=== PATIENT | female | born 1965 | race Caucasian/White ===

== ENCOUNTER 2016-07-15 17:33 | Inpatient (IN) | payer MEDICAID ==
[~2016-07-15] VITALS: Ht 170.2 cm; Wt 141.5 kg
[~2016-07-15 17:33] MED LIST: ALPR.25 PO; AMIT50TA3 PO; AMLO10 PO; ASPI81TA11 PO; ATOR1TAB18 PO; BUME1TAB26 PO; CARV25TA PO; CEPH-460 PO; DRIS50002 PO; FAMO1TAB73 PO; FERR325T PO; GABA300C5 PO; GLIP-158 PO; HUMALOG SQ; HYDR50TA15 PO; LANTUS2P SQ; NITR1SUB3 SL; OXYGENTANK NAS.CANULA
[2016-07-15 17:36] VITALS: BP 181/93; PULSE 80; RESP 16; TEMP 98; O2SAT 95
[2016-07-15] MEDS ORDERED: SODIUM CHLORIDE 0.9% FLUSH 5 ML FLUSH IVF PRN (19:00)
--- NOTE | 2016-07-15 19:05 | PD ---
HPI Chief Complaint: Cardiac Complaint Time Seen by Provider: 19:01 Travel History International Travel<30 days: No Contact w/Intl Traveler<30days: No Traveled to known affect area: No History of Present Illness HPI Patient comes in for evaluation of increasing dyspnea on exertion and swelling in her lower extremities that she feels is going into her abdomen. Patient states she is taking medications as prescribed but is not making as much urine over the past several days and has run out of some of her meds. Patient states she does have intermittent chest pain with this. 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 Patient does not have a primary care doctor locally. Patient reports she has gained approximately 50 pounds since being discharged from the hospital month ago PFSH Past Medical History Hx Anticoagulant Therapy: Yes Cardiovascular Problems: Yes (chf) High Cholesterol: Yes Diabetes: Yes Hypertension: Yes Immunizations Current: No Renal Failure: Yes (d/t dye for cardiac stent insertions) Menopausal: Yes : 3 Para: 3 Miscarriage: 0 Past Surgical History Cardiac Surgery: Yes (STENTS ) Section: Yes Social History Alcohol Use: No Tobacco Use: No Substance Use: No Allergies-Medications (Allergen,Severity, Reaction): Coded Allergies: Lyrica (Verified Allergy, Severe, Anaphylaxis, 07/15/16) Reported Meds & Prescriptions Reported Meds & Active Scripts Active Keflex (Cephalexin) 500 Mg Cap 500 Mg PO Q8H Bumex (Bumetanide) 1 Mg Tab 1 Mg PO BID Ferrous Sulfate 325 Mg Tab 325 Mg PO BID Norvasc (Amlodipine Besylate) 10 Mg Tab 10 Mg PO DAILY Oxygen tank (Oxygen) 1 Ea Tank 2 Liter GERRY.CANULA CONTINUOUS Oxygen Concentrator Portable Gaseous 2 L/min via Nasal Cannula Continuous For 99 months Reported Humalog Inj (Insulin Human Lispro) 1,000 Unit/10 Ml Vial 12 Units SQ BID Lantus Inj (Insulin Glargine) 1,000 Unit/10 Ml Vial 40 Units SQ DAILYAC Pepcid (Famotidine) 40 Mg Tab 40 Mg PO DAILY Nitroglycerin SL (Nitroglycerin) 0.4 Mg Subl 0.4 Mg SL DIRECTED PRN ONE TABLET UNDER THE TONGUE NEEDED FOR CHEST PAIN, MAY REPEAT EVERY FIVE MINUTES FOR A TOTAL OF 3 DOSES OR CALL 911 IF NO RELIEF Hydralazine (Hydralazine HCl) 50 Mg Tab 50 Mg PO TID Take with a meal Gabapentin 300 Mg Cap 300 Mg PO TID Atorvastatin (Atorvastatin Calcium) 80 Mg Tab 80 Mg PO HS Glipizide XL (Glipizide) 2.5 Mg Paula 2.5 Mg PO DAILY Take with breakfast or first main meal of the day Amitriptyline (Amitriptyline HCl) 50 Mg Tab 50 Mg PO HS Carvedilol 25 Mg Tab 25 Mg PO BID Xanax (Alprazolam) 0.25 Mg Tab 0.25 Mg PO BID PRN Aspirin EC (Aspirin) 81 Mg Tabdr 81 Mg PO DAILY Drisdol (Ergocalciferol) 50,000 Unit Cap 50,000 Units PO Q7D ON TUESDAYS Review of Systems Except as stated in HPI: all other systems reviewed are Neg Physical Exam Narrative GENERAL: Well-developed, overly nourished, in no acute distress, and non-ill appearing. SKIN: Warm and dry. HEAD: Atraumatic. Normocephalic. EYES: Pupils equal and round. EOMI. No scleral icterus. No injection or drainage. ENT: No nasal bleeding or discharge. Mucous membranes pink and moist. NECK: Trachea midline. Supple. No nuclear rigidity. CARDIOVASCULAR: Regular rate and rhythm. No murmur appreciated. RESPIRATORY: No accessory muscle use. No respiratory distress. Clear to auscultation. Breath sounds equal bilaterally. GASTROINTESTINAL: Abdomen soft, non-tender, nondistended. Hepatic and splenic margins not palpable. Normal bowel sounds 4. No pulsatile mass. MUSCULOSKELETAL: No obvious deformities. No clubbing. No cyanosis. 3+ pitting edema bilateral lower. Full range of motion. NEUROLOGICAL: Awake and alert. No obvious cranial nerve deficits. Motor grossly within normal limits. Normal speech. PSYCHIATRIC: Appropriate mood and affect; insight and judgment normal. Data Data Last Documented VS Vital Signs Date Time Temp Pulse Resp B/P Pulse Ox O2 Delivery O2 Flow Rate FiO2 07/15/16 17:36 98.0 80 16 181/93 95 Orders Complete Blood Count With Diff (07/15/16 18:59) Comprehensive Metabolic Panel (07/15/16 18:59) B-Type Natriuretic Peptide (07/15/16 18:59) Act Partial Throm Time (Ptt) (07/15/16 18:59) Prothrombin Time / Inr (Pt) (07/15/16 18:59) Ckmb (Isoenzyme) Profile (07/15/16 18:59) Troponin I (07/15/16 18:59) Iv Access Insert/Monitor (07/15/16 18:59) Electrocardiogram (07/15/16 18:59) Ecg Monitoring (07/15/16 18:59) Oximetry (07/15/16 18:59) Oxygen Administration (07/15/16 18:59) Chest, Single Ap (07/15/16 18:59) Sodium Chloride 0.9% Flush (Ns Flush) (07/15/16 19:00) Magnesium (Mg) (07/15/16 19:02) CKMB (07/15/16 19:15) CKMB% (07/15/16 19:15) Bumetanide Inj (Bumex Inj) (07/15/16 20:30) Admit Order (Ed Use Only) (07/15/16 20:40) Labs Laboratory Tests Test 07/15/16 19:15 White Blood Count 5.1 TH/MM3 Red Blood Count 4.67 MIL/MM3 Hemoglobin 10.6 GM/DL Hematocrit 33.6 % Mean Corpuscular Volume 72.0 FL Mean Corpuscular Hemoglobin 22.7 PG Mean Corpuscular Hemoglobin 31.5 % Concent Red Cell Distribution Width 19.6 % Platelet Count 240 TH/MM3 Mean Platelet Volume 9.3 FL Neutrophils (%) (Auto) 59.9 % Lymphocytes (%) (Auto) 20.6 % Monocytes (%) (Auto) 10.4 % Eosinophils (%) (Auto) 7.8 % Basophils (%) (Auto) 1.3 % Neutrophils # (Auto) 3.1 TH/MM3 Lymphocytes # (Auto) 1.1 TH/MM3 Monocytes # (Auto) 0.5 TH/MM3 Eosinophils # (Auto) 0.4 TH/MM3 Basophils # (Auto) 0.1 TH/MM3 CBC Comment AUTO DIFF Differential Comment AUTO DIFF CONFIRMED Platelet Estimate NORMAL Platelet Morphology Comment NORMAL Ovalocytes 1+ Prothrombin Time 11.2 SEC Prothromb Time International 1.0 RATIO Ratio Activated Partial 25.9 SEC Thromboplast Time Sodium Level 141 MEQ/L Potassium Level 4.3 MEQ/L Chloride Level 107 MEQ/L Carbon Dioxide Level 25.2 MEQ/L Anion Gap 9 MEQ/L Blood Urea Nitrogen 27 MG/DL Creatinine 2.94 MG/DL Estimat Glomerular Filtration 17 ML/MIN Rate Random Glucose 136 MG/DL Calcium Level 7.8 MG/DL Magnesium Level 2.2 MG/DL Total Bilirubin 0.4 MG/DL Aspartate Amino Transf 16 U/L (AST/SGOT) Alanine Aminotransferase 16 U/L (ALT/SGPT) Alkaline Phosphatase 149 U/L Total Creatine Kinase 235 U/L Creatine Kinase MB 4.6 NG/ML Creatine Kinase MB % 2.0 % Troponin I 0.11 NG/ML B-Type Natriuretic Peptide 979 PG/ML Total Protein 7.3 GM/DL Albumin 2.6 GM/DL MDM Medical Decision Making Medical Screen Exam Complete: Yes Emergency Medical Condition: Yes Interpretation(s) EKG reviewed by Dr. Chan shows sinus rhythm with ventricular rate of 78. No STEMI. Differential Diagnosis Acute on Chronic CHF exacerbation, acute kidney injury, chronic kidney disease, other Narrative Course Patient was seen and examined. Labs were obtained and reviewed. Patient given a dose of Bumex. Discussed patient with Dr. Chan, who is in agreement with plan of care and disposition. Discussed all findings and plan of care with patient, who is agreeable for admission. Physician Communication Physician Communication [phone] Long, who is agreeable to admit the patient. Diagnosis Primary Impression: Acute exacerbation of CHF (congestive heart failure) Qualified Code: I50.9 - Acute on chronic congestive heart failure, unspecified congestive heart failure type Ezra Goddard Jul 15, 2016 19:05
[2016-07-15 19:37] LABS: AUTOMATED NEUTROPHIL # 3.1 TH/MM3 (1.8-7.7); BASOPHIL # 0.1 TH/MM3 (0-0.2); BASOPHIL % 1.3 % (0.0-2.0); EOSINOPHIL # 0.4 TH/MM3 (0-0.4); EOSINOPHIL % 7.8 % (0.0-4.0); HEMATOCRIT 33.6 % (35.0-46.0); LYMPH % 20.6 % (9.0-44.0); LYMPHOCYTE # 1.1 TH/MM3 (1.0-4.8); MEAN CORPUSCULAR HEMOGLOBIN 22.7 PG (27.0-34.0); MEAN CORPUSCULAR HGB CONC 31.5 % (32.0-36.0); MONO % 10.4 % (0.0-8.0); NEUT % 59.9 % (16.0-70.0); PLATELET COUNT 240 TH/MM3 (150-450); RED BLOOD COUNT 4.67 MIL/MM3 (4.00-5.30); RED CELL DISTRIBUTION WIDTH 19.6 % (11.6-17.2); WHITE BLOOD COUNT 5.1 TH/MM3 (4.0-11.0)
[2016-07-15 19:57] LABS: ALT (GPT) 16 U/L (10-53); ANION GAP 9 MEQ/L (5-15); AST (GOT) 16 U/L (15-37); BICARBONATE 25.2 MEQ/L (21.0-32.0); BLOOD UREA NITROGEN 27 MG/DL (7-18); CHLORIDE 107 MEQ/L (98-107); GLOMERULAR FILTRATION RATE 17 ML/MIN (>89); POTASSIUM 4.3 MEQ/L (3.5-5.1); SODIUM (NA) 141 MEQ/L (136-145)
[2016-07-15 19:59] LABS: ALKALINE PHOSPHATASE 149 U/L (45-117); CREATINE KINASE 235 U/L (26-192); TOTAL BILIRUBIN ADULT 0.4 MG/DL (0.2-1.0)
[2016-07-15 20:01] LABS: HEMO FLAGS AUTO DIFF
--- NOTE | 2016-07-15 20:01 | RADRPT ---
EXAM DATE/TIME: 07/15/2016 19:14 [facility] COMPARISON: No previous studies available for comparison. INDICATIONS : Short of breath. MEDICAL HISTORY : Hypercholesterolemia. Hypertension. Dyspnea. Renal failure. Diabetes. SURGICAL HISTORY : Coronary artery stent. ENCOUNTER: Initial ACUITY: 1 week PAIN SCORE: 0/10 LOCATION: Bilateral chest FINDINGS: A single view of the chest demonstrates minimal basilar density most characteristic of atelectasis. N o effusion. No pneumothorax. The heart size enlarged. CONCLUSION: 1. Basilar atelectasis. No significant effusion. No pneumothorax. George Choi MD on July 15, 2016 at 19:59 Board Certified Radiologist. This report was verified electronically.
[2016-07-15 20:02] LABS: OVALOCYTES 1+ (NORMAL); PLATELET ESTIMATE SMEAR NORMAL (NORMAL); PLATELET MORPHOLOGY NORMAL (NORMAL); SCAN/DIFF AUTO DIFF CONFIRMED
[2016-07-15 20:03] LABS: APTT (PATIENT) 25.9 SEC (24.3-30.1); PROTHROMBIN TIME - PATIENT 11.2 SEC (9.8-11.6)
[2016-07-15 20:15] LABS: CKMB 4.6 NG/ML (0.5-3.6)
[2016-07-15] MEDS ORDERED: BUMETANIDE INJ 1 MG/4 ML VIAL IV PUSH ONE (20:30)
[2016-07-15] MEDS ORDERED: SODIUM CHLORIDE 0.9% FLUSH 5 ML FLUSH FLUSH PRN (20:45)
[2016-07-15] MEDS ORDERED: NALOXONE HCL 0.4 MG/ML AMP IV PRN (20:45)
[2016-07-15] MEDS: SODIUM CHLORIDE 0.9% FLUSH 5 ML FLUSH FLUSH SCH (21:04)
[2016-07-15 21:33] VITALS: BP 160/78; PULSE 73; RESP 20; O2SAT 94
[2016-07-15 22:07] VITALS: BP 147/81; PULSE 70; RESP 20; O2SAT 95
[2016-07-15 22:48] VITALS: PULSE 77
[2016-07-16] VITALS (11 sets, daily range): BP systolic 138–180; BP diastolic 68–89; PULSE 68–88; RESP 18–20; TEMP 97.1–98.2; O2SAT 93–98
[2016-07-16] MEDS ORDERED: HEPARIN SODIUM - IV 10,000 UNITS/10 ML VIAL IV ONE (03:00)
[2016-07-16] MEDS ORDERED: BUMETANIDE INJ 1 MG/4 ML VIAL IV PUSH ONE (03:00)
[2016-07-16] MEDS: HEPARIN-D5W INJ 250 ML IV SCH (03:12)
--- NOTE | 2016-07-16 03:42 | HHI.HP ---
[facility] No Primary Care Physician Admission Diagnosis acute on chronic CHF exacerbation Diagnoses: Chief Complaint: dyspnea, lower extremity swelling Travel History International Travel<30 Days: No Contact w/Intl Traveler <30 Da: No Traveled to Known Affected Are: No History of Present Illness History taken from patient and ED physician. 50 y/o female with a history of chf, depression, htn, dm, and ckd presented to the ED with complaints of dyspnea, swelling in her lower extremities and a 50lb weight gain since last admission 06/03/16. Patient states she has gained 50 lbs in fluid from last admission. She is complaining of increased shortness of breath with intermittent chest pressure with no radiation or associated symptoms. She denies any nausea, vomiting or dizziness. She was admitted on 05/31/16 and diagnosed with CHF, discharged home on on Bumex. Patient states she recently ran out of meds and has not followed up with a doctor due to transportation issues. She does not know what medications she ran out of and does not remember the name of the medications she takes. She states she is not from here and her pcp is 2 hours away and she does not want her kids to take off work to take her to appointments. She is hoping to move back in 2 weeks or so. 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 Despite taking Bumex she states she has not had an increase in urination. Last admission 2d echo showed systolic dysfunction with EF 50%, she was seen by DR. Choudhury, and DR. Medley Review of Systems Constitutional: COMPLAINS OF: Weight gain Respiratory: COMPLAINS OF: Cough, Shortness of breath, DENIES: Sputum production Cardiovascular: COMPLAINS OF: Chest pain, Dyspnea on Exertion, Lower Extremity Edema Gastrointestinal: DENIES: Black stools, Bloody stools, Constipation, Diarrhea, Nausea, Vomiting Genitourinary: DENIES: Hematuria, Dysuria Musculoskeletal: DENIES: Back pain, Neck pain Integumentary: DENIES: Rash Hematologic/lymphatic: DENIES: Lymphadenopathy Immunologic/allergic: DENIES: Urticaria Neurologic: DENIES: Headache Past Family Social History Past Medical History CHF last echo 08/01/15 EF 50% Depression HTN DM Neuropathy Anemia CKD Past Surgical History Cardiac Cath 2015, was taken off Plavix at some point Reported Medications Reported Meds & Active Scripts Active Bumex (Bumetanide) 1 Mg Tab 1 Mg PO BID Ferrous Sulfate 325 Mg Tab 325 Mg PO BID Norvasc (Amlodipine Besylate) 10 Mg Tab 10 Mg PO DAILY Oxygen tank (Oxygen) 1 Ea Tank 2 Liter GERRY.CANULA CONTINUOUS Oxygen Concentrator Portable Gaseous 2 L/min via Nasal Cannula Continuous For 99 months Reported Humalog Inj (Insulin Human Lispro) 1,000 Unit/10 Ml Vial 12 Units SQ BID Lantus Inj (Insulin Glargine) 1,000 Unit/10 Ml Vial 40 Units SQ DAILYAC Pepcid (Famotidine) 40 Mg Tab 40 Mg PO DAILY Nitroglycerin SL (Nitroglycerin) 0.4 Mg Subl 0.4 Mg SL DIRECTED PRN ONE TABLET UNDER THE TONGUE NEEDED FOR CHEST PAIN, MAY REPEAT EVERY FIVE MINUTES FOR A TOTAL OF 3 DOSES OR CALL 911 IF NO RELIEF Hydralazine (Hydralazine HCl) 50 Mg Tab 50 Mg PO TID Take with a meal Gabapentin 300 Mg Cap 300 Mg PO TID Atorvastatin (Atorvastatin Calcium) 80 Mg Tab 80 Mg PO HS Glipizide XL (Glipizide) 2.5 Mg Paula 2.5 Mg PO DAILY Take with breakfast or first main meal of the day Amitriptyline (Amitriptyline HCl) 50 Mg Tab 50 Mg PO HS Carvedilol 25 Mg Tab 25 Mg PO BID Xanax (Alprazolam) 0.25 Mg Tab 0.25 Mg PO BID PRN Aspirin EC (Aspirin) 81 Mg Tabdr 81 Mg PO DAILY Drisdol (Ergocalciferol) 50,000 Unit Cap 50,000 Units PO Q7D ON TUESDAYS Allergies: Coded Allergies: Lyrica (Verified Allergy, Severe, Anaphylaxis, 07/15/16) Active Ordered Medications Current Medications Medications (Trade) Dose Ordered Sig/Christa Route Start Time Stop Time Status Last Admin (NS Flush) 2 ml UNSCH PRN FLUSH 07/15/16 20:45 (NS Flush) 2 ml BID FLUSH 07/15/16 21:00 07/15/16 21:04 (Narcan Inj) 0.4 mg UNSCH PRN IV 07/15/16 20:45 Bumetanide 1 mg 1 mg BID@09,18 IV PUSH 07/16/16 09:00 (Heparin-D5W Inj) 250 ml @ 0 mls/hr TITRATE IV 07/16/16 03:00 07/16/16 03:12 Family History Patient denies any family history Social History Tobacco use: denies Alcohol use: denies Illicit drug use: denies Physical Exam Vital Signs Vital Signs Date Time Temp Pulse Resp B/P Pulse Ox O2 Delivery O2 Flow Rate FiO2 07/16/16 01:53 77 07/16/16 00:00 98.1 88 18 138/77 98 07/15/16 22:48 77 07/15/16 22:07 70 20 147/81 95 Nasal Cannula 2 07/15/16 21:33 73 20 160/78 94 Nasal Cannula 2 07/15/16 21:33 94 Nasal Cannula 2 07/15/16 21:33 94 Nasal Cannula 2 07/15/16 17:36 98.0 80 16 181/93 95 Physical Exam GENERAL: This is a well-nourished, obese patient, with a poor memory. SKIN: Cool and dry. HEAD: Atraumatic. Normocephalic. EYES: Pupils equal round and reactive. ENT: Nose without bleeding, purulent drainage or septal hematoma.Airway patent. NECK: Trachea midline. No JVD CARDIOVASCULAR: Regular rate and rhythm without murmurs, gallops, or rubs. RESPIRATORY: Crackles bilateral bases. No wheezes, rales, or rhonchi. GASTROINTESTINAL: Abdomen soft, non-tender, distended. No guarding. MUSCULOSKELETAL: Extremities with bilateral +2 pitting edema noted. No calf tenderness. NEUROLOGICAL: Awake and alert. Motor and sensory grossly within normal limits. Normal speech. Laboratory Laboratory Tests Test 07/15/16 07/16/16 19:15 01:28 White Blood Count 5.1 Red Blood Count 4.67 Hemoglobin 10.6 Hematocrit 33.6 Mean Corpuscular Volume 72.0 Mean Corpuscular Hemoglobin 22.7 Mean Corpuscular Hemoglobin 31.5 Concent Red Cell Distribution Width 19.6 Platelet Count 240 Mean Platelet Volume 9.3 Neutrophils (%) (Auto) 59.9 Lymphocytes (%) (Auto) 20.6 Monocytes (%) (Auto) 10.4 Eosinophils (%) (Auto) 7.8 Basophils (%) (Auto) 1.3 Neutrophils # (Auto) 3.1 Lymphocytes # (Auto) 1.1 Monocytes # (Auto) 0.5 Eosinophils # (Auto) 0.4 Basophils # (Auto) 0.1 CBC Comment AUTO DIFF Differential Comment AUTO DIFF CONFIRMED Platelet Estimate NORMAL Platelet Morphology Comment NORMAL Ovalocytes 1+ Prothrombin Time 11.2 Prothromb Time International 1.0 Ratio Activated Partial 25.9 Thromboplast Time Sodium Level 141 Potassium Level 4.3 Chloride Level 107 Carbon Dioxide Level 25.2 Anion Gap 9 Blood Urea Nitrogen 27 Creatinine 2.94 Estimat Glomerular Filtration 17 Rate Random Glucose 136 Calcium Level 7.8 Magnesium Level 2.2 Total Bilirubin 0.4 Aspartate Amino Transf 16 (AST/SGOT) Alanine Aminotransferase 16 (ALT/SGPT) Alkaline Phosphatase 149 Total Creatine Kinase 235 166 Creatine Kinase MB 4.6 Creatine Kinase MB % 2.0 Troponin I 0.11 0.14 B-Type Natriuretic Peptide 979 Total Protein 7.3 Albumin 2.6 Result Diagram: 07/15/16191407/15/161914 Imaging Last Impressions Chest X-Ray 07/15/16 1859 Signed Impressions: Service Date/Time: Friday, July 15, 2016 19:14 - CONCLUSION: 1. Basilar atelectasis. No significant effusion. No pneumothorax. George Choi MD Assessment and Plan Problem List: (1) Acute exacerbation of CHF (congestive heart failure) ICD Code: I50.9 Status: Acute (2) Elevated troponin ICD Code: R79.89 Status: Acute (3) HTN (hypertension) ICD Code: I10 Status: Chronic (4) Diabetes ICD Code: E11.9 Status: Chronic Assessment and Plan 50 y/o female with a history of chf, depression, htn, dm, gerd and ckd presented with: Acute exacerbation of CHf Labs: BNP 979 Chest xray shows basilar atelectasis -Bumex IV BID -Consult nephrology -Restart home med coreg Elevated troponin, likely due to ckd Labs: troponin .11 and .14 -Consult Cardiology -Serial troponin -Heparin drip ordered HTN, chronic -monitor vitals/Tele -Restart home meds Norvasc and hydralazine DM, chronic -Accu checks AC/HS w/SSI -Diabetic/heart healthy diet DVT prophylaxis: Heparin Written by Bve SEGUNDO, acting as scribe for Dr. Long on 07/16/16 at 0350. The documentation accurately reflects the work performed [id number] and decisions made by me and the physician Dr Long on 07/16/16. The documentation accurately reflects the work performed [id number] by me on at 0350 Discussed Condition With Patient and ED physician Physician Certification 2 Midnight Certification Type: Admission for Inpatient Services Order for Inpatient Services The services are ordered in accordance with Medicare regulations or non- Medicare payer requirements, as applicable. In the case of services not specified as inpatient-only, they are appropriately provided as inpatient services in accordance with the 2-midnight benchmark. Estimated LOS (days): 3 days is the estimated time the patient will need to remain in the hospital, assuming treatment plan goals are met and no additional complications. Post-Hospital Plan: Home Problem Qualifiers (1) Acute exacerbation of CHF (congestive heart failure): Qualified Code: I50.9 - Acute on chronic congestive heart failure, unspecified congestive heart failure type (2) Diabetes: Bev Merritt Jul 16, 2016 03:42 Sebas Long MD Jul 16, 2016 08:02
[2016-07-16] MEDS: INSULIN ASPART SUPPLEMENTAL SCALE SQ SCH ×4 (06:24→20:47)
[2016-07-16] MEDS ORDERED: GLUCAGON 1 MG/ML VIAL OTHER PRN (06:30)
[2016-07-16] MEDS ORDERED: DEXTROSE 50% IN WATER 50 ML VIAL(D50) IV PUSH PRN (06:30)
[2016-07-16 07:16] LABS: AUTOMATED NEUTROPHIL # 2.1 TH/MM3 (1.8-7.7); EOSINOPHIL # 0.3 TH/MM3 (0-0.4); EOSINOPHIL % 8.3 % (0.0-4.0); HEMATOCRIT 30.5 % (35.0-46.0); LYMPH % 26.5 % (9.0-44.0); MEAN CELL VOLUME 71.7 FL (80.0-100.0); MEAN CORPUSCULAR HEMOGLOBIN 22.4 PG (27.0-34.0); MEAN CORPUSCULAR HGB CONC 31.2 % (32.0-36.0); MONO % 10.9 % (0.0-8.0); NEUT % 53.3 % (16.0-70.0); PLATELET COUNT 200 TH/MM3 (150-450); RED BLOOD COUNT 4.25 MIL/MM3 (4.00-5.30); RED CELL DISTRIBUTION WIDTH 19.1 % (11.6-17.2); WHITE BLOOD COUNT 3.9 TH/MM3 (4.0-11.0)
[2016-07-16 07:18] LABS: HEMO FLAGS AUTO DIFF
[2016-07-16 08:42] LABS: PLATELET ESTIMATE SMEAR NORMAL (NORMAL); PLATELET MORPHOLOGY NORMAL (NORMAL); SCAN/DIFF AUTO DIFF CONFIRMED
[2016-07-16] MEDS: SODIUM CHLORIDE 0.9% FLUSH 5 ML FLUSH FLUSH SCH ×2 (09:00→21:00)
[2016-07-16] MEDS: GABAPENTIN 300 MG CAP PO SCH ×3 (09:17→16:54)
[2016-07-16] MEDS: FERROUS SULFATE 325 MG (65 MG ELEMENTAL IRON) TAB PO SCH ×2 (09:17→20:47)
[2016-07-16] MEDS: BUMETANIDE INJ 1 MG/4 ML VIAL IV PUSH SCH ×2 (09:17→16:54)
[2016-07-16] MEDS: ASPIRIN EC 81 MG TABEC PO SCH (09:18)
[2016-07-16] MEDS: CARVEDILOL 12.5 MG TAB PO SCH ×2 (09:18→20:47)
[2016-07-16] MEDS: hydrALAZINE HCL 50 MG TAB PO SCH ×3 (09:18→16:54)
[2016-07-16 10:42] LABS: APTT (PATIENT) 26.9 SEC (24.3-30.1)
[2016-07-16] MEDS ORDERED: LISINOPRIL 20 MG TAB PO ONE (11:00)
--- NOTE | 2016-07-16 11:07 | PD.CONS ---
HPI Service Nephrology Consult Requested By Dr. Long Reason for Consult Nephrotic syndrome due to diabetes, CKD Primary Care Physician No Primary Care Physician History of Present Illness Patient is a 50-year-old female with a history of diabetes for about 15 years ago, diabetic retinopathy, chronic kidney disease with a creatinine of 2.9 in May who has gained the above 50 pounds in short period of time and complaining of abdominal distention bilateral leg edema, her creatinine remains at 2.9, she was evaluated by Dr. Medley back in May and the patient never followed up as she has to be referred to nephrology, she has not established with a primary care physician yet. Review of Systems Constitutional: COMPLAINS OF: Fatigue, Weight gain Respiratory: COMPLAINS OF: Shortness of breath Cardiovascular: COMPLAINS OF: Lower Extremity Edema Gastrointestinal: COMPLAINS OF: Abdominal pain, Constipation Musculoskeletal: COMPLAINS OF: Joint pain, Muscle aches, Stiffness Neurologic: COMPLAINS OF: Abnormal gait Psychiatric: COMPLAINS OF: Anxiety Past Family Social History Allergies: Coded Allergies: Lyrica (Verified Allergy, Severe, Anaphylaxis, 07/15/16) Past Medical History Diabetes for 15 years Chronic kidney disease Nephrotic range proteinuria Hypertension Anemia Coronary artery disease Hyperlipidemia Peripheral neuropathy Diabetic retinopathy Past Surgical History She has injection to the eyes Coronary artery stents Reported Medications Reported Meds & Active Scripts Active Bumex (Bumetanide) 1 Mg Tab 1 Mg PO BID Ferrous Sulfate 325 Mg Tab 325 Mg PO BID Norvasc (Amlodipine Besylate) 10 Mg Tab 10 Mg PO DAILY Oxygen tank (Oxygen) 1 Ea Tank 2 Liter GERRY.CANULA CONTINUOUS Oxygen Concentrator Portable Gaseous 2 L/min via Nasal Cannula Continuous For 99 months Reported Humalog Inj (Insulin Human Lispro) 1,000 Unit/10 Ml Vial 12 Units SQ BID Lantus Inj (Insulin Glargine) 1,000 Unit/10 Ml Vial 40 Units SQ DAILYAC Pepcid (Famotidine) 40 Mg Tab 40 Mg PO DAILY Nitroglycerin SL (Nitroglycerin) 0.4 Mg Subl 0.4 Mg SL DIRECTED PRN ONE TABLET UNDER THE TONGUE NEEDED FOR CHEST PAIN, MAY REPEAT EVERY FIVE MINUTES FOR A TOTAL OF 3 DOSES OR CALL 911 IF NO RELIEF Hydralazine (Hydralazine HCl) 50 Mg Tab 50 Mg PO TID Take with a meal Gabapentin 300 Mg Cap 300 Mg PO TID Atorvastatin (Atorvastatin Calcium) 80 Mg Tab 80 Mg PO HS Glipizide XL (Glipizide) 2.5 Mg Paula 2.5 Mg PO DAILY Take with breakfast or first main meal of the day Amitriptyline (Amitriptyline HCl) 50 Mg Tab 50 Mg PO HS Carvedilol 25 Mg Tab 25 Mg PO BID Xanax (Alprazolam) 0.25 Mg Tab 0.25 Mg PO BID PRN Aspirin EC (Aspirin) 81 Mg Tabdr 81 Mg PO DAILY Drisdol (Ergocalciferol) 50,000 Unit Cap 50,000 Units PO Q7D ON TUESDAYS Active Ordered Medications Current Medications Medications (Trade) Dose Ordered Sig/Christa Route Start Time Stop Time Status Last Admin (NS Flush) 2 ml UNSCH PRN FLUSH 07/15/16 20:45 (NS Flush) 2 ml BID FLUSH 07/15/16 21:00 07/15/16 21:04 (Narcan Inj) 0.4 mg UNSCH PRN IV 07/15/16 20:45 Bumetanide 1 mg 1 mg BID@09,18 IV PUSH 07/16/16 09:00 07/16/16 09:17 (Heparin-D5W Inj) 250 ml @ 0 mls/hr TITRATE IV 07/16/16 03:00 07/18/16 02:59 07/16/16 03:12 (Elavil) 50 mg HS PO 07/16/16 21:00 (Norvasc) 10 mg DAILY PO 07/16/16 09:00 07/16/16 09:18 (Ecotrin Ec) 81 mg DAILY PO 07/16/16 09:00 07/16/16 09:18 (Lipitor) 80 mg HS PO 07/16/16 21:00 (Coreg) 25 mg BID PO 07/16/16 09:00 07/16/16 09:18 (Ferrous Sulfate) 325 mg BID PO 07/16/16 09:00 07/16/16 09:17 (Neurontin) 300 mg TID PO 07/16/16 09:00 07/16/16 09:17 (Apresoline) 50 mg TID PO 07/16/16 09:00 07/16/16 09:18 (D50w (Vial) Inj) 25 ml UNSCH PRN IV PUSH 07/16/16 06:30 (Glucagon Inj) 1 mg UNSCH PRN OTHER 07/16/16 06:30 Family History Diabetes runs in the family signed the mother hasn't then she had kidney disease as well Heart disease runs from the father's side Social History She used to smoke about 10 years ago. Smoking denies any significant alcohol intake Physical Exam Vital Signs Vital Signs Date Time Temp Pulse Resp B/P Pulse Ox O2 Delivery O2 Flow Rate FiO2 07/16/16 08:17 72 07/16/16 07:41 97.9 71 20 180/76 93 07/16/16 04:00 98.0 87 18 140/69 97 07/16/16 01:53 77 07/16/16 00:00 98.1 88 18 138/77 98 07/15/16 22:48 77 07/15/16 22:07 70 20 147/81 95 Nasal Cannula 2 07/15/16 21:33 73 20 160/78 94 Nasal Cannula 2 07/15/16 21:33 94 Nasal Cannula 2 07/15/16 21:33 94 Nasal Cannula 2 07/15/16 17:36 98.0 80 16 181/93 95 Physical Exam GENERAL: Well-nourished, well-developed morbidly obese patient. SKIN: Warm and dry. HEAD: Normocephalic. EYES: No scleral icterus. No injection or drainage. NECK: Supple, trachea midline. No JVD or lymphadenopathy. CARDIOVASCULAR: Regular rate and rhythm without murmurs, gallops, or rubs. RESPIRATORY: Breath sounds equal bilaterally. No accessory muscle use. GASTROINTESTINAL: Abdomen soft, distended. EXTREMITIES: No cyanosis, 3+ edema. NEUROLOGICAL: Awake, alert, and oriented x 3. Non-focal. Laboratory Laboratory Tests Test 07/15/16 07/16/16 07/16/16 07/16/16 19:15 01:28 06:10 10:14 White Blood Count 5.1 3.9 Red Blood Count 4.67 4.25 Hemoglobin 10.6 9.5 Hematocrit 33.6 30.5 Mean Corpuscular Volume 72.0 71.7 Mean Corpuscular Hemoglobin 22.7 22.4 Mean Corpuscular Hemoglobin 31.5 31.2 Concent Red Cell Distribution Width 19.6 19.1 Platelet Count 240 200 Mean Platelet Volume 9.3 9.2 Neutrophils (%) (Auto) 59.9 53.3 Lymphocytes (%) (Auto) 20.6 26.5 Monocytes (%) (Auto) 10.4 10.9 Eosinophils (%) (Auto) 7.8 8.3 Basophils (%) (Auto) 1.3 1.0 Neutrophils # (Auto) 3.1 2.1 Lymphocytes # (Auto) 1.1 1.0 Monocytes # (Auto) 0.5 0.4 Eosinophils # (Auto) 0.4 0.3 Basophils # (Auto) 0.1 0.0 CBC Comment AUTO DIFF AUTO DIFF Differential Comment AUTO DIFF AUTO DIFF CONFIRMED CONFIRMED Platelet Estimate NORMAL NORMAL Platelet Morphology Comment NORMAL NORMAL Ovalocytes 1+ Prothrombin Time 11.2 Prothromb Time International 1.0 Ratio Activated Partial 25.9 26.9 Thromboplast Time Sodium Level 141 141 Potassium Level 4.3 4.0 Chloride Level 107 107 Carbon Dioxide Level 25.2 27.0 Anion Gap 9 7 Blood Urea Nitrogen 27 26 Creatinine 2.94 2.95 Estimat Glomerular Filtration 17 17 Rate Random Glucose 136 132 Calcium Level 7.8 7.7 Magnesium Level 2.2 Total Bilirubin 0.4 Aspartate Amino Transf 16 (AST/SGOT) Alanine Aminotransferase 16 (ALT/SGPT) Alkaline Phosphatase 149 Total Creatine Kinase 235 166 150 Creatine Kinase MB 4.6 Creatine Kinase MB % 2.0 Troponin I 0.11 0.14 0.17 B-Type Natriuretic Peptide 979 Total Protein 7.3 Albumin 2.6 Result Diagram: 07/16/16 0610 07/16/16 0610 Imaging Last Impressions Chest X-Ray 07/15/16 1859 Signed Impressions: Service Date/Time: Friday, July 15, 2016 19:14 - CONCLUSION: 1. Basilar atelectasis. No significant effusion. No pneumothorax. George Choi MD Assessment and Plan Problem List: (1) Stage 4 chronic kidney disease Plan: Patient with advanced kidney disease and the has been evaluated by Dr. Medley in May, I will order MATEUS, protein electrophoreses a urine protein to creatinine ratio she needs to be considered for a Alexis inhibition even in this advanced age and benefits are reduction of protein loss Patient is told that she is nearing end-stage renal disease and dialysis may be needed in the future but for now we will try diuretics I will add albumin prior to Bumex to see if we can diurese her effectively to get weight off. (2) Nephrotic syndrome Plan: Protein to creatinine ratio and addition of alexis inhibitor (3) Acute exacerbation of CHF (congestive heart failure) Plan: This is likely due to chronic kidney disease and diastolic dysfunction (4) Diabetes Plan: Advance manifestations diabetic nephropathy, retinopathy and neuropathy (5) HTN (hypertension) Plan: Continue to monitor Problem Qualifiers (1) Acute exacerbation of CHF (congestive heart failure): Qualified Code: I50.9 - Acute on chronic congestive heart failure, unspecified congestive heart failure type (2) Diabetes: (3) HTN (hypertension): Qualified Code: I10 - Essential hypertension Ebony Garcia MD Jul 16, 2016 11:07
--- NOTE | 2016-07-16 11:44 | MB ---
cc: MEME CHURCH DO DATE OF CONSULTATION July 16, 2016 REASON FOR CONSULTATION Edema. Mildly elevated troponin. HISTORY OF PRESENT ILLNESS Patricia Carnes is a pleasant 50-year-old female who presented to [facility] Emergency Room on July 15, 2016, due to edema. She was previously here in the middle part of May due to diaphoresis, left-sided chest pain and shortness of breath. She states that this episode is much different than the one in May and that she has just noticed swelling in her lower extremities. She denies any chest pain to me but has noticed a possible small increase in her shortness of breath. She denies any nausea, vomiting diaphoresis or dizziness. She previously was here and discharged on Bumex. She admits to a running out of her medications around two weeks ago and not following up with her doctor due to transportation issues. She has been trying to avoid salt, and states that she cooks while here and does not feel that she eats an excessive amount of salt. PAST MEDICAL HISTORY 1. Coronary artery disease. 2. Diabetes mellitus. 3. Hypertension. 4. Chronic kidney disease Stage IV. 5. Obesity. PAST SURGICAL HISTORY 1. Cardiac catheterization (November 20, 2015, at [place]) with placement of a Resolute drug-eluting stent to the RCA (2.5 x 30), placement of a Resolute drug-eluting stent to left circumflex (3.5 x 38). ALLERGIES LYRICA. MEDICATIONS (The patient was previously on multiple medications upon discharge which she has not had for the past two weeks due to inability to get to her doctor). 1. Gabapentin 300 mg t.i.d. 1. Amitriptyline 50 mg every night 2. Xanax 0.25 mg b.i.d. as needed for anxiety. 3. Coreg 25 mg b.i.d. 4. Norvasc 10 mg daily 5. Hydralazine 50 mg t.i.d. 6. Lipitor 80 mg every night 7. Pepcid 40 mg daily 8. Lantus 40 units daily 9. Lispro 12 units b.i.d. 10. Iron 325 mg b.i.d. 11. Bumex 1 mg b.i.d. 12. Nitro sublingual as needed. 13. Aspirin 81 mg daily. 14. Glipizide XL 2.5 mg daily. SOCIAL HISTORY Denies alcohol, tobacco abuse or substance abuse. FAMILY HISTORY Denies premature coronary artery disease or sudden cardiac within the family. REVIEW OF SYSTEMS 14 systems were reviewed including osteopathic pertinent positives and negatives above, otherwise negative. PHYSICAL EXAMINATION VITAL SIGNS: Temperature 97.9, heart rate 71, blood pressure 180/76, respirations 20, pulse ox 93%. IN GENERAL: The patient appears older than stated age. No acute distress. Alert, awake and oriented x 3. Extraocular muscles intact. Mucous membranes moist. NECK: Supple. No JVD at 45 degrees. No carotid bruits heard bilaterally. Carotid upstroke is brisk in nature. HEART: Regular rate and rhythm. Positive first and second heart sounds with a 1/6 holosystolic murmur noted at the apex. LUNGS: Decreased breath sounds bilaterally but no overt wheezes, rales or rhonchi. ABDOMEN: Soft, non-tender, non-distended. No organomegaly noted. EXTREMITIES: 2+ pitting edema bilaterally. No clubbing or cyanosis noted. SKIN: Warm, dry and intact. NEUROLOGIC: No focal deficits. OSTEOPATHIC EXAM: Mild lordosis. No kyphoscoliosis or paraspinal tender points. LABORATORY WORK Hemoglobin 9.5, hematocrit 30.5, platelets 200. Potassium 4.0, BUN 26, creatinine 2.95. Troponin 0.17. BNP 797. ELECTROCARDIOGRAM (July 16, 2016 at 0651) Normal sinus rhythm at 72 beats per minute, poor R-wave progression, cannot rule out septal and anterior NJ. Possible old inferior NJ. Nonspecific ST-T wave changes. IMPRESSION 1. Minimally elevated troponin due most likely to fluid overload state, hypertensive episode and acute heart failure. 2. Acute heart failure on chronic heart failure due to not taking diuretics over the past two weeks. 3. Chronic kidney disease Stage IV. 4. Accelerated hypertension due to not take her medications. 5. Coronary artery disease with recent coronary stenting (November 2015). 6. Diabetes mellitus. 7. Anemia probably due to chronic kidney disease. Morbid obesity with a BMI of 36.3. RECOMMENDATIONS 1. Patricia recently ran out of her medications and has not been taking her blood pressure medications or diuretics recently it appears, leading to a fluid overload state and elevated blood pressure. 2. Her fluid overload state/acute on chronic heart failure is most likely due to her chronic kidney disease and running out of her diuretics. 3. We will place her on IV diuretics. 4. She does have a minimally elevated troponin and this is most likely due to her chronic kidney disease, hypertensive episode and fluid overload state. I did offer once again for coronary visualization due to a previous stress test showing a small defect of the lateral wall as well as her acute heart failure state, but she would like to hold off as she has a concern that she would end up on dialysis and is not ready for that. 5. We will continue on medical management for her coronary artery disease. 6. I explained to her the necessity of following up with a primary care physician, area development consultant and turbine attendant, whether it be here or in the [facility]. I also explained the importance of continuing her medications. 7. She did have a minimally elevated troponin so we will keep her on heparin for 48 hours, this can be discontinued tomorrow. Thank you for allowing me to see Patricai Carnes. It there are any questions, please do not hesitate to call. Meme Church DO VGP/SSB /9:27 AM 11:23 AM RADHA
[2016-07-16 12:30] LABS: APTT (PATIENT) 26.6 SEC (24.3-30.1)
--- NOTE | 2016-07-16 12:33 | HHI.PR ---
Subjective Remarks Follow-up for volume overload. The patient reports that he is breathing better today than at admission. She has lower extremity swelling, possibly improved a little since admission. She reports good urine output. Wants to go home as soon as possible. Objective Vitals Vital Signs Date Time Temp Pulse Resp B/P Pulse Ox O2 Delivery O2 Flow Rate FiO2 07/16/16 11:37 98.1 72 20 173/81 93 07/16/16 08:17 72 07/16/16 07:41 97.9 71 20 180/76 93 07/16/16 04:00 98.0 87 18 140/69 97 07/16/16 01:53 77 07/16/16 00:00 98.1 88 18 138/77 98 07/15/16 22:48 77 07/15/16 22:07 70 20 147/81 95 Nasal Cannula 2 07/15/16 21:33 73 20 160/78 94 Nasal Cannula 2 07/15/16 21:33 94 Nasal Cannula 2 07/15/16 21:33 94 Nasal Cannula 2 07/15/16 17:36 98.0 80 16 181/93 95 I/O 07/15/16 07/15/16 07/15/16 07/16/16 07/16/16 07/16/16 07:00 15:00 23:00 07:00 15:00 23:00 Output Total 900 ml 900 ml Balance -900 ml -900 ml Output Urine Total 900 ml 900 ml Result Diagram: 07/16/16 0610 07/16/16 0610 Imaging Last Impressions Chest X-Ray 07/15/16 0049 Signed Impressions: Service Date/Time: Friday, July 15, 2016 19:14 - CONCLUSION: 1. Basilar atelectasis. No significant effusion. No pneumothorax. George Choi MD Objective Remarks GENERAL: Well-developed well-nourished. In no acute distress. SKIN: Warm and dry. No lesions noted. HEENT: Normocephalic. Pupils equal and round. Mucous membranes pink and moist. CARDIOVASCULAR: Regular rate and rhythm. No murmur appreciated. RESPIRATORY: No accessory muscle use. Clear to auscultation. Breath sounds equal bilaterally. Poor breath sounds in the bases. GASTROINTESTINAL: Abdomen soft, non-tender, nondistended. Bowel sounds x4. MUSCULOSKELETAL: No obvious deformities. No clubbing or cyanosis. 2+ pitting edema. NEUROLOGICAL: Awake and alert. No focal neurological deficits. Moves upper and lower extremities spontaneously. Normal speech. PSYCHIATRIC: Appropriate mood and affect; insight and judgment normal. A/P Problem List: (1) Acute exacerbation of CHF (congestive heart failure) ICD Code: I50.9 Status: Acute (2) Elevated troponin ICD Code: R79.89 Status: Acute (3) HTN (hypertension) ICD Code: I10 Status: Chronic (4) Diabetes ICD Code: E11.9 Status: Chronic Assessment and Plan 50 y/o female with a history of chf, depression, htn, dm, gerd and ckd presented with: Acute exacerbation of chronic diastolic CHF Labs: BNP 979 Chest xray shows basilar atelectasis. Echocardiogram 05/28/16 showed normal systolic function with EF 50% -IV diuresis -Consulted cardiology and nephrology -Continue home Coreg. Lisinopril added. -Fluid and sodium restrictions, patient educated Elevated troponin, likely due to ckd Labs: troponin 0.11, 0.14, 0.17 -Consulted Cardiology, discussed with Dr. Choudhury, recommends medical management at this time, no intervention -Heparin drip for now -Aspirin, Statin Chronic kidney disease stage IV: Labs: Creatinine 2.94, previously 2.95 on 06/03/16. -Nephrology consulted, appreciate input, workup in progress -Cautious diuresis, albumin added HTN, chronic -monitor vitals/Tele -continue Norvasc and hydralazine DM, chronic -Accu checks AC/HS w/SSI -Diabetic/heart healthy diet DVT prophylaxis: Heparin Discharge Planning Disposition pending continued clinical improvement. Problem Qualifiers (1) Acute exacerbation of CHF (congestive heart failure): Qualified Code: I50.9 - Acute on chronic congestive heart failure, unspecified congestive heart failure type (2) HTN (hypertension): Qualified Code: I10 - Essential hypertension (3) Diabetes: Mane Goodman Jul 16, 2016 12:32 Soo Bowens MD Jul 16, 2016 14:07
[2016-07-16 12:48] LABS: TOTAL PROTEIN SPE 5.9 GM/DL (6.0-7.6)
--- NOTE | 2016-07-16 13:50 | EKG ---
Date Performed: 07/16/2016 Time Performed: 01:34:17 PTAGE: 50 years EKG: Sinus rhythm POSSIBLE ANTERIOR MYOCARDIAL INFARCTION MODERATE T-WAVE ABNORMALITY, CONSIDER LATERAL ISCHEMIA ABNOR MAL ECG Compared to prior tracing no significant change PREVIOUS TRACING : 07/15/2016 19.23 DOCTOR: Michelle Kennedy Interpretating Date/Time 07/16/2016 13:48:13
--- NOTE | 2016-07-16 13:50 | EKG ---
Date Performed: 07/15/2016 Time Performed: 19:23:01 PTAGE: 50 years EKG: Sinus rhythm POSSIBLE ANTERIOR MYOCARDIAL INFARCTION INFERIOR MYOCARDIAL INFARCTION ABNORMAL ECG Compared to prio r tracing no significant change PREVIOUS TRACING : 05/27/2016 20.57.37 DOCTOR: Michelle Kennedy Interpretating Date/Time 07/16/2016 13:48:02
--- NOTE | 2016-07-16 14:13 | EKG ---
Date Performed: 07/16/2016 Time Performed: 06:51:50 PTAGE: 50 years EKG: Sinus rhythm POSSIBLE ANTERIOR MYOCARDIAL INFARCTION INFERIOR MYOCARDIAL INFARCTION MODERATE T-WAVE ABNORMALITY, CONSIDER LATERAL ISCHEMIA ABNORMAL ECG Compared to the PREVIOUS TRACING , the patient has developed abnormal R wave transition. EKG is otherwis e without significant serial change. Early R wave transition in V2 is new and may be a function of le ad placement but clinical correlation would be advised PREVIOUS TRACIN07/16/2016 01.34 DOCTOR: Michelle Kennedy Interpretating Date/Time 07/16/2016 14:13:03
[2016-07-16] MEDS: ALBUMIN HUMAN 25% 25 GM/100 ML BAGP IV SCH (16:54)
[2016-07-16 18:58] LABS: APTT (PATIENT) 26.6 SEC (24.3-30.1)
[2016-07-16] MEDS: AMITRIPTYLINE HCL 50 MG TAB PO SCH (20:47)
[2016-07-16] MEDS: ATORVASTATIN 80 MG TAB PO SCH (20:47)
[2016-07-16 21:45] LABS: ALBUMIN SPE 2.65 GM/DL (3.50-5.00); ALPHA 1 GLOBULIN 0.29 GM/DL (0.11-0.29)
[2016-07-16 21:46] LABS: ALPHA 2 GLOBULIN 0.87 GM/DL (0.22-1.00); BETA GLOBULINS (SPE) 0.73 GM/DL (0.53-1.03)
[2016-07-16] MEDS: ACETAMINOPHEN/HYDROcodone 325 MG/5 MG TAB PO PRN (23:56)
[2016-07-17] VITALS (9 sets, daily range): BP systolic 135–159; BP diastolic 71–95; PULSE 54–74; RESP 16–21; TEMP 97.6–98.7; O2SAT 3–99
[2016-07-17 00:45] LABS: APTT (PATIENT) 28.1 SEC (24.3-30.1)
[2016-07-17] MEDS: HEPARIN-D5W INJ 250 ML IV SCH (04:17)
[2016-07-17] MEDS: INSULIN ASPART SUPPLEMENTAL SCALE SQ SCH ×4 (06:00→20:39)
[2016-07-17 08:36] LABS: AUTOMATED NEUTROPHIL # 1.9 TH/MM3 (1.8-7.7); BASOPHIL % 1.3 % (0.0-2.0); EOSINOPHIL # 0.2 TH/MM3 (0-0.4); EOSINOPHIL % 6.1 % (0.0-4.0); LYMPH % 25.6 % (9.0-44.0); LYMPHOCYTE # 0.9 TH/MM3 (1.0-4.8); MEAN CELL VOLUME 72.3 FL (80.0-100.0); MEAN CORPUSCULAR HEMOGLOBIN 22.5 PG (27.0-34.0); MEAN CORPUSCULAR HGB CONC 31.2 % (32.0-36.0); MONO % 13.3 % (0.0-8.0); NEUT % 53.7 % (16.0-70.0); PLATELET COUNT 178 TH/MM3 (150-450); RED CELL DISTRIBUTION WIDTH 19.3 % (11.6-17.2); WHITE BLOOD COUNT 3.6 TH/MM3 (4.0-11.0)
[2016-07-17 08:45] LABS: HEMO FLAGS AUTO DIFF
[2016-07-17 08:46] LABS: APTT (PATIENT) 29.4 SEC (24.3-30.1)
[2016-07-17 08:56] LABS: BICARBONATE 24.6 MEQ/L (21.0-32.0); POTASSIUM 4.3 MEQ/L (3.5-5.1)
[2016-07-17] MEDS: ALBUMIN HUMAN 25% 25 GM/100 ML BAGP IV SCH ×2 (08:57→19:04)
[2016-07-17] MEDS: CARVEDILOL 12.5 MG TAB PO SCH ×2 (09:00→20:38)
[2016-07-17] MEDS: SODIUM CHLORIDE 0.9% FLUSH 5 ML FLUSH FLUSH SCH ×2 (09:00→20:38)
[2016-07-17] MEDS: BUMETANIDE INJ 1 MG/4 ML VIAL IV PUSH SCH ×2 (09:00→19:03)
[2016-07-17] MEDS: FERROUS SULFATE 325 MG (65 MG ELEMENTAL IRON) TAB PO SCH ×2 (09:00→20:38)
[2016-07-17] MEDS: GABAPENTIN 300 MG CAP PO SCH ×3 (09:00→19:03)
[2016-07-17] MEDS: ASPIRIN EC 81 MG TABEC PO SCH (09:00)
[2016-07-17] MEDS: LISINOPRIL 20 MG TAB PO SCH (09:00)
[2016-07-17] MEDS: hydrALAZINE HCL 50 MG TAB PO SCH ×3 (09:00→19:03)
[2016-07-17 09:28] LABS: KERATOCYTES OCC (NORMAL); OVALOCYTES 1+ (NORMAL); PLATELET ESTIMATE SMEAR NORMAL (NORMAL); PLATELET MORPHOLOGY CLUMPED (NORMAL); SCAN/DIFF AUTO DIFF CONFIRMED
--- NOTE | 2016-07-17 09:30 | HHI.PR ---
Subjective Remarks Follow-up for volume overload/CHF exacerbation. The patient reports she continues to feel better today. Shortness of breath is improving. Lower extremity swelling is improving. She is on oxygen at home. She has a cough at night. She denies any fever, chills, nausea, vomiting, chest pain. She recently relocated to this area and plans to be here for the next 2 years, would like referrals to cardiology and nephrology as outpatient. Objective Vitals Vital Signs Date Time Temp Pulse Resp B/P Pulse Ox O2 Delivery O2 Flow Rate FiO2 07/17/16 09:22 95 Nasal Cannula 2.00 07/17/16 08:12 62 18 135/71 95 07/17/16 03:05 98.0 60 18 159/76 96 07/17/16 01:19 16 07/16/16 23:17 97.1 68 20 162/79 93 07/16/16 20:38 74 07/16/16 19:35 93 Nasal Cannula 2.00 07/16/16 17:14 71 18 160/89 95 07/16/16 14:39 98.2 68 20 148/68 93 07/16/16 11:37 98.1 72 20 173/81 93 I/O 07/16/16 07/16/16 07/16/16 07/17/16 07/17/16 07/17/16 07:00 15:00 23:00 07:00 15:00 23:00 Intake Total 720 ml Output Total 900 ml 200 ml 500 ml Balance -900 ml 520 ml -500 ml Intake Oral 720 ml Output Urine Total 900 ml 200 ml 500 ml # Voids 3 Result Diagram: 07/17/16 0802 07/17/16 0802 Imaging Last Impressions Chest X-Ray 07/15/16 4655 Signed Impressions: Service Date/Time: Friday, July 15, 2016 19:14 - CONCLUSION: 1. Basilar atelectasis. No significant effusion. No pneumothorax. George Choi MD Objective Remarks GENERAL: Well-developed well-nourished. Morbidly obese. In no acute distress. SKIN: Warm and dry. No lesions noted. HEENT: Normocephalic. Pupils equal and round. Mucous membranes pink and moist. CARDIOVASCULAR: Regular rate and rhythm. No murmur appreciated. RESPIRATORY: No accessory muscle use. Clear to auscultation. Breath sounds equal bilaterally. Decreased breath sounds in the lung bases. GASTROINTESTINAL: Abdomen soft, non-tender, nondistended. Bowel sounds x4. MUSCULOSKELETAL: No obvious deformities. No clubbing or cyanosis. 2+ pitting edema bilaterally up to the knees. NEUROLOGICAL: Awake and alert. No focal neurological deficits. Moves upper and lower extremities spontaneously. Normal speech. PSYCHIATRIC: Appropriate mood and affect; insight and judgment normal. A/P Problem List: (1) Acute exacerbation of CHF (congestive heart failure) ICD Code: I50.9 Status: Acute (2) Elevated troponin ICD Code: R79.89 Status: Acute (3) HTN (hypertension) ICD Code: I10 Status: Chronic (4) Diabetes ICD Code: E11.9 Status: Chronic Assessment and Plan 50 y/o female with a history of chf, depression, htn, dm, gerd and ckd presented with: Acute exacerbation of chronic diastolic CHF Labs: BNP 979 Chest xray shows basilar atelectasis. Echocardiogram 05/28/16 showed normal systolic function with EF 50% -IV diuresis -Consulted cardiology and nephrology -Continue home Coreg. Lisinopril added. -Fluid and sodium restrictions, patient educated Elevated troponin, likely due to ckd Labs: troponin 0.11, 0.14, 0.17 -Consulted Cardiology, discussed with Dr. Choudhury, recommends medical management at this time, no intervention -Heparin drip for today -Aspirin, Statin Chronic kidney disease stage IV: Labs: Creatinine 2.94, previously 2.95 on 06/03/16. -Nephrology consulted, appreciate input, workup in progress -Cautious diuresis, albumin added HTN, chronic -monitor vitals/Tele -continue Norvasc and hydralazine DM, chronic -Accu checks AC/HS w/SSI -Diabetic/heart healthy diet COPD Chronic respiratory failure on home O2. Stable at this time, does not appear to be in acute exacerbation. -O2 and nebs as needed. DVT prophylaxis: Heparin Written by Mane Goodman, acting as scribe for Dr. Bowens on 07/17/16 at 09:30. The documentation accurately reflects the work performed [id number] by me Dr. Bowens on 07/17/16 at 09:30. Discharge Planning Disposition pending continued clinical improvement. Possible discharge 1-2 days. Problem Qualifiers (1) Acute exacerbation of CHF (congestive heart failure): Qualified Code: I50.9 - Acute on chronic congestive heart failure, unspecified congestive heart failure type (2) HTN (hypertension): Qualified Code: I10 - Essential hypertension (3) Diabetes: Mane Goodman Jul 17, 2016 09:30 Soo Bowens MD Jul 17, 2016 13:26
[2016-07-17] MEDS ORDERED: RESP: ALBUTEROL 2.5 MG/IPRATROPIUM 0.5 MG NEB (PRN) NEB (09:45)
--- NOTE | 2016-07-17 11:45 | PD.CARD.PN ---
Subjective Subjective Remarks No chest pain, decreased shortness of breath, decreased edema Objective Medications Current Medications Medications (Trade) Dose Ordered Sig/Christa Route Start Time Stop Time Status Last Admin (NS Flush) 2 ml UNSCH PRN FLUSH 07/15/16 20:45 (NS Flush) 2 ml BID FLUSH 07/15/16 21:00 07/15/16 21:04 (Narcan Inj) 0.4 mg UNSCH PRN IV 07/15/16 20:45 Bumetanide 1 mg 1 mg BID@09,18 IV PUSH 07/16/16 09:00 07/16/16 16:54 (Heparin-D5W Inj) 250 ml @ 0 mls/hr TITRATE IV 07/16/16 03:00 07/18/16 02:59 07/17/16 04:17 (Elavil) 50 mg HS PO 07/16/16 21:00 07/16/16 20:47 (Norvasc) 10 mg DAILY PO 07/16/16 09:00 07/16/16 09:18 (Ecotrin Ec) 81 mg DAILY PO 07/16/16 09:00 07/16/16 09:18 (Lipitor) 80 mg HS PO 07/16/16 21:00 07/16/16 20:47 (Coreg) 25 mg BID PO 07/16/16 09:00 07/16/16 20:47 (Ferrous Sulfate) 325 mg BID PO 07/16/16 09:00 07/16/16 20:47 (Neurontin) 300 mg TID PO 07/16/16 09:00 07/16/16 16:54 (Apresoline) 50 mg TID PO 07/16/16 09:00 07/16/16 16:54 (D50w (Vial) Inj) 25 ml UNSCH PRN IV PUSH 07/16/16 06:30 (Glucagon Inj) 1 mg UNSCH PRN OTHER 07/16/16 06:30 (Albumin 25% Inj) 25 gm BID@ IV 07/16/16 17:00 07/17/16 08:57 (Prinivil) 20 mg DAILY PO 07/17/16 09:00 ([place] 5-325 Mg) 1 tab Q6H PRN PO 07/16/16 23:30 07/16/16 23:56 Vital Signs / I&O Vital Signs Date Time Temp Pulse Resp B/P Pulse Ox O2 Delivery O2 Flow Rate FiO2 07/17/16 09:22 95 Nasal Cannula 2.00 07/17/16 08:12 62 18 135/71 95 07/17/16 03:05 98.0 60 18 159/76 96 07/17/16 01:19 16 07/16/16 23:17 97.1 68 20 162/79 93 07/16/16 20:38 74 07/16/16 19:35 93 Nasal Cannula 2.00 07/16/16 17:14 71 18 160/89 95 07/16/16 14:39 98.2 68 20 148/68 93 07/16/16 11:37 98.1 72 20 173/81 93 I/O 07/16/16 07/16/16 07/16/16 07/17/16 07/17/16 07/17/16 07:00 15:00 23:00 07:00 15:00 23:00 Intake Total 720 ml Output Total 900 ml 200 ml 500 ml Balance -900 ml 520 ml -500 ml Intake Oral 720 ml Output Urine Total 900 ml 200 ml 500 ml # Voids 3 Physical Exam GENERAL: NAD, AAOx3 SKIN: Warm and dry. HEAD: Atraumatic. Normocephalic. EYES: Pupils equal and round. No scleral icterus. No injection or drainage. ENT: No nasal bleeding or discharge. Mucous membranes pink and moist. NECK: Trachea midline. No JVD. CARDIOVASCULAR: Regular rate and rhythm. RESPIRATORY: No accessory muscle use. Decreased breath sounds bilaterally, no rales noted GASTROINTESTINAL: Abdomen soft, non-tender, nondistended. Hepatic and splenic margins not palpable. MUSCULOSKELETAL: 2+ pitting edema bilaterally NEUROLOGICAL: Awake and alert. No obvious cranial nerve deficits. Motor grossly within normal limits. Five out of 5 muscle strength in the arms and legs. Normal speech. PSYCHIATRIC: Appropriate mood and affect; insight and judgment normal. Laboratory Laboratory Tests Test 07/16/16 07/16/16 07/16/16 07/17/16 11:45 12:02 18:30 00:01 Urine Random Creatinine 50 MG/DL Urine Random Total Protein 526 MG/DL Urine Protein/Creatinine Ratio 10.52 Activated Partial 26.6 SEC 26.6 SEC 28.1 SEC Thromboplast Time Total Protein 5.9 GM/DL Albumin 2.65 GM/DL Albumin/Globulin Ratio 0.81 Qbspd-9-Uuhxgsstd 0.29 GM/DL Etwir-6-Lyvqzegrk 0.87 GM/DL Beta Globulins 0.73 GM/DL Gamma Globulins 1.36 GM/DL Complement C3 115 MG/DL Complement C4 26 MG/DL Anti-Nuclear Antibody Screen NEG Test 07/17/16 08:02 White Blood Count 3.6 TH/MM3 Red Blood Count 4.00 MIL/MM3 Hemoglobin 9.0 GM/DL Hematocrit 29.0 % Mean Corpuscular Volume 72.3 FL Mean Corpuscular Hemoglobin 22.5 PG Mean Corpuscular Hemoglobin 31.2 % Concent Red Cell Distribution Width 19.3 % Platelet Count 178 TH/MM3 Mean Platelet Volume 9.3 FL Neutrophils (%) (Auto) 53.7 % Lymphocytes (%) (Auto) 25.6 % Monocytes (%) (Auto) 13.3 % Eosinophils (%) (Auto) 6.1 % Basophils (%) (Auto) 1.3 % Neutrophils # (Auto) 1.9 TH/MM3 Lymphocytes # (Auto) 0.9 TH/MM3 Monocytes # (Auto) 0.5 TH/MM3 Eosinophils # (Auto) 0.2 TH/MM3 Basophils # (Auto) 0.0 TH/MM3 CBC Comment AUTO DIFF Differential Comment AUTO DIFF CONFIRMED Platelet Estimate NORMAL Platelet Morphology Comment CLUMPED Basophilic Stippling MOD Ovalocytes 1+ Keratocytes OCC Activated Partial 29.4 SEC Thromboplast Time Sodium Level 138 MEQ/L Potassium Level 4.3 MEQ/L Chloride Level 104 MEQ/L Carbon Dioxide Level 24.6 MEQ/L Anion Gap 9 MEQ/L Blood Urea Nitrogen 30 MG/DL Creatinine 3.18 MG/DL Estimat Glomerular Filtration 16 ML/MIN Rate Random Glucose 144 MG/DL Calcium Level 7.7 MG/DL Assessment and Plan Problem List: (1) Acute exacerbation of CHF (congestive heart failure) (2) Stage 4 chronic kidney disease (3) HTN (hypertension) (4) Diabetes (5) Elevated troponin (6) Stented coronary artery Assessment and Plan 1) Admitted with increased edema and SOB, denies CP... ran out of diuretic at home for 2 weeks, unable to get in to see primary doctor (needs a new one) 2) Continue gentle diuresis as possible 3) Minimally elevated troponin, most likely due to fluid overloaded state, HTN episode, CKD... previous stress test showing mild small lateral wall defect, offered diagnostic cath with a plan for staged intervention if needed, wants to continue medical management, does not want to take the chance of going on HD, but explained my concern that she will eventually be there 4) Can DC heparin tomorrow 5) Needs follow up with a PCP, Nephrology, and Cardiology on discharge Problem Qualifiers (1) Acute exacerbation of CHF (congestive heart failure): Qualified Code: I50.9 - Acute on chronic congestive heart failure, unspecified congestive heart failure type (2) HTN (hypertension): Qualified Code: I10 - Essential hypertension (3) Diabetes: Juancho Choudhury DO Jul 17, 2016 11:45
[2016-07-17] MEDS: AMITRIPTYLINE HCL 50 MG TAB PO SCH (20:38)
[2016-07-17] MEDS: ATORVASTATIN 80 MG TAB PO SCH (20:39)
[2016-07-17] MEDS: ACETAMINOPHEN/HYDROcodone 325 MG/5 MG TAB PO PRN (20:39)
[2016-07-17 21:28] LABS: APTT (PATIENT) 28.2 SEC (24.3-30.1)
[2016-07-18] VITALS (13 sets, daily range): BP systolic 101–169; BP diastolic 66–90; PULSE 67–76; RESP 16–20; TEMP 96.9–98.3; O2SAT 93–100
[2016-07-18] MEDS: HEPARIN-D5W INJ 250 ML IV SCH (01:42)
[2016-07-18 05:02] LABS: APTT (PATIENT) 27.3 SEC (24.3-30.1)
[2016-07-18] MEDS: ONDANSETRON HCL 4 MG/2 ML VIAL IV PUSH PRN (05:57)
[2016-07-18] MEDS: INSULIN ASPART SUPPLEMENTAL SCALE SQ SCH ×4 (06:20→20:41)
[2016-07-18] MEDS: SODIUM CHLORIDE 0.9% FLUSH 5 ML FLUSH FLUSH SCH (08:03)
[2016-07-18] MEDS: ALBUMIN HUMAN 25% 25 GM/100 ML BAGP IV SCH ×2 (08:03→18:01)
[2016-07-18] MEDS: BUMETANIDE INJ 1 MG/4 ML VIAL IV PUSH SCH ×2 (11:03→18:01)
[2016-07-18] MEDS: CARVEDILOL 12.5 MG TAB PO SCH ×2 (11:03→22:24)
[2016-07-18] MEDS: GABAPENTIN 300 MG CAP PO SCH ×3 (11:03→18:01)
[2016-07-18] MEDS: hydrALAZINE HCL 50 MG TAB PO SCH ×3 (11:05→18:01)
[2016-07-18] MEDS: LISINOPRIL 20 MG TAB PO SCH (11:05)
[2016-07-18] MEDS: FERROUS SULFATE 325 MG (65 MG ELEMENTAL IRON) TAB PO SCH ×2 (11:05→20:39)
--- NOTE | 2016-07-18 11:08 | PD.CARD.PN ---
Subjective Subjective Remarks No chest pain, no shortness of breath, decreased edema Objective Medications Current Medications Medications (Trade) Dose Ordered Sig/Christa Route Start Time Stop Time Status Last Admin (Narcan Inj) 0.4 mg UNSCH PRN IV 07/15/16 20:45 (Bumex Inj) 1 mg BID@09,18 IV PUSH 07/16/16 09:00 07/17/16 19:03 (Elavil) 50 mg HS PO 07/16/16 21:00 07/17/16 20:38 (Norvasc) 10 mg DAILY PO 07/16/16 09:00 07/17/16 09:00 (Ecotrin Ec) 81 mg DAILY PO 07/16/16 09:00 07/17/16 09:00 (Lipitor) 80 mg HS PO 07/16/16 21:00 07/17/16 20:39 (Coreg) 25 mg BID PO 07/16/16 09:00 07/17/16 20:38 (Ferrous Sulfate) 325 mg BID PO 07/16/16 09:00 07/17/16 20:38 (Neurontin) 300 mg TID PO 07/16/16 09:00 07/17/16 19:03 (Apresoline) 50 mg TID PO 07/16/16 09:00 07/17/16 19:03 (D50w (Vial) Inj) 25 ml UNSCH PRN IV PUSH 07/16/16 06:30 (Glucagon Inj) 1 mg UNSCH PRN OTHER 07/16/16 06:30 (Albumin 25% Inj) 25 gm BID@ IV 07/16/16 17:00 07/18/16 08:03 (Prinivil) 20 mg DAILY PO 07/17/16 09:00 07/17/16 09:00 ([place] 5-325 Mg) 1 tab Q6H PRN PO 07/16/16 23:30 07/17/16 20:39 (Zofran Inj) 4 mg Q6HR PRN IV PUSH 07/18/16 06:00 07/18/16 05:57 Vital Signs / I&O Vital Signs Date Time Temp Pulse Resp B/P Pulse Ox O2 Delivery O2 Flow Rate FiO2 07/18/16 08:00 97.6 70 16 142/81 93 07/18/16 06:08 97.5 70 20 127/70 94 07/17/16 23:49 97.6 70 20 136/75 95 07/17/16 23:33 3 Nasal Cannula 3.00 07/17/16 22:22 16 07/17/16 20:16 97.6 74 20 147/77 94 07/17/16 16:00 97.6 63 16 159/80 95 07/17/16 12:32 98.7 68 21 135/95 97 I/O 07/17/16 07/17/16 07/17/16 07/18/16 07/18/16 07/18/16 07:00 15:00 23:00 07:00 15:00 23:00 Intake Total 1100 ml Output Total 500 ml 2700 ml Balance -500 ml -1600 ml Intake Oral 800 ml IV Total 300 ml Output Urine Total 500 ml 2700 ml # Voids 0 # Bowel Movements 0 Physical Exam GENERAL: NAD, AAOx3 SKIN: Warm and dry. HEAD: Atraumatic. Normocephalic. EYES: Pupils equal and round. No scleral icterus. No injection or drainage. ENT: No nasal bleeding or discharge. Mucous membranes pink and moist. NECK: Trachea midline. No JVD. CARDIOVASCULAR: Regular rate and rhythm. RESPIRATORY: No accessory muscle use. Decreased breath sounds bilaterally, no rales noted GASTROINTESTINAL: Abdomen soft, non-tender, nondistended. Hepatic and splenic margins not palpable. MUSCULOSKELETAL: 2+ pitting edema bilaterally NEUROLOGICAL: Awake and alert. No obvious cranial nerve deficits. Motor grossly within normal limits. Five out of 5 muscle strength in the arms and legs. Normal speech. PSYCHIATRIC: Appropriate mood and affect; insight and judgment normal. Laboratory Laboratory Tests Test 07/17/16 07/18/16 20:15 03:45 Activated Partial 28.2 SEC 27.3 SEC Thromboplast Time Assessment and Plan Problem List: (1) Acute exacerbation of CHF (congestive heart failure) (2) Stage 4 chronic kidney disease (3) HTN (hypertension) (4) Diabetes (5) Elevated troponin (6) Stented coronary artery Assessment and Plan 1) Admitted with increased edema and SOB, denies CP... ran out of diuretic at home for 2 weeks, unable to get in to see primary doctor (needs a new one) 2) Continue gentle diuresis as possible, should recheck BMP to make sure Creatinine not too elevated 3) Minimally elevated troponin, most likely due to fluid overloaded state, HTN episode, CKD... previous stress test showing mild small lateral wall defect, offered diagnostic cath with a plan for staged intervention if needed, wants to continue medical management, does not want to take the chance of going on HD, but explained my concern that she will eventually be there 4) Heparin drip stopped 5) Needs follow up with a PCP, Nephrology, and Cardiology on discharge Problem Qualifiers (1) Acute exacerbation of CHF (congestive heart failure): Qualified Code: I50.9 - Acute on chronic congestive heart failure, unspecified congestive heart failure type (2) HTN (hypertension): Qualified Code: I10 - Essential hypertension (3) Diabetes: Juancho Choudhury DO Jul 18, 2016 11:08
[2016-07-18] MEDS: ASPIRIN EC 81 MG TABEC PO SCH (11:15)
--- NOTE | 2016-07-18 12:28 | HHI.PR ---
Subjective Remarks Follow up for CHF exacerbation, CKD. The patient is very drowsy today. Lying on her left side in bed, opens eyes only for few seconds then falls back asleep. RN at bedside states 30minutes ago she was drowsy but they were able to wake her up, sit her on the side of the bed, and she was oriented x4. Now the patient is only responding/moaning to pain, not following commands. Spontaneous movement of RUE/LUE but not lower extremities. Stroke alert called. Objective Vitals Vital Signs Date Time Temp Pulse Resp B/P Pulse Ox O2 Delivery O2 Flow Rate FiO2 07/18/16 08:00 97.6 70 16 142/81 93 07/18/16 06:08 97.5 70 20 127/70 94 07/17/16 23:49 97.6 70 20 136/75 95 07/17/16 23:33 3 Nasal Cannula 3.00 07/17/16 22:22 16 07/17/16 20:16 97.6 74 20 147/77 94 07/17/16 16:00 97.6 63 16 159/80 95 07/17/16 12:32 98.7 68 21 135/95 97 I/O 07/17/16 07/17/16 07/17/16 07/18/16 07/18/16 07/18/16 07:00 15:00 23:00 07:00 15:00 23:00 Intake Total 1100 ml Output Total 500 ml 2700 ml Balance -500 ml -1600 ml Intake Oral 800 ml IV Total 300 ml Output Urine Total 500 ml 2700 ml # Voids 0 # Bowel Movements 0 Result Diagram: 07/17/16 0802 07/17/16 0802 Imaging Last Impressions Head CT 07/18/16 1237 Signed Impressions: Service Date/Time: July 12:43 - CONCLUSION: 1. No evidence of acute intracranial pathology. No masses are identified. Emre Daniel MD Chest X-Ray 07/15/16 1619 Signed Impressions: Service Date/Time: Friday, July 15, 2016 19:14 - CONCLUSION: 1. Basilar atelectasis. No significant effusion. No pneumothorax. George Choi MD Objective Remarks GENERAL: Well-nourished, well-developed obese middle aged female patient, lethargic. SKIN: Warm and dry. No rash. HEAD: Normocephalic. Atraumatic. EYES: Pupils equal and round. No scleral icterus. No injection or drainage. ENT: No nasal bleeding or discharge. Mucous membranes pink and moist. NECK: Supple. Trachea midline. CARDIOVASCULAR: Regular rate and rhythm. S1, S2 noted. No murmur appreciated. RESPIRATORY: No accessory muscle use. Clear to auscultation. Breath sounds equal bilaterally. GASTROINTESTINAL: Abdomen soft, non-tender, nondistended. Normoactive bowel sounds x4. MUSCULOSKELETAL: No obvious deformities. Extremities without clubbing, cyanosis , or edema. NEUROLOGICAL: Drowsy, not following commands, spontaneous movement of bilateral upper extremities however very lethargic and flaccid at times. Medications and IVs Current Medications Medications (Trade) Dose Ordered Sig/Christa Route Start Time Stop Time Status Last Admin (NS Flush) 2 ml UNSCH PRN FLUSH 07/15/16 20:45 (NS Flush) 2 ml BID FLUSH 07/15/16 21:00 07/18/16 08:03 (Narcan Inj) 0.4 mg UNSCH PRN IV 07/15/16 20:45 (Bumex Inj) 1 mg BID@09,18 IV PUSH 07/16/16 09:00 07/18/16 11:03 (Elavil) 50 mg HS PO 07/16/16 21:00 07/17/16 20:38 (Norvasc) 10 mg DAILY PO 07/16/16 09:00 07/18/16 11:04 (Ecotrin Ec) 81 mg DAILY PO 07/16/16 09:00 07/18/16 11:15 (Lipitor) 80 mg HS PO 07/16/16 21:00 07/17/16 20:39 (Coreg) 25 mg BID PO 07/16/16 09:00 07/18/16 11:03 (Ferrous Sulfate) 325 mg BID PO 07/16/16 09:00 07/18/16 11:05 (Neurontin) 300 mg TID PO 07/16/16 09:00 07/18/16 11:03 (Apresoline) 50 mg TID PO 07/16/16 09:00 07/18/16 11:05 (D50w (Vial) Inj) 25 ml UNSCH PRN IV PUSH 07/16/16 06:30 (Glucagon Inj) 1 mg UNSCH PRN OTHER 07/16/16 06:30 (Albumin 25% Inj) 25 gm BID@08,17 IV 07/16/16 17:00 07/18/16 08:03 (Prinivil) 20 mg DAILY PO 07/17/16 09:00 07/18/16 11:05 ([place] 5-325 Mg) 1 tab Q6H PRN PO 07/16/16 23:30 07/17/16 20:39 Ondansetron HCl 4 mg 4 mg Q6HR PRN IV PUSH 07/18/16 06:00 07/18/16 05:57 (Diprivan 1000 Mg/100ml Inj) 100 ml @ 0 mls/hr TITRATE IV 07/18/16 13:30 Urinary Catheter: No Vascular Central Line Catheter: No A/P Problem List: (1) Acute exacerbation of CHF (congestive heart failure) ICD Code: I50.9 Status: Acute (2) Elevated troponin ICD Code: R79.89 Status: Acute (3) HTN (hypertension) ICD Code: I10 Status: Chronic (4) Diabetes ICD Code: E11.9 Status: Chronic Assessment and Plan 50 y/o female with a history of chf, depression, htn, dm, gerd and ckd presented with: Halicat/Stroke Alert/Acute Encephalopathy: secondary to CO2 retention however r/ out other etiologies including CVA. Patient found lethargic, not following commands around 12:30pm today, RN reported last seen drowsy but AAOx4 at 12pm. Initially stroke alert was called, concern for CVA/hemorrhage as patient recently on IV Heparin drip for elevated troponins, heparin drip was d/darryl last night 07/17. Stat head CT, ABG, CBC, CMP, Ammonia and blood glucose done. Head CT was negative however ABG revealed pCO2 of 87, pO2 49. Initially vital signs were stable, BG 155, however while in radiology, patient's O2 sats dropped to 60 %, she was placed on BVM and Halicat was called. Intensivists called for intubation. Discussed with neurologist Dr. Estes and intensivists Dr. Reynaga and Dr. Goff. Transfer to [facility]. Brain MRI ordered. Acute Respiratory Failure: with O2 sat in the 60s during Halicat, ABG with pH of 7.0, pCO2 87, pO2 49. Not formally diagnosed with COPD per EMR. Possible component of obesity hypoventilation syndrome. Also ruling out CVA as above. Continue with intubation. Transferred to intensivists. Acute exacerbation of chronic diastolic CHF: Labs: BNP 979. CXR shows basilar atelectasis. Echocardiogram 05/28/16 showed normal systolic function with EF 50 % -IV diuresis with IV Bumex 1mg bid and nephrology added IV albumin -Consulted cardiology and nephrology, appreciate recommendations -Continue home Coreg. Lisinopril added. -Fluid and sodium restrictions, patient educated -patient diuresing well Elevated troponin, likely due to ckd: troponin 0.11, 0.14, 0.17 -Consulted Cardiology, seen by Dr. Choudhury, offered cardiac cath however patient declined due to CKD, therefore recommended medical management at this time, no intervention -Heparin drip discontinued -Continue Aspirin, Statin Chronic kidney disease stage IV: Labs: Creatinine 2.94, previously 2.95 on 06/03/16. -Nephrology consulted, appreciate input, workup in progress -Cautious diuresis, albumin added by nephrology HTN, chronic -monitor vitals/Tele -continue Norvasc and hydralazine DM, chronic -Accu checks AC/HS w/SSI -Diabetic/heart healthy diet DVT prophylaxis: Heparin discontinued. hold chemical prophylaxis until CVA ruled out. Written by Katelynn Schulte, acting as scribe for Dr. Mckeon on 07/18/16 at 12: 28. The documentation accurately reflects the work performed [id number] by me on 07/18/16 at 12:28. Attending Statement The documentation accurately reflects the work performed [id number] by me on at 13:09. 40 minutes of critical care time spent on patient care Problem Qualifiers (1) Acute exacerbation of CHF (congestive heart failure): Qualified Code: I50.9 - Acute on chronic congestive heart failure, unspecified congestive heart failure type (2) HTN (hypertension): Qualified Code: I10 - Essential hypertension (3) Diabetes: Katelynn Schulte PA-C Jul 18, 2016 12:28 Rojelio Davidson MD Jul 23, 2016 13:09
[2016-07-18 12:38] LABS: BLOOD GAS BASE EXCESS -4.1 mmol/L (-2-2); BLOOD GAS CARBOXYHEMOGLOBIN 1.9 % (0-4); BLOOD GAS HCO3 25 mmol/L (22-26); BLOOD GAS METHEMOGLOBIN 2.2 % (0-2); BLOOD GAS O2 HGB SATURATION 74 % (90-100); BLOOD GAS OXYGEN CONTENT 10.1 Vol % (12.0-20.0); BLOOD GAS PCO2 87 mmHg (38-42); BLOOD GAS PO2 49 mmHG (61-120); BLOOD GAS TOTAL HGB 9.7 G/DL (12.0-16.0); TEMP CORR TO 98.6
[2016-07-18 12:39] LABS: CRITICAL VALUE YES; DRAW SITE RT RADIAL; LITER FLOW 2 L/M; NUMBER OF ARTERIAL PUNCTURES 1; OXYGEN DEVICE NASAL CANNULA; STAT YES; ULNAR PULSE PRESENT
--- NOTE | 2016-07-18 13:01 | RADRPT ---
EXAM DATE/TIME: 07/18/2016 12:43 [facility] COMPARISON: No previous studies available for comparison. INDICATIONS : Stroke alert, became unreponsive. RADIATION DOSE: 56.75 CTDIvol (mGy) This report was called by Examination of the knee demonstrates no evidence of fracture or dislocation . Bony mineralization is normal. There is no evidence of joint effusion. No foreign body is identifie d. to Dr. Estes at 1300 MEDICAL HISTORY : Cardiovascular disease. Hypertension. Renal failure, chronic.Diabetes SURGICAL HISTORY : None. ENCOUNTER: Initial ACUITY: 1 day PAIN SCALE: Non-responsive LOCATION: cranial TECHNIQUE: Multiple contiguous axial images were obtained of the head. Using automated exposure control and adj ustment of the mA and/or kV according to patient size, radiation dose was kept as low as reasonably a chievable to obtain optimal diagnostic quality images. FINDINGS: CEREBRUM: The ventricles are normal for age. No evidence of midline shift, mass lesion, hemorrhage or acute in farction. No extra-axial fluid collections are seen. POSTERIOR FOSSA: The cerebellum and brainstem are intact. The 4th ventricle is midline. The cerebellopontine angle i s unremarkable. EXTRACRANIAL: The visualized portion of the orbits is intact. SKULL: The calvaria is intact. No evidence of skull fracture. CONCLUSION: 1. No evidence of acute intracranial pathology. No masses are identified. Emre Daniel MD on July 18, 2016 at 12:57 Board Certified Radiologist. This report was verified electronically.
[2016-07-18] MEDS ORDERED: ETOMIDATE 20 MG/10 ML VIAL ONE (13:07)
[2016-07-18] MEDS ORDERED: PROPOFOL 1000 MG/100 ML INJ 100 ML ONE (13:24)
[2016-07-18 13:40] LABS: AUTOMATED NEUTROPHIL # 4.1 TH/MM3 (1.8-7.7); BASOPHIL % 0.5 % (0.0-2.0); EOSINOPHIL # 0.1 TH/MM3 (0-0.4); EOSINOPHIL % 1.5 % (0.0-4.0); HEMATOCRIT 31.2 % (35.0-46.0); HEMO FLAGS AUTO DIFF; LYMPH % 13.7 % (9.0-44.0); LYMPHOCYTE # 0.7 TH/MM3 (1.0-4.8); MEAN CELL VOLUME 73.6 FL (80.0-100.0); MEAN CORPUSCULAR HEMOGLOBIN 22.7 PG (27.0-34.0); MEAN CORPUSCULAR HGB CONC 30.8 % (32.0-36.0); MONO % 8.8 % (0.0-8.0); NEUT % 75.5 % (16.0-70.0); PLATELET COUNT 184 TH/MM3 (150-450); RED BLOOD COUNT 4.25 MIL/MM3 (4.00-5.30); RED CELL DISTRIBUTION WIDTH 19.3 % (11.6-17.2); WHITE BLOOD COUNT 5.4 TH/MM3 (4.0-11.0)
[2016-07-18] MEDS ORDERED: MISCELLANEOUS NURSING INFORMATION XX SCH (13:45)
[2016-07-18] MEDS ORDERED: SODIUM CHLORIDE 0.9% FLUSH 5 ML FLUSH IVF PRN (13:45)
[2016-07-18] MEDS ORDERED: RESP: ALBUTEROL 2.5 MG/3 ML NEB (PRN) INH (13:45)
[2016-07-18] MEDS ORDERED: CHLORHEXIDINE GLUCONATE 2 % 1 PACK (2 CLOTHS) TOP PRN (13:45)
--- NOTE | 2016-07-18 13:57 | RADRPT ---
EXAM DATE/TIME: 07/18/2016 13:33 [facility] COMPARISON: CHEST SINGLE AP, July 15, 2016, 19:14. INDICATIONS : Post intubation. MEDICAL HISTORY : None. SURGICAL HISTORY : None. ENCOUNTER: Initial ACUITY: 1 day PAIN SCORE: Non-responsive. LOCATION: Bilateral chest FINDINGS: Single AP view of the chest. Endotracheal tube is in place with the tip 3 cm above the aryan. Lung v olumes are low. No evidence of pleural effusion or pneumothorax. Patchy perihilar and lower lung zone opacity bilaterally. CONCLUSION: 1. Endotracheal tube in place. 2. Low lung volumes with new bilateral pulmonary opacities suggesting atelectasis versus mild pulmona ry edema. Eliezer Shay MD on July 18, 2016 at 13:54 Board Certified Radiologist. This report was verified electronically.
[2016-07-18 13:58] LABS: ALKALINE PHOSPHATASE 122 U/L (45-117); ALT (GPT) 14 U/L (10-53); ANION GAP 2 MEQ/L (5-15); AST (GOT) 7 U/L (15-37); BICARBONATE 28.3 MEQ/L (21.0-32.0); BLOOD UREA NITROGEN 39 MG/DL (7-18); CHLORIDE 105 MEQ/L (98-107); GLOMERULAR FILTRATION RATE 12 ML/MIN (>89); POTASSIUM 5.3 MEQ/L (3.5-5.1); SODIUM (NA) 135 MEQ/L (136-145); TOTAL BILIRUBIN ADULT 0.3 MG/DL (0.2-1.0)
[2016-07-18 14:18] LABS: SCAN/DIFF AUTO DIFF CONFIRMED
[2016-07-18 14:20] LABS: KERATOCYTES OCC (NORMAL); OVALOCYTES 1+ (NORMAL)
[2016-07-18 14:25] LABS: BLOOD GAS BASE EXCESS -3.1 mmol/L (-2-2); BLOOD GAS CARBOXYHEMOGLOBIN 2.5 % (0-4); BLOOD GAS HCO3 22 mmol/L (22-26); BLOOD GAS METHEMOGLOBIN 2.1 % (0-2); BLOOD GAS O2 HGB SATURATION 94 % (90-100); BLOOD GAS OXYGEN CONTENT 12.6 Vol % (12.0-20.0); BLOOD GAS PCO2 48 mmHg (38-42); BLOOD GAS PO2 122 mmHG (61-120); BLOOD GAS TOTAL HGB 9.4 G/DL (12.0-16.0); TEMP CORR TO 98.6
[2016-07-18 14:28] LABS: CRITICAL VALUE YES
[2016-07-18 14:29] LABS: OXYGEN DEVICE VENTILATOR
[2016-07-18 14:30] LABS: DRAW SITE LT RADIAL; FIO2 70 %; VENT SETTINGS AC/ 20/550/PEEP 5
[2016-07-18 14:31] LABS: NUMBER OF ARTERIAL PUNCTURES 1; STAT NO; ULNAR PULSE PRESENT
--- NOTE | 2016-07-18 14:37 | PD.CONS ---
[facility] Service Critical Care Medicine Consult Requested By Dr. Mckeon Reason for Consult encephalopathy, resp failure Primary Care Physician No Primary Care Physician History of Present Illness 50 y/o female with a history of chf, depression, htn, dm, and ckd presented to the ED on 07/15 with complaints of dyspnea, swelling in her lower extremities and a 50lb weight gain since last admission 06/03/16. Patient had gained 50 lbs in fluid from last admission. She presented with increased shortness of breath with intermittent chest pressure with no radiation or associated symptoms. She was admitted on 05/31/16 and diagnosed with CHF, discharged home on on Bumex. Patient states she recently ran out of meds and has not followed up with a doctor due to transportation issues. She is not from here and her pcp is 2 hours away and she does not want her kids to take off work to take her to appointments. She is hoping to move back in 2 weeks or so. She states she tried to call a wool presser to follow up but they required her records and she did not get them. Despite taking Bumex she states she has not had an increase in urination. Last admission 2d echo showed systolic dysfunction with EF 50%, she was seen by DR. Choudhury, and DR. Medley. Patient was admitted by hospitalist service. She was evaluated by Dr. Choudhury from cardiology who offered cardiac catheterization as patient did have an elevated troponin and previous abnormal stress test however she was concerned regarding ending up on hemodialysis so she refused. Patient was reportedly on nasal cannula earlier today however around 1:30 PM was noted to be lethargic and minimally responsive. Stroke alert was called. Head CT was negative for bleed. Recent had an ABG done which revealed pH of 7.0/PCO2 87/PO2 49. Critical care service was contacted by Dr. Mckeon. Both myself and Dr. Ott arrived at bedside. Patient was encephalopathic though arousable with painful stimuli occasional morning however not following commands. Her fingerstick glucose was in the 140s earlier. Decision was made to proceed with endotracheal intubation which was performed by Dr. Goff. A stat MRI brain was ordered to evaluate for CVA after discussion with Dr. Estes. ROS - General Review of Systems Unobtainable as patient is encephalopathic, orally intubated on mechanical ventilation PFSH Past Family Social History Past Medical History CHF last echo 08/01/15 EF 50% Depression HTN DM Neuropathy Anemia CKD Past Surgical History Cardiac Cath 2015, was taken off Plavix at some point Reported Medications Reported Meds & Active Scripts Active Bumex (Bumetanide) 1 Mg Tab 1 Mg PO BID Ferrous Sulfate 325 Mg Tab 325 Mg PO BID Norvasc (Amlodipine Besylate) 10 Mg Tab 10 Mg PO DAILY Oxygen tank (Oxygen) 1 Ea Tank 2 Liter GERRY.CANULA CONTINUOUS Oxygen Concentrator Portable Gaseous 2 L/min via Nasal Cannula Continuous For 99 months Reported Humalog Inj (Insulin Human Lispro) 1,000 Unit/10 Ml Vial 12 Units SQ BID Lantus Inj (Insulin Glargine) 1,000 Unit/10 Ml Vial 40 Units SQ DAILYAC Pepcid (Famotidine) 40 Mg Tab 40 Mg PO DAILY Nitroglycerin SL (Nitroglycerin) 0.4 Mg Subl 0.4 Mg SL DIRECTED PRN ONE TABLET UNDER THE TONGUE NEEDED FOR CHEST PAIN, MAY REPEAT EVERY FIVE MINUTES FOR A TOTAL OF 3 DOSES OR CALL 911 IF NO RELIEF Hydralazine (Hydralazine HCl) 50 Mg Tab 50 Mg PO TID Take with a meal Gabapentin 300 Mg Cap 300 Mg PO TID Atorvastatin (Atorvastatin Calcium) 80 Mg Tab 80 Mg PO HS Glipizide XL (Glipizide) 2.5 Mg Paula 2.5 Mg PO DAILY Take with breakfast or first main meal of the day Amitriptyline (Amitriptyline HCl) 50 Mg Tab 50 Mg PO HS Carvedilol 25 Mg Tab 25 Mg PO BID Xanax (Alprazolam) 0.25 Mg Tab 0.25 Mg PO BID PRN Aspirin EC (Aspirin) 81 Mg Tabdr 81 Mg PO DAILY Drisdol (Ergocalciferol) 50,000 Unit Cap 50,000 Units PO Q7D ON TUESDAYS Allergies: Coded Allergies: Lyrica (Verified Allergy, Severe, Anaphylaxis, 07/15/16) Current Medications IV Flush (NS Flush) 2 ml UNSCH PRN IVF FLUSH AFTER USING IV ACCESS; Start 07/15 at 19:00; Stop 07/15/16 at 20:43; Status DC Bumetanide (Bumex Inj) 1 mg ONCE ONCE IV PUSH Last administered on 07/15/16t 20:35; Start 07/15/16 at 20:30; Stop 07/15/16 at 20:31; Status DC IV Flush (NS Flush) 2 ml UNSCH PRN FLUSH FLUSH AFTER USING IV ACCESS; Start at 20:45; Stop 07/18/16 at 13:51; Status DC IV Flush (NS Flush) 2 ml BID FLUSH Last administered on 07/18/16 08:03; Start 07/15/16 at 21:00; Stop 07/18/16 at 13:51; Status DC Naloxone HCl (Narcan Inj) 0.4 mg UNSCH PRN IV SEE LABEL COMMENTS; Start at 20:45 Bumetanide (Bumex Inj) 1 mg BID@09,18 IV PUSH Last administered on 07/18/16 11: 03; Start 07/16/16 at 09:00 Bumetanide 1 mg 1 mg ONCE ONCE IV PUSH Last administered on 07/16/16 03:11; Start 07/16/16 at 03:00; Stop 07/16/16 at 03:01; Status DC Heparin Sodium/ Dextrose (Heparin-D5W Inj) 250 ml @ 0 mls/hr TITRATE IV Last administered on 07/18/16 01:42; Start 07/16/16 at 03:00; Stop 07/18/16 at 02:59; Status DC Heparin Sodium (Porcine) (Heparin Inj) 5,000 units ONCE ONCE IV Last administered on 07/16/16 03:11; Start 07/16/16 at 03:00; Stop 07/16/16 at 03:01 ; Status DC Amitriptyline HCl (Elavil) 50 mg HS PO Last administered on 07/17/16 20:38; Start 07/16/16 at 21:00 Amlodipine Besylate (Norvasc) 10 mg DAILY PO Last administered on 07/18/16 11: 04; Start 07/16/16 at 09:00 Aspirin (Ecotrin Ec) 81 mg DAILY PO Last administered on 07/18/16 11:15; Start 07/16/16 at 09:00 Atorvastatin Calcium (Lipitor) 80 mg HS PO Last administered on 07/17/16 20:39 ; Start 07/16/16 at 21:00 Carvedilol (Coreg) 25 mg BID PO Last administered on 07/18/16 11:03; Start at 09:00 Ferrous Sulfate (Ferrous Sulfate) 325 mg BID PO Last administered on 07/18/16 11:05; Start 07/16/16 at 09:00 Gabapentin (Neurontin) 300 mg TID PO Last administered on 07/18/16 11:03; Start 07/16/16 at 09:00 Hydralazine HCl (Apresoline) 50 mg TID PO Last administered on 07/18/16 11:05; Start 07/16/16 at 09:00 Insulin Aspart (NovoLOG SUPPLEMENTAL SCALE) 1 ACHS SLIDING SCALE SQ Last administered on 07/18/16 06:20; Start 07/16/16 at 07:00 Dextrose (D50w (Vial) Inj) 25 ml UNSCH PRN IV PUSH HYPOGLYCEMIA - SEE COMMENTS ; Start 07/16/16 at 06:30 Glucagon (Glucagon Inj) 1 mg UNSCH PRN OTHER HYPOGLYCEMIA-SEE COMMENTS; Start 07/16/16 at 06:30 Albumin Human (Albumin 25% Inj) 25 gm BID@ IV Last administered on 08:03; Start 07/16/16 at 17:00 Lisinopril (Prinivil) 20 mg ONCE ONCE PO Last administered on 07/16/16 12:32 ; Start 07/16/16 at 11:00; Stop 07/16/16 at 11:11; Status DC Lisinopril (Prinivil) 20 mg DAILY PO Last administered on 07/18/16 11:05; Start 07/17/16 at 09:00 Acetaminophen/ Hydrocodone Bitart ([place] 5-325 Mg) 1 tab Q6H PRN PO PAIN >5 Last administered on 07/17/16 20:39; Start 07/16/16 at 23:30 Albuterol/ Ipratropium (Duoneb Neb) 1 ampule Q4HR NEB PRN NEB SOB/WHEEZING Last administered on 07/17/16 23:29; Start 07/17/16 at 09:45; Stop 07/18/16 at 13: 52; Status DC Ondansetron HCl (Zofran Inj) 4 mg Q6HR PRN IV PUSH nausea Last administered on 07/18/16 05:57; Start 07/18/16 at 06:00 Etomidate 20 mg 20 mg STK-MED ONCE .ROUTE ; Start 07/18/16 at 13:07; Stop at 13:08; Status DC Propofol 100 ml @ 0 mls/hr TITRATE IV ; Start 07/18/16 at 13:30 Propofol (Diprivan 1000 Mg/100ml Inj) 100 ml @ As Directed STK-MED ONCE .ROUTE ; Start 07/18/16 at 13:24; Stop 07/18/16 at 13:25; Status DC IV Flush (NS Flush) 2 ml UNSCH PRN IVF FLUSH AFTER USING IV ACCESS; Start at 13:45 IV Flush (NS Flush) 2 ml BID IVF ; Start 07/18/16 at 21:00 Albuterol/ Ipratropium (Duoneb Neb) 1 ampule Q6HR NEB NEB ; Start 07/18/16 at 16 :00 Albuterol Sulfate (Albuterol Neb) 2.5 mg Q4HR NEB PRN INH SHORTNESS OF BREATH; Start 07/18/16 at 13:45 Chlorhexidine Gluconate (Peridex 0.12% Liq) 15 ml BID@08,20 MT ; Start 07/18/16 at 20:00 Pantoprazole Sodium (Protonix Inj) 40 mg DAILY IV ; Start 07/19/16 at 09:00 Miscellaneous Information 1 Q361D XX ; Start 07/18/16 at 13:45 Chlorhexidine Gluconate (Chlorhexidine 2% Cloth) 3 pack Taper DAILY@04 TOP ; Start 07/19/16 at 04:00; Stop 07/15/17 at 03:59 Chlorhexidine Gluconate (Chlorhexidine 2% Cloth) 3 pack UNSCH PRN TOP HYGIENIC CARE; Start 07/18/16 at 13:45 Family History Patient denies any family history Social History No h/o ETOH abuse/ tobacco abuse/ substance abuse Physical Exam Vital Signs Vital Signs Date Time Temp Pulse Resp B/P Pulse Ox O2 Delivery O2 Flow Rate FiO2 07/18/16 13:18 95 70 07/18/16 12:00 96.9 76 18 144/85 93 07/18/16 08:00 97.6 70 16 142/81 93 07/18/16 06:08 97.5 70 20 127/70 94 07/17/16 23:49 97.6 70 20 136/75 95 07/17/16 23:33 3 Nasal Cannula 3.00 07/17/16 22:22 16 07/17/16 20:16 97.6 74 20 147/77 94 07/17/16 16:00 97.6 63 16 159/80 95 Physical Exam HEENT/ Neuro: Encephalopathic, arousable with painful stimuli/Sedated, orally intubated, Pallor present, no icterus, tongue/ mucosa moist. Moves both upper extremities and withdraws lower extremities with pain. Neck: No JVD Chest/Pulm: on mech vent, good air entry bilaterally, no wheezing or crackles CVS: S1-S2 regular, no murmur GI/abdomen: soft, nontender, bowel sounds sluggish Extremities: warm bilaterally, bilateral edema Laboratory Laboratory Tests Test 07/17/16 07/18/16 07/18/16 07/18/16 20:15 03:45 12:33 13:09 Activated Partial 28.2 27.3 Thromboplast Time Blood Gas Puncture Site RT RADIAL Blood Gas Patient Temperature 98.6 Blood Gas HCO3 25 Blood Gas Base Excess -4.1 Blood Gas Oxygen Saturation 74 Arterial Blood pH 7.08 Arterial Blood Partial 87 Pressure CO2 Arterial Blood Partial 49 Pressure O2 Arterial Blood Oxygen Content 10.1 Arterial Blood 1.9 Carboxyhemoglobin Arterial Blood Methemoglobin 2.2 Blood Gas Hemoglobin 9.7 Oxygen Delivery Device NASAL CANNULA Blood Gas Liter Flow 2 White Blood Count 5.4 Red Blood Count 4.25 Hemoglobin 9.6 Hematocrit 31.2 Mean Corpuscular Volume 73.6 Mean Corpuscular Hemoglobin 22.7 Mean Corpuscular Hemoglobin 30.8 Concent Red Cell Distribution Width 19.3 Platelet Count 184 Mean Platelet Volume 9.6 Neutrophils (%) (Auto) 75.5 Lymphocytes (%) (Auto) 13.7 Monocytes (%) (Auto) 8.8 Eosinophils (%) (Auto) 1.5 Basophils (%) (Auto) 0.5 Neutrophils # (Auto) 4.1 Lymphocytes # (Auto) 0.7 Monocytes # (Auto) 0.5 Eosinophils # (Auto) 0.1 Basophils # (Auto) 0.0 CBC Comment AUTO DIFF Sodium Level 135 Potassium Level 5.3 Chloride Level 105 Carbon Dioxide Level 28.3 Anion Gap 2 Blood Urea Nitrogen 39 Creatinine 3.89 Estimat Glomerular Filtration 12 Rate Random Glucose 164 Calcium Level 8.0 Total Bilirubin 0.3 Aspartate Amino Transf 7 (AST/SGOT) Alanine Aminotransferase 14 (ALT/SGPT) Alkaline Phosphatase 122 Total Protein 7.2 Albumin 3.1 Result Diagram: 07/18/16 1309 07/18/16 1309 Imaging 07/18: Chest x-ray portable which was personally reviewed: ET tube above aryan, interstitial infiltrates more on the right consistent with pulmonary edema Last Impressions Head CT 07/18/16 1237 Signed Impressions: Service Date/Time: July 12:43 - CONCLUSION: 1. No evidence of acute intracranial pathology. No masses are identified. Emre Daniel MD Chest X-Ray 07/15/16 1859 Signed Impressions: Service Date/Time: Friday, July 15, 2016 19:14 - CONCLUSION: 1. Basilar atelectasis. No significant effusion. No pneumothorax. George Choi MD Assessment and Plan Assessment and Plan 50-year-old female with: Encephalopathy : Secondary to CO2 retention, possible brainstem CVA Acute respiratory failure on mechanical ventilation CHF non-ST elevation NV CKD Diabetes mellitus morbid obesity History of depression History of hypertension Plan: Neuro: Patient intubated for airway protection and placed on propofol for sedation. Awaiting MRI brain to evaluate for ischemic CVA. Head CT negative for bleed. Discussed with Dr. Estes from neurology who has been consulted. Continue aspirin. Cardiovascular: Cyclic cardiac enzymes. Discussed with Dr. Juancho Choudhury who was following her. Patient declined cardiac catheterization at discussion this morning due to concern that she may not on hemodialysis. Pulmonary: Continue mechanical ventilation, vent bundle, bronchodilators. Follow up ABG. Start daily C Pap trials in a.m.. GI/liver: Nothing by mouth for now. We'll start tube feeds in a.m. Renal/: Strict intake output, monitor and replete electro lites, follow BUN/ creatinine. Being diuresed. Nephrology follow-up. ID: Send sputum cultures. Hold off on antibiotics at this time. Endocrine: SSI for glycemic control as needed Heme: Follow CBC. Prophylaxis: PPI/SCDs/Lovenox Discussed with Dr. Juancho Choudhury from cardiology, discussed with Dr. Estes from neurology. Condition critical. Transferred on critical care excluding procedures 70 minutes Lopez Reynaga MD Jul 18, 2016 14:37
--- NOTE | 2016-07-18 15:36 | HHI.NPPN ---
Subjective History of Present Illness 50 year old with CKD 4/5 Diabetes Nephrotic range proteinuria Interval History became lethargic and unresponsive intubated Additional Remarks PCO2 87 prior to intubation Objective Data Data 07/17/16 07/18/16 19:00 07:00 Intake Total 1100 ml Output Total 2700 ml Balance -1600 ml Intake Oral 800 ml IV Total 300 ml Output Urine Total 2700 ml # Voids 0 # Bowel Movements 0 Vital Signs Date Time Temp Pulse Resp B/P Pulse Ox O2 Delivery O2 Flow Rate FiO2 07/18/16 15:28 95 100 07/18/16 15:25 96 100 07/18/16 13:20 146/82 98 07/18/16 13:18 95 70 07/18/16 13:00 101/66 93 07/18/16 12:30 97.0 67 20 101/66 94 07/18/16 12:00 96.9 76 18 144/85 93 07/18/16 08:00 67 07/18/16 08:00 97.6 70 16 142/81 93 07/18/16 06:08 97.5 70 20 127/70 94 07/17/16 23:49 97.6 70 20 136/75 95 07/17/16 23:33 3 Nasal Cannula 3.00 07/17/16 22:22 16 07/17/16 20:16 97.6 74 20 147/77 94 07/17/16 16:00 97.6 63 16 159/80 95 -: 07/18/16 1309 07/18/16 1309 Physical Exam General Appearance: Well Developed, Obese Neck Neck Exam: Neck Supple Pulmonary Resp Exam: Decreased Bases Cardiology CV Exam: Regular, Normal Sinus Rhythm Gastrointestinal/Abdomen GI Exam: Soft, Distended Extremeties Extremities Exam: Moderate Edema Assessment/Plan Problem List: (1) Stage 4 chronic kidney disease Plan: Patient with advanced kidney disease and the has been evaluated by Dr. Medley in May, on Bumex 1 mg q 12 MATEUS/SPEP Neg now intubated Nephrotic proteinuria 10 grams possibly will need dialysis soon (2) Nephrotic syndrome Plan: Protein to creatinine ratio above 10 10.52 (3) Acute exacerbation of CHF (congestive heart failure) Plan: This is likely due to chronic kidney disease and diastolic dysfunction (4) Diabetes Plan: Advance manifestations diabetic nephropathy, retinopathy and neuropathy (5) HTN (hypertension) Plan: Continue to monitor (6) Respiratory failure Plan: intubated Problem Qualifiers (1) Acute exacerbation of CHF (congestive heart failure): Qualified Code: I50.9 - Acute on chronic congestive heart failure, unspecified congestive heart failure type (2) Diabetes: (3) HTN (hypertension): Qualified Code: I10 - Essential hypertension Ebony Garcia MD Jul 18, 2016 15:36
--- NOTE | 2016-07-18 15:49 | MB ---
cc: FARZANEH PONCE M.D. DATE OF CONSULTATION: 07/18/2016. HISTORY OF PRESENT ILLNESS: She is a 50-year-old seen as a stroke alert. The stroke alert was called some twenty to thirty minutes ago. She was in the emergency room floor for cardiac reasons and at about twelve o'clock seemed to be acting fine from a neurological standpoint. The nursing staff observed that she seemed to be groggy earlier today. Last night she was on heparin drip for increased troponin. She had an ABG that showed significant hypoxemia after this unresponsiveness that evolved around 12:30. She was briefly seen as an emergency evaluation was undertaken. A CT brain was negative. She has been intubated because of her respiratory failure and she is going to have an MRI brain. I looked at the laboratory data. Her APTT was in normal range. Her platelet count is normal and her serum glucose was mildly elevated earlier today. I was able to pull her heart monitor strips with the RN that was taking care of the patient and it is noted that the patient was in ventricular tachycardia, unclear if this was prolonged but it may have lasted almost a minute according to the additional strip that showed the patient back in sinus rhythm. She did not have oxygen saturation monitor as far as I can gather. ASSESSMENT: Sudden unresponsiveness with hypoxemia and cardiac arrhythmia. At this point, this is likely more like cardiac event rather than a brain attack / acute ischemic stroke. The MRI should be very helpful in looking for the possibility of brain stem ischemia. We will gather the results of these before making additional decisions. I will follow the neurological care. The last MRI is pointing towards a brain stem ischemic event or other hemisphere major ischemic event; tPA will not be given from a neurological standpoint. MD SCOTTIE Loera/COOPER /1:21 PM /3:43 PM
[2016-07-18] MEDS: RESP: ALBUTEROL 2.5 MG/IPRATROPIUM 0.5 MG NEB (SCH) NEB ×2 (16:03→21:11)
[2016-07-18 16:09] LABS: ALT (GPT) 14 U/L (10-53); ANION GAP 8 MEQ/L (5-15); AST (GOT) 10 U/L (15-37); BICARBONATE 24.1 MEQ/L (21.0-32.0); BLOOD UREA NITROGEN 36 MG/DL (7-18); CHLORIDE 105 MEQ/L (98-107); GLOMERULAR FILTRATION RATE 13 ML/MIN (>89); MAGNESIUM 2.2 MG/DL (1.5-2.5); POTASSIUM 5.2 MEQ/L (3.5-5.1); SODIUM (NA) 137 MEQ/L (136-145)
[2016-07-18 16:12] LABS: ALKALINE PHOSPHATASE 119 U/L (45-117); TOTAL BILIRUBIN ADULT 0.6 MG/DL (0.2-1.0)
--- NOTE | 2016-07-18 16:21 | RADRPT ---
EXAM DATE/TIME: 07/18/2016 15:39 [facility] COMPARISON: No previous studies available for comparison. INDICATIONS : Evaluate abodomen for MRI clearance. MEDICAL HISTORY : None. SURGICAL HISTORY : None. ENCOUNTER: Initial ACUITY: 1 day PAIN SCORE: Non-responsive. LOCATION: Abdomen. FINDINGS: Scattered gas in nondilated all bowel. No foreign bodies identified. Degenerative findings a lumbar s pine. CONCLUSION: No evidence of obstruction. No MRI incompatible foreign body is identified. Eliezer Shay MD on July 18, 2016 at 16:16 Board Certified Radiologist. This report was verified electronically.
--- NOTE | 2016-07-18 18:04 | RADRPT ---
EXAM DATE/TIME: 07/18/2016 17:15 [facility] COMPARISON: No previous studies available for comparison. INDICATIONS : CVA. MEDICAL HISTORY : Unknown. SURGICAL HISTORY : Unknown. ENCOUNTER: Initial ACUITY: 1 day PAIN SCORE: Nonresponsive. LOCATION: Head. TECHNIQUE: Multiplanar, multisequence MRI of the brain was performed without contrast. FINDINGS: CEREBRUM: The ventricles are normal for age. No evidence of midline shift, mass lesion, hemorrhage or acute in farction. No extraaxial fluid collections are seen. The pituitary gland and suprasellar cistern are normal in configuration. WHITE MATTER: Multiple foci of periventricular white matter hyperintensity are identified in the frontal regions bi laterally. Small white matter hyperintensity focus in the left cerebellar hemisphere. POSTERIOR FOSSA: The cerebellum and brainstem are intact. The 4th ventricle is midline. The cerebellopontine angle is unremarkable. The cerebellar tonsils are normal in position. DIFFUSION IMAGING: No focal areas of restricted diffusion are seen. No evidence of acute infarction. EXTRACRANIAL: The visualized portions of the orbits and paranasal sinuses are unremarkable. CONCLUSION: White matter hyperintensities prominent for age indicating possible demyelinating dis order. No evidence of acute infarct. Eliezer Shay MD on July 18, 2016 at 17:59 Board Certified Radiologist. This report was verified electronically.
--- NOTE | 2016-07-18 19:21 | PD.PROCEDR ---
Procedure Note Procedure Endotracheal Intubation Diagnosis: Acute hypoxic and hypercarbic respiratory failure Indications: Acute hypoxic hypercarbic respiratory failure Consent: Consent is deemed emergent or medically necessary Anesthesia: And etomidate 20 mg IV, succinylcholine 140 mg IV Description of the Procedure: The patient was positioned in the sniffing position. Pre-oxygenation was performed using a nonrebreather mask. Anesthesia was induced via rapid sequence. A Silva #2 was used for laryngoscopy and a Grade 2 view was obtained. A 7.5 cuffed endotracheal tube was inserted atraumatically through the vocal cords. Confirmation of correct endotracheal tube placement was made by equal and bilateral breath sounds and colorimetric CO2 detection. The endotracheal tube was secured at 23 cm at the teeth. There were no immediate complications noted. The patient remained hemodynamically stable throughout the procedure. A chest x-ray has been ordered. I personally performed the procedure. Jose Francisco Goff MD Jul 18, 2016 19:21
[2016-07-18] MEDS: PROPOFOL 1000 MG/100 ML INJ 100 ML IV SCH (19:56)
[2016-07-18] MEDS: CHLORHEXIDINE 0.12% (ORAL KIT) 15 ML CUP MT SCH (19:57)
[2016-07-18] MEDS: ATORVASTATIN 80 MG TAB PO SCH (22:24)
[2016-07-18] MEDS: AMITRIPTYLINE HCL 50 MG TAB PO SCH (22:24)
[2016-07-18] MEDS: SODIUM CHLORIDE 0.9% FLUSH 5 ML FLUSH IVF SCH (22:25)
[2016-07-18] MEDS: CHLORHEXIDINE GLUCONATE 2 % 1 PACK (2 CLOTHS) TOP SCH (22:25)
[2016-07-19] VITALS (18 sets, daily range): BP systolic 140–171; BP diastolic 72–87; PULSE 56–73; RESP 20–28; TEMP 98.4–99; O2SAT 93–100
[2016-07-19] MEDS: PROPOFOL 1000 MG/100 ML INJ 100 ML IV SCH ×3 (00:13→22:02)
[2016-07-19] MEDS: ACETAMINOPHEN/HYDROcodone 325 MG/5 MG TAB PO PRN (00:30)
[2016-07-19] MEDS: RESP: ALBUTEROL 2.5 MG/IPRATROPIUM 0.5 MG NEB (SCH) NEB ×4 (03:27→19:51)
[2016-07-19] MEDS ORDERED: SODIUM BICARBONATE 8.4% INJ 50 MEQ/50 ML SYR IV ONE (05:00)
[2016-07-19] MEDS ORDERED: EPINEPHrine HCL (1:10,000) 1 MG/10 ML SYRINGE IV ONE (05:00)
[2016-07-19 05:30] LABS: AUTOMATED NEUTROPHIL # 2.8 TH/MM3 (1.8-7.7); BASOPHIL % 0.9 % (0.0-2.0); EOSINOPHIL # 0.2 TH/MM3 (0-0.4); EOSINOPHIL % 4.6 % (0.0-4.0); LYMPH % 20.8 % (9.0-44.0); MEAN CELL VOLUME 71.5 FL (80.0-100.0); MEAN CORPUSCULAR HEMOGLOBIN 22.5 PG (27.0-34.0); MEAN CORPUSCULAR HGB CONC 31.4 % (32.0-36.0); MONO % 12.9 % (0.0-8.0); NEUT % 60.8 % (16.0-70.0); PLATELET COUNT 178 TH/MM3 (150-450); RED BLOOD COUNT 3.92 MIL/MM3 (4.00-5.30); RED CELL DISTRIBUTION WIDTH 19.1 % (11.6-17.2); WHITE BLOOD COUNT 4.6 TH/MM3 (4.0-11.0)
[2016-07-19 05:33] LABS: HEMO FLAGS AUTO DIFF
[2016-07-19 05:37] LABS: ALKALINE PHOSPHATASE 103 U/L (45-117); ALT (GPT) 11 U/L (10-53); ANION GAP 9 MEQ/L (5-15); AST (GOT) 8 U/L (15-37); BICARBONATE 24.1 MEQ/L (21.0-32.0); BLOOD UREA NITROGEN 37 MG/DL (7-18); CHLORIDE 106 MEQ/L (98-107); GLOMERULAR FILTRATION RATE 13 ML/MIN (>89); POTASSIUM 4.4 MEQ/L (3.5-5.1); SODIUM (NA) 139 MEQ/L (136-145); TOTAL BILIRUBIN ADULT 0.4 MG/DL (0.2-1.0)
[2016-07-19 06:58] LABS: PLATELET ESTIMATE SMEAR NORMAL (NORMAL); PLATELET MORPHOLOGY NORMAL (NORMAL); SCAN/DIFF AUTO DIFF CONFIRMED
[2016-07-19] MEDS: INSULIN ASPART SUPPLEMENTAL SCALE SQ SCH ×4 (07:00→21:00)
[2016-07-19] MEDS: ALBUMIN HUMAN 25% 25 GM/100 ML BAGP IV SCH ×2 (08:21→18:06)
[2016-07-19] MEDS: CHLORHEXIDINE 0.12% (ORAL KIT) 15 ML CUP MT SCH ×2 (08:21→22:02)
[2016-07-19] MEDS: ASPIRIN EC 81 MG TABEC PO SCH (08:22)
[2016-07-19] MEDS: PANTOPRAZOLE SODIUM 40 MG VIAL IV SCH (08:22)
[2016-07-19] MEDS: LISINOPRIL 20 MG TAB PO SCH (08:22)
[2016-07-19] MEDS: hydrALAZINE HCL 50 MG TAB PO SCH ×3 (08:22→18:07)
[2016-07-19] MEDS: BUMETANIDE INJ 1 MG/4 ML VIAL IV PUSH SCH ×2 (08:22→18:07)
[2016-07-19] MEDS: FERROUS SULFATE 325 MG (65 MG ELEMENTAL IRON) TAB PO SCH ×2 (08:22→21:00)
[2016-07-19] MEDS: GABAPENTIN 300 MG CAP PO SCH ×3 (08:22→18:07)
[2016-07-19] MEDS: CARVEDILOL 12.5 MG TAB PO SCH ×2 (08:22→22:03)
[2016-07-19] MEDS: SODIUM CHLORIDE 0.9% FLUSH 5 ML FLUSH IVF SCH ×2 (08:23→22:03)
--- NOTE | 2016-07-19 09:08 | HHI.PR ---
Review/Management Daily Summary doing better, intubated diprivan held this am and pt started following commands, moves all 4 limbs very mildly on request she gazes to right and left I don't think she had a neurologic event, will fiollow with an EEG as well otherwise prn neuro Subjective Subjective Comments No acute neuro events reported Active Medications Current Medications Medications (Trade) Dose Ordered Sig/Christa Route Start Time Stop Time Status Last Admin (Narcan Inj) 0.4 mg UNSCH PRN IV 07/15/16 20:45 (Bumex Inj) 1 mg BID@09,18 IV PUSH 07/16/16 09:00 07/19/16 08:22 (Elavil) 50 mg HS PO 07/16/16 21:00 07/18/16 22:24 (Norvasc) 10 mg DAILY PO 07/16/16 09:00 Hold 07/18/16 11:04 (Ecotrin Ec) 81 mg DAILY PO 07/16/16 09:00 07/19/16 08:22 (Lipitor) 80 mg HS PO 07/16/16 21:00 07/18/16 22:24 (Coreg) 25 mg BID PO 07/16/16 09:00 07/19/16 08:22 (Ferrous Sulfate) 325 mg BID PO 07/16/16 09:00 07/19/16 08:22 (Neurontin) 300 mg TID PO 07/16/16 09:00 07/19/16 08:22 (Apresoline) 50 mg TID PO 07/16/16 09:00 07/19/16 08:22 (D50w (Vial) Inj) 25 ml UNSCH PRN IV PUSH 07/16/16 06:30 (Glucagon Inj) 1 mg UNSCH PRN OTHER 07/16/16 06:30 (Albumin 25% Inj) 25 gm BID@ IV 07/16/16 17:00 07/19/16 08:21 (Prinivil) 20 mg DAILY PO 07/17/16 09:00 07/19/16 08:22 ([place] 5-325 Mg) 1 tab Q6H PRN PO 07/16/16 23:30 07/19/16 00:30 Ondansetron HCl 4 mg 4 mg Q6HR PRN IV PUSH 07/18/16 06:00 07/18/16 05:57 (Diprivan 1000 Mg/100ml Inj) 100 ml @ 0 mls/hr TITRATE IV 07/18/16 13:30 07/19/16 08:22 (NS Flush) 2 ml UNSCH PRN IVF 07/18/16 13:45 (NS Flush) 2 ml BID IVF 07/18/16 21:00 07/19/16 08:23 (Peridex 0.12% Liq) 15 ml BID@08,20 MT 07/18/16 20:00 07/19/16 08:21 (Protonix Inj) 40 mg DAILY IV 07/19/16 09:00 07/19/16 08:22 Miscellaneous Information 1 Q361D XX 07/18/16 13:45 07/18/16 13:45 (Chlorhexidine 2% Cloth) 3 pack Taper DAILY@04 TOP 07/19/16 04:00 07/15/17 03:59 07/18/16 22:25 (Chlorhexidine 2% Cloth) 3 pack UNSCH PRN TOP 07/18/16 13:45 Allergies Allergies Coded Allergies Lyrica (Verified Allergy, Severe, Anaphylaxis, 07/15/16) *MDRO Multi-Drug Resistant Organism (Verified Adverse Reaction, Unknown, ) Exam I&O / VS 07/18/16 07/18/16 07/19/16 15:00 23:00 07:00 Intake Total 337 ml 181 ml Output Total 1250 ml 950 ml Balance -913 ml -769 ml IV Total 157 ml 181 ml Other 180 ml Output Urine Total 1250 ml 950 ml # Bowel Movements 1 Vital Signs Date Time Temp Pulse Resp B/P Pulse Ox O2 Delivery O2 Flow Rate FiO2 07/19/16 08:34 40 07/19/16 08:00 40 07/19/16 08:00 57 07/19/16 08:00 98.5 57 22 154/72 95 07/19/16 07:27 97 Mechanical Ventilator 40 07/19/16 07:22 97 40 07/19/16 06:00 57 07/19/16 04:00 98.4 56 20 164/81 98 07/19/16 04:00 40 07/19/16 04:00 56 07/19/16 03:27 100 40 07/19/16 02:00 61 07/19/16 01:30 20 07/19/16 00:47 98 40 07/19/16 00:00 98.4 61 20 171/87 97 07/19/16 00:00 61 07/19/16 00:00 40 07/18/16 21:11 100 50 07/18/16 20:00 98 Mechanical Ventilator 60 07/18/16 20:00 68 07/18/16 20:00 98.3 68 20 169/90 98 07/18/16 19:41 99 60 07/18/16 17:15 96 100 07/18/16 15:28 95 100 07/18/16 15:25 96 100 07/18/16 13:20 146/82 98 07/18/16 13:18 95 70 07/18/16 13:00 101/66 93 07/18/16 12:30 97.0 67 20 101/66 94 07/18/16 12:00 96.9 76 18 144/85 93 Objective Radiology Results Last [address] 07/18/16 1237 Signed Impressions: Service Date/Time: July 12:43 - CONCLUSION: 1. No evidence of acute intracranial pathology. No masses are identified. Emre Daniel MD Chest X-Ray 07/18/16 0000 Signed Impressions: Service Date/Time: July 13:33 - CONCLUSION: 1. Endotracheal tube in place. 2. Low lung volumes with new bilateral pulmonary opacities suggesting atelectasis versus mild pulmonary edema. Eliezer Shay MD Brain MRI 07/18/16 0000 Signed Impressions: Service Date/Time: July 17:15 - CONCLUSION: White matter hyperintensities prominent for age indicating possible demyelinating disorder. No evidence of acute infarct. Eliezer Shay MD Abdomen X-Ray 07/18/16 0000 Signed Impressions: Service Date/Time: July 15:39 - CONCLUSION: No evidence of obstruction. No MRI incompatible foreign body is identified. Eliezer Shay MD Micro and Labs Laboratory Tests Test 07/18/16 07/18/16 07/18/16 07/18/16 12:33 13:09 14:13 15:01 Blood Gas Puncture Site RT RADIAL LT RADIAL Blood Gas Patient Temperature 98.6 98.6 Blood Gas HCO3 25 22 Blood Gas Base Excess -4.1 -3.1 Blood Gas Oxygen Saturation 74 94 Arterial Blood pH 7.08 7.29 Arterial Blood Partial 87 48 Pressure CO2 Arterial Blood Partial 49 122 Pressure O2 Arterial Blood Oxygen Content 10.1 12.6 Arterial Blood 1.9 2.5 Carboxyhemoglobin Arterial Blood Methemoglobin 2.2 2.1 Blood Gas Hemoglobin 9.7 9.4 Oxygen Delivery Device NASAL CANNULA VENTILATOR Blood Gas Liter Flow 2 White Blood Count 5.4 Red Blood Count 4.25 Hemoglobin 9.6 Hematocrit 31.2 Mean Corpuscular Volume 73.6 Mean Corpuscular Hemoglobin 22.7 Mean Corpuscular Hemoglobin 30.8 Concent Red Cell Distribution Width 19.3 Platelet Count 184 Mean Platelet Volume 9.6 Neutrophils (%) (Auto) 75.5 Lymphocytes (%) (Auto) 13.7 Monocytes (%) (Auto) 8.8 Eosinophils (%) (Auto) 1.5 Basophils (%) (Auto) 0.5 Neutrophils # (Auto) 4.1 Lymphocytes # (Auto) 0.7 Monocytes # (Auto) 0.5 Eosinophils # (Auto) 0.1 Basophils # (Auto) 0.0 CBC Comment AUTO DIFF Differential Comment AUTO DIFF CONFIRMED Ovalocytes 1+ Keratocytes OCC Sodium Level 135 137 Potassium Level 5.3 5.2 Chloride Level 105 105 Carbon Dioxide Level 28.3 24.1 Anion Gap 2 8 Blood Urea Nitrogen 39 36 Creatinine 3.89 3.78 Estimat Glomerular Filtration 12 13 Rate Random Glucose 164 154 Calcium Level 8.0 8.3 Total Bilirubin 0.3 0.6 Aspartate Amino Transf 7 10 (AST/SGOT) Alanine Aminotransferase 14 14 (ALT/SGPT) Alkaline Phosphatase 122 119 Total Protein 7.2 7.0 Albumin 3.1 3.1 Blood Gas Ventilator Setting AC/ 20/550/PEEP 5 Blood Gas Inspired Oxygen 70 Phosphorus Level 5.1 Magnesium Level 2.2 Total Creatine Kinase 137 Troponin I 0.09 Test 07/18/16 07/18/16 07/18/16 07/19/16 15:27 15:30 20:46 03:57 Ammonia 62 Nasal Screen MRSA (PCR) POSITIVE Total Creatine Kinase 158 Troponin I 0.13 White Blood Count 4.6 Red Blood Count 3.92 Hemoglobin 8.8 Hematocrit 28.0 Mean Corpuscular Volume 71.5 Mean Corpuscular Hemoglobin 22.5 Mean Corpuscular Hemoglobin 31.4 Concent Red Cell Distribution Width 19.1 Platelet Count 178 Mean Platelet Volume 9.9 Neutrophils (%) (Auto) 60.8 Lymphocytes (%) (Auto) 20.8 Monocytes (%) (Auto) 12.9 Eosinophils (%) (Auto) 4.6 Basophils (%) (Auto) 0.9 Neutrophils # (Auto) 2.8 Lymphocytes # (Auto) 1.0 Monocytes # (Auto) 0.6 Eosinophils # (Auto) 0.2 Basophils # (Auto) 0.0 CBC Comment AUTO DIFF Differential Comment AUTO DIFF CONFIRMED Platelet Estimate NORMAL Platelet Morphology Comment NORMAL Sodium Level 139 Potassium Level 4.4 Chloride Level 106 Carbon Dioxide Level 24.1 Anion Gap 9 Blood Urea Nitrogen 37 Creatinine 3.79 Estimat Glomerular Filtration 13 Rate Random Glucose 97 Calcium Level 8.0 Total Bilirubin 0.4 Aspartate Amino Transf 8 (AST/SGOT) Alanine Aminotransferase 11 (ALT/SGPT) Alkaline Phosphatase 103 Total Protein 6.2 Albumin 2.8 Chip Estes MD Jul 19, 2016 09:08
--- NOTE | 2016-07-19 09:27 | PD.CARD.PN ---
Subjective Subjective Remarks Events yesterday reviewed with Dr. Reynaga Currently awake on the vent, denies chest pain Objective Medications Current Medications Medications (Trade) Dose Ordered Sig/Christa Route Start Time Stop Time Status Last Admin (Narcan Inj) 0.4 mg UNSCH PRN IV 07/15/16 20:45 (Bumex Inj) 1 mg BID@09,18 IV PUSH 07/16/16 09:00 07/19/16 08:22 (Elavil) 50 mg HS PO 07/16/16 21:00 07/18/16 22:24 (Norvasc) 10 mg DAILY PO 07/16/16 09:00 Hold 07/18/16 11:04 (Ecotrin Ec) 81 mg DAILY PO 07/16/16 09:00 07/19/16 08:22 (Lipitor) 80 mg HS PO 07/16/16 21:00 07/18/16 22:24 (Coreg) 25 mg BID PO 07/16/16 09:00 07/19/16 08:22 (Ferrous Sulfate) 325 mg BID PO 07/16/16 09:00 07/19/16 08:22 (Neurontin) 300 mg TID PO 07/16/16 09:00 07/19/16 08:22 (Apresoline) 50 mg TID PO 07/16/16 09:00 07/19/16 08:22 (D50w (Vial) Inj) 25 ml UNSCH PRN IV PUSH 07/16/16 06:30 (Glucagon Inj) 1 mg UNSCH PRN OTHER 07/16/16 06:30 (Albumin 25% Inj) 25 gm BID@, IV 07/16/16 17:00 07/19/16 08:21 (Prinivil) 20 mg DAILY PO 07/17/16 09:00 07/19/16 08:22 ([place] 5-325 Mg) 1 tab Q6H PRN PO 07/16/16 23:30 07/19/16 00:30 Ondansetron HCl 4 mg 4 mg Q6HR PRN IV PUSH 07/18/16 06:00 07/18/16 05:57 (Diprivan 1000 Mg/100ml Inj) 100 ml @ 0 mls/hr TITRATE IV 07/18/16 13:30 07/19/16 08:22 (NS Flush) 2 ml UNSCH PRN IVF 07/18/16 13:45 (NS Flush) 2 ml BID IVF 07/18/16 21:00 07/19/16 08:23 (Peridex 0.12% Liq) 15 ml BID@08,20 MT 07/18/16 20:00 07/19/16 08:21 (Protonix Inj) 40 mg DAILY IV 07/19/16 09:00 07/19/16 08:22 Miscellaneous Information 1 Q361D XX 07/18/16 13:45 07/18/16 13:45 (Chlorhexidine 2% Cloth) 3 pack Taper DAILY@04 TOP 07/19/16 04:00 07/15/17 03:59 07/18/16 22:25 (Chlorhexidine 2% Cloth) 3 pack UNSCH PRN [facility] 07/18/16 13:45 Vital Signs / I&O Vital Signs Date Time Temp Pulse Resp B/P Pulse Ox O2 Delivery O2 Flow Rate FiO2 07/19/16 08:34 40 07/19/16 08:00 40 07/19/16 08:00 57 07/19/16 08:00 98.5 57 22 154/72 95 07/19/16 07:27 97 Mechanical Ventilator 40 07/19/16 07:22 97 40 07/19/16 06:00 57 07/19/16 04:00 98.4 56 20 164/81 98 07/19/16 04:00 40 07/19/16 04:00 56 07/19/16 03:27 100 40 07/19/16 02:00 61 07/19/16 01:30 20 07/19/16 00:47 98 40 07/19/16 00:00 98.4 61 20 171/87 97 07/19/16 00:00 61 07/19/16 00:00 40 07/18/16 21:11 100 50 07/18/16 20:00 98 Mechanical Ventilator 60 07/18/16 20:00 68 07/18/16 20:00 98.3 68 20 169/90 98 07/18/16 19:41 99 60 07/18/16 17:15 96 100 07/18/16 15:28 95 100 07/18/16 15:25 96 100 07/18/16 13:20 146/82 98 07/18/16 13:18 95 70 07/18/16 13:00 101/66 93 07/18/16 12:30 97.0 67 20 101/66 94 07/18/16 12:00 96.9 76 18 144/85 93 I/O 07/18/16 07/18/16 07/18/16 07/19/16 07/19/16 07/19/16 07:00 15:00 23:00 07:00 15:00 23:00 Intake Total 337 ml 181 ml Output Total 1250 ml 950 ml Balance -913 ml -769 ml IV Total 157 ml 181 ml Other 180 ml Output Urine Total 1250 ml 950 ml # Bowel Movements 1 Physical Exam GENERAL: NAD, awake on the vent SKIN: Warm and dry. HEAD: Atraumatic. Normocephalic. EYES: Pupils equal and round. No scleral icterus. No injection or drainage. ENT: No nasal bleeding or discharge. Mucous membranes pink and moist. NECK: Trachea midline. No JVD. CARDIOVASCULAR: Regular rate and rhythm. RESPIRATORY: No accessory muscle use. Decreased breath sounds bilaterally GASTROINTESTINAL: Abdomen soft, non-tender, nondistended. Hepatic and splenic margins not palpable. MUSCULOSKELETAL: 2+ pitting edema bilaterally NEUROLOGICAL: Awake and alert. No obvious cranial nerve deficits. Moving all extremities PSYCHIATRIC: Appropriate mood and affect; insight and judgment normal. Laboratory Laboratory Tests Test 07/18/16 07/18/16 07/18/16 07/18/16 12:33 13:09 14:13 15:01 Blood Gas Puncture Site RT RADIAL LT RADIAL Blood Gas Patient Temperature 98.6 98.6 Blood Gas HCO3 25 mmol/L 22 mmol/L Blood Gas Base Excess -4.1 mmol/L -3.1 mmol/L Blood Gas Oxygen Saturation 74 % 94 % Arterial Blood pH 7.08 7.29 Arterial Blood Partial 87 mmHg 48 mmHg Pressure CO2 Arterial Blood Partial 49 mmHG 122 mmHG Pressure O2 Arterial Blood Oxygen Content 10.1 Vol % 12.6 Vol % Arterial Blood 1.9 % 2.5 % Carboxyhemoglobin Arterial Blood Methemoglobin 2.2 % 2.1 % Blood Gas Hemoglobin 9.7 G/DL 9.4 G/DL Oxygen Delivery Device NASAL CANNULA VENTILATOR Blood Gas Liter Flow 2 L/M White Blood Count 5.4 TH/MM3 Red Blood Count 4.25 MIL/MM3 Hemoglobin 9.6 GM/DL Hematocrit 31.2 % Mean Corpuscular Volume 73.6 FL Mean Corpuscular Hemoglobin 22.7 PG Mean Corpuscular Hemoglobin 30.8 % Concent Red Cell Distribution Width 19.3 % Platelet Count 184 TH/MM3 Mean Platelet Volume 9.6 FL Neutrophils (%) (Auto) 75.5 % Lymphocytes (%) (Auto) 13.7 % Monocytes (%) (Auto) 8.8 % Eosinophils (%) (Auto) 1.5 % Basophils (%) (Auto) 0.5 % Neutrophils # (Auto) 4.1 TH/MM3 Lymphocytes # (Auto) 0.7 TH/MM3 Monocytes # (Auto) 0.5 TH/MM3 Eosinophils # (Auto) 0.1 TH/MM3 Basophils # (Auto) 0.0 TH/MM3 CBC Comment AUTO DIFF Differential Comment AUTO DIFF CONFIRMED Ovalocytes 1+ Keratocytes OCC Sodium Level 135 MEQ/L 137 MEQ/L Potassium Level 5.3 MEQ/L 5.2 MEQ/L Chloride Level 105 MEQ/L 105 MEQ/L Carbon Dioxide Level 28.3 MEQ/L 24.1 MEQ/L Anion Gap 2 MEQ/L 8 MEQ/L Blood Urea Nitrogen 39 MG/DL 36 MG/DL Creatinine 3.89 MG/DL 3.78 MG/DL Estimat Glomerular Filtration 12 ML/MIN 13 ML/MIN Rate Random Glucose 164 MG/DL 154 MG/DL Calcium Level 8.0 MG/DL 8.3 MG/DL Total Bilirubin 0.3 MG/DL 0.6 MG/DL Aspartate Amino Transf 7 U/L 10 U/L (AST/SGOT) Alanine Aminotransferase 14 U/L 14 U/L (ALT/SGPT) Alkaline Phosphatase 122 U/L 119 U/L Total Protein 7.2 GM/DL 7.0 GM/DL Albumin 3.1 GM/DL 3.1 GM/DL Blood Gas Ventilator Setting AC/ 20/550/PEEP 5 Blood Gas Inspired Oxygen 70 % Phosphorus Level 5.1 MG/DL Magnesium Level 2.2 MG/DL Total Creatine Kinase 137 U/L Troponin I 0.09 NG/ML Test 07/18/16 07/18/16 07/18/16 07/19/16 15:27 15:30 20:46 03:57 Ammonia 62 MCMOL/L Nasal Screen MRSA (PCR) POSITIVE Total Creatine Kinase 158 U/L Troponin I 0.13 NG/ML White Blood Count 4.6 TH/MM3 Red Blood Count 3.92 MIL/MM3 Hemoglobin 8.8 GM/DL Hematocrit 28.0 % Mean Corpuscular Volume 71.5 FL Mean Corpuscular Hemoglobin 22.5 PG Mean Corpuscular Hemoglobin 31.4 % Concent Red Cell Distribution Width 19.1 % Platelet Count 178 TH/MM3 Mean Platelet Volume 9.9 FL Neutrophils (%) (Auto) 60.8 % Lymphocytes (%) (Auto) 20.8 % Monocytes (%) (Auto) 12.9 % Eosinophils (%) (Auto) 4.6 % Basophils (%) (Auto) 0.9 % Neutrophils # (Auto) 2.8 TH/MM3 Lymphocytes # (Auto) 1.0 TH/MM3 Monocytes # (Auto) 0.6 TH/MM3 Eosinophils # (Auto) 0.2 TH/MM3 Basophils # (Auto) 0.0 TH/MM3 CBC Comment AUTO DIFF Differential Comment AUTO DIFF CONFIRMED Platelet Estimate NORMAL Platelet Morphology Comment NORMAL Sodium Level 139 MEQ/L Potassium Level 4.4 MEQ/L Chloride Level 106 MEQ/L Carbon Dioxide Level 24.1 MEQ/L Anion Gap 9 MEQ/L Blood Urea Nitrogen 37 MG/DL Creatinine 3.79 MG/DL Estimat Glomerular Filtration 13 ML/MIN Rate Random Glucose 97 MG/DL Calcium Level 8.0 MG/DL Total Bilirubin 0.4 MG/DL Aspartate Amino Transf 8 U/L (AST/SGOT) Alanine Aminotransferase 11 U/L (ALT/SGPT) Alkaline Phosphatase 103 U/L Total Protein 6.2 GM/DL Albumin 2.8 GM/DL Assessment and Plan Problem List: (1) Acute exacerbation of CHF (congestive heart failure) (2) Stage 4 chronic kidney disease (3) HTN (hypertension) (4) Diabetes (5) Elevated troponin (6) Stented coronary artery (7) Respiratory failure Assessment and Plan 1) Admitted with increased edema and SOB, denies CP... ran out of diuretic at home for 2 weeks, unable to get in to see primary doctor (needs a new one) 2) Continue gentle diuresis as possible 3) Minimally elevated troponin, most likely due to fluid overloaded state, HTN episode, CKD... previous stress test showing mild small lateral wall defect, offered diagnostic cath with a plan for staged intervention if needed, wants to continue medical management, does not want to take the chance of going on HD, but explained my concern that she will eventually be there 4) Acute event yesterday appears more CO2 retaining, most likely obesity hypoventilation type picture... troponin minimally elevated with event most likely due to hypoxemia 5) Vent per critical care Problem Qualifiers (1) Acute exacerbation of CHF (congestive heart failure): Qualified Code: I50.9 - Acute on chronic congestive heart failure, unspecified congestive heart failure type (2) HTN (hypertension): Qualified Code: I10 - Essential hypertension (3) Diabetes: Juancho Choudhury DO Jul 19, 2016 09:27
[2016-07-19 11:46] LABS: BLOOD GAS BASE EXCESS -3.1 mmol/L (-2-2); BLOOD GAS CARBOXYHEMOGLOBIN 1.4 % (0-4); BLOOD GAS HCO3 23 mmol/L (22-26); BLOOD GAS METHEMOGLOBIN 1.2 % (0-2); BLOOD GAS O2 HGB SATURATION 94 % (90-100); BLOOD GAS OXYGEN CONTENT 12.8 Vol % (12.0-20.0); BLOOD GAS PCO2 50 mmHg (38-42); BLOOD GAS PO2 90 mmHg (61-120); BLOOD GAS TOTAL HGB 9.6 G/DL (12.0-16.0); TEMP CORR TO 98.6
[2016-07-19 11:47] LABS: CRITICAL VALUE YES; DRAW SITE LT RADIAL; FIO2 40 %; NUMBER OF ARTERIAL PUNCTURES 1; OXYGEN DEVICE VENTILATOR; STAT NO; ULNAR PULSE PRESENT
[2016-07-19] MEDS ORDERED: HEPARIN SODIUM - IV 10,000 UNITS/10 ML VIAL IVF PRN (12:15)
[2016-07-19] MEDS ORDERED: ONDANSETRON HCL 4 MG/2 ML VIAL IV PRN (12:15)
[2016-07-19] MEDS ORDERED: SODIUM CHLORIDE 0.9% FLUSH 5 ML FLUSH IVF PRN (12:15)
[2016-07-19] MEDS ORDERED: GELATIN 12 MM/7 MM FOAM TOP PRN (12:15)
[2016-07-19] MEDS ORDERED: NITROGLYCERIN 0.4 MG SL 25 TABS/BTL SL PRN (12:15)
[2016-07-19] MEDS ORDERED: HEPARIN SODIUM - IV 10,000 UNITS/10 ML VIAL PRN (12:15)
[2016-07-19] MEDS ORDERED: diphenhydrAMINE HCL 25 MG CAP PO PRN (12:15)
[2016-07-19] MEDS ORDERED: EPOETIN ALFA 10,000 UNITS/ML VIAL IV PRN (12:15)
[2016-07-19] MEDS ORDERED: GENTAMICIN SULFATE (DIALYSIS USE ONLY) 20 MG/2 ML VIAL IV PRN (12:15)
[2016-07-19] MEDS ORDERED: MANNITOL 12.5 GM/50 ML VIAL IV PRN (12:15)
[2016-07-19] MEDS ORDERED: SODIUM CHLOR 0.9% 1000 ML INJ 1,000 ML IV PRN ×3 (12:15)
[2016-07-19] MEDS ORDERED: ALBUMIN HUMAN 25% 25 GM/100 ML BAGP IV PRN (12:15)
--- NOTE | 2016-07-19 12:20 | HHI.CCPN ---
Subjective Remarks/Hospital Course 07/18: 50 y/o female with a history of chf, depression, htn, dm, and ckd presented to the ED on 07/15 with complaints of dyspnea, swelling in her lower extremities and a 50lb weight gain since last admission 06/03/16. Patient had gained 50 lbs in fluid from last admission. She presented with increased shortness of breath with intermittent chest pressure with no radiation or associated symptoms. She was admitted on 05/31/16 and diagnosed with CHF, discharged home on on Bumex. Patient states she recently ran out of meds and has not followed up with a doctor due to transportation issues. She is not from here and her pcp is 2 hours away and she does not want her kids to take off work to take her to appointments. She is hoping to move back in 2 weeks or so. She states she tried to call a [employer] consultant to follow up but they required her records and she did not get them. Despite taking Bumex she states she has not had an increase in urination. Last admission 2d echo showed systolic dysfunction with EF 50%, she was seen by DR. Choudhury, and DR. Medley. Patient was admitted by hospitalist service. She was evaluated by Dr. Choudhury from cardiology who offered cardiac catheterization as patient did have an elevated troponin and previous abnormal stress test however she was concerned regarding ending up on hemodialysis so she refused. Patient was reportedly on nasal cannula earlier today however around 1:30 PM was noted to be lethargic and minimally responsive. Stroke alert was called. Head CT was negative for bleed. Recent had an ABG done which revealed pH of 7.0/PCO2 87/PO2 49. Critical care service was contacted by Dr. Mckeon. Both myself and Dr. Ott arrived at bedside. Patient was encephalopathic though arousable with painful stimuli occasional morning however not following commands. Her fingerstick glucose was in the 140s earlier. Decision was made to proceed with endotracheal intubation which was performed by Dr. Goff. A stat MRI brain was ordered to evaluate for CVA after discussion with Dr. Estes. 07/19: Awakens easily off sedation following commands this morning. On mechanical ventilation. MRI brain done yesterday did not show any acute event. Objective Vital Signs Date Time Temp Pulse Resp B/P Pulse Ox O2 Delivery O2 Flow Rate FiO2 07/19/16 10:00 62 07/19/16 08:34 40 07/19/16 08:00 98.5 22 154/72 95 07/19/16 07:27 Mechanical Ventilator 07/17/16 23:33 3.00 Intake and Output 07/18/16 07/18/16 07/19/16 08:00 16:00 00:00 Intake Total 337 ml Output Total 1250 ml Balance -913 ml Result Diagram: 07/19/16 0357 07/19/16 0357 Other Results Laboratory Tests Test 07/18/16 07/18/16 07/18/16 07/18/16 12:33 13:09 14:13 15:01 Blood Gas Puncture Site RT RADIAL LT RADIAL Blood Gas Patient Temperature 98.6 98.6 Blood Gas HCO3 25 mmol/L 22 mmol/L Blood Gas Base Excess -4.1 mmol/L -3.1 mmol/L Blood Gas Oxygen Saturation 74 % 94 % Arterial Blood pH 7.08 7.29 Arterial Blood Partial 87 mmHg 48 mmHg Pressure CO2 Arterial Blood Partial 49 mmHG 122 mmHG Pressure O2 Arterial Blood Oxygen Content 10.1 Vol % 12.6 Vol % Arterial Blood 1.9 % 2.5 % Carboxyhemoglobin Arterial Blood Methemoglobin 2.2 % 2.1 % Blood Gas Hemoglobin 9.7 G/DL 9.4 G/DL Oxygen Delivery Device NASAL CANNULA VENTILATOR Blood Gas Liter Flow 2 L/M White Blood Count 5.4 TH/MM3 Red Blood Count 4.25 MIL/MM3 Hemoglobin 9.6 GM/DL Hematocrit 31.2 % Mean Corpuscular Volume 73.6 FL Mean Corpuscular Hemoglobin 22.7 PG Mean Corpuscular Hemoglobin 30.8 % Concent Red Cell Distribution Width 19.3 % Platelet Count 184 TH/MM3 Mean Platelet Volume 9.6 FL Neutrophils (%) (Auto) 75.5 % Lymphocytes (%) (Auto) 13.7 % Monocytes (%) (Auto) 8.8 % Eosinophils (%) (Auto) 1.5 % Basophils (%) (Auto) 0.5 % Neutrophils # (Auto) 4.1 TH/MM3 Lymphocytes # (Auto) 0.7 TH/MM3 Monocytes # (Auto) 0.5 TH/MM3 Eosinophils # (Auto) 0.1 TH/MM3 Basophils # (Auto) 0.0 TH/MM3 CBC Comment AUTO DIFF Differential Comment AUTO DIFF CONFIRMED Ovalocytes 1+ Keratocytes OCC Sodium Level 135 MEQ/L 137 MEQ/L Potassium Level 5.3 MEQ/L 5.2 MEQ/L Chloride Level 105 MEQ/L 105 MEQ/L Carbon Dioxide Level 28.3 MEQ/L 24.1 MEQ/L Anion Gap 2 MEQ/L 8 MEQ/L Blood Urea Nitrogen 39 MG/DL 36 MG/DL Creatinine 3.89 MG/DL 3.78 MG/DL Estimat Glomerular Filtration 12 ML/MIN 13 ML/MIN Rate Random Glucose 164 MG/DL 154 MG/DL Calcium Level 8.0 MG/DL 8.3 MG/DL Total Bilirubin 0.3 MG/DL 0.6 MG/DL Aspartate Amino Transf 7 U/L 10 U/L (AST/SGOT) Alanine Aminotransferase 14 U/L 14 U/L (ALT/SGPT) Alkaline Phosphatase 122 U/L 119 U/L Total Protein 7.2 GM/DL 7.0 GM/DL Albumin 3.1 GM/DL 3.1 GM/DL Blood Gas Ventilator Setting AC/ 20/550/PEEP 5 Blood Gas Inspired Oxygen 70 % Phosphorus Level 5.1 MG/DL Magnesium Level 2.2 MG/DL Total Creatine Kinase 137 U/L Troponin I 0.09 NG/ML Test 07/18/16 07/18/16 07/18/16 07/19/16 15:27 15:30 20:46 03:57 Ammonia 62 MCMOL/L Nasal Screen MRSA (PCR) POSITIVE Total Creatine Kinase 158 U/L Troponin I 0.13 NG/ML White Blood Count 4.6 TH/MM3 Red Blood Count 3.92 MIL/MM3 Hemoglobin 8.8 GM/DL Hematocrit 28.0 % Mean Corpuscular Volume 71.5 FL Mean Corpuscular Hemoglobin 22.5 PG Mean Corpuscular Hemoglobin 31.4 % Concent Red Cell Distribution Width 19.1 % Platelet Count 178 TH/MM3 Mean Platelet Volume 9.9 FL Neutrophils (%) (Auto) 60.8 % Lymphocytes (%) (Auto) 20.8 % Monocytes (%) (Auto) 12.9 % Eosinophils (%) (Auto) 4.6 % Basophils (%) (Auto) 0.9 % Neutrophils # (Auto) 2.8 TH/MM3 Lymphocytes # (Auto) 1.0 TH/MM3 Monocytes # (Auto) 0.6 TH/MM3 Eosinophils # (Auto) 0.2 TH/MM3 Basophils # (Auto) 0.0 TH/MM3 CBC Comment AUTO DIFF Differential Comment AUTO DIFF CONFIRMED Platelet Estimate NORMAL Platelet Morphology Comment NORMAL Sodium Level 139 MEQ/L Potassium Level 4.4 MEQ/L Chloride Level 106 MEQ/L Carbon Dioxide Level 24.1 MEQ/L Anion Gap 9 MEQ/L Blood Urea Nitrogen 37 MG/DL Creatinine 3.79 MG/DL Estimat Glomerular Filtration 13 ML/MIN Rate Random Glucose 97 MG/DL Calcium Level 8.0 MG/DL Total Bilirubin 0.4 MG/DL Aspartate Amino Transf 8 U/L (AST/SGOT) Alanine Aminotransferase 11 U/L (ALT/SGPT) Alkaline Phosphatase 103 U/L Total Protein 6.2 GM/DL Albumin 2.8 GM/DL Test 07/19/16 11:34 Blood Gas Puncture Site LT RADIAL Blood Gas Patient Temperature 98.6 Blood Gas HCO3 23 mmol/L Blood Gas Base Excess -3.1 mmol/L Blood Gas Oxygen Saturation 94 % Arterial Blood pH 7.28 Arterial Blood Partial 50 mmHg Pressure CO2 Arterial Blood Partial 90 mmHg Pressure O2 Arterial Blood Oxygen Content 12.8 Vol % Arterial Blood 1.4 % Carboxyhemoglobin Arterial Blood Methemoglobin 1.2 % Blood Gas Hemoglobin 9.6 G/DL Oxygen Delivery Device VENTILATOR Blood Gas Ventilator Setting CPAP,PS5,PEEP5 Blood Gas Inspired Oxygen 40 % Imaging 07/18: Chest x-ray portable which was personally reviewed: ET tube above aryan, interstitial infiltrates more on the right consistent with pulmonary edema Last Impressions Head CT 07/18/16 1237 Signed Impressions: Service Date/Time: July 12:43 - CONCLUSION: 1. No evidence of acute intracranial pathology. No masses are identified. Emre Daniel MD Chest X-Ray 07/15/16 [id number] Signed Impressions: Service Date/Time: Friday, July 15, 2016 19:14 - CONCLUSION: 1. Basilar atelectasis. No significant effusion. No pneumothorax. George Choi MD Objective Remarks HEENT/ Neuro: Awake and alert off sedation, orally intubated, Pallor present, no icterus, tongue/ mucosa moist. Moves both upper extremities and withdraws lower extremities with pain. Neck: No JVD Chest/Pulm: on mech vent, good air entry bilaterally, no wheezing or crackles CVS: S1-S2 regular, no murmur GI/abdomen: soft, nontender, bowel sounds sluggish Extremities: warm bilaterally, bilateral edema A/P Assessment and Plan 50-year-old female with: Encephalopathy : Secondary to CO2 retention Acute respiratory failure on mechanical ventilation CHF non-ST elevation CT CKD Diabetes mellitus morbid obesity History of depression History of hypertension Plan: Neuro: Patient intubated for airway protection and placed on propofol for sedation. MRI brain did not reveal any acute ischemic changes. Head CT negative for bleed. Discussed with Dr. Estes from neurology on 07/18 who has been consulted. Continue aspirin. Cardiovascular: Cyclic cardiac enzymes. Discussed with Dr. Juancho Choudhury who was following her. Patient declined cardiac catheterization on 07/18 due to concern that she may end up on hemodialysis however Dr Garcia is planning on starting hemodialysis per my discussion with him today. Pulmonary: On mechanical ventilation this morning. Tolerating C Pap trials, ordered extubation, bronchodilators. Will use BiPAP when necessary GI/liver: We will advance by mouth diet if respiratory status permits Renal/: Strict intake output, monitor and replete electro lites, follow BUN/ creatinine. Being diuresed. Nephrology follow-up. Dr. Garcia planning to start hemodialysis. He will be scheduling PermCath placement by interventional radiology. ID: Send sputum cultures. Hold off on antibiotics at this time. Endocrine: SSI for glycemic control as needed Heme: Follow CBC. Prophylaxis: PPI/SCDs/Lovenox Discussed with Dr. Juancho Choudhury from cardiology, discussed with Dr. Garcia from neurology. Lopez Reynaga MD Jul 19, 2016 12:19
--- NOTE | 2016-07-19 12:21 | HHI.NPPN ---
Subjective History of Present Illness 50 year old with CKD 4/5 Diabetes Nephrotic range proteinuria Additional Remarks EXTUBATED Review of Systems General Constitutional: Fatigue Cardiovascular Cardiac: Edema Objective Data Data 07/18/16 07/19/16 19:00 07:00 Intake Total 518 ml Output Total 2200 ml Balance -1682 ml IV Total 338 ml Other 180 ml Output Urine Total 2200 ml # Bowel Movements 1 Vital Signs Date Time Temp Pulse Resp B/P Pulse Ox O2 Delivery O2 Flow Rate FiO2 07/19/16 12:07 93 Nasal Cannula 4 07/19/16 12:07 93 Nasal Cannula 4.00 07/19/16 12:00 98.5 68 28 163/84 97 07/19/16 12:00 40 07/19/16 10:00 62 07/19/16 08:34 40 07/19/16 08:00 40 07/19/16 08:00 57 07/19/16 08:00 98.5 57 22 154/72 95 07/19/16 07:27 97 Mechanical Ventilator 40 07/19/16 07:22 97 40 07/19/16 06:00 57 07/19/16 04:00 98.4 56 20 164/81 98 07/19/16 04:00 40 07/19/16 04:00 56 07/19/16 03:27 100 40 07/19/16 02:00 61 07/19/16 01:30 20 07/19/16 00:47 98 40 07/19/16 00:00 98.4 61 20 171/87 97 07/19/16 00:00 61 07/19/16 00:00 40 07/18/16 21:11 100 50 07/18/16 20:00 98 Mechanical Ventilator 60 07/18/16 20:00 68 07/18/16 20:00 98.3 68 20 169/90 98 07/18/16 19:41 99 60 07/18/16 17:15 96 100 07/18/16 15:28 95 100 07/18/16 15:25 96 100 07/18/16 13:20 146/82 98 07/18/16 13:18 95 70 07/18/16 13:00 101/66 93 07/18/16 12:30 97.0 67 20 101/66 94 -: 07/19/16 0357 07/19/16 0357 Physical Exam General Appearance: Well Developed, Obese Neck Neck Exam: Neck Supple Pulmonary Resp Exam: Decreased Bases Cardiology CV Exam: Regular, Normal Sinus Rhythm Gastrointestinal/Abdomen GI Exam: Soft, Distended Extremeties Extremities Exam: Pitting Edema, Dependent Edema Neurologic Neuro Exam: Alert, Awake Assessment/Plan Problem List: (1) Stage 4 chronic kidney disease Plan: Patient with advanced kidney disease and the has been evaluated by Dr. Medley in May, on Bumex 1 mg q 12 MATEUS/SPEP Neg now extubated Nephrotic proteinuria [address] Reynaga and patient dialysis will be done to get the fluids off as massive edema and chance of respiratory failure is high explained procedure to patient and she is agreeable 1800 events noted PermCath cancelled due to re intubation, brief code, may follow renal functions and if UOP drops may need a Vascath (2) Nephrotic syndrome Plan: Protein to creatinine ratio above 10 10.52 (3) Acute exacerbation of CHF (congestive heart failure) Plan: This is likely due to chronic kidney disease and diastolic dysfunction (4) Diabetes Plan: Advance manifestations diabetic nephropathy, retinopathy and neuropathy (5) HTN (hypertension) Plan: Continue to monitor (6) Respiratory failure Plan: intubated Problem Qualifiers (1) Acute exacerbation of CHF (congestive heart failure): Qualified Code: I50.9 - Acute on chronic congestive heart failure, unspecified congestive heart failure type (2) Diabetes: (3) HTN (hypertension): Qualified Code: I10 - Essential hypertension Ebony Garcia MD Jul 19, 2016 12:21
[2016-07-19] MEDS ORDERED: VANCOMYCIN INJ 1,000 MG in SODIUM CHLOR 0.9% 250 ML INJ 250 ML IV ONE (13:00)
[2016-07-19] MEDS ORDERED: ceFAZolin 2 GM PREMIX 50 ML IV ONE (13:00)
[2016-07-19] MEDS: cloNIDine HCL 0.1 MG TAB PO PRN (13:11)
[2016-07-19] MEDS ORDERED: MIDAZOLAM HCL 2 MG/2 ML VIAL ONE (16:53)
[2016-07-19] MEDS ORDERED: fentaNYL CITRATE 250 MCG/5 ML AMP ONE (16:53)
[2016-07-19] MEDS ORDERED: LIDOCAINE 1%/EPINEPHrine 1:100,000 SOLN 20 ML VIAL ONE (17:06)
[2016-07-19] MEDS ORDERED: FLUMAZENIL 0.5 MG/5 ML VIAL ONE (17:51)
--- NOTE | 2016-07-19 18:23 | RADRPT ---
EXAM DATE/TIME: 07/19/2016 00:00 [facility] COMPARISON : No previous studies available for comparison. INDICATIONS : Patient in need of permacath due to acute on chronic renal failure. HISTORY OF PRESENT ILLNESS: The patient brought to the angiography suite and placed on the angiography table and prepped for cath eter placement. The patient was administered 0.5 mg of Versed and 25 of fentanyl and subsequently d esaturated and went into cardiopulmonary arrest. Reversal agent were given The patient did not respon d. Code was called, oral airway was placed and chest compressions were begun. One ampule of epinephri ne was administered and the code team arrived to successfully resuscitate the patient and intubate. CONCLUSION: Procedure not performed secondary to cardiopulmonary arrest. Emre Daniel MD on July 19, 2016 at 18:16 Board Certified Radiologist. This report was verified electronically.
[2016-07-19 19:28] LABS: BLOOD GAS BASE EXCESS -3.3 mmol/L (-2-2); BLOOD GAS CARBOXYHEMOGLOBIN 1.6 % (0-4); BLOOD GAS HCO3 21 mmol/L (22-26); BLOOD GAS METHEMOGLOBIN 1.4 % (0-2); BLOOD GAS O2 HGB SATURATION 95 % (90-100); BLOOD GAS OXYGEN CONTENT 12.9 Vol % (12.0-20.0); BLOOD GAS PCO2 34 mmHg (38-42); BLOOD GAS PO2 103 mmHg (61-120); BLOOD GAS TOTAL HGB 9.6 G/DL (12.0-16.0); CRITICAL VALUE NO; OXYGEN DEVICE VENTILATOR; TEMP CORR TO 98.6
[2016-07-19 19:29] LABS: DRAW SITE RT RADIAL; FIO2 60 %; NUMBER OF ARTERIAL PUNCTURES 1; STAT YES; ULNAR PULSE PRESENT; VENT SETTINGS AC20/550/PEEP8
--- NOTE | 2016-07-19 19:29 | MG ---
cc: EDWINA SAMPSON MD Lab No: [id number] Date: 07/19/16 Age: Sex: F Race: DATE OF : 1965 HISTORY A 50-year-old. Intubated on propofol. History of CHF, mental status changes. Propofol apparently turned off prior to EEG recording. DESCRIPTION OF RECORD A combination of theta and delta frequencies occurring 20-50 microvolts, 4-5 Hz. Theta with admixed bursts of 2-3 Hz delta activity. Reasonable EEG variability reactivity. Limited driving with photic stimulation. Progressive slowing towards the end of the recording. Single-lead EKG showing sinus rhythm. INTERPRETATION Mild to moderate encephalopathy. No epileptic activity. Good EEG variability and reactivity. Clinical correlation. MD LESLIE Pichardo/BJF /7:18 PM /:25 PM
--- NOTE | 2016-07-19 19:57 | RADRPT ---
EXAM DATE/TIME: 07/19/2016 18:38 [facility] COMPARISON: CHEST SINGLE AP, July 18, 2016, 13:33. INDICATIONS : Post intubation MEDICAL HISTORY : None. SURGICAL HISTORY : None. ENCOUNTER: Initial ACUITY: 1 day PAIN SCORE: Non-responsive. LOCATION: Bilateral chest FINDINGS: NG tube is present with tip in the stomach. ET tube is present with tip overlapping approximately 2 c m above the aryan. Left basilar opacity is present may be due to a combination of consolidation and or pleural effusion. There is diffuse pulmonary edema not significantly changed. CONCLUSION: Left basilar opacity is present may be due to a combination of consolidation and or pleural effusion and diffuse pulmonary edema. Amita Lindsey MD on July 19, 2016 at 19:53 Board Certified Radiologist. This report was verified electronically.
--- NOTE | 2016-07-19 20:18 | PD.PROCEDR ---
Procedure Note Procedure Procedure: Endotracheal intubation Preop diagnosis: Respiratory arrest/cardiac arrest Postop diagnosis: Respiratory arrest Sedation used: None as patient was unresponsive undergoing CPR Procedure: Responded to CODE BLUE cardiac arrest code activation. Patient was in interventional radiology for permacath placement. She had just received Versed and fentanyl prior to the procedure when she became unresponsive and stopped breathing. She also developed bradycardia to the 40s. CPR/ACLS protocol initiated by IR staff and Dr. Daniel. When I arrived patient was being ventilated with bag mask ventilation during ACLS protocol. She was in sinus rhythm and had received 2 doses of epinephrine. Patient was preoxygenated with 100% oxygen via Ambu bag with bag mask ventilation, direct laryngoscopy was performed using a Mac 4 blade with good visualization of vocal cords. A 7.5 Micronesian ET tube was passed through the vocal cords under direct visualization up to the 24 centimeter justus and after inflating cuff of ET tube, correct placement was confirmed using bagging with good color change on CO2 detector, 5 point auscultation and chest rise with ventilation. Patient was connected to mechanical ventilation. Patient tolerated the procedure well with no immediate complications noted. Postprocedure chest x-ray was ordered. Lopez Reynaga MD Jul 19, 2016 20:18
[2016-07-19] MEDS: AMITRIPTYLINE HCL 50 MG TAB PO SCH (22:03)
[2016-07-19] MEDS: ATORVASTATIN 80 MG TAB PO SCH (22:03)
[2016-07-20] VITALS (19 sets, daily range): BP systolic 142–177; BP diastolic 62–93; PULSE 59–80; RESP 12–20; TEMP 98.2–100.2; O2SAT 93–99
[2016-07-20] MEDS: PROPOFOL 1000 MG/100 ML INJ 100 ML IV SCH ×3 (02:44→12:40)
[2016-07-20] MEDS: RESP: ALBUTEROL 2.5 MG/IPRATROPIUM 0.5 MG NEB (SCH) NEB ×4 (04:22→20:54)
[2016-07-20] MEDS: CHLORHEXIDINE GLUCONATE 2 % 1 PACK (2 CLOTHS) TOP SCH (05:57)
[2016-07-20] MEDS: INSULIN ASPART SUPPLEMENTAL SCALE SQ SCH (07:00)
[2016-07-20] MEDS: hydrALAZINE HCL 50 MG TAB PO SCH ×3 (08:35→16:04)
[2016-07-20] MEDS: ALBUMIN HUMAN 25% 25 GM/100 ML BAGP IV SCH ×2 (08:35→16:05)
[2016-07-20] MEDS: LISINOPRIL 20 MG TAB PO SCH (08:35)
[2016-07-20] MEDS: PANTOPRAZOLE SODIUM 40 MG VIAL IV SCH (08:35)
[2016-07-20] MEDS: BUMETANIDE INJ 1 MG/4 ML VIAL IV PUSH SCH ×2 (08:35→16:29)
[2016-07-20] MEDS: FERROUS SULFATE 325 MG (65 MG ELEMENTAL IRON) TAB PO SCH ×2 (08:36→20:41)
[2016-07-20] MEDS: ASPIRIN EC 81 MG TABEC PO SCH (08:36)
[2016-07-20] MEDS: GABAPENTIN 300 MG CAP PO SCH ×3 (08:36→16:04)
[2016-07-20] MEDS: CHLORHEXIDINE 0.12% (ORAL KIT) 15 ML CUP MT SCH ×2 (08:36→20:42)
[2016-07-20] MEDS: CARVEDILOL 12.5 MG TAB PO SCH ×2 (08:36→20:41)
[2016-07-20] MEDS: SODIUM CHLORIDE 0.9% FLUSH 5 ML FLUSH IVF SCH ×2 (08:36→20:42)
--- NOTE | 2016-07-20 08:52 | PD.CARD.PN ---
Subjective Subjective Remarks Events noted. The patient was in interventional radiology, had received sedation and had a respiratory arrest. She is in sinus rhythm, hemodynamically stable and intubated. Objective Medications Reviewed Vital Signs / I&O Vital Signs Date Time Temp Pulse Resp B/P Pulse Ox O2 Delivery O2 Flow Rate FiO2 07/20/16 07:48 96 40 07/20/16 06:00 63 07/20/16 04:12 99 60 07/20/16 04:11 60 07/20/16 04:11 98.6 59 20 176/84 99 07/20/16 04:00 59 07/20/16 02:00 59 07/20/16 01:04 98 60 07/20/16 00:00 60 07/20/16 00:00 66 07/20/16 00:00 99.2 66 20 170/84 98 07/19/16 22:05 98 60 07/19/16 22:00 65 07/19/16 20:00 99.0 73 20 158/84 100 07/19/16 20:00 73 07/19/16 20:00 60 07/19/16 19:12 98 60 07/19/16 19:00 99 Mechanical Ventilator 60 07/19/16 18:17 60 07/19/16 18:14 68 20 140/73 98 07/19/16 18:14 68 07/19/16 18:10 98 60 07/19/16 14:00 70 07/19/16 12:07 93 Nasal Cannula 4 07/19/16 12:07 93 Nasal Cannula 4.00 07/19/16 12:00 98.5 68 28 163/84 97 07/19/16 12:00 68 07/19/16 12:00 40 07/19/16 10:00 62 I/O 07/19/16 07/19/16 07/19/16 07/20/16 07/20/16 07/20/16 07:00 15:00 23:00 07:00 15:00 23:00 Intake Total 181 ml 336 ml 206 ml 139 ml Output Total 950 ml 800 ml 1850 ml 2000 ml Balance -769 ml -464 ml -1644 ml -1861 ml IV Total 181 ml 276 ml 86 ml 139 ml Tube Irrigant 60 ml Other 120 ml Output Urine Total 950 ml 800 ml 1850 ml 2000 ml # Bowel Movements 1 1 Physical Exam GENERAL: Intubated/sedated and morbidly obese. SKIN: Warm and dry. NECK: JVD normal - less than or equal to 5 cm H20. CARDIOVASCULAR: Regular rate and rhythm without murmurs, gallops, or rubs. RESPIRATORY: Normal breath sounds - equal bilaterally. No accessory muscle use. No wheezes, rales or rubs. PERIPHERY: No cyanosis. 1+ edema. Laboratory Laboratory Tests Test 07/19/16 07/19/16 11:34 19:16 Blood Gas Puncture Site LT RADIAL RT RADIAL Blood Gas Patient Temperature 98.6 98.6 Blood Gas HCO3 23 mmol/L 21 mmol/L Blood Gas Base Excess -3.1 mmol/L -3.3 mmol/L Blood Gas Oxygen Saturation 94 % 95 % Arterial Blood pH 7.28 7.40 Arterial Blood Partial 50 mmHg 34 mmHg Pressure CO2 Arterial Blood Partial 90 mmHg 103 mmHg Pressure O2 Arterial Blood Oxygen Content 12.8 Vol % 12.9 Vol % Arterial Blood 1.4 % 1.6 % Carboxyhemoglobin Arterial Blood Methemoglobin 1.2 % 1.4 % Blood Gas Hemoglobin 9.6 G/DL 9.6 G/DL Oxygen Delivery Device VENTILATOR VENTILATOR Blood Gas Ventilator Setting CPAP,PS5,PEEP5 AC20/550/PEEP8 Blood Gas Inspired Oxygen 40 % 60 % Imaging Last 48 hours Impressions Consultation 07/19/16 0000 Signed Impressions: Service Date/Time: Tuesday, July 19, 2016 00:00 - CONCLUSION: Procedure not performed secondary to cardiopulmonary arrest. Emre Daniel MD Chest X-Ray 07/19/16 0000 Signed Impressions: Service Date/Time: Tuesday, July 19, 2016 18:38 - CONCLUSION: Left basilar opacity is present may be due to a combination of consolidation and or pleural effusion and diffuse pulmonary edema. Amita Lindsey MD Head CT 07/18/16 1237 Signed Impressions: Service Date/Time: July 12:43 - CONCLUSION: 1. No evidence of acute intracranial pathology. No masses are identified. Emre Daniel MD Assessment and Plan Assessment and Plan Problems: Fluid overload most likely secondary to venous insufficiency/chronic kidney disease and noncompliance Mildly elevated troponinnonspecific History of coronary disease with coronary stenting 2016 Hypertension/diabetes/hyperlipidemia Noncompliance Recommendations: At this point in time I'll leave further management to the critical care service and nephrology. The patient will need to stay on aspirin and statins. DVT prophylaxis is recommended. Please contact Dr. Choudhury if the patient stabilizes. We will be available if needed. Naill Jung MD Jul 20, 2016 08:52
--- NOTE | 2016-07-20 09:35 | HHI.CCPN ---
Subjective Remarks/Hospital Course 07/18: 50 y/o female with a history of chf, depression, htn, dm, and ckd presented to the ED on 07/15 with complaints of dyspnea, swelling in her lower extremities and a 50lb weight gain since last admission 06/03/16. Patient had gained 50 lbs in fluid from last admission. She presented with increased shortness of breath with intermittent chest pressure with no radiation or associated symptoms. She was admitted on 05/31/16 and diagnosed with CHF, discharged home on on Bumex. Patient states she recently ran out of meds and has not followed up with a doctor due to transportation issues. She is not from here and her pcp is 2 hours away and she does not want her kids to take off work to take her to appointments. She is hoping to move back in 2 weeks or so. She states she tried to call a spinning machine operator to follow up but they required her records and she did not get them. Despite taking Bumex she states she has not had an increase in urination. Last admission 2d echo showed systolic dysfunction with EF 50%, she was seen by DR. Choudhury, and DR. Medley. Patient was admitted by hospitalist service. She was evaluated by Dr. Choudhury from cardiology who offered cardiac catheterization as patient did have an elevated troponin and previous abnormal stress test however she was concerned regarding ending up on hemodialysis so she refused. Patient was reportedly on nasal cannula earlier today however around 1:30 PM was noted to be lethargic and minimally responsive. Stroke alert was called. Head CT was negative for bleed. Recent had an ABG done which revealed pH of 7.0/PCO2 87/PO2 49. Critical care service was contacted by Dr. Mckeon. Both myself and Dr. Ott arrived at bedside. Patient was encephalopathic though arousable with painful stimuli occasional morning however not following commands. Her fingerstick glucose was in the 140s earlier. Decision was made to proceed with endotracheal intubation which was performed by Dr. Goff. A stat MRI brain was ordered to evaluate for CVA after discussion with Dr. Estes. 07/19: Awakens easily off sedation following commands this morning. On mechanical ventilation. MRI brain done yesterday did not show any acute event. 07/20 Patient was extubated yesterday went to IR for vascath placement and had resp arrest she was subsequently reintubated. Now sedated with Diprivan. Afebrile. MRI brain showed no evidence of acute infract. Objective Vital Signs Date Time Temp Pulse Resp B/P Pulse Ox O2 Delivery O2 Flow Rate FiO2 07/20/16 07:48 96 40 07/20/16 06:00 63 07/20/16 04:11 98.6 20 176/84 07/19/16 19:00 Mechanical Ventilator 07/19/16 12:07 4 Intake and Output 07/19/16 07/19/16 07/20/16 08:00 16:00 00:00 Intake Total 181 ml 336 ml 206 ml Output Total 950 ml 800 ml 1850 ml Balance -769 ml -464 ml -1644 ml Result Diagram: 07/19/16 0357 07/19/16 0357 Other Results Laboratory Tests Test 07/19/16 07/19/16 11:34 19:16 Blood Gas Puncture Site LT RADIAL RT RADIAL Blood Gas Patient Temperature 98.6 98.6 Blood Gas HCO3 23 mmol/L 21 mmol/L Blood Gas Base Excess -3.1 mmol/L -3.3 mmol/L Blood Gas Oxygen Saturation 94 % 95 % Arterial Blood pH 7.28 7.40 Arterial Blood Partial 50 mmHg 34 mmHg Pressure CO2 Arterial Blood Partial 90 mmHg 103 mmHg Pressure O2 Arterial Blood Oxygen Content 12.8 Vol % 12.9 Vol % Arterial Blood 1.4 % 1.6 % Carboxyhemoglobin Arterial Blood Methemoglobin 1.2 % 1.4 % Blood Gas Hemoglobin 9.6 G/DL 9.6 G/DL Oxygen Delivery Device VENTILATOR VENTILATOR Blood Gas Ventilator Setting CPAP,PS5,PEEP5 AC20/550/PEEP8 Blood Gas Inspired Oxygen 40 % 60 % Imaging Last Impressions Consultation 07/19/16 0000 Signed Impressions: Service Date/Time: Tuesday, July 19, 2016 00:00 - CONCLUSION: Procedure not performed secondary to cardiopulmonary arrest. Emre Daniel MD Chest X-Ray 07/19/16 0000 Signed Impressions: Service Date/Time: Tuesday, July 19, 2016 18:38 - CONCLUSION: Left basilar opacity is present may be due to a combination of consolidation and or pleural effusion and diffuse pulmonary edema. Amita Lindsey MD Head CT 07/18/16 1237 Signed Impressions: Service Date/Time: July 12:43 - CONCLUSION: 1. No evidence of acute intracranial pathology. No masses are identified. Emre Daniel MD Brain MRI 07/18/16 0000 Signed Impressions: Service Date/Time: July 17:15 - CONCLUSION: White matter hyperintensities prominent for age indicating possible demyelinating disorder. No evidence of acute infarct. Eliezer Shay MD Abdomen X-Ray 07/18/16 0000 Signed Impressions: Service Date/Time: July 15:39 - CONCLUSION: No evidence of obstruction. No MRI incompatible foreign body is identified. Eliezer Shay MD Objective Remarks GENERAL: Patient is 50 yo critically ill intubated and sedated. SKIN: Warm and dry. HEAD: Normocephalic. EYES: No scleral icterus. No injection or drainage. NECK: Supple, trachea midline. No JVD or lymphadenopathy. CARDIOVASCULAR: Regular rate and rhythm without murmurs, gallops, or rubs. RESPIRATORY: Breath sounds equal bilaterally. No accessory muscle use. GASTROINTESTINAL: Abdomen soft, non-tender, nondistended. MUSCULOSKELETAL: No cyanosis,+3 edema. Neuro: Sedated, intubated. A/P Assessment and Plan 50-year-old female with: Encephalopathy : Secondary to CO2 retention VDRF CHF non-ST elevation VT Acute on CKD Diabetes mellitus Anemia morbid obesity History of depression History of hypertension Plan: Neuro: On Diprivan infusion for sedation. Daily sedation vacation. Monitor neuro status and avoid sedatives, Continue aspirin. 07/18 MRI brain: White matter hyperintensities prominent for age indicating possible demyelinating disorder. No evidence of acute infarct. 07/18 CT brain: No acute infarct /3 EEG: Mild- mod encephalopathy Neuro is following CV: Monitor HR and BP keep MAP>65mmHg. Patient declined cardiac catheterization on 07/18 due to concern that she may end up on hemodialysis Cards- Dr. Choudhury. Continue with ASA, Lipitor daily. On Coreg 25mg BID, Lisinopril 20mg daily, Hydralazine 50mg TID Pulmo: Continue with vent support keep sat >92% Bronchodilators, ICU vent bundle. GI/liver: Start TF-Nepro with goal rate 40ml/hr Renal/: Monitor renal function, I/O's, avoid nephrotoxins UO: 4650 ml in 24 hrs, follow up BMP today. Renal- Dr. Garcia On Bumex 1mg BID ID: Monitor for signs of infections ( Fever, WBC) Endocrine: SSI for glycemic control as needed Heme:Monitor CBC. On FeSO4 325mg BID Prophylaxis: PPI/SCDs/Heparin SQ Check labs today CCT 30 mins Peter Donnelly MD Jul 20, 2016 09:35
[2016-07-20] MEDS ORDERED: DEXTROSE 50% IN WATER 50 ML VIAL(D50) IV PUSH PRN (09:45)
[2016-07-20] MEDS ORDERED: GLUCAGON 1 MG/ML VIAL OTHER PRN (09:45)
[2016-07-20 09:54] LABS: AUTOMATED NEUTROPHIL # 4.5 TH/MM3 (1.8-7.7); BASOPHIL # 0.1 TH/MM3 (0-0.2); BASOPHIL % 0.8 % (0.0-2.0); EOSINOPHIL # 0.3 TH/MM3 (0-0.4); EOSINOPHIL % 4.3 % (0.0-4.0); HEMATOCRIT 29.3 % (35.0-46.0); LYMPH % 13.3 % (9.0-44.0); LYMPHOCYTE # 0.9 TH/MM3 (1.0-4.8); MEAN CELL VOLUME 70.5 FL (80.0-100.0); MEAN CORPUSCULAR HEMOGLOBIN 22.8 PG (27.0-34.0); MEAN CORPUSCULAR HGB CONC 32.3 % (32.0-36.0); MONO % 12.1 % (0.0-8.0); NEUT % 69.5 % (16.0-70.0); PLATELET COUNT 193 TH/MM3 (150-450); RED BLOOD COUNT 4.15 MIL/MM3 (4.00-5.30); RED CELL DISTRIBUTION WIDTH 19.5 % (11.6-17.2); WHITE BLOOD COUNT 6.4 TH/MM3 (4.0-11.0)
[2016-07-20 09:59] LABS: HEMO FLAGS AUTO DIFF
[2016-07-20 10:01] LABS: INTERNATIONAL NORMALIZED RATIO 1.1 RATIO; PROTHROMBIN TIME - PATIENT 12.1 SEC (9.8-11.6)
[2016-07-20 10:22] LABS: ALKALINE PHOSPHATASE 97 U/L (45-117); ALT (GPT) 11 U/L (10-53); ANION GAP 12 MEQ/L (5-15); AST (GOT) 8 U/L (15-37); BICARBONATE 23.1 MEQ/L (21.0-32.0); BLOOD UREA NITROGEN 39 MG/DL (7-18); CHLORIDE 107 MEQ/L (98-107); GLOMERULAR FILTRATION RATE 13 ML/MIN (>89); SODIUM (NA) 142 MEQ/L (136-145); TOTAL BILIRUBIN ADULT 0.6 MG/DL (0.2-1.0)
[2016-07-20 10:43] LABS: OVALOCYTES 1+ (NORMAL); SCAN/DIFF AUTO DIFF CONFIRMED
[2016-07-20] MEDS: INSULIN NovoLIN REGULAR SUPPLEMENTAL SCALE SQ SCH ×3 (11:00→23:00)
--- NOTE | 2016-07-20 11:17 | HHI.NPPN ---
Subjective History of Present Illness 50 year old with CKD 4/5 Diabetes Nephrotic range proteinuria Additional Remarks Patient coded yesterday and was re-intubated. Intubated and sedated at this time. Review of Systems General Constitutional: Fatigue Cardiovascular Cardiac: Edema Objective Data Data 07/19/16 07/20/16 19:00 07:00 Intake Total 336 ml 345 ml Output Total 1650 ml 3000 ml Balance -1314 ml -2655 ml IV Total 276 ml 225 ml Tube Irrigant 60 ml Other 120 ml Output Urine Total 1650 ml 3000 ml # Bowel Movements 1 Vital Signs Date Time Temp Pulse Resp B/P Pulse Ox O2 Delivery O2 Flow Rate FiO2 07/20/16 10:54 96 40 07/20/16 10:00 63 07/20/16 10:00 98.2 65 20 175/83 97 07/20/16 10:00 40 07/20/16 08:00 65 07/20/16 07:48 96 40 07/20/16 07:00 94 Mechanical Ventilator 60 07/20/16 06:00 63 07/20/16 04:12 99 60 07/20/16 04:11 60 07/20/16 04:11 98.6 59 20 176/84 99 07/20/16 04:00 59 07/20/16 02:00 59 07/20/16 01:04 98 60 07/20/16 00:00 60 07/20/16 00:00 66 07/20/16 00:00 99.2 66 20 170/84 98 07/19/16 22:05 98 60 07/19/16 22:00 65 07/19/16 20:00 99.0 73 20 158/84 100 07/19/16 20:00 73 07/19/16 20:00 60 07/19/16 19:12 98 60 07/19/16 19:00 99 Mechanical Ventilator 60 07/19/16 18:17 60 07/19/16 18:14 68 20 140/73 98 07/19/16 18:14 68 07/19/16 18:10 98 60 07/19/16 14:00 70 07/19/16 12:07 93 Nasal Cannula 4 07/19/16 12:07 93 Nasal Cannula 4.00 07/19/16 12:00 98.5 68 28 163/84 97 07/19/16 12:00 68 07/19/16 12:00 40 -: 07/20/16 0800 07/20/16 0800 Physical Exam General Appearance: Well Developed, Obese Neck Neck Exam: Neck Supple Pulmonary Resp Exam: Decreased Bases Cardiology CV Exam: Regular, Normal Sinus Rhythm Gastrointestinal/Abdomen GI Exam: Soft, Distended Extremeties Extremities Exam: Pitting Edema, Dependent Edema Neurologic Neuro Exam: Alert, Awake, Sedated Assessment/Plan Problem List: (1) Stage 4 chronic kidney disease Plan: Patient with advanced kidney disease and the has been evaluated by Dr. Medley in May, on Bumex 1 mg q 12 MATEUS/SPEP Neg Nephrotic proteinuria 10 grams Had planned for vascath and dialysis yesterday for fluid removal - however patient coded and was re-intubated, no dialysis access. At this point UOP has improved to 4L/24 hours. Creatinine 3.79-> 3.6 Continue bumex for now at 1mg BID. If creatinine stable, may consider to increase bumex dosing tomorrow. No urgent need for dialysis at this time, continue diuresis as tolerated. (2) Nephrotic syndrome Plan: Protein to creatinine ratio above 10 10.52 (3) Acute exacerbation of CHF (congestive heart failure) Plan: This is likely due to chronic kidney disease and diastolic dysfunction (4) Diabetes Plan: Advance manifestations diabetic nephropathy, retinopathy and neuropathy (5) HTN (hypertension) Plan: Continue to monitor (6) Respiratory failure Plan: intubated Problem Qualifiers (1) Acute exacerbation of CHF (congestive heart failure): Qualified Code: I50.9 - Acute on chronic congestive heart failure, unspecified congestive heart failure type (2) Diabetes: (3) HTN (hypertension): Qualified Code: I10 - Essential hypertension Tex Whiting MD Jul 20, 2016 11:17
[2016-07-20] MEDS: ACETAMINOPHEN 325 MG TAB PO PRN ×2 (16:04→20:41)
[2016-07-20 16:32] LABS: BLOOD GAS BASE EXCESS -1.7 mmol/L (-2-2); BLOOD GAS CARBOXYHEMOGLOBIN 1.4 % (0-4); BLOOD GAS HCO3 23 mmol/L (22-26); BLOOD GAS METHEMOGLOBIN 1.2 % (0-2); BLOOD GAS O2 HGB SATURATION 96 % (90-100); BLOOD GAS OXYGEN CONTENT 12.9 Vol % (12.0-20.0); BLOOD GAS PCO2 41 mmHg (38-42); BLOOD GAS PO2 114 mmHg (61-120); BLOOD GAS TOTAL HGB 9.5 G/DL (12.0-16.0); CRITICAL VALUE NO; TEMP CORR TO 98.6
[2016-07-20 16:33] LABS: DRAW SITE RT RADIAL; FIO2 40 %; NUMBER OF ARTERIAL PUNCTURES 1; OXYGEN DEVICE VENTILATOR; STAT NO; ULNAR PULSE PRESENT; VENT SETTINGS CPAP+5/PS+10
[2016-07-20 16:59] LABS: BACTERIA, URINE RARE /hpf; BLOOD, URINE SMALL (NEG); COMMENT (UR) CULTURE INDICATED; CULTURE IF INDICATED CULTURE INDICATED; GLUCOSE,URINE TRACE mg/dL (NEG); HYALINE CAST, URINE 1 /lpf (RARE); KETONE, URINE NEG (NEG); MUCUS URINE FEW /lpf (OCC); NITRITE,URINE NEG (NEG); PH, URINE 6.5 (5.0-8.5); SQUAMOUS EPITHELIAL CELL URINE 1 /hpf (0-5); URINE COLOR YELLOW (YELLW/STRAW)
[2016-07-20] MEDS: ATORVASTATIN 80 MG TAB PO SCH (20:40)
[2016-07-20] MEDS: AMITRIPTYLINE HCL 50 MG TAB PO SCH (20:41)
[2016-07-20] MEDS: HEPARIN SODIUM - SQ 10,000 UNITS/ML VIAL SQ SCH (20:42)
[2016-07-21] VITALS (17 sets, daily range): BP systolic 136–186; BP diastolic 65–98; PULSE 70–89; RESP 11–19; TEMP 97.9–98.9; O2SAT 89–99
[2016-07-21] MEDS: RESP: ALBUTEROL 2.5 MG/IPRATROPIUM 0.5 MG NEB (SCH) NEB ×4 (02:02→22:14)
[2016-07-21] MEDS ORDERED: RESP: RACEPINEPHRINE 2.25% 0.5 ML NEB ONE (02:10)
[2016-07-21 02:54] LABS: BLOOD GAS BASE EXCESS -2.1 mmol/L (-2-2); BLOOD GAS CARBOXYHEMOGLOBIN 1.3 % (0-4); BLOOD GAS HCO3 24 mmol/L (22-26); BLOOD GAS METHEMOGLOBIN 1.3 % (0-2); BLOOD GAS O2 HGB SATURATION 95 % (90-100); BLOOD GAS OXYGEN CONTENT 12.2 Vol % (12.0-20.0); BLOOD GAS PCO2 57 mmHg (38-42); BLOOD GAS PO2 118 mmHg (61-120); CRITICAL VALUE YES; DRAW SITE RT RADIAL; LITER FLOW 15 L/M; NUMBER OF ARTERIAL PUNCTURES 1; STAT YES; TEMP CORR TO 98.6; ULNAR PULSE PRESENT
[2016-07-21] MEDS ORDERED: DEXAMETHASONE SOD PHOS 4 MG/ML VIAL IV PUSH ONE (03:45)
[2016-07-21] MEDS: CHLORHEXIDINE GLUCONATE 2 % 1 PACK (2 CLOTHS) TOP SCH (04:05)
[2016-07-21] MEDS: INSULIN NovoLIN REGULAR SUPPLEMENTAL SCALE SQ SCH ×4 (05:00→23:00)
[2016-07-21 05:43] LABS: AUTOMATED NEUTROPHIL # 3.5 TH/MM3 (1.8-7.7); BASOPHIL % 0.7 % (0.0-2.0); EOSINOPHIL # 0.3 TH/MM3 (0-0.4); EOSINOPHIL % 6.1 % (0.0-4.0); HEMATOCRIT 28.4 % (35.0-46.0); LYMPH % 14.4 % (9.0-44.0); LYMPHOCYTE # 0.8 TH/MM3 (1.0-4.8); MEAN CELL VOLUME 71.5 FL (80.0-100.0); MEAN CORPUSCULAR HEMOGLOBIN 22.7 PG (27.0-34.0); MEAN CORPUSCULAR HGB CONC 31.8 % (32.0-36.0); MONO % 12.7 % (0.0-8.0); NEUT % 66.1 % (16.0-70.0); PLATELET COUNT 173 TH/MM3 (150-450); RED BLOOD COUNT 3.97 MIL/MM3 (4.00-5.30); WHITE BLOOD COUNT 5.4 TH/MM3 (4.0-11.0)
[2016-07-21 05:44] LABS: BICARBONATE 23.3 MEQ/L (21.0-32.0); POTASSIUM 4.1 MEQ/L (3.5-5.1)
[2016-07-21 05:50] LABS: BLOOD GAS BASE EXCESS -2.3 mmol/L (-2-2); BLOOD GAS CARBOXYHEMOGLOBIN 1.6 % (0-4); BLOOD GAS HCO3 23 mmol/L (22-26); BLOOD GAS METHEMOGLOBIN 1.1 % (0-2); BLOOD GAS O2 HGB SATURATION 93 % (90-100); BLOOD GAS PCO2 48 mmHg (38-42); BLOOD GAS PO2 85 mmHg (61-120); CRITICAL VALUE NO; DRAW SITE RT RADIAL; FIO2 40 %; NUMBER OF ARTERIAL PUNCTURES 1; OXYGEN DEVICE BiPAP; STAT NO; TEMP CORR TO 98.6; ULNAR PULSE PRESENT; VENT SETTINGS 10IPAP/5EPAP
[2016-07-21 05:53] LABS: HEMO FLAGS AUTO DIFF
--- NOTE | 2016-07-21 07:59 | HHI.CCPN ---
Subjective Remarks/Hospital Course 07/18: 50 y/o female with a history of chf, depression, htn, dm, and ckd presented to the ED on 07/15 with complaints of dyspnea, swelling in her lower extremities and a 50lb weight gain since last admission 06/03/16. Patient had gained 50 lbs in fluid from last admission. She presented with increased shortness of breath with intermittent chest pressure with no radiation or associated symptoms. She was admitted on 05/31/16 and diagnosed with CHF, discharged home on on Bumex. Patient states she recently ran out of meds and has not followed up with a doctor due to transportation issues. She is not from here and her pcp is 2 hours away and she does not want her kids to take off work to take her to appointments. She is hoping to move back in 2 weeks or so. She states she tried to call a batch operator to follow up but they required her records and she did not get them. Despite taking Bumex she states she has not had an increase in urination. Last admission 2d echo showed systolic dysfunction with EF 50%, she was seen by DR. Choudhury, and DR. Medley. Patient was admitted by hospitalist service. She was evaluated by Dr. Choudhury from cardiology who offered cardiac catheterization as patient did have an elevated troponin and previous abnormal stress test however she was concerned regarding ending up on hemodialysis so she refused. Patient was reportedly on nasal cannula earlier today however around 1:30 PM was noted to be lethargic and minimally responsive. Stroke alert was called. Head CT was negative for bleed. Recent had an ABG done which revealed pH of 7.0/PCO2 87/PO2 49. Critical care service was contacted by Dr. Mckeon. Both myself and Dr. Ott arrived at bedside. Patient was encephalopathic though arousable with painful stimuli occasional morning however not following commands. Her fingerstick glucose was in the 140s earlier. Decision was made to proceed with endotracheal intubation which was performed by Dr. Goff. A stat MRI brain was ordered to evaluate for CVA after discussion with Dr. Estes. 07/19: Awakens easily off sedation following commands this morning. On mechanical ventilation. MRI brain done yesterday did not show any acute event. 07/20 Patient was extubated yesterday went to IR for vascath placement and had resp arrest she was subsequently reintubated. Now sedated with Diprivan. Afebrile. MRI brain showed no evidence of acute infract. 07/21 Patient s/p extubation yesterday was given racemic Decadron 4mg IV x1 and racemic epi for ? stridor overnight placed on BIPAP 03/20 with 40% FIO2. ABG on BIPAP shows improvements in her resp acidosis with PH 7.30 and CO2: 48 from 57. Now of BIPAP and is on 6L oxygen. Objective Vital Signs Date Time Temp Pulse Resp B/P Pulse Ox O2 Delivery O2 Flow Rate FiO2 07/21/16 07:40 93 Nasal Cannula 6.00 07/21/16 06:00 73 07/21/16 04:25 40 07/21/16 04:00 98.6 18 152/75 Intake and Output 07/20/16 07/20/16 07/21/16 08:00 16:00 00:00 Intake Total 139 ml 503 ml 210 ml Output Total 2000 ml 2525 ml 1350 ml Balance -1861 ml -2022 ml -1140 ml Result Diagram: 07/21/16 0430 07/21/16 0430 Other Results Laboratory Tests Test 07/20/16 07/20/16 07/20/16 07/21/16 08:00 16:11 16:20 02:32 White Blood Count 6.4 TH/MM3 Red Blood Count 4.15 MIL/MM3 Hemoglobin 9.4 GM/DL Hematocrit 29.3 % Mean Corpuscular Volume 70.5 FL Mean Corpuscular Hemoglobin 22.8 PG Mean Corpuscular Hemoglobin 32.3 % Concent Red Cell Distribution Width 19.5 % Platelet Count 193 TH/MM3 Mean Platelet Volume 10.0 FL Neutrophils (%) (Auto) 69.5 % Lymphocytes (%) (Auto) 13.3 % Monocytes (%) (Auto) 12.1 % Eosinophils (%) (Auto) 4.3 % Basophils (%) (Auto) 0.8 % Neutrophils # (Auto) 4.5 TH/MM3 Lymphocytes # (Auto) 0.9 TH/MM3 Monocytes # (Auto) 0.8 TH/MM3 Eosinophils # (Auto) 0.3 TH/MM3 Basophils # (Auto) 0.1 TH/MM3 CBC Comment AUTO DIFF Differential Comment AUTO DIFF CONFIRMED Ovalocytes 1+ Prothrombin Time 12.1 SEC Prothromb Time International 1.1 RATIO Ratio Activated Partial 26.0 SEC Thromboplast Time Sodium Level 142 MEQ/L Potassium Level 4.0 MEQ/L Chloride Level 107 MEQ/L Carbon Dioxide Level 23.1 MEQ/L Anion Gap 12 MEQ/L Blood Urea Nitrogen 39 MG/DL Creatinine 3.60 MG/DL Estimat Glomerular Filtration 13 ML/MIN Rate Random Glucose 103 MG/DL Calcium Level 8.5 MG/DL Total Bilirubin 0.6 MG/DL Aspartate Amino Transf 8 U/L (AST/SGOT) Alanine Aminotransferase 11 U/L (ALT/SGPT) Alkaline Phosphatase 97 U/L Total Protein 6.5 GM/DL Albumin 3.0 GM/DL Urine Color YELLOW Urine Turbidity HAZY Urine pH 6.5 Urine Specific [place] 1.011 Urine Protein 300 mg/dL Urine Glucose (UA) TRACE mg/dL Urine Ketones NEG mg/dL Urine Occult Blood SMALL Urine Nitrite NEG Urine Bilirubin NEG Urine Urobilinogen LESS THAN 2.0 MG/DL Urine Leukocyte Esterase MOD Urine RBC 26 /hpf Urine WBC 53 /hpf Urine WBC Clumps FEW Urine Squamous Epithelial 1 /hpf Cells Urine Bacteria RARE /hpf Urine Hyaline Casts 1 /lpf Urine Mucus FEW /lpf Urine Yeast (Budding) Microscopic Urinalysis Comment CULTURE INDICATED Blood Gas Puncture Site RT RADIAL RT RADIAL Blood Gas Patient Temperature 98.6 98.6 Blood Gas HCO3 23 mmol/L 24 mmol/L Blood Gas Base Excess -1.7 mmol/L -2.1 mmol/L Blood Gas Oxygen Saturation 96 % 95 % Arterial Blood pH 7.37 7.25 Arterial Blood Partial 41 mmHg 57 mmHg Pressure CO2 Arterial Blood Partial 114 mmHg 118 mmHg Pressure O2 Arterial Blood Oxygen Content 12.9 Vol % 12.2 Vol % Arterial Blood 1.4 % 1.3 % Carboxyhemoglobin Arterial Blood Methemoglobin 1.2 % 1.3 % Blood Gas Hemoglobin 9.5 G/DL 9.0 G/DL Oxygen Delivery Device VENTILATOR Partial Rebreather Blood Gas Ventilator Setting CPAP+5/PS+10 Blood Gas Inspired Oxygen 40 % % Blood Gas Liter Flow 15 L/M Test 07/21/16 07/21/16 04:30 05:30 White Blood Count 5.4 TH/MM3 Red Blood Count 3.97 MIL/MM3 Hemoglobin 9.0 GM/DL Hematocrit 28.4 % Mean Corpuscular Volume 71.5 FL Mean Corpuscular Hemoglobin 22.7 PG Mean Corpuscular Hemoglobin 31.8 % Concent Red Cell Distribution Width 19.0 % Platelet Count 173 TH/MM3 Mean Platelet Volume 10.3 FL Neutrophils (%) (Auto) 66.1 % Lymphocytes (%) (Auto) 14.4 % Monocytes (%) (Auto) 12.7 % Eosinophils (%) (Auto) 6.1 % Basophils (%) (Auto) 0.7 % Neutrophils # (Auto) 3.5 TH/MM3 Lymphocytes # (Auto) 0.8 TH/MM3 Monocytes # (Auto) 0.7 TH/MM3 Eosinophils # (Auto) 0.3 TH/MM3 Basophils # (Auto) 0.0 TH/MM3 CBC Comment AUTO DIFF Sodium Level 142 MEQ/L Potassium Level 4.1 MEQ/L Chloride Level 108 MEQ/L Carbon Dioxide Level 23.3 MEQ/L Anion Gap 11 MEQ/L Blood Urea Nitrogen 40 MG/DL Creatinine 3.55 MG/DL Estimat Glomerular Filtration 14 ML/MIN Rate Random Glucose 123 MG/DL Calcium Level 8.0 MG/DL Blood Gas Puncture Site RT RADIAL Blood Gas Patient Temperature 98.6 Blood Gas HCO3 23 mmol/L Blood Gas Base Excess -2.3 mmol/L Blood Gas Oxygen Saturation 93 % Arterial Blood pH 7.30 Arterial Blood Partial 48 mmHg Pressure CO2 Arterial Blood Partial 85 mmHg Pressure O2 Arterial Blood Oxygen Content 12.0 Vol % Arterial Blood 1.6 % Carboxyhemoglobin Arterial Blood Methemoglobin 1.1 % Blood Gas Hemoglobin 9.0 G/DL Oxygen Delivery Device BiPAP Blood Gas Ventilator Setting 10IPAP/5EPAP Blood Gas Inspired Oxygen 40 % Imaging Last Impressions Consultation 07/19/16 0000 Signed Impressions: Service Date/Time: Tuesday, July 19, 2016 00:00 - CONCLUSION: Procedure not performed secondary to cardiopulmonary arrest. Emre Daniel MD Chest X-Ray 07/19/16 0000 Signed Impressions: Service Date/Time: Tuesday, July 19, 2016 18:38 - CONCLUSION: Left basilar opacity is present may be due to a combination of consolidation and or pleural effusion and diffuse pulmonary edema. Amita Lindsey MD Head CT 07/18/16 1237 Signed Impressions: Service Date/Time: July 12:43 - CONCLUSION: 1. No evidence of acute intracranial pathology. No masses are identified. Emre Daniel MD Brain MRI 07/18/16 0000 Signed Impressions: Service Date/Time: July 17:15 - CONCLUSION: White matter hyperintensities prominent for age indicating possible demyelinating disorder. No evidence of acute infarct. Eliezer Shay MD Abdomen X-Ray 07/18/16 0000 Signed Impressions: Service Date/Time: July 15:39 - CONCLUSION: No evidence of obstruction. No MRI incompatible foreign body is identified. Eliezer Shay MD Objective Remarks GENERAL: Patient is 50 F awake and alert extubated. SKIN: Warm and dry. HEAD: Normocephalic. EYES: No scleral icterus. No injection or drainage. NECK: Supple, trachea midline. No JVD or lymphadenopathy. CARDIOVASCULAR: Regular rate and rhythm without murmurs, gallops, or rubs. RESPIRATORY: Breath sounds equal bilaterally. No accessory muscle use. GASTROINTESTINAL: Abdomen soft, non-tender, nondistended. MUSCULOSKELETAL: No cyanosis, or edema. Neuro: Awake and laert A/P Assessment and Plan 50-year-old female with: Encephalopathy : Secondary to CO2 retention- improved VDRF- extubated / CHF non-ST elevation MS Acute on CKD Diabetes mellitus Anemia morbid obesity History of depression History of hypertension UTI Plan: Neuro: Awake and alert. Monitor neuro status and avoid sedatives, Continue aspirin. 07/18 MRI brain: White matter hyperintensities prominent for age indicating possible demyelinating disorder. No evidence of acute infarct. 07/18 CT brain: No acute infarct 07/19 EEG: Mild- mod encephalopathy Neuro is following CV: Monitor HR and BP keep MAP>65mmHg. Patient declined cardiac catheterization on 07/18 due to concern that she may end up on hemodialysis Cards- Dr. Choudhury. Continue with ASA, Lipitor daily. On Coreg 25mg BID, Lisinopril 20mg daily, Hydralazine 50mg TID Pulmo: Continue with vent support keep sat >92% Bronchodilators, ICU vent bundle. GI/liver: Speech eval, diet per speech Renal/: Monitor renal function, I/O's, avoid nephrotoxins Renal- Dr. Garcia, On Bumex 1mg BID Renal function slowly improving with Cr: 3.55 today from 3.6 and UO: 4175ml in 24 hrs ID: Place on Rocephin ir UTI, monitor for signs of infections ( Fever, WBC) follow up on urine and sputum cxs. Endocrine: SSI for glycemic control as needed Heme:Monitor CBC. On FeSO4 325mg BID Prophylaxis: PPI/SCDs/Heparin SQ Level 3 Peter Donnelly MD Jul 21, 2016 07:59
[2016-07-21] MEDS: GABAPENTIN 300 MG CAP PO SCH (08:25)
[2016-07-21] MEDS: ALBUMIN HUMAN 25% 25 GM/100 ML BAGP IV SCH ×2 (08:25→16:28)
[2016-07-21] MEDS: BUMETANIDE INJ 1 MG/4 ML VIAL IV PUSH SCH ×2 (08:25→16:28)
[2016-07-21] MEDS: PANTOPRAZOLE SODIUM 40 MG VIAL IV SCH (08:25)
[2016-07-21] MEDS: HEPARIN SODIUM - SQ 10,000 UNITS/ML VIAL SQ SCH ×2 (08:25→19:32)
[2016-07-21] MEDS: FERROUS SULFATE 325 MG (65 MG ELEMENTAL IRON) TAB PO SCH ×2 (08:26→19:32)
[2016-07-21] MEDS: CHLORHEXIDINE 0.12% (ORAL KIT) 15 ML CUP MT SCH ×2 (08:26→19:33)
[2016-07-21] MEDS: CARVEDILOL 12.5 MG TAB PO SCH ×2 (08:26→19:33)
[2016-07-21] MEDS: ASPIRIN EC 81 MG TABEC PO SCH (08:26)
[2016-07-21] MEDS: hydrALAZINE HCL 50 MG TAB PO SCH ×3 (08:26→16:28)
[2016-07-21] MEDS: SODIUM CHLORIDE 0.9% FLUSH 5 ML FLUSH IVF SCH ×2 (08:26→19:33)
[2016-07-21] MEDS: LISINOPRIL 20 MG TAB PO SCH (08:26)
[2016-07-21] MEDS: cefTRIAXone INJ 1,000 MG in SODIUM CHLORIDE 0.9% INJ 100 ML IV SCH (08:57)
[2016-07-21] MEDS ORDERED: MORPHINE SULFATE 4 MG/ML INJ IV PUSH ONE (09:15)
[2016-07-21 09:21] LABS: ACANTHOCYTES OCC (NORMAL); OVALOCYTES 1+ (NORMAL); SCAN/DIFF AUTO DIFF CONFIRMED
--- NOTE | 2016-07-21 12:03 | HHI.NPPN ---
Subjective History of Present Illness 50 year old with CKD 4/5 Diabetes Nephrotic range proteinuria Additional Remarks Patient coded Friday and was re-intubated. Extubated yesterday, feeling better today. Good UOP. Review of Systems General Constitutional: Fatigue Cardiovascular Cardiac: Edema Objective Data Data 07/20/16 07/21/16 19:00 07:00 Intake Total 503 ml 220 ml Output Total 2525 ml 1650 ml Balance -2022 ml -1430 ml Intake Oral 200 ml IV Total 183 ml 20 ml Albumin 200 ml Tube Irrigant 120 ml Output Urine Total 2525 ml 1650 ml # Bowel Movements 0 0 Vital Signs Date Time Temp Pulse Resp B/P Pulse Ox O2 Delivery O2 Flow Rate FiO2 07/21/16 10:00 80 07/21/16 09:38 17 07/21/16 08:00 98.8 80 17 155/72 96 07/21/16 08:00 80 07/21/16 07:40 93 Nasal Cannula 6.00 07/21/16 07:00 96 Nasal Cannula 6.00 07/21/16 06:00 73 07/21/16 04:25 91 40 07/21/16 04:00 70 07/21/16 04:00 98.6 70 18 152/75 93 07/21/16 03:09 92 40 07/21/16 02:50 99 Partial Rebreather 15.00 07/21/16 02:00 71 07/21/16 00:00 73 07/21/16 00:00 98.9 73 12 136/65 90 07/20/16 22:00 80 07/20/16 20:53 93 Nasal Cannula 4.00 07/20/16 20:00 100.2 80 12 142/62 95 07/20/16 20:00 80 07/20/16 19:00 95 Nasal Cannula 4.00 07/20/16 18:00 80 07/20/16 17:04 21 07/20/16 16:46 98 Nasal Cannula 4 36 07/20/16 16:00 35 07/20/16 16:00 72 07/20/16 16:00 100.1 80 20 158/78 95 07/20/16 14:00 66 07/20/16 12:00 66 07/20/16 12:00 40 07/20/16 12:00 98.3 66 20 177/93 95 -: 07/21/16 0430 07/21/16 0430 Microbiology 07/20/16 Urine Culture, Received Pending 07/20/16 Gram Stain - Final, Resulted 07/20/16 Sputum Culture, Resulted Pending Physical Exam General Appearance: Well Developed, Obese Neck Neck Exam: Neck Supple Pulmonary Resp Exam: Decreased Bases Cardiology CV Exam: Regular, Normal Sinus Rhythm Gastrointestinal/Abdomen GI Exam: Soft, Distended Extremeties Extremities Exam: Pitting Edema, Dependent Edema Neurologic Neuro Exam: Alert, Awake, Sedated Assessment/Plan Problem List: (1) Stage 4 chronic kidney disease Plan: Patient with advanced kidney disease and the has been evaluated by Dr. Medley in May, MATEUS/SPEP Neg Nephrotic proteinuria 10 grams - likely DM nephropathy Had planned for vascath and dialysis Friday for fluid removal - however patient coded and was re-intubated, no dialysis access. Patient had significant improvement in UOP over the last 48 hours on Bumex 1 mg q 12 Extubated now, with 4.1 L UOP/ 24 hours Creatinine 3.6 -> 3.55 No need for HD at this time, continue diuresis. Continue bumex for now at 1mg IV BID. As patient stabilizes, may consider for AV access. (2) Nephrotic syndrome Plan: Protein to creatinine ratio above 10 10.52 (3) Acute exacerbation of CHF (congestive heart failure) Plan: This is likely due to chronic kidney disease and diastolic dysfunction (4) Diabetes Plan: Advance manifestations diabetic nephropathy, retinopathy and neuropathy (5) HTN (hypertension) Plan: Continue to monitor (6) Respiratory failure Plan: extubated now, continue diuresis Problem Qualifiers (1) Acute exacerbation of CHF (congestive heart failure): Qualified Code: I50.9 - Acute on chronic congestive heart failure, unspecified congestive heart failure type (2) Diabetes: (3) HTN (hypertension): Qualified Code: I10 - Essential hypertension Tex Whiting MD Jul 21, 2016 12:03
[2016-07-21] MEDS: ATORVASTATIN 80 MG TAB PO SCH (19:32)
[2016-07-21] MEDS: AMITRIPTYLINE HCL 50 MG TAB PO SCH (19:33)
[2016-07-22] VITALS (16 sets, daily range): BP systolic 149–183; BP diastolic 61–96; PULSE 66–78; RESP 16–22; TEMP 97.5–98.7; O2SAT 79–98
[2016-07-22] MEDS: cloNIDine HCL 0.1 MG TAB PO PRN (03:11)
[2016-07-22] MEDS: INSULIN NovoLIN REGULAR SUPPLEMENTAL SCALE SQ SCH ×4 (04:31→22:37)
[2016-07-22] MEDS: CHLORHEXIDINE GLUCONATE 2 % 1 PACK (2 CLOTHS) TOP SCH (04:32)
[2016-07-22] MEDS: LABETALOL HCL 100 MG/20 ML VIAL IV PUSH PRN (05:04)
[2016-07-22] MEDS: hydrALAZINE HCL 20 MG/ML VIAL IV PUSH PRN ×3 (05:31→19:50)
[2016-07-22] MEDS ORDERED: hydrALAZINE HCL 20 MG/ML VIAL IV SCH (06:45)
[2016-07-22 07:58] LABS: AUTOMATED NEUTROPHIL # 3.2 TH/MM3 (1.8-7.7); BASOPHIL % 0.7 % (0.0-2.0); EOSINOPHIL # 0.1 TH/MM3 (0-0.4); EOSINOPHIL % 2.6 % (0.0-4.0); HEMATOCRIT 28.5 % (35.0-46.0); LYMPH % 17.2 % (9.0-44.0); LYMPHOCYTE # 0.8 TH/MM3 (1.0-4.8); MEAN CELL VOLUME 71.7 FL (80.0-100.0); MEAN CORPUSCULAR HEMOGLOBIN 22.4 PG (27.0-34.0); MEAN CORPUSCULAR HGB CONC 31.2 % (32.0-36.0); NEUT % 66.5 % (16.0-70.0); PLATELET COUNT 167 TH/MM3 (150-450); RED BLOOD COUNT 3.98 MIL/MM3 (4.00-5.30); RED CELL DISTRIBUTION WIDTH 18.7 % (11.6-17.2); WHITE BLOOD COUNT 4.8 TH/MM3 (4.0-11.0)
[2016-07-22] MEDS: CHLORHEXIDINE 0.12% (ORAL KIT) 15 ML CUP MT SCH ×2 (08:00→19:50)
[2016-07-22 08:05] LABS: HEMO FLAGS AUTO DIFF
[2016-07-22] MEDS: ALBUMIN HUMAN 25% 25 GM/100 ML BAGP IV SCH ×2 (08:23→17:14)
[2016-07-22] MEDS: ASPIRIN EC 81 MG TABEC PO SCH (08:28)
[2016-07-22] MEDS: FERROUS SULFATE 325 MG (65 MG ELEMENTAL IRON) TAB PO SCH ×2 (08:28→19:50)
[2016-07-22] MEDS: PANTOPRAZOLE SODIUM 40 MG VIAL IV SCH (08:28)
[2016-07-22] MEDS: hydrALAZINE HCL 50 MG TAB PO SCH ×3 (08:28→18:15)
[2016-07-22] MEDS: cefTRIAXone INJ 1,000 MG in SODIUM CHLORIDE 0.9% INJ 100 ML IV SCH (08:28)
[2016-07-22] MEDS: HEPARIN SODIUM - SQ 10,000 UNITS/ML VIAL SQ SCH ×2 (08:28→19:49)
[2016-07-22] MEDS: CARVEDILOL 12.5 MG TAB PO SCH ×2 (08:29→19:50)
[2016-07-22] MEDS: SODIUM CHLORIDE 0.9% FLUSH 5 ML FLUSH IVF SCH ×2 (08:29→19:50)
[2016-07-22] MEDS: LISINOPRIL 20 MG TAB PO SCH (08:29)
[2016-07-22] MEDS: GABAPENTIN 300 MG CAP PO SCH (08:29)
[2016-07-22 08:30] LABS: BICARBONATE 26.4 MEQ/L (21.0-32.0)
[2016-07-22] MEDS: RESP: ALBUTEROL 2.5 MG/IPRATROPIUM 0.5 MG NEB (SCH) NEB ×3 (08:40→20:30)
--- NOTE | 2016-07-22 08:46 | PD.CARD.PN ---
Subjective Subjective Remarks No chest pain, no shortness of breath Objective Medications Current Medications Medications (Trade) Dose Ordered Sig/Christa Route Start Time Stop Time Status Last Admin (Narcan Inj) 0.4 mg UNSCH PRN IV 07/15/16 20:45 (Bumex Inj) 1 mg BID@09,18 IV PUSH 07/16/16 09:00 07/21/16 16:28 (Elavil) 50 mg HS PO 07/16/16 21:00 07/21/16 19:33 (Norvasc) 10 mg DAILY PO 07/16/16 09:00 Hold 07/18/16 11:04 (Ecotrin Ec) 81 mg DAILY PO 07/16/16 09:00 07/22/16 08:28 (Lipitor) 80 mg HS PO 07/16/16 21:00 07/21/16 19:32 (Coreg) 25 mg BID PO 07/16/16 09:00 07/22/16 08:29 (Ferrous Sulfate) 325 mg BID PO 07/16/16 09:00 07/22/16 08:28 (Apresoline) 50 mg TID PO 07/16/16 09:00 07/22/16 08:28 (Albumin 25% Inj) 25 gm BID@ IV 07/16/16 17:00 07/22/16 08:23 (Prinivil) 20 mg DAILY PO 07/17/16 09:00 07/22/16 08:29 ([place] 5-325 Mg) 1 tab Q6H PRN PO 07/16/16 23:30 07/19/16 00:30 (Zofran Inj) 4 mg Q6HR PRN IV PUSH 07/18/16 06:00 07/18/16 05:57 (NS Flush) 2 ml UNSCH PRN IVF 07/18/16 13:45 (NS Flush) 2 ml BID IVF 07/18/16 21:00 07/22/16 08:29 (Peridex 0.12% Liq) 15 ml BID@08,20 MT 07/18/16 20:00 07/21/16 19:33 (Protonix Inj) 40 mg DAILY IV 07/19/16 09:00 07/22/16 08:28 Miscellaneous Information 1 Q361D XX 07/18/16 13:45 07/18/16 13:45 (Chlorhexidine 2% Cloth) 3 pack Taper DAILY@04 TOP 07/19/16 04:00 07/15/17 03:59 07/22/16 04:32 Chlorhexidine Gluconate 3 pack 3 pack UNSCH PRN TOP 07/18/16 13:45 (NS 1000 ml Inj) 1,000 ml @ 0 mls/hr Q0M PRN IV 07/19/16 12:15 Heparin Sodium (Porcine) 8000 units 8,000 units UNSCH PRN IVF 07/19/16 12:15 (NS 1000 ml Inj) 1,000 ml @ 0 mls/hr Q0M PRN IV 07/19/16 12:15 (Mannitol Inj) 12.5 gm UNSCH PRN IV 07/19/16 12:15 (Albumin 25% Inj) 25 gm UNSCH PRN IV 07/19/16 12:15 (NS Flush) 5 ml UNSCH PRN IVF 07/19/16 12:15 (Heparin Inj) UNSCH PRN .XX 07/19/16 12:15 (Gentamicin (Dialysis) Inj) 20 mg UNSCH PRN IV 07/19/16 12:15 (Zofran Inj) 4 mg UNSCH PRN IV 07/19/16 12:15 (Tylenol) 650 mg UNSCH PRN PO 07/19/16 12:15 07/20/16 20:41 (Benadryl) 25 mg UNSCH PRN PO 07/19/16 12:15 (Nitrostat Sl) 0.4 mg UNSCH PRN SL 07/19/16 12:15 (Catapres) 0.1 mg UNSCH PRN PO 07/19/16 12:15 07/22/16 03:11 (Epogen Inj) 4,000 units UNSCH PRN IV 07/19/16 12:15 (Gelfoam 12 Mm/7 Mm Top) 1 foam UNSCH PRN TOP 07/19/16 12:15 (Heparin Inj) 5,000 units Q12HR SQ 07/20/16 21:00 07/22/16 08:28 (D50w (Vial) Inj) 25 ml UNSCH PRN IV PUSH 07/20/16 09:45 (Glucagon Inj) 1 mg UNSCH PRN OTHER 07/20/16 09:45 Insulin Human Regular 1 1 Q6H SQ 07/20/16 11:00 (Rocephin Inj/NS Inj) 100 ml @ 200 mls/hr Q24H IV 07/21/16 09:00 07/22/16 08:28 (Neurontin) 300 mg DAILY PO 07/22/16 09:00 07/22/16 08:29 (Trandate Inj) 10 mg Q4H PRN IV PUSH 07/22/16 04:45 07/22/16 05:04 (Apresoline Inj) 10 mg Q4H PRN IV PUSH 07/22/16 05:30 07/22/16 05:31 Vital Signs / I&O Vital Signs Date Time Temp Pulse Resp B/P Pulse Ox O2 Delivery O2 Flow Rate FiO2 07/22/16 08:05 98 Nasal Cannula 4.00 07/22/16 06:00 71 07/22/16 04:00 71 07/22/16 04:00 98.5 71 20 183/85 94 07/22/16 03:55 93 Nasal Cannula 3.00 07/22/16 02:00 74 07/22/16 00:17 95 40 07/22/16 00:00 78 07/22/16 00:00 97.8 78 18 170/96 79 07/21/16 22:16 94 Nasal Cannula 4.00 07/21/16 22:00 80 07/21/16 20:00 98.7 86 19 186/97 93 07/21/16 20:00 86 07/21/16 19:00 91 Nasal Cannula 4.00 07/21/16 18:00 89 07/21/16 16:00 89 07/21/16 16:00 97.9 89 11 156/98 89 07/21/16 14:00 86 07/21/16 12:00 84 07/21/16 12:00 98.6 84 13 160/71 91 07/21/16 10:00 80 07/21/16 09:38 17 I/O 07/21/16 07/21/16 07/21/16 07/22/16 07/22/16 07/22/16 07:00 15:00 23:00 07:00 15:00 23:00 Intake Total 10 ml 690 ml 913 ml 495 ml Output Total 300 ml 1000 ml 1400 ml 450 ml Balance -290 ml -310 ml -487 ml 45 ml Intake Oral 0 ml 480 ml 903 ml 480 ml IV Total 10 ml 110 ml 10 ml 15 ml Albumin 100 ml Tube Irrigant 0 ml Output Urine Total 300 ml 1000 ml 1400 ml 450 ml # Bowel Movements 0 0 0 0 Physical Exam GENERAL: NAD, sleeping comfortably SKIN: Warm and dry. HEAD: Atraumatic. Normocephalic. EYES: Pupils equal and round. No scleral icterus. No injection or drainage. ENT: No nasal bleeding or discharge. Mucous membranes pink and moist. NECK: Trachea midline. No JVD. CARDIOVASCULAR: Regular rate and rhythm. RESPIRATORY: No accessory muscle use. Decreased breath sounds bilaterally GASTROINTESTINAL: Abdomen soft, non-tender, nondistended. Hepatic and splenic margins not palpable. MUSCULOSKELETAL: 2+ pitting edema bilaterally NEUROLOGICAL: Awake and alert. No obvious cranial nerve deficits. Moving all extremities PSYCHIATRIC: Appropriate mood and affect; insight and judgment normal. Laboratory Laboratory Tests Test 07/22/16 07:03 White Blood Count 4.8 TH/MM3 Red Blood Count 3.98 MIL/MM3 Hemoglobin 8.9 GM/DL Hematocrit 28.5 % Mean Corpuscular Volume 71.7 FL Mean Corpuscular Hemoglobin 22.4 PG Mean Corpuscular Hemoglobin 31.2 % Concent Red Cell Distribution Width 18.7 % Platelet Count 167 TH/MM3 Mean Platelet Volume 9.3 FL Neutrophils (%) (Auto) 66.5 % Lymphocytes (%) (Auto) 17.2 % Monocytes (%) (Auto) 13.0 % Eosinophils (%) (Auto) 2.6 % Basophils (%) (Auto) 0.7 % Neutrophils # (Auto) 3.2 TH/MM3 Lymphocytes # (Auto) 0.8 TH/MM3 Monocytes # (Auto) 0.6 TH/MM3 Eosinophils # (Auto) 0.1 TH/MM3 Basophils # (Auto) 0.0 TH/MM3 CBC Comment AUTO DIFF Sodium Level 143 MEQ/L Potassium Level 4.0 MEQ/L Chloride Level 106 MEQ/L Carbon Dioxide Level 26.4 MEQ/L Anion Gap 11 MEQ/L Blood Urea Nitrogen 42 MG/DL Creatinine 3.28 MG/DL Estimat Glomerular Filtration 15 ML/MIN Rate Random Glucose 129 MG/DL Calcium Level 7.9 MG/DL Assessment and Plan Problem List: (1) Acute exacerbation of CHF (congestive heart failure) (2) Stage 4 chronic kidney disease (3) HTN (hypertension) (4) Diabetes (5) Elevated troponin (6) Stented coronary artery (7) Respiratory failure Assessment and Plan 1) Admitted with increased edema and SOB, denies CP... ran out of diuretic at home for 2 weeks, unable to get in to see primary doctor (needs a new one) 2) Continue gentle diuresis as possible 3) Minimally elevated troponin, most likely due to fluid overloaded state, HTN episode, CKD... previous stress test showing mild small lateral wall defect, offered diagnostic cath with a plan for staged intervention if needed, wants to continue medical management 4) Not started on dialysis due to resp distress/arrest requiring intubation, creatinine getting better 5) Still quite hypertensive on multiple medications, snoring every time I enter the room, should be worked up for PALMER 6) Will change Norvasc to Procardia for HTN Problem Qualifiers (1) Acute exacerbation of CHF (congestive heart failure): Qualified Code: I50.9 - Acute on chronic congestive heart failure, unspecified congestive heart failure type (2) HTN (hypertension): Qualified Code: I10 - Essential hypertension (3) Diabetes: Juancho Choudhury DO Jul 22, 2016 08:46
[2016-07-22 08:51] LABS: OVALOCYTES 1+ (NORMAL); PLATELET ESTIMATE SMEAR NORMAL (NORMAL); PLATELET MORPHOLOGY NORMAL (NORMAL); SCAN/DIFF AUTO DIFF CONFIRMED
[2016-07-22] MEDS: BUMETANIDE INJ 1 MG/4 ML VIAL IV PUSH SCH ×2 (09:19→18:15)
[2016-07-22] MEDS: NIFEdipine 10 MG CAP PO SCH ×3 (10:25→22:37)
--- NOTE | 2016-07-22 10:31 | HHI.CCPN ---
Subjective Remarks/Hospital Course 07/18: 50 y/o female with a history of chf, depression, htn, dm, and ckd presented to the ED on 07/15 with complaints of dyspnea, swelling in her lower extremities and a 50lb weight gain since last admission 06/03/16. Patient had gained 50 lbs in fluid from last admission. She presented with increased shortness of breath with intermittent chest pressure with no radiation or associated symptoms. She was admitted on 05/31/16 and diagnosed with CHF, discharged home on on Bumex. Patient states she recently ran out of meds and has not followed up with a doctor due to transportation issues. She is not from here and her pcp is 2 hours away and she does not want her kids to take off work to take her to appointments. She is hoping to move back in 2 weeks or so. She states she tried to call a instrumentation engineer to follow up but they required her records and she did not get them. Despite taking Bumex she states she has not had an increase in urination. Last admission 2d echo showed systolic dysfunction with EF 50%, she was seen by DR. Choudhury, and DR. Medley. Patient was admitted by hospitalist service. She was evaluated by Dr. Choudhury from cardiology who offered cardiac catheterization as patient did have an elevated troponin and previous abnormal stress test however she was concerned regarding ending up on hemodialysis so she refused. Patient was reportedly on nasal cannula earlier today however around 1:30 PM was noted to be lethargic and minimally responsive. Stroke alert was called. Head CT was negative for bleed. Recent had an ABG done which revealed pH of 7.0/PCO2 87/PO2 49. Critical care service was contacted by Dr. Mckeon. Both myself and Dr. Ott arrived at bedside. Patient was encephalopathic though arousable with painful stimuli occasional morning however not following commands. Her fingerstick glucose was in the 140s earlier. Decision was made to proceed with endotracheal intubation which was performed by Dr. Goff. A stat MRI brain was ordered to evaluate for CVA after discussion with Dr. Estes. 07/19: Awakens easily off sedation following commands this morning. On mechanical ventilation. MRI brain done yesterday did not show any acute event. 07/20 Patient was extubated yesterday went to IR for vascath placement and had resp arrest she was subsequently reintubated. Now sedated with Diprivan. Afebrile. MRI brain showed no evidence of acute infract. 07/21 Patient s/p extubation yesterday was given racemic Decadron 4mg IV x1 and racemic epi for ? stridor overnight placed on BIPAP 03/20 with 40% FIO2. ABG on BIPAP shows improvements in her resp acidosis with PH 7.30 and CO2: 48 from 57. Now of BIPAP and is on 6L oxygen. 07/22 No acute events overnight. Patient is on 4L oxygen with good sats. Afebrile. renal function improving with Cr: 3.22 and UO: 2850ml in 24 hrs Objective Vital Signs Date Time Temp Pulse Resp B/P Pulse Ox O2 Delivery O2 Flow Rate FiO2 07/22/16 08:05 98 Nasal Cannula 4.00 07/22/16 06:00 71 07/22/16 04:00 98.5 20 183/85 07/22/16 00:17 40 Intake and Output 07/21/16 07/21/16 07/22/16 08:00 16:00 00:00 Intake Total 10 ml 690 ml 913 ml Output Total 300 ml 1000 ml 1400 ml Balance -290 ml -310 ml -487 ml Result Diagram: 07/22/16 0703 07/22/16 0703 Other Results Laboratory Tests Test 07/22/16 07:03 White Blood Count 4.8 TH/MM3 Red Blood Count 3.98 MIL/MM3 Hemoglobin 8.9 GM/DL Hematocrit 28.5 % Mean Corpuscular Volume 71.7 FL Mean Corpuscular Hemoglobin 22.4 PG Mean Corpuscular Hemoglobin 31.2 % Concent Red Cell Distribution Width 18.7 % Platelet Count 167 TH/MM3 Mean Platelet Volume 9.3 FL Neutrophils (%) (Auto) 66.5 % Lymphocytes (%) (Auto) 17.2 % Monocytes (%) (Auto) 13.0 % Eosinophils (%) (Auto) 2.6 % Basophils (%) (Auto) 0.7 % Neutrophils # (Auto) 3.2 TH/MM3 Lymphocytes # (Auto) 0.8 TH/MM3 Monocytes # (Auto) 0.6 TH/MM3 Eosinophils # (Auto) 0.1 TH/MM3 Basophils # (Auto) 0.0 TH/MM3 CBC Comment AUTO DIFF Differential Comment AUTO DIFF CONFIRMED Platelet Estimate NORMAL Platelet Morphology Comment NORMAL Ovalocytes 1+ Sodium Level 143 MEQ/L Potassium Level 4.0 MEQ/L Chloride Level 106 MEQ/L Carbon Dioxide Level 26.4 MEQ/L Anion Gap 11 MEQ/L Blood Urea Nitrogen 42 MG/DL Creatinine 3.28 MG/DL Estimat Glomerular Filtration 15 ML/MIN Rate Random Glucose 129 MG/DL Calcium Level 7.9 MG/DL Imaging Last Impressions Consultation 07/19/16 0000 Signed Impressions: Service Date/Time: Tuesday, July 19, 2016 00:00 - CONCLUSION: Procedure not performed secondary to cardiopulmonary arrest. Emre Daniel MD Chest X-Ray 07/19/16 0000 Signed Impressions: Service Date/Time: Tuesday, July 19, 2016 18:38 - CONCLUSION: Left basilar opacity is present may be due to a combination of consolidation and or pleural effusion and diffuse pulmonary edema. Amita Lindsey MD Head CT 07/18/16 1237 Signed Impressions: Service Date/Time: July 12:43 - CONCLUSION: 1. No evidence of acute intracranial pathology. No masses are identified. Emre Daniel MD Brain MRI 07/18/16 0000 Signed Impressions: Service Date/Time: July 17:15 - CONCLUSION: White matter hyperintensities prominent for age indicating possible demyelinating disorder. No evidence of acute infarct. Eliezer Shay MD Abdomen X-Ray 07/18/16 0000 Signed Impressions: Service Date/Time: July 15:39 - CONCLUSION: No evidence of obstruction. No MRI incompatible foreign body is identified. Eliezer Shay MD Objective Remarks GENERAL: Patient is 50 F awake and alert SKIN: Warm and dry. HEAD: Normocephalic. EYES: No scleral icterus. No injection or drainage. NECK: Supple, trachea midline. No JVD or lymphadenopathy. CARDIOVASCULAR: Regular rate and rhythm without murmurs, gallops, or rubs. RESPIRATORY: Breath sounds equal bilaterally. No accessory muscle use. GASTROINTESTINAL: Abdomen soft, non-tender, nondistended. MUSCULOSKELETAL: No cyanosis, or edema. Neuro: Awake and alert A/P Assessment and Plan 50-year-old female with: Encephalopathy : Secondary to CO2 retention- improved VDRF- extubated CHF non-ST elevation NE Acute on CKD Diabetes mellitus Anemia morbid obesity History of depression History of hypertension UTI Plan: Neuro: Awake and alert. Monitor neuro status and avoid sedatives, Continue aspirin. 07/18 MRI brain: White matter hyperintensities prominent for age indicating possible demyelinating disorder. No evidence of acute infarct. 07/18 CT brain: No acute infarct 07/19 EEG: Mild- mod encephalopathy Neuro is following CV: Monitor HR and BP keep MAP>65mmHg. Patient declined cardiac catheterization on 07/18 due to concern that she may end up on hemodialysis Cards- Dr. Choudhury. Continue with ASA, Lipitor daily. On Coreg 25mg BID, Lisinopril 20mg daily, Hydralazine 50mg TID, Procardia 10mg Q8 Pulmo: Continue with vent support keep sat >92% Bronchodilators, ICU vent bundle. GI/liver: Speech eval, diet per speech Renal/: Monitor renal function, I/O's, avoid nephrotoxins Renal- Dr. Garcia, On Bumex 1mg BID Renal function slowly improving with Cr: 3.22 today and UO 2850ml in 24 hrs ID: Continue Rocephin,add Zyvox 600mg Q12, monitor for signs of infections ( Fever, WBC) follow up on urine cx 07/20 sputum cx: MRSA Endocrine: SSI for glycemic control as needed Heme:Monitor CBC. On FeSO4 325mg BID Prophylaxis: PPI/SCDs/Heparin SQ Will sign off and transfer care to [facility] Level 3 Peter Donnelly MD Jul 22, 2016 09:51
[2016-07-22] MEDS ORDERED: NYSTATIN 100,000 U/GM PWD 15 GM BTL TOPICAL PRN (16:00)
[2016-07-22] MEDS: LINEZOLID 600 MG TAB PO SCH (16:10)
--- NOTE | 2016-07-22 16:59 | HHI.NPPN ---
Subjective History of Present Illness 50 year old with CKD 4/5 Diabetes Nephrotic range proteinuria Additional Remarks Patient is alert, and extubated, now with nasal cannula, not in distress. Review of Systems General Constitutional: Fatigue Cardiovascular Cardiac: Edema Objective Data Data 07/21/16 07/22/16 19:00 07:00 Intake Total 690 ml 1408 ml Output Total 1000 ml 1850 ml Balance -310 ml -442 ml Intake Oral 480 ml 1383 ml IV Total 110 ml 25 ml Albumin 100 ml Tube Irrigant 0 ml Output Urine Total 1000 ml 1850 ml # Bowel Movements 0 0 Vital Signs Date Time Temp Pulse Resp B/P Pulse Ox O2 Delivery O2 Flow Rate FiO2 07/22/16 11:00 89 Nasal Cannula 5.00 07/22/16 08:05 98 Nasal Cannula 4.00 07/22/16 07:00 92 Nasal Cannula 4.00 07/22/16 06:00 71 07/22/16 04:00 71 07/22/16 04:00 98.5 71 20 183/85 94 07/22/16 03:55 93 Nasal Cannula 3.00 07/22/16 02:00 74 07/22/16 00:17 95 40 07/22/16 00:00 78 07/22/16 00:00 97.8 78 18 170/96 79 07/21/16 22:16 94 Nasal Cannula 4.00 07/21/16 22:00 80 07/21/16 20:00 98.7 86 19 186/97 93 07/21/16 20:00 86 07/21/16 19:00 91 Nasal Cannula 4.00 07/21/16 18:00 89 -: 07/22/16 0703 07/22/16 0703 Physical Exam General Appearance: No Acute Distress, Comfortable, Obese Throat Throat Exam: Oral Mucosa [place] & Moist Neck Neck Exam: Neck Supple Pulmonary Resp Exam: Crackles, Rhonchi, Decreased Bases, Diminished Breath Sounds Cardiology CV Exam: Regular, Normal Sinus Rhythm Gastrointestinal/Abdomen GI Exam: Soft, Distended Extremeties Extremities Exam: Pitting Edema, Dependent Edema Neurologic Neuro Exam: Alert, Awake, Sedated Psychiatric Psych Exam: Appropriate Responses Assessment/Plan Problem List: (1) Stage 4 chronic kidney disease Plan: Patient with advanced kidney disease and had the workup in May. including MATEUS/SPEP Neg Nephrotic proteinuria 10 grams - likely DM nephropathy HD was not started. She is now extubated. Urine out put increased, Creatinine is slightly better. Most likely has advance Diabetic Nephropathy. No urgent need for HD at present. Continue Bumex and follow urine out put and BMP. (2) Nephrotic syndrome Plan: Protein to creatinine ratio above 10 10.52 (3) Acute exacerbation of CHF (congestive heart failure) Plan: This is likely due to chronic kidney disease and diastolic dysfunction (4) Diabetes Plan: Advance manifestations diabetic nephropathy, retinopathy and neuropathy (5) HTN (hypertension) Plan: Continue to monitor (6) Respiratory failure Problem Qualifiers (1) Acute exacerbation of CHF (congestive heart failure): Qualified Code: I50.9 - Acute on chronic congestive heart failure, unspecified congestive heart failure type (2) Diabetes: (3) HTN (hypertension): Qualified Code: I10 - Essential hypertension (4) Respiratory failure: Mia Medley MD Jul 22, 2016 16:59
[2016-07-22] MEDS: ATORVASTATIN 80 MG TAB PO SCH (19:50)
[2016-07-22] MEDS: ACETAMINOPHEN/HYDROcodone 325 MG/5 MG TAB PO PRN (22:36)
[2016-07-23] VITALS (16 sets, daily range): BP systolic 107–172; BP diastolic 59–86; PULSE 65–77; RESP 16–24; TEMP 97.4–99.3; O2SAT 88–100
[2016-07-23] MEDS: RESP: ALBUTEROL 2.5 MG/IPRATROPIUM 0.5 MG NEB (SCH) NEB ×5 (03:37→23:00)
[2016-07-23] MEDS: LINEZOLID 600 MG TAB PO SCH ×2 (03:52→13:50)
[2016-07-23] MEDS: CHLORHEXIDINE GLUCONATE 2 % 1 PACK (2 CLOTHS) TOP SCH (04:00)
[2016-07-23] MEDS: INSULIN NovoLIN REGULAR SUPPLEMENTAL SCALE SQ SCH ×4 (04:37→23:00)
[2016-07-23] MEDS: ACETAMINOPHEN/HYDROcodone 325 MG/5 MG TAB PO PRN ×3 (04:39→16:58)
[2016-07-23] MEDS: NIFEdipine 10 MG CAP PO SCH (04:40)
[2016-07-23 06:28] LABS: AUTOMATED NEUTROPHIL # 3.1 TH/MM3 (1.8-7.7); EOSINOPHIL # 0.3 TH/MM3 (0-0.4); EOSINOPHIL % 6.5 % (0.0-4.0); HEMATOCRIT 28.2 % (35.0-46.0); LYMPH % 18.2 % (9.0-44.0); LYMPHOCYTE # 0.9 TH/MM3 (1.0-4.8); MEAN CELL VOLUME 71.5 FL (80.0-100.0); MEAN CORPUSCULAR HEMOGLOBIN 22.3 PG (27.0-34.0); MEAN CORPUSCULAR HGB CONC 31.2 % (32.0-36.0); MONO % 12.8 % (0.0-8.0); NEUT % 61.5 % (16.0-70.0); PLATELET COUNT 172 TH/MM3 (150-450); RED BLOOD COUNT 3.95 MIL/MM3 (4.00-5.30); RED CELL DISTRIBUTION WIDTH 18.6 % (11.6-17.2); WHITE BLOOD COUNT 5.1 TH/MM3 (4.0-11.0)
[2016-07-23 06:30] LABS: HEMO FLAGS AUTO DIFF
[2016-07-23 07:02] LABS: BICARBONATE 25.1 MEQ/L (21.0-32.0)
[2016-07-23 07:38] LABS: OVALOCYTES 1+ (NORMAL)
[2016-07-23 07:39] LABS: SCAN/DIFF AUTO DIFF CONFIRMED
[2016-07-23] MEDS: CHLORHEXIDINE 0.12% (ORAL KIT) 15 ML CUP MT SCH ×3 (08:00→20:00)
[2016-07-23] MEDS: cefTRIAXone INJ 1,000 MG in SODIUM CHLORIDE 0.9% INJ 100 ML IV SCH (09:00)
[2016-07-23] MEDS: SODIUM CHLORIDE 0.9% FLUSH 5 ML FLUSH IVF SCH ×3 (09:00→21:00)
[2016-07-23] MEDS: ALBUMIN HUMAN 25% 25 GM/100 ML BAGP IV SCH ×2 (09:27→16:51)
[2016-07-23] MEDS: PANTOPRAZOLE SODIUM 40 MG VIAL IV SCH (09:28)
--- NOTE | 2016-07-23 09:54 | PD.CARD.PN ---
Subjective Subjective Remarks Patient noted to having difficulty breathing, knocked the tube for bipap off, replaced and currently breathing better Objective Medications Current Medications Medications (Trade) Dose Ordered Sig/Christa Route Start Time Stop Time Status Last Admin (Narcan Inj) 0.4 mg UNSCH PRN IV 07/15/16 20:45 (Bumex Inj) 1 mg BID@09,18 IV PUSH 07/16/16 09:00 07/22/16 18:15 (Elavil) 50 mg HS PO 07/16/16 21:00 Hold 07/21/16 19:33 (Ecotrin Ec) 81 mg DAILY PO 07/16/16 09:00 07/22/16 08:28 (Lipitor) 80 mg HS PO 07/16/16 21:00 07/22/16 19:50 (Coreg) 25 mg BID PO 07/16/16 09:00 07/22/16 19:50 (Ferrous Sulfate) 325 mg BID PO 07/16/16 09:00 07/22/16 19:50 (Apresoline) 50 mg TID PO 07/16/16 09:00 07/22/16 18:15 (Albumin 25% Inj) 25 gm BID@ IV 07/16/16 17:00 07/23/16 09:27 (Prinivil) 20 mg DAILY PO 07/17/16 09:00 07/22/16 08:29 ([place] 5-325 Mg) 1 tab Q6H PRN PO 07/16/16 23:30 07/23/16 04:39 (Zofran Inj) 4 mg Q6HR PRN IV PUSH 07/18/16 06:00 07/18/16 05:57 (NS Flush) 2 ml UNSCH PRN IVF 07/18/16 13:45 (NS Flush) 2 ml BID IVF 07/18/16 21:00 07/22/16 19:50 (Peridex 0.12% Liq) 15 ml BID@08,20 MT 07/18/16 20:00 07/21/16 19:33 (Protonix Inj) 40 mg DAILY IV 07/19/16 09:00 07/23/16 09:28 Miscellaneous Information 1 Q361D XX 07/18/16 13:45 07/18/16 13:45 (Chlorhexidine 2% Cloth) 3 pack Taper DAILY@04 TOP 07/19/16 04:00 07/15/17 03:59 07/22/16 04:32 Chlorhexidine Gluconate 3 pack 3 pack UNSCH PRN TOP 07/18/16 13:45 (NS 1000 ml Inj) 1,000 ml @ 0 mls/hr Q0M PRN IV 07/19/16 12:15 Heparin Sodium (Porcine) 8000 units 8,000 units UNSCH PRN IVF 07/19/16 12:15 (NS 1000 ml Inj) 1,000 ml @ 0 mls/hr Q0M PRN IV 07/19/16 12:15 (Mannitol Inj) 12.5 gm UNSCH PRN IV 07/19/16 12:15 (Albumin 25% Inj) 25 gm UNSCH PRN IV 07/19/16 12:15 (NS Flush) 5 ml UNSCH PRN IVF 07/19/16 12:15 (Heparin Inj) UNSCH PRN .XX 07/19/16 12:15 (Gentamicin (Dialysis) Inj) 20 mg UNSCH PRN IV 07/19/16 12:15 (Zofran Inj) 4 mg UNSCH PRN IV 07/19/16 12:15 (Tylenol) 650 mg UNSCH PRN PO 07/19/16 12:15 07/20/16 20:41 (Benadryl) 25 mg UNSCH PRN PO 07/19/16 12:15 (Nitrostat Sl) 0.4 mg UNSCH PRN SL 07/19/16 12:15 (Catapres) 0.1 mg UNSCH PRN PO 07/19/16 12:15 07/22/16 03:11 (Epogen Inj) 4,000 units UNSCH PRN IV 07/19/16 12:15 (Gelfoam 12 Mm/7 Mm Top) 1 foam UNSCH PRN TOP 07/19/16 12:15 (Heparin Inj) 5,000 units Q12HR SQ 07/20/16 21:00 07/22/16 19:49 (D50w (Vial) Inj) 25 ml UNSCH PRN IV PUSH 07/20/16 09:45 (Glucagon Inj) 1 mg UNSCH PRN OTHER 07/20/16 09:45 Insulin Human Regular 1 1 Q6H SQ 07/20/16 11:00 (Rocephin Inj/NS Inj) 100 ml @ 200 mls/hr Q24H IV 07/21/16 09:00 07/22/16 08:28 (Neurontin) 300 mg DAILY PO 07/22/16 09:00 07/22/16 08:29 (Trandate Inj) 10 mg Q4H PRN IV PUSH 07/22/16 04:45 07/22/16 05:04 (Apresoline Inj) 10 mg Q4H PRN IV PUSH 07/22/16 05:30 07/22/16 19:50 (Procardia) 10 mg Q8HR PO 07/22/16 09:00 07/23/16 04:40 (Mycostatin Powder) 1 applic Q12HR PRN TOPICAL 07/22/16 16:00 (Zyvox) 600 mg Q12H PO 07/22/16 15:00 07/23/16 03:52 Vital Signs / I&O Vital Signs Date Time Temp Pulse Resp B/P Pulse Ox O2 Delivery O2 Flow Rate FiO2 07/23/16 09:22 97 40 07/23/16 08:19 93 Nasal Cannula 5.00 07/23/16 08:00 97.9 74 20 164/86 93 07/23/16 04:00 99.3 73 24 172/81 91 07/23/16 03:41 94 40 07/23/16 03:39 94 BiPAP 40 07/23/16 00:29 94 40 07/23/16 00:00 98.5 76 20 132/68 88 07/22/16 22:00 Nasal Cannula 4.00 07/22/16 21:13 76 07/22/16 20:32 92 Nasal Cannula 4.00 07/22/16 20:22 98.7 76 22 149/79 90 07/22/16 18:00 72 07/22/16 16:00 69 07/22/16 16:00 97.5 69 17 165/70 96 07/22/16 14:00 67 07/22/16 12:00 66 07/22/16 12:00 98.1 66 16 150/61 90 07/22/16 11:00 89 Nasal Cannula 5.00 07/22/16 10:00 70 I/O 07/22/16 07/22/16 07/22/16 07/23/16 07/23/16 07/23/16 07:00 15:00 23:00 07:00 15:00 23:00 Intake Total 495 ml 340 ml 720 ml Output Total 450 ml 375 ml 400 ml Balance 45 ml -35 ml 320 ml Intake Oral 480 ml 240 ml 720 ml IV Total 15 ml Albumin 100 ml Output Urine Total 450 ml 375 ml 400 ml # Bowel Movements 0 0 0 Physical Exam GENERAL: NAD, on bipap SKIN: Warm and dry. HEAD: Atraumatic. Normocephalic. EYES: Pupils equal and round. No scleral icterus. No injection or drainage. ENT: No nasal bleeding or discharge. Mucous membranes pink and moist. NECK: Trachea midline. No JVD. CARDIOVASCULAR: Regular rate and rhythm. RESPIRATORY: No accessory muscle use. Decreased breath sounds bilaterally GASTROINTESTINAL: Abdomen soft, non-tender, nondistended. Hepatic and splenic margins not palpable. MUSCULOSKELETAL: 2+ pitting edema bilaterally NEUROLOGICAL: Awake and alert. No obvious cranial nerve deficits. Moving all extremities PSYCHIATRIC: Appropriate mood and affect; insight and judgment normal. Laboratory Laboratory Tests Test 07/23/16 05:51 White Blood Count 5.1 TH/MM3 Red Blood Count 3.95 MIL/MM3 Hemoglobin 8.8 GM/DL Hematocrit 28.2 % Mean Corpuscular Volume 71.5 FL Mean Corpuscular Hemoglobin 22.3 PG Mean Corpuscular Hemoglobin 31.2 % Concent Red Cell Distribution Width 18.6 % Platelet Count 172 TH/MM3 Mean Platelet Volume 9.7 FL Neutrophils (%) (Auto) 61.5 % Lymphocytes (%) (Auto) 18.2 % Monocytes (%) (Auto) 12.8 % Eosinophils (%) (Auto) 6.5 % Basophils (%) (Auto) 1.0 % Neutrophils # (Auto) 3.1 TH/MM3 Lymphocytes # (Auto) 0.9 TH/MM3 Monocytes # (Auto) 0.7 TH/MM3 Eosinophils # (Auto) 0.3 TH/MM3 Basophils # (Auto) 0.0 TH/MM3 CBC Comment AUTO DIFF Differential Comment AUTO DIFF CONFIRMED Ovalocytes 1+ Sodium Level 140 MEQ/L Potassium Level 4.0 MEQ/L Chloride Level 106 MEQ/L Carbon Dioxide Level 25.1 MEQ/L Anion Gap 9 MEQ/L Blood Urea Nitrogen 45 MG/DL Creatinine 3.40 MG/DL Estimat Glomerular Filtration 14 ML/MIN Rate Random Glucose 131 MG/DL Calcium Level 7.8 MG/DL Assessment and Plan Problem List: (1) Acute exacerbation of CHF (congestive heart failure) (2) Stage 4 chronic kidney disease (3) HTN (hypertension) (4) Diabetes (5) Elevated troponin (6) Stented coronary artery (7) Respiratory failure Assessment and Plan 1) Admitted with increased edema and SOB, denies CP... ran out of diuretic at home for 2 weeks, unable to get in to see primary doctor (needs a new one) 2) Continue gentle diuresis as possible 3) Minimally elevated troponin, most likely due to fluid overloaded state, HTN episode, CKD... previous stress test showing mild small lateral wall defect, offered diagnostic cath with a plan for staged intervention if needed, wants to continue medical management 4) Not started on dialysis due to resp distress/arrest requiring intubation during Vascath placement, creatinine stabilizing 5) Still quite hypertensive on multiple medications, snoring every time I enter the room, should be worked up for PALMER 6) Norvasc changed to Procardia for HTN Problem Qualifiers (1) Acute exacerbation of CHF (congestive heart failure): Qualified Code: I50.9 - Acute on chronic congestive heart failure, unspecified congestive heart failure type (2) HTN (hypertension): Qualified Code: I10 - Essential hypertension (3) Diabetes: (4) Respiratory failure: Juancho Choudhury DO Jul 23, 2016 09:54
[2016-07-23] MEDS: ASPIRIN EC 81 MG TABEC PO SCH (10:27)
[2016-07-23] MEDS: CARVEDILOL 12.5 MG TAB PO SCH ×2 (10:27→21:00)
[2016-07-23] MEDS: LISINOPRIL 20 MG TAB PO SCH (10:27)
[2016-07-23] MEDS: GABAPENTIN 300 MG CAP PO SCH (10:27)
[2016-07-23] MEDS: FERROUS SULFATE 325 MG (65 MG ELEMENTAL IRON) TAB PO SCH ×2 (10:27→21:00)
[2016-07-23] MEDS: BUMETANIDE INJ 1 MG/4 ML VIAL IV PUSH SCH ×2 (10:28→18:00)
[2016-07-23] MEDS: hydrALAZINE HCL 50 MG TAB PO SCH ×3 (10:28→18:00)
[2016-07-23] MEDS: HEPARIN SODIUM - SQ 10,000 UNITS/ML VIAL SQ SCH ×2 (10:32→21:00)
[2016-07-23] MEDS ORDERED: ATROPINE SULFATE 1 MG/10 ML SYRINGE IV ONE (12:07)
[2016-07-23] MEDS ORDERED: SODIUM BICARBONATE 8.4% INJ 50 MEQ/50 ML SYR IV ONE (12:08)
[2016-07-23] MEDS ORDERED: EPINEPHrine HCL (1:10,000) 1 MG/10 ML SYRINGE IV ONE (12:09)
[2016-07-23] MEDS ORDERED: SODIUM CHLORIDE 0.9% 20 ML VIAL IV ONE (12:10)
--- NOTE | 2016-07-23 13:08 | RADRPT ---
EXAM DATE/TIME: 07/23/2016 12:26 [facility] COMPARISON: CHEST SINGLE AP, July 19, 2016, 18:38. INDICATIONS : Shortness of breath. MEDICAL HISTORY : Hypertension. SURGICAL HISTORY : Coronary artery stent. ENCOUNTER: Subsequent ACUITY: 1 week PAIN SCORE: 0/10 LOCATION: Bilateral chest FINDINGS: A single AP semierect view of the chest was obtained and demonstrates interval removal of the endotra cheal tube and nasogastric tube. Hazy alveolar opacities remain in both lungs greatest in the perihil ar regions and both lung bases. The right costophrenic angle appears blunted. The heart size remains prominent. The studies Midinspiratory with overlying electrocardiogram leads. CONCLUSION: 1. No extubation and removal of nasogastric tube. 2. Alveolar opacities remain in both lungs. 3. Right costophrenic angle appears blunted. Grady Hale MD on July 23, 2016 at 13:05 Board Certified Radiologist. This report was verified electronically.
[2016-07-23] MEDS: NIFEdipine 20 MG CAP PO SCH ×2 (13:50→22:00)
--- NOTE | 2016-07-23 15:56 | HHI.PR ---
Subjective Remarks I was notified by the nurse this morning the patient fell. No injuries reported. 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 She denies any injuries. She became short of breath after the fall. She was on BiPAP and the tubing came off. Currently she reports that her breathing is okay. She reports feeling tired. No chest pain. Urine output is less today. Renal function slightly worse. Objective Vitals Vital Signs Date Time Temp Pulse Resp B/P Pulse Ox O2 Delivery O2 Flow Rate FiO2 07/23/16 12:00 97.8 73 20 165/84 96 07/23/16 11:00 93 40 07/23/16 09:22 97 40 07/23/16 08:19 93 Nasal Cannula 5.00 07/23/16 08:02 73 07/23/16 08:00 97.9 74 20 164/86 93 07/23/16 07:15 Nasal Cannula 4.00 40 07/23/16 04:00 99.3 73 24 172/81 91 07/23/16 03:41 94 40 07/23/16 03:39 94 BiPAP 40 07/23/16 00:29 94 40 07/23/16 00:00 98.5 76 20 132/68 88 07/22/16 22:00 Nasal Cannula 4.00 07/22/16 21:13 76 07/22/16 20:32 92 Nasal Cannula 4.00 07/22/16 20:22 98.7 76 22 149/79 90 07/22/16 18:00 72 07/22/16 16:00 69 07/22/16 16:00 97.5 69 17 165/70 96 I/O 07/22/16 07/22/16 07/22/16 07/23/16 07/23/16 07/23/16 07:00 15:00 23:00 07:00 15:00 23:00 Intake Total 495 ml 340 ml 720 ml Output Total 450 ml 375 ml 400 ml Balance 45 ml -35 ml 320 ml Intake Oral 480 ml 240 ml 720 ml IV Total 15 ml Albumin 100 ml Output Urine Total 450 ml 375 ml 400 ml # Bowel Movements 0 0 0 Result Diagram: 07/23/16 0551 07/23/16 0551 Imaging Last Impressions Chest X-Ray 07/23/16 0000 Signed Impressions: Service Date/Time: Saturday, July 23, 2016 12:26 - CONCLUSION: 1. No extubation and removal of nasogastric tube. 2. Alveolar opacities remain in both lungs. 3. Right costophrenic angle appears blunted. Grady Hale MD Consultation 07/19/16 0000 Signed Impressions: Service Date/Time: Tuesday, July 19, 2016 00:00 - CONCLUSION: Procedure not performed secondary to cardiopulmonary arrest. Emre Daniel MD Head CT 07/18/16 1237 Signed Impressions: Service Date/Time: July 12:43 - CONCLUSION: 1. No evidence of acute intracranial pathology. No masses are identified. Emre Daniel MD Brain MRI 07/18/16 0000 Signed Impressions: Service Date/Time: July 17:15 - CONCLUSION: White matter hyperintensities prominent for age indicating possible demyelinating disorder. No evidence of acute infarct. Eliezer Shay MD Abdomen X-Ray 07/18/16 0000 Signed Impressions: Service Date/Time: July 15:39 - CONCLUSION: No evidence of obstruction. No MRI incompatible foreign body is identified. Eliezer Shay MD Objective Remarks GENERAL: Morbidly obese female, on BiPAP. Able to talk. CARDIOVASCULAR: Normal rate and regular rhythm without murmurs, gallops, or rubs. RESPIRATORY: Some diffuse rhonchi. Otherwise diminished breath sounds bilaterally at the bases. No wheezing. GASTROINTESTINAL: Abdomen soft, non-tender, non-distended. Normal active bowel sounds MUSCULOSKELETAL: Extremities without cyanosis, or edema. NEURO: Alert & Oriented. Moves all ext x4. Normal speech PSYCH: Appropriate mood and affect. A/P Problem List: (1) Acute exacerbation of CHF (congestive heart failure) ICD Code: I50.9 Status: Acute (2) Elevated troponin ICD Code: R79.89 Status: Acute (3) HTN (hypertension) ICD Code: I10 Status: Chronic (4) Diabetes ICD Code: E11.9 Status: Chronic Assessment and Plan 50 y/o female with a medical history significant for history of CHF, depression , HTN, dm, and ckd presented to the ED on 07/15 with complaints of dyspnea, swelling in her lower extremities and a 50lb weight gain since last admission . Acute respiratory failure: Likely a combination of kidney disease, diastolic heart failure, possible COPD, MRSA in the sputum with probable pneumonia. Patient has been intubated twice so far during this hospitalization. Currently on BiPAP. - Continue BiPAP and breathing treatments. Patient is at risk for further respiratory decompensation. - Consult pulmonology for assistance. Repeat chest x-ray today. - Continue Zyvox. DC Rocephin. Acute on chronic kidney disease: - Appreciate nephrology following. Appear to be worsening diabetic nephropathy. Currently not on dialysis yet. - Continue to monitor renal function and urine output. Worse today. Continue Bumex - Further plan per nephrology. Elevated troponins: - Patient previously offered heart catheterization but she refused. Continue current medical management. Appreciate cardiology following. Antihypertensives being titrated. Norvasc changed to nifedipine. Continue with ASA, Lipitor daily. On Coreg 25mg BID, Lisinopril 20mg daily, Hydralazine 50mg TID. Diabetes mellitus: - Continue sliding scale insulin with Accu-Chek GI prophylaxis: Stool softener PRN constipation. DVT PPx: SCDs Problem Qualifiers (1) Acute exacerbation of CHF (congestive heart failure): Qualified Code: I50.9 - Acute on chronic congestive heart failure, unspecified congestive heart failure type (2) HTN (hypertension): Qualified Code: I10 - Essential hypertension (3) Diabetes: Carey Coombs MD Jul 23, 2016 15:56 Endocrine: SSI for glycemic control as needed Heme:Monitor CBC. On FeSO4 325mg BID Problem Qualifiers (1) Acute exacerbation of CHF (congestive heart failure): Qualified Code: I50.9 - Acute on chronic congestive heart failure, unspecified congestive heart failure type (2) HTN (hypertension): Qualified Code: I10 - Essential hypertension (3) Diabetes: Carey Coombs MD Jul 23, 2016 15:56
--- NOTE | 2016-07-23 16:39 | HHI.NPPN ---
Subjective History of Present Illness 50 year old with CKD 4/5 Diabetes Nephrotic range proteinuria Additional Remarks Patient is alert, feeling weak and tired, not eating well, has nausea. Review of Systems General Constitutional: Fatigue Cardiovascular Cardiac: Edema Objective Data Data 07/22/16 07/23/16 19:00 07:00 Intake Total 340 ml 720 ml Output Total 375 ml 400 ml Balance -35 ml 320 ml Intake Oral 240 ml 720 ml Albumin 100 ml Output Urine Total 375 ml 400 ml # Bowel Movements 0 0 Vital Signs Date Time Temp Pulse Resp B/P Pulse Ox O2 Delivery O2 Flow Rate FiO2 07/23/16 12:00 97.8 73 20 165/84 96 07/23/16 11:00 93 40 07/23/16 09:22 97 40 07/23/16 08:19 93 Nasal Cannula 5.00 07/23/16 08:02 73 07/23/16 08:00 97.9 74 20 164/86 93 07/23/16 07:15 Nasal Cannula 4.00 40 07/23/16 04:00 99.3 73 24 172/81 91 07/23/16 03:41 94 40 07/23/16 03:39 94 BiPAP 40 07/23/16 00:29 94 40 07/23/16 00:00 98.5 76 20 132/68 88 07/22/16 22:00 Nasal Cannula 4.00 07/22/16 21:13 76 07/22/16 20:32 92 Nasal Cannula 4.00 07/22/16 20:22 98.7 76 22 149/79 90 07/22/16 18:00 72 -: 07/23/16 0551 07/23/16 0551 Physical Exam General Appearance: No Acute Distress, Comfortable, Obese Throat Throat Exam: Oral Mucosa Ganister & Moist Neck Neck Exam: Neck Supple Pulmonary Resp Exam: Crackles, Rhonchi, Decreased Bases, Diminished Breath Sounds Cardiology CV Exam: Regular, Normal Sinus Rhythm Gastrointestinal/Abdomen GI Exam: Soft, Distended Extremeties Extremities Exam: Pitting Edema, Dependent Edema Neurologic Neuro Exam: Alert, Awake, Sedated Psychiatric Psych Exam: Appropriate Responses Assessment/Plan Problem List: (1) Stage 4 chronic kidney disease Plan: Patient with advanced kidney disease and had the workup in May. including MATEUS/SPEP Neg Nephrotic proteinuria 10 grams - likely DM nephropathy Urine out put increased, Creatinine increased slightly. Most likely has advance Diabetic Nephropathy. If no improvement in renal function, will consider starting HD. D/W the patient in detail. (2) Nephrotic syndrome Plan: Protein to creatinine ratio above 10 10.52 (3) Acute exacerbation of CHF (congestive heart failure) Plan: This is likely due to chronic kidney disease and diastolic dysfunction (4) Diabetes Plan: Advance manifestations diabetic nephropathy, retinopathy and neuropathy (5) HTN (hypertension) Plan: Continue to monitor (6) Respiratory failure Problem Qualifiers (1) Acute exacerbation of CHF (congestive heart failure): Qualified Code: I50.9 - Acute on chronic congestive heart failure, unspecified congestive heart failure type (2) Diabetes: (3) HTN (hypertension): Qualified Code: I10 - Essential hypertension (4) Respiratory failure: Mia Medley MD Jul 23, 2016 16:39
--- NOTE | 2016-07-23 19:17 | HHI.PR ---
Addendum to Inpatient Note Addendum Reason: Additional Documentation Additional Information CODE BLUE: Residents responded to code blue page. Upon arrival, patient was receiving ACLS being ran by adult daycare coordinator, Dr Vaz. dw MD Bigg Lund Jonathan MD R3 Jul 23, 2016 19:17
--- NOTE | 2016-07-23 19:23 | PD.PROCEDR ---
Procedure Note Procedure DATE: 07/23/16 PROCEDURE: Orotracheal intubation INDICATION: And respiratory failure/CODE BLUE DETAILS OF PROCEDURE The patient was placed in optimal position and preoxygenated with 100% FiO2 via bag valve mask. At the start oxygen saturation was unknown and code. The patient was not administered education. I entered the oropharynx with a size 4 Radah laryngoscope blade and obtained a grade 3 view of the airway. On single attempt a size 8.0 cuffed endotracheal tube was passed through the vocal cords. Correct tube location was confirmed with end tidal CO2 detector and by auscultating over bilateral lung reynoso. The endotracheal tube was secured with adhesive tape at a depth of 23 cm at the lips. The patient was connected to the ventilator. The patient tolerated the procedure well without any apparent complications. Oxygen saturations are currently 90%. STAT chest x-ray pending at time of dictation. Natanael Mckeon MD Jul 23, 2016 19:23
[2016-07-23] MEDS ORDERED: fentaNYL DRIP 250 ML IV SCH (19:30)
[2016-07-23] MEDS ORDERED: SODIUM CHLORIDE 0.9% FLUSH 5 ML FLUSH IVF PRN (20:00)
--- NOTE | 2016-07-23 20:05 | PD.PROCEDR ---
Central Line Procedure REASON FOR PROCEDURE Central venous access PROCEDURE PERFORMED Central line placement: Left internal jugular vein CONSENT Informed consent for procedure not obtain an extended emergent due to no IV access. The risks and benefits of the procedure were discussed to include but limited to bleeding, clot formation, infection, and even . ANESTHESIA Local injection of 1% Lidocaine DESCRIPTION OF THE PROCEDURE The patient was placed in supine, mild Trendelenburg position. The area was exposed and cleansed with ChloraPrep, times two. Large sterile drape was used to cover the patient, with the site exposed, under sterile conditions including cap, face mask, sterile gown, and sterile gloves. On single attempt, the introducer needle was inserted with negative pressure in syringe and venous flash was obtained. The guide wire was then advanced without any restriction and the needle was removed. The dilator was used without any complications. Using Seldinger technique the triple-lumen catheter was advanced over the guide wire to a depth of 20 centimeters. The guide wire was removed. All ports were aspirated with dark venous blood return and flushed easily with sterile saline. All ports were capped. Antibiotic disc was placed around central line at puncture site. The central line was secured to the skin with two interrupted 2.0 silk sutures. The area was bandaged with sterile see-through central line bandage. RADIOLOGICAL DATA Ultrasound guidance was used to locate left internal jugular vein. Doppler/ color flow was used to confirm venous flow. COMPLICATIONS: No apparent complications ESTIMATED BLOOD LOSS: Less than 1 cc. Natanael Mckeon MD Jul 23, 2016 20:04
--- NOTE | 2016-07-23 20:15 | PD.PROCEDR ---
Procedure Note Procedure CODE BLUE note Noted transportation technician initiation code at 1909 hrs. Patient was bagged with Ambu bag and chest compressions were initiated. IV Fluids were wide open. Receive 1 mg epinephrine 1 ampule of sodium bicarbonate. Chest pressure performed. Patient was intubated with an 8.0. ET tube at 1914. ROSC at that time. Natanael Mckeon MD Jul 23, 2016 20:14
--- NOTE | 2016-07-23 20:21 | HHI.CCPN ---
Subjective Remarks/Hospital Course 07/18: 50 y/o female with a history of chf, depression, htn, dm, and ckd presented to the ED on 07/15 with complaints of dyspnea, swelling in her lower extremities and a 50lb weight gain since last admission 06/03/16. Patient had gained 50 lbs in fluid from last admission. She presented with increased shortness of breath with intermittent chest pressure with no radiation or associated symptoms. She was admitted on 05/31/16 and diagnosed with CHF, discharged home on on Bumex. Patient states she recently ran out of meds and has not followed up with a doctor due to transportation issues. She is not from here and her pcp is 2 hours away and she does not want her kids to take off work to take her to appointments. She is hoping to move back in 2 weeks or so. She states she tried to call a rv servicer to follow up but they required her records and she did not get them. Despite taking Bumex she states she has not had an increase in urination. Last admission 2d echo showed systolic dysfunction with EF 50%, she was seen by DR. Choudhury, and DR. Medley. Patient was admitted by hospitalist service. She was evaluated by Dr. Choudhury from cardiology who offered cardiac catheterization as patient did have an elevated troponin and previous abnormal stress test however she was concerned regarding ending up on hemodialysis so she refused. Patient was reportedly on nasal cannula earlier today however around 1:30 PM was noted to be lethargic and minimally responsive. Stroke alert was called. Head CT was negative for bleed. Recent had an ABG done which revealed pH of 7.0/PCO2 87/PO2 49. Critical care service was contacted by Dr. Mckeon. Both myself and Dr. Ott arrived at bedside. Patient was encephalopathic though arousable with painful stimuli occasional morning however not following commands. Her fingerstick glucose was in the 140s earlier. Decision was made to proceed with endotracheal intubation which was performed by Dr. Goff. A stat MRI brain was ordered to evaluate for CVA after discussion with Dr. Estes. 07/19: Awakens easily off sedation following commands this morning. On mechanical ventilation. MRI brain done yesterday did not show any acute event. 07/20 Patient was extubated yesterday went to IR for vascath placement and had resp arrest she was subsequently reintubated. Now sedated with Diprivan. Afebrile. MRI brain showed no evidence of acute infract. 07/21 Patient s/p extubation yesterday was given racemic Decadron 4mg IV x1 and racemic epi for ? stridor overnight placed on BIPAP 03/20 with 40% FIO2. ABG on BIPAP shows improvements in her resp acidosis with PH 7.30 and CO2: 48 from 57. Now of BIPAP and is on 6L oxygen. 07/22 No acute events overnight. Patient is on 4L oxygen with good sats. Afebrile. renal function improving with Cr: 3.22 and UO: 2850ml in 24 hrs Subjective 07/23 - CODE BLUE call today secondary to unresponsiveness. According to RN, patient received [place] at 5 PM. Not seen. Upon evaluation by RN patient was not breathing on nasal cannula. Received 1 mg of epinephrine and one ampule sodium bicarbonate. Intubated with 8.0 ET tube. ROSC after around 10 minutes. Transferred ISC. Occasionally taking large breaths otherwise unresponsive on the ventilator Objective Vital Signs Date Time Temp Pulse Resp B/P Pulse Ox O2 Delivery O2 Flow Rate FiO2 07/23/16 19:20 94 100 07/23/16 19:10 15.00 07/23/16 16:00 97.4 65 18 107/59 07/23/16 08:19 Nasal Cannula Intake and Output 07/22/16 07/22/16 07/23/16 08:00 16:00 00:00 Intake Total 495 ml 340 ml Output Total 450 ml 375 ml Balance 45 ml -35 ml Result Diagram: 07/23/16 0551 07/23/16 0551 Other Results Microbiology Date/Time Procedure Status Source Growth 07/20/16 16:15 Gram Stain - Final Complete Sputum Endotracheal 07/20/16 16:15 Sputum Culture - Final Complete S. Aureus Mrsa 07/20/16 16:11 Urine Culture - Final Complete Urine Catheterized Urine NO GROWTH IN 48 HOURS. Imaging Last Impressions Chest X-Ray 07/23/16 0000 Signed Impressions: Service Date/Time: Saturday, July 23, 2016 12:26 - CONCLUSION: 1. No extubation and removal of nasogastric tube. 2. Alveolar opacities remain in both lungs. 3. Right costophrenic angle appears blunted. Grady Hale MD Consultation 07/19/16 0000 Signed Impressions: Service Date/Time: Tuesday, July 19, 2016 00:00 - CONCLUSION: Procedure not performed secondary to cardiopulmonary arrest. Emre Daniel MD Head CT 07/18/16 1237 Signed Impressions: Service Date/Time: July 12:43 - CONCLUSION: 1. No evidence of acute intracranial pathology. No masses are identified. Emre Daniel MD Brain MRI 07/18/16 0000 Signed Impressions: Service Date/Time: July 17:15 - CONCLUSION: White matter hyperintensities prominent for age indicating possible demyelinating disorder. No evidence of acute infarct. Eliezer Shay MD Abdomen X-Ray 07/18/16 0000 Signed Impressions: Service Date/Time: July 15:39 - CONCLUSION: No evidence of obstruction. No MRI incompatible foreign body is identified. Eliezer Shay MD Objective Remarks GENERAL: 50-year-old female, critically ill currently orotracheally intubated SKIN: Warm and dry. No rash HEAD: Normocephalic. EYES: No scleral icterus. No injection or drainage. NECK: Supple, trachea midline. No JVD or lymphadenopathy. CARDIOVASCULAR: RRR. S1, S2. No S4. Without murmur RESPIRATORY: Diminished due to body habitus. Breath sounds equal bilaterally. No accessory muscle use. GASTROINTESTINAL: Abdomen soft, obese. Hypoactive bowel sounds MUSCULOSKELETAL: With nonpitting peripheral edema. Neuro: Positive gag. Positive corneal reflex. Currently not withdrawing to noxious stimuli pain. Upgoing toes. Urinary Catheter: Yes Assessment to: Continue Calderon insert reason: Prolonged Immobilization Vascular Central Line Catheter: Yes Assessment to: Continue Date of Insertion: Jul 23, 2016 Line: Central Venous Catheter Side: Left Location: Internal, Jugular A/P Assessment and Plan Neuro/Psych: Toxic metabolic encephalopathy/history CO2 retention History of depression Peripheral neuropathy Plan CT head tonight rule out CVA Propofol/fentanyl for sedation/analgesia while intubated Goal of RASS -2 Daily sedation vacation Acetaminophen for fever Follow-up ABG Baby aspirin 81 mg for now Holding Neurontin 300 mg 3 times a day/neuropathy medication Holding Elavil 50 mg at night for depression. CV: Hypertension CHF - diastolic Non-STEMI Continue on normal saline at 84 cc an hour. Echocardiogram 05/21 revealed EF 50%. Mildly dilated ventricle. Diffuse hypokinesis. Follow-up limited echocardiogram ordered Currently on Coreg 25 twice a day, hydralazine 50 3 times a day a day, lisinopril 20 daily nifedipine 20 every 8 hours hypertension. At home on Norvasc 10 mg daily. This is been on hold while on nifedipine Continue atorvastatin 80 mg daily's for dyslipidemia. Followed by cardiology. They believe troponin likely due to fluid overloaded state, HTN episode, CKD... previous stress test showing mild small lateral wall defect, offered diagnostic cath with a plan for staged intervention if needed Resp: Acute hypoxemic respiratory failure [facility] 16/550/5/40 Ventilator bundle Bronchodilator therapy every 4 hours and as needed Follow chest x-ray/ABG post intubation Clinically pickwickian/[facility] On intermittent home oxygen at home GI: Patient is currently nothing by mouth Protonix for GI prophylaxis Colace/as needed Senokot for bowel regimen : Calderon will be placed for accurate I's and output in critically ill patient Endo: Diabetes mellitus At home, patient is on Lantus 40 units daily and lispro 12 units twice a day. This is been held. Hold glipizide 2.5 mill grams daily. Sliding-scale insulin with Accu checks every 6 hours to maintain euglycemia. Last blood sugar 178 Renal: Acute on chronic kidney injury Nephrotic syndrome Followed by nephrology. No indication for current hemodialysis Tenuous Bumex to 1 mg IV twice a day. Gentle diuresis Greater than 10 g protein on urine studies. Likely accommodation of hypertension/diabetes. Heme: Anemia Currently on iron sulfate 325 by mouth twice a day/home medication. Follow-up post code CBC/coags ID: MRSA pneumonia Pertinent cultures 2/ - sputum - MRSA Previously and Rocephin. Switch to Zyvox today. We'll hold with tricyclic use. Switch to cefepime/clindamycin day #1. Infectious disease consult for antibiotic management. Repeat blood cultures 2, sputum and urine now MSK: Morbid obesity Osteoporosis Holding Drisdol 50,000 units every Friday. Weight loss encouraged FEN: Replace electrolyte as clinically indicated Access - Left IJ CVL day 1 Prophylaxis - GI - Protonix - DVT - SCD/heparin Critical Care: The total critical care time was 55 minutes. Time to perform other separately billable procedures was not included in the critical care time. Plan: Neuro: Awake and alert. Monitor neuro status and avoid sedatives, Continue aspirin. 07/18 MRI brain: White matter hyperintensities prominent for age indicating possible demyelinating disorder. No evidence of acute infarct. 07/18 CT brain: No acute infarct 07/19 EEG: Mild- mod encephalopathy Neuro is following CV: Monitor HR and BP keep MAP>65mmHg. Patient declined cardiac catheterization on 07/18 due to concern that she may end up on hemodialysis Cards- Dr. Choudhury. Continue with ASA, Lipitor daily. On Coreg 25mg BID, Lisinopril 20mg daily, Hydralazine 50mg TID, Procardia 10mg Q8 Pulmo: Continue with vent support keep sat >92% Bronchodilators, ICU vent bundle. GI/liver: Speech eval, diet per speech Renal/: Monitor renal function, I/O's, avoid nephrotoxins Renal- Dr. Garcia, On Bumex 1mg BID Renal function slowly improving with Cr: 3.22 today and UO 2850ml in 24 hrs ID: Continue Rocephin,add Zyvox 600mg Q12, monitor for signs of infections ( Fever, WBC) follow up on urine cx 07/20 sputum cx: MRSA Endocrine: SSI for glycemic control as needed Heme:Monitor CBC. On FeSO4 325mg BID Prophylaxis: PPI/SCDs/Heparin SQ Natanael Mckeon MD Jul 23, 2016 20:21
--- NOTE | 2016-07-23 20:38 | RADRPT ---
EXAM DATE/TIME: 07/23/2016 19:32 [facility] COMPARISON: CHEST SINGLE AP, July 23, 2016, 12:26. INDICATIONS : Post intubation. MEDICAL HISTORY : Hypertension. SURGICAL HISTORY : Coronary artery stent. ENCOUNTER: Subsequent ACUITY: 1 week PAIN SCORE: Non-responsive. LOCATION: Bilateral chest FINDINGS: A single view of the chest demonstrates endotracheal tube in satisfactory position. Bilateral mostly basilar airspace disease stable to slightly improved from July 23. No pneumothorax. CONCLUSION: 1. Bilateral mostly basilar airspace consolidation. Endotracheal tube in satisfactory position. No pn eumothorax. George Choi MD on July 23, 2016 at 20:35 Board Certified Radiologist. This report was verified electronically.
[2016-07-23] MEDS: SODIUM CHLOR 0.9% 1000 ML INJ 1,000 ML IV SCH (20:45)
[2016-07-23] MEDS: MUPIROCIN 2% OINT 1 APPLIC/GM SYR EACH NARE SCH (21:00)
[2016-07-23] MEDS: ATORVASTATIN 80 MG TAB PO SCH (21:00)
--- NOTE | 2016-07-23 21:13 | RADRPT ---
EXAM DATE/TIME: 07/23/2016 20:11 [facility] COMPARISON: CHEST SINGLE AP, July 23, 2016, 19:32. INDICATIONS : Post central line placement. MEDICAL HISTORY : Hypertension. SURGICAL HISTORY : Coronary artery stent. ENCOUNTER: Subsequent ACUITY: 1 week PAIN SCORE: Non-responsive. LOCATION: Bilateral chest FINDINGS: A single view of the chest demonstrates endotracheal tube in satisfactory position. Left central line in superior vena cava. Bilateral airspace disease especially perihilar and basilar. Probable small e ffusions. CONCLUSION: 1. Left IJ line tip in superior vena cava without pneumothorax. George Choi MD on July 23, 2016 at 21:10 Board Certified Radiologist. This report was verified electronically.
--- NOTE | 2016-07-23 21:27 | RADRPT ---
EXAM DATE/TIME: 07/23/2016 20:54 [facility] COMPARISON: CT BRAIN W/O CONTRAST, July 18, 2016, 12:43. INDICATIONS : Altered mental status. RADIATION DOSE: 56.35 CTDIvol (mGy) MEDICAL HISTORY : Congestive hearrt failure. Hypertension. Renal failure, chronic. SURGICAL HISTORY : None. ENCOUNTER: Initial ACUITY: 1 day PAIN SCALE: Non-responsive LOCATION: cranial TECHNIQUE: Multiple contiguous axial images were obtained of the head. Using automated exposure control and adj ustment of the mA and/or kV according to patient size, radiation dose was kept as low as reasonably a chievable to obtain optimal diagnostic quality images. FINDINGS: CEREBRUM: The ventricles are normal for age. No evidence of midline shift, mass lesion, hemorrhage or acute in farction. No extra-axial fluid collections are seen. POSTERIOR FOSSA: The cerebellum and brainstem are intact. The 4th ventricle is midline. The cerebellopontine angle i s unremarkable. EXTRACRANIAL: The visualized portion of the orbits is intact. SKULL: The calvaria is intact. No evidence of skull fracture. CONCLUSION: Normal examination for a patient of this age. No significant change has occurred. George Choi MD on July 23, 2016 at 21:24 Board Certified Radiologist. This report was verified electronically.
[2016-07-23] MEDS: CEFEPIME INJ 2,000 MG in SODIUM CHLORIDE 0.9% INJ 100 ML IV SCH (22:00)
[2016-07-23 22:18] LABS: AUTOMATED NEUTROPHIL # 6.8 TH/MM3 (1.8-7.7); BASOPHIL % 0.4 % (0.0-2.0); EOSINOPHIL # 0.1 TH/MM3 (0-0.4); EOSINOPHIL % 1.3 % (0.0-4.0); HEMATOCRIT 26.9 % (35.0-46.0); LYMPH % 1.1 % (9.0-44.0); LYMPHOCYTE # 0.1 TH/MM3 (1.0-4.8); MEAN CELL VOLUME 72.4 FL (80.0-100.0); MEAN CORPUSCULAR HEMOGLOBIN 22.9 PG (27.0-34.0); MEAN CORPUSCULAR HGB CONC 31.6 % (32.0-36.0); MONO % 3.4 % (0.0-8.0); NEUT % 93.8 % (16.0-70.0); PLATELET COUNT 161 TH/MM3 (150-450); RED BLOOD COUNT 3.72 MIL/MM3 (4.00-5.30); RED CELL DISTRIBUTION WIDTH 18.6 % (11.6-17.2); WHITE BLOOD COUNT 7.2 TH/MM3 (4.0-11.0)
[2016-07-23 22:21] LABS: HEMO FLAGS AUTO DIFF
[2016-07-23 22:37] LABS: BLOOD GAS BASE EXCESS -3.5 mmol/L (-2-2); BLOOD GAS CARBOXYHEMOGLOBIN 1.1 % (0-4); BLOOD GAS HCO3 23 mmol/L (22-26); BLOOD GAS METHEMOGLOBIN 0.7 % (0-2); BLOOD GAS O2 HGB SATURATION 97 % (90-100); BLOOD GAS OXYGEN CONTENT 12.8 Vol % (12.0-20.0); BLOOD GAS PCO2 54 mmHg (38-42); BLOOD GAS PO2 140 mmHg (61-120); BLOOD GAS TOTAL HGB 9.2 G/DL (12.0-16.0); TEMP CORR TO 98.6
[2016-07-23 22:39] LABS: CRITICAL VALUE YES; OXYGEN DEVICE VENTILATOR
[2016-07-23 22:40] LABS: DRAW SITE RT RADIAL; FIO2 100 %; NUMBER OF ARTERIAL PUNCTURES 1; STAT YES; ULNAR PULSE PRESENT; VENT SETTINGS PRVC/AC
[2016-07-23 22:45] LABS: APTT (PATIENT) 25.5 SEC (24.3-30.1); INTERNATIONAL NORMALIZED RATIO 1.2 RATIO; PROTHROMBIN TIME - PATIENT 13.3 SEC (9.8-11.6)
[2016-07-23 22:49] LABS: PLATELET ESTIMATE SMEAR NORMAL (NORMAL); PLATELET MORPHOLOGY NORMAL (NORMAL)
[2016-07-23 22:50] LABS: SCAN/DIFF AUTO DIFF CONFIRMED
[2016-07-23] MEDS: CLINDAMYCIN INJ 600 MG in SODIUM CHLORIDE 0.9% INJ 100 ML IV SCH (23:00)
[2016-07-23 23:14] LABS: ALKALINE PHOSPHATASE 113 U/L (45-117); ALT (GPT) 14 U/L (10-53); ANION GAP 7 MEQ/L (5-15); AST (GOT) 19 U/L (15-37); BICARBONATE 26.6 MEQ/L (21.0-32.0); BLOOD UREA NITROGEN 46 MG/DL (7-18); CHLORIDE 105 MEQ/L (98-107); CREATINE KINASE 120 U/L (26-192); GLOMERULAR FILTRATION RATE 13 ML/MIN (>89); POTASSIUM 3.7 MEQ/L (3.5-5.1); SODIUM (NA) 139 MEQ/L (136-145); TOTAL BILIRUBIN ADULT 0.5 MG/DL (0.2-1.0)
[2016-07-24] VITALS (12 sets, daily range): BP systolic 166–184; BP diastolic 83–92; PULSE 80–87; RESP 18–28; TEMP 98.8–100.7; O2SAT 97–100
[2016-07-24 00:25] LABS: BACTERIA, URINE OCC /hpf; BLOOD, URINE MOD (NEG); GLUCOSE,URINE 150 mg/dL (NEG); KETONE, URINE NEG (NEG); MUCUS URINE FEW /lpf (OCC); NITRITE,URINE NEG (NEG); RENAL EPITHELIAL CELLS 1 /hpf; SQUAMOUS EPITHELIAL CELL URINE 5 /hpf (0-5); TRANSITIONAL EPI CELLS, URINE <1 /hpf; URINE COLOR YELLOW (YELLW/STRAW)
[2016-07-24 00:27] LABS: COMMENT (UR) CATH-CULTURE IND; CULTURE IF INDICATED CATH CULTURE IND
[2016-07-24] MEDS: PROPOFOL 1000 MG/100 ML INJ 100 ML IV SCH (00:59)
[2016-07-24] MEDS: hydrALAZINE HCL 20 MG/ML VIAL IV PUSH PRN ×4 (01:05→19:40)
[2016-07-24] MEDS: CHLORHEXIDINE GLUCONATE 2 % 1 PACK (2 CLOTHS) TOP SCH (03:30)
[2016-07-24] MEDS: INSULIN NovoLIN REGULAR SUPPLEMENTAL SCALE SQ SCH ×4 (04:08→22:43)
[2016-07-24] MEDS: RESP: ALBUTEROL 2.5 MG/IPRATROPIUM 0.5 MG NEB (SCH) NEB ×5 (04:11→19:36)
[2016-07-24 05:03] LABS: AUTOMATED NEUTROPHIL # 6.5 TH/MM3 (1.8-7.7); BASOPHIL % 0.3 % (0.0-2.0); EOSINOPHIL # 0.1 TH/MM3 (0-0.4); EOSINOPHIL % 0.8 % (0.0-4.0); HEMATOCRIT 29.4 % (35.0-46.0); LYMPH % 2.9 % (9.0-44.0); LYMPHOCYTE # 0.2 TH/MM3 (1.0-4.8); MEAN CELL VOLUME 71.8 FL (80.0-100.0); MEAN CORPUSCULAR HEMOGLOBIN 22.4 PG (27.0-34.0); MEAN CORPUSCULAR HGB CONC 31.2 % (32.0-36.0); MONO % 7.7 % (0.0-8.0); NEUT % 88.3 % (16.0-70.0); PLATELET COUNT 175 TH/MM3 (150-450); RED CELL DISTRIBUTION WIDTH 18.6 % (11.6-17.2); WHITE BLOOD COUNT 7.3 TH/MM3 (4.0-11.0)
[2016-07-24] MEDS: LABETALOL HCL 100 MG/20 ML VIAL IV PUSH PRN ×2 (05:07→10:08)
[2016-07-24 05:18] LABS: HEMO FLAGS AUTO DIFF
[2016-07-24] MEDS: NIFEdipine 20 MG CAP PO SCH ×3 (05:19→21:07)
[2016-07-24] MEDS: CLINDAMYCIN INJ 600 MG in SODIUM CHLORIDE 0.9% INJ 100 ML IV SCH (06:08)
--- NOTE | 2016-07-24 06:40 | MB ---
cc: ANGELES MENESES DATE OF CONSULTATION 07/23/2016 REASON FOR CONSULTATION Respiratory failure and CHF. HISTORY OF PRESENT ILLNESS This is a 50-year-old overweight female with a history of hypertension, diabetes, depression and CHF, was admitted with progressive dyspnea and massive weight gain and leg swelling. The patient was last admitted a month ago. She has gained weight since then and over 50 pounds was added and she has had significant leg swelling as well. She has been short of breath. She has had chest pressure and wheezing. No fevers or chills. No nausea, vomiting or aspiration. PAST HISTORY 1. History of hypertension. 2. History of obesity and possible sleep apnea. 3. She has had prior history of diabetes and peripheral neuropathy. 4. Anemia of chronic disease. 5. Chronic kidney disease. 6. She has had a cardiac cath done in the past and treated for CHF as well. MED LIST 1. Bumex 1 mg b.i.d. 2. Norvasc 10 mg daily. 3. Oxygen 2 liters by nasal cannula at night. 4. Humalog injections 12 units subcu b.i.d. 5. Pepcid 40 mg a day. 6. Nitroglycerin p.r.n. 7. Gabapentin 300 mg t.i.d. 8. Atorvastatin 80 mg at bedtime. 9. Glipizide XL 2.5 mg daily. 10. Amitriptyline 50 mg at bedtime. 11. Coreg 25 mg b.i.d. 12. Xanax 0.25 b.i.d. ALLERGIES LYRICA. HABITS The patient does not smoke. No history of alcohol usage. FAMILY HISTORY Noncontributory. Apparently there is a history of diabetes. SYSTEMS REVIEW The patient is unable to respond to questions appropriately. She has leg swelling, she has joint pains. No headaches or blackouts and she does have some apnea and leg swelling and joint pains of her extremities and trouble ambulating. PHYSICAL EXAMINATION General: This is a very obese middle-aged lady who is alert and pale and dyspneic at rest. Vital Signs: Blood pressure 145/80, pulse is 82, respirations 22, temperature 98.1. HEENT: Head normocephalic. Pupils are reactive and equal. Tongue is moist. Throat is mildly injected. Nasal mucosa edematous. Neck: Supple. No lymphadenopathy. Mild venous distension at 45 degrees. Trachea midline. Chest: Distant breath sounds with wheezes bilaterally, prolonged expirations, crackles heard at the lung bases. Heart: The heart sounds are irregular. S1 and S2. No definite murmur. No S3. Abdomen: Soft, protuberant. No mass, no organomegaly or tenderness. Bowel sounds are active. Extremities: Mild varicosities. Decreased peripheral pulses. 2+ leg edema. Neurologic: Reflexes are 1+ with no gross deficit. Cranial nerves not tested. Rectal: Exam deferred. Skin: Scaly, dry and warm. IMPRESSION 1. CHF with acute exacerbation. 2. Possible obstructive sleep apnea syndrome. 3. Hypertension. 4. Elevated troponin. 5. Diabetes mellitus type 2. 6. Obesity. PLAN 1. The patient will be maintained on O2 at 4 liters nasal cannula. We will place her on BiPap at night 12/5 and FIO2 of 30%. Nebulized DuoNeb solution added EzPAP. 2. Pulmonary function study will be done at the bedside. 3. Sleep study to be done as an outpatient. 4. Follow-up chest x-ray to be done. I will follow the case with you Dr. Bowens. Thank you this consultation. MD SCAR Espinosa/[place] /11:42 PM /6:28 AM
[2016-07-24] MEDS: CHLORHEXIDINE 0.12% (ORAL KIT) 15 ML CUP MT SCH ×4 (08:00→19:36)
[2016-07-24] MEDS: BUMETANIDE INJ 1 MG/4 ML VIAL IV PUSH SCH ×2 (08:14→17:45)
[2016-07-24] MEDS: CEFEPIME INJ 2,000 MG in SODIUM CHLORIDE 0.9% INJ 100 ML IV SCH (08:14)
[2016-07-24] MEDS: CARVEDILOL 12.5 MG TAB PO SCH ×2 (08:15→19:39)
[2016-07-24] MEDS: FERROUS SULFATE 325 MG (65 MG ELEMENTAL IRON) TAB PO SCH ×2 (08:15→19:39)
[2016-07-24] MEDS: ASPIRIN EC 81 MG TABEC PO SCH (08:15)
[2016-07-24] MEDS: GABAPENTIN 300 MG CAP PO SCH (08:15)
[2016-07-24] MEDS: HEPARIN SODIUM - SQ 10,000 UNITS/ML VIAL SQ SCH ×2 (08:15→19:39)
[2016-07-24] MEDS: ALBUMIN HUMAN 25% 25 GM/100 ML BAGP IV SCH ×2 (08:15→16:15)
[2016-07-24] MEDS: SODIUM CHLORIDE 0.9% FLUSH 5 ML FLUSH IVF SCH ×3 (08:16→19:39)
[2016-07-24] MEDS: SODIUM CHLOR 0.9% 1000 ML INJ 1,000 ML IV SCH ×2 (08:16→19:36)
[2016-07-24] MEDS: MUPIROCIN 2% OINT 1 APPLIC/GM SYR EACH NARE SCH ×2 (08:20→19:37)
[2016-07-24] MEDS: LISINOPRIL 20 MG TAB PO SCH (08:20)
[2016-07-24] MEDS: hydrALAZINE HCL 50 MG TAB PO SCH ×3 (08:20→17:45)
[2016-07-24] MEDS: PANTOPRAZOLE SODIUM 40 MG VIAL IV SCH (08:20)
[2016-07-24 08:49] LABS: BANDS 10 % (0-6); EOSINOPHILS 1 % (0-4); NEUTROPHIL # MANUAL DIFF 6.8 TH/MM3 (1.8-7.7); POLYS (SEG NEUTROPHILS) 83 % (16-70); WBC DIFF SAMPLE 100
[2016-07-24 08:50] LABS: PLATELET ESTIMATE SMEAR NORMAL (NORMAL); PLATELET MORPHOLOGY NORMAL (NORMAL); SCAN/DIFF FINAL DIFF MANUAL
--- NOTE | 2016-07-24 08:58 | PD.CARD.PN ---
Subjective Subjective Remarks Events over night noted Objective Medications Current Medications Medications (Trade) Dose Ordered Sig/Christa Route Start Time Stop Time Status Last Admin (Narcan Inj) 0.4 mg UNSCH PRN IV 07/15/16 20:45 (Bumex Inj) 1 mg BID@18 IV PUSH 07/16/16 09:00 07/24/16 08:14 (Elavil) 50 mg HS PO 07/16/16 21:00 Hold 07/21/16 19:33 (Ecotrin Ec) 81 mg DAILY PO 07/16/16 09:00 07/24/16 08:15 (Lipitor) 80 mg HS PO 07/16/16 21:00 07/22/16 19:50 (Coreg) 25 mg BID PO 07/16/16 09:00 07/24/16 08:15 (Ferrous Sulfate) 325 mg BID PO 07/16/16 09:00 07/24/16 08:15 (Apresoline) 50 mg TID PO 07/16/16 09:00 07/24/16 08:20 (Albumin 25% Inj) 25 gm BID@ IV 07/16/16 17:00 07/24/16 08:15 (Prinivil) 20 mg DAILY PO 07/17/16 09:00 07/24/16 08:20 (Cerritos 5-325 Mg) 1 tab Q6H PRN PO 07/16/16 23:30 07/23/16 16:58 (Zofran Inj) 4 mg Q6HR PRN IV PUSH 07/18/16 06:00 07/18/16 05:57 (NS Flush) 2 ml UNSCH PRN IVF 07/18/16 13:45 (NS Flush) 2 ml BID IVF 07/18/16 21:00 07/24/16 08:16 (Peridex 0.12% Liq) 15 ml BID@08,20 MT 07/18/16 20:00 07/24/16 08:14 (Protonix Inj) 40 mg DAILY IV 07/19/16 09:00 07/24/16 08:20 Miscellaneous Information 1 Q361D XX 07/18/16 13:45 07/18/16 13:45 (Chlorhexidine 2% Cloth) Taper DAILY@04 TOP 07/19/16 04:00 07/15/17 03:59 07/24/16 03:30 Chlorhexidine Gluconate 3 pack 3 pack UNSCH PRN TOP 07/18/16 13:45 (NS 1000 ml Inj) 1,000 ml @ 0 mls/hr Q0M PRN IV 07/19/16 12:15 Heparin Sodium (Porcine) 8000 units 8,000 units UNSCH PRN IVF 07/19/16 12:15 (NS 1000 ml Inj) 1,000 ml @ 0 mls/hr Q0M PRN IV 07/19/16 12:15 (Mannitol Inj) 12.5 gm UNSCH PRN IV 07/19/16 12:15 (Albumin 25% Inj) 25 gm UNSCH PRN IV 07/19/16 12:15 (NS Flush) 5 ml UNSCH PRN IVF 07/19/16 12:15 (Heparin Inj) UNSCH PRN .XX 07/19/16 12:15 (Gentamicin (Dialysis) Inj) 20 mg UNSCH PRN IV 07/19/16 12:15 (Zofran Inj) 4 mg UNSCH PRN IV 07/19/16 12:15 (Tylenol) 650 mg UNSCH PRN PO 07/19/16 12:15 07/20/16 20:41 (Benadryl) 25 mg UNSCH PRN PO 07/19/16 12:15 (Nitrostat Sl) 0.4 mg UNSCH PRN SL 07/19/16 12:15 (Catapres) 0.1 mg UNSCH PRN PO 07/19/16 12:15 07/22/16 03:11 (Epogen Inj) 4,000 units UNSCH PRN IV 07/19/16 12:15 (Gelfoam 12 Mm/7 Mm Top) 1 foam UNSCH PRN TOP 07/19/16 12:15 (Heparin Inj) 5,000 units Q12HR SQ 07/20/16 21:00 07/24/16 08:15 (D50w (Vial) Inj) 25 ml UNSCH PRN IV PUSH 07/20/16 09:45 (Glucagon Inj) 1 mg UNSCH PRN OTHER 07/20/16 09:45 (NovoLIN R SUPPLEMENTAL SCALE) 1 Q6H SQ 07/20/16 11:00 07/23/16 17:00 (Neurontin) 300 mg DAILY PO 07/22/16 09:00 07/24/16 08:15 (Trandate Inj) 10 mg Q4H PRN IV PUSH 07/22/16 04:45 07/24/16 05:07 (Apresoline Inj) 10 mg Q4H PRN IV PUSH 07/22/16 05:30 07/24/16 06:24 (Mycostatin Powder) 1 applic Q12HR PRN TOPICAL 07/22/16 16:00 (Procardia) 20 mg Q8HR PO 07/23/16 14:00 07/23/16 13:50 Chlorhexidine Gluconate 15 ml 15 ml BID@08,20 MT 07/23/16 20:00 07/23/16 20:00 Propofol 100 ml @ 0 mls/hr TITRATE IV 07/23/16 19:30 07/24/16 00:59 (fentaNYL DRIP) 250 ml @ 0 mls/hr TITRATE IV 07/23/16 19:30 07/24/16 00:59 (Bactroban Nasal 2% Oint) 1 applic Taper BID EACH NARE 07/23/16 21:00 07/19/17 20:59 07/24/16 08:20 (NS Flush) DAILY IVF 07/23/16 20:00 07/24/16 08:16 IV Flush UNSCH PRN IVF 07/23/16 20:00 Sodium Chloride 1,000 ml @ 84 mls/hr [id number] IV 07/23/16 20:45 07/24/16 08:16 Cefepime HCl 2000 mg/Sodium Chloride 100 ml @ 200 mls/hr DAILY IV 07/23/16 22:00 07/24/16 08:14 (Cleocin Inj/NS Inj) 104 ml @ 208 mls/hr Q8H IV 07/23/16 23:00 07/24/16 06:08 Vital Signs / I&O Vital Signs Date Time Temp Pulse Resp B/P Pulse Ox O2 Delivery O2 Flow Rate FiO2 07/24/16 07:34 99 50 07/24/16 04:11 100 70 07/24/16 04:00 98.8 80 28 177/83 100 07/24/16 04:00 70 07/24/16 00:49 99 80 07/24/16 00:00 98.8 80 18 166/83 99 07/24/16 00:00 80 07/23/16 22:48 100 90 07/23/16 20:47 96 07/23/16 20:00 77 07/23/16 20:00 98.8 72 16 129/72 98 07/23/16 19:20 94 100 07/23/16 19:10 15.00 100 07/23/16 19:00 100 Mechanical Ventilator 100 07/23/16 16:00 97.4 65 18 107/59 92 07/23/16 12:00 97.8 73 20 165/84 96 07/23/16 11:00 93 40 07/23/16 09:22 97 40 I/O 07/23/16 07/23/16 07/23/16 07/24/16 07/24/16 07/24/16 07:00 15:00 23:00 07:00 15:00 23:00 Intake Total 720 ml 720 ml 300 ml 730 ml Output Total 400 ml 725 ml 725 ml Balance 320 ml -5 ml 300 ml 5 ml Intake Oral 720 ml 720 ml IV Total 300 ml 730 ml Output Urine Total 400 ml 725 ml 625 ml Gastric Drainage Total 100 ml # Bowel Movements 0 2 1 Physical Exam GENERAL: Awake on the vent, no tracking noted, not following commands SKIN: Warm and dry. HEAD: Atraumatic. Normocephalic. EYES: Pupils equal and round. No scleral icterus. No injection or drainage. ENT: No nasal bleeding or discharge. Mucous membranes pink and moist. NECK: Trachea midline. No JVD. CARDIOVASCULAR: Regular rate and rhythm. RESPIRATORY: No accessory muscle use. Decreased breath sounds bilaterally GASTROINTESTINAL: Abdomen soft, non-tender, nondistended. Hepatic and splenic margins not palpable. MUSCULOSKELETAL: 2+ pitting edema bilaterally NEUROLOGICAL: Awake on the vent. Not following commands Laboratory Laboratory Tests Test 07/23/16 07/23/16 07/23/16 07/23/16 21:30 22:23 23:45 23:55 White Blood Count 7.2 TH/MM3 Red Blood Count 3.72 MIL/MM3 Hemoglobin 8.5 GM/DL Hematocrit 26.9 % Mean Corpuscular Volume 72.4 FL Mean Corpuscular Hemoglobin 22.9 PG Mean Corpuscular Hemoglobin 31.6 % Concent Red Cell Distribution Width 18.6 % Platelet Count 161 TH/MM3 Mean Platelet Volume 9.7 FL Neutrophils (%) (Auto) 93.8 % Lymphocytes (%) (Auto) 1.1 % Monocytes (%) (Auto) 3.4 % Eosinophils (%) (Auto) 1.3 % Basophils (%) (Auto) 0.4 % Neutrophils # (Auto) 6.8 TH/MM3 Lymphocytes # (Auto) 0.1 TH/MM3 Monocytes # (Auto) 0.2 TH/MM3 Eosinophils # (Auto) 0.1 TH/MM3 Basophils # (Auto) 0.0 TH/MM3 CBC Comment AUTO DIFF Differential Comment AUTO DIFF CONFIRMED Platelet Estimate NORMAL Platelet Morphology Comment NORMAL Prothrombin Time 13.3 SEC Prothromb Time International 1.2 RATIO Ratio Activated Partial 25.5 SEC Thromboplast Time Fibrinogen 257 mg/dL Sodium Level 139 MEQ/L Potassium Level 3.7 MEQ/L Chloride Level 105 MEQ/L Carbon Dioxide Level 26.6 MEQ/L Anion Gap 7 MEQ/L Blood Urea Nitrogen 46 MG/DL Creatinine 3.77 MG/DL Estimat Glomerular Filtration 13 ML/MIN Rate Random Glucose 141 MG/DL Lactic Acid Level 1.1 mmol/L Calcium Level 7.6 MG/DL Phosphorus Level 5.1 MG/DL Total Bilirubin 0.5 MG/DL Aspartate Amino Transf 19 U/L (AST/SGOT) Alanine Aminotransferase 14 U/L (ALT/SGPT) Alkaline Phosphatase 113 U/L Total Creatine Kinase 120 U/L Troponin I 0.08 NG/ML Total Protein 6.2 GM/DL Albumin 3.3 GM/DL Blood Gas Puncture Site RT RADIAL Blood Gas Patient Temperature 98.6 Blood Gas HCO3 23 mmol/L Blood Gas Base Excess -3.5 mmol/L Blood Gas Oxygen Saturation 97 % Arterial Blood pH 7.25 Arterial Blood Partial 54 mmHg Pressure CO2 Arterial Blood Partial 140 mmHg Pressure O2 Arterial Blood Oxygen Content 12.8 Vol % Arterial Blood 1.1 % Carboxyhemoglobin Arterial Blood Methemoglobin 0.7 % Blood Gas Hemoglobin 9.2 G/DL Oxygen Delivery Device VENTILATOR Blood Gas Ventilator Setting PRVC/AC Blood Gas Inspired Oxygen 100 % Urine Color YELLOW Urine Turbidity CLOUDY Urine pH 6.0 Urine Specific [place] 1.024 Urine Protein GREATER THAN 600 mg/dL Urine Glucose (UA) 150 mg/dL Urine Ketones NEG mg/dL Urine Occult Blood MOD Urine Nitrite NEG Urine Bilirubin NEG Urine Urobilinogen LESS THAN 2.0 MG/DL Urine Leukocyte Esterase TRACE Urine RBC 95 /hpf Urine WBC 52 /hpf Urine WBC Clumps FEW Urine Squamous Epithelial 5 /hpf Cells Urine Transitional Epithelial <1 /hpf Cells Urine Renal Epithelial Cells 1 /hpf Urine Bacteria OCC /hpf Urine Mucus FEW /lpf Urine Yeast (Budding) FEW Microscopic Urinalysis Comment CATH-CULTURE IND Urine Random Sodium 23 MEQ/L Test 07/24/16 04:45 White Blood Count 7.3 TH/MM3 Red Blood Count 4.10 MIL/MM3 Hemoglobin 9.2 GM/DL Hematocrit 29.4 % Mean Corpuscular Volume 71.8 FL Mean Corpuscular Hemoglobin 22.4 PG Mean Corpuscular Hemoglobin 31.2 % Concent Red Cell Distribution Width 18.6 % Platelet Count 175 TH/MM3 Mean Platelet Volume 9.7 FL Neutrophils (%) (Auto) 88.3 % Lymphocytes (%) (Auto) 2.9 % Monocytes (%) (Auto) 7.7 % Eosinophils (%) (Auto) 0.8 % Basophils (%) (Auto) 0.3 % Neutrophils # (Auto) 6.5 TH/MM3 Lymphocytes # (Auto) 0.2 TH/MM3 Monocytes # (Auto) 0.6 TH/MM3 Eosinophils # (Auto) 0.1 TH/MM3 Basophils # (Auto) 0.0 TH/MM3 CBC Comment AUTO DIFF Lactic Acid Level 0.8 mmol/L Phosphorus Level 4.2 MG/DL Magnesium Level 2.0 MG/DL Assessment and Plan Problem List: (1) Acute exacerbation of CHF (congestive heart failure) (2) Stage 4 chronic kidney disease (3) HTN (hypertension) (4) Diabetes (5) Elevated troponin (6) Stented coronary artery (7) Respiratory failure Assessment and Plan 1) Admitted with increased edema and SOB, denies CP... ran out of diuretic at home for 2 weeks, unable to get in to see primary doctor (needs a new one) 2) Continue gentle diuresis as possible 3) Minimally elevated troponin, most likely due to fluid overloaded state, HTN episode, CKD... previous stress test showing mild small lateral wall defect, offered diagnostic cath with a plan for staged intervention if needed, wants to continue medical management 4) Not started on dialysis due to resp distress/arrest requiring intubation during Vascath placement, creatinine stabilizing 5) Still quite hypertensive on multiple medications, snoring every time I enter the room, should be worked up for PALMER 6) [facility]) Intubated again over night, appears to retaining CO2 Problem Qualifiers (1) Acute exacerbation of CHF (congestive heart failure): Qualified Code: I50.9 - Acute on chronic congestive heart failure, unspecified congestive heart failure type (2) HTN (hypertension): Qualified Code: I10 - Essential hypertension (3) Diabetes: (4) Respiratory failure: Juancho Choudhury DO Jul 24, 2016 08:58
--- NOTE | 2016-07-24 10:14 | PD.CONS ---
History of Present Illness Service Infectious Disease Consult Requested By Dr Marianna Mckeon Reason for Consult Eval patient with MRSA pneumonia Primary Care Physician No Primary Care Physician Diagnoses: History of Present Illness Patient seen and examined. Records reviewed. Patient is a 50-year-old female, with history of CHF, presented to the hospital planing all shortness of breath and swelling in her lower extremities. She also mentioned a 50 pound weight gain in the last month. She apparently ran out of medications and stopped taking most of her meds. There was no mention of any cough or congestion, nausea vomiting, or dizziness. She has not had any regular follow-up with any of her physicians. She was admitted for CHF with exacerbation. Her chest x-ray showed basilar atelectasis. In by traffic safety administrator. On July 18 she developed acute onset of unresponsiveness, and stroke alert was called. CT of the head was unremarkable. She ended up getting intubated. He was extubated on July 19, and she was having a procedure in the radiology department when she coded again and ended up getting intubated. She was extubated on July 20, but developed stridor, which improved after steroids. She was placed on BiPAP intermittently at that time. Last night ZAHO ALEJO was again called, she was resuscitated for about 10 minutes, and is now intubated. She is currently not on pressors. She is afebrile. WBC is normal. She had a sputum culture from July 20 which is now reported as growing MRSA. Patient was on Rocephin since July 21, and last night her antibiotic was changed to cefepime and clindamycin. Her creatinine remains elevated, and nephrology has been following the patient. She has good urine output however. Infectious disease consultation has been requested to evaluate the patient. Review of Systems ROS Limitations: Clinical Condition, Intubated Past Family Social History Allergies: Coded Allergies: Lyrica (Verified Allergy, Severe, Anaphylaxis, 07/15/16) *MDRO Multi-Drug Resistant Organism (Verified Adverse Reaction, Unknown, ) MRSA (sputum)-07/20/16 MRSA PCR Screen POSITIVE - 07/18/2016 Past Medical History CHF last echo 08/01/15 EF 50% Depression HTN DM Neuropathy Anemia CKD Past Surgical History Cardiac Cath 2015 Active Ordered Medications Tylenol Costilla Albumin Albuterol Aspirin Lipitor Bumex Coreg Cefepime Clindamycin Clonidine Benadryl Epogen Fentanyl Ferrous sulfate Neurontin Heparin Hydralazine Insulin Labetalol Lisinopril Mannitol Procardia SL NTG Zofran Protonix Diprivan Social History No smoking No ETOH abuse No illicit drug use Physical Exam Vital Signs Vital Signs Date Time Temp Pulse Resp B/P Pulse Ox O2 Delivery O2 Flow Rate FiO2 07/24/16 07:34 99 50 07/24/16 04:11 100 70 07/24/16 04:00 98.8 80 28 177/83 100 07/24/16 04:00 70 07/24/16 00:49 99 80 07/24/16 00:00 98.8 80 18 166/83 99 07/24/16 00:00 80 07/23/16 22:48 100 90 07/23/16 20:47 96 07/23/16 20:00 77 07/23/16 20:00 98.8 72 16 129/72 98 07/23/16 19:20 94 100 07/23/16 19:10 15.00 100 07/23/16 19:00 100 Mechanical Ventilator 100 07/23/16 16:00 97.4 65 18 107/59 92 07/23/16 12:00 97.8 73 20 165/84 96 07/23/16 11:00 93 40 Physical Exam GENERAL: Patient is an obese female, she is intubated, she opens her eyes, she is not focusing or tracking, and not following commands. She is not in any respiratory distress. SKIN: Cool skin, dry, no generalized rash or ecchymosis. No embolic lesions noted. HEAD: Atraumatic. Normocephalic. No temporal or scalp tenderness. EYES: [place] conjunctivae, no petechia or hemorrhage. Pupils equal round and reactive. No scleral icterus. No injection or drainage. ENT: Nose without bleeding, or purulent drainage. NG tube in place, and it has light green drainage. Endotracheal tube is in the mouth. Has moist oral mucosa. NECK: Trachea midline. No JVD or lymphadenopathy. Supple, no nuchal rigidity. Left IJ central line in place with no evidence of infection. CARDIOVASCULAR: Regular rate and rhythm without murmurs, gallops, or rubs. RESPIRATORY: Coarse breath sounds bilaterally, and equal. Decreased breath sounds at the bases. GASTROINTESTINAL: Abdomen soft, obese, nondistended, no reaction to deep palpation. Bowel sounds are present and normoactive. No hepato-splenomegaly, or palpable masses. No guarding. MUSCULOSKELETAL: Extremities without clubbing, cyanosis, or edema. NEUROLOGICAL: Opens eyes, not focusing or tracking, not following commands. NO Babinski or ankle clonus : Calderon catheter in place, looks clear LINE: Left IJ central line with no evidence of infection. PIV with no evidence of infection Laboratory Laboratory Tests Test 07/23/16 07/23/16 07/23/16 07/23/16 21:30 22:23 23:45 23:55 White Blood Count 7.2 Red Blood Count 3.72 Hemoglobin 8.5 Hematocrit 26.9 Mean Corpuscular Volume 72.4 Mean Corpuscular Hemoglobin 22.9 Mean Corpuscular Hemoglobin 31.6 Concent Red Cell Distribution Width 18.6 Platelet Count 161 Mean Platelet Volume 9.7 Neutrophils (%) (Auto) 93.8 Lymphocytes (%) (Auto) 1.1 Monocytes (%) (Auto) 3.4 Eosinophils (%) (Auto) 1.3 Basophils (%) (Auto) 0.4 Neutrophils # (Auto) 6.8 Lymphocytes # (Auto) 0.1 Monocytes # (Auto) 0.2 Eosinophils # (Auto) 0.1 Basophils # (Auto) 0.0 CBC Comment AUTO DIFF Differential Comment AUTO DIFF CONFIRMED Platelet Estimate NORMAL Platelet Morphology Comment NORMAL Prothrombin Time 13.3 Prothromb Time International 1.2 Ratio Activated Partial 25.5 Thromboplast Time Fibrinogen 257 Sodium Level 139 Potassium Level 3.7 Chloride Level 105 Carbon Dioxide Level 26.6 Anion Gap 7 Blood Urea Nitrogen 46 Creatinine 3.77 Estimat Glomerular Filtration 13 Rate Random Glucose 141 Lactic Acid Level 1.1 Calcium Level 7.6 Phosphorus Level 5.1 Total Bilirubin 0.5 Aspartate Amino Transf 19 (AST/SGOT) Alanine Aminotransferase 14 (ALT/SGPT) Alkaline Phosphatase 113 Total Creatine Kinase 120 Troponin I 0.08 Total Protein 6.2 Albumin 3.3 Blood Gas Puncture Site RT RADIAL Blood Gas Patient Temperature 98.6 Blood Gas HCO3 23 Blood Gas Base Excess -3.5 Blood Gas Oxygen Saturation 97 Arterial Blood pH 7.25 Arterial Blood Partial 54 Pressure CO2 Arterial Blood Partial 140 Pressure O2 Arterial Blood Oxygen Content 12.8 Arterial Blood 1.1 Carboxyhemoglobin Arterial Blood Methemoglobin 0.7 Blood Gas Hemoglobin 9.2 Oxygen Delivery Device VENTILATOR Blood Gas Ventilator Setting PRVC/AC Blood Gas Inspired Oxygen 100 Urine Color YELLOW Urine Turbidity CLOUDY Urine pH 6.0 Urine Specific [place] 1.024 Urine Protein GREATER THAN 600 Urine Glucose (UA) 150 Urine Ketones NEG Urine Occult Blood MOD Urine Nitrite NEG Urine Bilirubin NEG Urine Urobilinogen LESS THAN 2.0 Urine Leukocyte Esterase TRACE Urine RBC 95 Urine WBC 52 Urine WBC Clumps FEW Urine Squamous Epithelial 5 Cells Urine Transitional Epithelial <1 Cells Urine Renal Epithelial Cells 1 Urine Bacteria OCC Urine Mucus FEW Urine Yeast (Budding) FEW Microscopic Urinalysis Comment CATH-CULTURE IND Urine Random Sodium 23 Test 07/24/16 04:45 White Blood Count 7.3 Red Blood Count 4.10 Hemoglobin 9.2 Hematocrit 29.4 Mean Corpuscular Volume 71.8 Mean Corpuscular Hemoglobin 22.4 Mean Corpuscular Hemoglobin 31.2 Concent Red Cell Distribution Width 18.6 Platelet Count 175 Mean Platelet Volume 9.7 Neutrophils (%) (Auto) 88.3 Lymphocytes (%) (Auto) 2.9 Monocytes (%) (Auto) 7.7 Eosinophils (%) (Auto) 0.8 Basophils (%) (Auto) 0.3 Neutrophils # (Auto) 6.5 Lymphocytes # (Auto) 0.2 Monocytes # (Auto) 0.6 Eosinophils # (Auto) 0.1 Basophils # (Auto) 0.0 CBC Comment AUTO DIFF Differential Total Cells 100 Counted Neutrophils % (Manual) 83 Band Neutrophils % 10 Lymphocytes % 1 Monocytes % 5 Eosinophils % 1 Neutrophils # (Manual) 6.8 Differential Comment FINAL DIFF MANUAL Platelet Estimate NORMAL Platelet Morphology Comment NORMAL Lactic Acid Level 0.8 Phosphorus Level 4.2 Magnesium Level 2.0 Date/Time Procedure Status Source Growth 07/24/16 04:07 Aerobic Blood Culture Received Blood Peripheral Pending 07/24/16 04:07 Anaerobic Blood Culture Received Blood Peripheral Pending 07/23/16 23:45 Urine Culture Received Urine Catheterized Urine Pending 07/23/16 23:45 Gram Stain - Final Resulted Sputum Endotracheal 07/23/16 23:45 Sputum Culture Resulted Sputum Endotracheal Pending 07/20/16 16:11 Urine Culture - Final Complete Urine Catheterized Urine NO GROWTH IN 48 HOURS. Result Diagram: 07/24/16 0445 07/23/16 2130 Imaging RADIOLOGY STUDIES/FILMS REVIEWED Chest X-Ray 07/23/161999 Signed Impressions: Service Date/Time: Saturday, July 23, 2016 20:11 - CONCLUSION: 1. Left IJ line tip in superior vena cava without pneumothorax. George Choi MD Head CT 07/23/16 Signed Impressions: Service Date/Time: Saturday, July 23, 2016 20:54 - CONCLUSION: Normal examination for a patient of this age. No significant change has occurred. George Choi MD Consultation 07/19/16 Signed Impressions: Service Date/Time: Tuesday, July 19, 2016 00:00 - CONCLUSION: Procedure not performed secondary to cardiopulmonary arrest. Emre Daniel MD Brain MRI 07/18/16 Signed Impressions: Service Date/Time: July 17:15 - CONCLUSION: White matter hyperintensities prominent for age indicating possible demyelinating disorder. No evidence of acute infarct. Eliezer Shay MD Abdomen X-Ray 07/18/16 Signed Impressions: Service Date/Time: July 15:39 - CONCLUSION: No evidence of obstruction. No MRI incompatible foreign body is identified. Eliezer Shay MD Assessment and Plan Assessment and Plan IMPRESSION Bilateral infiltrates, due to pulmonary edema, now with HCAP - C/S with MRSA Recurrent arrest felt to be due to primary respiratory event Respiratory failure , recurrent post arrest Possibly has PALMER CHF Obesity CKD (+) UA RECOMMENDATION Continue Cefepime Change Clinda to Zyvox - follow CBC Follow new C/S Monitor progress I will determine course of Rx depending on her clinical progress I will follow along with you Thank you for this consultation Discussed Condition With D/W Polina Arrington MD Jul 24, 2016 10:14
[2016-07-24] MEDS: LINEZOLID 600 MG PREMIX 300 ML IV SCH ×2 (11:00→19:38)
--- NOTE | 2016-07-24 13:05 | HHI.CCPN ---
Subjective Remarks/Hospital Course 07/18: 50 y/o female with a history of chf, depression, htn, dm, and ckd presented to the ED on 07/15 with complaints of dyspnea, swelling in her lower extremities and a 50lb weight gain since last admission 06/03/16. Patient had gained 50 lbs in fluid from last admission. She presented with increased shortness of breath with intermittent chest pressure with no radiation or associated symptoms. She was admitted on 05/31/16 and diagnosed with CHF, discharged home on on Bumex. Patient states she recently ran out of meds and has not followed up with a doctor due to transportation issues. She is not from here and her pcp is 2 hours away and she does not want her kids to take off work to take her to appointments. She is hoping to move back in 2 weeks or so. She states she tried to call a radiologic technology program director to follow up but they required her records and she did not get them. Despite taking Bumex she states she has not had an increase in urination. Last admission 2d echo showed systolic dysfunction with EF 50%, she was seen by DR. Choudhury, and DR. Medley. Patient was admitted by hospitalist service. She was evaluated by Dr. Choudhury from cardiology who offered cardiac catheterization as patient did have an elevated troponin and previous abnormal stress test however she was concerned regarding ending up on hemodialysis so she refused. Patient was reportedly on nasal cannula earlier today however around 1:30 PM was noted to be lethargic and minimally responsive. Stroke alert was called. Head CT was negative for bleed. Recent had an ABG done which revealed pH of 7.0/PCO2 87/PO2 49. Critical care service was contacted by Dr. Mckeon. Both myself and Dr. Ott arrived at bedside. Patient was encephalopathic though arousable with painful stimuli occasional morning however not following commands. Her fingerstick glucose was in the 140s earlier. Decision was made to proceed with endotracheal intubation which was performed by Dr. Goff. A stat MRI brain was ordered to evaluate for CVA after discussion with Dr. Estes. 07/19: Awakens easily off sedation following commands this morning. On mechanical ventilation. MRI brain done yesterday did not show any acute event. 07/20 Patient was extubated yesterday went to IR for vascath placement and had resp arrest she was subsequently reintubated. Now sedated with Diprivan. Afebrile. MRI brain showed no evidence of acute infract. 07/21 Patient s/p extubation yesterday was given racemic Decadron 4mg IV x1 and racemic epi for ? stridor overnight placed on BIPAP 03/20 with 40% FIO2. ABG on BIPAP shows improvements in her resp acidosis with PH 7.30 and CO2: 48 from 57. Now of BIPAP and is on 6L oxygen. 07/22 No acute events overnight. Patient is on 4L oxygen with good sats. Afebrile. renal function improving with Cr: 3.22 and UO: 2850ml in 24 hrs Subjective 07/23 - CODE BLUE call today secondary to unresponsiveness. According to RN, patient received Barnard at 5 PM. Not seen. Upon evaluation by RN patient was not breathing on nasal cannula. Received 1 mg of epinephrine and one ampule sodium bicarbonate. Intubated with 8.0 ET tube. ROSC after around 10 minutes. Transferred ISC. Occasionally taking large breaths otherwise unresponsive on the ventilator 07/24: Remains orally intubated on mechanical ventilation. Has not required any sedation since arrival to the ICU, remains encephalopathic/comatose. Objective Vital Signs Date Time Temp Pulse Resp B/P Pulse Ox O2 Delivery O2 Flow Rate FiO2 07/24/16 12:00 70 07/24/16 12:00 99.9 87 18 176/85 100 07/24/16 08:00 Mechanical Ventilator 07/23/16 19:10 15.00 Intake and Output 07/23/16 07/23/16 07/24/16 08:00 16:00 00:00 Intake Total 720 ml 720 ml 300 ml Output Total 400 ml 725 ml Balance 320 ml -5 ml 300 ml Result Diagram: 07/24/16 0445 07/23/16 2130 Other Results Laboratory Tests Test 07/23/16 07/23/16 07/23/16 07/23/16 21:30 22:23 23:45 23:55 White Blood Count 7.2 TH/MM3 Red Blood Count 3.72 MIL/MM3 Hemoglobin 8.5 GM/DL Hematocrit 26.9 % Mean Corpuscular Volume 72.4 FL Mean Corpuscular Hemoglobin 22.9 PG Mean Corpuscular Hemoglobin 31.6 % Concent Red Cell Distribution Width 18.6 % Platelet Count 161 TH/MM3 Mean Platelet Volume 9.7 FL Neutrophils (%) (Auto) 93.8 % Lymphocytes (%) (Auto) 1.1 % Monocytes (%) (Auto) 3.4 % Eosinophils (%) (Auto) 1.3 % Basophils (%) (Auto) 0.4 % Neutrophils # (Auto) 6.8 TH/MM3 Lymphocytes # (Auto) 0.1 TH/MM3 Monocytes # (Auto) 0.2 TH/MM3 Eosinophils # (Auto) 0.1 TH/MM3 Basophils # (Auto) 0.0 TH/MM3 CBC Comment AUTO DIFF Differential Comment AUTO DIFF CONFIRMED Platelet Estimate NORMAL Platelet Morphology Comment NORMAL Prothrombin Time 13.3 SEC Prothromb Time International 1.2 RATIO Ratio Activated Partial 25.5 SEC Thromboplast Time Fibrinogen 257 mg/dL Sodium Level 139 MEQ/L Potassium Level 3.7 MEQ/L Chloride Level 105 MEQ/L Carbon Dioxide Level 26.6 MEQ/L Anion Gap 7 MEQ/L Blood Urea Nitrogen 46 MG/DL Creatinine 3.77 MG/DL Estimat Glomerular Filtration 13 ML/MIN Rate Random Glucose 141 MG/DL Lactic Acid Level 1.1 mmol/L Calcium Level 7.6 MG/DL Phosphorus Level 5.1 MG/DL Total Bilirubin 0.5 MG/DL Aspartate Amino Transf 19 U/L (AST/SGOT) Alanine Aminotransferase 14 U/L (ALT/SGPT) Alkaline Phosphatase 113 U/L Total Creatine Kinase 120 U/L Troponin I 0.08 NG/ML Total Protein 6.2 GM/DL Albumin 3.3 GM/DL Blood Gas Puncture Site RT RADIAL Blood Gas Patient Temperature 98.6 Blood Gas HCO3 23 mmol/L Blood Gas Base Excess -3.5 mmol/L Blood Gas Oxygen Saturation 97 % Arterial Blood pH 7.25 Arterial Blood Partial 54 mmHg Pressure CO2 Arterial Blood Partial 140 mmHg Pressure O2 Arterial Blood Oxygen Content 12.8 Vol % Arterial Blood 1.1 % Carboxyhemoglobin Arterial Blood Methemoglobin 0.7 % Blood Gas Hemoglobin 9.2 G/DL Oxygen Delivery Device VENTILATOR Blood Gas Ventilator Setting PRVC/AC Blood Gas Inspired Oxygen 100 % Urine Color YELLOW Urine Turbidity CLOUDY Urine pH 6.0 Urine Specific [place] 1.024 Urine Protein GREATER THAN 600 mg/dL Urine Glucose (UA) 150 mg/dL Urine Ketones NEG mg/dL Urine Occult Blood MOD Urine Nitrite NEG Urine Bilirubin NEG Urine Urobilinogen LESS THAN 2.0 MG/DL Urine Leukocyte Esterase TRACE Urine RBC 95 /hpf Urine WBC 52 /hpf Urine WBC Clumps FEW Urine Squamous Epithelial 5 /hpf Cells Urine Transitional Epithelial <1 /hpf Cells Urine Renal Epithelial Cells 1 /hpf Urine Bacteria OCC /hpf Urine Mucus FEW /lpf Urine Yeast (Budding) FEW Microscopic Urinalysis Comment CATH-CULTURE IND Urine Random Sodium 23 MEQ/L Test 07/24/16 04:45 White Blood Count 7.3 TH/MM3 Red Blood Count 4.10 MIL/MM3 Hemoglobin 9.2 GM/DL Hematocrit 29.4 % Mean Corpuscular Volume 71.8 FL Mean Corpuscular Hemoglobin 22.4 PG Mean Corpuscular Hemoglobin 31.2 % Concent Red Cell Distribution Width 18.6 % Platelet Count 175 TH/MM3 Mean Platelet Volume 9.7 FL Neutrophils (%) (Auto) 88.3 % Lymphocytes (%) (Auto) 2.9 % Monocytes (%) (Auto) 7.7 % Eosinophils (%) (Auto) 0.8 % Basophils (%) (Auto) 0.3 % Neutrophils # (Auto) 6.5 TH/MM3 Lymphocytes # (Auto) 0.2 TH/MM3 Monocytes # (Auto) 0.6 TH/MM3 Eosinophils # (Auto) 0.1 TH/MM3 Basophils # (Auto) 0.0 TH/MM3 CBC Comment AUTO DIFF Differential Total Cells 100 Counted Neutrophils % (Manual) 83 % Band Neutrophils % 10 % Lymphocytes % 1 % Monocytes % 5 % Eosinophils % 1 % Neutrophils # (Manual) 6.8 TH/MM3 Differential Comment FINAL DIFF MANUAL Platelet Estimate NORMAL Platelet Morphology Comment NORMAL Lactic Acid Level 0.8 mmol/L Phosphorus Level 4.2 MG/DL Magnesium Level 2.0 MG/DL Imaging Last Impressions Chest X-Ray 07/23/16 0000 Signed Impressions: Service Date/Time: Saturday, July 23, 2016 12:26 - CONCLUSION: 1. No extubation and removal of nasogastric tube. 2. Alveolar opacities remain in both lungs. 3. Right costophrenic angle appears blunted. Grady Hale MD Consultation 07/19/16 0000 Signed Impressions: Service Date/Time: Tuesday, July 19, 2016 00:00 - CONCLUSION: Procedure not performed secondary to cardiopulmonary arrest. Emre Daniel MD Head CT 07/18/16 1237 Signed Impressions: Service Date/Time: July 12:43 - CONCLUSION: 1. No evidence of acute intracranial pathology. No masses are identified. Emre Daniel MD Brain MRI 07/18/16 0000 Signed Impressions: Service Date/Time: July 17:15 - CONCLUSION: White matter hyperintensities prominent for age indicating possible demyelinating disorder. No evidence of acute infarct. Eliezer Shay MD Abdomen X-Ray 07/18/16 0000 Signed Impressions: Service Date/Time: July 15:39 - CONCLUSION: No evidence of obstruction. No MRI incompatible foreign body is identified. Eliezer Shay MD Objective Remarks GENERAL: 50-year-old female, critically ill currently orotracheally intubated SKIN: Warm and dry. No rash HEAD: Normocephalic. EYES: No scleral icterus. No injection or drainage. NECK: Supple, trachea midline. No JVD or lymphadenopathy. CARDIOVASCULAR: RRR. S1, S2. No S4. Without murmur RESPIRATORY: On mechanical ventilation, Diminished due to body habitus. Breath sounds equal bilaterally. Scattered rhonchi. GASTROINTESTINAL: Abdomen soft, obese. Hypoactive bowel sounds MUSCULOSKELETAL: With nonpitting peripheral edema. Neuro: Comatose, orally intubated on mechanical ventilation Positive gag. Positive corneal reflex. Currently not withdrawing to noxious stimuli pain. Upgoing toes. Date of Insertion: Jul 23, 2016 Line: Central Venous Catheter Side: Left Location: Internal, Jugular A/P Assessment and Plan Neuro/Psych: Toxic metabolic encephalopathy/history CO2 retention History of depression Peripheral neuropathy Head CT negative for bleed Not requiring any sedation. Will obtain EEG. Will inform Dr. Estes regarding encephalopathy following cardiac arrest for neurology follow-up Acetaminophen for fever Baby aspirin 81 mg for now Holding Neurontin 300 mg 3 times a day/neuropathy medication Holding Elavil 50 mg at night for depression. 2/ MRI brain: White matter hyperintensities prominent for age indicating possible demyelinating disorder. No evidence of acute infarct. 2/2 CT brain: No acute infarct 07/19 EEG: Mild- mod encephalopathy CV: Hypertension CHF - diastolic Non-STEMI KVO IV fluids Echocardiogram 05/21 revealed EF 50%. Mildly dilated ventricle. Diffuse hypokinesis. Follow-up limited echocardiogram ordered Currently on Coreg 25 twice a day, hydralazine 50 3 times a day a day, lisinopril 20 daily nifedipine 20 every 8 hours hypertension. At home on Norvasc 10 mg daily. This is been on hold while on nifedipine Continue atorvastatin 80 mg daily's for dyslipidemia. Continue diuresis Followed by cardiology. They believe troponin likely due to fluid overloaded state, HTN episode, CKD... previous stress test showing mild small lateral wall defect, offered diagnostic cath with a plan for staged intervention if needed Resp: Acute hypoxemic respiratory failure [facility] 16/550/40 Ventilator bundle Bronchodilator therapy every 4 hours and as needed Follow chest x-ray/ABG post intubation Clinically pickwickian/PALMER On intermittent home oxygen at home GI: Patient is currently nothing by mouth Protonix for GI prophylaxis Colace/as needed Senokot for bowel regimen : Calderon will be placed for accurate I's and output in critically ill patient Endo: Diabetes mellitus At home, patient is on Lantus 40 units daily and lispro 12 units twice a day. This is been held. Hold glipizide 2.5 mill grams daily. Sliding-scale insulin with Accu checks every 6 hours to maintain euglycemia. Last blood sugar 178 Renal: Acute on chronic kidney injury Nephrotic syndrome Followed by nephrology. No indication for current hemodialysis Tenuous Bumex to 1 mg IV twice a day. Gentle diuresis Greater than 10 g protein on urine studies. Likely accommodation of hypertension/diabetes. Heme: Anemia Currently on iron sulfate 325 by mouth twice a day/home medication. Follow-up post code CBC/coags ID: MRSA pneumonia Pertinent cultures / - sputum - MRSA Infectious disease consult for antibiotic management. On cefepime/Zyvox per ID Repeat blood cultures 2, sputum and urine now MSK: Morbid obesity Osteoporosis Holding Drisdol 50,000 units every Friday. Weight loss encouraged FEN: Replace electrolyte as clinically indicated Access - Left IJ CVL day 1 Prophylaxis - GI - Protonix - DVT - SCD/heparin Critical Care: The total critical care time was 40 minutes. Time to perform other separately billable procedures was not included in the critical care time. Lopez Reynaga MD Jul 24, 2016 13:05
--- NOTE | 2016-07-24 17:06 | HHI.NPPN ---
Subjective History of Present Illness 50 year old with CKD 4/5 Diabetes Nephrotic range proteinuria Additional Remarks Patient is now intubated and transferred to [facility]. Review of Systems General Constitutional: Fatigue Cardiovascular Cardiac: Edema Objective Data Data 07/23/16 07/24/16 19:00 07:00 Intake Total 1020 ml 730 ml Output Total 725 ml 725 ml Balance 295 ml 5 ml Intake Oral 720 ml IV Total 300 ml 730 ml Output Urine Total 725 ml 625 ml Gastric Drainage Total 100 ml # Bowel Movements 2 1 Vital Signs Date Time Temp Pulse Resp B/P Pulse Ox O2 Delivery O2 Flow Rate FiO2 07/24/16 16:19 97 40 07/24/16 16:00 70 07/24/16 16:00 98.9 86 18 184/92 99 07/24/16 12:00 70 07/24/16 12:00 99.9 87 18 176/85 100 07/24/16 11:12 97 40 07/24/16 08:00 100 Mechanical Ventilator 50 07/24/16 08:00 98.9 86 18 180/85 100 07/24/16 08:00 86 07/24/16 08:00 70 07/24/16 07:34 99 50 07/24/16 04:11 100 70 07/24/16 04:00 98.8 80 28 177/83 100 07/24/16 04:00 70 07/24/16 00:49 99 80 07/24/16 00:00 98.8 80 18 166/83 99 07/24/16 00:00 80 07/23/16 22:48 100 90 07/23/16 20:47 96 07/23/16 20:00 77 07/23/16 20:00 98.8 72 16 129/72 98 07/23/16 19:20 94 100 07/23/16 19:10 15.00 100 07/23/16 19:00 100 Mechanical Ventilator 100 -: 07/24/16 0445 07/23/16 2130 Microbiology 07/23/16 Gram Stain - Final, Resulted 07/23/16 Sputum Culture, Resulted Pending 07/23/16 Urine Culture, Received Pending 07/24/16 Aerobic Blood Culture, Received Pending 07/24/16 Anaerobic Blood Culture, Received Pending Physical Exam General Appearance: Obese Appearance Remarks Intubated and sedated. Throat Throat Exam: Oral Mucosa [place] & Moist Neck Neck Exam: Neck Supple Pulmonary Resp Exam: Crackles, Rhonchi, Decreased Bases, Diminished Breath Sounds Cardiology CV Exam: Regular, Normal Sinus Rhythm Gastrointestinal/Abdomen GI Exam: Soft, Non-Tender, Distended Extremeties Extremities Exam: Pitting Edema, Dependent Edema Neurologic Neuro Exam: Sedated Assessment/Plan Problem List: (1) Stage 4 chronic kidney disease Plan: Patient with advanced kidney disease and had the workup in May. including MATEUS/SPEP Neg Nephrotic proteinuria 10 grams - likely DM nephropathy Urine out put increased, Creatinine increased slightly. Most likely has advance Diabetic Nephropathy. Urine out put is good, on Bumex. (2) Nephrotic syndrome Plan: Protein to creatinine ratio above 10 10.52 (3) Acute exacerbation of CHF (congestive heart failure) Plan: This is likely due to chronic kidney disease and diastolic dysfunction (4) Diabetes Plan: Advance manifestations diabetic nephropathy, retinopathy and neuropathy (5) HTN (hypertension) Plan: Continue to monitor (6) Respiratory failure Plan Continue antibiotics. Problem Qualifiers (1) Acute exacerbation of CHF (congestive heart failure): Qualified Code: I50.9 - Acute on chronic congestive heart failure, unspecified congestive heart failure type (2) Diabetes: (3) HTN (hypertension): Qualified Code: I10 - Essential hypertension (4) Respiratory failure: Qualified Code: J96.01 - Acute respiratory failure with hypoxia Mia Medley MD Jul 24, 2016 17:06
--- NOTE | 2016-07-24 17:46 | ECHLIM ---
Study Study Date:07/24/2016 STUDY CONCLUSIONS SUMMARY - Left ventricle: The cavity size was normal. Wall thickness was normal. Systolic function was mildly reduced. The estimated ejection fraction was in the range of 45% to 50%. Wall motion was normal; there were no regional wall motion abnormalities. - Tricuspid valve: Mild-moderate regurgitation. - Pulmonary arteries: PA peak pressure: 59mm Hg (S). If LV function is below 40, please consider prescribing an ACEI or ARB or document rationale for non-use. PROCEDURE DATA STUDY STATUS: Elective. Procedure: Transthoracic echocardiography. Image quality was good. Scanning was performed from the parasternal, apical, and subcostal acoustic windows. Study completion: The patient tolerated the procedure well. Transthoracic echocardiography. M-mode, complete 2D, complete spectral Doppler, and color Doppler. Height: Height: 68in. Weight: Weight: 311.4lb. Body mass index: BMI: 47.4kg/m^2. Body surface area: BSA: 2.47m^2. Patient status: Inpatient. CARDIAC ANATOMY LEFT VENTRICLE: The cavity size was normal. Wall thickness was normal. Systolic function was mildly reduced. The estimated ejection fraction was in the range of 45% to 50%. Wall motion was normal; there were no regional wall motion abnormalities. AORTIC VALVE: Trileaflet; normal thickness leaflets. Doppler: Transvalvular velocity was within the normal range. There was no stenosis. No regurgitation. AORTA: Aortic root: The aortic root was normal in size. MITRAL VALVE: Structurally normal valve. Doppler: Transvalvular velocity was within the normal range. There was no evidence for stenosis. No regurgitation. Peak gradient: 6mm Hg (D). LEFT ATRIUM: The atrium was normal in size. RIGHT VENTRICLE: The cavity size was normal. Wall thickness was normal. PULMONIC VALVE: Doppler: Transvalvular velocity was within the normal range. There was no evidence for stenosis. No regurgitation. TRICUSPID VALVE: Structurally normal valve. Doppler: Transvalvular velocity was within the normal range. Mild-moderate regurgitation. PULMONARY ARTERY: The main pulmonary artery was normal-sized. Systolic pressure was within the normal range. RIGHT ATRIUM: The atrium was normal in size. PERICARDIUM: There was no pericardial effusion. SYSTEMIC VEINS: Inferior vena cava: The vessel was dilated; the respirophasic diameter changes were blunted (< 50%); findings are consistent with elevated central venous pressure. Patient weight: 311.4lb _Ejection fraction:_ 65-75% _Fractional shortening:_ 32% up to 5Kg 5-11.5Kg 11.6-22.9Kg 23-45Kg 45-57Kg Aortic Root 7-13 <17 13-22 17-27 17-27 LA diam 6-13 <23 24-38 33-47 37-40 RVID 10-17 7-15 7-15 7-18 8-17 LVIDd 12-22 <32 24-38 33-47 37-40 LVPW 2-4 3-6 5-7 6-8 7-8 IVS 2-4 3-6 5-7 6-8 7-8 BASIC MEASUREMENTS ADULT Normal Left ventricle LV internal dimension, ED, chordal level, *65.2 mm 43-52 PLAX LV internal dimension, ES, chordal level, *53.3 mm 23-38 PLAX Fractional shortening, chordal level, PLAX *18 % >29 LV posterior wall thickness, ED 11.2 mm IVS/LVPW ratio, ED 1 <1.3 Volume, ED, MOD, 1-plane 171 ml Volume, ES, MOD, 1-plane 89 ml Ejection fraction, MOD, 1-plane 48 % Stroke volume, MOD, 1-plane 82 ml Volume index, ED, MOD, 1-plane 69 ml/m^2 Volume index, ES, MOD, 1-plane 36 ml/m^2 Stroke index, MOD, 1-plane 33.2 ml/m^2 Volume, ED, MOD, 2-plane 167 ml Volume, ES, MOD, 2-plane 97 ml Ejection fraction, MOD, 2-plane 42 % Stroke volume, MOD, 2-plane 70 ml Volume index, ED, MOD, 2-plane 68 ml/m^2 Volume index, ES, MOD, 2-plane 39 ml/m^2 Stroke index, MOD, 2-plane 28.3 ml/m^2 Ventricular septum Septal thickness, ED 11.2 mm Aortic valve Leaflet separation 18 mm 15-26 Aorta Root diameter, ED 33 mm Left atrium Anterior-posterior dimension 47 mm Anterior-posterior dimension index 1.9 cm/m^2 <2.2 BASIC MEASUREMENTS ADULT Normal Aortic valve Leaflet separation 18 mm 15-26 DOPPLER MEASUREMENTS ADULT Normal Main pulmonary artery Pressure, S *59 mm Hg =30 Mitral valve Peak E-wave velocity 119 cm/s Peak A-wave velocity 106 cm/s Peak gradient, D 6 mm Hg Peak E/A ratio 1.1 Tricuspid valve Regurgitant peak velocity 312 cm/s Peak RV-RA gradient, S 39 mm Hg Maximal regurgitant velocity 312 cm/s Right ventricle RV pressure, S *59 mm Hg <30 LEGEND: Mean values are shown as u=mean value. Asterisk (*) saldaña values outside specified normal range. Prepared and signed by Issac Olivares [id number]
--- NOTE | 2016-07-24 17:52 | MG ---
cc: EMRE BROWN Lab No: Date: 07/24/2016 Age: Sex: F Race: EEG NUMBER [id number] The patient does not follow commands, unresponsive. Cardiac stents. Transfusion. MEDICATIONS Neurontin. Aspirin. DESCRIPTION Diffuse 4 Hz slowing is seen with what are likely some triphasic variants bilaterally, symmetrically. Delta slowing is noted not infrequently throughout the recording. Some muscle artifact is seen. Photic stimulation is performed without significant posterior driving. Overall recording is synchronous and symmetric. Some chewing is noted but no epileptiform or seizure activity is noted. IMPRESSION This is consistent with a severe diffuse encephalopathy. May be due to metabolic etiology. No seizure activity is noted. Clinical correlation is needed. Emre Brown MD DJM/KK /5:30 PM /5:41 PM
[2016-07-24] MEDS: cloNIDine HCL 0.1 MG TAB PO PRN (18:07)
--- NOTE | 2016-07-24 18:13 | HHI.PR ---
Review/Management Daily Summary doing better, intubated diprivan held this am and pt started following commands, moves all 4 limbs very mildly on request she gazes to right and left I don't think she had a neurologic event, will fiollow with an EEG as well otherwise prn neuro 07/24 10 minute code last evening after norco remains poorly responsive, some gaze preference to right ??right hemiparesis, ct negative eeg looks metabolic diffuse per dr Vazquez will monitor and plan on doing mri barin in am Subjective Subjective Comments No seizures, intubated last evening Active Medications Current Medications Medications (Trade) Dose Ordered Sig/Christa Route Start Time Stop Time Status Last Admin (Narcan Inj) 0.4 mg UNSCH PRN IV 07/15/16 20:45 (Bumex Inj) 1 mg BID@ IV PUSH 07/16/16 09:00 07/24/16 17:45 (Elavil) 50 mg HS PO 07/16/16 21:00 Hold 07/21/16 19:33 (Ecotrin Ec) 81 mg DAILY PO 07/16/16 09:00 07/24/16 08:15 (Lipitor) 80 mg HS PO 07/16/16 21:00 07/22/16 19:50 (Coreg) 25 mg BID PO 07/16/16 09:00 07/24/16 08:15 (Ferrous Sulfate) 325 mg BID PO 07/16/16 09:00 07/24/16 08:15 (Apresoline) 50 mg TID PO 07/16/16 09:00 07/24/16 17:45 (Albumin 25% Inj) 25 gm BID@ IV 07/16/16 17:00 07/24/16 16:15 (Prinivil) 20 mg DAILY PO 07/17/16 09:00 07/24/16 08:20 ([place] 5-325 Mg) 1 tab Q6H PRN PO 07/16/16 23:30 07/23/16 16:58 (Zofran Inj) 4 mg Q6HR PRN IV PUSH 07/18/16 06:00 07/18/16 05:57 (NS Flush) 2 ml UNSCH PRN IVF 07/18/16 13:45 (NS Flush) 2 ml BID IVF 07/18/16 21:00 07/24/16 08:16 (Peridex 0.12% Liq) 15 ml BID@08,20 MT 07/18/16 20:00 07/24/16 08:14 (Protonix Inj) 40 mg DAILY IV 07/19/16 09:00 07/24/16 08:20 Miscellaneous Information 1 Q361D XX 07/18/16 13:45 07/18/16 13:45 (Chlorhexidine 2% Cloth) Taper DAILY@04 TOP 07/19/16 04:00 07/15/17 03:59 07/24/16 03:30 Chlorhexidine Gluconate 3 pack 3 pack UNSCH PRN TOP 07/18/16 13:45 (NS 1000 ml Inj) 1,000 ml @ 0 mls/hr Q0M PRN IV 07/19/16 12:15 Heparin Sodium (Porcine) 8000 units 8,000 units UNSCH PRN IVF 07/19/16 12:15 (NS 1000 ml Inj) 1,000 ml @ 0 mls/hr Q0M PRN IV 07/19/16 12:15 (Mannitol Inj) 12.5 gm UNSCH PRN IV 07/19/16 12:15 (Albumin 25% Inj) 25 gm UNSCH PRN IV 07/19/16 12:15 (NS Flush) 5 ml UNSCH PRN IVF 07/19/16 12:15 (Heparin Inj) UNSCH PRN .XX 07/19/16 12:15 (Gentamicin (Dialysis) Inj) 20 mg UNSCH PRN IV 07/19/16 12:15 (Zofran Inj) 4 mg UNSCH PRN IV 07/19/16 12:15 (Tylenol) 650 mg UNSCH PRN PO 07/19/16 12:15 07/20/16 20:41 (Benadryl) 25 mg UNSCH PRN PO 07/19/16 12:15 (Nitrostat Sl) 0.4 mg UNSCH PRN SL 07/19/16 12:15 (Catapres) 0.1 mg UNSCH PRN PO 07/19/16 12:15 07/24/16 18:07 (Epogen Inj) 4,000 units UNSCH PRN IV 07/19/16 12:15 (Gelfoam 12 Mm/7 Mm Top) 1 foam UNSCH PRN TOP 07/19/16 12:15 (Heparin Inj) 5,000 units Q12HR SQ 07/20/16 21:00 07/24/16 08:15 (D50w (Vial) Inj) 25 ml UNSCH PRN IV PUSH 07/20/16 09:45 (Glucagon Inj) 1 mg UNSCH PRN OTHER 07/20/16 09:45 (NovoLIN R SUPPLEMENTAL SCALE) 1 Q6H SQ 07/20/16 11:00 07/23/16 17:00 (Neurontin) 300 mg DAILY PO 07/22/16 09:00 07/24/16 08:15 (Trandate Inj) 10 mg Q4H PRN IV PUSH 07/22/16 04:45 07/24/16 10:08 (Apresoline Inj) 10 mg Q4H PRN IV PUSH 07/22/16 05:30 07/24/16 11:09 (Mycostatin Powder) 1 applic Q12HR PRN TOPICAL 07/22/16 16:00 (Procardia) 20 mg Q8HR PO 07/23/16 14:00 07/24/16 13:10 Chlorhexidine Gluconate 15 ml 15 ml BID@08,20 MT 07/23/16 20:00 07/23/16 20:00 Propofol 100 ml @ 0 mls/hr TITRATE IV 07/23/16 19:30 07/24/16 00:59 (fentaNYL DRIP) 250 ml @ 0 mls/hr TITRATE IV 07/23/16 19:30 07/24/16 00:59 (Bactroban Nasal 2% Oint) 1 applic Taper BID EACH NARE 07/23/16 21:00 07/19/17 20:59 07/24/16 08:20 (NS Flush) DAILY IVF 07/23/16 20:00 07/24/16 08:16 IV Flush UNSCH PRN IVF 07/23/16 20:00 Sodium Chloride 1,000 ml @ 84 mls/hr [id number] IV 07/23/16 20:45 07/24/16 08:16 Cefepime HCl 2000 mg/Sodium Chloride 100 ml @ 200 mls/hr DAILY IV 07/23/16 22:00 07/24/16 08:14 (Zyvox 600 Mg Premix) 300 ml @ 300 mls/hr Q12HR IV 07/24/16 11:00 07/24/16 11:00 Allergies Allergies Coded Allergies Lyrica (Verified Allergy, Severe, Anaphylaxis, 07/15/16) *MDRO Multi-Drug Resistant Organism (Verified Adverse Reaction, Unknown, ) Exam I&O / VS 07/23/16 07/23/16 07/24/16 15:00 23:00 07:00 Intake Total 720 ml 300 ml 730 ml Output Total 725 ml 725 ml Balance -5 ml 300 ml 5 ml Intake Oral 720 ml IV Total 300 ml 730 ml Output Urine Total 725 ml 625 ml Gastric Drainage Total 100 ml # Bowel Movements 2 1 Vital Signs Date Time Temp Pulse Resp B/P Pulse Ox O2 Delivery O2 Flow Rate FiO2 07/24/16 16:19 97 40 07/24/16 16:00 70 07/24/16 16:00 98.9 86 18 184/92 99 07/24/16 12:00 70 07/24/16 12:00 99.9 87 18 176/85 100 07/24/16 11:12 97 40 07/24/16 08:00 100 Mechanical Ventilator 50 07/24/16 08:00 98.9 86 18 180/85 100 07/24/16 08:00 86 07/24/16 08:00 70 07/24/16 07:34 99 50 07/24/16 04:11 100 70 07/24/16 04:00 98.8 80 28 177/83 100 07/24/16 04:00 70 07/24/16 00:49 99 80 07/24/16 00:00 98.8 80 18 166/83 99 07/24/16 00:00 80 07/23/16 22:48 100 90 07/23/16 20:47 96 07/23/16 20:00 77 07/23/16 20:00 98.8 72 16 129/72 98 07/23/16 19:20 94 100 07/23/16 19:10 15.00 100 07/23/16 19:00 100 Mechanical Ventilator 100 Objective Radiology Results Last 48 hours Impressions Chest X-Ray 07/23/161999 Signed Impressions: Service Date/Time: Saturday, July 23, 2016 20:11 - CONCLUSION: 1. Left IJ line tip in superior vena cava without pneumothorax. George Choi MD Head CT 07/23/16 0000 Signed Impressions: Service Date/Time: Saturday, July 23, 2016 20:54 - CONCLUSION: Normal examination for a patient of this age. No significant change has occurred. George Choi MD Chest X-Ray 07/23/16 0000 Signed Impressions: Service Date/Time: Saturday, July 23, 2016 19:32 - CONCLUSION: 1. Bilateral mostly basilar airspace consolidation. Endotracheal tube in satisfactory position. No pneumothorax. George Choi MD Chest X-Ray 07/23/16 0000 Signed Impressions: Service Date/Time: Saturday, July 23, 2016 12:26 - CONCLUSION: 1. No extubation and removal of nasogastric tube. 2. Alveolar opacities remain in both lungs. 3. Right costophrenic angle appears blunted. Grady Hale MD Micro and Labs Laboratory Tests Test 07/23/16 07/23/16 07/23/16 07/23/16 21:30 22:23 23:45 23:55 White Blood Count 7.2 Red Blood Count 3.72 Hemoglobin 8.5 Hematocrit 26.9 Mean Corpuscular Volume 72.4 Mean Corpuscular Hemoglobin 22.9 Mean Corpuscular Hemoglobin 31.6 Concent Red Cell Distribution Width 18.6 Platelet Count 161 Mean Platelet Volume 9.7 Neutrophils (%) (Auto) 93.8 Lymphocytes (%) (Auto) 1.1 Monocytes (%) (Auto) 3.4 Eosinophils (%) (Auto) 1.3 Basophils (%) (Auto) 0.4 Neutrophils # (Auto) 6.8 Lymphocytes # (Auto) 0.1 Monocytes # (Auto) 0.2 Eosinophils # (Auto) 0.1 Basophils # (Auto) 0.0 CBC Comment AUTO DIFF Differential Comment AUTO DIFF CONFIRMED Platelet Estimate NORMAL Platelet Morphology Comment NORMAL Prothrombin Time 13.3 Prothromb Time International 1.2 Ratio Activated Partial 25.5 Thromboplast Time Fibrinogen 257 Sodium Level 139 Potassium Level 3.7 Chloride Level 105 Carbon Dioxide Level 26.6 Anion Gap 7 Blood Urea Nitrogen 46 Creatinine 3.77 Estimat Glomerular Filtration 13 Rate Random Glucose 141 Lactic Acid Level 1.1 Calcium Level 7.6 Phosphorus Level 5.1 Total Bilirubin 0.5 Aspartate Amino Transf 19 (AST/SGOT) Alanine Aminotransferase 14 (ALT/SGPT) Alkaline Phosphatase 113 Total Creatine Kinase 120 Troponin I 0.08 Total Protein 6.2 Albumin 3.3 Blood Gas Puncture Site RT RADIAL Blood Gas Patient Temperature 98.6 Blood Gas HCO3 23 Blood Gas Base Excess -3.5 Blood Gas Oxygen Saturation 97 Arterial Blood pH 7.25 Arterial Blood Partial 54 Pressure CO2 Arterial Blood Partial 140 Pressure O2 Arterial Blood Oxygen Content 12.8 Arterial Blood 1.1 Carboxyhemoglobin Arterial Blood Methemoglobin 0.7 Blood Gas Hemoglobin 9.2 Oxygen Delivery Device VENTILATOR Blood Gas Ventilator Setting PRVC/AC Blood Gas Inspired Oxygen 100 Urine Color YELLOW Urine Turbidity CLOUDY Urine pH 6.0 Urine Specific [place] 1.024 Urine Protein GREATER THAN 600 Urine Glucose (UA) 150 Urine Ketones NEG Urine Occult Blood MOD Urine Nitrite NEG Urine Bilirubin NEG Urine Urobilinogen LESS THAN 2.0 Urine Leukocyte Esterase TRACE Urine RBC 95 Urine WBC 52 Urine WBC Clumps FEW Urine Squamous Epithelial 5 Cells Urine Transitional Epithelial <1 Cells Urine Renal Epithelial Cells 1 Urine Bacteria OCC Urine Mucus FEW Urine Yeast (Budding) FEW Microscopic Urinalysis Comment CATH-CULTURE IND Urine Random Sodium 23 Test 07/24/16 04:45 White Blood Count 7.3 Red Blood Count 4.10 Hemoglobin 9.2 Hematocrit 29.4 Mean Corpuscular Volume 71.8 Mean Corpuscular Hemoglobin 22.4 Mean Corpuscular Hemoglobin 31.2 Concent Red Cell Distribution Width 18.6 Platelet Count 175 Mean Platelet Volume 9.7 Neutrophils (%) (Auto) 88.3 Lymphocytes (%) (Auto) 2.9 Monocytes (%) (Auto) 7.7 Eosinophils (%) (Auto) 0.8 Basophils (%) (Auto) 0.3 Neutrophils # (Auto) 6.5 Lymphocytes # (Auto) 0.2 Monocytes # (Auto) 0.6 Eosinophils # (Auto) 0.1 Basophils # (Auto) 0.0 CBC Comment AUTO DIFF Differential Total Cells 100 Counted Neutrophils % (Manual) 83 Band Neutrophils % 10 Lymphocytes % 1 Monocytes % 5 Eosinophils % 1 Neutrophils # (Manual) 6.8 Differential Comment FINAL DIFF MANUAL Platelet Estimate NORMAL Platelet Morphology Comment NORMAL Lactic Acid Level 0.8 Phosphorus Level 4.2 Magnesium Level 2.0 Date/Time Procedure Status Source Growth 07/24/16 04:07 Aerobic Blood Culture Received Blood Peripheral Pending 07/24/16 04:07 Anaerobic Blood Culture Received Blood Peripheral Pending 07/23/16 23:45 Urine Culture Received Urine Catheterized Urine Pending 07/23/16 23:45 Gram Stain - Final Resulted Sputum Endotracheal 07/23/16 23:45 Sputum Culture Resulted Sputum Endotracheal Pending 07/20/16 16:11 Urine Culture - Final Complete Urine Catheterized Urine NO GROWTH IN 48 HOURS. Chip Estes MD Jul 24, 2016 18:13
--- NOTE | 2016-07-24 19:13 | HHI.PR ---
Subjective Remarks Was Coded last night . Possible Resp arrest and was resuscitated. Now on the vent , FIO2 40 %. No response to commands. Objective Vital Signs Date Time Temp Pulse Resp B/P Pulse Ox O2 Delivery O2 Flow Rate FiO2 07/24/16 16:19 97 40 07/24/16 16:00 70 07/24/16 16:00 98.9 86 18 184/92 99 07/24/16 12:00 70 07/24/16 12:00 99.9 87 18 176/85 100 07/24/16 11:12 97 40 07/24/16 08:00 100 Mechanical Ventilator 50 07/24/16 08:00 98.9 86 18 180/85 100 07/24/16 08:00 86 07/24/16 08:00 70 07/24/16 07:34 99 50 07/24/16 04:11 100 70 07/24/16 04:00 98.8 80 28 177/83 100 07/24/16 04:00 70 07/24/16 00:49 99 80 07/24/16 00:00 98.8 80 18 166/83 99 07/24/16 00:00 80 07/23/16 22:48 100 90 07/23/16 20:47 96 07/23/16 20:00 77 07/23/16 20:00 98.8 72 16 129/72 98 07/23/16 19:20 94 100 07/23/16 19:10 15.00 100 I/O 07/23/16 07/23/16 07/23/16 07/24/16 07/24/16 07/24/16 07:00 15:00 23:00 07:00 15:00 23:00 Intake Total 720 ml 720 ml 300 ml 730 ml 1116 ml Output Total 400 ml 725 ml 725 ml 1600 ml Balance 320 ml -5 ml 300 ml 5 ml -484 ml Intake Oral 720 ml 720 ml IV Total 300 ml 730 ml 896 ml Albumin 100 ml Tube Irrigant 120 ml Output Urine Total 400 ml 725 ml 625 ml 1600 ml Gastric Drainage Total 100 ml # Bowel Movements 0 2 1 1 Result Diagram: 07/24/16 0445 07/23/162129 Objective Remarks General: This is a very obese middle-aged lady who is intubated. HEENT: Head normocephalic. Pupils are reactive and equal. Tongue is moist. Throat is mildly clear. Nasal mucosa edematous. Neck: Supple. No lymphadenopathy. Mild venous distension at 45 degrees. Trachea midline. Chest: Distant breath sounds with wheezes bilaterally, prolonged expirations, crackles heard at the lung bases. Heart: The heart sounds are irregular. S1 and S2. No definite murmur. No S3. Abdomen: Soft, protuberant. No mass, no organomegaly or tenderness. Bowel sounds are active. Extremities: Decreased peripheral pulses. 2+ leg edema. Neurologic: Not responsive. Cranial nerves not tested. Rectal: Exam deferred. Skin: Scaly, dry and warm. Assessment and Plan Assessment and Plan . IMPRESSION 1. CHF with acute exacerbation. 2. Possible obstructive sleep apnea syndrome. 3. Hypertension. 4. Elevated troponin. 5. Diabetes mellitus type 2. 6. S/P respiratory Arrest. Plan : 1. Vent support and Wean to CPAP as tolerated. 2. EEG ,CT brain in am. 3. Nebs qid , duoneb. 4. Tube feeds at 40 Cc Glucerna. 5. CXR , CBC,BMP in am. 6. Hold sedation. 7. Cont Antibiotics. Sheela Lau MD Jul 24, 2016 19:13
[2016-07-24] MEDS: ATORVASTATIN 80 MG TAB PO SCH (19:39)
--- NOTE | 2016-07-24 22:12 | EKG ---
Date Performed: 07/23/2016 Time Performed: 21:24:51 PTAGE: 50 years EKG: Sinus rhythm POOR R WAVE PROGRESSION POSSIBLE INFERIOR MYOCARDIAL INFARCTION , PROBABLY OLD BORDERLINE ECG PREVIOUS TRACING : 07/16/2016 06.51 Compared to the previous tracing, previously no R wave prog ression, now late transition DOCTOR: Juancho Choudhury Interpretating Date/Time 07/24/2016 22:10:31
[2016-07-25] VITALS (12 sets, daily range): BP systolic 164–183; BP diastolic 83–105; PULSE 60–83; RESP 18–23; TEMP 97.7–99.3; O2SAT 96–99
[2016-07-25] MEDS: RESP: ALBUTEROL 2.5 MG/IPRATROPIUM 0.5 MG NEB (SCH) NEB ×7 (00:03→23:42)
[2016-07-25] MEDS: PROPOFOL 1000 MG/100 ML INJ 100 ML IV SCH ×5 (03:11→16:00)
[2016-07-25] MEDS: CHLORHEXIDINE GLUCONATE 2 % 1 PACK (2 CLOTHS) TOP SCH (03:11)
[2016-07-25] MEDS: NITROGLYCERIN 2% OINT 1 GM PACKET TOPICAL PRN ×2 (04:48→20:24)
[2016-07-25] MEDS: INSULIN NovoLIN REGULAR SUPPLEMENTAL SCALE SQ SCH ×4 (04:49→23:00)
[2016-07-25] MEDS: NIFEdipine 20 MG CAP PO SCH ×3 (04:49→20:50)
[2016-07-25 05:06] LABS: AUTOMATED NEUTROPHIL # 4.9 TH/MM3 (1.8-7.7); BASOPHIL % 0.6 % (0.0-2.0); EOSINOPHIL # 0.1 TH/MM3 (0-0.4); EOSINOPHIL % 2.3 % (0.0-4.0); HEMATOCRIT 27.7 % (35.0-46.0); LYMPH % 12.6 % (9.0-44.0); LYMPHOCYTE # 0.8 TH/MM3 (1.0-4.8); MEAN CELL VOLUME 70.4 FL (80.0-100.0); MEAN CORPUSCULAR HEMOGLOBIN 22.4 PG (27.0-34.0); MEAN CORPUSCULAR HGB CONC 31.9 % (32.0-36.0); MONO % 10.7 % (0.0-8.0); NEUT % 73.8 % (16.0-70.0); PLATELET COUNT 181 TH/MM3 (150-450); RED BLOOD COUNT 3.93 MIL/MM3 (4.00-5.30); WHITE BLOOD COUNT 6.6 TH/MM3 (4.0-11.0)
[2016-07-25 05:08] LABS: HEMO FLAGS AUTO DIFF
[2016-07-25 07:12] LABS: PLATELET ESTIMATE SMEAR NORMAL (NORMAL); PLATELET MORPHOLOGY NORMAL (NORMAL); SCAN/DIFF AUTO DIFF CONFIRMED
[2016-07-25] MEDS: CHLORHEXIDINE 0.12% (ORAL KIT) 15 ML CUP MT SCH ×4 (07:55→20:26)
[2016-07-25] MEDS: ALBUMIN HUMAN 25% 25 GM/100 ML BAGP IV SCH ×2 (07:58→16:00)
[2016-07-25] MEDS: FERROUS SULFATE 325 MG (65 MG ELEMENTAL IRON) TAB PO SCH ×2 (09:00→20:10)
[2016-07-25] MEDS: SODIUM CHLOR 0.9% 1000 ML INJ 1,000 ML IV SCH ×2 (09:00→20:28)
[2016-07-25] MEDS: ASPIRIN EC 81 MG TABEC PO SCH (09:00)
[2016-07-25] MEDS: HEPARIN SODIUM - SQ 10,000 UNITS/ML VIAL SQ SCH ×2 (09:07→20:25)
[2016-07-25] MEDS: LINEZOLID 600 MG PREMIX 300 ML IV SCH ×2 (09:07→20:28)
[2016-07-25] MEDS: CEFEPIME INJ 2,000 MG in SODIUM CHLORIDE 0.9% INJ 100 ML IV SCH (09:07)
[2016-07-25] MEDS: MUPIROCIN 2% OINT 1 APPLIC/GM SYR EACH NARE SCH ×2 (09:08→20:24)
[2016-07-25] MEDS: CARVEDILOL 12.5 MG TAB PO SCH ×2 (09:08→20:25)
[2016-07-25] MEDS: hydrALAZINE HCL 50 MG TAB PO SCH ×3 (09:08→18:00)
[2016-07-25] MEDS: LISINOPRIL 20 MG TAB PO SCH (09:08)
[2016-07-25] MEDS: PANTOPRAZOLE SODIUM 40 MG VIAL IV SCH (09:08)
[2016-07-25] MEDS: BUMETANIDE INJ 1 MG/4 ML VIAL IV PUSH SCH ×2 (09:08→18:00)
[2016-07-25] MEDS: GABAPENTIN 300 MG CAP PO SCH (09:09)
[2016-07-25] MEDS: SODIUM CHLORIDE 0.9% FLUSH 5 ML FLUSH IVF SCH ×3 (11:34→20:28)
--- NOTE | 2016-07-25 12:07 | PD.CARD.PN ---
Subjective Subjective Remarks Sedated on the vent, per the nurse was following commands last night Objective Medications Current Medications Medications (Trade) Dose Ordered Sig/Christa Route Start Time Stop Time Status Last Admin (Narcan Inj) 0.4 mg UNSCH PRN IV 07/15/16 20:45 (Bumex Inj) 1 mg BID@09,18 IV PUSH 07/16/16 09:00 07/25/16 09:08 (Elavil) 50 mg HS PO 07/16/16 21:00 Hold 07/21/16 19:33 (Ecotrin Ec) 81 mg DAILY PO 07/16/16 09:00 07/25/16 09:00 (Lipitor) 80 mg HS PO 07/16/16 21:00 07/24/16 19:39 (Coreg) 25 mg BID PO 07/16/16 09:00 07/25/16 09:08 (Ferrous Sulfate) 325 mg BID PO 07/16/16 09:00 07/24/16 19:39 (Apresoline) 50 mg TID PO 07/16/16 09:00 07/25/16 09:08 (Albumin 25% Inj) 25 gm BID@ IV 07/16/16 17:00 07/25/16 07:58 (Prinivil) 20 mg DAILY PO 07/17/16 09:00 07/25/16 09:08 (Grant 5-325 Mg) 1 tab Q6H PRN PO 07/16/16 23:30 07/23/16 16:58 (Zofran Inj) 4 mg Q6HR PRN IV PUSH 07/18/16 06:00 07/18/16 05:57 (NS Flush) 2 ml UNSCH PRN IVF 07/18/16 13:45 (NS Flush) 2 ml BID IVF 07/18/16 21:00 07/25/16 11:34 (Peridex 0.12% Liq) 15 ml BID@08,20 MT 07/18/16 20:00 07/25/16 07:55 (Protonix Inj) 40 mg DAILY IV 07/19/16 09:00 07/25/16 09:08 Miscellaneous Information 1 Q361D XX 07/18/16 13:45 07/18/16 13:45 (Chlorhexidine 2% Cloth) Taper DAILY@04 TOP 07/19/16 04:00 07/15/17 03:59 07/25/16 03:11 Chlorhexidine Gluconate 3 pack 3 pack UNSCH PRN TOP 07/18/16 13:45 (NS 1000 ml Inj) 1,000 ml @ 0 mls/hr Q0M PRN IV 07/19/16 12:15 Heparin Sodium (Porcine) 8000 units 8,000 units UNSCH PRN IVF 07/19/16 12:15 (NS 1000 ml Inj) 1,000 ml @ 0 mls/hr Q0M PRN IV 07/19/16 12:15 (Mannitol Inj) 12.5 gm UNSCH PRN IV 07/19/16 12:15 (Albumin 25% Inj) 25 gm UNSCH PRN IV 07/19/16 12:15 (NS Flush) 5 ml UNSCH PRN IVF 07/19/16 12:15 (Heparin Inj) UNSCH PRN .XX 07/19/16 12:15 (Gentamicin (Dialysis) Inj) 20 mg UNSCH PRN IV 07/19/16 12:15 (Zofran Inj) 4 mg UNSCH PRN IV 07/19/16 12:15 (Tylenol) 650 mg UNSCH PRN PO 07/19/16 12:15 07/20/16 20:41 (Benadryl) 25 mg UNSCH PRN PO 07/19/16 12:15 (Nitrostat Sl) 0.4 mg UNSCH PRN SL 07/19/16 12:15 (Catapres) 0.1 mg UNSCH PRN PO 07/19/16 12:15 07/24/16 18:07 (Epogen Inj) 4,000 units UNSCH PRN IV 07/19/16 12:15 (Gelfoam 12 Mm/7 Mm Top) 1 foam UNSCH PRN TOP 07/19/16 12:15 (Heparin Inj) 5,000 units Q12HR SQ 07/20/16 21:00 07/25/16 09:07 (D50w (Vial) Inj) 25 ml UNSCH PRN IV PUSH 07/20/16 09:45 (Glucagon Inj) 1 mg UNSCH PRN OTHER 07/20/16 09:45 (NovoLIN R SUPPLEMENTAL SCALE) 1 Q6H SQ 07/20/16 11:00 07/23/16 17:00 (Neurontin) 300 mg DAILY PO 07/22/16 09:00 07/25/16 09:09 (Trandate Inj) 10 mg Q4H PRN IV PUSH 07/22/16 04:45 07/24/16 10:08 (Apresoline Inj) 10 mg Q4H PRN IV PUSH 07/22/16 05:30 07/25/16 00:00 (Mycostatin Powder) 1 applic Q12HR PRN TOPICAL 07/22/16 16:00 (Procardia) 20 mg Q8HR PO 07/23/16 14:00 07/25/16 04:49 Chlorhexidine Gluconate 15 ml 15 ml BID@08,20 MT 07/23/16 20:00 07/25/16 08:28 Propofol 100 ml @ 0 mls/hr TITRATE IV 07/23/16 19:30 07/25/16 11:33 (fentaNYL DRIP) 250 ml @ 0 mls/hr TITRATE IV 07/23/16 19:30 07/24/16 00:59 (Bactroban Nasal 2% Oint) 1 applic Taper BID EACH NARE 07/23/16 21:00 07/19/17 20:59 07/25/16 09:08 (NS Flush) DAILY IVF 07/23/16 20:00 07/25/16 11:34 IV Flush UNSCH PRN IVF 07/23/16 20:00 Sodium Chloride 1,000 ml @ 84 mls/hr [id number] IV 07/23/16 20:45 07/25/16 09:00 Cefepime HCl 2000 mg/Sodium Chloride 100 ml @ 200 mls/hr DAILY IV 07/23/16 22:00 07/25/16 09:07 (Zyvox 600 Mg Premix) 300 ml @ 300 mls/hr Q12HR IV 07/24/16 11:00 07/25/16 09:07 (Nitroglycerin 2% Oint) 2 inch Q6H PRN TOPICAL 07/25/16 04:15 07/25/16 04:48 Vital Signs / I&O Vital Signs Date Time Temp Pulse Resp B/P Pulse Ox O2 Delivery O2 Flow Rate FiO2 07/25/16 09:54 97 40 07/25/16 09:54 97 Ventilator 40 07/25/16 08:00 97.7 83 20 164/83 99 07/25/16 08:00 83 07/25/16 08:00 40 07/25/16 08:00 100 Mechanical Ventilator 40 07/25/16 04:00 98.1 69 23 175/83 98 07/25/16 04:00 98 40 07/25/16 04:00 40 07/25/16 00:03 98 40 07/25/16 00:00 99.1 81 18 182/88 98 07/25/16 00:00 40 07/24/16 20:00 40 07/24/16 20:00 100.7 85 18 182/88 97 07/24/16 20:00 85 07/24/16 19:36 98 40 07/24/16 19:00 98 Mechanical Ventilator 40 07/24/16 16:19 97 40 07/24/16 16:00 70 07/24/16 16:00 98.9 86 18 184/92 99 I/O 07/24/16 07/24/16 07/24/16 07/25/16 07/25/16 07/25/16 07:00 15:00 23:00 07:00 15:00 23:00 Intake Total 730 ml 1116 ml 598 ml 279 ml Output Total 725 ml 1600 ml 975 ml 750 ml Balance 5 ml -484 ml -377 ml -471 ml IV Total 730 ml 896 ml 448 ml 229 ml Albumin 100 ml 100 ml Tube Irrigant 120 ml 50 ml 50 ml Output Urine Total 625 ml 1600 ml 900 ml 750 ml Gastric Drainage Total 100 ml 75 ml 0 ml # Bowel Movements 1 1 Physical Exam GENERAL: Sedated on the vent SKIN: Warm and dry. HEAD: Atraumatic. Normocephalic. EYES: Pupils equal and round. No scleral icterus. No injection or drainage. ENT: No nasal bleeding or discharge. Mucous membranes pink and moist. NECK: Trachea midline. No JVD. CARDIOVASCULAR: Regular rate and rhythm. RESPIRATORY: No accessory muscle use. Decreased breath sounds bilaterally GASTROINTESTINAL: Abdomen soft, non-tender, nondistended. Hepatic and splenic margins not palpable. MUSCULOSKELETAL: 2+ pitting edema bilaterally NEUROLOGICAL: Sedated on the vent Laboratory Laboratory Tests Test 07/25/16 04:30 White Blood Count 6.6 TH/MM3 Red Blood Count 3.93 MIL/MM3 Hemoglobin 8.8 GM/DL Hematocrit 27.7 % Mean Corpuscular Volume 70.4 FL Mean Corpuscular Hemoglobin 22.4 PG Mean Corpuscular Hemoglobin 31.9 % Concent Red Cell Distribution Width 19.0 % Platelet Count 181 TH/MM3 Mean Platelet Volume 10.0 FL Neutrophils (%) (Auto) 73.8 % Lymphocytes (%) (Auto) 12.6 % Monocytes (%) (Auto) 10.7 % Eosinophils (%) (Auto) 2.3 % Basophils (%) (Auto) 0.6 % Neutrophils # (Auto) 4.9 TH/MM3 Lymphocytes # (Auto) 0.8 TH/MM3 Monocytes # (Auto) 0.7 TH/MM3 Eosinophils # (Auto) 0.1 TH/MM3 Basophils # (Auto) 0.0 TH/MM3 CBC Comment AUTO DIFF Differential Comment AUTO DIFF CONFIRMED Platelet Estimate NORMAL Platelet Morphology Comment NORMAL Assessment and Plan Problem List: (1) Acute exacerbation of CHF (congestive heart failure) (2) Stage 4 chronic kidney disease (3) HTN (hypertension) (4) Diabetes (5) Elevated troponin (6) Stented coronary artery (7) Respiratory failure Assessment and Plan 1) Admitted with increased edema and SOB, denies CP... ran out of diuretic at home for 2 weeks, unable to get in to see primary doctor (needs a new one) 2) Continue gentle diuresis as possible 3) Minimally elevated troponin, most likely due to fluid overloaded state, HTN episode, CKD... previous stress test showing mild small lateral wall defect, offered diagnostic cath with a plan for staged intervention if needed, wants to continue medical management 4) Not started on dialysis due to resp distress/arrest requiring intubation during Vascath placement, creatinine stabilizing 5) Still quite hypertensive on multiple medications, snoring every time I enter the room, should be worked up for PALMER 6) Norvasc changed to Procardia for HTN 7) Vent per critical care, but concern for chronic CO2 retaining once off the vent, would avoid pain/anxiety meds Problem Qualifiers (1) Acute exacerbation of CHF (congestive heart failure): Qualified Code: I50.9 - Acute on chronic congestive heart failure, unspecified congestive heart failure type (2) HTN (hypertension): Qualified Code: I10 - Essential hypertension (3) Diabetes: (4) Respiratory failure: Qualified Code: J96.01 - Acute respiratory failure with hypoxia Juancho Choudhury DO Jul 25, 2016 12:07
[2016-07-25] MEDS: cloNIDine HCL 0.1 MG TAB PO PRN (12:13)
--- NOTE | 2016-07-25 13:21 | HHI.IDPN ---
Subjective Subjective Remarks Notes reviewed Temps ok Sedated on the vent Antibiotics Cefepime Zyvox Lines LIJ TLC Past Medical History CHF last echo 08/01/15 EF 50% Depression HTN DM Neuropathy Anemia CKD Past Surgical History Cardiac Cath 2015 Allergies: Coded Allergies: Lyrica (Verified Allergy, Severe, Anaphylaxis, 07/15/16) *MDRO Multi-Drug Resistant Organism (Verified Adverse Reaction, Unknown, ) MRSA (sputum)-07/20/16 MRSA PCR Screen POSITIVE - 07/18/2016 Objective . Vital Signs Date Time Temp Pulse Resp B/P Pulse Ox O2 Delivery O2 Flow Rate FiO2 07/25/16 12:20 98 40 07/25/16 09:54 97 40 07/25/16 09:54 97 Ventilator 40 07/25/16 08:00 97.7 83 20 164/83 99 07/25/16 08:00 83 07/25/16 08:00 40 07/25/16 08:00 100 Mechanical Ventilator 40 07/25/16 04:00 98.1 69 23 175/83 98 07/25/16 04:00 98 40 07/25/16 04:00 40 07/25/16 00:03 98 40 07/25/16 00:00 99.1 81 18 182/88 98 07/25/16 00:00 40 07/24/16 20:00 40 07/24/16 20:00 100.7 85 18 182/88 97 07/24/16 20:00 85 07/24/16 19:36 98 40 07/24/16 19:00 98 Mechanical Ventilator 40 07/24/16 16:19 97 40 07/24/16 16:00 70 07/24/16 16:00 98.9 86 18 184/92 99 07/24/16 07/24/16 07/25/16 15:00 23:00 07:00 Intake Total 1116 ml 598 ml 279 ml Output Total 1600 ml 975 ml 750 ml Balance -484 ml -377 ml -471 ml IV Total 896 ml 448 ml 229 ml Albumin 100 ml 100 ml Tube Irrigant 120 ml 50 ml 50 ml Output Urine Total 1600 ml 900 ml 750 ml Gastric Drainage Total 75 ml 0 ml # Bowel Movements 1 . Laboratory Tests Test 07/23/16 07/24/16 07/25/16 21:30 04:45 04:30 White Blood Count 7.2 TH/MM3 7.3 TH/MM3 6.6 TH/MM3 Red Blood Count 3.72 MIL/MM3 4.10 MIL/MM3 3.93 MIL/MM3 Hemoglobin 8.5 GM/DL 9.2 GM/DL 8.8 GM/DL Hematocrit 26.9 % 29.4 % 27.7 % Mean Corpuscular Volume 72.4 FL 71.8 FL 70.4 FL Mean Corpuscular Hemoglobin 22.9 PG 22.4 PG 22.4 PG Mean Corpuscular Hemoglobin 31.6 % 31.2 % 31.9 % Concent Red Cell Distribution Width 18.6 % 18.6 % 19.0 % Platelet Count 161 TH/MM3 175 TH/MM3 181 TH/MM3 Mean Platelet Volume 9.7 FL 9.7 FL 10.0 FL Neutrophils (%) (Auto) 93.8 % 88.3 % 73.8 % Lymphocytes (%) (Auto) 1.1 % 2.9 % 12.6 % Monocytes (%) (Auto) 3.4 % 7.7 % 10.7 % Eosinophils (%) (Auto) 1.3 % 0.8 % 2.3 % Basophils (%) (Auto) 0.4 % 0.3 % 0.6 % Neutrophils # (Auto) 6.8 TH/MM3 6.5 TH/MM3 4.9 TH/MM3 Lymphocytes # (Auto) 0.1 TH/MM3 0.2 TH/MM3 0.8 TH/MM3 Monocytes # (Auto) 0.2 TH/MM3 0.6 TH/MM3 0.7 TH/MM3 Eosinophils # (Auto) 0.1 TH/MM3 0.1 TH/MM3 0.1 TH/MM3 Basophils # (Auto) 0.0 TH/MM3 0.0 TH/MM3 0.0 TH/MM3 CBC Comment AUTO DIFF AUTO DIFF AUTO DIFF Differential Comment AUTO DIFF FINAL DIFF AUTO DIFF CONFIRMED MANUAL CONFIRMED Platelet Estimate NORMAL NORMAL NORMAL Platelet Morphology Comment NORMAL NORMAL NORMAL Differential Total Cells 100 Counted Neutrophils % (Manual) 83 % Band Neutrophils % 10 % Lymphocytes % 1 % Monocytes % 5 % Eosinophils % 1 % Neutrophils # (Manual) 6.8 TH/MM3 Laboratory Tests Test 07/23/16 07/24/16 21:30 04:45 Sodium Level 139 MEQ/L Potassium Level 3.7 MEQ/L Chloride Level 105 MEQ/L Carbon Dioxide Level 26.6 MEQ/L Anion Gap 7 MEQ/L Blood Urea Nitrogen 46 MG/DL Creatinine 3.77 MG/DL Estimat Glomerular Filtration 13 ML/MIN Rate Random Glucose 141 MG/DL Lactic Acid Level 1.1 mmol/L 0.8 mmol/L Calcium Level 7.6 MG/DL Phosphorus Level 5.1 MG/DL 4.2 MG/DL Total Bilirubin 0.5 MG/DL Aspartate Amino Transf 19 U/L (AST/SGOT) Alanine Aminotransferase 14 U/L (ALT/SGPT) Alkaline Phosphatase 113 U/L Total Creatine Kinase 120 U/L Troponin I 0.08 NG/ML Total Protein 6.2 GM/DL Albumin 3.3 GM/DL Magnesium Level 2.0 MG/DL Microbiology Date/Time Procedure Status Source Growth 07/23/16 23:45 Gram Stain - Final Resulted Sputum Endotracheal 07/23/16 23:45 Sputum Culture - Preliminary Resulted Sputum Endotracheal RARE GROWTH NORMAL RESPIRATORY CARINA ... 07/23/16 23:45 Urine Culture - Preliminary Resulted Urine Catheterized Urine NO GROWTH IN 24 HOURS. 07/24/16 04:07 Aerobic Blood Culture - Preliminary Resulted Blood Peripheral NO GROWTH IN 1 DAY 07/24/16 04:07 Anaerobic Blood Culture - Preliminary Resulted Blood Peripheral NO GROWTH IN 1 DAY 07/25/16 04:05 Aerobic Blood Culture Received Blood Peripheral Pending 07/25/16 04:05 Anaerobic Blood Culture Received Blood Peripheral Pending Imaging Chest X-Ray 07/23/161999 Signed Impressions: Service Date/Time: Saturday, July 23, 2016 20:11 - CONCLUSION: 1. Left IJ line tip in superior vena cava without pneumothorax. George Choi MD Head CT 07/23/16 Signed Impressions: Service Date/Time: Saturday, July 23, 2016 20:54 - CONCLUSION: Normal examination for a patient of this age. No significant change has occurred. George Choi MD Consultation 07/19/16 Signed Impressions: Service Date/Time: Tuesday, July 19, 2016 00:00 - CONCLUSION: Procedure not performed secondary to cardiopulmonary arrest. Emre Daniel MD Brain MRI 07/18/16 Signed Impressions: Service Date/Time: July 17:15 - CONCLUSION: White matter hyperintensities prominent for age indicating possible demyelinating disorder. No evidence of acute infarct. Eliezer Shay MD Abdomen X-Ray 07/18/16 0000 Signed Impressions: Service Date/Time: July 15:39 - CONCLUSION: No evidence of obstruction. No MRI incompatible foreign body is identified. Eliezer Shay MD Physical Exam GENERAL: Intubated, sedated, not in any respiratory distress. SKIN: Cool skin, dry, no generalized rash or ecchymosis. No embolic lesions noted. HEENT: [place] conjunctivae. No scleral icterus. NG tube in place, and it has light green drainage. Endotracheal tube is in the mouth. Has moist oral mucosa. NECK: Trachea midline. No JVD or lymphadenopathy. Supple, no nuchal rigidity. Left IJ central line in place with no evidence of infection. CARDIOVASCULAR: Regular rate and rhythm without murmurs, gallops, or rubs. RESPIRATORY: Coarse breath sounds bilaterally, and equal. Decreased breath sounds at the bases. GASTROINTESTINAL: Abdomen soft, obese, nondistended, no reaction to deep palpation. Bowel sounds are present and normoactive. No hepato-splenomegaly, or palpable masses. No guarding. MUSCULOSKELETAL: Extremities without clubbing, cyanosis, or edema. NEUROLOGICAL: Sedated. No Babinski or ankle clonus : Calderon catheter in place, looks clear LINE: Left IJ central line with no evidence of infection. PIV with no evidence of infection Assessment & Plan Remarks IMPRESSION Bilateral infiltrates, due to pulmonary edema, now with HCAP - C/S with MRSA Recurrent arrest felt to be due to primary respiratory event Respiratory failure , recurrent post arrest Possibly has PALMER CHF Obesity CKD (+) UA RECOMMENDATION Continue Cefepime Change Clinda to Zyvox - follow CBC Follow new C/S Monitor progress Polina Flores MD Jul 25, 2016 13:21
[2016-07-25] MEDS ORDERED: ATROPINE SULFATE 1 MG/10 ML SYRINGE ONE (16:22)
[2016-07-25] MEDS ORDERED: EPINEPHrine HCL (1:10,000) 1 MG/10 ML SYRINGE ONE (16:22)
[2016-07-25] MEDS ORDERED: LIDOCAINE HCL 2% 100 MG/5 ML SYRINGE ONE (16:23)
--- NOTE | 2016-07-25 17:51 | RADRPT ---
EXAM DATE/TIME: 07/25/2016 17:05 [facility] COMPARISON: MRI BRAIN W/O CONTRAST, July 18, 2016, 17:15. INDICATIONS : CVA. Follow up stroke. Altered mental status. MEDICAL HISTORY : Congestive heart failure. Coronary artery disease. SURGICAL HISTORY : Unknown. ENCOUNTER: Initial ACUITY: 4-6 days PAIN SCORE: Nonresponsive. LOCATION: Head. TECHNIQUE: Multiplanar, multisequence MRI of the brain was performed without contrast. FINDINGS: CEREBRUM: The ventricles are normal for age. No evidence of midline shift, mass lesion, hemorrhage or acute in farction. No extraaxial fluid collections are seen. The pituitary gland and suprasellar cistern are normal in configuration. WHITE MATTER: On the flair weighted images there are punctate areas of increased signal noted in the centrum semiov mariana and periventricular white matter. These are not significantly changed. POSTERIOR FOSSA: The cerebellum and brainstem are intact. The 4th ventricle is midline. The cerebellopontine angle is unremarkable. The cerebellar tonsils are normal in position. DIFFUSION IMAGING: No focal areas of restricted diffusion are seen. No evidence of acute infarction. EXTRACRANIAL: The visualized portions of the orbits and paranasal sinuses are unremarkable. Fluid and high signal i s now noted in the mastoid air cells bilaterally on the flair and T2-weighted sequences. CONCLUSION: 1. No acute hemorrhage, mass or infarction. 2. Scattered foci of increased signal noted most consistent with chronic small vessel ischemic change . This is not significantly changed. 3. Fluid and high signal is now noted in the mastoid air cells bilaterally consistent with mastoiditi s. Grady Hale MD on July 25, 2016 at 17:46 Board Certified Radiologist. This report was verified electronically.
--- NOTE | 2016-07-25 17:52 | HHI.CCPN ---
Subjective Remarks/Hospital Course 07/18: 50 y/o female with a history of chf, depression, htn, dm, and ckd presented to the ED on 07/15 with complaints of dyspnea, swelling in her lower extremities and a 50lb weight gain since last admission 06/03/16. Patient had gained 50 lbs in fluid from last admission. She presented with increased shortness of breath with intermittent chest pressure with no radiation or associated symptoms. She was admitted on 05/31/16 and diagnosed with CHF, discharged home on on Bumex. Patient states she recently ran out of meds and has not followed up with a doctor due to transportation issues. She is not from here and her pcp is 2 hours away and she does not want her kids to take off work to take her to appointments. She is hoping to move back in 2 weeks or so. She states she tried to call a jewellery designer to follow up but they required her records and she did not get them. Despite taking Bumex she states she has not had an increase in urination. Last admission 2d echo showed systolic dysfunction with EF 50%, she was seen by DR. Choudhury, and DR. Medley. Patient was admitted by hospitalist service. She was evaluated by Dr. Choudhury from cardiology who offered cardiac catheterization as patient did have an elevated troponin and previous abnormal stress test however she was concerned regarding ending up on hemodialysis so she refused. Patient was reportedly on nasal cannula earlier today however around 1:30 PM was noted to be lethargic and minimally responsive. Stroke alert was called. Head CT was negative for bleed. Recent had an ABG done which revealed pH of 7.0/PCO2 87/PO2 49. Critical care service was contacted by Dr. Mckeon. Both myself and Dr. Ott arrived at bedside. Patient was encephalopathic though arousable with painful stimuli occasional morning however not following commands. Her fingerstick glucose was in the 140s earlier. Decision was made to proceed with endotracheal intubation which was performed by Dr. Goff. A stat MRI brain was ordered to evaluate for CVA after discussion with Dr. Estes. 07/19: Awakens easily off sedation following commands this morning. On mechanical ventilation. MRI brain done yesterday did not show any acute event. 07/20 Patient was extubated yesterday went to IR for vascath placement and had resp arrest she was subsequently reintubated. Now sedated with Diprivan. Afebrile. MRI brain showed no evidence of acute infract. 07/21 Patient s/p extubation yesterday was given racemic Decadron 4mg IV x1 and racemic epi for ? stridor overnight placed on BIPAP 03/20 with 40% FIO2. ABG on BIPAP shows improvements in her resp acidosis with PH 7.30 and CO2: 48 from 57. Now of BIPAP and is on 6L oxygen. 07/22 No acute events overnight. Patient is on 4L oxygen with good sats. Afebrile. renal function improving with Cr: 3.22 and UO: 2850ml in 24 hrs Subjective 07/23 - CODE BLUE call today secondary to unresponsiveness. According to RN, patient received [place] at 5 PM. Not seen. Upon evaluation by RN patient was not breathing on nasal cannula. Received 1 mg of epinephrine and one ampule sodium bicarbonate. Intubated with 8.0 ET tube. ROSC after around 10 minutes. Transferred ISC. Occasionally taking large breaths otherwise unresponsive on the ventilator 07/24: Remains orally intubated on mechanical ventilation. Has not required any sedation since arrival to the ICU, remains encephalopathic/comatose. 07/25: Remains orally intubated on mechanical ventilation. Remains encephalopathic. Started on propofol for vent synchrony last night. Neurology following Objective Vital Signs Date Time Temp Pulse Resp B/P Pulse Ox O2 Delivery O2 Flow Rate FiO2 07/25/16 12:20 98 40 07/25/16 09:54 Ventilator 07/25/16 08:00 97.7 83 20 164/83 07/23/16 19:10 15.00 Intake and Output 07/24/16 07/24/16 07/25/16 08:00 16:00 00:00 Intake Total 730 ml 1116 ml 598 ml Output Total 725 ml 1600 ml 975 ml Balance 5 ml -484 ml -377 ml Result Diagram: 07/25/16 0430 07/23/16 2130 Imaging Last Impressions Chest X-Ray 07/23/16 0000 Signed Impressions: Service Date/Time: Saturday, July 23, 2016 12:26 - CONCLUSION: 1. No extubation and removal of nasogastric tube. 2. Alveolar opacities remain in both lungs. 3. Right costophrenic angle appears blunted. Grady Hale MD Consultation 07/19/16 0000 Signed Impressions: Service Date/Time: Tuesday, July 19, 2016 00:00 - CONCLUSION: Procedure not performed secondary to cardiopulmonary arrest. Emre Daniel MD Head CT 07/18/16 1237 Signed Impressions: Service Date/Time: July 12:43 - CONCLUSION: 1. No evidence of acute intracranial pathology. No masses are identified. Emre Daniel MD Brain MRI 07/18/16 0000 Signed Impressions: Service Date/Time: July 17:15 - CONCLUSION: White matter hyperintensities prominent for age indicating possible demyelinating disorder. No evidence of acute infarct. Eliezer Shay MD Abdomen X-Ray 07/18/16 0000 Signed Impressions: Service Date/Time: July 15:39 - CONCLUSION: No evidence of obstruction. No MRI incompatible foreign body is identified. Eliezer Shay MD Objective Remarks GENERAL: 50-year-old female, critically ill currently orotracheally intubated SKIN: Warm and dry. No rash HEAD: Normocephalic. EYES: No scleral icterus. No injection or drainage. NECK: Supple, trachea midline. No JVD or lymphadenopathy. CARDIOVASCULAR: RRR. S1, S2. No S4. Without murmur RESPIRATORY: On mechanical ventilation, Diminished due to body habitus. Breath sounds equal bilaterally. Scattered rhonchi. GASTROINTESTINAL: Abdomen soft, obese. Hypoactive bowel sounds MUSCULOSKELETAL: With nonpitting peripheral edema. Neuro: Comatose, orally intubated on mechanical ventilation Positive gag. Positive corneal reflex. Currently not withdrawing to noxious stimuli pain. Upgoing toes. Date of Insertion: Jul 23, 2016 Line: Central Venous Catheter Side: Left Location: Internal, Jugular A/P Assessment and Plan Neuro/Psych: Toxic metabolic encephalopathy/history CO2 retention History of depression Peripheral neuropathy Head CT negative for bleed Propofol for vent synchrony as needed. F/u EEG. Informed Dr. Estes regarding encephalopathy following cardiac arrest for neurology follow-up Acetaminophen for fever Baby aspirin 81 mg for now Holding Neurontin 300 mg 3 times a day/neuropathy medication Holding Elavil 50 mg at night for depression. 07/18 MRI brain: White matter hyperintensities prominent for age indicating possible demyelinating disorder. No evidence of acute infarct. 07/18 CT brain: No acute infarct 07/19 EEG: Mild- mod encephalopathy CV: Hypertension CHF - diastolic Non-STEMI KVO IV fluids Echocardiogram 05/21 revealed EF 50%. Mildly dilated ventricle. Diffuse hypokinesis. Follow-up limited echocardiogram ordered Currently on Coreg 25 twice a day, hydralazine 50 3 times a day a day, lisinopril 20 daily nifedipine 20 every 8 hours hypertension. At home on Norvasc 10 mg daily. This is been on hold while on nifedipine Continue atorvastatin 80 mg daily's for dyslipidemia. Continue diuresis Followed by cardiology. They believe troponin likely due to fluid overloaded state, HTN episode, CKD... previous stress test showing mild small lateral wall defect, offered diagnostic cath with a plan for staged intervention if needed Resp: Acute hypoxemic respiratory failure [facility] 16// Ventilator bundle Bronchodilator therapy every 4 hours and as needed Follow chest x-ray/ABG post intubation Clinically pickwickian/PALMER On intermittent home oxygen at home GI: Patient is currently nothing by mouth Protonix for GI prophylaxis Colace/as needed Senokot for bowel regimen : Calderon will be placed for accurate I's and output in critically ill patient Endo: Diabetes mellitus At home, patient is on Lantus 40 units daily and lispro 12 units twice a day. This is been held. Hold glipizide 2.5 mill grams daily. Sliding-scale insulin with Accu checks every 6 hours to maintain euglycemia. Renal: Acute on chronic kidney injury Nephrotic syndrome Followed by nephrology. No indication for current hemodialysis Tenuous Bumex to 1 mg IV twice a day. Gentle diuresis Greater than 10 g protein on urine studies. Likely accommodation of hypertension/diabetes. Heme: Anemia Currently on iron sulfate 325 by mouth twice a day/home medication. Follow-up post code CBC/coags ID: MRSA pneumonia Pertinent cultures / - sputum - MRSA Infectious disease consult for antibiotic management. On cefepime/Zyvox per ID Repeat blood cultures 2, sputum and urine now MSK: Morbid obesity Osteoporosis Holding Drisdol 50,000 units every Friday. Weight loss encouraged FEN: Replace electrolyte as clinically indicated Access - Left IJ CVL day 3 Prophylaxis - GI - Protonix - DVT - SCD/heparin Critical Care: The total critical care time was 40 minutes. Time to perform other separately billable procedures was not included in the critical care time. Lopez Reynaga MD Jul 25, 2016 17:52
--- NOTE | 2016-07-25 18:45 | HHI.PR ---
Review/Management Daily Summary doing better, intubated diprivan held this am and pt started following commands, moves all 4 limbs very mildly on request she gazes to right and left I don't think she had a neurologic event, will fiollow with an EEG as well otherwise prn neuro 07/24 10 minute code last evening after norco remains poorly responsive, some gaze preference to right ??right hemiparesis, ct negative eeg looks metabolic diffuse per dr Vazquez will monitor and plan on doing mri barin in am 07/25 seen shortly after mri brain which is negative for acute dx agitated when sedation held pupils equals and reactive eeg encephalopatic yesterday, tracing seen continue supportive medical care Subjective Subjective Comments intubated, on diprivan for vent management Active Medications Current Medications Medications (Trade) Dose Ordered Sig/Christa Route Start Time Stop Time Status Last Admin (Narcan Inj) 0.4 mg UNSCH PRN IV 07/15/16 20:45 (Bumex Inj) 1 mg BID@,18 IV PUSH 07/16/16 09:00 07/25/16 18:00 (Elavil) 50 mg HS PO 07/16/16 21:00 Hold 07/21/16 19:33 (Ecotrin Ec) 81 mg DAILY PO 07/16/16 09:00 07/25/16 09:00 (Lipitor) 80 mg HS PO 07/16/16 21:00 07/24/16 19:39 (Coreg) 25 mg BID PO 07/16/16 09:00 07/25/16 09:08 (Ferrous Sulfate) 325 mg BID PO 07/16/16 09:00 07/24/16 19:39 (Apresoline) 50 mg TID PO 07/16/16 09:00 07/25/16 18:00 (Albumin 25% Inj) 25 gm BID@, IV 07/16/16 17:00 07/25/16 16:00 (Prinivil) 20 mg DAILY PO 07/17/16 09:00 07/25/16 09:08 ([place] 5-325 Mg) 1 tab Q6H PRN PO 07/16/16 23:30 07/23/16 16:58 (Zofran Inj) 4 mg Q6HR PRN IV PUSH 07/18/16 06:00 07/18/16 05:57 (NS Flush) 2 ml UNSCH PRN IVF 07/18/16 13:45 (NS Flush) 2 ml BID IVF 07/18/16 21:00 07/25/16 11:34 (Peridex 0.12% Liq) 15 ml BID@08,20 MT 07/18/16 20:00 07/25/16 07:55 (Protonix Inj) 40 mg DAILY IV 07/19/16 09:00 07/25/16 09:08 Miscellaneous Information 1 Q361D XX 07/18/16 13:45 07/18/16 13:45 (Chlorhexidine 2% Cloth) Taper DAILY@04 TOP 07/19/16 04:00 07/15/17 03:59 07/25/16 03:11 Chlorhexidine Gluconate 3 pack 3 pack UNSCH PRN TOP 07/18/16 13:45 (NS 1000 ml Inj) 1,000 ml @ 0 mls/hr Q0M PRN IV 07/19/16 12:15 Heparin Sodium (Porcine) 8000 units 8,000 units UNSCH PRN IVF 07/19/16 12:15 (NS 1000 ml Inj) 1,000 ml @ 0 mls/hr Q0M PRN IV 07/19/16 12:15 (Mannitol Inj) 12.5 gm UNSCH PRN IV 07/19/16 12:15 (Albumin 25% Inj) 25 gm UNSCH PRN IV 07/19/16 12:15 (NS Flush) 5 ml UNSCH PRN IVF 07/19/16 12:15 (Heparin Inj) UNSCH PRN .XX 07/19/16 12:15 (Gentamicin (Dialysis) Inj) 20 mg UNSCH PRN IV 07/19/16 12:15 (Zofran Inj) 4 mg UNSCH PRN IV 07/19/16 12:15 (Tylenol) 650 mg UNSCH PRN PO 07/19/16 12:15 07/20/16 20:41 (Benadryl) 25 mg UNSCH PRN PO 07/19/16 12:15 (Nitrostat Sl) 0.4 mg UNSCH PRN SL 07/19/16 12:15 (Catapres) 0.1 mg UNSCH PRN PO 07/19/16 12:15 07/25/16 12:13 (Epogen Inj) 4,000 units UNSCH PRN IV 07/19/16 12:15 (Gelfoam 12 Mm/7 Mm Top) 1 foam UNSCH PRN TOP 07/19/16 12:15 (Heparin Inj) 5,000 units Q12HR SQ 07/20/16 21:00 07/25/16 09:07 (D50w (Vial) Inj) 25 ml UNSCH PRN IV PUSH 07/20/16 09:45 (Glucagon Inj) 1 mg UNSCH PRN OTHER 07/20/16 09:45 (NovoLIN R SUPPLEMENTAL SCALE) 1 Q6H SQ 07/20/16 11:00 07/23/16 17:00 (Neurontin) 300 mg DAILY PO 07/22/16 09:00 07/25/16 09:09 (Trandate Inj) 10 mg Q4H PRN IV PUSH 07/22/16 04:45 07/24/16 10:08 (Apresoline Inj) 10 mg Q4H PRN IV PUSH 07/22/16 05:30 07/25/16 00:00 (Mycostatin Powder) 1 applic Q12HR PRN TOPICAL 07/22/16 16:00 (Procardia) 20 mg Q8HR PO 07/23/16 14:00 07/25/16 13:24 Chlorhexidine Gluconate 15 ml 15 ml BID@08,20 MT 07/23/16 20:00 07/25/16 08:28 Propofol 100 ml @ 0 mls/hr TITRATE IV 07/23/16 19:30 07/25/16 16:00 (fentaNYL DRIP) 250 ml @ 0 mls/hr TITRATE IV 07/23/16 19:30 07/24/16 00:59 (Bactroban Nasal 2% Oint) 1 applic Taper BID EACH NARE 07/23/16 21:00 07/19/17 20:59 07/25/16 09:08 (NS Flush) DAILY IVF 07/23/16 20:00 07/25/16 11:34 IV Flush UNSCH PRN IVF 07/23/16 20:00 Sodium Chloride 1,000 ml @ 84 mls/hr [id number] IV 07/23/16 20:45 07/25/16 09:00 Cefepime HCl 2000 mg/Sodium Chloride 100 ml @ 200 mls/hr DAILY IV 07/23/16 22:00 07/25/16 09:07 (Zyvox 600 Mg Premix) 300 ml @ 300 mls/hr Q12HR IV 07/24/16 11:00 07/25/16 09:07 (Nitroglycerin 2% Oint) 2 inch Q6H PRN TOPICAL 07/25/16 04:15 07/25/16 04:48 Allergies Allergies Coded Allergies Lyrica (Verified Allergy, Severe, Anaphylaxis, 07/15/16) *MDRO Multi-Drug Resistant Organism (Verified Adverse Reaction, Unknown, ) Exam I&O / VS 07/24/16 07/24/16 07/25/16 15:00 23:00 07:00 Intake Total 1116 ml 598 ml 279 ml Output Total 1600 ml 975 ml 750 ml Balance -484 ml -377 ml -471 ml IV Total 896 ml 448 ml 229 ml Albumin 100 ml 100 ml Tube Irrigant 120 ml 50 ml 50 ml Output Urine Total 1600 ml 900 ml 750 ml Gastric Drainage Total 75 ml 0 ml # Bowel Movements 1 Vital Signs Date Time Temp Pulse Resp B/P Pulse Ox O2 Delivery O2 Flow Rate FiO2 07/25/16 16:40 98 100 07/25/16 12:20 98 40 07/25/16 12:00 40 07/25/16 09:54 97 40 07/25/16 09:54 97 Ventilator 40 07/25/16 08:00 97.7 83 20 164/83 99 07/25/16 08:00 83 07/25/16 08:00 40 07/25/16 08:00 100 Mechanical Ventilator 40 07/25/16 04:00 98.1 69 23 175/83 98 07/25/16 04:00 98 40 07/25/16 04:00 40 07/25/16 00:03 98 40 07/25/16 00:00 99.1 81 18 182/88 98 07/25/16 00:00 40 07/24/16 20:00 40 07/24/16 20:00 100.7 85 18 182/88 97 07/24/16 20:00 85 07/24/16 19:36 98 40 07/24/16 19:00 98 Mechanical Ventilator 40 Objective Radiology Results Last 48 hours Impressions Brain MRI 07/25/16 0000 Signed Impressions: Service Date/Time: July 17:05 - CONCLUSION: 1. No acute hemorrhage, mass or infarction. 2. Scattered foci of increased signal noted most consistent with chronic small vessel ischemic change. This is not significantly changed. 3. Fluid and high signal is now noted in the mastoid air cells bilaterally consistent with mastoiditis. Grady Hale MD Chest X-Ray 07/23/161999 Signed Impressions: Service Date/Time: Saturday, July 23, 2016 20:11 - CONCLUSION: 1. Left IJ line tip in superior vena cava without pneumothorax. George Choi MD Micro and Labs Laboratory Tests Test 07/25/16 04:30 White Blood Count 6.6 Red Blood Count 3.93 Hemoglobin 8.8 Hematocrit 27.7 Mean Corpuscular Volume 70.4 Mean Corpuscular Hemoglobin 22.4 Mean Corpuscular Hemoglobin 31.9 Concent Red Cell Distribution Width 19.0 Platelet Count 181 Mean Platelet Volume 10.0 Neutrophils (%) (Auto) 73.8 Lymphocytes (%) (Auto) 12.6 Monocytes (%) (Auto) 10.7 Eosinophils (%) (Auto) 2.3 Basophils (%) (Auto) 0.6 Neutrophils # (Auto) 4.9 Lymphocytes # (Auto) 0.8 Monocytes # (Auto) 0.7 Eosinophils # (Auto) 0.1 Basophils # (Auto) 0.0 CBC Comment AUTO DIFF Differential Comment AUTO DIFF CONFIRMED Platelet Estimate NORMAL Platelet Morphology Comment NORMAL Date/Time Procedure Status Source Growth 07/25/16 04:05 Aerobic Blood Culture Received Blood Peripheral Pending 07/25/16 04:05 Anaerobic Blood Culture Received Blood Peripheral Pending 07/24/16 04:07 Aerobic Blood Culture - Preliminary Resulted Blood Peripheral NO GROWTH IN 1 DAY 07/24/16 04:07 Anaerobic Blood Culture - Preliminary Resulted Blood Peripheral NO GROWTH IN 1 DAY 07/23/16 23:45 Urine Culture - Preliminary Resulted Urine Catheterized Urine NO GROWTH IN 24 HOURS. 07/23/16 23:45 Gram Stain - Final Resulted Sputum Endotracheal 07/23/16 23:45 Sputum Culture - Preliminary Resulted Sputum Endotracheal RARE GROWTH NORMAL RESPIRATORY CARINA ... Chip Estes MD Jul 25, 2016 18:45
[2016-07-25] MEDS: LABETALOL HCL 100 MG/20 ML VIAL IV PUSH PRN (18:59)
--- NOTE | 2016-07-25 19:31 | HHI.PR ---
Subjective Remarks Remains vented . No response . MRI done. FIO2 40 %.On sedation with propofol. Objective Vital Signs Date Time Temp Pulse Resp B/P Pulse Ox O2 Delivery O2 Flow Rate FiO2 07/25/16 16:40 98 100 07/25/16 12:20 98 40 07/25/16 12:00 40 07/25/16 09:54 97 40 07/25/16 09:54 97 Ventilator 40 07/25/16 08:00 97.7 83 20 164/83 99 07/25/16 08:00 83 07/25/16 08:00 40 07/25/16 08:00 100 Mechanical Ventilator 40 07/25/16 04:00 98.1 69 23 175/83 98 07/25/16 04:00 98 40 07/25/16 04:00 40 07/25/16 00:03 98 40 07/25/16 00:00 99.1 81 18 182/88 98 07/25/16 00:00 40 07/24/16 20:00 40 07/24/16 20:00 100.7 85 18 182/88 97 07/24/16 20:00 85 07/24/16 19:36 98 40 I/O 07/24/16 07/24/16 07/24/16 07/25/16 07/25/16 07/25/16 07:00 15:00 23:00 07:00 15:00 23:00 Intake Total 730 ml 1116 ml 598 ml 279 ml Output Total 725 ml 1600 ml 975 ml 750 ml Balance 5 ml -484 ml -377 ml -471 ml IV Total 730 ml 896 ml 448 ml 229 ml Albumin 100 ml 100 ml Tube Irrigant 120 ml 50 ml 50 ml Output Urine Total 625 ml 1600 ml 900 ml 750 ml Gastric Drainage Total 100 ml 75 ml 0 ml # Bowel Movements 1 1 Result Diagram: 07/25/16 0430 07/23/160 Objective Remarks General: This is a very obese middle-aged lady who is intubated. HEENT: Head normocephalic. Pupils are reactive and equal. Tongue is moist. Throat is mildly clear. Nasal mucosa edematous. Neck: Supple. No lymphadenopathy. Mild venous distension . Trachea midline. Chest: Distant breath sounds with wheezes bilaterally, prolonged expirations, crackles at the lung bases. Heart: The heart sounds are irregular. S1 and S2. No definite murmur. No S3. Abdomen: Soft, protuberant. No mass, no organomegaly or tenderness. Bowel sounds are active. Extremities: Decreased peripheral pulses. 2+ leg edema. Neurologic: Not responsive. Cranial nerves not tested. Rectal: Exam deferred. Skin: Scaly, dry and warm. Assessment and Plan Assessment and Plan . IMPRESSION 1. CHF with acute exacerbation. 2. Possible obstructive sleep apnea syndrome. 3. Hypertension. 4. Elevated troponin. 5. Diabetes mellitus type 2. 6. S/P respiratory Arrest. Plan : 1. Vent support and Wean to CPAP as tolerated. 2. ABG today. 3. Nebs qid , duoneb. 4. Tube feeds at 40 CC 5. CXR , CBC,BMP in am. 6. D/W family here. 7. Cont Antibiotics. Sheela Lau MD Jul 25, 2016 19:31
[2016-07-25] MEDS: ATORVASTATIN 80 MG TAB PO SCH (20:24)
[2016-07-25] MEDS: hydrALAZINE HCL 20 MG/ML VIAL IV PUSH PRN ×2 (20:25)
[2016-07-25 20:41] LABS: BLOOD GAS BASE EXCESS -1.8 mmol/L (-2-2); BLOOD GAS CARBOXYHEMOGLOBIN 1.3 % (0-4); BLOOD GAS HCO3 22 mmol/L (22-26); BLOOD GAS METHEMOGLOBIN 1.1 % (0-2); BLOOD GAS O2 HGB SATURATION 95 % (90-100); BLOOD GAS OXYGEN CONTENT 12.3 Vol % (12.0-20.0); BLOOD GAS PCO2 38 mmHg (38-42); BLOOD GAS PO2 105 mmHg (61-120); CRITICAL VALUE NO; FIO2 40 %; OXYGEN DEVICE VENTILATOR; TEMP CORR TO 98.6; VENT SETTINGS AC 18/550/+6
[2016-07-25 20:42] LABS: DRAW SITE RT RADIAL; NUMBER OF ARTERIAL PUNCTURES 1; STAT NO; ULNAR PULSE PRESENT
--- NOTE | 2016-07-25 20:49 | HHI.NPPN ---
Subjective History of Present Illness 50 year old with CKD 4/5 Diabetes Nephrotic range proteinuria Additional Remarks Patient remain intubated , has eyes open. Review of Systems General Constitutional: Fatigue Cardiovascular Cardiac: Edema Objective Data Data 07/24/16 07/25/16 19:00 07:00 Intake Total 1116 ml 877 ml Output Total 1600 ml 1725 ml Balance -484 ml -848 ml IV Total 896 ml 677 ml Albumin 100 ml 100 ml Tube Irrigant 120 ml 100 ml Output Urine Total 1600 ml 1650 ml Gastric Drainage Total 75 ml # Bowel Movements 1 Vital Signs Date Time Temp Pulse Resp B/P Pulse Ox O2 Delivery O2 Flow Rate FiO2 07/25/16 20:21 98 40 07/25/16 16:40 98 100 07/25/16 16:00 99.3 60 18 181/105 97 07/25/16 16:00 40 07/25/16 12:20 98 40 07/25/16 12:00 40 07/25/16 12:00 99.3 68 18 179/101 99 07/25/16 09:54 97 40 07/25/16 09:54 97 Ventilator 40 07/25/16 08:00 97.7 83 20 164/83 99 07/25/16 08:00 83 07/25/16 08:00 40 07/25/16 08:00 100 Mechanical Ventilator 40 07/25/16 04:00 98.1 69 23 175/83 98 07/25/16 04:00 98 40 07/25/16 04:00 40 07/25/16 00:03 98 40 07/25/16 00:00 99.1 81 18 182/88 98 07/25/16 00:00 40 -: 07/25/16 0430 07/23/16 2130 Microbiology 07/25/16 Aerobic Blood Culture, Received Pending 07/25/16 Anaerobic Blood Culture, Received Pending Physical Exam General Appearance: Obese Appearance Remarks Intubated and sedated. Throat Throat Exam: Oral Mucosa [place] & Moist Neck Neck Exam: Neck Supple Pulmonary Resp Exam: Crackles, Rhonchi, Decreased Bases, Diminished Breath Sounds Cardiology CV Exam: Regular, Normal Sinus Rhythm Gastrointestinal/Abdomen GI Exam: Soft, Non-Tender, Distended Extremeties Extremities Exam: Pitting Edema, Dependent Edema Neurologic Neuro Exam: Sedated Assessment/Plan Problem List: (1) Stage 4 chronic kidney disease Plan: Patient with advanced kidney disease and had the workup in May. including MATEUS/SPEP Neg Nephrotic proteinuria 10 grams. Urine out put increased, Most likely has advance Diabetic Nephropathy. Urine out put is good, on Bumex. No new BMP, if not better, will consider starting HD. MRI results noted, neurology following. (2) Nephrotic syndrome Plan: Protein to creatinine ratio above 10 10.52 (3) Acute exacerbation of CHF (congestive heart failure) Plan: This is likely due to chronic kidney disease and diastolic dysfunction (4) Diabetes Plan: Advance manifestations diabetic nephropathy, retinopathy and neuropathy (5) HTN (hypertension) Plan: Continue to monitor (6) Respiratory failure Plan Continue antibiotics. Problem Qualifiers (1) Acute exacerbation of CHF (congestive heart failure): Qualified Code: I50.9 - Acute on chronic congestive heart failure, unspecified congestive heart failure type (2) Diabetes: (3) HTN (hypertension): Qualified Code: I10 - Essential hypertension (4) Respiratory failure: Qualified Code: J96.01 - Acute respiratory failure with hypoxia Mia Medley MD Jul 25, 2016 20:49
[2016-07-26] VITALS (11 sets, daily range): BP systolic 155–172; BP diastolic 73–87; PULSE 66–89; RESP 18–27; TEMP 97.7–99.1; O2SAT 96–100
[2016-07-26] MEDS: PROPOFOL 1000 MG/100 ML INJ 100 ML IV SCH ×3 (00:50→08:29)
[2016-07-26] MEDS: hydrALAZINE HCL 20 MG/ML VIAL IV PUSH PRN ×3 (00:50→19:30)
[2016-07-26] MEDS: CHLORHEXIDINE GLUCONATE 2 % 1 PACK (2 CLOTHS) TOP SCH (02:41)
[2016-07-26] MEDS: NITROGLYCERIN 2% OINT 1 GM PACKET TOPICAL PRN (02:57)
[2016-07-26 03:51] LABS: AUTOMATED NEUTROPHIL # 3.8 TH/MM3 (1.8-7.7); BASOPHIL # 0.1 TH/MM3 (0-0.2); BASOPHIL % 1.3 % (0.0-2.0); EOSINOPHIL # 0.5 TH/MM3 (0-0.4); EOSINOPHIL % 8.1 % (0.0-4.0); HEMATOCRIT 29.8 % (35.0-46.0); LYMPH % 14.3 % (9.0-44.0); LYMPHOCYTE # 0.8 TH/MM3 (1.0-4.8); MEAN CELL VOLUME 71.1 FL (80.0-100.0); MEAN CORPUSCULAR HEMOGLOBIN 22.4 PG (27.0-34.0); MEAN CORPUSCULAR HGB CONC 31.6 % (32.0-36.0); MONO % 11.3 % (0.0-8.0); PLATELET COUNT 187 TH/MM3 (150-450); RED CELL DISTRIBUTION WIDTH 18.5 % (11.6-17.2); WHITE BLOOD COUNT 5.8 TH/MM3 (4.0-11.0)
[2016-07-26] MEDS: RESP: ALBUTEROL 2.5 MG/IPRATROPIUM 0.5 MG NEB (SCH) NEB ×5 (03:52→20:07)
[2016-07-26 03:53] LABS: HEMO FLAGS AUTO DIFF
[2016-07-26 04:09] LABS: BICARBONATE 24.9 MEQ/L (21.0-32.0); POTASSIUM 3.7 MEQ/L (3.5-5.1)
[2016-07-26] MEDS: INSULIN NovoLIN REGULAR SUPPLEMENTAL SCALE SQ SCH ×4 (04:32→22:45)
[2016-07-26] MEDS: NIFEdipine 20 MG CAP PO SCH ×3 (04:56→20:49)
[2016-07-26 05:53] LABS: ACANTHOCYTES OCC (NORMAL); KERATOCYTES OCC (NORMAL); OVALOCYTES 1+ (NORMAL)
[2016-07-26 05:54] LABS: PLATELET ESTIMATE SMEAR NORMAL (NORMAL); PLATELET MORPHOLOGY NORMAL (NORMAL); SCAN/DIFF AUTO DIFF CONFIRMED
--- NOTE | 2016-07-26 06:06 | RADRPT ---
EXAM DATE/TIME: 07/26/2016 04:54 [facility] COMPARISON: CHEST SINGLE AP, July 23, 2016, 20:11. INDICATIONS : Evaluate after respiratory failure. MEDICAL HISTORY : Congestive heart failure. Hypertension. Renal failure, chronic. SURGICAL HISTORY : None. ENCOUNTER: Subsequent ACUITY: 4 - 6 days PAIN SCORE: Non-responsive. LOCATION: Bilateral chest FINDINGS: Mid to lower lung consolidation and small bilateral pleural effusions are slightly improved in the in terim. No pneumothorax seen. Mild cardiomegaly is stable. Endotracheal tube tip is about 2.5 cm above the aryan. Nasogastric tube courses into the stomach. Th ere is a left internal jugular central venous catheter with tip in the superior vena cava. CONCLUSION: Slightly improved bibasilar consolidation and small effusions. Adolfo Roman MD on July 26, 2016 at 6:04 Board Certified Radiologist. This report was verified electronically.
[2016-07-26] MEDS: CHLORHEXIDINE 0.12% (ORAL KIT) 15 ML CUP MT SCH ×4 (07:38→22:45)
[2016-07-26] MEDS: SODIUM CHLORIDE 0.9% FLUSH 5 ML FLUSH IVF SCH ×3 (07:39→20:48)
[2016-07-26] MEDS: SODIUM CHLOR 0.9% 1000 ML INJ 1,000 ML IV SCH (08:20)
[2016-07-26] MEDS: LINEZOLID 600 MG PREMIX 300 ML IV SCH ×2 (08:28→20:47)
[2016-07-26] MEDS: ALBUMIN HUMAN 25% 25 GM/100 ML BAGP IV SCH ×2 (08:28→16:53)
[2016-07-26] MEDS: GABAPENTIN 300 MG CAP PO SCH (08:29)
[2016-07-26] MEDS: ASPIRIN EC 81 MG TABEC PO SCH (08:29)
[2016-07-26] MEDS: CARVEDILOL 12.5 MG TAB PO SCH ×2 (08:29→20:48)
[2016-07-26] MEDS: LISINOPRIL 20 MG TAB PO SCH (08:29)
[2016-07-26] MEDS: MUPIROCIN 2% OINT 1 APPLIC/GM SYR EACH NARE SCH ×2 (08:29→20:47)
[2016-07-26] MEDS: CEFEPIME INJ 2,000 MG in SODIUM CHLORIDE 0.9% INJ 100 ML IV SCH (08:29)
[2016-07-26] MEDS: FERROUS SULFATE 325 MG (65 MG ELEMENTAL IRON) TAB PO SCH ×2 (08:29→20:48)
[2016-07-26] MEDS: hydrALAZINE HCL 50 MG TAB PO SCH ×3 (08:29→16:53)
[2016-07-26] MEDS: PANTOPRAZOLE SODIUM 40 MG VIAL IV SCH (08:30)
[2016-07-26] MEDS: HEPARIN SODIUM - SQ 10,000 UNITS/ML VIAL SQ SCH ×2 (08:30→20:47)
[2016-07-26] MEDS: BUMETANIDE INJ 1 MG/4 ML VIAL IV PUSH SCH ×2 (08:30→16:53)
--- NOTE | 2016-07-26 11:23 | HHI.CCPN ---
Subjective Remarks/Hospital Course 07/18: 50 y/o female with a history of chf, depression, htn, dm, and ckd presented to the ED on 07/15 with complaints of dyspnea, swelling in her lower extremities and a 50lb weight gain since last admission 06/03/16. Patient had gained 50 lbs in fluid from last admission. She presented with increased shortness of breath with intermittent chest pressure with no radiation or associated symptoms. She was admitted on 05/31/16 and diagnosed with CHF, discharged home on on Bumex. Patient states she recently ran out of meds and has not followed up with a doctor due to transportation issues. She is not from here and her pcp is 2 hours away and she does not want her kids to take off work to take her to appointments. She is hoping to move back in 2 weeks or so. She states she tried to call a environmental research project manager to follow up but they required her records and she did not get them. Despite taking Bumex she states she has not had an increase in urination. Last admission 2d echo showed systolic dysfunction with EF 50%, she was seen by DR. Choudhury, and DR. Medley. Patient was admitted by hospitalist service. She was evaluated by Dr. Choudhury from cardiology who offered cardiac catheterization as patient did have an elevated troponin and previous abnormal stress test however she was concerned regarding ending up on hemodialysis so she refused. Patient was reportedly on nasal cannula earlier today however around 1:30 PM was noted to be lethargic and minimally responsive. Stroke alert was called. Head CT was negative for bleed. Recent had an ABG done which revealed pH of 7.0/PCO2 87/PO2 49. Critical care service was contacted by Dr. Mckoen. Both myself and Dr. Ott arrived at bedside. Patient was encephalopathic though arousable with painful stimuli occasional morning however not following commands. Her fingerstick glucose was in the 140s earlier. Decision was made to proceed with endotracheal intubation which was performed by Dr. Goff. A stat MRI brain was ordered to evaluate for CVA after discussion with Dr. Estes. 07/19: Awakens easily off sedation following commands this morning. On mechanical ventilation. MRI brain done yesterday did not show any acute event. 07/20 Patient was extubated yesterday went to IR for vascath placement and had resp arrest she was subsequently reintubated. Now sedated with Diprivan. Afebrile. MRI brain showed no evidence of acute infract. 07/21 Patient s/p extubation yesterday was given racemic Decadron 4mg IV x1 and racemic epi for ? stridor overnight placed on BIPAP 03/20 with 40% FIO2. ABG on BIPAP shows improvements in her resp acidosis with PH 7.30 and CO2: 48 from 57. Now of BIPAP and is on 6L oxygen. 07/22 No acute events overnight. Patient is on 4L oxygen with good sats. Afebrile. renal function improving with Cr: 3.22 and UO: 2850ml in 24 hrs Subjective 07/23 - CODE BLUE call today secondary to unresponsiveness. According to RN, patient received Mathias at 5 PM. Not seen. Upon evaluation by RN patient was not breathing on nasal cannula. Received 1 mg of epinephrine and one ampule sodium bicarbonate. Intubated with 8.0 ET tube. ROSC after around 10 minutes. Transferred ISC. Occasionally taking large breaths otherwise unresponsive on the ventilator 07/24: Remains orally intubated on mechanical ventilation. Has not required any sedation since arrival to the ICU, remains encephalopathic/comatose. 07/25: Remains orally intubated on mechanical ventilation. Remains encephalopathic. Started on propofol for vent synchrony last night. Neurology following 07/26 Patient remains intubated, off Diprivan this morning placed on CPAP with PS 10, PEEP:5 and FIO2 40%. Afebrile. Objective Vital Signs Date Time Temp Pulse Resp B/P Pulse Ox O2 Delivery O2 Flow Rate FiO2 07/26/16 09:03 96 Ventilator 40 07/26/16 08:00 98.3 66 18 155/73 07/23/16 19:10 15.00 Intake and Output 07/25/16 07/25/16 07/26/16 08:00 16:00 00:00 Intake Total 279 ml 955 ml 3242 ml Output Total 750 ml 1600 ml 1450 ml Balance -471 ml -645 ml 1792 ml Result Diagram: 07/26/16 0330 07/26/16 033 Other Results Laboratory Tests Test 07/25/16 07/26/16 20:28 03:30 Blood Gas Puncture Site RT RADIAL Blood Gas Patient Temperature 98.6 Blood Gas HCO3 22 mmol/L Blood Gas Base Excess -1.8 mmol/L Blood Gas Oxygen Saturation 95 % Arterial Blood pH 7.39 Arterial Blood Partial 38 mmHg Pressure CO2 Arterial Blood Partial 105 mmHg Pressure O2 Arterial Blood Oxygen Content 12.3 Vol % Arterial Blood 1.3 % Carboxyhemoglobin Arterial Blood Methemoglobin 1.1 % Blood Gas Hemoglobin 9.0 G/DL Oxygen Delivery Device VENTILATOR Blood Gas Ventilator Setting AC 18/550/+6 Blood Gas Inspired Oxygen 40 % White Blood Count 5.8 TH/MM3 Red Blood Count 4.20 MIL/MM3 Hemoglobin 9.4 GM/DL Hematocrit 29.8 % Mean Corpuscular Volume 71.1 FL Mean Corpuscular Hemoglobin 22.4 PG Mean Corpuscular Hemoglobin 31.6 % Concent Red Cell Distribution Width 18.5 % Platelet Count 187 TH/MM3 Mean Platelet Volume 9.8 FL Neutrophils (%) (Auto) 65.0 % Lymphocytes (%) (Auto) 14.3 % Monocytes (%) (Auto) 11.3 % Eosinophils (%) (Auto) 8.1 % Basophils (%) (Auto) 1.3 % Neutrophils # (Auto) 3.8 TH/MM3 Lymphocytes # (Auto) 0.8 TH/MM3 Monocytes # (Auto) 0.7 TH/MM3 Eosinophils # (Auto) 0.5 TH/MM3 Basophils # (Auto) 0.1 TH/MM3 CBC Comment AUTO DIFF Differential Comment AUTO DIFF CONFIRMED Platelet Estimate NORMAL Platelet Morphology Comment NORMAL Ovalocytes 1+ Acanthocytes OCC Keratocytes OCC Sodium Level 143 MEQ/L Potassium Level 3.7 MEQ/L Chloride Level 108 MEQ/L Carbon Dioxide Level 24.9 MEQ/L Anion Gap 10 MEQ/L Blood Urea Nitrogen 40 MG/DL Creatinine 2.81 MG/DL Estimat Glomerular Filtration 18 ML/MIN Rate Random Glucose 119 MG/DL Calcium Level 8.7 MG/DL Imaging Last Impressions Chest X-Ray 07/26/16 0600 Signed Impressions: Service Date/Time: Tuesday, July 26, 2016 04:54 - CONCLUSION: Slightly improved bibasilar consolidation and small effusions. Adolfo Roman MD Brain MRI 07/25/16 0000 Signed Impressions: Service Date/Time: July 17:05 - CONCLUSION: 1. No acute hemorrhage, mass or infarction. 2. Scattered foci of increased signal noted most consistent with chronic small vessel ischemic change. This is not significantly changed. 3. Fluid and high signal is now noted in the mastoid air cells bilaterally consistent with mastoiditis. Grady Hale MD Head CT 07/23/16 Signed Impressions: Service Date/Time: Saturday, July 23, 2016 20:54 - CONCLUSION: Normal examination for a patient of this age. No significant change has occurred. George Choi MD Consultation 07/19/16 Signed Impressions: Service Date/Time: Tuesday, July 19, 2016 00:00 - CONCLUSION: Procedure not performed secondary to cardiopulmonary arrest. Emre Daniel MD Abdomen X-Ray 07/18/16 Signed Impressions: Service Date/Time: July 15:39 - CONCLUSION: No evidence of obstruction. No MRI incompatible foreign body is identified. Eliezer Shay MD Objective Remarks GENERAL: 50-year-old female, critically ill currently orotracheally intubated SKIN: Warm and dry. No rash HEAD: Normocephalic. EYES: No scleral icterus. No injection or drainage. NECK: Supple, trachea midline. No JVD or lymphadenopathy. CARDIOVASCULAR: RRR. S1, S2. No S4. Without murmur RESPIRATORY: On mechanical ventilation, Diminished due to body habitus. Breath sounds equal bilaterally. Scattered rhonchi. GASTROINTESTINAL: Abdomen soft, obese. Hypoactive bowel sounds MUSCULOSKELETAL: With nonpitting peripheral edema. Neuro: Comatose, orally intubated on mechanical ventilation Positive gag. Positive corneal reflex. Currently not withdrawing to noxious stimuli pain. Upgoing toes. Date of Insertion: Jul 23, 2016 Line: Central Venous Catheter Side: Left Location: Internal, Jugular A/P Assessment and Plan Neuro/Psych: Toxic metabolic encephalopathy/history CO2 retention History of depression Peripheral neuropathy Propofol for vent synchrony as needed. Daily sedation vacation. Neuro is following- Dr. Estes Acetaminophen for fever Baby aspirin 81 mg for now 07/25 MRI brain: No acute hemorrhage, mass or infarction. Scattered foci of increased signal noted most consistent with chronic small vessel ischemic change. Mastoiditis. 07/18 MRI brain: White matter hyperintensities prominent for age indicating possible demyelinating disorder. No evidence of acute infarct. 07/18 CT brain: No acute infarct 07/19 EEG: Mild- mod encephalopathy CV: Hypertension CHF - diastolic Non-STEMI Echocardiogram 05/21 revealed EF 50%. Mildly dilated ventricle. Diffuse hypokinesis. On Coreg 25mg BID, hydralazine 50mg TID,, lisinopril 20 daily, nifedipine 20 mg Q8 Continue atorvastatin 80 mg daily's for dyslipidemia. Continue diuresis Followed by cardiology. They believe troponin likely due to fluid overloaded state, HTN episode, CKD... previous stress test showing mild small lateral wall defect, offered diagnostic cath with a plan for staged intervention if needed Resp: Acute hypoxemic respiratory failure PRVC 16/550/ Continue with vent support keep sat >92% Ventilator bundle Bronchodilator therapy every 4 hours and as needed SBT daily as jose luis GI: Continue tube feeds- On Nepro@20ml/hr advance to goal rate Protonix for GI prophylaxis Colace/as needed Senokot for bowel regimen Endo: Diabetes mellitus Sliding-scale insulin with Accu checks every 6 hours to maintain euglycemia. Renal: Acute on chronic kidney injury Nephrotic syndrome Followed by nephrology. No indication for current hemodialysis On Bumex to 1 mg IV BID Monitor renal function, I/O's, avoid nephrotoxins. Cr: 2.81 from 3.77 with UO: 3810ml in 24 hrs Heme: Anemia Currently on iron sulfate 325 by mouth twice a day/home medication. Monitor CBC ID: MRSA pneumonia Pertinent cultures 07/20 - sputum - MRSA Continue abx per ID ( cefepime/Zyvox)monitor for sigsn of infections ( Fever, WBC) Recent cxs NGTD MSK: Morbid obesity Osteoporosis Holding Drisdol 50,000 units every Friday. Weight loss encouraged Access - Left IJ CVL day 3 Prophylaxis - GI - Protonix - DVT - SCD/heparin Critical Care: The total critical care time was 30 minutes. Time to perform other separately billable procedures was not included in the critical care time. Peter Donnelly MD Jul 26, 2016 11:23
--- NOTE | 2016-07-26 12:48 | HHI.NPPN ---
Subjective History of Present Illness 50 year old with CKD 4/5 Diabetes Nephrotic range proteinuria Additional Remarks Patient remain intubated , has eyes open, some improvement in the response. Review of Systems General Constitutional: Fatigue Cardiovascular Cardiac: Edema Objective Data Data 07/25/16 07/26/16 19:00 07:00 Intake Total 955 ml 4062 ml Output Total 1600 ml 2310 ml Balance -645 ml 1752 ml IV Total 805 ml 4062 ml Albumin 100 ml 0 ml Tube Irrigant 50 ml Output Urine Total 1600 ml 2210 ml Gastric Drainage Total 0 ml 100 ml # Bowel Movements 0 Vital Signs Date Time Temp Pulse Resp B/P Pulse Ox O2 Delivery O2 Flow Rate FiO2 07/26/16 12:00 98.8 81 24 162/77 97 07/26/16 12:00 40 07/26/16 09:03 96 Ventilator 40 07/26/16 09:03 96 40 07/26/16 09:03 40 07/26/16 09:00 40 07/26/16 08:00 98.3 66 18 155/73 97 07/26/16 08:00 66 07/26/16 08:00 40 07/26/16 07:00 100 Mechanical Ventilator 07/26/16 04:00 97.7 68 18 158/77 98 07/26/16 04:00 40 07/26/16 03:52 97 40 07/26/16 00:00 97.8 70 20 172/83 98 07/26/16 00:00 40 07/25/16 23:42 96 40 07/25/16 20:21 98 40 07/25/16 20:00 40 07/25/16 20:00 60 07/25/16 20:00 97.7 60 18 183/103 98 07/25/16 19:00 100 Mechanical Ventilator 07/25/16 16:40 98 100 07/25/16 16:00 99.3 60 18 181/105 97 07/25/16 16:00 40 -: 07/26/16 0330 07/26/16 0330 Physical Exam General Appearance: Obese Appearance Remarks Intubated and sedated. Throat Throat Exam: Oral Mucosa [place] & Moist Neck Neck Exam: Neck Supple Pulmonary Resp Exam: Crackles, Rhonchi, Decreased Bases, Diminished Breath Sounds Cardiology CV Exam: Regular, Normal Sinus Rhythm Gastrointestinal/Abdomen GI Exam: Soft, Non-Tender, Distended Extremeties Extremities Exam: Pitting Edema, Dependent Edema Neurologic Neuro Exam: Sedated Assessment/Plan Problem List: (1) Stage 4 chronic kidney disease Plan: Patient with advanced kidney disease and had the workup in May. including MATEUS/SPEP Neg Nephrotic proteinuria 10 grams. Urine out put increased, Most likely has advance Diabetic Nephropathy. Urine out put is good, on Bumex. Creatinine is slightly better. MRI results noted. Weaning as tolerated. (2) Nephrotic syndrome Plan: Protein to creatinine ratio above 10 10.52 (3) Acute exacerbation of CHF (congestive heart failure) Plan: This is likely due to chronic kidney disease and diastolic dysfunction (4) Diabetes Plan: Advance manifestations diabetic nephropathy, retinopathy and neuropathy (5) HTN (hypertension) Plan: Continue to monitor (6) Respiratory failure Plan Continue antibiotics. Problem Qualifiers (1) Acute exacerbation of CHF (congestive heart failure): Qualified Code: I50.9 - Acute on chronic congestive heart failure, unspecified congestive heart failure type (2) Diabetes: (3) HTN (hypertension): Qualified Code: I10 - Essential hypertension (4) Respiratory failure: Qualified Code: J96.01 - Acute respiratory failure with hypoxia Mia Medley MD Jul 26, 2016 12:48
[2016-07-26] MEDS: LABETALOL HCL 100 MG/20 ML VIAL IV PUSH PRN (14:03)
--- NOTE | 2016-07-26 14:08 | PD.CARD.PN ---
Subjective Subjective Remarks No events over night, opens eyes to noise, not really following commands today Objective Medications Current Medications Medications (Trade) Dose Ordered Sig/Christa Route Start Time Stop Time Status Last Admin (Narcan Inj) 0.4 mg UNSCH PRN IV 07/15/16 20:45 (Bumex Inj) 1 mg BID@09,18 IV PUSH 07/16/16 09:00 07/26/16 08:30 (Elavil) 50 mg HS PO 07/16/16 21:00 Hold 07/21/16 19:33 (Ecotrin Ec) 81 mg DAILY PO 07/16/16 09:00 07/26/16 08:29 (Lipitor) 80 mg HS PO 07/16/16 21:00 07/25/16 20:24 (Coreg) 25 mg BID PO 07/16/16 09:00 07/26/16 08:29 (Ferrous Sulfate) 325 mg BID PO 07/16/16 09:00 07/26/16 08:29 (Apresoline) 50 mg TID PO 07/16/16 09:00 07/26/16 11:39 (Albumin 25% Inj) 25 gm BID@ IV 07/16/16 17:00 07/26/16 08:28 (Prinivil) 20 mg DAILY PO 07/17/16 09:00 07/26/16 08:29 ([place] 5-325 Mg) 1 tab Q6H PRN PO 07/16/16 23:30 07/23/16 16:58 (Zofran Inj) 4 mg Q6HR PRN IV PUSH 07/18/16 06:00 07/18/16 05:57 (NS Flush) 2 ml UNSCH PRN IVF 07/18/16 13:45 (NS Flush) 2 ml BID IVF 07/18/16 21:00 07/26/16 07:39 (Peridex 0.12% Liq) 15 ml BID@08,20 MT 07/18/16 20:00 07/26/16 08:30 (Protonix Inj) 40 mg DAILY IV 07/19/16 09:00 07/26/16 08:30 Miscellaneous Information 1 Q361D XX 07/18/16 13:45 07/18/16 13:45 (Chlorhexidine 2% Cloth) Taper DAILY@04 TOP 07/19/16 04:00 07/15/17 03:59 07/25/16 03:11 Chlorhexidine Gluconate 3 pack 3 pack UNSCH PRN TOP 07/18/16 13:45 (NS 1000 ml Inj) 1,000 ml @ 0 mls/hr Q0M PRN IV 07/19/16 12:15 Heparin Sodium (Porcine) 8000 units 8,000 units UNSCH PRN IVF 07/19/16 12:15 (NS 1000 ml Inj) 1,000 ml @ 0 mls/hr Q0M PRN IV 07/19/16 12:15 (Mannitol Inj) 12.5 gm UNSCH PRN IV 07/19/16 12:15 (Albumin 25% Inj) 25 gm UNSCH PRN IV 07/19/16 12:15 (NS Flush) 5 ml UNSCH PRN IVF 07/19/16 12:15 (Heparin Inj) UNSCH PRN .XX 07/19/16 12:15 (Gentamicin (Dialysis) Inj) 20 mg UNSCH PRN IV 07/19/16 12:15 (Zofran Inj) 4 mg UNSCH PRN IV 07/19/16 12:15 (Tylenol) 650 mg UNSCH PRN PO 07/19/16 12:15 07/20/16 20:41 (Benadryl) 25 mg UNSCH PRN PO 07/19/16 12:15 (Nitrostat Sl) 0.4 mg UNSCH PRN SL 07/19/16 12:15 (Catapres) 0.1 mg UNSCH PRN PO 07/19/16 12:15 07/25/16 12:13 (Epogen Inj) 4,000 units UNSCH PRN IV 07/19/16 12:15 (Gelfoam 12 Mm/7 Mm Top) 1 foam UNSCH PRN TOP 07/19/16 12:15 (Heparin Inj) 5,000 units Q12HR SQ 07/20/16 21:00 07/26/16 08:30 (D50w (Vial) Inj) 25 ml UNSCH PRN IV PUSH 07/20/16 09:45 (Glucagon Inj) 1 mg UNSCH PRN OTHER 07/20/16 09:45 (NovoLIN R SUPPLEMENTAL SCALE) 1 Q6H SQ 07/20/16 11:00 07/26/16 11:39 (Neurontin) 300 mg DAILY PO 07/22/16 09:00 07/26/16 08:29 (Trandate Inj) 10 mg Q4H PRN IV PUSH 07/22/16 04:45 07/26/16 14:03 (Apresoline Inj) 10 mg Q4H PRN IV PUSH 07/22/16 05:30 07/26/16 11:39 (Mycostatin Powder) 1 applic Q12HR PRN TOPICAL 07/22/16 16:00 (Procardia) 20 mg Q8HR PO 07/23/16 14:00 07/26/16 14:03 Chlorhexidine Gluconate 15 ml 15 ml BID@08,20 MT 07/23/16 20:00 07/25/16 20:26 Propofol 100 ml @ 0 mls/hr TITRATE IV 07/23/16 19:30 07/26/16 08:29 (fentaNYL DRIP) 250 ml @ 0 mls/hr TITRATE IV 07/23/16 19:30 07/24/16 00:59 (Bactroban Nasal 2% Oint) 1 applic Taper BID EACH NARE 07/23/16 21:00 07/19/17 20:59 07/26/16 08:29 (NS Flush) DAILY IVF 07/23/16 20:00 07/26/16 07:39 IV Flush UNSCH PRN IVF 07/23/16 20:00 Cefepime HCl 2000 mg/Sodium Chloride 100 ml @ 200 mls/hr DAILY IV 07/23/16 22:00 07/26/16 08:29 (Zyvox 600 Mg Premix) 300 ml @ 300 mls/hr Q12HR IV 07/24/16 11:00 07/26/16 08:28 (Nitroglycerin 2% Oint) 2 inch Q6H PRN TOPICAL 07/25/16 04:15 07/26/16 02:57 Vital Signs / I&O Vital Signs Date Time Temp Pulse Resp B/P Pulse Ox O2 Delivery O2 Flow Rate FiO2 07/26/16 13:01 100 40 07/26/16 12:00 98.8 81 24 162/77 97 07/26/16 12:00 40 07/26/16 09:03 96 Ventilator 40 07/26/16 09:03 96 40 07/26/16 09:03 40 07/26/16 09:00 40 07/26/16 08:00 98.3 66 18 155/73 97 07/26/16 08:00 66 07/26/16 08:00 40 07/26/16 07:00 100 Mechanical Ventilator 07/26/16 04:00 97.7 68 18 158/77 98 07/26/16 04:00 40 07/26/16 03:52 97 40 07/26/16 00:00 97.8 70 20 172/83 98 07/26/16 00:00 40 07/25/16 23:42 96 40 07/25/16 20:21 98 40 07/25/16 20:00 40 07/25/16 20:00 60 07/25/16 20:00 97.7 60 18 183/103 98 07/25/16 19:00 100 Mechanical Ventilator 07/25/16 16:40 98 100 07/25/16 16:00 99.3 60 18 181/105 97 07/25/16 16:00 40 I/O 07/25/16 07/25/16 07/25/16 07/26/16 07/26/16 07/26/16 07:00 15:00 23:00 07:00 15:00 23:00 Intake Total 279 ml 955 ml 3242 ml 820 ml Output Total 750 ml 1600 ml 1450 ml 860 ml 0 ml Balance -471 ml -645 ml 1792 ml -40 ml 0 ml IV Total 229 ml 805 ml 3242 ml 820 ml Albumin 100 ml 0 ml 0 ml Tube Irrigant 50 ml 50 ml Output Urine Total 750 ml 1600 ml 1350 ml 860 ml Gastric Drainage Total 0 ml 0 ml 100 ml 0 ml Tube Feeding Residual Discard 0 ml # Bowel Movements 0 0 Physical Exam GENERAL: Off sedation SKIN: Warm and dry. HEAD: Atraumatic. Normocephalic. EYES: Pupils equal and round. No scleral icterus. No injection or drainage. ENT: No nasal bleeding or discharge. Mucous membranes pink and moist. NECK: Trachea midline. No JVD. CARDIOVASCULAR: Regular rate and rhythm. RESPIRATORY: No accessory muscle use. Decreased breath sounds bilaterally GASTROINTESTINAL: Abdomen soft, non-tender, nondistended. Hepatic and splenic margins not palpable. MUSCULOSKELETAL: 2+ pitting edema bilaterally NEUROLOGICAL: Off sedation, opens eyes to noise but does not follow commands Laboratory Laboratory Tests Test 07/25/16 07/26/16 20:28 03:30 Blood Gas Puncture Site RT RADIAL Blood Gas Patient Temperature 98.6 Blood Gas HCO3 22 mmol/L Blood Gas Base Excess -1.8 mmol/L Blood Gas Oxygen Saturation 95 % Arterial Blood pH 7.39 Arterial Blood Partial 38 mmHg Pressure CO2 Arterial Blood Partial 105 mmHg Pressure O2 Arterial Blood Oxygen Content 12.3 Vol % Arterial Blood 1.3 % Carboxyhemoglobin Arterial Blood Methemoglobin 1.1 % Blood Gas Hemoglobin 9.0 G/DL Oxygen Delivery Device VENTILATOR Blood Gas Ventilator Setting AC 18/550/+6 Blood Gas Inspired Oxygen 40 % White Blood Count 5.8 TH/MM3 Red Blood Count 4.20 MIL/MM3 Hemoglobin 9.4 GM/DL Hematocrit 29.8 % Mean Corpuscular Volume 71.1 FL Mean Corpuscular Hemoglobin 22.4 PG Mean Corpuscular Hemoglobin 31.6 % Concent Red Cell Distribution Width 18.5 % Platelet Count 187 TH/MM3 Mean Platelet Volume 9.8 FL Neutrophils (%) (Auto) 65.0 % Lymphocytes (%) (Auto) 14.3 % Monocytes (%) (Auto) 11.3 % Eosinophils (%) (Auto) 8.1 % Basophils (%) (Auto) 1.3 % Neutrophils # (Auto) 3.8 TH/MM3 Lymphocytes # (Auto) 0.8 TH/MM3 Monocytes # (Auto) 0.7 TH/MM3 Eosinophils # (Auto) 0.5 TH/MM3 Basophils # (Auto) 0.1 TH/MM3 CBC Comment AUTO DIFF Differential Comment AUTO DIFF CONFIRMED Platelet Estimate NORMAL Platelet Morphology Comment NORMAL Ovalocytes 1+ Acanthocytes OCC Keratocytes OCC Sodium Level 143 MEQ/L Potassium Level 3.7 MEQ/L Chloride Level 108 MEQ/L Carbon Dioxide Level 24.9 MEQ/L Anion Gap 10 MEQ/L Blood Urea Nitrogen 40 MG/DL Creatinine 2.81 MG/DL Estimat Glomerular Filtration 18 ML/MIN Rate Random Glucose 119 MG/DL Calcium Level 8.7 MG/DL Assessment and Plan Problem List: (1) Acute exacerbation of CHF (congestive heart failure) (2) Stage 4 chronic kidney disease (3) HTN (hypertension) (4) Diabetes (5) Elevated troponin (6) Stented coronary artery (7) Respiratory failure Assessment and Plan 1) Admitted with increased edema and SOB, denies CP... ran out of diuretic at home for 2 weeks, unable to get in to see primary doctor (needs a new one) 2) Continue gentle diuresis as possible 3) Minimally elevated troponin, most likely due to fluid overloaded state, HTN episode, CKD... previous stress test showing mild small lateral wall defect, offered diagnostic cath with a plan for staged intervention if needed, wants to continue medical management 4) Not started on dialysis due to resp distress/arrest requiring intubation during Vascath placement, creatinine stabilizing 5) Still quite hypertensive on multiple medications, snoring every time I enter the room, should be worked up for PALMER 6) Norvasc changed to Procardia for HTN 7) Vent per critical care, but concern for chronic CO2 retaining once off the vent, would avoid pain/anxiety meds 8) Will see PRN, call with questions Problem Qualifiers (1) Acute exacerbation of CHF (congestive heart failure): Qualified Code: I50.9 - Acute on chronic congestive heart failure, unspecified congestive heart failure type (2) HTN (hypertension): Qualified Code: I10 - Essential hypertension (3) Diabetes: (4) Respiratory failure: Qualified Code: J96.01 - Acute respiratory failure with hypoxia Juancho Choudhury DO Jul 26, 2016 14:08
--- NOTE | 2016-07-26 14:28 | HHI.IDPN ---
Subjective Subjective Remarks Notes reviewed Temps ok On the vent Doing CPAP BP ok Started on TF C/S reviewed BC negative UC negative WBC normal Creatinine improving Good UO CXR improving infiltrates Antibiotics Cefepime Zyvox Lines LIJ TLC Past Medical History CHF last echo 08/01/15 EF 50% Depression HTN DM Neuropathy Anemia CKD Past Surgical History Cardiac Cath 2015 Allergies: Coded Allergies: Lyrica (Verified Allergy, Severe, Anaphylaxis, 07/15/16) *MDRO Multi-Drug Resistant Organism (Verified Adverse Reaction, Unknown, ) MRSA (sputum)-07/20/16 MRSA PCR Screen POSITIVE - 07/18/2016 Objective . Vital Signs Date Time Temp Pulse Resp B/P Pulse Ox O2 Delivery O2 Flow Rate FiO2 07/26/16 13:01 100 40 07/26/16 12:00 98.8 81 24 162/77 97 07/26/16 12:00 40 07/26/16 09:03 96 Ventilator 40 07/26/16 09:03 96 40 07/26/16 09:03 40 07/26/16 09:00 40 07/26/16 08:00 98.3 66 18 155/73 97 07/26/16 08:00 66 07/26/16 08:00 40 07/26/16 07:00 100 Mechanical Ventilator 07/26/16 04:00 97.7 68 18 158/77 98 07/26/16 04:00 40 07/26/16 03:52 97 40 07/26/16 00:00 97.8 70 20 172/83 98 07/26/16 00:00 40 07/25/16 23:42 96 40 07/25/16 20:21 98 40 07/25/16 20:00 40 07/25/16 20:00 60 07/25/16 20:00 97.7 60 18 183/103 98 07/25/16 19:00 100 Mechanical Ventilator 07/25/16 16:40 98 100 07/25/16 16:00 99.3 60 18 181/105 97 07/25/16 16:00 40 07/25/16 07/25/16 07/26/16 15:00 23:00 07:00 Intake Total 955 ml 3242 ml 820 ml Output Total 1600 ml 1450 ml 860 ml Balance -645 ml 1792 ml -40 ml IV Total 805 ml 3242 ml 820 ml Albumin 100 ml 0 ml 0 ml Tube Irrigant 50 ml Output Urine Total 1600 ml 1350 ml 860 ml Gastric Drainage Total 0 ml 100 ml 0 ml # Bowel Movements 0 0 . Laboratory Tests Test 07/25/16 07/26/16 04:30 03:30 White Blood Count 6.6 TH/MM3 5.8 TH/MM3 Red Blood Count 3.93 MIL/MM3 4.20 MIL/MM3 Hemoglobin 8.8 GM/DL 9.4 GM/DL Hematocrit 27.7 % 29.8 % Mean Corpuscular Volume 70.4 FL 71.1 FL Mean Corpuscular Hemoglobin 22.4 PG 22.4 PG Mean Corpuscular Hemoglobin 31.9 % 31.6 % Concent Red Cell Distribution Width 19.0 % 18.5 % Platelet Count 181 TH/MM3 187 TH/MM3 Mean Platelet Volume 10.0 FL 9.8 FL Neutrophils (%) (Auto) 73.8 % 65.0 % Lymphocytes (%) (Auto) 12.6 % 14.3 % Monocytes (%) (Auto) 10.7 % 11.3 % Eosinophils (%) (Auto) 2.3 % 8.1 % Basophils (%) (Auto) 0.6 % 1.3 % Neutrophils # (Auto) 4.9 TH/MM3 3.8 TH/MM3 Lymphocytes # (Auto) 0.8 TH/MM3 0.8 TH/MM3 Monocytes # (Auto) 0.7 TH/MM3 0.7 TH/MM3 Eosinophils # (Auto) 0.1 TH/MM3 0.5 TH/MM3 Basophils # (Auto) 0.0 TH/MM3 0.1 TH/MM3 CBC Comment AUTO DIFF AUTO DIFF Differential Comment AUTO DIFF AUTO DIFF CONFIRMED CONFIRMED Platelet Estimate NORMAL NORMAL Platelet Morphology Comment NORMAL NORMAL Ovalocytes 1+ Acanthocytes OCC Keratocytes OCC Laboratory Tests Test 07/26/16 03:30 Sodium Level 143 MEQ/L Potassium Level 3.7 MEQ/L Chloride Level 108 MEQ/L Carbon Dioxide Level 24.9 MEQ/L Anion Gap 10 MEQ/L Blood Urea Nitrogen 40 MG/DL Creatinine 2.81 MG/DL Estimat Glomerular Filtration 18 ML/MIN Rate Random Glucose 119 MG/DL Calcium Level 8.7 MG/DL Microbiology Date/Time Procedure Status Source Growth 07/23/16 23:45 Gram Stain - Final Complete Sputum Endotracheal 07/23/16 23:45 Sputum Culture - Final Complete Sputum Endotracheal RARE GROWTH NORMAL RESPIRATORY [place] 07/23/16 23:45 Urine Culture - Final Complete Urine Catheterized Urine NO GROWTH IN 48 HOURS. 07/24/16 04:07 Aerobic Blood Culture - Preliminary Resulted Blood Peripheral NO GROWTH IN 2 DAYS 07/24/16 04:07 Anaerobic Blood Culture - Preliminary Resulted Blood Peripheral NO GROWTH IN 2 DAYS 07/25/16 04:05 Aerobic Blood Culture - Preliminary Resulted Blood Peripheral NO GROWTH IN 1 DAY 07/25/16 04:05 Anaerobic Blood Culture - Preliminary Resulted Blood Peripheral NO GROWTH IN 1 DAY Imaging Chest X-Ray 07/26/16 0600 Signed Impressions: Service Date/Time: Tuesday, July 26, 2016 04:54 - CONCLUSION: Slightly improved bibasilar consolidation and small effusions. Adolfo Roman MD Brain MRI 07/25/16 Signed Impressions: Service Date/Time: July 17:05 - CONCLUSION: 1. No acute hemorrhage, mass or infarction. 2. Scattered foci of increased signal noted most consistent with chronic small vessel ischemic change. This is not significantly changed. 3. Fluid and high signal is now noted in the mastoid air cells bilaterally consistent with mastoiditis. Grady Hale MD Chest X-Ray 07/23/161999 Signed Impressions: Service Date/Time: Saturday, July 23, 2016 20:11 - CONCLUSION: 1. Left IJ line tip in superior vena cava without pneumothorax. George Choi MD Head CT 07/23/16 Signed Impressions: Service Date/Time: Saturday, July 23, 2016 20:54 - CONCLUSION: Normal examination for a patient of this age. No significant change has occurred. George Choi MD Consultation 07/19/16 Signed Impressions: Service Date/Time: Tuesday, July 19, 2016 00:00 - CONCLUSION: Procedure not performed secondary to cardiopulmonary arrest. Emre Daniel MD Brain MRI 07/18/16 Signed Impressions: Service Date/Time: July 17:15 - CONCLUSION: White matter hyperintensities prominent for age indicating possible demyelinating disorder. No evidence of acute infarct. Eliezer Shay MD Abdomen X-Ray 07/18/16 Signed Impressions: Service Date/Time: July 15:39 - CONCLUSION: No evidence of obstruction. No MRI incompatible foreign body is identified. Eliezer Shay MD Physical Exam GENERAL: On the vent, NAD SKIN: Cool skin, dry, no generalized rash. HEENT: [place] conjunctivae. No scleral icterus. NG tube in place. Endotracheal tube is in the mouth. Has moist oral mucosa. NECK: Supple, no nuchal rigidity. Left IJ central line in place with no evidence of infection. CARDIOVASCULAR: Regular rate and rhythm without murmurs, gallops, or rubs. RESPIRATORY: Coarse breath sounds bilaterally, and equal. Decreased breath sounds at the bases. GASTROINTESTINAL: Abdomen soft, obese, nondistended, no reaction to deep palpation. Bowel sounds are present and normoactive. No hepato-splenomegaly, or palpable masses. No guarding. MUSCULOSKELETAL: Extremities without clubbing, cyanosis, or edema. NEUROLOGICAL: Sedated. No Babinski or ankle clonus : Calderon catheter in place, looks clear LINE: Left IJ central line with no evidence of infection. PIV with no evidence of infection Assessment & Plan Remarks IMPRESSION Bilateral infiltrates, due to pulmonary edema, now with HCAP - C/S with MRSA Recurrent arrest felt to be due to primary respiratory event Respiratory failure , recurrent post arrest Possibly has PALMER CHF Obesity CKD (+) UA RECOMMENDATION Stop Cefepime Continue Zyvox - follow CBC Follow new C/S Weaning per CCM Monitor progress Dr Petra Ham covering this weekend if needed D/W Polina Arrington MD Jul 26, 2016 14:28
--- NOTE | 2016-07-26 18:23 | HHI.PR ---
Subjective Remarks Remains vented . More responsive today . MRI is OK.. FIO2 40 %.On sedation with propofol. Hemodynamics are stable. Objective Vital Signs Date Time Temp Pulse Resp B/P Pulse Ox O2 Delivery O2 Flow Rate FiO2 07/26/16 17:23 99 40 07/26/16 16:00 99.1 81 27 162/77 97 07/26/16 16:00 40 07/26/16 13:01 100 40 07/26/16 12:00 98.8 81 24 162/77 97 07/26/16 12:00 40 07/26/16 09:03 96 Ventilator 40 07/26/16 09:03 96 40 07/26/16 09:03 40 07/26/16 09:00 40 07/26/16 08:00 98.3 66 18 155/73 97 07/26/16 08:00 66 07/26/16 08:00 40 07/26/16 07:00 100 Mechanical Ventilator 07/26/16 04:00 97.7 68 18 158/77 98 07/26/16 04:00 40 07/26/16 03:52 97 40 07/26/16 00:00 97.8 70 20 172/83 98 07/26/16 00:00 40 07/25/16 23:42 96 40 07/25/16 20:21 98 40 07/25/16 20:00 40 07/25/16 20:00 60 07/25/16 20:00 97.7 60 18 183/103 98 07/25/16 19:00 100 Mechanical Ventilator I/O 07/25/16 07/25/16 07/25/16 07/26/16 07/26/16 07/26/16 07:00 15:00 23:00 07:00 15:00 23:00 Intake Total 279 ml 955 ml 3242 ml 820 ml 1093 ml Output Total 750 ml 1600 ml 1450 ml 860 ml 800 ml Balance -471 ml -645 ml 1792 ml -40 ml 293 ml IV Total 229 ml 805 ml 3242 ml 820 ml 798 ml Tube Feeding 135 ml Albumin 100 ml 0 ml 0 ml 100 ml Tube Irrigant 50 ml 50 ml 60 ml Output Urine Total 750 ml 1600 ml 1350 ml 860 ml 800 ml Gastric Drainage Total 0 ml 0 ml 100 ml 0 ml Tube Feeding Residual Discard 0 ml # Bowel Movements 0 0 Result Diagram: 07/26/1632907/26/16329 Objective Remarks General: This is a very obese middle-aged lady who is intubated. HEENT: Head normocephalic. Pupils are reactive and equal. Tongue is moist. Throat is clear. Nasal mucosa clear Neck: Supple. No lymphadenopathy. Mild venous distension . Trachea midline. Chest: Distant breath sounds with wheezes bilaterally, prolonged expirations, crackles at the lung bases. Heart: The heart sounds are irregular. S1 and S2. No definite murmur. No S3. Abdomen: Soft, protuberant. No mass, no organomegaly or tenderness. Bowel sounds are active. Extremities: Decreased peripheral pulses. 2+ leg edema. Neurologic: Not responsive. Cranial nerves not tested. Rectal: Exam deferred. Skin: Scaly, dry and warm. Assessment and Plan Assessment and Plan . IMPRESSION 1. CHF with acute exacerbation. 2. Possible obstructive sleep apnea syndrome. 3. Hypertension. 4. Elevated troponin. 5. Diabetes mellitus type 2. 6. S/P respiratory Arrest. Plan : 1. Vent support and Wean to CPAP as tolerated. 2. SBT trials daily. 3. Nebs qid , duoneb. 4. Tube feeds at 40 CC 5. Hold sedation. 6. BMP,CBC in am 7. Cont Antibiotics. Sheela Lau MD Jul 26, 2016 18:23
[2016-07-26] MEDS: ATORVASTATIN 80 MG TAB PO SCH (20:49)
[2016-07-26] MEDS: cloNIDine HCL 0.1 MG TAB PO PRN (23:56)
[2016-07-27] VITALS (13 sets, daily range): BP systolic 153–183; BP diastolic 77–87; PULSE 72–83; RESP 12–27; TEMP 97.8–98.8; O2SAT 94–99
[2016-07-27] MEDS: RESP: ALBUTEROL 2.5 MG/IPRATROPIUM 0.5 MG NEB (SCH) NEB ×7 (00:34→23:24)
[2016-07-27] MEDS: PROPOFOL 1000 MG/100 ML INJ 100 ML IV SCH ×3 (00:43→19:13)
[2016-07-27] MEDS: hydrALAZINE HCL 20 MG/ML VIAL IV PUSH PRN ×3 (01:44→09:39)
[2016-07-27] MEDS: CHLORHEXIDINE GLUCONATE 2 % 1 PACK (2 CLOTHS) TOP SCH (04:00)
[2016-07-27] MEDS: INSULIN NovoLIN REGULAR SUPPLEMENTAL SCALE SQ SCH ×3 (05:00→17:57)
--- NOTE | 2016-07-27 05:12 | RADRPT ---
EXAM DATE/TIME: 07/27/2016 04:08 [facility] COMPARISON: No previous studies available for comparison. INDICATIONS : Evaluate after respiratory failure. MEDICAL HISTORY : Hypertension. Congestive heart failure. Renal failure, chronic. SURGICAL HISTORY : None. ENCOUNTER: Subsequent ACUITY: 4 - 6 days PAIN SCORE: Non-responsive. LOCATION: Bilateral chest FINDINGS: Bibasilar consolidation and small effusions again noted, both side slightly worse in the interim. No pneumothorax seen. Mild cardiomegaly similar to before. Endotracheal tube tip is about 4 cm above the aryan. There is a nasogastric tube coursing into the s tomach. CONCLUSION: Worsening bibasilar consolidation and effusions. Adolfo Roman MD on July 27, 2016 at 5:09 Board Certified Radiologist. This report was verified electronically.
[2016-07-27] MEDS: NIFEdipine 20 MG CAP PO SCH ×3 (05:44→20:19)
[2016-07-27 06:26] LABS: AUTOMATED NEUTROPHIL # 3.5 TH/MM3 (1.8-7.7); BASOPHIL # 0.1 TH/MM3 (0-0.2); BASOPHIL % 0.9 % (0.0-2.0); EOSINOPHIL # 0.4 TH/MM3 (0-0.4); EOSINOPHIL % 6.7 % (0.0-4.0); HEMATOCRIT 28.6 % (35.0-46.0); LYMPH % 16.1 % (9.0-44.0); LYMPHOCYTE # 0.9 TH/MM3 (1.0-4.8); MEAN CELL VOLUME 70.2 FL (80.0-100.0); MEAN CORPUSCULAR HEMOGLOBIN 22.4 PG (27.0-34.0); MEAN CORPUSCULAR HGB CONC 31.9 % (32.0-36.0); NEUT % 64.3 % (16.0-70.0); PLATELET COUNT 196 TH/MM3 (150-450); RED BLOOD COUNT 4.08 MIL/MM3 (4.00-5.30); RED CELL DISTRIBUTION WIDTH 18.7 % (11.6-17.2); WHITE BLOOD COUNT 5.4 TH/MM3 (4.0-11.0)
[2016-07-27 06:30] LABS: BICARBONATE 23.9 MEQ/L (21.0-32.0); POTASSIUM 3.2 MEQ/L (3.5-5.1)
[2016-07-27 06:36] LABS: HEMO FLAGS AUTO DIFF
[2016-07-27] MEDS ORDERED: POLYETHYLENE GLYCOL 17 GM PKG PO ONE (07:15)
[2016-07-27] MEDS ORDERED: MINERAL OIL LIQUID 30 ML CUP PO ONE (07:15)
[2016-07-27] MEDS ORDERED: POTASSIUM CL 40 MEQ/30 ML LIQ UDC PO ONE (07:15)
[2016-07-27] MEDS ORDERED: PILL SPLITTER OTHER PRN (07:15)
--- NOTE | 2016-07-27 07:21 | HHI.CCPN ---
Subjective Remarks/Hospital Course 07/18: 50 y/o female with a history of chf, depression, htn, dm, and ckd presented to the ED on 07/15 with complaints of dyspnea, swelling in her lower extremities and a 50lb weight gain since last admission 06/03/16. Patient had gained 50 lbs in fluid from last admission. She presented with increased shortness of breath with intermittent chest pressure with no radiation or associated symptoms. She was admitted on 05/31/16 and diagnosed with CHF, discharged home on on Bumex. Patient states she recently ran out of meds and has not followed up with a doctor due to transportation issues. She is not from here and her pcp is 2 hours away and she does not want her kids to take off work to take her to appointments. She is hoping to move back in 2 weeks or so. She states she tried to call a special events driver to follow up but they required her records and she did not get them. Despite taking Bumex she states she has not had an increase in urination. Last admission 2d echo showed systolic dysfunction with EF 50%, she was seen by DR. Choudhury, and DR. Medley. Patient was admitted by hospitalist service. She was evaluated by Dr. Choudhury from cardiology who offered cardiac catheterization as patient did have an elevated troponin and previous abnormal stress test however she was concerned regarding ending up on hemodialysis so she refused. Patient was reportedly on nasal cannula earlier today however around 1:30 PM was noted to be lethargic and minimally responsive. Stroke alert was called. Head CT was negative for bleed. Recent had an ABG done which revealed pH of 7.0/PCO2 87/PO2 49. Critical care service was contacted by Dr. Mckeon. Both myself and Dr. Ott arrived at bedside. Patient was encephalopathic though arousable with painful stimuli occasional morning however not following commands. Her fingerstick glucose was in the 140s earlier. Decision was made to proceed with endotracheal intubation which was performed by Dr. Goff. A stat MRI brain was ordered to evaluate for CVA after discussion with Dr. Estes. 07/19: Awakens easily off sedation following commands this morning. On mechanical ventilation. MRI brain done yesterday did not show any acute event. 07/20 Patient was extubated yesterday went to IR for vascath placement and had resp arrest she was subsequently reintubated. Now sedated with Diprivan. Afebrile. MRI brain showed no evidence of acute infract. 07/21 Patient s/p extubation yesterday was given racemic Decadron 4mg IV x1 and racemic epi for ? stridor overnight placed on BIPAP 03/20 with 40% FIO2. ABG on BIPAP shows improvements in her resp acidosis with PH 7.30 and CO2: 48 from 57. Now of BIPAP and is on 6L oxygen. 07/22 No acute events overnight. Patient is on 4L oxygen with good sats. Afebrile. renal function improving with Cr: 3.22 and UO: 2850ml in 24 hrs 07/23 - CODE BLUE call today secondary to unresponsiveness. According to RN, patient received [place] at 5 PM. Not seen. Upon evaluation by RN patient was not breathing on nasal cannula. Received 1 mg of epinephrine and one ampule sodium bicarbonate. Intubated with 8.0 ET tube. ROSC after around 10 minutes. Transferred ISC. Occasionally taking large breaths otherwise unresponsive on the ventilator 07/24: Remains orally intubated on mechanical ventilation. Has not required any sedation since arrival to the ICU, remains encephalopathic/comatose. 07/25: Remains orally intubated on mechanical ventilation. Remains encephalopathic. Started on propofol for vent synchrony last night. Neurology following 07/26 Patient remains intubated, off Diprivan this morning placed on CPAP with PS 10, PEEP:5 and FIO2 40%. Afebrile. Subjective 07/27: Afebrile. Following commands with upper extremity according to overnight RN. Currently opens eyes and withdrawals to pain in bilateral upper extremities. Upper toes bilateral lower extremities. No bowel movement 24 hours. Tolerating tube feeds with Nepro at 40 cc an hour. Attempted to self extubated yesterday. Objective Vital Signs Date Time Temp Pulse Resp B/P Pulse Ox O2 Delivery O2 Flow Rate FiO2 07/27/16 04:00 98.7 72 18 166/77 98 07/27/16 04:00 40 07/26/16 19:00 Mechanical Ventilator 07/23/16 19:10 15.00 Intake and Output 07/26/16 07/26/16 07/27/16 08:00 16:00 00:00 Intake Total 820 ml 1093 ml 675 ml Output Total 860.0 ml 800 ml 1050 ml Balance -40.0 ml 293 ml -375 ml Result Diagram: 07/27/1652907/27/16529 Other Results Microbiology Date/Time Procedure Status Source Growth 07/25/16 04:05 Aerobic Blood Culture - Preliminary Resulted Blood Peripheral NO GROWTH IN 1 DAY 07/25/16 04:05 Anaerobic Blood Culture - Preliminary Resulted Blood Peripheral NO GROWTH IN 1 DAY 07/23/16 23:45 Urine Culture - Final Complete Urine Catheterized Urine NO GROWTH IN 48 HOURS. 07/23/16 23:45 Gram Stain - Final Complete Sputum Endotracheal 07/23/16 23:45 Sputum Culture - Final Complete Sputum Endotracheal RARE GROWTH NORMAL RESPIRATORY [facility] Imaging Last Impressions Chest X-Ray 07/27/16 0000 Signed Impressions: Service Date/Time: Wednesday, July 27, 2016 04:08 - CONCLUSION: Worsening bibasilar consolidation and effusions. Adolfo Roman MD Brain MRI 07/25/16 0000 Signed Impressions: Service Date/Time: July 17:05 - CONCLUSION: 1. No acute hemorrhage, mass or infarction. 2. Scattered foci of increased signal noted most consistent with chronic small vessel ischemic change. This is not significantly changed. 3. Fluid and high signal is now noted in the mastoid air cells bilaterally consistent with mastoiditis. Grady Hale MD Head CT 07/23/16 0000 Signed Impressions: Service Date/Time: Saturday, July 23, 2016 20:54 - CONCLUSION: Normal examination for a patient of this age. No significant change has occurred. George Choi MD Consultation 07/19/16 0000 Signed Impressions: Service Date/Time: Tuesday, July 19, 2016 00:00 - CONCLUSION: Procedure not performed secondary to cardiopulmonary arrest. Emre Daniel MD Abdomen X-Ray 07/18/16 0000 Signed Impressions: Service Date/Time: July 15:39 - CONCLUSION: No evidence of obstruction. No MRI incompatible foreign body is identified. Eliezer Shay MD Objective Remarks GENERAL: 50-year-old female, critically ill currently orotracheally intubated SKIN: Warm and dry. Right thigh with open vesicle lesion draining/covered with Mepilex HEAD: Normocephalic. EYES: PERRL 4 mm bilaterally and reactive NECK: Supple, trachea midline. No JVD or lymphadenopathy. Left IJ clean dry and intact with chlorhexidine covering CARDIOVASCULAR: RRR. S1, S2. No S4. Without murmur RESPIRATORY: On mechanical ventilation, Diminished due to body habitus. Breath sounds equal bilaterally. Scattered rhonchi appreciated lower lobes. GASTROINTESTINAL: Abdomen soft, obese. Hypoactive bowel sounds MUSCULOSKELETAL: With peripheral upper and lower extremity nonpitting peripheral edema. Neuro: Comatose, orally intubated on mechanical ventilation. Positive gag. Positive corneal reflex. Withdraws to pain in bilateral upper and lower extremities. Urinary Catheter: Yes Assessment to: Continue Calderon insert reason: Prolonged Immobilization Vascular Central Line Catheter: Yes Assessment to: Continue Date of Insertion: Jul 23, 2016 Line: Central Venous Catheter Side: Left Location: Internal, Jugular A/P Assessment and Plan Neuro/Psych: Toxic metabolic encephalopathy/history CO2 retention History of depression Peripheral neuropathy Propofol for vent synchrony as needed. Daily sedation vacation. Neuro is following peripherally- Dr. Estes Acetaminophen for fever Baby aspirin 81 mg for now will be continued Holding Elavil 50 mill grams by mouth daily at bedtime in light of altered mental status. Continue gabapentin 300 mg daily for neuropathy. On 3 times a day at home. Holding Xanax 0.25 mill grams by mouth twice a day for anxiety. 07/25 MRI brain: No acute hemorrhage, mass or infarction. Scattered foci of increased signal noted most consistent with chronic small vessel ischemic change. Mastoiditis. 07/18 MRI brain: White matter hyperintensities prominent for age indicating possible demyelinating disorder. No evidence of acute infarct. 07/18 CT brain: No acute infarct 07/19 EEG: Mild- mod encephalopathy CV: Hypertension CHF - diastolic Non-STEMI Echocardiogram 05/21 revealed EF 50%. Mildly dilated ventricle. Diffuse hypokinesis. Echocardiogram 07/23 reveals EF 45-50%. No regional motion abnormality. POOL 59 mmHg. Mild TR. On Coreg 25mg BID, hydralazine 50mg TID,, lisinopril 20 daily, nifedipine 20 mg Q8 Increase hydralazine to 100 mg 3 times a day. Received when necessary overnight including IV hydralazine and clonidine Home medications Norvasc 10 mg daily, hydralazine 50 3 times a day, Coreg 25 twice a day Continue atorvastatin 80 mg daily's for dyslipidemia. Continued Bumex increased to 2 mg IV twice a day for diuresis Followed by cardiology. They believe troponin likely due to fluid overloaded state, HTN episode, CKD... previous stress test showing mild small lateral wall defect, offered diagnostic cath with a plan for staged intervention if needed Resp: Acute hypoxemic respiratory failure ACV 18/550/5/40 Continue with vent support keep sat >92% Ventilator bundle Bronchodilator therapy every 4 hours and as needed SBT daily as jose luis Chest x-ray 07/27 revealed increasing bilateral lower lobe pulmonary edema/ effusion. Crease diuresis see above Follow-up chest x-ray in a.m. GI: Continue tube feeds- On Nepro@40ml/hr advance to goal rate Protonix for GI prophylaxis. Pepcid 40 mg daily at home Colace/ Senokot twice daily for bowel regimen 1 dose of MiraLAX and mineral oil today. Endo: Diabetes mellitus Sliding-scale insulin with Accu checks every 6 hours to maintain euglycemia.. 0 units sliding-scale insulin past 24 hours On Lantus 40 units at night at home. Along with lispro 12 units twice a day and glipizide 2.5 mg daily. Renal: Acute on chronic kidney injury Nephrotic syndrome Followed by nephrology. No indication for current hemodialysis On Bumex to 1 mg IV BID -> increased to 2 mg twice a day Monitor renal function, I/O's, avoid nephrotoxins. Creatinine trending down currently 2.6 Heme: Anemia/microcytic Currently on iron sulfate 325 by mouth twice a day/home medication. Monitor CBC. No indication for transfusion of blood proximal at this time ID: MRSA pneumonia Pertinent cultures 07/20 - sputum - MRSA Blood culture 07/24 and 07/25 no growth Continue abx per ID (zyvox)monitor for sigsn of infections ( Fever, WBC) Cefepime discontinued yesterday FEN: Hypokalemia 40 mEq by mouth 1. Recheck in at 1500 hrs. MSK: Morbid obesity Osteoporosis Holding Drisdol 50,000 units every Friday. Weight loss encouraged Access - Left IJ CVL day 4 Prophylaxis - GI - Protonix - DVT - SCD/heparin Critical Care: The total critical care time was 35 minutes. Time to perform other separately billable procedures was not included in the critical care time. Natanael Mckeon MD Jul 27, 2016 07:21
[2016-07-27] MEDS: CHLORHEXIDINE 0.12% (ORAL KIT) 15 ML CUP MT SCH ×4 (07:31→20:20)
[2016-07-27] MEDS: SODIUM CHLORIDE 0.9% FLUSH 5 ML FLUSH IVF SCH ×3 (07:32→20:19)
[2016-07-27] MEDS: BUMETANIDE INJ 1 MG/4 ML VIAL IV PUSH SCH ×2 (07:58→17:58)
[2016-07-27] MEDS: CARVEDILOL 12.5 MG TAB PO SCH ×2 (07:58→20:19)
[2016-07-27] MEDS: DOCUSATE SODIUM 100 MG CAP PO SCH ×2 (07:58→20:19)
[2016-07-27] MEDS: SENNOSIDES 8.6 MG TAB PO SCH ×2 (07:59→20:19)
[2016-07-27] MEDS: LISINOPRIL 20 MG TAB PO SCH (07:59)
[2016-07-27] MEDS: hydrALAZINE HCL 50 MG TAB PO SCH ×3 (07:59→18:01)
[2016-07-27] MEDS: GABAPENTIN 300 MG CAP PO SCH (07:59)
[2016-07-27] MEDS: ASPIRIN EC 81 MG TABEC PO SCH (07:59)
[2016-07-27] MEDS: MUPIROCIN 2% OINT 1 APPLIC/GM SYR EACH NARE SCH ×2 (08:00→20:18)
[2016-07-27] MEDS: ALBUMIN HUMAN 25% 25 GM/100 ML BAGP IV SCH ×2 (08:00→17:56)
[2016-07-27] MEDS: LINEZOLID 600 MG PREMIX 300 ML IV SCH ×2 (08:00→20:18)
[2016-07-27] MEDS: PANTOPRAZOLE SODIUM 40 MG VIAL IV SCH (08:00)
[2016-07-27] MEDS: FERROUS SULFATE 325 MG (65 MG ELEMENTAL IRON) TAB PO SCH ×2 (08:00→20:18)
[2016-07-27] MEDS: HEPARIN SODIUM - SQ 10,000 UNITS/ML VIAL SQ SCH ×2 (08:01→20:18)
[2016-07-27 08:37] LABS: SCAN/DIFF AUTO DIFF CONFIRMED
[2016-07-27] MEDS ORDERED: hydrALAZINE HCL 50 MG TAB PO SCH (09:00)
[2016-07-27] MEDS: cloNIDine HCL 0.1 MG TAB PO PRN (09:05)
[2016-07-27] MEDS: NITROGLYCERIN 2% OINT 1 GM PACKET TOPICAL PRN (09:05)
[2016-07-27] MEDS: CLEVIDIPINE INJ 50 ML IV SCH ×4 (11:29→20:18)
--- NOTE | 2016-07-27 13:26 | HHI.NPPN ---
Subjective History of Present Illness 50 year old with CKD 4/5 Diabetes Nephrotic range proteinuria Additional Remarks Patient remain intubated , has some improvement in the response, following some verbal commands. Review of Systems General Constitutional: Fatigue Cardiovascular Cardiac: Edema Objective Data Data 07/26/16 07/27/16 19:00 07:00 Intake Total 1093 ml 1158 ml Output Total 800 ml 1650 ml Balance 293 ml -492 ml IV Total 798 ml 585 ml Tube Feeding 135 ml 573 ml Albumin 100 ml Tube Irrigant 60 ml Output Urine Total 800 ml 1650 ml Tube Feeding Residual Discard 0 ml 0 ml Vital Signs Date Time Temp Pulse Resp B/P Pulse Ox O2 Delivery O2 Flow Rate FiO2 07/27/16 12:00 98.3 82 20 183/87 95 07/27/16 12:00 40 07/27/16 11:45 99 40 07/27/16 08:00 83 07/27/16 08:00 40 07/27/16 08:00 98.8 83 27 171/81 96 07/27/16 07:47 40 07/27/16 07:47 94 40 07/27/16 07:00 96 Mechanical Ventilator 07/27/16 04:00 98.7 72 18 166/77 98 07/27/16 04:00 40 07/27/16 03:23 98 40 07/27/16 00:34 98 40 07/27/16 00:00 40 07/27/16 00:00 98.6 76 18 169/81 97 07/26/16 20:10 97 40 07/26/16 20:00 40 07/26/16 20:00 89 07/26/16 20:00 98.7 88 18 171/87 97 07/26/16 19:00 98 Mechanical Ventilator 07/26/16 17:23 99 40 07/26/16 16:00 99.1 81 27 162/77 97 07/26/16 16:00 40 -: 07/27/16 0530 07/27/16 0530 Physical Exam General Appearance: Obese Appearance Remarks Intubated and sedated. Throat Throat Exam: Oral Mucosa [place] & Moist Neck Neck Exam: Neck Supple Pulmonary Resp Exam: Crackles, Rhonchi, Decreased Bases, Diminished Breath Sounds Cardiology CV Exam: Regular, Normal Sinus Rhythm Gastrointestinal/Abdomen GI Exam: Soft, Non-Tender, Distended Extremeties Extremities Exam: Pitting Edema, Dependent Edema Neurologic Neuro Exam: Sedated Assessment/Plan Problem List: (1) Stage 4 chronic kidney disease Plan: Patient with advanced kidney disease and had the workup in May. including MATEUS/SPEP Neg Nephrotic proteinuria 10 grams. Urine out put increased, Most likely has advance Diabetic Nephropathy. Urine out put is good, on Bumex. Creatinine continue to improve. Was on CPAP and now Bumex increased. BP was elevated, started on clonidine. (2) Nephrotic syndrome Plan: Protein to creatinine ratio above 10 10.52 (3) Acute exacerbation of CHF (congestive heart failure) Plan: This is likely due to chronic kidney disease and diastolic dysfunction (4) Diabetes Plan: Advance manifestations diabetic nephropathy, retinopathy and neuropathy (5) HTN (hypertension) Plan: Continue to monitor (6) Respiratory failure Plan Continue antibiotics. Problem Qualifiers (1) Acute exacerbation of CHF (congestive heart failure): Qualified Code: I50.9 - Acute on chronic congestive heart failure, unspecified congestive heart failure type (2) Diabetes: (3) HTN (hypertension): Qualified Code: I10 - Essential hypertension (4) Respiratory failure: Qualified Code: J96.01 - Acute respiratory failure with hypoxia Mia Medley MD Jul 27, 2016 13:26
[2016-07-27] MEDS ORDERED: cloNIDine HCL 0.1 MG TAB PO SCH (14:00)
[2016-07-27] MEDS: cloNIDine HCL 0.1 MG TAB PO SCH (20:19)
[2016-07-27] MEDS: ATORVASTATIN 80 MG TAB PO SCH (20:19)
[2016-07-28] VITALS (14 sets, daily range): BP systolic 139–162; BP diastolic 70–88; PULSE 62–75; RESP 14–29; TEMP 97.9–99.1; O2SAT 93–98
[2016-07-28] MEDS: INSULIN NovoLIN REGULAR SUPPLEMENTAL SCALE SQ SCH ×5 (00:32→22:51)
[2016-07-28] MEDS: CLEVIDIPINE INJ 50 ML IV SCH ×7 (01:34→22:38)
[2016-07-28] MEDS: PROPOFOL 1000 MG/100 ML INJ 100 ML IV SCH ×3 (01:34→22:36)
[2016-07-28] MEDS: RESP: ALBUTEROL 2.5 MG/IPRATROPIUM 0.5 MG NEB (SCH) NEB ×5 (03:52→23:22)
[2016-07-28] MEDS: CHLORHEXIDINE GLUCONATE 2 % 1 PACK (2 CLOTHS) TOP SCH (04:00)
[2016-07-28] MEDS: NIFEdipine 20 MG CAP PO SCH ×3 (05:38→22:35)
[2016-07-28] MEDS: cloNIDine HCL 0.1 MG TAB PO SCH ×3 (05:39→22:35)
--- NOTE | 2016-07-28 06:03 | RADRPT ---
EXAM DATE/TIME: 07/28/2016 04:44 [facility] COMPARISON: CHEST SINGLE AP, July 27, 2016, 4:08. INDICATIONS : Shortness of breath. MEDICAL HISTORY : Hypertension. SURGICAL HISTORY : Coronary artery stent. ENCOUNTER: Subsequent ACUITY: 1 week PAIN SCORE: Non-responsive. LOCATION: Bilateral chest FINDINGS: Basilar consolidation and small effusions persist, not significantly changed. No pneumothorax seen. M ild cardiomegaly is stable. Endotracheal tube tip is approximately 3 cm above the aryan. Nasogastric tube courses into the stoma ch. CONCLUSION: No significant change. Adolfo Roman MD on July 28, 2016 at 6:01 Board Certified Radiologist. This report was verified electronically.
[2016-07-28 06:19] LABS: ALKALINE PHOSPHATASE 96 U/L (45-117); ALT (GPT) 19 U/L (10-53); ANION GAP 10 MEQ/L (5-15); AST (GOT) 37 U/L (15-37); BICARBONATE 23.4 MEQ/L (21.0-32.0); BLOOD UREA NITROGEN 37 MG/DL (7-18); CHLORIDE 107 MEQ/L (98-107); CREATINE KINASE 363 U/L (26-192); GLOMERULAR FILTRATION RATE 18 ML/MIN (>89); SODIUM (NA) 140 MEQ/L (136-145); TOTAL BILIRUBIN ADULT 0.4 MG/DL (0.2-1.0)
[2016-07-28 06:30] LABS: POTASSIUM 3.9 MEQ/L (3.5-5.1)
[2016-07-28 06:55] LABS: CKMB 2.5 NG/ML (0.5-3.6)
[2016-07-28] MEDS: SODIUM CHLORIDE 0.9% FLUSH 5 ML FLUSH IVF SCH ×3 (07:20→19:57)
[2016-07-28] MEDS: CHLORHEXIDINE 0.12% (ORAL KIT) 15 ML CUP MT SCH ×4 (08:00→19:58)
[2016-07-28] MEDS: PANTOPRAZOLE SODIUM 40 MG VIAL IV SCH (08:10)
[2016-07-28] MEDS: GABAPENTIN 300 MG CAP PO SCH (08:10)
[2016-07-28] MEDS: ALBUMIN HUMAN 25% 25 GM/100 ML BAGP IV SCH ×2 (08:10→17:00)
[2016-07-28] MEDS: LINEZOLID 600 MG PREMIX 300 ML IV SCH ×2 (08:10→19:57)
[2016-07-28] MEDS: MUPIROCIN 2% OINT 1 APPLIC/GM SYR EACH NARE SCH ×2 (08:11→19:59)
[2016-07-28] MEDS: SENNOSIDES 8.6 MG TAB PO SCH ×2 (08:11→20:00)
[2016-07-28] MEDS: FERROUS SULFATE 325 MG (65 MG ELEMENTAL IRON) TAB PO SCH ×2 (08:11→20:00)
[2016-07-28] MEDS: DOCUSATE SODIUM 100 MG CAP PO SCH ×2 (08:11→19:57)
[2016-07-28] MEDS: hydrALAZINE HCL 50 MG TAB PO SCH ×3 (08:11→17:58)
[2016-07-28] MEDS: HEPARIN SODIUM - SQ 10,000 UNITS/ML VIAL SQ SCH ×2 (08:11→19:57)
[2016-07-28] MEDS: ASPIRIN EC 81 MG TABEC PO SCH (08:11)
[2016-07-28] MEDS: BUMETANIDE INJ 1 MG/4 ML VIAL IV PUSH SCH ×2 (08:11→17:58)
[2016-07-28] MEDS: CARVEDILOL 12.5 MG TAB PO SCH ×2 (08:11→19:59)
[2016-07-28] MEDS: LISINOPRIL 20 MG TAB PO SCH (08:11)
--- NOTE | 2016-07-28 11:38 | HHI.CCPN ---
Subjective Remarks/Hospital Course 07/18: 50 y/o female with a history of chf, depression, htn, dm, and ckd presented to the ED on 07/15 with complaints of dyspnea, swelling in her lower extremities and a 50lb weight gain since last admission 06/03/16. Patient had gained 50 lbs in fluid from last admission. She presented with increased shortness of breath with intermittent chest pressure with no radiation or associated symptoms. She was admitted on 05/31/16 and diagnosed with CHF, discharged home on on Bumex. Patient states she recently ran out of meds and has not followed up with a doctor due to transportation issues. She is not from here and her pcp is 2 hours away and she does not want her kids to take off work to take her to appointments. She is hoping to move back in 2 weeks or so. She states she tried to call a flotation tender helper to follow up but they required her records and she did not get them. Despite taking Bumex she states she has not had an increase in urination. Last admission 2d echo showed systolic dysfunction with EF 50%, she was seen by DR. Choudhury, and DR. Medley. Patient was admitted by hospitalist service. She was evaluated by Dr. Choudhruy from cardiology who offered cardiac catheterization as patient did have an elevated troponin and previous abnormal stress test however she was concerned regarding ending up on hemodialysis so she refused. Patient was reportedly on nasal cannula earlier today however around 1:30 PM was noted to be lethargic and minimally responsive. Stroke alert was called. Head CT was negative for bleed. Recent had an ABG done which revealed pH of 7.0/PCO2 87/PO2 49. Critical care service was contacted by Dr. Mckeon. Both myself and Dr. Ott arrived at bedside. Patient was encephalopathic though arousable with painful stimuli occasional morning however not following commands. Her fingerstick glucose was in the 140s earlier. Decision was made to proceed with endotracheal intubation which was performed by Dr. Goff. A stat MRI brain was ordered to evaluate for CVA after discussion with Dr. Estes. 07/19: Awakens easily off sedation following commands this morning. On mechanical ventilation. MRI brain done yesterday did not show any acute event. 07/20 Patient was extubated yesterday went to IR for vascath placement and had resp arrest she was subsequently reintubated. Now sedated with Diprivan. Afebrile. MRI brain showed no evidence of acute infract. 07/21 Patient s/p extubation yesterday was given racemic Decadron 4mg IV x1 and racemic epi for ? stridor overnight placed on BIPAP 03/20 with 40% FIO2. ABG on BIPAP shows improvements in her resp acidosis with PH 7.30 and CO2: 48 from 57. Now of BIPAP and is on 6L oxygen. 07/22 No acute events overnight. Patient is on 4L oxygen with good sats. Afebrile. renal function improving with Cr: 3.22 and UO: 2850ml in 24 hrs 07/23 - CODE BLUE call today secondary to unresponsiveness. According to RN, patient received [place] at 5 PM. Not seen. Upon evaluation by RN patient was not breathing on nasal cannula. Received 1 mg of epinephrine and one ampule sodium bicarbonate. Intubated with 8.0 ET tube. ROSC after around 10 minutes. Transferred ISC. Occasionally taking large breaths otherwise unresponsive on the ventilator 07/24: Remains orally intubated on mechanical ventilation. Has not required any sedation since arrival to the ICU, remains encephalopathic/comatose. 07/25: Remains orally intubated on mechanical ventilation. Remains encephalopathic. Started on propofol for vent synchrony last night. Neurology following 07/26 Patient remains intubated, off Diprivan this morning placed on CPAP with PS 10, PEEP:5 and FIO2 40%. Afebrile. Subjective 07/27: Afebrile. Following commands with upper extremity according to overnight RN. Currently opens eyes and withdrawals to pain in bilateral upper extremities. Upper toes bilateral lower extremities. No bowel movement 24 hours. Tolerating tube feeds with Nepro at 40 cc an hour. Attempted to self extubated yesterday. 07/28: The patient is responsive and following commands, tolerated CPAP trials for 16 hours yesterday. Increasing amounts of antihypertensive medication the patient continues on Cleviprex 6 mg/hour, Clonidine dosage increased 0.2 q 8hr. will continue on CPAP trials today. Objective Vital Signs Date Time Temp Pulse Resp B/P Pulse Ox O2 Delivery O2 Flow Rate FiO2 07/28/16 08:20 40 07/28/16 08:00 65 07/28/16 08:00 98.8 23 146/74 97 07/28/16 07:00 Mechanical Ventilator Intake and Output 07/27/16 07/27/16 07/28/16 08:00 16:00 00:00 Intake Total 483 ml 1446 ml 978 ml Output Total 600.0 ml 700 ml 250 ml Balance -117.0 ml 746 ml 728 ml Result Diagram: 07/27/16 0530 07/28/16 0457 Imaging Last Impressions Chest X-Ray 07/27/16 0000 Signed Impressions: Service Date/Time: Wednesday, July 27, 2016 04:08 - CONCLUSION: Worsening bibasilar consolidation and effusions. Adolfo Roman MD Brain MRI 07/25/16 0000 Signed Impressions: Service Date/Time: July 17:05 - CONCLUSION: 1. No acute hemorrhage, mass or infarction. 2. Scattered foci of increased signal noted most consistent with chronic small vessel ischemic change. This is not significantly changed. 3. Fluid and high signal is now noted in the mastoid air cells bilaterally consistent with mastoiditis. Grady Hale MD Head CT 07/23/16 0000 Signed Impressions: Service Date/Time: Saturday, July 23, 2016 20:54 - CONCLUSION: Normal examination for a patient of this age. No significant change has occurred. George Choi MD Consultation 07/19/16 0000 Signed Impressions: Service Date/Time: Tuesday, July 19, 2016 00:00 - CONCLUSION: Procedure not performed secondary to cardiopulmonary arrest. Emre Daniel MD Abdomen X-Ray 07/18/16 0000 Signed Impressions: Service Date/Time: July 15:39 - CONCLUSION: No evidence of obstruction. No MRI incompatible foreign body is identified. Eliezer Shay MD Objective Remarks GENERAL: 50-year-old female, critically ill currently orotracheally intubated SKIN: Warm and dry. Right thigh with open vesicle lesion draining/covered with Mepilex HEAD: Normocephalic. EYES: PERRL 4 mm bilaterally and reactive NECK: Supple, trachea midline. Unable to assess JVD . Left IJ clean dry and intact with chlorhexidine covering CARDIOVASCULAR: RRR. S1, S2. No S4. Without murmur RESPIRATORY: On mechanical ventilation, Diminished due to body habitus. Breath sounds equal bilaterally. GASTROINTESTINAL: Abdomen soft, obese. Hypoactive bowel sounds MUSCULOSKELETAL: B/L edema, upper and lower extremities. Neuro: RASS -2, on propofol at 15mcgs/kg/min, orally intubated on mechanical ventilation. Following commands. Urinary Catheter: Yes Calderon insert reason: ICU Pt Getting Diuretics Vascular Central Line Catheter: Yes Date of Insertion: Jul 23, 2016 Line: Central Venous Catheter Side: Left Location: Internal, Jugular A/P Assessment and Plan Neuro/Psych: Toxic metabolic encephalopathy/history CO2 retention History of depression Peripheral neuropathy Propofol for vent synchrony as needed. Daily sedation vacation. Neuro is following peripherally- Dr. Estes Acetaminophen for temp >101.0 Baby aspirin 81 mg for now will be continued Holding Elavil 50 mill grams by mouth daily at bedtime in light of altered mental status. Continue gabapentin 300 mg daily for neuropathy (home med). Holding Xanax 0.25 mill grams by mouth twice a day for anxiety. 07/25 MRI brain: No acute hemorrhage, mass or infarction. Scattered foci of increased signal noted most consistent with chronic small vessel ischemic change. Mastoiditis. 07/18 MRI brain: White matter hyperintensities prominent for age indicating possible demyelinating disorder. No evidence of acute infarct. 07/18 CT brain: No acute infarct 07/19 EEG: Mild- mod encephalopathy CV: Hypertension CHF - diastolic Non-STEMI Echocardiogram 05/21 revealed EF 50%. Mildly dilated ventricle. Diffuse hypokinesis. Echocardiogram 07/23 reveals EF 45-50%. No regional motion abnormality. POOL 59 mmHg. Mild TR. On Coreg 25mg BID, hydralazine 50mg TID, lisinopril 20 daily, nifedipine 20 mg Q8 Increase hydralazine to 100 mg 3 times a day(07/27). Received when necessary overnight including IV hydralazine and clonidine Home medications Norvasc 10 mg daily, hydralazine 50 3 times a day, Coreg 25 twice a day Continue atorvastatin 80 mg daily's for dyslipidemia. Continued Bumex increased to 2 mg IV twice a day for diuresis , only 500 cc UOP over the last 12 hours Followed by cardiology. They believe troponin likely due to fluid overloaded state, HTN episode, CKD... previous stress test showing mild small lateral wall defect, offered diagnostic cath with a plan for staged intervention if needed Resp: Acute hypoxemic respiratory failure ACV 18/550/5/40 Continue with vent support keep sat >92% Ventilator bundle Bronchodilator therapy every 4 hours and as needed CPAP trials today Chest x-ray 07/27 revealed increasing bilateral lower lobe pulmonary edema/ effusion. Follow-up chest x-ray . GI: Continue tube feeds- On Nepro@40ml/hr advance to goal rate Protonix for GI prophylaxis. Pepcid 40 mg daily at home Colace/ Senokot twice daily for bowel regimen 1 dose of MiraLAX and mineral oil, still no BM will add PRN suppository, and continue Miralax Endo: Diabetes mellitus Sliding-scale insulin with Accu checks every 6 hours to maintain euglycemia.. 0 units sliding-scale insulin past 24 hours On Lantus 40 units at night at home. Along with lispro 12 units twice a day and glipizide 2.5 mg daily. Renal: Acute on chronic kidney injury Nephrotic syndrome Followed by nephrology. No indication for current hemodialysis On Bumex to 1 mg IV BID -> increased to 2 mg twice a day Monitor renal function, I/O's, avoid nephrotoxins. Creatinine 2.7 Heme: Anemia/microcytic Currently on iron sulfate 325mg PO twice a day/home medication. Monitor CBC. No indication for transfusion of blood proximal at this time ID: MRSA pneumonia Pertinent cultures 07/20 - sputum - MRSA Blood culture 07/24 and 07/25 no growth Continue abx per ID (zyvox)monitor for sigsn of infections ( Fever, WBC) Cefepime discontinued yesterday FEN: Hypokalemia-resolved Electrolyte replacement per ICU protocol MSK: Morbid obesity Osteoporosis Holding Drisdol 50,000 units every Friday. Weight loss encouraged Access - Left IJ CVL day 5 Prophylaxis - GI - Protonix - DVT - SCD/heparin Critical Care: The total critical care time was 31 minutes. Time to perform other separately billable procedures was not included in the critical care time. Physician Susan Farrar MD Jul 28, 2016 11:38
[2016-07-28 12:02] LABS: AUTOMATED NEUTROPHIL # 3.9 TH/MM3 (1.8-7.7); BASOPHIL # 0.1 TH/MM3 (0-0.2); EOSINOPHIL # 0.3 TH/MM3 (0-0.4); EOSINOPHIL % 5.8 % (0.0-4.0); HEMATOCRIT 27.9 % (35.0-46.0); LYMPH % 12.1 % (9.0-44.0); LYMPHOCYTE # 0.7 TH/MM3 (1.0-4.8); MEAN CORPUSCULAR HEMOGLOBIN 22.5 PG (27.0-34.0); MEAN CORPUSCULAR HGB CONC 32.1 % (32.0-36.0); NEUT % 70.1 % (16.0-70.0); PLATELET COUNT 182 TH/MM3 (150-450); RED BLOOD COUNT 3.98 MIL/MM3 (4.00-5.30); RED CELL DISTRIBUTION WIDTH 18.5 % (11.6-17.2); WHITE BLOOD COUNT 5.6 TH/MM3 (4.0-11.0)
[2016-07-28 12:05] LABS: HEMO FLAGS AUTO DIFF
--- NOTE | 2016-07-28 12:26 | HHI.NPPN ---
Subjective History of Present Illness 50 year old with CKD 4/5 Diabetes Nephrotic range proteinuria Additional Remarks Patient remain intubated , more alert, following verbal commands. Review of Systems General Constitutional: Fatigue Cardiovascular Cardiac: Edema Objective Data Data 07/27/16 07/28/16 19:00 07:00 Intake Total 1446 ml 1632 ml Output Total 700 ml 480 ml Balance 746 ml 1152 ml IV Total 939 ml 1007 ml Tube Feeding 307 ml 625 ml Albumin 100 ml Tube Irrigant 100 ml Output Urine Total 700 ml 480 ml Tube Feeding Residual Discard 0 ml 0 ml Vital Signs Date Time Temp Pulse Resp B/P Pulse Ox O2 Delivery O2 Flow Rate FiO2 07/28/16 08:20 40 07/28/16 08:00 65 07/28/16 08:00 98.8 65 23 146/74 97 07/28/16 08:00 40 07/28/16 07:51 94 40 07/28/16 07:00 95 Mechanical Ventilator 07/28/16 04:00 98.0 64 18 144/74 93 07/28/16 04:00 40 07/28/16 03:52 95 40 07/28/16 00:00 40 07/28/16 00:00 97.9 62 18 139/70 94 07/27/16 23:25 95 40 07/27/16 20:00 97.8 74 18 153/78 96 07/27/16 20:00 40 07/27/16 20:00 75 07/27/16 19:58 99 40 07/27/16 19:00 94 Mechanical Ventilator 07/27/16 16:00 97.9 80 12 156/81 95 07/27/16 16:00 40 07/27/16 15:46 96 40 -: 07/28/16 1112 07/28/16 0457 Physical Exam General Appearance: Obese Appearance Remarks Intubated and sedated. Throat Throat Exam: Oral Mucosa [place] & Moist Neck Neck Exam: Neck Supple Pulmonary Resp Exam: Crackles, Rhonchi, Decreased Bases, Diminished Breath Sounds Cardiology CV Exam: Regular, Normal Sinus Rhythm Gastrointestinal/Abdomen GI Exam: Soft, Non-Tender, Distended Extremeties Extremities Exam: Pitting Edema, Dependent Edema Neurologic Neuro Exam: Sedated Assessment/Plan Problem List: (1) Stage 4 chronic kidney disease Plan: Patient with advanced kidney disease and had the workup in Dec. including MATEUS/SPEP Neg Nephrotic proteinuria 10 grams. Urine out put increased, Most likely has advance Diabetic Nephropathy. Urine out put is good, on Bumex. Creatinine continue to improve. On Bumex, try to keep in negative fluid balance. Follow the urine out put and BMP. Weaning as tolerated. (2) Nephrotic syndrome Plan: Protein to creatinine ratio above 10 10.52 (3) Acute exacerbation of CHF (congestive heart failure) Plan: This is likely due to chronic kidney disease and diastolic dysfunction (4) Diabetes Plan: Advance manifestations diabetic nephropathy, retinopathy and neuropathy (5) HTN (hypertension) Plan: Continue to monitor (6) Respiratory failure Plan Continue antibiotics. Problem Qualifiers (1) Acute exacerbation of CHF (congestive heart failure): Qualified Code: I50.9 - Acute on chronic congestive heart failure, unspecified congestive heart failure type (2) Diabetes: (3) HTN (hypertension): Qualified Code: I10 - Essential hypertension (4) Respiratory failure: Qualified Code: J96.01 - Acute respiratory failure with hypoxia Mia Medley MD Jul 28, 2016 12:26
[2016-07-28 12:58] LABS: SCAN/DIFF AUTO DIFF CONFIRMED
[2016-07-28] MEDS: ATORVASTATIN 80 MG TAB PO SCH (20:00)
[2016-07-29] VITALS (13 sets, daily range): BP systolic 133–166; BP diastolic 64–79; PULSE 58–68; RESP 18–19; TEMP 96.9–99.3; O2SAT 93–99
[2016-07-29] MEDS: PROPOFOL 1000 MG/100 ML INJ 100 ML IV SCH ×7 (01:42→22:08)
[2016-07-29] MEDS: RESP: ALBUTEROL 2.5 MG/IPRATROPIUM 0.5 MG NEB (SCH) NEB ×6 (03:39→23:33)
[2016-07-29] MEDS: CHLORHEXIDINE GLUCONATE 2 % 1 PACK (2 CLOTHS) TOP SCH (04:00)
[2016-07-29] MEDS: CLEVIDIPINE INJ 50 ML IV SCH ×3 (04:48→12:23)
[2016-07-29] MEDS: NIFEdipine 20 MG CAP PO SCH ×3 (05:06→21:07)
[2016-07-29] MEDS: INSULIN NovoLIN REGULAR SUPPLEMENTAL SCALE SQ SCH ×4 (05:06→22:38)
[2016-07-29] MEDS: cloNIDine HCL 0.1 MG TAB PO SCH ×3 (05:07→21:05)
[2016-07-29 06:32] LABS: BLOOD GAS BASE EXCESS -0.6 mmol/L (-2-2); BLOOD GAS CARBOXYHEMOGLOBIN 1.4 % (0-4); BLOOD GAS HCO3 23 mmol/L (22-26); BLOOD GAS O2 HGB SATURATION 90 % (90-100); BLOOD GAS OXYGEN CONTENT 11.5 Vol % (12.0-20.0); BLOOD GAS PCO2 38 mmHg (38-42); BLOOD GAS PO2 67 mmHg (61-120); CRITICAL VALUE NO; DRAW SITE RT RADIAL; FIO2 40 %; NUMBER OF ARTERIAL PUNCTURES 1; OXYGEN DEVICE VENTILATOR; STAT YES; TEMP CORR TO 98.6; ULNAR PULSE PRESENT; VENT SETTINGS AC/18/550/+5
[2016-07-29] MEDS ORDERED: ALTEPLASE RECOMBINANT 2 MG VIAL IV ONE ×3 (06:45)
--- NOTE | 2016-07-29 07:03 | RADRPT ---
EXAM DATE/TIME: 07/29/2016 06:31 [facility] COMPARISON: CHEST SINGLE AP, July 28, 2016, 4:44. INDICATIONS : Evaluate after respiratory failure. MEDICAL HISTORY : Hypertension. SURGICAL HISTORY : ENCOUNTER: Subsequent ACUITY: 1 week PAIN SCORE: Non-responsive. LOCATION: Bilateral chest FINDINGS: The cardiac silhouette is enlarged in transverse diameter. There are findings of congestive heart camila [place] with interstitial and alveolar opacity bilaterally. There has been no significant change when co mpared to the prior exam. A moderate size right sided effusion is present. CONCLUSION: 1. Cardiomegaly and findings of congestive heart failure. There has been no significant change when c ompared to the prior exam. Emre Daniel MD on July 29, 2016 at 7:01 Board Certified Radiologist. This report was verified electronically.
[2016-07-29 07:56] LABS: HEMATOCRIT 28.5 % (35.0-46.0); MEAN CELL VOLUME 70.2 FL (80.0-100.0); MEAN CORPUSCULAR HEMOGLOBIN 22.4 PG (27.0-34.0); MEAN CORPUSCULAR HGB CONC 31.9 % (32.0-36.0); PLATELET COUNT 184 TH/MM3 (150-450); RED BLOOD COUNT 4.06 MIL/MM3 (4.00-5.30); RED CELL DISTRIBUTION WIDTH 18.7 % (11.6-17.2); WHITE BLOOD COUNT 5.1 TH/MM3 (4.0-11.0)
[2016-07-29 07:59] LABS: REVIEW FLAG FINAL
[2016-07-29] MEDS: LINEZOLID 600 MG PREMIX 300 ML IV SCH ×2 (08:00→21:05)
[2016-07-29] MEDS: CHLORHEXIDINE 0.12% (ORAL KIT) 15 ML CUP MT SCH ×4 (08:00→20:00)
[2016-07-29] MEDS: ALBUMIN HUMAN 25% 25 GM/100 ML BAGP IV SCH ×2 (08:00→16:48)
[2016-07-29] MEDS: MUPIROCIN 2% OINT 1 APPLIC/GM SYR EACH NARE SCH ×2 (08:01→20:43)
[2016-07-29] MEDS: hydrALAZINE HCL 50 MG TAB PO SCH ×3 (08:01→21:06)
[2016-07-29] MEDS: GABAPENTIN 300 MG CAP PO SCH (08:02)
[2016-07-29] MEDS: HEPARIN SODIUM - SQ 10,000 UNITS/ML VIAL SQ SCH ×2 (08:02→21:06)
[2016-07-29] MEDS: CARVEDILOL 12.5 MG TAB PO SCH ×2 (08:02→21:05)
[2016-07-29] MEDS: LISINOPRIL 20 MG TAB PO SCH (08:02)
[2016-07-29] MEDS: SENNOSIDES 8.6 MG TAB PO SCH ×2 (08:02→21:06)
[2016-07-29] MEDS: DOCUSATE SODIUM 100 MG CAP PO SCH ×2 (08:02→21:05)
[2016-07-29] MEDS: SODIUM CHLORIDE 0.9% FLUSH 5 ML FLUSH IVF SCH ×3 (08:03→21:00)
[2016-07-29] MEDS: PANTOPRAZOLE SODIUM 40 MG VIAL IV SCH (08:03)
[2016-07-29] MEDS: BUMETANIDE INJ 1 MG/4 ML VIAL IV PUSH SCH ×2 (08:03→16:49)
[2016-07-29 08:30] LABS: MAGNESIUM 1.9 MG/DL (1.5-2.5)
[2016-07-29] MEDS: FERROUS SULFATE 325 MG (65 MG ELEMENTAL IRON) TAB PO SCH ×2 (09:00→20:43)
--- NOTE | 2016-07-29 10:32 | HHI.IDPN ---
Subjective Subjective Remarks Notes reviewed Temps ok Tolerating CPAP trials BP ok Problem with high BP, on IV Cleviprex C/S reviewed BC negative UC negative WBC normal Good UO CXR improving infiltrates Antibiotics Zyvox Lines LIJ TLC Past Medical History CHF last echo 08/01/15 EF 50% Depression HTN DM Neuropathy Anemia CKD Past Surgical History Cardiac Cath 2015 Allergies: Coded Allergies: Lyrica (Verified Allergy, Severe, Anaphylaxis, 07/15/16) *MDRO Multi-Drug Resistant Organism (Verified Adverse Reaction, Unknown, ) MRSA (sputum)-07/20/16 MRSA PCR Screen POSITIVE - 07/18/2016 Objective . Vital Signs Date Time Temp Pulse Resp B/P Pulse Ox O2 Delivery O2 Flow Rate FiO2 07/29/16 08:32 93 40 07/29/16 04:00 99.3 60 18 148/77 94 07/29/16 04:00 40 07/29/16 03:39 96 40 07/29/16 00:00 99.2 60 19 133/64 95 07/29/16 00:00 40 07/28/16 23:22 95 40 07/28/16 20:05 95 40 07/28/16 20:00 71 07/28/16 20:00 99.1 70 18 162/83 95 07/28/16 20:00 40 07/28/16 19:00 93 Mechanical Ventilator 07/28/16 16:00 40 07/28/16 16:00 98.3 75 14 160/88 97 07/28/16 15:25 40 07/28/16 15:18 94 40 07/28/16 15:00 94 40 07/28/16 12:36 98 40 07/28/16 12:00 40 07/28/16 12:00 98.3 72 29 156/84 94 07/28/16 07/28/16 07/29/16 15:00 23:00 07:00 Intake Total 945 ml 918 ml 680 ml Output Total 300 ml 450 ml 350 ml Balance 645 ml 468 ml 330 ml IV Total 530 ml 596 ml 384 ml Tube Feeding 355 ml 322 ml 296 ml Tube Irrigant 60 ml Output Urine Total 300 ml 450 ml 350 ml Tube Feeding Residual Discard 0 ml 0 ml # Bowel Movements 1 . Laboratory Tests Test 07/28/16 07/29/16 11:22 07:45 White Blood Count 5.6 TH/MM3 5.1 TH/MM3 Red Blood Count 3.98 MIL/MM3 4.06 MIL/MM3 Hemoglobin 8.9 GM/DL 9.1 GM/DL Hematocrit 27.9 % 28.5 % Mean Corpuscular Volume 70.0 FL 70.2 FL Mean Corpuscular Hemoglobin 22.5 PG 22.4 PG Mean Corpuscular Hemoglobin 32.1 % 31.9 % Concent Red Cell Distribution Width 18.5 % 18.7 % Platelet Count 182 TH/MM3 184 TH/MM3 Mean Platelet Volume 9.6 FL 10.0 FL Neutrophils (%) (Auto) 70.1 % Lymphocytes (%) (Auto) 12.1 % Monocytes (%) (Auto) 11.0 % Eosinophils (%) (Auto) 5.8 % Basophils (%) (Auto) 1.0 % Neutrophils # (Auto) 3.9 TH/MM3 Lymphocytes # (Auto) 0.7 TH/MM3 Monocytes # (Auto) 0.6 TH/MM3 Eosinophils # (Auto) 0.3 TH/MM3 Basophils # (Auto) 0.1 TH/MM3 CBC Comment AUTO DIFF Differential Comment AUTO DIFF CONFIRMED Laboratory Tests Test 07/27/16 07/28/16 07/29/16 18:20 04:57 07:45 Potassium Level 3.5 MEQ/L 3.9 MEQ/L 3.0 MEQ/L Sodium Level 140 MEQ/L 142 MEQ/L Chloride Level 107 MEQ/L 107 MEQ/L Carbon Dioxide Level 23.4 MEQ/L 24.0 MEQ/L Anion Gap 10 MEQ/L 11 MEQ/L Blood Urea Nitrogen 37 MG/DL 39 MG/DL Creatinine 2.78 MG/DL 2.85 MG/DL Estimat Glomerular Filtration 18 ML/MIN 18 ML/MIN Rate Random Glucose 175 MG/DL 182 MG/DL Calcium Level 8.4 MG/DL 8.4 MG/DL Phosphorus Level 3.5 MG/DL 3.5 MG/DL Magnesium Level 2.0 MG/DL 1.9 MG/DL Total Bilirubin 0.4 MG/DL Aspartate Amino Transf 37 U/L (AST/SGOT) Alanine Aminotransferase 19 U/L (ALT/SGPT) Alkaline Phosphatase 96 U/L Total Creatine Kinase 363 U/L Creatine Kinase MB 2.5 NG/ML Creatine Kinase MB % 0.7 % Total Protein 6.4 GM/DL Albumin 3.2 GM/DL Imaging Chest X-Ray 07/29/16 Signed Impressions: Service Date/Time: Friday, July 29, 2016 06:31 - CONCLUSION: 1. Cardiomegaly and findings of congestive heart failure. There has been no significant change when compared to the prior exam. Emre Daniel MD Chest X-Ray 07/28/16599 Signed Impressions: Service Date/Time: Thursday, July 28, 2016 04:44 - CONCLUSION: No significant change. Adolfo Roman MD Chest X-Ray 07/27/16 Signed Impressions: Service Date/Time: Wednesday, July 27, 2016 04:08 - CONCLUSION: Worsening bibasilar consolidation and effusions. Adolfo Roman MD Chest X-Ray 07/26/16599 Signed Impressions: Service Date/Time: Tuesday, July 26, 2016 04:54 - CONCLUSION: Slightly improved bibasilar consolidation and small effusions. Adolfo Roman MD Brain MRI 07/25/16 Signed Impressions: Service Date/Time: July 17:05 - CONCLUSION: 1. No acute hemorrhage, mass or infarction. 2. Scattered foci of increased signal noted most consistent with chronic small vessel ischemic change. This is not significantly changed. 3. Fluid and high signal is now noted in the mastoid air cells bilaterally consistent with mastoiditis. Grady Hale MD Chest X-Ray 07/23/161999 Signed Impressions: Service Date/Time: Saturday, July 23, 2016 20:11 - CONCLUSION: 1. Left IJ line tip in superior vena cava without pneumothorax. George Choi MD Head CT 07/23/16 Signed Impressions: Service Date/Time: Saturday, July 23, 2016 20:54 - CONCLUSION: Normal examination for a patient of this age. No significant change has occurred. George Choi MD Consultation 07/19/16 Signed Impressions: Service Date/Time: Tuesday, July 19, 2016 00:00 - CONCLUSION: Procedure not performed secondary to cardiopulmonary arrest. Emre Daniel MD Brain MRI 07/18/16 Signed Impressions: Service Date/Time: July 17:15 - CONCLUSION: White matter hyperintensities prominent for age indicating possible demyelinating disorder. No evidence of acute infarct. Eleizer Shay MD Abdomen X-Ray 07/18/16 0000 Signed Impressions: Service Date/Time: July 15:39 - CONCLUSION: No evidence of obstruction. No MRI incompatible foreign body is identified. Eliezer Shay MD Physical Exam GENERAL: On the vent, NAD SKIN: Cool skin, dry, no generalized rash. HEENT: [place] conjunctivae. No scleral icterus. NG tube in place. Endotracheal tube is in the mouth. Has moist oral mucosa. NECK: Supple, no nuchal rigidity. Left IJ central line in place with no evidence of infection. CARDIOVASCULAR: Regular rate and rhythm without murmurs, gallops, or rubs. RESPIRATORY: Coarse breath sounds bilaterally, and equal. Decreased breath sounds at the bases. GASTROINTESTINAL: Abdomen soft, obese, nondistended, not tender. Bowel sounds are present and normoactive. No guarding. MUSCULOSKELETAL: Extremities without clubbing, cyanosis. Has edema both hands. NEUROLOGICAL: Sedated. No Babinski or ankle clonus : Calderon catheter in place, looks clear LINE: Left IJ central line with no evidence of infection. PIV with no evidence of infection Assessment & Plan Remarks IMPRESSION Bilateral infiltrates, due to pulmonary edema, now with HCAP - C/S with MRSA Recurrent arrest felt to be due to primary respiratory event Respiratory failure , recurrent post arrest Possibly has PALMER CHF Obesity CKD (+) UA RECOMMENDATION Continue Zyvox - follow CBC - at least 7 days Abx if stable Weaning per CCM Monitor progress Polina Flores MD Jul 29, 2016 10:32
--- NOTE | 2016-07-29 10:52 | HHI.CCPN ---
Subjective Remarks/Hospital Course 07/18: 50 y/o female with a history of chf, depression, htn, dm, and ckd presented to the ED on 07/15 with complaints of dyspnea, swelling in her lower extremities and a 50lb weight gain since last admission 06/03/16. Patient had gained 50 lbs in fluid from last admission. She presented with increased shortness of breath with intermittent chest pressure with no radiation or associated symptoms. She was admitted on 05/31/16 and diagnosed with CHF, discharged home on on Bumex. Patient states she recently ran out of meds and has not followed up with a doctor due to transportation issues. She is not from here and her pcp is 2 hours away and she does not want her kids to take off work to take her to appointments. She is hoping to move back in 2 weeks or so. She states she tried to call a records and information manager to follow up but they required her records and she did not get them. Despite taking Bumex she states she has not had an increase in urination. Last admission 2d echo showed systolic dysfunction with EF 50%, she was seen by DR. Choudhury, and DR. Medley. Patient was admitted by hospitalist service. She was evaluated by Dr. Choudhury from cardiology who offered cardiac catheterization as patient did have an elevated troponin and previous abnormal stress test however she was concerned regarding ending up on hemodialysis so she refused. Patient was reportedly on nasal cannula earlier today however around 1:30 PM was noted to be lethargic and minimally responsive. Stroke alert was called. Head CT was negative for bleed. Recent had an ABG done which revealed pH of 7.0/PCO2 87/PO2 49. Critical care service was contacted by Dr. Mckeon. Both myself and Dr. Ott arrived at bedside. Patient was encephalopathic though arousable with painful stimuli occasional morning however not following commands. Her fingerstick glucose was in the 140s earlier. Decision was made to proceed with endotracheal intubation which was performed by Dr. Goff. A stat MRI brain was ordered to evaluate for CVA after discussion with Dr. Estes. 07/19: Awakens easily off sedation following commands this morning. On mechanical ventilation. MRI brain done yesterday did not show any acute event. 07/20 Patient was extubated yesterday went to IR for vascath placement and had resp arrest she was subsequently reintubated. Now sedated with Diprivan. Afebrile. MRI brain showed no evidence of acute infract. 07/21 Patient s/p extubation yesterday was given racemic Decadron 4mg IV x1 and racemic epi for ? stridor overnight placed on BIPAP 03/20 with 40% FIO2. ABG on BIPAP shows improvements in her resp acidosis with PH 7.30 and CO2: 48 from 57. Now of BIPAP and is on 6L oxygen. 07/22 No acute events overnight. Patient is on 4L oxygen with good sats. Afebrile. renal function improving with Cr: 3.22 and UO: 2850ml in 24 hrs 07/23 - CODE BLUE call today secondary to unresponsiveness. According to RN, patient received [place] at 5 PM. Not seen. Upon evaluation by RN patient was not breathing on nasal cannula. Received 1 mg of epinephrine and one ampule sodium bicarbonate. Intubated with 8.0 ET tube. ROSC after around 10 minutes. Transferred ISC. Occasionally taking large breaths otherwise unresponsive on the ventilator 07/24: Remains orally intubated on mechanical ventilation. Has not required any sedation since arrival to the ICU, remains encephalopathic/comatose. 07/25: Remains orally intubated on mechanical ventilation. Remains encephalopathic. Started on propofol for vent synchrony last night. Neurology following 07/26 Patient remains intubated, off Diprivan this morning placed on CPAP with PS 10, PEEP:5 and FIO2 40%. Afebrile. Subjective 07/27: Afebrile. Following commands with upper extremity according to overnight RN. Currently opens eyes and withdrawals to pain in bilateral upper extremities. Upper toes bilateral lower extremities. No bowel movement 24 hours. Tolerating tube feeds with Nepro at 40 cc an hour. Attempted to self extubated yesterday. 07/28: The patient is responsive and following commands, tolerated CPAP trials for 16 hours yesterday. Increasing amounts of antihypertensive medication the patient continues on Cleviprex 6 mg/hour, Clonidine dosage increased 0.2 q 8hr. will continue on CPAP trials today. 07/29: Tmax 99.3. The patient tolerated CPAP trials for approximately 8 hours yesterday. Less dosage of PRN antihypertensive medications noted will begin to wean Cleviprex. Objective Vital Signs Date Time Temp Pulse Resp B/P Pulse Ox O2 Delivery O2 Flow Rate FiO2 07/29/16 08:32 93 40 07/29/16 04:00 99.3 60 18 148/77 07/28/16 19:00 Mechanical Ventilator Intake and Output 07/28/16 07/28/16 07/29/16 08:00 16:00 00:00 Intake Total 654 ml 945 ml 918 ml Output Total 230.0 ml 300 ml 450 ml Balance 424.0 ml 645 ml 468 ml Result Diagram: 07/29/16 0745 07/29/16 0745 Other Results Laboratory Tests Test 07/29/16 06:22 Blood Gas Puncture Site RT RADIAL Blood Gas Patient Temperature 98.6 Blood Gas HCO3 23 mmol/L (22-26) Blood Gas Base Excess -0.6 mmol/L (-2-2) Blood Gas Oxygen Saturation 90 % (90-100) Arterial Blood pH 7.41 (7.380-7.420) Arterial Blood Partial 38 mmHg (38-42) Pressure CO2 Arterial Blood Partial 67 mmHg Pressure O2 (61-120) Arterial Blood Oxygen Content 11.5 Vol % (12.0-20.0) Arterial Blood 1.4 % (0-4) Carboxyhemoglobin Arterial Blood Methemoglobin 1.0 % (0-2) Blood Gas Hemoglobin 9.0 G/DL (12.0-16.0) Oxygen Delivery Device VENTILATOR Blood Gas Ventilator Setting AC/18/550/+5 Blood Gas Inspired Oxygen 40 % Imaging Last Impressions Chest X-Ray 07/27/16 0000 Signed Impressions: Service Date/Time: Wednesday, July 27, 2016 04:08 - CONCLUSION: Worsening bibasilar consolidation and effusions. Adolfo Roman MD Brain MRI 07/25/16 0000 Signed Impressions: Service Date/Time: July 17:05 - CONCLUSION: 1. No acute hemorrhage, mass or infarction. 2. Scattered foci of increased signal noted most consistent with chronic small vessel ischemic change. This is not significantly changed. 3. Fluid and high signal is now noted in the mastoid air cells bilaterally consistent with mastoiditis. Grady Hale MD Head CT 07/23/16 0000 Signed Impressions: Service Date/Time: Saturday, July 23, 2016 20:54 - CONCLUSION: Normal examination for a patient of this age. No significant change has occurred. George Choi MD Consultation 07/19/16 0000 Signed Impressions: Service Date/Time: Tuesday, July 19, 2016 00:00 - CONCLUSION: Procedure not performed secondary to cardiopulmonary arrest. Emre Daniel MD Abdomen X-Ray 07/18/16 0000 Signed Impressions: Service Date/Time: July 15:39 - CONCLUSION: No evidence of obstruction. No MRI incompatible foreign body is identified. Eliezer Shay MD Objective Remarks GENERAL: 50-year-old female, critically ill currently orotracheally intubated SKIN: Warm and dry. Right thigh with open vesicle lesion draining/covered with Mepilex HEAD: Normocephalic. EYES: PERRL 4 mm bilaterally and reactive NECK: Supple, trachea midline. Unable to assess JVD . Left IJ clean dry and intact with chlorhexidine covering CARDIOVASCULAR: RRR. S1, S2. No S4. Without murmur RESPIRATORY: On mechanical ventilation, Diminished due to body habitus. Breath sounds equal bilaterally. GASTROINTESTINAL: Abdomen soft, obese. Hypoactive bowel sounds MUSCULOSKELETAL: B/L edema, upper and lower extremities. Neuro: RASS -2, on propofol at 15mcgs/kg/min, orally intubated on mechanical ventilation. Following commands. Date of Insertion: Jul 23, 2016 Line: Central Venous Catheter Side: Left Location: Internal, Jugular A/P Assessment and Plan Neuro/Psych: Toxic metabolic encephalopathy/history CO2 retention History of depression Peripheral neuropathy Propofol for vent synchrony as needed. Daily sedation vacation. Neuro is following peripherally- Dr. Estes Acetaminophen for temp >101.0 Baby aspirin 81 mg for now will be continued Holding Elavil 50 mill grams by mouth daily at bedtime in light of altered mental status. Continue gabapentin 300 mg daily for neuropathy (home med). Holding Xanax 0.25 mill grams by mouth twice a day for anxiety. 07/25 MRI brain: No acute hemorrhage, mass or infarction. Scattered foci of increased signal noted most consistent with chronic small vessel ischemic change. Mastoiditis. 07/18 MRI brain: White matter hyperintensities prominent for age indicating possible demyelinating disorder. No evidence of acute infarct. 07/18 CT brain: No acute infarct 07/19 EEG: Mild- mod encephalopathy CV: Hypertension CHF - diastolic Non-STEMI Echocardiogram 05/21 revealed EF 50%. Mildly dilated ventricle. Diffuse hypokinesis. Echocardiogram 07/23 reveals EF 45-50%. No regional motion abnormality. POOL 59 mmHg. Mild TR. On Coreg 25mg BID, hydralazine 50mg TID, lisinopril 20 daily, nifedipine 20 mg Q8 Increase hydralazine to 100 mg 3 times a day(07/27). Received when necessary overnight including IV hydralazine and clonidine Home medications Norvasc 10 mg daily, hydralazine 50 3 times a day, Coreg 25 twice a day Continue atorvastatin 80 mg daily's for dyslipidemia. Continued Bumex increased to 2 mg IV twice a day for diuresis , only 500 cc UOP over the last 12 hours Followed by cardiology. They believe troponin likely due to fluid overloaded state, HTN episode, CKD... previous stress test showing mild small lateral wall defect, offered diagnostic cath with a plan for staged intervention if needed Resp: Acute hypoxemic respiratory failure ACV 18/550/5/40 Continue with vent support keep sat >92% Ventilator bundle Bronchodilator therapy every 4 hours and as needed CPAP trials today Chest x-ray 07/27 revealed increasing bilateral lower lobe pulmonary edema/ effusion. Follow-up chest x-ray . GI: Continue tube feeds- On Nepro@40ml/hr advance to goal rate Protonix for GI prophylaxis. Pepcid 40 mg daily at home Colace/ Senokot twice daily for bowel regimen 1 dose of MiraLAX and mineral oil, still no BM will add PRN suppository, and continue Miralax Endo: Diabetes mellitus Sliding-scale insulin with Accu checks every 6 hours to maintain euglycemia.. 0 units sliding-scale insulin past 24 hours On Lantus 40 units at night at home. Along with lispro 12 units twice a day and glipizide 2.5 mg daily. Renal: Acute on chronic kidney injury Nephrotic syndrome Followed by nephrology. No indication for current hemodialysis On Bumex to 1 mg IV BID -> increased to 2 mg twice a day Monitor renal function, I/O's, avoid nephrotoxins. Creatinine 2.7 Heme: Anemia/microcytic Currently on iron sulfate 325mg PO twice a day/home medication. Monitor CBC. No indication for transfusion of blood proximal at this time ID: MRSA pneumonia Pertinent cultures 07/20 - sputum - MRSA Blood culture 07/24 and 07/25 no growth Continue abx per ID (zyvox)monitor for sigsn of infections ( Fever, WBC) Cefepime discontinued yesterday FEN: Hypokalemia-resolved Electrolyte replacement per ICU protocol MSK: Morbid obesity Osteoporosis Holding Drisdol 50,000 units every Friday. Weight loss encouraged Access - Left IJ CVL day 5 Prophylaxis - GI - Protonix - DVT - SCD/heparin Critical Care: The total critical care time was 31 minutes. Time to perform other separately billable procedures was not included in the critical care time. Susan Mckeon MD Jul 29, 2016 10:52
--- NOTE | 2016-07-29 11:31 | HHI.PR ---
Review/Management Daily Summary doing better, intubated diprivan held this am and pt started following commands, moves all 4 limbs very mildly on request she gazes to right and left I don't think she had a neurologic event, will fiollow with an EEG as well otherwise prn neuro 07/24 10 minute code last evening after norco remains poorly responsive, some gaze preference to right ??right hemiparesis, ct negative eeg looks metabolic diffuse per dr Vazquez will monitor and plan on doing mri barin in am 07/25 seen shortly after mri brain which is negative for acute dx agitated when sedation held pupils equals and reactive eeg encephalopatic yesterday, tracing seen continue supportive medical care 07/29 when off sedation she follows commands per rn she withdrew to somatosensory stim now but sedated will monitor neuro Subjective Subjective Comments no seizure following commands per rn Active Medications Current Medications Medications (Trade) Dose Ordered Sig/Christa Route Start Time Stop Time Status Last Admin (Narcan Inj) 0.4 mg UNSCH PRN IV 07/15/16 20:45 (Elavil) 50 mg HS PO 07/16/16 21:00 Hold 07/21/16 19:33 (Lipitor) 80 mg HS PO 07/16/16 21:00 07/28/16 20:00 (Coreg) 25 mg BID PO 07/16/16 09:00 07/29/16 08:02 (Ferrous Sulfate) 325 mg BID PO 07/16/16 09:00 07/28/16 20:00 (Albumin 25% Inj) 25 gm BID@08,17 IV 07/16/16 17:00 07/29/16 08:00 (Prinivil) 20 mg DAILY PO 07/17/16 09:00 07/29/16 08:02 (Verdi 5-325 Mg) 1 tab Q6H PRN PO 07/16/16 23:30 07/23/16 16:58 (Zofran Inj) 4 mg Q6HR PRN IV PUSH 07/18/16 06:00 07/18/16 05:57 (NS Flush) 2 ml UNSCH PRN IVF 07/18/16 13:45 (NS Flush) 2 ml BID IVF 07/18/16 21:00 07/28/16 19:57 (Peridex 0.12% Liq) 15 ml BID@08,20 MT 07/18/16 20:00 07/29/16 08:00 (Protonix Inj) 40 mg DAILY IV 07/19/16 09:00 07/29/16 08:03 Miscellaneous Information 1 Q361D XX 07/18/16 13:45 07/18/16 13:45 (Chlorhexidine 2% Cloth) Taper DAILY@04 TOP 07/19/16 04:00 07/15/17 03:59 07/25/16 03:11 Chlorhexidine Gluconate 3 pack 3 pack UNSCH PRN TOP 07/18/16 13:45 (NS 1000 ml Inj) 1,000 ml @ 0 mls/hr Q0M PRN IV 07/19/16 12:15 Heparin Sodium (Porcine) 8000 units 8,000 units UNSCH PRN IVF 07/19/16 12:15 (NS 1000 ml Inj) 1,000 ml @ 0 mls/hr Q0M PRN IV 07/19/16 12:15 (Mannitol Inj) 12.5 gm UNSCH PRN IV 07/19/16 12:15 (Albumin 25% Inj) 25 gm UNSCH PRN IV 07/19/16 12:15 (NS Flush) 5 ml UNSCH PRN IVF 07/19/16 12:15 (Heparin Inj) UNSCH PRN .XX 07/19/16 12:15 (Gentamicin (Dialysis) Inj) 20 mg UNSCH PRN IV 07/19/16 12:15 (Zofran Inj) 4 mg UNSCH PRN IV 07/19/16 12:15 (Tylenol) 650 mg UNSCH PRN PO 07/19/16 12:15 07/20/16 20:41 (Benadryl) 25 mg UNSCH PRN PO 07/19/16 12:15 (Nitrostat Sl) 0.4 mg UNSCH PRN SL 07/19/16 12:15 (Catapres) 0.1 mg UNSCH PRN PO 07/19/16 12:15 07/27/16 09:05 (Epogen Inj) 4,000 units UNSCH PRN IV 07/19/16 12:15 (Gelfoam 12 Mm/7 Mm Top) 1 foam UNSCH PRN TOP 07/19/16 12:15 (Heparin Inj) 5,000 units Q12HR SQ 07/20/16 21:00 07/29/16 08:02 (D50w (Vial) Inj) 25 ml UNSCH PRN IV PUSH 07/20/16 09:45 (Glucagon Inj) 1 mg UNSCH PRN OTHER 07/20/16 09:45 (NovoLIN R SUPPLEMENTAL SCALE) 1 Q6H SQ 07/20/16 11:00 07/29/16 05:06 (Neurontin) 300 mg DAILY PO 07/22/16 09:00 07/29/16 08:02 (Trandate Inj) 10 mg Q4H PRN IV PUSH 07/22/16 04:45 07/26/16 14:03 (Apresoline Inj) 10 mg Q4H PRN IV PUSH 07/22/16 05:30 07/27/16 09:39 (Mycostatin Powder) 1 applic Q12HR PRN TOPICAL 07/22/16 16:00 (Procardia) 20 mg Q8HR PO 07/23/16 14:00 07/29/16 05:06 Chlorhexidine Gluconate 15 ml 15 ml BID@08,20 MT 07/23/16 20:00 07/27/16 20:20 Propofol 100 ml @ 0 mls/hr TITRATE IV 07/23/16 19:30 07/29/16 08:03 (fentaNYL DRIP) 250 ml @ 0 mls/hr TITRATE IV 07/23/16 19:30 07/24/16 00:59 (Bactroban Nasal 2% Oint) Taper BID EACH NARE 07/23/16 21:00 07/19/17 20:59 07/29/16 08:01 (NS Flush) DAILY IVF 07/23/16 20:00 07/28/16 07:21 IV Flush UNSCH PRN IVF 07/23/16 20:00 (Zyvox 600 Mg Premix) 300 ml @ 300 mls/hr Q12HR IV 07/24/16 11:00 07/29/16 08:00 (Nitroglycerin 2% Oint) 2 inch Q6H PRN TOPICAL 07/25/16 04:15 07/27/16 09:05 (Bumex Inj) 2 mg BID@09,18 IV PUSH 07/27/16 09:00 07/29/16 08:03 (Colace) 100 mg BID PO 07/27/16 09:00 07/29/16 08:02 Sennosides 8.6 mg 8.6 mg Q12HR PO 07/27/16 09:00 07/29/16 08:02 (Cleviprex Inj) 50 ml @ 0 mls/hr TITRATE IV 07/27/16 11:00 07/29/16 07:53 (Catapres) 0.2 mg Q8HR PO 07/27/16 22:00 07/29/16 05:07 (Apresoline) 100 mg Q8HR PO 07/29/16 14:00 (Ferrous Sulfate Liq) 300 mg BID PO 07/29/16 12:00 (Aspirin Chew) 81 mg DAILY PO 07/29/16 12:00 Allergies Allergies Coded Allergies Lyrica (Verified Allergy, Severe, Anaphylaxis, 07/15/16) *MDRO Multi-Drug Resistant Organism (Verified Adverse Reaction, Unknown, ) Exam I&O / VS 07/28/16 07/28/16 07/29/16 15:00 23:00 07:00 Intake Total 945 ml 918 ml 680 ml Output Total 300 ml 450 ml 350 ml Balance 645 ml 468 ml 330 ml IV Total 530 ml 596 ml 384 ml Tube Feeding 355 ml 322 ml 296 ml Tube Irrigant 60 ml Output Urine Total 300 ml 450 ml 350 ml Tube Feeding Residual Discard 0 ml 0 ml # Bowel Movements 1 Vital Signs Date Time Temp Pulse Resp B/P Pulse Ox O2 Delivery O2 Flow Rate FiO2 07/29/16 08:32 93 40 07/29/16 08:00 98.7 58 18 135/72 94 07/29/16 08:00 40 07/29/16 08:00 58 07/29/16 07:00 94 Mechanical Ventilator 07/29/16 04:00 99.3 60 18 148/77 94 07/29/16 04:00 40 07/29/16 03:39 96 40 07/29/16 00:00 99.2 60 19 133/64 95 07/29/16 00:00 40 07/28/16 23:22 95 40 07/28/16 20:05 95 40 07/28/16 20:00 71 07/28/16 20:00 99.1 70 18 162/83 95 07/28/16 20:00 40 07/28/16 19:00 93 Mechanical Ventilator 07/28/16 16:00 40 07/28/16 16:00 98.3 75 14 160/88 97 07/28/16 15:25 40 07/28/16 15:18 94 40 07/28/16 15:00 94 40 07/28/16 12:36 98 40 07/28/16 12:00 40 07/28/16 12:00 98.3 72 29 156/84 94 Objective Micro and Labs Laboratory Tests Test 07/29/16 07/29/16 06:22 07:45 Blood Gas Puncture Site RT RADIAL Blood Gas Patient Temperature 98.6 Blood Gas HCO3 23 Blood Gas Base Excess -0.6 Blood Gas Oxygen Saturation 90 Arterial Blood pH 7.41 Arterial Blood Partial 38 Pressure CO2 Arterial Blood Partial 67 Pressure O2 Arterial Blood Oxygen Content 11.5 Arterial Blood 1.4 Carboxyhemoglobin Arterial Blood Methemoglobin 1.0 Blood Gas Hemoglobin 9.0 Oxygen Delivery Device VENTILATOR Blood Gas Ventilator Setting AC/18/550/+5 Blood Gas Inspired Oxygen 40 White Blood Count 5.1 Red Blood Count 4.06 Hemoglobin 9.1 Hematocrit 28.5 Mean Corpuscular Volume 70.2 Mean Corpuscular Hemoglobin 22.4 Mean Corpuscular Hemoglobin 31.9 Concent Red Cell Distribution Width 18.7 Platelet Count 184 Mean Platelet Volume 10.0 Sodium Level 142 Potassium Level 3.0 Chloride Level 107 Carbon Dioxide Level 24.0 Anion Gap 11 Blood Urea Nitrogen 39 Creatinine 2.85 Estimat Glomerular Filtration 18 Rate Random Glucose 182 Calcium Level 8.4 Phosphorus Level 3.5 Magnesium Level 1.9 Date/Time Procedure Status Source Growth 07/25/16 04:05 Aerobic Blood Culture - Preliminary Resulted Blood Peripheral NO GROWTH IN 4 DAYS 07/25/16 04:05 Anaerobic Blood Culture - Preliminary Resulted Blood Peripheral NO GROWTH IN 4 DAYS Chip Estes MD Jul 29, 2016 11:31
[2016-07-29] MEDS: ASPIRIN 81 MG CHEW TAB PO SCH (12:22)
[2016-07-29] MEDS: NITROGLYCERIN 2% OINT 1 GM PACKET TOPICAL PRN (12:23)
[2016-07-29] MEDS: FERROUS SULFATE 300 MG /5ML UDC PO SCH ×2 (12:23→21:04)
[2016-07-29 15:56] LABS: BICARBONATE 24.8 MEQ/L (21.0-32.0); POTASSIUM 3.1 MEQ/L (3.5-5.1)
--- NOTE | 2016-07-29 18:59 | HHI.NPPN ---
Subjective History of Present Illness 50 year old with CKD 4/5 Diabetes Nephrotic range proteinuria Additional Remarks Patient remain intubated , more alert, following verbal commands. Review of Systems General Constitutional: Fatigue Cardiovascular Cardiac: Edema Objective Data Data 07/28/16 07/29/16 19:00 07:00 Intake Total 945 ml 1598 ml Output Total 300 ml 800 ml Balance 645 ml 798 ml IV Total 530 ml 980 ml Tube Feeding 355 ml 618 ml Tube Irrigant 60 ml Output Urine Total 300 ml 800 ml Tube Feeding Residual Discard 0 ml 0 ml # Bowel Movements 1 Vital Signs Date Time Temp Pulse Resp B/P Pulse Ox O2 Delivery O2 Flow Rate FiO2 07/29/16 16:00 40 07/29/16 16:00 98.2 62 18 148/73 96 07/29/16 15:04 96 50 07/29/16 12:00 97.9 62 19 159/79 96 07/29/16 12:00 40 07/29/16 11:29 96 50 07/29/16 08:32 93 40 07/29/16 08:00 98.7 58 18 135/72 94 07/29/16 08:00 40 07/29/16 08:00 58 07/29/16 07:00 94 Mechanical Ventilator 07/29/16 04:00 99.3 60 18 148/77 94 07/29/16 04:00 40 07/29/16 03:39 96 40 07/29/16 00:00 99.2 60 19 133/64 95 07/29/16 00:00 40 07/28/16 23:22 95 40 07/28/16 20:05 95 40 07/28/16 20:00 71 07/28/16 20:00 99.1 70 18 162/83 95 07/28/16 20:00 40 07/28/16 19:00 93 Mechanical Ventilator -: 07/29/16 0745 07/29/16 1512 Physical Exam General Appearance: Obese Throat Throat Exam: Oral Mucosa [place] & Moist Neck Neck Exam: Neck Supple Pulmonary Resp Exam: Crackles, Rhonchi, Decreased Bases, Diminished Breath Sounds Cardiology CV Exam: Regular, Normal Sinus Rhythm Gastrointestinal/Abdomen GI Exam: Soft, Non-Tender, Distended Extremeties Extremities Exam: Pitting Edema, Dependent Edema Neurologic Neuro Exam: Sedated Assessment/Plan Problem List: (1) Stage 4 chronic kidney disease Plan: Patient with advanced kidney disease and had the workup in May. including MATEUS/SPEP Neg Nephrotic proteinuria 10 grams. Urine out put increased, Most likely has advance Diabetic Nephropathy. Urine out put is good, on Bumex. she has UOP and dialysis plans were dc as GFR 18 continue with Bumex for now may need Trach (2) Nephrotic syndrome Plan: Protein to creatinine ratio above 10 10.52 (3) Acute exacerbation of CHF (congestive heart failure) Plan: This is likely due to chronic kidney disease and diastolic dysfunction (4) Diabetes Plan: Advance manifestations diabetic nephropathy, retinopathy and neuropathy (5) HTN (hypertension) Plan: Continue to monitor (6) Respiratory failure Plan Continue antibiotics. Problem Qualifiers (1) Acute exacerbation of CHF (congestive heart failure): Qualified Code: I50.9 - Acute on chronic congestive heart failure, unspecified congestive heart failure type (2) Diabetes: (3) HTN (hypertension): Qualified Code: I10 - Essential hypertension (4) Respiratory failure: Qualified Code: J96.01 - Acute respiratory failure with hypoxia Ebony Garcia MD Jul 29, 2016 18:59
--- NOTE | 2016-07-29 19:05 | HHI.NPPN ---
Subjective History of Present Illness 50 year old with CKD 4/5 Diabetes Nephrotic range proteinuria Additional Remarks Patient remain intubated , more alert, following verbal commands. Review of Systems General Constitutional: Fatigue Cardiovascular Cardiac: Edema Objective Data Data 07/28/16 07/29/16 19:00 07:00 Intake Total 945 ml 1598 ml Output Total 300 ml 800 ml Balance 645 ml 798 ml IV Total 530 ml 980 ml Tube Feeding 355 ml 618 ml Tube Irrigant 60 ml Output Urine Total 300 ml 800 ml Tube Feeding Residual Discard 0 ml 0 ml # Bowel Movements 1 Vital Signs Date Time Temp Pulse Resp B/P Pulse Ox O2 Delivery O2 Flow Rate FiO2 07/29/16 16:00 40 07/29/16 16:00 98.2 62 18 148/73 96 07/29/16 15:04 96 50 07/29/16 12:00 97.9 62 19 159/79 96 07/29/16 12:00 40 07/29/16 11:29 96 50 07/29/16 08:32 93 40 07/29/16 08:00 98.7 58 18 135/72 94 07/29/16 08:00 40 07/29/16 08:00 58 07/29/16 07:00 94 Mechanical Ventilator 07/29/16 04:00 99.3 60 18 148/77 94 07/29/16 04:00 40 07/29/16 03:39 96 40 07/29/16 00:00 99.2 60 19 133/64 95 07/29/16 00:00 40 07/28/16 23:22 95 40 07/28/16 20:05 95 40 07/28/16 20:00 71 07/28/16 20:00 99.1 70 18 162/83 95 07/28/16 20:00 40 -: 07/29/16 0745 07/29/16 1512 Physical Exam General Appearance: Obese Throat Throat Exam: Oral Mucosa [place] & Moist Neck Neck Exam: Neck Supple Pulmonary Resp Exam: Crackles, Rhonchi, Decreased Bases, Diminished Breath Sounds Cardiology CV Exam: Regular, Normal Sinus Rhythm Gastrointestinal/Abdomen GI Exam: Soft, Non-Tender, Distended Extremeties Extremities Exam: Pitting Edema, Dependent Edema Neurologic Neuro Exam: Sedated Assessment/Plan Problem List: (1) Stage 4 chronic kidney disease Plan: Patient with advanced kidney disease and had the workup in Dec. including MATEUS/SPEP Neg Nephrotic proteinuria 10 grams. Urine out put increased, Most likely has advance Diabetic Nephropathy. Urine out put is good, on Bumex. she has UOP and dialysis plans were dc as GFR 18 continue with Bumex for now increase to 2 mg q 6 hrs for more diuresis K low replace may need Trach (2) Nephrotic syndrome Plan: Protein to creatinine ratio above 10 10.52 (3) Acute exacerbation of CHF (congestive heart failure) Plan: This is likely due to chronic kidney disease and diastolic dysfunction (4) Diabetes Plan: Advance manifestations diabetic nephropathy, retinopathy and neuropathy (5) HTN (hypertension) Plan: Continue to monitor (6) Respiratory failure Problem Qualifiers (1) Acute exacerbation of CHF (congestive heart failure): Qualified Code: I50.9 - Acute on chronic congestive heart failure, unspecified congestive heart failure type (2) Diabetes: (3) HTN (hypertension): Qualified Code: I10 - Essential hypertension (4) Respiratory failure: Qualified Code: J96.01 - Acute respiratory failure with hypoxia Ebony Garcia MD Jul 29, 2016 19:05
[2016-07-29] MEDS ORDERED: POTASSIUM CHLOR 40 MEQ PREMIX 100 ML IV ONE (19:15)
[2016-07-29] MEDS: ATORVASTATIN 80 MG TAB PO SCH (21:00)
[2016-07-29] MEDS: POTASSIUM CHLORIDE 20 MEQ PWD PACKET TUBE SCH (22:08)
[2016-07-29] MEDS: hydrALAZINE HCL 20 MG/ML VIAL IV PUSH PRN (22:38)
[2016-07-30] VITALS (18 sets, daily range): BP systolic 142–182; BP diastolic 77–91; PULSE 50–63; RESP 16–18; TEMP 97.7–98.5; O2SAT 93–98
[2016-07-30] MEDS: BUMETANIDE INJ 1 MG/4 ML VIAL IV PUSH SCH ×5 (01:14→23:27)
[2016-07-30] MEDS: CLEVIDIPINE INJ 50 ML IV SCH (01:43)
[2016-07-30] MEDS: RESP: ALBUTEROL 2.5 MG/IPRATROPIUM 0.5 MG NEB (SCH) NEB ×6 (03:11→23:44)
[2016-07-30] MEDS: CHLORHEXIDINE GLUCONATE 2 % 1 PACK (2 CLOTHS) TOP SCH (03:58)
[2016-07-30] MEDS: NIFEdipine 20 MG CAP PO SCH ×2 (05:31→13:40)
[2016-07-30] MEDS: cloNIDine HCL 0.1 MG TAB PO SCH ×3 (05:31→21:30)
[2016-07-30] MEDS: hydrALAZINE HCL 50 MG TAB PO SCH ×3 (05:31→20:58)
--- NOTE | 2016-07-30 05:48 | RADRPT ---
EXAM DATE/TIME: 07/30/2016 04:21 [facility] COMPARISON: CHEST SINGLE AP, July 29, 2016, 6:31. INDICATIONS : Respiratory failure. MEDICAL HISTORY : Hypertension. Congestive heart failure. Renal failure, chronic. SURGICAL HISTORY : None. ENCOUNTER: Subsequent ACUITY: 2 weeks PAIN SCORE: Non-responsive. LOCATION: Bilateral chest FINDINGS: The cardiac silhouette is enlarged in transverse diameter. Support lines and tubes are in satisfactor y position. There are findings of congestive heart failure with interstitial and alveolar opacity kassidy aterally. The findings have improved when compared with the prior exam. A moderate size right sided e ffusion is present. CONCLUSION: 1. Cardiomegaly and findings of congestive heart failure. The findings are improved when compared wit h the prior exam. Emre Daniel MD on July 30, 2016 at 5:46 Board Certified Radiologist. This report was verified electronically.
[2016-07-30 06:09] LABS: HEMATOCRIT 29.3 % (35.0-46.0); MEAN CELL VOLUME 69.7 FL (80.0-100.0); MEAN CORPUSCULAR HEMOGLOBIN 22.5 PG (27.0-34.0); MEAN CORPUSCULAR HGB CONC 32.2 % (32.0-36.0); PLATELET COUNT 191 TH/MM3 (150-450); RED BLOOD COUNT 4.21 MIL/MM3 (4.00-5.30); RED CELL DISTRIBUTION WIDTH 18.6 % (11.6-17.2); WHITE BLOOD COUNT 4.9 TH/MM3 (4.0-11.0)
[2016-07-30 06:28] LABS: BICARBONATE 24.8 MEQ/L (21.0-32.0); MAGNESIUM 1.9 MG/DL (1.5-2.5); POTASSIUM 3.4 MEQ/L (3.5-5.1)
[2016-07-30 06:31] LABS: REVIEW FLAG FINAL
[2016-07-30] MEDS: INSULIN NovoLIN REGULAR SUPPLEMENTAL SCALE SQ SCH ×4 (06:46→22:58)
[2016-07-30] MEDS: PROPOFOL 1000 MG/100 ML INJ 100 ML IV SCH (06:54)
--- NOTE | 2016-07-30 07:53 | HHI.CCPN ---
Subjective Remarks/Hospital Course 07/18: 50 y/o female with a history of chf, depression, htn, dm, and ckd presented to the ED on 07/15 with complaints of dyspnea, swelling in her lower extremities and a 50lb weight gain since last admission 06/03/16. Patient had gained 50 lbs in fluid from last admission. She presented with increased shortness of breath with intermittent chest pressure with no radiation or associated symptoms. She was admitted on 05/31/16 and diagnosed with CHF, discharged home on on Bumex. Patient states she recently ran out of meds and has not followed up with a doctor due to transportation issues. She is not from here and her pcp is 2 hours away and she does not want her kids to take off work to take her to appointments. She is hoping to move back in 2 weeks or so. She states she tried to call a motorcycle builder to follow up but they required her records and she did not get them. Despite taking Bumex she states she has not had an increase in urination. Last admission 2d echo showed systolic dysfunction with EF 50%, she was seen by DR. Choudhury, and DR. Medley. Patient was admitted by hospitalist service. She was evaluated by Dr. Choudhury from cardiology who offered cardiac catheterization as patient did have an elevated troponin and previous abnormal stress test however she was concerned regarding ending up on hemodialysis so she refused. Patient was reportedly on nasal cannula earlier today however around 1:30 PM was noted to be lethargic and minimally responsive. Stroke alert was called. Head CT was negative for bleed. Recent had an ABG done which revealed pH of 7.0/PCO2 87/PO2 49. Critical care service was contacted by Dr. Mckeon. Both myself and Dr. Ott arrived at bedside. Patient was encephalopathic though arousable with painful stimuli occasional morning however not following commands. Her fingerstick glucose was in the 140s earlier. Decision was made to proceed with endotracheal intubation which was performed by Dr. Goff. A stat MRI brain was ordered to evaluate for CVA after discussion with Dr. Estes. 07/19: Awakens easily off sedation following commands this morning. On mechanical ventilation. MRI brain done yesterday did not show any acute event. 07/20 Patient was extubated yesterday went to IR for vascath placement and had resp arrest she was subsequently reintubated. Now sedated with Diprivan. Afebrile. MRI brain showed no evidence of acute infract. 07/21 Patient s/p extubation yesterday was given racemic Decadron 4mg IV x1 and racemic epi for ? stridor overnight placed on BIPAP 03/20 with 40% FIO2. ABG on BIPAP shows improvements in her resp acidosis with PH 7.30 and CO2: 48 from 57. Now of BIPAP and is on 6L oxygen. 07/22 No acute events overnight. Patient is on 4L oxygen with good sats. Afebrile. renal function improving with Cr: 3.22 and UO: 2850ml in 24 hrs 07/23 - CODE BLUE call today secondary to unresponsiveness. According to RN, patient received [place] at 5 PM. Not seen. Upon evaluation by RN patient was not breathing on nasal cannula. Received 1 mg of epinephrine and one ampule sodium bicarbonate. Intubated with 8.0 ET tube. ROSC after around 10 minutes. Transferred ISC. Occasionally taking large breaths otherwise unresponsive on the ventilator 07/24: Remains orally intubated on mechanical ventilation. Has not required any sedation since arrival to the ICU, remains encephalopathic/comatose. 07/25: Remains orally intubated on mechanical ventilation. Remains encephalopathic. Started on propofol for vent synchrony last night. Neurology following 07/26 Patient remains intubated, off Diprivan this morning placed on CPAP with PS 10, PEEP:5 and FIO2 40%. Afebrile. Subjective 07/27: Afebrile. Following commands with upper extremity according to overnight RN. Currently opens eyes and withdrawals to pain in bilateral upper extremities. Upper toes bilateral lower extremities. No bowel movement 24 hours. Tolerating tube feeds with Nepro at 40 cc an hour. Attempted to self extubated yesterday. 07/28: The patient is responsive and following commands, tolerated CPAP trials for 16 hours yesterday. Increasing amounts of antihypertensive medication the patient continues on Cleviprex 6 mg/hour, Clonidine dosage increased 0.2 q 8hr. will continue on CPAP trials today. 07/29: Tmax 99.3. The patient tolerated CPAP trials for approximately 8 hours yesterday. Less dosage of PRN antihypertensive medications noted will begin to wean Cleviprex. 07/30: The patient continues to fail CPAP trials secondary to agitation. Infusion change to Precedex. Overnight the patient urine output increased significantly to 100 cc/hr. Objective Vital Signs Date Time Temp Pulse Resp B/P Pulse Ox O2 Delivery O2 Flow Rate FiO2 07/30/16 06:00 63 07/30/16 04:07 96 40 07/30/16 04:00 97.7 18 151/81 07/29/16 07:00 Mechanical Ventilator Intake and Output 07/29/16 07/29/16 07/30/16 08:00 16:00 00:00 Intake Total 680 ml 1070 ml 1266 ml Output Total 350.0 ml 575 ml 1500 ml Balance 330.0 ml 495 ml -234 ml Result Diagram: 07/30/1652607/30/16526 Imaging Last Impressions Chest X-Ray 07/30/16 0600 Signed Impressions: Service Date/Time: Saturday, July 30, 2016 04:21 - CONCLUSION: 1. Cardiomegaly and findings of congestive heart failure. The findings are improved when compared with the prior exam. Emre Daniel MD Brain MRI 07/25/16 0000 Signed Impressions: Service Date/Time: July 17:05 - CONCLUSION: 1. No acute hemorrhage, mass or infarction. 2. Scattered foci of increased signal noted most consistent with chronic small vessel ischemic change. This is not significantly changed. 3. Fluid and high signal is now noted in the mastoid air cells bilaterally consistent with mastoiditis. Grady Hale MD Head CT 07/23/16 0000 Signed Impressions: Service Date/Time: Saturday, July 23, 2016 20:54 - CONCLUSION: Normal examination for a patient of this age. No significant change has occurred. George Choi MD Consultation 07/19/16 0000 Signed Impressions: Service Date/Time: Tuesday, July 19, 2016 00:00 - CONCLUSION: Procedure not performed secondary to cardiopulmonary arrest. Emre Daniel MD Abdomen X-Ray 07/18/16 0000 Signed Impressions: Service Date/Time: July 15:39 - CONCLUSION: No evidence of obstruction. No MRI incompatible foreign body is identified. Eliezer Shay MD Last Impressions Chest X-Ray 07/27/16 0000 Signed Impressions: Service Date/Time: Wednesday, July 27, 2016 04:08 - CONCLUSION: Worsening bibasilar consolidation and effusions. Adolfo Roman MD Brain MRI 07/25/16 0000 Signed Impressions: Service Date/Time: July 17:05 - CONCLUSION: 1. No acute hemorrhage, mass or infarction. 2. Scattered foci of increased signal noted most consistent with chronic small vessel ischemic change. This is not significantly changed. 3. Fluid and high signal is now noted in the mastoid air cells bilaterally consistent with mastoiditis. Grady Hale MD Head CT 07/23/16 Signed Impressions: Service Date/Time: Saturday, July 23, 2016 20:54 - CONCLUSION: Normal examination for a patient of this age. No significant change has occurred. George Choi MD Consultation 07/19/16 Signed Impressions: Service Date/Time: Tuesday, July 19, 2016 00:00 - CONCLUSION: Procedure not performed secondary to cardiopulmonary arrest. Emre Daniel MD Abdomen X-Ray 07/18/16 Signed Impressions: Service Date/Time: July 15:39 - CONCLUSION: No evidence of obstruction. No MRI incompatible foreign body is identified. Eliezer Shay MD Objective Remarks GENERAL: 50-year-old female, critically ill currently orotracheally intubated SKIN: Warm and dry. Right thigh with open vesicle lesion draining/covered with Mepilex HEAD: Normocephalic. EYES: PERRL 4 mm bilaterally and reactive NECK: Supple, trachea midline. Unable to assess JVD . Left IJ clean dry and intact with chlorhexidine covering CARDIOVASCULAR: RRR. S1, S2. No S4. Without murmur RESPIRATORY: On mechanical ventilation, Diminished due to body habitus. Breath sounds equal bilaterally. GASTROINTESTINAL: Abdomen soft, obese. Hypoactive bowel sounds MUSCULOSKELETAL: B/L edema, upper and lower extremities. Neuro: RASS -2, on propofol at 15mcgs/kg/min, orally intubated on mechanical ventilation. When off sedation, anxious but following commands. Date of Insertion: Jul 23, 2016 Line: Central Venous Catheter Side: Left Location: Internal, Jugular A/P Assessment and Plan Neuro/Psych: Toxic metabolic encephalopathy/history CO2 retention History of depression Peripheral neuropathy Anxiety Change to Precedex for vent synchrony as needed. Daily sedation vacation. Neuro is following peripherally- Dr. Estes Acetaminophen for temp >101.0 Baby aspirin 81 mg for now will be continued Holding Elavil 50 mill grams by mouth daily at bedtime in light of altered mental status. Continue gabapentin 300 mg daily for neuropathy (home med). Holding Xanax 0.25 mill grams by mouth twice a day for anxiety. 07/25 MRI brain: No acute hemorrhage, mass or infarction. Scattered foci of increased signal noted most consistent with chronic small vessel ischemic change. Mastoiditis. 07/18 MRI brain: White matter hyperintensities prominent for age indicating possible demyelinating disorder. No evidence of acute infarct. 07/18 CT brain: No acute infarct 07/19 EEG: Mild- mod encephalopathy CV: Hypertension CHF - diastolic Non-STEMI Echocardiogram 05/21 revealed EF 50%. Mildly dilated ventricle. Diffuse hypokinesis. Echocardiogram 07/23 reveals EF 45-50%. No regional motion abnormality. POOL 59 mmHg. Mild TR. On Coreg 25mg BID, hydralazine 50mg TID, lisinopril 20 daily, nifedipine 20 mg Q8 Increase hydralazine to 100 mg 3 times a day(07/27). Received when necessary overnight including IV hydralazine and clonidine Home medications Norvasc 10 mg daily, hydralazine 50 3 times a day, Coreg 25 twice a day Continue atorvastatin 80 mg daily's for dyslipidemia. Continued Bumex increased to 2 mg IV twice a day for diuresis , only 500 cc UOP over the last 12 hours Followed by cardiology. They believe troponin likely due to fluid overloaded state, HTN episode, CKD... previous stress test showing mild small lateral wall defect, offered diagnostic cath with a plan for staged intervention if needed Will discontinue Cleviprex infusion currently at 2mg, attempts to wean off have been unsuccessful, will change to nicardipine Resp: Acute hypoxemic respiratory failure ACV 18///40 Continue with vent support keep sat >92% Ventilator bundle Bronchodilator therapy every 4 hours and as needed Continue CPAP trials today Chest x-ray 07/27 revealed increasing bilateral lower lobe pulmonary edema/ effusion. Follow-up chest x-ray Multiple intubations, multiple attempts at weaning will discuss with possible tracheostomy GI: Continue tube feeds- On Nepro@40ml/hr advance to goal rate, minimal residual Protonix for GI prophylaxis. Pepcid 40 mg daily at home Colace/ Senokot twice daily for bowel regimen 1 dose of MiraLAX and mineral oil, large BM today will add PRN suppository, and continue Miralax Endo: Diabetes mellitus Sliding-scale insulin with Accu checks every 6 hours to maintain euglycemia.. 0 units sliding-scale insulin past 24 hours On Lantus 40 units at night at home. Along with lispro 12 units twice a day and glipizide 2.5 mg daily. Blood glucose levels still elevated, will increase sliding scale regimen Renal: Acute on chronic kidney injury Nephrotic syndrome Followed by nephrology. No indication for current hemodialysis On Bumex to 1 mg IV BID -> increased to 2 mg twice a day Monitor renal function, I/O's, avoid nephrotoxins. Creatinine 2.8-> 2.59 improving Increased urine output 3225cc/24hours Heme: Anemia/microcytic Currently on iron sulfate 325mg PO twice a day/home medication. Monitor CBC. Transfuse for hemoglobin less than 7 ID: MRSA pneumonia Pertinent cultures 07/20 - sputum - MRSA Blood culture 07/24 and 07/25-NGTD Continue abx per ID (zyvox) monitor for sigsn of infections ( Fever, WBC) FEN: Hypokalemia-resolved Electrolyte replacement per ICU protocol MSK: Morbid obesity Osteoporosis Holding Drisdol 50,000 units every Friday. Weight loss encouraged Access - Left IJ CVL day 6 Prophylaxis - GI - Protonix - DVT - SCD/heparin Critical Care: The total critical care time was 33 minutes. Time to perform other separately billable procedures was not included in the critical care time. Due to multiple intubations, multiple attempts at CPAP trials, has a high probability of tracheostomy. Will discuss with family today. D[employer]W [employer] TE[employer] at bedside Physician Susan Farrar MD Jul 30, 2016 07:53
[2016-07-30] MEDS: CHLORHEXIDINE 0.12% (ORAL KIT) 15 ML CUP MT SCH ×4 (08:00→20:00)
[2016-07-30] MEDS ORDERED: DEXMEDETOMIDINE INJ 50 ML IV SCH (08:00)
[2016-07-30] MEDS: SODIUM CHLORIDE 0.9% FLUSH 5 ML FLUSH IVF SCH ×3 (09:00→20:53)
[2016-07-30] MEDS: FERROUS SULFATE 300 MG /5ML UDC PO SCH ×2 (09:00→20:56)
[2016-07-30] MEDS: CARVEDILOL 12.5 MG TAB PO SCH ×2 (09:00→20:54)
[2016-07-30] MEDS: PANTOPRAZOLE SODIUM 40 MG VIAL IV SCH (09:43)
[2016-07-30] MEDS: MUPIROCIN 2% OINT 1 APPLIC/GM SYR EACH NARE SCH ×2 (09:43→20:26)
[2016-07-30] MEDS: HEPARIN SODIUM - SQ 10,000 UNITS/ML VIAL SQ SCH ×2 (09:44→20:54)
[2016-07-30] MEDS: GABAPENTIN 300 MG CAP PO SCH ×2 (09:44→20:56)
[2016-07-30] MEDS: DOCUSATE SODIUM 100 MG CAP PO SCH ×2 (09:44→20:53)
[2016-07-30] MEDS: FERROUS SULFATE 325 MG (65 MG ELEMENTAL IRON) TAB PO SCH (09:44)
[2016-07-30] MEDS: ASPIRIN 81 MG CHEW TAB PO SCH (09:45)
[2016-07-30] MEDS: POTASSIUM CHLORIDE 20 MEQ PWD PACKET TUBE SCH ×2 (09:45→20:55)
[2016-07-30] MEDS: LISINOPRIL 20 MG TAB PO SCH (09:45)
[2016-07-30] MEDS: SENNOSIDES 8.6 MG TAB PO SCH ×2 (09:45→20:54)
[2016-07-30] MEDS: ALBUMIN HUMAN 25% 25 GM/100 ML BAGP IV SCH ×2 (09:46→16:58)
[2016-07-30] MEDS: LINEZOLID 600 MG PREMIX 300 ML IV SCH ×2 (09:46→20:53)
--- NOTE | 2016-07-30 11:47 | HHI.NPPN ---
Subjective History of Present Illness 50 year old with CKD 4/5 Diabetes Nephrotic range proteinuria Additional Remarks Patient remain intubated , more alert, following verbal commands. Review of Systems General Constitutional: Fatigue Cardiovascular Cardiac: Edema Objective Data Data 07/29/16 07/30/16 19:00 07:00 Intake Total 1070 ml 2026 ml Output Total 575 ml 2650 ml Balance 495 ml -624 ml IV Total 647 ml 715 ml Tube Feeding 323 ml 909 ml Lipid 282 ml Albumin 100 ml Tube Irrigant 120 ml Output Urine Total 575 ml 2650 ml Tube Feeding Residual Discard 0 ml # Bowel Movements 0 1 Vital Signs Date Time Temp Pulse Resp B/P Pulse Ox O2 Delivery O2 Flow Rate FiO2 07/30/16 08:17 97 40 07/30/16 06:00 63 07/30/16 04:07 96 40 07/30/16 04:00 40 07/30/16 04:00 54 07/30/16 04:00 97.7 54 18 151/81 96 07/30/16 02:00 59 07/30/16 00:00 97.7 55 18 177/85 97 07/30/16 00:00 45 07/30/16 00:00 55 07/29/16 23:33 99 45 07/29/16 22:00 58 07/29/16 20:37 97 50 07/29/16 20:00 96.9 68 18 166/79 98 07/29/16 20:00 50 07/29/16 20:00 68 07/29/16 16:00 40 07/29/16 16:00 98.2 62 18 148/73 96 07/29/16 15:04 96 50 07/29/16 12:00 97.9 62 19 159/79 96 07/29/16 12:00 40 -: 07/30/16 0527 07/30/16 0527 Physical Exam General Appearance: Obese Throat Throat Exam: Oral Mucosa [place] & Moist Neck Neck Exam: Neck Supple Pulmonary Resp Exam: Crackles, Rhonchi, Decreased Bases, Diminished Breath Sounds Cardiology CV Exam: Regular, Normal Sinus Rhythm Gastrointestinal/Abdomen GI Exam: Soft, Non-Tender, Distended Extremeties Extremities Exam: Pitting Edema, Dependent Edema Neurologic Neuro Exam: Sedated Assessment/Plan Problem List: (1) Stage 4 chronic kidney disease Plan: Patient with advanced kidney disease and had the workup in Dec. including MATEUS/SPEP Neg Nephrotic proteinuria 10 grams. Urine out put increased, Most likely has advance Diabetic Nephropathy. Urine out put is good, on Bumex. UOP 3.2 L as GFR 20 improved Cr declined continue with Bumex 2 mg q 6 hrs for more diuresis K low replace may need Trach (2) Nephrotic syndrome Plan: Protein to creatinine ratio above 10 10.52 (3) Acute exacerbation of CHF (congestive heart failure) Plan: This is likely due to chronic kidney disease and diastolic dysfunction (4) Diabetes Plan: Advance manifestations diabetic nephropathy, retinopathy and neuropathy (5) HTN (hypertension) Plan: Continue to monitor (6) Respiratory failure Problem Qualifiers (1) Acute exacerbation of CHF (congestive heart failure): Qualified Code: I50.9 - Acute on chronic congestive heart failure, unspecified congestive heart failure type (2) Diabetes: (3) HTN (hypertension): Qualified Code: I10 - Essential hypertension (4) Respiratory failure: Qualified Code: J96.01 - Acute respiratory failure with hypoxia Ebony Garcia MD Jul 30, 2016 11:47
[2016-07-30] MEDS: hydrALAZINE HCL 20 MG/ML VIAL IV PUSH PRN (11:58)
[2016-07-30] MEDS ORDERED: POTASSIUM CHLORIDE INJ 30 MEQ in SODIUM CHLORIDE 0.9% INJ 100 ML IV-CENTRAL ONE (12:00)
[2016-07-30] MEDS: ACETAMINOPHEN/HYDROcodone 325 MG/5 MG TAB PO PRN (15:41)
[2016-07-30] MEDS: NITROGLYCERIN 2% OINT 1 GM PACKET TOPICAL PRN (15:55)
[2016-07-30] MEDS ORDERED: METOPROLOL TARTRATE 5 MG/5 ML VIAL ONE (17:10)
[2016-07-30] MEDS ORDERED: METOPROLOL TARTRATE 5 MG/5 ML VIAL IV PUSH ONE (17:15)
[2016-07-30] MEDS: niCARdipine INJ 25 MG in SODIUM CHLOR 0.9% 250 ML INJ 250 ML IV SCH ×2 (17:55→22:22)
[2016-07-30] MEDS: ATORVASTATIN 80 MG TAB PO SCH (20:56)
[2016-07-30] MEDS ORDERED: DEXMEDETOMIDINE INJ 1,000 MCG in SODIUM CHLOR 0.9% 250 ML INJ 240 ML IV SCH (22:25)
[2016-07-31] VITALS (17 sets, daily range): BP systolic 142–174; BP diastolic 36–88; PULSE 49–84; RESP 16–27; TEMP 97.4–99.6; O2SAT 91–98
[2016-07-31] MEDS: RESP: ALBUTEROL 2.5 MG/IPRATROPIUM 0.5 MG NEB (SCH) NEB (03:40)
[2016-07-31] MEDS: CHLORHEXIDINE GLUCONATE 2 % 1 PACK (2 CLOTHS) TOP SCH (04:00)
[2016-07-31] MEDS: BUMETANIDE INJ 1 MG/4 ML VIAL IV PUSH SCH ×4 (05:13→23:54)
[2016-07-31] MEDS: cloNIDine HCL 0.1 MG TAB PO SCH ×3 (05:13→22:00)
[2016-07-31] MEDS: hydrALAZINE HCL 50 MG TAB PO SCH ×3 (05:13→22:00)
[2016-07-31 06:11] LABS: HEMATOCRIT 30.5 % (35.0-46.0); MEAN CELL VOLUME 70.3 FL (80.0-100.0); MEAN CORPUSCULAR HGB CONC 31.4 % (32.0-36.0); PLATELET COUNT 165 TH/MM3 (150-450); RED BLOOD COUNT 4.34 MIL/MM3 (4.00-5.30); RED CELL DISTRIBUTION WIDTH 18.6 % (11.6-17.2); WHITE BLOOD COUNT 6.5 TH/MM3 (4.0-11.0)
[2016-07-31 06:18] LABS: REVIEW FLAG FINAL
[2016-07-31 06:33] LABS: BICARBONATE 25.1 MEQ/L (21.0-32.0); MAGNESIUM 1.9 MG/DL (1.5-2.5); POTASSIUM 3.3 MEQ/L (3.5-5.1)
[2016-07-31] MEDS: INSULIN NovoLIN REGULAR SUPPLEMENTAL SCALE SQ SCH ×4 (06:43→23:00)
--- NOTE | 2016-07-31 07:11 | HHI.CCPN ---
Subjective Remarks/Hospital Course 07/18: 50 y/o female with a history of chf, depression, htn, dm, and ckd presented to the ED on 07/15 with complaints of dyspnea, swelling in her lower extremities and a 50lb weight gain since last admission 06/03/16. Patient had gained 50 lbs in fluid from last admission. She presented with increased shortness of breath with intermittent chest pressure with no radiation or associated symptoms. She was admitted on 05/31/16 and diagnosed with CHF, discharged home on on Bumex. Patient states she recently ran out of meds and has not followed up with a doctor due to transportation issues. She is not from here and her pcp is 2 hours away and she does not want her kids to take off work to take her to appointments. She is hoping to move back in 2 weeks or so. She states she tried to call a otr owner operator to follow up but they required her records and she did not get them. Despite taking Bumex she states she has not had an increase in urination. Last admission 2d echo showed systolic dysfunction with EF 50%, she was seen by DR. Choudhury, and DR. Medley. Patient was admitted by hospitalist service. She was evaluated by Dr. Choudhury from cardiology who offered cardiac catheterization as patient did have an elevated troponin and previous abnormal stress test however she was concerned regarding ending up on hemodialysis so she refused. Patient was reportedly on nasal cannula earlier today however around 1:30 PM was noted to be lethargic and minimally responsive. Stroke alert was called. Head CT was negative for bleed. Recent had an ABG done which revealed pH of 7.0/PCO2 87/PO2 49. Critical care service was contacted by Dr. Mckeon. Both myself and Dr. Ott arrived at bedside. Patient was encephalopathic though arousable with painful stimuli occasional morning however not following commands. Her fingerstick glucose was in the 140s earlier. Decision was made to proceed with endotracheal intubation which was performed by Dr. Goff. A stat MRI brain was ordered to evaluate for CVA after discussion with Dr. Estes. 07/19: Awakens easily off sedation following commands this morning. On mechanical ventilation. MRI brain done yesterday did not show any acute event. 07/20 Patient was extubated yesterday went to IR for vascath placement and had resp arrest she was subsequently reintubated. Now sedated with Diprivan. Afebrile. MRI brain showed no evidence of acute infract. 07/21 Patient s/p extubation yesterday was given racemic Decadron 4mg IV x1 and racemic epi for ? stridor overnight placed on BIPAP 03/20 with 40% FIO2. ABG on BIPAP shows improvements in her resp acidosis with PH 7.30 and CO2: 48 from 57. Now of BIPAP and is on 6L oxygen. 07/22 No acute events overnight. Patient is on 4L oxygen with good sats. Afebrile. renal function improving with Cr: 3.22 and UO: 2850ml in 24 hrs 07/23 - CODE BLUE call today secondary to unresponsiveness. According to RN, patient received [place] at 5 PM. Not seen. Upon evaluation by RN patient was not breathing on nasal cannula. Received 1 mg of epinephrine and one ampule sodium bicarbonate. Intubated with 8.0 ET tube. ROSC after around 10 minutes. Transferred ISC. Occasionally taking large breaths otherwise unresponsive on the ventilator 07/24: Remains orally intubated on mechanical ventilation. Has not required any sedation since arrival to the ICU, remains encephalopathic/comatose. 07/25: Remains orally intubated on mechanical ventilation. Remains encephalopathic. Started on propofol for vent synchrony last night. Neurology following 07/26 Patient remains intubated, off Diprivan this morning placed on CPAP with PS 10, PEEP:5 and FIO2 40%. Afebrile. Subjective 07/27: Afebrile. Following commands with upper extremity according to overnight RN. Currently opens eyes and withdrawals to pain in bilateral upper extremities. Upper toes bilateral lower extremities. No bowel movement 24 hours. Tolerating tube feeds with Nepro at 40 cc an hour. Attempted to self extubated yesterday. 07/28: The patient is responsive and following commands, tolerated CPAP trials for 16 hours yesterday. Increasing amounts of antihypertensive medication the patient continues on Cleviprex 6 mg/hour, Clonidine dosage increased 0.2 q 8hr. will continue on CPAP trials today. 07/29: Tmax 99.3. The patient tolerated CPAP trials for approximately 8 hours yesterday. Less dosage of PRN antihypertensive medications noted will begin to wean Cleviprex. 07/30: The patient continues to fail CPAP trials secondary to agitation. Infusion change to Precedex. Overnight the patient urine output increased significantly to 100 cc/hr. 07/31: Tolerating PSV trials. Will extubate and hope we can keep her in the bed or chair. Objective Vital Signs Date Time Temp Pulse Resp B/P Pulse Ox O2 Delivery O2 Flow Rate FiO2 07/31/16 06:00 58 07/31/16 04:19 96 40 07/31/16 04:00 98.2 20 160/88 07/29/16 07:00 Mechanical Ventilator Intake and Output 07/30/16 07/30/16 07/31/16 08:00 16:00 00:00 Intake Total 760 ml 966 ml 1068 ml Output Total 1150 ml 1150 ml 1100 ml Balance -390 ml -184 ml -32 ml Result Diagram: 07/31/16 0530 07/31/16 0530 Imaging Last Impressions Chest X-Ray 07/30/16 0600 Signed Impressions: Service Date/Time: Saturday, July 30, 2016 04:21 - CONCLUSION: 1. Cardiomegaly and findings of congestive heart failure. The findings are improved when compared with the prior exam. Emre Daniel MD Brain MRI 07/25/16 0000 Signed Impressions: Service Date/Time: July 17:05 - CONCLUSION: 1. No acute hemorrhage, mass or infarction. 2. Scattered foci of increased signal noted most consistent with chronic small vessel ischemic change. This is not significantly changed. 3. Fluid and high signal is now noted in the mastoid air cells bilaterally consistent with mastoiditis. Grady Hale MD Head CT 07/23/16 0000 Signed Impressions: Service Date/Time: Saturday, July 23, 2016 20:54 - CONCLUSION: Normal examination for a patient of this age. No significant change has occurred. George Choi MD Consultation 07/19/16 0000 Signed Impressions: Service Date/Time: Tuesday, July 19, 2016 00:00 - CONCLUSION: Procedure not performed secondary to cardiopulmonary arrest. Emre Daniel MD Abdomen X-Ray 07/18/16 0000 Signed Impressions: Service Date/Time: July 15:39 - CONCLUSION: No evidence of obstruction. No MRI incompatible foreign body is identified. Eliezer Shay MD Last Impressions Chest X-Ray 07/27/16 Signed Impressions: Service Date/Time: Wednesday, July 27, 2016 04:08 - CONCLUSION: Worsening bibasilar consolidation and effusions. Adolfo Roman MD Brain MRI 07/25/16 Signed Impressions: Service Date/Time: July 17:05 - CONCLUSION: 1. No acute hemorrhage, mass or infarction. 2. Scattered foci of increased signal noted most consistent with chronic small vessel ischemic change. This is not significantly changed. 3. Fluid and high signal is now noted in the mastoid air cells bilaterally consistent with mastoiditis. Grady Hale MD Head CT 07/23/16 Signed Impressions: Service Date/Time: Saturday, July 23, 2016 20:54 - CONCLUSION: Normal examination for a patient of this age. No significant change has occurred. George Choi MD Consultation 07/19/16 Signed Impressions: Service Date/Time: Tuesday, July 19, 2016 00:00 - CONCLUSION: Procedure not performed secondary to cardiopulmonary arrest. Emre Daniel MD Abdomen X-Ray 07/18/16 Signed Impressions: Service Date/Time: July 15:39 - CONCLUSION: No evidence of obstruction. No MRI incompatible foreign body is identified. Eliezer Shay MD Objective Remarks GENERAL: 50-year-old female, orotracheally intubated SKIN: Warm and dry. Right thigh with open vesicle lesion draining/covered with Mepilex HEAD: Normocephalic. EYES: PERRL 3 mm bilaterally and reactive NECK: Supple, trachea midline. Unable to assess JVD. Left IJ clean dry and intact with chlorhexidine covering CARDIOVASCULAR: RRR. S1, S2. Without murmur RESPIRATORY: On mechanical ventilation, decreased bases. Breath sounds equal bilaterally. Few mobile secretions. GASTROINTESTINAL: Abdomen soft, obese. Active bowel sounds MUSCULOSKELETAL: B/L edema, upper and lower extremities. Neuro: RASS -2, When off sedation, anxious but following commands. Date of Insertion: Jul 23, 2016 Line: Central Venous Catheter Side: Left Location: Internal, Jugular A/P Assessment and Plan Neuro/Psych: Toxic metabolic encephalopathy/history CO2 retention History of depression Peripheral neuropathy Anxiety Change to Precedex for vent synchrony as needed. Daily sedation vacation. Neuro is following peripherally- Dr. Estes Acetaminophen for temp >101.0 Baby aspirin 81 mg for now will be continued Holding Elavil 50 mill grams by mouth daily at bedtime in light of altered mental status. Continue gabapentin 300 mg daily for neuropathy (home med). Holding Xanax 0.25 mill grams by mouth twice a day for anxiety. 07/25 MRI brain: No acute hemorrhage, mass or infarction. Scattered foci of increased signal noted most consistent with chronic small vessel ischemic change. Mastoiditis. 07/18 MRI brain: White matter hyperintensities prominent for age indicating possible demyelinating disorder. No evidence of acute infarct. 07/18 CT brain: No acute infarct 07/19 EEG: Mild- mod encephalopathy CV: Hypertension CHF - diastolic Non-STEMI Echocardiogram 05/21 revealed EF 50%. Mildly dilated ventricle. Diffuse hypokinesis. Echocardiogram 07/23 reveals EF 45-50%. No regional motion abnormality. POOL 59 mmHg. Mild TR. On Coreg 25mg BID, hydralazine 50mg TID, lisinopril 20 daily, nifedipine 20 mg Q8 Increase hydralazine to 100 mg 3 times a day(07/27). Received when necessary overnight including IV hydralazine and clonidine Home medications Norvasc 10 mg daily, hydralazine 50 3 times a day, Coreg 25 twice a day Continue atorvastatin 80 mg daily's for dyslipidemia. Continued Bumex increased to 2 mg IV twice a day for diuresis , only 500 cc UOP over the last 12 hours Followed by cardiology. They believe troponin likely due to fluid overloaded state, HTN episode, CKD... previous stress test showing mild small lateral wall defect, offered diagnostic cath with a plan for staged intervention if needed Will discontinue Cleviprex infusion currently at 2mg, attempts to wean off have been unsuccessful, will change to nicardipine Extubate and maybe BP control will be easier. Resp: Acute hypoxemic respiratory failure ACV 18/550/5/40 Continue with vent support keep sat >92% Ventilator bundle Bronchodilator therapy every 4 hours and as needed Continue CPAP trials today Chest x-ray 07/27 revealed increasing bilateral lower lobe pulmonary edema/ effusion. Follow-up chest x-ray Multiple intubations, multiple attempts at weaning will discuss with possible tracheostomy GI: Continue tube feeds- On Nepro@40ml/hr advance to goal rate, minimal residual Protonix for GI prophylaxis. Pepcid 40 mg daily at home Colace/ Senokot twice daily for bowel regimen 1 dose of MiraLAX and mineral oil, large BM today will add PRN suppository, and continue Miralax Hold TFs, NG to suction. Endo: Diabetes mellitus Sliding-scale insulin with Accu checks every 6 hours to maintain euglycemia.. 0 units sliding-scale insulin past 24 hours On Lantus 40 units at night at home. Along with lispro 12 units twice a day and glipizide 2.5 mg daily. Blood glucose levels still elevated, will increase sliding scale regimen Renal: Acute on chronic kidney injury Nephrotic syndrome Followed by nephrology. No indication for current hemodialysis On Bumex to 1 mg IV BID -> increased to 2 mg twice a day Monitor renal function, I/O's, avoid nephrotoxins. Creatinine 2.8-> 2.59 improving Lasix X 1. Heme: Anemia/microcytic Currently on iron sulfate 325mg PO twice a day/home medication. Monitor CBC. Transfuse for hemoglobin less than 7 ID: MRSA pneumonia Pertinent cultures 07/20 - sputum - MRSA Blood culture 07/24 and 07/25-NGTD Continue abx per ID (zyvox) monitor for signs of infections ( Fever, WBC) FEN: Hypokalemia-resolved Electrolyte replacement per ICU protocol Replace today 07/31 MSK: Morbid obesity Osteoporosis Holding Drisdol 50,000 units every Friday. Weight loss encouraged Access - Left IJ CVL day 7 Prophylaxis - GI - Protonix - DVT - SCD/heparin Overall impression: Numerous chronic cardiopulmonary problems requiring frequent admissions and intubations. It may com,e to trach yet. Trial extubation today. Carlos Narayanan MD Jul 31, 2016 07:11
[2016-07-31] MEDS ORDERED: FUROSEMIDE 40 MG/4 ML VIAL IV PUSH ONE (07:15)
[2016-07-31] MEDS: SODIUM CHLORIDE 0.9% FLUSH 5 ML FLUSH IVF SCH ×3 (07:30→22:43)
[2016-07-31] MEDS: CHLORHEXIDINE 0.12% (ORAL KIT) 15 ML CUP MT SCH ×4 (08:00→19:36)
[2016-07-31] MEDS: LISINOPRIL 20 MG TAB PO SCH (08:13)
[2016-07-31] MEDS: CARVEDILOL 12.5 MG TAB PO SCH ×2 (08:13→21:00)
[2016-07-31] MEDS: HEPARIN SODIUM - SQ 10,000 UNITS/ML VIAL SQ SCH ×2 (08:13→22:43)
[2016-07-31] MEDS: MUPIROCIN 2% OINT 1 APPLIC/GM SYR EACH NARE SCH ×2 (08:13→21:00)
[2016-07-31] MEDS: POTASSIUM CHLORIDE 20 MEQ PWD PACKET TUBE SCH ×2 (08:13→21:00)
[2016-07-31] MEDS: PANTOPRAZOLE SODIUM 40 MG VIAL IV SCH (08:13)
[2016-07-31] MEDS: GABAPENTIN 300 MG CAP PO SCH ×2 (08:13→21:00)
[2016-07-31] MEDS: SENNOSIDES 8.6 MG TAB PO SCH ×2 (08:13→21:00)
[2016-07-31] MEDS: FERROUS SULFATE 300 MG /5ML UDC PO SCH ×2 (08:13→21:00)
[2016-07-31] MEDS: DOCUSATE SODIUM 100 MG CAP PO SCH ×2 (08:13→21:00)
[2016-07-31] MEDS: ALBUMIN HUMAN 25% 25 GM/100 ML BAGP IV SCH ×2 (08:14→17:00)
[2016-07-31] MEDS: LINEZOLID 600 MG PREMIX 300 ML IV SCH ×2 (08:14→22:43)
[2016-07-31] MEDS: POTASSIUM CHLOR 20 MEQ PREMIX 100 ML IV SCH ×2 (08:14→08:15)
[2016-07-31] MEDS: ASPIRIN 81 MG CHEW TAB PO SCH (08:15)
[2016-07-31] MEDS: niCARdipine INJ 25 MG in SODIUM CHLOR 0.9% 250 ML INJ 250 ML IV SCH ×4 (09:11→17:01)
--- NOTE | 2016-07-31 10:27 | HHI.IDPN ---
Subjective Subjective Remarks Notes reviewed D/W RN Temps ok Got extubated this morning On 4L NC, sats 94% Denies SOB BP ok Antibiotics Zyvox Lines [facility] TLC Past Medical History CHF last echo 08/01/15 EF 50% Depression HTN DM Neuropathy Anemia CKD Past Surgical History Cardiac Cath 2016 Allergies: Coded Allergies: Lyrica (Verified Allergy, Severe, Anaphylaxis, 07/15/16) *MDRO Multi-Drug Resistant Organism (Verified Adverse Reaction, Unknown, ) MRSA (sputum)-07/20/16 MRSA PCR Screen POSITIVE - 07/18/2016 Objective . Vital Signs Date Time Temp Pulse Resp B/P Pulse Ox O2 Delivery O2 Flow Rate FiO2 07/31/16 10:00 67 07/31/16 08:33 94 Nasal Cannula 4 07/31/16 08:33 98 Nasal Cannula 4.00 07/31/16 08:33 94 Nasal Cannula 4.00 07/31/16 08:00 40 07/31/16 08:00 97.4 56 16 154/36 98 07/31/16 08:00 56 07/31/16 06:00 58 07/31/16 04:19 96 40 07/31/16 04:00 98.2 52 20 160/88 94 07/31/16 04:00 53 07/31/16 04:00 40 07/31/16 02:00 50 07/31/16 01:10 98 40 07/31/16 00:00 40 07/31/16 00:00 49 07/31/16 00:00 98.4 49 17 156/79 94 07/30/16 22:26 98 40 07/30/16 22:00 52 07/30/16 20:11 96 40 07/30/16 20:00 98.0 50 17 166/82 94 07/30/16 20:00 50 07/30/16 20:00 40 07/30/16 18:00 55 07/30/16 16:06 93 40 07/30/16 16:05 40 07/30/16 16:00 98.5 55 182/91 07/30/16 16:00 55 07/30/16 16:00 40 07/30/16 14:00 51 07/30/16 12:00 98.2 52 16 177/77 07/30/16 12:00 40 07/30/16 12:00 54 07/30/16 07/30/16 07/31/16 15:00 23:00 07:00 Intake Total 966 ml 1068 ml 866 ml Output Total 1150 ml 1100 ml 800 ml Balance -184 ml -32 ml 66 ml IV Total 557 ml 762 ml 604 ml Tube Feeding 309 ml 306 ml 262 ml Albumin 100 ml Output Urine Total 1150 ml 1100 ml 800 ml # Bowel Movements 0 0 0 . Laboratory Tests Test 07/30/16 07/31/16 05:27 05:30 White Blood Count 4.9 TH/MM3 6.5 TH/MM3 Red Blood Count 4.21 MIL/MM3 4.34 MIL/MM3 Hemoglobin 9.5 GM/DL 9.6 GM/DL Hematocrit 29.3 % 30.5 % Mean Corpuscular Volume 69.7 FL 70.3 FL Mean Corpuscular Hemoglobin 22.5 PG 22.0 PG Mean Corpuscular Hemoglobin 32.2 % 31.4 % Concent Red Cell Distribution Width 18.6 % 18.6 % Platelet Count 191 TH/MM3 165 TH/MM3 Mean Platelet Volume 9.7 FL 9.2 FL Laboratory Tests Test 07/29/16 07/30/16 07/31/16 15:12 05:27 05:30 Sodium Level 141 MEQ/L 142 MEQ/L 144 MEQ/L Potassium Level 3.1 MEQ/L 3.4 MEQ/L 3.3 MEQ/L Chloride Level 107 MEQ/L 107 MEQ/L 109 MEQ/L Carbon Dioxide Level 24.8 MEQ/L 24.8 MEQ/L 25.1 MEQ/L Anion Gap 9 MEQ/L 10 MEQ/L 10 MEQ/L Blood Urea Nitrogen 39 MG/DL 36 MG/DL 40 MG/DL Creatinine 2.84 MG/DL 2.59 MG/DL 2.44 MG/DL Estimat Glomerular Filtration 18 ML/MIN 20 ML/MIN 21 ML/MIN Rate Random Glucose 210 MG/DL 173 MG/DL 161 MG/DL Calcium Level 8.5 MG/DL 8.7 MG/DL 9.0 MG/DL Phosphorus Level 3.9 MG/DL 3.9 MG/DL Magnesium Level 1.9 MG/DL 1.9 MG/DL Imaging Chest X-Ray 07/29/16 0000 Signed Impressions: Service Date/Time: Friday, July 29, 2016 06:31 - CONCLUSION: 1. Cardiomegaly and findings of congestive heart failure. There has been no significant change when compared to the prior exam. Emre Daniel MD Chest X-Ray 07/28/16 06 Signed Impressions: Service Date/Time: Thursday, July 28, 2016 04:44 - CONCLUSION: No significant change. Adolfo Roman MD Chest X-Ray 07/27/16 Signed Impressions: Service Date/Time: Wednesday, July 27, 2016 04:08 - CONCLUSION: Worsening bibasilar consolidation and effusions. Adolfo Roman MD Chest X-Ray 07/26/16599 Signed Impressions: Service Date/Time: Tuesday, July 26, 2016 04:54 - CONCLUSION: Slightly improved bibasilar consolidation and small effusions. Adolfo Roman MD Brain MRI 07/25/16 Signed Impressions: Service Date/Time: July 17:05 - CONCLUSION: 1. No acute hemorrhage, mass or infarction. 2. Scattered foci of increased signal noted most consistent with chronic small vessel ischemic change. This is not significantly changed. 3. Fluid and high signal is now noted in the mastoid air cells bilaterally consistent with mastoiditis. Grady Hale MD Chest X-Ray 07/23/161999 Signed Impressions: Service Date/Time: Saturday, July 23, 2016 20:11 - CONCLUSION: 1. Left IJ line tip in superior vena cava without pneumothorax. George Choi MD Head CT 07/23/16 Signed Impressions: Service Date/Time: Saturday, July 23, 2016 20:54 - CONCLUSION: Normal examination for a patient of this age. No significant change has occurred. George Choi MD Consultation 07/19/16 Signed Impressions: Service Date/Time: Tuesday, July 19, 2016 00:00 - CONCLUSION: Procedure not performed secondary to cardiopulmonary arrest. Emre Daniel MD Brain MRI 07/18/16 Signed Impressions: Service Date/Time: July 17:15 - CONCLUSION: White matter hyperintensities prominent for age indicating possible demyelinating disorder. No evidence of acute infarct. Eliezer Shay MD Abdomen X-Ray 07/18/16 Signed Impressions: Service Date/Time: July 15:39 - CONCLUSION: No evidence of obstruction. No MRI incompatible foreign body is identified. Eliezer Shay MD Physical Exam GENERAL: Awake and responding, NAD SKIN: Cool skin, dry, no generalized rash. HEENT: [place] conjunctivae. No scleral icterus. NG tube in place. Endotracheal tube is in the mouth. Has moist oral mucosa. NECK: Supple, not tender. Left IJ central line in place with no evidence of infection. CARDIOVASCULAR: Regular rate and rhythm without murmurs, gallops, or rubs. RESPIRATORY: Coarse breath sounds bilaterally, and equal. Decreased breath sounds at the bases. GASTROINTESTINAL: Abdomen soft, obese, nondistended, not tender. Bowel sounds are present and normoactive. No guarding. MUSCULOSKELETAL: Extremities without clubbing, cyanosis. Has improving edema both hands. NEUROLOGICAL: Awake and alert, grossly non-focal : Calderon catheter in place, looks clear LINE: Left IJ central line with no evidence of infection. PIV with no evidence of infection Assessment & Plan Remarks IMPRESSION Bilateral infiltrates, due to pulmonary edema, now with HCAP - C/S with MRSA Recurrent arrest felt to be due to primary respiratory event Respiratory failure , recurrent post arrest - just extubated this morning Possibly has PALMER CHF Obesity CKD (+) UA RECOMMENDATION Complete 7 days Zyvox - stop after today's dose Monitor progress Monitor once off Abx Monitor respiratory status D/W Polina Arrington MD Jul 31, 2016 10:26
--- NOTE | 2016-07-31 13:18 | HHI.NPPN ---
Subjective History of Present Illness 50 year old with CKD 4/5 Diabetes Nephrotic range proteinuria Additional Remarks Patient extubated , alert, following verbal commands. Review of Systems General Constitutional: Fatigue Cardiovascular Cardiac: Edema Objective Data Data 07/30/16 07/31/16 19:00 07:00 Intake Total 966 ml 1934 ml Output Total 1150 ml 1900 ml Balance -184 ml 34 ml IV Total 557 ml 1366 ml Tube Feeding 309 ml 568 ml Albumin 100 ml Output Urine Total 1150 ml 1900 ml # Bowel Movements 0 0 Vital Signs Date Time Temp Pulse Resp B/P Pulse Ox O2 Delivery O2 Flow Rate FiO2 07/31/16 10:00 67 07/31/16 08:33 94 Nasal Cannula 4 07/31/16 08:33 98 Nasal Cannula 4.00 07/31/16 08:33 94 Nasal Cannula 4.00 07/31/16 08:00 40 07/31/16 08:00 97.4 56 16 154/36 98 07/31/16 08:00 56 07/31/16 06:00 58 07/31/16 04:19 96 40 07/31/16 04:00 98.2 52 20 160/88 94 07/31/16 04:00 53 07/31/16 04:00 40 07/31/16 02:00 50 07/31/16 01:10 98 40 07/31/16 00:00 40 07/31/16 00:00 49 07/31/16 00:00 98.4 49 17 156/79 94 07/30/16 22:26 98 40 07/30/16 22:00 52 07/30/16 20:11 96 40 07/30/16 20:00 98.0 50 17 166/82 94 07/30/16 20:00 50 07/30/16 20:00 40 07/30/16 18:00 55 07/30/16 16:06 93 40 07/30/16 16:05 40 07/30/16 16:00 98.5 55 182/91 07/30/16 16:00 55 07/30/16 16:00 40 07/30/16 14:00 51 -: 07/31/16 0530 07/31/16 0530 Physical Exam General Appearance: Obese Throat Throat Exam: Oral Mucosa [place] & Moist Neck Neck Exam: Neck Supple Pulmonary Resp Exam: Rhonchi, Decreased Bases, Diminished Breath Sounds Cardiology CV Exam: Regular, Normal Sinus Rhythm Gastrointestinal/Abdomen GI Exam: Soft, Non-Tender, Distended Extremeties Extremities Exam: Pitting Edema, Dependent Edema Neurologic Neuro Exam: Sedated Assessment/Plan Problem List: (1) Stage 4 chronic kidney disease Plan: Patient with advanced kidney disease and had the workup in May. including MATEUS/SPEP Neg Nephrotic proteinuria 10 grams. Urine out put increased, Most likely has advance Diabetic Nephropathy. Urine out put is good, on Bumex. UOP 3 L as GFR 20 improved Cr declined continue with Bumex 2 mg q 6 hrs for more diuresis K low replace extubated (2) Nephrotic syndrome Plan: Protein to creatinine ratio above 10 10.52 (3) Acute exacerbation of CHF (congestive heart failure) Plan: This is likely due to chronic kidney disease and diastolic dysfunction (4) Diabetes Plan: Advance manifestations diabetic nephropathy, retinopathy and neuropathy (5) HTN (hypertension) Plan: Continue to monitor Problem Qualifiers (1) Acute exacerbation of CHF (congestive heart failure): Qualified Code: I50.9 - Acute on chronic congestive heart failure, unspecified congestive heart failure type (2) Diabetes: (3) HTN (hypertension): Qualified Code: I10 - Essential hypertension Ebony Garcia MD Jul 31, 2016 13:18
[2016-07-31] MEDS: ONDANSETRON HCL 4 MG/2 ML VIAL IV PUSH PRN (14:17)
[2016-07-31 15:55] LABS: BLOOD GAS BASE EXCESS -2.4 mmol/L (-2-2); BLOOD GAS CARBOXYHEMOGLOBIN 1.3 % (0-4); BLOOD GAS HCO3 23 mmol/L (22-26); BLOOD GAS METHEMOGLOBIN 1.3 % (0-2); BLOOD GAS O2 HGB SATURATION 79 % (90-100); BLOOD GAS OXYGEN CONTENT 11.8 Vol % (12.0-20.0); BLOOD GAS PCO2 45 mmHg (38-42); BLOOD GAS PO2 52 mmHg (61-120); BLOOD GAS TOTAL HGB 10.6 G/DL (12.0-16.0); TEMP CORR TO 98.6
[2016-07-31 15:56] LABS: CRITICAL VALUE YES; DRAW SITE RT RADIAL; LITER FLOW 4 L/M; NUMBER OF ARTERIAL PUNCTURES 1; OXYGEN DEVICE NASAL CANNULA; STAT YES; ULNAR PULSE PRESENT
--- NOTE | 2016-07-31 19:18 | HHI.PR ---
Subjective Remarks Extubated . More responsive today . Vomited twice. On O2 N/C 4l. Good output. Objective Vital Signs Date Time Temp Pulse Resp B/P Pulse Ox O2 Delivery O2 Flow Rate FiO2 07/31/16 18:00 79 07/31/16 16:00 98.5 81 26 142/78 92 07/31/16 16:00 81 07/31/16 14:00 84 07/31/16 12:00 97.8 80 23 174/88 94 07/31/16 12:00 80 07/31/16 10:00 67 07/31/16 08:33 94 Nasal Cannula 4 07/31/16 08:33 98 Nasal Cannula 4.00 07/31/16 08:33 94 Nasal Cannula 4.00 07/31/16 08:00 40 07/31/16 08:00 97.4 56 16 154/36 98 07/31/16 08:00 56 07/31/16 06:00 58 07/31/16 04:19 96 40 07/31/16 04:00 98.2 52 20 160/88 94 07/31/16 04:00 53 07/31/16 04:00 40 07/31/16 02:00 50 07/31/16 01:10 98 40 07/31/16 00:00 40 07/31/16 00:00 49 07/31/16 00:00 98.4 49 17 156/79 94 07/30/16 22:26 98 40 07/30/16 22:00 52 07/30/16 20:11 96 40 07/30/16 20:00 98.0 50 17 166/82 94 07/30/16 20:00 50 07/30/16 20:00 40 I/O 07/30/16 07/30/16 07/30/16 07/31/16 07/31/16 07/31/16 07:00 15:00 23:00 07:00 15:00 23:00 Intake Total 760 ml 966 ml 1068 ml 866 ml 1069 ml Output Total 1150 ml 1150 ml 1100 ml 800 ml 775 ml Balance -390 ml -184 ml -32 ml 66 ml 294 ml IV Total 340 ml 557 ml 762 ml 604 ml 1069 ml Tube Feeding 300 ml 309 ml 306 ml 262 ml Albumin 100 ml Tube Irrigant 120 ml Output Urine Total 1150 ml 1150 ml 1100 ml 800 ml 775 ml # Bowel Movements 1 0 0 0 Result Diagram: 07/31/16 0530 07/31/16 1628 Objective Remarks General: This is a very obese middle-aged lady who is alert. HEENT: Head normocephalic. Pupils are reactive and equal. Tongue is moist. Throat is clear. Nasal mucosa clear Neck: Supple. No lymphadenopathy. No venous distension . Trachea midline. Chest: Distant breath sounds with wheezes bilaterally, prolonged expirations, crackles at the lung bases. Heart: The heart sounds are irregular. S1 and S2. No definite murmur. No S3. Abdomen: Soft, protuberant. No mass, no organomegaly or tenderness. Bowel sounds are active. Extremities: Decreased peripheral pulses. 2+ leg edema. Neurologic: responsive. Cranial nerves not tested. Rectal: Exam deferred. Skin: Scaly, dry and warm. Assessment and Plan Assessment and Plan . IMPRESSION 1. CHF with acute exacerbation. 2. Possible obstructive sleep apnea syndrome. 3. Hypertension. 4. Elevated troponin. 5. Diabetes mellitus type 2. 6. S/P respiratory Arrest. Plan : 1. Wean O2 to 3 L. 2. Bipap at HS 12/5 , FIo2 30 % 3. Nebs qid , duoneb. 4. Zofran 4 mg q6h prn 5. No sedation. 6. BMP,CBC in am 7. Cont Antibiotics. Sheela Lau MD Jul 31, 2016 19:18
[2016-07-31] MEDS: ATORVASTATIN 80 MG TAB PO SCH (21:00)
[2016-08-01] VITALS (19 sets, daily range): BP systolic 132–166; BP diastolic 61–90; PULSE 74–86; RESP 14–24; TEMP 97.9–100.3; O2SAT 92–100
[2016-08-01] MEDS: niCARdipine INJ 25 MG in SODIUM CHLOR 0.9% 250 ML INJ 250 ML IV SCH ×5 (01:24→20:54)
[2016-08-01] MEDS: CHLORHEXIDINE GLUCONATE 2 % 1 PACK (2 CLOTHS) TOP SCH (04:00)
[2016-08-01] MEDS: INSULIN NovoLIN REGULAR SUPPLEMENTAL SCALE SQ SCH ×4 (05:00→23:00)
[2016-08-01 05:23] LABS: BICARBONATE 23.9 MEQ/L (21.0-32.0); POTASSIUM 3.4 MEQ/L (3.5-5.1)
[2016-08-01 05:40] LABS: BLOOD GAS BASE EXCESS -3.2 mmol/L (-2-2); BLOOD GAS CARBOXYHEMOGLOBIN 1.5 % (0-4); BLOOD GAS HCO3 22 mmol/L (22-26); BLOOD GAS METHEMOGLOBIN 1.1 % (0-2); BLOOD GAS O2 HGB SATURATION 91 % (90-100); BLOOD GAS OXYGEN CONTENT 11.8 Vol % (12.0-20.0); BLOOD GAS PCO2 42 mmHg (38-42); BLOOD GAS PO2 70 mmHg (61-120); BLOOD GAS TOTAL HGB 9.2 G/DL (12.0-16.0); CRITICAL VALUE NO; OXYGEN DEVICE BiPAP; TEMP CORR TO 98.6
[2016-08-01 05:41] LABS: DRAW SITE RT RADIAL; FIO2 40 %; NUMBER OF ARTERIAL PUNCTURES 1; STAT NO; ULNAR PULSE PRESENT; VENT SETTINGS IPAP12/EPAP5
[2016-08-01] MEDS: hydrALAZINE HCL 50 MG TAB PO SCH ×3 (06:00→20:55)
[2016-08-01] MEDS: cloNIDine HCL 0.1 MG TAB PO SCH ×3 (06:00→20:55)
[2016-08-01] MEDS: BUMETANIDE INJ 1 MG/4 ML VIAL IV PUSH SCH ×3 (06:00→17:21)
[2016-08-01] MEDS: CHLORHEXIDINE 0.12% (ORAL KIT) 15 ML CUP MT SCH ×3 (07:34→20:00)
[2016-08-01] MEDS: SENNOSIDES 8.6 MG TAB PO SCH ×2 (07:35→20:56)
[2016-08-01] MEDS: CARVEDILOL 12.5 MG TAB PO SCH ×2 (07:35→20:56)
[2016-08-01] MEDS: LISINOPRIL 20 MG TAB PO SCH (07:35)
[2016-08-01] MEDS: ASPIRIN 81 MG CHEW TAB PO SCH (07:35)
[2016-08-01] MEDS: FERROUS SULFATE 300 MG /5ML UDC PO SCH ×2 (07:35→20:56)
[2016-08-01] MEDS: SODIUM CHLORIDE 0.9% FLUSH 5 ML FLUSH IVF SCH ×3 (07:35→20:56)
[2016-08-01] MEDS: GABAPENTIN 300 MG CAP PO SCH ×2 (07:35→20:56)
[2016-08-01] MEDS: DOCUSATE SODIUM 100 MG CAP PO SCH ×2 (07:35→20:56)
[2016-08-01] MEDS: POTASSIUM CHLORIDE 20 MEQ PWD PACKET TUBE SCH ×2 (07:36→20:55)
--- NOTE | 2016-08-01 07:48 | HHI.CCPN ---
Subjective Remarks/Hospital Course 07/18: 50 y/o female with a history of chf, depression, htn, dm, and ckd presented to the ED on 07/15 with complaints of dyspnea, swelling in her lower extremities and a 50lb weight gain since last admission 06/03/16. Patient had gained 50 lbs in fluid from last admission. She presented with increased shortness of breath with intermittent chest pressure with no radiation or associated symptoms. She was admitted on 05/31/16 and diagnosed with CHF, discharged home on on Bumex. Patient states she recently ran out of meds and has not followed up with a doctor due to transportation issues. She is not from here and her pcp is 2 hours away and she does not want her kids to take off work to take her to appointments. She is hoping to move back in 2 weeks or so. She states she tried to call a acrobatic rigger to follow up but they required her records and she did not get them. Despite taking Bumex she states she has not had an increase in urination. Last admission 2d echo showed systolic dysfunction with EF 50%, she was seen by DR. Choudhury, and DR. Medley. Patient was admitted by hospitalist service. She was evaluated by Dr. Choudhury from cardiology who offered cardiac catheterization as patient did have an elevated troponin and previous abnormal stress test however she was concerned regarding ending up on hemodialysis so she refused. Patient was reportedly on nasal cannula earlier today however around 1:30 PM was noted to be lethargic and minimally responsive. Stroke alert was called. Head CT was negative for bleed. Recent had an ABG done which revealed pH of 7.0/PCO2 87/PO2 49. Critical care service was contacted by Dr. Mckeon. Both myself and Dr. Ott arrived at bedside. Patient was encephalopathic though arousable with painful stimuli occasional morning however not following commands. Her fingerstick glucose was in the 140s earlier. Decision was made to proceed with endotracheal intubation which was performed by Dr. Goff. A stat MRI brain was ordered to evaluate for CVA after discussion with Dr. Estes. 07/19: Awakens easily off sedation following commands this morning. On mechanical ventilation. MRI brain done yesterday did not show any acute event. 07/20 Patient was extubated yesterday went to IR for vascath placement and had resp arrest she was subsequently reintubated. Now sedated with Diprivan. Afebrile. MRI brain showed no evidence of acute infract. 07/21 Patient s/p extubation yesterday was given racemic Decadron 4mg IV x1 and racemic epi for ? stridor overnight placed on BIPAP 03/20 with 40% FIO2. ABG on BIPAP shows improvements in her resp acidosis with PH 7.30 and CO2: 48 from 57. Now of BIPAP and is on 6L oxygen. 07/22 No acute events overnight. Patient is on 4L oxygen with good sats. Afebrile. renal function improving with Cr: 3.22 and UO: 2850ml in 24 hrs 07/23 - CODE BLUE call today secondary to unresponsiveness. According to RN, patient received [place] at 5 PM. Not seen. Upon evaluation by RN patient was not breathing on nasal cannula. Received 1 mg of epinephrine and one ampule sodium bicarbonate. Intubated with 8.0 ET tube. ROSC after around 10 minutes. Transferred ISC. Occasionally taking large breaths otherwise unresponsive on the ventilator 07/24: Remains orally intubated on mechanical ventilation. Has not required any sedation since arrival to the ICU, remains encephalopathic/comatose. 07/25: Remains orally intubated on mechanical ventilation. Remains encephalopathic. Started on propofol for vent synchrony last night. Neurology following 07/26 Patient remains intubated, off Diprivan this morning placed on CPAP with PS 10, PEEP:5 and FIO2 40%. Afebrile. 07/27: Afebrile. Following commands with upper extremity according to overnight RN. Currently opens eyes and withdrawals to pain in bilateral upper extremities. Upper toes bilateral lower extremities. No bowel movement 24 hours. Tolerating tube feeds with Nepro at 40 cc an hour. Attempted to self extubated yesterday. 07/28: The patient is responsive and following commands, tolerated CPAP trials for 16 hours yesterday. Increasing amounts of antihypertensive medication the patient continues on Cleviprex 6 mg/hour, Clonidine dosage increased 0.2 q 8hr. will continue on CPAP trials today. 07/29: Tmax 99.3. The patient tolerated CPAP trials for approximately 8 hours yesterday. Less dosage of PRN antihypertensive medications noted will begin to wean Cleviprex. 07/30: The patient continues to fail CPAP trials secondary to agitation. Infusion change to Precedex. Overnight the patient urine output increased significantly to 100 cc/hr. 07/31: Tolerating PSV trials. Will extubate and hope we can keep her in the bed or chair. 08/01: Extubated 24 hours ago, requiring BiPAP. Intermittently vomiting. Hold oral meds, control BP with cardene. May need to place NG tube. Objective Vital Signs Date Time Temp Pulse Resp B/P Pulse Ox O2 Delivery O2 Flow Rate FiO2 08/01/16 07:00 95 Bi-Pap 08/01/16 06:00 75 08/01/16 04:31 40 08/01/16 04:00 100.3 22 139/65 07/31/16 19:33 4.00 Intake and Output 07/31/16 07/31/16 08/01/16 08:00 16:00 00:00 Intake Total 866 ml 1069 ml 445 ml Output Total 800 ml 775 ml 250 ml Balance 66 ml 294 ml 195 ml Result Diagram: 07/31/16 0530 08/01/16 0450 Other Results Laboratory Tests Test 07/31/16 08/01/16 15:40 05:28 Blood Gas Puncture Site RT RADIAL RT RADIAL Blood Gas Patient Temperature 98.6 98.6 Blood Gas HCO3 23 mmol/L 22 mmol/L (22-26) (22-26) Blood Gas Base Excess -2.4 mmol/L -3.2 mmol/L (-2-2) (-2-2) Blood Gas Oxygen Saturation 79 % (90-100) 91 % (90-100) Arterial Blood pH 7.32 7.33 (7.380-7.420) (7.380-7.420) Arterial Blood Partial 45 mmHg (38-42) 42 mmHg (38-42) Pressure CO2 Arterial Blood Partial 52 mmHg 70 mmHg Pressure O2 (61-120) (61-120) Arterial Blood Oxygen Content 11.8 Vol % 11.8 Vol % (12.0-20.0) (12.0-20.0) Arterial Blood 1.3 % (0-4) 1.5 % (0-4) Carboxyhemoglobin Arterial Blood Methemoglobin 1.3 % (0-2) 1.1 % (0-2) Blood Gas Hemoglobin 10.6 G/DL 9.2 G/DL (12.0-16.0) (12.0-16.0) Oxygen Delivery Device NASAL CANNULA BiPAP Blood Gas Liter Flow 4 L/M Blood Gas Ventilator Setting IPAP12/EPAP5 Blood Gas Inspired Oxygen 40 % Imaging Last Impressions Chest X-Ray 07/30/16 0600 Signed Impressions: Service Date/Time: Saturday, July 30, 2016 04:21 - CONCLUSION: 1. Cardiomegaly and findings of congestive heart failure. The findings are improved when compared with the prior exam. Emre Daniel MD Brain MRI 07/25/16 0000 Signed Impressions: Service Date/Time: July 17:05 - CONCLUSION: 1. No acute hemorrhage, mass or infarction. 2. Scattered foci of increased signal noted most consistent with chronic small vessel ischemic change. This is not significantly changed. 3. Fluid and high signal is now noted in the mastoid air cells bilaterally consistent with mastoiditis. Grady Hale MD Head CT 07/23/16 0000 Signed Impressions: Service Date/Time: Saturday, July 23, 2016 20:54 - CONCLUSION: Normal examination for a patient of this age. No significant change has occurred. George Choi MD Consultation 07/19/16 0000 Signed Impressions: Service Date/Time: Tuesday, July 19, 2016 00:00 - CONCLUSION: Procedure not performed secondary to cardiopulmonary arrest. Emre Daniel MD Abdomen X-Ray 07/18/16 0000 Signed Impressions: Service Date/Time: July 15:39 - CONCLUSION: No evidence of obstruction. No MRI incompatible foreign body is identified. Eliezer Shay MD Last Impressions Chest X-Ray 07/27/16 0000 Signed Impressions: Service Date/Time: Wednesday, July 27, 2016 04:08 - CONCLUSION: Worsening bibasilar consolidation and effusions. Adolfo Roman MD Brain MRI 07/25/16 0000 Signed Impressions: Service Date/Time: July 17:05 - CONCLUSION: 1. No acute hemorrhage, mass or infarction. 2. Scattered foci of increased signal noted most consistent with chronic small vessel ischemic change. This is not significantly changed. 3. Fluid and high signal is now noted in the mastoid air cells bilaterally consistent with mastoiditis. Grady Hale MD Head CT 07/23/16 Signed Impressions: Service Date/Time: Saturday, July 23, 2016 20:54 - CONCLUSION: Normal examination for a patient of this age. No significant change has occurred. George Choi MD Consultation 07/19/16 Signed Impressions: Service Date/Time: Tuesday, July 19, 2016 00:00 - CONCLUSION: Procedure not performed secondary to cardiopulmonary arrest. Emre Daniel MD Abdomen X-Ray 07/18/16 Signed Impressions: Service Date/Time: July 15:39 - CONCLUSION: No evidence of obstruction. No MRI incompatible foreign body is identified. Eliezer Shay MD Objective Remarks GENERAL: 50-year-old female, lethargic. SKIN: Warm and dry. Right thigh with open vesicle lesion draining/covered with Mepilex HEAD: Normocephalic. EYES: PERRL 2 mm bilaterally, reactive NECK: Supple, trachea midline. Unable to assess JVD. Left IJ clean dry and intact with chlorhexidine covering CARDIOVASCULAR: RRR. S1, S2. Without murmur RESPIRATORY: Decreased BS bases. Breath sounds equal bilaterally. Few mobile secretions. GASTROINTESTINAL: Abdomen soft, obese. Active bowel sounds, large but not distended MUSCULOSKELETAL: B/L edema, upper and lower extremities. Neuro: Conversant, follows commands, Oriented to place, people. Date of Insertion: Jul 23, 2016 Line: Central Venous Catheter Side: Left Location: Internal, Jugular A/P Assessment and Plan Neuro/Psych: Toxic metabolic encephalopathy/history CO2 retention History of depression Peripheral neuropathy Anxiety Change to Precedex for vent synchrony as needed. Daily sedation vacation. Neuro is following peripherally- Dr. Estes Acetaminophen for temp >101.0 Baby aspirin 81 mg for now will be continued Holding Elavil 50 mill grams by mouth daily at bedtime in light of altered mental status. Continue gabapentin 300 mg daily for neuropathy (home med). Holding Xanax 0.25 mill grams by mouth twice a day for anxiety. 07/25 MRI brain: No acute hemorrhage, mass or infarction. Scattered foci of increased signal noted most consistent with chronic small vessel ischemic change. Mastoiditis. 07/18 MRI brain: White matter hyperintensities prominent for age indicating possible demyelinating disorder. No evidence of acute infarct. 07/18 CT brain: No acute infarct 07/19 EEG: Mild- mod encephalopathy CV: Hypertension CHF - diastolic Non-STEMI Echocardiogram 05/21 revealed EF 50%. Mildly dilated ventricle. Diffuse hypokinesis. Echocardiogram 07/23 reveals EF 45-50%. No regional motion abnormality. POOL 59 mmHg. Mild TR. On Coreg 25mg BID, hydralazine 50mg TID, lisinopril 20 daily, nifedipine 20 mg Q8 Increase hydralazine to 100 mg 3 times a day(07/27). Received when necessary overnight including IV hydralazine and clonidine Home medications Norvasc 10 mg daily, hydralazine 50 3 times a day, Coreg 25 twice a day Continue atorvastatin 80 mg daily's for dyslipidemia. Continued Bumex increased to 2 mg IV twice a day for diuresis , only 500 cc UOP over the last 12 hours Followed by cardiology. They believe troponin likely due to fluid overloaded state, HTN episode, CKD... previous stress test showing mild small lateral wall defect, offered diagnostic cath with a plan for staged intervention if needed Will discontinue Cleviprex infusion currently at 2mg, attempts to wean off have been unsuccessful, will change to nicardipine Place NG tube for oral meds. Resp: Acute hypoxemic respiratory failure ACV 18/550//40 Continue with vent support keep sat >92% Ventilator bundle Bronchodilator therapy every 4 hours and as needed Continue CPAP trials today Chest x-ray 07/27 revealed increasing bilateral lower lobe pulmonary edema/ effusion. Follow-up chest x-ray Multiple intubations, multiple attempts at weaning will discuss with possible tracheostomy -Extubated 07/31. GI: Continue tube feeds- On Nepro@40ml/hr advance to goal rate, minimal residual Protonix for GI prophylaxis. Pepcid 40 mg daily at home Colace/ Senokot twice daily for bowel regimen 1 dose of MiraLAX and mineral oil, large BM today will add PRN suppository, and continue Miralax Endo: Diabetes mellitus Sliding-scale insulin with Accu checks every 6 hours to maintain euglycemia. 0 units sliding-scale insulin past 24 hours On Lantus 40 units at night at home. Along with lispro 12 units twice a day and glipizide 2.5 mg daily. Blood glucose levels still elevated, will increase sliding scale regimen Renal: Acute on chronic kidney injury Nephrotic syndrome Followed by nephrology. No indication for current hemodialysis On Bumex to 1 mg IV BID -> increased to 2 mg twice a day Monitor renal function, I/O's, avoid nephrotoxins. Heme: Anemia/microcytic Currently on iron sulfate 325mg PO twice a day/home medication. Monitor CBC. Transfuse for hemoglobin less than 7 ID: MRSA pneumonia Pertinent cultures 07/20 - sputum - MRSA Blood culture 07/24 and 07/25-NGTD Continue abx per ID (zyvox) monitor for signs of infections ( Fever, WBC) FEN: Hypokalemia-resolved Electrolyte replacement per ICU protocol Replace today 07/31 MSK: Morbid obesity Osteoporosis Holding Drisdol 50,000 units every Friday. Weight loss encouraged Access - Left IJ CVL day 7, change. Prophylaxis - GI - Protonix - DVT - SCD/heparin Overall impression: Numerous chronic cardiopulmonary problems requiring frequent admissions and intubations. It may come to trach yet. Trial extubation 07/31 - stable on BiPAP.. Carlos Narayanan MD Aug 01, 2016 07:48
[2016-08-01] MEDS: PANTOPRAZOLE SODIUM 40 MG VIAL IV SCH (08:36)
[2016-08-01] MEDS: ALBUMIN HUMAN 25% 25 GM/100 ML BAGP IV SCH ×2 (08:36→17:21)
[2016-08-01] MEDS: HEPARIN SODIUM - SQ 10,000 UNITS/ML VIAL SQ SCH ×2 (08:37→21:03)
[2016-08-01] MEDS: LINEZOLID 600 MG PREMIX 300 ML IV SCH ×2 (08:37→21:04)
[2016-08-01] MEDS: MUPIROCIN 2% OINT 1 APPLIC/GM SYR EACH NARE SCH ×2 (08:38→20:53)
[2016-08-01 09:50] LABS: BLOOD GAS BASE EXCESS -3.7 mmol/L (-2-2); BLOOD GAS CARBOXYHEMOGLOBIN 1.4 % (0-4); BLOOD GAS HCO3 22 mmol/L (22-26); BLOOD GAS METHEMOGLOBIN 1.1 % (0-2); BLOOD GAS O2 HGB SATURATION 92 % (90-100); BLOOD GAS OXYGEN CONTENT 11.5 Vol % (12.0-20.0); BLOOD GAS PCO2 44 mmHg (38-42); BLOOD GAS PO2 79 mmHg (61-120); BLOOD GAS TOTAL HGB 8.8 G/DL (12.0-16.0); CRITICAL VALUE NO; OXYGEN DEVICE BIPAP; TEMP CORR TO 98.6
[2016-08-01 09:51] LABS: DRAW SITE RT RADIAL; FIO2 40 %; NUMBER OF ARTERIAL PUNCTURES 1; STAT NO; ULNAR PULSE PRESENT; VENT SETTINGS IPAP12/EPAP5
--- NOTE | 2016-08-01 13:04 | HHI.NPPN ---
Subjective History of Present Illness 50 year old with CKD 4/5 Diabetes Nephrotic range proteinuria Additional Remarks Patient had to use BiPAP, N/V on Cardene , alert, following verbal commands. Review of Systems General Constitutional: Fatigue Cardiovascular Cardiac: Edema Objective Data Data 07/31/16 08/01/16 19:00 07:00 Intake Total 1069 ml 1043 ml Output Total 775 ml 400 ml Balance 294 ml 643 ml IV Total 1069 ml 1043 ml Output Urine Total 775 ml 400 ml # Bowel Movements 0 Vital Signs Date Time Temp Pulse Resp B/P Pulse Ox O2 Delivery O2 Flow Rate FiO2 08/01/16 10:00 76 08/01/16 09:15 95 Bi-Pap 08/01/16 08:59 100 40 08/01/16 08:58 99 BiPAP 40 08/01/16 08:45 91 Nasal Cannula 5.00 08/01/16 08:00 76 08/01/16 08:00 99.2 77 24 145/69 97 08/01/16 07:00 95 Bi-Pap 08/01/16 06:00 75 08/01/16 04:31 96 40 08/01/16 04:00 74 08/01/16 04:00 100.3 74 22 139/65 96 08/01/16 02:00 76 08/01/16 01:11 95 40 08/01/16 00:00 99.7 78 14 132/61 95 08/01/16 00:00 78 07/31/16 22:55 94 40 07/31/16 22:00 82 07/31/16 20:00 80 07/31/16 20:00 99.6 80 27 152/72 91 07/31/16 19:33 94 Nasal Cannula 4.00 07/31/16 19:00 91 Nasal Cannula 5.00 07/31/16 18:00 79 07/31/16 16:00 98.5 81 26 142/78 92 07/31/16 16:00 81 07/31/16 14:00 84 -: 07/31/16 0530 08/01/16 0450 Physical Exam General Appearance: Obese Throat Throat Exam: Oral Mucosa [place] & Moist Neck Neck Exam: Neck Supple Pulmonary Resp Exam: Rhonchi, Decreased Bases, Diminished Breath Sounds Cardiology CV Exam: Regular, Normal Sinus Rhythm Gastrointestinal/Abdomen GI Exam: Soft, Non-Tender, Distended Extremeties Extremities Exam: Pitting Edema, Dependent Edema Neurologic Neuro Exam: Sedated Assessment/Plan Problem List: (1) Stage 4 chronic kidney disease Plan: Patient with advanced kidney disease and had the workup in May. including MATEUS/SPEP Neg Nephrotic proteinuria 10 grams. Urine out put increased, Most likely has advance Diabetic Nephropathy. Urine out put is good, on Bumex. UOP 1.9 L she has Hypoventilation syndrome/Pickwickian syndrome continue with Bumex 2 mg q 6 hrs for more diuresis K low replace (2) Hypoventilation associated with obesity syndrome Plan: critical care following (3) Nephrotic syndrome Plan: Protein to creatinine ratio above 10 10.52 (4) Acute exacerbation of CHF (congestive heart failure) Plan: This is likely due to chronic kidney disease and diastolic dysfunction (5) Diabetes Plan: Advance manifestations diabetic nephropathy, retinopathy and neuropathy (6) HTN (hypertension) Plan: Continue to monitor on Cardene Problem Qualifiers (1) Acute exacerbation of CHF (congestive heart failure): Qualified Code: I50.9 - Acute on chronic congestive heart failure, unspecified congestive heart failure type (2) Diabetes: (3) HTN (hypertension): Qualified Code: I10 - Essential hypertension Ebony Garcia MD Aug 01, 2016 13:04
[2016-08-01] MEDS ORDERED: POTASSIUM CHLORIDE INJ 30 MEQ in SODIUM CHLORIDE 0.9% INJ 100 ML IV-CENTRAL ONE (15:00)
[2016-08-01] MEDS: POTASSIUM CHLOR 10 MEQ PREMIX 100 ML IV SCH ×2 (15:07→15:08)
--- NOTE | 2016-08-01 17:55 | HHI.PR ---
Review/Management Daily Summary doing better, intubated diprivan held this am and pt started following commands, moves all 4 limbs very mildly on request she gazes to right and left I don't think she had a neurologic event, will fiollow with an EEG as well otherwise prn neuro 07/24 10 minute code last evening after norco remains poorly responsive, some gaze preference to right ??right hemiparesis, ct negative eeg looks metabolic diffuse per dr Vazquez will monitor and plan on doing mri barin in am 07/25 seen shortly after mri brain which is negative for acute dx agitated when sedation held pupils equals and reactive eeg encephalopatic yesterday, tracing seen continue supportive medical care 07/29 when off sedation she follows commands per rn she withdrew to somatosensory stim now but sedated will monitor neuro 08/01 awake and conversant, hoarseness, family at bedside visual reynoso full gen weakness but starts raising legs, able to fully raise arms doing well neuro matute, aggressive medical care in course mobility is a major issue due to her size and weakness will follow prn Subjective Subjective Comments No acute events reported No headache No seizure Active Medications Current Medications Medications (Trade) Dose Ordered Sig/Christa Route Start Time Stop Time Status Last Admin (Narcan Inj) 0.4 mg UNSCH PRN IV 07/15/16 20:45 (Elavil) 50 mg HS PO 07/16/16 21:00 Hold 07/21/16 19:33 (Lipitor) 80 mg HS PO 07/16/16 21:00 07/30/16 20:56 (Coreg) 25 mg BID PO 07/16/16 09:00 07/31/16 08:13 (Albumin 25% Inj) 25 gm BID@, IV 07/16/16 17:00 08/01/16 17:21 (Prinivil) 20 mg DAILY PO 07/17/16 09:00 07/31/16 08:13 ([place] 5-325 Mg) 1 tab Q6H PRN PO 07/16/16 23:30 07/30/16 15:41 (Zofran Inj) 4 mg Q6HR PRN IV PUSH 07/18/16 06:00 07/31/16 14:17 (NS Flush) 2 ml UNSCH PRN IVF 07/18/16 13:45 (NS Flush) 2 ml BID IVF 07/18/16 21:00 08/01/16 07:35 (Protonix Inj) 40 mg DAILY IV 07/19/16 09:00 08/01/16 08:36 Miscellaneous Information 1 Q361D XX 07/18/16 13:45 07/18/16 13:45 (Chlorhexidine 2% Cloth) Taper DAILY@04 TOP 07/19/16 04:00 07/15/17 03:59 07/31/16 04:00 (Chlorhexidine 2% Cloth) 3 pack UNSCH PRN TOP 07/18/16 13:45 (Heparin Inj) 5,000 units Q12HR SQ 07/20/16 21:00 08/01/16 08:37 (D50w (Vial) Inj) 25 ml UNSCH PRN IV PUSH 07/20/16 09:45 (Glucagon Inj) 1 mg UNSCH PRN OTHER 07/20/16 09:45 (NovoLIN R SUPPLEMENTAL SCALE) 1 Q6H SQ 07/20/16 11:00 07/31/16 06:43 (Trandate Inj) 10 mg Q4H PRN IV PUSH 07/22/16 04:45 07/26/16 14:03 (Apresoline Inj) 10 mg Q4H PRN IV PUSH 07/22/16 05:30 07/30/16 11:58 (Mycostatin Powder) 1 applic Q12HR PRN TOPICAL 07/22/16 16:00 (Procardia) 20 mg Q8HR PO 07/23/16 14:00 Hold 07/30/16 13:40 Chlorhexidine Gluconate 15 ml 15 ml BID@08,20 MT 07/23/16 20:00 07/30/16 20:00 (Diprivan 1000 Mg/100ml Inj) 100 ml @ 0 mls/hr TITRATE IV 07/23/16 19:30 Hold 07/30/16 06:54 (Bactroban Nasal 2% Oint) Taper BID EACH NARE 07/23/16 21:00 07/19/17 20:59 08/01/16 08:38 (NS Flush) DAILY IVF 07/23/16 20:00 08/01/16 07:35 IV Flush UNSCH PRN IVF 07/23/16 20:00 (Zyvox 600 Mg Premix) 300 ml @ 300 mls/hr Q12HR IV 07/24/16 11:00 08/01/16 08:37 (Nitroglycerin 2% Oint) 2 inch Q6H PRN TOPICAL 07/25/16 04:15 07/30/16 15:55 (Colace) 100 mg BID PO 07/27/16 09:00 07/31/16 08:13 (Senokot) 8.6 mg Q12HR PO 07/27/16 09:00 07/31/16 08:13 (Catapres) 0.2 mg Q8HR PO 07/27/16 22:00 07/31/16 13:09 (Apresoline) 100 mg Q8HR PO 07/29/16 14:00 07/31/16 13:09 (Ferrous Sulfate Liq) 300 mg BID PO 07/29/16 12:00 07/31/16 08:13 (Aspirin Chew) 81 mg DAILY PO 07/29/16 12:00 07/31/16 08:15 (Bumex Inj) 2 mg Q6HR IV PUSH 07/30/16 00:00 08/01/16 17:21 (KCl Powder) 40 meq Q12HR TUBE 07/30/16 21:00 07/31/16 08:13 Gabapentin 300 mg 300 mg BID PO 07/30/16 21:00 07/31/16 08:13 Nicardipine HCl 25 mg/Sodium Chloride 260 ml @ 0 mls/hr TITRATE IV 07/30/16 17:30 08/01/16 17:21 (Precedex Inj/NS 250 ml Inj) 250 ml @ 0 mls/hr TITRATE IV 07/30/16 22:25 07/31/16 09:12 (Phenergan Inj) 25 mg Q6H PRN IM 07/31/16 17:45 Allergies Allergies Coded Allergies Lyrica (Verified Allergy, Severe, Anaphylaxis, 07/15/16) *MDRO Multi-Drug Resistant Organism (Verified Adverse Reaction, Unknown, ) Exam I&O / VS 07/31/16 07/31/16 08/01/16 15:00 23:00 07:00 Intake Total 1069 ml 445 ml 598 ml Output Total 775 ml 250 ml 150 ml Balance 294 ml 195 ml 448 ml IV Total 1069 ml 445 ml 598 ml Output Urine Total 775 ml 250 ml 150 ml # Bowel Movements 0 0 Vital Signs Date Time Temp Pulse Resp B/P Pulse Ox O2 Delivery O2 Flow Rate FiO2 08/01/16 16:13 92 Nasal Cannula 4.00 08/01/16 16:00 98.0 82 19 166/82 94 08/01/16 16:00 82 08/01/16 14:00 84 08/01/16 12:00 76 08/01/16 12:00 98.9 76 17 154/74 95 08/01/16 10:00 76 08/01/16 09:15 95 Bi-Pap 08/01/16 08:59 100 40 08/01/16 08:58 99 BiPAP 40 08/01/16 08:45 91 Nasal Cannula 5.00 08/01/16 08:00 76 08/01/16 08:00 99.2 77 24 145/69 97 08/01/16 07:00 95 Bi-Pap 08/01/16 06:00 75 08/01/16 04:31 96 40 08/01/16 04:00 74 08/01/16 04:00 100.3 74 22 139/65 96 08/01/16 02:00 76 08/01/16 01:11 95 40 08/01/16 00:00 99.7 78 14 132/61 95 08/01/16 00:00 78 07/31/16 22:55 94 40 07/31/16 22:00 82 07/31/16 20:00 80 07/31/16 20:00 99.6 80 27 152/72 91 07/31/16 19:33 94 Nasal Cannula 4.00 07/31/16 19:00 91 Nasal Cannula 5.00 07/31/16 18:00 79 Objective Micro and Labs Laboratory Tests Test 08/01/16 08/01/16 08/01/16 04:50 05:28 09:42 Sodium Level 143 Potassium Level 3.4 Chloride Level 108 Carbon Dioxide Level 23.9 Anion Gap 11 Blood Urea Nitrogen 39 Creatinine 2.83 Estimat Glomerular Filtration 18 Rate Random Glucose 134 Calcium Level 8.4 Blood Gas Puncture Site RT RADIAL RT RADIAL Blood Gas Patient Temperature 98.6 98.6 Blood Gas HCO3 22 22 Blood Gas Base Excess -3.2 -3.7 Blood Gas Oxygen Saturation 91 92 Arterial Blood pH 7.33 7.31 Arterial Blood Partial 42 44 Pressure CO2 Arterial Blood Partial 70 79 Pressure O2 Arterial Blood Oxygen Content 11.8 11.5 Arterial Blood 1.5 1.4 Carboxyhemoglobin Arterial Blood Methemoglobin 1.1 1.1 Blood Gas Hemoglobin 9.2 8.8 Oxygen Delivery Device BiPAP BIPAP Blood Gas Ventilator Setting IPAP12/EPAP5 IPAP12/EPAP5 Blood Gas Inspired Oxygen 40 40 Chip Estes MD Aug 01, 2016 17:55
--- NOTE | 2016-08-01 19:58 | HHI.PR ---
Subjective Remarks Extubated . On O2 4 L.Talking well. Used Bipap last nite. Good output. Objective Vital Signs Date Time Temp Pulse Resp B/P Pulse Ox O2 Delivery O2 Flow Rate FiO2 08/01/16 18:00 85 08/01/16 16:13 92 Nasal Cannula 4.00 08/01/16 16:00 98.0 82 19 166/82 94 08/01/16 16:00 82 08/01/16 14:00 84 08/01/16 12:00 76 08/01/16 12:00 98.9 76 17 154/74 95 08/01/16 10:00 76 08/01/16 09:15 95 Bi-Pap 08/01/16 08:59 100 40 08/01/16 08:58 99 BiPAP 40 08/01/16 08:45 91 Nasal Cannula 5.00 08/01/16 08:00 76 08/01/16 08:00 99.2 77 24 145/69 97 08/01/16 07:00 95 Bi-Pap 08/01/16 06:00 75 08/01/16 04:31 96 40 08/01/16 04:00 74 08/01/16 04:00 100.3 74 22 139/65 96 08/01/16 02:00 76 08/01/16 01:11 95 40 08/01/16 00:00 99.7 78 14 132/61 95 08/01/16 00:00 78 07/31/16 22:55 94 40 07/31/16 22:00 82 07/31/16 20:00 80 07/31/16 20:00 99.6 80 27 152/72 91 I/O 07/31/16 07/31/16 07/31/16 08/01/16 08/01/16 08/01/16 07:00 15:00 23:00 07:00 15:00 23:00 Intake Total 866 ml 1069 ml 445 ml 598 ml 700 ml Output Total 800 ml 775 ml 250 ml 150 ml 325 ml Balance 66 ml 294 ml 195 ml 448 ml 375 ml IV Total 604 ml 1069 ml 445 ml 598 ml 600 ml Tube Feeding 262 ml Albumin 100 ml Output Urine Total 800 ml 775 ml 250 ml 150 ml 325 ml # Bowel Movements 0 0 0 1 Result Diagram: 07/31/16 0530 08/01/16 0450 Objective Remarks General: This is a very obese middle-aged lady alert HEENT: Head normocephalic. Pupils are reactive and equal. Tongue is moist. Throat is clear. Nasal mucosa clear Neck: Supple. No lymphadenopathy. No venous distension . Trachea midline. Chest: Distant breath sounds with occ wheezes bilaterally, prolonged expirations, Heart: The heart sounds are irregular. S1 and S2. No definite murmur. No S3. Abdomen: Soft, protuberant. No mass, no organomegaly or tenderness. Bowel sounds are active. Extremities: Decreased peripheral pulses. 2+ leg edema. Neurologic: responsive. Cranial nerves not tested. Rectal: Exam deferred. Skin: Scaly, dry and warm. Assessment and Plan Assessment and Plan . IMPRESSION 1. CHF with acute exacerbation. 2. Possible obstructive sleep apnea syndrome. 3. Hypertension. 4. Elevated troponin. 5. Diabetes mellitus type 2. 6. S/P respiratory Arrest. Plan : 1. Wean O2 to 3 L. 2. Cont Bipap at HS 12/5 , FIo2 30 % 3. Nebs qid , duoneb. 4. Labs in am. 5. No sedation. 6. IS at bedside qid. 7. Cont Antibiotics. 8. PT evaluation Sheela Lau MD Aug 01, 2016 19:58
[2016-08-01] MEDS: ATORVASTATIN 80 MG TAB PO SCH (20:56)
[2016-08-02] VITALS (13 sets, daily range): BP systolic 137–165; BP diastolic 65–99; PULSE 67–82; RESP 10–25; TEMP 97.7–98.8; O2SAT 92–97
[2016-08-02] MEDS: BUMETANIDE INJ 1 MG/4 ML VIAL IV PUSH SCH ×4 (01:00→21:56)
[2016-08-02] MEDS: PROMETHAZINE INJ 25 MG/ML VIAL IM PRN ×2 (01:00→13:17)
[2016-08-02] MEDS: niCARdipine INJ 25 MG in SODIUM CHLOR 0.9% 250 ML INJ 250 ML IV SCH ×5 (01:00→14:52)
[2016-08-02] MEDS: CHLORHEXIDINE GLUCONATE 2 % 1 PACK (2 CLOTHS) TOP SCH ×2 (04:00→19:51)
[2016-08-02 04:53] LABS: AUTOMATED NEUTROPHIL # 6.1 TH/MM3 (1.8-7.7); BASOPHIL # 0.1 TH/MM3 (0-0.2); BASOPHIL % 0.7 % (0.0-2.0); EOSINOPHIL # 0.2 TH/MM3 (0-0.4); EOSINOPHIL % 2.8 % (0.0-4.0); HEMATOCRIT 30.5 % (35.0-46.0); LYMPH % 9.8 % (9.0-44.0); LYMPHOCYTE # 0.8 TH/MM3 (1.0-4.8); MEAN CELL VOLUME 72.3 FL (80.0-100.0); MEAN CORPUSCULAR HEMOGLOBIN 22.1 PG (27.0-34.0); MEAN CORPUSCULAR HGB CONC 30.6 % (32.0-36.0); MONO % 10.4 % (0.0-8.0); NEUT % 76.3 % (16.0-70.0); PLATELET COUNT 144 TH/MM3 (150-450); RED BLOOD COUNT 4.22 MIL/MM3 (4.00-5.30)
[2016-08-02 04:55] LABS: HEMO FLAGS AUTO DIFF
[2016-08-02] MEDS: INSULIN NovoLIN REGULAR SUPPLEMENTAL SCALE SQ SCH ×4 (05:00→23:00)
[2016-08-02 05:04] LABS: BICARBONATE 20.8 MEQ/L (21.0-32.0); MAGNESIUM 1.7 MG/DL (1.5-2.5); POTASSIUM 3.8 MEQ/L (3.5-5.1)
[2016-08-02 05:29] LABS: OVALOCYTES 1+ (NORMAL); SCAN/DIFF AUTO DIFF CONFIRMED
[2016-08-02] MEDS: cloNIDine HCL 0.1 MG TAB PO SCH ×3 (06:00→21:59)
[2016-08-02] MEDS: hydrALAZINE HCL 50 MG TAB PO SCH ×3 (06:00→21:59)
[2016-08-02] MEDS: CHLORHEXIDINE 0.12% (ORAL KIT) 15 ML CUP MT SCH ×2 (07:46→19:50)
[2016-08-02] MEDS: ALBUMIN HUMAN 25% 25 GM/100 ML BAGP IV SCH ×2 (07:46→17:24)
[2016-08-02] MEDS: hydrALAZINE HCL 20 MG/ML VIAL IV PUSH PRN ×2 (07:50→14:51)
[2016-08-02] MEDS: MUPIROCIN 2% OINT 1 APPLIC/GM SYR EACH NARE SCH ×2 (08:12→19:50)
[2016-08-02] MEDS: SODIUM CHLORIDE 0.9% FLUSH 5 ML FLUSH IVF SCH ×3 (08:12→19:52)
[2016-08-02] MEDS: PANTOPRAZOLE SODIUM 40 MG VIAL IV SCH (08:12)
[2016-08-02] MEDS: LINEZOLID 600 MG PREMIX 300 ML IV SCH (08:12)
[2016-08-02] MEDS: HEPARIN SODIUM - SQ 10,000 UNITS/ML VIAL SQ SCH ×2 (08:13→21:58)
[2016-08-02] MEDS: SENNOSIDES 8.6 MG TAB PO SCH ×2 (09:00→21:58)
[2016-08-02] MEDS: FERROUS SULFATE 300 MG /5ML UDC PO SCH ×2 (09:00→21:57)
[2016-08-02] MEDS: DOCUSATE SODIUM 100 MG CAP PO SCH ×2 (09:00→21:56)
[2016-08-02] MEDS: GABAPENTIN 300 MG CAP PO SCH ×2 (09:08→21:57)
[2016-08-02] MEDS: LISINOPRIL 20 MG TAB PO SCH (09:08)
[2016-08-02] MEDS: CARVEDILOL 12.5 MG TAB PO SCH ×2 (09:08→21:56)
[2016-08-02] MEDS: ASPIRIN 81 MG CHEW TAB PO SCH (09:08)
[2016-08-02] MEDS: POTASSIUM CHLORIDE 20 MEQ PWD PACKET TUBE SCH ×2 (09:09→21:58)
--- NOTE | 2016-08-02 13:03 | HHI.NPPN ---
Subjective History of Present Illness 50 year old with CKD 4/5 Diabetes Nephrotic range proteinuria Additional Remarks Patient had to use BiPAP, N/V on Cardene , alert, following verbal commands. Review of Systems General Constitutional: Fatigue Cardiovascular Cardiac: Edema Objective Data Data 08/01/16 08/02/16 19:00 07:00 Intake Total 700 ml 1526 ml Output Total 325 ml 800 ml Balance 375 ml 726 ml IV Total 600 ml 1526 ml Albumin 100 ml Output Urine Total 325 ml 800 ml # Bowel Movements 1 0 Vital Signs Date Time Temp Pulse Resp B/P Pulse Ox O2 Delivery O2 Flow Rate FiO2 08/02/16 10:00 67 08/02/16 08:00 98.7 82 25 152/99 93 08/02/16 08:00 80 08/02/16 07:00 94 Venturi Mask 6.00 50 08/02/16 04:00 98.2 82 16 165/82 94 08/02/16 00:04 92 Venturi Mask 6.00 50 08/02/16 00:00 97.8 80 10 148/68 92 08/01/16 22:00 82 08/01/16 21:36 94 40 08/01/16 20:16 92 4.00 08/01/16 20:00 97.9 86 19 164/90 93 08/01/16 20:00 93 Nasal Cannula 5.00 08/01/16 20:00 86 08/01/16 18:00 85 08/01/16 16:13 92 Nasal Cannula 4.00 08/01/16 16:00 98.0 82 19 166/82 94 08/01/16 16:00 82 08/01/16 14:00 84 -: 08/02/16 0310 08/02/16 0310 Physical Exam General Appearance: Obese Throat Throat Exam: Oral Mucosa [place] & Moist Neck Neck Exam: Neck Supple Pulmonary Resp Exam: Rhonchi, Decreased Bases, Diminished Breath Sounds Cardiology CV Exam: Regular, Normal Sinus Rhythm Gastrointestinal/Abdomen GI Exam: Soft, Non-Tender, Distended Extremeties Extremities Exam: Pitting Edema, Dependent Edema Neurologic Neuro Exam: Sedated Assessment/Plan Problem List: (1) Stage 4 chronic kidney disease Plan: Patient with advanced kidney disease and had the workup in May. including MATEUS/SPEP Neg Nephrotic proteinuria 10 grams. Urine out put increased, Most likely has advance Diabetic Nephropathy. Urine out put is good, on Bumex. UOP 1.1 L currently + she has Hypoventilation syndrome/Pickwickian syndrome continue with Bumex 2 mg change to q 8 hrs as cr higher K replaced (2) Hypoventilation associated with obesity syndrome Plan: critical care following (3) Nephrotic syndrome Plan: Protein to creatinine ratio above 10 10.52 (4) Acute exacerbation of CHF (congestive heart failure) Plan: This is likely due to chronic kidney disease and diastolic dysfunction (5) Diabetes Plan: Advance manifestations diabetic nephropathy, retinopathy and neuropathy (6) HTN (hypertension) Plan: Continue to monitor on Cardene Problem Qualifiers (1) Acute exacerbation of CHF (congestive heart failure): Qualified Code: I50.9 - Acute on chronic congestive heart failure, unspecified congestive heart failure type (2) Diabetes: (3) HTN (hypertension): Qualified Code: I10 - Essential hypertension Ebony Garcia MD Aug 02, 2016 13:03
[2016-08-02] MEDS: ACETAMINOPHEN/HYDROcodone 325 MG/5 MG TAB PO PRN (13:17)
--- NOTE | 2016-08-02 13:49 | PD.TRANSFR ---
Transfer Summary Admission Date Jul 15, 2016 at 20:42 Transfer Date: Aug 03, 2016 Admitting Diagnosis acute on chronic CHF exacerbation Diagnoses: (1) Acute exacerbation of CHF (congestive heart failure) Diagnosis: Principal (2) Stage 4 chronic kidney disease Diagnosis: Principal (3) Elevated troponin Diagnosis: Secondary (4) HTN (hypertension) Diagnosis: Secondary (5) Diabetes Diagnosis: Secondary Transfer Summary/Subjective Obese woman with chronic heart failure and CKD required intubation for combined respiratory failure. Extubated 2 days ago and tolerating FM ventilation and prn BiPAP hs. Renal service following. Objective Vital Signs Date Time Temp Pulse Resp B/P Pulse Ox O2 Delivery O2 Flow Rate FiO2 08/02/16 12:00 77 08/02/16 08:00 98.7 25 152/99 93 08/02/16 07:00 Venturi Mask 6.00 50 Intake and Output 08/01/16 08/01/16 08/02/16 08:00 16:00 00:00 Intake Total 598 ml 700 ml 417 ml Output Total 150 ml 325 ml 500 ml Balance 448 ml 375 ml -83 ml Result Diagram: 08/02/16 0310 08/02/16 0310 Imaging Last Impressions Chest X-Ray 07/30/16 0600 Signed Impressions: Service Date/Time: Saturday, July 30, 2016 04:21 - CONCLUSION: 1. Cardiomegaly and findings of congestive heart failure. The findings are improved when compared with the prior exam. Emre Dnaiel MD Brain MRI 07/25/16 0000 Signed Impressions: Service Date/Time: July 17:05 - CONCLUSION: 1. No acute hemorrhage, mass or infarction. 2. Scattered foci of increased signal noted most consistent with chronic small vessel ischemic change. This is not significantly changed. 3. Fluid and high signal is now noted in the mastoid air cells bilaterally consistent with mastoiditis. Grady Hale MD Head CT 07/23/16 0000 Signed Impressions: Service Date/Time: Saturday, July 23, 2016 20:54 - CONCLUSION: Normal examination for a patient of this age. No significant change has occurred. George Choi MD Consultation 07/19/16 0000 Signed Impressions: Service Date/Time: Tuesday, July 19, 2016 00:00 - CONCLUSION: Procedure not performed secondary to cardiopulmonary arrest. Emre Daniel MD Abdomen X-Ray 07/18/16 Signed Impressions: Service Date/Time: July 15:39 - CONCLUSION: No evidence of obstruction. No MRI incompatible foreign body is identified. Eliezer Shay MD Last Impressions Chest X-Ray 07/27/16 Signed Impressions: Service Date/Time: Wednesday, July 27, 2016 04:08 - CONCLUSION: Worsening bibasilar consolidation and effusions. Adolof Roman MD Brain MRI 07/25/16 0000 Signed Impressions: Service Date/Time: July 17:05 - CONCLUSION: 1. No acute hemorrhage, mass or infarction. 2. Scattered foci of increased signal noted most consistent with chronic small vessel ischemic change. This is not significantly changed. 3. Fluid and high signal is now noted in the mastoid air cells bilaterally consistent with mastoiditis. Grady Hale MD Head CT 07/23/16 Signed Impressions: Service Date/Time: Saturday, July 23, 2016 20:54 - CONCLUSION: Normal examination for a patient of this age. No significant change has occurred. George Choi MD Consultation 07/19/16 Signed Impressions: Service Date/Time: Tuesday, July 19, 2016 00:00 - CONCLUSION: Procedure not performed secondary to cardiopulmonary arrest. Emre Daniel MD Abdomen X-Ray 07/18/16 Signed Impressions: Service Date/Time: July 15:39 - CONCLUSION: No evidence of obstruction. No MRI incompatible foreign body is identified. Eliezer Shay MD Objective Remarks GENERAL: 50-year-old female, lethargic. SKIN: Warm and dry. Right thigh with open vesicle lesion draining/covered with Mepilex HEAD: Normocephalic. EYES: PERRL 2 mm bilaterally, reactive NECK: Supple, trachea midline. Unable to assess JVD. Left IJ clean dry and intact with chlorhexidine covering CARDIOVASCULAR: RRR. S1, S2. Without murmur RESPIRATORY: Decreased BS bases. Breath sounds equal bilaterally. Few mobile secretions. GASTROINTESTINAL: Abdomen soft, obese. Active bowel sounds, large but not distended MUSCULOSKELETAL: B/L edema, upper and lower extremities. Neuro: Conversant, follows commands, Oriented to place, people. Date of Insertion: Jul 23, 2016 Line: Central Venous Catheter Side: Left Location: Internal, Jugular A/P Assessment and Plan Neuro/Psych: Toxic metabolic encephalopathy/history CO2 retention History of depression Peripheral neuropathy Anxiety Change to Precedex for vent synchrony as needed. Daily sedation vacation. Neuro is following peripherally- Dr. Estes Acetaminophen for temp >101.0 Baby aspirin 81 mg for now will be continued Holding Elavil 50 mill grams by mouth daily at bedtime in light of altered mental status. Continue gabapentin 300 mg daily for neuropathy (home med). Holding Xanax 0.25 mill grams by mouth twice a day for anxiety. 07/25 MRI brain: No acute hemorrhage, mass or infarction. Scattered foci of increased signal noted most consistent with chronic small vessel ischemic change. Mastoiditis. 07/18 MRI brain: White matter hyperintensities prominent for age indicating possible demyelinating disorder. No evidence of acute infarct. 07/18 CT brain: No acute infarct 07/19 EEG: Mild- mod encephalopathy CV: Hypertension CHF - diastolic Non-STEMI Echocardiogram 05/21 revealed EF 50%. Mildly dilated ventricle. Diffuse hypokinesis. Echocardiogram 07/23 reveals EF 45-50%. No regional motion abnormality. POOL 59 mmHg. Mild TR. On Coreg 25mg BID, hydralazine 50mg TID, lisinopril 20 daily, nifedipine 20 mg Q8 Increase hydralazine to 100 mg 3 times a day(07/27). Received when necessary overnight including IV hydralazine and clonidine Home medications Norvasc 10 mg daily, hydralazine 50 3 times a day, Coreg 25 twice a day Continue atorvastatin 80 mg daily's for dyslipidemia. Continued Bumex increased to 2 mg IV twice a day for diuresis , only 500 cc UOP over the last 12 hours Followed by cardiology. They believe troponin likely due to fluid overloaded state, HTN episode, CKD... previous stress test showing mild small lateral wall defect, offered diagnostic cath with a plan for staged intervention if needed Will discontinue Cleviprex infusion currently at 2mg, attempts to wean off have been unsuccessful, will change to nicardipine Place NG tube for oral meds. Resp: Acute hypoxemic respiratory failure ACV 18/550/5/40 Continue with vent support keep sat >92% Ventilator bundle Bronchodilator therapy every 4 hours and as needed Continue CPAP trials today Chest x-ray 07/27 revealed increasing bilateral lower lobe pulmonary edema/ effusion. Follow-up chest x-ray Multiple intubations, multiple attempts at weaning will discuss with possible tracheostomy -Extubated 07/31. GI: Continue tube feeds- On Nepro@40ml/hr advance to goal rate, minimal residual Protonix for GI prophylaxis. Pepcid 40 mg daily at home Colace/ Senokot twice daily for bowel regimen 1 dose of MiraLAX and mineral oil, large BM today will add PRN suppository, and continue Miralax Endo: Diabetes mellitus Sliding-scale insulin with Accu checks every 6 hours to maintain euglycemia. 0 units sliding-scale insulin past 24 hours On Lantus 40 units at night at home. Along with lispro 12 units twice a day and glipizide 2.5 mg daily. Blood glucose levels still elevated, will increase sliding scale regimen Renal: Acute on chronic kidney injury Nephrotic syndrome Followed by nephrology. No indication for current hemodialysis On Bumex to 1 mg IV BID -> increased to 2 mg twice a day Monitor renal function, I/O's, avoid nephrotoxins. Heme: Anemia/microcytic Currently on iron sulfate 325mg PO twice a day/home medication. Monitor CBC. Transfuse for hemoglobin less than 7 ID: MRSA pneumonia Pertinent cultures 07/20 - sputum - MRSA Blood culture 07/24 and 07/25-NGTD Continue abx per ID (zyvox) monitor for signs of infections ( Fever, WBC) FEN: Hypokalemia-resolved Electrolyte replacement per ICU protocol Replace today 07/31 MSK: Morbid obesity Osteoporosis Holding Drisdol 50,000 units every Friday. Weight loss encouraged Access - Left IJ CVL day 7, change. Prophylaxis - GI - Protonix - DVT - SCD/heparin Overall impression: Numerous chronic cardiopulmonary problems requiring frequent admissions and intubations. It may come to trach yet. Trial extubation 07/31 - stable on BiPAP.. Carlos Narayanan MD Aug 02, 2016 13:49
--- NOTE | 2016-08-02 16:54 | HHI.IDPN ---
Subjective Subjective Remarks Notes reviewed Temps ok On Fm and at times NC Has used BIPAP Denies SOB BP ok Antibiotics Zyvox Lines LIJ TLC Past Medical History CHF last echo 08/01/15 EF 50% Depression HTN DM Neuropathy Anemia CKD Past Surgical History Cardiac Cath 2015 Allergies: Coded Allergies: Lyrica (Verified Allergy, Severe, Anaphylaxis, 07/15/16) *MDRO Multi-Drug Resistant Organism (Verified Adverse Reaction, Unknown, ) MRSA (sputum)-07/20/16 MRSA PCR Screen POSITIVE - 07/18/2016 Objective . Vital Signs Date Time Temp Pulse Resp B/P Pulse Ox O2 Delivery O2 Flow Rate FiO2 08/02/16 16:05 94 Venturi Mask 6.00 50 08/02/16 16:00 98.7 74 14 142/67 97 08/02/16 16:00 74 08/02/16 14:17 15 08/02/16 14:00 78 08/02/16 12:00 98.8 72 16 137/65 93 08/02/16 12:00 77 08/02/16 10:00 67 08/02/16 08:00 98.7 82 25 152/99 93 08/02/16 08:00 80 08/02/16 07:00 94 Venturi Mask 6.00 50 08/02/16 04:00 98.2 82 16 165/82 94 08/02/16 00:04 92 Venturi Mask 6.00 50 08/02/16 00:00 97.8 80 10 148/68 92 08/01/16 22:00 82 08/01/16 21:36 94 40 08/01/16 20:16 92 4.00 08/01/16 20:00 97.9 86 19 164/90 93 08/01/16 20:00 93 Nasal Cannula 5.00 08/01/16 20:00 86 08/01/16 18:00 85 08/01/16 08/01/16 08/02/16 15:00 23:00 07:00 Intake Total 700 ml 417 ml 1109 ml Output Total 325 ml 500 ml 300 ml Balance 375 ml -83 ml 809 ml IV Total 600 ml 417 ml 1109 ml Albumin 100 ml Output Urine Total 325 ml 500 ml 300 ml # Bowel Movements 1 0 0 . Laboratory Tests Test 08/02/16 03:10 White Blood Count 8.0 TH/MM3 Red Blood Count 4.22 MIL/MM3 Hemoglobin 9.3 GM/DL Hematocrit 30.5 % Mean Corpuscular Volume 72.3 FL Mean Corpuscular Hemoglobin 22.1 PG Mean Corpuscular Hemoglobin 30.6 % Concent Red Cell Distribution Width 19.0 % Platelet Count 144 TH/MM3 Mean Platelet Volume 10.0 FL Neutrophils (%) (Auto) 76.3 % Lymphocytes (%) (Auto) 9.8 % Monocytes (%) (Auto) 10.4 % Eosinophils (%) (Auto) 2.8 % Basophils (%) (Auto) 0.7 % Neutrophils # (Auto) 6.1 TH/MM3 Lymphocytes # (Auto) 0.8 TH/MM3 Monocytes # (Auto) 0.8 TH/MM3 Eosinophils # (Auto) 0.2 TH/MM3 Basophils # (Auto) 0.1 TH/MM3 CBC Comment AUTO DIFF Differential Comment AUTO DIFF CONFIRMED Ovalocytes 1+ Laboratory Tests Test 08/01/16 08/02/16 04:50 03:10 Sodium Level 143 MEQ/L 142 MEQ/L Potassium Level 3.4 MEQ/L 3.8 MEQ/L Chloride Level 108 MEQ/L 110 MEQ/L Carbon Dioxide Level 23.9 MEQ/L 20.8 MEQ/L Anion Gap 11 MEQ/L 11 MEQ/L Blood Urea Nitrogen 39 MG/DL 42 MG/DL Creatinine 2.83 MG/DL 3.04 MG/DL Estimat Glomerular Filtration 18 ML/MIN 16 ML/MIN Rate Random Glucose 134 MG/DL 101 MG/DL Calcium Level 8.4 MG/DL 8.6 MG/DL Phosphorus Level 4.4 MG/DL Magnesium Level 1.7 MG/DL Imaging Chest X-Ray 07/29/16 0000 Signed Impressions: Service Date/Time: Friday, July 29, 2016 06:31 - CONCLUSION: 1. Cardiomegaly and findings of congestive heart failure. There has been no significant change when compared to the prior exam. Emre Daniel MD Chest X-Ray 07/28/16 0600 Signed Impressions: Service Date/Time: Thursday, July 28, 2016 04:44 - CONCLUSION: No significant change. Adolfo Roman MD Chest X-Ray 07/27/16 0000 Signed Impressions: Service Date/Time: Wednesday, July 27, 2016 04:08 - CONCLUSION: Worsening bibasilar consolidation and effusions. Adolfo Roman MD Chest X-Ray 07/26/16 0600 Signed Impressions: Service Date/Time: Tuesday, July 26, 2016 04:54 - CONCLUSION: Slightly improved bibasilar consolidation and small effusions. Adolfo Roman MD Brain MRI 07/25/16 0000 Signed Impressions: Service Date/Time: July 17:05 - CONCLUSION: 1. No acute hemorrhage, mass or infarction. 2. Scattered foci of increased signal noted most consistent with chronic small vessel ischemic change. This is not significantly changed. 3. Fluid and high signal is now noted in the mastoid air cells bilaterally consistent with mastoiditis. Grady Hale MD Chest X-Ray 07/23/161999 Signed Impressions: Service Date/Time: Saturday, July 23, 2016 20:11 - CONCLUSION: 1. Left IJ line tip in superior vena cava without pneumothorax. George Choi MD Head CT 07/23/16 Signed Impressions: Service Date/Time: Saturday, July 23, 2016 20:54 - CONCLUSION: Normal examination for a patient of this age. No significant change has occurred. George Choi MD Consultation 07/19/16 Signed Impressions: Service Date/Time: Tuesday, July 19, 2016 00:00 - CONCLUSION: Procedure not performed secondary to cardiopulmonary arrest. Emre Daniel MD Brain MRI 07/18/16 Signed Impressions: Service Date/Time: July 17:15 - CONCLUSION: White matter hyperintensities prominent for age indicating possible demyelinating disorder. No evidence of acute infarct. Eliezer Shay MD Abdomen X-Ray 07/18/16 Signed Impressions: Service Date/Time: July 15:39 - CONCLUSION: No evidence of obstruction. No MRI incompatible foreign body is identified. Eliezer Shay MD Physical Exam GENERAL: Awake and responding, NAD SKIN: Cool skin, dry, no generalized rash. HEENT: [place] conjunctivae. No scleral icterus. Has moist oral mucosa. NECK: Supple, not tender. Left IJ central line in place with no evidence of infection. CARDIOVASCULAR: Regular rate and rhythm without murmurs, gallops, or rubs. RESPIRATORY: Coarse breath sounds bilaterally, and equal. Decreased breath sounds at the bases. GASTROINTESTINAL: Abdomen soft, obese, nondistended, not tender. Bowel sounds are present and normoactive. No guarding. MUSCULOSKELETAL: Extremities without clubbing, cyanosis. Has improving edema both hands. NEUROLOGICAL: Awake and alert, grossly non-focal : Calderon catheter in place, looks clear LINE: Left IJ central line with no evidence of infection. PIV with no evidence of infection Assessment & Plan Remarks IMPRESSION Bilateral infiltrates, due to pulmonary edema, now with HCAP - C/S with MRSA Recurrent arrest felt to be due to primary respiratory event Respiratory failure , recurrent post arrest - extubated / Possibly has PALMER CHF Obesity CKD (+) UA RECOMMENDATION Stop Zyvox Monitor progress Monitor once off Abx Monitor respiratory status Polina Flores MD Aug 02, 2016 16:54
--- NOTE | 2016-08-02 20:29 | HHI.PR ---
Subjective Remarks Better today. On O2 4 L.Talking well. Used Bipap last nite. able to Cough up secretions Objective Vital Signs Date Time Temp Pulse Resp B/P Pulse Ox O2 Delivery O2 Flow Rate FiO2 08/02/16 18:00 74 08/02/16 16:05 94 Venturi Mask 6.00 50 08/02/16 16:00 98.7 74 14 142/67 97 08/02/16 16:00 74 08/02/16 14:17 15 08/02/16 14:00 78 08/02/16 12:00 98.8 72 16 137/65 93 08/02/16 12:00 77 08/02/16 10:00 67 08/02/16 08:00 98.7 82 25 152/99 93 08/02/16 08:00 80 08/02/16 07:00 94 Venturi Mask 6.00 50 08/02/16 04:00 98.2 82 16 165/82 94 08/02/16 00:04 92 Venturi Mask 6.00 50 08/02/16 00:00 97.8 80 10 148/68 92 08/01/16 22:00 82 08/01/16 21:36 94 40 I/O 08/01/16 08/01/16 08/01/16 08/02/16 08/02/16 08/02/16 07:00 15:00 23:00 07:00 15:00 23:00 Intake Total 598 ml 700 ml 417 ml 1109 ml 1555 ml Output Total 150 ml 325 ml 500 ml 300 ml 100 ml Balance 448 ml 375 ml -83 ml 809 ml 1455 ml Intake Oral 420 ml IV Total 598 ml 600 ml 417 ml 1109 ml 323 ml Albumin 100 ml Other 812 ml Output Urine Total 150 ml 325 ml 500 ml 300 ml 100 ml # Bowel Movements 0 1 0 0 0 Result Diagram: 08/02/1630908/02/16309 Objective Remarks General: This is a very obese middle-aged lady who is alert. HEENT: Head normocephalic. Pupils are reactive. Tongue is moist. Throat is clear. Nasal mucosa clear Neck: Supple. No lymphadenopathy. No venous distension . Trachea midline. Chest: Distant breath sounds with wheezes bilaterally, prolonged expirations, occ crackles at the lung bases. Heart: The heart sounds are irregular. S1 and S2. No definite murmur. No S3. Abdomen: Soft, protuberant. No mass, no organomegaly or tenderness. Bowel sounds are active. Extremities: Decreased peripheral pulses. 1+ leg edema. Neurologic: responsive. Cranial nerves not tested. Rectal: Exam deferred. Skin: Scaly, dry and warm. Assessment and Plan Assessment and Plan . IMPRESSION 1. CHF with acute exacerbation. 2. Possible obstructive sleep apnea syndrome. 3. Hypertension. 4. Elevated troponin. 5. Diabetes mellitus type 2. 6. S/P respiratory Arrest. Plan : 1. Wean O2 to 4 L. 2. Cont Bipap at HS 12/5 , FIo2 30 % 3. Nebs qid , duoneb. 4. CXR in am. 5. Add prednisone 10 mg bid 6. IS at bedside qid. 7. Cont Antibiotics. 8. PT evaluation Sheela Lau MD Aug 02, 2016 20:29
[2016-08-02] MEDS: ATORVASTATIN 80 MG TAB PO SCH (21:57)
[2016-08-03] VITALS (16 sets, daily range): BP systolic 111–175; BP diastolic 63–78; PULSE 74–88; RESP 12–22; TEMP 97.6–98.7; O2SAT 94–98
[2016-08-03] MEDS: predniSONE 10 MG TAB PO SCH ×3 (00:31→23:44)
[2016-08-03] MEDS: hydrALAZINE HCL 20 MG/ML VIAL IV PUSH PRN ×2 (03:45→10:46)
[2016-08-03 04:00] LABS: AUTOMATED NEUTROPHIL # 5.8 TH/MM3 (1.8-7.7); BASOPHIL % 0.6 % (0.0-2.0); EOSINOPHIL # 0.2 TH/MM3 (0-0.4); EOSINOPHIL % 2.8 % (0.0-4.0); HEMATOCRIT 29.4 % (35.0-46.0); LYMPH % 9.2 % (9.0-44.0); LYMPHOCYTE # 0.7 TH/MM3 (1.0-4.8); MEAN CELL VOLUME 72.7 FL (80.0-100.0); MEAN CORPUSCULAR HEMOGLOBIN 22.3 PG (27.0-34.0); MEAN CORPUSCULAR HGB CONC 30.7 % (32.0-36.0); MONO % 9.9 % (0.0-8.0); NEUT % 77.5 % (16.0-70.0); PLATELET COUNT 128 TH/MM3 (150-450); RED BLOOD COUNT 4.05 MIL/MM3 (4.00-5.30); RED CELL DISTRIBUTION WIDTH 19.2 % (11.6-17.2); WHITE BLOOD COUNT 7.5 TH/MM3 (4.0-11.0)
[2016-08-03 04:19] LABS: HEMO FLAGS AUTO DIFF
[2016-08-03 04:28] LABS: BICARBONATE 20.3 MEQ/L (21.0-32.0); POTASSIUM 4.1 MEQ/L (3.5-5.1)
[2016-08-03] MEDS: BUMETANIDE INJ 1 MG/4 ML VIAL IV PUSH SCH ×2 (04:51→11:49)
[2016-08-03] MEDS: INSULIN NovoLIN REGULAR SUPPLEMENTAL SCALE SQ SCH ×4 (05:00→23:00)
[2016-08-03] MEDS: hydrALAZINE HCL 50 MG TAB PO SCH ×3 (05:48→23:47)
[2016-08-03] MEDS: cloNIDine HCL 0.1 MG TAB PO SCH ×3 (05:49→23:47)
[2016-08-03 06:00] LABS: OVALOCYTES 1+ (NORMAL); PLATELET ESTIMATE SMEAR LOW (NORMAL); PLATELET MORPHOLOGY NORMAL (NORMAL); SCAN/DIFF AUTO DIFF CONFIRMED
[2016-08-03] MEDS: ALBUMIN HUMAN 25% 25 GM/100 ML BAGP IV SCH ×2 (07:30→16:56)
[2016-08-03] MEDS: CHLORHEXIDINE 0.12% (ORAL KIT) 15 ML CUP MT SCH ×2 (07:30→20:00)
[2016-08-03] MEDS: LABETALOL HCL 100 MG/20 ML VIAL IV PUSH PRN ×2 (07:46→13:12)
[2016-08-03] MEDS: FERROUS SULFATE 300 MG /5ML UDC PO SCH ×2 (08:12→23:44)
[2016-08-03] MEDS: ASPIRIN 81 MG CHEW TAB PO SCH (08:12)
[2016-08-03] MEDS: PANTOPRAZOLE SODIUM 40 MG VIAL IV SCH (08:12)
[2016-08-03] MEDS: MUPIROCIN 2% OINT 1 APPLIC/GM SYR EACH NARE SCH ×2 (08:13→21:00)
[2016-08-03] MEDS: DOCUSATE SODIUM 100 MG CAP PO SCH ×2 (08:13→23:43)
[2016-08-03] MEDS: LISINOPRIL 20 MG TAB PO SCH (08:13)
[2016-08-03] MEDS: SENNOSIDES 8.6 MG TAB PO SCH ×2 (08:13→21:00)
[2016-08-03] MEDS: GABAPENTIN 300 MG CAP PO SCH ×2 (08:13→23:45)
[2016-08-03] MEDS: SODIUM CHLORIDE 0.9% FLUSH 5 ML FLUSH IVF SCH ×3 (08:13→21:00)
[2016-08-03] MEDS: CARVEDILOL 12.5 MG TAB PO SCH ×2 (08:13→23:43)
[2016-08-03] MEDS: HEPARIN SODIUM - SQ 10,000 UNITS/ML VIAL SQ SCH ×2 (08:14→23:46)
[2016-08-03] MEDS: POTASSIUM CHLORIDE 20 MEQ PWD PACKET TUBE SCH ×2 (08:14→23:47)
[2016-08-03] MEDS: ACETAMINOPHEN/HYDROcodone 325 MG/5 MG TAB PO PRN ×2 (13:11→17:33)
--- NOTE | 2016-08-03 13:30 | HHI.NPPN ---
Subjective History of Present Illness 50 year old with CKD 4/5 Diabetes Nephrotic range proteinuria Additional Remarks Patient had to use BiPAP, on Cardene , alert, following verbal commands. Review of Systems General Constitutional: Fatigue Cardiovascular Cardiac: Edema Objective Data Data 08/02/16 08/03/16 19:00 07:00 Intake Total 1555 ml 780 ml Output Total 100 ml 200 ml Balance 1455 ml 580 ml Intake Oral 420 ml 580 ml IV Total 323 ml 200 ml Other 812 ml Output Urine Total 100 ml 200 ml Stool Total 0 ml # Bowel Movements 0 Vital Signs Date Time Temp Pulse Resp B/P Pulse Ox O2 Delivery O2 Flow Rate FiO2 08/03/16 10:11 95 Nasal Cannula 6.00 08/03/16 07:00 98 Nasal Cannula 6.00 50 08/03/16 06:00 79 08/03/16 04:00 98.7 88 22 175/76 94 08/03/16 04:00 84 08/03/16 02:00 77 08/03/16 00:00 75 08/03/16 00:00 97.6 75 15 154/71 98 08/02/16 22:00 78 08/02/16 20:42 94 Nasal Cannula 6.00 08/02/16 20:00 97.7 77 16 151/78 95 08/02/16 20:00 77 08/02/16 19:00 97 Nasal Cannula 6.00 08/02/16 18:00 74 08/02/16 16:05 94 Venturi Mask 6.00 50 08/02/16 16:00 98.7 74 14 142/67 97 08/02/16 16:00 74 08/02/16 14:17 15 08/02/16 14:00 78 -: 08/03/16 0329 08/03/16 0329 Physical Exam General Appearance: Obese Throat Throat Exam: Oral Mucosa [place] & Moist Neck Neck Exam: Neck Supple Pulmonary Resp Exam: Rhonchi, Decreased Bases, Diminished Breath Sounds Cardiology CV Exam: Regular, Normal Sinus Rhythm Gastrointestinal/Abdomen GI Exam: Soft, Non-Tender, Distended Extremeties Extremities Exam: Pitting Edema, Dependent Edema Neurologic Neuro Exam: Sedated Assessment/Plan Problem List: (1) Stage 4 chronic kidney disease Plan: Patient with advanced kidney disease and had the workup in May. 10 g of proteinuria Most likely has advance Diabetic Nephropathy. Urine output dropped overnight and that she is not passing too much urine and renal function are getting worse again She is on albumin every 12 hourly and Bumex every 8 I will change it to Bumex drip at 2 mg per hour to diurese her She has poor urine output and worsening renal functions continued to monitor renal panel (2) Hypoventilation associated with obesity syndrome Plan: critical care following (3) Nephrotic syndrome Plan: Protein to creatinine ratio above 10 10.52 (4) Acute exacerbation of CHF (congestive heart failure) Plan: This is likely due to chronic kidney disease and diastolic dysfunction (5) Diabetes Plan: Advance manifestations diabetic nephropathy, retinopathy and neuropathy (6) HTN (hypertension) Plan: Continue to monitor on Cardene Problem Qualifiers (1) Acute exacerbation of CHF (congestive heart failure): Qualified Code: I50.9 - Acute on chronic congestive heart failure, unspecified congestive heart failure type (2) Diabetes: (3) HTN (hypertension): Qualified Code: I10 - Essential hypertension Ebony Garcia MD Aug 03, 2016 13:30
--- NOTE | 2016-08-03 14:42 | HHI.PR ---
Subjective Remarks Patient is awake. Follows some commands. She has no new complaints. On 5 L nasal cannula. Objective Vitals Vital Signs Date Time Temp Pulse Resp B/P Pulse Ox O2 Delivery O2 Flow Rate FiO2 08/03/16 12:00 74 08/03/16 12:00 98.3 79 22 140/63 97 08/03/16 10:11 95 Nasal Cannula 6.00 08/03/16 10:00 74 08/03/16 08:00 98.2 78 15 145/67 97 08/03/16 08:00 78 08/03/16 07:00 98 Nasal Cannula 6.00 50 08/03/16 06:00 79 08/03/16 04:00 98.7 88 22 175/76 94 08/03/16 04:00 84 08/03/16 02:00 77 08/03/16 00:00 75 08/03/16 00:00 97.6 75 15 154/71 98 08/02/16 22:00 78 08/02/16 20:42 94 Nasal Cannula 6.00 08/02/16 20:00 97.7 77 16 151/78 95 08/02/16 20:00 77 08/02/16 19:00 97 Nasal Cannula 6.00 08/02/16 18:00 74 08/02/16 16:05 94 Venturi Mask 6.00 50 08/02/16 16:00 98.7 74 14 142/67 97 08/02/16 16:00 74 I/O 08/02/16 08/02/16 08/02/16 08/03/16 08/03/16 08/03/16 07:00 15:00 23:00 07:00 15:00 23:00 Intake Total 1109 ml 1555 ml 580 ml 200 ml Output Total 300 ml 100 ml 100 ml 100 ml Balance 809 ml 1455 ml 480 ml 100 ml Intake Oral 420 ml 460 ml 120 ml IV Total 1109 ml 323 ml 120 ml 80 ml Other 812 ml Output Urine Total 300 ml 100 ml 100 ml 100 ml Stool Total 0 ml 0 ml # Bowel Movements 0 0 Result Diagram: 08/03/1632808/03/16328 Objective Remarks GENERAL: Morbidly obese female, on 5 L NC. CARDIOVASCULAR: Normal rate and regular rhythm without murmurs, gallops, or rubs. RESPIRATORY: Some diffuse rhonchi. Otherwise diminished breath sounds bilaterally at the bases. No wheezing. GASTROINTESTINAL: Abdomen soft, non-tender, non-distended. Normal active bowel sounds MUSCULOSKELETAL: Extremities without cyanosis, or edema. NEURO: Alert & Oriented. Moves all ext x4. Normal speech. Follow commands. PSYCH: Appropriate mood and affect. Date of Insertion: Jul 23, 2016 Line: Central Venous Catheter Side: Left Location: Internal, Jugular A/P Problem List: (1) Acute exacerbation of CHF (congestive heart failure) ICD Code: I50.9 Status: Acute (2) Stage 4 chronic kidney disease ICD Code: N18.4 Status: Acute (3) Elevated troponin ICD Code: R79.89 Status: Acute (4) HTN (hypertension) ICD Code: I10 Status: Chronic (5) Diabetes ICD Code: E11.9 Status: Chronic Assessment and Plan 50 y/o female with a medical history significant for history of CHF, depression , HTN, dm, and ckd with prolonged hospital stay secondary to recurrent intubation, status post cardiac arrest. Patient currently still in the ICU. Acute respiratory failure: Likely a combination of kidney disease, diastolic heart failure, possible COPD, HCAP with MRSA in the sputum. Patient has been intubated about 3 times during this hospitalization. Currently on BiPAP as needed. Nasal cannula 5 L/min - Appreciate pulmonology following. On prednisone 10 mg 3 times a day. bipap per Pulmonology - Infectious disease following. Status post Rocephin and Zyvox. Antibiotics discontinued. Monitor patient off antibiotic. - Currently on 5 L nasal cannula. Patient is still at risk for further respiratory decompensation. Patient is at risk for further respiratory decompensation. Acute on chronic kidney disease: -Appreciate nephrology following. Most likely advanced diabetic nephropathy. Urine output marginal. Patient started on a Bumex drip today per nephrology. Encephalopathy: Secondary to multiple comorbid conditions above. Anoxic injury also possibility. Improving. Following commands. CHF: Echocardiogram 05/21 revealed EF 50%. Mildly dilated ventricle. Diffuse hypokinesis. Echocardiogram 07/23 reveals EF 45-50%. No regional motion abnormality. POOL 59 mmHg. Mild TR. - Continue Coreg, lisinopril. Followed by cardiology. Troponin likely due to fluid overloaded state per Cards. previous stress test showing mild small lateral wall defect, offered diagnostic cath with a plan for staged intervention if needed Hypertension: Resistant, difficult to control. On Coreg 25mg BID, hydralazine 50mg TID, lisinopril 20 daily, nifedipine 20 mg Q8 Continue atorvastatin 80 mg daily's for dyslipidemia. Diabetes mellitus: - Continue sliding scale insulin with Accu-Chek Anemia: Currently on iron sulfate 325mg PO twice a day/home medication. Monitor CBC. Transfuse for hemoglobin less than 7 GI prophylaxis: Stool softener PRN constipation. DVT PPx: SCDs/Heparin Problem Qualifiers (1) Acute exacerbation of CHF (congestive heart failure): Qualified Code: I50.9 - Acute on chronic congestive heart failure, unspecified congestive heart failure type (2) HTN (hypertension): Qualified Code: I10 - Essential hypertension (3) Diabetes: Carey Coombs MD Aug 03, 2016 14:42
[2016-08-03] MEDS: BUMETANIDE INJ 100 ML IV SCH (16:57)
--- NOTE | 2016-08-03 18:27 | HHI.PR ---
Subjective Remarks Better today. On O2 4 L.. Used Bipap at HS On Bumex IV. Good output. Objective Vital Signs Date Time Temp Pulse Resp B/P Pulse Ox O2 Delivery O2 Flow Rate FiO2 08/03/16 16:05 94 Venturi Mask 6.00 50 08/03/16 16:00 98.4 76 17 111/64 94 08/03/16 16:00 76 08/03/16 14:11 20 08/03/16 14:00 79 08/03/16 12:00 74 08/03/16 12:00 98.3 79 22 140/63 97 08/03/16 10:11 95 Nasal Cannula 6.00 08/03/16 10:00 74 08/03/16 08:00 98.2 78 15 145/67 97 08/03/16 08:00 78 08/03/16 07:00 98 Nasal Cannula 6.00 50 08/03/16 06:00 79 08/03/16 04:00 98.7 88 22 175/76 94 08/03/16 04:00 84 08/03/16 02:00 77 08/03/16 00:00 75 08/03/16 00:00 97.6 75 15 154/71 98 08/02/16 22:00 78 08/02/16 20:42 94 Nasal Cannula 6.00 08/02/16 20:00 97.7 77 16 151/78 95 08/02/16 20:00 77 08/02/16 19:00 97 Nasal Cannula 6.00 I/O 08/02/16 08/02/16 08/02/16 08/03/16 08/03/16 08/03/16 07:00 15:00 23:00 07:00 15:00 23:00 Intake Total 1109 ml 1555 ml 580 ml 200 ml 492 ml Output Total 300 ml 100 ml 100 ml 100 ml 50 ml Balance 809 ml 1455 ml 480 ml 100 ml 442 ml Intake Oral 420 ml 460 ml 120 ml 400 ml IV Total 1109 ml 323 ml 120 ml 80 ml 92 ml Other 812 ml Output Urine Total 300 ml 100 ml 100 ml 100 ml 50 ml Stool Total 0 ml 0 ml # Bowel Movements 0 0 0 Result Diagram: 08/03/1632808/03/16328 Objective Remarks General: This is a very obese middle-aged lady who is alert. HEENT: Head normocephalic. Pupils are reactive. Tongue is moist. Throat is clear. Nasal mucosa clear Neck: Supple. Mild JVD. No lymphadenopathy. No venous distension . Trachea midline. Chest: Distant breath sounds with wheezes bilaterally, prolonged expirations, occ crackles at the lung bases. Heart: The heart sounds are irregular. S1 and S2. No definite murmur. No S3. Abdomen: Soft, protuberant. No mass, no organomegaly or tenderness. Bowel sounds are active. Extremities: Decreased peripheral pulses. 1+ leg edema. Neurologic: responsive. Cranial nerves not tested. Rectal: Exam deferred. Skin: Scaly, dry and warm. Assessment and Plan Assessment and Plan . IMPRESSION 1. CHF with acute exacerbation. 2. Possible obstructive sleep apnea syndrome. 3. Hypertension. 4. Elevated troponin. 5. Diabetes mellitus type 2. 6. S/P respiratory Arrest. Plan : 1. Wean O2 to 4 L. 2. Cont Bipap at HS 12/5 , FIo2 30 % 3. Nebs qid , duoneb. 4. CXR in am. 5. Add prednisone 10 mg bid 6. IS at bedside qid. 7. Cont diuretics . 8. PT evaluation Sheela Lau MD Aug 03, 2016 18:27
[2016-08-03] MEDS: ATORVASTATIN 80 MG TAB PO SCH (23:44)
[2016-08-03] MEDS: CHLORHEXIDINE GLUCONATE 2 % 1 PACK (2 CLOTHS) TOP SCH (23:48)
[2016-08-04] VITALS (17 sets, daily range): BP systolic 136–175; BP diastolic 69–81; PULSE 73–86; RESP 12–27; TEMP 97.8–98.7; O2SAT 93–97
[2016-08-04 04:49] LABS: HEMATOCRIT 29.3 % (35.0-46.0); MEAN CELL VOLUME 71.4 FL (80.0-100.0); MEAN CORPUSCULAR HEMOGLOBIN 22.1 PG (27.0-34.0); PLATELET COUNT 138 TH/MM3 (150-450); RED CELL DISTRIBUTION WIDTH 19.1 % (11.6-17.2); WHITE BLOOD COUNT 8.5 TH/MM3 (4.0-11.0)
[2016-08-04 04:50] LABS: REVIEW FLAG FINAL
[2016-08-04] MEDS: LABETALOL HCL 100 MG/20 ML VIAL IV PUSH PRN (05:00)
[2016-08-04] MEDS: INSULIN NovoLIN REGULAR SUPPLEMENTAL SCALE SQ SCH ×3 (05:00→18:49)
[2016-08-04 05:16] LABS: BICARBONATE 19.9 MEQ/L (21.0-32.0); POTASSIUM 4.4 MEQ/L (3.5-5.1)
[2016-08-04] MEDS: hydrALAZINE HCL 50 MG TAB PO SCH ×2 (05:46→16:13)
[2016-08-04] MEDS: cloNIDine HCL 0.1 MG TAB PO SCH ×2 (05:46→16:13)
--- NOTE | 2016-08-04 06:00 | RADRPT ---
EXAM DATE/TIME: 08/04/2016 04:20 [facility] COMPARISON: CHEST SINGLE AP, July 30, 2016, 4:21. INDICATIONS : Shortness of breath. MEDICAL HISTORY : Hypertension. Congestive heart failure. Renal failure, chronic. SURGICAL HISTORY : None. ENCOUNTER: Subsequent ACUITY: 3 weeks PAIN SCORE: Non-responsive. LOCATION: Bilateral chest FINDINGS: The cardiac silhouette is enlarged in transverse diameter. There are findings of congestive heart camila lure with interstitial and alveolar opacity bilaterally. There has been no significant change when co mpared to the prior exam. Support lines and tubes have been removed CONCLUSION: 1. Cardiomegaly and findings of congestive heart failure. There has been no significant change when c ompared to the prior exam. Emre Daniel MD on August 04, 2016 at 5:58 Board Certified Radiologist. This report was verified electronically.
[2016-08-04] MEDS: CHLORHEXIDINE 0.12% (ORAL KIT) 15 ML CUP MT SCH ×2 (08:00→20:00)
[2016-08-04] MEDS: POTASSIUM CHLORIDE 20 MEQ PWD PACKET TUBE SCH ×2 (09:00→21:00)
[2016-08-04] MEDS: SODIUM CHLORIDE 0.9% FLUSH 5 ML FLUSH IVF SCH ×3 (09:00→21:00)
[2016-08-04] MEDS: predniSONE 10 MG TAB PO SCH (09:40)
[2016-08-04] MEDS: MUPIROCIN 2% OINT 1 APPLIC/GM SYR EACH NARE SCH ×2 (09:40→21:00)
[2016-08-04] MEDS: ALBUMIN HUMAN 25% 25 GM/100 ML BAGP IV SCH ×2 (09:40→16:14)
[2016-08-04] MEDS: DOCUSATE SODIUM 100 MG CAP PO SCH ×2 (09:40→21:00)
[2016-08-04] MEDS: FERROUS SULFATE 300 MG /5ML UDC PO SCH (09:40)
[2016-08-04] MEDS: CARVEDILOL 12.5 MG TAB PO SCH (09:41)
[2016-08-04] MEDS: SENNOSIDES 8.6 MG TAB PO SCH ×2 (09:41→21:00)
[2016-08-04] MEDS: LISINOPRIL 20 MG TAB PO SCH (09:41)
[2016-08-04] MEDS: GABAPENTIN 300 MG CAP PO SCH (09:41)
[2016-08-04] MEDS: HEPARIN SODIUM - SQ 10,000 UNITS/ML VIAL SQ SCH (09:42)
[2016-08-04] MEDS: ACETAMINOPHEN/HYDROcodone 325 MG/5 MG TAB PO PRN (09:42)
[2016-08-04] MEDS: PANTOPRAZOLE SODIUM 40 MG VIAL IV SCH (09:42)
[2016-08-04] MEDS: ASPIRIN 81 MG CHEW TAB PO SCH (09:44)
[2016-08-04] MEDS: hydrALAZINE HCL 20 MG/ML VIAL IV PUSH PRN (11:04)
--- NOTE | 2016-08-04 14:33 | HHI.PR ---
Subjective Remarks Patient is stable on a nasal canula. Renal functions worse. Chest xray with persistent pulmonary edema. Unchanged. Discussed with RN. Still intermittently confused. Objective Vitals Vital Signs Date Time Temp Pulse Resp B/P Pulse Ox O2 Delivery O2 Flow Rate FiO2 08/04/16 10:00 75 08/04/16 08:00 97.8 81 27 175/81 95 08/04/16 08:00 86 08/04/16 07:00 98 Nasal Cannula 6.00 08/04/16 06:00 82 08/04/16 04:15 168/79 08/04/16 04:00 81 08/04/16 04:00 98.7 81 27 175/81 95 08/04/16 03:50 95 Nasal Cannula 4.00 08/04/16 03:50 95 08/04/16 03:50 95 Nasal Cannula 4.00 08/04/16 02:10 97 35 08/04/16 02:00 76 08/04/16 00:00 98.4 78 12 158/71 97 08/04/16 00:00 78 08/03/16 23:15 97 35 08/03/16 22:59 94 Nasal Cannula 6.00 08/03/16 22:00 76 08/03/16 20:00 77 08/03/16 20:00 98.7 76 12 156/78 96 08/03/16 19:00 98 Nasal Cannula 6.00 50 08/03/16 18:33 14 08/03/16 18:00 83 08/03/16 16:05 94 Venturi Mask 6.00 50 08/03/16 16:00 98.4 76 17 111/64 94 08/03/16 16:00 76 I/O 08/03/16 08/03/16 08/03/16 08/04/16 08/04/16 08/04/16 07:00 15:00 23:00 07:00 15:00 23:00 Intake Total 200 ml 492 ml 150 ml 240 ml Output Total 100 ml 50 ml 26 ml 200 ml Balance 100 ml 442 ml 124 ml 40 ml Intake Oral 120 ml 400 ml 120 ml 120 ml IV Total 80 ml 92 ml 30 ml 120 ml Output Urine Total 100 ml 50 ml 25 ml 200 ml Stool Total 0 ml 1 ml 0 ml # Bowel Movements 0 Result Diagram: 08/04/16 04208/04/16 042 Objective Remarks GENERAL: Morbidly obese female, on 5 L NC. CARDIOVASCULAR: Normal rate and regular rhythm without murmurs, gallops, or rubs. RESPIRATORY: Some diffuse rhonchi. Otherwise diminished breath sounds bilaterally at the bases. No wheezing. GASTROINTESTINAL: Abdomen soft, non-tender, non-distended. Normal active bowel sounds MUSCULOSKELETAL: Extremities without cyanosis, or edema. NEURO: Alert & Oriented. Normal speech. Follow commands. PSYCH: Appropriate mood and affect. Date of Insertion: Jul 23, 2016 Line: Central Venous Catheter Side: Left Location: Internal, Jugular A/P Problem List: (1) Acute exacerbation of CHF (congestive heart failure) ICD Code: I50.9 Status: Acute (2) Stage 4 chronic kidney disease ICD Code: N18.4 Status: Acute (3) Elevated troponin ICD Code: R79.89 Status: Acute (4) HTN (hypertension) ICD Code: I10 Status: Chronic (5) Diabetes ICD Code: E11.9 Status: Chronic Assessment and Plan 50 y/o female with a medical history significant for CHF, depression, HTN, dm, and ckd with prolonged hospital stay secondary to recurrent intubation, status post cardiac arrest. Patient currently still in the ICU. Acute respiratory failure: Likely a combination of kidney disease, diastolic heart failure, pulmonary edema, possible COPD, HCAP with MRSA in the sputum. Patient has been intubated about 3 times during this hospitalization. Currently on BiPAP at night and as needed. Nasal cannula 5 L/min - Appreciate pulmonology following. On prednisone 10 mg 3 times a day. bipap per Pulmonology - Infectious disease following. Status post Rocephin and Zyvox. Antibiotics discontinued. Monitor patient off antibiotic. - Currently on 5 L nasal cannula. Patient is still at risk for further respiratory decompensation. Acute on chronic kidney disease: Worse today. -Appreciate nephrology following. Most likely advanced diabetic nephropathy. Urine output marginal. Patient started on a Bumex drip yesterday. Further plans per nephrology. Encephalopathy: Secondary to multiple comorbid conditions above. Anoxic injury also possibility. Improving. Following commands. CHF: Echocardiogram 05/21 revealed EF 50%. Mildly dilated ventricle. Diffuse hypokinesis. Echocardiogram 07/23 reveals EF 45-50%. No regional motion abnormality. POOL 59 mmHg. Mild TR. - Continue Coreg, lisinopril. Followed by cardiology. Troponin likely due to fluid overloaded state per Cards. previous stress test showing mild small lateral wall defect. Hypertension: Resistant, difficult to control. On Coreg 25mg BID, hydralazine 100mg TID, lisinopril 20 daily, nifedipine 20 mg Q8 Continue atorvastatin 80 mg daily's for dyslipidemia. Diabetes mellitus: - Continue sliding scale insulin with Accu-Chek Anemia: Currently on iron sulfate 325mg PO twice a day/home medication. Monitor CBC. Transfuse for hemoglobin less than 7 GI prophylaxis: Stool softener PRN constipation. DVT PPx: SCDs/Heparin Problem Qualifiers (1) Acute exacerbation of CHF (congestive heart failure): Qualified Code: I50.9 - Acute on chronic congestive heart failure, unspecified congestive heart failure type (2) HTN (hypertension): Qualified Code: I10 - Essential hypertension (3) Diabetes: Carey Coombs MD Aug 04, 2016 14:33
[2016-08-04] MEDS ORDERED: SODIUM CHLOR 0.9% 1000 ML INJ 1,000 ML IV PRN ×2 (15:14)
[2016-08-04] MEDS ORDERED: MANNITOL 12.5 GM/50 ML VIAL IV PRN (15:15)
[2016-08-04] MEDS ORDERED: ACETAMINOPHEN 325 MG TAB PO PRN (15:15)
[2016-08-04] MEDS ORDERED: SODIUM CHLORIDE 0.9% FLUSH 5 ML FLUSH IVF PRN (15:15)
[2016-08-04] MEDS ORDERED: NITROGLYCERIN 0.4 MG SL 25 TABS/BTL SL PRN (15:15)
[2016-08-04] MEDS ORDERED: HEPARIN SODIUM - IV 10,000 UNITS/10 ML VIAL IVF PRN (15:15)
[2016-08-04] MEDS ORDERED: GELATIN 12 MM/7 MM FOAM TOP PRN (15:15)
[2016-08-04] MEDS ORDERED: ONDANSETRON HCL 4 MG/2 ML VIAL IV PRN (15:15)
[2016-08-04] MEDS ORDERED: diphenhydrAMINE HCL 25 MG CAP PO PRN (15:15)
[2016-08-04] MEDS ORDERED: ALBUMIN HUMAN 25% 25 GM/100 ML BAGP IV PRN (15:15)
--- NOTE | 2016-08-04 15:20 | HHI.NPPN ---
Subjective History of Present Illness 50 year old with CKD 4/5 Diabetes Nephrotic range proteinuria Additional Remarks Patient had to use BiPAP, alert, slow to follow verbal commands lethargic Review of Systems General Constitutional: Fatigue Cardiovascular Cardiac: Edema Objective Data Data 08/03/16 08/04/16 19:00 07:00 Intake Total 492 ml 390 ml Output Total 50 ml 226 ml Balance 442 ml 164 ml Intake Oral 400 ml 240 ml IV Total 92 ml 150 ml Output Urine Total 50 ml 225 ml Stool Total 1 ml # Bowel Movements 0 Vital Signs Date Time Temp Pulse Resp B/P Pulse Ox O2 Delivery O2 Flow Rate FiO2 08/04/16 10:00 75 08/04/16 08:00 97.8 81 27 175/81 95 08/04/16 08:00 86 08/04/16 07:00 98 Nasal Cannula 6.00 08/04/16 06:00 82 08/04/16 04:15 168/79 08/04/16 04:00 81 08/04/16 04:00 98.7 81 27 175/81 95 08/04/16 03:50 95 Nasal Cannula 4.00 08/04/16 03:50 95 08/04/16 03:50 95 Nasal Cannula 4.00 08/04/16 02:10 97 35 08/04/16 02:00 76 08/04/16 00:00 98.4 78 12 158/71 97 08/04/16 00:00 78 08/03/16 23:15 97 35 08/03/16 22:59 94 Nasal Cannula 6.00 08/03/16 22:00 76 08/03/16 20:00 77 08/03/16 20:00 98.7 76 12 156/78 96 08/03/16 19:00 98 Nasal Cannula 6.00 50 08/03/16 18:33 14 08/03/16 18:00 83 08/03/16 16:05 94 Venturi Mask 6.00 50 08/03/16 16:00 98.4 76 17 111/64 94 08/03/16 16:00 76 -: 08/04/16 0422 08/04/16 0427 Physical Exam General Appearance: Obese Throat Throat Exam: Oral Mucosa [place] & Moist Neck Neck Exam: Neck Supple Pulmonary Resp Exam: Rhonchi, Decreased Bases, Diminished Breath Sounds Cardiology CV Exam: Regular, Normal Sinus Rhythm Gastrointestinal/Abdomen GI Exam: Soft, Non-Tender, Distended Extremeties Extremities Exam: Pitting Edema, Dependent Edema Neurologic Neuro Exam: Sedated Assessment/Plan Problem List: (1) Stage 4 chronic kidney disease Plan: Patient with advanced kidney disease and had the workup in May. 10 g of proteinuria Most likely has advance Diabetic Nephropathy. Urine output dropped overnight and that she is not passing too much urine and renal function are getting worse again need hemodialysis will attempt to get Vascath in am BP high inc. Hydralazine 20 mg IV PRN (2) Hypoventilation associated with obesity syndrome Plan: critical care following (3) Nephrotic syndrome Plan: Protein to creatinine ratio above 10 10.52 (4) Acute exacerbation of CHF (congestive heart failure) Plan: This is likely due to chronic kidney disease and diastolic dysfunction (5) Diabetes Plan: Advance manifestations diabetic nephropathy, retinopathy and neuropathy (6) HTN (hypertension) Plan: Continue to monitor on PRN hydralazine Problem Qualifiers (1) Acute exacerbation of CHF (congestive heart failure): Qualified Code: I50.9 - Acute on chronic congestive heart failure, unspecified congestive heart failure type (2) Diabetes: (3) HTN (hypertension): Qualified Code: I10 - Essential hypertension Ebony Garcia MD Aug 04, 2016 15:20
--- NOTE | 2016-08-04 15:57 | HHI.PR ---
Subjective Remarks Resting in bed. On O2 3 L.. Used Bipap at HS On Bumex IV. Seems stable . Objective Vital Signs Date Time Temp Pulse Resp B/P Pulse Ox O2 Delivery O2 Flow Rate FiO2 08/04/16 15:17 94 Nasal Cannula 2.00 08/04/16 10:00 75 08/04/16 08:00 97.8 81 27 175/81 95 08/04/16 08:00 86 08/04/16 07:00 98 Nasal Cannula 6.00 08/04/16 06:00 82 08/04/16 04:15 168/79 08/04/16 04:00 81 08/04/16 04:00 98.7 81 27 175/81 95 08/04/16 03:50 95 Nasal Cannula 4.00 08/04/16 03:50 95 08/04/16 03:50 95 Nasal Cannula 4.00 08/04/16 02:10 97 35 08/04/16 02:00 76 08/04/16 00:00 98.4 78 12 158/71 97 08/04/16 00:00 78 08/03/16 23:15 97 35 08/03/16 22:59 94 Nasal Cannula 6.00 08/03/16 22:00 76 08/03/16 20:00 77 08/03/16 20:00 98.7 76 12 156/78 96 08/03/16 19:00 98 Nasal Cannula 6.00 50 08/03/16 18:33 14 08/03/16 18:00 83 08/03/16 16:05 94 Venturi Mask 6.00 50 08/03/16 16:00 98.4 76 17 111/64 94 08/03/16 16:00 76 I/O 08/03/16 08/03/16 08/03/16 08/04/16 08/04/16 08/04/16 07:00 15:00 23:00 07:00 15:00 23:00 Intake Total 200 ml 492 ml 150 ml 240 ml Output Total 100 ml 50 ml 26 ml 200 ml Balance 100 ml 442 ml 124 ml 40 ml Intake Oral 120 ml 400 ml 120 ml 120 ml IV Total 80 ml 92 ml 30 ml 120 ml Output Urine Total 100 ml 50 ml 25 ml 200 ml Stool Total 0 ml 1 ml 0 ml # Bowel Movements 0 Result Diagram: 08/04/16 0422 08/04/16 0427 Objective Remarks General: This is a very obese middle-aged lady who is alert. HEENT: Head normocephalic. Pupils are reactive. Tongue is moist. Throat is clear. Nasal mucosa clear Neck: Supple. Mild JVD. No lymphadenopathy. No venous distension . Trachea midline. Chest: Distant breath sounds with wheezes bilaterally, prolonged expirations, occ crackles at the lung bases. Heart: The heart sounds are irregular. S1 and S2. No definite murmur. No S3. Abdomen: Soft, protuberant. No mass, no organomegaly or tenderness. Bowel sounds are active. Extremities: Decreased peripheral pulses. 1+ leg edema. Neurologic: responsive. Reflexes 1 + Rectal: Exam deferred. Skin: Scaly, dry and warm. Assessment and Plan Assessment and Plan . IMPRESSION 1. CHF with acute exacerbation. 2. Possible obstructive sleep apnea syndrome. 3. Hypertension. 4. Elevated troponin. 5. Diabetes mellitus type 2. 6. S/P respiratory Arrest. Plan : 1. Wean O2 to 2 L. 2. Cont Bipap at HS 12/5 , FIo2 28 % 3. Nebs qid , duoneb. 4. CBC,BMP in am. 5. prednisone 10 mg bid 6. IS at bedside qid. 7. Cont diuretics . 8. PT evaluation Sheela Lau MD Aug 04, 2016 15:57
[2016-08-05] VITALS (12 sets, daily range): BP systolic 152–178; BP diastolic 73–95; PULSE 70–75; RESP 15–27; TEMP 98–98.8; O2SAT 92–100
[2016-08-05] MEDS: ATORVASTATIN 80 MG TAB PO SCH ×2 (00:48→23:26)
[2016-08-05] MEDS: cloNIDine HCL 0.1 MG TAB PO SCH ×4 (00:48→23:26)
[2016-08-05] MEDS: hydrALAZINE HCL 50 MG TAB PO SCH ×4 (00:48→23:27)
[2016-08-05] MEDS: CARVEDILOL 12.5 MG TAB PO SCH ×3 (00:48→23:26)
[2016-08-05] MEDS: FERROUS SULFATE 300 MG /5ML UDC PO SCH ×3 (00:48→23:26)
[2016-08-05] MEDS: GABAPENTIN 300 MG CAP PO SCH ×3 (00:49→23:27)
[2016-08-05] MEDS: predniSONE 10 MG TAB PO SCH ×3 (00:49→23:26)
[2016-08-05] MEDS: INSULIN NovoLIN REGULAR SUPPLEMENTAL SCALE SQ SCH ×4 (00:50→17:00)
[2016-08-05] MEDS: HEPARIN SODIUM - SQ 10,000 UNITS/ML VIAL SQ SCH ×3 (00:50→23:27)
[2016-08-05] MEDS: ACETAMINOPHEN/HYDROcodone 325 MG/5 MG TAB PO PRN (01:51)
[2016-08-05] MEDS: hydrALAZINE HCL 20 MG/ML VIAL IV PUSH PRN ×2 (02:27→08:32)
[2016-08-05] MEDS: BUMETANIDE INJ 100 ML IV SCH (03:23)
[2016-08-05] MEDS: CHLORHEXIDINE GLUCONATE 2 % 1 PACK (2 CLOTHS) TOP SCH (04:00)
[2016-08-05 04:43] LABS: HEMATOCRIT 30.2 % (35.0-46.0); MEAN CELL VOLUME 71.3 FL (80.0-100.0); MEAN CORPUSCULAR HEMOGLOBIN 22.4 PG (27.0-34.0); MEAN CORPUSCULAR HGB CONC 31.4 % (32.0-36.0); PLATELET COUNT 124 TH/MM3 (150-450); RED BLOOD COUNT 4.24 MIL/MM3 (4.00-5.30); RED CELL DISTRIBUTION WIDTH 18.9 % (11.6-17.2); WHITE BLOOD COUNT 9.2 TH/MM3 (4.0-11.0)
[2016-08-05 04:56] LABS: REVIEW FLAG FINAL
[2016-08-05 05:16] LABS: BICARBONATE 21.1 MEQ/L (21.0-32.0); POTASSIUM 4.5 MEQ/L (3.5-5.1)
[2016-08-05] MEDS: CHLORHEXIDINE 0.12% (ORAL KIT) 15 ML CUP MT SCH ×2 (08:00→20:00)
[2016-08-05] MEDS: POTASSIUM CHLORIDE 20 MEQ PWD PACKET TUBE SCH (08:22)
[2016-08-05] MEDS: DOCUSATE SODIUM 100 MG CAP PO SCH ×2 (08:30→23:26)
[2016-08-05] MEDS: MUPIROCIN 2% OINT 1 APPLIC/GM SYR EACH NARE SCH ×2 (08:30→23:28)
[2016-08-05] MEDS: SENNOSIDES 8.6 MG TAB PO SCH (08:30)
[2016-08-05] MEDS: LISINOPRIL 20 MG TAB PO SCH (08:30)
[2016-08-05] MEDS: PANTOPRAZOLE SODIUM 40 MG VIAL IV SCH (08:30)
[2016-08-05] MEDS: ASPIRIN 81 MG CHEW TAB PO SCH (08:30)
[2016-08-05] MEDS: ALBUMIN HUMAN 25% 25 GM/100 ML BAGP IV SCH ×2 (08:31→16:33)
[2016-08-05] MEDS: SODIUM CHLORIDE 0.9% FLUSH 5 ML FLUSH IVF SCH ×3 (08:31→23:27)
[2016-08-05] MEDS ORDERED: LIDOCAINE HCL 2% 100 MG/5 ML SYRINGE ONE (11:12)
[2016-08-05] MEDS ORDERED: EPINEPHrine HCL (1:10,000) 1 MG/10 ML SYRINGE ONE (11:12)
[2016-08-05] MEDS ORDERED: ATROPINE SULFATE 1 MG/10 ML SYRINGE ONE (11:12)
[2016-08-05] MEDS: LABETALOL HCL 100 MG/20 ML VIAL IV PUSH PRN (11:15)
--- NOTE | 2016-08-05 12:10 | PD.RAD ---
Post Procedure Progress Note Pre Procedure Diagnosis: (1) Stage 4 chronic kidney disease Post Procedure Diagnosis: (1) Stage 4 chronic kidney disease Procedure Date: Aug 05, 2016 Supervising Radiologist: Jorge Ott JR Proceduralist/Assist: Akil Greenfield RT(R), RT Molly(R)() Anesthesia: Local Plan of Activity Patient to Unit: Nursing Unit Patient Condition: Good See PACS Report for procedural detail/treatment Central Venous Access Device Procedure 1 Right Internal Jugular Hemodialysis Catheter Non-Tunneled Placement dual lumen [place]: 14 Findings: RIJ vascath placed. Functions well. OK to use. Jr. Tru,Jorge Valencia MD Aug 05, 2016 12:10
[2016-08-05] MEDS ORDERED: HEPARIN SODIUM - IV 10,000 UNITS/10 ML VIAL IVF PRN (12:15)
[2016-08-05] MEDS ORDERED: SODIUM CHLORIDE 0.9% FLUSH 5 ML FLUSH IVF PRN (12:15)
--- NOTE | 2016-08-05 12:57 | HHI.NPPN ---
Subjective History of Present Illness 50 year old with CKD 4/5 Diabetes Nephrotic range proteinuria Additional Remarks Patient had to use BiPAP, alert, slow to follow verbal commands lethargic Review of Systems General Constitutional: Fatigue Cardiovascular Cardiac: Edema Objective Data Data 08/04/16 08/05/16 19:00 07:00 Intake Total 383 ml 345 ml Output Total 275 ml 500 ml Balance 108 ml -155 ml Intake Oral 300 ml 240 ml IV Total 83 ml 105 ml Output Urine Total 275 ml 500 ml Stool Total 0 ml 0 ml # Bowel Movements 0 Vital Signs Date Time Temp Pulse Resp B/P Pulse Ox O2 Delivery O2 Flow Rate FiO2 08/05/16 10:00 73 08/05/16 08:00 100 Nasal Cannula 3.00 08/05/16 08:00 98.0 75 26 178/86 100 08/05/16 08:00 96 Nasal Cannula 2.00 08/05/16 08:00 75 08/05/16 06:00 75 08/05/16 04:00 74 08/05/16 04:00 98.0 74 15 164/75 96 08/05/16 02:00 72 08/05/16 00:00 98.0 72 18 163/95 94 08/05/16 00:00 72 08/04/16 22:00 74 08/04/16 20:24 94 Nasal Cannula 2.00 08/04/16 20:00 74 08/04/16 20:00 98.3 74 15 146/71 93 08/04/16 19:00 93 Nasal Cannula 3.00 08/04/16 18:00 75 08/04/16 16:00 75 08/04/16 16:00 98.6 73 14 158/75 96 08/04/16 15:17 94 Nasal Cannula 2.00 08/04/16 14:00 75 -: 08/05/16 0359 08/05/16 0359 Physical Exam General Appearance: Obese Throat Throat Exam: Oral Mucosa [place] & Moist Neck Neck Exam: Neck Supple Pulmonary Resp Exam: Rhonchi, Decreased Bases, Diminished Breath Sounds Cardiology CV Exam: Regular, Normal Sinus Rhythm Gastrointestinal/Abdomen GI Exam: Soft, Non-Tender, Distended Extremeties Extremities Exam: Pitting Edema, Dependent Edema Neurologic Neuro Exam: Sedated Assessment/Plan Problem List: (1) Stage 4 chronic kidney disease Plan: Patient with advanced kidney disease and had the workup in Dec. 10 g of proteinuria Most likely has advance Diabetic Nephropathy. Vascath in need HD today continue with fluid removal 3-4 L stop Bumex drip (2) Hypoventilation associated with obesity syndrome Plan: critical care following (3) Nephrotic syndrome Plan: Protein to creatinine ratio above 10 10.52 (4) Acute exacerbation of CHF (congestive heart failure) Plan: This is likely due to chronic kidney disease and diastolic dysfunction (5) Diabetes Plan: Advance manifestations diabetic nephropathy, retinopathy and neuropathy (6) HTN (hypertension) Plan: Continue to monitor on PRN hydralazine Problem Qualifiers (1) Acute exacerbation of CHF (congestive heart failure): Qualified Code: I50.9 - Acute on chronic congestive heart failure, unspecified congestive heart failure type (2) Diabetes: (3) HTN (hypertension): Qualified Code: I10 - Essential hypertension Ebony Garcia MD Aug 05, 2016 12:57
[2016-08-05] MEDS: niCARdipine INJ 25 MG in SODIUM CHLOR 0.9% 250 ML INJ 250 ML IV SCH (15:25)
--- NOTE | 2016-08-05 16:52 | HHI.PR ---
Subjective Remarks Patient BP is uncontrolled. Had to be restarted on Cardene drip. Renal function is worse. She is awake and alert but still have issues with periodic confusions. Objective Vitals Vital Signs Date Time Temp Pulse Resp B/P Pulse Ox O2 Delivery O2 Flow Rate FiO2 08/05/16 16:00 98.0 70 26 160/73 95 08/05/16 16:00 70 08/05/16 14:00 74 08/05/16 10:00 73 08/05/16 08:00 100 Nasal Cannula 3.00 08/05/16 08:00 98.0 75 26 178/86 100 08/05/16 08:00 96 Nasal Cannula 2.00 08/05/16 08:00 75 08/05/16 06:00 75 08/05/16 04:00 74 08/05/16 04:00 98.0 74 15 164/75 96 08/05/16 02:00 72 08/05/16 00:00 98.0 72 18 163/95 94 08/05/16 00:00 72 08/04/16 22:00 74 08/04/16 20:24 94 Nasal Cannula 2.00 08/04/16 20:00 74 08/04/16 20:00 98.3 74 15 146/71 93 08/04/16 19:00 93 Nasal Cannula 3.00 08/04/16 18:00 75 I/O 08/04/16 08/04/16 08/04/16 08/05/16 08/05/16 08/05/16 07:00 15:00 23:00 07:00 15:00 23:00 Intake Total 240 ml 383 ml 192 ml 153 ml 182 ml Output Total 200 ml 275 ml 250 ml 250 ml 350 ml Balance 40 ml 108 ml -58 ml -97 ml -168 ml Intake Oral 120 ml 300 ml 120 ml 120 ml 120 ml IV Total 120 ml 83 ml 72 ml 33 ml 62 ml Output Urine Total 200 ml 275 ml 250 ml 250 ml 350 ml Stool Total 0 ml 0 ml 0 ml # Bowel Movements 0 0 Result Diagram: 08/05/16 0359 08/05/16 0359 Objective Remarks GENERAL: Morbidly obese female, on 5 L NC. CARDIOVASCULAR: Normal rate and regular rhythm without murmurs, gallops, or rubs. RESPIRATORY: Some diffuse rhonchi. Otherwise diminished breath sounds bilaterally at the bases. No wheezing. GASTROINTESTINAL: Abdomen soft, non-tender, non-distended. Normal active bowel sounds MUSCULOSKELETAL: Extremities without cyanosis, or edema. NEURO: Alert & Oriented to self. Follow commands. Intermittent confusions. PSYCH: Appropriate mood and affect. Date of Insertion: Jul 23, 2016 Line: Central Venous Catheter Side: Left Location: Internal, Jugular A/P Problem List: (1) Acute exacerbation of CHF (congestive heart failure) ICD Code: I50.9 Status: Acute (2) Stage 4 chronic kidney disease ICD Code: N18.4 Status: Acute (3) Elevated troponin ICD Code: R79.89 Status: Acute (4) HTN (hypertension) ICD Code: I10 Status: Chronic (5) Diabetes ICD Code: E11.9 Status: Chronic Assessment and Plan 50 y/o female with a medical history significant for CHF, depression, HTN, dm, and ckd with prolonged hospital stay secondary to recurrent intubation, status post cardiac arrest. Patient currently still in the ICU. Acute respiratory failure: Likely a combination of renal failure, diastolic heart failure, pulmonary edema, possible COPD, HCAP with MRSA in the sputum. Patient has been intubated about 3 times during this hospitalization. Currently on BiPAP at night and as needed. Nasal cannula 5 L/min - Appreciate pulmonology following. On prednisone. bipap per Pulmonology - Infectious disease following. Status post Rocephin and Zyvox. Antibiotics discontinued. Monitor patient off antibiotic. - Currently on 5 L nasal cannula. Patient is still at risk for further respiratory decompensation. Acute on chronic kidney disease: Worse today. -Appreciate nephrology following. Most likely advanced diabetic nephropathy. Renal function and urine output worse. In need of dialysis. Status post Vas- Cath placement. Patient to have dialysis today. Encephalopathy: Secondary to multiple comorbid conditions above. Anoxic injury also possibility. Continue to follow. CHF: Echocardiogram 05/21 revealed EF 50%. Mildly dilated ventricle. Diffuse hypokinesis. Echocardiogram 07/23 reveals EF 45-50%. No regional motion abnormality. POOL 59 mmHg. Mild TR. - Continue Coreg, lisinopril. Followed by cardiology. Troponin likely due to fluid overloaded state per Cards. previous stress test showing mild small lateral wall defect. Hypertension: Resistant, difficult to control. On Coreg 25mg BID, hydralazine 100mg TID, lisinopril 20 daily, nifedipine Continue atorvastatin 80 mg daily's for dyslipidemia. - Patient restarted on Cardene drip. Hopefully will improve with dialysis. Diabetes mellitus: - Continue sliding scale insulin with Accu-Chek Anemia: Currently on iron sulfate 325mg PO twice a day/home medication. Monitor CBC. Transfuse for hemoglobin less than 7 GI prophylaxis: Stool softener PRN constipation. DVT PPx: SCDs/Heparin Discharge Planning Patient is still acutely ill and at risk for decompensation. Keep in ICU. Problem Qualifiers (1) Acute exacerbation of CHF (congestive heart failure): Qualified Code: I50.9 - Acute on chronic congestive heart failure, unspecified congestive heart failure type (2) HTN (hypertension): Qualified Code: I10 - Essential hypertension (3) Diabetes: Carey Coombs MD Aug 05, 2016 16:52
[2016-08-05] MEDS: GENTAMICIN SULFATE (DIALYSIS USE ONLY) 20 MG/2 ML VIAL IV PRN (18:48)
--- NOTE | 2016-08-05 18:55 | HHI.PR ---
Subjective Remarks Being dialyzed. On O2 3 L.. Used Bipap at HS No chest pain. BP is better. Objective Vital Signs Date Time Temp Pulse Resp B/P Pulse Ox O2 Delivery O2 Flow Rate FiO2 08/05/16 18:00 70 08/05/16 16:00 98.0 70 26 160/73 95 08/05/16 16:00 70 08/05/16 14:00 74 08/05/16 10:00 73 08/05/16 08:00 100 Nasal Cannula 3.00 08/05/16 08:00 98.0 75 26 178/86 100 08/05/16 08:00 96 Nasal Cannula 2.00 08/05/16 08:00 75 08/05/16 06:00 75 08/05/16 04:00 74 08/05/16 04:00 98.0 74 15 164/75 96 08/05/16 02:00 72 08/05/16 00:00 98.0 72 18 163/95 94 08/05/16 00:00 72 08/04/16 22:00 74 08/04/16 20:24 94 Nasal Cannula 2.00 08/04/16 20:00 74 08/04/16 20:00 98.3 74 15 146/71 93 08/04/16 19:00 93 Nasal Cannula 3.00 I/O 08/04/16 08/04/16 08/04/16 08/05/16 08/05/16 08/05/16 07:00 15:00 23:00 07:00 15:00 23:00 Intake Total 240 ml 383 ml 192 ml 153 ml 182 ml Output Total 200 ml 275 ml 250 ml 250 ml 350 ml 4000 ml Balance 40 ml 108 ml -58 ml -97 ml -168 ml -4000 ml Intake Oral 120 ml 300 ml 120 ml 120 ml 120 ml IV Total 120 ml 83 ml 72 ml 33 ml 62 ml Output Urine Total 200 ml 275 ml 250 ml 250 ml 350 ml Stool Total 0 ml 0 ml 0 ml Hemodialysis 4000 ml # Bowel Movements 0 0 Result Diagram: 08/05/169 08/05/16 0359 Objective Remarks General: This is a very obese middle-aged lady who is alert. HEENT: Head normocephalic. Pupils are reactive. Tongue is moist. Throat is clear. Nasal mucosa clear Neck: Supple. Mild JVD. No lymphadenopathy. No venous distension . Trachea midline. Chest: Distant breath sounds with wheezes bilaterally, prolonged expirations, occ crackles at the lung bases. Heart: The heart sounds are irregular. S1 and S2. No definite murmur. No S3. Abdomen: Soft, protuberant. No mass, no organomegaly or tenderness. Bowel sounds are active. Extremities: Decreased peripheral pulses. 1+ leg edema. Neurologic: responsive. Reflexes 1 + Rectal: Exam deferred. Skin: Scaly, dry and warm. Assessment and Plan Assessment and Plan . IMPRESSION 1. CHF with acute exacerbation. 2. Possible obstructive sleep apnea syndrome. 3. Hypertension. 4. Elevated troponin. 5. Diabetes mellitus type 2. 6. S/P respiratory Arrest. Plan : 1. Wean O2 to 2 L. 2. Cont Bipap at HS 12/5 , FIo2 28 % 3. Nebs qid , duoneb. 4. Dialysis today. 5. prednisone 10 mg bid 6. IS at bedside qid. 7. Cont diuretics . 8. PT evaluation for activity. 9. Wean Cardene. Sheela Lau MD Aug 05, 2016 18:55
[2016-08-06] VITALS (14 sets, daily range): BP systolic 132–171; BP diastolic 60–89; PULSE 58–76; RESP 13–24; TEMP 98–98.7; O2SAT 91–100
[2016-08-06] MEDS: SENNOSIDES 8.6 MG TAB PO SCH ×3 (00:44→20:12)
[2016-08-06] MEDS: INSULIN NovoLIN REGULAR SUPPLEMENTAL SCALE SQ SCH ×4 (00:45→18:41)
[2016-08-06] MEDS: ACETAMINOPHEN/HYDROcodone 325 MG/5 MG TAB PO PRN (01:15)
[2016-08-06] MEDS: CHLORHEXIDINE GLUCONATE 2 % 1 PACK (2 CLOTHS) TOP SCH (02:11)
[2016-08-06] MEDS: niCARdipine INJ 25 MG in SODIUM CHLOR 0.9% 250 ML INJ 250 ML IV SCH ×5 (02:14→20:16)
[2016-08-06] MEDS: hydrALAZINE HCL 20 MG/ML VIAL IV PUSH PRN ×2 (02:39→14:58)
[2016-08-06 04:08] LABS: MEAN CELL VOLUME 70.5 FL (80.0-100.0); MEAN CORPUSCULAR HEMOGLOBIN 22.5 PG (27.0-34.0); MEAN CORPUSCULAR HGB CONC 31.9 % (32.0-36.0); PLATELET COUNT 123 TH/MM3 (150-450); RED BLOOD COUNT 3.97 MIL/MM3 (4.00-5.30); RED CELL DISTRIBUTION WIDTH 19.3 % (11.6-17.2); WHITE BLOOD COUNT 7.7 TH/MM3 (4.0-11.0)
[2016-08-06 04:12] LABS: REVIEW FLAG FINAL
[2016-08-06] MEDS: cloNIDine HCL 0.1 MG TAB PO SCH ×3 (05:46→20:12)
[2016-08-06] MEDS: hydrALAZINE HCL 50 MG TAB PO SCH ×3 (05:46→20:16)
[2016-08-06] MEDS: CHLORHEXIDINE 0.12% (ORAL KIT) 15 ML CUP MT SCH ×2 (08:00→20:00)
[2016-08-06] MEDS: ALBUMIN HUMAN 25% 25 GM/100 ML BAGP IV SCH ×2 (08:00→18:41)
[2016-08-06] MEDS: MUPIROCIN 2% OINT 1 APPLIC/GM SYR EACH NARE SCH ×2 (09:00→20:13)
[2016-08-06] MEDS: HEPARIN SODIUM - SQ 10,000 UNITS/ML VIAL SQ SCH ×2 (09:00→20:14)
[2016-08-06] MEDS: FERROUS SULFATE 300 MG /5ML UDC PO SCH ×2 (09:00→20:12)
[2016-08-06] MEDS: DOCUSATE SODIUM 100 MG CAP PO SCH ×2 (09:00→20:13)
[2016-08-06] MEDS: predniSONE 10 MG TAB PO SCH ×2 (09:00→20:13)
[2016-08-06] MEDS: SODIUM CHLORIDE 0.9% FLUSH 5 ML FLUSH IVF SCH ×3 (09:00→20:13)
[2016-08-06] MEDS: HEPARIN SODIUM - IV 10,000 UNITS/10 ML VIAL PRN (09:02)
[2016-08-06] MEDS: SODIUM CHLOR 0.9% 1000 ML INJ 1,000 ML IV PRN (09:02)
[2016-08-06] MEDS: GENTAMICIN SULFATE (DIALYSIS USE ONLY) 20 MG/2 ML VIAL IV PRN (09:02)
[2016-08-06] MEDS: EPOETIN ALFA 10,000 UNITS/ML VIAL IV PRN (09:02)
--- NOTE | 2016-08-06 09:14 | RADRPT ---
EXAM DATE/TIME: 08/06/2016 07:58 [facility] COMPARISON: No previous studies available for comparison. INDICATIONS : Left arm swelling. MEDICAL HISTORY : Hypercholesterolemia. Hypertension. Dyspnea. Renal failure. Diabetes SURGICAL HISTORY : Coronary stent. Cesearean section. ENCOUNTER: Subsequent ACUITY: 1 day PAIN SCORE: 5/10 LOCATION: Left arm. FINDINGS: Echogenic noncompressible material is seen involving the cephalic vein within the forearm. The more p roximal cephalic vein is patent. There is spontaneous flow documented in the brachial, basilic, axill jerri, and subclavian veins. The vessels are compressible and augmentation response is documented. No filling defects are seen. The flow is phasic with respiration. Direction of flow in the jugular ve in is caudal. CONCLUSION: Occlusive thrombus involving the cephalic vein within the forearm. This is a superficial venous struc ture. No deep venous thrombosis. Jorge Ott Jr., MD on August 06, 2016 at 9:00 Board Certified Radiologist. This report was verified electronically.
--- NOTE | 2016-08-06 09:44 | HHI.NPPN ---
Subjective History of Present Illness 50 year old with CKD 4/5 Diabetes Nephrotic range proteinuria Additional Remarks Patient on FM O2 alert, slow to follow verbal commands lethargic Review of Systems General Constitutional: Fatigue Cardiovascular Cardiac: Edema Objective Data Data 08/05/16 08/06/16 18:59 06:59 Intake Total 182 ml 836 ml Output Total 4350 ml 700 ml Balance -4168 ml 136 ml Intake Oral 120 ml 180 ml IV Total 62 ml 656 ml Output Urine Total 350 ml 700 ml Hemodialysis 4000 ml # Bowel Movements 0 0 Vital Signs Date Time Temp Pulse Resp B/P Pulse Ox O2 Delivery O2 Flow Rate FiO2 08/06/16 06:00 72 08/06/16 04:00 98.7 70 24 133/60 95 08/06/16 04:00 70 08/06/16 02:00 70 08/06/16 00:00 97 Non-Rebreather 15.00 100 08/06/16 00:00 74 22 167/89 100 08/06/16 00:00 74 08/05/16 22:00 72 08/05/16 21:10 98 35 08/05/16 20:00 75 08/05/16 20:00 100 Nasal Cannula 3.00 08/05/16 20:00 98.8 74 27 152/83 92 08/05/16 18:00 70 08/05/16 16:00 98.0 70 26 160/73 95 08/05/16 16:00 70 08/05/16 14:00 74 08/05/16 10:00 73 -: 08/06/16 0327 08/05/16 0359 Physical Exam General Appearance: Obese Throat Throat Exam: Oral Mucosa [place] & Moist Neck Neck Exam: Neck Supple Pulmonary Resp Exam: Rhonchi, Decreased Bases, Diminished Breath Sounds Cardiology CV Exam: Regular, Normal Sinus Rhythm Gastrointestinal/Abdomen GI Exam: Soft, Non-Tender, Distended Extremeties Extremities Exam: Pitting Edema, Dependent Edema Neurologic Neuro Exam: Sedated Assessment/Plan Problem List: (1) Stage 4 chronic kidney disease Plan: Patient with advanced kidney disease and had the workup in May. 10 g of proteinuria Most likely has advance Diabetic Nephropathy. Seen during hemodialysis continue with fluid removal 5 L doing poorly on FM O2 (2) Hypoventilation associated with obesity syndrome Plan: critical care following (3) Nephrotic syndrome Plan: Protein to creatinine ratio above 10 10.52 (4) Acute exacerbation of CHF (congestive heart failure) Plan: This is likely due to chronic kidney disease and diastolic dysfunction (5) Diabetes Plan: Advance manifestations diabetic nephropathy, retinopathy and neuropathy (6) HTN (hypertension) Plan: Continue to monitor on PRN hydralazine Problem Qualifiers (1) Acute exacerbation of CHF (congestive heart failure): Qualified Code: I50.9 - Acute on chronic congestive heart failure, unspecified congestive heart failure type (2) Diabetes: (3) HTN (hypertension): Qualified Code: I10 - Essential hypertension Ebony Garcia MD Aug 06, 2016 09:44
[2016-08-06] MEDS: PANTOPRAZOLE SODIUM 40 MG VIAL IV SCH (09:50)
[2016-08-06] MEDS: LISINOPRIL 20 MG TAB PO SCH (11:30)
[2016-08-06] MEDS: CARVEDILOL 12.5 MG TAB PO SCH ×2 (11:31→20:12)
[2016-08-06] MEDS: ASPIRIN 81 MG CHEW TAB PO SCH (11:31)
[2016-08-06] MEDS: GABAPENTIN 300 MG CAP PO SCH ×2 (11:31→20:12)
--- NOTE | 2016-08-06 15:43 | HHI.PR ---
Subjective Remarks Patient had dialysis today. Discussed with RN. Intermittent episodes of confusion and at times requiring restraints. Patient states that she is feeling okay. No appetite and she is not eating much. Still requiring a nonrebreather. Objective Vitals Vital Signs Date Time Temp Pulse Resp B/P Pulse Ox O2 Delivery O2 Flow Rate FiO2 08/06/16 11:11 94 Non-Rebreather 15.00 08/06/16 07:00 95 Non-Rebreather 15.00 08/06/16 06:00 72 08/06/16 04:00 98.7 70 24 133/60 95 08/06/16 04:00 70 08/06/16 02:00 70 08/06/16 00:00 97 Non-Rebreather 15.00 100 08/06/16 00:00 74 22 167/89 100 08/06/16 00:00 74 08/05/16 22:00 72 08/05/16 21:10 98 35 08/05/16 20:00 75 08/05/16 20:00 100 Nasal Cannula 3.00 08/05/16 20:00 100 Nasal Cannula 3.00 08/05/16 20:00 98.8 74 27 152/83 92 08/05/16 18:00 70 08/05/16 16:00 98.0 70 26 160/73 95 08/05/16 16:00 70 I/O 08/05/16 08/05/16 08/05/16 08/06/16 08/06/16 08/06/16 07:00 15:00 23:00 07:00 15:00 23:00 Intake Total 153 ml 182 ml 335 ml 501 ml Output Total 250 ml 350 ml 4400 ml 300 ml 4500 ml Balance -97 ml -168 ml -4065 ml 201 ml -4500 ml Intake Oral 120 ml 120 ml 60 ml 120 ml IV Total 33 ml 62 ml 275 ml 381 ml Output Urine Total 250 ml 350 ml 400 ml 300 ml Hemodialysis 4000 ml 4500 ml # Bowel Movements 0 0 0 0 Result Diagram: 08/06/16 0327 08/05/16 0359 Objective Remarks GENERAL: Morbidly obese female, on facemask. CARDIOVASCULAR: Normal rate and regular rhythm without murmurs, gallops, or rubs. RESPIRATORY: Some diffuse rhonchi. Otherwise diminished breath sounds bilaterally at the bases. No wheezing. GASTROINTESTINAL: Abdomen soft, non-tender, non-distended. Normal active bowel sounds MUSCULOSKELETAL: Extremities without cyanosis, or edema. NEURO: Alert & Oriented to self. Follow commands. Intermittent confusions. PSYCH: Appropriate mood and affect. Date of Insertion: Jul 23, 2016 Line: Central Venous Catheter Side: Left Location: Internal, Jugular A/P Problem List: (1) Acute exacerbation of CHF (congestive heart failure) ICD Code: I50.9 Status: Acute (2) Stage 4 chronic kidney disease ICD Code: N18.4 Status: Acute (3) Elevated troponin ICD Code: R79.89 Status: Acute (4) HTN (hypertension) ICD Code: I10 Status: Chronic (5) Diabetes ICD Code: E11.9 Status: Chronic Assessment and Plan 50 y/o female with a medical history significant for CHF, depression, HTN, dm, and ckd with prolonged hospital stay secondary to recurrent intubation, status post cardiac arrest. Patient currently still in the ICU. Acute respiratory failure: Likely a combination of renal failure, diastolic heart failure, pulmonary edema, possible COPD, HCAP with MRSA in the sputum. Patient has been intubated about 3 times during this hospitalization. Currently on BiPAP at night and as needed. Still requiring nonrebreather. - Appreciate pulmonology following. On prednisone. bipap per Pulmonology - Infectious disease following. Status post Rocephin and Zyvox. Antibiotics discontinued. Monitor patient off antibiotic. - Patient is still at risk for further respiratory decompensation. Acute on chronic kidney disease: Now on dialysis.. -Appreciate nephrology following. Most likely advanced diabetic nephropathy. Status post Vas-Cath placement. Patient had dialysis today. Follow-up [facility] in a.m. Encephalopathy: Secondary to multiple comorbid conditions above. Anoxic injury also possibility. Continue to follow. CHF: Echocardiogram 05/21 revealed EF 50%. Mildly dilated ventricle. Diffuse hypokinesis. Echocardiogram 07/23 reveals EF 45-50%. No regional motion abnormality. POOL 59 mmHg. Mild TR. - Continue Coreg, lisinopril. Followed by cardiology. Troponin likely due to fluid overloaded state per Cards. previous stress test showing mild small lateral wall defect. Hypertension: Resistant, difficult to control. On Coreg 25mg BID, hydralazine 100mg TID, lisinopril 20 daily Continue atorvastatin 80 mg daily's for dyslipidemia. - Patient restarted on Cardene drip. Resume nifedipine and hopefully weaned off the Cardene drip. Diabetes mellitus: - Continue sliding scale insulin with Accu-Chek Anemia: Currently on iron sulfate 325mg PO twice a day/home medication. Monitor CBC. Transfuse for hemoglobin less than 7 GI prophylaxis: Stool softener PRN constipation. DVT PPx: SCDs/Heparin Discharge Planning Patient is still acutely ill and at risk for decompensation. Keep in ICU. Problem Qualifiers (1) Acute exacerbation of CHF (congestive heart failure): Qualified Code: I50.9 - Acute on chronic congestive heart failure, unspecified congestive heart failure type (2) HTN (hypertension): Qualified Code: I10 - Essential hypertension (3) Diabetes: Carey Coombs MD Aug 06, 2016 15:43
--- NOTE | 2016-08-06 17:35 | RADRPT ---
EXAM DATE/TIME: 08/05/2016 11:21 [facility] COMPARISON: No previous studies available for comparison. INDICATIONS : Patient presents with renal failure in need of dialysis catheter placement. MEDICAL HISTORY : CHF last echo 08/01/15 EF 50% Depression HTN DM Neuropathy Anemia CKD SURGICAL HISTORY : Cardiac Cath 2015, was taken off Plavix at some point ENCOUNTER: Subsequent ACUITY: 4-6 months PAIN SCORE: 0/10 LOCATION: N/A FLUORO TIME: 0.183 minutes ACCESS: Right internal jugular vein MEDICATION(S): 1.) 2,200 units Heparin IV DEVICE(S): 1.) 14 [place] dual lumen 15 cm Schon catheter PROCEDURE : 1. Ultrasound guided venipuncture. 2. Fluoroscopic guidance. 3. Central line placement. The risks, benefits and alternatives to the procedure were explained and verbal and written consent w as obtained. The site was prepped in sterile fashion. Full sterile technique was used, including ca p, mask, sterile gloves and gown and a large sterile sheet. Hand hygiene and 2% chlorhexidine prep w as utilized per protocol for cutaneous antisepsis with appropriate dry time for site. The skin and subcutaneous tissues were infiltrated with local anesthetic solution. A suitable site a li the vein was selected with ultrasound and fluoroscopic guidance. A small incision was made. Th e vein was accessed under direct ultrasound visualization using the micropuncture technique. The josee ropuncture set was exchanged for a 0.035 wire. The tract was dilated. The catheter was advanced int o position under direct fluoroscopic visualization. The catheter was fixed in place with suture and a sterile dressing was applied. The patient tolerated the procedure well and there were no complications. CONCLUSION: Uncomplicated line placement as above. Jorge Ott Jr., MD on August 06, 2016 at 17:24 Board Certified Radiologist. This report was verified electronically.
--- NOTE | 2016-08-06 19:35 | HHI.PR ---
Subjective Remarks Was dialyzed. On O2 NRB mask today. refused Bipap at HS No chest pain. Sleepy. Objective Vital Signs Date Time Temp Pulse Resp B/P Pulse Ox O2 Delivery O2 Flow Rate FiO2 08/06/16 14:00 72 08/06/16 12:00 76 08/06/16 12:00 98.5 76 16 171/77 91 08/06/16 11:11 94 Non-Rebreather 15.00 08/06/16 10:00 70 08/06/16 08:00 72 08/06/16 08:00 98.1 72 19 132/62 98 08/06/16 07:00 95 Non-Rebreather 15.00 08/06/16 06:00 72 08/06/16 04:00 98.7 70 24 133/60 95 08/06/16 04:00 70 08/06/16 02:00 70 08/06/16 00:00 97 Non-Rebreather 15.00 100 08/06/16 00:00 74 22 167/89 100 08/06/16 00:00 74 08/05/16 22:00 72 08/05/16 21:10 98 35 08/05/16 20:00 75 08/05/16 20:00 100 Nasal Cannula 3.00 08/05/16 20:00 100 Nasal Cannula 3.00 08/05/16 20:00 98.8 74 27 152/83 92 I/O 08/05/16 08/05/16 08/05/16 08/06/16 08/06/16 08/06/16 07:00 15:00 23:00 07:00 15:00 23:00 Intake Total 153 ml 182 ml 335 ml 501 ml 535 ml Output Total 250 ml 350 ml 4400 ml 300 ml 4665 ml Balance -97 ml -168 ml -4065 ml 201 ml -4130 ml Intake Oral 120 ml 120 ml 60 ml 120 ml 250 ml IV Total 33 ml 62 ml 275 ml 381 ml 285 ml Output Urine Total 250 ml 350 ml 400 ml 300 ml 165 ml Hemodialysis 4000 ml 4500 ml # Bowel Movements 0 0 0 0 Result Diagram: 08/06/16 0327 08/05/16 0359 Objective Remarks General: This is a very obese middle-aged lady who is lethargic. HEENT: Head normocephalic. Pupils are reactive. Tongue is moist. Throat is clear. Nasal mucosa clear Neck: Supple. Mild JVD. No lymphadenopathy. No venous distension . Trachea midline. Chest: Distant breath sounds with wheezes bilaterally, prolonged expirations, occ crackles at the lung bases. Heart: The heart sounds are irregular. S1 and S2. No definite murmur. No S3. Abdomen: Soft, protuberant. No mass, no organomegaly or tenderness. Bowel sounds are active. Extremities: Decreased peripheral pulses. 1+ leg edema. Neurologic: responsive. Reflexes 1 + Rectal: Exam deferred. Skin: Scaly, dry and warm. Assessment and Plan Assessment and Plan . IMPRESSION 1. CHF with acute exacerbation. 2. Possible obstructive sleep apnea syndrome. 3. Hypertension. 4. Elevated troponin. 5. Diabetes mellitus type 2. 6. S/P respiratory Arrest. Plan : 1. Wean O2 to 4 L. 2. Cont Bipap at HS 12/5 , FIo2 30 % 3. Nebs qid , duoneb. 4. Dialysis in am. 5. Cont prednisone 10 mg bid 6. IS at bedside qid. 7. Cont diuretics . 8. PT evaluation for activity. 9. BMP in am. Sheela Lau MD Aug 06, 2016 19:35
[2016-08-06] MEDS: ATORVASTATIN 80 MG TAB PO SCH (20:12)
[2016-08-06] MEDS: NIFEdipine 20 MG CAP PO SCH (20:14)
[2016-08-07] VITALS (16 sets, daily range): BP systolic 127–160; BP diastolic 59–72; PULSE 52–66; RESP 15–26; TEMP 97.6–98.4; O2SAT 90–99
[2016-08-07] MEDS: INSULIN NovoLIN REGULAR SUPPLEMENTAL SCALE SQ SCH ×5 (01:34→23:06)
[2016-08-07] MEDS: niCARdipine INJ 25 MG in SODIUM CHLOR 0.9% 250 ML INJ 250 ML IV SCH ×4 (01:35→13:00)
[2016-08-07] MEDS: CHLORHEXIDINE GLUCONATE 2 % 1 PACK (2 CLOTHS) TOP SCH (04:00)
[2016-08-07 04:50] LABS: HEMATOCRIT 27.2 % (35.0-46.0); MEAN CELL VOLUME 71.2 FL (80.0-100.0); MEAN CORPUSCULAR HEMOGLOBIN 22.5 PG (27.0-34.0); MEAN CORPUSCULAR HGB CONC 31.6 % (32.0-36.0); PLATELET COUNT 125 TH/MM3 (150-450); RED BLOOD COUNT 3.82 MIL/MM3 (4.00-5.30); RED CELL DISTRIBUTION WIDTH 19.1 % (11.6-17.2); WHITE BLOOD COUNT 5.8 TH/MM3 (4.0-11.0)
[2016-08-07 04:52] LABS: REVIEW FLAG FINAL
[2016-08-07 05:23] LABS: BICARBONATE 26.2 MEQ/L (21.0-32.0); POTASSIUM 4.1 MEQ/L (3.5-5.1)
[2016-08-07] MEDS: hydrALAZINE HCL 50 MG TAB PO SCH ×3 (05:30→22:42)
[2016-08-07] MEDS: cloNIDine HCL 0.1 MG TAB PO SCH ×3 (05:31→22:42)
[2016-08-07] MEDS: NIFEdipine 20 MG CAP PO SCH ×3 (05:31→22:42)
[2016-08-07] MEDS: SODIUM CHLORIDE 0.9% FLUSH 5 ML FLUSH IVF SCH ×3 (08:08→22:28)
[2016-08-07] MEDS: GABAPENTIN 300 MG CAP PO SCH ×2 (08:58→22:27)
[2016-08-07] MEDS: predniSONE 10 MG TAB PO SCH ×2 (08:58→22:26)
[2016-08-07] MEDS: CARVEDILOL 12.5 MG TAB PO SCH ×2 (08:58→22:26)
[2016-08-07] MEDS: SENNOSIDES 8.6 MG TAB PO SCH ×2 (08:58→22:27)
[2016-08-07] MEDS: PANTOPRAZOLE SODIUM 40 MG VIAL IV SCH (08:58)
[2016-08-07] MEDS: LISINOPRIL 20 MG TAB PO SCH (08:58)
[2016-08-07] MEDS: DOCUSATE SODIUM 100 MG CAP PO SCH ×2 (08:58→22:27)
[2016-08-07] MEDS: ASPIRIN 81 MG CHEW TAB PO SCH (08:58)
[2016-08-07] MEDS: FERROUS SULFATE 300 MG /5ML UDC PO SCH ×2 (08:59→22:26)
[2016-08-07] MEDS: HEPARIN SODIUM - SQ 10,000 UNITS/ML VIAL SQ SCH ×2 (08:59→22:28)
[2016-08-07] MEDS: ALBUMIN HUMAN 25% 25 GM/100 ML BAGP IV SCH ×2 (08:59→16:42)
[2016-08-07] MEDS: CHLORHEXIDINE 0.12% (ORAL KIT) 15 ML CUP MT SCH ×2 (08:59→20:00)
[2016-08-07] MEDS: MUPIROCIN 2% OINT 1 APPLIC/GM SYR EACH NARE SCH ×2 (08:59→22:28)
--- NOTE | 2016-08-07 10:10 | HHI.IDPN ---
Subjective Subjective Remarks Notes reviewed Started on HD 08/05 Had HD again yesterday On Denies SOB, not coughing Temps ok BP ok S/P Rx MRSA PNA Antibiotics None Lines RSC vascath - 08/05 Past Medical History CHF last echo 08/01/15 EF 50% Depression HTN DM Neuropathy Anemia CKD Past Surgical History Cardiac Cath 2015 Allergies: Coded Allergies: Lyrica (Verified Allergy, Severe, Anaphylaxis, 07/15/16) *MDRO Multi-Drug Resistant Organism (Verified Adverse Reaction, Unknown, ) MRSA (sputum)-07/20/16 MRSA PCR Screen POSITIVE - 07/18/2016 Objective . Vital Signs Date Time Temp Pulse Resp B/P Pulse Ox O2 Delivery O2 Flow Rate FiO2 08/07/16 07:00 98 Partial Non-Rebreather 15.00 08/07/16 06:00 56 08/07/16 04:00 64 08/07/16 04:00 64 26 144/69 97 08/07/16 03:51 98 50 08/07/16 02:00 66 08/07/16 01:04 98 50 08/07/16 00:00 64 08/07/16 00:00 98.4 64 21 153/71 97 08/06/16 22:00 58 08/06/16 20:00 64 08/06/16 20:00 98.0 62 13 148/67 97 08/06/16 20:00 97 Bi-Pap 08/06/16 19:35 95 50 08/06/16 18:00 64 08/06/16 16:00 98.0 64 22 150/65 100 08/06/16 16:00 64 08/06/16 14:00 72 08/06/16 12:00 76 08/06/16 12:00 98.5 76 16 171/77 91 08/06/16 11:11 94 Non-Rebreather 15.00 08/06/16 08/06/16 08/07/16 15:00 23:00 07:00 Intake Total 535 ml 1286 ml 860 ml Output Total 4665 ml 100 ml 50 ml Balance -4130 ml 1186 ml 810 ml Intake Oral 250 ml 370 ml 220 ml IV Total 285 ml 816 ml 640 ml Albumin 100 ml Output Urine Total 165 ml 100 ml 50 ml Hemodialysis 4500 ml # Bowel Movements 0 0 . Laboratory Tests Test 08/06/16 08/07/16 03:27 04:20 White Blood Count 7.7 TH/MM3 5.8 TH/MM3 Red Blood Count 3.97 MIL/MM3 3.82 MIL/MM3 Hemoglobin 8.9 GM/DL 8.6 GM/DL Hematocrit 28.0 % 27.2 % Mean Corpuscular Volume 70.5 FL 71.2 FL Mean Corpuscular Hemoglobin 22.5 PG 22.5 PG Mean Corpuscular Hemoglobin 31.9 % 31.6 % Concent Red Cell Distribution Width 19.3 % 19.1 % Platelet Count 123 TH/MM3 125 TH/MM3 Mean Platelet Volume 9.3 FL 9.4 FL Laboratory Tests Test 08/07/16 04:20 Sodium Level 138 MEQ/L Potassium Level 4.1 MEQ/L Chloride Level 103 MEQ/L Carbon Dioxide Level 26.2 MEQ/L Anion Gap 9 MEQ/L Blood Urea Nitrogen 49 MG/DL Creatinine 4.73 MG/DL Estimat Glomerular Filtration 10 ML/MIN Rate Random Glucose 172 MG/DL Calcium Level 8.3 MG/DL Imaging Upper Extremity Ultrasound 08/06/16 0000 Signed Impressions: Service Date/Time: Saturday, August 06, 2016 07:58 - CONCLUSION: Occlusive thrombus involving the cephalic vein within the forearm. This is a superficial venous structure. No deep venous thrombosis. Jorge Ott Jr., MD Catheter Placement X-Ray 08/05/16 0000 Signed Impressions: Service Date/Time: Friday, August 05, 2016 11:21 - CONCLUSION: Uncomplicated line placement as above. Jorge Ott Jr., MD Chest X-Ray 07/29/16 0000 Signed Impressions: Service Date/Time: Friday, July 29, 2016 06:31 - CONCLUSION: 1. Cardiomegaly and findings of congestive heart failure. There has been no significant change when compared to the prior exam. Emre Daniel MD Chest X-Ray 07/28/16 0600 Signed Impressions: Service Date/Time: Thursday, July 28, 2016 04:44 - CONCLUSION: No significant change. Adolfo Roman MD Chest X-Ray 07/27/16 0000 Signed Impressions: Service Date/Time: Wednesday, July 27, 2016 04:08 - CONCLUSION: Worsening bibasilar consolidation and effusions. Adolfo Roman MD Chest X-Ray 07/26/16 0600 Signed Impressions: Service Date/Time: Tuesday, July 26, 2016 04:54 - CONCLUSION: Slightly improved bibasilar consolidation and small effusions. Adolfo Roman MD Brain MRI 07/25/16 0000 Signed Impressions: Service Date/Time: July 17:05 - CONCLUSION: 1. No acute hemorrhage, mass or infarction. 2. Scattered foci of increased signal noted most consistent with chronic small vessel ischemic change. This is not significantly changed. 3. Fluid and high signal is now noted in the mastoid air cells bilaterally consistent with mastoiditis. Grady Hale MD Chest X-Ray 07/23/161999 Signed Impressions: Service Date/Time: Saturday, July 23, 2016 20:11 - CONCLUSION: 1. Left IJ line tip in superior vena cava without pneumothorax. George Choi MD Head CT 07/23/16 Signed Impressions: Service Date/Time: Saturday, July 23, 2016 20:54 - CONCLUSION: Normal examination for a patient of this age. No significant change has occurred. George Choi MD Consultation 07/19/16 Signed Impressions: Service Date/Time: Tuesday, July 19, 2016 00:00 - CONCLUSION: Procedure not performed secondary to cardiopulmonary arrest. Emre Daniel MD Brain MRI 07/18/16 0000 Signed Impressions: Service Date/Time: July 17:15 - CONCLUSION: White matter hyperintensities prominent for age indicating possible demyelinating disorder. No evidence of acute infarct. Eliezer Shay MD Abdomen X-Ray 07/18/16 Signed Impressions: Service Date/Time: July 15:39 - CONCLUSION: No evidence of obstruction. No MRI incompatible foreign body is identified. Eliezer Shay MD Physical Exam GENERAL: Awake and responding, NAD SKIN: Cool skin, dry, no generalized rash. HEENT: [place] conjunctivae. No scleral icterus. Has moist oral mucosa. NECK: Supple, not tender. Left IJ central line in place with no evidence of infection. CARDIOVASCULAR: Regular rate and rhythm without murmurs, gallops, or rubs. RESPIRATORY: Coarse breath sounds bilaterally, and equal. Decreased breath sounds at the bases. GASTROINTESTINAL: Abdomen soft, obese, nondistended, not tender. Bowel sounds are present and normoactive. No guarding. MUSCULOSKELETAL: Extremities without clubbing, cyanosis. Has improving edema both hands. NEUROLOGICAL: Awake and alert, grossly non-focal : Calderon catheter in place, looks clear LINE: [facility] [place] Assessment & Plan Remarks IMPRESSION Bilateral infiltrates, due to pulmonary edema HCAP MRSA, S/P Rx Recurrent arrest felt to be due to primary respiratory event Respiratory failure , recurrent post arrest - extubated 07/31 Possibly has PALMER CHF Obesity CKD, started on HD 08/05 RECOMMENDATION Clinically doing well from ID standpoint Has been off Abx Monitor for S/Sxs of new infection I will be available prn. Please reconsult if with any new ID issue or question Polina Flores MD Aug 07, 2016 10:10
--- NOTE | 2016-08-07 10:11 | HHI.NPPN ---
Subjective History of Present Illness 50 year old with CKD 4/5 Diabetes Nephrotic range proteinuria Additional Remarks Patient on O2 alert, Review of Systems General Constitutional: Fatigue Cardiovascular Cardiac: Edema Objective Data Data 08/06/16 08/07/16 19:00 07:00 Intake Total 535 ml 2146 ml Output Total 4665 ml 150 ml Balance -4130 ml 1996 ml Intake Oral 250 ml 590 ml IV Total 285 ml 1456 ml Albumin 100 ml Output Urine Total 165 ml 150 ml Hemodialysis 4500 ml # Bowel Movements 0 Vital Signs Date Time Temp Pulse Resp B/P Pulse Ox O2 Delivery O2 Flow Rate FiO2 08/07/16 07:00 98 Partial Non-Rebreather 15.00 08/07/16 06:00 56 08/07/16 04:00 64 08/07/16 04:00 64 26 144/69 97 08/07/16 03:51 98 50 08/07/16 02:00 66 08/07/16 01:04 98 50 08/07/16 00:00 64 08/07/16 00:00 98.4 64 21 153/71 97 08/06/16 22:00 58 08/06/16 20:00 64 08/06/16 20:00 98.0 62 13 148/67 97 08/06/16 20:00 97 Bi-Pap 08/06/16 19:35 95 50 08/06/16 18:00 64 08/06/16 16:00 98.0 64 22 150/65 100 08/06/16 16:00 64 08/06/16 14:00 72 08/06/16 12:00 76 08/06/16 12:00 98.5 76 16 171/77 91 08/06/16 11:11 94 Non-Rebreather 15.00 -: 08/07/16 0420 08/07/16 0420 Physical Exam General Appearance: Obese Throat Throat Exam: Oral Mucosa Welsh & Moist Neck Neck Exam: Neck Supple Pulmonary Resp Exam: Rhonchi, Decreased Bases, Diminished Breath Sounds Cardiology CV Exam: Regular, Normal Sinus Rhythm Gastrointestinal/Abdomen GI Exam: Soft, Non-Tender, Distended Extremeties Extremities Exam: Pitting Edema, Dependent Edema Neurologic Neuro Exam: Sedated Assessment/Plan Problem List: (1) ESRD (end stage renal disease) on dialysis Plan: kidney failure due to advance diabetic nephropathy need senior care plans HD (2) Stage 4 chronic kidney disease Plan: Patient with advanced kidney disease and had the workup in May. 10 g of proteinuria Most likely has advance Diabetic Nephropathy. continue HD tomorrow (3) Hypoventilation associated with obesity syndrome Plan: critical care following (4) Nephrotic syndrome Plan: Protein to creatinine ratio above 10 10.52 (5) Acute exacerbation of CHF (congestive heart failure) Plan: This is likely due to chronic kidney disease and diastolic dysfunction (6) Diabetes Plan: Advance manifestations diabetic nephropathy, retinopathy and neuropathy (7) HTN (hypertension) Plan: Continue to monitor on PRN hydralazine Problem Qualifiers (1) Acute exacerbation of CHF (congestive heart failure): Qualified Code: I50.9 - Acute on chronic congestive heart failure, unspecified congestive heart failure type (2) Diabetes: (3) HTN (hypertension): Qualified Code: I10 - Essential hypertension Ebony Garcia MD Aug 07, 2016 10:11
--- NOTE | 2016-08-07 12:18 | HHI.PR ---
Subjective Remarks On O2 Venti mask today. Used Bipap at HS No chest pain. More alert . Has some cough. Objective Vital Signs Date Time Temp Pulse Resp B/P Pulse Ox O2 Delivery O2 Flow Rate FiO2 08/07/16 11:57 94 Venturi Mask 6.00 50 08/07/16 10:00 57 08/07/16 08:00 59 08/07/16 08:00 98.4 59 26 160/72 99 08/07/16 07:00 98 Partial Non-Rebreather 15.00 08/07/16 06:00 56 08/07/16 04:00 64 08/07/16 04:00 64 26 144/69 97 08/07/16 03:51 98 50 08/07/16 02:00 66 08/07/16 01:04 98 50 08/07/16 00:00 64 08/07/16 00:00 98.4 64 21 153/71 97 08/06/16 22:00 58 08/06/16 20:00 64 08/06/16 20:00 98.0 62 13 148/67 97 08/06/16 20:00 97 Bi-Pap 08/06/16 19:35 95 50 08/06/16 18:00 64 08/06/16 16:00 98.0 64 22 150/65 100 08/06/16 16:00 64 08/06/16 14:00 72 I/O 08/06/16 08/06/16 08/06/16 08/07/16 08/07/16 08/07/16 07:00 15:00 23:00 07:00 15:00 23:00 Intake Total 501 ml 535 ml 1286 ml 860 ml Output Total 300 ml 4665 ml 100 ml 50 ml Balance 201 ml -4130 ml 1186 ml 810 ml Intake Oral 120 ml 250 ml 370 ml 220 ml IV Total 381 ml 285 ml 816 ml 640 ml Albumin 100 ml Output Urine Total 300 ml 165 ml 100 ml 50 ml Hemodialysis 4500 ml # Bowel Movements 0 0 0 Result Diagram: 08/07/1641908/07/16419 Objective Remarks General: This is a very obese middle-aged lady who is lethargic. HEENT: Head normocephalic. Pupils are reactive. Tongue is moist. Throat is clear. Nasal mucosa clear Neck: Supple. Mild JVD. No lymphadenopathy. Trachea midline. Chest: Distant breath sounds with wheezes bilaterally, prolonged expirations, occ crackles at the lung bases. Heart: The heart sounds are regular. S1 and S2. No definite murmur. No S3. Abdomen: Soft, protuberant. No mass, no organomegaly or tenderness. Bowel sounds are active. Extremities: Decreased peripheral pulses. 1+ leg edema. Neurologic: responsive. Reflexes 1 + Rectal: Exam deferred. Skin: Scaly, dry and warm. Assessment and Plan Assessment and Plan . IMPRESSION 1. CHF with acute exacerbation. 2. Possible obstructive sleep apnea syndrome. 3. Hypertension. 4. Elevated troponin. 5. Diabetes mellitus type 2. 6. S/P respiratory Arrest. Plan : 1. Wean O2 to ventimask 40 % 2. Cont Bipap at HS from 7 PM to 7 AM 12/5 , FIo2 35 % 3. Nebs qid , duoneb. 4. BMP ,CBC 5. Cont prednisone 10 mg bid 6. IS at bedside qid. 7. PFT at bedside. 8. PT evaluation for activity. Sheela Lau MD Aug 07, 2016 12:18
--- NOTE | 2016-08-07 14:40 | HHI.PR ---
Subjective Remarks Patient is on Ventimask. She has no complaints. She is awake and alert. Objective Vitals Vital Signs Date Time Temp Pulse Resp B/P Pulse Ox O2 Delivery O2 Flow Rate FiO2 08/07/16 14:00 59 08/07/16 13:00 91 Partial Non-Rebreather 5.00 Nasal Cannula 08/07/16 12:00 98.0 55 16 136/65 97 08/07/16 12:00 55 08/07/16 11:57 94 Venturi Mask 6.00 50 08/07/16 10:00 57 08/07/16 09:00 92 Venturi Mask 10.00 50 08/07/16 08:00 59 08/07/16 08:00 98.4 59 26 160/72 99 08/07/16 07:00 98 Partial Non-Rebreather 15.00 08/07/16 06:00 56 08/07/16 04:00 64 08/07/16 04:00 64 26 144/69 97 08/07/16 03:51 98 50 08/07/16 02:00 66 08/07/16 01:04 98 50 08/07/16 00:00 64 08/07/16 00:00 98.4 64 21 153/71 97 08/06/16 22:00 58 08/06/16 20:00 64 08/06/16 20:00 98.0 62 13 148/67 97 08/06/16 20:00 97 Bi-Pap 08/06/16 19:35 95 50 08/06/16 18:00 64 08/06/16 16:00 98.0 64 22 150/65 100 08/06/16 16:00 64 I/O 08/06/16 08/06/16 08/06/16 08/07/16 08/07/16 08/07/16 07:00 15:00 23:00 07:00 15:00 23:00 Intake Total 501 ml 535 ml 1286 ml 860 ml 1061 ml Output Total 300 ml 4665 ml 100 ml 50 ml 0 ml Balance 201 ml -4130 ml 1186 ml 810 ml 1061 ml Intake Oral 120 ml 250 ml 370 ml 220 ml 480 ml IV Total 381 ml 285 ml 816 ml 640 ml 481 ml Albumin 100 ml 100 ml Output Urine Total 300 ml 165 ml 100 ml 50 ml 0 ml Hemodialysis 4500 ml # Bowel Movements 0 0 0 Result Diagram: 08/07/1641908/07/16419 Objective Remarks GENERAL: Morbidly obese female, on ventimask. CARDIOVASCULAR: Normal rate and regular rhythm without murmurs, gallops, or rubs. RESPIRATORY: Some diffuse rhonchi. Otherwise diminished breath sounds bilaterally at the bases. No wheezing. GASTROINTESTINAL: Abdomen soft, non-tender, non-distended. Normal active bowel sounds MUSCULOSKELETAL: Extremities without cyanosis, or edema. NEURO: Alert & Oriented to self. Follow commands. Normal speech PSYCH: Appropriate mood and affect. Date of Insertion: Jul 23, 2016 Line: Central Venous Catheter Side: Left Location: Internal, Jugular A/P Problem List: (1) Acute exacerbation of CHF (congestive heart failure) ICD Code: I50.9 Status: Acute (2) Stage 4 chronic kidney disease ICD Code: N18.4 Status: Acute (3) Elevated troponin ICD Code: R79.89 Status: Acute (4) HTN (hypertension) ICD Code: I10 Status: Chronic (5) Diabetes ICD Code: E11.9 Status: Chronic Assessment and Plan 50 y/o female with a medical history significant for CHF, depression, HTN, dm, and ckd with prolonged hospital stay secondary to recurrent intubation, status post cardiac arrest. Patient currently still in the ICU. Acute respiratory failure: Likely a combination of renal failure, diastolic heart failure, pulmonary edema, possible COPD, HCAP with MRSA in the sputum. Patient has been intubated about 3 times during this hospitalization. Currently on BiPAP at night and as needed. - Appreciate pulmonology following. On prednisone. bipap per Pulmonology - Infectious disease following. Status post Rocephin and Zyvox. Antibiotics discontinued. Monitor patient off antibiotic. - Patient currently on Ventimask with bipap at night. DW Pulmonology Dr. Jorje Garcia. Acute on chronic kidney disease: Now on dialysis.. -Appreciate nephrology following. Most likely advanced diabetic nephropathy. Status post Vas-Cath placement. Patient had dialysis yesterday. Follow-up BMP in a.m. Encephalopathy: Secondary to multiple comorbid conditions above. Anoxic injury also possibility. Continue to follow. CHF: Echocardiogram 05/21 revealed EF 50%. Mildly dilated ventricle. Diffuse hypokinesis. Echocardiogram 07/23 reveals EF 45-50%. No regional motion abnormality. POOL 59 mmHg. Mild TR. - Continue Coreg, lisinopril. Followed by cardiology. Troponin likely due to fluid overloaded state per Cards. previous stress test showing mild small lateral wall defect. Hypertension: Resistant, difficult to control. On Coreg 25mg BID, hydralazine 100mg TID, lisinopril 20 daily Continue atorvastatin 80 mg daily's for dyslipidemia. - Attempt to wean off Cardene drip. Cont Nifedipine. Diabetes mellitus: - Continue sliding scale insulin with Accu-Chek Anemia: Currently on iron sulfate 325mg PO twice a day/home medication. Monitor CBC. Transfuse for hemoglobin less than 7 GI prophylaxis: Stool softener PRN constipation. DVT PPx: SCDs/Heparin Problem Qualifiers (1) Acute exacerbation of CHF (congestive heart failure): Qualified Code: I50.9 - Acute on chronic congestive heart failure, unspecified congestive heart failure type (2) HTN (hypertension): Qualified Code: I10 - Essential hypertension (3) Diabetes: Carey Coombs MD Aug 07, 2016 14:40
[2016-08-07] MEDS: ATORVASTATIN 80 MG TAB PO SCH (22:26)
[2016-08-08] VITALS (16 sets, daily range): BP systolic 119–160; BP diastolic 65–79; PULSE 51–87; RESP 15–30; TEMP 97.8–98.8; O2SAT 89–100
[2016-08-08] MEDS: CHLORHEXIDINE GLUCONATE 2 % 1 PACK (2 CLOTHS) TOP SCH (04:00)
[2016-08-08] MEDS: NIFEdipine 20 MG CAP PO SCH ×3 (06:08→21:10)
[2016-08-08] MEDS: hydrALAZINE HCL 50 MG TAB PO SCH ×3 (06:08→21:10)
[2016-08-08] MEDS: cloNIDine HCL 0.1 MG TAB PO SCH ×3 (06:09→21:11)
[2016-08-08] MEDS: INSULIN NovoLIN REGULAR SUPPLEMENTAL SCALE SQ SCH ×4 (06:31→22:51)
[2016-08-08] MEDS: SODIUM CHLORIDE 0.9% FLUSH 5 ML FLUSH IVF SCH ×3 (07:08→21:10)
[2016-08-08] MEDS: ACETAMINOPHEN/HYDROcodone 325 MG/5 MG TAB PO PRN (07:29)
[2016-08-08] MEDS: CHLORHEXIDINE 0.12% (ORAL KIT) 15 ML CUP MT SCH ×2 (08:00→21:10)
[2016-08-08] MEDS: HEPARIN SODIUM - IV 10,000 UNITS/10 ML VIAL PRN (08:07)
[2016-08-08] MEDS: EPOETIN ALFA 10,000 UNITS/ML VIAL IV PRN (08:07)
[2016-08-08] MEDS: SODIUM CHLOR 0.9% 1000 ML INJ 1,000 ML IV PRN (08:07)
[2016-08-08] MEDS: ALBUMIN HUMAN 25% 25 GM/100 ML BAGP IV SCH (09:42)
[2016-08-08] MEDS: SENNOSIDES 8.6 MG TAB PO SCH ×2 (09:43→21:11)
[2016-08-08] MEDS: FERROUS SULFATE 300 MG /5ML UDC PO SCH ×2 (09:43→21:11)
[2016-08-08] MEDS: CARVEDILOL 12.5 MG TAB PO SCH ×2 (09:43→21:11)
[2016-08-08] MEDS: GABAPENTIN 300 MG CAP PO SCH ×2 (09:43→21:11)
[2016-08-08] MEDS: MUPIROCIN 2% OINT 1 APPLIC/GM SYR EACH NARE SCH ×2 (09:43→21:10)
[2016-08-08] MEDS: DOCUSATE SODIUM 100 MG CAP PO SCH ×2 (09:43→21:11)
[2016-08-08] MEDS: PANTOPRAZOLE SODIUM 40 MG VIAL IV SCH (09:43)
[2016-08-08] MEDS: predniSONE 10 MG TAB PO SCH ×2 (09:43→21:11)
[2016-08-08] MEDS: ASPIRIN 81 MG CHEW TAB PO SCH (09:43)
[2016-08-08] MEDS: LISINOPRIL 20 MG TAB PO SCH (09:43)
[2016-08-08] MEDS: HEPARIN SODIUM - SQ 10,000 UNITS/ML VIAL SQ SCH ×2 (09:43→21:11)
--- NOTE | 2016-08-08 10:37 | HHI.NPPN ---
Subjective History of Present Illness 50 year old with CKD 4/5 Diabetes Nephrotic range proteinuria Additional Remarks Patient on O2 alert, Review of Systems General Constitutional: Fatigue Cardiovascular Cardiac: Edema Objective Data Data 08/07/16 08/08/16 19:00 07:00 Intake Total 1061 ml 740 ml Output Total 0 ml 0 ml Balance 1061 ml 740 ml Intake Oral 480 ml 640 ml IV Total 481 ml Albumin 100 ml 100 ml Output Urine Total 0 ml 0 ml Stool Total 0 ml Vital Signs Date Time Temp Pulse Resp B/P Pulse Ox O2 Delivery O2 Flow Rate FiO2 08/08/16 10:04 92 Nasal Cannula 6.00 08/08/16 07:00 90 Venturi Mask 10.00 50 08/08/16 06:00 55 08/08/16 04:00 55 08/08/16 04:00 98.0 55 16 149/66 100 08/08/16 03:40 100 50 08/08/16 02:00 55 08/08/16 00:46 100 50 08/08/16 00:00 55 08/08/16 00:00 97.8 55 20 138/65 100 08/07/16 22:00 54 08/07/16 20:52 94 50 08/07/16 20:50 Venturi Mask 6.00 50 08/07/16 20:00 52 08/07/16 20:00 97.6 52 15 131/62 90 08/07/16 19:00 90 Venturi Mask 10.00 50 08/07/16 18:00 52 08/07/16 16:00 55 08/07/16 16:00 98.3 52 18 127/59 91 08/07/16 14:00 59 08/07/16 13:00 91 Partial Non-Rebreather 5.00 Nasal Cannula 08/07/16 12:00 98.0 55 16 136/65 97 08/07/16 12:00 55 08/07/16 11:57 94 Venturi Mask 6.00 50 -: 08/07/16 0420 08/07/16 0420 Physical Exam General Appearance: Obese Throat Throat Exam: Oral Mucosa Castor & Moist Neck Neck Exam: Neck Supple Pulmonary Resp Exam: Rhonchi, Decreased Bases, Diminished Breath Sounds Cardiology CV Exam: Regular, Normal Sinus Rhythm Gastrointestinal/Abdomen GI Exam: Soft, Non-Tender, Distended Extremeties Extremities Exam: Pitting Edema, Dependent Edema Neurologic Neuro Exam: Sedated Assessment/Plan Problem List: (1) ESRD (end stage renal disease) on dialysis Plan: kidney failure due to advance diabetic nephropathy need alf plans HD seen during dialysis UF 3 L today d/w and pt needs a AVF Placement PermCath (2) Stage 4 chronic kidney disease Plan: Patient with advanced kidney disease and had the workup in May. 10 g of proteinuria Most likely has advance Diabetic Nephropathy. continue HD tomorrow (3) Hypoventilation associated with obesity syndrome Plan: critical care following (4) Nephrotic syndrome Plan: Protein to creatinine ratio above 10 10.52 (5) Acute exacerbation of CHF (congestive heart failure) Plan: This is likely due to chronic kidney disease and diastolic dysfunction (6) Diabetes Plan: Advance manifestations diabetic nephropathy, retinopathy and neuropathy (7) HTN (hypertension) Plan: Continue to monitor on PRN hydralazine Problem Qualifiers (1) Acute exacerbation of CHF (congestive heart failure): Qualified Code: I50.9 - Acute on chronic congestive heart failure, unspecified congestive heart failure type (2) Diabetes: (3) HTN (hypertension): Qualified Code: I10 - Essential hypertension Ebony Garcia MD Aug 08, 2016 10:37
--- NOTE | 2016-08-08 12:37 | HHI.PR ---
Subjective Remarks On O2 50 % Venti mask today. Used Bipap at HS No chest pain. More alert . Had dialysis Objective Vital Signs Date Time Temp Pulse Resp B/P Pulse Ox O2 Delivery O2 Flow Rate FiO2 08/08/16 12:00 98.5 62 15 143/79 89 08/08/16 12:00 62 08/08/16 10:04 92 Nasal Cannula 6.00 08/08/16 10:00 64 08/08/16 08:00 51 08/08/16 08:00 98.8 51 16 119/66 89 08/08/16 07:00 90 Venturi Mask 10.00 50 08/08/16 06:00 55 08/08/16 04:00 55 08/08/16 04:00 98.0 55 16 149/66 100 08/08/16 03:40 100 50 08/08/16 02:00 55 08/08/16 00:46 100 50 08/08/16 00:00 55 08/08/16 00:00 97.8 55 20 138/65 100 08/07/16 22:00 54 08/07/16 20:52 94 50 08/07/16 20:50 Venturi Mask 6.00 50 08/07/16 20:00 52 08/07/16 20:00 97.6 52 15 131/62 90 08/07/16 19:00 90 Venturi Mask 10.00 50 08/07/16 18:00 52 08/07/16 16:00 55 08/07/16 16:00 98.3 52 18 127/59 91 08/07/16 14:00 59 08/07/16 13:00 91 Partial Non-Rebreather 5.00 Nasal Cannula I/O 08/07/16 08/07/16 08/07/16 08/08/16 08/08/16 08/08/16 07:00 15:00 23:00 07:00 15:00 23:00 Intake Total 860 ml 1061 ml 500 ml 240 ml Output Total 50 ml 0 ml 0 ml 0 ml 3000 ml Balance 810 ml 1061 ml 500 ml 240 ml -3000 ml Intake Oral 220 ml 480 ml 400 ml 240 ml IV Total 640 ml 481 ml Albumin 100 ml 100 ml Output Urine Total 50 ml 0 ml 0 ml 0 ml Stool Total 0 ml 0 ml Hemodialysis 3000 ml # Bowel Movements 0 Result Diagram: 08/07/1641908/07/16419 Objective Remarks General: This is a very obese middle-aged lady who is lethargic. HEENT: Head normocephalic. Pupils are reactive. Tongue is moist. Throat is clear. Nasal mucosa clear Neck: Supple. Mild JVD. No lymphadenopathy. Trachea midline. Chest: Distant breath sounds with , prolonged expirations, and occ crackles at the lung bases. Heart: The heart sounds are regular. S1 and S2. No definite murmur. No S3. Abdomen: Soft, protuberant. No mass, no organomegaly or tenderness. Bowel sounds are active. Extremities: Decreased peripheral pulses. 1+ leg edema. Neurologic: responsive. Reflexes 1 + Rectal: Exam deferred. Skin: Scaly, dry and warm. Assessment and Plan Assessment and Plan . IMPRESSION 1. CHF with acute exacerbation. 2. Possible obstructive sleep apnea syndrome. 3. Hypertension. 4. Elevated troponin. 5. Diabetes mellitus type 2. 6. S/P respiratory Arrest. Plan : 1. Wean O2 to N/C 5L. 2. Cont Bipap at HS from 7 PM to 7 AM 12/ , FIo2 35 % 3. Nebs qid , duoneb. 4. BMP ,CBC in am 5. Cont prednisone 10 mg bid 6. IS at bedside qid. 7. Dialysis every other day. 8. PT evaluation for activity. Sheela Lau MD Aug 08, 2016 12:36
[2016-08-08 16:10] LABS: BICARBONATE 18.9 MEQ/L (21.0-32.0); POTASSIUM 4.7 MEQ/L (3.5-5.1)
--- NOTE | 2016-08-08 16:32 | HHI.PR ---
Subjective Remarks Patient had dialysis today. She reports feeling overly tired. Currently stable on nasal cannula. Objective Vitals Vital Signs Date Time Temp Pulse Resp B/P Pulse Ox O2 Delivery O2 Flow Rate FiO2 08/08/16 16:00 98.4 64 30 156/75 94 08/08/16 16:00 64 08/08/16 14:00 66 08/08/16 12:00 98.5 62 15 143/79 89 08/08/16 12:00 62 08/08/16 10:04 92 Nasal Cannula 6.00 08/08/16 10:00 64 08/08/16 08:00 51 08/08/16 08:00 98.8 51 16 119/66 89 08/08/16 07:00 90 Venturi Mask 10.00 50 08/08/16 06:00 55 08/08/16 04:00 55 08/08/16 04:00 98.0 55 16 149/66 100 08/08/16 03:40 100 50 08/08/16 02:00 55 08/08/16 00:46 100 50 08/08/16 00:00 55 08/08/16 00:00 97.8 55 20 138/65 100 08/07/16 22:00 54 08/07/16 20:52 94 50 08/07/16 20:50 Venturi Mask 6.00 50 08/07/16 20:00 52 08/07/16 20:00 97.6 52 15 131/62 90 08/07/16 19:00 90 Venturi Mask 10.00 50 08/07/16 18:00 52 I/O 08/07/16 08/07/16 08/07/16 08/08/16 08/08/16 08/08/16 07:00 15:00 23:00 07:00 15:00 23:00 Intake Total 860 ml 1061 ml 500 ml 240 ml 340 ml Output Total 50 ml 0 ml 0 ml 0 ml 3000 ml Balance 810 ml 1061 ml 500 ml 240 ml -2660 ml Intake Oral 220 ml 480 ml 400 ml 240 ml 240 ml IV Total 640 ml 481 ml Albumin 100 ml 100 ml 100 ml Output Urine Total 50 ml 0 ml 0 ml 0 ml Stool Total 0 ml 0 ml Hemodialysis 3000 ml # Bowel Movements 0 Result Diagram: 08/07/16 0420 08/08/16 1737 Objective Remarks GENERAL: Morbidly obese female, on ventimask. CARDIOVASCULAR: Normal rate and regular rhythm without murmurs, gallops, or rubs. RESPIRATORY: Some diffuse rhonchi. Otherwise diminished breath sounds bilaterally at the bases. No wheezing. GASTROINTESTINAL: Abdomen soft, non-tender, non-distended. Normal active bowel sounds MUSCULOSKELETAL: Extremities without cyanosis, or edema. NEURO: Alert & Oriented to self. Follow commands. Normal speech PSYCH: Appropriate mood and affect. Date of Insertion: Jul 23, 2016 Line: Central Venous Catheter Side: Left Location: Internal, Jugular A/P Problem List: (1) Acute exacerbation of CHF (congestive heart failure) ICD Code: I50.9 Status: Acute (2) Stage 4 chronic kidney disease ICD Code: N18.4 Status: Acute (3) Elevated troponin ICD Code: R79.89 Status: Acute (4) HTN (hypertension) ICD Code: I10 Status: Chronic (5) Diabetes ICD Code: E11.9 Status: Chronic Assessment and Plan 50 y/o female with a medical history significant for CHF, depression, HTN, dm, and ckd with prolonged hospital stay secondary to recurrent intubation, status post cardiac arrest. Patient currently still in the ICU. Acute respiratory failure: Likely a combination of renal failure, diastolic heart failure, pulmonary edema, possible COPD, HCAP with MRSA in the sputum. Patient has been intubated about 3 times during this hospitalization. Currently on BiPAP at night and as needed. - Appreciate pulmonology following. On prednisone. bipap per Pulmonology - Infectious disease following. Status post Rocephin and Zyvox. Antibiotics discontinued. Monitor patient off antibiotic. - Patient currently on nasal cannula with bipap at night. She can be transferred to the floor once stable on Nasal canula. BRENDA RN. Acute on chronic kidney disease: Now on dialysis.. -Appreciate nephrology following. Most likely advanced diabetic nephropathy. Status post Vas-Cath placement. Dialysis per nephrology. Follow-up BMP in a.m. Encephalopathy: Secondary to multiple comorbid conditions above. Anoxic injury also possibility. Continue to follow. CHF: Echocardiogram 05/21 revealed EF 50%. Mildly dilated ventricle. Diffuse hypokinesis. Echocardiogram 07/23 reveals EF 45-50%. No regional motion abnormality. POOL 59 mmHg. Mild TR. - Continue Coreg, lisinopril. Followed by cardiology. Troponin likely due to fluid overloaded state per Cards. previous stress test showing mild small lateral wall defect. Severe deconditioning: Secondary to above comorbidities. Need to mobilize patient. Consult PT. Hypertension: Resistant, difficult to control. On Coreg 25mg BID, hydralazine 100mg TID, lisinopril 20 daily Continue atorvastatin 80 mg daily's for dyslipidemia. - Attempt to wean off Cardene drip. Cont Nifedipine. Diabetes mellitus: - Continue sliding scale insulin with Accu-Chek Anemia: Currently on iron sulfate 325mg PO twice a day/home medication. Monitor CBC. Transfuse for hemoglobin less than 7 GI prophylaxis: Stool softener PRN constipation. DVT PPx: SCDs/Heparin Problem Qualifiers (1) Acute exacerbation of CHF (congestive heart failure): Qualified Code: I50.9 - Acute on chronic congestive heart failure, unspecified congestive heart failure type (2) HTN (hypertension): Qualified Code: I10 - Essential hypertension (3) Diabetes: Carey Coombs MD Aug 08, 2016 16:32
[2016-08-08] MEDS: hydrALAZINE HCL 20 MG/ML VIAL IV PUSH PRN ×2 (17:33→23:01)
[2016-08-08 19:22] LABS: AUTOMATED NEUTROPHIL # 6.2 TH/MM3 (1.8-7.7); BASOPHIL % 0.4 % (0.0-2.0); EOSINOPHIL % 0.3 % (0.0-4.0); HEMATOCRIT 28.3 % (35.0-46.0); LYMPH % 6.4 % (9.0-44.0); LYMPHOCYTE # 0.5 TH/MM3 (1.0-4.8); MEAN CELL VOLUME 71.5 FL (80.0-100.0); MEAN CORPUSCULAR HEMOGLOBIN 22.7 PG (27.0-34.0); MEAN CORPUSCULAR HGB CONC 31.7 % (32.0-36.0); MONO % 5.8 % (0.0-8.0); NEUT % 87.1 % (16.0-70.0); PLATELET COUNT 129 TH/MM3 (150-450); RED BLOOD COUNT 3.95 MIL/MM3 (4.00-5.30); RED CELL DISTRIBUTION WIDTH 19.1 % (11.6-17.2); WHITE BLOOD COUNT 7.1 TH/MM3 (4.0-11.0)
[2016-08-08 19:29] LABS: HEMO FLAGS AUTO DIFF
[2016-08-08 20:04] LABS: OVALOCYTES 1+ (NORMAL); SCAN/DIFF AUTO DIFF CONFIRMED
[2016-08-08] MEDS: ATORVASTATIN 80 MG TAB PO SCH (21:11)
[2016-08-09] VITALS (18 sets, daily range): BP systolic 156–172; BP diastolic 67–80; PULSE 60–67; RESP 19–28; TEMP 97.9–98.4; O2SAT 93–97
[2016-08-09] MEDS: cloNIDine HCL 0.1 MG TAB PO PRN (02:51)
[2016-08-09] MEDS: CHLORHEXIDINE GLUCONATE 2 % 1 PACK (2 CLOTHS) TOP SCH (04:05)
[2016-08-09 04:31] LABS: MEAN CELL VOLUME 71.4 FL (80.0-100.0); MEAN CORPUSCULAR HEMOGLOBIN 22.2 PG (27.0-34.0); MEAN CORPUSCULAR HGB CONC 31.1 % (32.0-36.0); PLATELET COUNT 129 TH/MM3 (150-450); RED BLOOD COUNT 4.06 MIL/MM3 (4.00-5.30); RED CELL DISTRIBUTION WIDTH 19.1 % (11.6-17.2); WHITE BLOOD COUNT 6.3 TH/MM3 (4.0-11.0)
[2016-08-09 04:40] LABS: REVIEW FLAG FINAL
[2016-08-09 04:55] LABS: POTASSIUM 4.2 MEQ/L (3.5-5.1)
[2016-08-09] MEDS: cloNIDine HCL 0.1 MG TAB PO SCH ×3 (05:14→21:09)
[2016-08-09] MEDS: hydrALAZINE HCL 50 MG TAB PO SCH ×3 (05:14→21:09)
[2016-08-09] MEDS: NIFEdipine 20 MG CAP PO SCH ×3 (05:14→21:09)
[2016-08-09] MEDS: INSULIN NovoLIN REGULAR SUPPLEMENTAL SCALE SQ SCH ×4 (05:49→23:53)
[2016-08-09] MEDS: CHLORHEXIDINE 0.12% (ORAL KIT) 15 ML CUP MT SCH ×2 (08:00→20:00)
[2016-08-09] MEDS: MUPIROCIN 2% OINT 1 APPLIC/GM SYR EACH NARE SCH ×2 (09:00→21:08)
[2016-08-09] MEDS: FERROUS SULFATE 300 MG /5ML UDC PO SCH ×2 (09:07→21:08)
[2016-08-09] MEDS: PANTOPRAZOLE SODIUM 40 MG VIAL IV SCH (09:07)
[2016-08-09] MEDS: SODIUM CHLORIDE 0.9% FLUSH 5 ML FLUSH IVF SCH ×3 (09:07→21:10)
[2016-08-09] MEDS: predniSONE 10 MG TAB PO SCH (09:08)
[2016-08-09] MEDS: LISINOPRIL 20 MG TAB PO SCH (09:08)
[2016-08-09] MEDS: SENNOSIDES 8.6 MG TAB PO SCH ×2 (09:08→21:09)
[2016-08-09] MEDS: HEPARIN SODIUM - SQ 10,000 UNITS/ML VIAL SQ SCH ×2 (09:08→21:09)
[2016-08-09] MEDS: DOCUSATE SODIUM 100 MG CAP PO SCH ×2 (09:08→21:09)
[2016-08-09] MEDS: ASPIRIN 81 MG CHEW TAB PO SCH (09:09)
[2016-08-09] MEDS: CARVEDILOL 12.5 MG TAB PO SCH ×2 (09:09→21:09)
[2016-08-09] MEDS: GABAPENTIN 300 MG CAP PO SCH ×2 (09:13→21:09)
[2016-08-09] MEDS: hydrALAZINE HCL 20 MG/ML VIAL IV PUSH PRN ×2 (12:13→14:42)
--- NOTE | 2016-08-09 12:43 | HHI.NPPN ---
Subjective History of Present Illness 50 year old with CKD 4/5 Diabetes Nephrotic range proteinuria Additional Remarks Patient on O2 alert, Review of Systems General Constitutional: Fatigue Cardiovascular Cardiac: Edema Objective Data Data 08/08/16 08/09/16 19:00 07:00 Intake Total 340 ml 480 ml Output Total 3000 ml 85 ml Balance -2660 ml 395 ml Intake Oral 240 ml 480 ml Albumin 100 ml Output Urine Total 85 ml Stool Total 0 ml Hemodialysis 3000 ml Vital Signs Date Time Temp Pulse Resp B/P Pulse Ox O2 Delivery O2 Flow Rate FiO2 08/09/16 12:00 98.1 60 19 172/77 94 08/09/16 12:00 60 08/09/16 10:45 96 Nasal Cannula 4.00 08/09/16 10:00 60 08/09/16 09:05 96 Venturi Mask 50 08/09/16 08:00 64 08/09/16 08:00 97.9 64 28 162/67 94 08/09/16 07:00 93 Venturi Mask 50 08/09/16 06:00 63 08/09/16 04:00 98.4 61 20 163/75 95 08/09/16 04:00 61 08/09/16 03:28 96 40 08/09/16 02:00 61 08/09/16 00:42 95 40 08/09/16 00:01 97 40 08/09/16 00:00 64 08/09/16 00:00 98.3 64 25 172/80 93 08/08/16 22:00 64 08/08/16 21:15 95 Venturi Mask 6.00 50 08/08/16 20:00 98.4 65 29 160/74 93 08/08/16 20:00 65 08/08/16 19:00 96 Venturi Mask 10.00 50 08/08/16 18:00 87 08/08/16 16:00 98.4 64 30 156/75 94 08/08/16 16:00 64 08/08/16 14:00 66 -: 08/09/16 0335 08/09/16 0335 Physical Exam General Appearance: Obese Throat Throat Exam: Oral Mucosa [place] & Moist Neck Neck Exam: Neck Supple Pulmonary Resp Exam: Rhonchi, Decreased Bases, Diminished Breath Sounds Cardiology CV Exam: Regular, Normal Sinus Rhythm Gastrointestinal/Abdomen GI Exam: Soft, Non-Tender, Distended Extremeties Extremities Exam: Pitting Edema, Dependent Edema Neurologic Neuro Exam: Sedated Assessment/Plan Problem List: (1) ESRD (end stage renal disease) on dialysis Plan: kidney failure due to advance diabetic nephropathy need continuous churn buttermaker plans AVF Placement discussed need Merged with [facility] Dr. Medley stated he will follow the patient from weekend I will transfer her care I will sign out to him to follow from Sat onwards. (2) Stage 4 chronic kidney disease Plan: Patient with advanced kidney disease and had the workup in May. 10 g of proteinuria Most likely has advance Diabetic Nephropathy. continue HD tomorrow (3) Hypoventilation associated with obesity syndrome Plan: critical care following (4) Nephrotic syndrome Plan: Protein to creatinine ratio above 10 10.52 (5) Acute exacerbation of CHF (congestive heart failure) Plan: This is likely due to chronic kidney disease and diastolic dysfunction (6) Diabetes Plan: Advance manifestations diabetic nephropathy, retinopathy and neuropathy (7) HTN (hypertension) Plan: Continue to monitor on PRN hydralazine Problem Qualifiers (1) Acute exacerbation of CHF (congestive heart failure): Qualified Code: I50.9 - Acute on chronic congestive heart failure, unspecified congestive heart failure type (2) Diabetes: (3) HTN (hypertension): Qualified Code: I10 - Essential hypertension Ebony Garcia MD Aug 09, 2016 12:43
--- NOTE | 2016-08-09 12:51 | HHI.PR ---
Subjective Remarks On O2 4 L N/C today. Used Bipap at HS No chest pain. More alert . still in bed. Had dialysis Objective Vital Signs Date Time Temp Pulse Resp B/P Pulse Ox O2 Delivery O2 Flow Rate FiO2 08/09/16 12:00 98.1 60 19 172/77 94 08/09/16 12:00 60 08/09/16 10:45 96 Nasal Cannula 4.00 08/09/16 10:00 60 08/09/16 09:05 96 Venturi Mask 50 08/09/16 08:00 64 08/09/16 08:00 97.9 64 28 162/67 94 08/09/16 07:00 93 Venturi Mask 50 08/09/16 06:00 63 08/09/16 04:00 98.4 61 20 163/75 95 08/09/16 04:00 61 08/09/16 03:28 96 40 08/09/16 02:00 61 08/09/16 00:42 95 40 08/09/16 00:01 97 40 08/09/16 00:00 64 08/09/16 00:00 98.3 64 25 172/80 93 08/08/16 22:00 64 08/08/16 21:15 95 Venturi Mask 6.00 50 08/08/16 20:00 98.4 65 29 160/74 93 08/08/16 20:00 65 08/08/16 19:00 96 Venturi Mask 10.00 50 08/08/16 18:00 87 08/08/16 16:00 98.4 64 30 156/75 94 08/08/16 16:00 64 08/08/16 14:00 66 I/O 08/08/16 08/08/16 08/08/16 08/09/16 08/09/16 08/09/16 07:00 15:00 23:00 07:00 15:00 23:00 Intake Total 240 ml 340 ml 480 ml Output Total 0 ml 3000 ml 60 ml 25 ml Balance 240 ml -2660 ml 420 ml -25 ml Intake Oral 240 ml 240 ml 480 ml Albumin 100 ml Output Urine Total 0 ml 60 ml 25 ml Stool Total 0 ml 0 ml 0 ml Hemodialysis 3000 ml Result Diagram: 08/09/16 0335 08/09/16 0335 Objective Remarks General: This is a very obese middle-aged lady who is alert . HEENT: Head normocephalic. Pupils are reactive. Tongue is moist. Throat is clear. Nasal mucosa clear Neck: Supple. Mild JVD. No lymphadenopathy. Trachea midline. Chest: Distant breath sounds with , prolonged expirations, and occ crackles at the lung bases. Heart: The heart sounds are regular. S1 and S2. No definite murmur. No S3. Abdomen: Soft, protuberant. No mass, no organomegaly or tenderness. Bowel sounds are active. Extremities: Decreased peripheral pulses. 1+ leg edema. Neurologic: responsive. Reflexes 1 +. No deficits Rectal: Exam deferred. Skin: Scaly, dry and warm. Assessment and Plan Assessment and Plan . IMPRESSION 1. CHF with acute exacerbation. 2. Possible obstructive sleep apnea syndrome. 3. Hypertension. 4. Elevated troponin. 5. Diabetes mellitus type 2. 6. S/P respiratory Arrest. Plan : 1. Wean O2 to N/C 3L. 2. Cont Bipap at HS from 9 PM to 6 AM 12/5 , FIo2 30 % 3. Nebs qid , duoneb. 4. BMP ,CBC in am 5. Reduce prednisone 10 mg daily. 6. IS at bedside qid. 7. Dialysis every other day. 8. PT evaluation for activity. Sheela Lau MD Aug 09, 2016 12:51
--- NOTE | 2016-08-09 13:58 | HHI.PR ---
Subjective Remarks Patient reports that she is feeling okay. She wished she could just get out of bed. On 4 L nasal cannula. Objective Vitals Vital Signs Date Time Temp Pulse Resp B/P Pulse Ox O2 Delivery O2 Flow Rate FiO2 08/09/16 12:00 98.1 60 19 172/77 94 08/09/16 12:00 60 08/09/16 10:45 96 Nasal Cannula 4.00 08/09/16 10:00 60 08/09/16 09:05 96 Venturi Mask 50 08/09/16 08:00 64 08/09/16 08:00 97.9 64 28 162/67 94 08/09/16 07:00 93 Venturi Mask 50 08/09/16 06:00 63 08/09/16 04:00 98.4 61 20 163/75 95 08/09/16 04:00 61 08/09/16 03:28 96 40 08/09/16 02:00 61 08/09/16 00:42 95 40 08/09/16 00:01 97 40 08/09/16 00:00 64 08/09/16 00:00 98.3 64 25 172/80 93 08/08/16 22:00 64 08/08/16 21:15 95 Venturi Mask 6.00 50 08/08/16 20:00 98.4 65 29 160/74 93 08/08/16 20:00 65 08/08/16 19:00 96 Venturi Mask 10.00 50 08/08/16 18:00 87 08/08/16 16:00 98.4 64 30 156/75 94 08/08/16 16:00 64 08/08/16 14:00 66 I/O 08/08/16 08/08/16 08/08/16 08/09/16 08/09/16 08/09/16 07:00 15:00 23:00 07:00 15:00 23:00 Intake Total 240 ml 340 ml 480 ml Output Total 0 ml 3000 ml 60 ml 25 ml Balance 240 ml -2660 ml 420 ml -25 ml Intake Oral 240 ml 240 ml 480 ml Albumin 100 ml Output Urine Total 0 ml 60 ml 25 ml Stool Total 0 ml 0 ml 0 ml Hemodialysis 3000 ml Result Diagram: 08/09/16 0335 08/09/16 0335 Objective Remarks GENERAL: Morbidly obese female, no acute distress. CARDIOVASCULAR: Normal rate and regular rhythm without murmurs, gallops, or rubs. RESPIRATORY: Some diffuse rhonchi. Otherwise diminished breath sounds bilaterally at the bases. No wheezing. GASTROINTESTINAL: Abdomen soft, non-tender, non-distended. Normal active bowel sounds MUSCULOSKELETAL: Extremities without cyanosis, or edema. NEURO: Alert & Oriented to self. Follow commands. Normal speech PSYCH: Appropriate mood and affect. Date of Insertion: Jul 23, 2016 Line: Central Venous Catheter Side: Left Location: Internal, Jugular A/P Problem List: (1) Acute exacerbation of CHF (congestive heart failure) ICD Code: I50.9 Status: Acute (2) Stage 4 chronic kidney disease ICD Code: N18.4 Status: Acute (3) Elevated troponin ICD Code: R79.89 Status: Acute (4) HTN (hypertension) ICD Code: I10 Status: Chronic (5) Diabetes ICD Code: E11.9 Status: Chronic Assessment and Plan 50 y/o female with a medical history significant for CHF, depression, HTN, dm, and ckd with prolonged hospital stay secondary to recurrent intubation, status post cardiac arrest. Patient currently still in the ICU and slowly improving. Acute respiratory failure: Likely a combination of renal failure, diastolic heart failure, pulmonary edema, possible COPD, HCAP with MRSA in the sputum. Patient has been intubated about 3 times during this hospitalization. Currently on BiPAP at night and as needed. - Appreciate pulmonology following. On prednisone. bipap per Pulmonology - Infectious disease following. Status post Rocephin and Zyvox. Antibiotics discontinued. Monitor patient off antibiotic. - Patient currently on nasal cannula with bipap as needed. She can be transferred to the floor once stable on Nasal canula. BRENDA RN. Acute on chronic kidney disease: Now on dialysis.. -Appreciate nephrology following. Most likely advanced diabetic nephropathy. Status post Vas-Cath placement. Dialysis per nephrology. Follow-up BMP in a.m. Encephalopathy: Secondary to multiple comorbid conditions above. Anoxic injury also possibility. Continue to follow. CHF: Echocardiogram 05/21 revealed EF 50%. Mildly dilated ventricle. Diffuse hypokinesis. Echocardiogram 07/23 reveals EF 45-50%. No regional motion abnormality. POOL 59 mmHg. Mild TR. - Continue Coreg, lisinopril. Previously followed by cardiology. Troponin likely due to fluid overloaded state per Cards. previous stress test showing mild small lateral wall defect. Severe deconditioning: Secondary to above comorbidities. Need to mobilize patient. PT following blood respiratory status limit therapy. Hypertension: Resistant, difficult to control. On Coreg 25mg BID, hydralazine 100mg TID, lisinopril 20 daily Continue atorvastatin 80 mg daily's for dyslipidemia. Cont Nifedipine. Diabetes mellitus: - Continue sliding scale insulin with Accu-Chek Anemia: Currently on iron sulfate 325mg PO twice a day/home medication. Monitor CBC. Transfuse for hemoglobin less than 7 GI prophylaxis: Stool softener PRN constipation. DVT PPx: SCDs/Heparin Problem Qualifiers (1) Acute exacerbation of CHF (congestive heart failure): Qualified Code: I50.9 - Acute on chronic congestive heart failure, unspecified congestive heart failure type (2) HTN (hypertension): Qualified Code: I10 - Essential hypertension (3) Diabetes: Carey Coombs MD Aug 09, 2016 13:58
--- NOTE | 2016-08-09 17:46 | PD.VS.CON ---
History of Present Illness Chief Complaint: need for HD Consult Requested by: Nephrology History of Present Illness Worsening renal insufficiency requiring hemodialysis. Past/Family/Social History Past Medical History diabetes Hypertension COPD CHF Past Surgical History Social History Does not smoke. Home Medications Active Scripts Bumetanide (Bumex)1 Mg Tab1 Mg PO BID #60 TAB Ref 0 Prov:Ninoska Boone MD 06/03/16 Ferrous Sulfate 325 Mg [id number] Mg PO BID #60 TAB Ref 0 Prov:Ninoska Boone MD 06/03/16 Amlodipine (Norvasc)10 Mg Tab10 Mg PO DAILY #30 TAB Prov:Ninoska Boone MD 06/03/16 Oxygen tank 1 Ea Tank #1 Liter [email or web address] Continuous Oxygen Concentrator Portable Gaseous 2 L/min via Nasal Cannula Continuous For 99 months Prov:Ninoska Boone MD 06/02/16 Reported Medications Insulin Lispro (Human) Inj (Humalog Inj)1,000 Unit/10 Ml Vial12 Units SQ BID # 1 VIAL Ref 0 05/27/16 Insulin Glargine Inj (Lantus Inj)1,000 Unit/10 Ml Vial40 Units SQ DAILYAC Ref 0 05/27/16 Famotidine (Pepcid)40 Mg Tab40 Mg PO DAILY #60 TAB Ref 0 05/27/16 Nitroglycerin SL 0.4 Mg Subl0.4 Mg SL DIRECTED PRN (CHEST PAIN) #100 TAB.SL Ref 0 ONE TABLET UNDER THE TONGUE NEEDED FOR CHEST PAIN, MAY REPEAT EVERY FIVE MINUTES FOR A TOTAL OF 3 DOSES OR CALL 911 IF NO RELIEF 05/27/16 Hydralazine 50 Mg Tab50 Mg PO TID Ref 0 Take with a meal 05/27/16 Gabapentin 300 Mg [id number] Mg PO TID #90 CAP Ref 0 05/27/16 Atorvastatin 80 Mg Tab80 Mg PO HS #30 TAB Ref 0 05/27/16 Glipizide ER (Glipizide XL)2.5 Mg Taber2.5 Mg PO DAILY #30 TAB Ref 0 Take with breakfast or first main meal of the day 05/27/16 Amitriptyline 50 Mg Tab50 Mg PO HS 05/27/16 Carvedilol 25 Mg Tab25 Mg PO BID #60 TAB Ref 0 05/27/16 Alprazolam (Xanax)0.25 Mg Tab0.25 Mg PO BID PRN (ANXIETY) Ref 0 05/27/[address] (Aspirin EC)81 Mg Tabdr81 Mg PO DAILY Ref 0 05/27/16 Ergocalciferol (Drisdol)50,000 Unit Cap50,000 Units PO Q7D ON TUESDAYS #30 CAP Ref 0 05/27/16 Coded Allergies: Lyrica (Verified Allergy, Severe, Anaphylaxis, 07/15/16) *MDRO Multi-Drug Resistant Organism (Verified Adverse Reaction, Unknown, ) MRSA (sputum)-07/20/16 MRSA PCR Screen POSITIVE - 07/18/2016 Physical Exam Vitals/I&O Date Time Temp Pulse Resp B/P Pulse Ox O2 Delivery O2 Flow Rate FiO2 08/09/16 16:00 98.2 62 20 156/76 97 08/09/16 16:00 62 08/09/16 14:00 62 08/09/16 12:00 98.1 60 19 172/77 94 08/09/16 12:00 60 08/09/16 10:45 96 Nasal Cannula 4.00 08/09/16 10:00 60 08/09/16 09:05 96 Venturi Mask 50 08/09/16 08:00 64 08/09/16 08:00 97.9 64 28 162/67 94 08/09/16 07:00 93 Venturi Mask 50 08/09/16 06:00 63 08/09/16 04:00 98.4 61 20 163/75 95 08/09/16 04:00 61 08/09/16 03:28 96 40 08/09/16 02:00 61 08/09/16 00:42 95 40 08/09/16 00:01 97 40 08/09/16 00:00 64 08/09/16 00:00 98.3 64 25 172/80 93 08/08/16 22:00 64 08/08/16 21:15 95 Venturi Mask 6.00 50 08/08/16 20:00 98.4 65 29 160/74 93 08/08/16 20:00 65 08/08/16 19:00 96 Venturi Mask 10.00 50 08/08/16 18:00 87 08/09/16 08/09/16 08/09/16 07:00 15:00 23:00 Intake Total 750 ml Output Total 25 ml 50 ml Balance -25 ml 700 ml Neuro: CN2-12 intact. Lungs: decreased at base Abdomen: protuberant but soft. Vascular: palpable radial pulses bilaterally. Extremities: warm. Laboratory Tests Test 08/08/16 08/09/16 18:45 03:35 White Blood Count 7.1 6.3 Red Blood Count 3.95 4.06 Hemoglobin 9.0 9.0 Hematocrit 28.3 29.0 Mean Corpuscular Volume 71.5 71.4 Mean Corpuscular Hemoglobin 22.7 22.2 Mean Corpuscular Hemoglobin 31.7 31.1 Concent Red Cell Distribution Width 19.1 19.1 Platelet Count 129 129 Mean Platelet Volume 9.5 9.5 Neutrophils (%) (Auto) 87.1 Lymphocytes (%) (Auto) 6.4 Monocytes (%) (Auto) 5.8 Eosinophils (%) (Auto) 0.3 Basophils (%) (Auto) 0.4 Neutrophils # (Auto) 6.2 Lymphocytes # (Auto) 0.5 Monocytes # (Auto) 0.4 Eosinophils # (Auto) 0.0 Basophils # (Auto) 0.0 CBC Comment AUTO DIFF Differential Comment AUTO DIFF CONFIRMED Ovalocytes 1+ Sodium Level 136 Potassium Level 4.2 Chloride Level 100 Carbon Dioxide Level 25.0 Anion Gap 11 Blood Urea Nitrogen 54 Creatinine 5.18 Estimat Glomerular Filtration 9 Rate Random Glucose 252 Calcium Level 8.4 Assessment and Plan Assessment: (1) Stage 4 chronic kidney disease Status: Acute Plan 50 year old female with renal insufficiency. Need for HD. Patient is right hand dominant with IV and bruising in right arm. Will get vein mapping for future possible avf before discharge but awaiting transfer out of ICU. Adam Zamorano DO,FACS Labor Relations Analyst of Vascular Surgery ALEX/Adam Fuentes DO Aug 09, 2016 17:46
[2016-08-09] MEDS: RESP: ALBUTEROL 2.5 MG/IPRATROPIUM 0.5 MG NEB (SCH) NEB ×2 (17:52→21:14)
[2016-08-09] MEDS: ATORVASTATIN 80 MG TAB PO SCH (21:09)
--- NOTE | 2016-08-09 21:33 | RADRPT ---
EXAM DATE/TIME: 08/09/2016 19:54 [facility] COMPARISON: US ARM BILATERAL VENOUS DOPPLER, June 02, 2016, 15:15. INDICATIONS : Arteriovenous fistula access placement. MEDICAL HISTORY : Congestive heart failure. Hypercholesterolemia. Hypertension. Abdominal pain. Renal failure. Diabetes . Gait problems. Anxiety. MRSA. SURGICAL HISTORY : Coronary artery stent. section. Blood transfusions. ENCOUNTER: Initial ACUITY: 1 day PAIN SCORE: 0/10 LOCATION: Bilateral arm. FINDINGS: RIGHT UPPER EXTREMITY: There is spontaneous flow documented in the brachial, basilic, cephalic, axillary, and subclavian vei ns. The vessels are compressible and augmentation response is documented. No filling defects are se en. The flow is phasic with respiration. Direction of flow in the jugular vein is caudal. LEFT UPPER EXTREMITY: Short segment thrombus seen in the cephalic vein at the level of the mid forearm. CONCLUSION: Focally thrombosed cephalic vein on the left. No upper extremity thrombus on the right. Adolfo Roman MD on August 09, 2016 at 21:30 Board Certified Radiologist. This report was verified electronically.
--- NOTE | 2016-08-09 21:35 | RADRPT ---
EXAM DATE/TIME: 08/09/2016 20:06 [facility] COMPARISON: US ARM BILATERAL VENOUS DOPPLER, August 09, 2016, 19:54. INDICATIONS : Arteriovenous fistula access placement. MEDICAL HISTORY : Congestive heart failure. Hypercholesterolemia. Hypertension. Abdominal pain. Renal failure. Diabetes . Gait problems. Anxiety. MRSA. SURGICAL HISTORY : Coronary artery stent. section. Blood transfusions. ENCOUNTER: Initial ACUITY: 1 day PAIN SCORE: 0/10 LOCATION: Bilateral arm. CEPHALIC: ORIGIN: Right 4 mm Left 6 mm MID-ARM: Right 4 mm Left 5 mm ELBOW: Right 4 mm Left 5 mm FOREARM: Right 4 mm Left 4 mm WRIST: Right 2 mm Left 1 mm BASILIC: ORIGIN: Right 6 mm Left 4 mm MID-ARM: Right 6 mm Left 4 mm ELBOW: Right 5 mm Left 5 mm ARTERIES: BRACHIAL: Right 5 mm Left 4 mm ULNAR: Right 2 mm Left 2 mm RADIAL: Right 2 mm Left 2 mm VEINS: RADIAL: Right 1 mm Left 1 mm ULNAR: Right 1 mm Left 1 mm FINDINGS: Short segment thrombus in the left cephalic vein. The venous system of the upper extremities are othe rwise patent by color Doppler imaging. Measurements of the arm veins (in mm) are listed above. CONCLUSION: Bilateral upper extremity venous mapping as above. Of note, upper extremity Doppler study done at the same time shows short segment thrombus of the left cephalic vein and please refer to the Doppler ult rasound report. Adolfo Roman MD on August 09, 2016 at 21:32 Board Certified Radiologist. This report was verified electronically.
[2016-08-10] VITALS (13 sets, daily range): BP systolic 138–175; BP diastolic 64–97; PULSE 54–62; RESP 15–20; TEMP 96–98.2; O2SAT 96–100
[2016-08-10] MEDS: INSULIN NovoLIN REGULAR SUPPLEMENTAL SCALE SQ SCH ×4 (04:54→22:07)
[2016-08-10] MEDS: CHLORHEXIDINE GLUCONATE 2 % 1 PACK (2 CLOTHS) TOP SCH (05:43)
[2016-08-10] MEDS: hydrALAZINE HCL 50 MG TAB PO SCH ×3 (05:47→21:11)
[2016-08-10] MEDS: NIFEdipine 20 MG CAP PO SCH ×3 (05:47→21:11)
[2016-08-10] MEDS: cloNIDine HCL 0.1 MG TAB PO SCH ×3 (05:47→21:11)
[2016-08-10] MEDS: CHLORHEXIDINE 0.12% (ORAL KIT) 15 ML CUP MT SCH ×2 (08:00→20:00)
[2016-08-10] MEDS: HEPARIN SODIUM - IV 10,000 UNITS/10 ML VIAL PRN (08:20)
[2016-08-10] MEDS: EPOETIN ALFA 10,000 UNITS/ML VIAL IV PRN (08:20)
[2016-08-10] MEDS: GENTAMICIN SULFATE (DIALYSIS USE ONLY) 20 MG/2 ML VIAL IV PRN (08:20)
[2016-08-10] MEDS: SODIUM CHLOR 0.9% 1000 ML INJ 1,000 ML IV PRN (08:21)
[2016-08-10] MEDS: RESP: ALBUTEROL 2.5 MG/IPRATROPIUM 0.5 MG NEB (SCH) NEB ×4 (08:49→20:21)
[2016-08-10] MEDS: SODIUM CHLORIDE 0.9% FLUSH 5 ML FLUSH IVF SCH ×3 (09:00→22:07)
[2016-08-10] MEDS: SENNOSIDES 8.6 MG TAB PO SCH ×2 (10:37→21:11)
[2016-08-10] MEDS: GABAPENTIN 300 MG CAP PO SCH ×2 (10:37→21:11)
[2016-08-10] MEDS: MUPIROCIN 2% OINT 1 APPLIC/GM SYR EACH NARE SCH ×2 (10:37→21:11)
[2016-08-10] MEDS: predniSONE 10 MG TAB PO SCH (10:37)
[2016-08-10] MEDS: ASPIRIN 81 MG CHEW TAB PO SCH (10:37)
[2016-08-10] MEDS: CARVEDILOL 12.5 MG TAB PO SCH ×2 (10:37→21:11)
[2016-08-10] MEDS: FERROUS SULFATE 300 MG /5ML UDC PO SCH ×2 (10:38→21:11)
[2016-08-10] MEDS: PANTOPRAZOLE SODIUM 40 MG VIAL IV SCH (10:38)
[2016-08-10] MEDS: DOCUSATE SODIUM 100 MG CAP PO SCH ×2 (10:38→21:11)
[2016-08-10] MEDS: LISINOPRIL 20 MG TAB PO SCH (10:39)
[2016-08-10] MEDS: HEPARIN SODIUM - SQ 10,000 UNITS/ML VIAL SQ SCH ×2 (10:39→21:12)
[2016-08-10] MEDS: hydrALAZINE HCL 20 MG/ML VIAL IV PUSH PRN (12:22)
[2016-08-10] MEDS: cloNIDine HCL 0.1 MG TAB PO PRN (12:34)
--- NOTE | 2016-08-10 15:11 | HHI.PR ---
Subjective Remarks Patient reports that she is doing okay. Still somewhat confused. Blood pressure still uncontrolled requiring IV hydralazine. No increased shortness of breath. No chest pain. Objective Vitals Vital Signs Date Time Temp Pulse Resp B/P Pulse Ox O2 Delivery O2 Flow Rate FiO2 08/10/16 12:00 96.6 59 18 175/93 99 08/10/16 12:00 59 08/10/16 08:49 99 Nasal Cannula 3.00 08/10/16 08:00 57 08/10/16 08:00 100 Nasal Cannula 3.00 08/10/16 08:00 96.0 57 15 138/64 100 08/10/16 06:00 58 08/10/16 04:00 60 08/10/16 04:00 98.2 60 18 170/89 97 08/10/16 02:00 58 08/10/16 00:13 99 40 08/10/16 00:00 98.2 58 17 168/83 97 08/10/16 00:00 60 08/09/16 22:00 60 08/09/16 21:15 93 Nasal Cannula 3.00 08/09/16 20:00 98.2 66 20 160/69 96 08/09/16 20:00 67 08/09/16 19:00 96 Nasal Cannula 4.00 08/09/16 18:00 62 08/09/16 16:00 98.2 62 20 156/76 97 08/09/16 16:00 62 I/O 08/09/16 08/09/16 08/09/16 08/10/16 08/10/16 08/10/16 07:00 15:00 23:00 07:00 15:00 23:00 Intake Total 750 ml 240 ml 240 ml 240 ml Output Total 25 ml 50 ml 50 ml 100 ml 75 ml Balance -25 ml 700 ml 190 ml 140 ml 165 ml Intake Oral 750 ml 240 ml 240 ml 240 ml Output Urine Total 25 ml 50 ml 50 ml 100 ml 75 ml Stool Total 0 ml 0 ml 0 ml # Bowel Movements 0 Result Diagram: 08/09/16 0335 08/09/16 0335 Objective Remarks GENERAL: Morbidly obese female, no acute distress. CARDIOVASCULAR: Normal rate and regular rhythm without murmurs, gallops, or rubs. RESPIRATORY: Diminished breath sounds bilaterally at the bases. No wheezing. GASTROINTESTINAL: Abdomen soft, non-tender, non-distended. Normal active bowel sounds MUSCULOSKELETAL: Extremities without cyanosis, or edema. NEURO: Alert & Oriented to self. Follow commands. Normal speech PSYCH: Appropriate mood and affect. Date of Insertion: Jul 23, 2016 Line: Central Venous Catheter Side: Left Location: Internal, Jugular A/P Problem List: (1) Acute exacerbation of CHF (congestive heart failure) ICD Code: I50.9 Status: Acute (2) Stage 4 chronic kidney disease ICD Code: N18.4 Status: Acute (3) Elevated troponin ICD Code: R79.89 Status: Acute (4) HTN (hypertension) ICD Code: I10 Status: Chronic (5) Diabetes ICD Code: E11.9 Status: Chronic Assessment and Plan 50 Y/O female with a medical history significant for CHF, depression, HTN, dm, and ckd with prolonged hospital stay secondary to recurrent intubation, status post cardiac arrest. Patient currently still in the ICU and slowly improving. Acute respiratory failure: Likely a combination of renal failure, diastolic heart failure, pulmonary edema, possible COPD, HCAP with MRSA in the sputum. Patient has been intubated about 3 times during this hospitalization. Currently on BiPAP at night and as needed. - Appreciate pulmonology following. On prednisone. bipap per Pulmonology - Infectious disease following. Status post Rocephin and Zyvox. Antibiotics discontinued. Monitor patient off antibiotic. - Patient currently on nasal cannula with bipap as needed. BRENDA RN. Acute on chronic kidney disease: Now on dialysis.. -Appreciate nephrology following. Most likely advanced diabetic nephropathy. Status post Vas-Cath placement. Dialysis per nephrology. Follow-up BMP in a.m. - Vascular surgery planning for aVF Encephalopathy: Secondary to multiple comorbid conditions above. Anoxic injury also possibility. Continue to follow. CHF: Echocardiogram 05/21 revealed EF 50%. Mildly dilated ventricle. Diffuse hypokinesis. Echocardiogram 07/23 reveals EF 45-50%. No regional motion abnormality. POOL 59 mmHg. Mild TR. - Continue Coreg, lisinopril. Previously followed by cardiology. Troponin likely due to fluid overloaded state per Cards. previous stress test showing mild small lateral wall defect. Severe deconditioning: Secondary to above comorbidities. Need to mobilize patient. PT following blood respiratory status limit therapy. Hypertension: Resistant, difficult to control. On Coreg 25mg BID, hydralazine 100mg TID, lisinopril 20 daily, clonidine 0.2 mg every 8 hours Continue atorvastatin 80 mg daily's for dyslipidemia. Cont Nifedipine. Continue hydralazine IV as needed. Diabetes mellitus: - Continue sliding scale insulin with Accu-Chek Anemia: Currently on iron sulfate 325mg PO twice a day/home medication. Monitor CBC. Transfuse for hemoglobin less than 7 GI prophylaxis: Stool softener PRN constipation. DVT PPx: SCDs/Heparin Problem Qualifiers (1) Acute exacerbation of CHF (congestive heart failure): Qualified Code: I50.9 - Acute on chronic congestive heart failure, unspecified congestive heart failure type (2) HTN (hypertension): Qualified Code: I10 - Essential hypertension (3) Diabetes: Carey Coombs MD Aug 10, 2016 15:11
--- NOTE | 2016-08-10 18:34 | HHI.PR ---
Subjective Remarks On O2 3 L N/C today. Did not use Bipap at HS More alert . Fell out of bed .Had dialysis Objective Vital Signs Date Time Temp Pulse Resp B/P Pulse Ox O2 Delivery O2 Flow Rate FiO2 08/10/16 16:00 96.0 54 20 156/77 96 08/10/16 16:00 54 08/10/16 12:00 96.6 59 18 175/93 99 08/10/16 12:00 59 08/10/16 08:49 99 Nasal Cannula 3.00 08/10/16 08:00 57 08/10/16 08:00 100 Nasal Cannula 3.00 08/10/16 08:00 96.0 57 15 138/64 100 08/10/16 06:00 58 08/10/16 04:00 60 08/10/16 04:00 98.2 60 18 170/89 97 08/10/16 02:00 58 08/10/16 00:13 99 40 08/10/16 00:00 98.2 58 17 168/83 97 08/10/16 00:00 60 08/09/16 22:00 60 08/09/16 21:15 93 Nasal Cannula 3.00 08/09/16 20:00 98.2 66 20 160/69 96 08/09/16 20:00 67 08/09/16 19:00 96 Nasal Cannula 4.00 I/O 08/09/16 08/09/16 08/09/16 08/10/16 08/10/16 08/10/16 07:00 15:00 23:00 07:00 15:00 23:00 Intake Total 750 ml 240 ml 240 ml 240 ml Output Total 25 ml 50 ml 50 ml 100 ml 75 ml Balance -25 ml 700 ml 190 ml 140 ml 165 ml Intake Oral 750 ml 240 ml 240 ml 240 ml Output Urine Total 25 ml 50 ml 50 ml 100 ml 75 ml Stool Total 0 ml 0 ml 0 ml # Bowel Movements 0 Result Diagram: 08/09/1633408/09/16334 Objective Remarks General: This is a very obese middle-aged lady who is alert . HEENT: Head normocephalic. Pupils are reactive. Tongue is moist. Throat is clear. Nasal mucosa clear Neck: Supple. Mild JVD. No lymphadenopathy. Trachea midline. Chest: Distant breath sounds and occ crackles at the lung bases. Heart: The heart sounds are regular. S1 and S2. No definite murmur. No S3. Abdomen: Soft, protuberant. No mass, no organomegaly or tenderness. Bowel sounds are active. Extremities: Decreased peripheral pulses. 1+ leg edema. Neurologic: responsive. Reflexes 1 +. No deficits Rectal: Exam deferred. Skin: Scaly, dry and warm. Assessment and Plan Assessment and Plan . IMPRESSION 1. CHF with acute exacerbation. 2. Possible obstructive sleep apnea syndrome. 3. Hypertension. 4. Elevated troponin. 5. Diabetes mellitus type 2. 6. S/P respiratory Arrest. Plan : 1. Wean O2 to N/C 2 L. 2. Cont Bipap at HS from 10 PM to 6 AM 12/5 , FIo2 28 % 3. Nebs qid , duoneb. 4. BMP ,CBC in am 5. Cont prednisone 10 mg daily. 6. IS at bedside qid. 7. Dialysis every other day. 8. PT evaluation for activity. Sheela Lau MD Aug 10, 2016 18:34
--- NOTE | 2016-08-10 19:26 | HHI.NPPN ---
Subjective History of Present Illness 50 year old with CKD 4/5 Diabetes Nephrotic range proteinuria Additional Remarks Patient on alert, no SOB, not in distress. Review of Systems General Constitutional: Fatigue Cardiovascular Cardiac: Edema Objective Data Data 08/09/16 08/10/16 19:00 07:00 Intake Total 750 ml 480 ml Output Total 50 ml 150 ml Balance 700 ml 330 ml Intake Oral 750 ml 480 ml Output Urine Total 50 ml 150 ml Stool Total 0 ml Vital Signs Date Time Temp Pulse Resp B/P Pulse Ox O2 Delivery O2 Flow Rate FiO2 08/10/16 16:00 96.0 54 20 156/77 96 08/10/16 16:00 54 08/10/16 12:00 96.6 59 18 175/93 99 08/10/16 12:00 59 08/10/16 08:49 99 Nasal Cannula 3.00 08/10/16 08:00 57 08/10/16 08:00 100 Nasal Cannula 3.00 08/10/16 08:00 96.0 57 15 138/64 100 08/10/16 06:00 58 08/10/16 04:00 60 08/10/16 04:00 98.2 60 18 170/89 97 08/10/16 02:00 58 08/10/16 00:13 99 40 08/10/16 00:00 98.2 58 17 168/83 97 08/10/16 00:00 60 08/09/16 22:00 60 08/09/16 21:15 93 Nasal Cannula 3.00 08/09/16 20:00 98.2 66 20 160/69 96 08/09/16 20:00 67 -: 08/09/16 0335 08/09/16 0335 Physical Exam General Appearance: No Acute Distress, Comfortable, Anxious, Obese Throat Throat Exam: Oral Mucosa [place] & Moist Neck Neck Exam: Neck Supple Pulmonary Resp Exam: Rhonchi, Decreased Bases, Diminished Breath Sounds Cardiology CV Exam: Regular, Normal Sinus Rhythm Gastrointestinal/Abdomen GI Exam: Soft, Non-Tender, Distended Extremeties Extremities Exam: Pitting Edema, Dependent Edema Neurologic Neuro Exam: Alert, Awake, Oriented Assessment/Plan Problem List: (1) ESRD (end stage renal disease) on dialysis Plan: kidney failure due to advance diabetic nephropathy need shelter plans AVF Placement discussed need Now has PermCath HD will be on Friday. (2) Stage 4 chronic kidney disease Plan: Patient with advanced kidney disease and had the workup in May. 10 g of proteinuria Most likely has advance Diabetic Nephropathy. continue HD tomorrow (3) Hypoventilation associated with obesity syndrome Plan: critical care following (4) Nephrotic syndrome Plan: Protein to creatinine ratio above 10 10.52 (5) Acute exacerbation of CHF (congestive heart failure) Plan: This is likely due to chronic kidney disease and diastolic dysfunction (6) Diabetes Plan: Advance manifestations diabetic nephropathy, retinopathy and neuropathy (7) HTN (hypertension) Plan: Continue to monitor on PRN hydralazine Problem Qualifiers (1) Acute exacerbation of CHF (congestive heart failure): Qualified Code: I50.9 - Acute on chronic congestive heart failure, unspecified congestive heart failure type (2) Diabetes: (3) HTN (hypertension): Qualified Code: I10 - Essential hypertension Mia Medley MD Aug 10, 2016 19:26 (3) HTN (hypertension): Qualified Code: I10 - Essential hypertension Mia Medley MD Aug 10, 2016 19:26
[2016-08-10] MEDS: ATORVASTATIN 80 MG TAB PO SCH (21:11)
[2016-08-11] VITALS (13 sets, daily range): BP systolic 145–194; BP diastolic 70–89; PULSE 59–65; RESP 12–30; TEMP 97.3–98.4; O2SAT 95–100
[2016-08-11] MEDS: hydrALAZINE HCL 20 MG/ML VIAL IV PUSH PRN ×4 (00:05→15:00)
[2016-08-11] MEDS: cloNIDine HCL 0.1 MG TAB PO PRN ×2 (03:07→18:01)
[2016-08-11] MEDS: CHLORHEXIDINE GLUCONATE 2 % 1 PACK (2 CLOTHS) TOP SCH (04:50)
[2016-08-11 05:35] LABS: HEMATOCRIT 28.2 % (35.0-46.0); MEAN CELL VOLUME 70.2 FL (80.0-100.0); MEAN CORPUSCULAR HEMOGLOBIN 22.6 PG (27.0-34.0); MEAN CORPUSCULAR HGB CONC 32.2 % (32.0-36.0); PLATELET COUNT 129 TH/MM3 (150-450); RED BLOOD COUNT 4.01 MIL/MM3 (4.00-5.30); RED CELL DISTRIBUTION WIDTH 18.8 % (11.6-17.2); WHITE BLOOD COUNT 6.2 TH/MM3 (4.0-11.0)
[2016-08-11 05:39] LABS: REVIEW FLAG FINAL
[2016-08-11] MEDS: cloNIDine HCL 0.1 MG TAB PO SCH ×3 (05:44→22:16)
[2016-08-11] MEDS: NIFEdipine 20 MG CAP PO SCH ×3 (05:44→22:16)
[2016-08-11] MEDS: hydrALAZINE HCL 50 MG TAB PO SCH ×3 (05:44→22:16)
[2016-08-11] MEDS: INSULIN NovoLIN REGULAR SUPPLEMENTAL SCALE SQ SCH ×4 (05:44→22:38)
[2016-08-11 05:55] LABS: BICARBONATE 24.1 MEQ/L (21.0-32.0); POTASSIUM 4.5 MEQ/L (3.5-5.1)
[2016-08-11] MEDS: RESP: ALBUTEROL 2.5 MG/IPRATROPIUM 0.5 MG NEB (SCH) NEB ×4 (07:33→20:25)
[2016-08-11] MEDS: CHLORHEXIDINE 0.12% (ORAL KIT) 15 ML CUP MT SCH ×2 (08:00→20:00)
[2016-08-11] MEDS: MUPIROCIN 2% OINT 1 APPLIC/GM SYR EACH NARE SCH ×2 (08:24→20:40)
[2016-08-11] MEDS: FERROUS SULFATE 300 MG /5ML UDC PO SCH ×2 (08:25→20:41)
[2016-08-11] MEDS: predniSONE 10 MG TAB PO SCH (08:25)
[2016-08-11] MEDS: GABAPENTIN 300 MG CAP PO SCH ×2 (08:25→20:42)
[2016-08-11] MEDS: SENNOSIDES 8.6 MG TAB PO SCH ×2 (08:25→20:42)
[2016-08-11] MEDS: HEPARIN SODIUM - SQ 10,000 UNITS/ML VIAL SQ SCH ×2 (08:25→20:42)
[2016-08-11] MEDS: PANTOPRAZOLE SODIUM 40 MG VIAL IV SCH (08:25)
[2016-08-11] MEDS: DOCUSATE SODIUM 100 MG CAP PO SCH ×2 (08:25→20:41)
[2016-08-11] MEDS: SODIUM CHLORIDE 0.9% FLUSH 5 ML FLUSH IVF SCH ×3 (08:25→20:40)
[2016-08-11] MEDS: CARVEDILOL 12.5 MG TAB PO SCH ×2 (08:25→20:41)
[2016-08-11] MEDS: LISINOPRIL 20 MG TAB PO SCH (08:25)
[2016-08-11] MEDS: ASPIRIN 81 MG CHEW TAB PO SCH (08:25)
--- NOTE | 2016-08-11 12:29 | HHI.NPPN ---
Subjective History of Present Illness 50 year old with CKD 4/5 Diabetes Nephrotic range proteinuria Additional Remarks Patient on alert, has mild SOB, eating better. Review of Systems General Constitutional: Fatigue Cardiovascular Cardiac: Edema Objective Data Data 08/10/16 08/11/16 19:00 07:00 Intake Total 240 ml 480 ml Output Total 75 ml 68 ml Balance 165 ml 412 ml Intake Oral 240 ml 480 ml Output Urine Total 75 ml 68 ml # Bowel Movements 0 Vital Signs Date Time Temp Pulse Resp B/P Pulse Ox O2 Delivery O2 Flow Rate FiO2 08/11/16 08:00 98.3 62 12 171/89 95 08/11/16 08:00 95 Nasal Cannula 2.00 08/11/16 08:00 62 08/11/16 06:00 60 08/11/16 04:00 59 08/11/16 04:00 97.5 59 19 178/84 100 08/11/16 03:29 100 40 08/11/16 02:00 60 08/11/16 00:22 98 40 08/11/16 00:00 60 08/11/16 00:00 97.7 60 18 194/86 99 08/10/16 22:34 100 40 08/10/16 22:00 62 08/10/16 20:23 100 Nasal Cannula 2.00 08/10/16 20:00 61 08/10/16 20:00 97.5 60 18 167/97 98 08/10/16 19:00 98 Nasal Cannula 3.00 08/10/16 16:00 96.0 54 20 156/77 96 08/10/16 16:00 54 -: 08/11/16 0514 08/11/16 0514 Physical Exam General Appearance: No Acute Distress, Comfortable, Anxious, Obese Throat Throat Exam: Oral Mucosa [place] & Moist Neck Neck Exam: Neck Supple Pulmonary Resp Exam: Rhonchi, Decreased Bases, Diminished Breath Sounds Cardiology CV Exam: Regular, Normal Sinus Rhythm Gastrointestinal/Abdomen GI Exam: Soft, Non-Tender, Distended Extremeties Extremities Exam: Pitting Edema, Dependent Edema Neurologic Neuro Exam: Alert, Awake, Oriented Assessment/Plan Problem List: (1) ESRD (end stage renal disease) on dialysis Plan: kidney failure due to advance diabetic nephropathy need operations processor plans Has PermCath and will need AVF once stable. HD will be in AM. (2) Stage 4 chronic kidney disease Plan: Patient with advanced kidney disease and had the workup in May. 10 g of proteinuria Most likely has advance Diabetic Nephropathy. continue HD tomorrow (3) Hypoventilation associated with obesity syndrome Plan: critical care following (4) Nephrotic syndrome Plan: Protein to creatinine ratio above 10 10.52 (5) Acute exacerbation of CHF (congestive heart failure) Plan: This is likely due to chronic kidney disease and diastolic dysfunction (6) Diabetes Plan: Advance manifestations diabetic nephropathy, retinopathy and neuropathy (7) HTN (hypertension) Plan: Continue to monitor on PRN hydralazine Problem Qualifiers (1) Acute exacerbation of CHF (congestive heart failure): Qualified Code: I50.9 - Acute on chronic congestive heart failure, unspecified congestive heart failure type (2) Diabetes: (3) HTN (hypertension): Qualified Code: I10 - Essential hypertension Mia Medley MD Aug 11, 2016 12:29
--- NOTE | 2016-08-11 14:51 | HHI.PR ---
Subjective Remarks f/u for multiple issues. patient has no complaints. she denied any pain. denied any N/V. Objective Vitals Vital Signs Date Time Temp Pulse Resp B/P Pulse Ox O2 Delivery O2 Flow Rate FiO2 08/11/16 08:00 98.3 62 12 171/89 95 08/11/16 08:00 95 Nasal Cannula 2.00 08/11/16 08:00 62 08/11/16 06:00 60 08/11/16 04:00 59 08/11/16 04:00 97.5 59 19 178/84 100 08/11/16 03:29 100 40 08/11/16 02:00 60 08/11/16 00:22 98 40 08/11/16 00:00 60 08/11/16 00:00 97.7 60 18 194/86 99 08/10/16 22:34 100 40 08/10/16 22:00 62 08/10/16 20:23 100 Nasal Cannula 2.00 08/10/16 20:00 61 08/10/16 20:00 97.5 60 18 167/97 98 08/10/16 19:00 98 Nasal Cannula 3.00 08/10/16 16:00 96.0 54 20 156/77 96 08/10/16 16:00 54 I/O 08/10/16 08/10/16 08/10/16 08/11/16 08/11/16 08/11/16 07:00 15:00 23:00 07:00 15:00 23:00 Intake Total 240 ml 240 ml 240 ml 240 ml Output Total 100 ml 75 ml 18 ml 50 ml Balance 140 ml 165 ml 222 ml 190 ml Intake Oral 240 ml 240 ml 240 ml 240 ml Output Urine Total 100 ml 75 ml 18 ml 50 ml Stool Total 0 ml # Bowel Movements 0 Result Diagram: 08/11/1614 08/11/1614 Objective Remarks Gen NAD resp: cta b/l abd soft NDNT CV RRR. no r/m/g Medications and IVs Current Medications IV Flush (NS Flush) 2 ml UNSCH PRN IVF FLUSH AFTER USING IV ACCESS; Start 07/15 at 19:00; Stop 07/15/16 at 20:43; Status DC Bumetanide (Bumex Inj) 1 mg ONCE ONCE IV PUSH Last administered on 07/15/16t 20:35; Start 07/15/16 at 20:30; Stop 07/15/16 at 20:31; Status DC IV Flush (NS Flush) 2 ml UNSCH PRN FLUSH FLUSH AFTER USING IV ACCESS; Start at 20:45; Stop 07/18/16 at 13:51; Status DC IV Flush (NS Flush) 2 ml BID FLUSH Last administered on 07/18/16 08:03; Start 07/15/16 at 21:00; Stop 07/18/16 at 13:51; Status DC Naloxone HCl (Narcan Inj) 0.4 mg UNSCH PRN IV SEE LABEL COMMENTS; Start at 20:45 Bumetanide (Bumex Inj) 1 mg BID@09,18 IV PUSH Last administered on 07/26/16 16 :53; Start 07/16/16 at 09:00; Stop 07/27/16 at 07:09; Status DC Bumetanide 1 mg 1 mg ONCE ONCE IV PUSH Last administered on 07/16/16 03:11; Start 07/16/16 at 03:00; Stop 07/16/16 at 03:01; Status DC Heparin Sodium/ Dextrose (Heparin-D5W Inj) 250 ml @ 0 mls/hr TITRATE IV Last administered on 07/18/16 01:42; Start 07/16/16 at 03:00; Stop 07/18/16 at 02:59; Status DC Heparin Sodium (Porcine) (Heparin Inj) 5,000 units ONCE ONCE IV Last administered on 07/16/16 03:11; Start 07/16/16 at 03:00; Stop 07/16/16 at 03:01 ; Status DC Amitriptyline HCl (Elavil) 50 mg HS PO Last administered on 07/21/16 19:33; Start 07/16/16 at 21:00; Status Hold Amlodipine Besylate (Norvasc) 10 mg DAILY PO Last administered on 07/18/16 11: 04; Start 07/16/16 at 09:00; Stop 07/22/16 at 08:48; Status DC Aspirin (Ecotrin Ec) 81 mg DAILY PO Last administered on 07/28/16 08:11; Start 07/16/16 at 09:00; Stop 07/29/16 at 11:06; Status DC Atorvastatin Calcium (Lipitor) 80 mg HS PO Last administered on 08/10/16 21:11 ; Start 07/16/16 at 21:00 Carvedilol (Coreg) 25 mg BID PO Last administered on 08/11/16 08:25; Start at 09:00 Ferrous Sulfate (Ferrous Sulfate) 325 mg BID PO Last administered on 07/30/16 09:44; Start 07/16/16 at 09:00; Stop 07/30/16 at 17:11; Status DC Gabapentin (Neurontin) 300 mg TID PO Last administered on 07/21/16 08:25; Start 07/16/16 at 09:00; Stop 07/21/16 at 10:49; Status DC Hydralazine HCl (Apresoline) 50 mg TID PO Last administered on 07/26/16 16:53 ; Start 07/16/16 at 09:00; Stop 07/27/16 at 07:09; Status DC Insulin Aspart (NovoLOG SUPPLEMENTAL SCALE) 1 ACHS SLIDING SCALE SQ Last administered on 07/18/16 11:00; Start 07/16/16 at 07:00; Stop 07/20/16 at 09:34; Status DC Dextrose (D50w (Vial) Inj) 25 ml UNSCH PRN IV PUSH HYPOGLYCEMIA - SEE COMMENTS ; Start 07/16/16 at 06:30; Stop 07/20/16 at 10:00; Status DC Glucagon (Glucagon Inj) 1 mg UNSCH PRN OTHER HYPOGLYCEMIA-SEE COMMENTS; Start 07/16/16 at 06:30; Stop 07/20/16 at 10:00; Status DC Albumin Human (Albumin 25% Inj) 25 gm BID@ IV Last administered on 09:42; Start 07/16/16 at 17:00; Stop 08/08/16 at 10:28; Status DC Lisinopril (Prinivil) 20 mg ONCE ONCE PO Last administered on 07/16/16 12:32 ; Start 07/16/16 at 11:00; Stop 07/16/16 at 11:11; Status DC Lisinopril (Prinivil) 20 mg DAILY PO Last administered on 08/11/16 08:25; Start 07/17/16 at 09:00 Acetaminophen/ Hydrocodone Bitart ([place] 5-325 Mg) 1 tab Q6H PRN PO PAIN >5 Last administered on 08/08/16 07:29; Start 07/16/16 at 23:30 Albuterol/ Ipratropium (Duoneb Neb) 1 ampule Q4HR NEB PRN NEB SOB/WHEEZING Last administered on 07/17/16 23:29; Start 07/17/16 at 09:45; Stop 07/18/16 at 13: 52; Status DC Ondansetron HCl (Zofran Inj) 4 mg Q6HR PRN IV PUSH nausea Last administered on 07/31/16 14:17; Start 07/18/16 at 06:00 Etomidate 20 mg 20 mg STK-MED ONCE .ROUTE ; Start 07/18/16 at 13:07; Stop at 13:08; Status DC Propofol 100 ml @ 0 mls/hr TITRATE IV Last administered on 07/20/16 12:40; Start 07/18/16 at 13:30; Stop 07/20/16 at 16:43; Status DC Propofol (Diprivan 1000 Mg/100ml Inj) 100 ml @ As Directed STK-MED ONCE .ROUTE ; Start 07/18/16 at 13:24; Stop 07/18/16 at 13:25; Status DC IV Flush (NS Flush) 2 ml UNSCH PRN IVF FLUSH AFTER USING IV ACCESS; Start at 13:45 IV Flush (NS Flush) 2 ml BID IVF Last administered on 08/11/16 08:25; Start at 21:00 Albuterol/ Ipratropium (Duoneb Neb) 1 ampule Q6HR NEB NEB Last administered on 07/23/16 15:55; Start 07/18/16 at 16:00; Stop 07/23/16 at 16:06; Status DC Albuterol Sulfate (Albuterol Neb) 2.5 mg Q4HR NEB PRN INH SHORTNESS OF BREATH Last administered on 08/09/16 10:41; Start 07/18/16 at 13:45 Chlorhexidine Gluconate (Peridex 0.12% Liq) 15 ml BID@08,20 MT Last administered on 08/01/16 08:38; Start 07/18/16 at 20:00; Stop 08/01/16 at 13:08 ; Status DC Pantoprazole Sodium (Protonix Inj) 40 mg DAILY IV Last administered on 08:25; Start 07/19/16 at 09:00 Miscellaneous Information 1 [id number] Last administered on 07/18/16 13:45; Start 07/18/16 at 13:45 Chlorhexidine Gluconate (Chlorhexidine 2% Cloth) 3 pack Taper DAILY@04 TOP Last administered on 08/11/16 04:50; Start 07/19/16 at 04:00; Stop 07/15/17 at 03:59 Chlorhexidine Gluconate 3 pack 3 pack UNSCH PRN TOP HYGIENIC CARE; Start at 13:45 Sodium Chloride (NS 1000 ml Inj) 1,000 ml @ 0 mls/hr Q0M PRN IV For Prime & Rinse Back; Start 07/19/16 at 12:15; Stop 07/29/16 at 19:00; Status DC Heparin Sodium (Porcine) 8000 units 8,000 units UNSCH PRN IVF WITH DIALYSIS; Start 07/19/16 at 12:15; Stop 07/29/16 at 19:01; Status DC Sodium Chloride 1,000 ml @ 200 mls/hr Q5H PRN IV WITH DIALYSIS; Start 07/19/16 at 12:15; Stop 07/20/16 at 16:43; Status DC Sodium Chloride (NS 1000 ml Inj) 1,000 ml @ 0 mls/hr Q0M PRN IV WITH DIALYSIS; Start 07/19/16 at 12:15; Stop 07/29/16 at 19:01; Status DC Mannitol (Mannitol Inj) 12.5 gm UNSCH PRN IV WITH DIALYSIS; Start 07/19/16 at 12 :15; Stop 07/29/16 at 19:01; Status DC Albumin Human (Albumin 25% Inj) 25 gm UNSCH PRN IV WITH DIALYSIS; Start at 12:15; Stop 07/29/16 at 19:01; Status DC IV Flush (NS Flush) 5 ml UNSCH PRN IVF WITH DIALYSIS; Start 07/19/16 at 12:15; Stop 07/29/16 at 19:00; Status DC Heparin Sodium (Porcine) (Heparin Inj) UNSCH PRN .XX WITH DIALYSIS; Start 07/19 at 12:15; Stop 07/29/16 at 19:01; Status DC Gentamicin Sulfate (Gentamicin (Dialysis) Inj) 20 mg UNSCH PRN IV WITH DIALYSIS ; Start 07/19/16 at 12:15; Stop 07/29/16 at 19:00; Status DC Ondansetron HCl (Zofran Inj) 4 mg UNSCH PRN IV WITH DIALYSIS; Start 07/19/16 at 12:15; Stop 07/29/16 at 19:01; Status DC Acetaminophen (Tylenol) 650 mg UNSCH PRN PO for headach, pain, temp > 101F Last administered on 07/20/16 20:41; Start 07/19/16 at 12:15; Stop 07/29/16 at 19 :01; Status DC Diphenhydramine HCl (Benadryl) 25 mg UNSCH PRN PO for hives/itching/anaphylaxis ; Start 07/19/16 at 12:15; Stop 07/29/16 at 19:01; Status DC Nitroglycerin (Nitrostat Sl) 0.4 mg UNSCH PRN SL CHEST PAIN; Start 07/19/16 at 12:15; Stop 07/29/16 at 19:01; Status DC Clonidine (Catapres) 0.1 mg UNSCH PRN PO for BP > 180/100 X 2 readings Last administered on 07/27/16 09:05; Start 07/19/16 at 12:15; Stop 07/29/16 at 19:01 ; Status DC Epoetin Joseph (Epogen Inj) 4,000 units UNSCH PRN IV WITH DIALYSIS; Start at 12:15; Stop 07/29/16 at 19:01; Status DC Gelatin 1 foam 1 foam UNSCH PRN TOP SEE LABEL COMMENTS; Start 07/19/16 at 12:15 ; Stop 07/29/16 at 19:01; Status DC Cefazolin Sodium/ Dextrose 50 ml @ 100 mls/hr ONCE ONCE IV Last administered on 07/19/16 14:02; Start 07/19/16 at 13:00; Stop 07/19/16 at 13:29; Status DC Vancomycin HCl/ Sodium Chloride (Vancomycin Inj/ NS 250 ml Inj) 250 ml @ 250 mls/hr ONCE ONCE IV Last administered on 07/19/16 13:01; Start 07/19/16 at 13: 00; Stop 07/19/16 at 13:59; Status DC Midazolam HCl (Versed Inj) 2 mg STK-MED ONCE .ROUTE ; Start 07/19/16 at 16:53; Stop 07/19/16 at 16:54; Status DC Fentanyl Citrate (fentaNYL INJ) 250 mcg STK-MED ONCE .ROUTE ; Start 07/19/16 at 16:53; Stop 07/19/16 at 16:54; Status DC Heparin Sodium (Porcine) (*HEPARIN INJ Periprocedural ONLY) 10,000 units STK- MED ONCE .ROUTE ; Start 07/19/16 at 17:06; Stop 07/19/16 at 17:07; Status DC Lidocaine/ Epinephrine (Xylocaine-Epi 1%-1:100,000 Inj) 20 ml STK-MED ONCE .ROUTE ; Start 07/19/16 at 17:06; Stop 07/19/16 at 17:07; Status DC Flumazenil (Romazicon Inj) 0.5 mg STK-MED ONCE .ROUTE ; Start 07/19/16 at 17:51; Stop 07/19/16 at 17:52; Status DC Heparin Sodium (Porcine) (Heparin Inj) 5,000 units Q12HR SQ Last administered on 08/11/16 08:25; Start 07/20/16 at 21:00 Dextrose (D50w (Vial) Inj) 25 ml UNSCH PRN IV PUSH HYPOGLYCEMIA-SEE COMMENTS; Start 07/20/16 at 09:45 Glucagon (Glucagon Inj) 1 mg UNSCH PRN OTHER HYPOGLYCEMIA-SEE COMMENTS; Start 07/20/16 at 09:45 Insulin Human Regular (NovoLIN R SUPPLEMENTAL SCALE) 1 Q6H SQ Last administered on 08/11/16 11:16; Start 07/20/16 at 11:00 Epinephrine HCl (EPINEPHrine (1:10,000) INJ) 1 mg STK-MED ONCE IV ; Start at 05:00; Stop 07/20/16 at 16:33; Status DC Sodium Bicarbonate (Sodium Bicarbonate 8.4% Inj) 50 meq STK-MED ONCE IV ; Start 07/19/16 at 05:00; Stop 07/20/16 at 16:33; Status DC Racepinephrine (Racepinephrine 2.25% Neb) 0.5 ml STK-MED ONCE .ROUTE ; Start 07/21/16 at 02:10; Stop 07/21/16 at 02:11; Status DC Dexamethasone Sodium Phosphate 4 mg 4 mg ONCE ONCE IV PUSH Last administered on 07/21/16 04:04; Start 07/21/16 at 03:45; Stop 07/21/16 at 03:46; Status DC Ceftriaxone Sodium/Sodium Chloride (Rocephin Inj/NS Inj) 100 ml @ 200 mls/hr Q24H IV Last administered on 07/23/16 09:00; Start 07/21/16 at 09:00; Stop at 16:16; Status DC Morphine Sulfate (Morphine Inj) 1 mg ONCE ONCE IV PUSH Last administered on 09:33; Start 07/21/16 at 09:15; Stop 07/21/16 at 09:16; Status DC Gabapentin (Neurontin) 300 mg DAILY PO Last administered on 07/30/16 09:44; Start 07/22/16 at 09:00; Stop 07/30/16 at 12:40; Status DC Labetalol HCl (Trandate Inj) 10 mg Q4H PRN IV PUSH SBP >165 Last administered on 08/05/16 11:15; Start 07/22/16 at 04:45 Hydralazine HCl (Apresoline Inj) 10 mg Q4H PRN IV PUSH SBP >165 Last administered on 08/04/16 11:04; Start 07/22/16 at 05:30; Stop 08/04/16 at 15:14 ; Status DC Hydralazine HCl (Apresoline Inj) 10 mg NOW IV Last administered on 07/22/16 06: 47; Start 07/22/16 at 06:45; Stop 07/22/16 at 08:30; Status DC Nifedipine (Procardia) 10 mg Q8HR PO Last administered on 07/23/16 04:40; Start 07/22/16 at 09:00; Stop 07/23/16 at 09:57; Status DC Nystatin (Mycostatin Powder) 1 applic Q12HR PRN TOPICAL rash; Start 07/22/16 at 16:00 Linezolid (Zyvox) 600 mg Q12H PO Last administered on 07/23/16 13:50; Start 07/22/16 at 15:00; Stop 07/23/16 at 20:46; Status DC Nifedipine (Procardia) 20 mg Q8HR PO Last administered on 08/11/16 05:44; Start 07/23/16 at 14:00 Albuterol/ Ipratropium (Duoneb Neb) 1 ampule Q4HR NEB NEB Last administered on 07/31/16 03:40; Start 07/23/16 at 18:00; Stop 07/31/16 at 07:05; Status DC Chlorhexidine Gluconate 15 ml 15 ml BID@08,20 MT Last administered on 21:10; Start 07/23/16 at 20:00 Propofol 100 ml @ 0 mls/hr TITRATE IV Last administered on 07/30/16 06:54; Start 07/23/16 at 19:30; Status Hold Fentanyl Citrate (fentaNYL DRIP) 250 ml @ 0 mls/hr TITRATE IV Last administered on 07/24/16 00:59; Start 07/23/16 at 19:30; Stop 07/30/16 at 08:11; Status DC Mupirocin (Bactroban Nasal 2% Oint) Taper BID EACH NARE Last administered on 08:24; Start 07/23/16 at 21:00; Stop 07/19/17 at 20:59 IV Flush (NS Flush) DAILY IVF Last administered on 08/11/16 08:25; Start 07/23 at 20:00 IV Flush UNSCH PRN IVF SEE PROTOCOL; Start 07/23/16 at 20:00 Sodium Chloride 1,000 ml @ 84 mls/hr [id number] IV Last administered on 08:20; Start 07/23/16 at 20:45; Stop 07/26/16 at 11:24; Status DC Cefepime HCl 2000 mg/Sodium Chloride 100 ml @ 200 mls/hr DAILY IV Last administered on 07/26/16 08:29; Start 07/23/16 at 22:00; Stop 07/26/16 at 14:28 ; Status DC Clindamycin Phosphate 600 mg/ Sodium Chloride 104 ml @ 208 mls/hr Q8H IV Last administered on 07/24/16 06:08; Start 07/23/16 at 23:00; Stop 07/24/16 at 10:54; Status DC Linezolid (Zyvox 600 Mg Premix) 300 ml @ 300 mls/hr Q12HR IV Last administered on 08/02/16 08:12; Start 07/24/16 at 11:00; Stop 08/02/16 at 15:34 ; Status DC Nitroglycerin (Nitroglycerin 2% Oint) 2 inch Q6H PRN TOPICAL SBP> 160 Last administered on 07/30/16 15:55; Start 07/25/16 at 04:15 Epinephrine HCl (EPINEPHrine (1:10,000) INJ) 1 mg STK-MED ONCE .ROUTE ; Start at 16:22; Stop 07/25/16 at 16:23; Status DC Atropine Sulfate (Atropine Inj) 1 mg STK-MED ONCE .ROUTE ; Start 07/25/16 at 16: 22; Stop 07/25/16 at 16:23; Status DC Lidocaine HCl (Xylocaine 2% Inj) 100 mg STK-MED ONCE .ROUTE ; Start 07/25/16 at 16:23; Stop 07/25/16 at 16:24; Status DC Atropine Sulfate (Atropine Inj) 1 mg STK-MED ONCE IV ; Start 07/23/16 at 12:07; Stop 07/26/16 at 12:10; Status DC Sodium Bicarbonate (Sodium Bicarbonate 8.4% Inj) 50 meq STK-MED ONCE IV ; Start 07/23/16 at 12:08; Stop 07/26/16 at 12:10; Status DC Epinephrine HCl (EPINEPHrine (1:10,000) INJ) 1 mg STK-MED ONCE IV ; Start at 12:09; Stop 07/26/16 at 12:10; Status DC Sodium Chloride (Sodium Chloride 0.9% Inj) 20 ml STK-MED ONCE IV ; Start at 12:10; Stop 07/26/16 at 12:10; Status DC Bumetanide (Bumex Inj) 2 mg BID@09,18 IV PUSH Last administered on 07/29/16 16 :49; Start 07/27/16 at 09:00; Stop 07/29/16 at 19:02; Status DC Hydralazine HCl (Apresoline) 75 mg TID PO ; Start 07/27/16 at 09:00; Stop at 09:00; Status DC Docusate Sodium (Colace) 100 mg BID PO Last administered on 08/11/16 08:25; Start 07/27/16 at 09:00 Sennosides (Senokot) 8.6 mg Q12HR PO Last administered on 08/11/16 08:25; Start 07/27/16 at 09:00 Polyethylene Glycol (Miralax) 17 gm ONCE ONCE PO Last administered on 07:59; Start 07/27/16 at 07:15; Stop 07/27/16 at 07:17; Status DC Mineral Oil (Mineral Oil Liq) 15 ml ONCE ONCE PO Last administered on 07:58; Start 07/27/16 at 07:15; Stop 07/27/16 at 07:17; Status DC Potassium Chloride (KCl 40 Meq/30 ml Liq) 40 meq ONCE ONCE PO Last administered on 07/27/16 07:58; Start 07/27/16 at 07:15; Stop 07/27/16 at 07:16 ; Status DC Hydralazine HCl (Apresoline) 100 mg TID PO Last administered on 07/29/16 08:01 ; Start 07/27/16 at 09:00; Stop 07/29/16 at 11:02; Status DC Miscellaneous (Pill Splitter) 1 ea UNSCH PRN OTHER SEE LABEL COMMENTS; Start at 07:15; Status Cancel Clonidine 0.1 mg 0.1 mg Q8HR PO Last administered on 07/27/16 13:58; Start 05/02 at 14:00; Stop 07/27/16 at 18:12; Status DC Clevidipine (Cleviprex Inj) 50 ml @ 0 mls/hr TITRATE IV Last administered on 01:43; Start 07/27/16 at 11:00; Stop 07/30/16 at 17:22; Status DC Clonidine (Catapres) 0.2 mg Q8HR PO Last administered on 08/11/16 05:44; Start 07/27/16 at 22:00 Alteplase, Recombinant (Cathflo Activase Inj) 2 mg ONCE ONCE IV Last administered on 07/29/16 07:03; Start 07/29/16 at 06:45; Stop 07/29/16 at 06:46 ; Status DC Alteplase, Recombinant (Cathflo Activase Inj) 2 mg ONCE ONCE IV Last administered on 07/29/16 08:05; Start 07/29/16 at 06:45; Stop 07/29/16 at 06:46 ; Status DC Alteplase, Recombinant (Cathflo Activase Inj) 2 mg ONCE ONCE IV Last administered on 07/29/16 08:05; Start 07/29/16 at 06:45; Stop 07/29/16 at 06:46 ; Status DC Hydralazine HCl (Apresoline) 100 mg Q8HR PO Last administered on 08/11/16 05: 44; Start 07/29/16 at 14:00 Ferrous Sulfate (Ferrous Sulfate Liq) 300 mg BID PO Last administered on 08:25; Start 07/29/16 at 12:00 Aspirin (Aspirin Chew) 81 mg DAILY PO Last administered on 08/11/16 08:25; Start 07/29/16 at 12:00 Bumetanide 2 mg 2 mg Q6HR IV PUSH Last administered on 08/02/16 11:17; Start 07/30/16 at 00:00; Stop 08/02/16 at 13:03; Status DC Potassium Chloride (KCl 40 Meq Premix Inj) 100 ml @ 25 mls/hr BOLUS ONCE IV Last administered on 07/29/16 21:05; Start 07/29/16 at 19:15; Stop 07/29/16 at 23:14; Status DC Potassium Chloride 20 meq 20 meq Q12HR TUBE Last administered on 07/30/16 09: 45; Start 07/29/16 at 21:00; Stop 07/30/16 at 11:46; Status DC Dexmedetomidine HCl (Precedex Inj) 50 ml @ 0 mls/hr TITRATE IV Last administered on 07/30/16 15:35; Start 07/30/16 at 08:00; Stop 07/30/16 at 22:25 ; Status DC Potassium Chloride 40 meq 40 meq Q12HR TUBE Last administered on 08/03/16 23: 47; Start 07/30/16 at 21:00; Stop 08/05/16 at 16:51; Status DC Potassium Chloride/Sodium Chloride (KCl Inj/NS Inj) 115 ml @ 38.333 mls/ hr ONCE ONCE IV-CENTRAL Last administered on 07/30/16 14:09; Start 07/30/16 at 12:00; Stop 07/30/16 at 14:59; Status DC Gabapentin (Neurontin) 300 mg BID PO Last administered on 08/11/16 08:25; Start 07/30/16 at 21:00 Metoprolol Tartrate (Lopressor Inj) 2.5 mg NOW ONCE IV PUSH Last administered on 07/30/16 18:00; Start 07/30/16 at 17:15; Stop 07/30/16 at 17:16; Status DC Metoprolol Tartrate 5 mg 5 mg STK-MED ONCE .ROUTE Last administered on 17:11; Start 07/30/16 at 17:10; Stop 07/30/16 at 17:11; Status DC Nicardipine HCl 25 mg/Sodium Chloride 260 ml @ 0 mls/hr TITRATE IV Last administered on 08/07/16 13:00; Start 07/30/16 at 17:30 Dexmedetomidine HCl 1000 mcg/ Sodium Chloride 250 ml @ 0 mls/hr TITRATE IV Last administered on 07/31/16 09:12; Start 07/30/16 at 22:25; Stop 08/08/16 at 12:35; Status DC Potassium Chloride (KCl 20 Meq Premix Inj) 100 ml @ 50 mls/hr Q2H IV Last administered on 07/31/16 08:15; Start 07/31/16 at 07:00; Stop 07/31/16 at 10:59 ; Status DC Furosemide (Lasix Inj) 40 mg ONCE ONCE IV PUSH Last administered on 07/31/16 08:12; Start 07/31/16 at 07:15; Stop 07/31/16 at 07:16; Status DC Nicardipine HCl (Cardene Inj) 25 mg STK-MED ONCE .ROUTE ; Start 07/31/16 at 09: 06; Stop 07/31/16 at 09:07; Status DC Promethazine HCl 25 mg 25 mg Q6H PRN IM NAUSEA Last administered on 08/02/16 13:17; Start 07/31/16 at 17:45 Potassium Chloride 30 meq/ Sodium Chloride 115 ml @ 38.333 mls/ hr ONCE ONCE IV-CENTRAL ; Start 08/01/16 at 15:00; Stop 08/01/16 at 17:59; Status Cancel Potassium Chloride (KCl 10 Meq Premix Inj) 100 ml @ 100 mls/hr Q1H IV Last administered on 08/01/16 15:08; Start 08/01/16 at 14:00; Stop 08/01/16 at 16:59 ; Status DC Bumetanide (Bumex Inj) 2 mg Q8HR ALT NEB IV PUSH Last administered on 11:49; Start 08/02/16 at 20:00; Stop 08/03/16 at 13:29; Status DC Prednisone 10 mg 10 mg BID PO Last administered on 08/09/16 09:08; Start 08/02 at 21:00; Stop 08/09/16 at 12:49; Status DC Bumetanide (Bumex Inj) 100 ml @ 8 mls/hr CONTINUOUS IV Last administered on 03:23; Start 08/03/16 at 15:30; Stop 08/05/16 at 12:56; Status DC Hydralazine HCl 20 mg 20 mg Q4H PRN IV PUSH SBP >165 Last administered on 08:24; Start 08/04/16 at 18:00 Sodium Chloride (NS 1000 ml Inj) 1,000 ml @ 0 mls/hr Q0M PRN IV For Prime & Rinse Back Last administered on 08/10/16 08:21; Start 08/04/16 at 15:14 Heparin Sodium (Porcine) 8000 units 8,000 units UNSCH PRN IVF WITH DIALYSIS; Start 08/04/16 at 15:15 Sodium Chloride 1,000 ml @ 200 mls/hr Q5H PRN IV WITH DIALYSIS; Start 08/04/16 at 15:14 Sodium Chloride (NS 1000 ml Inj) 1,000 ml @ 0 mls/hr Q0M PRN IV WITH DIALYSIS; Start 08/04/16 at 15:14 Mannitol (Mannitol Inj) 12.5 gm UNSCH PRN IV WITH DIALYSIS Last administered on 08/08/16 08:07; Start 08/04/16 at 15:15 Albumin Human (Albumin 25% Inj) 25 gm UNSCH PRN IV WITH DIALYSIS; Start at 15:15 IV Flush (NS Flush) 5 ml UNSCH PRN IVF WITH DIALYSIS; Start 08/04/16 at 15:15 Heparin Sodium (Porcine) (Heparin Inj) UNSCH PRN .XX WITH DIALYSIS Last administered on 08/10/16 08:20; Start 08/04/16 at 15:15 Gentamicin Sulfate (Gentamicin (Dialysis) Inj) 20 mg UNSCH PRN IV WITH DIALYSIS Last administered on 08/10/16 08:20; Start 08/04/16 at 15:15 Ondansetron HCl (Zofran Inj) 4 mg UNSCH PRN IV WITH DIALYSIS Last administered on 08/06/16 18:47; Start 08/04/16 at 15:15 Acetaminophen (Tylenol) 650 mg UNSCH PRN PO for headach, pain, temp > 101F; Start 08/04/16 at 15:15 Diphenhydramine HCl (Benadryl) 25 mg UNSCH PRN PO for hives/itching/anaphylaxis ; Start 08/04/16 at 15:15 Nitroglycerin (Nitrostat Sl) 0.4 mg UNSCH PRN SL CHEST PAIN; Start 08/04/16 at 15:15 Clonidine (Catapres) 0.1 mg UNSCH PRN PO for BP > 180/100 X 2 readings Last administered on 08/11/16 03:07; Start 08/04/16 at 15:15 Epoetin Joseph (Epogen Inj) 10,000 units UNSCH PRN IV WITH DIALYSIS Last administered on 08/10/16 08:20; Start 08/04/16 at 15:15 Gelatin (Gelfoam 12 Mm/7 Mm Top) 1 foam UNSCH PRN TOP SEE LABEL COMMENTS; Start 08/04/16 at 15:15 Epinephrine HCl (EPINEPHrine (1:10,000) INJ) 1 mg STK-MED ONCE .ROUTE ; Start at 11:12; Stop 08/05/16 at 11:13; Status DC Atropine Sulfate (Atropine Inj) 1 mg STK-MED ONCE .ROUTE ; Start 08/05/16 at 11: 12; Stop 08/05/16 at 11:13; Status DC Lidocaine HCl (Xylocaine 2% Inj) 100 mg STK-MED ONCE .ROUTE ; Start 08/05/16 at 11:12; Stop 08/05/16 at 11:13; Status DC Heparin Sodium (Porcine) (*HEPARIN INJ Periprocedural ONLY) 10,000 units STK- MED ONCE .ROUTE Last administered on 08/05/16 12:05; Start 08/05/16 at 12:03; Stop 08/05/16 at 12:04; Status DC IV Flush (NS Flush) UNSCH PRN IVF SEE PROTOCOL; Start 08/05/16 at 12:15 Heparin Sodium (Porcine) (Heparin Inj) UNSCH PRN IVF SEE PROTOCOL; Start 08/05 at 12:15 Prednisone (Deltasone) 10 mg DAILY PO Last administered on 08/11/16 08:25; Start 08/10/16 at 09:00 Albuterol/ Ipratropium (Duoneb Neb) 1 ampule QID NEB NEB Last administered on 08/11/16 11:22; Start 08/09/16 at 16:00 Date of Insertion: Jul 23, 2016 Line: Central Venous Catheter Side: Left Location: Internal, Jugular A/P Problem List: (1) Acute exacerbation of CHF (congestive heart failure) ICD Code: I50.9 Status: Acute (2) Stage 4 chronic kidney disease ICD Code: N18.4 Status: Acute (3) Elevated troponin ICD Code: R79.89 Status: Acute (4) HTN (hypertension) ICD Code: I10 Status: Chronic (5) Diabetes ICD Code: E11.9 Status: Chronic Assessment and Plan 50 Y/O female with a medical history significant for CHF, depression, HTN, dm, and ckd with prolonged hospital stay secondary to recurrent intubation, status post cardiac arrest. Patient currently still in the ICU and slowly improving. Acute respiratory failure: Likely a combination of renal failure, diastolic heart failure, pulmonary edema, possible COPD, HCAP with MRSA in the sputum. Patient has been intubated about 3 times during this hospitalization. Currently on BiPAP at night and as needed. - Appreciate pulmonology following. On prednisone. bipap per Pulmonology - Infectious disease following. s/p Rocephin and Zyvox. Antibiotics discontinued. Monitor patient off antibiotic. - Patient currently on nasal cannula with bipap as needed. BRENDA RN. Acute on chronic kidney disease: Now on dialysis.. -Appreciate nephrology following. Most likely advanced diabetic nephropathy. Status post Vas-Cath placement. Dialysis per nephrology. continue to f/u with BMP. - Vascular surgery planning for aVF Encephalopathy: -RESOLVED. Secondary to multiple comorbid conditions above. Anoxic injury also possibility. Continue to follow. CHF: Echocardiogram 05/21 revealed EF 50%. Mildly dilated ventricle. Diffuse hypokinesis. Echocardiogram 07/23 reveals EF 45-50%. No regional motion abnormality. POOL 59 mmHg. Mild TR. - Continue Coreg, lisinopril. Previously followed by cardiology. Troponin likely due to fluid overloaded state per Cards. previous stress test showing mild small lateral wall defect. Severe deconditioning: Secondary to above comorbidities. Need to mobilize patient. PT following blood respiratory status limit therapy. Hypertension: Resistant, difficult to control. On Coreg 25mg BID, hydralazine 100mg TID, lisinopril 20 daily, clonidine 0.2 mg every 8 hours Continue atorvastatin 80 mg daily's for dyslipidemia. Cont Nifedipine. Continue hydralazine IV as needed. Diabetes mellitus: - Continue sliding scale insulin with Accu-Chek Anemia: Currently on iron sulfate 325mg PO twice a day/home medication. Monitor CBC. Transfuse for hemoglobin less than 7 GI prophylaxis: Stool softener PRN constipation. DVT PPx: SCDs/Heparin Problem Qualifiers (1) Acute exacerbation of CHF (congestive heart failure): Qualified Code: I50.9 - Acute on chronic congestive heart failure, unspecified congestive heart failure type (2) HTN (hypertension): Qualified Code: I10 - Essential hypertension (3) Diabetes: Valorie Parekh MD Aug 11, 2016 14:51
--- NOTE | 2016-08-11 17:03 | HHI.PR ---
Subjective Remarks On O2 2 L N/C today. Seems better today. No cough or fever. Objective Vital Signs Date Time Temp Pulse Resp B/P Pulse Ox O2 Delivery O2 Flow Rate FiO2 08/11/16 16:00 65 08/11/16 16:00 97.3 65 15 162/84 100 08/11/16 12:00 98.2 59 16 145/70 96 08/11/16 12:00 59 08/11/16 08:00 98.3 62 12 171/89 95 08/11/16 08:00 95 Nasal Cannula 2.00 08/11/16 08:00 62 08/11/16 06:00 60 08/11/16 04:00 59 08/11/16 04:00 97.5 59 19 178/84 100 08/11/16 03:29 100 40 08/11/16 02:00 60 08/11/16 00:22 98 40 08/11/16 00:00 60 08/11/16 00:00 97.7 60 18 194/86 99 08/10/16 22:34 100 40 08/10/16 22:00 62 08/10/16 20:23 100 Nasal Cannula 2.00 08/10/16 20:00 61 08/10/16 20:00 97.5 60 18 167/97 98 08/10/16 19:00 98 Nasal Cannula 3.00 I/O 08/10/16 08/10/16 08/10/16 08/11/16 08/11/16 08/11/16 07:00 15:00 23:00 07:00 15:00 23:00 Intake Total 240 ml 240 ml 240 ml 240 ml 300 ml Output Total 100 ml 75 ml 18 ml 50 ml 150 ml Balance 140 ml 165 ml 222 ml 190 ml 150 ml Intake Oral 240 ml 240 ml 240 ml 240 ml 300 ml Output Urine Total 100 ml 75 ml 18 ml 50 ml 150 ml Stool Total 0 ml # Bowel Movements 0 0 Result Diagram: 08/11/1651308/11/16513 Objective Remarks General: This is a very obese middle-aged lady who is alert . HEENT: Head normocephalic. Pupils are reactive. Tongue is moist. Throat is clear. Nasal mucosa clear Neck: Supple.No JVD. No lymphadenopathy. Trachea midline. Chest: Distant breath sounds and few crackles at the lung bases. Heart: The heart sounds are regular. S1 and S2. No definite murmur. No S3. Abdomen: Soft, protuberant. No mass, no organomegaly or tenderness. Bowel sounds are active. Extremities: Decreased peripheral pulses. 1+ leg edema. Neurologic: responsive. Reflexes 1 +. No deficits Rectal: Exam deferred. Skin: Scaly, dry and warm. Assessment and Plan Assessment and Plan . IMPRESSION 1. CHF with acute exacerbation. 2. Possible obstructive sleep apnea syndrome. 3. Hypertension. 4. Elevated troponin. 5. Diabetes mellitus type 2. 6. S/P respiratory Arrest. Plan : 1. Cont O2 N/C 2 L. 2. Cont Bipap at HS from 10 PM to 6 AM 12/5 , FIo2 28 % 3. Nebs qid , duoneb. 4. BMP in am 5. Cont prednisone 10 mg daily. 6. IS at bedside qid. 7. Dialysis every other day. 8. PT evaluation for activity. Sheela Lau MD Aug 11, 2016 17:03
[2016-08-11] MEDS: NITROGLYCERIN 2% OINT 1 GM PACKET TOPICAL PRN (17:09)
[2016-08-11 17:43] LABS: BICARBONATE 27.3 MEQ/L (21.0-32.0); POTASSIUM 4.6 MEQ/L (3.5-5.1)
[2016-08-11] MEDS: ATORVASTATIN 80 MG TAB PO SCH (20:41)
[2016-08-12] VITALS (15 sets, daily range): BP systolic 143–178; BP diastolic 58–88; PULSE 58–72; RESP 12–21; TEMP 97.6–98.6; O2SAT 91–99
[2016-08-12] MEDS: hydrALAZINE HCL 20 MG/ML VIAL IV PUSH PRN (03:26)
[2016-08-12 04:35] LABS: HEMATOCRIT 27.5 % (35.0-46.0); MEAN CELL VOLUME 70.9 FL (80.0-100.0); MEAN CORPUSCULAR HEMOGLOBIN 22.3 PG (27.0-34.0); MEAN CORPUSCULAR HGB CONC 31.5 % (32.0-36.0); PLATELET COUNT 165 TH/MM3 (150-450); RED BLOOD COUNT 3.88 MIL/MM3 (4.00-5.30); RED CELL DISTRIBUTION WIDTH 19.1 % (11.6-17.2); WHITE BLOOD COUNT 5.7 TH/MM3 (4.0-11.0)
[2016-08-12 04:37] LABS: REVIEW FLAG FINAL
[2016-08-12] MEDS: NIFEdipine 20 MG CAP PO SCH ×3 (05:49→22:12)
[2016-08-12] MEDS: INSULIN NovoLIN REGULAR SUPPLEMENTAL SCALE SQ SCH ×4 (05:50→17:00)
[2016-08-12] MEDS: hydrALAZINE HCL 50 MG TAB PO SCH ×3 (05:50→22:12)
[2016-08-12] MEDS: cloNIDine HCL 0.1 MG TAB PO SCH ×3 (05:50→22:12)
[2016-08-12] MEDS: CHLORHEXIDINE GLUCONATE 2 % 1 PACK (2 CLOTHS) TOP SCH (05:51)
[2016-08-12] MEDS: CHLORHEXIDINE 0.12% (ORAL KIT) 15 ML CUP MT SCH ×2 (08:00→20:00)
[2016-08-12] MEDS: RESP: ALBUTEROL 2.5 MG/IPRATROPIUM 0.5 MG NEB (SCH) NEB ×4 (08:33→19:50)
[2016-08-12] MEDS: GENTAMICIN SULFATE (DIALYSIS USE ONLY) 20 MG/2 ML VIAL IV PRN (08:41)
[2016-08-12] MEDS: EPOETIN ALFA 10,000 UNITS/ML VIAL IV PRN (08:41)
[2016-08-12] MEDS: HEPARIN SODIUM - IV 10,000 UNITS/10 ML VIAL PRN (08:41)
[2016-08-12] MEDS: SODIUM CHLOR 0.9% 1000 ML INJ 1,000 ML IV PRN (08:41)
[2016-08-12] MEDS: PANTOPRAZOLE SODIUM 40 MG VIAL IV SCH (08:49)
[2016-08-12] MEDS: MUPIROCIN 2% OINT 1 APPLIC/GM SYR EACH NARE SCH ×2 (08:49→22:13)
[2016-08-12] MEDS: ASPIRIN 81 MG CHEW TAB PO SCH (08:49)
[2016-08-12] MEDS: SODIUM CHLORIDE 0.9% FLUSH 5 ML FLUSH IVF SCH ×3 (08:49→21:28)
[2016-08-12] MEDS: DOCUSATE SODIUM 100 MG CAP PO SCH ×2 (08:50→22:13)
[2016-08-12] MEDS: SENNOSIDES 8.6 MG TAB PO SCH ×2 (08:50→22:12)
[2016-08-12] MEDS: FERROUS SULFATE 300 MG /5ML UDC PO SCH ×2 (08:50→22:13)
[2016-08-12] MEDS: predniSONE 10 MG TAB PO SCH (08:50)
[2016-08-12] MEDS: HEPARIN SODIUM - SQ 10,000 UNITS/ML VIAL SQ SCH ×2 (08:50→22:12)
[2016-08-12] MEDS: CARVEDILOL 12.5 MG TAB PO SCH ×2 (08:50→22:12)
[2016-08-12] MEDS: GABAPENTIN 300 MG CAP PO SCH ×2 (08:50→22:13)
[2016-08-12] MEDS: LISINOPRIL 20 MG TAB PO SCH (08:50)
--- NOTE | 2016-08-12 11:13 | HHI.NPPN ---
Subjective History of Present Illness 50 year old with CKD 4/5 Diabetes Nephrotic range proteinuria Additional Remarks Patient on alert, with nasal cannula and now on HD. Review of Systems General Constitutional: Fatigue Cardiovascular Cardiac: Edema Objective Data Data 08/11/16 08/12/16 19:00 07:00 Intake Total 300 ml 720 ml Output Total 150 ml 525 ml Balance 150 ml 195 ml Intake Oral 300 ml 720 ml Output Urine Total 150 ml 525 ml # Bowel Movements 0 Vital Signs Date Time Temp Pulse Resp B/P Pulse Ox O2 Delivery O2 Flow Rate FiO2 08/12/16 08:35 98 Nasal Cannula 2.00 08/12/16 06:00 58 08/12/16 04:00 58 08/12/16 04:00 98.6 58 15 162/58 98 08/12/16 02:00 58 08/12/16 01:10 99 40 08/12/16 00:00 98.5 60 19 169/84 98 08/12/16 00:00 60 08/11/16 22:40 97 40 08/11/16 22:00 62 08/11/16 20:28 99 Nasal Cannula 2.00 08/11/16 20:00 65 08/11/16 20:00 98.4 62 30 167/80 96 08/11/16 19:00 95 Nasal Cannula 2.00 08/11/16 16:00 65 08/11/16 16:00 97.3 65 15 162/84 100 08/11/16 12:00 98.2 59 16 145/70 96 08/11/16 12:00 59 -: 08/12/16 0342 08/11/16 1658 Physical Exam General Appearance: No Acute Distress, Comfortable, Anxious, Obese Throat Throat Exam: Oral Mucosa [place] & Moist Neck Neck Exam: Neck Supple Pulmonary Resp Exam: Rhonchi, Decreased Bases, Diminished Breath Sounds Cardiology CV Exam: Regular, Normal Sinus Rhythm Gastrointestinal/Abdomen GI Exam: Soft, Non-Tender, Distended Extremeties Extremities Exam: Pitting Edema, Dependent Edema Neurologic Neuro Exam: Alert, Awake, Oriented Assessment/Plan Problem List: (1) ESRD (end stage renal disease) on dialysis Plan: kidney failure due to advance diabetic nephropathy need longterm plans Has PermCath and will need AVF once stable. HD now, removing 3 liters. BP is stable. Get left arm venous mapping. (2) Stage 4 chronic kidney disease Plan: Patient with advanced kidney disease and had the workup in May. 10 g of proteinuria Most likely has advance Diabetic Nephropathy. continue HD tomorrow (3) Hypoventilation associated with obesity syndrome Plan: critical care following (4) Nephrotic syndrome Plan: Protein to creatinine ratio above 10 10.52 (5) Acute exacerbation of CHF (congestive heart failure) Plan: This is likely due to chronic kidney disease and diastolic dysfunction (6) Diabetes Plan: Advance manifestations diabetic nephropathy, retinopathy and neuropathy (7) HTN (hypertension) Plan: Continue to monitor on PRN hydralazine Problem Qualifiers (1) Acute exacerbation of CHF (congestive heart failure): Qualified Code: I50.9 - Acute on chronic congestive heart failure, unspecified congestive heart failure type (2) Diabetes: (3) HTN (hypertension): Qualified Code: I10 - Essential hypertension Mia Medley MD Aug 12, 2016 11:13
--- NOTE | 2016-08-12 13:00 | HHI.PR ---
Subjective Remarks Stable alert and talking. On O2 2 L N/C. Seems better today. No fever. Objective Vital Signs Date Time Temp Pulse Resp B/P Pulse Ox O2 Delivery O2 Flow Rate FiO2 08/12/16 08:35 98 Nasal Cannula 2.00 08/12/16 06:00 58 08/12/16 04:00 58 08/12/16 04:00 98.6 58 15 162/58 98 08/12/16 02:00 58 08/12/16 01:10 99 40 08/12/16 00:00 98.5 60 19 169/84 98 08/12/16 00:00 60 08/11/16 22:40 97 40 08/11/16 22:00 62 08/11/16 20:28 99 Nasal Cannula 2.00 08/11/16 20:00 65 08/11/16 20:00 98.4 62 30 167/80 96 08/11/16 19:00 95 Nasal Cannula 2.00 08/11/16 16:00 65 08/11/16 16:00 97.3 65 15 162/84 100 I/O 08/11/16 08/11/16 08/11/16 08/12/16 08/12/16 08/12/16 07:00 15:00 23:00 07:00 15:00 23:00 Intake Total 240 ml 300 ml 480 ml 240 ml Output Total 50 ml 150 ml 325 ml 200 ml 3500 ml Balance 190 ml 150 ml 155 ml 40 ml -3500 ml Intake Oral 240 ml 300 ml 480 ml 240 ml Output Urine Total 50 ml 150 ml 325 ml 200 ml Hemodialysis 3500 ml # Bowel Movements 0 Result Diagram: 08/12/16 0342 08/11/16 1658 Objective Remarks General: This is a very obese middle-aged lady who is alert . HEENT: Head normocephalic. Pupils are reactive. Tongue is moist. Throat is clear. Nasal mucosa clear Neck: Supple.No JVD. No lymphadenopathy. Trachea midline. Chest: Distant breath sounds and few crackles at the lung bases. Heart: The heart sounds are regular. S1 and S2. No definite murmur. No S3. Abdomen: Soft, protuberant. No mass, no organomegaly or tenderness. Bowel sounds are active. Extremities: Decreased peripheral pulses. 1+ leg edema. Neurologic: responsive. Reflexes 1 +. No deficits Rectal: Exam deferred. Skin: dry and warm. Assessment and Plan Assessment and Plan . IMPRESSION 1. CHF with acute exacerbation. 2. Possible obstructive sleep apnea syndrome. 3. Hypertension. 4. Elevated troponin. 5. Diabetes mellitus type 2. 6. S/P respiratory Arrest. Plan : 1. Cont O2 N/C 2 L. 2. Cont Bipap at HS from 10 PM to 6 AM 12/5 , FIo2 28 % 3. Nebs qid , duoneb. 4. Transfer to tele. 5. Cont prednisone 10 mg daily. 6. IS at bedside qid. 7. Dialysis every other day. 8. PT evaluation for activity. Sheela Lau MD Aug 12, 2016 13:00
--- NOTE | 2016-08-12 16:22 | HHI.PR ---
Subjective Remarks Patient has no complaints. Denied any pain, N/V, or SOB. Objective Vitals Vital Signs Date Time Temp Pulse Resp B/P Pulse Ox O2 Delivery O2 Flow Rate FiO2 08/12/16 14:00 62 08/12/16 12:00 97.6 65 16 143/70 93 08/12/16 12:00 65 08/12/16 10:00 65 08/12/16 08:35 98 Nasal Cannula 2.00 08/12/16 08:00 59 08/12/16 08:00 97.7 58 21 172/82 99 08/12/16 07:00 Nasal Cannula 2.00 08/12/16 06:00 58 08/12/16 04:00 58 08/12/16 04:00 98.6 58 15 162/58 98 08/12/16 02:00 58 08/12/16 01:10 99 40 08/12/16 00:00 98.5 60 19 169/84 98 08/12/16 00:00 60 08/11/16 22:40 97 40 08/11/16 22:00 62 08/11/16 20:28 99 Nasal Cannula 2.00 08/11/16 20:00 65 08/11/16 20:00 98.4 62 30 167/80 96 08/11/16 19:00 95 Nasal Cannula 2.00 I/O 08/11/16 08/11/16 08/11/16 08/12/16 08/12/16 08/12/16 07:00 15:00 23:00 07:00 15:00 23:00 Intake Total 240 ml 300 ml 480 ml 240 ml 525 ml Output Total 50 ml 150 ml 325 ml 200 ml 3750 ml Balance 190 ml 150 ml 155 ml 40 ml -3225 ml Intake Oral 240 ml 300 ml 480 ml 240 ml 525 ml Output Urine Total 50 ml 150 ml 325 ml 200 ml 250 ml Hemodialysis 3500 ml # Bowel Movements 0 0 Result Diagram: 08/12/16 0342 08/11/16 1658 Objective Remarks Gen NAD resp: cta b/l abd soft NDNT CV RRR. no r/m/g Medications and IVs Current Medications IV Flush (NS Flush) 2 ml UNSCH PRN IVF FLUSH AFTER USING IV ACCESS; Start 07/15 at 19:00; Stop 07/15/16 at 20:43; Status DC Bumetanide (Bumex Inj) 1 mg ONCE ONCE IV PUSH Last administered on 07/15/16 20:35; Start 07/15/16 at 20:30; Stop 07/15/16 at 20:31; Status DC IV Flush (NS Flush) 2 ml UNSCH PRN FLUSH FLUSH AFTER USING IV ACCESS; Start at 20:45; Stop 07/18/16 at 13:51; Status DC IV Flush (NS Flush) 2 ml BID FLUSH Last administered on 07/18/16 08:03; Start 07/15/16 at 21:00; Stop 07/18/16 at 13:51; Status DC Naloxone HCl (Narcan Inj) 0.4 mg UNSCH PRN IV SEE LABEL COMMENTS; Start at 20:45 Bumetanide (Bumex Inj) 1 mg BID@09,18 IV PUSH Last administered on 07/26/16 16 :53; Start 07/16/16 at 09:00; Stop 07/27/16 at 07:09; Status DC Bumetanide 1 mg 1 mg ONCE ONCE IV PUSH Last administered on 07/16/16 03:11; Start 07/16/16 at 03:00; Stop 07/16/16 at 03:01; Status DC Heparin Sodium/ Dextrose (Heparin-D5W Inj) 250 ml @ 0 mls/hr TITRATE IV Last administered on 07/18/16 01:42; Start 07/16/16 at 03:00; Stop 07/18/16 at 02:59; Status DC Heparin Sodium (Porcine) (Heparin Inj) 5,000 units ONCE ONCE IV Last administered on 07/16/16 03:11; Start 07/16/16 at 03:00; Stop 07/16/16 at 03:01 ; Status DC Amitriptyline HCl (Elavil) 50 mg HS PO Last administered on 07/21/16 19:33; Start 07/16/16 at 21:00; Status Hold Amlodipine Besylate (Norvasc) 10 mg DAILY PO Last administered on 07/18/16 11: 04; Start 07/16/16 at 09:00; Stop 07/22/16 at 08:48; Status DC Aspirin (Ecotrin Ec) 81 mg DAILY PO Last administered on 07/28/16 08:11; Start 07/16/16 at 09:00; Stop 07/29/16 at 11:06; Status DC Atorvastatin Calcium (Lipitor) 80 mg HS PO Last administered on 08/11/16 20:41 ; Start 07/16/16 at 21:00 Carvedilol (Coreg) 25 mg BID PO Last administered on 08/12/16 08:50; Start at 09:00 Ferrous Sulfate (Ferrous Sulfate) 325 mg BID PO Last administered on 07/30/16 09:44; Start 07/16/16 at 09:00; Stop 07/30/16 at 17:11; Status DC Gabapentin (Neurontin) 300 mg TID PO Last administered on 07/21/16 08:25; Start 07/16/16 at 09:00; Stop 07/21/16 at 10:49; Status DC Hydralazine HCl (Apresoline) 50 mg TID PO Last administered on 07/26/16 16:53 ; Start 07/16/16 at 09:00; Stop 07/27/16 at 07:09; Status DC Insulin Aspart (NovoLOG SUPPLEMENTAL SCALE) 1 ACHS SLIDING SCALE SQ Last administered on 07/18/16 11:00; Start 07/16/16 at 07:00; Stop 07/20/16 at 09:34; Status DC Dextrose (D50w (Vial) Inj) 25 ml UNSCH PRN IV PUSH HYPOGLYCEMIA - SEE COMMENTS ; Start 07/16/16 at 06:30; Stop 07/20/16 at 10:00; Status DC Glucagon (Glucagon Inj) 1 mg UNSCH PRN OTHER HYPOGLYCEMIA-SEE COMMENTS; Start 07/16/16 at 06:30; Stop 07/20/16 at 10:00; Status DC Albumin Human (Albumin 25% Inj) 25 gm BID@ IV Last administered on 09:42; Start 07/16/16 at 17:00; Stop 08/08/16 at 10:28; Status DC Lisinopril (Prinivil) 20 mg ONCE ONCE PO Last administered on 07/16/16 12:32 ; Start 07/16/16 at 11:00; Stop 07/16/16 at 11:11; Status DC Lisinopril (Prinivil) 20 mg DAILY PO Last administered on 08/12/16 08:50; Start 07/17/16 at 09:00 Acetaminophen/ Hydrocodone Bitart (Lucile 5-325 Mg) 1 tab Q6H PRN PO PAIN >5 Last administered on 08/08/16 07:29; Start 07/16/16 at 23:30 Albuterol/ Ipratropium (Duoneb Neb) 1 ampule Q4HR NEB PRN NEB SOB/WHEEZING Last administered on 07/17/16 23:29; Start 07/17/16 at 09:45; Stop 07/18/16 at 13: 52; Status DC Ondansetron HCl (Zofran Inj) 4 mg Q6HR PRN IV PUSH nausea Last administered on 07/31/16 14:17; Start 07/18/16 at 06:00 Etomidate 20 mg 20 mg STK-MED ONCE .ROUTE ; Start 07/18/16 at 13:07; Stop at 13:08; Status DC Propofol 100 ml @ 0 mls/hr TITRATE IV Last administered on 07/20/16 12:40; Start 07/18/16 at 13:30; Stop 07/20/16 at 16:43; Status DC Propofol (Diprivan 1000 Mg/100ml Inj) 100 ml @ As Directed STK-MED ONCE .ROUTE ; Start 07/18/16 at 13:24; Stop 07/18/16 at 13:25; Status DC IV Flush (NS Flush) 2 ml UNSCH PRN IVF FLUSH AFTER USING IV ACCESS; Start at 13:45 IV Flush (NS Flush) 2 ml BID IVF Last administered on 08/12/16 08:49; Start at 21:00 Albuterol/ Ipratropium (Duoneb Neb) 1 ampule Q6HR NEB NEB Last administered on 07/23/16 15:55; Start 07/18/16 at 16:00; Stop 07/23/16 at 16:06; Status DC Albuterol Sulfate (Albuterol Neb) 2.5 mg Q4HR NEB PRN INH SHORTNESS OF BREATH Last administered on 08/09/16 10:41; Start 07/18/16 at 13:45 Chlorhexidine Gluconate (Peridex 0.12% Liq) 15 ml BID@08,20 MT Last administered on 08/01/16 08:38; Start 07/18/16 at 20:00; Stop 08/01/16 at 13:08 ; Status DC Pantoprazole Sodium (Protonix Inj) 40 mg DAILY IV Last administered on 08:49; Start 07/19/16 at 09:00 Miscellaneous Information 1 [id number] Last administered on 07/18/16 13:45; Start 07/18/16 at 13:45 Chlorhexidine Gluconate (Chlorhexidine 2% Cloth) Taper DAILY@04 TOP Last administered on 08/12/16 05:51; Start 07/19/16 at 04:00; Stop 07/15/17 at 03:59 Chlorhexidine Gluconate 3 pack 3 pack UNSCH PRN TOP HYGIENIC CARE; Start at 13:45 Sodium Chloride (NS 1000 ml Inj) 1,000 ml @ 0 mls/hr Q0M PRN IV For Prime & Rinse Back; Start 07/19/16 at 12:15; Stop 07/29/16 at 19:00; Status DC Heparin Sodium (Porcine) 8000 units 8,000 units UNSCH PRN IVF WITH DIALYSIS; Start 07/19/16 at 12:15; Stop 07/29/16 at 19:01; Status DC Sodium Chloride 1,000 ml @ 200 mls/hr Q5H PRN IV WITH DIALYSIS; Start 07/19/16 at 12:15; Stop 07/20/16 at 16:43; Status DC Sodium Chloride (NS 1000 ml Inj) 1,000 ml @ 0 mls/hr Q0M PRN IV WITH DIALYSIS; Start 07/19/16 at 12:15; Stop 07/29/16 at 19:01; Status DC Mannitol (Mannitol Inj) 12.5 gm UNSCH PRN IV WITH DIALYSIS; Start 07/19/16 at 12 :15; Stop 07/29/16 at 19:01; Status DC Albumin Human (Albumin 25% Inj) 25 gm UNSCH PRN IV WITH DIALYSIS; Start at 12:15; Stop 07/29/16 at 19:01; Status DC IV Flush (NS Flush) 5 ml UNSCH PRN IVF WITH DIALYSIS; Start 07/19/16 at 12:15; Stop 07/29/16 at 19:00; Status DC Heparin Sodium (Porcine) (Heparin Inj) UNSCH PRN .XX WITH DIALYSIS; Start 07/19 at 12:15; Stop 07/29/16 at 19:01; Status DC Gentamicin Sulfate (Gentamicin (Dialysis) Inj) 20 mg UNSCH PRN IV WITH DIALYSIS ; Start 07/19/16 at 12:15; Stop 07/29/16 at 19:00; Status DC Ondansetron HCl (Zofran Inj) 4 mg UNSCH PRN IV WITH DIALYSIS; Start 07/19/16 at 12:15; Stop 07/29/16 at 19:01; Status DC Acetaminophen (Tylenol) 650 mg UNSCH PRN PO for headach, pain, temp > 101F Last administered on 07/20/16 20:41; Start 07/19/16 at 12:15; Stop 07/29/16 at 19 :01; Status DC Diphenhydramine HCl (Benadryl) 25 mg UNSCH PRN PO for hives/itching/anaphylaxis ; Start 07/19/16 at 12:15; Stop 07/29/16 at 19:01; Status DC Nitroglycerin (Nitrostat Sl) 0.4 mg UNSCH PRN SL CHEST PAIN; Start 07/19/16 at 12:15; Stop 07/29/16 at 19:01; Status DC Clonidine (Catapres) 0.1 mg UNSCH PRN PO for BP > 180/100 X 2 readings Last administered on 07/27/16 09:05; Start 07/19/16 at 12:15; Stop 07/29/16 at 19:01 ; Status DC Epoetin Joseph (Epogen Inj) 4,000 units UNSCH PRN IV WITH DIALYSIS; Start at 12:15; Stop 07/29/16 at 19:01; Status DC Gelatin 1 foam 1 foam UNSCH PRN TOP SEE LABEL COMMENTS; Start 07/19/16 at 12:15 ; Stop 07/29/16 at 19:01; Status DC Cefazolin Sodium/ Dextrose 50 ml @ 100 mls/hr ONCE ONCE IV Last administered on 07/19/16 14:02; Start 07/19/16 at 13:00; Stop 07/19/16 at 13:29; Status DC Vancomycin HCl/ Sodium Chloride (Vancomycin Inj/ NS 250 ml Inj) 250 ml @ 250 mls/hr ONCE ONCE IV Last administered on 07/19/16 13:01; Start 07/19/16 at 13: 00; Stop 07/19/16 at 13:59; Status DC Midazolam HCl (Versed Inj) 2 mg STK-MED ONCE .ROUTE ; Start 07/19/16 at 16:53; Stop 07/19/16 at 16:54; Status DC Fentanyl Citrate (fentaNYL INJ) 250 mcg STK-MED ONCE .ROUTE ; Start 07/19/16 at 16:53; Stop 07/19/16 at 16:54; Status DC Heparin Sodium (Porcine) (*HEPARIN INJ Periprocedural ONLY) 10,000 units STK- MED ONCE .ROUTE ; Start 07/19/16 at 17:06; Stop 07/19/16 at 17:07; Status DC Lidocaine/ Epinephrine (Xylocaine-Epi 1%-1:100,000 Inj) 20 ml STK-MED ONCE .ROUTE ; Start 07/19/16 at 17:06; Stop 07/19/16 at 17:07; Status DC Flumazenil (Romazicon Inj) 0.5 mg STK-MED ONCE .ROUTE ; Start 07/19/16 at 17:51; Stop 07/19/16 at 17:52; Status DC Heparin Sodium (Porcine) (Heparin Inj) 5,000 units Q12HR SQ Last administered on 08/12/16 08:50; Start 07/20/16 at 21:00 Dextrose (D50w (Vial) Inj) 25 ml UNSCH PRN IV PUSH HYPOGLYCEMIA-SEE COMMENTS; Start 07/20/16 at 09:45 Glucagon (Glucagon Inj) 1 mg UNSCH PRN OTHER HYPOGLYCEMIA-SEE COMMENTS; Start 07/20/16 at 09:45 Insulin Human Regular (NovoLIN R SUPPLEMENTAL SCALE) 1 Q6H SQ Last administered on 08/12/16 11:00; Start 07/20/16 at 11:00 Epinephrine HCl (EPINEPHrine (1:10,000) INJ) 1 mg STK-MED ONCE IV ; Start at 05:00; Stop 07/20/16 at 16:33; Status DC Sodium Bicarbonate (Sodium Bicarbonate 8.4% Inj) 50 meq STK-MED ONCE IV ; Start 07/19/16 at 05:00; Stop 07/20/16 at 16:33; Status DC Racepinephrine (Racepinephrine 2.25% Neb) 0.5 ml STK-MED ONCE .ROUTE ; Start 07/21/16 at 02:10; Stop 07/21/16 at 02:11; Status DC Dexamethasone Sodium Phosphate 4 mg 4 mg ONCE ONCE IV PUSH Last administered on 07/21/16 04:04; Start 07/21/16 at 03:45; Stop 07/21/16 at 03:46; Status DC Ceftriaxone Sodium/Sodium Chloride (Rocephin Inj/NS Inj) 100 ml @ 200 mls/hr Q24H IV Last administered on 07/23/16 09:00; Start 07/21/16 at 09:00; Stop at 16:16; Status DC Morphine Sulfate (Morphine Inj) 1 mg ONCE ONCE IV PUSH Last administered on 09:33; Start 07/21/16 at 09:15; Stop 07/21/16 at 09:16; Status DC Gabapentin (Neurontin) 300 mg DAILY PO Last administered on 07/30/16 09:44; Start 07/22/16 at 09:00; Stop 07/30/16 at 12:40; Status DC Labetalol HCl (Trandate Inj) 10 mg Q4H PRN IV PUSH SBP >165 Last administered on 08/05/16 11:15; Start 07/22/16 at 04:45 Hydralazine HCl (Apresoline Inj) 10 mg Q4H PRN IV PUSH SBP >165 Last administered on 08/04/16 11:04; Start 07/22/16 at 05:30; Stop 08/04/16 at 15:14 ; Status DC Hydralazine HCl (Apresoline Inj) 10 mg NOW IV Last administered on 07/22/16 06: 47; Start 07/22/16 at 06:45; Stop 07/22/16 at 08:30; Status DC Nifedipine (Procardia) 10 mg Q8HR PO Last administered on 07/23/16 04:40; Start 07/22/16 at 09:00; Stop 07/23/16 at 09:57; Status DC Nystatin (Mycostatin Powder) 1 applic Q12HR PRN TOPICAL rash; Start 07/22/16 at 16:00 Linezolid (Zyvox) 600 mg Q12H PO Last administered on 07/23/16 13:50; Start 07/22/16 at 15:00; Stop 07/23/16 at 20:46; Status DC Nifedipine (Procardia) 20 mg Q8HR PO Last administered on 08/12/16 14:07; Start 07/23/16 at 14:00 Albuterol/ Ipratropium (Duoneb Neb) 1 ampule Q4HR NEB NEB Last administered on 07/31/16 03:40; Start 07/23/16 at 18:00; Stop 07/31/16 at 07:05; Status DC Chlorhexidine Gluconate 15 ml 15 ml BID@08,20 MT Last administered on 08:00; Start 07/23/16 at 20:00 Propofol 100 ml @ 0 mls/hr TITRATE IV Last administered on 07/30/16 06:54; Start 07/23/16 at 19:30; Status Hold Fentanyl Citrate (fentaNYL DRIP) 250 ml @ 0 mls/hr TITRATE IV Last administered on 07/24/16 00:59; Start 07/23/16 at 19:30; Stop 07/30/16 at 08:11; Status DC Mupirocin (Bactroban Nasal 2% Oint) 1 applic Taper BID EACH NARE Last administered on 08/12/16 08:49; Start 07/23/16 at 21:00; Stop 07/19/17 at 20:59 IV Flush (NS Flush) DAILY IVF Last administered on 08/12/16 08:49; Start 07/23 at 20:00 IV Flush UNSCH PRN IVF SEE PROTOCOL; Start 07/23/16 at 20:00 Sodium Chloride 1,000 ml @ 84 mls/hr [id number] IV Last administered on 08:20; Start 07/23/16 at 20:45; Stop 07/26/16 at 11:24; Status DC Cefepime HCl 2000 mg/Sodium Chloride 100 ml @ 200 mls/hr DAILY IV Last administered on 07/26/16 08:29; Start 07/23/16 at 22:00; Stop 07/26/16 at 14:28 ; Status DC Clindamycin Phosphate 600 mg/ Sodium Chloride 104 ml @ 208 mls/hr Q8H IV Last administered on 07/24/16 06:08; Start 07/23/16 at 23:00; Stop 07/24/16 at 10:54; Status DC Linezolid (Zyvox 600 Mg Premix) 300 ml @ 300 mls/hr Q12HR IV Last administered on 08/02/16 08:12; Start 07/24/16 at 11:00; Stop 08/02/16 at 15:34 ; Status DC Nitroglycerin (Nitroglycerin 2% Oint) 2 inch Q6H PRN TOPICAL SBP> 160 Last administered on 08/11/16 17:09; Start 07/25/16 at 04:15 Epinephrine HCl (EPINEPHrine (1:10,000) INJ) 1 mg STK-MED ONCE .ROUTE ; Start at 16:22; Stop 07/25/16 at 16:23; Status DC Atropine Sulfate (Atropine Inj) 1 mg STK-MED ONCE .ROUTE ; Start 07/25/16 at 16: 22; Stop 07/25/16 at 16:23; Status DC Lidocaine HCl (Xylocaine 2% Inj) 100 mg STK-MED ONCE .ROUTE ; Start 07/25/16 at 16:23; Stop 07/25/16 at 16:24; Status DC Atropine Sulfate (Atropine Inj) 1 mg STK-MED ONCE IV ; Start 07/23/16 at 12:07; Stop 07/26/16 at 12:10; Status DC Sodium Bicarbonate (Sodium Bicarbonate 8.4% Inj) 50 meq STK-MED ONCE IV ; Start 07/23/16 at 12:08; Stop 07/26/16 at 12:10; Status DC Epinephrine HCl (EPINEPHrine (1:10,000) INJ) 1 mg STK-MED ONCE IV ; Start at 12:09; Stop 07/26/16 at 12:10; Status DC Sodium Chloride (Sodium Chloride 0.9% Inj) 20 ml STK-MED ONCE IV ; Start at 12:10; Stop 07/26/16 at 12:10; Status DC Bumetanide (Bumex Inj) 2 mg BID@09,18 IV PUSH Last administered on 07/29/16 16 :49; Start 07/27/16 at 09:00; Stop 07/29/16 at 19:02; Status DC Hydralazine HCl (Apresoline) 75 mg TID PO ; Start 07/27/16 at 09:00; Stop at 09:00; Status DC Docusate Sodium (Colace) 100 mg BID PO Last administered on 08/12/16 08:50; Start 07/27/16 at 09:00 Sennosides (Senokot) 8.6 mg Q12HR PO Last administered on 08/12/16 08:50; Start 07/27/16 at 09:00 Polyethylene Glycol (Miralax) 17 gm ONCE ONCE PO Last administered on 07:59; Start 07/27/16 at 07:15; Stop 07/27/16 at 07:17; Status DC Mineral Oil (Mineral Oil Liq) 15 ml ONCE ONCE PO Last administered on 07:58; Start 07/27/16 at 07:15; Stop 07/27/16 at 07:17; Status DC Potassium Chloride (KCl 40 Meq/30 ml Liq) 40 meq ONCE ONCE PO Last administered on 07/27/16 07:58; Start 07/27/16 at 07:15; Stop 07/27/16 at 07:16 ; Status DC Hydralazine HCl (Apresoline) 100 mg TID PO Last administered on 07/29/16 08:01 ; Start 07/27/16 at 09:00; Stop 07/29/16 at 11:02; Status DC Miscellaneous (Pill Splitter) 1 ea UNSCH PRN OTHER SEE LABEL COMMENTS; Start at 07:15; Status Cancel Clonidine 0.1 mg 0.1 mg Q8HR PO Last administered on 07/27/16 13:58; Start 05/02 at 14:00; Stop 07/27/16 at 18:12; Status DC Clevidipine (Cleviprex Inj) 50 ml @ 0 mls/hr TITRATE IV Last administered on 01:43; Start 07/27/16 at 11:00; Stop 07/30/16 at 17:22; Status DC Clonidine (Catapres) 0.2 mg Q8HR PO Last administered on 08/12/16 14:07; Start 07/27/16 at 22:00 Alteplase, Recombinant (Cathflo Activase Inj) 2 mg ONCE ONCE IV Last administered on 07/29/16 07:03; Start 07/29/16 at 06:45; Stop 07/29/16 at 06:46 ; Status DC Alteplase, Recombinant (Cathflo Activase Inj) 2 mg ONCE ONCE IV Last administered on 07/29/16 08:05; Start 07/29/16 at 06:45; Stop 07/29/16 at 06:46 ; Status DC Alteplase, Recombinant (Cathflo Activase Inj) 2 mg ONCE ONCE IV Last administered on 07/29/16 08:05; Start 07/29/16 at 06:45; Stop 07/29/16 at 06:46 ; Status DC Hydralazine HCl (Apresoline) 100 mg Q8HR PO Last administered on 08/12/16 14: 07; Start 07/29/16 at 14:00 Ferrous Sulfate (Ferrous Sulfate Liq) 300 mg BID PO Last administered on 08:50; Start 07/29/16 at 12:00 Aspirin (Aspirin Chew) 81 mg DAILY PO Last administered on 08/12/16 08:49; Start 07/29/16 at 12:00 Bumetanide 2 mg 2 mg Q6HR IV PUSH Last administered on 08/02/16 11:17; Start 07/30/16 at 00:00; Stop 08/02/16 at 13:03; Status DC Potassium Chloride (KCl 40 Meq Premix Inj) 100 ml @ 25 mls/hr BOLUS ONCE IV Last administered on 07/29/16 21:05; Start 07/29/16 at 19:15; Stop 07/29/16 at 23:14; Status DC Potassium Chloride 20 meq 20 meq Q12HR TUBE Last administered on 07/30/16 09: 45; Start 07/29/16 at 21:00; Stop 07/30/16 at 11:46; Status DC Dexmedetomidine HCl (Precedex Inj) 50 ml @ 0 mls/hr TITRATE IV Last administered on 07/30/16 15:35; Start 07/30/16 at 08:00; Stop 07/30/16 at 22:25 ; Status DC Potassium Chloride 40 meq 40 meq Q12HR TUBE Last administered on 08/03/16 23: 47; Start 07/30/16 at 21:00; Stop 08/05/16 at 16:51; Status DC Potassium Chloride/Sodium Chloride (KCl Inj/NS Inj) 115 ml @ 38.333 mls/ hr ONCE ONCE IV-CENTRAL Last administered on 07/30/16 14:09; Start 07/30/16 at 12:00; Stop 07/30/16 at 14:59; Status DC Gabapentin (Neurontin) 300 mg BID PO Last administered on 08/12/16 08:50; Start 07/30/16 at 21:00 Metoprolol Tartrate (Lopressor Inj) 2.5 mg NOW ONCE IV PUSH Last administered on 07/30/16 18:00; Start 07/30/16 at 17:15; Stop 07/30/16 at 17:16; Status DC Metoprolol Tartrate 5 mg 5 mg STK-MED ONCE .ROUTE Last administered on 17:11; Start 07/30/16 at 17:10; Stop 07/30/16 at 17:11; Status DC Nicardipine HCl 25 mg/Sodium Chloride 260 ml @ 0 mls/hr TITRATE IV Last administered on 08/07/16 13:00; Start 07/30/16 at 17:30 Dexmedetomidine HCl 1000 mcg/ Sodium Chloride 250 ml @ 0 mls/hr TITRATE IV Last administered on 07/31/16 09:12; Start 07/30/16 at 22:25; Stop 08/08/16 at 12:35; Status DC Potassium Chloride (KCl 20 Meq Premix Inj) 100 ml @ 50 mls/hr Q2H IV Last administered on 07/31/16 08:15; Start 07/31/16 at 07:00; Stop 07/31/16 at 10:59 ; Status DC Furosemide (Lasix Inj) 40 mg ONCE ONCE IV PUSH Last administered on 07/31/16 08:12; Start 07/31/16 at 07:15; Stop 07/31/16 at 07:16; Status DC Nicardipine HCl (Cardene Inj) 25 mg STK-MED ONCE .ROUTE ; Start 07/31/16 at 09: 06; Stop 07/31/16 at 09:07; Status DC Promethazine HCl 25 mg 25 mg Q6H PRN IM NAUSEA Last administered on 08/02/16 13:17; Start 07/31/16 at 17:45 Potassium Chloride 30 meq/ Sodium Chloride 115 ml @ 38.333 mls/ hr ONCE ONCE IV-CENTRAL ; Start 08/01/16 at 15:00; Stop 08/01/16 at 17:59; Status Cancel Potassium Chloride (KCl 10 Meq Premix Inj) 100 ml @ 100 mls/hr Q1H IV Last administered on 08/01/16 15:08; Start 08/01/16 at 14:00; Stop 08/01/16 at 16:59 ; Status DC Bumetanide (Bumex Inj) 2 mg Q8HR ALT NEB IV PUSH Last administered on 11:49; Start 08/02/16 at 20:00; Stop 08/03/16 at 13:29; Status DC Prednisone 10 mg 10 mg BID PO Last administered on 08/09/16 09:08; Start 08/02 at 21:00; Stop 08/09/16 at 12:49; Status DC Bumetanide (Bumex Inj) 100 ml @ 8 mls/hr CONTINUOUS IV Last administered on 03:23; Start 08/03/16 at 15:30; Stop 08/05/16 at 12:56; Status DC Hydralazine HCl 20 mg 20 mg Q4H PRN IV PUSH SBP >165 Last administered on 03:26; Start 08/04/16 at 18:00 Sodium Chloride (NS 1000 ml Inj) 1,000 ml @ 0 mls/hr Q0M PRN IV For Prime & Rinse Back Last administered on 08/12/16 08:41; Start 08/04/16 at 15:14 Heparin Sodium (Porcine) 8000 units 8,000 units UNSCH PRN IVF WITH DIALYSIS; Start 08/04/16 at 15:15 Sodium Chloride 1,000 ml @ 200 mls/hr Q5H PRN IV WITH DIALYSIS; Start 08/04/16 at 15:14 Sodium Chloride (NS 1000 ml Inj) 1,000 ml @ 0 mls/hr Q0M PRN IV WITH DIALYSIS; Start 08/04/16 at 15:14 Mannitol (Mannitol Inj) 12.5 gm UNSCH PRN IV WITH DIALYSIS Last administered on 08/08/16 08:07; Start 08/04/16 at 15:15 Albumin Human (Albumin 25% Inj) 25 gm UNSCH PRN IV WITH DIALYSIS; Start at 15:15 IV Flush (NS Flush) 5 ml UNSCH PRN IVF WITH DIALYSIS; Start 08/04/16 at 15:15 Heparin Sodium (Porcine) (Heparin Inj) UNSCH PRN .XX WITH DIALYSIS Last administered on 08/12/16 08:41; Start 08/04/16 at 15:15 Gentamicin Sulfate (Gentamicin (Dialysis) Inj) 20 mg UNSCH PRN IV WITH DIALYSIS Last administered on 08/12/16 08:41; Start 08/04/16 at 15:15 Ondansetron HCl (Zofran Inj) 4 mg UNSCH PRN IV WITH DIALYSIS Last administered on 08/06/16 18:47; Start 08/04/16 at 15:15 Acetaminophen (Tylenol) 650 mg UNSCH PRN PO for headach, pain, temp > 101F; Start 08/04/16 at 15:15 Diphenhydramine HCl (Benadryl) 25 mg UNSCH PRN PO for hives/itching/anaphylaxis ; Start 08/04/16 at 15:15 Nitroglycerin (Nitrostat Sl) 0.4 mg UNSCH PRN SL CHEST PAIN; Start 08/04/16 at 15:15 Clonidine (Catapres) 0.1 mg UNSCH PRN PO for BP > 180/100 X 2 readings Last administered on 08/11/16 18:01; Start 08/04/16 at 15:15 Epoetin Joseph (Epogen Inj) 10,000 units UNSCH PRN IV WITH DIALYSIS Last administered on 08/12/16 08:41; Start 08/04/16 at 15:15 Gelatin (Gelfoam 12 Mm/7 Mm Top) 1 foam UNSCH PRN TOP SEE LABEL COMMENTS; Start 08/04/16 at 15:15 Epinephrine HCl (EPINEPHrine (1:10,000) INJ) 1 mg STK-MED ONCE .ROUTE ; Start at 11:12; Stop 08/05/16 at 11:13; Status DC Atropine Sulfate (Atropine Inj) 1 mg STK-MED ONCE .ROUTE ; Start 08/05/16 at 11: 12; Stop 08/05/16 at 11:13; Status DC Lidocaine HCl (Xylocaine 2% Inj) 100 mg STK-MED ONCE .ROUTE ; Start 08/05/16 at 11:12; Stop 08/05/16 at 11:13; Status DC Heparin Sodium (Porcine) (*HEPARIN INJ Periprocedural ONLY) 10,000 units STK- MED ONCE .ROUTE Last administered on 08/05/16 12:05; Start 08/05/16 at 12:03; Stop 08/05/16 at 12:04; Status DC IV Flush (NS Flush) UNSCH PRN IVF SEE PROTOCOL; Start 08/05/16 at 12:15 Heparin Sodium (Porcine) (Heparin Inj) UNSCH PRN IVF SEE PROTOCOL; Start 08/05 at 12:15 Prednisone (Deltasone) 10 mg DAILY PO Last administered on 08/12/16 08:50; Start 08/10/16 at 09:00 Albuterol/ Ipratropium (Duoneb Neb) 1 ampule QID NEB NEB Last administered on 08/12/16 16:12; Start 08/09/16 at 16:00 Date of Insertion: Jul 23, 2016 Line: Central Venous Catheter Side: Left Location: Internal, Jugular A/P Problem List: (1) Acute exacerbation of CHF (congestive heart failure) ICD Code: I50.9 Status: Acute (2) Stage 4 chronic kidney disease ICD Code: N18.4 Status: Acute (3) Elevated troponin ICD Code: R79.89 Status: Acute (4) HTN (hypertension) ICD Code: I10 Status: Chronic (5) Diabetes ICD Code: E11.9 Status: Chronic Assessment and Plan 50 Y/O female with a medical history significant for CHF, depression, HTN, dm, and ckd with prolonged hospital stay secondary to recurrent intubation, status post cardiac arrest. Patient currently still in the ICU and slowly improving. Acute respiratory failure: Likely a combination of renal failure, diastolic heart failure, pulmonary edema, possible COPD, HCAP with MRSA in the sputum. Patient has been intubated about 3 times during this hospitalization. Currently on BiPAP at night and as needed. - Appreciate pulmonology following. On prednisone. bipap per Pulmonology - Infectious disease following. s/p Rocephin and Zyvox. Antibiotics discontinued. Monitor patient off antibiotic. - Patient currently on nasal cannula with bipap as needed. BRENDA RN. Acute on chronic kidney disease: Now on dialysis.. -Appreciate nephrology following. Most likely advanced diabetic nephropathy. Status post Vas-Cath placement. Dialysis per nephrology. continue to f/u with BMP. - Vascular surgery planning for aVF Encephalopathy: -RESOLVED. Secondary to multiple comorbid conditions above. Anoxic injury also possibility. Continue to follow. CHF: Echocardiogram 05/21 revealed EF 50%. Mildly dilated ventricle. Diffuse hypokinesis. Echocardiogram 07/23 reveals EF 45-50%. No regional motion abnormality. POOL 59 mmHg. Mild TR. - Continue Coreg, lisinopril. Previously followed by cardiology. Troponin likely due to fluid overloaded state per Cards. previous stress test showing mild small lateral wall defect. Severe deconditioning: Secondary to above comorbidities. Need to mobilize patient. PT following blood respiratory status limit therapy. Hypertension: Resistant, difficult to control. On Coreg 25mg BID, hydralazine 100mg TID, lisinopril 20 daily, clonidine 0.2 mg every 8 hours Continue atorvastatin 80 mg daily's for dyslipidemia. Cont Nifedipine. Continue hydralazine IV as needed. Diabetes mellitus: - Continue sliding scale insulin with Accu-Chek Anemia: Currently on iron sulfate 325mg PO twice a day/home medication. Monitor CBC. Transfuse for hemoglobin less than 7 GI prophylaxis: Stool softener PRN constipation. DVT PPx: SCDs/Heparin Dispo: once stable cleared by stereoptician can be d/c to SNF. Problem Qualifiers (1) Acute exacerbation of CHF (congestive heart failure): Qualified Code: I50.9 - Acute on chronic congestive heart failure, unspecified congestive heart failure type (2) HTN (hypertension): Qualified Code: I10 - Essential hypertension (3) Diabetes: Valorie Parekh MD Aug 12, 2016 16:22
[2016-08-12] MEDS: ATORVASTATIN 80 MG TAB PO SCH (22:12)
[2016-08-13] VITALS (14 sets, daily range): BP systolic 122–177; BP diastolic 76–87; PULSE 58–67; RESP 9–20; TEMP 97.3–98.6; O2SAT 92–97
[2016-08-13] MEDS: CHLORHEXIDINE GLUCONATE 2 % 1 PACK (2 CLOTHS) TOP SCH (04:00)
[2016-08-13 04:50] LABS: HEMATOCRIT 28.6 % (35.0-46.0); MEAN CELL VOLUME 71.4 FL (80.0-100.0); MEAN CORPUSCULAR HEMOGLOBIN 22.4 PG (27.0-34.0); MEAN CORPUSCULAR HGB CONC 31.3 % (32.0-36.0); PLATELET COUNT 156 TH/MM3 (150-450); RED CELL DISTRIBUTION WIDTH 18.4 % (11.6-17.2); WHITE BLOOD COUNT 5.8 TH/MM3 (4.0-11.0)
[2016-08-13 04:59] LABS: BICARBONATE 28.4 MEQ/L (21.0-32.0); POTASSIUM 4.2 MEQ/L (3.5-5.1)
[2016-08-13 05:02] LABS: REVIEW FLAG FINAL
[2016-08-13] MEDS: INSULIN NovoLIN REGULAR SUPPLEMENTAL SCALE SQ SCH ×4 (05:35→23:21)
[2016-08-13] MEDS: NIFEdipine 20 MG CAP PO SCH ×3 (05:36→21:09)
[2016-08-13] MEDS: cloNIDine HCL 0.1 MG TAB PO SCH ×3 (05:36→21:09)
[2016-08-13] MEDS: hydrALAZINE HCL 50 MG TAB PO SCH ×3 (05:36→21:09)
[2016-08-13] MEDS: CHLORHEXIDINE 0.12% (ORAL KIT) 15 ML CUP MT SCH ×2 (08:00→20:00)
[2016-08-13] MEDS: HEPARIN SODIUM - SQ 10,000 UNITS/ML VIAL SQ SCH ×2 (08:41→20:41)
[2016-08-13] MEDS: CARVEDILOL 12.5 MG TAB PO SCH ×2 (08:41→20:42)
[2016-08-13] MEDS: FERROUS SULFATE 300 MG /5ML UDC PO SCH ×2 (08:41→20:41)
[2016-08-13] MEDS: DOCUSATE SODIUM 100 MG CAP PO SCH ×2 (08:42→20:41)
[2016-08-13] MEDS: ASPIRIN 81 MG CHEW TAB PO SCH (08:42)
[2016-08-13] MEDS: GABAPENTIN 300 MG CAP PO SCH ×2 (08:42→20:41)
[2016-08-13] MEDS: LISINOPRIL 20 MG TAB PO SCH (08:42)
[2016-08-13] MEDS: RESP: ALBUTEROL 2.5 MG/IPRATROPIUM 0.5 MG NEB (SCH) NEB ×2 (08:43→12:46)
[2016-08-13] MEDS: SENNOSIDES 8.6 MG TAB PO SCH ×2 (08:45→20:41)
[2016-08-13] MEDS: predniSONE 10 MG TAB PO SCH (08:46)
[2016-08-13] MEDS: SODIUM CHLORIDE 0.9% FLUSH 5 ML FLUSH IVF SCH ×3 (08:46→20:42)
[2016-08-13] MEDS: PANTOPRAZOLE SODIUM 40 MG VIAL IV SCH (08:46)
[2016-08-13] MEDS: MUPIROCIN 2% OINT 1 APPLIC/GM SYR EACH NARE SCH ×2 (08:46→20:42)
--- NOTE | 2016-08-13 10:57 | HHI.NPPN ---
Subjective History of Present Illness 50 year old with CKD 4/5 Diabetes Nephrotic range proteinuria Additional Remarks Patient is sleepy but arousable, not in distress. Review of Systems General Constitutional: Fatigue Cardiovascular Cardiac: Edema Objective Data Data 08/12/16 08/13/16 19:00 07:00 Intake Total 525 ml 480 ml Output Total 3750 ml 875 ml Balance -3225 ml -395 ml Intake Oral 525 ml 480 ml Output Urine Total 250 ml 875 ml Hemodialysis 3500 ml # Bowel Movements 0 0 Vital Signs Date Time Temp Pulse Resp B/P Pulse Ox O2 Delivery O2 Flow Rate FiO2 08/13/16 10:00 66 08/13/16 08:43 93 Nasal Cannula 2.00 08/13/16 08:00 98.0 60 9 166/81 94 08/13/16 08:00 62 08/13/16 07:00 95 Nasal Cannula 2.00 08/13/16 06:00 61 08/13/16 04:00 97.9 62 17 177/87 97 08/13/16 04:00 62 08/13/16 02:00 65 08/13/16 00:00 98.1 67 20 175/87 96 08/13/16 00:00 67 08/12/16 22:00 71 08/12/16 20:00 98.1 72 12 178/88 91 08/12/16 20:00 72 08/12/16 19:51 95 Nasal Cannula 2.00 08/12/16 19:00 Nasal Cannula 2.00 08/12/16 18:00 72 08/12/16 16:00 97.8 64 18 161/81 96 08/12/16 16:00 64 08/12/16 14:00 62 08/12/16 12:00 97.6 65 16 143/70 93 08/12/16 12:00 65 -: 08/13/16 0330 08/13/16 0330 Physical Exam General Appearance: No Acute Distress, Comfortable, Anxious, Obese Throat Throat Exam: Oral Mucosa [place] & Moist Neck Neck Exam: Neck Supple Pulmonary Resp Exam: Rhonchi, Decreased Bases, Diminished Breath Sounds Cardiology CV Exam: Regular, Normal Sinus Rhythm Gastrointestinal/Abdomen GI Exam: Soft, Non-Tender, Distended Extremeties Extremities Exam: Pitting Edema, Dependent Edema Neurologic Neuro Exam: Alert, Awake, Oriented Assessment/Plan Problem List: (1) ESRD (end stage renal disease) on dialysis Plan: kidney failure due to advance diabetic nephropathy need watermaster plans Has PermCath and will need AVF once stable. HD to be done in AM. Continue to remove fluid as tolerated. On Epogen for anemia. (2) Stage 4 chronic kidney disease Plan: Patient with advanced kidney disease and had the workup in May. 10 g of proteinuria Most likely has advance Diabetic Nephropathy. continue HD tomorrow (3) Hypoventilation associated with obesity syndrome Plan: critical care following (4) Nephrotic syndrome Plan: Protein to creatinine ratio above 10 10.52 (5) Acute exacerbation of CHF (congestive heart failure) Plan: This is likely due to chronic kidney disease and diastolic dysfunction (6) Diabetes Plan: Advance manifestations diabetic nephropathy, retinopathy and neuropathy (7) HTN (hypertension) Plan: Continue to monitor on PRN hydralazine Problem Qualifiers (1) Acute exacerbation of CHF (congestive heart failure): Qualified Code: I50.9 - Acute on chronic congestive heart failure, unspecified congestive heart failure type (2) Diabetes: (3) HTN (hypertension): Qualified Code: I10 - Essential hypertension Mia Medley MD Aug 13, 2016 10:57
--- NOTE | 2016-08-13 13:01 | HHI.PR ---
Subjective Remarks doing well. On O2 2 L N/C. Sitting up. No fever. Used Bipap at HS Objective Vital Signs Date Time Temp Pulse Resp B/P Pulse Ox O2 Delivery O2 Flow Rate FiO2 08/13/16 12:00 97.3 58 18 122/80 92 08/13/16 12:00 59 08/13/16 10:00 66 08/13/16 08:43 93 Nasal Cannula 2.00 08/13/16 08:00 98.0 60 9 166/81 94 08/13/16 08:00 62 08/13/16 07:00 95 Nasal Cannula 2.00 08/13/16 06:00 61 08/13/16 04:00 97.9 62 17 177/87 97 08/13/16 04:00 62 08/13/16 02:00 65 08/13/16 00:00 98.1 67 20 175/87 96 08/13/16 00:00 67 08/12/16 22:00 71 08/12/16 20:00 98.1 72 12 178/88 91 08/12/16 20:00 72 08/12/16 19:51 95 Nasal Cannula 2.00 08/12/16 19:00 Nasal Cannula 2.00 08/12/16 18:00 72 08/12/16 16:00 97.8 64 18 161/81 96 08/12/16 16:00 64 08/12/16 14:00 62 I/O 08/12/16 08/12/16 08/12/16 08/13/16 08/13/16 08/13/16 07:00 15:00 23:00 07:00 15:00 23:00 Intake Total 240 ml 525 ml 240 ml 240 ml Output Total 200 ml 3750 ml 425 ml 450 ml Balance 40 ml -3225 ml -185 ml -210 ml Intake Oral 240 ml 525 ml 240 ml 240 ml Output Urine Total 200 ml 250 ml 425 ml 450 ml Hemodialysis 3500 ml # Bowel Movements 0 0 0 Result Diagram: 08/13/16 03308/13/16 0330 Objective Remarks General: This is a very obese middle-aged lady who is alert . HEENT: Head normocephalic. Pupils are reactive. Tongue is moist. Throat is clear. Nasal mucosa clear Neck: Supple.No JVD. No lymphadenopathy. Trachea midline. Chest: Distant breath sounds and few crackles at the lung bases.Occ wheeze. Heart: The heart sounds are regular. S1 and S2. No definite murmur. No S3. Abdomen: Soft, protuberant. No mass, no organomegaly or tenderness. Bowel sounds are active. Extremities: Decreased peripheral pulses. No leg edema. Neurologic: responsive. Reflexes 1 +. No deficits Rectal: Exam deferred. Skin: dry and warm. Assessment and Plan Assessment and Plan . IMPRESSION 1. CHF with acute exacerbation. 2. Possible obstructive sleep apnea syndrome. 3. Hypertension. 4. Elevated troponin. 5. Diabetes mellitus type 2. 6. S/P respiratory Arrest. Plan : 1. Cont O2 N/C 2 L. 2. Cont Bipap at HS from 10 PM to 6 AM 12/5 , FIo2 28 % 3. Nebs qid , duoneb. 4. Transfer to tele. 5. Cont prednisone 10 mg daily. 6. IS at bedside qid. 7. Dialysis every other day. 8. PT evaluation for activity. 9. Chest X ray in am. Sheela Lau MD Aug 13, 2016 13:01
--- NOTE | 2016-08-13 13:57 | HHI.PR ---
Subjective Remarks f/u with renal failure patient has no complaints. She denied any pain or SOB. d/w patient's nurse and stated no issues. Objective Vitals Vital Signs Date Time Temp Pulse Resp B/P Pulse Ox O2 Delivery O2 Flow Rate FiO2 08/13/16 12:00 97.3 58 18 122/80 92 08/13/16 12:00 59 08/13/16 10:00 66 08/13/16 08:43 93 Nasal Cannula 2.00 08/13/16 08:00 98.0 60 9 166/81 94 08/13/16 08:00 62 08/13/16 07:00 95 Nasal Cannula 2.00 08/13/16 06:00 61 08/13/16 04:00 97.9 62 17 177/87 97 08/13/16 04:00 62 08/13/16 02:00 65 08/13/16 00:00 98.1 67 20 175/87 96 08/13/16 00:00 67 08/12/16 22:00 71 08/12/16 20:00 98.1 72 12 178/88 91 08/12/16 20:00 72 08/12/16 19:51 95 Nasal Cannula 2.00 08/12/16 19:00 Nasal Cannula 2.00 08/12/16 18:00 72 08/12/16 16:00 97.8 64 18 161/81 96 08/12/16 16:00 64 08/12/16 14:00 62 I/O 08/12/16 08/12/16 08/12/16 08/13/16 08/13/16 08/13/16 07:00 15:00 23:00 07:00 15:00 23:00 Intake Total 240 ml 525 ml 240 ml 240 ml Output Total 200 ml 3750 ml 425 ml 450 ml Balance 40 ml -3225 ml -185 ml -210 ml Intake Oral 240 ml 525 ml 240 ml 240 ml Output Urine Total 200 ml 250 ml 425 ml 450 ml Hemodialysis 3500 ml # Bowel Movements 0 0 0 Result Diagram: 08/13/1632908/13/16 033 Objective Remarks Gen NAD resp: cta b/l abd soft NDNT CV RRR. no r/m/g Medications and IVs Current Medications IV Flush (NS Flush) 2 ml UNSCH PRN IVF FLUSH AFTER USING IV ACCESS; Start 07/15 at 19:00; Stop 07/15/16 at 20:43; Status DC Bumetanide (Bumex Inj) 1 mg ONCE ONCE IV PUSH Last administered on 07/15/16 20:35; Start 07/15/16 at 20:30; Stop 07/15/16 at 20:31; Status DC IV Flush (NS Flush) 2 ml UNSCH PRN FLUSH FLUSH AFTER USING IV ACCESS; Start at 20:45; Stop 07/18/16 at 13:51; Status DC IV Flush (NS Flush) 2 ml BID FLUSH Last administered on 07/18/16 08:03; Start 07/15/16 at 21:00; Stop 07/18/16 at 13:51; Status DC Naloxone HCl (Narcan Inj) 0.4 mg UNSCH PRN IV SEE LABEL COMMENTS; Start at 20:45 Bumetanide (Bumex Inj) 1 mg BID@09,18 IV PUSH Last administered on 07/26/16 16 :53; Start 07/16/16 at 09:00; Stop 07/27/16 at 07:09; Status DC Bumetanide 1 mg 1 mg ONCE ONCE IV PUSH Last administered on 07/16/16 03:11; Start 07/16/16 at 03:00; Stop 07/16/16 at 03:01; Status DC Heparin Sodium/ Dextrose (Heparin-D5W Inj) 250 ml @ 0 mls/hr TITRATE IV Last administered on 07/18/16 01:42; Start 07/16/16 at 03:00; Stop 07/18/16 at 02:59; Status DC Heparin Sodium (Porcine) (Heparin Inj) 5,000 units ONCE ONCE IV Last administered on 07/16/16 03:11; Start 07/16/16 at 03:00; Stop 07/16/16 at 03:01 ; Status DC Amitriptyline HCl (Elavil) 50 mg HS PO Last administered on 07/21/16 19:33; Start 07/16/16 at 21:00; Status Hold Amlodipine Besylate (Norvasc) 10 mg DAILY PO Last administered on 07/18/16 11: 04; Start 07/16/16 at 09:00; Stop 07/22/16 at 08:48; Status DC Aspirin (Ecotrin Ec) 81 mg DAILY PO Last administered on 07/28/16 08:11; Start 07/16/16 at 09:00; Stop 07/29/16 at 11:06; Status DC Atorvastatin Calcium (Lipitor) 80 mg HS PO Last administered on 08/12/16 22:12 ; Start 07/16/16 at 21:00 Carvedilol (Coreg) 25 mg BID PO Last administered on 08/13/16 08:41; Start at 09:00 Ferrous Sulfate (Ferrous Sulfate) 325 mg BID PO Last administered on 07/30/16 09:44; Start 07/16/16 at 09:00; Stop 07/30/16 at 17:11; Status DC Gabapentin (Neurontin) 300 mg TID PO Last administered on 07/21/16 08:25; Start 07/16/16 at 09:00; Stop 07/21/16 at 10:49; Status DC Hydralazine HCl (Apresoline) 50 mg TID PO Last administered on 07/26/16 16:53 ; Start 07/16/16 at 09:00; Stop 07/27/16 at 07:09; Status DC Insulin Aspart (NovoLOG SUPPLEMENTAL SCALE) 1 ACHS SLIDING SCALE SQ Last administered on 07/18/16 11:00; Start 07/16/16 at 07:00; Stop 07/20/16 at 09:34; Status DC Dextrose (D50w (Vial) Inj) 25 ml UNSCH PRN IV PUSH HYPOGLYCEMIA - SEE COMMENTS ; Start 07/16/16 at 06:30; Stop 07/20/16 at 10:00; Status DC Glucagon (Glucagon Inj) 1 mg UNSCH PRN OTHER HYPOGLYCEMIA-SEE COMMENTS; Start 07/16/16 at 06:30; Stop 07/20/16 at 10:00; Status DC Albumin Human (Albumin 25% Inj) 25 gm BID@ IV Last administered on 09:42; Start 07/16/16 at 17:00; Stop 08/08/16 at 10:28; Status DC Lisinopril (Prinivil) 20 mg ONCE ONCE PO Last administered on 07/16/16 12:32 ; Start 07/16/16 at 11:00; Stop 07/16/16 at 11:11; Status DC Lisinopril (Prinivil) 20 mg DAILY PO Last administered on 08/13/16 08:42; Start 07/17/16 at 09:00 Acetaminophen/ Hydrocodone Bitart ([place] 5-325 Mg) 1 tab Q6H PRN PO PAIN >5 Last administered on 08/08/16 07:29; Start 07/16/16 at 23:30 Albuterol/ Ipratropium (Duoneb Neb) 1 ampule Q4HR NEB PRN NEB SOB/WHEEZING Last administered on 07/17/16 23:29; Start 07/17/16 at 09:45; Stop 07/18/16 at 13: 52; Status DC Ondansetron HCl (Zofran Inj) 4 mg Q6HR PRN IV PUSH nausea Last administered on 07/31/16 14:17; Start 07/18/16 at 06:00 Etomidate 20 mg 20 mg STK-MED ONCE .ROUTE ; Start 07/18/16 at 13:07; Stop at 13:08; Status DC Propofol 100 ml @ 0 mls/hr TITRATE IV Last administered on 07/20/16 12:40; Start 07/18/16 at 13:30; Stop 07/20/16 at 16:43; Status DC Propofol (Diprivan 1000 Mg/100ml Inj) 100 ml @ As Directed STK-MED ONCE .ROUTE ; Start 07/18/16 at 13:24; Stop 07/18/16 at 13:25; Status DC IV Flush (NS Flush) 2 ml UNSCH PRN IVF FLUSH AFTER USING IV ACCESS; Start at 13:45 IV Flush (NS Flush) 2 ml BID IVF Last administered on 08/13/16 08:46; Start at 21:00 Albuterol/ Ipratropium (Duoneb Neb) 1 ampule Q6HR NEB NEB Last administered on 07/23/16 15:55; Start 07/18/16 at 16:00; Stop 07/23/16 at 16:06; Status DC Albuterol Sulfate (Albuterol Neb) 2.5 mg Q4HR NEB PRN INH SHORTNESS OF BREATH Last administered on 08/09/16 10:41; Start 07/18/16 at 13:45 Chlorhexidine Gluconate (Peridex 0.12% Liq) 15 ml BID@08,20 MT Last administered on 08/01/16 08:38; Start 07/18/16 at 20:00; Stop 08/01/16 at 13:08 ; Status DC Pantoprazole Sodium (Protonix Inj) 40 mg DAILY IV Last administered on 08:46; Start 07/19/16 at 09:00 Miscellaneous Information 1 [id number] Last administered on 07/18/16 13:45; Start 07/18/16 at 13:45 Chlorhexidine Gluconate (Chlorhexidine 2% Cloth) Taper DAILY@04 TOP Last administered on 08/13/16 04:00; Start 07/19/16 at 04:00; Stop 07/15/17 at 03:59 Chlorhexidine Gluconate 3 pack 3 pack UNSCH PRN TOP HYGIENIC CARE; Start at 13:45 Sodium Chloride (NS 1000 ml Inj) 1,000 ml @ 0 mls/hr Q0M PRN IV For Prime & Rinse Back; Start 07/19/16 at 12:15; Stop 07/29/16 at 19:00; Status DC Heparin Sodium (Porcine) 8000 units 8,000 units UNSCH PRN IVF WITH DIALYSIS; Start 07/19/16 at 12:15; Stop 07/29/16 at 19:01; Status DC Sodium Chloride 1,000 ml @ 200 mls/hr Q5H PRN IV WITH DIALYSIS; Start 07/19/16 at 12:15; Stop 07/20/16 at 16:43; Status DC Sodium Chloride (NS 1000 ml Inj) 1,000 ml @ 0 mls/hr Q0M PRN IV WITH DIALYSIS; Start 07/19/16 at 12:15; Stop 07/29/16 at 19:01; Status DC Mannitol (Mannitol Inj) 12.5 gm UNSCH PRN IV WITH DIALYSIS; Start 07/19/16 at 12 :15; Stop 07/29/16 at 19:01; Status DC Albumin Human (Albumin 25% Inj) 25 gm UNSCH PRN IV WITH DIALYSIS; Start at 12:15; Stop 07/29/16 at 19:01; Status DC IV Flush (NS Flush) 5 ml UNSCH PRN IVF WITH DIALYSIS; Start 07/19/16 at 12:15; Stop 07/29/16 at 19:00; Status DC Heparin Sodium (Porcine) (Heparin Inj) UNSCH PRN .XX WITH DIALYSIS; Start 07/19 at 12:15; Stop 07/29/16 at 19:01; Status DC Gentamicin Sulfate (Gentamicin (Dialysis) Inj) 20 mg UNSCH PRN IV WITH DIALYSIS ; Start 07/19/16 at 12:15; Stop 07/29/16 at 19:00; Status DC Ondansetron HCl (Zofran Inj) 4 mg UNSCH PRN IV WITH DIALYSIS; Start 07/19/16 at 12:15; Stop 07/29/16 at 19:01; Status DC Acetaminophen (Tylenol) 650 mg UNSCH PRN PO for headach, pain, temp > 101F Last administered on 07/20/16 20:41; Start 07/19/16 at 12:15; Stop 07/29/16 at 19 :01; Status DC Diphenhydramine HCl (Benadryl) 25 mg UNSCH PRN PO for hives/itching/anaphylaxis ; Start 07/19/16 at 12:15; Stop 07/29/16 at 19:01; Status DC Nitroglycerin (Nitrostat Sl) 0.4 mg UNSCH PRN SL CHEST PAIN; Start 07/19/16 at 12:15; Stop 07/29/16 at 19:01; Status DC Clonidine (Catapres) 0.1 mg UNSCH PRN PO for BP > 180/100 X 2 readings Last administered on 07/27/16 09:05; Start 07/19/16 at 12:15; Stop 07/29/16 at 19:01 ; Status DC Epoetin Joseph (Epogen Inj) 4,000 units UNSCH PRN IV WITH DIALYSIS; Start at 12:15; Stop 07/29/16 at 19:01; Status DC Gelatin 1 foam 1 foam UNSCH PRN TOP SEE LABEL COMMENTS; Start 07/19/16 at 12:15 ; Stop 07/29/16 at 19:01; Status DC Cefazolin Sodium/ Dextrose 50 ml @ 100 mls/hr ONCE ONCE IV Last administered on 07/19/16 14:02; Start 07/19/16 at 13:00; Stop 07/19/16 at 13:29; Status DC Vancomycin HCl/ Sodium Chloride (Vancomycin Inj/ NS 250 ml Inj) 250 ml @ 250 mls/hr ONCE ONCE IV Last administered on 07/19/16 13:01; Start 07/19/16 at 13: 00; Stop 07/19/16 at 13:59; Status DC Midazolam HCl (Versed Inj) 2 mg STK-MED ONCE .ROUTE ; Start 07/19/16 at 16:53; Stop 07/19/16 at 16:54; Status DC Fentanyl Citrate (fentaNYL INJ) 250 mcg STK-MED ONCE .ROUTE ; Start 07/19/16 at 16:53; Stop 07/19/16 at 16:54; Status DC Heparin Sodium (Porcine) (*HEPARIN INJ Periprocedural ONLY) 10,000 units STK- MED ONCE .ROUTE ; Start 07/19/16 at 17:06; Stop 07/19/16 at 17:07; Status DC Lidocaine/ Epinephrine (Xylocaine-Epi 1%-1:100,000 Inj) 20 ml STK-MED ONCE .ROUTE ; Start 07/19/16 at 17:06; Stop 07/19/16 at 17:07; Status DC Flumazenil (Romazicon Inj) 0.5 mg STK-MED ONCE .ROUTE ; Start 07/19/16 at 17:51; Stop 07/19/16 at 17:52; Status DC Heparin Sodium (Porcine) (Heparin Inj) 5,000 units Q12HR SQ Last administered on 08/13/16 08:41; Start 07/20/16 at 21:00 Dextrose (D50w (Vial) Inj) 25 ml UNSCH PRN IV PUSH HYPOGLYCEMIA-SEE COMMENTS; Start 07/20/16 at 09:45 Glucagon (Glucagon Inj) 1 mg UNSCH PRN OTHER HYPOGLYCEMIA-SEE COMMENTS; Start 07/20/16 at 09:45 Insulin Human Regular (NovoLIN R SUPPLEMENTAL SCALE) 1 Q6H SQ Last administered on 08/13/16 12:33; Start 07/20/16 at 11:00 Epinephrine HCl (EPINEPHrine (1:10,000) INJ) 1 mg STK-MED ONCE IV ; Start at 05:00; Stop 07/20/16 at 16:33; Status DC Sodium Bicarbonate (Sodium Bicarbonate 8.4% Inj) 50 meq STK-MED ONCE IV ; Start 07/19/16 at 05:00; Stop 07/20/16 at 16:33; Status DC Racepinephrine (Racepinephrine 2.25% Neb) 0.5 ml STK-MED ONCE .ROUTE ; Start 07/21/16 at 02:10; Stop 07/21/16 at 02:11; Status DC Dexamethasone Sodium Phosphate 4 mg 4 mg ONCE ONCE IV PUSH Last administered on 07/21/16 04:04; Start 07/21/16 at 03:45; Stop 07/21/16 at 03:46; Status DC Ceftriaxone Sodium/Sodium Chloride (Rocephin Inj/NS Inj) 100 ml @ 200 mls/hr Q24H IV Last administered on 07/23/16 09:00; Start 07/21/16 at 09:00; Stop at 16:16; Status DC Morphine Sulfate (Morphine Inj) 1 mg ONCE ONCE IV PUSH Last administered on 09:33; Start 07/21/16 at 09:15; Stop 07/21/16 at 09:16; Status DC Gabapentin (Neurontin) 300 mg DAILY PO Last administered on 07/30/16 09:44; Start 07/22/16 at 09:00; Stop 07/30/16 at 12:40; Status DC Labetalol HCl (Trandate Inj) 10 mg Q4H PRN IV PUSH SBP >165 Last administered on 08/05/16 11:15; Start 07/22/16 at 04:45 Hydralazine HCl (Apresoline Inj) 10 mg Q4H PRN IV PUSH SBP >165 Last administered on 08/04/16 11:04; Start 07/22/16 at 05:30; Stop 08/04/16 at 15:14 ; Status DC Hydralazine HCl (Apresoline Inj) 10 mg NOW IV Last administered on 07/22/16 06: 47; Start 07/22/16 at 06:45; Stop 07/22/16 at 08:30; Status DC Nifedipine (Procardia) 10 mg Q8HR PO Last administered on 07/23/16 04:40; Start 07/22/16 at 09:00; Stop 07/23/16 at 09:57; Status DC Nystatin (Mycostatin Powder) 1 applic Q12HR PRN TOPICAL rash; Start 07/22/16 at 16:00 Linezolid (Zyvox) 600 mg Q12H PO Last administered on 07/23/16 13:50; Start 07/22/16 at 15:00; Stop 07/23/16 at 20:46; Status DC Nifedipine (Procardia) 20 mg Q8HR PO Last administered on 08/13/16 05:36; Start 07/23/16 at 14:00 Albuterol/ Ipratropium (Duoneb Neb) 1 ampule Q4HR NEB NEB Last administered on 07/31/16 03:40; Start 07/23/16 at 18:00; Stop 07/31/16 at 07:05; Status DC Chlorhexidine Gluconate 15 ml 15 ml BID@08,20 MT Last administered on 08:00; Start 07/23/16 at 20:00 Propofol 100 ml @ 0 mls/hr TITRATE IV Last administered on 07/30/16 06:54; Start 07/23/16 at 19:30; Status Hold Fentanyl Citrate (fentaNYL DRIP) 250 ml @ 0 mls/hr TITRATE IV Last administered on 07/24/16 00:59; Start 07/23/16 at 19:30; Stop 07/30/16 at 08:11; Status DC Mupirocin (Bactroban Nasal 2% Oint) 1 applic Taper BID EACH NARE Last administered on 08/13/16 08:46; Start 07/23/16 at 21:00; Stop 07/19/17 at 20:59 IV Flush (NS Flush) DAILY IVF Last administered on 08/12/16 08:49; Start 07/23 at 20:00 IV Flush UNSCH PRN IVF SEE PROTOCOL; Start 07/23/16 at 20:00 Sodium Chloride 1,000 ml @ 84 mls/hr [id number] IV Last administered on 08:20; Start 07/23/16 at 20:45; Stop 07/26/16 at 11:24; Status DC Cefepime HCl 2000 mg/Sodium Chloride 100 ml @ 200 mls/hr DAILY IV Last administered on 07/26/16 08:29; Start 07/23/16 at 22:00; Stop 07/26/16 at 14:28 ; Status DC Clindamycin Phosphate 600 mg/ Sodium Chloride 104 ml @ 208 mls/hr Q8H IV Last administered on 07/24/16 06:08; Start 07/23/16 at 23:00; Stop 07/24/16 at 10:54; Status DC Linezolid (Zyvox 600 Mg Premix) 300 ml @ 300 mls/hr Q12HR IV Last administered on 08/02/16 08:12; Start 07/24/16 at 11:00; Stop 08/02/16 at 15:34 ; Status DC Nitroglycerin (Nitroglycerin 2% Oint) 2 inch Q6H PRN TOPICAL SBP> 160 Last administered on 08/11/16 17:09; Start 07/25/16 at 04:15 Epinephrine HCl (EPINEPHrine (1:10,000) INJ) 1 mg STK-MED ONCE .ROUTE ; Start at 16:22; Stop 07/25/16 at 16:23; Status DC Atropine Sulfate (Atropine Inj) 1 mg STK-MED ONCE .ROUTE ; Start 07/25/16 at 16: 22; Stop 07/25/16 at 16:23; Status DC Lidocaine HCl (Xylocaine 2% Inj) 100 mg STK-MED ONCE .ROUTE ; Start 07/25/16 at 16:23; Stop 07/25/16 at 16:24; Status DC Atropine Sulfate (Atropine Inj) 1 mg STK-MED ONCE IV ; Start 07/23/16 at 12:07; Stop 07/26/16 at 12:10; Status DC Sodium Bicarbonate (Sodium Bicarbonate 8.4% Inj) 50 meq STK-MED ONCE IV ; Start 07/23/16 at 12:08; Stop 07/26/16 at 12:10; Status DC Epinephrine HCl (EPINEPHrine (1:10,000) INJ) 1 mg STK-MED ONCE IV ; Start at 12:09; Stop 07/26/16 at 12:10; Status DC Sodium Chloride (Sodium Chloride 0.9% Inj) 20 ml STK-MED ONCE IV ; Start at 12:10; Stop 07/26/16 at 12:10; Status DC Bumetanide (Bumex Inj) 2 mg BID@09,18 IV PUSH Last administered on 07/29/16 16 :49; Start 07/27/16 at 09:00; Stop 07/29/16 at 19:02; Status DC Hydralazine HCl (Apresoline) 75 mg TID PO ; Start 07/27/16 at 09:00; Stop at 09:00; Status DC Docusate Sodium (Colace) 100 mg BID PO Last administered on 08/13/16 08:42; Start 07/27/16 at 09:00 Sennosides (Senokot) 8.6 mg Q12HR PO Last administered on 08/13/16 08:45; Start 07/27/16 at 09:00 Polyethylene Glycol (Miralax) 17 gm ONCE ONCE PO Last administered on 07:59; Start 07/27/16 at 07:15; Stop 07/27/16 at 07:17; Status DC Mineral Oil (Mineral Oil Liq) 15 ml ONCE ONCE PO Last administered on 07:58; Start 07/27/16 at 07:15; Stop 07/27/16 at 07:17; Status DC Potassium Chloride (KCl 40 Meq/30 ml Liq) 40 meq ONCE ONCE PO Last administered on 07/27/16 07:58; Start 07/27/16 at 07:15; Stop 07/27/16 at 07:16 ; Status DC Hydralazine HCl (Apresoline) 100 mg TID PO Last administered on 07/29/16 08:01 ; Start 07/27/16 at 09:00; Stop 07/29/16 at 11:02; Status DC Miscellaneous (Pill Splitter) 1 ea UNSCH PRN OTHER SEE LABEL COMMENTS; Start at 07:15; Status Cancel Clonidine 0.1 mg 0.1 mg Q8HR PO Last administered on 07/27/16 13:58; Start 05/02 at 14:00; Stop 07/27/16 at 18:12; Status DC Clevidipine (Cleviprex Inj) 50 ml @ 0 mls/hr TITRATE IV Last administered on 01:43; Start 07/27/16 at 11:00; Stop 07/30/16 at 17:22; Status DC Clonidine (Catapres) 0.2 mg Q8HR PO Last administered on 08/13/16 13:46; Start 07/27/16 at 22:00 Alteplase, Recombinant (Cathflo Activase Inj) 2 mg ONCE ONCE IV Last administered on 07/29/16 07:03; Start 07/29/16 at 06:45; Stop 07/29/16 at 06:46 ; Status DC Alteplase, Recombinant (Cathflo Activase Inj) 2 mg ONCE ONCE IV Last administered on 07/29/16 08:05; Start 07/29/16 at 06:45; Stop 07/29/16 at 06:46 ; Status DC Alteplase, Recombinant (Cathflo Activase Inj) 2 mg ONCE ONCE IV Last administered on 07/29/16 08:05; Start 07/29/16 at 06:45; Stop 07/29/16 at 06:46 ; Status DC Hydralazine HCl (Apresoline) 100 mg Q8HR PO Last administered on 08/13/16 13: 46; Start 07/29/16 at 14:00 Ferrous Sulfate (Ferrous Sulfate Liq) 300 mg BID PO Last administered on 08:41; Start 07/29/16 at 12:00 Aspirin (Aspirin Chew) 81 mg DAILY PO Last administered on 08/13/16 08:42; Start 07/29/16 at 12:00 Bumetanide 2 mg 2 mg Q6HR IV PUSH Last administered on 08/02/16 11:17; Start 07/30/16 at 00:00; Stop 08/02/16 at 13:03; Status DC Potassium Chloride (KCl 40 Meq Premix Inj) 100 ml @ 25 mls/hr BOLUS ONCE IV Last administered on 07/29/16 21:05; Start 07/29/16 at 19:15; Stop 07/29/16 at 23:14; Status DC Potassium Chloride 20 meq 20 meq Q12HR TUBE Last administered on 07/30/16 09: 45; Start 07/29/16 at 21:00; Stop 07/30/16 at 11:46; Status DC Dexmedetomidine HCl (Precedex Inj) 50 ml @ 0 mls/hr TITRATE IV Last administered on 07/30/16 15:35; Start 07/30/16 at 08:00; Stop 07/30/16 at 22:25 ; Status DC Potassium Chloride 40 meq 40 meq Q12HR TUBE Last administered on 08/03/16 23: 47; Start 07/30/16 at 21:00; Stop 08/05/16 at 16:51; Status DC Potassium Chloride/Sodium Chloride (KCl Inj/NS Inj) 115 ml @ 38.333 mls/ hr ONCE ONCE IV-CENTRAL Last administered on 07/30/16 14:09; Start 07/30/16 at 12:00; Stop 07/30/16 at 14:59; Status DC Gabapentin (Neurontin) 300 mg BID PO Last administered on 08/13/16 08:42; Start 07/30/16 at 21:00 Metoprolol Tartrate (Lopressor Inj) 2.5 mg NOW ONCE IV PUSH Last administered on 07/30/16 18:00; Start 07/30/16 at 17:15; Stop 07/30/16 at 17:16; Status DC Metoprolol Tartrate 5 mg 5 mg STK-MED ONCE .ROUTE Last administered on 17:11; Start 07/30/16 at 17:10; Stop 07/30/16 at 17:11; Status DC Nicardipine HCl 25 mg/Sodium Chloride 260 ml @ 0 mls/hr TITRATE IV Last administered on 08/07/16 13:00; Start 07/30/16 at 17:30 Dexmedetomidine HCl 1000 mcg/ Sodium Chloride 250 ml @ 0 mls/hr TITRATE IV Last administered on 07/31/16 09:12; Start 07/30/16 at 22:25; Stop 08/08/16 at 12:35; Status DC Potassium Chloride (KCl 20 Meq Premix Inj) 100 ml @ 50 mls/hr Q2H IV Last administered on 07/31/16 08:15; Start 07/31/16 at 07:00; Stop 07/31/16 at 10:59 ; Status DC Furosemide (Lasix Inj) 40 mg ONCE ONCE IV PUSH Last administered on 07/31/16 08:12; Start 07/31/16 at 07:15; Stop 07/31/16 at 07:16; Status DC Nicardipine HCl (Cardene Inj) 25 mg STK-MED ONCE .ROUTE ; Start 07/31/16 at 09: 06; Stop 07/31/16 at 09:07; Status DC Promethazine HCl 25 mg 25 mg Q6H PRN IM NAUSEA Last administered on 08/02/16 13:17; Start 07/31/16 at 17:45 Potassium Chloride 30 meq/ Sodium Chloride 115 ml @ 38.333 mls/ hr ONCE ONCE IV-CENTRAL ; Start 08/01/16 at 15:00; Stop 08/01/16 at 17:59; Status Cancel Potassium Chloride (KCl 10 Meq Premix Inj) 100 ml @ 100 mls/hr Q1H IV Last administered on 08/01/16 15:08; Start 08/01/16 at 14:00; Stop 08/01/16 at 16:59 ; Status DC Bumetanide (Bumex Inj) 2 mg Q8HR ALT NEB IV PUSH Last administered on 11:49; Start 08/02/16 at 20:00; Stop 08/03/16 at 13:29; Status DC Prednisone 10 mg 10 mg BID PO Last administered on 08/09/16 09:08; Start 08/02 at 21:00; Stop 08/09/16 at 12:49; Status DC Bumetanide (Bumex Inj) 100 ml @ 8 mls/hr CONTINUOUS IV Last administered on 03:23; Start 08/03/16 at 15:30; Stop 08/05/16 at 12:56; Status DC Hydralazine HCl 20 mg 20 mg Q4H PRN IV PUSH SBP >165 Last administered on 03:26; Start 08/04/16 at 18:00 Sodium Chloride (NS 1000 ml Inj) 1,000 ml @ 0 mls/hr Q0M PRN IV For Prime & Rinse Back Last administered on 08/12/16 08:41; Start 08/04/16 at 15:14 Heparin Sodium (Porcine) 8000 units 8,000 units UNSCH PRN IVF WITH DIALYSIS; Start 08/04/16 at 15:15 Sodium Chloride 1,000 ml @ 200 mls/hr Q5H PRN IV WITH DIALYSIS; Start 08/04/16 at 15:14 Sodium Chloride (NS 1000 ml Inj) 1,000 ml @ 0 mls/hr Q0M PRN IV WITH DIALYSIS; Start 08/04/16 at 15:14 Mannitol (Mannitol Inj) 12.5 gm UNSCH PRN IV WITH DIALYSIS Last administered on 08/08/16 08:07; Start 08/04/16 at 15:15 Albumin Human (Albumin 25% Inj) 25 gm UNSCH PRN IV WITH DIALYSIS; Start at 15:15 IV Flush (NS Flush) 5 ml UNSCH PRN IVF WITH DIALYSIS; Start 08/04/16 at 15:15 Heparin Sodium (Porcine) (Heparin Inj) UNSCH PRN .XX WITH DIALYSIS Last administered on 08/12/16 08:41; Start 08/04/16 at 15:15 Gentamicin Sulfate (Gentamicin (Dialysis) Inj) 20 mg UNSCH PRN IV WITH DIALYSIS Last administered on 08/12/16 08:41; Start 08/04/16 at 15:15 Ondansetron HCl (Zofran Inj) 4 mg UNSCH PRN IV WITH DIALYSIS Last administered on 08/06/16 18:47; Start 08/04/16 at 15:15 Acetaminophen (Tylenol) 650 mg UNSCH PRN PO for headach, pain, temp > 101F; Start 08/04/16 at 15:15 Diphenhydramine HCl (Benadryl) 25 mg UNSCH PRN PO for hives/itching/anaphylaxis ; Start 08/04/16 at 15:15 Nitroglycerin (Nitrostat Sl) 0.4 mg UNSCH PRN SL CHEST PAIN; Start 08/04/16 at 15:15 Clonidine (Catapres) 0.1 mg UNSCH PRN PO for BP > 180/100 X 2 readings Last administered on 08/11/16 18:01; Start 08/04/16 at 15:15 Epoetin Joseph (Epogen Inj) 10,000 units UNSCH PRN IV WITH DIALYSIS Last administered on 08/12/16 08:41; Start 08/04/16 at 15:15 Gelatin (Gelfoam 12 Mm/7 Mm Top) 1 foam UNSCH PRN TOP SEE LABEL COMMENTS; Start 08/04/16 at 15:15 Epinephrine HCl (EPINEPHrine (1:10,000) INJ) 1 mg STK-MED ONCE .ROUTE ; Start at 11:12; Stop 08/05/16 at 11:13; Status DC Atropine Sulfate (Atropine Inj) 1 mg STK-MED ONCE .ROUTE ; Start 08/05/16 at 11: 12; Stop 08/05/16 at 11:13; Status DC Lidocaine HCl (Xylocaine 2% Inj) 100 mg STK-MED ONCE .ROUTE ; Start 08/05/16 at 11:12; Stop 08/05/16 at 11:13; Status DC Heparin Sodium (Porcine) (*HEPARIN INJ Periprocedural ONLY) 10,000 units STK- MED ONCE .ROUTE Last administered on 08/05/16 12:05; Start 08/05/16 at 12:03; Stop 08/05/16 at 12:04; Status DC IV Flush (NS Flush) UNSCH PRN IVF SEE PROTOCOL; Start 08/05/16 at 12:15 Heparin Sodium (Porcine) (Heparin Inj) UNSCH PRN IVF SEE PROTOCOL; Start 08/05 at 12:15 Prednisone (Deltasone) 10 mg DAILY PO Last administered on 08/13/16 08:46; Start 08/10/16 at 09:00 Albuterol/ Ipratropium (Duoneb Neb) 1 ampule QID NEB NEB Last administered on 08/13/16 12:46; Start 08/09/16 at 16:00 Date of Insertion: Jul 23, 2016 Line: Central Venous Catheter Side: Left Location: Internal, Jugular A/P Problem List: (1) Acute exacerbation of CHF (congestive heart failure) ICD Code: I50.9 Status: Acute (2) Stage 4 chronic kidney disease ICD Code: N18.4 Status: Acute (3) Elevated troponin ICD Code: R79.89 Status: Acute (4) HTN (hypertension) ICD Code: I10 Status: Chronic (5) Diabetes ICD Code: E11.9 Status: Chronic Assessment and Plan 50 Y/O female with a medical history significant for CHF, depression, HTN, dm, and ckd with prolonged hospital stay secondary to recurrent intubation, status post cardiac arrest. Patient currently still in the ICU and slowly improving. Acute respiratory failure: Likely a combination of renal failure, diastolic heart failure, pulmonary edema, possible COPD, HCAP with MRSA in the sputum. Patient has been intubated about 3 times during this hospitalization. Currently on BiPAP at night and as needed. - Appreciate pulmonology following. On prednisone. bipap per Pulmonology - Infectious disease following. s/p Rocephin and Zyvox. Antibiotics discontinued. Monitor patient off antibiotic. - Patient currently on nasal cannula with bipap as needed. BRENDA RN. Acute on chronic kidney disease: Now on dialysis.. -Appreciate nephrology following. Most likely advanced diabetic nephropathy. Status post Vas-Cath placement. Dialysis per nephrology. continue to f/u with BMP. - Vascular surgery planning for aVF Encephalopathy: -RESOLVED. Secondary to multiple comorbid conditions above. Anoxic injury also possibility. Continue to follow. CHF: Echocardiogram 05/21 revealed EF 50%. Mildly dilated ventricle. Diffuse hypokinesis. Echocardiogram 07/23 reveals EF 45-50%. No regional motion abnormality. POOL 59 mmHg. Mild TR. - Continue Coreg, lisinopril. Previously followed by cardiology. Troponin likely due to fluid overloaded state per Cards. previous stress test showing mild small lateral wall defect. Severe deconditioning: Secondary to above comorbidities. Need to mobilize patient. PT following blood respiratory status limit therapy. Hypertension: Resistant, difficult to control. On Coreg 25mg BID, hydralazine 100mg TID, lisinopril 20 daily, clonidine 0.2 mg every 8 hours Continue atorvastatin 80 mg daily's for dyslipidemia. Cont Nifedipine. Continue hydralazine IV as needed. Diabetes mellitus: - Continue sliding scale insulin with Accu-Chek Anemia: Currently on iron sulfate 325mg PO twice a day/home medication. Monitor CBC. Transfuse for hemoglobin less than 7 GI prophylaxis: Stool softener PRN constipation. DVT PPx: SCDs/Heparin Dispo: once stable cleared by admissions manager can be d/c to SNF. d/w nurse and can downgrade patient. Problem Qualifiers (1) Acute exacerbation of CHF (congestive heart failure): Qualified Code: I50.9 - Acute on chronic congestive heart failure, unspecified congestive heart failure type (2) HTN (hypertension): Qualified Code: I10 - Essential hypertension (3) Diabetes: Valorie Parekh MD Aug 13, 2016 13:57
[2016-08-13] MEDS: ATORVASTATIN 80 MG TAB PO SCH (20:41)
[2016-08-14] VITALS (7 sets, daily range): BP systolic 164–192; BP diastolic 77–94; PULSE 64–68; RESP 18–20; TEMP 98–99.4; O2SAT 92–93
[2016-08-14] MEDS: CHLORHEXIDINE GLUCONATE 2 % 1 PACK (2 CLOTHS) TOP SCH (03:37)
[2016-08-14] MEDS: NIFEdipine 20 MG CAP PO SCH ×3 (05:54→22:50)
[2016-08-14] MEDS: hydrALAZINE HCL 50 MG TAB PO SCH ×3 (05:55→22:51)
[2016-08-14] MEDS: INSULIN NovoLIN REGULAR SUPPLEMENTAL SCALE SQ SCH ×4 (05:55→22:50)
[2016-08-14] MEDS: cloNIDine HCL 0.1 MG TAB PO SCH ×3 (05:56→22:49)
--- NOTE | 2016-08-14 07:39 | RADRPT ---
EXAM DATE/TIME: 08/14/2016 06:41 [facility] COMPARISON: CHEST SINGLE AP, August 04, 2016, 4:20. INDICATIONS : Infiltrate. MEDICAL HISTORY : Congestive heart failure. Hypercholesterolemia. Hypertension. Abdominal pain. Renal failure. Diabetes . Gait problems. Anxiety. MRSA. SURGICAL HISTORY : Coronary artery stent. section. Blood transfusions. ENCOUNTER: Subsequent ACUITY: 1 month PAIN SCORE: 0/10 LOCATION: Bilateral chest FINDINGS: A single view of the chest demonstrates cardiomegaly with right basilar density. Right jugular centra l line with tip in the SVC. No pneumothorax.. Osseous structures are intact. CONCLUSION: 1. Right basilar density with probable small pleural effusion. 2. Cardiomegaly and right sided jugular line. Dylon Haley MD on August 14, 2016 at 7:36 Board Certified Radiologist. This report was verified electronically.
[2016-08-14] MEDS: CHLORHEXIDINE 0.12% (ORAL KIT) 15 ML CUP MT SCH ×2 (08:00→20:00)
[2016-08-14] MEDS: SODIUM CHLORIDE 0.9% FLUSH 5 ML FLUSH IVF SCH ×3 (09:00→22:51)
[2016-08-14] MEDS: EPOETIN ALFA 10,000 UNITS/ML VIAL IV PRN (09:36)
[2016-08-14] MEDS: HEPARIN SODIUM - IV 10,000 UNITS/10 ML VIAL PRN (09:36)
[2016-08-14] MEDS: SODIUM CHLOR 0.9% 1000 ML INJ 1,000 ML IV PRN (09:37)
[2016-08-14] MEDS: GENTAMICIN SULFATE (DIALYSIS USE ONLY) 20 MG/2 ML VIAL IV PRN (09:37)
[2016-08-14] MEDS: DOCUSATE SODIUM 100 MG CAP PO SCH ×2 (12:43→22:51)
[2016-08-14] MEDS: MUPIROCIN 2% OINT 1 APPLIC/GM SYR EACH NARE SCH ×2 (12:45→21:00)
[2016-08-14] MEDS: HEPARIN SODIUM - SQ 10,000 UNITS/ML VIAL SQ SCH ×2 (12:45→22:51)
[2016-08-14] MEDS: PANTOPRAZOLE SODIUM 40 MG VIAL IV SCH (12:45)
[2016-08-14] MEDS: ASPIRIN 81 MG CHEW TAB PO SCH (12:46)
[2016-08-14] MEDS: SENNOSIDES 8.6 MG TAB PO SCH ×2 (12:46→22:51)
[2016-08-14] MEDS: LISINOPRIL 20 MG TAB PO SCH (12:46)
[2016-08-14] MEDS: CARVEDILOL 12.5 MG TAB PO SCH ×2 (12:46→22:50)
[2016-08-14] MEDS: GABAPENTIN 300 MG CAP PO SCH ×2 (12:46→22:49)
[2016-08-14] MEDS: predniSONE 10 MG TAB PO SCH (12:47)
[2016-08-14] MEDS: FERROUS SULFATE 300 MG /5ML UDC PO SCH ×2 (13:35→22:49)
--- NOTE | 2016-08-14 15:46 | HHI.NPPN ---
Subjective History of Present Illness 50 year old with CKD 4/5 Diabetes Nephrotic range proteinuria Additional Remarks Patient seen in AM during HD, alert, feeling better. Review of Systems General Constitutional: Fatigue Cardiovascular Cardiac: Edema Objective Data Data 08/13/16 08/14/16 19:00 07:00 Intake Total 600 ml 360 ml Output Total 225 ml 500 ml Balance 375 ml -140 ml Intake Oral 600 ml 360 ml Output Urine Total 225 ml 500 ml # Bowel Movements 0 0 Vital Signs Date Time Temp Pulse Resp B/P Pulse Ox O2 Delivery O2 Flow Rate FiO2 08/14/16 08:12 92 Nasal Cannula 2.00 08/14/16 08:00 98.4 64 20 171/82 92 08/14/16 04:22 98.0 64 18 165/81 92 08/13/16 23:00 Nasal Cannula 2.00 08/13/16 22:00 60 08/13/16 21:57 98.6 59 18 153/76 93 08/13/16 20:00 98.1 62 17 135/80 95 08/13/16 20:00 62 08/13/16 19:00 Nasal Cannula 2.00 08/13/16 18:00 62 08/13/16 16:00 97.9 58 17 142/83 94 08/13/16 16:00 58 -: 08/13/16 0330 08/13/16 0330 Physical Exam General Appearance: No Acute Distress, Comfortable, Anxious, Obese Throat Throat Exam: Oral Mucosa [place] & Moist Neck Neck Exam: Neck Supple Pulmonary Resp Exam: Rhonchi, Decreased Bases, Diminished Breath Sounds Cardiology CV Exam: Regular, Normal Sinus Rhythm Gastrointestinal/Abdomen GI Exam: Soft, Non-Tender, Distended Extremeties Extremities Exam: Pitting Edema, Dependent Edema Neurologic Neuro Exam: Alert, Awake, Oriented Assessment/Plan Problem List: (1) ESRD (end stage renal disease) on dialysis Plan: kidney failure due to advance diabetic nephropathy 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 BP is stable, HD and remove fluid. On Epogen. (2) Stage 4 chronic kidney disease Plan: Patient with advanced kidney disease and had the workup in May. 10 g of proteinuria Most likely has advance Diabetic Nephropathy. continue HD tomorrow (3) Hypoventilation associated with obesity syndrome Plan: critical care following (4) Nephrotic syndrome Plan: Protein to creatinine ratio above 10 10.52 (5) Acute exacerbation of CHF (congestive heart failure) Plan: This is likely due to chronic kidney disease and diastolic dysfunction (6) Diabetes Plan: Advance manifestations diabetic nephropathy, retinopathy and neuropathy (7) HTN (hypertension) Plan: Continue to monitor on PRN hydralazine Problem Qualifiers (1) Acute exacerbation of CHF (congestive heart failure): Qualified Code: I50.9 - Acute on chronic congestive heart failure, unspecified congestive heart failure type (2) Diabetes: (3) HTN (hypertension): Qualified Code: I10 - Essential hypertension Mia Medley MD Aug 14, 2016 15:45
--- NOTE | 2016-08-14 16:21 | HHI.PR ---
Subjective Remarks f/u for renal failure patient has no complaints. She stated she is doing well. Tolerating PO intake. Objective Vitals Vital Signs Date Time Temp Pulse Resp B/P Pulse Ox O2 Delivery O2 Flow Rate FiO2 08/14/16 15:57 99.4 65 20 164/77 93 08/14/16 08:12 92 Nasal Cannula 2.00 08/14/16 08:00 98.4 64 20 171/82 92 08/14/16 04:22 98.0 64 18 165/81 92 08/13/16 23:00 Nasal Cannula 2.00 08/13/16 22:00 60 08/13/16 21:57 98.6 59 18 153/76 93 08/13/16 20:00 98.1 62 17 135/80 95 08/13/16 20:00 62 08/13/16 19:00 Nasal Cannula 2.00 08/13/16 18:00 62 I/O 08/13/16 08/13/16 08/13/16 08/14/16 08/14/16 08/14/16 07:00 15:00 23:00 07:00 15:00 23:00 Intake Total 240 ml 600 ml 240 ml 120 ml 0 ml Output Total 450 ml 225 ml 250 ml 250 ml 4000 ml 400 ml Balance -210 ml 375 ml -10 ml -130 ml -4000 ml -400 ml Intake Oral 240 ml 600 ml 240 ml 120 ml 0 ml Output Urine Total 450 ml 225 ml 250 ml 250 ml 400 ml Hemodialysis 4000 ml # Bowel Movements 0 0 0 0 0 Result Diagram: 08/13/1632908/13/16 033 Objective Remarks Gen NAD resp: cta b/l abd soft NDNT CV RRR. no r/m/g Medications and IVs Current Medications IV Flush (NS Flush) 2 ml UNSCH PRN IVF FLUSH AFTER USING IV ACCESS; Start 07/15 at 19:00; Stop 07/15/16 at 20:43; Status DC Bumetanide (Bumex Inj) 1 mg ONCE ONCE IV PUSH Last administered on 07/15/16t 20:35; Start 07/15/16 at 20:30; Stop 07/15/16 at 20:31; Status DC IV Flush (NS Flush) 2 ml UNSCH PRN FLUSH FLUSH AFTER USING IV ACCESS; Start at 20:45; Stop 07/18/16 at 13:51; Status DC IV Flush (NS Flush) 2 ml BID FLUSH Last administered on 07/18/16 08:03; Start 07/15/16 at 21:00; Stop 07/18/16 at 13:51; Status DC Naloxone HCl (Narcan Inj) 0.4 mg UNSCH PRN IV SEE LABEL COMMENTS; Start at 20:45 Bumetanide (Bumex Inj) 1 mg BID@09,18 IV PUSH Last administered on 07/26/16 16 :53; Start 07/16/16 at 09:00; Stop 07/27/16 at 07:09; Status DC Bumetanide 1 mg 1 mg ONCE ONCE IV PUSH Last administered on 07/16/16 03:11; Start 07/16/16 at 03:00; Stop 07/16/16 at 03:01; Status DC Heparin Sodium/ Dextrose (Heparin-D5W Inj) 250 ml @ 0 mls/hr TITRATE IV Last administered on 07/18/16 01:42; Start 07/16/16 at 03:00; Stop 07/18/16 at 02:59; Status DC Heparin Sodium (Porcine) (Heparin Inj) 5,000 units ONCE ONCE IV Last administered on 07/16/16 03:11; Start 07/16/16 at 03:00; Stop 07/16/16 at 03:01 ; Status DC Amitriptyline HCl (Elavil) 50 mg HS PO Last administered on 07/21/16 19:33; Start 07/16/16 at 21:00; Status Hold Amlodipine Besylate (Norvasc) 10 mg DAILY PO Last administered on 07/18/16 11: 04; Start 07/16/16 at 09:00; Stop 07/22/16 at 08:48; Status DC Aspirin (Ecotrin Ec) 81 mg DAILY PO Last administered on 07/28/16 08:11; Start 07/16/16 at 09:00; Stop 07/29/16 at 11:06; Status DC Atorvastatin Calcium (Lipitor) 80 mg HS PO Last administered on 08/13/16 20:41 ; Start 07/16/16 at 21:00 Carvedilol (Coreg) 25 mg BID PO Last administered on 08/14/16 12:46; Start at 09:00 Ferrous Sulfate (Ferrous Sulfate) 325 mg BID PO Last administered on 07/30/16 09:44; Start 07/16/16 at 09:00; Stop 07/30/16 at 17:11; Status DC Gabapentin (Neurontin) 300 mg TID PO Last administered on 07/21/16 08:25; Start 07/16/16 at 09:00; Stop 07/21/16 at 10:49; Status DC Hydralazine HCl (Apresoline) 50 mg TID PO Last administered on 07/26/16 16:53 ; Start 07/16/16 at 09:00; Stop 07/27/16 at 07:09; Status DC Insulin Aspart (NovoLOG SUPPLEMENTAL SCALE) 1 ACHS SLIDING SCALE SQ Last administered on 07/18/16 11:00; Start 07/16/16 at 07:00; Stop 07/20/16 at 09:34; Status DC Dextrose (D50w (Vial) Inj) 25 ml UNSCH PRN IV PUSH HYPOGLYCEMIA - SEE COMMENTS ; Start 07/16/16 at 06:30; Stop 07/20/16 at 10:00; Status DC Glucagon (Glucagon Inj) 1 mg UNSCH PRN OTHER HYPOGLYCEMIA-SEE COMMENTS; Start 07/16/16 at 06:30; Stop 07/20/16 at 10:00; Status DC Albumin Human (Albumin 25% Inj) 25 gm BID@ IV Last administered on 09:42; Start 07/16/16 at 17:00; Stop 08/08/16 at 10:28; Status DC Lisinopril (Prinivil) 20 mg ONCE ONCE PO Last administered on 07/16/16 12:32 ; Start 07/16/16 at 11:00; Stop 07/16/16 at 11:11; Status DC Lisinopril (Prinivil) 20 mg DAILY PO Last administered on 08/14/16 12:46; Start 07/17/16 at 09:00 Acetaminophen/ Hydrocodone Bitart ([place] 5-325 Mg) 1 tab Q6H PRN PO PAIN >5 Last administered on 08/08/16 07:29; Start 07/16/16 at 23:30 Albuterol/ Ipratropium (Duoneb Neb) 1 ampule Q4HR NEB PRN NEB SOB/WHEEZING Last administered on 07/17/16 23:29; Start 07/17/16 at 09:45; Stop 07/18/16 at 13: 52; Status DC Ondansetron HCl (Zofran Inj) 4 mg Q6HR PRN IV PUSH nausea Last administered on 07/31/16 14:17; Start 07/18/16 at 06:00 Etomidate 20 mg 20 mg STK-MED ONCE .ROUTE ; Start 07/18/16 at 13:07; Stop at 13:08; Status DC Propofol 100 ml @ 0 mls/hr TITRATE IV Last administered on 07/20/16 12:40; Start 07/18/16 at 13:30; Stop 07/20/16 at 16:43; Status DC Propofol (Diprivan 1000 Mg/100ml Inj) 100 ml @ As Directed STK-MED ONCE .ROUTE ; Start 07/18/16 at 13:24; Stop 07/18/16 at 13:25; Status DC IV Flush (NS Flush) 2 ml UNSCH PRN IVF FLUSH AFTER USING IV ACCESS; Start at 13:45 IV Flush (NS Flush) 2 ml BID IVF Last administered on 08/14/16 12:47; Start 07/18/16 at 21:00 Albuterol/ Ipratropium (Duoneb Neb) 1 ampule Q6HR NEB NEB Last administered on 07/23/16 15:55; Start 07/18/16 at 16:00; Stop 07/23/16 at 16:06; Status DC Albuterol Sulfate (Albuterol Neb) 2.5 mg Q4HR NEB PRN INH SHORTNESS OF BREATH Last administered on 08/09/16 10:41; Start 07/18/16 at 13:45 Chlorhexidine Gluconate (Peridex 0.12% Liq) 15 ml BID@08,20 MT Last administered on 08/01/16 08:38; Start 07/18/16 at 20:00; Stop 08/01/16 at 13:08 ; Status DC Pantoprazole Sodium (Protonix Inj) 40 mg DAILY IV Last administered on 12:45; Start 07/19/16 at 09:00 Miscellaneous Information 1 [id number] Last administered on 07/18/16t 13:45; Start 07/18/16 at 13:45 Chlorhexidine Gluconate (Chlorhexidine 2% Cloth) Taper DAILY@04 TOP Last administered on 08/13/16t 04:00; Start 07/19/16 at 04:00; Stop 07/15/17 at 03:59 Chlorhexidine Gluconate 3 pack 3 pack UNSCH PRN TOP HYGIENIC CARE; Start at 13:45 Sodium Chloride (NS 1000 ml Inj) 1,000 ml @ 0 mls/hr Q0M PRN IV For Prime & Rinse Back; Start 07/19/16 at 12:15; Stop 07/29/16 at 19:00; Status DC Heparin Sodium (Porcine) 8000 units 8,000 units UNSCH PRN IVF WITH DIALYSIS; Start 07/19/16 at 12:15; Stop 07/29/16 at 19:01; Status DC Sodium Chloride 1,000 ml @ 200 mls/hr Q5H PRN IV WITH DIALYSIS; Start 07/19/16 at 12:15; Stop 07/20/16 at 16:43; Status DC Sodium Chloride (NS 1000 ml Inj) 1,000 ml @ 0 mls/hr Q0M PRN IV WITH DIALYSIS; Start 07/19/16 at 12:15; Stop 07/29/16 at 19:01; Status DC Mannitol (Mannitol Inj) 12.5 gm UNSCH PRN IV WITH DIALYSIS; Start 07/19/16 at 12 :15; Stop 07/29/16 at 19:01; Status DC Albumin Human (Albumin 25% Inj) 25 gm UNSCH PRN IV WITH DIALYSIS; Start at 12:15; Stop 07/29/16 at 19:01; Status DC IV Flush (NS Flush) 5 ml UNSCH PRN IVF WITH DIALYSIS; Start 07/19/16 at 12:15; Stop 07/29/16 at 19:00; Status DC Heparin Sodium (Porcine) (Heparin Inj) UNSCH PRN .XX WITH DIALYSIS; Start 07/19 at 12:15; Stop 07/29/16 at 19:01; Status DC Gentamicin Sulfate (Gentamicin (Dialysis) Inj) 20 mg UNSCH PRN IV WITH DIALYSIS ; Start 07/19/16 at 12:15; Stop 07/29/16 at 19:00; Status DC Ondansetron HCl (Zofran Inj) 4 mg UNSCH PRN IV WITH DIALYSIS; Start 07/19/16 at 12:15; Stop 07/29/16 at 19:01; Status DC Acetaminophen (Tylenol) 650 mg UNSCH PRN PO for headach, pain, temp > 101F Last administered on 07/20/16 20:41; Start 07/19/16 at 12:15; Stop 07/29/16 at 19 :01; Status DC Diphenhydramine HCl (Benadryl) 25 mg UNSCH PRN PO for hives/itching/anaphylaxis ; Start 07/19/16 at 12:15; Stop 07/29/16 at 19:01; Status DC Nitroglycerin (Nitrostat Sl) 0.4 mg UNSCH PRN SL CHEST PAIN; Start 07/19/16 at 12:15; Stop 07/29/16 at 19:01; Status DC Clonidine (Catapres) 0.1 mg UNSCH PRN PO for BP > 180/100 X 2 readings Last administered on 07/27/16 09:05; Start 07/19/16 at 12:15; Stop 07/29/16 at 19:01 ; Status DC Epoetin Joseph (Epogen Inj) 4,000 units UNSCH PRN IV WITH DIALYSIS; Start at 12:15; Stop 07/29/16 at 19:01; Status DC Gelatin 1 foam 1 foam UNSCH PRN TOP SEE LABEL COMMENTS; Start 07/19/16 at 12:15 ; Stop 07/29/16 at 19:01; Status DC Cefazolin Sodium/ Dextrose 50 ml @ 100 mls/hr ONCE ONCE IV Last administered on 07/19/16 14:02; Start 07/19/16 at 13:00; Stop 07/19/16 at 13:29; Status DC Vancomycin HCl/ Sodium Chloride (Vancomycin Inj/ NS 250 ml Inj) 250 ml @ 250 mls/hr ONCE ONCE IV Last administered on 07/19/16 13:01; Start 07/19/16 at 13: 00; Stop 07/19/16 at 13:59; Status DC Midazolam HCl (Versed Inj) 2 mg STK-MED ONCE .ROUTE ; Start 07/19/16 at 16:53; Stop 07/19/16 at 16:54; Status DC Fentanyl Citrate (fentaNYL INJ) 250 mcg STK-MED ONCE .ROUTE ; Start 07/19/16 at 16:53; Stop 07/19/16 at 16:54; Status DC Heparin Sodium (Porcine) (*HEPARIN INJ Periprocedural ONLY) 10,000 units STK- MED ONCE .ROUTE ; Start 07/19/16 at 17:06; Stop 07/19/16 at 17:07; Status DC Lidocaine/ Epinephrine (Xylocaine-Epi 1%-1:100,000 Inj) 20 ml STK-MED ONCE .ROUTE ; Start 07/19/16 at 17:06; Stop 07/19/16 at 17:07; Status DC Flumazenil (Romazicon Inj) 0.5 mg STK-MED ONCE .ROUTE ; Start 07/19/16 at 17:51; Stop 07/19/16 at 17:52; Status DC Heparin Sodium (Porcine) (Heparin Inj) 5,000 units Q12HR SQ Last administered on 08/14/16 12:45; Start 07/20/16 at 21:00 Dextrose (D50w (Vial) Inj) 25 ml UNSCH PRN IV PUSH HYPOGLYCEMIA-SEE COMMENTS; Start 07/20/16 at 09:45 Glucagon (Glucagon Inj) 1 mg UNSCH PRN OTHER HYPOGLYCEMIA-SEE COMMENTS; Start 07/20/16 at 09:45 Insulin Human Regular (NovoLIN R SUPPLEMENTAL SCALE) 1 Q6H SQ Last administered on 08/14/16 13:34; Start 07/20/16 at 11:00 Epinephrine HCl (EPINEPHrine (1:10,000) INJ) 1 mg STK-MED ONCE IV ; Start at 05:00; Stop 07/20/16 at 16:33; Status DC Sodium Bicarbonate (Sodium Bicarbonate 8.4% Inj) 50 meq STK-MED ONCE IV ; Start 07/19/16 at 05:00; Stop 07/20/16 at 16:33; Status DC Racepinephrine (Racepinephrine 2.25% Neb) 0.5 ml STK-MED ONCE .ROUTE ; Start 07/21/16 at 02:10; Stop 07/21/16 at 02:11; Status DC Dexamethasone Sodium Phosphate 4 mg 4 mg ONCE ONCE IV PUSH Last administered on 07/21/16 04:04; Start 07/21/16 at 03:45; Stop 07/21/16 at 03:46; Status DC Ceftriaxone Sodium/Sodium Chloride (Rocephin Inj/NS Inj) 100 ml @ 200 mls/hr Q24H IV Last administered on 07/23/16 09:00; Start 07/21/16 at 09:00; Stop at 16:16; Status DC Morphine Sulfate (Morphine Inj) 1 mg ONCE ONCE IV PUSH Last administered on 09:33; Start 07/21/16 at 09:15; Stop 07/21/16 at 09:16; Status DC Gabapentin (Neurontin) 300 mg DAILY PO Last administered on 07/30/16 09:44; Start 07/22/16 at 09:00; Stop 07/30/16 at 12:40; Status DC Labetalol HCl (Trandate Inj) 10 mg Q4H PRN IV PUSH SBP >165 Last administered on 08/05/16 11:15; Start 07/22/16 at 04:45 Hydralazine HCl (Apresoline Inj) 10 mg Q4H PRN IV PUSH SBP >165 Last administered on 08/04/16 11:04; Start 07/22/16 at 05:30; Stop 08/04/16 at 15:14 ; Status DC Hydralazine HCl (Apresoline Inj) 10 mg NOW IV Last administered on 07/22/16 06: 47; Start 07/22/16 at 06:45; Stop 07/22/16 at 08:30; Status DC Nifedipine (Procardia) 10 mg Q8HR PO Last administered on 07/23/16 04:40; Start 07/22/16 at 09:00; Stop 07/23/16 at 09:57; Status DC Nystatin (Mycostatin Powder) 1 applic Q12HR PRN TOPICAL rash; Start 07/22/16 at 16:00 Linezolid (Zyvox) 600 mg Q12H PO Last administered on 07/23/16 13:50; Start 07/22/16 at 15:00; Stop 07/23/16 at 20:46; Status DC Nifedipine (Procardia) 20 mg Q8HR PO Last administered on 08/14/16 13:35; Start 07/23/16 at 14:00 Albuterol/ Ipratropium (Duoneb Neb) 1 ampule Q4HR NEB NEB Last administered on 07/31/16 03:40; Start 07/23/16 at 18:00; Stop 07/31/16 at 07:05; Status DC Chlorhexidine Gluconate 15 ml 15 ml BID@08,20 MT Last administered on 08/14/16 08:00; Start 07/23/16 at 20:00 Propofol 100 ml @ 0 mls/hr TITRATE IV Last administered on 07/30/16 06:54; Start 07/23/16 at 19:30; Status Hold Fentanyl Citrate (fentaNYL DRIP) 250 ml @ 0 mls/hr TITRATE IV Last administered on 07/24/16 00:59; Start 07/23/16 at 19:30; Stop 07/30/16 at 08:11; Status DC Mupirocin (Bactroban Nasal 2% Oint) 1 applic Taper BID EACH NARE Last administered on 08/14/16 12:45; Start 07/23/16 at 21:00; Stop 07/19/17 at 20:59 IV Flush (NS Flush) DAILY IVF Last administered on 08/12/16 08:49; Start 07/23 at 20:00 IV Flush UNSCH PRN IVF SEE PROTOCOL; Start 07/23/16 at 20:00 Sodium Chloride 1,000 ml @ 84 mls/hr [id number] IV Last administered on 08:20; Start 07/23/16 at 20:45; Stop 07/26/16 at 11:24; Status DC Cefepime HCl 2000 mg/Sodium Chloride 100 ml @ 200 mls/hr DAILY IV Last administered on 07/26/16 08:29; Start 07/23/16 at 22:00; Stop 07/26/16 at 14:28 ; Status DC Clindamycin Phosphate 600 mg/ Sodium Chloride 104 ml @ 208 mls/hr Q8H IV Last administered on 07/24/16 06:08; Start 07/23/16 at 23:00; Stop 07/24/16 at 10:54; Status DC Linezolid (Zyvox 600 Mg Premix) 300 ml @ 300 mls/hr Q12HR IV Last administered on 08/02/16 08:12; Start 07/24/16 at 11:00; Stop 08/02/16 at 15:34 ; Status DC Nitroglycerin (Nitroglycerin 2% Oint) 2 inch Q6H PRN TOPICAL SBP> 160 Last administered on 08/11/16 17:09; Start 07/25/16 at 04:15 Epinephrine HCl (EPINEPHrine (1:10,000) INJ) 1 mg STK-MED ONCE .ROUTE ; Start at 16:22; Stop 07/25/16 at 16:23; Status DC Atropine Sulfate (Atropine Inj) 1 mg STK-MED ONCE .ROUTE ; Start 07/25/16 at 16: 22; Stop 07/25/16 at 16:23; Status DC Lidocaine HCl (Xylocaine 2% Inj) 100 mg STK-MED ONCE .ROUTE ; Start 07/25/16 at 16:23; Stop 07/25/16 at 16:24; Status DC Atropine Sulfate (Atropine Inj) 1 mg STK-MED ONCE IV ; Start 07/23/16 at 12:07; Stop 07/26/16 at 12:10; Status DC Sodium Bicarbonate (Sodium Bicarbonate 8.4% Inj) 50 meq STK-MED ONCE IV ; Start 07/23/16 at 12:08; Stop 07/26/16 at 12:10; Status DC Epinephrine HCl (EPINEPHrine (1:10,000) INJ) 1 mg STK-MED ONCE IV ; Start at 12:09; Stop 07/26/16 at 12:10; Status DC Sodium Chloride (Sodium Chloride 0.9% Inj) 20 ml STK-MED ONCE IV ; Start at 12:10; Stop 07/26/16 at 12:10; Status DC Bumetanide (Bumex Inj) 2 mg BID@09,18 IV PUSH Last administered on 07/29/16 16 :49; Start 07/27/16 at 09:00; Stop 07/29/16 at 19:02; Status DC Hydralazine HCl (Apresoline) 75 mg TID PO ; Start 07/27/16 at 09:00; Stop at 09:00; Status DC Docusate Sodium (Colace) 100 mg BID PO Last administered on 08/14/16 12:43; Start 07/27/16 at 09:00 Sennosides (Senokot) 8.6 mg Q12HR PO Last administered on 08/14/16 12:46; Start 07/27/16 at 09:00 Polyethylene Glycol (Miralax) 17 gm ONCE ONCE PO Last administered on 07:59; Start 07/27/16 at 07:15; Stop 07/27/16 at 07:17; Status DC Mineral Oil (Mineral Oil Liq) 15 ml ONCE ONCE PO Last administered on 07:58; Start 07/27/16 at 07:15; Stop 07/27/16 at 07:17; Status DC Potassium Chloride (KCl 40 Meq/30 ml Liq) 40 meq ONCE ONCE PO Last administered on 07/27/16 07:58; Start 07/27/16 at 07:15; Stop 07/27/16 at 07:16 ; Status DC Hydralazine HCl (Apresoline) 100 mg TID PO Last administered on 07/29/16 08:01 ; Start 07/27/16 at 09:00; Stop 07/29/16 at 11:02; Status DC Miscellaneous (Pill Splitter) 1 ea UNSCH PRN OTHER SEE LABEL COMMENTS; Start at 07:15; Status Cancel Clonidine 0.1 mg 0.1 mg Q8HR PO Last administered on 07/27/16 13:58; Start 05/02 at 14:00; Stop 07/27/16 at 18:12; Status DC Clevidipine (Cleviprex Inj) 50 ml @ 0 mls/hr TITRATE IV Last administered on 01:43; Start 07/27/16 at 11:00; Stop 07/30/16 at 17:22; Status DC Clonidine (Catapres) 0.2 mg Q8HR PO Last administered on 08/14/16 13:34; Start 07/27/16 at 22:00 Alteplase, Recombinant (Cathflo Activase Inj) 2 mg ONCE ONCE IV Last administered on 07/29/16 07:03; Start 07/29/16 at 06:45; Stop 07/29/16 at 06:46 ; Status DC Alteplase, Recombinant (Cathflo Activase Inj) 2 mg ONCE ONCE IV Last administered on 07/29/16 08:05; Start 07/29/16 at 06:45; Stop 07/29/16 at 06:46 ; Status DC Alteplase, Recombinant (Cathflo Activase Inj) 2 mg ONCE ONCE IV Last administered on 07/29/16 08:05; Start 07/29/16 at 06:45; Stop 07/29/16 at 06:46 ; Status DC Hydralazine HCl (Apresoline) 100 mg Q8HR PO Last administered on 08/14/16 13:34 ; Start 07/29/16 at 14:00 Ferrous Sulfate (Ferrous Sulfate Liq) 300 mg BID PO Last administered on 13:35; Start 07/29/16 at 12:00 Aspirin (Aspirin Chew) 81 mg DAILY PO Last administered on 08/14/16 12:46; Start 07/29/16 at 12:00 Bumetanide 2 mg 2 mg Q6HR IV PUSH Last administered on 08/02/16 11:17; Start 07/30/16 at 00:00; Stop 08/02/16 at 13:03; Status DC Potassium Chloride (KCl 40 Meq Premix Inj) 100 ml @ 25 mls/hr BOLUS ONCE IV Last administered on 07/29/16 21:05; Start 07/29/16 at 19:15; Stop 07/29/16 at 23:14; Status DC Potassium Chloride 20 meq 20 meq Q12HR TUBE Last administered on 07/30/16 09: 45; Start 07/29/16 at 21:00; Stop 07/30/16 at 11:46; Status DC Dexmedetomidine HCl (Precedex Inj) 50 ml @ 0 mls/hr TITRATE IV Last administered on 07/30/16 15:35; Start 07/30/16 at 08:00; Stop 07/30/16 at 22:25 ; Status DC Potassium Chloride 40 meq 40 meq Q12HR TUBE Last administered on 08/03/16 23: 47; Start 07/30/16 at 21:00; Stop 08/05/16 at 16:51; Status DC Potassium Chloride/Sodium Chloride (KCl Inj/NS Inj) 115 ml @ 38.333 mls/ hr ONCE ONCE IV-CENTRAL Last administered on 07/30/16 14:09; Start 07/30/16 at 12:00; Stop 07/30/16 at 14:59; Status DC Gabapentin (Neurontin) 300 mg BID PO Last administered on 08/14/16 12:46; Start 07/30/16 at 21:00 Metoprolol Tartrate (Lopressor Inj) 2.5 mg NOW ONCE IV PUSH Last administered on 07/30/16 18:00; Start 07/30/16 at 17:15; Stop 07/30/16 at 17:16; Status DC Metoprolol Tartrate 5 mg 5 mg STK-MED ONCE .ROUTE Last administered on 17:11; Start 07/30/16 at 17:10; Stop 07/30/16 at 17:11; Status DC Nicardipine HCl 25 mg/Sodium Chloride 260 ml @ 0 mls/hr TITRATE IV Last administered on 08/07/16 13:00; Start 07/30/16 at 17:30 Dexmedetomidine HCl 1000 mcg/ Sodium Chloride 250 ml @ 0 mls/hr TITRATE IV Last administered on 07/31/16 09:12; Start 07/30/16 at 22:25; Stop 08/08/16 at 12:35; Status DC Potassium Chloride (KCl 20 Meq Premix Inj) 100 ml @ 50 mls/hr Q2H IV Last administered on 07/31/16 08:15; Start 07/31/16 at 07:00; Stop 07/31/16 at 10:59 ; Status DC Furosemide (Lasix Inj) 40 mg ONCE ONCE IV PUSH Last administered on 07/31/16 08:12; Start 07/31/16 at 07:15; Stop 07/31/16 at 07:16; Status DC Nicardipine HCl (Cardene Inj) 25 mg STK-MED ONCE .ROUTE ; Start 07/31/16 at 09: 06; Stop 07/31/16 at 09:07; Status DC Promethazine HCl 25 mg 25 mg Q6H PRN IM NAUSEA Last administered on 08/02/16 13:17; Start 07/31/16 at 17:45 Potassium Chloride 30 meq/ Sodium Chloride 115 ml @ 38.333 mls/ hr ONCE ONCE IV-CENTRAL ; Start 08/01/16 at 15:00; Stop 08/01/16 at 17:59; Status Cancel Potassium Chloride (KCl 10 Meq Premix Inj) 100 ml @ 100 mls/hr Q1H IV Last administered on 08/01/16 15:08; Start 08/01/16 at 14:00; Stop 08/01/16 at 16:59 ; Status DC Bumetanide (Bumex Inj) 2 mg Q8HR ALT NEB IV PUSH Last administered on 11:49; Start 08/02/16 at 20:00; Stop 08/03/16 at 13:29; Status DC Prednisone 10 mg 10 mg BID PO Last administered on 08/09/16 09:08; Start 08/02 at 21:00; Stop 08/09/16 at 12:49; Status DC Bumetanide (Bumex Inj) 100 ml @ 8 mls/hr CONTINUOUS IV Last administered on 03:23; Start 08/03/16 at 15:30; Stop 08/05/16 at 12:56; Status DC Hydralazine HCl 20 mg 20 mg Q4H PRN IV PUSH SBP >165 Last administered on 03:26; Start 08/04/16 at 18:00 Sodium Chloride (NS 1000 ml Inj) 1,000 ml @ 0 mls/hr Q0M PRN IV For Prime & Rinse Back Last administered on 08/14/16 09:37; Start 08/04/16 at 15:14 Heparin Sodium (Porcine) 8000 units 8,000 units UNSCH PRN IVF WITH DIALYSIS; Start 08/04/16 at 15:15 Sodium Chloride 1,000 ml @ 200 mls/hr Q5H PRN IV WITH DIALYSIS Last administered on 08/14/16 09:37; Start 08/04/16 at 15:14 Sodium Chloride (NS 1000 ml Inj) 1,000 ml @ 0 mls/hr Q0M PRN IV WITH DIALYSIS; Start 08/04/16 at 15:14 Mannitol (Mannitol Inj) 12.5 gm UNSCH PRN IV WITH DIALYSIS Last administered on 08/08/16 08:07; Start 08/04/16 at 15:15 Albumin Human (Albumin 25% Inj) 25 gm UNSCH PRN IV WITH DIALYSIS; Start at 15:15 IV Flush (NS Flush) 5 ml UNSCH PRN IVF WITH DIALYSIS Last administered on 09:37; Start 08/04/16 at 15:15 Heparin Sodium (Porcine) (Heparin Inj) UNSCH PRN .XX WITH DIALYSIS Last administered on 08/14/16 09:36; Start 08/04/16 at 15:15 Gentamicin Sulfate (Gentamicin (Dialysis) Inj) 20 mg UNSCH PRN IV WITH DIALYSIS Last administered on 08/14/16 09:37; Start 08/04/16 at 15:15 Ondansetron HCl (Zofran Inj) 4 mg UNSCH PRN IV WITH DIALYSIS Last administered on 08/06/16 18:47; Start 08/04/16 at 15:15 Acetaminophen (Tylenol) 650 mg UNSCH PRN PO for headach, pain, temp > 101F; Start 08/04/16 at 15:15 Diphenhydramine HCl (Benadryl) 25 mg UNSCH PRN PO for hives/itching/anaphylaxis ; Start 08/04/16 at 15:15 Nitroglycerin (Nitrostat Sl) 0.4 mg UNSCH PRN SL CHEST PAIN; Start 08/04/16 at 15:15 Clonidine (Catapres) 0.1 mg UNSCH PRN PO for BP > 180/100 X 2 readings Last administered on 08/11/16 18:01; Start 08/04/16 at 15:15 Epoetin Joseph (Epogen Inj) 10,000 units UNSCH PRN IV WITH DIALYSIS Last administered on 08/14/16 09:36; Start 08/04/16 at 15:15 Gelatin (Gelfoam 12 Mm/7 Mm Top) 1 foam UNSCH PRN TOP SEE LABEL COMMENTS; Start 08/04/16 at 15:15 Epinephrine HCl (EPINEPHrine (1:10,000) INJ) 1 mg STK-MED ONCE .ROUTE ; Start at 11:12; Stop 08/05/16 at 11:13; Status DC Atropine Sulfate (Atropine Inj) 1 mg STK-MED ONCE .ROUTE ; Start 08/05/16 at 11: 12; Stop 08/05/16 at 11:13; Status DC Lidocaine HCl (Xylocaine 2% Inj) 100 mg STK-MED ONCE .ROUTE ; Start 08/05/16 at 11:12; Stop 08/05/16 at 11:13; Status DC Heparin Sodium (Porcine) (*HEPARIN INJ Periprocedural ONLY) 10,000 units STK- MED ONCE .ROUTE Last administered on 08/05/16 12:05; Start 08/05/16 at 12:03; Stop 08/05/16 at 12:04; Status DC IV Flush (NS Flush) UNSCH PRN IVF SEE PROTOCOL; Start 08/05/16 at 12:15 Heparin Sodium (Porcine) (Heparin Inj) UNSCH PRN IVF SEE PROTOCOL; Start 08/05 at 12:15 Prednisone (Deltasone) 10 mg DAILY PO Last administered on 08/14/16 12:47; Start 08/10/16 at 09:00 Albuterol/ Ipratropium (Duoneb Neb) 1 ampule QID NEB NEB Last administered on 08/13/16 12:46; Start 08/09/16 at 16:00; Stop 08/13/16 at 16:00; Status DC Date of Insertion: Jul 23, 2016 Line: Central Venous Catheter Side: Left Location: Internal, Jugular A/P Problem List: (1) Acute exacerbation of CHF (congestive heart failure) ICD Code: I50.9 Status: Acute (2) Stage 4 chronic kidney disease ICD Code: N18.4 Status: Acute (3) Elevated troponin ICD Code: R79.89 Status: Acute (4) HTN (hypertension) ICD Code: I10 Status: Chronic (5) Diabetes ICD Code: E11.9 Status: Chronic Assessment and Plan 50 Y/O female with a medical history significant for CHF, depression, HTN, dm, and ckd with prolonged hospital stay secondary to recurrent intubation, status post cardiac arrest. Patient currently still in the ICU and slowly improving. Acute respiratory failure: Likely a combination of renal failure, diastolic heart failure, pulmonary edema, possible COPD, HCAP with MRSA in the sputum. Patient has been intubated about 3 times during this hospitalization. Currently on BiPAP at night and as needed. - Appreciate pulmonology following. On prednisone. bipap per Pulmonology - Infectious disease following. s/p Rocephin and Zyvox. Antibiotics discontinued. Monitor patient off antibiotic. - Patient currently on nasal cannula with bipap as needed. BRENDA RN. Acute on chronic kidney disease: Now on dialysis. ESRD -Appreciate nephrology following. Most likely advanced diabetic nephropathy. Status post Vas-Cath placement. Dialysis per nephrology. continue to f/u with BMP. - Vascular surgery planning for aVF Encephalopathy: -RESOLVED. Secondary to multiple comorbid conditions above. Anoxic injury also possibility. Continue to follow. CHF: Echocardiogram 05/21 revealed EF 50%. Mildly dilated ventricle. Diffuse hypokinesis. Echocardiogram 07/23 reveals EF 45-50%. No regional motion abnormality. POOL 59 mmHg. Mild TR. - Continue Coreg, lisinopril. Previously followed by cardiology. Troponin likely due to fluid overloaded state per Cards. previous stress test showing mild small lateral wall defect. Severe deconditioning: Secondary to above comorbidities. Need to mobilize patient. PT following blood respiratory status limit therapy. Hypertension: Resistant, difficult to control. On Coreg 25mg BID, hydralazine 100mg TID, lisinopril 20 daily, clonidine 0.2 mg every 8 hours Continue atorvastatin 80 mg daily's for dyslipidemia. Cont Nifedipine. Continue hydralazine IV as needed. Diabetes mellitus: - Continue sliding scale insulin with Accu-Chek Anemia: Currently on iron sulfate 325mg PO twice a day/home medication. Monitor CBC. Transfuse for hemoglobin less than 7 GI prophylaxis: Stool softener PRN constipation. DVT PPx: SCDs/Heparin Dispo: Patient has been accepted to [facility] but case management has to clarify if renal failure is chronic or acute from extension edger. [facility] will not accept any ARF patients. Problem Qualifiers (1) Acute exacerbation of CHF (congestive heart failure): Qualified Code: I50.9 - Acute on chronic congestive heart failure, unspecified congestive heart failure type (2) HTN (hypertension): Qualified Code: I10 - Essential hypertension (3) Diabetes: Valorie Parekh MD Aug 14, 2016 16:21
--- NOTE | 2016-08-14 17:55 | HHI.PR ---
Subjective Remarks Stable and breathing easy. On O2 2 L N/C. No fever. Used Bipap at HS. Objective Vital Signs Date Time Temp Pulse Resp B/P Pulse Ox O2 Delivery O2 Flow Rate FiO2 08/14/16 17:29 93 Nasal Cannula 2.00 08/14/16 15:57 99.4 65 20 164/77 93 08/14/16 08:12 92 Nasal Cannula 2.00 08/14/16 08:00 98.4 64 20 171/82 92 08/14/16 04:22 98.0 64 18 165/81 92 08/13/16 23:00 Nasal Cannula 2.00 08/13/16 22:00 60 08/13/16 21:57 98.6 59 18 153/76 93 08/13/16 20:00 98.1 62 17 135/80 95 08/13/16 20:00 62 08/13/16 19:00 Nasal Cannula 2.00 08/13/16 18:00 62 I/O 08/13/16 08/13/16 08/13/16 08/14/16 08/14/16 08/14/16 07:00 15:00 23:00 07:00 15:00 23:00 Intake Total 240 ml 600 ml 240 ml 120 ml 0 ml Output Total 450 ml 225 ml 250 ml 250 ml 4000 ml 400 ml Balance -210 ml 375 ml -10 ml -130 ml -4000 ml -400 ml Intake Oral 240 ml 600 ml 240 ml 120 ml 0 ml Output Urine Total 450 ml 225 ml 250 ml 250 ml 400 ml Hemodialysis 4000 ml # Bowel Movements 0 0 0 0 0 Result Diagram: 08/13/1632908/13/16 033 Objective Remarks General: This is a very obese middle-aged lady who is alert . HEENT: Head normocephalic. Pupils are reactive. Tongue is moist. Throat is clear. Nasal mucosa clear Neck: Supple.No JVD. No lymphadenopathy. Trachea midline. Chest: Distant breath sounds and few crackles at the lung bases.Occ wheeze heard. Heart: The heart sounds are regular. S1 and S2. No definite murmur. No S3. Abdomen: Soft, protuberant. No mass, no organomegaly or tenderness. Bowel sounds are active. Extremities: Decreased peripheral pulses. No leg edema. Neurologic: responsive. Reflexes 1 +. No deficits Rectal: Exam deferred. Skin: dry and warm. Assessment and Plan Assessment and Plan . IMPRESSION 1. CHF with acute exacerbation. 2. Possible obstructive sleep apnea syndrome. 3. Hypertension. 4. Elevated troponin. 5. Diabetes mellitus type 2. 6. S/P respiratory Arrest. Plan : 1. Cont O2 N/C 2 L. 2. Cont Bipap at HS from 10 PM to 6 AM 12/5 , FIo2 28 % 3. Nebs qid , duoneb. 4. Transfer to rehab soon 5. Cont prednisone 10 mg daily. 6. IS at bedside qid. 7. Dialysis every other day. 8. PT evaluation for activity. 9. PFT this week. Sheela Lau MD Aug 14, 2016 17:55
--- NOTE | 2016-08-14 18:37 | PD.VS.PN ---
Subjective Subjective/Hospital Course Pt seen by Dr. Zamorano on 08.09. See his note for full consult. I saw her tonight and she notes that her breathing is improving. UE vein duplex revealed B cephalic veins ok but L Forearm cephalic vein has focal thrombus [place] [facility] presently via R chest catheter RIGHT handed and no prior access attempts Objective Vitals/I&O Date Time Temp Pulse Resp B/P Pulse Ox O2 Delivery O2 Flow Rate FiO2 08/14/16 17:29 93 Nasal Cannula 2.00 08/14/16 15:57 99.4 65 20 164/77 93 08/14/16 08:12 92 Nasal Cannula 2.00 08/14/16 08:00 98.4 64 20 171/82 92 08/14/16 04:22 98.0 64 18 165/81 92 08/13/16 23:00 Nasal Cannula 2.00 08/13/16 22:00 60 08/13/16 21:57 98.6 59 18 153/76 93 08/13/16 20:00 98.1 62 17 135/80 95 08/13/16 20:00 62 08/13/16 19:00 Nasal Cannula 2.00 08/14/16 08/14/16 08/14/16 06:59 14:59 22:59 Intake Total 120 ml 0 ml Output Total 250 ml 4000 ml 400 ml Balance -130 ml -4000 ml -400 ml Physical Exam NO L UE incisions Good hand strength Imaging Last 48 hours Impressions Chest X-Ray 08/14/16 0600 Signed Impressions: Service Date/Time: Sunday, August 14, 2016 06:41 - CONCLUSION: 1. Right basilar density with probable small pleural effusion. 2. Cardiomegaly and right sided jugular line. Dylon Haley MD Assessment and Plan Assessment: (1) Stage 4 chronic kidney disease Status: Acute Plan Save LEFT arm for LEFT BRACHIOCEPHALIC Can be performed this hospitalization if breathing and overall clinical picture improves as this is elective procedure. Earl Mike MD FACS tier and detonator [facility] Earl Mike MD Aug 14, 2016 18:37
[2016-08-14] MEDS: ATORVASTATIN 80 MG TAB PO SCH (22:49)
[2016-08-15] VITALS (10 sets, daily range): BP systolic 72–179; BP diastolic 69–81; PULSE 64–69; RESP 18–20; TEMP 98–98.7; O2SAT 92–99
[2016-08-15] MEDS: CHLORHEXIDINE GLUCONATE 2 % 1 PACK (2 CLOTHS) TOP SCH (04:00)
[2016-08-15] MEDS: INSULIN NovoLIN REGULAR SUPPLEMENTAL SCALE SQ SCH ×4 (05:00→22:04)
[2016-08-15] MEDS: NIFEdipine 20 MG CAP PO SCH ×3 (05:42→22:07)
[2016-08-15] MEDS: hydrALAZINE HCL 50 MG TAB PO SCH ×3 (05:43→22:00)
[2016-08-15] MEDS: cloNIDine HCL 0.1 MG TAB PO SCH ×3 (05:43→22:08)
[2016-08-15 07:59] LABS: HEMATOCRIT 29.4 % (35.0-46.0); MEAN CELL VOLUME 71.4 FL (80.0-100.0); MEAN CORPUSCULAR HGB CONC 30.9 % (32.0-36.0); PLATELET COUNT 173 TH/MM3 (150-450); RED BLOOD COUNT 4.12 MIL/MM3 (4.00-5.30); RED CELL DISTRIBUTION WIDTH 19.2 % (11.6-17.2); WHITE BLOOD COUNT 5.6 TH/MM3 (4.0-11.0)
[2016-08-15 08:11] LABS: REVIEW FLAG FINAL
[2016-08-15] MEDS: SODIUM CHLORIDE 0.9% FLUSH 5 ML FLUSH IVF SCH ×2 (09:00→21:00)
[2016-08-15] MEDS: ASPIRIN 81 MG CHEW TAB PO SCH (09:00)
[2016-08-15] MEDS: predniSONE 10 MG TAB PO SCH (09:34)
[2016-08-15] MEDS: LISINOPRIL 20 MG TAB PO SCH (09:34)
[2016-08-15] MEDS: CARVEDILOL 12.5 MG TAB PO SCH ×2 (09:34→22:05)
[2016-08-15] MEDS: FERROUS SULFATE 300 MG /5ML UDC PO SCH ×2 (09:35→22:06)
[2016-08-15] MEDS: SENNOSIDES 8.6 MG TAB PO SCH ×2 (09:35→21:00)
[2016-08-15] MEDS: HEPARIN SODIUM - SQ 10,000 UNITS/ML VIAL SQ SCH (09:35)
[2016-08-15] MEDS: GABAPENTIN 300 MG CAP PO SCH ×2 (09:35→22:06)
[2016-08-15] MEDS: DOCUSATE SODIUM 100 MG CAP PO SCH ×2 (09:35→21:00)
[2016-08-15] MEDS: PANTOPRAZOLE SODIUM 40 MG VIAL IV SCH (09:35)
[2016-08-15] MEDS: MUPIROCIN 2% OINT 1 APPLIC/GM SYR EACH NARE SCH ×2 (09:35→21:00)
--- NOTE | 2016-08-15 11:45 | HHI.NPPN ---
Subjective History of Present Illness 50 year old with CKD 4/5 Diabetes Nephrotic range proteinuria Additional Remarks Patient is alert, no complain. Review of Systems General Constitutional: Fatigue Cardiovascular Cardiac: Edema Objective Data Data 08/14/16 08/15/16 19:00 07:00 Intake Total 0 ml 722 ml Output Total 4400 ml 700 ml Balance -4400 ml 22 ml Intake Oral 0 ml 720 ml IV Total 2 ml Output Urine Total 400 ml 700 ml Hemodialysis 4000 ml # Bowel Movements 0 0 Vital Signs Date Time Temp Pulse Resp B/P Pulse Ox O2 Delivery O2 Flow Rate FiO2 08/15/16 08:00 98.4 69 20 153/73 93 08/15/16 04:00 98.1 64 18 179/79 94 08/15/16 00:00 98.0 65 18 177/81 93 08/14/16 21:55 Nasal Cannula 2.00 08/14/16 20:21 68 08/14/16 20:00 98.5 67 18 192/94 93 08/14/16 17:29 93 Nasal Cannula 2.00 08/14/16 15:57 99.4 65 20 164/77 93 -: 08/15/16 0641 08/13/16 0330 Physical Exam General Appearance: No Acute Distress, Comfortable, Anxious, Obese Throat Throat Exam: Oral Mucosa [place] & Moist Neck Neck Exam: Neck Supple Pulmonary Resp Exam: Rhonchi, Decreased Bases, Diminished Breath Sounds Cardiology CV Exam: Regular, Normal Sinus Rhythm Gastrointestinal/Abdomen GI Exam: Soft, Non-Tender, Distended Extremeties Extremities Exam: Pitting Edema, Dependent Edema Neurologic Neuro Exam: Alert, Awake, Oriented Assessment/Plan Problem List: (1) ESRD (end stage renal disease) on dialysis Plan: kidney failure due to advance diabetic nephropathy 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 Will also get PermCath. HD will be in AM. (2) Stage 4 chronic kidney disease Plan: Patient with advanced kidney disease and had the workup in May. 10 g of proteinuria Most likely has advance Diabetic Nephropathy. continue HD tomorrow (3) Hypoventilation associated with obesity syndrome Plan: critical care following (4) Nephrotic syndrome Plan: Protein to creatinine ratio above 10 10.52 (5) Acute exacerbation of CHF (congestive heart failure) Plan: This is likely due to chronic kidney disease and diastolic dysfunction (6) Diabetes Plan: Advance manifestations diabetic nephropathy, retinopathy and neuropathy (7) HTN (hypertension) Plan: Continue to monitor on PRN hydralazine Problem Qualifiers (1) Acute exacerbation of CHF (congestive heart failure): Qualified Code: I50.9 - Acute on chronic congestive heart failure, unspecified congestive heart failure type (2) Diabetes: (3) HTN (hypertension): Qualified Code: I10 - Essential hypertension Mia Medley MD Aug 15, 2016 11:45
--- NOTE | 2016-08-15 13:13 | HHI.PR ---
Subjective Remarks Patient reports she is feeling better. No complaints of pain. No shortness of breath. Trying to get stronger. Is open to going to inpatient rehabilitation. Objective Vitals Vital Signs Date Time Temp Pulse Resp B/P Pulse Ox O2 Delivery O2 Flow Rate FiO2 08/15/16 12:43 96 Nasal Cannula 2.00 08/15/16 12:00 98.5 65 18 150/69 99 08/15/16 08:00 98.4 69 20 153/73 93 08/15/16 04:00 98.1 64 18 179/79 94 08/15/16 00:00 98.0 65 18 177/81 93 08/14/16 21:55 Nasal Cannula 2.00 08/14/16 20:21 68 08/14/16 20:00 98.5 67 18 192/94 93 08/14/16 17:29 93 Nasal Cannula 2.00 08/14/16 15:57 99.4 65 20 164/77 93 I/O 08/14/16 08/14/16 08/14/16 08/15/16 08/15/16 08/15/16 07:00 15:00 23:00 07:00 15:00 23:00 Intake Total 120 ml 482 ml 240 ml Output Total 250 ml 4000 ml 400 ml 700 ml Balance -130 ml -4000 ml 82 ml -460 ml Intake Oral 120 ml 480 ml 240 ml IV Total 2 ml Output Urine Total 250 ml 400 ml 700 ml Hemodialysis 4000 ml # Bowel Movements 0 0 0 Result Diagram: 08/15/16 0641 08/13/16 0330 Objective Remarks GENERAL: This is a well-nourished, well-developed patient, in no apparent distress. CARDIOVASCULAR: Regular rate and rhythm RESPIRATORY: Relatively Clear to auscultation. Breath sounds equal bilaterally. No wheezes, rales, or rhonchi. GASTROINTESTINAL: Abdomen soft, , obese, non-tender, nondistended. Normal active bowel sounds MUSCULOSKELETAL: Extremities without clubbing, cyanosis, 2+ edema NEURO: Alert & Oriented x4 to person, place, time, situation. Moves all ext x4 Date of Insertion: Jul 23, 2016 Line: Central Venous Catheter Side: Left Location: Internal, Jugular A/P Problem List: (1) Acute exacerbation of CHF (congestive heart failure) ICD Code: I50.9 Status: Acute (2) Stage 4 chronic kidney disease ICD Code: N18.4 Status: Acute (3) Elevated troponin ICD Code: R79.89 Status: Acute (4) HTN (hypertension) ICD Code: I10 Status: Chronic (5) Diabetes ICD Code: E11.9 Status: Chronic Assessment and Plan 50 Y/O female with a medical history significant for CHF, depression, HTN, dm, and ckd stage 5 with prolonged hospital stay secondary to recurrent intubation, status post cardiac arrest. Patient now improving on the medical surgical unit. Acute respiratory failurenow resolved: Likely a combination of renal failure, acute on chronic diastolic heart failure, pulmonary edema, possible COPD, HCAP with MRSA in the sputum. Patient has been intubated about 3 times during this hospitalization. Currently on BiPAP at night and as needed and on 2 L of oxygen. - Appreciate pulmonology following. On prednisone. bipap per Pulmonology - Infectious disease following. s/p Rocephin and Zyvox. Antibiotics discontinued. Monitor patients off antibiotic. - Patient currently on nasal cannula with bipap as needed. Acute on chronic kidney disease V: Now on dialysis. ESRD -per nephrology will need long-term hemodialysis. -Appreciate nephrology following. Most likely advanced diabetic nephropathy. Status post Vas-Cath placement. Dialysis per nephrology. continue to f/u with BMP. - Vascular surgery planning for elective aVF during this hospitalization, appreciate consult. Encephalopathy, multifactorial: -RESOLVED. Secondary to multiple comorbid conditions above. Anoxic injury also possibility. Continue to follow. CHF: Echocardiogram 05/21 revealed EF 50%. Mildly dilated ventricle. Diffuse hypokinesis. Echocardiogram 07/23 reveals EF 45-50%. No regional motion abnormality. POOL 59 mmHg. Mild TR. - Continue Coreg, lisinopril. Previously followed by cardiology. Previous elevated Troponin likely due to fluid overloaded state per Cards. previous stress test showing mild small lateral wall defect. Severe deconditioning: Secondary to above comorbidities. Need to mobilize patient. PT following; good candidate for inpatient rehabilitation. Hypertension: Resistant, difficult to control. On Coreg 25mg BID, hydralazine 100mg TID, lisinopril 20 daily, clonidine 0.2 mg every 8 hours Continue atorvastatin 80 mg daily's for dyslipidemia. Cont Nifedipine. Continue hydralazine IV as needed. Diabetes mellitus, type II: - Continue sliding scale insulin with Accu-Chek Anemia, of chronic disease: Currently on iron sulfate 325mg PO twice a day/home medication. Monitor CBC. Transfuse for hemoglobin less than 7 DVT PPx: SCDs/Heparin Discharge Planning Dispo: Patient has been accepted to [facility] and nephrology has confirmed that patient will need long-term hemodialysis for her end-stage renal disease Problem Qualifiers (1) Acute exacerbation of CHF (congestive heart failure): Qualified Code: I50.9 - Acute on chronic congestive heart failure, unspecified congestive heart failure type (2) HTN (hypertension): Qualified Code: I10 - Essential hypertension (3) Diabetes: Sameera Tay MD Aug 15, 2016 13:13
[2016-08-15] MEDS ORDERED: ceFAZolin 2 GM PREMIX 50 ML IV SCH (14:30)
[2016-08-15] MEDS ORDERED: VANCOMYCIN INJ 1,000 MG in SODIUM CHLOR 0.9% 250 ML INJ 250 ML IV SCH (14:30)
[2016-08-15 17:08] LABS: APTT (PATIENT) 25.7 SEC (24.3-30.1); INTERNATIONAL NORMALIZED RATIO 1.2 RATIO; PROTHROMBIN TIME - PATIENT 13.3 SEC (9.8-11.6)
[2016-08-15] MEDS: CHLORHEXIDINE 0.12% (ORAL KIT) 15 ML CUP MT SCH (20:00)
[2016-08-15] MEDS: NYSTATIN 100,000 UNIT/GM CREAM 15 GM TOPICAL SCH (21:00)
[2016-08-15] MEDS: ATORVASTATIN 80 MG TAB PO SCH (22:05)
[2016-08-16] VITALS (7 sets, daily range): BP systolic 141–173; BP diastolic 64–83; PULSE 55–72; RESP 18–20; TEMP 98–98.4; O2SAT 88–100
[2016-08-16] MEDS: CHLORHEXIDINE GLUCONATE 2 % 1 PACK (2 CLOTHS) TOP SCH (04:00)
[2016-08-16] MEDS: INSULIN NovoLIN REGULAR SUPPLEMENTAL SCALE SQ SCH ×4 (05:00→23:00)
[2016-08-16] MEDS: hydrALAZINE HCL 50 MG TAB PO SCH ×3 (05:17→22:00)
[2016-08-16] MEDS: cloNIDine HCL 0.1 MG TAB PO SCH ×3 (05:17→22:00)
[2016-08-16] MEDS: NIFEdipine 20 MG CAP PO SCH (05:18)
[2016-08-16] MEDS: CHLORHEXIDINE 0.12% (ORAL KIT) 15 ML CUP MT SCH ×2 (08:00→20:00)
[2016-08-16] MEDS: SODIUM CHLORIDE 0.9% FLUSH 5 ML FLUSH IVF SCH ×2 (09:00→09:17)
[2016-08-16] MEDS: ASPIRIN 81 MG CHEW TAB PO SCH (09:00)
[2016-08-16] MEDS: SENNOSIDES 8.6 MG TAB PO SCH ×2 (09:04→22:03)
[2016-08-16] MEDS: FERROUS SULFATE 300 MG /5ML UDC PO SCH ×2 (09:04→22:03)
[2016-08-16] MEDS: GABAPENTIN 300 MG CAP PO SCH ×2 (09:04→22:04)
[2016-08-16] MEDS: LISINOPRIL 20 MG TAB PO SCH (09:04)
[2016-08-16] MEDS: PANTOPRAZOLE SODIUM 40 MG VIAL IV SCH (09:04)
[2016-08-16] MEDS: DOCUSATE SODIUM 100 MG CAP PO SCH ×2 (09:04→22:05)
[2016-08-16] MEDS: MUPIROCIN 2% OINT 1 APPLIC/GM SYR EACH NARE SCH ×2 (09:04→22:04)
[2016-08-16] MEDS: predniSONE 10 MG TAB PO SCH (09:04)
[2016-08-16] MEDS: CARVEDILOL 12.5 MG TAB PO SCH ×2 (09:04→22:04)
[2016-08-16] MEDS: NYSTATIN 100,000 UNIT/GM CREAM 15 GM TOPICAL SCH ×2 (09:17→22:03)
[2016-08-16] MEDS ORDERED: MIDAZOLAM HCL 5 MG/5 ML VIAL ONE (09:48)
[2016-08-16] MEDS ORDERED: fentaNYL CITRATE 250 MCG/5 ML AMP ONE (09:48)
[2016-08-16] MEDS ORDERED: LIDOCAINE 1%/EPINEPHrine 1:100,000 SOLN 20 ML VIAL ONE (09:56)
--- NOTE | 2016-08-16 10:37 | PD.RAD ---
Post Procedure Progress Note Pre Procedure Diagnosis: (1) Congestive heart failure Post Procedure Diagnosis: (1) Congestive heart failure Procedure Date: Aug 16, 2016 Supervising Radiologist: Emre Daniel Proceduralist/Assist: Katarina Stewart, RT(R)(), London Ruiz RT(R)() Anesthesia: Conscious Sedation Plan of Activity Patient to Unit: Nursing Unit Patient Condition: Fair See PACS Report for procedural detail/treatment Central Venous Access Device Procedure 1 Right Internal Jugular Hemodialysis Catheter Tunneled Placement dual lumen Emre Daniel MD Aug 16, 2016 10:37
[2016-08-16] MEDS ORDERED: FLUMAZENIL 0.5 MG/5 ML VIAL ONE (10:42)
[2016-08-16] MEDS ORDERED: HEPARIN SODIUM - IV 10,000 UNITS/10 ML VIAL IVF PRN (10:45)
[2016-08-16] MEDS ORDERED: SODIUM CHLORIDE 0.9% FLUSH 5 ML FLUSH IVF PRN (10:45)
[2016-08-16] MEDS: EPOETIN ALFA 10,000 UNITS/ML VIAL IV PRN (13:30)
[2016-08-16] MEDS: HEPARIN SODIUM - IV 10,000 UNITS/10 ML VIAL PRN (13:46)
[2016-08-16] MEDS: GENTAMICIN SULFATE (DIALYSIS USE ONLY) 20 MG/2 ML VIAL IV PRN (13:46)
--- NOTE | 2016-08-16 13:56 | RADRPT ---
EXAM DATE/TIME: 08/16/2016 09:24 [facility] COMPARISON: No previous studies available for comparison. INDICATIONS : Patient with history of ESRD in need of permcath placement for dialysis. MEDICAL HISTORY : CHF last echo 08/01/15 EF 50% Depression HTN DM Neuropathy Anemia CKD SURGICAL HISTORY : Cardiac Cath 2015, was taken off Plavix at some point ENCOUNTER: Subsequent ACUITY: >1 year PAIN SCORE: 0/10 FLUORO TIME: 0.7 minutes IMAGE SERIES: SEDATION TIME: 30 minutes 1.) 2 mg midazolam (Versed) IV 2.) 100 mcg fentanyl (Sublimaze) IV Prophylactic antibiotics were administered with appropriate pre-procedure timing. Vancomycin within 2 hours of procedure, Ancef (or alternative) within 1 hour of procedure. 1. 15 [place] dual lumen 23 cm Permacath PROCEDURE : 1. Fluoroscopically-guided venipuncture. 2. PermaCath placement. 3. Conscious sedation with continuous EKG and oximetry monitoring. The risks, benefits and alternatives to the procedure were explained and verbal and written consent w as obtained. The site was prepped in sterile fashion. Full sterile technique was used, including ca p, mask, sterile gloves and gown and a large sterile sheet. Hand hygiene and 2% chlorhexidine Betadi ne was utilized per protocol for cutaneous antisepsis with appropriate dry time for site. The skin a nd subcutaneous tissues were infiltrated with local anesthetic solution. Utilizing fluoroscopic guidance a dermatotomy was created over the prescribed vein. A micropuncture set was used to access the targeted vein and serial dilatation was performed to accept the prescribed length Ames catheter. A subcutaneous tunnel was created in a retrograde fashion the Ames cathet er was pulled through the tunnel. The catheter was flushed and assembled and locked with heparin. T he catheter was sutured in place. Conscious sedation was performed with the prescribed dosages and duration as above in the presence of an independent trained radiology nurse to assist in the monitoring of the patient. EKG and oximetry remained stable throughout the procedure. The patient tolerated the procedure well and there were n o complications. The patient was sent to post anesthesia recovery in stable condition. CONCLUSION: Uncomplicated PermaCath placement as above. Emre Daniel MD on August 16, 2016 at 13:54 Board Certified Radiologist. This report was verified electronically.
--- NOTE | 2016-08-16 14:14 | HHI.PR ---
Subjective Remarks Doing okay. No complaint chest pain or shortness of breath. Objective Vitals Vital Signs Date Time Temp Pulse Resp B/P Pulse Ox O2 Delivery O2 Flow Rate FiO2 08/16/16 10:21 92 Nasal Cannula 2.00 08/16/16 08:00 Nasal Cannula 2.00 08/16/16 08:00 98.0 56 20 144/73 88 08/16/16 03:42 98.2 63 18 147/65 92 08/15/16 23:12 98.7 66 18 160/81 93 08/15/16 22:06 Nasal Cannula 2.00 08/15/16 20:42 98.6 66 18 72/ 95 08/15/16 20:03 64 08/15/16 16:00 98.7 67 20 168/81 92 I/O 08/15/16 08/15/16 08/15/16 08/16/16 08/16/16 08/16/16 07:00 15:00 23:00 07:00 15:00 23:00 Intake Total 240 ml 480 ml 722 ml 100 ml Output Total 700 ml 475 ml 150 ml 250 ml Balance -460 ml 5 ml 572 ml -150 ml Intake Oral 240 ml 480 ml 720 ml 100 ml IV Total 2 ml Output Urine Total 700 ml 475 ml 150 ml 250 ml # Bowel Movements 0 0 0 0 Result Diagram: 08/15/16 0641 08/13/16 0330 Objective Remarks GENERAL: This is a well-nourished, obese, well-developed patient, in no apparent distress. CARDIOVASCULAR: Regular rate and rhythm RESPIRATORY: Relatively Clear to auscultation. Breath sounds equal bilaterally. No wheezes, rales, or rhonchi. GASTROINTESTINAL: Abdomen soft, , obese, non-tender, nondistended. Normal active bowel sounds MUSCULOSKELETAL: Extremities without clubbing, cyanosis, 2+ edema NEURO: Alert & Oriented x4 to person, place, time, situation. Moves all ext x4 Date of Insertion: Jul 23, 2016 Line: Central Venous Catheter Side: Left Location: Internal, Jugular A/P Problem List: (1) Acute exacerbation of CHF (congestive heart failure) ICD Code: I50.9 Status: Acute (2) Stage 4 chronic kidney disease ICD Code: N18.4 Status: Acute (3) Elevated troponin ICD Code: R79.89 Status: Acute (4) HTN (hypertension) ICD Code: I10 Status: Chronic (5) Diabetes ICD Code: E11.9 Status: Chronic Assessment and Plan 50 Y/O female with a medical history significant for CHF, depression, HTN, dm, and ckd stage 5 with prolonged hospital stay secondary to recurrent intubation, status post cardiac arrest. Patient now improving on the medical surgical unit. Acute respiratory failurenow resolved: Likely a combination of renal failure, acute on chronic diastolic heart failure, pulmonary edema, possible COPD, HCAP with MRSA in the sputum. Patient has been intubated about 3 times during this hospitalization. Currently on BiPAP at night and as needed and on 2 L of oxygen. We'll need to get off of BiPAP prior to inpatient rehabilitation acceptance. - Appreciate pulmonology following. On prednisone. bipap per Pulmonology - Infectious disease following. s/p Rocephin and Zyvox. Antibiotics discontinued. Monitor patients off antibiotic. - Patient currently on nasal cannula with bipap as needed. Acute on chronic kidney disease V: Now on dialysis. ESRD -per nephrology will need long-term hemodialysis. -Appreciate nephrology following. Most likely advanced diabetic nephropathy. Status post Vas-Cath placement. Dialysis per nephrology. continue to f/u with BMP. - Vascular surgery planning for elective aVF during this hospitalization, appreciate consult. Encephalopathy, multifactorial: -RESOLVED. Secondary to multiple comorbid conditions above. Anoxic injury also possibility. Continue to follow. CHF: Echocardiogram 05/21 revealed EF 50%. Mildly dilated ventricle. Diffuse hypokinesis. Echocardiogram 07/23 reveals EF 45-50%. No regional motion abnormality. POOL 59 mmHg. Mild TR. - Continue Coreg, lisinopril. Previously followed by cardiology. Previous elevated Troponin likely due to fluid overloaded state per Cards. previous stress test showing mild small lateral wall defect. Severe deconditioning: Secondary to above comorbidities. Need to mobilize patient. PT following; good candidate for inpatient rehabilitation. Hypertension: Resistant, difficult to control. On Coreg 25mg BID, hydralazine 100mg TID, lisinopril 20 daily, clonidine 0.2 mg every 8 hours Continue atorvastatin 80 mg daily's for dyslipidemia. Cont Nifedipine at 20 mg by mouth every 8 hours. Continue hydralazine IV as needed. Diabetes mellitus, type II, uncontrolled: - Continue sliding scale insulin with Accu-Chek, add a low dose L[place]IR to regimen Anemia, of chronic disease: Currently on iron sulfate 325mg PO twice a day/home medication. Monitor CBC. Transfuse for hemoglobin less than 7 DVT prophylaxis: SCDs/Heparin Discharge Planning Dispo: Patient has been accepted to [facility] upon arranging outpatient hemodialysis and nephrology has confirmed that patient will need long-term hemodialysis for her end-stage renal disease Case management is working on getting patient arrange for outpatient dialysis Problem Qualifiers (1) Acute exacerbation of CHF (congestive heart failure): Qualified Code: I50.9 - Acute on chronic congestive heart failure, unspecified congestive heart failure type (2) HTN (hypertension): Qualified Code: I10 - Essential hypertension (3) Diabetes: Sameera Tay MD Aug 16, 2016 14:14
[2016-08-16] MEDS: NIFEdipine 10 MG CAP PO SCH ×2 (22:00→22:05)
[2016-08-16] MEDS: ATORVASTATIN 80 MG TAB PO SCH (22:04)
[2016-08-16] MEDS: HEPARIN SODIUM - SQ 10,000 UNITS/ML VIAL SQ SCH (22:05)
[2016-08-17] VITALS (7 sets, daily range): BP systolic 133–174; BP diastolic 67–94; PULSE 59–65; RESP 18–24; TEMP 97.7–98.3; O2SAT 95–97
[2016-08-17] MEDS: CHLORHEXIDINE GLUCONATE 2 % 1 PACK (2 CLOTHS) TOP SCH (04:00)
[2016-08-17] MEDS: INSULIN NovoLIN REGULAR SUPPLEMENTAL SCALE SQ SCH ×4 (05:00→22:56)
[2016-08-17] MEDS: NIFEdipine 10 MG CAP PO SCH ×3 (06:46→22:52)
[2016-08-17] MEDS: hydrALAZINE HCL 50 MG TAB PO SCH ×3 (06:46→22:52)
[2016-08-17] MEDS: cloNIDine HCL 0.1 MG TAB PO SCH ×3 (06:47→22:52)
[2016-08-17] MEDS: CHLORHEXIDINE 0.12% (ORAL KIT) 15 ML CUP MT SCH ×2 (08:00→20:00)
[2016-08-17] MEDS: SODIUM CHLORIDE 0.9% FLUSH 5 ML FLUSH IVF SCH ×3 (09:00→22:56)
[2016-08-17] MEDS: PANTOPRAZOLE SODIUM 40 MG VIAL IV SCH (09:02)
[2016-08-17] MEDS: FERROUS SULFATE 300 MG /5ML UDC PO SCH ×2 (09:03→22:52)
[2016-08-17] MEDS: DOCUSATE SODIUM 100 MG CAP PO SCH ×2 (09:03→22:53)
[2016-08-17] MEDS: LISINOPRIL 20 MG TAB PO SCH (09:03)
[2016-08-17] MEDS: SENNOSIDES 8.6 MG TAB PO SCH ×2 (09:03→22:53)
[2016-08-17] MEDS: GABAPENTIN 300 MG CAP PO SCH ×2 (09:03→22:51)
[2016-08-17] MEDS: predniSONE 10 MG TAB PO SCH (09:04)
[2016-08-17] MEDS: ASPIRIN 81 MG CHEW TAB PO SCH (09:04)
[2016-08-17] MEDS: CARVEDILOL 12.5 MG TAB PO SCH ×2 (09:04→22:53)
[2016-08-17] MEDS: HEPARIN SODIUM - SQ 10,000 UNITS/ML VIAL SQ SCH ×2 (09:04→22:53)
[2016-08-17] MEDS: NYSTATIN 100,000 UNIT/GM CREAM 15 GM TOPICAL SCH ×2 (09:05→21:00)
[2016-08-17] MEDS: MUPIROCIN 2% OINT 1 APPLIC/GM SYR EACH NARE SCH ×2 (09:13→22:55)
--- NOTE | 2016-08-17 16:25 | HHI.NPPN ---
Subjective History of Present Illness 50 year old with CKD 4/5 Diabetes Nephrotic range proteinuria Additional Remarks Patient is alert, no complain. Review of Systems General Constitutional: Fatigue Cardiovascular Cardiac: Edema Objective Data Data 08/16/16 08/17/16 19:00 07:00 Intake Total 480 ml 720 ml Output Total 450 ml 250 ml Balance 30 ml 470 ml Intake Oral 480 ml 720 ml Output Urine Total 450 ml 250 ml # Bowel Movements 0 0 Vital Signs Date Time Temp Pulse Resp B/P Pulse Ox O2 Delivery O2 Flow Rate FiO2 08/17/16 12:00 98.2 61 20 137/71 95 08/17/16 09:45 Nasal Cannula 2.00 40 08/17/16 08:00 98.1 59 20 138/67 97 08/17/16 04:07 98.1 63 18 174/86 95 08/17/16 01:30 Nasal Cannula 2.00 08/17/16 01:30 65 08/16/16 23:25 98.4 61 18 141/64 100 08/16/16 20:10 98.2 72 18 173/83 94 08/16/16 17:39 92 Nasal Cannula 2.00 -: 08/15/16 0641 08/13/16 0330 Physical Exam General Appearance: No Acute Distress, Comfortable, Anxious, Obese Throat Throat Exam: Oral Mucosa [place] & Moist Neck Neck Exam: Neck Supple Pulmonary Resp Exam: Rhonchi, Decreased Bases, Diminished Breath Sounds Cardiology CV Exam: Regular, Normal Sinus Rhythm Gastrointestinal/Abdomen GI Exam: Soft, Non-Tender, Distended Extremeties Extremities Exam: Pitting Edema, Dependent Edema Neurologic Neuro Exam: Alert, Awake, Oriented Assessment/Plan Problem List: (1) ESRD (end stage renal disease) on dialysis Plan: kidney failure due to advance diabetic nephropathy 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 HD Friday last HD Friday 4 L removed (2) Stage 4 chronic kidney disease Plan: Patient with advanced kidney disease and had the workup in May. 10 g of proteinuria Most likely has advance Diabetic Nephropathy. continue HD tomorrow (3) Hypoventilation associated with obesity syndrome Plan: critical care following (4) Nephrotic syndrome Plan: Protein to creatinine ratio above 10 10.52 (5) Acute exacerbation of CHF (congestive heart failure) Plan: This is likely due to chronic kidney disease and diastolic dysfunction (6) Diabetes Plan: Advance manifestations diabetic nephropathy, retinopathy and neuropathy (7) HTN (hypertension) Plan: Continue to monitor on PRN hydralazine Problem Qualifiers (1) Acute exacerbation of CHF (congestive heart failure): Qualified Code: I50.9 - Acute on chronic congestive heart failure, unspecified congestive heart failure type (2) Diabetes: (3) HTN (hypertension): Qualified Code: I10 - Essential hypertension Ebony Garcia MD Aug 17, 2016 16:25
--- NOTE | 2016-08-17 20:42 | HHI.PR ---
Subjective Remarks Patient seen this morning. Denies any chest pain or shortness of breath. No acute changes per nursing. Objective Vital Signs Date Time Temp Pulse Resp B/P Pulse Ox O2 Delivery O2 Flow Rate FiO2 08/17/16 16:00 98.3 59 24 133/67 95 08/17/16 12:00 98.2 61 20 137/71 95 08/17/16 09:45 Nasal Cannula 2.00 40 08/17/16 08:19 59 08/17/16 08:00 98.1 59 20 138/67 97 08/17/16 04:07 98.1 63 18 174/86 95 08/17/16 01:30 Nasal Cannula 2.00 08/17/16 01:30 65 08/16/16 23:25 98.4 61 18 141/64 100 I/O 08/16/16 08/16/16 08/16/16 08/17/16 08/17/16 08/17/16 07:00 15:00 23:00 07:00 15:00 23:00 Intake Total 100 ml 480 ml 720 ml 1320 ml Output Total 250 ml 700 ml 0 ml 25 ml Balance -150 ml -220 ml 720 ml 1295 ml Intake Oral 100 ml 480 ml 720 ml 1320 ml Output Urine Total 250 ml 700 ml 0 ml 25 ml # Bowel Movements 0 0 0 0 Result Diagram: 08/15/16 0641 08/13/16 0330 Objective Remarks GENERAL: Appears comfortable. Alert. SKIN: Warm and dry. HEAD: Normocephalic. EYES: No scleral icterus. No injection or drainage. NECK: Supple, trachea midline. No JVD. CARDIOVASCULAR: Regular rate and rhythm without murmurs, gallops, or rubs. RESPIRATORY: Breath sounds equal bilaterally. No accessory muscle use. GASTROINTESTINAL: Abdomen soft, non-tender, nondistended. MUSCULOSKELETAL: No cyanosis, or edema. BACK: Nontender without obvious deformity. No CVA tenderness. A/P Assessment and Plan =====08/17/16 -Add Levemir 5 units twice daily. -Await vascular surgery AV fistula. -Appreciate case management assistance. 50 Y/O female with a medical history significant for CHF, depression, HTN, dm, and ckd stage 5 with prolonged hospital stay secondary to recurrent intubation, status post cardiac arrest. Patient now improving on the medical surgical unit. //Acute respiratory failurenow resolved: -Likely a combination of renal failure, acute on chronic diastolic heart failure , pulmonary edema, possible COPD, HCAP with MRSA in the sputum. Patient has been intubated about 3 times during this hospitalization. - Appreciate pulmonology following. On prednisone. bipap per Pulmonology - Infectious disease following. s/p Rocephin and Zyvox. Antibiotics discontinued. Monitor patient off antibiotic. - Patient currently on nasal cannula, BiPAP at bedtime. Neurology following. Appreciate assistance. //Acute on chronic kidney disease V: Now on dialysis. ESRD -per nephrology will need long-term hemodialysis. -Appreciate nephrology following. Most likely advanced diabetic nephropathy. Status post Vas-Cath placement. Dialysis per nephrology. continue to f/u with BMP. -Tunneled vascular catheter least by IR on 08/16. - Vascular surgery planning for elective aVF during this hospitalization, appreciate consult. //Encephalopathy, multifactorial: -RESOLVED. //Secondary to multiple comorbid conditions above. Anoxic injury also possibility. Continue to follow. //CHF: Echocardiogram 05/21 revealed EF 50%. Mildly dilated ventricle. Diffuse hypokinesis. Echocardiogram 07/23 reveals EF 45-50%. No regional motion abnormality. POOL 59 mmHg. Mild TR. - Continue Coreg, lisinopril. Previously followed by cardiology. Previous elevated Troponin likely due to fluid overloaded state per Cards. previous stress test showing mild small lateral wall defect. -f/u cardiology as outpatient. //Severe deconditioning: Secondary to above comorbidities. Need to mobilize patient. PT following; good candidate for inpatient rehabilitation. //Hypertension: Resistant, difficult to control. On Coreg 25mg BID, hydralazine 100mg TID, lisinopril 20 daily, clonidine 0.2 mg every 8 hours Continue atorvastatin 80 mg daily's for dyslipidemia. Cont Nifedipine at 20 mg by mouth every 8 hours. Continue hydralazine IV as needed. -Continue to monitor blood pressure and adjust medications as necessary. //Diabetes mellitus, type II, uncontrolled: - Continue sliding scale insulin with Accu-Chek -3/4. Blood sugars elevated. Add Levemir 5 units twice daily. - Continue to monitor blood sugars //Anemia, of chronic disease: Currently on iron sulfate 325mg PO twice a day/home medication. Monitor CBC. -Continue to monitor as necessary, Transfuse for hemoglobin less than 7 //DVT prophylaxis: SCDs/Heparin Discharge Planning -Plan for SNF -Needs outpatient hemodialysis set up prior to SNF basement. Case management assistance appreciated. Osmin Green MD Aug 17, 2016 20:42
[2016-08-17] MEDS: ATORVASTATIN 80 MG TAB PO SCH (22:52)
[2016-08-17] MEDS: INSULIN DETEMIR 100 UNITS/ML VIAL SQ SCH (22:58)
[2016-08-18] VITALS (8 sets, daily range): BP systolic 143–173; BP diastolic 68–81; PULSE 57–65; RESP 18–21; TEMP 97.8–98.3; O2SAT 94–97
[2016-08-18] MEDS: CHLORHEXIDINE GLUCONATE 2 % 1 PACK (2 CLOTHS) TOP SCH (04:00)
[2016-08-18] MEDS: INSULIN NovoLIN REGULAR SUPPLEMENTAL SCALE SQ SCH ×4 (05:00→22:20)
[2016-08-18] MEDS: hydrALAZINE HCL 50 MG TAB PO SCH ×3 (05:54→22:23)
[2016-08-18] MEDS: cloNIDine HCL 0.1 MG TAB PO SCH ×3 (05:54→22:22)
[2016-08-18] MEDS: NIFEdipine 10 MG CAP PO SCH ×3 (05:54→22:22)
[2016-08-18] MEDS: CHLORHEXIDINE 0.12% (ORAL KIT) 15 ML CUP MT SCH ×2 (08:00→22:24)
[2016-08-18 08:59] LABS: HEMATOCRIT 27.9 % (35.0-46.0); MEAN CELL VOLUME 71.7 FL (80.0-100.0); MEAN CORPUSCULAR HEMOGLOBIN 22.2 PG (27.0-34.0); PLATELET COUNT 180 TH/MM3 (150-450); RED BLOOD COUNT 3.89 MIL/MM3 (4.00-5.30); RED CELL DISTRIBUTION WIDTH 18.7 % (11.6-17.2)
[2016-08-18] MEDS: SODIUM CHLORIDE 0.9% FLUSH 5 ML FLUSH IVF SCH ×3 (09:00→22:23)
[2016-08-18 09:05] LABS: REVIEW FLAG FINAL
[2016-08-18] MEDS: PANTOPRAZOLE SODIUM 40 MG VIAL IV SCH (12:13)
[2016-08-18] MEDS: MUPIROCIN 2% OINT 1 APPLIC/GM SYR EACH NARE SCH ×2 (12:13→22:23)
[2016-08-18] MEDS: FERROUS SULFATE 300 MG /5ML UDC PO SCH ×2 (12:15→22:24)
[2016-08-18] MEDS: CARVEDILOL 12.5 MG TAB PO SCH ×2 (12:15→22:21)
[2016-08-18] MEDS: ASPIRIN 81 MG CHEW TAB PO SCH (12:15)
[2016-08-18] MEDS: DOCUSATE SODIUM 100 MG CAP PO SCH ×2 (12:15→22:23)
[2016-08-18] MEDS: predniSONE 10 MG TAB PO SCH (12:15)
[2016-08-18] MEDS: GABAPENTIN 300 MG CAP PO SCH ×2 (12:16→22:21)
[2016-08-18] MEDS: LISINOPRIL 20 MG TAB PO SCH (12:16)
[2016-08-18] MEDS: SENNOSIDES 8.6 MG TAB PO SCH ×2 (12:16→22:24)
[2016-08-18] MEDS: HEPARIN SODIUM - SQ 10,000 UNITS/ML VIAL SQ SCH ×2 (12:16→22:22)
[2016-08-18] MEDS: INSULIN DETEMIR 100 UNITS/ML VIAL SQ SCH ×2 (12:17→22:22)
[2016-08-18] MEDS: NYSTATIN 100,000 UNIT/GM CREAM 15 GM TOPICAL SCH ×2 (12:17→22:25)
[2016-08-18] MEDS ORDERED: DOCUSATE SODIUM 50 MG/SENNA 8.6 MG TAB PO ONE (15:15)
[2016-08-18] MEDS ORDERED: MAGNESIUM HYDROXIDE SUSP 30 ML CUP PO ONE (15:15)
[2016-08-18] MEDS ORDERED: BISACODYL 10 MG SUPP RECTAL ONE (15:15)
--- NOTE | 2016-08-18 16:56 | HHI.NPPN ---
Subjective History of Present Illness 50 year old with CKD 4/5 Diabetes Nephrotic range proteinuria Additional Remarks Patient is alert, no complain. Review of Systems General Constitutional: Fatigue Cardiovascular Cardiac: Edema Objective Data Data 08/17/16 08/18/16 19:00 07:00 Intake Total 1320 ml 680 ml Output Total 25 ml 250 ml Balance 1295 ml 430 ml Intake Oral 1320 ml 680 ml Output Urine Total 25 ml 250 ml # Bowel Movements 0 0 Vital Signs Date Time Temp Pulse Resp B/P Pulse Ox O2 Delivery O2 Flow Rate FiO2 08/18/16 16:19 98.2 63 20 152/71 96 08/18/16 12:27 97 Nasal Cannula 2.00 08/18/16 12:05 98.0 59 20 143/68 97 08/18/16 08:29 97.8 59 21 148/70 96 08/18/16 04:00 97.9 57 18 166/79 96 08/18/16 04:00 156/70 Automatic Cuff 08/18/16 02:00 155/75 08/18/16 00:00 97.9 64 18 172/78 95 08/17/16 21:45 Nasal Cannula 2.00 08/17/16 20:00 61 08/17/16 20:00 97.7 62 18 169/94 97 -: 08/18/16 0705 Physical Exam General Appearance: No Acute Distress, Comfortable, Anxious, Obese Throat Throat Exam: Oral Mucosa [place] & Moist Neck Neck Exam: Neck Supple Pulmonary Resp Exam: Rhonchi, Decreased Bases, Diminished Breath Sounds Cardiology CV Exam: Regular, Normal Sinus Rhythm Gastrointestinal/Abdomen GI Exam: Soft, Non-Tender, Distended Extremeties Extremities Exam: Pitting Edema, Dependent Edema Neurologic Neuro Exam: Alert, Awake, Oriented Assessment/Plan Problem List: (1) ESRD (end stage renal disease) on dialysis Plan: kidney failure due to advance diabetic nephropathy 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 HD Friday Dr. John to follow (2) Stage 4 chronic kidney disease Plan: Patient with advanced kidney disease and had the workup in May. 10 g of proteinuria Most likely has advance Diabetic Nephropathy. continue HD tomorrow (3) Hypoventilation associated with obesity syndrome Plan: critical care following (4) Nephrotic syndrome Plan: Protein to creatinine ratio above 10 10.52 (5) Acute exacerbation of CHF (congestive heart failure) Plan: This is likely due to chronic kidney disease and diastolic dysfunction (6) Diabetes Plan: Advance manifestations diabetic nephropathy, retinopathy and neuropathy (7) HTN (hypertension) Plan: Continue to monitor on PRN hydralazine Problem Qualifiers (1) Acute exacerbation of CHF (congestive heart failure): Qualified Code: I50.9 - Acute on chronic congestive heart failure, unspecified congestive heart failure type (2) Diabetes: (3) HTN (hypertension): Qualified Code: I10 - Essential hypertension Ebony Garcia MD Aug 18, 2016 16:56
[2016-08-18] MEDS: ATORVASTATIN 80 MG TAB PO SCH (22:24)
--- NOTE | 2016-08-18 23:41 | HHI.PR ---
Subjective Remarks no acute changes. Patient denies any pain or shortness of breath. Does report constipation, with no bowel movement recorded during this admission. Laxative orders. Discussed with nurse Objective Vital Signs Date Time Temp Pulse Resp B/P Pulse Ox O2 Delivery O2 Flow Rate FiO2 08/18/16 20:47 96 Nasal Cannula 3.00 08/18/16 20:00 98.3 65 18 173/81 94 08/18/16 16:19 98.2 63 20 152/71 96 08/18/16 12:27 97 Nasal Cannula 2.00 08/18/16 12:05 98.0 59 20 143/68 97 08/18/16 08:29 97.8 59 21 148/70 96 08/18/16 04:00 97.9 57 18 166/79 96 08/18/16 04:00 156/70 Automatic Cuff 08/18/16 02:00 155/75 08/18/16 00:00 97.9 64 18 172/78 95 I/O 08/17/16 08/17/16 08/17/16 08/18/16 08/18/16 08/18/16 07:00 15:00 23:00 07:00 15:00 23:00 Intake Total 720 ml 1320 ml 480 ml 200 ml 480 ml 0 ml Output Total 0 ml 25 ml 0 ml 250 ml 1600 ml Balance 720 ml 1295 ml 480 ml -50 ml 480 ml -1600 ml Intake Oral 720 ml 1320 ml 480 ml 200 ml 480 ml IV Total 0 ml Output Urine Total 0 ml 25 ml 0 ml 250 ml 1600 ml # Bowel Movements 0 0 0 0 0 Result Diagram: 08/18/16 0705 Objective Remarks GENERAL: Appears comfortable. Alert.oriented 3. SKIN: Warm and dry. HEAD: Normocephalic. EYES: No scleral icterus. No injection or drainage. NECK: Supple, trachea midline. No JVD. CARDIOVASCULAR: Regular rate and rhythm without murmurs, gallops, or rubs. RESPIRATORY: Breath sounds equal bilaterally. No accessory muscle use. GASTROINTESTINAL: Abdomen soft, non-tender, nondistended. MUSCULOSKELETAL: No cyanosis, or edema. BACK: Nontender without obvious deformity. No CVA tenderness. A/P Assessment and Plan =====08/18/16 glucose still elevated.Increase Levemir dose. Await vascular surgery AV fistula -Can likely go to SNF if outpatient hemodialysis can be set up. 50 Y/O female with a medical history significant for CHF, depression, HTN, dm, and ckd stage 5 with prolonged hospital stay secondary to recurrent intubation, status post cardiac arrest. Patient now improving on the medical surgical unit. //Acute respiratory failurenow resolved: -Likely a combination of renal failure, acute on chronic diastolic heart failure , pulmonary edema, possible COPD, HCAP with MRSA in the sputum. Patient has been intubated about 3 times during this hospitalization. - Appreciate pulmonology following. On prednisone. bipap per Pulmonology - Infectious disease following. s/p Rocephin and Zyvox. Antibiotics discontinued. Monitor patient off antibiotic. - Patient currently on nasal cannula, BiPAP at bedtime. Neurology following. Appreciate assistance. //Acute on chronic kidney disease V: Now on dialysis. ESRD -per nephrology will need long-term hemodialysis. -Appreciate nephrology following. Most likely advanced diabetic nephropathy. Status post Vas-Cath placement. Dialysis per nephrology. continue to f/u with BMP. -Tunneled vascular catheter least by IR on 08/16. - Vascular surgery planning for elective aVF during this hospitalization, appreciate consult. //Encephalopathy, multifactorial: -RESOLVED. //Secondary to multiple comorbid conditions above. Anoxic injury also possibility. Continue to follow. //CHF: Echocardiogram 05/21 revealed EF 50%. Mildly dilated ventricle. Diffuse hypokinesis. Echocardiogram 07/23 reveals EF 45-50%. No regional motion abnormality. POOL 59 mmHg. Mild TR. - Continue Coreg, lisinopril. Previously followed by cardiology. Previous elevated Troponin likely due to fluid overloaded state per Cards. previous stress test showing mild small lateral wall defect. -f/u cardiology as outpatient. //Severe deconditioning: Secondary to above comorbidities. Need to mobilize patient. PT following; good candidate for inpatient rehabilitation. //Hypertension: Resistant, difficult to control. On Coreg 25mg BID, hydralazine 100mg TID, lisinopril 20 daily, clonidine 0.2 mg every 8 hours Continue atorvastatin 80 mg daily's for dyslipidemia. Cont Nifedipine at 20 mg by mouth every 8 hours. Continue hydralazine IV as needed. -Continue to monitor blood pressure and adjust medications as necessary. //Diabetes mellitus, type II, uncontrolled: - Continue sliding scale insulin with Accu-Chek -08/17. Blood sugars elevated. Add Levemir 5 units twice daily. -08/17. Blood sugars again elevated. Increase Levemir to 8 units twice daily. - Continue to monitor blood sugars //Anemia, of chronic disease: Currently on iron sulfate 325mg PO twice a day/home medication. Monitor CBC. -Continue to monitor as necessary, Transfuse for hemoglobin less than 7 //DVT prophylaxis: SCDs/Heparin Discharge Planning -Plan for SNF -Needs outpatient hemodialysis set up prior to SNF basement. Case management assistance appreciated. Osmin Green MD Aug 18, 2016 23:41
[2016-08-19] VITALS (10 sets, daily range): BP systolic 142–181; BP diastolic 69–91; PULSE 58–76; RESP 16–22; TEMP 97.8–98.6; O2SAT 92–97
[2016-08-19] MEDS: CHLORHEXIDINE GLUCONATE 2 % 1 PACK (2 CLOTHS) TOP SCH (04:00)
[2016-08-19] MEDS: INSULIN NovoLIN REGULAR SUPPLEMENTAL SCALE SQ SCH ×4 (06:08→22:42)
[2016-08-19] MEDS: hydrALAZINE HCL 50 MG TAB PO SCH ×3 (06:09→21:52)
[2016-08-19] MEDS: NIFEdipine 10 MG CAP PO SCH ×3 (06:09→21:52)
[2016-08-19] MEDS: cloNIDine HCL 0.1 MG TAB PO SCH ×3 (06:09→21:53)
[2016-08-19] MEDS: CHLORHEXIDINE 0.12% (ORAL KIT) 15 ML CUP MT SCH ×2 (08:00→20:00)
[2016-08-19] MEDS: PANTOPRAZOLE SODIUM 40 MG VIAL IV SCH ×2 (09:00→09:19)
[2016-08-19] MEDS: SODIUM CHLORIDE 0.9% FLUSH 5 ML FLUSH IVF SCH ×3 (09:00→21:54)
[2016-08-19] MEDS: DOCUSATE SODIUM 100 MG CAP PO SCH ×2 (09:18→21:53)
[2016-08-19] MEDS: ASPIRIN 81 MG CHEW TAB PO SCH (09:18)
[2016-08-19] MEDS: predniSONE 10 MG TAB PO SCH (09:18)
[2016-08-19] MEDS: GABAPENTIN 300 MG CAP PO SCH ×2 (09:18→21:53)
[2016-08-19] MEDS: INSULIN DETEMIR 100 UNITS/ML VIAL SQ SCH ×2 (09:18→21:53)
[2016-08-19] MEDS: FERROUS SULFATE 300 MG /5ML UDC PO SCH ×2 (09:18→21:52)
[2016-08-19] MEDS: LISINOPRIL 20 MG TAB PO SCH (09:18)
[2016-08-19] MEDS: SENNOSIDES 8.6 MG TAB PO SCH ×2 (09:19→21:53)
[2016-08-19] MEDS: CARVEDILOL 12.5 MG TAB PO SCH ×2 (09:19→21:53)
[2016-08-19] MEDS: HEPARIN SODIUM - SQ 10,000 UNITS/ML VIAL SQ SCH ×2 (09:20→21:52)
[2016-08-19] MEDS: NYSTATIN 100,000 UNIT/GM CREAM 15 GM TOPICAL SCH ×2 (09:21→21:00)
[2016-08-19] MEDS: MUPIROCIN 2% OINT 1 APPLIC/GM SYR EACH NARE SCH ×2 (10:09→21:00)
--- NOTE | 2016-08-19 10:12 | PD.VS.PN ---
Subjective Subjective/Hospital Course Pt reported that her breathing has improved and that she is getting stronger Pt [place] HD presently via R chest catheter Pt is RIGHT handed with no prior history of access attempts Objective Vitals/I&O Date Time Temp Pulse Resp B/P Pulse Ox O2 Delivery O2 Flow Rate FiO2 08/19/16 04:51 98.5 62 16 171/77 92 08/19/16 03:08 Nasal Cannula 2.00 08/19/16 00:00 98.6 60 18 150/69 93 08/18/16 20:47 96 Nasal Cannula 3.00 08/18/16 20:00 98.3 65 18 173/81 94 08/18/16 20:00 65 08/18/16 16:19 98.2 63 20 152/71 96 08/18/16 12:27 97 Nasal Cannula 2.00 08/18/16 12:05 98.0 59 20 143/68 97 08/19/16 08/19/16 08/19/16 07:00 15:00 23:00 Output Total 300 ml Balance -300 ml Physical Exam GENERAL: A&OX3, NAD, GCS15 SKIN: Warm and dry throughout Bilat Palpable radial pulses noted with equal ground products director strength Laboratory Allergies Coded Allergies Type Severity Reaction Last Updated Verified Lyrica Allergy Severe Anaphylaxis 07/15/16 Yes *MDRO Multi-Drug Resistant Organism Adverse Reaction Unknown 07/24/16 Yes 08/17////// 06:00 18:00 06:00 18:00 06:00 18:00 Intake Total 720 ml 1320 ml 680 ml 480 ml 480 ml Output Total 250 ml 25 ml 100 ml 1750 ml 950 ml Balance 470 ml 1295 ml 580 ml -1270 ml -470 ml Intake Oral 720 ml 1320 ml 680 ml 480 ml 480 ml IV Total 0 ml Output Urine Total 250 ml 25 ml 100 ml 1750 ml 950 ml # Bowel Movements 0 0 0 0 Laboratory Tests Test 08/18/16 07:05 White Blood Count 6.0 TH/MM3 Red Blood Count 3.89 MIL/MM3 Hemoglobin 8.7 GM/DL Hematocrit 27.9 % Mean Corpuscular Volume 71.7 FL Mean Corpuscular Hemoglobin 22.2 PG Mean Corpuscular Hemoglobin 31.0 % Concent Red Cell Distribution Width 18.7 % Platelet Count 180 TH/MM3 Mean Platelet Volume 9.7 FL Procedure Category Date Status Time Vital Signs (Adult) ITALO 08/16/16 Complete 10:35 ^ Observe For ITALO 08/16/16 In Process 10:35 Activity Bed Rest ITALO 08/16/16 In Process 10:35 Ice / Cold Pack ITALO 08/16/16 Complete 10:35 Sodium Chloride 0.9% MED 08/16/16 In Process Flush (Ns Flush) 10:45 Heparin Inj (Heparin MED 08/16/16 In Process Inj) 10:45 Flumazenil Inj MED 08/16/16 Complete (Romazicon Inj) 10:42 Nifedipine (Procardia) MED 08/16/16 In Process 21:00 Diet 1800 Ada Cons DIET 08/16/16 Transmitted Carb Dinner Physician Name Changes ADMITTING 08/16/16 Transmitted Insulin Detemir Inj MED 08/17/16 Complete (Levemir Inj) 21:00 Cbc No Diff, Includes LAB 08/18/16 Complete Plts 06:00 Docusate Sodium-Senna MED 08/18/16 Complete ([place]-Colace) 15:15 Magnesium Hydroxide MED 08/18/16 Complete Liq (Milk Of Magnesi 15:15 Bisacodyl Supp MED 08/18/16 Complete (Dulcolax Supp) 15:15 Insulin Detemir Inj MED 08/19/16 In Process (Levemir Inj) 09:00 Add Patient To ADMITTING 08/19/16 Transmitted Providers List Consult Vascular CONS 08/19/16 Transmitted Access Team Vital Signs Date Time Temp Pulse Resp B/P Pulse Ox O2 Delivery O2 Flow Rate FiO2 08/19/16 04:51 98.5 62 16 171/77 92 08/19/16 03:08 Nasal Cannula 2.00 08/19/16 00:00 98.6 60 18 150/69 93 08/18/16 20:47 96 Nasal Cannula 3.00 08/18/16 20:00 98.3 65 18 173/81 94 08/18/16 20:00 65 08/18/16 16:19 98.2 63 20 152/71 96 08/18/16 12:27 97 Nasal Cannula 2.00 08/18/16 12:05 98.0 59 20 143/68 97 08/18/16 08:29 97.8 59 21 148/70 96 08/18/16 04:00 97.9 57 18 166/79 96 08/18/16 04:00 156/70 Automatic Cuff 08/18/16 02:00 155/75 08/18/16 00:00 97.9 64 18 172/78 95 08/17/16 21:45 Nasal Cannula 2.00 08/17/16 20:00 61 08/17/16 20:00 97.7 62 18 169/94 97 08/17/16 16:00 98.3 59 24 133/67 95 08/17/16 12:00 98.2 61 20 137/71 95 08/17/16 09:45 Nasal Cannula 2.00 40 08/17/16 08:19 59 08/17/16 08:00 98.1 59 20 138/67 97 08/17/16 04:07 98.1 63 18 174/86 95 08/17/16 01:30 Nasal Cannula 2.00 08/17/16 01:30 65 08/16/16 23:25 98.4 61 18 141/64 100 08/16/16 20:10 98.2 72 18 173/83 94 08/16/16 17:39 92 Nasal Cannula 2.00 08/16/16 16:00 98.2 67 20 158/74 94 08/16/16 10:21 92 Nasal Cannula 2.00 Assessment and Plan Assessment: (1) Stage 4 chronic kidney disease Status: Acute Plan Discussed surgical intervention AVF with patient Pt agrees to follow-up in our OPC on 09/20/16 with FM to schedule L BC AVF Informed pt to Save LEFT arm for LEFT BRACHIOCEPHALIC No B/P or lab draws to left arm Carmen SEGUNDO [facility] Carmen Carpio Aug 19, 2016 10:12
[2016-08-19] MEDS: HEPARIN SODIUM - IV 10,000 UNITS/10 ML VIAL PRN (15:40)
[2016-08-19] MEDS: EPOETIN ALFA 10,000 UNITS/ML VIAL IV PRN (15:40)
[2016-08-19] MEDS: GENTAMICIN SULFATE (DIALYSIS USE ONLY) 20 MG/2 ML VIAL IV PRN (15:40)
--- NOTE | 2016-08-19 17:50 | HHI.NPPN ---
Subjective History of Present Illness 50 year old with CKD 4/5 Diabetes Nephrotic range proteinuria Additional Remarks Patient is alert, breathing is better. Review of Systems General Constitutional: Fatigue Cardiovascular Cardiac: Edema Objective Data Data 08/18/16 08/19/16 19:00 07:00 Intake Total 480 ml 480 ml Output Total 1600 ml 950 ml Balance -1120 ml -470 ml Intake Oral 480 ml 480 ml IV Total 0 ml Output Urine Total 1600 ml 950 ml # Bowel Movements 0 Vital Signs Date Time Temp Pulse Resp B/P Pulse Ox O2 Delivery O2 Flow Rate FiO2 08/19/16 13:00 98.0 60 22 142/74 96 08/19/16 08:35 Nasal Cannula 2.00 08/19/16 08:04 98.0 58 22 145/75 95 08/19/16 08:00 58 08/19/16 04:51 98.5 62 16 171/77 92 08/19/16 03:08 Nasal Cannula 2.00 08/19/16 00:00 98.6 60 18 150/69 93 08/18/16 20:47 96 Nasal Cannula 3.00 08/18/16 20:00 98.3 65 18 173/81 94 08/18/16 20:00 65 -: 08/18/16 0705 Physical Exam General Appearance: No Acute Distress, Comfortable, Anxious, Obese Throat Throat Exam: Oral Mucosa [place] & Moist Neck Neck Exam: Neck Supple Pulmonary Resp Exam: Rhonchi, Decreased Bases, Diminished Breath Sounds Cardiology CV Exam: Regular, Normal Sinus Rhythm Gastrointestinal/Abdomen GI Exam: Soft, Non-Tender, Distended Extremeties Extremities Exam: Pitting Edema, Dependent Edema Neurologic Neuro Exam: Alert, Awake, Oriented Assessment/Plan Problem List: (1) ESRD (end stage renal disease) on dialysis Plan: kidney failure due to advance diabetic nephropathy need terminal carman plans Has PermCath and will need AVF Seen by vascular surgery. 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 HD done today, tolerated well. (2) Stage 4 chronic kidney disease Plan: Patient with advanced kidney disease and had the workup in May. 10 g of proteinuria Most likely has advance Diabetic Nephropathy. continue HD tomorrow (3) Hypoventilation associated with obesity syndrome Plan: critical care following (4) Nephrotic syndrome Plan: Protein to creatinine ratio above 10 10.52 (5) Acute exacerbation of CHF (congestive heart failure) Plan: This is likely due to chronic kidney disease and diastolic dysfunction (6) Diabetes Plan: Advance manifestations diabetic nephropathy, retinopathy and neuropathy (7) HTN (hypertension) Plan: Continue to monitor on PRN hydralazine Problem Qualifiers (1) Acute exacerbation of CHF (congestive heart failure): Qualified Code: I50.9 - Acute on chronic congestive heart failure, unspecified congestive heart failure type (2) Diabetes: (3) HTN (hypertension): Qualified Code: I10 - Essential hypertension Mia Medley MD Aug 19, 2016 17:50
--- NOTE | 2016-08-19 18:12 | HHI.PR ---
Subjective Remarks Stable and has no complaints. On O2 3 L N/C. No fever.Off CPAP now. Objective Vital Signs Date Time Temp Pulse Resp B/P Pulse Ox O2 Delivery O2 Flow Rate FiO2 08/19/16 13:00 98.0 60 22 142/74 96 08/19/16 08:35 Nasal Cannula 2.00 08/19/16 08:04 98.0 58 22 145/75 95 08/19/16 08:00 58 08/19/16 04:51 98.5 62 16 171/77 92 08/19/16 03:08 Nasal Cannula 2.00 08/19/16 00:00 98.6 60 18 150/69 93 08/18/16 20:47 96 Nasal Cannula 3.00 08/18/16 20:00 98.3 65 18 173/81 94 08/18/16 20:00 65 I/O 08/18/16 08/18/16 08/18/16 08/19/16 08/19/16 08/19/16 07:00 15:00 23:00 07:00 15:00 23:00 Intake Total 200 ml 480 ml 480 ml Output Total 250 ml 2250 ml 300 ml 4000 ml Balance -50 ml 480 ml -1770 ml -300 ml -4000 ml Intake Oral 200 ml 480 ml 480 ml IV Total 0 ml Output Urine Total 250 ml 2250 ml 300 ml Hemodialysis 4000 ml # Bowel Movements 0 0 Result Diagram: 08/18/16 07 Objective Remarks General: This is a very obese middle-aged lady who is alert . HEENT: Head normocephalic. Pupils are reactive. Tongue is moist. Throat is clear. Nasal mucosa clear Neck: Supple.No JVD. No lymphadenopathy. Trachea midline. Chest: Distant breath sounds and few crackles at the lung bases. Heart: The heart sounds are regular. S1 and S2. No definite murmur. No S3. Abdomen: Soft, protuberant. No mass, no organomegaly or tenderness. Bowel sounds are active. Extremities: Decreased peripheral pulses. No leg edema. Neurologic: responsive. Reflexes 1 +. No deficits. Rectal: Exam deferred. Skin: dry and warm. Assessment and Plan Assessment and Plan . IMPRESSION 1. CHF with acute exacerbation. 2. Possible obstructive sleep apnea syndrome. 3. Hypertension. 4. Elevated troponin. 5. Diabetes mellitus type 2. 6. S/P respiratory Arrest. Plan : 1. Cont O2 N/C 2 L. 2. D/C Bipap at HS 3. Nebs qid , duoneb. 4. Transfer to rehab soon 5.taper prednisone to 5 mg daily and stop. 6. IS at bedside qid. 7. Dialysis every other day. 8. PT evaluation for activity. Sheela Lau MD Aug 19, 2016 18:12
[2016-08-19] MEDS: ATORVASTATIN 80 MG TAB PO SCH (21:52)
--- NOTE | 2016-08-19 23:15 | HHI.PR ---
Subjective Remarks Patient seen today after dialysis. Patient says she feels well. Denies any chest pain or shortness of breath. Objective Vital Signs Date Time Temp Pulse Resp B/P Pulse Ox O2 Delivery O2 Flow Rate FiO2 08/19/16 20:14 94 Nasal Cannula 3.00 08/19/16 20:00 98.4 76 18 181/86 96 08/19/16 16:03 97.9 67 22 160/78 97 08/19/16 13:00 98.0 60 22 142/74 96 08/19/16 08:35 Nasal Cannula 2.00 08/19/16 08:04 98.0 58 22 145/75 95 08/19/16 08:00 58 08/19/16 04:51 98.5 62 16 171/77 92 08/19/16 03:08 Nasal Cannula 2.00 08/19/16 00:00 98.6 60 18 150/69 93 I/O 08/18/16 08/18/16 08/18/16 08/19/16 08/19/16 08/19/16 07:00 15:00 23:00 07:00 15:00 23:00 Intake Total 200 ml 480 ml 480 ml 480 ml 480 ml Output Total 250 ml 2250 ml 300 ml 600 ml 4200 ml Balance -50 ml 480 ml -1770 ml -300 ml -120 ml -3720 ml Intake Oral 200 ml 480 ml 480 ml 480 ml 480 ml IV Total 0 ml Output Urine Total 250 ml 2250 ml 300 ml 600 ml 200 ml Hemodialysis 4000 ml # Bowel Movements 0 0 0 1 Result Diagram: 08/18/16 07 Objective Remarks GENERAL: Appears comfortable. Alert.oriented 3.exam unchanged from yesterday. SKIN: Warm and dry. HEAD: Normocephalic. EYES: No scleral icterus. No injection or drainage. NECK: Supple, trachea midline. No JVD. CARDIOVASCULAR: Regular rate and rhythm without murmurs, gallops, or rubs. RESPIRATORY: Breath sounds equal bilaterally. No accessory muscle use. GASTROINTESTINAL: Abdomen soft, non-tender, nondistended. MUSCULOSKELETAL: No cyanosis, or edema. BACK: Nontender without obvious deformity. No CVA tenderness. A/P Assessment and Plan =====08/18/16 -Await AV fistula evaluation Nephrology needs to arrange outpatient hemodialysis. Possible rehabilitation placement once the above are accomplished. -Patient is already off BiPAP. -Glucose still elevatedincrease Levemir again. 50 Y/O female with a medical history significant for CHF, depression, HTN, dm, and ckd stage 5 with prolonged hospital stay secondary to recurrent intubation, status post cardiac arrest. Patient now improving on the medical surgical unit. //Acute respiratory failurenow resolved: -Likely a combination of renal failure, acute on chronic diastolic heart failure , pulmonary edema, possible COPD, HCAP with MRSA in the sputum. Patient has been intubated about 3 times during this hospitalization. - Appreciate pulmonology following. On prednisone. bipap per Pulmonology - Infectious disease following. s/p Rocephin and Zyvox. Antibiotics discontinued. Monitor patient off antibiotic. - Patient currently on nasal cannula, BiPAP at bedtime. Neurology following. Appreciate assistance. //Acute on chronic kidney disease V: Now on dialysis. ESRD -per nephrology will need long-term hemodialysis. -Appreciate nephrology following. Most likely advanced diabetic nephropathy. Status post Vas-Cath placement. Dialysis per nephrology. continue to f/u with BMP. -Tunneled vascular catheter least by IR on 08/16. - Vascular surgery planning for elective aVF during this hospitalization, appreciate consult. //Encephalopathy, multifactorial: -RESOLVED. //Secondary to multiple comorbid conditions above. Anoxic injury also possibility. Continue to follow. //CHF: Echocardiogram 05/21 revealed EF 50%. Mildly dilated ventricle. Diffuse hypokinesis. Echocardiogram 07/23 reveals EF 45-50%. No regional motion abnormality. POOL 59 mmHg. Mild TR. - Continue Coreg, lisinopril. Previously followed by cardiology. Previous elevated Troponin likely due to fluid overloaded state per Cards. previous stress test showing mild small lateral wall defect. -f/u cardiology as outpatient. //Severe deconditioning: Secondary to above comorbidities. Need to mobilize patient. PT following; good candidate for inpatient rehabilitation. //Hypertension: Resistant, difficult to control. On Coreg 25mg BID, hydralazine 100mg TID, lisinopril 20 daily, clonidine 0.2 mg every 8 hours Continue atorvastatin 80 mg daily's for dyslipidemia. Cont Nifedipine at 20 mg by mouth every 8 hours. Continue hydralazine IV as needed. -Continue to monitor blood pressure and adjust medications as necessary. //Diabetes mellitus, type II, uncontrolled: - Continue sliding scale insulin with Accu-Chek -08/17. Blood sugars elevated. Add Levemir 5 units twice daily. -08/18. Blood sugars again elevated. Increase Levemir to 8 units twice daily. -08/19. Blood sugars elevated. Increase Levemir to 10 units twice daily. - Continue to monitor blood sugars //Anemia, of chronic disease: Currently on iron sulfate 325mg PO twice a day/home medication. Monitor CBC. -Continue to monitor as necessary, Transfuse for hemoglobin less than 7 //DVT prophylaxis: SCDs/Heparin Discharge Planning -Plan for SNF -Needs outpatient hemodialysis set up prior to SNF placement Undergoing AV fistula evaluation. Case management assistance appreciated. Osmin Green MD Aug 19, 2016 23:15
[2016-08-20] VITALS (11 sets, daily range): BP systolic 152–175; BP diastolic 68–89; PULSE 62–65; RESP 16–22; TEMP 97.9–98.6; O2SAT 94–97
[2016-08-20] MEDS: CHLORHEXIDINE GLUCONATE 2 % 1 PACK (2 CLOTHS) TOP SCH (03:48)
[2016-08-20] MEDS: INSULIN NovoLIN REGULAR SUPPLEMENTAL SCALE SQ SCH ×4 (04:55→22:09)
[2016-08-20] MEDS: cloNIDine HCL 0.1 MG TAB PO SCH ×3 (04:56→22:08)
[2016-08-20] MEDS: hydrALAZINE HCL 50 MG TAB PO SCH ×3 (04:56→22:07)
[2016-08-20] MEDS: NIFEdipine 10 MG CAP PO SCH ×3 (04:57→22:08)
[2016-08-20] MEDS: CHLORHEXIDINE 0.12% (ORAL KIT) 15 ML CUP MT SCH ×2 (08:00→20:00)
[2016-08-20] MEDS: SODIUM CHLORIDE 0.9% FLUSH 5 ML FLUSH IVF SCH ×3 (09:00→22:10)
[2016-08-20] MEDS: FERROUS SULFATE 300 MG /5ML UDC PO SCH ×2 (09:25→22:08)
[2016-08-20] MEDS: MUPIROCIN 2% OINT 1 APPLIC/GM SYR EACH NARE SCH ×2 (09:25→21:00)
[2016-08-20] MEDS: GABAPENTIN 300 MG CAP PO SCH ×2 (09:25→22:09)
[2016-08-20] MEDS: LISINOPRIL 20 MG TAB PO SCH (09:25)
[2016-08-20] MEDS: CARVEDILOL 12.5 MG TAB PO SCH ×2 (09:26→22:07)
[2016-08-20] MEDS: SENNOSIDES 8.6 MG TAB PO SCH ×2 (09:26→22:08)
[2016-08-20] MEDS: DOCUSATE SODIUM 100 MG CAP PO SCH ×2 (09:26→22:10)
[2016-08-20] MEDS: predniSONE 5 MG TAB PO SCH (09:26)
[2016-08-20] MEDS: HEPARIN SODIUM - SQ 10,000 UNITS/ML VIAL SQ SCH ×2 (09:28→22:09)
[2016-08-20] MEDS: PANTOPRAZOLE SODIUM 40 MG VIAL IV SCH (09:28)
[2016-08-20] MEDS: INSULIN DETEMIR 100 UNITS/ML VIAL SQ SCH ×2 (09:33→22:08)
[2016-08-20] MEDS: NYSTATIN 100,000 UNIT/GM CREAM 15 GM TOPICAL SCH ×2 (09:33→21:00)
[2016-08-20] MEDS: ASPIRIN 81 MG CHEW TAB PO SCH (09:38)
[2016-08-20] MEDS ORDERED: LISI-515 PO (10:33)
[2016-08-20] MEDS ORDERED: CLON.1 PO ×2 (10:33)
[2016-08-20] MEDS ORDERED: HYDR50TA15 PO (10:33)
[2016-08-20] MEDS ORDERED: GABA300C5 PO (10:33)
[2016-08-20] MEDS ORDERED: PANT40TA3 PO (10:33)
[2016-08-20] MEDS ORDERED: SENN8.6T15 PO (10:33)
[2016-08-20] MEDS ORDERED: LEVEMIR SQ (10:33)
[2016-08-20] MEDS ORDERED: NYST15T TOPICAL (10:33)
[2016-08-20] MEDS ORDERED: DOCU1CAP39 PO (10:33)
[2016-08-20] MEDS ORDERED: NOVORP2 SQ (10:33)
[2016-08-20] MEDS ORDERED: NIFE10 PO (10:33)
--- NOTE | 2016-08-20 10:38 | HHI.NPPN ---
Subjective History of Present Illness 50 year old with CKD 4/5 Diabetes Nephrotic range proteinuria Additional Remarks Patient is alert, breathing is better, with nasal cannula, not in distress. Review of Systems General Constitutional: Fatigue Cardiovascular Cardiac: Edema Objective Data Data 08/19/16 08/20/16 19:00 07:00 Intake Total 480 ml 722 ml Output Total 4600 ml 1300 ml Balance -4120 ml -578 ml Intake Oral 480 ml 720 ml IV Total 2 ml Output Urine Total 600 ml 1300 ml Hemodialysis 4000 ml # Bowel Movements 0 1 Vital Signs Date Time Temp Pulse Resp B/P Pulse Ox O2 Delivery O2 Flow Rate FiO2 08/20/16 08:04 98.6 63 20 159/76 96 08/20/16 04:34 97.9 65 18 175/79 96 08/20/16 03:40 Nasal Cannula 2.00 08/19/16 23:49 97.8 69 18 163/91 96 08/19/16 20:14 94 Nasal Cannula 3.00 08/19/16 20:02 76 08/19/16 20:00 98.4 76 18 181/86 96 08/19/16 16:03 97.9 67 22 160/78 97 08/19/16 13:00 98.0 60 22 142/74 96 -: 08/18/16 0705 Physical Exam General Appearance: No Acute Distress, Comfortable, Anxious, Obese Throat Throat Exam: Oral Mucosa [place] & Moist Neck Neck Exam: Neck Supple Pulmonary Resp Exam: Rhonchi, Decreased Bases, Diminished Breath Sounds Cardiology CV Exam: Regular, Normal Sinus Rhythm Gastrointestinal/Abdomen GI Exam: Soft, Non-Tender, Distended Extremeties Extremities Exam: Pitting Edema, Dependent Edema Neurologic Neuro Exam: Alert, Awake, Oriented Assessment/Plan Problem List: (1) ESRD (end stage renal disease) on dialysis Plan: kidney failure due to advance diabetic nephropathy need correction plans Has PermCath and will need AVF Seen by vascular surgery. Air Breaker Operator notes seen, possibly to go to [place]. HD done yesterday. Vascular follow up noted. (2) Stage 4 chronic kidney disease Plan: Patient with advanced kidney disease and had the workup in May. 10 g of proteinuria Most likely has advance Diabetic Nephropathy. continue HD tomorrow (3) Hypoventilation associated with obesity syndrome Plan: critical care following (4) Nephrotic syndrome Plan: Protein to creatinine ratio above 10 10.52 (5) Acute exacerbation of CHF (congestive heart failure) Plan: This is likely due to chronic kidney disease and diastolic dysfunction (6) Diabetes Plan: Advance manifestations diabetic nephropathy, retinopathy and neuropathy (7) HTN (hypertension) Plan: Continue to monitor on PRN hydralazine Problem Qualifiers (1) Acute exacerbation of CHF (congestive heart failure): Qualified Code: I50.9 - Acute on chronic congestive heart failure, unspecified congestive heart failure type (2) Diabetes: (3) HTN (hypertension): Qualified Code: I10 - Essential hypertension Mia Medley MD Aug 20, 2016 10:38
--- NOTE | 2016-08-20 12:39 | PD.VS.PN ---
Subjective Subjective/Hospital Course Patient without complaints. Objective Vitals/I&O Date Time Temp Pulse Resp B/P Pulse Ox O2 Delivery O2 Flow Rate FiO2 08/20/16 10:15 95 Nasal Cannula 3.00 08/20/16 08:20 Nasal Cannula 2.00 08/20/16 08:04 98.6 63 20 159/76 96 08/20/16 07:45 63 08/20/16 04:34 97.9 65 18 175/79 96 08/20/16 03:40 Nasal Cannula 2.00 08/19/16 23:49 97.8 69 18 163/91 96 08/19/16 20:14 94 Nasal Cannula 3.00 08/19/16 20:02 76 08/19/16 20:00 98.4 76 18 181/86 96 08/19/16 16:03 97.9 67 22 160/78 97 08/19/16 13:00 98.0 60 22 142/74 96 08/20/16 08/20/16 08/20/16 07:00 15:00 23:00 Intake Total 240 ml Output Total 1100 ml Balance -860 ml Assessment and Plan Assessment: (1) Stage 4 chronic kidney disease Status: Acute Plan Discussed surgical intervention (AVF) with patient Patient still on oxygen and appears debilitated. Has been downgraded from ICU and has discharge planning for [facility]. Will follow up on August 28 in surgery clinic to schedule L BC AVF Informed pt to Save LEFT arm for LEFT BRACHIOCEPHALIC. I discussed the plan with Dr. Medley to allow more time for rehabilitation before surgical creation of AVF. Adam Zamorano D.O., FACS Track Mechanic of Vascular Surgery ALEX/Adam Fuentes DO Aug 20, 2016 12:39
[2016-08-20] MEDS: ATORVASTATIN 80 MG TAB PO SCH (22:07)
--- NOTE | 2016-08-20 23:54 | HHI.PR ---
Subjective Remarks patient seen this morning around 11 AM. Says she is feeling well. Denies any chest pain or shortness of breath. There discussed with nursing, who says that patient was found with a large cup of Gatorade. Patient instructed not to drink Gatorade. Placed on fluid restrictions. Minimal [place] output. Remove Calderon nursing subsequently [place] for the patient fell to the ground while trying to get to the commode. No injuries reported. Patient denies any pain. Objective Vital Signs Date Time Temp Pulse Resp B/P Pulse Ox O2 Delivery O2 Flow Rate FiO2 08/20/16 20:06 94 Nasal Cannula 3.00 08/20/16 20:00 98.6 63 20 165/79 96 08/20/16 18:48 98.1 62 16 161/75 97 08/20/16 17:40 62 16 170/89 96 08/20/16 16:04 98.3 62 16 170/89 96 08/20/16 12:03 98.0 62 22 152/68 94 08/20/16 10:15 95 Nasal Cannula 3.00 08/20/16 08:20 Nasal Cannula 2.00 08/20/16 08:04 98.6 63 20 159/76 96 08/20/16 07:45 63 08/20/16 04:34 97.9 65 18 175/79 96 08/20/16 03:40 Nasal Cannula 2.00 I/O 08/19/16 08/19/16 08/19/16 08/20/16 08/20/16 08/20/16 07:00 15:00 23:00 07:00 15:00 23:00 Intake Total 480 ml 482 ml 240 ml 482 ml Output Total 300 ml 600 ml 4200 ml 1100 ml 800 ml Balance -300 ml -120 ml -3718 ml -860 ml -318 ml Intake Oral 480 ml 480 ml 240 ml 480 ml IV Total 2 ml 2 ml Output Urine Total 300 ml 600 ml 200 ml 1100 ml 800 ml Hemodialysis 4000 ml # Bowel Movements 0 1 0 0 Result Diagram: 08/18/16 0705 Objective Remarks GENERAL: Appears comfortable. Alert.oriented 3.exam unchanged. SKIN: Warm and dry. HEAD: Normocephalic. EYES: No scleral icterus. No injection or drainage. NECK: Supple, trachea midline. No JVD. CARDIOVASCULAR: Regular rate and rhythm without murmurs, gallops, or rubs. RESPIRATORY: Breath sounds equal bilaterally. No accessory muscle use. GASTROINTESTINAL: Abdomen soft, non-tender, nondistended. MUSCULOSKELETAL: No cyanosis, or edema. BACK: Nontender without obvious deformity. No CVA tenderness. A/P Assessment and Plan =====08/20/16 -patient advised not to drink Gatorade, which has been affecting her glucose levels Patient fell this afternoon. No pain. Out of bed with assistance. -Discharge when arrangements made by case management 50 Y/O female with a medical history significant for CHF, depression, HTN, dm, and ckd stage 5 with prolonged hospital stay secondary to recurrent intubation, status post cardiac arrest. Patient now improving on the medical surgical unit. //Acute respiratory failurenow resolved: -Likely a combination of renal failure, acute on chronic diastolic heart failure , pulmonary edema, possible COPD, HCAP with MRSA in the sputum. Patient has been intubated about 3 times during this hospitalization. - Appreciate pulmonology following. On prednisone. bipap per Pulmonology - Infectious disease following. s/p Rocephin and Zyvox. Antibiotics discontinued. Monitor patient off antibiotic. - Patient currently on nasal cannula, BiPAP at bedtime. Neurology following. Appreciate assistance. //Acute on chronic kidney disease V: Now on dialysis. ESRD -per nephrology will need long-term hemodialysis. -Appreciate nephrology following. Most likely advanced diabetic nephropathy. Status post Vas-Cath placement. Dialysis per nephrology. continue to f/u with BMP. -Tunneled vascular catheter least by IR on 08/16. - Vascular surgery planning for elective aVF during this hospitalization, appreciate consult. //Encephalopathy, multifactorial: -RESOLVED. //Secondary to multiple comorbid conditions above. Anoxic injury also possibility. Continue to follow. //CHF: Echocardiogram 05/21 revealed EF 50%. Mildly dilated ventricle. Diffuse hypokinesis. Echocardiogram 07/23 reveals EF 45-50%. No regional motion abnormality. POOL 59 mmHg. Mild TR. - Continue Coreg, lisinopril. Previously followed by cardiology. Previous elevated Troponin likely due to fluid overloaded state per Cards. previous stress test showing mild small lateral wall defect. -f/u cardiology as outpatient. //Severe deconditioning: Secondary to above comorbidities. Need to mobilize patient. PT following; good candidate for inpatient rehabilitation. //Hypertension: Resistant, difficult to control. On Coreg 25mg BID, hydralazine 100mg TID, lisinopril 20 daily, clonidine 0.2 mg every 8 hours Continue atorvastatin 80 mg daily's for dyslipidemia. Cont Nifedipine at 20 mg by mouth every 8 hours. Continue hydralazine IV as needed. -Continue to monitor blood pressure and adjust medications as necessary. //Diabetes mellitus, type II, uncontrolled: - Continue sliding scale insulin with Accu-Chek -08/17. Blood sugars elevated. Add Levemir 5 units twice daily. -08/18. Blood sugars again elevated. Increase Levemir to 8 units twice daily. -08/19. Blood sugars elevated. Increase Levemir to 10 units twice daily. - Continue to monitor blood sugars //Anemia, of chronic disease: Currently on iron sulfate 325mg PO twice a day/home medication. Monitor CBC. -Continue to monitor as necessary, Transfuse for hemoglobin less than 7 //DVT prophylaxis: SCDs/Heparin Discharge Planning -Plan for SNF -Needs outpatient hemodialysis set up prior to SNF placement Undergoing AV fistula evaluation.uncertain if this is required for outpatient dialysis. Case management assistance appreciated. Osmin Green MD Aug 20, 2016 23:54
[2016-08-21] VITALS (7 sets, daily range): BP systolic 80–203; BP diastolic 70–95; PULSE 60–77; RESP 18–20; TEMP 97.7–98.6; O2SAT 93–98
[2016-08-21] MEDS: CHLORHEXIDINE GLUCONATE 2 % 1 PACK (2 CLOTHS) TOP SCH (03:53)
[2016-08-21] MEDS: cloNIDine HCL 0.1 MG TAB PO SCH ×3 (05:03→20:39)
[2016-08-21] MEDS: hydrALAZINE HCL 50 MG TAB PO SCH ×3 (05:03→20:39)
[2016-08-21] MEDS: INSULIN NovoLIN REGULAR SUPPLEMENTAL SCALE SQ SCH ×4 (05:03→23:00)
[2016-08-21] MEDS: NIFEdipine 10 MG CAP PO SCH ×3 (05:03→20:38)
[2016-08-21 07:32] LABS: HEMATOCRIT 28.4 % (35.0-46.0); MEAN CELL VOLUME 71.9 FL (80.0-100.0); MEAN CORPUSCULAR HGB CONC 30.6 % (32.0-36.0); PLATELET COUNT 180 TH/MM3 (150-450); RED BLOOD COUNT 3.95 MIL/MM3 (4.00-5.30); RED CELL DISTRIBUTION WIDTH 18.6 % (11.6-17.2); WHITE BLOOD COUNT 4.9 TH/MM3 (4.0-11.0)
[2016-08-21 07:41] LABS: REVIEW FLAG FINAL
[2016-08-21] MEDS: CHLORHEXIDINE 0.12% (ORAL KIT) 15 ML CUP MT SCH ×2 (08:00→20:00)
[2016-08-21] MEDS: GABAPENTIN 300 MG CAP PO SCH ×2 (08:31→20:11)
[2016-08-21] MEDS: predniSONE 5 MG TAB PO SCH (08:31)
[2016-08-21] MEDS: PANTOPRAZOLE SODIUM 40 MG VIAL IV SCH (08:32)
[2016-08-21] MEDS: FERROUS SULFATE 300 MG /5ML UDC PO SCH ×2 (08:32→20:11)
[2016-08-21] MEDS: HEPARIN SODIUM - SQ 10,000 UNITS/ML VIAL SQ SCH ×2 (08:32→20:10)
[2016-08-21] MEDS: ASPIRIN 81 MG CHEW TAB PO SCH (08:32)
[2016-08-21] MEDS: SENNOSIDES 8.6 MG TAB PO SCH ×2 (08:33→20:09)
[2016-08-21] MEDS: SODIUM CHLORIDE 0.9% FLUSH 5 ML FLUSH IVF SCH ×3 (08:34→20:12)
[2016-08-21] MEDS: CARVEDILOL 12.5 MG TAB PO SCH ×2 (08:35→20:11)
[2016-08-21] MEDS: DOCUSATE SODIUM 100 MG CAP PO SCH ×2 (08:35→20:11)
[2016-08-21] MEDS: MUPIROCIN 2% OINT 1 APPLIC/GM SYR EACH NARE SCH ×2 (08:35→20:08)
[2016-08-21] MEDS: INSULIN DETEMIR 100 UNITS/ML VIAL SQ SCH ×2 (08:36→20:10)
[2016-08-21] MEDS: NYSTATIN 100,000 UNIT/GM CREAM 15 GM TOPICAL SCH ×2 (08:36→20:13)
[2016-08-21] MEDS: LISINOPRIL 20 MG TAB PO SCH (09:00)
--- NOTE | 2016-08-21 13:12 | HHI.PR ---
Subjective Remarks Stable and has no complaints. On O2 3 L N/C. No fever.Off CPAP now. Objective Vital Signs Date Time Temp Pulse Resp B/P Pulse Ox O2 Delivery O2 Flow Rate FiO2 08/21/16 10:44 93 Nasal Cannula 3.00 08/21/16 08:30 Nasal Cannula 2.00 08/21/16 08:00 97.7 60 18 148/72 98 Manual Cuff/Auscultation 08/21/16 04:00 98.4 64 18 174/82 95 08/21/16 00:00 98.2 66 20 80/ 96 08/20/16 22:15 Nasal Cannula 2.00 08/20/16 20:15 65 08/20/16 20:06 94 Nasal Cannula 3.00 08/20/16 20:00 98.6 63 20 165/79 96 08/20/16 18:48 98.1 62 16 161/75 97 08/20/16 17:40 62 16 170/89 96 08/20/16 16:04 98.3 62 16 170/89 96 I/O 08/20/16 08/20/16 08/20/16 08/21/16 08/21/16 08/21/16 07:00 15:00 23:00 07:00 15:00 23:00 Intake Total 240 ml 482 ml 2 ml 2200 ml Output Total 1100 ml 800 ml 1600 ml Balance -860 ml -318 ml 2 ml 600 ml Intake Oral 240 ml 480 ml 2200 ml IV Total 2 ml 2 ml Output Urine Total 1100 ml 800 ml 1600 ml # Bowel Movements 0 0 Result Diagram: 08/21/16 0655 Objective Remarks General: This is a very obese middle-aged lady who is alert . HEENT: Head normocephalic. Pupils are reactive. Tongue is moist. Throat is clear. Nasal mucosa clear Neck: Supple.No JVD. No lymphadenopathy. Trachea midline. Chest: Distant breath sounds and few crackles at the lung bases. Heart: The heart sounds are regular. S1 and S2. No definite murmur. No S3. Abdomen: Soft, protuberant. No mass, no organomegaly or tenderness. Bowel sounds are active. Extremities: Decreased peripheral pulses. No leg edema. Neurologic: responsive. Reflexes 1 +. No deficits. Rectal: Exam deferred. Skin: dry and warm. Assessment and Plan Assessment and Plan . IMPRESSION 1. CHF with acute exacerbation. 2. Possible obstructive sleep apnea syndrome. 3. Hypertension. 4. Elevated troponin. 5. Diabetes mellitus type 2. 6. S/P respiratory Arrest. Plan : 1. Cont O2 N/C 2 L. 2. D/C Bipap at HS 3. Nebs qid , duoneb. 4. Transfer to rehab soon 5. prednisone to 5 mg daily for 5 days 6. IS at bedside qid. 7. Dialysis every other day. 8. PT evaluation for activity.Rehab soon. Sheela Lau MD Aug 21, 2016 13:12
[2016-08-21] MEDS ORDERED: LEVEMIR SQ (13:36)
--- NOTE | 2016-08-21 13:39 | HHI.PR ---
Subjective Remarks pt says she feels well. no pain. no cp or sob. nursin reports glucose elevated , patient eating donuts. d/w patient, she will tell family to stop bringing inapropriate foods. Objective Vital Signs Date Time Temp Pulse Resp B/P Pulse Ox O2 Delivery O2 Flow Rate FiO2 08/21/16 10:44 93 Nasal Cannula 3.00 08/21/16 08:30 Nasal Cannula 2.00 08/21/16 08:00 97.7 60 18 148/72 98 Manual Cuff/Auscultation 08/21/16 04:00 98.4 64 18 174/82 95 08/21/16 00:00 98.2 66 20 80/ 96 08/20/16 22:15 Nasal Cannula 2.00 08/20/16 20:15 65 08/20/16 20:06 94 Nasal Cannula 3.00 08/20/16 20:00 98.6 63 20 165/79 96 08/20/16 18:48 98.1 62 16 161/75 97 08/20/16 17:40 62 16 170/89 96 08/20/16 16:04 98.3 62 16 170/89 96 I/O 08/20/16 08/20/16 08/20/16 08/21/16 08/21/16 08/21/16 06:59 14:59 22:59 06:59 14:59 22:59 Intake Total 240 ml 482 ml 2 ml 2200 ml Output Total 1100 ml 800 ml 1600 ml Balance -860 ml -318 ml 2 ml 600 ml Intake Oral 240 ml 480 ml 2200 ml IV Total 2 ml 2 ml Output Urine Total 1100 ml 800 ml 1600 ml # Bowel Movements 0 0 Result Diagram: 08/21/16 0655 Objective Remarks GENERAL: Appears comfortable. Alert.oriented 3.exam unchanged. SKIN: Warm and dry. HEAD: Normocephalic. EYES: No scleral icterus. No injection or drainage. NECK: Supple, trachea midline. No JVD. CARDIOVASCULAR: Regular rate and rhythm without murmurs, gallops, or rubs. RESPIRATORY: Breath sounds equal bilaterally. No accessory muscle use. GASTROINTESTINAL: Abdomen soft, non-tender, nondistended. MUSCULOSKELETAL: No cyanosis, or edema. no bruising. BACK: Nontender without obvious deformity. No CVA tenderness. A/P Assessment and Plan =====08/20/16 -patient advised not to eat food from home -insulin incr -oob with assist -pulm to dc bipap-has not been using 50 Y/O female with a medical history significant for CHF, depression, HTN, dm, and ckd stage 5 with prolonged hospital stay secondary to recurrent intubation, status post cardiac arrest. Patient now improving on the medical surgical unit. //Acute respiratory failurenow resolved: -Likely a combination of renal failure, acute on chronic diastolic heart failure , pulmonary edema, possible COPD, HCAP with MRSA in the sputum. Patient has been intubated about 3 times during this hospitalization. - Appreciate pulmonology following. On prednisone. bipap per Pulmonology - Infectious disease following. s/p Rocephin and Zyvox. Antibiotics discontinued. Monitor patient off antibiotic. - Patient currently on nasal cannula, BiPAP at bedtime. Neurology following. Appreciate assistance. //Acute on chronic kidney disease V: Now on dialysis. ESRD -per nephrology will need long-term hemodialysis. -Appreciate nephrology following. Most likely advanced diabetic nephropathy. Status post Vas-Cath placement. Dialysis per nephrology. continue to f/u with BMP. -Tunneled vascular catheter least by IR on 08/16. - Vascular surgery planning for elective aVF during this hospitalization, appreciate consult. //Encephalopathy, multifactorial: -RESOLVED. //Secondary to multiple comorbid conditions above. Anoxic injury also possibility. Continue to follow. //CHF: Echocardiogram 05/21 revealed EF 50%. Mildly dilated ventricle. Diffuse hypokinesis. Echocardiogram 07/23 reveals EF 45-50%. No regional motion abnormality. POOL 59 mmHg. Mild TR. - Continue Coreg, lisinopril. Previously followed by cardiology. Previous elevated Troponin likely due to fluid overloaded state per Cards. previous stress test showing mild small lateral wall defect. -f/u cardiology as outpatient. //Severe deconditioning: Secondary to above comorbidities. Need to mobilize patient. PT following; good candidate for inpatient rehabilitation. //Hypertension: Resistant, difficult to control. On Coreg 25mg BID, hydralazine 100mg TID, lisinopril 20 daily, clonidine 0.2 mg every 8 hours Continue atorvastatin 80 mg daily's for dyslipidemia. Cont Nifedipine at 20 mg by mouth every 8 hours. Continue hydralazine IV as needed. -Continue to monitor blood pressure and adjust medications as necessary. //Diabetes mellitus, type II, uncontrolled: - Continue sliding scale insulin with Accu-Chek -08/17. Blood sugars elevated. Add Levemir 5 units twice daily. -08/18. Blood sugars again elevated. Increase Levemir to 8 units twice daily. -08/19. Blood sugars elevated. Increase Levemir to 10 units twice daily. - Continue to monitor blood sugars //fall/ patient with ground level fall 08/20 using commode. oob with assist, pt advised to ask for assist whenever getting up. //Anemia, of chronic disease: Currently on iron sulfate 325mg PO twice a day/home medication. Monitor CBC. -Continue to monitor as necessary, Transfuse for hemoglobin less than 7 //DVT prophylaxis: SCDs/Heparin Discharge Planning -Plan for SNF -no need for Bipap. -Needs outpatient hemodialysis set up prior to SNF placement Undergoing AV fistula evaluation.uncertain if this is required for outpatient dialysis. Case management assistance appreciated. Osmin Green MD Aug 21, 2016 13:39
--- NOTE | 2016-08-21 18:23 | HHI.NPPN ---
Subjective History of Present Illness 50 year old with CKD 4/5 Diabetes Nephrotic range proteinuria Additional Remarks Patient is alert, breathing is better, with nasal cannula, clinically same. Review of Systems General Constitutional: Fatigue Cardiovascular Cardiac: Edema Objective Data Data 08/20/16 08/21/16 19:00 07:00 Intake Total 482 ml 2202 ml Output Total 800 ml 1600 ml Balance -318 ml 602 ml Intake Oral 480 ml 2200 ml IV Total 2 ml 2 ml Output Urine Total 800 ml 1600 ml # Bowel Movements 0 Vital Signs Date Time Temp Pulse Resp B/P Pulse Ox O2 Delivery O2 Flow Rate FiO2 08/21/16 17:35 95 Nasal Cannula 3.00 08/21/16 12:00 98.6 64 18 155/70 95 08/21/16 10:44 93 Nasal Cannula 3.00 08/21/16 08:30 Nasal Cannula 2.00 08/21/16 08:00 97.7 60 18 148/72 98 Manual Cuff/Auscultation 08/21/16 04:00 98.4 64 18 174/82 95 08/21/16 00:00 98.2 66 20 80/ 96 08/20/16 22:15 Nasal Cannula 2.00 08/20/16 20:15 65 08/20/16 20:06 94 Nasal Cannula 3.00 08/20/16 20:00 98.6 63 20 165/79 96 08/20/16 18:48 98.1 62 16 161/75 97 -: 08/21/16 0655 Physical Exam General Appearance: No Acute Distress, Comfortable, Anxious, Obese Throat Throat Exam: Oral Mucosa [place] & Moist Neck Neck Exam: Neck Supple Pulmonary Resp Exam: Rhonchi, Decreased Bases, Diminished Breath Sounds Cardiology CV Exam: Regular, Normal Sinus Rhythm Gastrointestinal/Abdomen GI Exam: Soft, Non-Tender, Distended Extremeties Extremities Exam: Pitting Edema, Dependent Edema Neurologic Neuro Exam: Alert, Awake, Oriented Assessment/Plan Problem List: (1) ESRD (end stage renal disease) on dialysis Plan: kidney failure due to advance diabetic nephropathy need manager long term care plans Has PermCath and will need AVF Seen by vascular surgery. Trolley Operator notes seen, possibly to go to [facility]. HD to continue as schedule, remove fluid as tolerated. (2) Stage 4 chronic kidney disease Plan: Patient with advanced kidney disease and had the workup in May. 10 g of proteinuria Most likely has advance Diabetic Nephropathy. continue HD tomorrow (3) Hypoventilation associated with obesity syndrome Plan: critical care following (4) Nephrotic syndrome Plan: Protein to creatinine ratio above 10 10.52 (5) Acute exacerbation of CHF (congestive heart failure) Plan: This is likely due to chronic kidney disease and diastolic dysfunction (6) Diabetes Plan: Advance manifestations diabetic nephropathy, retinopathy and neuropathy (7) HTN (hypertension) Plan: Continue to monitor on PRN hydralazine Problem Qualifiers (1) Acute exacerbation of CHF (congestive heart failure): Qualified Code: I50.9 - Acute on chronic congestive heart failure, unspecified congestive heart failure type (2) Diabetes: (3) HTN (hypertension): Qualified Code: I10 - Essential hypertension Mia Medley MD Aug 21, 2016 18:23
[2016-08-21] MEDS: ATORVASTATIN 80 MG TAB PO SCH (20:11)
[2016-08-22] VITALS (7 sets, daily range): BP systolic 134–191; BP diastolic 65–90; PULSE 60–69; RESP 16–20; TEMP 97.8–98.2; O2SAT 96–97
[2016-08-22] MEDS: hydrALAZINE HCL 20 MG/ML VIAL IV PUSH PRN (00:32)
[2016-08-22] MEDS: CHLORHEXIDINE GLUCONATE 2 % 1 PACK (2 CLOTHS) TOP SCH (04:00)
[2016-08-22] MEDS: INSULIN NovoLIN REGULAR SUPPLEMENTAL SCALE SQ SCH ×3 (04:57→17:00)
[2016-08-22] MEDS: NIFEdipine 10 MG CAP PO SCH ×2 (04:58→13:06)
[2016-08-22] MEDS: cloNIDine HCL 0.1 MG TAB PO SCH ×2 (04:58→13:06)
[2016-08-22] MEDS: hydrALAZINE HCL 50 MG TAB PO SCH ×2 (04:58→13:06)
[2016-08-22] MEDS ORDERED: MINOXIDIL 2.5 MG TAB PO SCH (09:00)
[2016-08-22] MEDS ORDERED: MINO2.5T PO (09:00)
[2016-08-22] MEDS: FERROUS SULFATE 300 MG /5ML UDC PO SCH (09:10)
[2016-08-22] MEDS: ASPIRIN 81 MG CHEW TAB PO SCH (09:10)
[2016-08-22] MEDS: LISINOPRIL 20 MG TAB PO SCH (09:10)
[2016-08-22] MEDS: SENNOSIDES 8.6 MG TAB PO SCH (09:10)
[2016-08-22] MEDS: predniSONE 5 MG TAB PO SCH (09:10)
[2016-08-22] MEDS: GABAPENTIN 300 MG CAP PO SCH (09:10)
[2016-08-22] MEDS: CARVEDILOL 12.5 MG TAB PO SCH (09:10)
[2016-08-22] MEDS: DOCUSATE SODIUM 100 MG CAP PO SCH (09:11)
[2016-08-22] MEDS: NYSTATIN 100,000 UNIT/GM CREAM 15 GM TOPICAL SCH (09:11)
[2016-08-22] MEDS: INSULIN DETEMIR 100 UNITS/ML VIAL SQ SCH (09:11)
[2016-08-22] MEDS: PANTOPRAZOLE SODIUM 40 MG VIAL IV SCH (09:11)
[2016-08-22] MEDS: HEPARIN SODIUM - SQ 10,000 UNITS/ML VIAL SQ SCH (09:21)
[2016-08-22] MEDS: SODIUM CHLORIDE 0.9% FLUSH 5 ML FLUSH IVF SCH ×2 (09:21)
--- NOTE | 2016-08-22 17:29 | HHI.PR ---
Subjective Remarks patient seen today around 1 PM. Says she is feeling well. Denies any chest pain or shortness of breath. Objective Vital Signs Date Time Temp Pulse Resp B/P Pulse Ox O2 Delivery O2 Flow Rate FiO2 08/22/16 12:00 98.0 60 20 134/65 96 08/22/16 10:37 96 Nasal Cannula 2.00 08/22/16 08:11 62 08/22/16 08:00 96 Nasal Cannula 2.00 40 08/22/16 08:00 98.2 61 18 152/70 97 08/22/16 04:00 97.8 64 16 154/77 97 08/22/16 01:45 157/77 08/22/16 00:00 97.9 69 17 191/90 97 08/21/16 20:39 Nasal Cannula 2.00 08/21/16 20:00 98.5 77 18 203/95 98 08/21/16 17:35 95 Nasal Cannula 3.00 I/O 08/21/16 08/21/16 08/21/16 08/22/16 08/22/16 08/22/16 07:00 15:00 23:00 07:00 15:00 23:00 Intake Total 2200 ml 360 ml Output Total 1600 ml 3500 ml Balance 600 ml -3500 ml 360 ml Intake Oral 2200 ml 360 ml Output Urine Total 1600 ml Hemodialysis 3500 ml # Voids 1 Result Diagram: 08/21/16 0655 Objective Remarks GENERAL: Appears comfortable. Alert.oriented 3.exam again unchanged. SKIN: Warm and dry. HEAD: Normocephalic. EYES: No scleral icterus. No injection or drainage. NECK: Supple, trachea midline. No JVD. CARDIOVASCULAR: Regular rate and rhythm without murmurs, gallops, or rubs. RESPIRATORY: Breath sounds equal bilaterally. No accessory muscle use. GASTROINTESTINAL: Abdomen soft, non-tender, nondistended. MUSCULOSKELETAL: No cyanosis, or edema. no bruising. BACK: Nontender without obvious deformity. No CVA tenderness. A/P Assessment and Plan =====08/22/16 -blood pressure elevated. Add low-dose minoxidil -Glucose still elevated. Patient has a "big gulp" next to bed which is new. Filled with water Advised again to avoid any outside food. Advised to adhere to fluid restrictions -Glucose still elevated, likely to dietary noncompliance, outside food. -Pulmonary has discontinued BiPAP. 50 Y/O female with a medical history significant for CHF, depression, HTN, dm, and ckd stage 5 with prolonged hospital stay secondary to recurrent intubation, status post cardiac arrest. Patient now improving on the medical surgical unit. //Acute respiratory failurenow resolved: -Likely a combination of renal failure, acute on chronic diastolic heart failure , pulmonary edema, possible COPD, HCAP with MRSA in the sputum. Patient has been intubated about 3 times during this hospitalization. - Appreciate pulmonology following. On prednisone. bipap per Pulmonology - Infectious disease following. s/p Rocephin and Zyvox. Antibiotics discontinued. Monitor patient off antibiotic. - Patient currently on nasal cannula. Not requiring BiPAP. Pulmonary has discontinued BiPAP. Neurology following. Appreciate assistance. //Acute on chronic kidney disease V: Now on dialysis. ESRD -per nephrology will need long-term hemodialysis. -Appreciate nephrology following. Most likely advanced diabetic nephropathy. Status post Vas-Cath placement. Dialysis per nephrology. continue to f/u with BMP. -Tunneled vascular catheter least by IR on 08/16. - Vascular surgery will need to evaluate patient in the near future for AV fistula placement. //Encephalopathy, multifactorial: -RESOLVED. //Secondary to multiple comorbid conditions above. Anoxic injury also possibility. Continue to follow. //CHF: Echocardiogram 05/21 revealed EF 50%. Mildly dilated ventricle. Diffuse hypokinesis. Echocardiogram 07/23 reveals EF 45-50%. No regional motion abnormality. POOL 59 mmHg. Mild TR. - Continue Coreg, lisinopril. Previously followed by cardiology. Previous elevated Troponin likely due to fluid overloaded state per Cards. previous stress test showing mild small lateral wall defect. -f/u cardiology as outpatient. //Severe deconditioning: Secondary to above comorbidities. Need to mobilize patient. PT following; good candidate for inpatient rehabilitation. //Hypertension: Resistant, difficult to control. On Coreg 25mg BID, hydralazine 100mg TID, lisinopril 20 daily, clonidine 0.2 mg every 8 hours Continue atorvastatin 80 mg daily's for dyslipidemia. Cont Nifedipine at 20 mg by mouth every 8 hours. Continue hydralazine IV as needed. -Continue to monitor blood pressure and adjust medications as necessary. -08/22. add low-dose minoxidil for elevated blood pressure. //Diabetes mellitus, type II, uncontrolled: - Continue sliding scale insulin with Accu-Chek -08/17. Blood sugars elevated. Add Levemir 5 units twice daily. -08/18. Blood sugars again elevated. Increase Levemir to 8 units twice daily. -08/19. Blood sugars elevated. Increase Levemir to 10 units twice daily. -08/21. Increase Levemir to 14 units twice daily. 08/22. Still elevated. Dietary noncompliance. Discussed with patient.- Continue to monitor blood sugars //fall/ patient with ground level fall 08/20 using commode. oob with assist, pt advised to ask for assist whenever getting up. //Anemia, of chronic disease: Currently on iron sulfate 325mg PO twice a day/home medication. Monitor CBC. -Continue to monitor as necessary, Transfuse for hemoglobin less than 7 //DVT prophylaxis: SCDs/Heparin Discharge Planning -Plan for SNF -no need for Bipap. -Needs outpatient hemodialysis set up prior to SNF placement vascular surgery evaluation for AV fistula in the near future. uncertain if this is required for outpatient dialysis. Case management assistance appreciated. Osmin Green MD Aug 22, 2016 17:29
--- NOTE | 2016-08-22 17:33 | HHI.DS ---
Discharge Summary Admission Date Jul 15, 2016 at 20:42 Discharge Date: Aug 22, 2016 Admitting Diagnosis acute on chronic CHF exacerbation (1) Acute exacerbation of CHF (congestive heart failure) ICD Code: I50.9 Diagnosis: Principal (2) Stage 4 chronic kidney disease ICD Code: N18.4 Diagnosis: Principal (3) Elevated troponin ICD Code: R79.89 Diagnosis: Secondary (4) HTN (hypertension) ICD Code: I10 Diagnosis: Secondary (5) Diabetes ICD Code: E11.9 Diagnosis: Secondary Procedures tunneled vascular catheter placement. Brief History - From Admission History taken from patient and ED physician. 50 y/o female with a history of chf, depression, htn, dm, and ckd presented to the ED with complaints of dyspnea, swelling in her lower extremities and a 50lb weight gain since last admission 06/03/16. Patient states she has gained 50 lbs in fluid from last admission. She is complaining of increased shortness of breath with intermittent chest pressure with no radiation or associated symptoms. She denies any nausea, vomiting or dizziness. She was admitted on 05/31/16 and diagnosed with CHF, discharged home on on Bumex. Patient states she recently ran out of meds and has not followed up with a doctor due to transportation issues. She does not know what medications she ran out of and does not remember the name of the medications she takes. She states she is not from here and her pcp is 2 hours away and she does not want her kids to take off work to take her to appointments. She is hoping to move back in 2 weeks or so. She states she tried to call a staker surveying to follow up but they required her records and she did not get them. Despite taking Bumex she states she has not had an increase in urination. Last admission 2d echo showed systolic dysfunction with EF 50%, she was seen by DR. Choudhury, and DR. Medley CBC/BMP: 08/21/16 0655 Significant Findings Laboratory Tests Test 08/21/16 06:55 Red Blood Count 3.95 MIL/MM3 (4.00-5.30) Hemoglobin 8.7 GM/DL (11.6-15.3) Hematocrit 28.4 % (35.0-46.0) Mean Corpuscular Volume 71.9 FL (80.0-100.0) Mean Corpuscular Hemoglobin 22.0 PG (27.0-34.0) Mean Corpuscular Hemoglobin 30.6 % Concent (32.0-36.0) Red Cell Distribution Width 18.6 % (11.6-17.2) Imaging Last Impressions Catheter Placement X-Ray 08/16/16 0000 Signed Impressions: Service Date/Time: Tuesday, August 16, 2016 09:24 - CONCLUSION: Uncomplicated PermaCath placement as above. Emre Daniel MD Chest X-Ray 08/14/16 0600 Signed Impressions: Service Date/Time: Sunday, August 14, 2016 06:41 - CONCLUSION: 1. Right basilar density with probable small pleural effusion. 2. Cardiomegaly and right sided jugular line. Dylon Haley MD Upper Extremity Ultrasound 08/09/16 0000 Signed Impressions: Service Date/Time: Tuesday, August 09, 2016 19:54 - CONCLUSION: Focally thrombosed cephalic vein on the left. No upper extremity thrombus on the right. Adolfo Roman MD Brain MRI 07/25/16 0000 Signed Impressions: Service Date/Time: July 17:05 - CONCLUSION: 1. No acute hemorrhage, mass or infarction. 2. Scattered foci of increased signal noted most consistent with chronic small vessel ischemic change. This is not significantly changed. 3. Fluid and high signal is now noted in the mastoid air cells bilaterally consistent with mastoiditis. Grady Hale MD Head CT 07/23/16 0000 Signed Impressions: Service Date/Time: Saturday, July 23, 2016 20:54 - CONCLUSION: Normal examination for a patient of this age. No significant change has occurred. George Choi MD Consultation 07/19/16 0000 Signed Impressions: Service Date/Time: Tuesday, July 19, 2016 00:00 - CONCLUSION: Procedure not performed secondary to cardiopulmonary arrest. Emre Daniel MD Abdomen X-Ray 07/18/16 0000 Signed Impressions: Service Date/Time: Thursday, July 18, 2016 15:39 - CONCLUSION: No evidence of obstruction. No MRI incompatible foreign body is identified. Eliezer Shay MD Transfer Summary Obese woman with chronic heart failure and CKD required intubation for combined respiratory failure. Extubated 2 days ago and tolerating FM ventilation and prn BiPAP hs. Renal service following. Hospital Course Patient required BiPAP for respiratory failure. CHF with ejection fraction 45- 50%, pulmonary artery hypertension with PA PP 59 mmHg. Aggressive management of CHF with diuretics, lisinopril, blood pressure control. chronic renal failure, requiring dialysis. Nephrology perform dialysis during admission. Patient received tunneled vascular catheter, will need evaluation for AV fistula placement in the near future. =====08/22/16 -Glucose still elevated. Patient has a "big gulp" next to bed which is new. Filled with water Advised again to avoid any outside food. Advised to adhere to fluid restrictions -Glucose still elevated, likely to dietary noncompliance, outside food. -Pulmonary has discontinued BiPAP. 50 Y/O female with a medical history significant for CHF, depression, HTN, dm, and ckd stage 5 with prolonged hospital stay secondary to recurrent intubation, status post cardiac arrest. Patient now improving on the medical surgical unit. //Acute respiratory failurenow resolved: -Likely a combination of renal failure, acute on chronic diastolic heart failure , pulmonary edema, possible COPD, HCAP with MRSA in the sputum. Patient has been intubated about 3 times during this hospitalization. - Appreciate pulmonology following. On prednisone. bipap per Pulmonology - Infectious disease following. s/p Rocephin and Zyvox. Antibiotics discontinued. Monitor patient off antibiotic. - Patient currently on nasal cannula. Not requiring BiPAP. Pulmonary has discontinued BiPAP. Neurology following. Appreciate assistance. //Acute on chronic kidney disease V: Now on dialysis. ESRD -per nephrology will need long-term hemodialysis. -Appreciate nephrology following. Most likely advanced diabetic nephropathy. Status post Vas-Cath placement. Dialysis per nephrology. continue to f/u with BMP. -Tunneled vascular catheter least by IR on 08/16. - Vascular surgery will need to evaluate patient in the near future for AV fistula placement. //Encephalopathy, multifactorial: -RESOLVED. //Secondary to multiple comorbid conditions above. Anoxic injury also possibility. Continue to follow. //CHF: Echocardiogram 05/21 revealed EF 50%. Mildly dilated ventricle. Diffuse hypokinesis. Echocardiogram 07/23 reveals EF 45-50%. No regional motion abnormality. POOL 59 mmHg. Mild TR. - Continue Coreg, lisinopril. Previously followed by cardiology. Previous elevated Troponin likely due to fluid overloaded state per Cards. previous stress test showing mild small lateral wall defect. -f/u cardiology as outpatient. //Severe deconditioning: Secondary to above comorbidities. Need to mobilize patient. PT following; good candidate for inpatient rehabilitation. //Hypertension: Resistant, difficult to control. On Coreg 25mg BID, hydralazine 100mg TID, lisinopril 20 daily, clonidine 0.2 mg every 8 hours Continue atorvastatin 80 mg daily's for dyslipidemia. Cont Nifedipine at 20 mg by mouth every 8 hours. Continue hydralazine IV as needed. -Continue to monitor blood pressure and adjust medications as necessary. //Diabetes mellitus, type II, uncontrolled: - Continue sliding scale insulin with Accu-Chek -08/17. Blood sugars elevated. Add Levemir 5 units twice daily. -08/18. Blood sugars again elevated. Increase Levemir to 8 units twice daily. -08/19. Blood sugars elevated. Increase Levemir to 10 units twice daily. -08/21. Increase Levemir to 14 units twice daily. 08/22. Still elevated. Dietary noncompliance. Discussed with patient.- Continue to monitor blood sugars //fall/ patient with ground level fall 08/20 using commode. oob with assist, pt advised to ask for assist whenever getting up. //Anemia, of chronic disease: Currently on iron sulfate 325mg PO twice a day/home medication. Monitor CBC. -Continue to monitor as necessary, Transfuse for hemoglobin less than 7 //DVT prophylaxis: SCDs/Heparin Pt Condition on Discharge: Good Discharge Disposition: Rehab Inpatient Discharge Time: > 30 minutes Discharge Instructions DIET: Follow Instructions for: Diabetic Diet Activities you can perform: Regular-No Restrictions Follow up Referrals: Cardiology - 2 Weeks with Juancho Choudhury DO Nephrology - Next Day with Ebony Garcia MD PCP Follow-up - 1 Week Vascular Surgery - 1 Week with Adam Zamorano DO New Medications: Minoxidil (Minoxidil) 2.5 Mg Tab 2.5 MG PO DAILY Blood Pressure Management #30 Ref 0 TAB Pantoprazole (Pantoprazole) 40 Mg Tab 40 MG PO DAILY Reflux #30 Ref 0 TAB Clonidine (Catapres) 0.1 Mg Tab 0.2 MG PO Q8HR Blood Pressure Management Days 30 TAB Clonidine (Catapres) 0.1 Mg Tab 0.1 MG PO UNSCH PRN for BP > 180/100 X 2 readings Days 30 TAB Docusate Sodium (Dok) 100 Mg Cap 100 MG PO BID Constipation Days 30 CAP Hydralazine (Hydralazine) 50 Mg Tab 100 MG PO Q8HR Blood Pressure Management Days 30 TAB Insulin Detemir Inj (Levemir Inj) 1,000 unit/ 10 ML Vial 14 UNITS SQ Q12HR Blood Sugar Management Days 30 INJECTION Insulin Human Regular Inj (Novolin R Inj) 1,000 Unit/10 Ml Vial 1 INJECTION SQ Q6H Blood Sugar Management Days 30 INJECTION Lisinopril (Lisinopril) 20 Mg Tab 20 MG PO DAILY Blood Pressure Management Days 30 TAB Nifedipine (Procardia) 10 Mg Cap 30 MG PO Q8HR Blood Pressure Management Days 30 CAP Nystatin Topical (Nystatin Topical) 100,000 unit/gm Cream 1 APPLIC TOPICAL Q12HR Rash Days 14 TUBE Sennosides (Senna Lax) 8.6 Mg Tab 8.6 MG PO Q12HR Constipation Days 30 TAB Changed Medications: Gabapentin (Gabapentin) 300 Mg Cap 300 MG PO BID Pain Management #90 Ref 0 CAP (Changed from: TID) Continued Medications: Amitriptyline (Amitriptyline) 50 Mg Tab 50 MG PO HS TAB Aspirin DR (Aspirin EC) 81 Mg Tabdr 81 MG PO DAILY Ref 0 TAB Atorvastatin (Atorvastatin) 80 Mg Tab 80 MG PO HS Cholesterol Management #30 Ref 0 TAB Carvedilol (Carvedilol) 25 Mg Tab 25 MG PO BID #60 Ref 0 TAB Ergocalciferol (Drisdol) 50,000 Unit Cap 40859 UNITS PO Q7D ON TUESDAYS Nutritional Supplement #30 Ref 0 CAP Ferrous Sulfate (Ferrous Sulfate) 325 Mg Tab 325 MG PO BID Nutritional Supplement #60 Ref 0 TAB Hydralazine (Hydralazine) 50 Mg Tab 50 MG PO TID Take with a meal Blood Pressure Management Ref 0 TAB Nitroglycerin SL (Nitroglycerin SL) 0.4 Mg Subl 0.4 MG SL DIRECTED ONE TABLET UNDER THE TONGUE NEEDED FOR CHEST PAIN, MAY REPEAT EVERY FIVE MINUTES FOR A TOTAL OF 3 DOSES OR CALL 911 IF NO RELIEF PRN CHEST PAIN #100 Ref 0 TAB.SL Discontinued Medications: Alprazolam (Xanax) 0.25 Mg Tab 0.25 MG PO BID PRN ANXIETY Ref 0 TAB Amlodipine (Norvasc) 10 Mg Tab 10 MG PO DAILY HTN #30 TAB Bumetanide (Bumex) 1 Mg Tab 1 MG PO BID diuretic #60 Ref 0 TAB Famotidine (Pepcid) 40 Mg Tab 40 MG PO DAILY #60 Ref 0 TAB Glipizide ER (Glipizide XL) 2.5 Mg Paula 2.5 MG PO DAILY Take with breakfast or first main meal of the day Blood Sugar Management #30 Ref 0 TAB Insulin Glargine Inj (Lantus Inj) 1,000 Unit/10 Ml Vial 40 UNITS SQ DAILYAC Blood Sugar Management Ref 0 VIAL Insulin Lispro (Human) Inj (Humalog Inj) 1,000 Unit/10 Ml Vial 12 UNITS SQ BID Blood Sugar Management #1 Ref 0 VIAL Osmin Green MD Aug 22, 2016 17:33
[2016-08-22] MEDS ORDERED: DOCUSATE SODIUM 50 MG/SENNA 8.6 MG TAB PO ONE (18:00)
[2016-09-04] MEDS ORDERED: COMMODE 3-IN-11 MIS (10:54)
[2016-09-04] MEDS ORDERED: WHEEMIS3 (10:54)
[2016-09-04] MEDS ORDERED: GETGO ROLLING W1 MI1 (10:54)
--- NOTE | 2016-09-06 11:09 | RSPPFT ---
DATE OF PROCEDURE: 08/15/16 COMMENTS: Spirometry demonstrates an FEV1 of 0.8 at 27% of predicted, FVC of 0.9 at 25%, FEF 25-75 at 33% of predicted. Post-bronchodilator study demonstrated no significant change. Lung volumes were not completed. Flow volume loops suggest a restrictive pattern. IMPRESSION: 1. Severe restrictive disease. 2. Additional moderately severe obstructive disease. 3. No significant changes following use of bronchodilator.
[2016-09-07] MEDS ORDERED: CARV12.5 PO (23:10)
[2016-09-07] MEDS ORDERED: LISI10TA3 PO (23:10)
[2016-09-07] MEDS ORDERED: LIDO5DIS35 TD (23:10)
[2016-09-07] MEDS ORDERED: LEVE250 PO (23:10)
[2016-09-07] MEDS ORDERED: Amitriptyline PO (23:10)
[2016-09-07] MEDS ORDERED: HEPA10003 SQ (23:10)
[2016-09-07] MEDS ORDERED: LIPI80TA PO (23:10)
[2016-09-07] MEDS ORDERED: NEUR300C PO (23:10)
[2016-09-07] MEDS ORDERED: hydrALAZINE PO (23:10)
[2016-09-07] MEDS ORDERED: NIFE10 PO (23:10)
[2016-09-07] MEDS ORDERED: PANT40TA3 PO (23:10)
[2016-09-07] MEDS ORDERED: CLON.2 PO (23:10)
[2016-09-07] MEDS ORDERED: MINO2.5T PO (23:10)
[2016-09-07] MEDS ORDERED: ASPI81TA11 PO (23:10)
[2016-09-07] MEDS ORDERED: FERR325T PO (23:10)
[2016-09-07] MEDS ORDERED: LEVEMIR SQ (23:10)
[2016-09-07] MEDS ORDERED: ACET325T PO (23:10)
[2016-09-18] MEDS ORDERED: DOCU1CAP39 PO (09:13)
[2016-09-18] MEDS ORDERED: LEVEMIR SQ (09:13)
[2016-09-18] MEDS ORDERED: ATOR1TAB18 PO (09:13)
[2016-09-18] MEDS ORDERED: CLON.1 PO ×2 (09:13)
[2016-09-18] MEDS ORDERED: ONDA4TAB7 PO (09:13)
[2016-09-18] MEDS ORDERED: LEVE250 PO (09:13)
[2016-09-18] MEDS ORDERED: NEUR300C PO (09:13)
[2016-09-18] MEDS ORDERED: ACET325T PO (09:13)
[2016-09-18] MEDS ORDERED: CARV12.5 PO (09:13)
[2016-09-18] MEDS ORDERED: FERR325T PO (09:13)
[2016-09-18] MEDS ORDERED: LISI-515 PO (09:13)
[2016-09-18] MEDS ORDERED: HYDR50TA15 PO (09:13)
[2016-09-18] MEDS ORDERED: PANT40TA3 PO (09:13)
[2016-09-18] MEDS ORDERED: FURO40TA PO ×2 (09:13→09:20)
[2016-09-18] MEDS ORDERED: NIFE10 PO (09:13)
[2016-10-20] MEDS ORDERED: NIFE10 PO (09:11)
[2016-10-20] MEDS ORDERED: CLON0.1T PO (09:11)
[2016-10-20] MEDS ORDERED: CARV6.25 PO (09:11)
[2016-10-20] MEDS ORDERED: FURO1TAB62 PO (09:11)
[2016-10-20] MEDS ORDERED: OMEP20TA PO (09:11)
[2016-12-12] MEDS ORDERED: FERR325T2 PO (06:45)
== END 2016-08-22 18:33 | DRG 291 ==
LOC: NEPE 17:33 → NEDA 20:42 → OBSVTOIN 20:42 → NEPGCP 22:13 → HIMN 07-18 15:17 → N04B 07-22 20:22 → N03A 07-23 19:30 → N04B 08-13 21:57
PROVIDERS: ADMIT Internal Medicine; ATTEND Internal Medicine
PROC: 0CJS8ZZ Inspection of Larynx, Via Natural or Artificial Opening Endoscopic (ICD-10-PCS; 2016-07-15)
PROC: 0BH17EZ Insertion of Endotracheal Airway into Trachea, Via Natural or Artificial Opening (ICD-10-PCS; 2016-07-18)
PROC: 5A1935Z Respiratory Ventilation, Less than 24 Consecutive Hours (ICD-10-PCS; 2016-07-18)
PROC: 5A1935Z Respiratory Ventilation, Less than 24 Consecutive Hours (ICD-10-PCS; 2016-07-19)
PROC: 0BH17EZ Insertion of Endotracheal Airway into Trachea, Via Natural or Artificial Opening (ICD-10-PCS; 2016-07-19)
PROC: 5A12012 Performance of Cardiac Output, Single, Manual (ICD-10-PCS; 2016-07-19)
PROC: 5A1955Z Respiratory Ventilation, Greater than 96 Consecutive Hours (ICD-10-PCS; principal; 2016-07-23)
PROC: 0BH17EZ Insertion of Endotracheal Airway into Trachea, Via Natural or Artificial Opening (ICD-10-PCS; 2016-07-23)
PROC: 5A09457 Assistance with Respiratory Ventilation, 24-96 Consecutive Hours, Continuous Positive Airway Pressure (ICD-10-PCS; 2016-07-23)
PROC: 02HV33Z Insertion of Infusion Device into Superior Vena Cava, Percutaneous Approach (ICD-10-PCS; 2016-07-23)
PROC: 5A12012 Performance of Cardiac Output, Single, Manual (ICD-10-PCS; 2016-07-23)
PROC: B544ZZA Ultrasonography of Left Jugular Veins, Guidance (ICD-10-PCS; 2016-07-23)
PROC: B5131ZA Fluoroscopy of Right Jugular Veins using Low Osmolar Contrast, Guidance (ICD-10-PCS; 2016-08-05)
PROC: 5A1D60Z (ICD-10-PCS; 2016-08-05)
PROC: 02HV33Z Insertion of Infusion Device into Superior Vena Cava, Percutaneous Approach (ICD-10-PCS; 2016-08-05)
PROC: B548ZZA Ultrasonography of Superior Vena Cava, Guidance (ICD-10-PCS; 2016-08-05)
PROC: 02HV33Z Insertion of Infusion Device into Superior Vena Cava, Percutaneous Approach (ICD-10-PCS; 2016-08-16)
PROC: B518ZZA Fluoroscopy of Superior Vena Cava, Guidance (ICD-10-PCS; 2016-08-16)
DX: I13.2 Hypertensive heart and chronic kidney disease with heart failure and with stage 5 chronic kidney disease, or end stage renal disease (principal); I50.33 Acute on chronic diastolic (congestive) heart failure; J96.21 Acute and chronic respiratory failure with hypoxia; G92 Toxic encephalopathy; N17.9 Acute kidney failure, unspecified; R40.20 Unspecified coma; I47.2 Ventricular tachycardia; E87.2 Acidosis; N18.6 End stage renal disease; J96.22 Acute and chronic respiratory failure with hypercapnia; J15.212 Pneumonia due to Methicillin resistant Staphylococcus aureus; I46.9 Cardiac arrest, cause unspecified; J98.11 Atelectasis; N39.0 Urinary tract infection, site not specified; E66.2 Morbid (severe) obesity with alveolar hypoventilation; Z68.42 Body mass index [BMI] 45.0-49.9, adult; N04.9 Nephrotic syndrome with unspecified morphologic changes; E11.21 Type 2 diabetes mellitus with diabetic nephropathy; E11.40 Type 2 diabetes mellitus with diabetic neuropathy, unspecified; E11.319 Type 2 diabetes mellitus with unspecified diabetic retinopathy without macular edema; E11.22 Type 2 diabetes mellitus with diabetic chronic kidney disease; E78.5 Hyperlipidemia, unspecified; I25.10 Atherosclerotic heart disease of native coronary artery without angina pectoris; D63.1 Anemia in chronic kidney disease; E11.42 Type 2 diabetes mellitus with diabetic polyneuropathy; M81.0 Age-related osteoporosis without current pathological fracture; D50.9 Iron deficiency anemia, unspecified; F32.9 Major depressive disorder, single episode, unspecified; K21.9 Gastro-esophageal reflux disease without esophagitis; H70.90 Unspecified mastoiditis, unspecified ear; E87.6 Hypokalemia; E11.65 Type 2 diabetes mellitus with hyperglycemia; K59.00 Constipation, unspecified; F41.9 Anxiety disorder, unspecified; W06.XXXA Fall from bed, initial encounter; Y95 Nosocomial condition; Z79.4 Long term (current) use of insulin; Z87.891 Personal history of nicotine dependence; Z91.11 Patient's noncompliance with dietary regimen; Z91.19 Patient's noncompliance with other medical treatment and regimen; Z91.14 Patient's other noncompliance with medication regimen; Z95.5 Presence of coronary angioplasty implant and graft; Z99.81 Dependence on supplemental oxygen
CPT/HCPCS: 31500; 36556; 36558; 36600; 70450; 70551; 71010; 76937; 77001; 80048; 80053; 80074; 81001; 82140; 82550; 82552; 82570; 82805; 82948; 83605; 83735; 83880; 84100; 84132; 84156; 84165; 84300; 84484; 85007; 85025; 85027; 85384; 85610; 85730; 86038; 86160; 87040; 87070; 87086; 87205; 87641; 90935; 92950; 93005; 93308; 93970; 93971; 93998; 94002; 94003; 94060; 94150; 94640; 94664; 95819; 96374; 96375; 99152; 99153; C1750; C1752; C1769; C9113; C9248; C9399; J0171; J0360; J0461; J0690; J0692; J0696; J1100; J1580; J1644; J1815; J1940; J2020; J2150; J2250; J2270; J2310; J2405; J2550; J2997; J3010; J3370; J3480; J7030; J7050; J7512; J7613; P9047; Q4081

== ENCOUNTER 2016-09-07 23:44 | Inpatient (IN) | payer MEDICAID ==
[~2016-09-07] VITALS: Ht 172.7 cm; Wt 132.2 kg
[2016-09-07 23:00] VITALS: O2SAT 96
[~2016-09-07 23:44] MED LIST changes: +ACET325T PO; -ALPR.25 PO; -AMLO10 PO; +Amitriptyline PO; -BUME1TAB26 PO; +CARV12.5 PO; -CEPH-460 PO; +CLON.1 PO; +CLON.2 PO; +COMMODE 3-IN-11 MIS; +DOCU1CAP39 PO; -FAMO1TAB73 PO; +GETGO ROLLING W1 MI1; -GLIP-158 PO; +HEPA10003 SQ; -HUMALOG SQ; -LANTUS2P SQ; +LEVE250 PO; +LEVEMIR SQ; +LIDO5DIS35 TD; +LIPI80TA PO; +LISI-515 PO; +LISI10TA3 PO; +MINO2.5T PO; +NEUR300C PO; +NIFE10 PO; +NOVORP2 SQ; +NYST15T TOPICAL; +PANT40TA3 PO; +SENN8.6T15 PO; +WHEEMIS3; +hydrALAZINE PO
--- NOTE | 2016-09-07 23:52 | HHI.HP ---
HPI Service [facility] Primary Care Physician No Primary Care Physician Admission Diagnosis Hypoxia, acute respiratory failure . Diagnoses: (1) Hypoxia (2) Pulmonary edema (3) Chronic diastolic congestive heart failure (4) Diabetes (5) HTN (hypertension) (6) ESRD (end stage renal disease) on dialysis (7) Hyperlipemia Chief Complaint: oxygen saturation 60% Travel History International Travel<30 Days: No Contact w/Intl Traveler <30 Da: No Traveled to Known Affected Are: No History of Present Illness Ms. Carnes is a 51 year-old female with a past medical history of CHF, hypertension, diabetes mellitus, and chronic kidney disease with recent prolonged hospitalization starting on July 15, 2016 with recurrent intubation for respiratory failure (x3) who was discharged to [facility] for inpatient rehabilitation on 08/22/2016. While she was [place] receiving rehabilitation, a stroke alert was called on 08/28 with a negative work-up. On 09/06/2016, there was some questionable seizure activity and the patient is currently being evaluated by Dr. Ny for this. Head CT was limited by motion degradation but was grossly stable and not acute. EEG showed mild encephalopathy and some occasional small flat sharp transients and sleep state. On 09/07/2016, a HALICAT was called after the patient's oxygen saturation had decreased to 60% with respiratory distress. The patient's ABGs showed CO2 retention with a PCO2 of 58, oxygen was titrated down after ABGs resulted. The decision was made to transfer the patient to [facility] at least overnight given her history of respiratory failure requiring intubation secondary to CO2 retention. The patient was seen in the ICU. She is having chills and feels warm to touch. Her oral temperature is 99.5. She is confused to date and states that the years 2015 and the President is Obama. She is oriented to self and is able to say that she is in a hospital in [place]. She denies shortness of breath , chest pain, and diarrhea. She reports nausea with vomiting but denies abdominal pain. She says that she does produce urine at times but denies dysuria. She appears to be breathing comfortably on 50% venturi mask. Chest x-ray consistent with pulmonary edema - x-ray personally reviewed and agree with findings. Lasix 40 mg IV was ordered. Review of Systems Except as stated in HPI: all other systems reviewed are Neg Past Family Social History Past Medical History Chronic diastolic CHF Depression HTN DM CKD stage 5 on hemodialysis . Past Surgical History Cardiac catheterization 2016 Permacath placement . Reported Medications Reported Meds & Active Scripts Active [hydrALAZINE] 100 MG Tab 100 Mg PO Q8HR 1 Days Pantoprazole (Pantoprazole Sodium) 40 Mg Tab 40 Mg PO DAILY 1 Days Procardia (Nifedipine) 10 Mg Cap 30 Mg PO Q8HR 1 Days Minoxidil 2.5 Mg Tab 2.5 Mg PO DAILY 1 Days Lidoderm Patch 12 HR (Lidocaine) 5% Patch 1 Patch TD DAILY 1 Days Lisinopril 10 Mg Tab 20 Mg PO DAILY 1 Days Keppra (Levetiracetam) 250 Mg Tab 250 Mg PO Q12HR 1 Days Levemir Inj (Insulin Detemir) 1,000 unit/ 10 ML Vial 20 Units SQ Q12HR 1 Days Heparin Sodium (Heparin Sodium (Porcine)) 10,000 Unit/Ml Inj 5,000 Units SQ Q12HR 1 Days Neurontin (Gabapentin) 300 Mg Cap 300 Mg PO BID 1 Days Ferrous Sulfate 325 Mg Tab 325 Mg PO BID@12,17 1 Days Catapres (Clonidine) 0.2 Mg Tab 0.2 Mg PO Q8HR 1 Days Coreg (Carvedilol) 12.5 Mg Tab 25 Mg PO Q12HR 1 Days Lipitor (Atorvastatin Calcium) 80 Mg Tab 80 Mg PO HS 1 Days Aspirin EC (Aspirin) 81 Mg Tabdr 81 Mg PO DAILY 1 Days [Amitriptyline] 50 MG Tab 50 Mg PO HS 1 Days Acetaminophen 325 Mg Tab 650 Mg PO Q4H PRN 1 Days Wheelchair (Device) 1 Mis Mis 1 Ea .ROUTE DIRECTED Commode 3-in-1 (Device) 1 Mis Mis 1 Ea .ROUTE DIRECTED Walker Rolling/GetGo (Device) 1 Mis Mis 1 Ea .ROUTE DIRECTED Minoxidil 2.5 Mg Tab 2.5 Mg PO DAILY Levemir Inj (Insulin Detemir) 1,000 unit/ 10 ML Vial 14 Units SQ Q12HR 30 Days Senna Lax (Sennosides) 8.6 Mg Tab 8.6 Mg PO Q12HR 30 Days Nystatin Topical (Nystatin) 100,000 unit/gm Cream 1 Applic TOPICAL Q12HR 14 Days Lisinopril 20 Mg Tab 20 Mg PO DAILY 30 Days Hydralazine (Hydralazine HCl) 50 Mg Tab 100 Mg PO Q8HR 30 Days Dok (Docusate Sodium) 100 Mg Cap 100 Mg PO BID 30 Days Catapres (Clonidine) 0.1 Mg Tab 0.1 Mg PO UNSCH PRN 30 Days Catapres (Clonidine) 0.1 Mg Tab 0.2 Mg PO Q8HR 30 Days Novolin R Inj (Insulin Human Regular) 1,000 Unit/10 Ml Vial 1 Injection SQ Q6H 30 Days Pantoprazole (Pantoprazole Sodium) 40 Mg Tab 40 Mg PO DAILY Procardia (Nifedipine) 10 Mg Cap 30 Mg PO Q8HR 30 Days Gabapentin 300 Mg Cap 300 Mg PO BID Ferrous Sulfate 325 Mg Tab 325 Mg PO BID Oxygen tank (Oxygen) 1 Ea Tank 2 Liter GERRY.CANULA CONTINUOUS Oxygen Concentrator Portable Gaseous 2 L/min via Nasal Cannula Continuous For 99 months Reported Nitroglycerin SL (Nitroglycerin) 0.4 Mg Subl 0.4 Mg SL DIRECTED PRN ONE TABLET UNDER THE TONGUE NEEDED FOR CHEST PAIN, MAY REPEAT EVERY FIVE MINUTES FOR A TOTAL OF 3 DOSES OR CALL 911 IF NO RELIEF Hydralazine (Hydralazine HCl) 50 Mg Tab 50 Mg PO TID Take with a meal Atorvastatin (Atorvastatin Calcium) 80 Mg Tab 80 Mg PO HS Amitriptyline (Amitriptyline HCl) 50 Mg Tab 50 Mg PO HS Carvedilol 25 Mg Tab 25 Mg PO BID Aspirin EC (Aspirin) 81 Mg Tabdr 81 Mg PO DAILY Drisdol (Ergocalciferol) 50,000 Unit Cap 50,000 Units PO Q7D ON TUESDAYS . Allergies: Coded Allergies: Lyrica (Verified Allergy, Severe, Anaphylaxis, 07/15/16) *MDRO Multi-Drug Resistant Organism (Verified Adverse Reaction, Unknown, ) MRSA (sputum)-07/20/16 MRSA PCR Screen POSITIVE - 07/18/2016 Active Ordered Medications Current Medications Acetaminophen (Tylenol) 650 mg Q4H PRN PO TEMP > 100.4/Pain 1 - 10; Start 09/08 at 00:00 Ondansetron HCl (Zofran Inj) 4 mg Q6H PRN IVP NAUSEA OR VOMITING; Start at 00:00 Sennosides (Senokot) 17.2 mg Q12H PRN PO CONSTIPATION; Start 09/08/16 at 00:00 Naloxone HCl (Narcan Inj) 0.4 mg UNSCH PRN IV SEE LABEL COMMENTS; Start at 00:00 Miscellaneous Information Patient in critical care unit? Ass... Q361D XX Last administered on 09/08/16 00:15; Start 09/08/16 at 00:15 Chlorhexidine Gluconate (Chlorhexidine 2% Cloth) 3 pack DAILY@04 TOP Last administered on 09/08/16 00:59; Start 09/08/16 at 04:00; Stop 09/12/16 at 04:01 Chlorhexidine Gluconate (Chlorhexidine 2% Cloth) 3 pack UNSCH PRN TOP HYGIENIC CARE; Start 09/08/16 at 00:15; Stop 09/13/16 at 00:00 Dextrose (D50w (Vial) Inj) 25 ml UNSCH PRN IV PUSH HYPOGLYCEMIA-SEE COMMENTS; Start 09/08/16 at 00:00 Glucagon (Glucagon Inj) 1 mg UNSCH PRN OTHER HYPOGLYCEMIA-SEE COMMENTS; Start 09/08/16 at 00:00 Insulin Aspart (NovoLOG SUPPLEMENTAL SCALE) 1 ACHS SLIDING SCALE SQ ; Start at 07:00 Amitriptyline HCl (Elavil) 50 mg HS PO ; Start 09/08/16 at 21:00 Gabapentin (Neurontin) 300 mg BID PO ; Start 09/08/16 at 09:00 Carvedilol (Coreg) 25 mg Q12HR PO ; Start 09/08/16 at 09:00 Atorvastatin Calcium (Lipitor) 80 mg HS PO ; Start 09/08/16 at 21:00 Nifedipine (Procardia) 30 mg Q8HR PO ; Start 09/08/16 at 06:00 Hydralazine HCl (Apresoline) 50 mg Q8HR PO ; Start 09/08/16 at 06:00 Clonidine (Catapres) 0.2 mg Q8HR PO ; Start 09/08/16 at 06:00 Pantoprazole Sodium (Protonix) 40 mg DAILY PO ; Start 09/08/16 at 09:00 Minoxidil (Loniten) 2.5 mg DAILY PO ; Start 09/08/16 at 09:00 Lisinopril (Prinivil) 20 mg DAILY PO ; Start 09/08/16 at 09:00 Nitroglycerin (Nitrostat Sl) 0.4 mg Q5M PRN SL CHEST PAIN; Start 09/08/16 at 00 :15 Ferrous Sulfate (Ferrous Sulfate) 325 mg BID@12,17 PO ; Start 09/08/16 at 12:00 Insulin Detemir (Levemir Inj) 20 units Q12HR SQ ; Start 09/08/16 at 09:00 Lidocaine HCl (Lidoderm 5% Patch.12 Hr) 1 patch DAILY TD ; Start 09/08/16 at 09: 00 Miscellaneous Information 1 HS T-DERMAL ; Start 09/08/16 at 21:00 Heparin Sodium (Porcine) (Heparin Inj) 5,000 units Q8HR SQ ; Start 09/08/16 at 06:00 Prednisone (Deltasone) 2.5 mg DAILY PO ; Start 09/08/16 at 09:00 Levetriacetam (Keppra) 250 mg Q12HR PO ; Start 09/08/16 at 09:00 Furosemide (Lasix Inj) 40 mg ONCE ONCE IV PUSH Last administered on 09/08/16t 00:30; Start 09/08/16 at 00:30; Stop 09/08/16 at 00:33; Status DC Miscellaneous (Pill Splitter) 1 ea UNSCH PRN OTHER SEE LABEL COMMENTS; Start at 00:45 . Family History Reports family history of diabetes mellitus and heart disease . Social History Tobacco: Smoked 1 PPD for at least 10 years - quit smoking 3-4 years ago Alcohol: Denies alcohol use . Physical Exam Vital Signs Vital Signs Date Time Temp Pulse Resp B/P Pulse Ox O2 Delivery O2 Flow Rate FiO2 09/08/16 02:00 81 09/08/16 00:00 97 Venturi Mask 50 09/08/16 00:00 99.5 21 134/62 09/07/16 23:00 6.00 Physical Exam GENERAL: This is a morbidly obese female patient, with chills and some mild confusion. SKIN: No rashes, ecchymoses or lesions. Cool and dry. HEAD: Atraumatic. Normocephalic. EYES: No scleral icterus. No injection or drainage. ENT: Nose without bleeding, purulent drainage. NECK: Trachea midline. No JVD or lymphadenopathy. CARDIOVASCULAR: Regular rate and rhythm with II/ systolic murmur best auscultated at the right sternal border second IC space. RESPIRATORY: Breath sounds diminished with bibasilar crackles, equal bilaterally. No wheezes. GASTROINTESTINAL: Abdomen soft, non-tender, nondistended. No guarding. MUSCULOSKELETAL: Extremities without clubbing, cyanosis, or edema. No calf tenderness. NEUROLOGICAL: Awake and alert to self and place. Motor and sensory grossly within normal limits. Normal speech. . Imaging CXR done at [facility] 09/07/16 - findings c/w pulmonary edema Assessment and Plan Problem List: (1) Acute respiratory failure with hypoxia and hypercapnia ICD Code: J96.01 Status: Acute (2) Hypoxia ICD Code: R09.02 Status: Acute (3) Pulmonary edema ICD Code: J81.1 Status: Acute (4) Chronic diastolic congestive heart failure ICD Code: I50.32 Status: Chronic (5) Diabetes ICD Code: E11.9 Status: Chronic (6) HTN (hypertension) ICD Code: I10 Status: Chronic (7) ESRD (end stage renal disease) on dialysis ICD Code: N18.6 Status: Chronic (8) Hyperlipemia ICD Code: E78.5 Status: Chronic (9) Nausea & vomiting ICD Code: R11.2 Status: Acute (10) Seizure ICD Code: R56.9 Status: Acute Assessment and Plan Ms. Carnes is a 51 year-old female with a past medical history of CHF, hypertension, diabetes mellitus, and chronic kidney disease with recent prolonged hospitalization starting on July 15, 2016 with recurrent intubation for respiratory failure (x3) who was discharged to [facility] for inpatient rehabilitation on 08/22/2016 who was transferred back to the hospital for acute respiratory failure. Acute Hypercapnic Respiratory Failure with Hypoxia Pulmonary Edema Chronic diastolic congestive heart failure: Echocardiogram 07/23 reveals EF 45-50% . No regional motion abnormality. POOL 59 mmHg. Mild TR. - Lasix 40 mg IV push - I and Os q shift - We will check troponin and BNP - Supplemental oxygen titrated to maintain oxygen saturation greater than 92% - Continue Coreg and lisinopril - Repeat ABGs in a.m. - If patient remains stable overnight, consider transfer to medical floor Type 2 diabetes mellitus - Continue Levemir 20 units subcutaneous every 12 hours - Accu-Cheks before meals and at bedtime with NovoLog sliding scale coverage - Hypoglycemia protocol - Monitor trends and blood glucose levels and adjust treatments as indicated End-stage renal disease requiring hemodialysis - Consult Dr. Medley - avoid nephrotoxins History of MRSA pneumonia - completed course of Rocephin and Zyvox - Continue prednisone Hypertension - on multiple antihypertensive medications - continue medications as ordered in rehab except Hydralazine which I decreased from 100 mg q8h to 50 mg q8h because patient has been hypotensive - hold parameters placed on antihypertensives - monitor blood pressure trends and adjust treatment as indicated Hyperlipidemia - continue pravastatin Nausea/vomiting with low grade fever - patient also feels warm to the touch during exam and is having chills - Zofran 4 mg IV q8h - will check CBC, blood cultures, and urine culture to check for a source of infection Possible seizures - continue Keppra as ordered by neurology - EEG 09/07/15 showed mild encephalopathy with some occasional small frontal sharp transients in sleep state - neurology consultation to continue care from [place] DVT prophylaxis - Heparin 5000 units subq q8h Discussed Condition With Dr. Cruz, [employer], Carito RN, and patient Physician Certification 2 Midnight Certification Type: Admission for Inpatient Services Order for Inpatient Services The services are ordered in accordance with Medicare regulations or non- Medicare payer requirements, as applicable. In the case of services not specified as inpatient-only, they are appropriately provided as inpatient services in accordance with the 2-midnight benchmark. Estimated LOS (days): 5 days is the estimated time the patient will need to remain in the hospital, assuming treatment plan goals are met and no additional complications. Post-Hospital Plan: Inpatient Rehab Demi Sosa Sep 07, 2016 23:52
[2016-09-08] VITALS (16 sets, daily range): BP systolic 110–155; BP diastolic 56–72; PULSE 66–83; RESP 15–26; TEMP 97.7–99.8; O2SAT 93–97
[2016-09-08] MEDS ORDERED: DEXTROSE 50% IN WATER 50 ML VIAL(D50) IV PUSH PRN
[2016-09-08] MEDS ORDERED: GLUCAGON 1 MG/ML VIAL OTHER PRN
[2016-09-08] MEDS ORDERED: SENNOSIDES 8.6 MG TAB PO PRN
[2016-09-08] MEDS ORDERED: NALOXONE HCL 0.4 MG/ML AMP IV PRN
[2016-09-08] MEDS ORDERED: ACETAMINOPHEN 325 MG TAB PO PRN
[2016-09-08] MEDS ORDERED: ONDANSETRON HCL 4 MG/2 ML VIAL IVP PRN
[2016-09-08] MEDS ORDERED: NITROGLYCERIN 0.4 MG SL 25 TABS/BTL SL PRN (00:15)
[2016-09-08] MEDS ORDERED: CHLORHEXIDINE GLUCONATE 2 % 1 PACK (2 CLOTHS)(extra cloths) TOP PRN (00:15)
[2016-09-08] MEDS ORDERED: FUROSEMIDE 40 MG/4 ML VIAL IV PUSH ONE (00:30)
[2016-09-08] MEDS ORDERED: PILL SPLITTER OTHER PRN (00:45)
[2016-09-08] MEDS: CHLORHEXIDINE GLUCONATE 2 % 1 PACK (2 CLOTHS)(taper/protocol) TOP SCH (00:59)
[2016-09-08 02:39] LABS: AUTOMATED NEUTROPHIL # 4.9 TH/MM3 (1.8-7.7); BASOPHIL # 0.1 TH/MM3 (0-0.2); BASOPHIL % 0.9 % (0.0-2.0); EOSINOPHIL # 0.2 TH/MM3 (0-0.4); EOSINOPHIL % 3.3 % (0.0-4.0); HEMATOCRIT 27.9 % (35.0-46.0); LYMPH % 10.4 % (9.0-44.0); LYMPHOCYTE # 0.7 TH/MM3 (1.0-4.8); MEAN CELL VOLUME 70.1 FL (80.0-100.0); MEAN CORPUSCULAR HEMOGLOBIN 21.5 PG (27.0-34.0); MEAN CORPUSCULAR HGB CONC 30.6 % (32.0-36.0); MONO % 9.8 % (0.0-8.0); NEUT % 75.6 % (16.0-70.0); PLATELET COUNT 223 TH/MM3 (150-450); RED BLOOD COUNT 3.98 MIL/MM3 (4.00-5.30); RED CELL DISTRIBUTION WIDTH 17.5 % (11.6-17.2); WHITE BLOOD COUNT 6.5 TH/MM3 (4.0-11.0)
[2016-09-08 02:41] LABS: HEMO FLAGS AUTO DIFF
[2016-09-08 02:43] LABS: ALKALINE PHOSPHATASE 77 U/L (45-117); ALT (GPT) 10 U/L (10-53); ANION GAP 9 MEQ/L (5-15); AST (GOT) 9 U/L (15-37); BICARBONATE 29.4 MEQ/L (21.0-32.0); BLOOD UREA NITROGEN 38 MG/DL (7-18); CHLORIDE 96 MEQ/L (98-107); GLOMERULAR FILTRATION RATE 10 ML/MIN (>89); POTASSIUM 4.4 MEQ/L (3.5-5.1); SODIUM (NA) 134 MEQ/L (136-145); TOTAL BILIRUBIN ADULT 0.4 MG/DL (0.2-1.0)
[2016-09-08 04:34] LABS: OVALOCYTES 1+ (NORMAL); SCAN/DIFF AUTO DIFF CONFIRMED
[2016-09-08] MEDS: HEPARIN SODIUM - SQ 10,000 UNITS/ML VIAL SQ SCH ×3 (05:27→22:36)
[2016-09-08] MEDS: cloNIDine HCL 0.2 MG TAB PO SCH ×3 (05:27→22:36)
[2016-09-08] MEDS: hydrALAZINE HCL 50 MG TAB PO SCH ×3 (05:27→22:36)
[2016-09-08 06:35] LABS: BLOOD GAS CARBOXYHEMOGLOBIN 2.1 % (0-4); BLOOD GAS HCO3 29 mmol/L (22-26); BLOOD GAS METHEMOGLOBIN 1.4 % (0-2); BLOOD GAS O2 HGB SATURATION 92 % (90-100); BLOOD GAS OXYGEN CONTENT 10.4 Vol % (12.0-20.0); BLOOD GAS PCO2 57 mmHg (38-42); BLOOD GAS PO2 81 mmHg (61-120); BLOOD GAS TOTAL HGB 7.9 G/DL (12.0-16.0); TEMP CORR TO 98.6
[2016-09-08 06:36] LABS: DRAW SITE RT RADIAL; FIO2 50 %; LITER FLOW 6 L/M; NUMBER OF ARTERIAL PUNCTURES 1; OXYGEN DEVICE Venti Mask; STAT NO; ULNAR PULSE PRESENT
[2016-09-08] MEDS: NIFEdipine 10 MG CAP PO SCH ×3 (06:46→22:36)
[2016-09-08] MEDS: INSULIN ASPART SUPPLEMENTAL SCALE SQ SCH ×3 (06:50→21:00)
[2016-09-08] MEDS ORDERED: predniSONE 5 MG TAB PO SCH (09:00)
[2016-09-08] MEDS: PANTOPRAZOLE SOD 40 MG DELAYED RELEASE TAB PO SCH (09:15)
[2016-09-08] MEDS: GABAPENTIN 300 MG CAP PO SCH ×2 (09:16→21:42)
[2016-09-08] MEDS: LISINOPRIL 20 MG TAB PO SCH (09:16)
[2016-09-08] MEDS: MINOXIDIL 2.5 MG TAB PO SCH (09:17)
[2016-09-08] MEDS: CARVEDILOL 12.5 MG TAB PO SCH ×2 (09:17→21:42)
[2016-09-08] MEDS: levETIRAcetam 250 MG TAB PO SCH ×2 (09:17→21:42)
[2016-09-08] MEDS: INSULIN DETEMIR 100 UNITS/ML VIAL SQ SCH ×2 (09:18→21:43)
[2016-09-08] MEDS: LIDOCAINE HCL 5% PATCH TD SCH (09:22)
--- NOTE | 2016-09-08 09:34 | HHI.PR ---
Subjective Remarks Patient seen in follow up for respiratory failure. She states she does not remember how she ended up here. She is on a nonrebreather this morning. Stable. No chest pain. Objective Vitals Vital Signs Date Time Temp Pulse Resp B/P Pulse Ox O2 Delivery O2 Flow Rate FiO2 09/08/16 06:00 74 09/08/16 04:00 78 09/08/16 04:00 99.8 78 16 124/63 93 09/08/16 02:00 81 09/08/16 00:00 97 Venturi Mask 50 09/08/16 00:00 99.5 83 21 134/62 97 09/08/16 00:00 83 09/07/16 23:00 96 Venturi Mask 6.00 50 I/O 09/07/16 09/07/16 09/07/16 09/08/16 09/08/16 09/08/16 07:00 15:00 23:00 07:00 15:00 23:00 Intake Total 30 ml Output Total 0 ml Balance 30 ml Intake Oral 30 ml Output Urine Total 0 ml # Bowel Movements 1 Result Diagram: 09/07/16 2345 09/07/16 2345 Objective Remarks GENERAL: Obese female in no acute distress CARDIOVASCULAR: Normal rate and regular rhythm without murmurs, gallops, or rubs. RESPIRATORY: Respiratory effort is fair. Diminished bilaterally at the bases. GASTROINTESTINAL: Abdomen soft, non-tender, non-distended. Normal active bowel sounds MUSCULOSKELETAL: Extremities without cyanosis, or edema. NEURO: Alert & Oriented to person and place. Moves all ext x4 PSYCH: Calm. A/P Problem List: (1) Acute respiratory failure with hypoxia and hypercapnia ICD Code: J96.01 Status: Acute (2) Hypoxia ICD Code: R09.02 Status: Acute (3) Pulmonary edema ICD Code: J81.1 Status: Acute (4) Chronic diastolic congestive heart failure ICD Code: I50.32 Status: Chronic (5) Diabetes ICD Code: E11.9 Status: Chronic (6) HTN (hypertension) ICD Code: I10 Status: Chronic (7) ESRD (end stage renal disease) on dialysis ICD Code: N18.6 Status: Chronic (8) Hyperlipemia ICD Code: E78.5 Status: Chronic (9) Nausea & vomiting ICD Code: R11.2 Status: Acute (10) Seizure ICD Code: R56.9 Status: Acute Assessment and Plan 51 year-old female with a past medical history of CHF, hypertension, diabetes mellitus, and chronic kidney disease with recent prolonged hospitalization starting on July 15, 2016 with recurrent intubation for respiratory failure ( x3) who was discharged to [facility] for inpatient rehabilitation on 2016 who was transferred back to the hospital 09/07/16 for acute respiratory failure. Acute Hypercapnic Respiratory Failure with Hypoxia Pulmonary Edema Chronic diastolic congestive heart failure: Echocardiogram 07/23 reveals EF 45-50% . No regional motion abnormality. POOL 59 mmHg. Mild TR. - She is retaining CO2. - Currently improving. - Consult pulmonology. I wonder if she has sleep apnea. - Supplemental oxygen titrate to keep oxygen sats around 92%. Type 2 diabetes mellitus - Continue Levemir 20 units subcutaneous every 12 hours - Accu-Cheks before meals and at bedtime with NovoLog sliding scale coverage - Hypoglycemia protocol - Monitor trends and blood glucose levels and adjust treatments as indicated End-stage renal disease requiring hemodialysis -Nephrology following to continue hemodialysis Hypertension: On Coreg 25mg BID, hydralazine 100mg TID, lisinopril 20 daily, clonidine 0.2 mg every 8 hours,Nifedipine at 30 mg by mouth every 8 hours and Minoxidil 2.5mg daily Continue to monitor blood pressure and adjust medications as necessary. Controlled Hyperlipidemia - continue pravastatin Possible seizures - continue Keppra as ordered by neurology - EEG 09/07/15 showed mild encephalopathy with some occasional small frontal sharp transients in sleep state - neurology consulted. DVT prophylaxis - Heparin 5000 units subq q8h Problem Qualifiers (1) HTN (hypertension): Qualified Code: I10 - Essential hypertension Carey Coombs MD Sep 08, 2016 09:34
--- NOTE | 2016-09-08 09:42 | PD.CONS ---
History of Present Illness Service Neurology Consult Requested By medical Reason for Consult sz/diplopia Primary Care Physician No Primary Care Physician History of Present Illness 51-year-old female from [facility], here with her spouse who was admitted in 06/2016 for dyspnea. complicated medical course. icu to rehab now back to icu. noted to have hypercapnic resp failure and is now on dialysis. at rehab had a possible sz. no hx of sz's. this am doing well. eating breakfast. no zheng. recognizes me. pleasant, calm. no diplopia. from previous consult: Medical history significant for CHF, depression, HTN, dm, and ckd stage 5 with prolonged hospital stay secondary to recurrent intubation, status post cardiac arrest. was in chf when she was hospitalized. seen by neuro during that time. mri brain did not show any acute stroke. During hospitalization patient did require ICU stay for acute respiratory failure requiring multiple intubations, patient also started hemodialysis has had episodes of diplopia over the past 2 years, horizontal, transient. she has noticed her left leg has gotten weaker since being hospitalized. was slightly weaker before. does use an electric scooter when she is at the store. she denies any vision loss/blurry vision, vertigo, dysphagia, sensory changes. no known hx of any demyelinating d/o. states she had a "stroke" years ago but could not elaborate on symptoms. she does not have any residuals from it. has been on prednisone while she has been hospitalized. Review of Systems Except as stated in HPI: as above and admit hp Past Family Social History Allergies: Coded Allergies: Lyrica (Verified Allergy, Severe, Anaphylaxis, 07/15/16) *MDRO Multi-Drug Resistant Organism (Verified Adverse Reaction, Unknown, ) MRSA (sputum)-07/20/16 MRSA PCR Screen POSITIVE - 07/18/2016 Past Medical History Chronic diastolic CHF, depression, HTN, dm, and ckd stage 5 on hemodialysis Past Surgical History Cardiac catheterization 2016 Permacath placement Family History Denies pertinent family medical history including diabetes mellitus, CAD, hypertension or cancer Social History Denies EtOH use tobacco use or illicit drug use Review of Systems All other ROS: ROS reviewed as documented in chart Review of Systems All other ROS: ROS reviewed as documented in chart Past Family Social History Allergies: Coded Allergies: Lyrica (Verified Allergy, Severe, Anaphylaxis, 07/15/16) *MDRO Multi-Drug Resistant Organism (Verified Adverse Reaction, Unknown, ) MRSA (sputum)-07/20/16 MRSA PCR Screen POSITIVE - 07/18/2016 Active Ordered Medications Current Medications Medications (Trade) Dose Ordered Sig/Christa Route Start Time Stop Time Status Last Admin (Tylenol) 650 mg Q4H PRN PO 09/08/16 00:00 (Zofran Inj) 4 mg Q6H PRN IVP 09/08/16 00:00 (Senokot) 17.2 mg Q12H PRN PO 09/08/16 00:00 (Narcan Inj) 0.4 mg UNSCH PRN IV 09/08/16 00:00 Miscellaneous Information Patient in critical care unit? Ass... Q361D XX 09/08/16 00:15 09/08/16 00:15 (Chlorhexidine 2% Cloth) 3 pack DAILY@04 TOP 09/08/16 04:00 09/12/16 04:01 09/08/16 00:59 (Chlorhexidine 2% Cloth) 3 pack UNSCH PRN TOP 09/08/16 00:15 09/13/16 00:00 (D50w (Vial) Inj) 25 ml UNSCH PRN IV PUSH 09/08/16 00:00 (Glucagon Inj) 1 mg UNSCH PRN OTHER 09/08/16 00:00 (Elavil) 50 mg HS PO 09/08/16 21:00 (Neurontin) 300 mg BID PO 09/08/16 09:00 09/08/16 09:16 (Coreg) 25 mg Q12HR PO 09/08/16 09:00 09/08/16 09:17 (Lipitor) 80 mg HS PO 09/08/16 21:00 (Procardia) 30 mg Q8HR PO 09/08/16 06:00 09/08/16 06:46 (Apresoline) 50 mg Q8HR PO 09/08/16 06:00 09/08/16 05:27 (Catapres) 0.2 mg Q8HR PO 09/08/16 06:00 09/08/16 05:27 (Protonix) 40 mg DAILY PO 09/08/16 09:00 09/08/16 09:15 (Loniten) 2.5 mg DAILY PO 09/08/16 09:00 09/08/16 09:17 (Prinivil) 20 mg DAILY PO 09/08/16 09:00 09/08/16 09:16 (Nitrostat Sl) 0.4 mg Q5M PRN SL 09/08/16 00:15 (Ferrous Sulfate) 325 mg BID@12,17 PO 09/08/16 12:00 (Levemir Inj) 20 units Q12HR SQ 09/08/16 09:00 09/08/16 09:18 (Lidoderm 5% Patch.12 Hr) 1 patch DAILY TD 09/08/16 09:00 09/08/16 09:22 Miscellaneous Information 1 HS T-DERMAL 09/08/16 21:00 (Heparin Inj) 5,000 units Q8HR SQ 09/08/16 06:00 09/08/16 05:27 (Deltasone) 2.5 mg DAILY PO 09/08/16 09:00 09/08/16 09:15 (Keppra) 250 mg Q12HR PO 09/08/16 09:00 09/08/16 09:17 (Pill Splitter) 1 ea UNSCH PRN OTHER 09/08/16 00:45 Exam I&O / VS 09/07/16 09/07/16 09/08/16 15:00 23:00 07:00 Intake Total 30 ml Output Total 0 ml Balance 30 ml Intake Oral 30 ml Output Urine Total 0 ml # Bowel Movements 1 Vital Signs Date Time Temp Pulse Resp B/P Pulse Ox O2 Delivery O2 Flow Rate FiO2 09/08/16 06:00 74 09/08/16 04:00 78 09/08/16 04:00 99.8 78 16 124/63 93 09/08/16 02:00 81 09/08/16 00:00 97 Venturi Mask 50 09/08/16 00:00 99.5 83 21 134/62 97 09/08/16 00:00 83 09/07/16 23:00 96 Venturi Mask 6.00 50 General: Alert and Oriented, No acute distress Eye: EOMI Respiratory: Non-labored respirations, BS equal Cardiology: Normal rate Musculoskeletal: ROM, Swelling Neurologic: Alert Psychiatric: Cooperative, Appropriate mood & affect Exam Comments ox2. not to date, follows, pleasant, calm. obese, follows, articulate, eomi, ou , vff, no ptosis, face sym, 1-2+le edema, msr 1-2+, left leg 4-/5, no clonus, reduced in pin legs, planter flexor Review/Management Diagnosis/Plan: (1) Seizure Plan: likely 2/2 metabolic changes lowered threshold with renal failure and resp failure csf studies reviewed; +ocb but serum/csf; need to follow up outpatient; may need vep's done when stable continue keppra/gabapentin will follow peripherally (2) Acute respiratory failure with hypoxia and hypercapnia Plan: main issue; improved (3) Cervical spondylosis Plan: suspect her recurrent hypercapnia is related to obesity/chf/renal failure but has mild cord compression which could affect ventilation; will get nsx opinion on decompression, although note she is not the best candidate (4) DM neuropathies (5) Hypoventilation associated with obesity syndrome (6) ESRD (end stage renal disease) on dialysis Problem Qualifiers (1) Cervical spondylosis: Qualified Code: M47.812 - Spondylosis of cervical region without myelopathy or radiculopathy (2) DM neuropathies: Fredy Ny MD Sep 08, 2016 09:42
--- NOTE | 2016-09-08 12:39 | PD.CONS ---
HPI Service Nephrology Consult Requested By Dr. Sosa Reason for Consult ESRD management Primary Care Physician No Primary Care Physician History of Present Illness Patient is a 51-year-old morbidly obese female with end-stage renal disease, CHF , respiratory failure who had her dialysis yesterday and then in the evening became somnolent, lethargic and at first that there was a questionable seizures denies respiratory problems got aggravated with the hypoxemia requiring transfer to the intensive care unit, she has several unexplained respiratory failure episodes, she was suspected of pickwickian syndrome, sleep apnea. She is arousable but is very lethargic. Review of Systems Constitutional: COMPLAINS OF: Fatigue Neurologic: COMPLAINS OF: Abnormal gait, Seizures Past Family Social History Allergies: Coded Allergies: Lyrica (Verified Allergy, Severe, Anaphylaxis, 07/15/16) *MDRO Multi-Drug Resistant Organism (Verified Adverse Reaction, Unknown, ) MRSA (sputum)-07/20/16 MRSA PCR Screen POSITIVE - 07/18/2016 Past Medical History Chronic diastolic CHF Depression HTN DM CKD stage 5 on hemodialysis Multiple episodes of respiratory failure requiring intubation Possible pickwickian syndrome Past Surgical History Cardiac catheterization 2016 Permacath placement Reported Medications Reported Meds & Active Scripts Active [hydrALAZINE] 100 MG Tab 100 Mg PO Q8HR 1 Days Pantoprazole (Pantoprazole Sodium) 40 Mg Tab 40 Mg PO DAILY 1 Days Procardia (Nifedipine) 10 Mg Cap 30 Mg PO Q8HR 1 Days Minoxidil 2.5 Mg Tab 2.5 Mg PO DAILY 1 Days Lidoderm Patch 12 HR (Lidocaine) 5% Patch 1 Patch TD DAILY 1 Days Lisinopril 10 Mg Tab 20 Mg PO DAILY 1 Days Keppra (Levetiracetam) 250 Mg Tab 250 Mg PO Q12HR 1 Days Levemir Inj (Insulin Detemir) 1,000 unit/ 10 ML Vial 20 Units SQ Q12HR 1 Days Heparin Sodium (Heparin Sodium (Porcine)) 10,000 Unit/Ml Inj 5,000 Units SQ Q12HR 1 Days Neurontin (Gabapentin) 300 Mg Cap 300 Mg PO BID 1 Days Ferrous Sulfate 325 Mg Tab 325 Mg PO BID@12,17 1 Days Catapres (Clonidine) 0.2 Mg Tab 0.2 Mg PO Q8HR 1 Days Coreg (Carvedilol) 12.5 Mg Tab 25 Mg PO Q12HR 1 Days Lipitor (Atorvastatin Calcium) 80 Mg Tab 80 Mg PO HS 1 Days Aspirin EC (Aspirin) 81 Mg Tabdr 81 Mg PO DAILY 1 Days [Amitriptyline] 50 MG Tab 50 Mg PO HS 1 Days Acetaminophen 325 Mg Tab 650 Mg PO Q4H PRN 1 Days Wheelchair (Device) 1 Mis Mis 1 Ea .ROUTE DIRECTED Commode 3-in-1 (Device) 1 Mis Mis 1 Ea .ROUTE DIRECTED Walker Rolling/GetGo (Device) 1 Mis Mis 1 Ea .ROUTE DIRECTED Minoxidil 2.5 Mg Tab 2.5 Mg PO DAILY Levemir Inj (Insulin Detemir) 1,000 unit/ 10 ML Vial 14 Units SQ Q12HR 30 Days Senna Lax (Sennosides) 8.6 Mg Tab 8.6 Mg PO Q12HR 30 Days Nystatin Topical (Nystatin) 100,000 unit/gm Cream 1 Applic TOPICAL Q12HR 14 Days Lisinopril 20 Mg Tab 20 Mg PO DAILY 30 Days Hydralazine (Hydralazine HCl) 50 Mg Tab 100 Mg PO Q8HR 30 Days Dok (Docusate Sodium) 100 Mg Cap 100 Mg PO BID 30 Days Catapres (Clonidine) 0.1 Mg Tab 0.1 Mg PO UNSCH PRN 30 Days Catapres (Clonidine) 0.1 Mg Tab 0.2 Mg PO Q8HR 30 Days Novolin R Inj (Insulin Human Regular) 1,000 Unit/10 Ml Vial 1 Injection SQ Q6H 30 Days Pantoprazole (Pantoprazole Sodium) 40 Mg Tab 40 Mg PO DAILY Procardia (Nifedipine) 10 Mg Cap 30 Mg PO Q8HR 30 Days Gabapentin 300 Mg Cap 300 Mg PO BID Ferrous Sulfate 325 Mg Tab 325 Mg PO BID Oxygen tank (Oxygen) 1 Ea Tank 2 Liter GERRY.CANULA CONTINUOUS Oxygen Concentrator Portable Gaseous 2 L/min via Nasal Cannula Continuous For 99 months Reported Nitroglycerin SL (Nitroglycerin) 0.4 Mg Subl 0.4 Mg SL DIRECTED PRN ONE TABLET UNDER THE TONGUE NEEDED FOR CHEST PAIN, MAY REPEAT EVERY FIVE MINUTES FOR A TOTAL OF 3 DOSES OR CALL 911 IF NO RELIEF Hydralazine (Hydralazine HCl) 50 Mg Tab 50 Mg PO TID Take with a meal Atorvastatin (Atorvastatin Calcium) 80 Mg Tab 80 Mg PO HS Amitriptyline (Amitriptyline HCl) 50 Mg Tab 50 Mg PO HS Carvedilol 25 Mg Tab 25 Mg PO BID Aspirin EC (Aspirin) 81 Mg Tabdr 81 Mg PO DAILY Drisdol (Ergocalciferol) 50,000 Unit Cap 50,000 Units PO Q7D ON TUESDAYS Active Ordered Medications Current Medications Medications (Trade) Dose Ordered Sig/Christa Route Start Time Stop Time Status Last Admin (Tylenol) 650 mg Q4H PRN PO 09/08/16 00:00 (Zofran Inj) 4 mg Q6H PRN IVP 09/08/16 00:00 (Senokot) 17.2 mg Q12H PRN PO 09/08/16 00:00 (Narcan Inj) 0.4 mg UNSCH PRN IV 09/08/16 00:00 Miscellaneous Information Patient in critical care unit? Ass... Q361D XX 09/08/16 00:15 09/08/16 00:15 (Chlorhexidine 2% Cloth) 3 pack DAILY@04 TOP 09/08/16 04:00 09/12/16 04:01 09/08/16 00:59 (Chlorhexidine 2% Cloth) 3 pack UNSCH PRN TOP 09/08/16 00:15 09/13/16 00:00 (D50w (Vial) Inj) 25 ml UNSCH PRN IV PUSH 09/08/16 00:00 (Glucagon Inj) 1 mg UNSCH PRN OTHER 09/08/16 00:00 (Elavil) 50 mg HS PO 09/08/16 21:00 (Neurontin) 300 mg BID PO 09/08/16 09:00 09/08/16 09:16 (Coreg) 25 mg Q12HR PO 09/08/16 09:00 09/08/16 09:17 (Lipitor) 80 mg HS PO 09/08/16 21:00 (Procardia) 30 mg Q8HR PO 09/08/16 06:00 09/08/16 06:46 (Apresoline) 50 mg Q8HR PO 09/08/16 06:00 09/08/16 05:27 (Catapres) 0.2 mg Q8HR PO 09/08/16 06:00 09/08/16 05:27 (Protonix) 40 mg DAILY PO 09/08/16 09:00 09/08/16 09:15 (Loniten) 2.5 mg DAILY PO 09/08/16 09:00 09/08/16 09:17 (Prinivil) 20 mg DAILY PO 09/08/16 09:00 09/08/16 09:16 (Nitrostat Sl) 0.4 mg Q5M PRN SL 09/08/16 00:15 (Ferrous Sulfate) 325 mg BID@12,17 PO 09/08/16 12:00 (Levemir Inj) 20 units Q12HR SQ 09/08/16 09:00 09/08/16 09:18 (Lidoderm 5% Patch.12 Hr) 1 patch DAILY TD 09/08/16 09:00 09/08/16 09:22 Miscellaneous Information 1 HS T-DERMAL 09/08/16 21:00 (Heparin Inj) 5,000 units Q8HR SQ 09/08/16 06:00 09/08/16 05:27 (Deltasone) 2.5 mg DAILY PO 09/08/16 09:00 09/08/16 09:15 (Keppra) 250 mg Q12HR PO 09/08/16 09:00 09/08/16 09:17 (Pill Splitter) 1 ea UNSCH PRN OTHER 09/08/16 00:45 Family History Noncontributory Social History As previously noted Physical Exam Vital Signs Vital Signs Date Time Temp Pulse Resp B/P Pulse Ox O2 Delivery O2 Flow Rate FiO2 09/08/16 10:14 94 Venturi Mask 50 09/08/16 08:00 Venturi Mask 6.00 50 09/08/16 06:00 74 09/08/16 04:00 78 09/08/16 04:00 99.8 78 16 124/63 93 09/08/16 02:00 81 09/08/16 00:00 97 Venturi Mask 50 09/08/16 00:00 99.5 83 21 134/62 97 09/08/16 00:00 83 09/07/16 23:00 96 Venturi Mask 6.00 50 Physical Exam GENERAL: Well-nourished, well-developed morbidly obese patient. SKIN: Warm and dry. HEAD: Normocephalic. EYES: No scleral icterus. No injection or drainage. NECK: Supple, trachea midline. No JVD or lymphadenopathy. CARDIOVASCULAR: Regular rate and rhythm without murmurs, gallops, or rubs. RESPIRATORY: Breath sounds diminished at bases GASTROINTESTINAL: Abdomen soft, non-tender, nondistended. EXTREMITIES: No cyanosis, 1+ edema. NEUROLOGICAL: Obtunded and slow Laboratory Laboratory Tests Test 09/07/16 09/07/16 09/08/16 23:30 23:45 06:15 Nasal Screen MRSA (PCR) NEGATIVE White Blood Count 6.5 Red Blood Count 3.98 Hemoglobin 8.5 Hematocrit 27.9 Mean Corpuscular Volume 70.1 Mean Corpuscular Hemoglobin 21.5 Mean Corpuscular Hemoglobin 30.6 Concent Red Cell Distribution Width 17.5 Platelet Count 223 Mean Platelet Volume 8.8 Neutrophils (%) (Auto) 75.6 Lymphocytes (%) (Auto) 10.4 Monocytes (%) (Auto) 9.8 Eosinophils (%) (Auto) 3.3 Basophils (%) (Auto) 0.9 Neutrophils # (Auto) 4.9 Lymphocytes # (Auto) 0.7 Monocytes # (Auto) 0.6 Eosinophils # (Auto) 0.2 Basophils # (Auto) 0.1 CBC Comment AUTO DIFF Differential Comment AUTO DIFF CONFIRMED Ovalocytes 1+ Sodium Level 134 Potassium Level 4.4 Chloride Level 96 Carbon Dioxide Level 29.4 Anion Gap 9 Blood Urea Nitrogen 38 Creatinine 4.81 Estimat Glomerular Filtration 10 Rate Random Glucose 143 Calcium Level 8.5 Total Bilirubin 0.4 Aspartate Amino Transf 9 (AST/SGOT) Alanine Aminotransferase 10 (ALT/SGPT) Alkaline Phosphatase 77 Troponin I 0.05 B-Type Natriuretic Peptide 18 Total Protein 6.9 Albumin 3.1 Blood Gas Puncture Site RT RADIAL Blood Gas Patient Temperature 98.6 Blood Gas HCO3 29 Blood Gas Base Excess 3.0 Blood Gas Oxygen Saturation 92 Arterial Blood pH 7.32 Arterial Blood Partial 57 Pressure CO2 Arterial Blood Partial 81 Pressure O2 Arterial Blood Oxygen Content 10.4 Arterial Blood 2.1 Carboxyhemoglobin Arterial Blood Methemoglobin 1.4 Blood Gas Hemoglobin 7.9 Oxygen Delivery Device Venti Mask Blood Gas Liter Flow 6 Blood Gas Inspired Oxygen 50 Date/Time Procedure Status Source Growth 09/08/16 04:41 Aerobic Blood Culture Received Blood Peripheral Pending 09/08/16 04:41 Anaerobic Blood Culture Received Blood Peripheral Pending Result Diagram: 09/07/16 5514 09/07/16 234 Assessment and Plan Problem List: (1) ESRD (end stage renal disease) on dialysis Plan: Patient has received her dialysis yesterday and tolerated well, ultrafiltration was 5 L She continued to have respiratory problem and hypoventilation syndrome We will continue to observe and hemodialysis will be done on Friday and Friday Dr. Medley will follow in the morning (2) HTN (hypertension) Plan: Continue monitor while in intensive care unit (3) Seizure Plan: Neurology following (4) Hypoxia Plan: Possibly related to hypoventilation syndrome (5) Acute respiratory failure with hypoxia and hypercapnia Plan: She has several documented episodes (6) Hypoventilation associated with obesity syndrome Plan: Closely observe in intensive care unit (7) DM neuropathies Plan: Continue to monitor Problem Qualifiers (1) HTN (hypertension): Qualified Code: I10 - Essential hypertension (2) DM neuropathies: Ebony Garcia MD Sep 08, 2016 12:39
--- NOTE | 2016-09-08 13:00 | PD.CONS ---
History of Present Illness Service Neurosurgery Consult Requested By Dr Ny Reason for Consult cervical stenosis Primary Care Physician Diagnoses: History of Present Illness Ms Carnes is a 51 year old female admitted for respiratory failure. Briefly , she has a past medical history significant for CHF, hypertension, diabetes, chronic kidney disease, and cervical spondylosis. She was recently hospitalized for respiratory failure in June 2016. She was ultimately discharged to [facility] for rehabilitation on 08/22/16. On 08/28/16, she experienced altered mental status and a stroke alert was called. The workup was negative for any acute vascular or ischemic event, although the head CT was limited by motion artifact. Her EEG showed encephalopathy. On 09/07/16, the patient experienced respiratory distress. She had an abnormal ABG with hypercapnia with PCO2 58. She was reevaluated by neurology. Neurosurgery has been consulted for a surgical opinion to determine whether cervical stenosis can contribute to her respiratory distress. Currently the patient denies any neck or back pain. She denies any weakness. Review of Systems Constitutional: DENIES: Fever Eyes: DENIES: Blurred vision, Photosensitivity, Double Vision Respiratory: COMPLAINS OF: Shortness of breath Cardiovascular: DENIES: Chest pain Gastrointestinal: DENIES: Abdominal pain Musculoskeletal: DENIES: Back pain, Neck pain Neurologic: COMPLAINS OF: Seizures, DENIES: Abnormal gait Past Family Social History Allergies: Coded Allergies: Lyrica (Verified Allergy, Severe, Anaphylaxis, 07/15/16) *MDRO Multi-Drug Resistant Organism (Verified Adverse Reaction, Unknown, ) MRSA (sputum)-07/20/16 MRSA PCR Screen POSITIVE - 07/18/2016 Past Medical History CHF Depression HTN DM CKD stage 5 on hemodialysis Past Surgical History Cardiac catheterization 2016 Permacath placement Reported Medications Reported Meds & Active Scripts Active [hydrALAZINE] 100 MG Tab 100 Mg PO Q8HR 1 Days Pantoprazole (Pantoprazole Sodium) 40 Mg Tab 40 Mg PO DAILY 1 Days Procardia (Nifedipine) 10 Mg Cap 30 Mg PO Q8HR 1 Days Minoxidil 2.5 Mg Tab 2.5 Mg PO DAILY 1 Days Lidoderm Patch 12 HR (Lidocaine) 5% Patch 1 Patch TD DAILY 1 Days Lisinopril 10 Mg Tab 20 Mg PO DAILY 1 Days Keppra (Levetiracetam) 250 Mg Tab 250 Mg PO Q12HR 1 Days Levemir Inj (Insulin Detemir) 1,000 unit/ 10 ML Vial 20 Units SQ Q12HR 1 Days Heparin Sodium (Heparin Sodium (Porcine)) 10,000 Unit/Ml Inj 5,000 Units SQ Q12HR 1 Days Neurontin (Gabapentin) 300 Mg Cap 300 Mg PO BID 1 Days Ferrous Sulfate 325 Mg Tab 325 Mg PO BID@12,17 1 Days Catapres (Clonidine) 0.2 Mg Tab 0.2 Mg PO Q8HR 1 Days Coreg (Carvedilol) 12.5 Mg Tab 25 Mg PO Q12HR 1 Days Lipitor (Atorvastatin Calcium) 80 Mg Tab 80 Mg PO HS 1 Days Aspirin EC (Aspirin) 81 Mg Tabdr 81 Mg PO DAILY 1 Days [Amitriptyline] 50 MG Tab 50 Mg PO HS 1 Days Acetaminophen 325 Mg Tab 650 Mg PO Q4H PRN 1 Days Wheelchair (Device) 1 Mis Mis 1 Ea .ROUTE DIRECTED Commode 3-in-1 (Device) 1 Mis Mis 1 Ea .ROUTE DIRECTED Walker Rolling/GetGo (Device) 1 Mis Mis 1 Ea .ROUTE DIRECTED Minoxidil 2.5 Mg Tab 2.5 Mg PO DAILY Levemir Inj (Insulin Detemir) 1,000 unit/ 10 ML Vial 14 Units SQ Q12HR 30 Days Senna Lax (Sennosides) 8.6 Mg Tab 8.6 Mg PO Q12HR 30 Days Nystatin Topical (Nystatin) 100,000 unit/gm Cream 1 Applic TOPICAL Q12HR 14 Days Lisinopril 20 Mg Tab 20 Mg PO DAILY 30 Days Hydralazine (Hydralazine HCl) 50 Mg Tab 100 Mg PO Q8HR 30 Days Dok (Docusate Sodium) 100 Mg Cap 100 Mg PO BID 30 Days Catapres (Clonidine) 0.1 Mg Tab 0.1 Mg PO UNSCH PRN 30 Days Catapres (Clonidine) 0.1 Mg Tab 0.2 Mg PO Q8HR 30 Days Novolin R Inj (Insulin Human Regular) 1,000 Unit/10 Ml Vial 1 Injection SQ Q6H 30 Days Pantoprazole (Pantoprazole Sodium) 40 Mg Tab 40 Mg PO DAILY Procardia (Nifedipine) 10 Mg Cap 30 Mg PO Q8HR 30 Days Gabapentin 300 Mg Cap 300 Mg PO BID Ferrous Sulfate 325 Mg Tab 325 Mg PO BID Oxygen tank (Oxygen) 1 Ea Tank 2 Liter [facility] CONTINUOUS Oxygen Concentrator Portable Gaseous 2 L/min via Nasal Cannula Continuous For 99 months Family History Noncontributory Social History Tobacco: Smoked 1 PPD for at least 10 years - quit smoking 3-4 years ago Alcohol: Denies alcohol use Physical Exam Vital Signs Vital Signs Date Time Temp Pulse Resp B/P Pulse Ox O2 Delivery O2 Flow Rate FiO2 09/08/16 10:14 94 Venturi Mask 50 09/08/16 08:00 Venturi Mask 6.00 50 09/08/16 06:00 74 09/08/16 04:00 78 09/08/16 04:00 99.8 78 16 124/63 93 09/08/16 02:00 81 09/08/16 00:00 97 Venturi Mask 50 09/08/16 00:00 99.5 83 21 134/62 97 09/08/16 00:00 83 09/07/16 23:00 96 Venturi Mask 6.00 50 Physical Exam GENERAL: This is a well-nourished, well-developed patient, she appears to be in mild distress SKIN: No rashes, ecchymoses or lesions. Cool and dry HEENT. Normocephalic. Pupils equal round and reactive. Extraocular motions intact. Trachea is midline. Neck is supple. Patient has facemask in place CARDIOVASCULAR: Regular rate and rhythm RESPIRATORY: Clear to auscultation. Breath sounds equal bilaterally. GASTROINTESTINAL: Abdomen soft, non-tender, nondistended. MUSCULOSKELETAL: Extremities edema. NEUROLOGICAL: Awake and alert. Cranial nerves II-XII grossly intact. Motor 5/ 5 to all muscle groups tested. Sensation intact to light touch throughout. Patient is oriented to person and time. Deep tendon reflexes are 1+ at the biceps and patella. No Fuller's reflex. No clonus at the ankles. Laboratory Laboratory Tests Test 09/07/16 09/07/16 09/08/16 23:30 23:45 06:15 Nasal Screen MRSA (PCR) NEGATIVE White Blood Count 6.5 Red Blood Count 3.98 Hemoglobin 8.5 Hematocrit 27.9 Mean Corpuscular Volume 70.1 Mean Corpuscular Hemoglobin 21.5 Mean Corpuscular Hemoglobin 30.6 Concent Red Cell Distribution Width 17.5 Platelet Count 223 Mean Platelet Volume 8.8 Neutrophils (%) (Auto) 75.6 Lymphocytes (%) (Auto) 10.4 Monocytes (%) (Auto) 9.8 Eosinophils (%) (Auto) 3.3 Basophils (%) (Auto) 0.9 Neutrophils # (Auto) 4.9 Lymphocytes # (Auto) 0.7 Monocytes # (Auto) 0.6 Eosinophils # (Auto) 0.2 Basophils # (Auto) 0.1 CBC Comment AUTO DIFF Differential Comment AUTO DIFF CONFIRMED Ovalocytes 1+ Sodium Level 134 Potassium Level 4.4 Chloride Level 96 Carbon Dioxide Level 29.4 Anion Gap 9 Blood Urea Nitrogen 38 Creatinine 4.81 Estimat Glomerular Filtration 10 Rate Random Glucose 143 Calcium Level 8.5 Total Bilirubin 0.4 Aspartate Amino Transf 9 (AST/SGOT) Alanine Aminotransferase 10 (ALT/SGPT) Alkaline Phosphatase 77 Troponin I 0.05 B-Type Natriuretic Peptide 18 Total Protein 6.9 Albumin 3.1 Blood Gas Puncture Site RT RADIAL Blood Gas Patient Temperature 98.6 Blood Gas HCO3 29 Blood Gas Base Excess 3.0 Blood Gas Oxygen Saturation 92 Arterial Blood pH 7.32 Arterial Blood Partial 57 Pressure CO2 Arterial Blood Partial 81 Pressure O2 Arterial Blood Oxygen Content 10.4 Arterial Blood 2.1 Carboxyhemoglobin Arterial Blood Methemoglobin 1.4 Blood Gas Hemoglobin 7.9 Oxygen Delivery Device Venti Mask Blood Gas Liter Flow 6 Blood Gas Inspired Oxygen 50 Date/Time Procedure Status Source Growth 09/08/16 04:41 Aerobic Blood Culture Received Blood Peripheral Pending 09/08/16 04:41 Anaerobic Blood Culture Received Blood Peripheral Pending Result Diagram: 09/07/16 2345 09/07/16 2345 Assessment and Plan Assessment and Plan Ms. Carnes is a 51 year-old female with a CHF, hypertension, diabetes mellitus, end-stage kidney disease on hemodialysis, and cervical spondylosis. She is admitted for recurrent respiratory failure with hypercapnia. Cervical stenosis: Her previous cervical spine MRI was reviewed. There is evidence of degenerative disc disease with cervical spondylosis and mild- moderate degree of cervical stenosis. On sagital MR imaging, there appears to be CSF signal dorsal to the spinal cord with no evidence of cord signal changes. She has no focal weakness and has no evidence of myelopathy. Given these findings, it is unlikely that the cervical stenosis is contributing to the patient's respiratory failure. No neurosurgical intervention is required at this time. Altered mental status: Possibly due to hypercapnia. Check lactate and ammonia level Seizure: No seizure activities currently Continue Keppra CHF/hypertension: lasix diuresis. Continue Coreg and lisinopril Respiratory failure with hypercapnia/pulmonary edema: Improving with diuresis and high flow oxygen. End-stage renal disease: Dialysis DVT prophylaxis: DERRICK, Leonard Stevenson MD Sep 08, 2016 13:00
[2016-09-08 13:03] LABS: BLOOD GAS CARBOXYHEMOGLOBIN 1.9 % (0-4); BLOOD GAS HCO3 27 mmol/L (22-26); BLOOD GAS METHEMOGLOBIN 1.2 % (0-2); BLOOD GAS O2 HGB SATURATION 95 % (90-100); BLOOD GAS OXYGEN CONTENT 11.1 Vol % (12.0-20.0); BLOOD GAS PCO2 50 mmHg (38-42); BLOOD GAS PO2 96 mmHg (61-120); BLOOD GAS TOTAL HGB 8.2 G/DL (12.0-16.0); CRITICAL VALUE NO; DRAW SITE RT RADIAL; FIO2 50 %; LITER FLOW 6 L/M; NUMBER OF ARTERIAL PUNCTURES 2; OXYGEN DEVICE Venti Mask; STAT YES; TEMP CORR TO 98.6; ULNAR PULSE PRESENT
[2016-09-08] MEDS: FERROUS SULFATE 325 MG (65 MG ELEMENTAL IRON) TAB PO SCH (14:25)
[2016-09-08] MEDS: RESP: ALBUTEROL 2.5 MG/IPRATROPIUM 0.5 MG NEB (SCH) NEB ×2 (15:03→20:00)
[2016-09-08] MEDS: REMOVE OLD PATCH T-DERMAL SCH (21:00)
[2016-09-08] MEDS: predniSONE 5 MG TAB PO SCH (21:42)
[2016-09-08] MEDS: AMITRIPTYLINE HCL 50 MG TAB PO SCH (21:42)
[2016-09-08] MEDS: ATORVASTATIN 80 MG TAB PO SCH (21:42)
[2016-09-09] VITALS (16 sets, daily range): BP systolic 113–169; BP diastolic 56–89; PULSE 61–73; RESP 15–22; TEMP 97.3–98.6; O2SAT 94–98
[2016-09-09] MEDS: CHLORHEXIDINE GLUCONATE 2 % 1 PACK (2 CLOTHS)(taper/protocol) TOP SCH (04:00)
--- NOTE | 2016-09-09 05:48 | RADRPT ---
EXAM DATE/TIME: 09/09/2016 03:33 [place] COMPARISON: No previous studies available for comparison. INDICATIONS : Shortness of breath, possible pulmonary disease. MEDICAL HISTORY : None. SURGICAL HISTORY : None. ENCOUNTER: Initial ACUITY: 1 day PAIN SCORE: Non-responsive. LOCATION: Bilateral chest FINDINGS: A single view of the chest demonstrates cardiomegaly with bilateral airspace disease. Moderate right pleural effusion with loss of the right hemidiaphragm. Osseous structures are intact. CONCLUSION: 1. Cardiomegaly with pulmonary edema. 2. Moderate right pleural effusion. Dylon Haley MD on September 09, 2016 at 5:45 Board Certified Radiologist. This report was verified electronically.
[2016-09-09] MEDS: cloNIDine HCL 0.2 MG TAB PO SCH ×3 (06:38→22:14)
[2016-09-09] MEDS: hydrALAZINE HCL 50 MG TAB PO SCH ×3 (06:38→22:14)
[2016-09-09] MEDS: HEPARIN SODIUM - SQ 10,000 UNITS/ML VIAL SQ SCH ×3 (06:38→22:13)
[2016-09-09] MEDS: NIFEdipine 10 MG CAP PO SCH ×3 (06:38→22:13)
[2016-09-09] MEDS: INSULIN ASPART SUPPLEMENTAL SCALE SQ SCH ×4 (07:00→21:00)
[2016-09-09 07:09] LABS: HEMATOCRIT 26.5 % (35.0-46.0); MEAN CELL VOLUME 69.9 FL (80.0-100.0); MEAN CORPUSCULAR HEMOGLOBIN 21.1 PG (27.0-34.0); MEAN CORPUSCULAR HGB CONC 30.3 % (32.0-36.0); PLATELET COUNT 221 TH/MM3 (150-450); RED BLOOD COUNT 3.79 MIL/MM3 (4.00-5.30); RED CELL DISTRIBUTION WIDTH 17.2 % (11.6-17.2)
[2016-09-09 07:27] LABS: BICARBONATE 30.3 MEQ/L (21.0-32.0)
[2016-09-09 07:35] LABS: REVIEW FLAG FINAL
[2016-09-09] MEDS: MINOXIDIL 2.5 MG TAB PO SCH (09:00)
[2016-09-09] MEDS: RESP: ALBUTEROL 2.5 MG/IPRATROPIUM 0.5 MG NEB (SCH) NEB ×4 (09:03→19:49)
[2016-09-09] MEDS: LIDOCAINE HCL 5% PATCH TD SCH (09:08)
[2016-09-09] MEDS: INSULIN DETEMIR 100 UNITS/ML VIAL SQ SCH ×2 (09:09→22:13)
[2016-09-09] MEDS: predniSONE 5 MG TAB PO SCH ×2 (09:09→22:14)
[2016-09-09] MEDS: CARVEDILOL 12.5 MG TAB PO SCH ×2 (09:09→22:14)
[2016-09-09] MEDS: PANTOPRAZOLE SOD 40 MG DELAYED RELEASE TAB PO SCH (09:09)
[2016-09-09] MEDS: LISINOPRIL 20 MG TAB PO SCH (09:10)
[2016-09-09] MEDS: GABAPENTIN 300 MG CAP PO SCH ×2 (09:10→22:14)
[2016-09-09] MEDS: levETIRAcetam 250 MG TAB PO SCH ×2 (09:10→22:13)
--- NOTE | 2016-09-09 09:50 | HHI.PR ---
Review/Management Diagnosis/Plan: (1) Seizure Plan: likely 2/2 metabolic changes lowered threshold with renal failure and resp failure csf studies reviewed; +ocb but serum/csf; need to follow up outpatient; may need vep's done when stable recs neuro stable continue keppra/gabapentin will follow peripherally (2) Acute respiratory failure with hypoxia and hypercapnia Plan: main issue; improved (3) Cervical spondylosis Plan: suspect her recurrent hypercapnia is related to obesity/chf/renal failure but has mild cord compression which could affect ventilation; will get nsx opinion on decompression, although note she is not the best candidate (4) DM neuropathies (5) Hypoventilation associated with obesity syndrome (6) ESRD (end stage renal disease) on dialysis Subjective Subjective Comments No acute events reported No headache no sz. no diplopia No chest pain No dyspnea Active Medications Current Medications Medications (Trade) Dose Ordered Sig/Christa Route Start Time Stop Time Status Last Admin (Tylenol) 650 mg Q4H PRN PO 09/08/16 00:00 (Zofran Inj) 4 mg Q6H PRN IVP 09/08/16 00:00 (Senokot) 17.2 mg Q12H PRN PO 09/08/16 00:00 (Narcan Inj) 0.4 mg UNSCH PRN IV 09/08/16 00:00 Miscellaneous Information Patient in critical care unit? Ass... Q361D XX 09/08/16 00:15 09/08/16 00:15 (Chlorhexidine 2% Cloth) 3 pack DAILY@04 TOP 09/08/16 04:00 09/12/16 04:01 09/09/16 04:00 (Chlorhexidine 2% Cloth) 3 pack UNSCH PRN TOP 09/08/16 00:15 09/13/16 00:00 (D50w (Vial) Inj) 25 ml UNSCH PRN IV PUSH 09/08/16 00:00 (Glucagon Inj) 1 mg UNSCH PRN OTHER 09/08/16 00:00 (Elavil) 50 mg HS PO 09/08/16 21:00 09/08/16 21:42 (Neurontin) 300 mg BID PO 09/08/16 09:00 09/09/16 09:10 (Coreg) 25 mg Q12HR PO 09/08/16 09:00 09/09/16 09:09 (Lipitor) 80 mg HS PO 09/08/16 21:00 09/08/16 21:42 (Procardia) 30 mg Q8HR PO 09/08/16 06:00 09/09/16 06:38 (Apresoline) 50 mg Q8HR PO 09/08/16 06:00 09/09/16 06:38 (Catapres) 0.2 mg Q8HR PO 09/08/16 06:00 09/09/16 06:38 (Protonix) 40 mg DAILY PO 09/08/16 09:00 09/09/16 09:09 (Loniten) 2.5 mg DAILY PO 09/08/16 09:00 09/08/16 09:17 (Prinivil) 20 mg DAILY PO 09/08/16 09:00 09/09/16 09:10 (Nitrostat Sl) 0.4 mg Q5M PRN SL 09/08/16 00:15 (Ferrous Sulfate) 325 mg BID@,17 PO 09/08/16 12:00 09/08/16 14:25 (Levemir Inj) 20 units Q12HR SQ 09/08/16 09:00 09/09/16 09:09 (Lidoderm 5% Patch.12 Hr) 1 patch DAILY TD 09/08/16 09:00 09/09/16 09:08 Miscellaneous Information 1 HS T-DERMAL 09/08/16 21:00 09/08/16 21:00 (Heparin Inj) 5,000 units Q8HR SQ 09/08/16 06:00 09/09/16 06:38 (Keppra) 250 mg Q12HR PO 09/08/16 09:00 09/09/16 09:10 (Pill Splitter) 1 ea UNSCH PRN OTHER 09/08/16 00:45 (Deltasone) 5 mg BID PO 09/08/16 21:00 09/09/16 09:09 Allergies Allergies Coded Allergies Lyrica (Verified Allergy, Severe, Anaphylaxis, 07/15/16) *MDRO Multi-Drug Resistant Organism (Verified Adverse Reaction, Unknown, ) Review of Systems All other ROS: ROS reviewed as documented in chart Exam I&O / VS 09/08/16 09/08/16 09/09/16 15:00 23:00 07:00 Intake Total 580 ml Output Total 0 ml 100 ml Balance 580 ml -100 ml Intake Oral 580 ml Output Urine Total 0 ml 100 ml # Voids 0 # Bowel Movements 0 1 Vital Signs Date Time Temp Pulse Resp B/P Pulse Ox O2 Delivery O2 Flow Rate FiO2 09/09/16 08:13 95 Venturi Mask 50 09/09/16 08:00 97.4 61 15 135/73 95 09/09/16 08:00 61 09/09/16 07:00 95 Venturi Mask 50 09/09/16 06:38 94 Venturi Mask 6.00 50 09/09/16 06:00 63 09/09/16 04:05 98 35 09/09/16 04:00 98.2 66 16 132/63 98 09/09/16 04:00 66 09/09/16 02:00 71 09/09/16 01:40 97 35 09/09/16 00:00 98.5 67 18 133/65 94 09/09/16 00:00 67 09/08/16 23:10 97 35 09/08/16 22:30 96 Bi-Pap 09/08/16 22:00 70 09/08/16 20:00 74 09/08/16 20:00 97 Venturi Mask 6.00 50 09/08/16 20:00 98.3 74 18 155/72 96 09/08/16 19:00 95 Venturi Mask 50 09/08/16 18:12 72 09/08/16 17:55 72 09/08/16 16:22 98.6 72 16 138/65 93 09/08/16 16:00 72 09/08/16 14:00 68 09/08/16 12:00 66 09/08/16 12:00 97.9 66 15 126/63 96 09/08/16 10:14 94 Venturi Mask 50 09/08/16 10:00 66 General: Alert and Oriented, No acute distress Eye: EOMI Respiratory: Non-labored respirations, BS equal Cardiology: Normal rate Musculoskeletal: ROM, Swelling Neurologic: Alert Psychiatric: Cooperative, Appropriate mood & affect Exam Comments ox2. not to date, follows, pleasant, calm. obese, follows, articulate, eomi, ou , vff, no ptosis, face sym, 1-2+le edema, msr 1-2+, left leg 4-/5, no clonus, reduced in pin legs, planter flexor Objective Micro and Labs Laboratory Tests Test 09/08/16 09/08/16 09/09/16 12:55 15:45 05:22 Blood Gas Puncture Site RT RADIAL Blood Gas Patient Temperature 98.6 Blood Gas HCO3 27 Blood Gas Base Excess 2.0 Blood Gas Oxygen Saturation 95 Arterial Blood pH 7.35 Arterial Blood Partial 50 Pressure CO2 Arterial Blood Partial 96 Pressure O2 Arterial Blood Oxygen Content 11.1 Arterial Blood 1.9 Carboxyhemoglobin Arterial Blood Methemoglobin 1.2 Blood Gas Hemoglobin 8.2 Oxygen Delivery Device Venti Mask Blood Gas Liter Flow 6 Blood Gas Inspired Oxygen 50 Ammonia 26 White Blood Count 5.0 Red Blood Count 3.79 Hemoglobin 8.0 Hematocrit 26.5 Mean Corpuscular Volume 69.9 Mean Corpuscular Hemoglobin 21.1 Mean Corpuscular Hemoglobin 30.3 Concent Red Cell Distribution Width 17.2 Platelet Count 221 Mean Platelet Volume 9.3 Sodium Level 137 Potassium Level 4.0 Chloride Level 97 Carbon Dioxide Level 30.3 Anion Gap 10 Blood Urea Nitrogen 47 Creatinine 5.29 Estimat Glomerular Filtration 9 Rate Random Glucose 150 Calcium Level 8.4 Date/Time Procedure Status Source Growth 09/08/16 04:41 Aerobic Blood Culture Received Blood Peripheral Pending 09/08/16 04:41 Anaerobic Blood Culture Received Blood Peripheral Pending Problem Qualifiers (1) Cervical spondylosis: Qualified Code: M47.812 - Spondylosis of cervical region without myelopathy or radiculopathy (2) DM neuropathies: Fredy Ny MD Sep 09, 2016 09:50
[2016-09-09 11:13] LABS: CRITICAL VALUE YES
[2016-09-09] MEDS ORDERED: SODIUM CHLOR 0.9% 1000 ML INJ 1,000 ML IV PRN ×3 (11:47)
--- NOTE | 2016-09-09 11:47 | HHI.NPPN ---
Subjective General Problems: Anemia, Edema, Hypertension Renal Failure: End Stage Renal Disease History of Present Illness 51-year-old morbidly obese female with end-stage renal disease, CHF, respiratory failure who became somnolent, lethargic and at first that there was a questionable seizures denies respiratory problems got aggravated with the hypoxemia requiring transfer to the intensive care unit. Additional Remarks Patient is now alert, with nasal cannula, not in distress. Review of Systems General Constitutional: Fatigue Respiratory Lungs: SOB, Sputum, Wheeze Cardiovascular Cardiac: CRUZ Objective Data Data 09/08/16 09/09/16 19:00 07:00 Intake Total 480 ml 100 ml Output Total 100 ml Balance 480 ml 0 ml Intake Oral 480 ml 100 ml Output Urine Total 100 ml # Voids 0 # Bowel Movements 1 Vital Signs Date Time Temp Pulse Resp B/P Pulse Ox O2 Delivery O2 Flow Rate FiO2 09/09/16 10:00 62 09/09/16 08:13 95 Venturi Mask 50 09/09/16 08:00 97.4 61 15 135/73 95 09/09/16 08:00 61 09/09/16 07:00 95 Venturi Mask 50 09/09/16 06:38 94 Venturi Mask 6.00 50 09/09/16 06:00 63 09/09/16 04:05 98 35 09/09/16 04:00 98.2 66 16 132/63 98 09/09/16 04:00 66 09/09/16 02:00 71 09/09/16 01:40 97 35 09/09/16 00:00 98.5 67 18 133/65 94 09/09/16 00:00 67 09/08/16 23:10 97 35 09/08/16 22:30 96 Bi-Pap 09/08/16 22:00 70 09/08/16 20:00 74 09/08/16 20:00 97 Venturi Mask 6.00 50 09/08/16 20:00 98.3 74 18 155/72 96 09/08/16 19:00 95 Venturi Mask 50 09/08/16 18:12 72 09/08/16 17:55 72 09/08/16 16:22 98.6 72 16 138/65 93 09/08/16 16:00 72 09/08/16 14:00 68 09/08/16 12:00 66 09/08/16 12:00 97.9 66 15 126/63 96 -: 09/09/16 0522 09/09/16 0522 Physical Exam General Appearance: No Acute Distress, Comfortable Eyes Eye Exam: Pupils Equal Throat Throat Exam: Oral Mucosa [place] & Moist Pulmonary Resp Exam: No Distress, Rhonchi, Decreased Bases, Diminished Breath Sounds Cardiology CV Exam: Regular, Normal Sinus Rhythm Gastrointestinal/Abdomen GI Exam: Soft, Non-Tender, Bowel Sounds Present Extremeties Extremities Exam: Trace Edema Neurologic Neuro Exam: Alert, Awake, Oriented Psychiatric Psych Exam: Appropriate Responses Assessment/Plan Problem List: (1) ESRD (end stage renal disease) on dialysis Plan: Patient has received her dialysis on Sat. and tolerated well, ultrafiltration was 5 L She continued to have respiratory problem and hypoventilation syndrome We will continue to observe and hemodialysis will be done on Friday and Friday (2) HTN (hypertension) Plan: Continue monitor while in intensive care unit (3) Seizure Plan: Neurology following (4) Hypoxia Plan: Possibly related to hypoventilation syndrome (5) Acute respiratory failure with hypoxia and hypercapnia Plan: She has several documented episodes (6) Hypoventilation associated with obesity syndrome Plan: Closely observe in intensive care unit (7) DM neuropathies Plan: Continue to monitor Problem Qualifiers (1) HTN (hypertension): Qualified Code: I10 - Essential hypertension (2) DM neuropathies: Qualified Code: E11.42 - Diabetic polyneuropathy associated with type 2 diabetes mellitus Mia Medley MD Sep 09, 2016 11:47
[2016-09-09] MEDS ORDERED: ALBUMIN HUMAN 25% 25 GM/100 ML BAGP IV PRN (12:00)
[2016-09-09] MEDS ORDERED: HEPARIN SODIUM - IV 10,000 UNITS/10 ML VIAL PRN (12:00)
[2016-09-09] MEDS ORDERED: EPOETIN ALFA 10,000 UNITS/ML VIAL IV PRN (12:00)
[2016-09-09] MEDS ORDERED: SODIUM CHLORIDE 0.9% FLUSH 10 ML FLUSH IV FLUSH PRN (12:00)
[2016-09-09] MEDS ORDERED: ONDANSETRON HCL 4 MG/2 ML VIAL IV PRN (12:00)
[2016-09-09] MEDS ORDERED: HEPARIN SODIUM - IV 10,000 UNITS/10 ML VIAL IVF PRN (12:00)
[2016-09-09] MEDS ORDERED: cloNIDine HCL 0.1 MG TAB PO PRN (12:00)
[2016-09-09] MEDS ORDERED: GELATIN 12 MM/7 MM FOAM TOP PRN (12:00)
[2016-09-09] MEDS ORDERED: GENTAMICIN SULFATE (DIALYSIS USE ONLY) 20 MG/2 ML VIAL IV PRN (12:00)
[2016-09-09] MEDS ORDERED: MANNITOL 12.5 GM/50 ML VIAL IV PRN (12:00)
[2016-09-09] MEDS ORDERED: NITROGLYCERIN 0.4 MG SL 25 TABS/BTL SL PRN (12:00)
[2016-09-09] MEDS ORDERED: diphenhydrAMINE HCL 25 MG CAP PO PRN (12:00)
[2016-09-09] MEDS: FERROUS SULFATE 325 MG (65 MG ELEMENTAL IRON) TAB PO SCH ×2 (12:00→16:41)
[2016-09-09] MEDS ORDERED: ACETAMINOPHEN 325 MG TAB PO PRN (12:00)
--- NOTE | 2016-09-09 12:47 | HHI.PR ---
Subjective Remarks Patient reports feeling better. Stable on Ventimask. Objective Vitals Vital Signs Date Time Temp Pulse Resp B/P Pulse Ox O2 Delivery O2 Flow Rate FiO2 09/09/16 10:00 62 09/09/16 08:13 95 Venturi Mask 50 09/09/16 08:00 97.4 61 15 135/73 95 09/09/16 08:00 61 09/09/16 07:00 95 Venturi Mask 50 09/09/16 06:38 94 Venturi Mask 6.00 50 09/09/16 06:00 63 09/09/16 04:05 98 35 09/09/16 04:00 98.2 66 16 132/63 98 09/09/16 04:00 66 09/09/16 02:00 71 09/09/16 01:40 97 35 09/09/16 00:00 98.5 67 18 133/65 94 09/09/16 00:00 67 09/08/16 23:10 97 35 09/08/16 22:30 96 Bi-Pap 09/08/16 22:00 70 09/08/16 20:00 74 09/08/16 20:00 97 Venturi Mask 6.00 50 09/08/16 20:00 98.3 74 18 155/72 96 09/08/16 19:00 95 Venturi Mask 50 09/08/16 18:12 72 09/08/16 17:55 72 09/08/16 16:22 98.6 72 16 138/65 93 09/08/16 16:00 72 09/08/16 14:00 68 I/O 09/08/16 09/08/16 09/08/16 09/09/16 09/09/16 09/09/16 07:00 15:00 23:00 07:00 15:00 23:00 Intake Total 30 ml 580 ml Output Total 300 ml 0 ml 100 ml Balance -270 ml 580 ml -100 ml Intake Oral 30 ml 580 ml Output Urine Total 300 ml 0 ml 100 ml # Voids 1 0 # Bowel Movements 1 0 1 Result Diagram: 09/09/1652109/09/16521 Objective Remarks GENERAL: Obese female in no acute distress CARDIOVASCULAR: Normal rate and regular rhythm without murmurs, gallops, or rubs. RESPIRATORY: Respiratory effort is fair. Diminished breath sounds bilaterally at the bases. GASTROINTESTINAL: Abdomen soft, non-tender, non-distended. Normal active bowel sounds MUSCULOSKELETAL: Extremities without cyanosis, or edema. NEURO: Alert & Oriented to person and place. Moves all ext x4 PSYCH: Calm. A/P Problem List: (1) Acute respiratory failure with hypoxia and hypercapnia ICD Code: J96.01 Status: Acute (2) Hypoxia ICD Code: R09.02 Status: Acute (3) Pulmonary edema ICD Code: J81.1 Status: Acute (4) Chronic diastolic congestive heart failure ICD Code: I50.32 Status: Chronic (5) Diabetes ICD Code: E11.9 Status: Chronic (6) HTN (hypertension) ICD Code: I10 Status: Chronic (7) ESRD (end stage renal disease) on dialysis ICD Code: N18.6 Status: Chronic (8) Hyperlipemia ICD Code: E78.5 Status: Chronic (9) Nausea & vomiting ICD Code: R11.2 Status: Acute (10) Seizure ICD Code: R56.9 Status: Acute Assessment and Plan 51 year-old female with a past medical history of CHF, hypertension, diabetes mellitus, and chronic kidney disease with recent prolonged hospitalization starting on July 15, 2016 with recurrent intubation for respiratory failure ( x3) who was discharged to [facility] for inpatient rehabilitation on 2016 who was transferred back to the hospital 09/07/16 for acute respiratory failure. Acute Hypercapnic Respiratory Failure with Hypoxia Pulmonary Edema Chronic diastolic congestive heart failure: Echocardiogram 07/23 reveals EF 45-50% . No regional motion abnormality. POOL 59 mmHg. Mild TR. - Appreciate pulmonology following. BiPAP as needed. Ultimately the patient will need CPAP night. - Supplemental oxygen, titrate to keep oxygen sats around 92%. Type 2 diabetes mellitus - Continue Levemir 20 units subcutaneous every 12 hours - Accu-Cheks before meals and at bedtime with NovoLog sliding scale coverage - Hypoglycemia protocol - Monitor trends and blood glucose levels and adjust treatments as indicated End-stage renal disease requiring hemodialysis -Nephrology following, on hemodialysis Hypertension: On Coreg 25mg BID, hydralazine 100mg TID, lisinopril 20 daily, clonidine 0.2 mg every 8 hours,Nifedipine at 30 mg by mouth every 8 hours and Minoxidil 2.5mg daily Continue to monitor blood pressure and adjust medications as necessary. Controlled Hyperlipidemia - continue pravastatin Possible seizures - continue Keppra as ordered by neurology - EEG 09/07/15 showed mild encephalopathy with some occasional small frontal sharp transients in sleep state - neurology on board. DVT prophylaxis - Heparin 5000 units subq q8h Discharge Planning Okay to transfer to floor if oxygen level acceptable Problem Qualifiers (1) HTN (hypertension): Qualified Code: I10 - Essential hypertension Carey Coombs MD Sep 09, 2016 12:46
--- NOTE | 2016-09-09 19:15 | HHI.PR ---
Subjective Remarks Alert and on O2 3L. Used Bipap last pm Objective Vital Signs Date Time Temp Pulse Resp B/P Pulse Ox O2 Delivery O2 Flow Rate FiO2 09/09/16 17:45 97.3 71 20 163/79 97 09/09/16 16:00 97.8 68 22 169/89 94 09/09/16 16:00 68 09/09/16 14:00 64 09/09/16 12:00 62 09/09/16 12:00 98.0 61 15 131/63 97 09/09/16 10:00 62 09/09/16 08:13 95 Venturi Mask 50 09/09/16 08:00 97.4 61 15 135/73 95 09/09/16 08:00 61 09/09/16 07:00 95 Venturi Mask 50 09/09/16 06:38 94 Venturi Mask 6.00 50 09/09/16 06:00 63 09/09/16 04:05 98 35 09/09/16 04:00 98.2 66 16 132/63 98 09/09/16 04:00 66 09/09/16 02:00 71 09/09/16 01:40 97 35 09/09/16 00:00 98.5 67 18 133/65 94 09/09/16 00:00 67 09/08/16 23:10 97 35 09/08/16 22:30 96 Bi-Pap 09/08/16 22:00 70 09/08/16 20:00 74 09/08/16 20:00 97 Venturi Mask 6.00 50 09/08/16 20:00 98.3 74 18 155/72 96 I/O 09/08/16 09/08/16 09/08/16 09/09/16 09/09/16 09/09/16 07:00 15:00 23:00 07:00 15:00 23:00 Intake Total 30 ml 580 ml 240 ml Output Total 300 ml 0 ml 100 ml 250 ml Balance -270 ml 580 ml -100 ml -10 ml Intake Oral 30 ml 580 ml 240 ml Output Urine Total 300 ml 0 ml 100 ml 250 ml # Voids 1 0 2 # Bowel Movements 1 0 1 0 Result Diagram: 09/09/1652109/09/16521 Objective Remarks GENERAL: This is a well-nourished, well-developed patient, in no apparent distress. CARDIOVASCULAR: Regular rate and rhythm without murmurs, gallops, or rubs. RESPIRATORY: Diffuse expiratory wheezes, diminished breath sounds bilaterally. GASTROINTESTINAL: Abdomen soft, non-tender,nondistended. Normal active bowel sounds MUSCULOSKELETAL: Extremities without clubbing, cyanosis, but has edema. NEURO: Alert & Oriented .. Moves all ext x4 Assessment and Plan Assessment and Plan (1) ESRD (end stage renal disease) on dialysis (2) HTN (hypertension) (3) Seizure (4) Hypoxia (5) Acute respiratory failure with hypoxia and hypercapnia (6) Hypoventilation associated with obesity syndrome (7) DM neuropathies Plan : 1. O2 at 3L. 2. Nebs qid , duoneb. 3. Bipap at HS15/5 CM 30 % FIO2. 4. Dialysis in am 5. Chest Xray 6. Arrange home CPAP machine Sheela Lau MD Sep 09, 2016 19:15
[2016-09-09] MEDS: REMOVE OLD PATCH T-DERMAL SCH (21:00)
[2016-09-09] MEDS: ATORVASTATIN 80 MG TAB PO SCH (22:14)
[2016-09-09] MEDS: AMITRIPTYLINE HCL 50 MG TAB PO SCH (22:14)
[2016-09-10] VITALS (8 sets, daily range): BP systolic 144–177; BP diastolic 70–83; PULSE 66–80; RESP 20–22; TEMP 96.4–97.9; O2SAT 94–98
[2016-09-10] MEDS: CHLORHEXIDINE GLUCONATE 2 % 1 PACK (2 CLOTHS)(taper/protocol) TOP SCH (04:00)
[2016-09-10] MEDS: cloNIDine HCL 0.2 MG TAB PO SCH ×3 (05:41→21:13)
[2016-09-10] MEDS: HEPARIN SODIUM - SQ 10,000 UNITS/ML VIAL SQ SCH ×3 (05:41→21:13)
[2016-09-10] MEDS: NIFEdipine 10 MG CAP PO SCH ×3 (05:41→21:12)
[2016-09-10] MEDS: hydrALAZINE HCL 50 MG TAB PO SCH ×3 (05:41→21:12)
[2016-09-10] MEDS: INSULIN ASPART SUPPLEMENTAL SCALE SQ SCH ×4 (05:42→21:00)
--- NOTE | 2016-09-10 06:43 | MB ---
cc: ANGELES MENESES DATE OF CONSULTATION 09/09/2016 REASON FOR CONSULTATION Respiratory failure HISTORY OF PRESENT ILLNESS This is a 51-year-old lady who was recently in the hospital with a history of respiratory failure, chronic diastolic heart failure and hypertension. Also has been on dialysis for end-stage renal disease. The patient has obstructive sleep apnea. She was in the hospital for more than four weeks and was on ventilator support and subsequently extubated and had been on oxygen via nasal cannula and then transferred to [facility] more than two weeks ago. The patient apparently had a questionable seizure-like activity and a neurologic workup was started including a CT of the head and has been retaining CO2 and thus had been on BiPap initially, but subsequently weaned off the BiPap. The patient was noted to be quite lethargic this week and was transferred to the intensive care unit due to increasing lethargy and oxygen sats dropping into the 70s and 60. She thus was monitored in the ICU and was also placed on BiPap briefly and now on nasal cannula at three liters and maintaining a sat of 96%. The patient is awake, cooperative, and answers appropriately and is not in any distress. Chest x-ray showed pulmonary edema which has previously been observed and she is receiving Lasix daily. PAST HISTORY Has included: 1. CHF 2. Depression 3. Hypertension 4. Diabetes 5. Obesity 6. Sleep apnea 7. She also has had a cardiac catheterization done. 8. Vas cath placed for dialysis. HABITS The patient was a prior smoker for 20 years, but no significant alcohol. MEDICATIONS Med list was reviewed from the chart and includes: 1. Protonix 40 mg a day 2. Procardia 10 mg every 8 hours 3. Minoxidil 2-1/2 mg daily 4. Keppra 250 mg q12 5. Levemir injection 20 units subcu q12 6. Neurontin 300 mg b.i.d. 7. Heparin 5000 units q12 8. Catapres 0.2 mg q8 9. Coreg 12-1/2 mg b.i.d. 10. Lipitor 80 mg at bedtime 11. Aspirin one daily 12. Amitriptyline 50 mg at bedtime ALLERGIES LYRICA REVIEW OF SYSTEMS The patient is having joint pains. She has trouble ambulating. Denies any abdominal pain, nausea. She has leg swelling. She has joint pains of her extremities and has had no skin rash. She has some depression and anxiety. PHYSICAL EXAMINATION This is an obese middle-aged lady who is in bed. She is mildly dyspneic. She has mild peripheral cyanosis. VITAL SIGNS: Blood pressure 148/80, pulse is 85, respirations 20, temperature 96. HEENT: Head normocephalic. Pupils reactive. Tongue moist. Throat is injected. Nasal mucosae edematous. NECK: Supple. No bruits. Mild venous distension. Trachea midline. CHEST: Equal movements with distant breath sounds with expiratory wheezes bilaterally, prolonged expirations and there are a few crackles at the bases. HEART: Regular S1-S2. No murmur. No S3. ABDOMEN: Soft and benign. No masses or organomegaly. EXTREMITIES: Mild edema. Diminished pulses. Reflexes are 1+. No gross motor deficits. IMPRESSION 1. Acute respiratory failure resolved 2. Hypercapnia with hypoxemia 3. Pulmonary edema, resolving 4. Hypertension 5. Diabetes 6. End-stage renal disease on dialysis. 7. Obstructive sleep apnea syndrome 8. Seizure disorder PLAN The patient has been placed on O2 at 3 liters. She will be placed on C-PAP at nights at 110 cm of pressure. She is receiving DuoNeb solution with a nebulizer q.i.d. and a repeat chest x-ray to be done this week. She will be advised to use the incentive spirometer and physical therapy continued while in the intensive care unit. Thank you Dr. oLw for this consultation. MD SCAR Espinosa/LIV /11:26 PM /6:32 AM
[2016-09-10] MEDS: RESP: ALBUTEROL 2.5 MG/IPRATROPIUM 0.5 MG NEB (SCH) NEB ×4 (07:36→20:27)
[2016-09-10 07:49] LABS: HEMATOCRIT 27.1 % (35.0-46.0); MEAN CELL VOLUME 68.3 FL (80.0-100.0); MEAN CORPUSCULAR HEMOGLOBIN 21.4 PG (27.0-34.0); MEAN CORPUSCULAR HGB CONC 31.3 % (32.0-36.0); PLATELET COUNT 242 TH/MM3 (150-450); RED BLOOD COUNT 3.96 MIL/MM3 (4.00-5.30); RED CELL DISTRIBUTION WIDTH 17.7 % (11.6-17.2); WHITE BLOOD COUNT 4.8 TH/MM3 (4.0-11.0)
[2016-09-10 07:52] LABS: REVIEW FLAG FINAL
[2016-09-10 08:23] LABS: BICARBONATE 29.9 MEQ/L (21.0-32.0)
[2016-09-10] MEDS: CARVEDILOL 12.5 MG TAB PO SCH ×2 (09:00→21:13)
[2016-09-10] MEDS: GABAPENTIN 300 MG CAP PO SCH ×2 (09:00→21:12)
[2016-09-10] MEDS: PANTOPRAZOLE SOD 40 MG DELAYED RELEASE TAB PO SCH (09:00)
[2016-09-10] MEDS: LIDOCAINE HCL 5% PATCH TD SCH (09:00)
[2016-09-10] MEDS: levETIRAcetam 250 MG TAB PO SCH ×2 (09:00→21:13)
[2016-09-10] MEDS: INSULIN DETEMIR 100 UNITS/ML VIAL SQ SCH ×2 (09:00→21:15)
[2016-09-10] MEDS: predniSONE 5 MG TAB PO SCH ×2 (09:00→21:13)
[2016-09-10] MEDS: FERROUS SULFATE 325 MG (65 MG ELEMENTAL IRON) TAB PO SCH ×2 (12:00→17:00)
--- NOTE | 2016-09-10 15:10 | HHI.PR ---
Subjective Remarks Patient seen after dialysis. She denies shortness of breath or chest pain. Reports feeling well overall. Has not been out of bed yet. Objective Vitals Vital Signs Date Time Temp Pulse Resp B/P Pulse Ox O2 Delivery O2 Flow Rate FiO2 09/10/16 08:00 93 Nasal Cannula 2.00 09/10/16 08:00 97.5 68 20 144/70 96 09/10/16 07:36 97 Nasal Cannula 3.00 09/10/16 04:00 97.8 66 20 177/83 95 09/10/16 00:00 97.9 70 22 158/77 98 09/09/16 22:20 Nasal Cannula 2.00 09/09/16 20:00 73 09/09/16 20:00 97.4 73 20 162/83 97 09/09/16 19:51 98 Nasal Cannula 3.00 09/09/16 17:45 97.3 71 20 163/79 97 09/09/16 16:00 97.8 68 22 169/89 94 09/09/16 16:00 68 I/O 09/09/16 09/09/16 09/09/16 09/10/16 09/10/16 09/10/16 07:00 15:00 23:00 07:00 15:00 23:00 Intake Total 240 ml 240 ml 240 ml Output Total 100 ml 250 ml 350 ml 850 ml Balance -100 ml -10 ml -110 ml -610 ml Intake Oral 240 ml 240 ml 240 ml Output Urine Total 100 ml 250 ml 350 ml 850 ml # Voids 2 # Bowel Movements 1 0 0 0 Result Diagram: 09/10/1671909/10/16 0720 Objective Remarks GENERAL: Obese female in no acute distress CARDIOVASCULAR: Normal rate and regular rhythm without murmurs, gallops, or rubs. RESPIRATORY: Respiratory effort is fair. Diminished breath sounds bilaterally at the bases. GASTROINTESTINAL: Abdomen soft, non-tender, non-distended. Normal active bowel sounds MUSCULOSKELETAL: Extremities without cyanosis, or edema. NEURO: Alert & Oriented to person and place. Moves all ext x4 PSYCH: Calm. A/P Problem List: (1) Acute respiratory failure with hypoxia and hypercapnia ICD Code: J96.01 Status: Acute (2) Hypoxia ICD Code: R09.02 Status: Acute (3) Pulmonary edema ICD Code: J81.1 Status: Acute (4) Chronic diastolic congestive heart failure ICD Code: I50.32 Status: Chronic (5) Diabetes ICD Code: E11.9 Status: Chronic (6) HTN (hypertension) ICD Code: I10 Status: Chronic (7) ESRD (end stage renal disease) on dialysis ICD Code: N18.6 Status: Chronic (8) Hyperlipemia ICD Code: E78.5 Status: Chronic (9) Nausea & vomiting ICD Code: R11.2 Status: Acute (10) Seizure ICD Code: R56.9 Status: Acute Assessment and Plan 51 year-old female with a past medical history of CHF, hypertension, diabetes mellitus, and chronic kidney disease with recent prolonged hospitalization starting on July 15, 2016 with recurrent intubation for respiratory failure ( x3) who was discharged to [facility] for inpatient rehabilitation on 2016 who was transferred back to the hospital 09/07/16 for acute respiratory failure. Acute Hypercapnic Respiratory Failure with Hypoxia Pulmonary Edema Chronic diastolic congestive heart failure: Echocardiogram 07/23 reveals EF 45-50% . No regional motion abnormality. POOL 59 mmHg. Mild TR. - Appreciate pulmonology following. BiPAP at night. Patient has a CPAP machine at home but has not been using this recently. We'll need to ensure it is operational prior to discharge. - Supplemental oxygen, titrate to keep oxygen sats around 92%. Type 2 diabetes mellitus - Continue Levemir 20 units subcutaneous every 12 hours - Accu-Cheks before meals and at bedtime with NovoLog sliding scale coverage - Hypoglycemia protocol - Monitor trends and blood glucose levels and adjust treatments as indicated End-stage renal disease requiring hemodialysis -Nephrology following, on hemodialysis Hypertension: On Coreg 25mg BID, hydralazine 100mg TID, lisinopril 20 daily, clonidine 0.2 mg every 8 hours,Nifedipine at 30 mg by mouth every 8 hours and Minoxidil 2.5mg daily Continue to monitor blood pressure and adjust medications as necessary. Controlled Hyperlipidemia - continue pravastatin Possible seizures - continue Keppra as ordered by neurology - EEG 09/07/15 showed mild encephalopathy with some occasional small frontal sharp transients in sleep state - neurology on board. DVT prophylaxis - Heparin 5000 units subq q8h Discharge Planning Plan to transfer back to [facility], probably tomorrow if remains stable. Problem Qualifiers (1) HTN (hypertension): Qualified Code: I10 - Essential hypertension Rimpel,Ricardy MD Sep 10, 2016 15:10
--- NOTE | 2016-09-10 16:49 | HHI.NPPN ---
Subjective General Problems: Anemia, Edema, Hypertension Renal Failure: End Stage Renal Disease History of Present Illness 51-year-old morbidly obese female with end-stage renal disease, CHF, respiratory failure who became somnolent, lethargic and at first that there was a questionable seizures denies respiratory problems got aggravated with the hypoxemia requiring transfer to the intensive care unit. Additional Remarks Patient is alert, with nasal cannula, not in distress, no SOB, seen after HD. Review of Systems General Constitutional: Fatigue Respiratory Lungs: SOB, Sputum, Wheeze Cardiovascular Cardiac: CRUZ Objective Data Data 09/09/16 09/10/16 19:00 07:00 Intake Total 240 ml 480 ml Output Total 250 ml 1200 ml Balance -10 ml -720 ml Intake Oral 240 ml 480 ml Output Urine Total 250 ml 1200 ml # Voids 2 # Bowel Movements 0 0 Vital Signs Date Time Temp Pulse Resp B/P Pulse Ox O2 Delivery O2 Flow Rate FiO2 09/10/16 08:00 93 Nasal Cannula 2.00 09/10/16 08:00 97.5 68 20 144/70 96 09/10/16 07:36 97 Nasal Cannula 3.00 09/10/16 04:00 97.8 66 20 177/83 95 09/10/16 00:00 97.9 70 22 158/77 98 09/09/16 22:20 Nasal Cannula 2.00 09/09/16 20:00 73 09/09/16 20:00 97.4 73 20 162/83 97 09/09/16 19:51 98 Nasal Cannula 3.00 09/09/16 17:45 97.3 71 20 163/79 97 -: 09/10/16 0720 09/10/16 0720 Physical Exam General Appearance: No Acute Distress, Comfortable Eyes Eye Exam: Pupils Equal Throat Throat Exam: Oral Mucosa [place] & Moist Pulmonary Resp Exam: No Distress, Rhonchi, Decreased Bases, Diminished Breath Sounds Cardiology CV Exam: Regular, Normal Sinus Rhythm Gastrointestinal/Abdomen GI Exam: Soft, Non-Tender, Bowel Sounds Present Extremeties Extremities Exam: Trace Edema Neurologic Neuro Exam: Alert, Awake, Oriented Psychiatric Psych Exam: Appropriate Responses Assessment/Plan Problem List: (1) ESRD (end stage renal disease) on dialysis Plan: Patient has received her dialysis today and 4 liters removed. She continued to have respiratory problem and hypoventilation syndrome We will continue to observe and hemodialysis will be done on Friday and Friday. Add Lasix, and also told to restrict fluid intake. (2) HTN (hypertension) Plan: Increase Lisinopril and D/C Minoxidil due to side effects. (3) Seizure Plan: Neurology following (4) Hypoxia Plan: Possibly related to hypoventilation syndrome (5) Acute respiratory failure with hypoxia and hypercapnia Plan: She has several documented episodes (6) Hypoventilation associated with obesity syndrome Plan: Closely observe in intensive care unit (7) DM neuropathies Plan: Continue to monitor Problem Qualifiers (1) HTN (hypertension): Qualified Code: I10 - Essential hypertension (2) DM neuropathies: Qualified Code: E11.42 - Diabetic polyneuropathy associated with type 2 diabetes mellitus Mia Medley MD Sep 10, 2016 16:49
--- NOTE | 2016-09-10 20:16 | HHI.PR ---
Subjective Remarks Alert and on O2 3L. Used Bipap at HS. No chest pain Objective Vital Signs Date Time Temp Pulse Resp B/P Pulse Ox O2 Delivery O2 Flow Rate FiO2 09/10/16 16:00 96.4 73 20 164/77 95 09/10/16 08:00 93 Nasal Cannula 2.00 09/10/16 08:00 97.5 68 20 144/70 96 09/10/16 07:36 97 Nasal Cannula 3.00 09/10/16 04:00 97.8 66 20 177/83 95 09/10/16 00:00 97.9 70 22 158/77 98 09/09/16 22:20 Nasal Cannula 2.00 I/O 09/09/16 09/09/16 09/09/16 09/10/16 09/10/16 09/10/16 07:00 15:00 23:00 07:00 15:00 23:00 Intake Total 240 ml 240 ml 240 ml 720 ml Output Total 100 ml 250 ml 350 ml 850 ml Balance -100 ml -10 ml -110 ml -610 ml 720 ml Intake Oral 240 ml 240 ml 240 ml 720 ml Output Urine Total 100 ml 250 ml 350 ml 850 ml # Voids 2 2 # Bowel Movements 1 0 0 0 0 Result Diagram: 09/10/1671909/10/16719 Objective Remarks GENERAL: This is a well-nourished, well-developed patient, in no apparent distress. CARDIOVASCULAR: Regular rate and rhythm without murmurs, gallops, or rubs. RESPIRATORY: Diffuse expiratory wheezes, diminished breath sounds bilaterally. Occ Crackles GASTROINTESTINAL: Abdomen soft, non-tender,nondistended. Normal active bowel sounds MUSCULOSKELETAL: Extremities without clubbing, cyanosis, but has edema. NEURO: Alert & Oriented .No gross deficit. Moves all ext x4 Assessment and Plan Assessment and Plan (1) ESRD (end stage renal disease) on dialysis (2) HTN (hypertension) (3) Seizure (4) Hypoxia (5) Acute respiratory failure with hypoxia and hypercapnia (6) Hypoventilation associated with obesity syndrome (7) DM neuropathies Plan : 1. O2 at 3L. 2. Nebs qid , duoneb. 3. Bipap at HS15/5 CM 30 % FIO2. 4. Dialysis in am 5. Arrange home O2 at 2 L 6. Arrange home CPAP machine Sheela Lau MD Sep 10, 2016 20:16
[2016-09-10] MEDS: REMOVE OLD PATCH T-DERMAL SCH (21:00)
[2016-09-10] MEDS: LISINOPRIL 20 MG TAB PO SCH (21:12)
[2016-09-10] MEDS: AMITRIPTYLINE HCL 50 MG TAB PO SCH (21:12)
[2016-09-10] MEDS: ATORVASTATIN 80 MG TAB PO SCH (21:13)
[2016-09-11] VITALS: BP 185/90; PULSE 83; RESP 20; TEMP 98; O2SAT 91
[2016-09-11 04:00] VITALS: BP 160/75; PULSE 72; RESP 16; TEMP 98.3; O2SAT 90
[2016-09-11] MEDS: CHLORHEXIDINE GLUCONATE 2 % 1 PACK (2 CLOTHS)(taper/protocol) TOP SCH (04:00)
[2016-09-11] MEDS: cloNIDine HCL 0.2 MG TAB PO SCH (05:46)
[2016-09-11] MEDS: NIFEdipine 10 MG CAP PO SCH (05:46)
[2016-09-11] MEDS: HEPARIN SODIUM - SQ 10,000 UNITS/ML VIAL SQ SCH (05:47)
[2016-09-11] MEDS: hydrALAZINE HCL 50 MG TAB PO SCH (05:47)
[2016-09-11] MEDS: INSULIN ASPART SUPPLEMENTAL SCALE SQ SCH (05:48)
[2016-09-11 08:00] VITALS: BP 164/75; PULSE 73; RESP 18; TEMP 98.5; O2SAT 96
[2016-09-11] MEDS: RESP: ALBUTEROL 2.5 MG/IPRATROPIUM 0.5 MG NEB (SCH) NEB ×2 (08:02→11:25)
[2016-09-11 08:03] VITALS: O2SAT 95
[2016-09-11] MEDS ORDERED: LISI-515 PO (08:44)
--- NOTE | 2016-09-11 08:45 | HHI.DS ---
Discharge Summary Admission Date Sep 07, 2016 at 23:44 Discharge Date: Sep 11, 2016 Admitting Diagnosis Hypoxia, acute respiratory failure . (1) Acute respiratory failure with hypoxia and hypercapnia ICD Code: J96.01 (2) Hypoxia ICD Code: R09.02 (3) Pulmonary edema ICD Code: J81.1 (4) Chronic diastolic congestive heart failure ICD Code: I50.32 (5) Diabetes ICD Code: E11.9 (6) HTN (hypertension) ICD Code: I10 (7) ESRD (end stage renal disease) on dialysis ICD Code: N18.6 (8) Hyperlipemia ICD Code: E78.5 (9) Nausea & vomiting ICD Code: R11.2 (10) Seizure ICD Code: R56.9 Procedures None Brief History - From Admission History of present illness from admitting physician Ms. Carnes is a 51 year-old female with a past medical history of CHF, hypertension, diabetes mellitus, and chronic kidney disease with recent prolonged hospitalization starting on July 15, 2016 with recurrent intubation for respiratory failure (x3) who was discharged to [facility] for inpatient rehabilitation on 08/22/2016. While she was [place] receiving rehabilitation, a stroke alert was called on 08/28 with a negative work-up. On 09/06/2016, there was some questionable seizure activity and the patient is currently being evaluated by Dr. Ny for this. Head CT was limited by motion degradation but was grossly stable and not acute. EEG showed mild encephalopathy and some occasional small flat sharp transients and sleep state. On 09/07/2016, a HALICAT was called after the patient's oxygen saturation had decreased to 60% with respiratory distress. The patient's ABGs showed CO2 retention with a PCO2 of 58, oxygen was titrated down after ABGs resulted. The decision was made to transfer the patient to [facility] at least overnight given her history of respiratory failure requiring intubation secondary to CO2 retention. The patient was seen in the ICU. She is having chills and feels warm to touch. Her oral temperature is 99.5. She is confused to date and states that the years 2014 and the President is Obama. She is oriented to self and is able to say that she is in a hospital in [place]. She denies shortness of breath , chest pain, and diarrhea. She reports nausea with vomiting but denies abdominal pain. She says that she does produce urine at times but denies dysuria. She appears to be breathing comfortably on 50% venturi mask. Chest x-ray consistent with pulmonary edema - x-ray personally reviewed and agree with findings. Lasix 40 mg IV was ordered. CBC/BMP: 09/10/16 0720 09/10/16 0720 Significant Findings Laboratory Tests Test 09/08/16 09/09/16 09/10/16 12:55 05:22 07:20 Blood Gas HCO3 27 mmol/L (22-26) Arterial Blood pH 7.35 (7.380-7.420) Arterial Blood Partial 50 mmHg (38-42) Pressure CO2 Arterial Blood Oxygen Content 11.1 Vol % (12.0-20.0) Blood Gas Hemoglobin 8.2 G/DL (12.0-16.0) Red Blood Count 3.79 MIL/MM3 3.96 MIL/MM3 (4.00-5.30) (4.00-5.30) Hemoglobin 8.0 GM/DL 8.5 GM/DL (11.6-15.3) (11.6-15.3) Hematocrit 26.5 % 27.1 % (35.0-46.0) (35.0-46.0) Mean Corpuscular Volume 69.9 FL 68.3 FL (80.0-100.0) (80.0-100.0) Mean Corpuscular Hemoglobin 21.1 PG 21.4 PG (27.0-34.0) (27.0-34.0) Mean Corpuscular Hemoglobin 30.3 % 31.3 % Concent (32.0-36.0) (32.0-36.0) Chloride Level 97 MEQ/L 97 MEQ/L (98-107) (98-107) Blood Urea Nitrogen 47 MG/DL (7-18) 53 MG/DL (7-18) Creatinine 5.29 MG/DL 5.04 MG/DL (0.50-1.00) (0.50-1.00) Estimat Glomerular Filtration 9 ML/MIN (>89) 9 ML/MIN (>89) Rate Random Glucose 150 MG/DL 197 MG/DL (74-106) (74-106) Calcium Level 8.4 MG/DL (8.5-10.1) Red Cell Distribution Width 17.7 % (11.6-17.2) Sodium Level 135 MEQ/L (136-145) Imaging Last Impressions Chest X-Ray 09/09/16 0600 Signed Impressions: Service Date/Time: Friday, September 09, 2016 03:33 - CONCLUSION: 1. Cardiomegaly with pulmonary edema. 2. Moderate right pleural effusion. Dylon Haley MD PE at Discharge GENERAL: Obese female in no acute distress CARDIOVASCULAR: Normal rate and regular rhythm without murmurs, gallops, or rubs. RESPIRATORY: Respiratory effort is fair. Diminished breath sounds bilaterally at the bases. GASTROINTESTINAL: Abdomen soft, non-tender, non-distended. Normal active bowel sounds MUSCULOSKELETAL: Extremities without cyanosis, or edema. NEURO: Alert & Oriented to person and place. Moves all ext x4 PSYCH: Calm. Pt update on day of discharge Patient reports she is feeling better. Anxious to get back to rehabilitation. She has been accepted back at [facility]. Hospital Course 51 year-old female with a past medical history of CHF, hypertension, diabetes mellitus, and chronic kidney disease with recent prolonged hospitalization starting on July 15, 2016 with recurrent intubation for respiratory failure ( x3) who was discharged to [facility] for inpatient rehabilitation on 2016 who was transferred back to the hospital 09/07/16 for acute respiratory failure. Evaluation and treatment course detailed below: Acute Hypercapnic Respiratory Failure with Hypoxia Pulmonary Edema Chronic diastolic congestive heart failure: Echocardiogram 07/23 reveals EF 45-50% . No regional motion abnormality. POOL 59 mmHg. Mild TR. -The patient was followed by pulmonology. She responded to BiPAP. I discussed the case with her fork lift technician, Dr. Lau. She is to remain on BiPAP at night. - Supplemental oxygen, titrate to keep oxygen sats around 92%. Type 2 diabetes mellitus - Continue Levemir 20 units subcutaneous every 12 hours - Accu-Cheks before meals and at bedtime with NovoLog sliding scale coverage - Hypoglycemia protocol End-stage renal disease requiring hemodialysis -Nephrology followed, on hemodialysis Hypertension: On Coreg 25mg BID, hydralazine TID, lisinopril 20 daily, clonidine 0.2 mg every 8 hours,Nifedipine at 30 mg by mouth every 8 hours and Minoxidil 2.5mg daily Controlled Hyperlipidemia - continue pravastatin Possible seizures - continue Keppra as ordered by neurology - EEG 09/07/15 showed mild encephalopathy with some occasional small frontal sharp transients in sleep state - neurology followed the patient. The patient has significant hypoventilation syndrome secondary to obesity. She also has sleep apnea. She needs to be on BiPAP at night 15/5 CM 30 % FIO2. She will need arrangements made for home CPAP. Beside medical and nephrology consult, consider Pulmonology consult while in rehab. Pt Condition on Discharge: Stable Discharge Disposition: Rehab Inpatient Discharge Time: > 30 minutes Discharge Instructions DIET: Follow Instructions for: Renal Failure Diet Activities you can perform: See Additionl Instruction Other Activity Instructions: Per PT instructions New Medications: Furosemide (Furosemide) 40 Mg Tab 40 MG PO DAILY #30 TAB Changed Medications: Lisinopril (Lisinopril) 20 Mg Tab 20 MG PO BID Blood Pressure Management #60 TAB (Changed from: DAILY; Removed Days) Continued Medications: Acetaminophen (Acetaminophen) 325 Mg Tab 650 MG PO Q4H PRN Fever/Pain 1-10 Days 1 TAB Carvedilol (Coreg) 12.5 Mg Tab 25 MG PO Q12HR Days 1 TAB Clonidine (Catapres) 0.1 Mg Tab 0.2 MG PO Q8HR Blood Pressure Management Days 30 TAB Docusate Sodium (Dok) 100 Mg Cap 100 MG PO BID Constipation Days 30 CAP Ergocalciferol (Drisdol) 50,000 Unit Cap 31268 UNITS PO Q7D ON TUESDAYS Nutritional Supplement #30 Ref 0 CAP Ferrous Sulfate (Ferrous Sulfate) 325 Mg Tab 325 MG PO BID Nutritional Supplement #60 Ref 0 TAB Gabapentin (Gabapentin) 300 Mg Cap 300 MG PO BID Pain Management #90 Ref 0 CAP Heparin Sodium (Porcine) (Heparin Sodium) 10,000 Unit/Ml Inj 5000 UNITS SQ Q12HR Days 1 INJECTION Hydralazine (Hydralazine) 50 Mg Tab 100 MG PO Q8HR Blood Pressure Management Days 30 TAB Insulin Detemir Inj (Levemir Inj) 1,000 unit/ 10 ML Vial 20 UNITS SQ Q12HR Days 1 INJECTION Levetiracetam (Keppra) 250 Mg Tab 250 MG PO Q12HR Days 1 TAB Nifedipine (Procardia) 10 Mg Cap 30 MG PO Q8HR Blood Pressure Management Days 30 CAP Pantoprazole (Pantoprazole) 40 Mg Tab 40 MG PO DAILY Reflux #30 Ref 0 TAB Discontinued Medications: Minoxidil (Minoxidil) 2.5 Mg Tab 2.5 MG PO DAILY Blood Pressure Management #30 Ref 0 TAB Minoxidil (Minoxidil) 2.5 Mg Tab 2.5 MG PO DAILY Days 1 TAB Carey Coombs MD Sep 11, 2016 08:44
[2016-09-11] MEDS ORDERED: FUROSEMIDE 40 MG TAB PO SCH (09:00)
[2016-09-11] MEDS: GABAPENTIN 300 MG CAP PO SCH (09:16)
[2016-09-11] MEDS: predniSONE 5 MG TAB PO SCH (09:17)
[2016-09-11] MEDS: LIDOCAINE HCL 5% PATCH TD SCH (09:17)
[2016-09-11] MEDS: PANTOPRAZOLE SOD 40 MG DELAYED RELEASE TAB PO SCH (09:17)
[2016-09-11] MEDS: LISINOPRIL 20 MG TAB PO SCH (09:17)
[2016-09-11] MEDS: CARVEDILOL 12.5 MG TAB PO SCH (09:23)
[2016-09-11] MEDS: INSULIN DETEMIR 100 UNITS/ML VIAL SQ SCH (09:29)
[2016-09-11] MEDS: levETIRAcetam 250 MG TAB PO SCH (09:56)
[2016-09-11] MEDS ORDERED: FURO40TA PO (10:26)
[2016-09-18] MEDS ORDERED: ONDA4TAB7 PO (09:13)
[2016-09-18] MEDS ORDERED: FERR325T PO (09:13)
[2016-09-18] MEDS ORDERED: DOCU1CAP39 PO (09:13)
[2016-09-18] MEDS ORDERED: CARV12.5 PO (09:13)
[2016-09-18] MEDS ORDERED: ATOR1TAB18 PO (09:13)
[2016-09-18] MEDS ORDERED: LEVEMIR SQ (09:13)
[2016-09-18] MEDS ORDERED: PANT40TA3 PO (09:13)
[2016-09-18] MEDS ORDERED: LISI-515 PO (09:13)
[2016-09-18] MEDS ORDERED: HYDR50TA15 PO (09:13)
[2016-09-18] MEDS ORDERED: ACET325T PO (09:13)
[2016-09-18] MEDS ORDERED: NEUR300C PO (09:13)
[2016-09-18] MEDS ORDERED: LEVE250 PO (09:13)
[2016-09-18] MEDS ORDERED: FURO40TA PO ×2 (09:13→09:20)
[2016-09-18] MEDS ORDERED: CLON.1 PO ×2 (09:13)
[2016-09-18] MEDS ORDERED: NIFE10 PO (09:13)
[2016-10-20] MEDS ORDERED: CLON0.1T PO (09:11)
[2016-10-20] MEDS ORDERED: FURO1TAB62 PO (09:11)
[2016-10-20] MEDS ORDERED: NIFE10 PO (09:11)
[2016-10-20] MEDS ORDERED: CARV6.25 PO (09:11)
[2016-10-20] MEDS ORDERED: OMEP20TA PO (09:11)
[2016-12-12] MEDS ORDERED: FERR325T2 PO (06:45)
== END 2016-09-11 12:05 | DRG 189 ==
LOC: HIME 23:44 → N04A 09-09 17:54
PROVIDERS: ADMIT Family Medicine; ATTEND Family Medicine
PROC: 5A09357 Assistance with Respiratory Ventilation, Less than 24 Consecutive Hours, Continuous Positive Airway Pressure (ICD-10-PCS; principal; 2016-09-08)
PROC: 5A1D00Z (ICD-10-PCS; 2016-09-09)
DX: J96.01 Acute respiratory failure with hypoxia (principal); I50.32 Chronic diastolic (congestive) heart failure; I12.0 Hypertensive chronic kidney disease with stage 5 chronic kidney disease or end stage renal disease; N18.6 End stage renal disease; Z68.41 Body mass index [BMI] 40.0-44.9, adult; E66.2 Morbid (severe) obesity with alveolar hypoventilation; J96.02 Acute respiratory failure with hypercapnia; E11.22 Type 2 diabetes mellitus with diabetic chronic kidney disease; E11.40 Type 2 diabetes mellitus with diabetic neuropathy, unspecified; Z99.2 Dependence on renal dialysis; Z79.4 Long term (current) use of insulin; G47.33 Obstructive sleep apnea (adult) (pediatric); R56.9 Unspecified convulsions; E78.5 Hyperlipidemia, unspecified; Z86.14 Personal history of Methicillin resistant Staphylococcus aureus infection; Z87.01 Personal history of pneumonia (recurrent); Z87.891 Personal history of nicotine dependence; M47.812 Spondylosis without myelopathy or radiculopathy, cervical region
CPT/HCPCS: 36600; 71010; 80048; 80053; 82140; 82805; 82948; 83880; 84484; 85025; 85027; 87040; 87641; 90935; 94002; 94003; 94640; 94664; 96374; 96375; J1580; J1644; J1815; J1940; J7512; Q4081

== ENCOUNTER 2016-10-20 08:49 | Emergency (ER) | payer MEDICAID ==
[~2016-10-20] VITALS: Ht 170.2 cm; Wt 97.0 kg
[~2016-10-20 08:49] MED LIST changes: -AMIT50TA3 PO; -Amitriptyline PO; -CARV25TA PO; -CLON.2 PO; -DRIS50002 PO; +FURO40TA PO; -GABA300C5 PO; -HEPA10003 SQ; -LIDO5DIS35 TD; -LIPI80TA PO; -LISI10TA3 PO; -MINO2.5T PO; -NITR1SUB3 SL; -NOVORP2 SQ; -NYST15T TOPICAL; +ONDA4TAB7 PO; -OXYGENTANK NAS.CANULA; -SENN8.6T15 PO; -hydrALAZINE PO
[2016-10-20 08:51] VITALS: BP 203/115; PULSE 88; RESP 24; TEMP 97.5; O2SAT 100
[2016-10-20] MEDS ORDERED: NIFE10 PO ×2 (09:11)
[2016-10-20] MEDS ORDERED: OMEP20TA PO ×2 (09:11)
[2016-10-20] MEDS ORDERED: CARV6.25 PO ×2 (09:11)
[2016-10-20] MEDS ORDERED: FURO1TAB62 PO ×2 (09:11)
[2016-10-20] MEDS ORDERED: CLON0.1T PO ×2 (09:11)
[2016-10-20] MEDS ORDERED: ONDANSETRON HCL 4 MG/2 ML VIAL IVP ONE (09:15)
[2016-10-20] MEDS ORDERED: FAMOTIDINE 20 MG/2 ML VIAL IV PUSH ONE (09:15)
[2016-10-20] MEDS ORDERED: SODIUM CHLORIDE 0.9% FLUSH 10 ML FLUSH IV FLUSH PRN (09:15)
[2016-10-20] MEDS ORDERED: MORPHINE SULFATE 4 MG/ML INJ IV PUSH ONE (09:15)
[2016-10-20 09:35] VITALS: O2SAT 96
[2016-10-20 09:39] LABS: AUTOMATED NEUTROPHIL # 5.6 TH/MM3 (1.8-7.7); BASOPHIL # 0.1 TH/MM3 (0-0.2); EOSINOPHIL # 1.3 TH/MM3 (0-0.4); EOSINOPHIL % 14.7 % (0.0-4.0); HEMATOCRIT 38.7 % (35.0-46.0); LYMPH % 14.9 % (9.0-44.0); LYMPHOCYTE # 1.3 TH/MM3 (1.0-4.8); MEAN CELL VOLUME 71.5 FL (80.0-100.0); MEAN CORPUSCULAR HEMOGLOBIN 22.3 PG (27.0-34.0); MEAN CORPUSCULAR HGB CONC 31.3 % (32.0-36.0); MONO % 6.3 % (0.0-8.0); NEUT % 63.1 % (16.0-70.0); PLATELET COUNT 170 TH/MM3 (150-450); RED BLOOD COUNT 5.42 MIL/MM3 (4.00-5.30); RED CELL DISTRIBUTION WIDTH 21.9 % (11.6-17.2); WHITE BLOOD COUNT 8.9 TH/MM3 (4.0-11.0)
[2016-10-20 09:42] LABS: HEMO FLAGS AUTO DIFF
[2016-10-20 09:49] LABS: APTT (PATIENT) 24.4 SEC (24.3-30.1); PROTHROMBIN TIME - PATIENT 11.6 SEC (9.8-11.6)
--- NOTE | 2016-10-20 09:52 | RADRPT ---
EXAM DATE/TIME: 10/20/2016 09:36 [facility] COMPARISON: No previous studies available for comparison. INDICATIONS : Abdomen pain; vomiting ORAL CONTRAST: No oral contrast ingested. RADIATION DOSE: 15.26 CTDIvol (mGy) MEDICAL HISTORY : Renal failure, chronic. Congestive heart failure. Cardiovascular disease SURGICAL HISTORY : None. ENCOUNTER: Initial ACUITY: 1 day PAIN SCALE: 5/10 LOCATION: Bilateral abdomen. TECHNIQUE: Volumetric scanning of the abdomen and pelvis was performed. Using automated exposure control and ad justment of the mA and/or kV according to patient size, radiation dose was kept as low as reasonably achievable to obtain optimal diagnostic quality images. FINDINGS: LOWER LUNGS: The visualized lower lungs are clear. LIVER: Homogeneous density without lesion. There is no dilation of the biliary tree. No calcified gallston es. The gallbladder is unremarkable in appearance SPLEEN: At the upper limits of normal in size with no focal lesion. PANCREAS: Within normal limits. KIDNEYS: Normal in size and shape. There is no mass, stone, or hydronephrosis. ADRENAL GLANDS: Within normal limits. VASCULAR: There is no aortic aneurysm. BOWEL/MESENTERY: The stomach, small bowel, and colon demonstrate no acute abnormality. There is no free intraperitone al air or fluid. ABDOMINAL WALL: Within normal limits. There is evidence of anasarca. RETROPERITONEUM: There are multiple small reactive appearing retroperitoneal lymph nodes without definite adenopathy. BLADDER: No wall thickening or mass. REPRODUCTIVE: Within normal limits. INGUINAL: There is no lymphadenopathy or hernia. MUSCULOSKELETAL: Within normal limits for patient age. CONCLUSION: 1. Unremarkable bowel gas pattern with no inflammatory change or obstruction. 2. Unremarkable appearing gallbladder. 3. Evidence of anasarca. 4. The spleen is at the upper limits of normal in size. Grady Hale MD on October 20, 2016 at 9:46 Board Certified Radiologist. This report was verified electronically.
[2016-10-20 10:05] LABS: TOTAL BILIRUBIN ADULT 0.8 MG/DL (0.2-1.0)
[2016-10-20 10:08] VITALS: BP 213/105; PULSE 74; RESP 14; O2SAT 95
[2016-10-20 10:24] LABS: BICARBONATE 24.8 MEQ/L (21.0-32.0); INDIRECT BILIRUBIN 0.7 MG/DL (0.0-0.8); POTASSIUM 4.4 MEQ/L (3.5-5.1)
[2016-10-20 10:28] LABS: BANDS 2 % (0-6); EOSINOPHILS 22 % (0-4); NEUTROPHIL # MANUAL DIFF 5.8 TH/MM3 (1.8-7.7); POLYS (SEG NEUTROPHILS) 63 % (16-70); WBC DIFF SAMPLE 100
[2016-10-20 10:29] LABS: PLATELET ESTIMATE SMEAR NORMAL (NORMAL); PLATELET MORPHOLOGY NORMAL (NORMAL); SCAN/DIFF FINAL DIFF MANUAL
[2016-10-20] MEDS ORDERED: ONDANSETRON HCL 4 MG/2 ML VIAL IV PUSH ONE (11:00)
[2016-10-20] MEDS ORDERED: cloNIDine HCL 0.2 MG TAB PO ONE (11:00)
[2016-10-20 11:30] LABS: BACTERIA, URINE RARE /hpf; BLOOD, URINE SMALL (NEG); COMMENT (UR) CULTURE INDICATED; CULTURE IF INDICATED CULTURE INDICATED; GLUCOSE,URINE 1000 mg/dL (NEG); HYALINE CAST, URINE 16 /lpf (RARE); KETONE, URINE NEG (NEG); MUCUS URINE FEW /lpf (OCC); NITRITE,URINE NEG (NEG); PH, URINE 6.5 (5.0-8.5); SQUAMOUS EPITHELIAL CELL URINE 2 /hpf (0-5); URINE COLOR YELLOW (YELLW/STRAW)
[2016-10-20 11:43] VITALS: BP 196/98; PULSE 75; RESP 18; O2SAT 97
[2016-10-20] MEDS ORDERED: MACR100C2 PO (11:52)
[2016-10-20] MEDS ORDERED: ZOFR4TAB3 SL (11:52)
--- NOTE | 2016-10-20 11:53 | PD ---
HPI Chief Complaint: Abdominal Pain Time Seen by Provider: 09:09 Travel History International Travel<30 days: No Contact w/Intl Traveler<30days: No Traveled to known affect area: No History of Present Illness HPI Patient is a 51-year-old female with history of end-stage renal disease who comes in complaining of nausea, vomiting, diarrhea. She had dialysis on and Friday this week, and did not go Friday. She is normally scheduled for Friday, , Friday. She says for the past 4 days she has not been feeling well with the nausea, vomiting, diarrhea. She says she has pain to the right side of her abdomen. She recently had a prolonged stay in the hospital for respiratory failure in his recently been started on dialysis within the past month. She says she will leave she is feeling unwell because she is adjusting to the dialysis. She denies fever or chills. She denies chest pain or shortness of breath. PFSH Past Medical History Hx Anticoagulant Therapy: Yes Arthritis: No Asthma: No Autoimmune Disease: No Anxiety: No Depression: Yes Heart Rhythm Problems: No Cancer: No Cardiovascular Problems: Yes High Cholesterol: Yes Chemotherapy: No Chest Pain: No Congestive Heart Failure: Yes COPD: No Cerebrovascular Accident: Yes Diabetes: Yes (type 2) Patient Takes Glucophage: No Diminished Hearing: No Endocrine: Yes GERD: Yes Genitourinary: Yes (ESRD WITH DIALYSIS //fri) Hiatal Hernia: No Hypertension: Yes Immune Disorder: No Implanted Vascular Access Dvce: Yes Kidney Stones: No Musculoskeletal: No Neurologic: Yes Psychiatric: Yes Reproductive: No Respiratory: Yes Immunizations Current: No Migraines: No Radiation Therapy: No Renal Failure: Yes (d/t dye for cardiac stent insertions) Seizures: Yes Sickle Cell Disease: No Sleep Apnea: Yes (Wear CPAP ) Thyroid Disease: No Ulcer: No Tetanus Vaccination: > 5 Years Influenza Vaccination: Yes ?: Not Menopausal: Yes : 3 Para: 3 Miscarriage: 0 Past Surgical History Abdominal Surgery: No AICD: No Arteriovenous Shunt: No Body Medical Devices: RIGHT CHEST DIALYSIS ACCESS, CARDIAC STENTS Cardiac Surgery: Yes (STENTS (2) ) Section: Yes Ear Surgery: No Endocrine Surgery: No Eye Surgery: No Genitourinary Surgery: No Gynecologic Surgery: Yes () Insulin Pump: No Joint Replacement: No Oral Surgery: No Pacemaker: No Thoracic Surgery: No Other Surgery: Yes (CARDIAC CATH 2015) Social History Alcohol Use: No Tobacco Use: No Substance Use: No Allergies-Medications (Allergen,Severity, Reaction): Coded Allergies: Lyrica (Verified Allergy, Severe, Anaphylaxis, 10/21/16) *MDRO Multi-Drug Resistant Organism (Verified Adverse Reaction, Unknown, ) MRSA (sputum)-07/20/16 MRSA PCR Screen POSITIVE - 07/18/2016 Reported Meds & Prescriptions Reported Meds & Active Scripts Active Macrobid (Nitrofurantoin Monoh/Nitrofur Macro) 100 Mg Cap 100 Mg PO BID 5 Days Zofran Odt (Ondansetron Odt) 4 Mg Tab 4 Mg SL Q6HR PRN Levemir Inj (Insulin Detemir) 1,000 unit/ 10 ML Vial 22 Units SQ Q12HR Neurontin (Gabapentin) 300 Mg Cap 300 Mg PO DAILY Lisinopril 20 Mg Tab 20 Mg PO BID Reported Lasix (Furosemide) 20 Mg Tab 20 Mg PO BID Omeprazole 20 Mg Tab 20 Mg PO DAILY Procardia (Nifedipine) 10 Mg Cap 10 Mg PO BID Clonidine (Clonidine HCl) 0.1 Mg Tab 0.1 Mg PO DAILY Coreg (Carvedilol) 6.25 Mg Tab 6.25 Mg PO BID Review of Systems Except as stated in HPI: all other systems reviewed are Neg General / Constitutional: No: Fever, Chills HENT: No: Headaches, Lightheadedness Cardiovascular: No: Chest Pain or Discomfort Respiratory: No: Shortness of Breath Gastrointestinal: Positive: Nausea, Vomiting, Diarrhea Musculoskeletal: No: Myalgias, Edema, Pain Skin: No Rash Neurologic: No: Weakness, Dizziness Physical Exam Narrative GENERAL: Awake and alert, in no acute distress. SKIN: Focused skin assessment warm/dry. HEAD: Atraumatic. Normocephalic. EYES: Pupils equal and round. No scleral icterus. ENT: Mucous membranes pink and moist. NECK: Trachea midline. No JVD. CARDIOVASCULAR: Regular rate and rhythm. No murmur appreciated. RESPIRATORY: No accessory muscle use. Clear to auscultation. Breath sounds equal bilaterally. GASTROINTESTINAL: Abdomen soft, nondistended. Tender to palpation of the right side of the abdomen. No rebound or guarding. No CVA tenderness. MUSCULOSKELETAL: No obvious deformities. No clubbing. No cyanosis. No edema. NEUROLOGICAL: Awake and alert. No obvious cranial nerve deficits. Motor grossly within normal limits. Normal speech. PSYCHIATRIC: Appropriate mood and affect; insight and judgment normal. Data Data Last Documented VS Vital Signs Date Time Temp Pulse Resp B/P Pulse Ox O2 Delivery O2 Flow Rate FiO2 10/20/16 11:43 75 18 196/98 97 Room Air 10/20/16 08:51 97.5 Orders Basic Metabolic Panel (Bmp) (10/20/16 09:13) Complete Blood Count With Diff (10/20/16 09:13) Lipase (10/20/16 09:13) Prothrombin Time / Inr (Pt) (10/20/16 09:13) Act Partial Throm Time (Ptt) (10/20/16 09:13) Urinalysis - C+S If Indicated (10/20/16 09:13) Ua Includes Microscopic (10/20/16 09:13) Ct Abd/Pel W/O Iv Contrast (10/20/16 09:13) Iv Access Insert/Monitor (10/20/16 09:13) Ecg Monitoring (10/20/16 09:13) Oximetry (10/20/16 09:13) Morphine Inj (Morphine Inj) (10/20/16 09:15) Ondansetron Inj (Zofran Inj) (10/20/16 09:15) Sodium Chloride 0.9% Flush (Ns Flush) (10/20/16 09:15) Electrocardiogram (10/20/16 09:13) Famotidine Inj (Pepcid Inj) (10/20/16 09:15) Lactic Acid (10/20/16 09:25) Hepatic Functional Panel (10/20/16 09:20) Clonidine (Catapres) (10/20/16 11:00) Ondansetron Inj (Zofran Inj) (10/20/16 11:00) Urine Culture (10/20/16 11:10) Labs Laboratory Tests Test 10/20/16 10/20/16 10/20/16 09:20 09:30 11:10 White Blood Count 8.9 TH/MM3 Red Blood Count 5.42 MIL/MM3 Hemoglobin 12.1 GM/DL Hematocrit 38.7 % Mean Corpuscular Volume 71.5 FL Mean Corpuscular Hemoglobin 22.3 PG Mean Corpuscular Hemoglobin 31.3 % Concent Red Cell Distribution Width 21.9 % Platelet Count 170 TH/MM3 Mean Platelet Volume 9.0 FL Neutrophils (%) (Auto) 63.1 % Lymphocytes (%) (Auto) 14.9 % Monocytes (%) (Auto) 6.3 % Eosinophils (%) (Auto) 14.7 % Basophils (%) (Auto) 1.0 % Neutrophils # (Auto) 5.6 TH/MM3 Lymphocytes # (Auto) 1.3 TH/MM3 Monocytes # (Auto) 0.6 TH/MM3 Eosinophils # (Auto) 1.3 TH/MM3 Basophils # (Auto) 0.1 TH/MM3 CBC Comment AUTO DIFF Differential Total Cells 100 Counted Neutrophils % (Manual) 63 % Band Neutrophils % 2 % Lymphocytes % 9 % Monocytes % 4 % Eosinophils % 22 % Neutrophils # (Manual) 5.8 TH/MM3 Differential Comment FINAL DIFF MANUAL Platelet Estimate NORMAL Platelet Morphology Comment NORMAL Prothrombin Time 11.6 SEC Prothromb Time International 1.0 RATIO Ratio Activated Partial 24.4 SEC Thromboplast Time Sodium Level 141 MEQ/L Potassium Level 4.4 MEQ/L Chloride Level 108 MEQ/L Carbon Dioxide Level 24.8 MEQ/L Anion Gap 8 MEQ/L Blood Urea Nitrogen 25 MG/DL Creatinine 2.62 MG/DL Estimat Glomerular Filtration 19 ML/MIN Rate Random Glucose 242 MG/DL Calcium Level 9.2 MG/DL Total Bilirubin 0.8 MG/DL Direct Bilirubin 0.1 MG/DL Indirect Bilirubin 0.7 MG/DL Aspartate Amino Transf 30 U/L (AST/SGOT) Alanine Aminotransferase 17 U/L (ALT/SGPT) Alkaline Phosphatase 94 U/L Total Protein 7.6 GM/DL Albumin 3.0 GM/DL Lipase 302 U/L Lactic Acid Level 1.2 mmol/L Urine Color YELLOW Urine Turbidity HAZY Urine pH 6.5 Urine Specific [place] 1.023 Urine Protein GREATER THAN 600 mg/dL Urine Glucose (UA) 1000 mg/dL Urine Ketones NEG mg/dL Urine Occult Blood SMALL Urine Nitrite NEG Urine Bilirubin NEG Urine Urobilinogen LESS THAN 2.0 MG/DL Urine Leukocyte Esterase NEG Urine RBC 8 /hpf Urine WBC 10 /hpf Urine Squamous Epithelial 2 /hpf Cells Urine Bacteria RARE /hpf Urine Hyaline Casts 16 /lpf Urine Mucus FEW /lpf Microscopic Urinalysis Comment CULTURE INDICATED MDM Medical Decision Making Medical Screen Exam Complete: Yes Emergency Medical Condition: Yes Medical Record Reviewed: Yes Interpretation(s) ECG shows sinus rhythm at 76, no ST elevation or depression, T-wave inversion in lead 1 and lead aVL. Differential Diagnosis Gastroenteritis versus cholecystitis versus UTI Narrative Course Patient is a 51-year-old female comes in complaining of nausea, vomiting, diarrhea. Exam shows tenderness of right-sided abdomen. IV established, labs sent. Patient given Zofran and morphine. A creatinine of 2.6, BUNs 25, potassium is 4.4. White blood cell count is within normal limits. CT abdomen and pelvis shows no acute abnormalities. Last 24 hours Impressions Abdomen/Pelvis CT 10/20/16 0913 Signed Impressions: Service Date/Time: Thursday, October 20, 2016 09:36 - CONCLUSION: 1. Unremarkable bowel gas pattern with no inflammatory change or obstruction. 2. Unremarkable appearing gallbladder. 3. Evidence of anasarca. 4. The spleen is at the upper limits of normal in size. Grady Hale MD Urinalysis is positive for bacteria. We'll treat with Macrobid. Patient is able to drink water without vomiting. We'll discharge with prescription for Zofran. Patient advised to go to dialysis as scheduled. Advised follow-up with her doctors. Advised to return to the ED at any time for any worsening symptoms. She is comfortable with discharge at this time. Diagnosis Primary Impression: Nausea, vomiting and diarrhea Additional Impression: UTI (urinary tract infection) Qualified Code: N30.00 - Acute cystitis without hematuria Patient Instructions: Acute Nausea and Vomiting (ED), General Instructions, Urinary Tract Infection in Women (ED) Additional Instructions: Take all of your antibiotic. Take Zofran as needed for nausea. Make sure you go to dialysis as scheduled. Follow up with your doctors. Return to the ED as needed for any worsening symptoms. Scripts Nitrofurantoin Monohydrate Macrocrystals (Macrobid)100 Mg [id number] Mg PO BID 5 Days Ref 0 Prov:Merissa Joshi MD 10/20/16 Ondansetron Odt (Zofran Odt)4 Mg Tab4 Mg SL Q6HR PRN (Nausea/Vomiting) #12 TAB Ref 0 Prov:Merissa Joshi MD 5/7/17 Disposition: 01 DISCHARGE HOME Condition: Stable Gershen,Merissa B MD October 20, 2016 11:53
--- NOTE | 2016-10-21 11:30 | EKG ---
Date Performed: 10/20/2016 Time Performed: 09:23:26 PTAGE: 51 years EKG: Sinus rhythm BORDERLINE LEFT AXIS DEVIATION LEFT VENTRICULAR HYPERTROPHY AND ST-T CHANGE ABNORMAL ECG PREVIOUS TRACING : 07/23/2016 21.24 DOCTOR: Issac Olivares Interpretating Date/Time 10/21/2016 11:22:44
[2016-12-12] MEDS ORDERED: FERR325T2 PO (06:45)
== END 2016-10-20 12:08 | disposition home or self-care (01) ==
LOC: NEPC 08:49
DX: N30.00 Acute cystitis without hematuria (principal); B96.89 Other specified bacterial agents as the cause of diseases classified elsewhere; R19.7 Diarrhea, unspecified; R11.2 Nausea with vomiting, unspecified; I12.0 Hypertensive chronic kidney disease with stage 5 chronic kidney disease or end stage renal disease; N18.6 End stage renal disease; Z99.2 Dependence on renal dialysis
CPT/HCPCS: 74176; 80048; 80076; 81001; 83605; 83690; 85007; 85027; 85610; 85730; 87086; 93005; 96374; 96375; 96376; 99284; J2270; J2405

== ENCOUNTER 2016-10-21 19:40 | Inpatient (IN) | payer MEDICAID ==
[~2016-10-21] VITALS: Ht 170.2 cm; Wt 97.0 kg
[~2016-10-21 19:40] MED LIST changes: +CARV6.25 PO; +CLON0.1T PO; +FURO1TAB62 PO; +MACR100C2 PO; +OMEP20TA PO; +ZOFR4TAB3 SL
[2016-10-21 19:43] VITALS: BP_SYST 208; BP_DIAS 106; BP_DIAS 196; PULSE 78; RESP 16; TEMP 98.7; O2SAT 97
--- NOTE | 2016-10-21 19:54 | PD ---
Physical Exam Time Seen by Provider: 19:50 Narrative 51yo F w/ c/o QUIROGA, nausea, and vomiting x3-4 days. Denies fever. Reports chills. Last dialysis on Friday. Denies Hx of QUIROGA. Hx of HTN and took medication this morning. BP elevated in triage 211/105. VS reviewed. Patient seen in triage. Awaiting bed placement. Data Data Last Documented VS Vital Signs Date Time Temp Pulse Resp B/P Pulse Ox O2 Delivery O2 Flow Rate FiO2 10/21/16 19:43 98.7 78 16 208/196 97 Room Air [facility] Supervised Visit with MONTY: Faith Fitzpatrick October 21, 2016 19:54
[2016-10-21 22:05] VITALS: RESP 18; O2SAT 98
[2016-10-21] MEDS ORDERED: SODIUM CHLORIDE 0.9% FLUSH 10 ML FLUSH IVF PRN (22:30)
[2016-10-21] MEDS ORDERED: ONDANSETRON HCL 4 MG/2 ML VIAL IVP ONE (22:30)
--- NOTE | 2016-10-21 22:43 | RADRPT ---
EXAM DATE/TIME: 10/21/2016 22:32 [place] COMPARISON: CHEST SINGLE AP, September 09, 2016, 3:33. INDICATIONS : Vomiting for 1 week. Slight shortness of breath. MEDICAL HISTORY : Renal failure, chronic. Congestive heart failure. Cardiovascular disease. SURGICAL HISTORY : Dialysis port placement. ENCOUNTER: Initial ACUITY: 1 week PAIN SCORE: 0/10 LOCATION: Bilateral chest FINDINGS: A single view of the chest demonstrates the lungs to be symmetrically aerated without evidence of mas s, infiltrate or effusion. The cardiomediastinal contours are unremarkable. Osseous structures are intact. A right chest dialysis catheter is present in good position. CONCLUSION: No acute disease Adolfo Thomas MD on October 21, 2016 at 22:41 Board Certified Radiologist. This report was verified electronically.
--- NOTE | 2016-10-21 22:44 | PD ---
HPI Chief Complaint: GI Complaint Time Seen by Provider: 22:18 Travel History International Travel<30 days: No Contact w/Intl Traveler<30days: No Traveled to known affect area: No History of Present Illness HPI Patient comes back to the emergency department complaining of continued nausea and vomiting ongoing for approximately week now. Patient states she was seen here in the emergency department yesterday for the same was prescribed medications that she has been taking, however she continues to have the nausea and vomiting. Patient denies any pain anywhere. Denies any chest pain, shortness of breath, abdominal pain, back pain, numbness or tingling anywhere, fevers, headache, or change in bowel or bladder. Patient reports associated chills. Patient states she was unable to go to dialysis Friday or today secondary to the nausea and vomiting. Patient states she went to dialysis multiple times last week was only able to tolerate it for about an hour to an hour and a half each time. PFSH Past Medical History Hx Anticoagulant Therapy: Yes Arthritis: No Asthma: No Autoimmune Disease: No Anxiety: No Depression: Yes Heart Rhythm Problems: No Cancer: No Cardiovascular Problems: Yes High Cholesterol: Yes Chemotherapy: No Chest Pain: No Congestive Heart Failure: Yes COPD: No Cerebrovascular Accident: Yes Diabetes: Yes (type 2) Diminished Hearing: No Endocrine: Yes GERD: Yes Genitourinary: Yes (ESRD WITH DIALYSIS //fri) Hiatal Hernia: No Hypertension: Yes Immune Disorder: No Implanted Vascular Access Dvce: Yes Kidney Stones: No Musculoskeletal: No Neurologic: Yes Psychiatric: Yes Reproductive: No Respiratory: Yes Immunizations Current: No Migraines: No Radiation Therapy: No Renal Failure: Yes (d/t dye for cardiac stent insertions) Seizures: Yes Sickle Cell Disease: No Sleep Apnea: Yes (Wear CPAP ) Thyroid Disease: No Ulcer: No Menopausal: Yes : 3 Para: 3 Miscarriage: 0 Past Surgical History Abdominal Surgery: No AICD: No Arteriovenous Shunt: No Body Medical Devices: RIGHT CHEST DIALYSIS ACCESS, CARDIAC STENTS Cardiac Surgery: Yes (STENTS (2) ) Section: Yes Ear Surgery: No Endocrine Surgery: No Eye Surgery: No Genitourinary Surgery: No Gynecologic Surgery: Yes () Insulin Pump: No Joint Replacement: No Oral Surgery: No Pacemaker: No Thoracic Surgery: No Other Surgery: Yes (CARDIAC CATH 2015) Social History Alcohol Use: No Tobacco Use: No Substance Use: No Allergies-Medications (Allergen,Severity, Reaction): Coded Allergies: Lyrica (Verified Allergy, Severe, Anaphylaxis, 10/21/16) *MDRO Multi-Drug Resistant Organism (Verified Adverse Reaction, Unknown, ) MRSA (sputum)-07/20/16 MRSA PCR Screen POSITIVE - 07/18/2016 Reported Meds & Prescriptions Reported Meds & Active Scripts Active Macrobid (Nitrofurantoin Monoh/Nitrofur Macro) 100 Mg Cap 100 Mg PO BID 5 Days Zofran Odt (Ondansetron Odt) 4 Mg Tab 4 Mg SL Q6HR PRN Levemir Inj (Insulin Detemir) 1,000 unit/ 10 ML Vial 22 Units SQ Q12HR Neurontin (Gabapentin) 300 Mg Cap 300 Mg PO DAILY Lisinopril 20 Mg Tab 20 Mg PO BID Reported Lasix (Furosemide) 20 Mg Tab 20 Mg PO BID Omeprazole 20 Mg Tab 20 Mg PO DAILY Procardia (Nifedipine) 10 Mg Cap 10 Mg PO BID Clonidine (Clonidine HCl) 0.1 Mg Tab 0.1 Mg PO DAILY Coreg (Carvedilol) 6.25 Mg Tab 6.25 Mg PO BID Review of Systems Except as stated in HPI: all other systems reviewed are Neg Physical Exam Narrative GENERAL: Well-developed, overly nourished, in no acute distress, and non-ill appearing. SKIN: Focused skin assessment warm and dry. HEAD: Atraumatic. Normocephalic. EYES: Pupils equal and round. EOMI. No scleral icterus. No injection or drainage. ENT: No nasal bleeding or discharge. Mucous membranes pink and moist. NECK: Trachea midline. No JVD. Supple. No nuclear rigidity. CARDIOVASCULAR: Regular rate and rhythm. Murmur appreciated. RESPIRATORY: No accessory muscle use. No respiratory distress. Clear to auscultation. Breath sounds equal bilaterally. GASTROINTESTINAL: Abdomen soft, nondistended. Hepatic and splenic margins not palpable. Normal bowel sounds 4. No pulsatile mass. Patient reports tenderness to palpation across lower abdomen. MUSCULOSKELETAL: No obvious deformities. No clubbing. No cyanosis. No edema. Full range of motion. NEUROLOGICAL: Awake and alert. No obvious cranial nerve deficits. Motor grossly within normal limits. Normal speech. PSYCHIATRIC: Appropriate mood and affect; insight and judgment normal. Data Data Last Documented VS Vital Signs Date Time Temp Pulse Resp B/P Pulse Ox O2 Delivery O2 Flow Rate FiO2 10/21/16 22:05 18 98 Room Air 10/21/16 19:43 98.7 78 208/106 Orders Complete Blood Count With Diff (10/21/16 22:20) Comprehensive Metabolic Panel (10/21/16 22:20) Lipase (10/21/16 22:20) Iv Access Insert/Monitor (10/21/16 22:20) Ecg Monitoring (10/21/16 22:20) Oximetry (10/21/16 22:20) Ondansetron Inj (Zofran Inj) (10/21/16 22:30) Sodium Chloride 0.9% Flush (Ns Flush) (10/21/16 22:30) Chest, Single Ap (10/21/16 22:20) MDM Medical Decision Making Medical Screen Exam Complete: Yes Emergency Medical Condition: Yes Differential Diagnosis Pneumonia, sepsis, vomiting, electrolyte abnormality, dehydration, other Narrative Course Patient was seen and examined. Initial laboratory radiology studies were ordered. Patient was given Zofran for nausea. Patient was signed out to Dr. Hopper at the end of my shift. Please see his documentation for final diagnosis and disposition. Ezra Goddard October 21, 2016 22:44
[2016-10-21 22:53] LABS: AUTOMATED NEUTROPHIL # 3.8 TH/MM3 (1.8-7.7); BASOPHIL # 0.1 TH/MM3 (0-0.2); EOSINOPHIL # 1.4 TH/MM3 (0-0.4); EOSINOPHIL % 19.5 % (0.0-4.0); HEMATOCRIT 36.9 % (35.0-46.0); LYMPH % 18.8 % (9.0-44.0); LYMPHOCYTE # 1.3 TH/MM3 (1.0-4.8); MEAN CELL VOLUME 71.6 FL (80.0-100.0); MEAN CORPUSCULAR HEMOGLOBIN 22.1 PG (27.0-34.0); MEAN CORPUSCULAR HGB CONC 30.8 % (32.0-36.0); MONO % 7.7 % (0.0-8.0); PLATELET COUNT 181 TH/MM3 (150-450); RED BLOOD COUNT 5.16 MIL/MM3 (4.00-5.30); RED CELL DISTRIBUTION WIDTH 22.5 % (11.6-17.2); WHITE BLOOD COUNT 7.2 TH/MM3 (4.0-11.0)
[2016-10-21 22:55] LABS: HEMO FLAGS AUTO DIFF
[2016-10-21 23:21] LABS: ALKALINE PHOSPHATASE 94 U/L (45-117); ALT (GPT) 16 U/L (10-53); ANION GAP 10 MEQ/L (5-15); AST (GOT) 16 U/L (15-37); BICARBONATE 24.7 MEQ/L (21.0-32.0); BLOOD UREA NITROGEN 30 MG/DL (7-18); CHLORIDE 107 MEQ/L (98-107); GLOMERULAR FILTRATION RATE 16 ML/MIN (>89); POTASSIUM 3.6 MEQ/L (3.5-5.1); SODIUM (NA) 142 MEQ/L (136-145); TOTAL BILIRUBIN ADULT 0.7 MG/DL (0.2-1.0)
[2016-10-21 23:44] LABS: SCAN/DIFF AUTO DIFF CONFIRMED
[2016-10-22] VITALS: BP 159/81; PULSE 75; RESP 16; RESP 6; O2SAT 98
[2016-10-22] MEDS ORDERED: ONDANSETRON HCL 4 MG/2 ML VIAL IV ONE (00:15)
[2016-10-22] MEDS ORDERED: DICYCLOMINE HCL 10 MG CAP PO ONE (00:15)
--- NOTE | 2016-10-22 01:50 | PD ---
Data Data Last Documented VS Vital Signs Date Time Temp Pulse Resp B/P Pulse Ox O2 Delivery O2 Flow Rate FiO2 10/21/16 22:05 18 98 Room Air 10/21/16 19:43 98.7 78 208/106 Orders Complete Blood Count With Diff (10/21/16 22:20) Comprehensive Metabolic Panel (10/21/16 22:20) Lipase (10/21/16 22:20) Iv Access Insert/Monitor (10/21/16 22:20) Ecg Monitoring (10/21/16 22:20) Oximetry (10/21/16 22:20) Ondansetron Inj (Zofran Inj) (10/21/16 22:30) Sodium Chloride 0.9% Flush (Ns Flush) (10/21/16 22:30) Chest, Single Ap (10/21/16 22:20) Ondansetron Inj (Zofran Inj) (10/22/16 00:15) Dicyclomine (Bentyl) (10/22/16 00:15) Labs Laboratory Tests Test 10/21/16 22:40 White Blood Count 7.2 TH/MM3 Red Blood Count 5.16 MIL/MM3 Hemoglobin 11.4 GM/DL Hematocrit 36.9 % Mean Corpuscular Volume 71.6 FL Mean Corpuscular Hemoglobin 22.1 PG Mean Corpuscular Hemoglobin 30.8 % Concent Red Cell Distribution Width 22.5 % Platelet Count 181 TH/MM3 Mean Platelet Volume 9.1 FL Neutrophils (%) (Auto) 53.0 % Lymphocytes (%) (Auto) 18.8 % Monocytes (%) (Auto) 7.7 % Eosinophils (%) (Auto) 19.5 % Basophils (%) (Auto) 1.0 % Neutrophils # (Auto) 3.8 TH/MM3 Lymphocytes # (Auto) 1.3 TH/MM3 Monocytes # (Auto) 0.6 TH/MM3 Eosinophils # (Auto) 1.4 TH/MM3 Basophils # (Auto) 0.1 TH/MM3 CBC Comment AUTO DIFF Differential Comment AUTO DIFF CONFIRMED Sodium Level 142 MEQ/L Potassium Level 3.6 MEQ/L Chloride Level 107 MEQ/L Carbon Dioxide Level 24.7 MEQ/L Anion Gap 10 MEQ/L Blood Urea Nitrogen 30 MG/DL Creatinine 3.16 MG/DL Estimat Glomerular Filtration 16 ML/MIN Rate Random Glucose 194 MG/DL Calcium Level 8.4 MG/DL Total Bilirubin 0.7 MG/DL Aspartate Amino Transf 16 U/L (AST/SGOT) Alanine Aminotransferase 16 U/L (ALT/SGPT) Alkaline Phosphatase 94 U/L Total Protein 7.3 GM/DL Albumin 3.0 GM/DL Lipase 204 U/L [facility] Supervised Visit with MONTY: Yes Narrative Course The history, exam, and medical decision-making in the associated mid-level provider note were completed with my assistance. I reviewed and agree with the findings presented. I attest that I had a [id number] encounter with the patient on the same day, and personally performed and documented my assessment and findings in the medical record. *My assessment and Findings: Chronically ill 51 year-old woman presents with worsening nausea vomiting abdominal pain. Seen here yesterday for the same. Negative workup. Received medications here labs are unremarkable. She missed dialysis on Friday. She still vomiting following by mouth challenge here. We will bring her in for observation. Jackson Hopper MD October 22, 2016 01:50
[2016-10-22] MEDS ORDERED: SODIUM CHLORIDE 0.9% FLUSH 10 ML FLUSH IV FLUSH PRN ×2 (02:30→11:15)
[2016-10-22] MEDS ORDERED: DEXTROSE 50% IN WATER 50 ML VIAL(D50) IV PUSH PRN (02:30)
[2016-10-22] MEDS ORDERED: GLUCAGON 1 MG/ML VIAL OTHER PRN (02:30)
[2016-10-22] MEDS ORDERED: ACETAMINOPHEN 325 MG TAB PO PRN ×2 (02:30→11:15)
[2016-10-22] MEDS ORDERED: NALOXONE HCL 0.4 MG/ML AMP IV PRN (02:30)
[2016-10-22] MEDS: ONDANSETRON HCL 4 MG/2 ML VIAL IVP PRN ×2 (04:52→10:15)
[2016-10-22 05:14] VITALS: PULSE 87; RESP 18; TEMP 98.4; O2SAT 97
[2016-10-22] MEDS: PANTOPRAZOLE SOD 20 MG DELAYED RELEASE TAB PO SCH (05:22)
[2016-10-22] MEDS: cloNIDine HCL 0.1 MG TAB PO PRN (05:23)
[2016-10-22] MEDS: INSULIN ASPART SUPPLEMENTAL SCALE SQ SCH ×4 (06:21→20:55)
[2016-10-22 07:38] VITALS: BP 175/103; PULSE 72; RESP 16; TEMP 98.2; O2SAT 97
[2016-10-22] MEDS: CARVEDILOL 6.25 MG TAB PO SCH ×2 (08:09→20:54)
[2016-10-22] MEDS: cloNIDine HCL 0.2 MG TAB PO SCH ×2 (08:09→17:01)
[2016-10-22] MEDS: LISINOPRIL 20 MG TAB PO SCH ×2 (08:10→20:55)
[2016-10-22] MEDS: SODIUM CHLORIDE 0.9% FLUSH 10 ML FLUSH IV FLUSH SCH ×2 (08:10→20:54)
[2016-10-22] MEDS: HEPARIN SODIUM - SQ 10,000 UNITS/ML VIAL SQ SCH ×2 (08:10→20:55)
[2016-10-22] MEDS: NIFEdipine 10 MG CAP PO SCH ×2 (08:37→17:00)
--- NOTE | 2016-10-22 08:46 | HHI.HP ---
[facility] Adolfo Ward MD Admission Diagnosis intractable vomiting, abdominal pain Diagnoses: Chief Complaint: Nausea and vomiting Travel History International Travel<30 Days: No Contact w/Intl Traveler <30 Da: No Traveled to Known Affected Are: No History of Present Illness Patient is a 51-year-old female with history of hypertension, end-stage renal disease secondary to hypertensive and diabetic nephropathy for the past week now has been feeling nausea vomiting. No other family members with the same symptoms. First day of the symptoms all week ago patient had episodes of diarrhea but since then none with regular bowel movements. Due to this nausea vomiting patient was unable to hold down any medications. She also missed 2 sessions of hemodialysis. She is followed by Dr. Garcia Friday and gets hemodialysis at the [facility]. Patient denies any fever or chills cough. Denies any urinary symptoms. No melena or hematochezia per. Persistence of nausea and vomiting prompted consult to ER and on evaluation was noted to have a blood pressure of diastolic blood pressures OVER 100. Patient admitted for further evaluation. Patient states compliance with insulins regimen. States good hypoglycemic awareness however for the past 2 or 3 days now has been having high readings. Patient denies any headaches. She states she is still sexually active postmenopausal. Denies any vaginal discharge Review of Systems Constitutional: DENIES: Diaphoretic episodes, Fatigue, Fever, Weight gain, Weight loss, Chills, Dizziness, Change in appetite, Night Sweats Endocrine: DENIES: Abnorml menstrual pattern, Heat/cold intolerance, Polydipsia , Polyuria, Polyphagia Eyes: DENIES: Blurred vision, Diplopia, Eye inflammation, Eye pain, Vision loss , Photosensitivity, Double Vision Ears, nose, mouth, throat: DENIES: Tinnitus, Hearing loss, Vertigo, Nasal discharge, Oral lesions, Throat pain, Hoarseness, Ear Pain, Running Nose, Epistaxis, Sinus Pain, Toothache, Odynophagia Respiratory: DENIES: Apneas, Cough, Snoring, Wheezing, Hemoptysis, Sputum production, Shortness of breath Cardiovascular: DENIES: Chest pain, Palpitations, Syncope, Dyspnea on Exertion , PND, Lower Extremity Edema, Orthopnea, Claudication Gastrointestinal: DENIES: Abdominal pain, Black stools, Bloody stools, Constipation, Diarrhea, Nausea, Vomiting, Difficulty Swallowing, Anorexia Genitourinary: DENIES: Abnormal vaginal bleeding, Dysmenorrhea, Dyspareunia, Sexual dysfunction, Urinary frequency, Urinary incontinence, Urgency, Hematuria , Dysuria, Nocturia, Vaginal discharge Musculoskeletal: DENIES: Joint pain, Muscle aches, Stiffness, Joint Swelling, Back pain, Neck pain Integumentary: DENIES: Abnormal pigmentation, Pruritus, Rash, Nail changes, Breast masses, Breast skin changes, Nipple discharge Hematologic/lymphatic: DENIES: Bruising, Lymphadenopathy Immunologic/allergic: DENIES: Eczema, Urticaria Neurologic: DENIES: Abnormal gait, Headache, Localized weakness, Paresthesias, Seizures, Speech Problems, Tremor, Poor Balance Psychiatric: DENIES: Anxiety, Confusion, Mood changes, Depression, Hallucinations, Agitation, Suicidal Ideation, Homicidal Ideation, Delusions Past Family Social History Past Medical History History of hypertension Diabetes mellitus insulin-requiring, end-stage renal disease on hemodialysis, GERD Past Surgical History sections 2 Reported Medications Coreg 6.25 mg twice a day, clonidine 0.1 mg daily, Lasix 20 mg twice a day, gabapentin 300 mg daily, Levemer 22 units subcutaneous every 12, lisinopril 20 mg twice a day, Procardia 10 mg 3 times a day, omeprazole 20 mg daily, Zofran 4 mg when necessary for nausea Allergies: Coded Allergies: Lyrica (Verified Allergy, Severe, Anaphylaxis, 10/21/16) *MDRO Multi-Drug Resistant Organism (Verified Adverse Reaction, Unknown, ) MRSA (sputum)-07/20/16 MRSA PCR Screen POSITIVE - 07/18/2016 Family History Positive family history of diabetes mellitus, heart disease Social History History of smoking quit many years ago, occasional alcohol use in the past and states none for the past 5 years, denies any substance abuse Physical Exam Vital Signs Vital Signs Date Time Temp Pulse Resp B/P Pulse Ox O2 Delivery O2 Flow Rate FiO2 10/22/16 07:38 98.2 72 16 175/103 97 10/22/16 05:14 98.4 87 18 97 10/22/16 00:00 75 16 159/81 98 Room Air 10/21/16 22:05 18 98 Room Air 10/21/16 22:05 18 10/21/16 19:43 98.7 78 16 208/106 97 Room Air Physical Exam GENERAL: Awake alert oriented 3, looks uncomfortable due to nausea sensation SKIN: No rashes, ecchymoses or lesions. Cool and dry. HEAD: Atraumatic. Normocephalic. No temporal or scalp tenderness. EYES: Pupils equal round and reactive. Extraocular motions intact. No scleral icterus. No injection or drainage. ENT: Nose without bleeding, purulent drainage or septal hematoma. Throat without erythema, tonsillar hypertrophy or exudate. Uvula midline. Airway patent. NECK: Trachea midline. No JVD or lymphadenopathy. Supple, nontender, No nuchal rigidity CARDIOVASCULAR: Regular rate and rhythm without murmurs, gallops, or rubs. Port in place right chest wall RESPIRATORY: Clear to auscultation. Breath sounds equal bilaterally. No wheezes , rales, or rhonchi. GASTROINTESTINAL: Abdomen flabby soft, non-tender, nondistended. . No guarding. MUSCULOSKELETAL: Extremities without clubbing, cyanosis, or edema. No joint tenderness, effusion, or edema noted. No calf tenderness. Negative Homans sign bilaterally. NEUROLOGICAL: Awake and alert. Cranial nerves II through XII intact. Motor and sensory grossly within normal limits. Five out of 5 muscle strength in all muscle groups. Normal speech. Laboratory Laboratory Tests Test 10/21/16 22:40 White Blood Count 7.2 Red Blood Count 5.16 Hemoglobin 11.4 Hematocrit 36.9 Mean Corpuscular Volume 71.6 Mean Corpuscular Hemoglobin 22.1 Mean Corpuscular Hemoglobin 30.8 Concent Red Cell Distribution Width 22.5 Platelet Count 181 Mean Platelet Volume 9.1 Neutrophils (%) (Auto) 53.0 Lymphocytes (%) (Auto) 18.8 Monocytes (%) (Auto) 7.7 Eosinophils (%) (Auto) 19.5 Basophils (%) (Auto) 1.0 Neutrophils # (Auto) 3.8 Lymphocytes # (Auto) 1.3 Monocytes # (Auto) 0.6 Eosinophils # (Auto) 1.4 Basophils # (Auto) 0.1 CBC Comment AUTO DIFF Differential Comment AUTO DIFF CONFIRMED Sodium Level 142 Potassium Level 3.6 Chloride Level 107 Carbon Dioxide Level 24.7 Anion Gap 10 Blood Urea Nitrogen 30 Creatinine 3.16 Estimat Glomerular Filtration 16 Rate Random Glucose 194 Calcium Level 8.4 Total Bilirubin 0.7 Aspartate Amino Transf 16 (AST/SGOT) Alanine Aminotransferase 16 (ALT/SGPT) Alkaline Phosphatase 94 Total Protein 7.3 Albumin 3.0 Lipase 204 Result Diagram: 10/21/16223910/21/162239 Imaging Last Impressions Chest X-Ray 10/21/162219 Signed Impressions: Service Date/Time: Friday, October 21, 2016 22:32 - CONCLUSION: No acute disease Adolfo Thomas MD Assessment and Plan Assessment and Plan 51-year-old female with End-stage renal disease on hemodialysis noncompliance, she missed 2 sessions of hemodialysis presenting with persistent nausea vomiting. Nephrology consulted for hemodialysis arrangement. Patient due for hemodialysis today. Nausea and vomiting should improve with dialysis. hypertensive urgency we will restart her medications home meds of Coreg 6.25 mg twice a day Lasix 20 mg twice a lisinopril 20 mg twice a day Procardia 10 mg every 8 Persistent nausea. Rule out gastro-paresis with history of diabetes mellitus. Will consider ordering for gastric emptying study. Continue on Zofran 4 mg every 8 Patient hungry. We will try Jell-O and fulll iquids. CT was done 2 days ago Diabetes type 2 patient states good hypoglycemic awareness check blood sugar 3 times a day and at bedtime. Continue E Silva home regimen. PT consult Discussed Condition With Patient Michelle Key MD October 22, 2016 08:46
[2016-10-22] MEDS ORDERED: NIFEdipine 10 MG CAP PO SCH (09:00)
[2016-10-22] MEDS ORDERED: cloNIDine HCL 0.1 MG TAB PO SCH (09:00)
[2016-10-22] MEDS: INSULIN DETEMIR 100 UNITS/ML VIAL SQ SCH ×2 (09:16→20:58)
[2016-10-22 10:18] VITALS: BP 125/80; PULSE 81
[2016-10-22 10:32] LABS: BACTERIA, URINE RARE /hpf; BLOOD, URINE SMALL (NEG); COMMENT (UR) CULT NOT INDICATED; CULTURE IF INDICATED CULT NOT INDICATED; GLUCOSE,URINE 300 mg/dL (NEG); HYALINE CAST, URINE 8 /lpf (RARE); KETONE, URINE NEG (NEG); MUCUS URINE FEW /lpf (OCC); NITRITE,URINE NEG (NEG); PH, URINE 6.5 (5.0-8.5); SQUAMOUS EPITHELIAL CELL URINE 9 /hpf (0-5); URINE COLOR YELLOW (YELLW/STRAW)
[2016-10-22] MEDS ORDERED: SODIUM CHLOR 0.9% 1000 ML INJ 1,000 ML IV PRN ×3 (11:02)
[2016-10-22] MEDS ORDERED: ALBUMIN HUMAN 25% 25 GM/100 ML BAGP IV PRN (11:15)
[2016-10-22] MEDS ORDERED: NITROGLYCERIN 0.4 MG SL 25 TABS/BTL SL PRN (11:15)
[2016-10-22] MEDS ORDERED: ONDANSETRON HCL 4 MG/2 ML VIAL IV PRN (11:15)
[2016-10-22] MEDS ORDERED: diphenhydrAMINE HCL 25 MG CAP PO PRN (11:15)
[2016-10-22] MEDS ORDERED: HEPARIN SODIUM - IV 10,000 UNITS/10 ML VIAL PRN (11:15)
[2016-10-22] MEDS ORDERED: MANNITOL 12.5 GM/50 ML VIAL IV PRN (11:15)
[2016-10-22] MEDS ORDERED: GELATIN 12 MM/7 MM FOAM TOP PRN (11:15)
[2016-10-22] MEDS ORDERED: HEPARIN SODIUM - IV 10,000 UNITS/10 ML VIAL IVF PRN (11:15)
[2016-10-22] MEDS ORDERED: EPOETIN ALFA 10,000 UNITS/ML VIAL IV PRN (11:15)
[2016-10-22] MEDS ORDERED: GENTAMICIN SULFATE (DIALYSIS USE ONLY) 20 MG/2 ML VIAL IV PRN (11:15)
[2016-10-22] MEDS ORDERED: cloNIDine HCL 0.1 MG TAB PO PRN (11:15)
[2016-10-22 11:50] VITALS: BP 134/71; PULSE 80; RESP 16; TEMP 98.6; O2SAT 96
[2016-10-22 13:20] LABS: AMPHETAMINE, URINE NEG (NEG); BARBITURATES, URINE NEG (NEG); COCAINE, URINE NEG (NEG)
[2016-10-22] MEDS ORDERED: METOCLOPRAMIDE HCL 10 MG/2 ML VIAL ONE (14:05)
--- NOTE | 2016-10-22 15:50 | EKG ---
Date Performed: 10/22/2016 Time Performed: 08:30:20 PTAGE: 51 years EKG: Sinus rhythm MARKED LEFT AXIS DEVIATION LEFT VENTRICULAR HYPERTROPHY AND ST-T CHANGE Compared to prior tracing no significant change ABNORMAL ECG PREVIOUS TRACING : 10/20/2016 09.23 DOCTOR: Rosemary Stauffer Interpretating Date/Time 10/22/2016 15:46:44
--- NOTE | 2016-10-22 17:19 | RADRPT ---
EXAM DATE/TIME: 10/22/2016 12:18 [place] COMPARISON: No previous studies available for comparison. INDICATIONS : Nausea and abdomen pain x 1 week DOSE: 1.1 mCi Tc99m Sulfur Colloid Labeled Whole egg PO MEDICATONS: 1.) 5 mg Reglan IV at 90 minutes IMAGIN hr 50 min. MEDICAL HISTORY : Renal disease, end stage. Diabetes mellitus type 2. Hypertension. SURGICAL HISTORY : Coronary artery stent. section. ENCOUNTER: Subsequent ACUITY: 1 week PAIN SCALE: 2/10 LOCATION: Bilateral upper quadrant TECHNIQUE: Following the oral ingestion of radiotracer-labeled meal, dynamic sequential images in the CHING projec tion were acquired with simultaneous computer acquisition. The data set was decay-corrected. FINDINGS: LAG PHASE: There is 30 minutes before onset of gastric emptying. EMPTYING: Gastric emptying kinetics are linear. The decay-corrected, back-extrapolated half-time of emptying i s 65 minutes. (Normal for this lab is 45- 90 minutes.) INTERVENTION: Complete emptying of the stomach with IV Reglan at 90 minutes CONCLUSION: 1. 30 minute lag phase 2. No scintigraphic findings of gastroparesis. Tho Beltran MD on October 22, 2016 at 17:14 Board Certified Radiologist. This report was verified electronically.
[2016-10-22 18:11] VITALS: O2SAT 97
--- NOTE | 2016-10-22 18:36 | MB ---
cc: PARESH PAYNE MD DATE OF CONSULTATION 10/22/2016 REASON FOR CONSULTATION End-stage renal disease on hemodialysis for management. HISTORY OF PRESENT ILLNESS This is a 51-year-old female known to me from before with past medical history of hypertension, ischemic heart disease, congestive heart failure, diabetes mellitus, end-stage renal disease on hemodialysis three times per week came to the hospital with complaint of vomiting going on off and on for the last one week. I was called to see the patient because of management of hemodialysis. She has been on hemodialysis Friday, and Friday. She had her regular dialysis on Friday. According to the patient she has been vomiting off and on going on for the last one week or so. There is some abdominal discomfort mainly in the epigastric area. She has loose bowel motion which is improved. There is no history of fever. She has no shortness of breath. No chest pain. No palpitation. She also missed her hemodialysis last week because of vomiting. PAST MEDICAL HISTORY 1. Hypertension. 2. Ischemic heart disease. 3. Congestive heart failure. 4. Diabetes mellitus. 5. Chronic kidney disease on hemodialysis. 6. Chronic anemia. PAST SURGICAL HISTORY History of section. REVIEW OF SYSTEMS There is no history of fever. No headache or dizziness. No sore throat. She has this nausea or vomiting off and on going on for last one week associated with epigastric pain. There is no blood in this vomitus. There is no blood in the stool. She also having loose bowel motions off and on which is improving now. SOCIAL HISTORY The patient is . She has a past history of smoking, stopped some time ago. There is no history of heavy alcoholism. Occasionally has alcoholic beverages. FAMILY HISTORY Positive for diabetes and heart disease. ALLERGIES SHE IS ALLERGIC TO L[facility]ICA. MEDICATIONS Currently she is on following medications: 1. Carvedilol 6.25 mg b.i.d. 2. Lisinopril 20 mg b.i.d. 3. Protonix 20 mg once a day. 4. Heparin 5000 subcu q.12h. 5. Levemir insulin 22 units subcu q. 12-hour. 6. Nifedipine 30 mg q.8-hour. 7. Clonidine 0.2 mg q.8-hour. 8. Insulin aspart sliding scale. 9. Clonidine p.r.n. 10. Zofran p.r.n. 11. Epogen with dialysis. PHYSICAL EXAMINATION GENERAL: The patient is awake and alert. She is currently on hemodialysis. VITAL SIGNS: Her last blood pressure is 134/71, temperature is 98.6. Oxygen saturation 96-97% on room air. HEENT: Pupils equally reactive to light. Nonicteric sclerae. Conjunctivae normal. NECK: Supple. JVD is not elevated. LUNGS: The patient has bilateral decreased air entry with a few basal rales. HEART: S1-S2. Regular rhythm. ABDOMEN: Soft. Lax. There is mild epigastric tenderness. There is no rebound or rigidity. Bowel sounds positive. EXTREMITIES: There is mild edema in the legs. LABORATORY DATA Investigations, WBC count is 7.2, hemoglobin 11.4, platelet count of 181, neutrophils 53%. Sodium is 142. Potassium 3.6, chloride 107, bicarb 24.7, BUN 23, creatinine 3.16, glucose 194. Calcium 8.4. AST, ALT normal. Total protein is 7.3 with albumin of 3.0. INR is 1.0. Urinalysis showing that she has a protein of 300, glucose of 300 with wbc's of 4. Urine culture done 2 days ago showing mixed melissa. The patient has multiple visits to the ER. In the last one week this is the third time with the same complaint. IMAGING STUDIES The patient has gastric emptying study which was just done and result is not available. Chest x-ray was done which shows that she has lung reynoso clear. CT scan of the abdomen and pelvis was done which was unremarkable. There was some evidence of anasarca and the spleen in the upper limit of normal. No inflammatory changes or obstructive changes. ASSESSMENT/PLAN 1. Nausea, vomiting, rule out gastroparesis, possibility of gastritis. 2. End-stage renal disease on hemodialysis. 3. Hypertension. 4. Diabetes mellitus. 5. Mild anemia. 6. History of ischemic heart disease and congestive heart failure. The patient is in better status now with the fluid. She used to have more swelling and with the dialysis the swelling has improved. Her breathing is much better. Hemoglobin is stable. The patient is currently getting dialysis. They are trying to remove 3 liters. Patient is supposed to have an AV fistula. She has appointment with vascular surgery tomorrow as an outpatient. I will try to see if they can see the patient while she is in the hospital and formulate some plan for the A-V fistula. For her vomiting she just got gastric emptying study which is in progress and the results are not available yet. Continue Zofran as needed. She is already admitted for observation. Thank you for the consultation. I will follow the patient while she is in the hospital. MD LUIS Cuellar/ANNALEE /3:34 PM /6:04 PM
[2016-10-23] VITALS (7 sets, daily range): BP systolic 121–169; BP diastolic 72–93; PULSE 63–74; RESP 14–18; TEMP 96.8–98.8; O2SAT 96–99
[2016-10-23] MEDS: cloNIDine HCL 0.2 MG TAB PO SCH ×3 (01:37→16:41)
[2016-10-23] MEDS: NIFEdipine 10 MG CAP PO SCH ×3 (01:37→16:41)
[2016-10-23] MEDS: PANTOPRAZOLE SOD 20 MG DELAYED RELEASE TAB PO SCH (06:10)
[2016-10-23] MEDS: INSULIN ASPART SUPPLEMENTAL SCALE SQ SCH ×4 (06:12→21:00)
[2016-10-23] MEDS: INSULIN DETEMIR 100 UNITS/ML VIAL SQ SCH ×2 (09:00→22:17)
--- NOTE | 2016-10-23 09:27 | HHI.PR ---
Subjective Remarks Follow-up for nausea and vomiting. The patient says about one week ago she began having nausea and vomiting. She was having loose stools of the time, which has normalized. She states her last bowel movement was here 4 days ago which is normal for her. She has been passing flatus. She states that she is having the diarrhea she was having chills and sweats, dose of resolved. She states that she's been tolerating diet since yesterday morning with no further vomiting. She tolerated dialysis yesterday with no difficulties. She would like to try to advance her diet today. She denies any abdominal pain. She denies eating any irregular foods prior to all this. Objective Vitals Vital Signs Date Time Temp Pulse Resp B/P Pulse Ox O2 Delivery O2 Flow Rate FiO2 10/23/16 07:32 97.8 65 14 169/93 98 10/23/16 04:38 96.8 66 18 157/82 97 10/23/16 00:09 96.8 66 18 157/82 97 10/22/16 18:11 97 21 10/22/16 11:50 98.6 80 16 134/71 96 10/22/16 10:18 81 125/80 I/O 10/22/16 10/22/16 10/22/16 10/23/16 10/23/16 10/23/16 06:59 14:59 22:59 06:59 14:59 22:59 Intake Total 120 ml 750 ml Output Total 900 ml Balance 120 ml -150 ml Intake Oral 120 ml 750 ml Output Urine Total 800 ml Emesis 100 ml # Voids 1 1 Result Diagram: 10/21/16223910/21/162239 Imaging Last Impressions Gastric Emptying Nuclear Medicine 10/22/16 0000 Signed Impressions: Service Date/Time: Saturday, October 22, 2016 12:18 - CONCLUSION: 1. 30 minute lag phase 2. No scintigraphic findings of gastroparesis. Tho Beltran MD Chest X-Ray 10/21/162219 Signed Impressions: Service Date/Time: Friday, October 21, 2016 22:32 - CONCLUSION: No acute disease Adolfo Thomas MD Objective Remarks GENERAL: Well-developed well-nourished. In no acute distress. SKIN: Warm and dry. Dialysis catheter in place on the right chest wall. HEENT: Normocephalic. Pupils equal and round. Mucous membranes pink and moist. CARDIOVASCULAR: Regular rate and rhythm. No murmur appreciated. RESPIRATORY: No accessory muscle use. Clear to auscultation. Breath sounds equal bilaterally. GASTROINTESTINAL: Abdomen soft, mild lower abdomen TTP, nondistended. Bowel sounds x4. MUSCULOSKELETAL: No obvious deformities. No clubbing or cyanosis. No edema. NEUROLOGICAL: Awake and alert. No focal neurological deficits. Moves upper and lower extremities spontaneously. Normal speech. PSYCHIATRIC: Appropriate mood and affect; insight and judgment normal. A/P Assessment and Plan 51-year-old female with End-stage renal disease on hemodialysis: Missed 1 hemodialysis session and could not complete the next session due to nausea. Nephrology consulted for hemodialysis arrangement. s/p HD 10/22. Vascular surgery consulted. AVF to be placed in AM. Hypertension, uncontrolled, labile Continue her home medications of Coreg 6.25 mg twice a day, Lasix 20 mg twice a lisinopril 20 mg twice a day, Procardia 10 mg every 8, clonidine 0.2 3 times a day. Clonidine as needed. Gastroenteritis: Patient with a one-week history of nausea, vomiting, diarrhea, chills, sweats. Symptoms have continued to improve throughout hospitalization. Gastric emptying negative for gastroparesis. Continue on Zofran 4 mg every 8 Advance diet as tolerated. CT 10/20 was essentially unremarkable. Supportive care. Follow-up BMP and CBC today. Diabetes type 2: Continue insulin home regimen. Well controlled. Written by Mane Goodman, acting as scribe for Dr. Méndez on 10/23/16 at 09:26. Discharge Planning Awaiting fistula placement. Attending Statement This note was transcribed by scribramses Goodman. I, Dr. Grady Méndez personally performed the history, physical exam, and medical decision making; and confirmed the accuracy of the information in the transcribed note. Authenticated by Dr. Grady Méndez on 10/23/16 at 17:43. Mane Goodman October 23, 2016 09:27 Grady Méndez DO October 23, 2016 17:43
[2016-10-23 09:44] LABS: AUTOMATED NEUTROPHIL # 3.2 TH/MM3 (1.8-7.7); BASOPHIL # 0.1 TH/MM3 (0-0.2); BASOPHIL % 1.4 % (0.0-2.0); EOSINOPHIL # 1.3 TH/MM3 (0-0.4); EOSINOPHIL % 20.6 % (0.0-4.0); HEMATOCRIT 36.6 % (35.0-46.0); LYMPH % 20.2 % (9.0-44.0); LYMPHOCYTE # 1.3 TH/MM3 (1.0-4.8); MEAN CELL VOLUME 71.7 FL (80.0-100.0); MEAN CORPUSCULAR HEMOGLOBIN 21.9 PG (27.0-34.0); MEAN CORPUSCULAR HGB CONC 30.6 % (32.0-36.0); MONO % 8.4 % (0.0-8.0); NEUT % 49.4 % (16.0-70.0); PLATELET COUNT 165 TH/MM3 (150-450); RED BLOOD COUNT 5.11 MIL/MM3 (4.00-5.30); RED CELL DISTRIBUTION WIDTH 22.5 % (11.6-17.2); WHITE BLOOD COUNT 6.5 TH/MM3 (4.0-11.0)
[2016-10-23 09:45] LABS: HEMO FLAGS AUTO DIFF
[2016-10-23] MEDS: SODIUM CHLORIDE 0.9% FLUSH 10 ML FLUSH IV FLUSH SCH ×2 (09:46→22:17)
[2016-10-23] MEDS: HEPARIN SODIUM - SQ 10,000 UNITS/ML VIAL SQ SCH ×2 (09:47→22:18)
[2016-10-23] MEDS: CARVEDILOL 6.25 MG TAB PO SCH ×2 (09:53→22:16)
[2016-10-23] MEDS: LISINOPRIL 20 MG TAB PO SCH ×2 (09:53→21:00)
[2016-10-23 10:02] LABS: BICARBONATE 28.4 MEQ/L (21.0-32.0); POTASSIUM 3.4 MEQ/L (3.5-5.1)
[2016-10-23 10:24] LABS: SCAN/DIFF AUTO DIFF CONFIRMED
--- NOTE | 2016-10-23 16:34 | PD.VS.CON ---
History of Present Illness Chief Complaint: AVF creation Consult Requested by: Dr. Medley History of Present Illness As Written Patient is a 51-year-old female with history of hypertension, end-stage renal disease secondary to hypertensive and diabetic nephropathy for the past week now has been feeling nausea vomiting. No other family members with the same symptoms. First day of the symptoms all week ago patient had episodes of diarrhea but since then none with regular bowel movements. Due to this nausea vomiting patient was unable to hold down any medications. She also missed 2 sessions of hemodialysis. She is followed by Dr. Garcia Friday and gets hemodialysis at [facility]. Patient denies any fever or chills cough. Denies any urinary symptoms. No melena or hematochezia per. Persistence of nausea and vomiting prompted consult to ER and on evaluation was noted to have a blood pressure of diastolic blood pressures OVER 100. (Carmen Carpio) Chief Complaint: ESRD (Adam Zamorano DO) Past/Family/Social History Past Medical History HTN Diabetes mellitus insulin-requiring End-stage renal disease on hemodialysis GERD Past Surgical History sections 2 Social History History of smoking quit many years ago, occasional alcohol use in the past and states none for the past 5 years, denies any substance abuse Family History Positive family history of diabetes mellitus, heart disease (Carmen Carpio) Home Medications Active Scripts Nitrofurantoin Monohydrate Macrocrystals (Macrobid)100 Mg [id number] Mg PO BID 5 Days Ref 0 Prov:Merissa Joshi MD 10/20/16 Ondansetron Odt (Zofran Odt)4 Mg Tab4 Mg SL Q6HR PRN (Nausea/Vomiting) #12 TAB Ref 0 Prov:Merissa Joshi MD 10/20/16 Insulin Detemir Inj (Levemir Inj)1,000 unit/ 10 ML Vial22 Units SQ Q12HR #30 INJECTION Ref 1 Prov:Isma Burgess 09/18/16 Gabapentin (Neurontin)300 Mg Ujk034 Mg PO DAILY #30 CAP Ref 1 Prov:Isma Burgess 09/18/16 Lisinopril 20 Mg Tab20 Mg PO BID #60 TAB Prov:Isma Burgess 09/18/16 Reported Medications Furosemide (Lasix)20 Mg Tab20 Mg PO BID #60 TAB Ref 0 10/20/16 Omeprazole 20 Mg Tab20 Mg PO DAILY #30 TAB Ref 0 10/20/16 Nifedipine (Procardia)10 Mg Cap10 Mg PO BID #1 CAP Ref 0 10/20/16 Clonidine 0.1 Mg Tab0.1 Mg PO DAILY #60 TAB Ref 0 10/20/16 Carvedilol (Coreg)6.25 Mg Tab6.25 Mg PO BID #60 TAB Ref 0 10/20/16 Discontinued Reported Medications Aspirin DR (Aspirin EC)81 Mg Tabdr81 Mg PO DAILY Ref 0 05/27/16 Discontinued Scripts Furosemide 40 Mg Tab40 Mg PO BID@,15 #60 TAB Ref 1 Prov:Isma Burgess BANDER OPERATOR 09/18/16 Ondansetron Odt 4 Mg Tab4 Mg PO Q6H PRN (nausea) #30 TAB Prov:Isma Burgess BANDER OPERATOR 09/18/16 Clonidine (Catapres)0.1 Mg Tab0.1 Mg PO UNSCH PRN (SBP> OR = 180, DBP> OR = 100 ) #30 TAB Ref 1 Prov:Isma Burgess BANDER OPERATOR 09/18/16 Carvedilol (Coreg)12.5 Mg Tab25 Mg PO Q12HR #30 TAB Ref 1 Prov:Isma Burgess BANDER OPERATOR 09/18/16 Acetaminophen 325 Mg Xht133 Mg PO Q4H PRN (Fever/Pain 1-10) #30 TAB Prov:Isma Burgess BANDER OPERATOR 09/18/16 Levetiracetam (Keppra)250 Mg Qvi095 Mg PO Q12HR #30 TAB Ref 1 Prov:Isma Burgess BANDER OPERATOR 09/18/16 Hydralazine 50 Mg Rvi732 Mg PO Q8HR 30 Days Ref 1 Prov:Isma Burgess BANDER OPERATOR 09/18/16 Docusate Sodium (Dok)100 Mg Tkl097 Mg PO BID 30 Days Prov:Isma Burgess BANDER OPERATOR 09/18/16 Clonidine (Catapres)0.1 Mg Tab0.2 Mg PO Q8HR 30 Days Ref 1 Prov:Isma Burgess BANDER OPERATOR 09/18/16 Pantoprazole 40 Mg Tab40 Mg PO DAILY #30 TAB Ref 1 Prov:Isma Burgess BANDER OPERATOR 09/18/16 Nifedipine (Procardia)10 Mg Cap30 Mg PO Q8HR 30 Days Ref 1 Prov:Isma Burgess BANDER OPERATOR 09/18/16 Ferrous Sulfate 325 Mg Ihi889 Mg PO BID #60 TAB Ref 1 Prov:Isma Burgess BANDER OPERATOR 09/18/16 Atorvastatin 80 Mg Tab80 Mg PO HS #30 TAB Ref 1 Prov:Isma Burgess BANDER OPERATOR 09/18/16 Acetaminophen 325 Mg Krf370 Mg PO Q4H PRN (Fever/Pain 1-10) 1 Day Prov:Grady Vasquez MD 09/07/16 Wheelchair 1 Mis Mis #1 EA .ROUTE DIRECTED Ref 0 Prov:Bev Garcia BANDER OPERATOR 09/04/16 Commode 3-in-1 1 Mis Mis #1 EA .ROUTE DIRECTED Ref 0 Prov:Bev GarciaP 09/04/16 Walker Rolling/GetGo 1 Mis Mis #1 Ea .route As Directed Prov:Bev Garcia BANDER OPERATOR 09/04/16 Coded Allergies: Lyrica (Verified Allergy, Severe, Anaphylaxis, 10/21/16) *MDRO Multi-Drug Resistant Organism (Verified Adverse Reaction, Unknown, ) MRSA (sputum)-07/20/16 MRSA PCR Screen POSITIVE - 07/18/2016 Physical Exam Vitals/I&O Date Time Temp Pulse Resp B/P Pulse Ox O2 Delivery O2 Flow Rate FiO2 10/23/16 15:45 97.6 74 16 141/85 96 10/23/16 11:31 98.2 66 16 124/72 99 10/23/16 07:32 97.8 65 14 169/93 98 10/23/16 04:38 96.8 66 18 157/82 97 10/23/16 00:09 96.8 66 18 157/82 97 10/22/16 18:11 97 21 Neuro: CN 2-12 intact Neck: NO JVD distention Heart: +S1,S2 Lungs: CTA Abdomen: soft and non tender Vascular: Bilat Radial pulses strong and palpable Extremities: UE 5/5 strength LE 5/5/ strength (Balaji,Carmen F BANDER OPERATOR) Laboratory Tests Test 10/23/16 09:15 White Blood Count 6.5 Red Blood Count 5.11 Hemoglobin 11.2 Hematocrit 36.6 Mean Corpuscular Volume 71.7 Mean Corpuscular Hemoglobin 21.9 Mean Corpuscular Hemoglobin 30.6 Concent Red Cell Distribution Width 22.5 Platelet Count 165 Mean Platelet Volume 9.8 Neutrophils (%) (Auto) 49.4 Lymphocytes (%) (Auto) 20.2 Monocytes (%) (Auto) 8.4 Eosinophils (%) (Auto) 20.6 Basophils (%) (Auto) 1.4 Neutrophils # (Auto) 3.2 Lymphocytes # (Auto) 1.3 Monocytes # (Auto) 0.5 Eosinophils # (Auto) 1.3 Basophils # (Auto) 0.1 CBC Comment AUTO DIFF Differential Comment AUTO DIFF CONFIRMED Sodium Level 140 Potassium Level 3.4 Chloride Level 102 Carbon Dioxide Level 28.4 Anion Gap 10 Blood Urea Nitrogen 26 Creatinine 3.28 Estimat Glomerular Filtration 15 Rate Random Glucose 145 Calcium Level 8.3 Last 48 hours Impressions Gastric Emptying Nuclear Medicine 10/22/16 0000 Signed Impressions: Service Date/Time: Saturday, October 22, 2016 12:18 - CONCLUSION: 1. 30 minute lag phase 2. No scintigraphic findings of gastroparesis. Tho Beltran MD Chest X-Ray 10/21/160 Signed Impressions: Service Date/Time: Friday, October 21, 2016 22:32 - CONCLUSION: No acute disease Adolfo Thomas MD (Carmen Carpio) Assessment and Plan Assessment: (1) ESRD (end stage renal disease) on dialysis Status: Chronic Plan Plan Discussed surgical intervention AVF with patient Questions answered and Pt agrees to surgical intervention Consents were signed Pt shceduled for a L BC AVF tomorrow am Informed pt to Save LEFT arm for LEFT BRACHIOCEPHALIC No B/P or lab draws to left arm NPO after midnight Carmen SEGUNDO [facility]/[place] [phone] (Carmen Carpio) Plan I agree with above assessment and plan. Should have a left upper extremity AVF creation. Marked and consented. Risk of swelling and steal detailed with the patient. Adam Zamorano FACS, Market Superintendent of Vascular Surgery /[place] (Adam Zamorano DO) Carmen Carpio October 23, 2016 16:34 Adam Zamorano DO October 23, 2016 18:25
--- NOTE | 2016-10-23 16:58 | HHI.NPPN ---
Subjective General Problems: Anemia, Heart Disease Renal Failure: End Stage Renal Disease History of Present Illness 51-year-old female known to me from before with past medical history of hypertension, ischemic heart disease, congestive heart failure, diabetes mellitus, end-stage renal disease on hemodialysis three times per week came to the hospital with complaint of vomiting going on off and on for the last one week. I was called to see the patient because of management of hemodialysis. She has been on hemodialysis Friday, and Friday. Additional Remarks Patient is alert, now vomiting is better, no abd. pain. Review of Systems General Constitutional: Fatigue Cardiovascular Cardiac: CRUZ Gastrointestinal Gastrointestinal: Abdominal Pain, Nausea & Vomiting Objective Data Data 10/22/16 10/23/16 18:59 06:59 Intake Total 750 ml Output Total 900 ml Balance -150 ml Intake Oral 750 ml Output Urine Total 800 ml Emesis 100 ml # Voids 1 1 Vital Signs Date Time Temp Pulse Resp B/P Pulse Ox O2 Delivery O2 Flow Rate FiO2 10/23/16 15:45 97.6 74 16 141/85 96 10/23/16 11:31 98.2 66 16 124/72 99 10/23/16 07:32 97.8 65 14 169/93 98 10/23/16 04:38 96.8 66 18 157/82 97 10/23/16 00:09 96.8 66 18 157/82 97 10/22/16 18:11 97 21 -: 10/23/16 0915 10/23/16 0915 Physical Exam General Appearance: No Acute Distress, Comfortable Eyes Eye Exam: Pupils Equal Throat Throat Exam: Oral Mucosa [place] & Moist Neck Neck Exam: Neck Supple, Trachea Midline Pulmonary Resp Exam: Breath Sounds Equal, No Distress, Rhonchi, Decreased Bases Cardiology CV Exam: Regular, Normal Sinus Rhythm Gastrointestinal/Abdomen GI Exam: Soft, Non-Tender, Bowel Sounds Present Extremeties Extremities Exam: Trace Edema Neurologic Neuro Exam: Alert, Awake, Oriented Psychiatric Psych Exam: Appropriate Responses Assessment/Plan Assessment Summary: Anemia of CKD, CHF, Hypertension, End Stage Renal Disease Problem List: (1) Chronic diastolic congestive heart failure (2) Nausea & vomiting (3) DM2 (diabetes mellitus, type 2) (4) Anemia (5) ESRD (end stage renal disease) on dialysis Plan Patient has now no vomiting. HD was done yesterday, tolerated well. Seen by vascular surgery, for AVF in AM. Gastric emptying results noted. BP and Hgb. stable. Problem Qualifiers (1) DM2 (diabetes mellitus, type 2): Mia Medley MD October 23, 2016 16:58
[2016-10-24] MEDS: NIFEdipine 10 MG CAP PO SCH ×3 (01:58→17:00)
[2016-10-24] MEDS: cloNIDine HCL 0.2 MG TAB PO SCH ×3 (01:58→17:19)
[2016-10-24] MEDS: PANTOPRAZOLE SOD 20 MG DELAYED RELEASE TAB PO SCH (05:26)
[2016-10-24] MEDS: INSULIN ASPART SUPPLEMENTAL SCALE SQ SCH ×3 (05:31→21:42)
[2016-10-24 07:29] VITALS: BP 143/88; PULSE 65; RESP 16; TEMP 97.8; O2SAT 96
[2016-10-24] MEDS: HEPARIN SODIUM - SQ 10,000 UNITS/ML VIAL SQ SCH ×2 (07:39→21:38)
[2016-10-24] MEDS: LISINOPRIL 20 MG TAB PO SCH ×2 (07:39→21:38)
[2016-10-24] MEDS: CARVEDILOL 6.25 MG TAB PO SCH ×2 (07:40→21:38)
--- NOTE | 2016-10-24 08:26 | HHI.PR ---
Subjective Remarks Follow up for gastroenteritis and ESRD. The patient is doing well today. She is NPO for surgery today and would like to eat. She tolerated diet yesterday with no further nausea or vomiting. She is going for AVF placement today. Today is also her day for dialysis. She would like to go home today if possible. Objective Vitals Vital Signs Date Time Temp Pulse Resp B/P Pulse Ox O2 Delivery O2 Flow Rate FiO2 10/24/16 07:29 97.8 65 16 143/88 96 10/23/16 23:13 98.8 65 18 134/81 99 10/23/16 21:00 98.4 63 18 121/75 99 10/23/16 15:45 97.6 74 16 141/85 96 10/23/16 11:31 98.2 66 16 124/72 99 Result Diagram: 10/23/16 0915 10/23/16 0915 Imaging Last Impressions Gastric Emptying Nuclear Medicine 10/22/16 0000 Signed Impressions: Service Date/Time: Saturday, October 22, 2016 12:18 - CONCLUSION: 1. 30 minute lag phase 2. No scintigraphic findings of gastroparesis. Tho Beltran MD Chest X-Ray 10/21/16 2220 Signed Impressions: Service Date/Time: Friday, October 21, 2016 22:32 - CONCLUSION: No acute disease Adolfo Thomas MD Objective Remarks GENERAL: Well-developed well-nourished. In no acute distress. SKIN: Warm and dry. Dialysis catheter in place on the right chest wall. HEENT: Normocephalic. Pupils equal and round. Mucous membranes pink and moist. CARDIOVASCULAR: Regular rate and rhythm. No murmur appreciated. RESPIRATORY: No accessory muscle use. Clear to auscultation. Breath sounds equal bilaterally. GASTROINTESTINAL: Abdomen soft, nontender, nondistended. Bowel sounds x4. MUSCULOSKELETAL: No obvious deformities. No clubbing or cyanosis. No edema. NEUROLOGICAL: Awake and alert. No focal neurological deficits. Moves upper and lower extremities spontaneously. Normal speech. PSYCHIATRIC: Appropriate mood and affect; insight and judgment normal. A/P Assessment and Plan 51-year-old female with End-stage renal disease on hemodialysis: Dialyzes TTS. Missed 1 hemodialysis session and could not complete the next session due to nausea. Nephrology consulted for hemodialysis arrangement. s/p HD 10/22. Vascular surgery consulted. AVF to be placed today. Hypertension, better controlled Continue her home medications of Coreg 6.25 mg twice a day, Lasix 20 mg twice a lisinopril 20 mg twice a day, Procardia 10 mg every 8, clonidine 0.2 TID. Clonidine as needed. Gastroenteritis: Patient with a one-week history of nausea, vomiting, diarrhea, chills, sweats. Symptoms have continued to improve throughout hospitalization. Gastric emptying negative for gastroparesis. Continue on Zofran 4 mg every 8 Now tolerating full diet. CT 10/20 was essentially unremarkable. Supportive care. Labs reviewed and stable. Diabetes type 2: Continue insulin home regimen. Well controlled. Mane Goodman October 24, 2016 08:26 Grady Méndez DO October 24, 2016 17:46 planning today after procedure and dialysis if cleared by specialists. Mane Goodman October 24, 2016 08:26
[2016-10-24] MEDS: INSULIN DETEMIR 100 UNITS/ML VIAL SQ SCH ×2 (09:00→21:41)
[2016-10-24] MEDS: SODIUM CHLORIDE 0.9% FLUSH 10 ML FLUSH IV FLUSH SCH ×2 (09:00→21:00)
--- NOTE | 2016-10-24 10:32 | HHI.NPPN ---
Subjective General Problems: Anemia, Heart Disease Renal Failure: End Stage Renal Disease History of Present Illness 51-year-old female known to me from before with past medical history of hypertension, ischemic heart disease, congestive heart failure, diabetes mellitus, end-stage renal disease on hemodialysis three times per week came to the hospital with complaint of vomiting going on off and on for the last one week. I was called to see the patient because of management of hemodialysis. She has been on hemodialysis Friday, and Friday. Additional Remarks Patient is alert, now on HD, has nausea, given Zofran, no SOB. Review of Systems General Constitutional: Fatigue Cardiovascular Cardiac: CRUZ Gastrointestinal Gastrointestinal: Abdominal Pain, Nausea & Vomiting Objective Data Data Vital Signs Date Time Temp Pulse Resp B/P Pulse Ox O2 Delivery O2 Flow Rate FiO2 10/24/16 07:29 97.8 65 16 143/88 96 10/23/16 23:13 98.8 65 18 134/81 99 10/23/16 21:00 98.4 63 18 121/75 99 10/23/16 15:45 97.6 74 16 141/85 96 10/23/16 11:31 98.2 66 16 124/72 99 -: 10/23/16 0915 10/23/16 0915 Physical Exam General Appearance: No Acute Distress, Comfortable Eyes Eye Exam: Pupils Equal Throat Throat Exam: Oral Mucosa [place] & Moist Neck Neck Exam: Neck Supple, Trachea Midline Pulmonary Resp Exam: Breath Sounds Equal, No Distress, Rhonchi, Decreased Bases Cardiology CV Exam: Regular, Normal Sinus Rhythm Gastrointestinal/Abdomen GI Exam: Soft, Non-Tender, Bowel Sounds Present Extremeties Extremities Exam: Trace Edema Neurologic Neuro Exam: Alert, Awake, Oriented Psychiatric Psych Exam: Appropriate Responses Assessment/Plan Assessment Summary: Anemia of CKD, CHF, Hypertension, End Stage Renal Disease Problem List: (1) Chronic diastolic congestive heart failure (2) Nausea & vomiting (3) DM2 (diabetes mellitus, type 2) (4) Anemia (5) ESRD (end stage renal disease) on dialysis Plan Patient is now on HD, BP is stable. Has nausea, given Zofran. For AVF surgery after HD today. Remove fluid as tolerated. Hgb. is stable. Problem Qualifiers (1) DM2 (diabetes mellitus, type 2): Mia Medley MD October 24, 2016 10:32
[2016-10-24] MEDS ORDERED: BUPIVACAINE/EPINEPHRINE 0.5% PF 30 ML VIAL INFIL ONE (12:00)
[2016-10-24] MEDS ORDERED: PROPOFOL 200 MG/20 ML AMP IV ONE (12:00)
[2016-10-24] MEDS ORDERED: MIDAZOLAM HCL 2 MG/2 ML VIAL ONE (13:32)
[2016-10-24] MEDS ORDERED: FAMOTIDINE 20 MG/2 ML VIAL ONE (13:32)
[2016-10-24] MEDS ORDERED: KETAMINE HCL 500 MG/5 ML VIAL ONE (13:32)
[2016-10-24] MEDS ORDERED: HEPARIN SODIUM - SQ 10,000 UNITS/ML VIAL ONE (14:10)
[2016-10-24] MEDS ORDERED: BUPIVACAINE/EPINEPHRINE 0.5% 50 ML VIAL ONE (14:10)
[2016-10-24] MEDS ORDERED: BUPIVACAINE HCL PF 0.5% 30 ML VIAL ONE (14:10)
[2016-10-24] MEDS ORDERED: THROMBIN (TOPICAL) 5,000 UNIT VIAL ONE (14:11)
[2016-10-24] MEDS ORDERED: VANCOMYCIN HCL 1000 MG VIAL OTHER ONE (14:52)
[2016-10-24] MEDS ORDERED: DO NOT ADM ANY ANTICOAGULANT DRUGS PRN (16:30)
[2016-10-24] MEDS ORDERED: EPOETIN ALFA 4,000 UNITS/ML VIAL IV PRN (16:58)
--- NOTE | 2016-10-24 17:07 | HHI.PR ---
Immediate Post Op Note Procedure Date: October 24, 2016 Pre Op Diagnosis: (1) Stage 4 chronic kidney disease Post Op Diagnosis: (1) Stage 4 chronic kidney disease Surgeon: Adam Zamorano Soil Technologist(s): Ambrocio Shelton Procedure: Left upper extremity BC AVF. Findings: Patent left upper extremity AVF Additional Information: NA Complications: None Specimen(s) removed: NA Estimated blood loss: minimal Anesthesia: General, MAC Fluids: NA IVF Tourniquet time (min at mmHg) NA Patient to: PACU Patient Condition: Good Implant/Devices: Other Date/Time of Procedure: Other Adam Zamorano DO October 24, 2016 17:07
--- NOTE | 2016-10-24 17:09 | PD.VS.PN ---
Subjective Procedure(s): left bc avf Objective Vitals/I&O Date Time Temp Pulse Resp B/P Pulse Ox O2 Delivery O2 Flow Rate FiO2 10/24/16 07:29 97.8 65 16 143/88 96 10/23/16 23:13 98.8 65 18 134/81 99 10/23/16 21:00 98.4 63 18 121/75 99 10/24/16 10/24/16 10/24/16 07:00 15:00 23:00 Intake Total 300 ml Output Total 75 ml Balance 225 ml Pulses: thrill left upper extremity. phasic signals left radial and ulnar distribution. Assessment and Plan Assessment: (1) ESRD (end stage renal disease) on dialysis Status: Chronic Plan Status post left upper extremity BC avf. Neurologically intact left upper extremity with a palpable thrill. Adam Zamorano FACS, Spray Machine Tender of Vascular Surgery /Adam Fuentes DO October 24, 2016 17:09
[2016-10-24 17:24] VITALS: BP 192/95; PULSE 70; RESP 20; TEMP 96.1; O2SAT 100
[2016-10-24 18:00] VITALS: BP 180/90
[2016-10-24] MEDS: cloNIDine HCL 0.1 MG TAB PO PRN (18:52)
[2016-10-24 20:00] VITALS: BP 138/76; PULSE 70; RESP 18; TEMP 97.1; O2SAT 100
[2016-10-24] MEDS ORDERED: ACETAMINOPHEN/HYDROcodone 325 MG/5 MG TAB PO ONE (21:15)
[2016-10-24 22:23] VITALS: O2SAT 97
[2016-10-25] VITALS: BP 174/87; PULSE 63; RESP 17; TEMP 96.3; O2SAT 100
[2016-10-25] MEDS: cloNIDine HCL 0.2 MG TAB PO SCH ×3 (00:23→16:02)
[2016-10-25] MEDS: NIFEdipine 10 MG CAP PO SCH ×3 (00:24→16:02)
[2016-10-25 04:00] VITALS: BP 136/72; PULSE 65; RESP 16; TEMP 97.3; O2SAT 97
[2016-10-25] MEDS: INSULIN ASPART SUPPLEMENTAL SCALE SQ SCH ×3 (06:00→15:58)
[2016-10-25] MEDS: PANTOPRAZOLE SOD 20 MG DELAYED RELEASE TAB PO SCH (06:00)
[2016-10-25 08:46] VITALS: BP 159/84; PULSE 71; RESP 20; TEMP 99.3; O2SAT 99
--- NOTE | 2016-10-25 09:31 | PD.VS.PN ---
Subjective Procedure(s): left bc avf Objective Vitals/I&O Date Time Temp Pulse Resp B/P Pulse Ox O2 Delivery O2 Flow Rate FiO2 10/25/16 08:46 99.3 71 20 159/84 99 10/25/16 04:00 97.3 65 16 136/72 97 10/25/16 00:00 96.3 63 17 174/87 100 10/24/16 22:23 97 10/24/16 20:00 97.1 70 18 138/76 100 10/24/16 18:00 180/90 10/24/16 17:24 96.1 70 20 192/95 100 10/24/16 16:50 66 18 167/81 100 Nasal Cannula 2 10/24/16 16:30 66 18 149/88 99 Nasal Cannula 2 10/24/16 16:15 98.3 68 18 145/78 96 Nasal Cannula 2 10/25/16 10/25/16 10/25/16 06:59 14:59 22:59 Intake Total 480 ml Balance 480 ml Incisions: left arm incision intact. Left arm thrill felt. hand is warm and motor intact. Assessment and Plan Assessment: (1) ESRD (end stage renal disease) on dialysis Status: Chronic Plan Status post left upper extremity BC avf. Neurologically intact left upper extremity with a palpable thrill. Pain at incision site but otherwise left hand without pain. Suspect patient can be discharged home if no issues from a medical standpoint. Adam Zamorano FACS, Medical Engineer of Vascular Surgery [facility]/Adam Fuentes DO October 25, 2016 09:31
[2016-10-25] MEDS: CARVEDILOL 6.25 MG TAB PO SCH (09:36)
[2016-10-25] MEDS: LISINOPRIL 20 MG TAB PO SCH (09:36)
[2016-10-25] MEDS: HEPARIN SODIUM - SQ 10,000 UNITS/ML VIAL SQ SCH (09:37)
[2016-10-25] MEDS: INSULIN DETEMIR 100 UNITS/ML VIAL SQ SCH (09:37)
[2016-10-25] MEDS: SODIUM CHLORIDE 0.9% FLUSH 10 ML FLUSH IV FLUSH SCH (09:49)
[2016-10-25 12:00] VITALS: BP 112/66; PULSE 70; RESP 20; TEMP 99; O2SAT 100
[2016-10-25 12:21] LABS: HEMATOCRIT 33.1 % (35.0-46.0); MEAN CELL VOLUME 70.9 FL (80.0-100.0); MEAN CORPUSCULAR HEMOGLOBIN 22.6 PG (27.0-34.0); MEAN CORPUSCULAR HGB CONC 31.8 % (32.0-36.0); PLATELET COUNT 131 TH/MM3 (150-450); RED BLOOD COUNT 4.67 MIL/MM3 (4.00-5.30); RED CELL DISTRIBUTION WIDTH 22.4 % (11.6-17.2)
[2016-10-25 12:24] LABS: REVIEW FLAG FINAL
[2016-10-25 12:54] LABS: BICARBONATE 27.8 MEQ/L (21.0-32.0); POTASSIUM 3.3 MEQ/L (3.5-5.1)
[2016-10-25] MEDS ORDERED: OXYC-392 PO (13:40)
--- NOTE | 2016-10-25 13:41 | HHI.DCPOC ---
Discharge Care Plan Diagnosis: (1) DM2 (diabetes mellitus, type 2) (2) Nausea & vomiting (3) ESRD (end stage renal disease) on dialysis (4) AVF (arteriovenous fistula) Goals to Promote Your Health * To prevent worsening of your condition and complications * To maintain your health at the optimal level Directions to Meet Your Goals Take your medications as prescribed Follow your dietary instruction Follow activity as directed Keep your appointments as scheduled Take your immunizations and boosters as scheduled If your symptoms worsen call your PCP, if no PCP go to Urgent Care Center or Emergency Room Smoking is Dangerous to Your Health. Avoid second hand smoke Call the 24-hour hour crisis hotline for domestic abuse at Grady Méndez DO October 25, 2016 13:41
[2016-10-25] MEDS ORDERED: POTASSIUM CHLORIDE 20 MEQ CONTROLLED RELEASE TAB PO ONE (13:45)
--- NOTE | 2016-10-25 13:49 | HHI.DS ---
Discharge Summary Admission Date October 23, 2016 at 17:43 Discharge Date: October 25, 2016 Admitting Diagnosis intractable vomiting, abdominal pain (1) AVF (arteriovenous fistula) ICD Code: I77.0 (2) DM2 (diabetes mellitus, type 2) ICD Code: E11.9 (3) Anemia ICD Code: D64.9 (4) ESRD (end stage renal disease) on dialysis ICD Code: N18.6 (5) Nausea, vomiting and diarrhea ICD Code: R11.2 Procedures AVF placement 10/24. Brief History - From Admission Patient is a 51-year-old female with history of hypertension, end-stage renal disease secondary to hypertensive and diabetic nephropathy for the past week now has been feeling nausea vomiting. No other family members with the same symptoms. First day of the symptoms all week ago patient had episodes of diarrhea but since then none with regular bowel movements. Due to this nausea vomiting patient was unable to hold down any medications. She also missed 2 sessions of hemodialysis. She is followed by Dr. Garcia Friday and gets hemodialysis at the [facility]. Patient denies any fever or chills cough. Denies any urinary symptoms. No melena or hematochezia per. Persistence of nausea and vomiting prompted consult to ER and on evaluation was noted to have a blood pressure of diastolic blood pressures OVER 100. Patient admitted for further evaluation. Patient states compliance with insulins regimen. States good hypoglycemic awareness however for the past 2 or 3 days now has been having high readings. Patient denies any headaches. She states she is still sexually active postmenopausal. Denies any vaginal discharge CBC/BMP: 10/25/16 1047 10/25/16 1047 Significant Findings Laboratory Tests Test 10/23/16 10/25/16 09:15 10:47 Hemoglobin 11.2 GM/DL 10.5 GM/DL (11.6-15.3) (11.6-15.3) Mean Corpuscular Volume 71.7 FL 70.9 FL (80.0-100.0) (80.0-100.0) Mean Corpuscular Hemoglobin 21.9 PG 22.6 PG (27.0-34.0) (27.0-34.0) Mean Corpuscular Hemoglobin 30.6 % 31.8 % Concent (32.0-36.0) (32.0-36.0) Red Cell Distribution Width 22.5 % 22.4 % (11.6-17.2) (11.6-17.2) Monocytes (%) (Auto) 8.4 % (0.0-8.0) Eosinophils (%) (Auto) 20.6 % (0.0-4.0) Eosinophils # (Auto) 1.3 TH/MM3 (0-0.4) Potassium Level 3.4 MEQ/L 3.3 MEQ/L (3.5-5.1) (3.5-5.1) Blood Urea Nitrogen 26 MG/DL (7-18) 28 MG/DL (7-18) Creatinine 3.28 MG/DL 3.33 MG/DL (0.50-1.00) (0.50-1.00) Estimat Glomerular Filtration 15 ML/MIN (>89) 15 ML/MIN (>89) Rate Random Glucose 145 MG/DL 126 MG/DL (74-106) (74-106) Calcium Level 8.3 MG/DL 8.0 MG/DL (8.5-10.1) (8.5-10.1) White Blood Count 13.0 TH/MM3 (4.0-11.0) Hematocrit 33.1 % (35.0-46.0) Platelet Count 131 TH/MM3 (150-450) Imaging Last Impressions Gastric Emptying Nuclear Medicine 10/22/16 0000 Signed Impressions: Service Date/Time: Saturday, October 22, 2016 12:18 - CONCLUSION: 1. 30 minute lag phase 2. No scintigraphic findings of gastroparesis. Tho Beltran MD Chest X-Ray 10/21/16 2220 Signed Impressions: Service Date/Time: Friday, October 21, 2016 22:32 - CONCLUSION: No acute disease Adolfo Thomas MD PE at Discharge GENERAL: Well-developed well-nourished. In no acute distress. SKIN: Warm and dry. Dialysis catheter in place on the right chest wall. HEENT: Normocephalic. Pupils equal and round. Mucous membranes pink and moist. CARDIOVASCULAR: Regular rate and rhythm. No murmur appreciated. RESPIRATORY: No accessory muscle use. Clear to auscultation. Breath sounds equal bilaterally. GASTROINTESTINAL: Abdomen soft, nontender, nondistended. Bowel sounds x4. MUSCULOSKELETAL: No obvious deformities. No clubbing or cyanosis. No edema. NEUROLOGICAL: Awake and alert. No focal neurological deficits. Moves upper and lower extremities spontaneously. Normal speech. PSYCHIATRIC: Appropriate mood and affect; insight and judgment normal. Pt update on day of discharge The pt had pain in the LUE. She said the pain medications worked. She wanted to go home. She said she would go to dialysis tomorrow. Discussed with nursing. Hospital Course End-stage renal disease on hemodialysis Has dialysis TTS. Missed 1 hemodialysis session and could not complete the next session due to nausea. Nephrology was consulted for hemodialysis arrangement. Vascular surgery was consulted for AVF placement. The pt went for surgery . She will follow up with nephrology and vascular surgery. She received pain control as needed. Gastroenteritis Patient with a one-week history of nausea, vomiting, diarrhea, chills, sweats. CT 10/20/16 was essentially unremarkable. Symptoms have continued to improve throughout hospitalization. Gastric emptying negative for gastroparesis. Now tolerating full diet. Pt Condition on Discharge: Stable Discharge Disposition: Discharge Home Discharge Time: > 30 minutes Discharge Instructions DIET: Follow Instructions for: Renal Failure Diet Activities you can perform: Weight Bearing as [place] Follow up Referrals: Nephrology - 10/26/16 PCP Follow-up - 1 Week Vascular Surgery - 1 Week with Adam Zamorano V. DO New Medications: Oxycodone (Oxycodone) 5 Mg Tab 5 MG PO Q6HR PRN PAIN SCALE 1 TO 10 #20 TAB Continued Medications: Carvedilol (Coreg) 6.25 Mg Tab 6.25 MG PO BID #60 Ref 0 TAB Clonidine (Clonidine) 0.1 Mg Tab 0.1 MG PO DAILY Blood Pressure Management #60 Ref 0 TAB Furosemide (Lasix) 20 Mg Tab 20 MG PO BID #60 Ref 0 TAB Gabapentin (Neurontin) 300 Mg Cap 300 MG PO DAILY #30 Ref 1 CAP Insulin Detemir Inj (Levemir Inj) 1,000 unit/ 10 ML Vial 22 UNITS SQ Q12HR Blood Sugar Management #30 Ref 1 INJECTION Lisinopril (Lisinopril) 20 Mg Tab 20 MG PO BID Blood Pressure Management #60 TAB Nifedipine (Procardia) 10 Mg Cap 10 MG PO BID Chest Pain #1 Ref 0 CAP Omeprazole (Omeprazole) 20 Mg Tab 20 MG PO DAILY #30 Ref 0 TAB Ondansetron Odt (Zofran Odt) 4 Mg Tab 4 MG SL Q6HR PRN Nausea/Vomiting #12 Ref 0 TAB Discontinued Medications: Nitrofurantoin Monohydrate Macrocrystals (Macrobid) 100 Mg Cap 100 MG PO BID Infection Days 5 Ref 0 CAP Additional Information Discharge time > 30 minutes. Grady Méndez DO October 25, 2016 13:49
[2016-10-25 16:22] VITALS: BP 138/73; PULSE 71; RESP 20; TEMP 98.9; O2SAT 96
--- NOTE | 2016-10-25 18:45 | HHI.NPPN ---
Subjective General Problems: Anemia, Heart Disease Renal Failure: End Stage Renal Disease History of Present Illness 51-year-old female known to me from before with past medical history of hypertension, ischemic heart disease, congestive heart failure, diabetes mellitus, end-stage renal disease on hemodialysis three times per week came to the hospital with complaint of vomiting going on off and on for the last one week. I was called to see the patient because of management of hemodialysis. She has been on hemodialysis Friday, and Friday. Additional Remarks Patient is alert, no SOB, mild pain in left arm. Review of Systems General Constitutional: Fatigue Cardiovascular Cardiac: CRUZ Gastrointestinal Gastrointestinal: Abdominal Pain, Nausea & Vomiting Objective Data Data 10/24/16 10/25/16 18:59 06:59 Intake Total 520 ml 480 ml Output Total 75 ml Balance 445 ml 480 ml Intake Oral 120 ml 480 ml Other 400 ml Output Urine Total 0 ml Estimated Blood Loss 75 ml # Voids 2 # Bowel Movements 1 Vital Signs Date Time Temp Pulse Resp B/P Pulse Ox O2 Delivery O2 Flow Rate FiO2 10/25/16 16:22 98.9 71 20 138/73 96 10/25/16 15:05 18 10/25/16 14:00 Nasal Cannula 2.00 10/25/16 12:00 99.0 70 20 112/66 100 10/25/16 08:46 99.3 71 20 159/84 99 10/25/16 04:00 97.3 65 16 136/72 97 10/25/16 00:00 96.3 63 17 174/87 100 10/24/16 22:23 97 10/24/16 20:00 97.1 70 18 138/76 100 -: 10/25/16 1047 10/25/16 1047 Physical Exam General Appearance: No Acute Distress, Comfortable Eyes Eye Exam: Pupils Equal Throat Throat Exam: Oral Mucosa [place] & Moist Neck Neck Exam: Neck Supple, Trachea Midline Pulmonary Resp Exam: Breath Sounds Equal, No Distress, Rhonchi, Decreased Bases Cardiology CV Exam: Regular, Normal Sinus Rhythm Gastrointestinal/Abdomen GI Exam: Soft, Non-Tender, Bowel Sounds Present Extremeties Extremities Exam: Trace Edema Neurologic Neuro Exam: Alert, Awake, Oriented Psychiatric Psych Exam: Appropriate Responses Assessment/Plan Assessment Summary: Anemia of CKD, CHF, Hypertension, End Stage Renal Disease Problem List: (1) Chronic diastolic congestive heart failure (2) Nausea & vomiting (3) DM2 (diabetes mellitus, type 2) (4) Anemia (5) ESRD (end stage renal disease) on dialysis Plan AVF done, has good Bruit. Has no steal in the hand. BP is stable. Possible D/C. HD is due in AM. Problem Qualifiers (1) DM2 (diabetes mellitus, type 2): Mia Medley MD October 25, 2016 18:45
--- NOTE | 2016-10-26 07:47 | MP ---
cc: TYRESE ESPINOZA DATE OF SURGERY: 10/14/2016 PREOPERATIVE DIAGNOSIS: End-stage renal disease. POSTOPERATIVE DIAGNOSIS: End stage renal disease. PROCEDURE Left upper extremity brachiocephalic AV fistula SURGEON MD Lona. REFRIGERATION SERVICE TECHNICIAN; Ambrocio Shelton ESTIMATED BLOOD LOSS Minimal URINE OUTPUT Not calculated. COMPLICATIONS None DISPOSITION To postanesthesia care unit. PROCEDURE The patient's left upper extremity prepped, draped in sterile fashion after being under MAC anesthesia given perioperative antibiotics. I injected a total of 15 cc during the case of 0.25% Marcaine with epinephrine. The left upper extremity just above the area antecubital fossa made an incision was scalpel and electrocautery. I dissected down and divided the cephalic vein distally with a medium clips and the branches with small clips and ties as needed. I mobilized the proximal distal brachial artery with vessel loops. I then performed arteriotomy with an 11-blade and Saez scissors. After giving the patient 3000 units of heparin. I controlled vessel with pediatric profunda clamps. I did an end-to-side anastomosis of the cephalic vein just above the antecubital fossa to the vessel, with a 5-0 Prolene in a continuous running fashion. At the end of the procedure there was a nice thrill in the vein. The patient had triphasic signals in the radial and ulnar distribution. I did use two 6-0 Prolene stitches to help out with a fany anastomotic bleeding and side branch bleeding. Otherwise I used the Surgicel to help out with hemostasis and closed in layers with 2-0 and 3 Vicryl absorbable 3-0 Monocryl and a 4-0 Monocryl suture with Dermabond over the skin. The patient tolerated the procedure well. DO ELVIN Arellano/keren /5:07 PM /7:18 AM
[2016-12-12] MEDS ORDERED: FERR325T2 PO (06:45)
== END 2016-10-25 16:30 | disposition home or self-care (01) | DRG 264 ==
LOC: NEPE 19:40 → NEDA 10-22 01:50 → NEPFCDU 10-22 04:16 → OBSVTOIN 10-23 17:43 → HOCB 10-24 16:32
PROVIDERS: ADMIT Hospitalist; ATTEND Hospitalist
PROC: 5A1D60Z (ICD-10-PCS; 2016-10-24)
PROC: 03180ZD Bypass Left Brachial Artery to Upper Arm Vein, Open Approach (ICD-10-PCS; principal; 2016-10-24 14:03)
DX: I13.2 Hypertensive heart and chronic kidney disease with heart failure and with stage 5 chronic kidney disease, or end stage renal disease (principal); N18.6 End stage renal disease; E11.21 Type 2 diabetes mellitus with diabetic nephropathy; I50.32 Chronic diastolic (congestive) heart failure; D63.1 Anemia in chronic kidney disease; E11.22 Type 2 diabetes mellitus with diabetic chronic kidney disease; E78.00 Pure hypercholesterolemia, unspecified; G47.30 Sleep apnea, unspecified; I16.0 Hypertensive urgency; I25.9 Chronic ischemic heart disease, unspecified; K21.9 Gastro-esophageal reflux disease without esophagitis; Z79.4 Long term (current) use of insulin; Z79.899 Other long term (current) drug therapy; Z86.73 Personal history of transient ischemic attack (TIA), and cerebral infarction without residual deficits; Z87.891 Personal history of nicotine dependence; Z95.5 Presence of coronary angioplasty implant and graft; Z99.2 Dependence on renal dialysis
CPT/HCPCS: 71010; 76937; 78264; 80048; 80053; 80307; 81001; 82948; 83690; 85025; 85027; 90935; 93005; 96374; 96375; 96376; A9541; G0257; G8987-GP; G8988-GP; J1644; J1815; J2250; J2405; J2765; J3010; J3370; Q4081

== ENCOUNTER 2016-11-22 13:36 | Emergency (ER) | payer MEDICAID ==
[~2016-11-22] VITALS: Ht 170.2 cm; Wt 100.0 kg
[~2016-11-22 13:36] MED LIST changes: -ACET325T PO; -ASPI81TA11 PO; -ATOR1TAB18 PO; -CARV12.5 PO; -CLON.1 PO; -COMMODE 3-IN-11 MIS; -DOCU1CAP39 PO; -FERR325T PO; -FURO40TA PO; -GETGO ROLLING W1 MI1; -HYDR50TA15 PO; -LEVE250 PO; -MACR100C2 PO; -ONDA4TAB7 PO; +OXYC-392 PO; -PANT40TA3 PO; -WHEEMIS3
[2016-11-22 13:37] VITALS: BP 230/130; PULSE 86; RESP 20; TEMP 98.3; O2SAT 99
--- NOTE | 2016-11-22 13:42 | PD ---
Physical Exam Date Seen by Provider: Nov 22, 2016 Time Seen by Provider: 13:40 Data Data Last Documented VS Vital Signs Date Time Temp Pulse Resp B/P Pulse Ox O2 Delivery O2 Flow Rate FiO2 11/22/16 13:37 98.3 86 20 230/130 99 Room Air MDM Supervised Visit with MONTY: No Narrative Course 51 YO F with PMH of HTN with complaint of periumbilical abdominal pain, diarrhea and vomiting x 4 days. Denies dysuria. Vitals reviewed. Awaiting bed placement. Wendy Pryor Nov 22, 2016 13:42
--- NOTE | 2016-11-22 14:06 | PD ---
HPI Chief Complaint: GI Complaint Time Seen by Provider: 14:06 Travel History International Travel<30 days: No Contact w/Intl Traveler<30days: No Traveled to known affect area: No History of Present Illness HPI 51-year-old Afro-[place]i female presents emergency Department with a four-day history of upper abdominal discomfort, nausea, vomiting with abdominal pain. Patient also states diarrhea. Patient is on dialysis with Dr. Medley, and states she is overdue for dialysis yesterday. Patient has a history of hypertension, and states she took her meds this morning but threw them up. She states she is unable to keep anything down at this time. Her pain is a 5 out of 10. Patient states she does still make urine but denies urinary symptoms. She denies fever but has had chills. Patient has a port on the right upper chest, as well as a recent AV fistula placed approximately month ago. Patient denies headache, sore throat or upper respiratory symptoms. She denies shortness of breath or cough. She is allergic to Lyrica. Patient states Zofran does not work for her nausea. She has a history of MRSA. PFSH Past Medical History Hx Anticoagulant Therapy: Yes Arthritis: No Asthma: No Autoimmune Disease: No Blood Disorders: No Anxiety: No Depression: Yes Heart Rhythm Problems: No Cancer: No Cardiovascular Problems: Yes High Cholesterol: Yes Chemotherapy: No Chest Pain: No Congestive Heart Failure: Yes COPD: No Cerebrovascular Accident: Yes Diabetes: Yes Diminished Hearing: No Endocrine: Yes GERD: Yes Genitourinary: Yes (ESRD WITH DIALYSIS t//fri) Hiatal Hernia: No Hypertension: Yes Immune Disorder: No Implanted Vascular Access Dvce: Yes Kidney Stones: No Musculoskeletal: No Neurologic: Yes Psychiatric: Yes Reproductive: No Respiratory: Yes Immunizations Current: No Migraines: No Radiation Therapy: No Renal Failure: Yes (d/t dye for cardiac stent insertions) Seizures: Yes Sickle Cell Disease: No Sleep Apnea: Yes (Wears CPAP ) Thyroid Disease: No Ulcer: No Menopausal: Yes : 3 Para: 3 Miscarriage: 0 Past Surgical History Abdominal Surgery: No AICD: No Arteriovenous Shunt: No Body Medical Devices: RIGHT CHEST DIALYSIS ACCESS, CARDIAC STENTS Cardiac Surgery: Yes (STENTS (2) ) Section: Yes Ear Surgery: No Endocrine Surgery: No Eye Surgery: No Genitourinary Surgery: No Gynecologic Surgery: Yes Insulin Pump: No Joint Replacement: No Oral Surgery: No Pacemaker: No Thoracic Surgery: No Other Surgery: Yes (CARDIAC CATH 2016) Social History Alcohol Use: No Tobacco Use: No Substance Use: No Allergies-Medications (Allergen,Severity, Reaction): Coded Allergies: Lyrica (Verified Allergy, Severe, Anaphylaxis, 10/21/16) *MDRO Multi-Drug Resistant Organism (Verified Adverse Reaction, Unknown, ) MRSA (sputum)-07/20/16 MRSA PCR Screen POSITIVE - 07/18/2016 Reported Meds & Prescriptions Reported Meds & Active Scripts Active Levemir Inj (Insulin Detemir) 1,000 unit/ 10 ML Vial 22 Units SQ Q12HR Neurontin (Gabapentin) 300 Mg Cap 300 Mg PO DAILY Reported Lisinopril 20 Mg Tab 20 Mg PO DAILY Nifedipine 10 Mg Cap 10 Mg PO DAILY Lasix (Furosemide) 20 Mg Tab 20 Mg PO BID Omeprazole 20 Mg Tab 20 Mg PO DAILY Clonidine (Clonidine HCl) 0.1 Mg Tab 0.1 Mg PO DAILY Coreg (Carvedilol) 6.25 Mg Tab 6.25 Mg PO BID Review of Systems Except as stated in HPI: all other systems reviewed are Neg General / Constitutional: Positive: Chills, No: Fever Eyes: No: Visual changes HENT: No: Headaches Cardiovascular: No: Chest Pain or Discomfort Respiratory: No: Shortness of Breath Gastrointestinal: Positive: Nausea, Vomiting, Diarrhea, Abdominal Pain Genitourinary: No: Dysuria Musculoskeletal: No: Pain Skin: No Rash Neurologic: No: Weakness Psychiatric: No: Depression Endocrine: No: Polydipsia Hematologic/Lymphatic: No: Easy Bruising Physical Exam Narrative GENERAL: Patient appears mildly ill but not acute. SKIN: Warm and dry. Normal color. Normal turgor. HEAD: Atraumatic. Normocephalic. EYES: Pupils equal and round. No scleral icterus. No injection or drainage. ENT: No nasal bleeding or discharge. Mucous membranes pink and moist. Pharynx is clear. Airway is patent. NECK: Trachea midline. Supple and nontender. CARDIOVASCULAR: Regular rate and rhythm. No murmurs gallops or rubs. RESPIRATORY: No accessory muscle use. Clear to auscultation. Breath sounds equal bilaterally. GASTROINTESTINAL: Abdomen soft, mild diffuse tenderness along the upper aspect of the abdomen, nondistended. No point tenderness or rebound. No CVA tenderness. Hepatic and splenic margins not palpable. MUSCULOSKELETAL: Extremities without clubbing, cyanosis, or edema. No obvious deformities. NEUROLOGICAL: Awake and alert. No obvious cranial nerve deficits. Motor grossly within normal limits. Five out of 5 muscle strength in the arms and legs. Normal speech. PSYCHIATRIC: Appropriate mood and affect; insight and judgment normal. Data Data Last Documented VS Vital Signs Date Time Temp Pulse Resp B/P Pulse Ox O2 Delivery O2 Flow Rate FiO2 11/22/16 16:13 84 18 159/84 99 11/22/16 15:38 Room Air 11/22/16 13:37 98.3 Orders Complete Blood Count With Diff (11/22/16 14:15) Comprehensive Metabolic Panel (11/22/16 14:15) Lipase (11/22/16 14:15) Lactic Acid (11/22/16 14:15) Prothrombin Time / Inr (Pt) (11/22/16 14:15) Act Partial Throm Time (Ptt) (11/22/16 14:15) Urinalysis - C+S If Indicated (11/22/16 14:15) Ct Abd/Pel W/O Iv Contrast (11/22/16 14:15) Iv Access Insert/Monitor (11/22/16 14:15) Ecg Monitoring (11/22/16 14:15) Oximetry (11/22/16 14:15) NPO (11/22/16 14:15) Pantoprazole Inj (Protonix Inj) (11/22/16 14:15) Sodium Chloride 0.9% Flush (Ns Flush) (11/22/16 14:15) Electrocardiogram (11/22/16 14:15) Prochlorperazine Inj (Compazine Inj) (11/22/16 14:15) Sodium Chlorid 0.9% 500 Ml Inj (Ns 500 M (11/22/16 14:15) Nicardipine Inj (Cardene Inj) (11/22/16 14:30) Blood Flow Rate (11/22/16 15:25) Dialysate Flow Rate (11/22/16 15:25) Dialyzer (11/22/16 15:25) Concentrate (11/22/16 15:25) Acid Concentrate (11/22/16 15:25) Length Of Dialysis (11/22/16 15:25) Frequency Of Dialysis (11/22/16 15:25) Dialysis Obtain (11/22/16 15:25) Needle Size (11/22/16 15:25) Dialysis Schedule (11/22/16 15:25) Resp Oxygen Prosper C Titrat 1-4 L (11/22/16 ) Dialysis Weight (11/22/16 15:25) ^ Obtain As Needed (11/22/16 15:25) Sodium Chlor 0.9% 1000 Ml Inj (Ns 1000 M (11/22/16 15:25) Heparin Inj (Heparin Inj) (11/22/16 15:30) Sodium Chlor 0.9% 1000 Ml Inj (Ns 1000 M (11/22/16 15:25) Sodium Chlor 0.9% 1000 Ml Inj (Ns 1000 M (11/22/16 15:25) Mannitol Inj (Mannitol Inj) (11/22/16 15:30) Albumin 25% Inj (Albumin 25% Inj) (11/22/16 15:30) Sodium Chloride 0.9% Flush (Ns Flush) (11/22/16 15:30) Heparin Inj (Heparin Inj) (11/22/16 15:30) Gentamicin (Dialysis) Inj (Gentamicin (D (11/22/16 15:30) Ondansetron Inj (Zofran Inj) (11/22/16 15:30) Acetaminophen (Tylenol) (11/22/16 15:30) Diphenhydramine (Benadryl) (11/22/16 15:30) Nitroglycerin Sl (Nitrostat Sl) (11/22/16 15:30) Clonidine (Catapres) (11/22/16 15:30) Epoetin Joseph Inj (Epogen Inj) (11/22/16 15:30) Gelatin 12 Mm/7 Mm Top (Gelfoam 12 Mm/7 (11/22/16 15:30) Diphenhydramine Inj (Benadryl Inj) (11/22/16 16:15) Labs Laboratory Tests Test 11/22/16 14:45 White Blood Count 4.2 TH/MM3 Red Blood Count 5.13 MIL/MM3 Hemoglobin 11.9 GM/DL Hematocrit 37.1 % Mean Corpuscular Volume 72.4 FL Mean Corpuscular Hemoglobin 23.3 PG Mean Corpuscular Hemoglobin 32.2 % Concent Red Cell Distribution Width 20.3 % Platelet Count 163 TH/MM3 Mean Platelet Volume 9.0 FL Neutrophils (%) (Auto) 56.7 % Lymphocytes (%) (Auto) 26.1 % Monocytes (%) (Auto) 11.6 % Eosinophils (%) (Auto) 4.5 % Basophils (%) (Auto) 1.1 % Neutrophils # (Auto) 2.4 TH/MM3 Lymphocytes # (Auto) 1.1 TH/MM3 Monocytes # (Auto) 0.5 TH/MM3 Eosinophils # (Auto) 0.2 TH/MM3 Basophils # (Auto) 0.0 TH/MM3 CBC Comment DIFF FINAL Differential Comment Prothrombin Time 11.5 SEC Prothromb Time International 1.0 RATIO Ratio Activated Partial 23.8 SEC Thromboplast Time Sodium Level 142 MEQ/L Potassium Level 3.9 MEQ/L Chloride Level 107 MEQ/L Carbon Dioxide Level 27.0 MEQ/L Anion Gap 8 MEQ/L Blood Urea Nitrogen 26 MG/DL Creatinine 2.68 MG/DL Estimat Glomerular Filtration 19 ML/MIN Rate Random Glucose 126 MG/DL Lactic Acid Level 1.0 mmol/L Calcium Level 8.6 MG/DL Total Bilirubin 0.7 MG/DL Aspartate Amino Transf 18 U/L (AST/SGOT) Alanine Aminotransferase 15 U/L (ALT/SGPT) Alkaline Phosphatase 80 U/L Total Protein 6.5 GM/DL Albumin 2.5 GM/DL Lipase 97 U/L [facility] Medical Decision Making Medical Screen Exam Complete: Yes Emergency Medical Condition: Yes Medical Record Reviewed: Yes Differential Diagnosis Hypertensive crisis. Need for dialysis. Electolyte imbalance. Narrative Course Patient appears medically stable at time of exam. Patient is discussed with Dr. Aponte who recommends a Cardene drip. EKG is ordered. Labs ordered including CBC, CMP, lactic acid, PT PTT and INR, and urinalysis. IV access is obtained patient is given 25 mg Compazine IV as well as 500 mL's normal saline. CT of the abdomen ordered. CT shows no specific findings. Per radiologist. 1600 hrs. the patient complains of feeling anxious and like her skin is crawling and wants to leave. Patient is examined and felt to be having extrapyramidal symptoms to the Compazine. Patient is given 50 mg Benadryl IV. Labs show no significant findings and CBC. CMP shows stable electrolytes, but elevated BUN and creatinine. Urinalysis is still pending. 1620 hrs. the patient is requesting to leave AMA. AMA paperwork is spread and the patient signs out on her own volition. Disposition: 07 AGAINST MEDICAL ADVICE Condition: Stable Brody Quinteros Nov 22, 2016 14:06
[2016-11-22] MEDS ORDERED: SODIUM CHLORID 0.9% 500 ML INJ 500 ML IV ONE (14:15)
[2016-11-22] MEDS ORDERED: PANTOPRAZOLE SODIUM 40 MG VIAL IVP ONE (14:15)
[2016-11-22] MEDS ORDERED: PROCHLORPERAZINE INJ 10 MG/2 ML VIAL IV PUSH ONE (14:15)
[2016-11-22] MEDS ORDERED: SODIUM CHLORIDE 0.9% FLUSH 10 ML FLUSH IV FLUSH PRN ×2 (14:15→15:30)
[2016-11-22 14:27] VITALS: O2SAT 99
[2016-11-22] MEDS ORDERED: niCARdipine INJ 25 MG in SODIUM CHLOR 0.9% 250 ML INJ 250 ML IV ONE (14:30)
[2016-11-22] MEDS ORDERED: NIFE10CA PO (14:46)
[2016-11-22] MEDS ORDERED: LISI-515 PO (14:46)
[2016-11-22 15:20] VITALS: BP 207/108; PULSE 78; RESP 18; O2SAT 98
--- NOTE | 2016-11-22 15:22 | RADRPT ---
EXAM DATE/TIME: 11/22/2016 15:01 [facility] COMPARISON: CT ABDOMEN & PELVIS W/O CONTRAST, October 20, 2016, 9:36. INDICATIONS : Epigastric pain with vomiting and diarrhea for 4 days. ORAL CONTRAST: No oral contrast ingested. RADIATION DOSE: 6.88 CTDIvol (mGy) MEDICAL HISTORY : Congestive heart failure. Hypertension. Renal failure, chronic. SURGICAL HISTORY : Heart stents. ENCOUNTER: Initial ACUITY: 4 - 6 days PAIN SCALE: 6/10 LOCATION: Bilateral upper abdomen. TECHNIQUE: Volumetric scanning of the abdomen and pelvis was performed. Using automated exposure control and ad justment of the mA and/or kV according to patient size, radiation dose was kept as low as reasonably achievable to obtain optimal diagnostic quality images. FINDINGS: Lung bases are clear. Trace pericardial effusion is evident. The liver is free of focal defects. S pleen, pancreas, adrenal glands and kidneys are unremarkable. There is no ascites. Generalized anas arca is evident. In the pelvis, uterus is prominent. There is no free fluid or free air. CONCLUSION: 1. Nonspecific bowel gas pattern. 2. There is no free air or free fluid. Zai Mortensen MD FACR on November 22, 2016 at 15:17 Board Certified Radiologist. This report was verified electronically.
[2016-11-22 15:25] LABS: AUTOMATED NEUTROPHIL # 2.4 TH/MM3 (1.8-7.7); BASOPHIL % 1.1 % (0.0-2.0); EOSINOPHIL # 0.2 TH/MM3 (0-0.4); EOSINOPHIL % 4.5 % (0.0-4.0); HEMATOCRIT 37.1 % (35.0-46.0); HEMO FLAGS DIFF FINAL; LYMPH % 26.1 % (9.0-44.0); LYMPHOCYTE # 1.1 TH/MM3 (1.0-4.8); MEAN CELL VOLUME 72.4 FL (80.0-100.0); MEAN CORPUSCULAR HEMOGLOBIN 23.3 PG (27.0-34.0); MEAN CORPUSCULAR HGB CONC 32.2 % (32.0-36.0); MONO % 11.6 % (0.0-8.0); NEUT % 56.7 % (16.0-70.0); PLATELET COUNT 163 TH/MM3 (150-450); RED BLOOD COUNT 5.13 MIL/MM3 (4.00-5.30); RED CELL DISTRIBUTION WIDTH 20.3 % (11.6-17.2); WHITE BLOOD COUNT 4.2 TH/MM3 (4.0-11.0)
[2016-11-22] MEDS ORDERED: SODIUM CHLOR 0.9% 1000 ML INJ 1,000 ML IV PRN ×3 (15:25)
[2016-11-22 15:26] LABS: APTT (PATIENT) 23.8 SEC (24.3-30.1); PROTHROMBIN TIME - PATIENT 11.5 SEC (9.8-11.6)
[2016-11-22] MEDS ORDERED: ALBUMIN HUMAN 25% 25 GM/100 ML BAGP IV PRN (15:30)
[2016-11-22] MEDS ORDERED: diphenhydrAMINE HCL 25 MG CAP PO PRN (15:30)
[2016-11-22] MEDS ORDERED: EPOETIN ALFA 10,000 UNITS/ML VIAL IV PRN (15:30)
[2016-11-22] MEDS ORDERED: ACETAMINOPHEN 325 MG TAB PO PRN (15:30)
[2016-11-22] MEDS ORDERED: ONDANSETRON HCL 4 MG/2 ML VIAL IV PRN (15:30)
[2016-11-22] MEDS ORDERED: NITROGLYCERIN 0.4 MG SL 25 TABS/BTL SL PRN (15:30)
[2016-11-22] MEDS ORDERED: GELATIN 12 MM/7 MM FOAM TOP PRN (15:30)
[2016-11-22] MEDS ORDERED: MANNITOL 12.5 GM/50 ML VIAL IV PRN (15:30)
[2016-11-22] MEDS ORDERED: cloNIDine HCL 0.1 MG TAB PO PRN (15:30)
[2016-11-22] MEDS ORDERED: HEPARIN SODIUM - IV 10,000 UNITS/10 ML VIAL PRN (15:30)
[2016-11-22] MEDS ORDERED: HEPARIN SODIUM - IV 10,000 UNITS/10 ML VIAL IVF PRN (15:30)
[2016-11-22] MEDS ORDERED: GENTAMICIN SULFATE (DIALYSIS USE ONLY) 20 MG/2 ML VIAL IV PRN (15:30)
[2016-11-22 15:38] VITALS: BP 184/89; PULSE 80; RESP 18; O2SAT 100
[2016-11-22 15:43] LABS: ALKALINE PHOSPHATASE 80 U/L (45-117); TOTAL BILIRUBIN ADULT 0.7 MG/DL (0.2-1.0)
[2016-11-22 15:56] LABS: ALT (GPT) 15 U/L (10-53); ANION GAP 8 MEQ/L (5-15); AST (GOT) 18 U/L (15-37); BLOOD UREA NITROGEN 26 MG/DL (7-18); CHLORIDE 107 MEQ/L (98-107); GLOMERULAR FILTRATION RATE 19 ML/MIN (>89); SODIUM (NA) 142 MEQ/L (136-145)
[2016-11-22 15:57] LABS: POTASSIUM 3.9 MEQ/L (3.5-5.1)
[2016-11-22 16:13] VITALS: BP 159/84; PULSE 84; RESP 18; O2SAT 99
[2016-11-22] MEDS ORDERED: diphenhydrAMINE HCL 50 MG/ML VIAL IV PUSH ONE (16:15)
[2016-11-22 16:35] LABS: BLOOD, URINE SMALL (NEG); COMMENT (UR) CULT NOT INDICATED; CULTURE IF INDICATED CULT NOT INDICATED; GLUCOSE,URINE 300 mg/dL (NEG); HYALINE CAST, URINE 19 /lpf (RARE); KETONE, URINE TRACE mg/dL (NEG); NITRITE,URINE NEG (NEG); SQUAMOUS EPITHELIAL CELL URINE 6 /hpf (0-5); URINE COLOR YELLOW (YELLW/STRAW)
--- NOTE | 2016-11-22 16:56 | MB ---
cc: PARESH PAYNE MD DATE OF CONSULTATION 11/22/16 REASON FOR CONSULTATION End-stage renal disease on hemodialysis for management. HISTORY OF PRESENT ILLNESS This is a 51-year-old female with past medical history of hypertension, ischemic heart disease, congestive heart failure, diabetes mellitus, chronic anemia and end-stage renal disease on hemodialysis, came to the hospital with complaint of epigastric pain and vomiting. I was called to see the patient for management of dialysis. The patient has been on hemodialysis Friday, and Friday. The patient missed her dialysis yesterday which was and the last two or three days she having this recurrent epigastric pain associated with vomiting three to four times a day. There is no blood in vomitus. The abdominal pain mainly in the epigastric area and it is cramping in nature, associated also with headache and some time she is feeling dizzy. There is no history of fever. No history of diarrhea. She has still been passing good amount of urine. She has been missing dialysis treatment off and on. PAST MEDICAL HISTORY Hypertension, ischemic heart disease, diabetes mellitus, congestive heart failure, end-stage renal disease on hemodialysis, anemia. PAST SURGICAL HISTORY Left arm AV fistula surgery done. History of cardiac catheterization, multiple intubation. REVIEW OF SYSTEMS The patient denies any history of fever. She has some headache and dizziness off and on. There is no history of sore throat. No shortness of breath. No chest pain. No palpitation. She has this nausea, vomiting and epigastric pain going on for the last 3 to 4 days. The epigastric pain is mainly cramping in nature, comes and goes. Vomiting is mainly after eating and every time she eats she vomits, usually three to four per day. There is no blood in the vomitus. There is no history of diarrhea. SOCIAL HISTORY The patient is , lives with her . There is no history of smoking or alcoholism. FAMILY HISTORY The family history noncontributory. ALLERGIES SHE HAS IS ALLERGIC TO LYRICA. MEDICATIONS Currently she was just given: 1. Protonix. 2. Compazine. 3. Also given Nicardipine. PHYSICAL EXAMINATION GENERAL: On examination the patient is awake, alert. VITAL SIGNS: Her blood pressure is very high, the last one was 230/130. Temperature is 98.3, oxygen saturation on room air is 99%. HEENT: Pupils equally reacting to light. Nonicteric sclera, conjunctiva pale. NECK: Supple. JVD is slightly elevated. LUNGS: The patient has bilateral good air entry with occasional wheezing. HEART: S1-S2. Regular rhythm. ABDOMEN: Abdomen is soft, lax. There is no tenderness. Bowel sounds positive. There is epigastric tenderness. There is no rebound rigidity. EXTREMITIES: She has no pedal edema. INVESTIGATION The investigations are all pending, including CBC and BMP. IMAGING STUDIES The patient just went for abdominal and the pelvis CT scan. She has gastric emptying study done last month and it was negative gastroparesis. ASSESSMENT/PLAN 1. Nausea, vomiting and epigastric pain. 2. Hypertension, uncontrolled. 3. End-stage renal disease on hemodialysis. 4. History of ischemic heart disease and congestive heart failure. 5. Anemia. Patient has been missing her dialysis treatment off and on. The vomiting could be also from uremia but her BUN, creatinine is not very high in the last month or so. The labs from today are still pending. She will need to have dialysis and I already informed the dialysis and waiting for her to finish the CT scan. She is not in gross fluid overload status which is causing the hypertension. Possibly compliance has something to do with uncontrolled blood pressure. I discussed with her and she is saying that she is taking her blood pressure medicine which probably will need to be adjusted. Thank you for the consultation and I will follow the patient while she is in the hospital. Paresh Payne MD AQMichela/MELISSA /3:17 PM /4:22 PM
--- NOTE | 2016-11-24 10:09 | EKG ---
Date Performed: 11/22/2016 Time Performed: 14:45:40 PTAGE: 51 years EKG: Sinus rhythm BORDERLINE LEFT AXIS DEVIATION LEFT VENTRICULAR HYPERTROPHY AND ST-T CHANGE ABNORMAL ECG PREVIOUS TRACING : 10/22/2016 08.30 DOCTOR: Jackson Lowe Interpretating Date/Time 11/24/2016 09:53:10
[2016-12-12] MEDS ORDERED: FERR325T2 PO (06:45)
== END 2016-11-22 16:20 | disposition left against medical advice (07) ==
LOC: NEPE 13:36
DX: R11.2 Nausea with vomiting, unspecified (principal); R10.13 Epigastric pain; E87.8 Other disorders of electrolyte and fluid balance, not elsewhere classified; E11.9 Type 2 diabetes mellitus without complications; I51.7 Cardiomegaly; I12.0 Hypertensive chronic kidney disease with stage 5 chronic kidney disease or end stage renal disease; Z99.2 Dependence on renal dialysis; I25.9 Chronic ischemic heart disease, unspecified; I50.9 Heart failure, unspecified; D64.9 Anemia, unspecified; R94.31 Abnormal electrocardiogram [ECG] [EKG]; Z79.4 Long term (current) use of insulin
CPT/HCPCS: 74176; 80053; 81001; 83605; 83690; 85025; 85610; 85730; 93005; 96365; 96375; 99285; C9113; J0780; J1200; J7040; J7050

== ENCOUNTER → 2016-12-12 | Day surgery (SDC) | payer MEDICAID ==
[~2016-12-12] VITALS: Ht 172.7 cm; Wt 99.7 kg
[~2016-12-12] MED LIST changes: +*ENALAPRILAT 1.25 MG/ML VIAL PERIprocedural Use ONLY ONE; +*LABETALOL HCL 100 MG/20 ML VIAL PERIprocedural Use ONLY ONE; +ACETAMINOPHEN/HYDROcodone 325 MG/5 MG TAB PO PRN; +BUPIVACAINE/EPINEPHRINE 0.5% 50 ML VIAL ONE; +CARVEDILOL 6.25 MG TAB PO ONE; +CHLORHEXIDINE GLUCONATE 2 % 1 PACK (2 CLOTHS) TOPICAL PRN; +DO NOT ADM ANY ANTICOAGULANT DRUGS PRN; +FAMOTIDINE 20 MG/2 ML VIAL ONE; +FERR325T2 PO; +FUROSEMIDE 20 MG TAB PO ONE; +INSULIN HUMAN REGULAR 1,000 UNITS/10 ML VIAL SQ PRN; +KETAMINE HCL 500 MG/5 ML VIAL ONE; +LACTATED RINGER'S 1000 ML IV PRN; +LISINOPRIL 20 MG TAB PO ONE; +METOPROLOL TARTRATE 25 MG TAB PO PRN; +MIDAZOLAM HCL 2 MG/2 ML VIAL ONE; +MORPHINE SULFATE 4 MG/ML INJ IV PRN; -NIFE10 PO; +NIFE10CA PO; +NIFEdipine 10 MG CAP PO ONE; +ONDANSETRON HCL 4 MG/2 ML VIAL IV PUSH PRN; -OXYC-392 PO; +POVIDONE IODINE 5% (ANTISEPSIS KIT) 4 APPLICATIONS EACH NARE PRN; +PROPOFOL 200 MG/20 ML AMP IV ONE; +PROPOFOL 500 MG/50 ML BTL IV ONE; +SODIUM CHLORID 0.9% 500 ML IV PRN; +SODIUM CHLORIDE 0.9% FLUSH 10 ML FLUSH IV FLUSH PRN; +SODIUM CHLORIDE 0.9% FLUSH 10 ML FLUSH IV FLUSH SCH; -ZOFR4TAB3 SL; +ceFAZolin INJ 1,000 MG VIAL IV ONE; +cloNIDine HCL 0.1 MG TAB ONE; +cloNIDine HCL 0.1 MG TAB PO ONE; +hydrALAZINE HCL 20 MG/ML VIAL ONE
[2016-12-12 06:00] VITALS: BP 221/107; PULSE 76; RESP 18; TEMP 98.3; O2SAT 97
[2016-12-12 08:33] LABS: BASOPHIL % 0.7 % (0.0-2.0); EOSINOPHIL # 0.2 TH/MM3 (0-0.4); EOSINOPHIL % 3.8 % (0.0-4.0); HEMATOCRIT 32.8 % (35.0-46.0); HEMO FLAGS DIFF FINAL; LYMPH % 22.4 % (9.0-44.0); MEAN CELL VOLUME 73.2 FL (80.0-100.0); MEAN CORPUSCULAR HEMOGLOBIN 23.6 PG (27.0-34.0); MEAN CORPUSCULAR HGB CONC 32.3 % (32.0-36.0); MONO % 8.3 % (0.0-8.0); NEUT % 64.8 % (16.0-70.0); PLATELET COUNT 175 TH/MM3 (150-450); RED BLOOD COUNT 4.47 MIL/MM3 (4.00-5.30); RED CELL DISTRIBUTION WIDTH 19.3 % (11.6-17.2); WHITE BLOOD COUNT 4.6 TH/MM3 (4.0-11.0)
[2016-12-12 08:51] LABS: ALT (GPT) 11 U/L (10-53); ANION GAP 8 MEQ/L (5-15); AST (GOT) 9 U/L (15-37); BICARBONATE 25.8 MEQ/L (21.0-32.0); BLOOD UREA NITROGEN 24 MG/DL (7-18); CHLORIDE 110 MEQ/L (98-107); GLOMERULAR FILTRATION RATE 15 ML/MIN (>89); POTASSIUM 4.2 MEQ/L (3.5-5.1); SODIUM (NA) 144 MEQ/L (136-145)
[2016-12-12 08:53] LABS: ALKALINE PHOSPHATASE 79 U/L (45-117); TOTAL BILIRUBIN ADULT 0.3 MG/DL (0.2-1.0)
[2016-12-12 13:00] VITALS: RESP 18; O2SAT 98
[2016-12-12 13:45] VITALS: BP 179/90; PULSE 70
--- NOTE | 2016-12-13 17:16 | MP ---
cc: ADAM ESPINOZA DATE OF SURGERY: 12/11/2016 PREOPERATIVE DIAGNOSIS: Slowly maturing left upper extremity AV fistula POSTOPERATIVE DIAGNOSIS Slowly maturing left upper extremity AV fistula PROCEDURE: Left upper extremity AV fistula revision. SURGEON: Adam Espinoza MD. FLUIDS: IV fluids approximately 200 cc. ESTIMATED BLOOD LOSS: None URINE OUTPUT Not calculated. COMPLICATIONS None DISPOSITION PACU PROCEDURE The patient left upper extremity was prepped and draped in sterile fashion after I gave 1 gram of IV Ancef and placed under MAC anesthesia. I used about 3 cc of 0.25% Marcaine with epinephrine to anesthetize a few centimeters distal to the cephalic vein in the left upper extremity just above the antecubital fossa. I made a vertical incision that was less than a centimeter, abutting the left upper extremity cephalic vein. This area was a preoperatively marked with ultrasound and there was a large branch off this area. I dissected down with electrocautery and then Metzenbaum scissors used a right angle to get access around this side branch. I used two 2-0 silks and two small clips and then divided with Metzenbaum scissors. I closed in layers with 2-0 Vicryl absorbable suture and a 4-0 Monocryl with Dermabond. It should be noted that the patient tolerated procedure well. DO ELVIN Arellano/keren /9:37 AM /5:15 PM
== END | disposition home or self-care (01) ==
LOC: HSDC 05:49
PROVIDERS: ATTEND Surgery
DX: Z45.2 Encounter for adjustment and management of vascular access device (principal)
CPT/HCPCS: 01844; 36832; 76937; 80053; 85025; 86850; 86900; 86901; J0360; J0690; J2250; J3010; J7040

== ENCOUNTER 2017-01-02 08:24 | Day surgery (SDC) | payer SELFPAY ==
[~2017-01-02] VITALS: Ht 172.7 cm; Wt 95.5 kg
[~2017-01-02 08:24] MED LIST changes: -*ENALAPRILAT 1.25 MG/ML VIAL PERIprocedural Use ONLY ONE; -*LABETALOL HCL 100 MG/20 ML VIAL PERIprocedural Use ONLY ONE; -ACETAMINOPHEN/HYDROcodone 325 MG/5 MG TAB PO PRN; -BUPIVACAINE/EPINEPHRINE 0.5% 50 ML VIAL ONE; -CARVEDILOL 6.25 MG TAB PO ONE; -CHLORHEXIDINE GLUCONATE 2 % 1 PACK (2 CLOTHS) TOPICAL PRN; -DO NOT ADM ANY ANTICOAGULANT DRUGS PRN; -FAMOTIDINE 20 MG/2 ML VIAL ONE; -FUROSEMIDE 20 MG TAB PO ONE; -INSULIN HUMAN REGULAR 1,000 UNITS/10 ML VIAL SQ PRN; -KETAMINE HCL 500 MG/5 ML VIAL ONE; -LACTATED RINGER'S 1000 ML IV PRN; -LISINOPRIL 20 MG TAB PO ONE; -METOPROLOL TARTRATE 25 MG TAB PO PRN; -MIDAZOLAM HCL 2 MG/2 ML VIAL ONE; -MORPHINE SULFATE 4 MG/ML INJ IV PRN; -NIFEdipine 10 MG CAP PO ONE; -ONDANSETRON HCL 4 MG/2 ML VIAL IV PUSH PRN; -POVIDONE IODINE 5% (ANTISEPSIS KIT) 4 APPLICATIONS EACH NARE PRN; -PROPOFOL 200 MG/20 ML AMP IV ONE; -PROPOFOL 500 MG/50 ML BTL IV ONE; -SODIUM CHLORID 0.9% 500 ML IV PRN; -SODIUM CHLORIDE 0.9% FLUSH 10 ML FLUSH IV FLUSH PRN; -SODIUM CHLORIDE 0.9% FLUSH 10 ML FLUSH IV FLUSH SCH; -ceFAZolin INJ 1,000 MG VIAL IV ONE; -cloNIDine HCL 0.1 MG TAB ONE; -cloNIDine HCL 0.1 MG TAB PO ONE; -hydrALAZINE HCL 20 MG/ML VIAL ONE
[2017-01-02 08:52] VITALS: BP 151/89; PULSE 69; RESP 18; TEMP 97.8; O2SAT 99
[2017-01-02] MEDS ORDERED: SODIUM CHLORIDE 0.9% FLUSH 10 ML FLUSH IV FLUSH PRN ×2 (09:00)
[2017-01-02 09:08] LABS: AUTOMATED NEUTROPHIL # 3.7 TH/MM3 (1.8-7.7); BASOPHIL % 0.1 % (0.0-2.0); EOSINOPHIL # 0.2 TH/MM3 (0-0.4); EOSINOPHIL % 3.7 % (0.0-4.0); HEMATOCRIT 36.5 % (35.0-46.0); HEMO FLAGS DIFF FINAL; LYMPHOCYTE # 1.5 TH/MM3 (1.0-4.8); MEAN CELL VOLUME 74.4 FL (80.0-100.0); MEAN CORPUSCULAR HEMOGLOBIN 23.7 PG (27.0-34.0); MEAN CORPUSCULAR HGB CONC 31.8 % (32.0-36.0); MONO % 11.5 % (0.0-8.0); NEUT % 60.7 % (16.0-70.0); PLATELET COUNT 181 TH/MM3 (150-450); RED CELL DISTRIBUTION WIDTH 18.2 % (11.6-17.2); WHITE BLOOD COUNT 6.1 TH/MM3 (4.0-11.0)
[2017-01-02 09:19] LABS: APTT (PATIENT) 26.5 SEC (24.3-30.1); PROTHROMBIN TIME - PATIENT 10.9 SEC (9.8-11.6)
[2017-01-02 09:25] LABS: BICARBONATE 22.7 MEQ/L (21.0-32.0); POTASSIUM 4.2 MEQ/L (3.5-5.1)
[2017-01-02] MEDS ORDERED: LIDOCAINE 1%/EPINEPHrine 1:100,000 SOLN 20 ML VIAL ONE (10:43)
[2017-01-02 11:20] VITALS: BP 195/104; PULSE 76; RESP 20; TEMP 97.8; O2SAT 96
[2017-01-02] MEDS ORDERED: SODIUM CHLORIDE 0.9% FLUSH 10 ML FLUSH IVF PRN (11:30)
[2017-01-02] MEDS ORDERED: HEPARIN SODIUM - IV 2,000 UNITS/2 ML VIAL IV FLUSH PRN (11:30)
--- NOTE | 2017-01-02 11:30 | PD.RAD ---
Post Procedure Progress Note Pre Procedure Diagnosis: (1) Encounter for dialysis catheter care Post Procedure Diagnosis: (1) Encounter for dialysis catheter care Procedure Date: Jan 02, 2017 Supervising Radiologist: Jorge Ott JR Proceduralist/Assist: Veronica Goddard, RT(R)(), Katarina Stewart RT(R)() Anesthesia: Local Plan of Activity Patient to Unit: ROPU Patient Condition: Good See PACS Report for procedural detail/treatment Central Venous Access Device Procedure 1 Right Internal Jugular Hemodialysis Catheter Tunneled Exchange dual lumen Italian: 15 Findings: Poor flows thru existing Permcath. A new permcath was placed with good flows. OK to use Jr. Tru,Jorge Valencia MD Jan 02, 2017 11:30
[2017-01-02 11:35] VITALS: BP 188/105; PULSE 74; RESP 20; O2SAT 95
[2017-01-02 12:00] VITALS: BP 185/101; PULSE 72; RESP 20; O2SAT 96
--- NOTE | 2017-01-02 12:21 | RADRPT ---
EXAM DATE/TIME: 01/02/2017 10:11 INDICATIONS : Patient is in need of an exchange of existing right permacath due to slow flow. MEDICAL HISTORY : History of CVA, CHF, HTN, DM, pulmonary edema, seizures, MRSA pneumonia, respiratory failure, neuropa thy, anemia, ESRD. SURGICAL HISTORY : History of cardiac catheterization with cardiac stents, permcath placement, c-sections. ENCOUNTER: Subsequent ACUITY: 1 month PAIN SCORE: 0/10 FLUORO TIME: 0.8 minutes IMAGE SERIES: 1 CONTRAST: 5 cc Omnipaque (iohexol) 350 ACCESS: Right internal jugular vein MEDICATION(S): 1.) 4600 units Heparin catheter lock DEVICE(S): 1.) 15 Spanish dual lumen 23 cm Ames II Plus catheter PROCEDURE: CENTRAL VENOUS CATHETER REPLACEMENT, RT 1. Fluoroscopically guided central venous catheter exchange. The risks, benefits and alternatives to the procedure were explained and verbal and written consent w as obtained. The site was prepped in sterile fashion. Full sterile technique was used, including ca p, mask, sterile gloves and gown and a large sterile sheet. Hand hygiene and 2% chlorhexidine and/or betadine/alcohol prep was utilized per protocol for cutaneous antisepsis. The skin and subcutaneous tissues were infiltrated with local anesthetic solution. The heparin was aspirated from both lumens of the existing perm catheter. Fluoroscopic evaluation lay ws the tip of the PermCath very low approaching the inferior vena cava right atrial confluence. There is very poor flow through both lumens of the catheter. With fluoroscopic guidance the previously placed central venous catheter was exchanged for the prescr ibed catheter as above. Post procedure image demonstrates satisfactory position of the tube. The cath eter was sutured in place utilizing a 2-0 silk suture. The tip of the catheter was positioned appropr iately at the SVC right atrial junction. Good flows are noted through the new PermCath. CONCLUSION: Uncomplicated venous catheter change as above. The new PermCath is flowing nicely. Jorge Ott Jr., MD on January 02, 2017 at 12:17 Board Certified Radiologist. This report was verified electronically.
== END 2017-01-02 12:00 | disposition home or self-care (01) ==
LOC: HROP 08:24 → HRIP 08:25 → HROP 12:00
PROVIDERS: ATTEND Internal Medicine Nephrology
DX: T82.898A Other specified complication of vascular prosthetic devices, implants and grafts, initial encounter (principal); I13.2 Hypertensive heart and chronic kidney disease with heart failure and with stage 5 chronic kidney disease, or end stage renal disease; I50.9 Heart failure, unspecified; N18.6 End stage renal disease; E11.9 Type 2 diabetes mellitus without complications; Z95.5 Presence of coronary angioplasty implant and graft
CPT/HCPCS: 36580; 77001; 80048; 85025; 85610; 85730; C1750; C1769; J1644

== ENCOUNTER 2017-03-07 10:43 | Emergency (ER) | payer MEDICARE ==
[2017-03-07 10:46] VITALS: BP 188/91; PULSE 64; RESP 14; TEMP 97.8; O2SAT 100
--- NOTE | 2017-03-07 11:25 | PD ---
HPI Chief Complaint: Skin Problem Time Seen by Provider: 11:08 Travel History International Travel<30 days: No Contact w/Intl Traveler<30days: No Traveled to known affect area: No History of Present Illness HPI Patient comes in for evaluation of possible abscess on her right buttocks and then ongoing for approximately week. Patient tried using [id number] salve with no improvement of symptoms. Patient states it drains a little bit causing her shorts to get wet. Patient states she went to her primary care doctor, who sent her to a printer technician, who then sent to the ER. Patient states she's had something similar in the past on her arm that went away just using qqjv-pic-[id number] medication. Patient denies anything making it better feels like it is gotten progressively worse and larger. Denies any fevers. PFSH Past Medical History Hx Anticoagulant Therapy: Yes Arthritis: No Asthma: No Autoimmune Disease: No Blood Disorders: No Anxiety: No Depression: Yes Heart Rhythm Problems: No Cancer: No Cardiovascular Problems: Yes (pt doesnt know what problem is) High Cholesterol: Yes Chemotherapy: No Chest Pain: No Congestive Heart Failure: Yes COPD: No Cerebrovascular Accident: Yes Diabetes: Yes Diminished Hearing: No Endocrine: Yes GERD: Yes Genitourinary: Yes (ESRD WITH DIALYSIS t//fri) Hepatitis: No Hiatal Hernia: No Hypertension: Yes Immune Disorder: No Implanted Vascular Access Dvce: Yes Kidney Stones: No Musculoskeletal: No Neurologic: Yes Psychiatric: Yes Reproductive: No Respiratory: Yes (uses oxygen at home sometimes) Immunizations Current: No Migraines: No Radiation Therapy: No Renal Failure: Yes (d/t dye for cardiac stent insertions- DIALYSIS Q3 DAYS) Seizures: Yes Sickle Cell Disease: No Sleep Apnea: Yes (Wears CPAP ) Thyroid Disease: No Ulcer: No Menopausal: Yes : 3 Para: 3 Miscarriage: 0 Past Surgical History Abdominal Surgery: No AICD: No Arteriovenous Shunt: No Body Medical Devices: RIGHT CHEST DIALYSIS ACCESS, CARDIAC STENTS Cardiac Surgery: Yes (STENTS (2) ) Section: Yes Ear Surgery: No Endocrine Surgery: No Eye Surgery: No Genitourinary Surgery: No Gynecologic Surgery: Yes Insulin Pump: No Joint Replacement: No Oral Surgery: No Pacemaker: No Thoracic Surgery: No Other Surgery: Yes (CARDIAC CATH 2015) Social History Alcohol Use: No Tobacco Use: No Substance Use: No Allergies-Medications (Allergen,Severity, Reaction): Coded Allergies: pregabalin (Unverified Allergy, Severe, Anaphylaxis, 01/28/17) *MDRO Multi-Drug Resistant Organism (Verified Adverse Reaction, Unknown, ) MRSA (sputum)-07/20/16 MRSA PCR Screen POSITIVE - 07/18/2016 Reported Meds & Prescriptions Reported Meds & Active Scripts Active Bactrim DS (Sulfamethoxazole-Trimethoprim) 800-160 Mg Tab 1 Tab PO BID Keflex (Cephalexin) 500 Mg Cap 500 Mg PO Q8H Levemir Inj (Insulin Detemir) 1,000 unit/ 10 ML Vial 22 Units SQ Q12HR Neurontin (Gabapentin) 300 Mg Cap 300 Mg PO DAILY Reported Ferrous Sulfate DR (Ferrous Sulfate) 325 Mg Tabdr 1 Tab PO BID Lisinopril 20 Mg Tab 20 Mg PO DAILY Nifedipine 10 Mg Cap 10 Mg PO DAILY Lasix (Furosemide) 20 Mg Tab 20 Mg PO BID Omeprazole 20 Mg Tab 20 Mg PO DAILY Clonidine (Clonidine HCl) 0.1 Mg Tab 0.1 Mg PO DAILY Coreg (Carvedilol) 6.25 Mg Tab 6.25 Mg PO BID Review of Systems Except as stated in HPI: all other systems reviewed are Neg Physical Exam Narrative GENERAL: Well-developed, overly nourished, in no acute distress, and non-ill appearing. SKIN: Indurated area right buttocks scant amount of drainage there is minimal fluctuation. Minimally tender. There is no crepitus. Exam was performed presents housekeeping staff at all times. HEAD: Atraumatic. Normocephalic. EYES: Pupils equal and round. EOMI. No scleral icterus. No injection or drainage. ENT: No nasal bleeding or discharge. Mucous membranes pink and moist. NECK: Trachea midline. Supple. No nuclear rigidity. RESPIRATORY: No accessory muscle use. No respiratory distress. MUSCULOSKELETAL: No obvious deformities. No clubbing. No cyanosis. No edema. Full range of motion. NEUROLOGICAL: Awake and alert. No obvious cranial nerve deficits. Motor grossly within normal limits. Normal speech. PSYCHIATRIC: Appropriate mood and affect; insight and judgment normal. Data Data Last Documented VS Vital Signs Date Time Temp Pulse Resp B/P (MAP) Pulse Ox O2 Delivery O2 Flow Rate FiO2 03/07/17 12:03 03/07/17 10:46 97.8 64 14 100 Orders Orders Wound Culture And Gram Stain (03/07/17 11:22) Clindamycin Inj (Cleocin Inj) (03/07/17 11:30) MDM Medical Decision Making Medical Screen Exam Complete: Yes Emergency Medical Condition: Yes Differential Diagnosis Abscess, cellulitis, gangrene, other Narrative Course The patient has no evidence of significant cellulitis. There is no evidence of necrotizing fasciitis/ [place] at this time. The patient will be discharged on antibiotics. The patient was given signs and symptoms warnings for worsening infection, such as spreading of redness, increasing pain, and/or swelling, associated heat, or fever or feels worse, and instructed to return immediately if these signs or symptoms worsen. The patient is to return in 2 days for recheck. Sooner if worsens or as needed. The patient agrees with plan. Patient in no obvious distress upon re-evaluation. Patient was asked if they wanted to speak to my attending, which the patient did not wish to do at this time. Any questions/concerns in reference to patient diagnosis/condition discussed and clarified prior to patient's discharge. Reinforced sheer importance of close follow up here in 2 days for recheck. Instructed patient to return to ED immediately, if symptoms return/worsen. Patient showed understanding of above instructions. Further instructions and recommendations were detailed in discharge paperwork. Patient ambulated without difficulty out of ED at discharge. Procedures Procedure Narrative INCISION AND DRAINAGE OF ABSCESS: Verbal consent was obtained. The area was prepped. A subcutaneous wheal of 1% Xylocaine without epi with a total number 2 mL was used to anesthetize the area. The area was properly anesthetized. A number 11 scalpel was used to make a 1-cm incision across the area of the abscess. The abscess was drained. Quarter inch iodoform packing was placed in the wound. Sterile dressing applied by nurse. Patient tolerated procedure well. Patient advised to return here in 2 days to have packing removed and wound rechecked. Patient verbalized understanding. Diagnosis Primary Impression: Abscess Patient Instructions: Abscess (ED), Abscess Incision and Drainage (DC), General Instructions, Sitz Bath (DC) Additional Instructions: Follow-up here 2 days for recheck. Take all medication as prescribed. Apply warm compresses and do sitz baths to promote drainage. Return to the emergency department if symptoms get worse. Med/Other Pt SpecificInfo: Prescription(s) given Scripts Sulfamethoxazole-Trimethoprim (Bactrim DS) 800-160 Mg Tab 1 TAB PO BID for Infection, #20 TAB 0 Refills Prov: Emily Suero MD 03/07/17 Cephalexin (Keflex) 500 Mg Cap 500 MG PO Q8H for Infection, #30 CAP 0 Refills Prov: Emily Suero MD 03/07/17 Disposition: 01 DISCHARGE HOME Condition: Stable Ezra Goddard Mar 07, 2017 11:25
[2017-03-07] MEDS ORDERED: CLINDAMYCIN PHOS 600 MG/4 ML VIAL IM ONE (11:30)
[2017-03-07] MEDS ORDERED: BACT800T5 PO (11:37)
[2017-03-07] MEDS ORDERED: CEPH-460 PO (11:37)
[2017-03-07] MEDS ORDERED: LIDOCAINE HCL 1% 20 ML VIAL INFIL ONE (13:30)
== END 2017-03-07 12:21 | disposition home or self-care (01) ==
LOC: NEPK 10:43
DX: L02.31 Cutaneous abscess of buttock (principal); B95.62 Methicillin resistant Staphylococcus aureus infection as the cause of diseases classified elsewhere
CPT/HCPCS: 10061; 86403; 87070; 87186; 96372

== ENCOUNTER 2017-03-09 10:04 | Emergency (ER) | payer OTHER, MEDICARE ==
[~2017-03-09] VITALS: Ht 172.7 cm; Wt 105.0 kg
[~2017-03-09 10:04] MED LIST changes: +BACT800T5 PO; +CEPH-460 PO
[2017-03-09 10:05] VITALS: BP 183/84; PULSE 64; RESP 20; TEMP 98.4; O2SAT 98
--- NOTE | 2017-03-09 11:20 | PD ---
HPI . right buttocks abscess Chief Complaint: Wound/Suture/Staple Re-Check Time Seen by Provider: 11:19 Travel History International Travel<30 days: No Contact w/Intl Traveler<30days: No Traveled to known affect area: No History of Present Illness HPI 51 yr old female here for recheck to a right buttocks abscess. Patient was here 2 days ago had incision and drainage with packing. She is here to have the packing removed. She is taking her medications as prescribed. Her wound culture is back and positive for MRSA. She denies any fever or chills. She tells me that she saw branch coordinator and nothing was done about her wound. She has a follow-up appointment tomorrow. PFSH Past Medical History Hx Anticoagulant Therapy: Yes Arthritis: No Asthma: No Autoimmune Disease: No Blood Disorders: No Anxiety: No Depression: Yes Heart Rhythm Problems: No Cancer: No Cardiovascular Problems: Yes (pt doesnt know what problem is) High Cholesterol: Yes Chemotherapy: No Chest Pain: No Congestive Heart Failure: Yes COPD: No Cerebrovascular Accident: Yes Diabetes: Yes Diminished Hearing: No Endocrine: Yes GERD: Yes Genitourinary: Yes (ESRD WITH DIALYSIS t//fri) Hepatitis: No Hiatal Hernia: No Hypertension: Yes Immune Disorder: No Implanted Vascular Access Dvce: Yes Kidney Stones: No Musculoskeletal: No Neurologic: Yes Psychiatric: Yes Reproductive: No Respiratory: Yes (uses oxygen at home sometimes) Immunizations Current: No Migraines: No Radiation Therapy: No Renal Failure: Yes (d/t dye for cardiac stent insertions- DIALYSIS Q3 DAYS) Seizures: Yes Sickle Cell Disease: No Sleep Apnea: Yes (Wears CPAP ) Thyroid Disease: No Ulcer: No Menopausal: Yes : 3 Para: 3 Miscarriage: 0 Past Surgical History Abdominal Surgery: No AICD: No Arteriovenous Shunt: No Body Medical Devices: RIGHT CHEST DIALYSIS ACCESS, CARDIAC STENTS Cardiac Surgery: Yes (STENTS (2) ) Section: Yes Ear Surgery: No Endocrine Surgery: No Eye Surgery: No Genitourinary Surgery: No Gynecologic Surgery: Yes Insulin Pump: No Joint Replacement: No Oral Surgery: No Pacemaker: No Thoracic Surgery: No Other Surgery: Yes (CARDIAC CATH 2015) Social History Alcohol Use: No Tobacco Use: No Substance Use: No Allergies-Medications (Allergen,Severity, Reaction): Coded Allergies: pregabalin (Unverified Allergy, Severe, Anaphylaxis, 03/09/17) *MDRO Multi-Drug Resistant Organism (Verified Adverse Reaction, Unknown, ) MRSA (sputum)-07/20/16 MRSA PCR Screen POSITIVE - 07/18/2016 Reported Meds & Prescriptions Reported Meds & Active Scripts Active Bactrim DS (Sulfamethoxazole-Trimethoprim) 800-160 Mg Tab 1 Tab PO BID Keflex (Cephalexin) 500 Mg Cap 500 Mg PO Q8H Levemir Inj (Insulin Detemir) 1,000 unit/ 10 ML Vial 22 Units SQ Q12HR Neurontin (Gabapentin) 300 Mg Cap 300 Mg PO DAILY Reported Ferrous Sulfate DR (Ferrous Sulfate) 325 Mg Tabdr 1 Tab PO BID Lisinopril 20 Mg Tab 20 Mg PO DAILY Nifedipine 10 Mg Cap 10 Mg PO DAILY Lasix (Furosemide) 20 Mg Tab 20 Mg PO BID Omeprazole 20 Mg Tab 20 Mg PO DAILY Clonidine (Clonidine HCl) 0.1 Mg Tab 0.1 Mg PO DAILY Coreg (Carvedilol) 6.25 Mg Tab 6.25 Mg PO BID Review of Systems General / Constitutional: No: Fever Eyes: No: Visual changes HENT: No: Headaches Cardiovascular: No: Chest Pain or Discomfort Respiratory: No: Shortness of Breath Gastrointestinal: No: Abdominal Pain Genitourinary: No: Dysuria Musculoskeletal: No: Pain Skin: Positive Other (right buttocks abscess ), No Rash Neurologic: No: Weakness Psychiatric: No: Depression Endocrine: No: Polydipsia Hematologic/Lymphatic: No: Easy Bruising Physical Exam Narrative GENERAL: AAO x 3, no acute distress, Well-nourished, well-developed patient. SKIN: Warm and dry. No visible rashes or bruising. right buttocks abscess with minimal drainage; HEAD: Normocephalic and atraumatic. EYES: No scleral icterus. No injection or drainage. ENT: No nasal drainage noted. Mucous membranes pink. Airway patent. NECK: Supple, trachea midline. No JVD. CARDIOVASCULAR: Regular rate and rhythm without murmurs, gallops, or rubs. RESPIRATORY: Breath sounds equal bilaterally. No accessory muscle use. No rhonchi or rales. GASTROINTESTINAL: Abdomen soft, non-tender, nondistended. EXTREMITIES: No cyanosis or edema. BACK: No obvious deformity. NEURO: CN II-12 intact, PSYCH: AAO x 3, normal affect. Data Data Last Documented VS Vital Signs Date Time Temp Pulse Resp B/P (MAP) Pulse Ox O2 Delivery O2 Flow Rate FiO2 03/09/17 10:05 98.4 64 20 183/84 (117) 98 Room Air Orders Orders Lidocaine 1% Inj (50 Ml) (Xylocaine 1% I (03/09/17 11:45) MDM Medical Decision Making Medical Screen Exam Complete: Yes Emergency Medical Condition: Yes Medical Record Reviewed: Yes Differential Diagnosis abscess, MRSA infection, cellulitis Narrative Course 51 yr old female here with the right buttocks abscess. Wound cultures positive for MRSA. The wound was packed. Removal of packing demonstrated a draining abscess. I decided to open the area little bit bigger and placed some additional packing. Patient gave verbal consent to this. The wound was irrigated and dressed with a sterile dressing. I advised her to have a wound check within the next 48 hours. Ironically, she has a dermatology appointment tomorrow. I've advised her to keep this appointment. Recommend follow-up to primary care provider. I recommend continuation of antibiotics. I stressed the importance of f/u regarding this wound. I even recommended general surgery consult as she may need some additional care to this area. She is diabetic and also on dialysis. Her healing time is delayed secondary to these comorbidities. I reiterated this to the patient and recommended close follow-up. Patient verbalized understanding of instructions, questions were answered, and thanked me for their care. I advised them if their condition worsens, please return to the nearest emergency room for further care. Procedures Procedure Narrative After the risks and benefits were discussed the following procedure was performed: Right buttocks INCISION AND DRAINAGE OF ABSCESS: The area was prepped and was sterilely draped. A subcutaneous wheal of 1% % Xylocaine with a total number 3 mL was used to anesthetize the area. The area was properly anesthetized. A number 11 scalpel was used to open the smaller incision larger to 1 cm. The abscess was drained an irrigated with normal saline. Quarter inch iodoform packing was placed in the wound. Sterile dressing applied. Patient advised to have packing removed in two days. Diagnosis Primary Impression: Abscess Referrals: Anyi Leary MD, Eric M. DPM McNish, Karla A. MD General Surgeon Patient Instructions: General Instructions Additional Instructions: Please see a health support specialist regarding this wound. I have recommended the name of a few or the doctors locally who can assist with this. Follow up with the branch coordinator as we discussed. Rest, hydrate. Do not change the dressing unless it becomes wet or soiled until wound recheck in 48 hours. You may bathe normally. Do not submerge the wound. Take the antibiotics as they are prescribed, even if your symptoms resolve during the course of treatment. Utilize [id number] pain medications, as described on the label, as needed. Return to the ED in 48 hours for packing removal and wound recheck or follow up with the branch coordinator or wound care doctors we discussed. Follow-up with your primary care provider this week. Return to the ED for any urgent or emergent medical condition. Med/Other Pt SpecificInfo: No Change to Meds Disposition: 01 DISCHARGE HOME Condition: Stable Meghan Charles Mar 09, 2017 11:20
[2017-03-09] MEDS ORDERED: LIDOCAINE HCL 1% 50 ML VIAL INFIL ONE (11:45)
== END 2017-03-09 12:15 | disposition home or self-care (01) ==
LOC: NEPK 10:04
DX: L02.31 Cutaneous abscess of buttock (principal); B95.62 Methicillin resistant Staphylococcus aureus infection as the cause of diseases classified elsewhere; E11.22 Type 2 diabetes mellitus with diabetic chronic kidney disease; I13.2 Hypertensive heart and chronic kidney disease with heart failure and with stage 5 chronic kidney disease, or end stage renal disease; I50.9 Heart failure, unspecified; N18.6 End stage renal disease; Z79.4 Long term (current) use of insulin; Z99.2 Dependence on renal dialysis
CPT/HCPCS: 10061

== ENCOUNTER 2017-03-11 09:58 | Emergency (ER) | payer MEDICARE ==
[~2017-03-11] VITALS: Ht 172.7 cm; Wt 100.0 kg
[2017-03-11 09:59] VITALS: BP 183/87; PULSE 64; RESP 15; TEMP 98.4; O2SAT 99
--- NOTE | 2017-03-11 10:18 | PD ---
HPI Chief Complaint: Skin Problem Time Seen by Provider: 10:06 Travel History International Travel<30 days: No Contact w/Intl Traveler<30days: No Traveled to known affect area: No History of Present Illness HPI 51-year-old female returns for wound check from recent I&D of an abscess to the right buttock. Patient has been seen twice for this in the past 5 days. Patient is currently taking antibiotics and feels that it is improving. This patient is a patient of Dr. Ward. She denies fever, chills , or significant pain. Patient has a history of MRSA. She is allergic to Lyrica. PFSH Past Medical History Hx Anticoagulant Therapy: Yes Arthritis: No Asthma: No Autoimmune Disease: No Blood Disorders: No Anxiety: No Depression: Yes Heart Rhythm Problems: No Cancer: No Cardiovascular Problems: Yes (pt doesnt know what problem is) High Cholesterol: Yes Chemotherapy: No Chest Pain: No Congestive Heart Failure: Yes COPD: No Cerebrovascular Accident: Yes Diabetes: Yes Diminished Hearing: No Endocrine: Yes GERD: Yes Genitourinary: Yes (ESRD WITH DIALYSIS t//fri) Hepatitis: No Hiatal Hernia: No Hypertension: Yes Immune Disorder: No Implanted Vascular Access Dvce: Yes Kidney Stones: No Musculoskeletal: No Neurologic: Yes Psychiatric: Yes Reproductive: No Respiratory: Yes (uses oxygen at home sometimes) Immunizations Current: No Migraines: No Radiation Therapy: No Renal Failure: Yes (d/t dye for cardiac stent insertions- DIALYSIS Q3 DAYS) Seizures: Yes Sickle Cell Disease: No Sleep Apnea: Yes (Wears CPAP ) Thyroid Disease: No Ulcer: No Menopausal: Yes : 3 Para: 3 Miscarriage: 0 Past Surgical History Abdominal Surgery: No AICD: No Arteriovenous Shunt: No Body Medical Devices: RIGHT CHEST DIALYSIS ACCESS, CARDIAC STENTS Cardiac Surgery: Yes (STENTS (2) ) Section: Yes Ear Surgery: No Endocrine Surgery: No Eye Surgery: No Genitourinary Surgery: No Gynecologic Surgery: Yes Insulin Pump: No Joint Replacement: No Oral Surgery: No Pacemaker: No Thoracic Surgery: No Other Surgery: Yes (CARDIAC CATH 2015) Social History Alcohol Use: No Tobacco Use: No Substance Use: No Allergies-Medications (Allergen,Severity, Reaction): Coded Allergies: pregabalin (Unverified Allergy, Severe, Anaphylaxis, 03/09/17) *MDRO Multi-Drug Resistant Organism (Verified Adverse Reaction, Unknown, ) MRSA (sputum)-07/20/16 MRSA PCR Screen POSITIVE - 07/18/2016 Reported Meds & Prescriptions Reported Meds & Active Scripts Active Bactrim DS (Sulfamethoxazole-Trimethoprim) 800-160 Mg Tab 1 Tab PO BID Keflex (Cephalexin) 500 Mg Cap 500 Mg PO Q8H Levemir Inj (Insulin Detemir) 1,000 unit/ 10 ML Vial 22 Units SQ Q12HR Neurontin (Gabapentin) 300 Mg Cap 300 Mg PO DAILY Reported Ferrous Sulfate DR (Ferrous Sulfate) 325 Mg Tabdr 1 Tab PO BID Lisinopril 20 Mg Tab 20 Mg PO DAILY Nifedipine 10 Mg Cap 10 Mg PO DAILY Lasix (Furosemide) 20 Mg Tab 20 Mg PO BID Omeprazole 20 Mg Tab 20 Mg PO DAILY Clonidine (Clonidine HCl) 0.1 Mg Tab 0.1 Mg PO DAILY Coreg (Carvedilol) 6.25 Mg Tab 6.25 Mg PO BID Review of Systems Except as stated in HPI: all other systems reviewed are Neg General / Constitutional: No: Fever Eyes: No: Visual changes HENT: No: Headaches Cardiovascular: No: Chest Pain or Discomfort Respiratory: No: Shortness of Breath Gastrointestinal: No: Abdominal Pain Genitourinary: No: Dysuria Musculoskeletal: No: Pain Skin: Positive Lesions (see history of present illness), No Rash Neurologic: No: Weakness Psychiatric: No: Depression Endocrine: No: Polydipsia Hematologic/Lymphatic: No: Easy Bruising Physical Exam Narrative GENERAL: Patient appears in no acute distress. SKIN: Warm and dry. Normal color. Normal turgor. Patient has an apparent healing abscess to the right buttock with serous drainage, without increased erythema or significant pain. The area is still indurated but I do not feel like she has retained abscess at this time. HEAD: Atraumatic. Normocephalic. EYES: Pupils equal and round. No scleral icterus. No injection or drainage. ENT: No nasal bleeding or discharge. Mucous membranes pink and moist. Pharynx is clear. Airway is patent. NECK: Trachea midline. No JVD. CARDIOVASCULAR: Regular rate and rhythm. RESPIRATORY: No accessory muscle use. Clear to auscultation. Breath sounds equal bilaterally. MUSCULOSKELETAL: Extremities without clubbing, cyanosis, or edema. No obvious deformities. NEUROLOGICAL: Awake and alert. No obvious cranial nerve deficits. Motor grossly within normal limits. Five out of 5 muscle strength in the arms and legs. Normal speech. PSYCHIATRIC: Appropriate mood and affect; insight and judgment normal. Data Data Last Documented VS Vital Signs Date Time Temp Pulse Resp B/P (MAP) Pulse Ox O2 Delivery O2 Flow Rate FiO2 03/11/17 09:59 98.4 64 15 183/87 (119) 99 MDM Medical Decision Making Medical Screen Exam Complete: Yes Emergency Medical Condition: Yes Medical Record Reviewed: Yes Differential Diagnosis Abscess. MRSA. Wound check. Narrative Course Wound appears to be healing well. Patient is to continue her antibiotics as previously prescribed. Wound care is to continue as discussed. Patient is to follow with Dr. Ward in the next several days to ensure continued improvement. Referral to general surgeon still may be worthwhile, but will be determined by Dr. Ward Patient can return to emergency room at any time for worsening symptoms. Diagnosis Primary Impression: Wound check, abscess Referrals: Primary Care Physician call for appointment Patient Instructions: Abscess Follow-up (ED), General Instructions Additional Instructions: Wound appears to be healing well. Patient is to continue her antibiotics as previously prescribed. Wound care is to continue as discussed. Patient is to follow with Dr. Ward in the next several days to ensure continued improvement. Referral to general surgeon still may be worthwhile, but will be determined by Dr. Ward Patient can return to emergency room at any time for worsening symptoms. Med/Other Pt SpecificInfo: No Change to Meds Disposition: 01 DISCHARGE HOME Condition: Stable Brody Quinteros Mar 11, 2017 10:18
== END 2017-03-11 10:22 | disposition home or self-care (01) ==
LOC: NEPK 09:58
DX: Z48.01 Encounter for change or removal of surgical wound dressing (principal)
CPT/HCPCS: 99281

== ENCOUNTER 2017-03-30 08:07 | Emergency (ER) | payer MEDICARE ==
[2017-03-30 08:08] VITALS: BP 130/64; PULSE 62; RESP 17; TEMP 98.8; O2SAT 95
--- NOTE | 2017-03-30 09:31 | PD ---
HPI Chief Complaint: Pain: Acute or Chronic Time Seen by Provider: 09:11 Travel History International Travel<30 days: No Contact w/Intl Traveler<30days: No Traveled to known affect area: No History of Present Illness HPI 51-year-old female presents emergency Department with complaint of left anterior thigh pain and swelling 1 week. Says she's had similar symptoms in the past and resolved on its own but this time it worse and has not resolved. Denies injury. Denies paresthesias, loss of sensation, decreased range of motion to the affected extremity. Denies redness or bruising to the area. Denies fever, vomiting. Denies history of DVT. Denies anticoagulant therapy. Patient is ambulatory and says pain is aggravated with movement, palpation and ambulation. Symptoms are moderate in severity. Describes pain as a burning sensation. Has been taking ibuprofen with minimal symptom relief. He is not tried any other treatments to alleviate her symptoms. Allergies to Lyrica. Dr. Ward is primary care provider. Has no other medical complaints. No other modifying factors or associated signs and symptoms. PFSH Past Medical History Hx Anticoagulant Therapy: Yes Arthritis: No Asthma: No Autoimmune Disease: No Blood Disorders: No Anxiety: No Depression: Yes Heart Rhythm Problems: No Cancer: No Cardiovascular Problems: Yes (pt doesnt know what problem is) High Cholesterol: Yes Chemotherapy: No Chest Pain: No Congestive Heart Failure: Yes COPD: No Cerebrovascular Accident: Yes Diabetes: Yes Diminished Hearing: No Endocrine: Yes GERD: Yes Genitourinary: Yes (ESRD WITH DIALYSIS t//fri) Hepatitis: No Hiatal Hernia: No Hypertension: Yes Immune Disorder: No Implanted Vascular Access Dvce: Yes Kidney Stones: No Musculoskeletal: No Neurologic: Yes Psychiatric: Yes Reproductive: No Respiratory: Yes (uses oxygen at home sometimes) Immunizations Current: No Migraines: No Radiation Therapy: No Renal Failure: Yes (d/t dye for cardiac stent insertions- DIALYSIS Q3 DAYS) Seizures: Yes Sickle Cell Disease: No Sleep Apnea: Yes (Wears CPAP ) Thyroid Disease: No Ulcer: No Menopausal: Yes : 3 Para: 3 Miscarriage: 0 Past Surgical History Abdominal Surgery: No AICD: No Arteriovenous Shunt: No Body Medical Devices: RIGHT CHEST DIALYSIS ACCESS, CARDIAC STENTS Cardiac Surgery: Yes (STENTS (2) ) Section: Yes Ear Surgery: No Endocrine Surgery: No Eye Surgery: No Genitourinary Surgery: No Gynecologic Surgery: Yes Insulin Pump: No Joint Replacement: No Oral Surgery: No Pacemaker: No Thoracic Surgery: No Other Surgery: Yes (CARDIAC CATH 2015) Social History Alcohol Use: No Tobacco Use: No Substance Use: No Allergies-Medications (Allergen,Severity, Reaction): Coded Allergies: pregabalin (Verified Allergy, Severe, Anaphylaxis, 03/11/17) *MDRO Multi-Drug Resistant Organism (Verified Adverse Reaction, Unknown, ) MRSA (sputum)-07/20/16 MRSA PCR Screen POSITIVE - 07/18/2016 Reported Meds & Prescriptions Reported Meds & Active Scripts Active Lortab (Hydrocodone-Acetaminophen) 5-325 Mg Tab 1 Tab PO Q6H PRN Bactrim DS (Sulfamethoxazole-Trimethoprim) 800-160 Mg Tab 1 Tab PO BID Keflex (Cephalexin) 500 Mg Cap 500 Mg PO Q8H Levemir Inj (Insulin Detemir) 1,000 unit/ 10 ML Vial 22 Units SQ Q12HR Neurontin (Gabapentin) 300 Mg Cap 300 Mg PO DAILY Reported Ferrous Sulfate DR (Ferrous Sulfate) 325 Mg Tabdr 1 Tab PO BID Lisinopril 20 Mg Tab 20 Mg PO DAILY Nifedipine 10 Mg Cap 10 Mg PO DAILY Lasix (Furosemide) 20 Mg Tab 20 Mg PO BID Omeprazole 20 Mg Tab 20 Mg PO DAILY Clonidine (Clonidine HCl) 0.1 Mg Tab 0.1 Mg PO DAILY Coreg (Carvedilol) 6.25 Mg Tab 6.25 Mg PO BID Review of Systems Except as stated in HPI: all other systems reviewed are Neg Physical Exam Narrative GENERAL: Well-nourished, well-developed female patient, in no acute distress SKIN: Warm and dry. Anterior left eye is edematous and without erythema, ecchymosis; with tenderness to touch and is firm to touch. Left lower extremity is supple and non-tense. 2+ pedal pulse and sensory intact; with full range of motion and strength. HEAD: Atraumatic. Normocephalic. EYES: Pupils equal and round. No scleral icterus. No injection or drainage. ENT: Mucosa pink and moist. Airway patent. NECK: Trachea midline. CARDIOVASCULAR: Regular rate. 3+ radial pulses. RESPIRATORY: No accessory muscle use. GASTROINTESTINAL: Obese. MUSCULOSKELETAL: No obvious deformities. No clubbing. No cyanosis. No edema. NEUROLOGICAL: Awake and alert. Oriented 3. No obvious cranial nerve deficits. Motor grossly within normal limits. Normal speech. PSYCHIATRIC: Appropriate mood and affect; insight and judgment normal. Data Data Last Documented VS Vital Signs Date Time Temp Pulse Resp B/P (MAP) Pulse Ox O2 Delivery O2 Flow Rate FiO2 03/30/17 10:49 03/30/17 09:52 16 03/30/17 08:08 98.8 62 95 Orders Orders Femur (Ap & Lat/2vws) (03/30/17 09:31) Us Leg Venous Doppler (03/30/17 ) Acetamin-Hydrocod 325-5 Mg ([place] 5-325 (03/30/17 09:45) Ed Discharge Order (03/30/17 10:40) [facility] Medical Decision Making Medical Screen Exam Complete: Yes Emergency Medical Condition: Yes Medical Record Reviewed: Yes Differential Diagnosis Leg pain, leg contusion, hematoma, cyst Narrative Course 51-year-old female with left thigh pain and swelling 1 week. Has history of similar symptoms which resolved on its own. Denies injury. There is no erythema or ecchymosis to the area. The left lower extremity supple nontender. 2+ pupils and sensory intact with full range motion and strength. Left femur x-ray and left leg venous ultrasound ordered. Lortab administered in the ER. 1036: Left femur x-ray with no acute findings and left leg venous ultrasound conclude No evidence of DVT. X-ray and ultrasound reports discussed with the patient. Instructed patient to follow up with primary care provider. Patient verbalizes understanding and agreement with treatment plan. Patient is medically cleared and stable for discharge. Discussed reasons to return to the emergency department. Patient agrees with treatment plan. The patients vital signs are stable and the patient is stable for outpatient follow-up and treatment. Patient discharged home, stable and in no acute distress. Diagnosis Primary Impression: Left thigh pain Referrals: Primary Care Physician Patient Instructions: General Instructions, Leg Edema (ED), Leg Pain (ED) Additional Instructions: Tylenol or ibuprofen as directed and as needed for pain Heating pad and/or ice to affected area to reduce pain Avoid aggravating activities; increase activity as tolerated Follow-up with primary care provider Return to emergency department immediately with worsening of symptoms Med/Other Pt SpecificInfo: Prescription(s) given Scripts Hydrocodone-Acetaminophen (Lortab) 5-325 Mg Tab 1 TAB PO Q6H Y for PAIN, #10 TAB 0 Refills Prov: Faith Veliz 03/30/17 Disposition: 01 DISCHARGE HOME Condition: Stable Faith Veliz Mar 30, 2017 09:31
[2017-03-30] MEDS ORDERED: ACETAMINOPHEN/HYDROcodone 325 MG/5 MG TAB PO ONE (09:45)
--- NOTE | 2017-03-30 10:06 | RADRPT ---
EXAM DATE/TIME: 03/30/2017 09:43 [facility] COMPARISON: No previous studies available for comparison. INDICATIONS : Left leg pain. MEDICAL HISTORY : Congestive heart failure. Hypercholesterolemia. Hypertension. Abdominal pain. Renal failure. Diabetes . Gait problems. Anxiety. MRSA. SURGICAL HISTORY : Coronary artery stent. section. Blood transfusions. ENCOUNTER: Initial ACUITY: 1 week PAIN SCORE: 8/10 LOCATION: Left leg. TECHNIQUE: Venous ultrasound of the leg was performed from the inguinal ligament to the proximal calf. Real-darrel e, color Doppler and spectral tracing, compression and augmentation techniques were used. FINDINGS: There is normal compressibility of the deep venous system from the inguinal region to the proximal ca lf. No echogenic clot is seen in the lumen of the common femoral, femoral, popliteal, and posterior tibial veins. There is a normal response of the venous system to proximal and distal augmentation an d respiration. There is some nonspecific edema in the subcutaneous soft tissues of the lower leg. CONCLUSION: No evidence of DVT. Fer Villarreal MD on March 30, 2017 at 10:04 Board Certified Radiologist. This report was verified electronically.
--- NOTE | 2017-03-30 10:24 | RADRPT ---
EXAM DATE/TIME: 03/30/2017 10:04 [facility] COMPARISON: No previous studies available for comparison. INDICATIONS : Pain anterior distal left femur, denies injury MEDICAL HISTORY : Congestive heart failure. Hypercholesterolemia. Hypertension. Abdominal pain. Renal failure. Diabetes . Gait problems. Anxiety. MRSA. SURGICAL HISTORY : Coronary artery stent. section. Blood transfusions. ENCOUNTER: Initial ACUITY: 1 week PAIN SCORE: 9/10 LOCATION: Left Femur FINDINGS: Two view examination of the left femur demonstrates no evidence of fracture or dislocation. Bony min eralization is normal. The soft tissue structures are intact. CONCLUSION: No acute fracture or joint dislocation. Unremarkable exam. Fer Villarreal MD on March 30, 2017 at 10:22 Board Certified Radiologist. This report was verified electronically.
[2017-03-30] MEDS ORDERED: HYDR-3533 PO (10:45)
== END 2017-03-30 10:50 | disposition home or self-care (01) ==
LOC: NEPD 08:07
DX: M79.652 Pain in left thigh (principal)
CPT/HCPCS: 73552; 93971; 99284

== ENCOUNTER 2017-05-13 18:24 | Emergency (ER) | payer OTHER, MEDICARE ==
[~2017-05-13 18:24] MED LIST changes: +HYDR-3533 PO; -OMEP20TA PO; +OMEP20TA93 PO
[2017-05-13 18:27] VITALS: BP 217/108; PULSE 65; RESP 18; TEMP 98.5; O2SAT 99
--- NOTE | 2017-05-13 19:09 | RADRPT ---
EXAM DATE/TIME: 05/13/2017 18:54 [facility] COMPARISON: No previous studies available for comparison. INDICATIONS : Chest pain, shortness of breath. MEDICAL HISTORY : Hypertension. Diabetes mellitus type II. SURGICAL HISTORY : Coronary artery stent. ENCOUNTER: Initial ACUITY: 2 days PAIN SCORE: 3/10 LOCATION: Bilateral chest FINDINGS: PA and lateral views of the chest demonstrate the lungs to be symmetrically aerated without evidence of mass, infiltrate or effusion. Heart mildly enlarged. The cardiomediastinal contours are unremarka ble. Osseous structures are intact. CONCLUSION: Mild cardiomegaly. No acute disease. Dylon Haley MD on May 13, 2017 at 19:07 Board Certified Radiologist. This report was verified electronically.
--- NOTE | 2017-05-13 19:16 | PD ---
HPI Chief Complaint: Respiratory Symptoms Time Seen by Provider: 19:13 Travel History International Travel<30 days: No Contact w/Intl Traveler<30days: No Traveled to known affect area: No History of Present Illness HPI 51 YO F with PMH of DM, ESRD, on dialysis Fri followed by Dr. Medley presents to the ED for evaluation of intermittent SOB since yesterday. The patient denies fevers, chills, cough, chest pain, palpitations, abdominal pain, nausea, vomiting, dysuria, lower extremity edema. She thinks that her symptoms might be caused by anxiety. She also states that she got out of bed around 5: 00 this morning and shortly after noticed that there was blood on her foot. She states that there is a laceration on the toe of the foot. She says she doesn't have any pain in the area which she thinks is secondary to diabetic neuropathy. She states last tetanus immunization was "about a year ago." She does not have a marine radio installer and servicer. PFSH Past Medical History Hx Anticoagulant Therapy: Yes Arthritis: No Asthma: No Autoimmune Disease: No Blood Disorders: No Anxiety: No Depression: Yes Heart Rhythm Problems: No Cancer: No Cardiovascular Problems: Yes (HTN) High Cholesterol: Yes Chemotherapy: No Chest Pain: No Congestive Heart Failure: Yes COPD: No Cerebrovascular Accident: Yes Diabetes: Yes Diminished Hearing: No Endocrine: Yes GERD: Yes Genitourinary: Yes (ESRD WITH DIALYSIS //fri) Hepatitis: No Hiatal Hernia: No Hypertension: Yes Immune Disorder: No Implanted Vascular Access Dvce: Yes Kidney Stones: No Musculoskeletal: No Neurologic: Yes Psychiatric: Yes Reproductive: No Respiratory: Yes Immunizations Current: No Migraines: No Radiation Therapy: No Renal Failure: Yes (d/t dye for cardiac stent insertions- DIALYSIS Q3 DAYS) Seizures: Yes Sickle Cell Disease: No Sleep Apnea: Yes (Wears CPAP ) Thyroid Disease: No Ulcer: No Menopausal: Yes : 3 Para: 3 Miscarriage: 0 Past Surgical History Abdominal Surgery: No AICD: No Arteriovenous Shunt: No Body Medical Devices: RIGHT CHEST DIALYSIS ACCESS, CARDIAC STENTS Cardiac Surgery: Yes (STENTS (2) ) Section: Yes Ear Surgery: No Endocrine Surgery: No Eye Surgery: No Genitourinary Surgery: No Gynecologic Surgery: Yes Insulin Pump: No Joint Replacement: No Oral Surgery: No Pacemaker: No Thoracic Surgery: No Other Surgery: Yes (CARDIAC CATH 2016) Social History Alcohol Use: No Tobacco Use: No Substance Use: No Allergies-Medications (Allergen,Severity, Reaction): Coded Allergies: pregabalin (Verified Allergy, Severe, Anaphylaxis, 03/11/17) *MDRO Multi-Drug Resistant Organism (Verified Adverse Reaction, Unknown, ) MRSA (sputum)-07/20/16 MRSA PCR Screen POSITIVE - 07/18/2016 Reported Meds & Prescriptions Reported Meds & Active Scripts Active Clindamycin (Clindamycin HCl) 300 Mg Cap 300 Mg PO Q6H 10 Days Levemir Inj (Insulin Detemir) 1,000 unit/ 10 ML Vial 22 Units SQ Q12HR Neurontin (Gabapentin) 300 Mg Cap 300 Mg PO DAILY Reported Ferrous Sulfate DR (Ferrous Sulfate) 325 Mg Tabdr 1 Tab PO BID Lisinopril 20 Mg Tab 20 Mg PO DAILY Nifedipine 10 Mg Cap 10 Mg PO DAILY Lasix (Furosemide) 20 Mg Tab 20 Mg PO BID Omeprazole 20 Mg Tab 20 Mg PO DAILY Clonidine (Clonidine HCl) 0.1 Mg Tab 0.1 Mg PO DAILY Coreg (Carvedilol) 6.25 Mg Tab 6.25 Mg PO BID Review of Systems Except as stated in HPI: all other systems reviewed are Neg Physical Exam Narrative GENERAL: Well-nourished, well-developed further white female in no acute distress. SKIN: Focused skin assessment warm/dry. HEAD: Normocephalic. EYES: No scleral icterus. No injection or drainage. NECK: Supple, trachea midline. No JVD or lymphadenopathy. CARDIOVASCULAR: Regular rate and rhythm without murmurs, gallops, or rubs. RESPIRATORY: Breath sounds clear and equal bilaterally. No accessory muscle use. GASTROINTESTINAL: Abdomen soft, non-tender, nondistended. No fluid wave. Active bowel sounds. MUSCULOSKELETAL: No cyanosis, or edema. FOCUSED RIGHT LOWER EXTREMITY EXAM: 2+ DP pulse. There is a laceration on the plantar aspect at the base of the right fourth toe. No active bleeding. Sensation diminished in the area. BACK: Nontender without obvious deformity. No CVA tenderness. Data Data Last Documented VS Vital Signs Date Time Temp Pulse Resp B/P (MAP) Pulse Ox O2 Delivery O2 Flow Rate FiO2 05/13/17 22:00 74 18 190/100 (130) 97 05/13/17 18:27 98.5 Room Air Orders Orders Electrocardiogram (05/13/17 18:39) Basic Metabolic Panel (Bmp) (05/13/17 18:39) B-Type Natriuretic Peptide (05/13/17 18:39) Ckmb (Isoenzyme) Profile (05/13/17 18:39) Complete Blood Count With Diff (05/13/17 18:39) Magnesium (Mg) (05/13/17 18:39) Prothrombin Time / Inr (Pt) (05/13/17 18:39) Act Partial Throm Time (Ptt) (05/13/17 18:39) Troponin I (05/13/17 18:39) Chest, Pa & Lat (05/13/17 18:39) Toe (Min 2vws) (05/13/17 19:42) CKMB (05/13/17 19:00) CKMB% (05/13/17 19:00) Lidocaine 1% Inj (50 Ml) (Xylocaine 1% I (05/13/17 20:45) Ed Discharge Order (05/13/17 21:39) Clindamycin (Cleocin) (05/13/17 21:45) Labs Laboratory Tests Test 05/13/17 19:00 White Blood Count 3.9 TH/MM3 Red Blood Count 4.94 MIL/MM3 Hemoglobin 12.0 GM/DL Hematocrit 38.0 % Mean Corpuscular Volume 77.0 FL Mean Corpuscular Hemoglobin 24.3 PG Mean Corpuscular Hemoglobin Concent 31.5 % Red Cell Distribution Width 20.5 % Platelet Count 114 TH/MM3 Mean Platelet Volume 10.6 FL Neutrophils (%) (Auto) 64.4 % Lymphocytes (%) (Auto) 21.3 % Monocytes (%) (Auto) 8.5 % Eosinophils (%) (Auto) 4.9 % Basophils (%) (Auto) 0.9 % Neutrophils # (Auto) 2.5 TH/MM3 Lymphocytes # (Auto) 0.8 TH/MM3 Monocytes # (Auto) 0.3 TH/MM3 Eosinophils # (Auto) 0.2 TH/MM3 Basophils # (Auto) 0.0 TH/MM3 CBC Comment DIFF FINAL Differential Comment Prothrombin Time 12.7 SEC Prothromb Time International Ratio 1.1 RATIO Activated Partial Thromboplast Time 26.9 SEC Blood Urea Nitrogen 31 MG/DL Creatinine 4.05 MG/DL Random Glucose 122 MG/DL Calcium Level 8.2 MG/DL Magnesium Level 1.8 MG/DL Sodium Level 141 MEQ/L Potassium Level 4.1 MEQ/L Chloride Level 106 MEQ/L Carbon Dioxide Level 27.0 MEQ/L Anion Gap 8 MEQ/L Estimat Glomerular Filtration Rate 12 ML/MIN Total Creatine Kinase 177 U/L Creatine Kinase MB 5.0 NG/ML Troponin I 0.18 NG/ML B-Type Natriuretic Peptide 4488 PG/ML MDM Medical Decision Making Medical Screen Exam Complete: Yes Emergency Medical Condition: Yes Differential Diagnosis CHF versus PNA versus SBP versus fluid overload versus laceration versus fracture versus other Narrative Course 51 YO F with PMH of DM, ESRD, on dialysis , SAT followed by Dr. Medley presents to the ED for evaluation of intermittent SOB since yesterday. The patient denies fevers, chills, cough, chest pain, palpitations, abdominal pain, nausea, vomiting, dysuria, lower extremity edema. She thinks that her symptoms might be caused by anxiety. She states that she got out of bed around 5:00 this morning and shortly after noticed that there was blood on her foot. She states that there is a laceration on the toe of the foot. She says she doesn't have any pain in the area which she thinks is secondary to diabetic neuropathy. She states last tetanus immunization was "about a year ago." She does not have a marine radio installer and servicer. Vitals reviewed. Patient is hypertensive on presentation. She states that she did not take her evening antihypertensive medications before arrival today. She states that she takes 3 medications but is unsure of the doses. Physical exam reveals a pleasant female in no acute distress. Chest is CTAB. Abdomen soft and nontender. No CVA tenderness. No lower extremity edema noted. She does have a 1 cm laceration of the plantar aspect of the base of the right fourth toe. There is no active bleeding or visible foreign body. EKG rate 59, sinus rhythm. Borderline LAD, LVH. No acute ST changes. Reviewed by Dr. Chan. Similar to previous EKG of 11/22/16. CXR: Mild cardiomegaly. No acute disease. No concerning abnormalities in CBC or CMP. X-ray of the toe concerning for osteomyelitis per radiology read. However the injury occurred approximate 12 hours ago, I doubt osteomyelitis. During the course of evaluation the patient endorses an episode of shortness of breath when I approached with the supplies to perform laceration repair. I suspect her symptoms are related to anxiety. Laceration repair was performed. Please see my seizure note for details. Patient was prescribed clindamycin, first dose administered in the ED. she is instructed to take her antihypertensives upon return home, follow up with the marine radio installer and servicer this week. I explained to her the potential sequela of diabetic foot wounds. She was provided with the on-call marine radio installer and servicer information. She indicated understanding of the need for close follow-up. She is stable and discharged home. Procedures Procedure Narrative LACERATION LOCATION: Plantar aspect base of the right fourth toe LENGTH: 1.5 cm NUMBER OF STITCHES/RADHA: 2 REPAIR: The area of the laceration was prepped with Betadine and sterilely draped. The laceration was infiltrated with 1% lidocaine. The wound was copiously irrigated with 1-1/2 L normal saline and explored without evidence of foreign body, tendon injury or neurovascular injury. The wound was closed using 4-0 Prolene. This was a single layer repair. A sterile dressing was applied. The patient was advised to keep the dressing clean and dry. Patient tolerated the procedure well. Diagnosis Primary Impression: Laceration of toe of right foot without foreign body present or damage to nail Qualified Codes: S91.114A - Laceration without foreign body of right lesser toe(s) without damage to nail, initial encounter Referrals: Dylon Moore DPM Patient Instructions: General Instructions, Laceration (ED) Additional Instructions: Rest, hydrate. Keep the foot elevated as possible. Keep wound clean, dry and covered. Take all antibiotics as prescribed. Take your blood pressure medications when you return home tonight. Follow-up with the marine radio installer and servicer Dr. Moore this week. Suture removal recommended in 10-14 days. Return to the ED for any urgent or emergent medical condition. Med/Other Pt SpecificInfo: Prescription(s) given Scripts Clindamycin (Clindamycin) 300 Mg Cap 300 MG PO Q6H for Infection for 10 Days, #40 CAP 0 Refills Prov: Aurora Chan MD 05/13/17 Disposition: 01 DISCHARGE HOME Condition: Stable Wendy Pryor May 13, 2017 19:16
[2017-05-13 19:51] LABS: AUTOMATED NEUTROPHIL # 2.5 TH/MM3 (1.8-7.7); BASOPHIL % 0.9 % (0.0-2.0); EOSINOPHIL # 0.2 TH/MM3 (0-0.4); EOSINOPHIL % 4.9 % (0.0-4.0); HEMO FLAGS DIFF FINAL; LYMPH % 21.3 % (9.0-44.0); LYMPHOCYTE # 0.8 TH/MM3 (1.0-4.8); MEAN CORPUSCULAR HEMOGLOBIN 24.3 PG (27.0-34.0); MEAN CORPUSCULAR HGB CONC 31.5 % (32.0-36.0); MONO % 8.5 % (0.0-8.0); NEUT % 64.4 % (16.0-70.0); PLATELET COUNT 114 TH/MM3 (150-450); RED BLOOD COUNT 4.94 MIL/MM3 (4.00-5.30); RED CELL DISTRIBUTION WIDTH 20.5 % (11.6-17.2); WHITE BLOOD COUNT 3.9 TH/MM3 (4.0-11.0)
[2017-05-13 20:04] LABS: APTT (PATIENT) 26.9 SEC (24.3-30.1); INTERNATIONAL NORMALIZED RATIO 1.1 RATIO; PROTHROMBIN TIME - PATIENT 12.7 SEC (9.8-11.6)
--- NOTE | 2017-05-13 20:04 | RADRPT ---
EXAM DATE/TIME: 05/13/2017 19:49 [facility] COMPARISON: No previous studies available for comparison. INDICATIONS : Foot pain, 4th toe region of intrest. MEDICAL HISTORY : None. SURGICAL HISTORY : None. ENCOUNTER: Initial ACUITY: 1 day PAIN SCORE: 0/10 LOCATION: Right toe FINDINGS: Examination of the fourth digit of the right foot demonstrates soft tissue swelling of the fourth dig it. Minimal lucency within the distal phalanx. No periosteal reaction. No radiopaque foreign bodies are seen. The soft tissues are intact. CONCLUSION: Soft tissue swelling and minimal lucency in the distal phalanx fourth digit. Osteomyelitis cannot be excluded. Dylon Haley MD on May 13, 2017 at 20:01 Board Certified Radiologist. This report was verified electronically.
[2017-05-13 20:15] LABS: ANION GAP 8 MEQ/L (5-15); BLOOD UREA NITROGEN 31 MG/DL (7-18); CHLORIDE 106 MEQ/L (98-107); GLOMERULAR FILTRATION RATE 12 ML/MIN (>89); MAGNESIUM 1.8 MG/DL (1.5-2.5); POTASSIUM 4.1 MEQ/L (3.5-5.1); SODIUM (NA) 141 MEQ/L (136-145)
[2017-05-13 20:19] LABS: CREATINE KINASE 177 U/L (26-192)
[2017-05-13] MEDS ORDERED: LIDOCAINE HCL 1% 50 ML VIAL INFIL ONE (20:45)
[2017-05-13] MEDS ORDERED: CLIN300C5 PO (21:44)
[2017-05-13] MEDS ORDERED: SULFAMETHOXAZOLE-TRIMETHOPRIM DS 800-160 MG TAB PO ONE (21:45)
[2017-05-13] MEDS ORDERED: CLINDAMYCIN 150 MG CAP PO ONE (21:45)
[2017-05-13 22:00] VITALS: BP 190/100
--- NOTE | 2017-05-14 05:03 | EKG ---
Date Performed: 05/13/2017 Time Performed: 20:06:01 PTAGE: 51 years EKG: SINUS BRADYCARDIA BORDERLINE LEFT AXIS DEVIATION LEFT VENTRICULAR HYPERTROPHY Nonspecific S T and T wave abnormalities No significant change from prior electrocardiogram. DOCTOR: Niall Jung Interpretating Date/Time 05/14/2017 05:02:44
== END 2017-05-13 22:10 | disposition home or self-care (01) ==
LOC: NEPC 18:24
DX: S91.114A Laceration without foreign body of right lesser toe(s) without damage to nail, initial encounter (principal); R94.31 Abnormal electrocardiogram [ECG] [EKG]; E11.22 Type 2 diabetes mellitus with diabetic chronic kidney disease; E11.40 Type 2 diabetes mellitus with diabetic neuropathy, unspecified; I13.2 Hypertensive heart and chronic kidney disease with heart failure and with stage 5 chronic kidney disease, or end stage renal disease; N18.6 End stage renal disease; E78.00 Pure hypercholesterolemia, unspecified; I50.9 Heart failure, unspecified; Z99.2 Dependence on renal dialysis; Z95.5 Presence of coronary angioplasty implant and graft; Z86.73 Personal history of transient ischemic attack (TIA), and cerebral infarction without residual deficits; Z79.4 Long term (current) use of insulin
CPT/HCPCS: 12001; 71020; 73660; 80048; 82550; 82552; 83735; 83880; 84484; 85025; 85610; 85730; 93005

== ENCOUNTER 2017-05-31 16:57 | Inpatient (IN) | payer OTHER, MEDICARE ==
[2017-05-31] VITALS (8 sets, daily range): BP systolic 185–228; BP diastolic 94–113; PULSE 58–69; RESP 16–20; TEMP 98.2; O2SAT 97–99
[~2017-05-31] VITALS: Ht 175.3 cm; Wt 107.5 kg
[~2017-05-31 16:57] MED LIST changes: -BACT800T5 PO; -CEPH-460 PO; +CLIN300C5 PO; -HYDR-3533 PO
[2017-05-31] MEDS ORDERED: SODIUM CHLORIDE 0.9% FLUSH 10 ML FLUSH IVF PRN (17:45)
[2017-05-31] MEDS ORDERED: ASPIRIN 325 MG TAB PO ONE (17:45)
[2017-05-31 18:35] LABS: AUTOMATED NEUTROPHIL # 1.8 TH/MM3 (1.8-7.7); BASOPHIL % 1.4 % (0.0-2.0); EOSINOPHIL # 0.1 TH/MM3 (0-0.4); EOSINOPHIL % 4.5 % (0.0-4.0); HEMATOCRIT 38.5 % (35.0-46.0); LYMPH % 27.7 % (9.0-44.0); LYMPHOCYTE # 0.9 TH/MM3 (1.0-4.8); MEAN CELL VOLUME 78.4 FL (80.0-100.0); MEAN CORPUSCULAR HEMOGLOBIN 25.1 PG (27.0-34.0); MONO % 9.3 % (0.0-8.0); NEUT % 57.1 % (16.0-70.0); PLATELET COUNT 107 TH/MM3 (150-450); RED BLOOD COUNT 4.91 MIL/MM3 (4.00-5.30); RED CELL DISTRIBUTION WIDTH 20.4 % (11.6-17.2); WHITE BLOOD COUNT 3.1 TH/MM3 (4.0-11.0)
[2017-05-31 18:42] LABS: HEMO FLAGS AUTO DIFF
[2017-05-31 18:46] LABS: APTT (PATIENT) 22.7 SEC (24.3-30.1); INTERNATIONAL NORMALIZED RATIO 1.2 RATIO; PROTHROMBIN TIME - PATIENT 12.3 SEC (9.8-11.6)
--- NOTE | 2017-05-31 18:49 | RADRPT ---
EXAM DATE/TIME: 05/31/2017 18:23 [facility] COMPARISON: CHEST SINGLE AP, October 21, 2016, 22:32. INDICATIONS : Chest pain. MEDICAL HISTORY : Diabetes mellitus type II. Hypertension SURGICAL HISTORY : None. ENCOUNTER: Initial ACUITY: 2 days PAIN SCORE: 10/10 LOCATION: Left chest FINDINGS: Interval removal of tunnel dialysis catheter. No significant focal pleural or parenchymal opacities. Cardiac silhouette is enlarged. Remainder of the exam is unchanged. CONCLUSION: 1. Compensated cardiomegaly. 2. No acute abnormality or significant interval change. Tariq Reyes MD on May 31, 2017 at 18:46 Board Certified Radiologist. This report was verified electronically.
[2017-05-31 18:50] LABS: ANION GAP 9 MEQ/L (5-15); AST (GOT) 12 U/L (15-37); BICARBONATE 26.4 MEQ/L (21.0-32.0); BLOOD UREA NITROGEN 29 MG/DL (7-18); CHLORIDE 106 MEQ/L (98-107); GLOMERULAR FILTRATION RATE 11 ML/MIN (>89); POTASSIUM 4.3 MEQ/L (3.5-5.1); SODIUM (NA) 141 MEQ/L (136-145)
[2017-05-31 18:51] LABS: ALT (GPT) 19 U/L (10-53)
[2017-05-31 18:55] LABS: ALKALINE PHOSPHATASE 118 U/L (45-117); CREATINE KINASE 204 U/L (26-192); TOTAL BILIRUBIN ADULT 0.7 MG/DL (0.2-1.0)
--- NOTE | 2017-05-31 18:56 | PD ---
HPI Chief Complaint: Cardiac Complaint Time Seen by Provider: 17:34 Travel History International Travel<30 days: No Contact w/Intl Traveler<30days: No Traveled to known affect area: No History of Present Illness HPI 51-year-old female that presents to the ED for evaluation of shortness of breath with chest pressure. Per patient she's had this for about 2 days. Per patient comes and goes. Per patient she also has a when she sits. Is a history of ESRD with dialysis on Tuesdays, and Saturdays as well as diabetes, hypertension or high cholesterol. She states that she had her dialysis today and she had no issues with the dialysis. She was able to finish it. She did not mention to the dialysis Center that she was having the chest pressure she did not see her doctor during that time. She states to the shortness of breath comes and goes were also gets worse when she lays down. She does have a history of CHF and believes that she's been gaining weight on her legs. She denies any chest pain is that she has chest pressure feels it or something on her chest. No really painful. She had a given a number will be 4 out of 10. She isn't sure she takes any blood thinners. She did took an aspirin today. She denies any urinary or bowel movement issues. She states that she's been feeling like she has some belching as well and she is not sure this is related to that. No surgeries to her abdomen. No other medical issues reported at this time. PFSH Past Medical History Hx Anticoagulant Therapy: Yes Arthritis: No Asthma: No Autoimmune Disease: No Blood Disorders: No Anxiety: No Depression: Yes Heart Rhythm Problems: No Cancer: No Cardiovascular Problems: Yes High Cholesterol: Yes Chemotherapy: No Chest Pain: No Congestive Heart Failure: Yes COPD: No Cerebrovascular Accident: Yes Diabetes: Yes Patient Takes Glucophage: No Diminished Hearing: No Endocrine: Yes GERD: Yes Genitourinary: Yes (ESRD WITH DIALYSIS //fri) Hepatitis: No Hiatal Hernia: No Hypertension: Yes Immune Disorder: No Implanted Vascular Access Dvce: Yes Kidney Stones: No Musculoskeletal: No Neurologic: Yes Psychiatric: Yes Reproductive: No Respiratory: Yes Immunizations Current: No Migraines: No Radiation Therapy: No Renal Failure: Yes (d/t dye for cardiac stent insertions- DIALYSIS Q3 DAYS) Seizures: Yes Sickle Cell Disease: No Sleep Apnea: Yes (Wears CPAP ) Thyroid Disease: No Ulcer: No ?: Not Menopausal: Yes : 3 Para: 3 Miscarriage: 0 Past Surgical History Abdominal Surgery: No AICD: No Arteriovenous Shunt: No Body Medical Devices: RIGHT CHEST DIALYSIS ACCESS, CARDIAC STENTS Cardiac Surgery: Yes (STENTS (2) ) Section: Yes Ear Surgery: No Endocrine Surgery: No Eye Surgery: No Genitourinary Surgery: No Gynecologic Surgery: Yes Insulin Pump: No Joint Replacement: No Oral Surgery: No Pacemaker: No Thoracic Surgery: No Other Surgery: Yes (CARDIAC CATH 2015) Social History Alcohol Use: No Tobacco Use: No Substance Use: No Allergies-Medications (Allergen,Severity, Reaction): Coded Allergies: pregabalin (Verified Allergy, Severe, Anaphylaxis, 05/31/17) *MDRO Multi-Drug Resistant Organism (Verified Adverse Reaction, Unknown, 05/31/17) MRSA (sputum)-07/20/16 MRSA PCR Screen POSITIVE - 07/18/2016 Reported Meds & Prescriptions Reported Meds & Active Scripts Active Neurontin (Gabapentin) 300 Mg Cap 300 Mg PO DAILY Reported Ferrous Sulfate DR (Ferrous Sulfate) 325 Mg Tabdr 1 Tab PO BID Lisinopril 20 Mg Tab 20 Mg PO DAILY Nifedipine 10 Mg Cap 10 Mg PO DAILY Lasix (Furosemide) 20 Mg Tab 20 Mg PO BID Omeprazole 20 Mg Tab 20 Mg PO DAILY Clonidine (Clonidine HCl) 0.1 Mg Tab 0.1 Mg PO DAILY Coreg (Carvedilol) 6.25 Mg Tab 6.25 Mg PO BID Review of Systems Except as stated in HPI: all other systems reviewed are Neg Physical Exam Narrative GENERAL: SKIN: Warm and dry. Patient has palpable thrills on the left biceps where she has a fistula. Appears to be patent. HEAD: Atraumatic. Normocephalic. EYES: Pupils equal and round. No scleral icterus. No injection or drainage. ENT: No nasal bleeding or discharge. Mucous membranes pink and moist. Tongue is midline. No uvula deviation. NECK: Trachea midline. No JVD. CARDIOVASCULAR: Regular rate and rhythm. No murmurs, S3, S4. RESPIRATORY: No accessory muscle use. Clear to auscultation. Breath sounds equal bilaterally. GASTROINTESTINAL: Abdomen soft, non-tender, nondistended. Hepatic and splenic margins not palpable. MUSCULOSKELETAL: Extremities without clubbing, cyanosis, or edema. No obvious deformities. Full range of motion of the upper and lower extremities bilaterally. 2+ pulses bilaterally. NEUROLOGICAL: Awake and alert. No obvious cranial nerve deficits. Motor grossly within normal limits. Five out of 5 muscle strength in the arms and legs. Normal speech. PSYCHIATRIC: Appropriate mood and affect; insight and judgment normal. Data Data Last Documented VS Vital Signs Date Time Temp Pulse Resp B/P (MAP) Pulse Ox O2 Delivery O2 Flow Rate FiO2 05/31/17 19:01 60 20 213/105 (141) 99 Room Air 05/31/17 16:59 98.2 Orders Orders Electrocardiogram (05/31/17 ) Electrocardiogram (05/31/17 17:36) B-Type Natriuretic Peptide (05/31/17 17:36) Ckmb (Isoenzyme) Profile (05/31/17 17:36) Complete Blood Count With Diff (05/31/17 17:36) Comprehensive Metabolic Panel (05/31/17 17:36) Magnesium (Mg) (05/31/17 17:36) Prothrombin Time / Inr (Pt) (05/31/17 17:36) Act Partial Throm Time (Ptt) (05/31/17 17:36) Troponin I (05/31/17 17:36) Lipase (05/31/17 17:36) Chest, Single Ap (05/31/17 17:36) Ecg Monitoring (05/31/17 17:36) Bilateral Bp Monitoring (05/31/17 17:36) Iv Access Insert/Monitor (05/31/17 17:36) Oximetry (05/31/17 17:36) Aspirin (Aspirin) (05/31/17 17:45) Sodium Chloride 0.9% Flush (Ns Flush) (05/31/17 17:45) Clonidine (Catapres) (05/31/17 19:00) CKMB (05/31/17 18:15) CKMB% (05/31/17 18:15) Admit Order (Ed Use Only) (05/31/17 19:31) Labs Laboratory Tests Test 05/31/17 18:15 White Blood Count 3.1 TH/MM3 Red Blood Count 4.91 MIL/MM3 Hemoglobin 12.3 GM/DL Hematocrit 38.5 % Mean Corpuscular Volume 78.4 FL Mean Corpuscular Hemoglobin 25.1 PG Mean Corpuscular Hemoglobin Concent 32.0 % Red Cell Distribution Width 20.4 % Platelet Count 107 TH/MM3 Mean Platelet Volume 10.7 FL Neutrophils (%) (Auto) 57.1 % Lymphocytes (%) (Auto) 27.7 % Monocytes (%) (Auto) 9.3 % Eosinophils (%) (Auto) 4.5 % Basophils (%) (Auto) 1.4 % Neutrophils # (Auto) 1.8 TH/MM3 Lymphocytes # (Auto) 0.9 TH/MM3 Monocytes # (Auto) 0.3 TH/MM3 Eosinophils # (Auto) 0.1 TH/MM3 Basophils # (Auto) 0.0 TH/MM3 CBC Comment AUTO DIFF Differential Comment AUTO DIFF CONFIRMED Platelet Estimate LOW Platelet Morphology Comment NORMAL Ovalocytes 1+ Prothrombin Time 12.3 SEC Prothromb Time International Ratio 1.2 RATIO Activated Partial Thromboplast Time 22.7 SEC Blood Urea Nitrogen 29 MG/DL Creatinine 4.12 MG/DL Random Glucose 156 MG/DL Total Protein 7.8 GM/DL Albumin 3.4 GM/DL Calcium Level 8.6 MG/DL Magnesium Level 2.0 MG/DL Alkaline Phosphatase 118 U/L Aspartate Amino Transf (AST/SGOT) 12 U/L Alanine Aminotransferase (ALT/SGPT) 19 U/L Total Bilirubin 0.7 MG/DL Sodium Level 141 MEQ/L Potassium Level 4.3 MEQ/L Chloride Level 106 MEQ/L Carbon Dioxide Level 26.4 MEQ/L Anion Gap 9 MEQ/L Estimat Glomerular Filtration Rate 11 ML/MIN Total Creatine Kinase 204 U/L Creatine Kinase MB 5.4 NG/ML Creatine Kinase MB % 2.6 % Troponin I 0.16 NG/ML B-Type Natriuretic Peptide 3100 PG/ML Lipase 102 U/L MDM Medical Decision Making Medical Screen Exam Complete: Yes Emergency Medical Condition: Yes Medical Record Reviewed: Yes Interpretation(s) CBC & BMP Diagram 05/31/17 18:15 Total Protein 7.8, Albumin 3.4, Calcium Level 8.6, Magnesium Level 2.0, Alkaline Phosphatase 118 H, Aspartate Amino Transf (AST/SGOT) 12 L, Alanine Aminotransferase (ALT/SGPT) 19, Total Bilirubin 0.7 Last Impressions Chest X-Ray 05/31/17 [id number] Signed Impressions: Service Date/Time: Saturday, May 31, 2017 18:23 - CONCLUSION: 1. Compensated cardiomegaly. 2. No acute abnormality or significant interval change. Tariq Reyes MD BNP in the 3000s troponin of 0.16 CK WNL coags WNL Differential Diagnosis Chest pain versus ACS versus CHF versus pneumonia versus pulmonary edema versus NSTEMI Narrative Course 51-year-old female that presents to the ED for evaluation of chest pain. Patient was properly examined and was found to have signs and symptoms of unclear etiology but likely related to CHF. Labs and imaging ordered. Labs and imaging showed appears to be CHF exacerbation with positive troponin. Troponin likely secondary to the kidney disease as well as the CHF. I do recommend admission for further eval. Case discussed with Dr. Cruz who agrees to admission for FOR CHF exacerbation. Patient agrees with this. Diagnosis Primary Impression: Acute exacerbation of CHF (congestive heart failure) Qualified Codes: I50.23 - Acute on chronic systolic (congestive) heart failure Additional Impression: Elevated troponin Admitting Information Admitting Physician Requests: Observation Kalpesh Smith May 31, 2017 18:55
[2017-05-31] MEDS ORDERED: cloNIDine HCL 0.1 MG TAB PO ONE (19:00)
[2017-05-31 19:07] LABS: CKMB 5.4 NG/ML (0.5-3.6)
[2017-05-31 19:21] LABS: PLATELET ESTIMATE SMEAR LOW (NORMAL); PLATELET MORPHOLOGY NORMAL (NORMAL); SCAN/DIFF AUTO DIFF CONFIRMED
[2017-05-31 19:22] LABS: OVALOCYTES 1+ (NORMAL)
--- NOTE | 2017-05-31 19:43 | PD ---
Data Data Last Documented VS Vital Signs Date Time Temp Pulse Resp B/P (MAP) Pulse Ox O2 Delivery O2 Flow Rate FiO2 05/31/17 19:01 60 20 213/105 (141) 99 Room Air 05/31/17 16:59 98.2 Orders Orders Electrocardiogram (05/31/17 ) B-Type Natriuretic Peptide (05/31/17 17:36) Ckmb (Isoenzyme) Profile (05/31/17 17:36) Complete Blood Count With Diff (05/31/17 17:36) Comprehensive Metabolic Panel (05/31/17 17:36) Magnesium (Mg) (05/31/17 17:36) Prothrombin Time / Inr (Pt) (05/31/17 17:36) Act Partial Throm Time (Ptt) (05/31/17 17:36) Troponin I (05/31/17 17:36) Lipase (05/31/17 17:36) Chest, Single Ap (05/31/17 17:36) Ecg Monitoring (05/31/17 17:36) Bilateral Bp Monitoring (05/31/17 17:36) Iv Access Insert/Monitor (05/31/17 17:36) Oximetry (05/31/17 17:36) Aspirin (Aspirin) (05/31/17 17:45) Sodium Chloride 0.9% Flush (Ns Flush) (05/31/17 17:45) Clonidine (Catapres) (05/31/17 19:00) CKMB (05/31/17 18:15) CKMB% (05/31/17 18:15) Admit Order (Ed Use Only) (05/31/17 19:31) Labs Laboratory Tests Test 05/31/17 18:15 White Blood Count 3.1 TH/MM3 Red Blood Count 4.91 MIL/MM3 Hemoglobin 12.3 GM/DL Hematocrit 38.5 % Mean Corpuscular Volume 78.4 FL Mean Corpuscular Hemoglobin 25.1 PG Mean Corpuscular Hemoglobin Concent 32.0 % Red Cell Distribution Width 20.4 % Platelet Count 107 TH/MM3 Mean Platelet Volume 10.7 FL Neutrophils (%) (Auto) 57.1 % Lymphocytes (%) (Auto) 27.7 % Monocytes (%) (Auto) 9.3 % Eosinophils (%) (Auto) 4.5 % Basophils (%) (Auto) 1.4 % Neutrophils # (Auto) 1.8 TH/MM3 Lymphocytes # (Auto) 0.9 TH/MM3 Monocytes # (Auto) 0.3 TH/MM3 Eosinophils # (Auto) 0.1 TH/MM3 Basophils # (Auto) 0.0 TH/MM3 CBC Comment AUTO DIFF Differential Comment AUTO DIFF CONFIRMED Platelet Estimate LOW Platelet Morphology Comment NORMAL Ovalocytes 1+ Prothrombin Time 12.3 SEC Prothromb Time International Ratio 1.2 RATIO Activated Partial Thromboplast Time 22.7 SEC Blood Urea Nitrogen 29 MG/DL Creatinine 4.12 MG/DL Random Glucose 156 MG/DL Total Protein 7.8 GM/DL Albumin 3.4 GM/DL Calcium Level 8.6 MG/DL Magnesium Level 2.0 MG/DL Alkaline Phosphatase 118 U/L Aspartate Amino Transf (AST/SGOT) 12 U/L Alanine Aminotransferase (ALT/SGPT) 19 U/L Total Bilirubin 0.7 MG/DL Sodium Level 141 MEQ/L Potassium Level 4.3 MEQ/L Chloride Level 106 MEQ/L Carbon Dioxide Level 26.4 MEQ/L Anion Gap 9 MEQ/L Estimat Glomerular Filtration Rate 11 ML/MIN Total Creatine Kinase 204 U/L Creatine Kinase MB 5.4 NG/ML Creatine Kinase MB % 2.6 % Troponin I 0.16 NG/ML B-Type Natriuretic Peptide 3100 PG/ML Lipase 102 U/L [facility] Medical Record Reviewed: Yes Supervised Visit with [facility]: No Narrative Course I, Dr. Choudhury, have reviewed the advance practice practitioner's documentation and am in agreement, met with the patient face to face, made the diagnosis, and the medical decision making was done by me. *My assessment and Findings: CBC & BMP Diagram 05/31/17 18:15 Total Protein 7.8, Albumin 3.4, Calcium Level 8.6, Magnesium Level 2.0, Alkaline Phosphatase 118 H, Aspartate Amino Transf (AST/SGOT) 12 L, Alanine Aminotransferase (ALT/SGPT) 19, Total Bilirubin 0.7 Tn 0.16 BNP 3100 Please refer to MONTY note Tex Choudhury MD May 31, 2017 19:43
[2017-05-31] MEDS ORDERED: LACTULOSE SYRUP 20 GM/30 ML CUP PO PRN (19:45)
[2017-05-31] MEDS ORDERED: METOPROLOL TARTRATE 5 MG/5 ML VIAL IV PUSH ONE (19:45)
[2017-05-31] MEDS ORDERED: ACETAMINOPHEN 325 MG TAB PO PRN (19:45)
[2017-05-31] MEDS ORDERED: SENNOSIDES 8.6 MG TAB PO PRN (19:45)
[2017-05-31] MEDS ORDERED: ACETAMINOPHEN/HYDROcodone 325 MG/5 MG TAB PO PRN (19:45)
[2017-05-31] MEDS ORDERED: BISACODYL 10 MG SUPP RECTAL PRN (19:45)
[2017-05-31] MEDS ORDERED: MAGNESIUM HYDROXIDE SUSP 30 ML CUP PO PRN (19:45)
[2017-05-31] MEDS ORDERED: hydrALAZINE HCL 20 MG/ML VIAL IV PUSH ONE ×2 (19:45→21:00)
[2017-05-31] MEDS ORDERED: FUROSEMIDE 40 MG/4 ML VIAL IV PUSH ONE (19:45)
[2017-05-31] MEDS ORDERED: SODIUM CHLORIDE 0.9% FLUSH 10 ML FLUSH IV FLUSH PRN (19:45)
[2017-05-31] MEDS ORDERED: MORPHINE SULFATE 2 MG/ML INJ IV PRN (20:00)
[2017-05-31] MEDS: CARVEDILOL 6.25 MG TAB PO SCH (21:07)
[2017-05-31] MEDS: DOCUSATE SODIUM 50 MG/SENNA 8.6 MG TAB PO SCH (21:07)
--- NOTE | 2017-05-31 21:36 | EKG ---
Date Performed: 05/31/2017 Time Performed: 17:13:46 PTAGE: 51 years EKG: Sinus rhythm , POSSIBLE LEFT ATRIAL ENLARGEMENT, HIGH LATERAL T WAVE ABNORMALITY, CONSIDER ISCHEMIA, POOR R WAVE P ROGRESSION ABNORMAL ECG PREVIOUS TRACING : 05/13/2017 20.06 Compared to previous tracing, P wave axis has shifted. DOCTOR: Luke Leon Interpretating Date/Time 05/31/2017 21:34:27
--- NOTE | 2017-05-31 23:10 | HHI.HP ---
[facility] No Primary Care Physician Admission Diagnosis acute CHF exacerbation, positive troponin Diagnoses: (1) Chest pain Diagnosis: Principal (2) CHF (congestive heart failure) Diagnosis: Principal (3) Elevated troponin Diagnosis: Principal (4) HTN (hypertension) Diagnosis: Principal (5) ESRD (end stage renal disease) on dialysis Diagnosis: Principal Travel History International Travel<30 Days: No Contact w/Intl Traveler <30 Da: No Traveled to Known Affected Are: No History of Present Illness This is a 51-year-old female with a PMH of HTN, Hyperlipidemia, Depression, DM, CHF (Echo 07/24/16 w/ EF 45-50%) and ESRD on HD / who was brought to the ER secondary to c/o chest pain starting earlier today. States she was at HD today and had acute onset of chest pain, however able to complete HD without problems. Denies fever, chills or cough. On arrival, BP 228/110, HR 64, O2 sat 98% on RA, Afebrile. CBC at baseline. Creatinine 4.12, previously 4.05 on 05/13/17. Troponin 0.16, per review of labs chronically elevated, previously 0.18 on 05/13/17. BNP 3100. INR 1.2. CXR with cardiomegaly, no acute changes. Review of Systems Except as stated in HPI: all other systems reviewed are Neg ROS: 14 point review of systems otherwise negative. Past Family Social History Past Medical History PMH: HTN, Hyperlipidemia, Depression, DM, CHF (Echo 07/24/16 w/ EF 45-50%) and ESRD on HD Past Surgical History PAST SURGICAL HISTORY: Dialysis Port, Cardiac Stent, Allergies: Coded Allergies: pregabalin (Verified Allergy, Severe, Anaphylaxis, 05/31/17) *MDRO Multi-Drug Resistant Organism (Verified Adverse Reaction, Unknown, 05/31/17) MRSA (sputum)-07/20/16 MRSA PCR Screen POSITIVE - 07/18/2016 Family History PAST FAMILY HISTORY: Reviewed, positive for DM. Social History PAST SOCIAL HISTORY: Negative for alcohol, tobacco or drugs. Physical Exam Vital Signs Vital Signs Date Time Temp Pulse Resp B/P (MAP) Pulse Ox O2 Delivery O2 Flow Rate FiO2 05/31/17 22:58 198/113 (141) 05/31/17 22:16 69 18 198/110 (139) 97 Room Air 05/31/17 20:44 58 18 217/103 (141) 98 Room Air 05/31/17 19:01 60 20 213/105 (141) 99 Room Air 05/31/17 18:17 60 213/104 (140) 05/31/17 17:30 62 18 227/107 (147) 97 Room Air 05/31/17 16:59 98.2 64 16 228/110 (149) 98 Physical Exam PE: GENERAL: Pleasant middle-aged female in no acute distress. HEENT: PERRLA, EOMI. No scleral icterus or conjunctival pallor. No lid lag or facial droop. CARDIOVASCULAR: Regular rate and rhythm. No obvious murmurs to auscultation. No chest tenderness to palpation. RESPIRATORY: No obvious rhonchi or wheezing. Clear to auscultation. Breath sounds equal bilaterally. GASTROINTESTINAL: Abdomen soft, non-tender, nondistended. BS normal. MUSCULOSKELETAL: Extremities without clubbing, cyanosis, or edema. No obvious deformities. LUE fistula w/ good thrill. NEUROLOGICAL: Awake, alert and oriented x4. No focal neurologic deficits. Moving both upper and lower extremities spontaneously. Laboratory Laboratory Tests Test 05/31/17 18:15 White Blood Count 3.1 Red Blood Count 4.91 Hemoglobin 12.3 Hematocrit 38.5 Mean Corpuscular Volume 78.4 Mean Corpuscular Hemoglobin 25.1 Mean Corpuscular Hemoglobin Concent 32.0 Red Cell Distribution Width 20.4 Platelet Count 107 Mean Platelet Volume 10.7 Neutrophils (%) (Auto) 57.1 Lymphocytes (%) (Auto) 27.7 Monocytes (%) (Auto) 9.3 Eosinophils (%) (Auto) 4.5 Basophils (%) (Auto) 1.4 Neutrophils # (Auto) 1.8 Lymphocytes # (Auto) 0.9 Monocytes # (Auto) 0.3 Eosinophils # (Auto) 0.1 Basophils # (Auto) 0.0 CBC Comment AUTO DIFF Differential Comment AUTO DIFF CONFIRMED Platelet Estimate LOW Platelet Morphology Comment NORMAL Ovalocytes 1+ Prothrombin Time 12.3 Prothromb Time International Ratio 1.2 Activated Partial Thromboplast Time 22.7 Blood Urea Nitrogen 29 Creatinine 4.12 Random Glucose 156 Total Protein 7.8 Albumin 3.4 Calcium Level 8.6 Magnesium Level 2.0 Alkaline Phosphatase 118 Aspartate Amino Transf (AST/SGOT) 12 Alanine Aminotransferase (ALT/SGPT) 19 Total Bilirubin 0.7 Sodium Level 141 Potassium Level 4.3 Chloride Level 106 Carbon Dioxide Level 26.4 Anion Gap 9 Estimat Glomerular Filtration Rate 11 Total Creatine Kinase 204 Creatine Kinase MB 5.4 Creatine Kinase MB % 2.6 Troponin I 0.16 B-Type Natriuretic Peptide 3100 Lipase 102 Result Diagram: 05/31/17181405/31/171814 Caprini VTE Risk Assessment Caprini VTE Risk Assessment: No/Low Risk (score <= 1) Caprini Risk Assessment Model Point Value = 1 Point Value = 2 Point Value = 3 Point Value = 5 Age 41-60 Minor surgery BMI > 25 kg/m2 Swollen legs Varicose veins or History of unexplained or recurrent spontaneous Oral contraceptives or hormone replacement Sepsis (< 1 month) Serious lung disease, including pneumonia (< 1 month) Abnormal pulmonary function Acute myocardial infarction Congestive heart failure (< 1 month) History of inflammatory bowel disease Medical patient at bed rest Age 61-74 Arthroscopic surgery Major open surgery (> 45 min) Laparoscopic surgery (> 45 min) Malignancy Confined to bed (> 72 hours) Immobilizing plaster cast Central venous access Age >= 75 History of VTE Family history of VTE Factor V Leiden Prothrombin 10057G Lupus anticoagulant Anticardiolipin antibodies Elevated serum homocysteine Heparin-induced thrombocytopenia Other congenital or acquired thrombophilia Stroke (< 1 month) Elective arthroplasty Hip, pelvis, or leg fracture Acute spinal cord injury (< 1 month) Prophylaxis Regimen Total Risk Factor Score Risk Level Prophylaxis Regimen 0-1 Low Early ambulation 2 Moderate Order ONE of the following: *Sequential Compression Device (SCD) *Heparin 5000 units SQ BID 3-4 Higher Order ONE of the following medications: *Heparin 5000 units SQ TID *Enoxaparin/Lovenox 40 mg SQ daily (WT < 150 kg, CrCl > 30 mL/min) *Enoxaparin/Lovenox 30 mg SQ daily (WT < 150 kg, CrCl > 10-29 mL/min) *Enoxaparin/Lovenox 30 mg SQ BID (WT < 150 kg, CrCl > 30 mL/min) AND/OR *Sequential Compression Device (SCD) 5 or more Highest Order ONE of the following medications: *Heparin 5000 units SQ TID (Preferred with Epidurals) *Enoxaparin/Lovenox 40 mg SQ daily (WT < 150 kg, CrCl > 30 mL/min) *Enoxaparin/Lovenox 30 mg SQ daily (WT < 150 kg, CrCl > 10-29 mL/min) *Enoxaparin/Lovenox 30 mg SQ BID (WT < 150 kg, CrCl > 30 mL/min) AND *Sequential Compression Device (SCD) Assessment and Plan Problem List: (1) Chest pain ICD Code: R07.9 - Chest pain, unspecified (2) CHF (congestive heart failure) ICD Code: I50.9 - Heart failure, unspecified (3) Elevated troponin ICD Code: R79.89 - Other specified abnormal findings of blood chemistry Status: Acute (4) HTN (hypertension) ICD Code: I10 - Essential (primary) hypertension Status: Chronic (5) ESRD (end stage renal disease) on dialysis ICD Code: N18.6 - End stage renal disease; Z99.2 - Dependence on renal dialysis Status: Chronic Assessment and Plan A/P: 1. Chest Pain: acute onset of chest pain during dialysis, now resolved. Trop 0.16, chronically elevated per review of labs, EKG w/ no acute ischemia. Check serial cardiac enzymes, ASA, Statin, resume home medications, NTG/Morphine prn. 2. CHF: Acute on Chronic. Systolic. Echo 07/24/16 w/ EF 45-50%, BNP 3100, CXR w/ cardiomegaly, images reviewed by me. On Lasix at home, start Lasix IV, monitor I/O. Likely needs additional HD for volume overload. 3. Elevated Trop: Chronic. Trop 0.16, previously 0.18 on 05/13/17. Consult Cardiology for further evaluation. Management as above. 4. ESRD on HD: //, follows w/ Dr. Medley, will consult to resume HD. 5. HTN: Uncontrolled. BP 228/110 on arrival, s/p Clonidine PO in ER w/ minimal improvement. Hydralazine 10mg IV x1, resume home medications, monitor BP. 6. DVT Prophylaxis: Heparin sq 7. Social work for d/c planning as needed. 8. Case discussed w/ ER physician at length. Cheyanne Cruz MD May 31, 2017 23:10
[2017-05-31] MEDS ORDERED: NITROGLYCERIN 2% OINT 1 GM PACKET TOPICAL PRN (23:15)
[2017-06-01] VITALS (22 sets, daily range): BP systolic 146–212; BP diastolic 74–107; PULSE 58–89; RESP 16–18; TEMP 97.8–98.7; O2SAT 91–94
[2017-06-01] MEDS: hydrALAZINE HCL 20 MG/ML VIAL IV PUSH PRN ×2 (01:11→08:30)
[2017-06-01 02:35] LABS: AUTOMATED NEUTROPHIL # 1.5 TH/MM3 (1.8-7.7); BASOPHIL % 1.2 % (0.0-2.0); EOSINOPHIL # 0.1 TH/MM3 (0-0.4); EOSINOPHIL % 5.2 % (0.0-4.0); HEMATOCRIT 36.4 % (35.0-46.0); HEMO FLAGS DIFF FINAL; LYMPH % 26.8 % (9.0-44.0); LYMPHOCYTE # 0.7 TH/MM3 (1.0-4.8); MEAN CELL VOLUME 77.5 FL (80.0-100.0); MEAN CORPUSCULAR HEMOGLOBIN 24.5 PG (27.0-34.0); MEAN CORPUSCULAR HGB CONC 31.6 % (32.0-36.0); MONO % 11.7 % (0.0-8.0); NEUT % 55.1 % (16.0-70.0); PLATELET COUNT 122 TH/MM3 (150-450); RED CELL DISTRIBUTION WIDTH 20.4 % (11.6-17.2); WHITE BLOOD COUNT 2.7 TH/MM3 (4.0-11.0)
[2017-06-01 02:52] LABS: ALT (GPT) 16 U/L (10-53); ANION GAP 9 MEQ/L (5-15); AST (GOT) 7 U/L (15-37); BICARBONATE 24.3 MEQ/L (21.0-32.0); BLOOD UREA NITROGEN 31 MG/DL (7-18); CHLORIDE 109 MEQ/L (98-107); GLOMERULAR FILTRATION RATE 11 ML/MIN (>89); POTASSIUM 3.8 MEQ/L (3.5-5.1); SODIUM (NA) 142 MEQ/L (136-145)
[2017-06-01 02:56] LABS: ALKALINE PHOSPHATASE 102 U/L (45-117); TOTAL BILIRUBIN ADULT 0.7 MG/DL (0.2-1.0)
[2017-06-01] MEDS: ONDANSETRON HCL 4 MG/2 ML VIAL IVP PRN (05:02)
[2017-06-01] MEDS: FERROUS SULFATE 325 MG (65 MG ELEMENTAL IRON) TAB PO SCH ×2 (06:31→16:19)
[2017-06-01] MEDS: GABAPENTIN 300 MG CAP PO SCH (08:28)
[2017-06-01] MEDS: CARVEDILOL 6.25 MG TAB PO SCH ×2 (08:29→21:30)
[2017-06-01] MEDS: LISINOPRIL 20 MG TAB PO SCH (08:29)
[2017-06-01] MEDS: PANTOPRAZOLE SOD 20 MG DELAYED RELEASE TAB PO SCH (08:29)
[2017-06-01] MEDS: DOCUSATE SODIUM 50 MG/SENNA 8.6 MG TAB PO SCH ×2 (08:29→21:00)
[2017-06-01] MEDS: HEPARIN SODIUM - SQ 10,000 UNITS/ML VIAL SQ SCH ×2 (08:30→21:30)
[2017-06-01] MEDS: FUROSEMIDE 20 MG/2 ML VIAL IV PUSH SCH ×2 (08:31→18:41)
--- NOTE | 2017-06-01 08:50 | HHI.PR ---
Subjective Remarks Follow chest pain/shortness of breath 06/01/17-Patient seen and examined; denies any significant shortness of breath. +slight Headaches but no emesis or nausea. NO chest pain Objective Vitals Vital Signs Date Time Temp Pulse Resp B/P (MAP) Pulse Ox O2 Delivery O2 Flow Rate FiO2 06/01/17 06:00 62 06/01/17 05:15 18 06/01/17 05:00 68 06/01/17 04:00 68 06/01/17 03:00 98.5 70 16 180/94 (122) 93 06/01/17 03:00 69 06/01/17 02:00 72 05/31/17 23:59 05/31/17 23:32 68 185/94 (124) 05/31/17 22:58 198/113 (141) 05/31/17 22:16 69 18 198/110 (139) 97 Room Air 05/31/17 20:44 58 18 217/103 (141) 98 Room Air 05/31/17 19:01 60 20 213/105 (141) 99 Room Air 05/31/17 18:17 60 213/104 (140) 05/31/17 17:30 62 18 227/107 (147) 97 Room Air 05/31/17 16:59 98.2 64 16 228/110 (149) 98 I/O 05/31/17 05/31/17 05/31/17 06/01/17 06/01/17 06/01/17 07:00 15:00 23:00 07:00 15:00 23:00 Intake Total 360 ml Balance 360 ml Intake Oral 360 ml # Voids 1 Result Diagram: 06/01/174 06/01/174 Imaging Last Impressions Chest X-Ray 05/31/17 1736 Signed Impressions: Service Date/Time: Wednesday, May 31, 2017 18:23 - CONCLUSION: 1. Compensated cardiomegaly. 2. No acute abnormality or significant interval change. Tariq Reyes MD Objective Remarks GENERAL: NAD SKIN: Warm and dry. HEAD: Normocephalic. EYES: No scleral icterus. No injection or drainage. NECK: Supple, trachea midline. No JVD or lymphadenopathy. CARDIOVASCULAR: Regular rate and rhythm with II/ CONNIE RESPIRATORY: Breath sounds equal bilaterally. No accessory muscle use. GASTROINTESTINAL: Abdomen soft, non-tender, nondistended. MUSCULOSKELETAL: No cyanosis, Trace edema LLE. BACK: Nontender without obvious deformity. No CVA tenderness. A/P Problem List: (1) Chest pain ICD Code: R07.9 - Chest pain, unspecified (2) CHF (congestive heart failure) ICD Code: I50.9 - Heart failure, unspecified (3) Elevated troponin ICD Code: R79.89 - Other specified abnormal findings of blood chemistry Status: Acute (4) HTN (hypertension) ICD Code: I10 - Essential (primary) hypertension Status: Chronic (5) ESRD (end stage renal disease) on dialysis ICD Code: N18.6 - End stage renal disease; Z99.2 - Dependence on renal dialysis Status: Chronic Assessment and Plan 51 yrs old female with 1. Chest Pain: Continue with serial cardiac enzymes, ASA, Statin, home medications, NTG/Morphine prn. 2. CHF: Acute on Chronic. Systolic. Echo 07/24/16 w/ EF 45-50%, BNP 3100, CXR w/ cardiomegaly. Continue Lasix IV, monitor I/O. Likely needs additional HD for volume overload. 3. Elevated Trop: Chronic. Trop 0.16, previously 0.18 on 05/13/17. Consult Cardiology for further evaluation. Management as above. 4. ESRD on HD: T//, follows w/ Dr. Medley, will consult to resume HD. 5. HTN: Uncontrolled. Start Hydralazine 50mg Q8H and continue home medications. 6. DVT Prophylaxis: Heparin sq Dylon Maurer MD Jun 01, 2017 08:50
[2017-06-01] MEDS ORDERED: cloNIDine HCL 0.1 MG TAB PO SCH (09:00)
[2017-06-01] MEDS: SODIUM CHLORIDE 0.9% FLUSH 10 ML FLUSH IV FLUSH SCH ×2 (09:00→21:30)
[2017-06-01] MEDS ORDERED: NIFEdipine 10 MG CAP PO SCH (09:00)
[2017-06-01] MEDS: hydrALAZINE HCL 50 MG TAB PO SCH ×3 (09:26→21:30)
--- NOTE | 2017-06-01 11:15 | PD.CONS ---
HPI Service cardiology Consult Requested By Reason for Consult elevated troponin Primary Care Physician No Primary Care Physician History of Present Illness This is a 51 yo F with history of HTN,HLD, DM, chronic CHF, ESRD w/ HD three times per week who developed acute onset chest pain and SOB yesterday during dialysis. Chest pain was felt for less than one minute with associated sob. She reports no history of CAD. ECG showed no concerning ST changes, CXR shows cardiomegaly with no significant fluid overload. troponins elevated 0.16 which is appears to be a chronic elevation. Echo 07/2016 EF 45-50%, lexiscan 05/2016 showed mild reversible ischemia. She is currently feeling nauseous. no chest pain or sob overnight. (Kizzy Elmore) Review of Systems Consitutional: DENIES: Fatigue, Fever, Chills, Weight gain, Weight loss Respiratory: DENIES: Cough, Snoring, Wheezing, Sputum production Cardiovascular: DENIES: Palpitations, Syncope, Tachycardia Gastrointestinal: DENIES: Change in bowel habits, Reflux, Bloody stools, Melena (Kizzy Elmore) Past Family Social History Allergies: Coded Allergies: pregabalin (Verified Allergy, Severe, Anaphylaxis, 05/31/17) *MDRO Multi-Drug Resistant Organism (Verified Adverse Reaction, Unknown, 05/31/17) MRSA (sputum)-07/20/16 MRSA PCR Screen POSITIVE - 07/18/2016 Past Medical History HTN, Hyperlipidemia, Depression, DM, CHF (Echo 07/24/16 w/ EF 45-50%) and ESRD on HD T// Past Surgical History Dialysis Port, Cardiac Stent, Reported Medications Reported Meds & Active Scripts Active Neurontin (Gabapentin) 300 Mg Cap 300 Mg PO DAILY Reported Ferrous Sulfate DR (Ferrous Sulfate) 325 Mg Tabdr 1 Tab PO BID Lisinopril 20 Mg Tab 20 Mg PO DAILY Nifedipine 10 Mg Cap 10 Mg PO DAILY Lasix (Furosemide) 20 Mg Tab 20 Mg PO BID Omeprazole 20 Mg Tab 20 Mg PO DAILY Clonidine (Clonidine HCl) 0.1 Mg Tab 0.1 Mg PO DAILY Coreg (Carvedilol) 6.25 Mg Tab 6.25 Mg PO BID Active Ordered Medications Current Medications Medications (Trade) Dose Ordered Sig/Christa Route Start Time Stop Time Status Last Admin (Lasix Inj) 20 mg BID@,18 IV PUSH 06/01/17 09:00 06/01/17 08:31 (NS Flush) 2 ml UNSCH PRN IV FLUSH 05/31/17 19:45 (NS Flush) 2 ml BID IV FLUSH 05/31/17 21:00 06/01/17 09:00 (Zofran Inj) 4 mg Q6H PRN IVP 05/31/17 19:45 06/01/17 05:02 (Heparin Inj) 5,000 units Q12H SQ 06/01/17 09:00 06/01/17 08:30 (Tylenol) 650 mg Q6H PRN PO 05/31/17 19:45 06/01/17 04:14 ([place] 5-325 Mg) 1 tab Q4H PRN PO 05/31/17 19:45 (Morphine Inj) 2 mg Q3H PRN IV 05/31/17 20:00 (Alvina-Colace) 1 tab BID PO 05/31/17 21:00 05/31/17 21:07 (Milk Of Magnesia Liq) 30 ml Q12H PRN PO 05/31/17 19:45 (Senokot) 17.2 mg Q12H PRN PO 05/31/17 19:45 (Dulcolax Supp) 10 mg DAILY PRN RECTAL 05/31/17 19:45 (Lactulose Liq) 30 ml DAILY PRN PO 05/31/17 19:45 (Coreg) 6.25 mg BID PO 05/31/17 21:00 06/01/17 08:29 (Catapres) 0.1 mg DAILY PO 06/01/17 09:00 06/01/17 08:29 (Neurontin) 300 mg DAILY PO 06/01/17 09:00 06/01/17 08:28 (Prinivil) 20 mg DAILY PO 06/01/17 09:00 06/01/17 08:29 (Procardia) 10 mg DAILY PO 06/01/17 09:00 06/01/17 10:02 (Ferrous Sulfate) 325 mg BIDAC PO 06/01/17 07:00 06/01/17 06:31 (Protonix) 20 mg DAILY PO 06/01/17 09:00 06/01/17 08:29 (Nitroglycerin 2% Oint) 0.5 inch Q6HR PRN TOPICAL 05/31/17 23:15 (Apresoline Inj) 10 mg Q6H PRN IV PUSH 06/01/17 01:00 06/01/17 08:30 (Apresoline) 50 mg Q8HR PO 06/01/17 09:00 06/01/17 09:26 Family History positive for DM. Social History Negative for alcohol, tobacco or drugs. (Kizzy Elmore) Physical Exam Vital Signs Vital Signs Date Time Temp Pulse Resp B/P (MAP) Pulse Ox O2 Delivery O2 Flow Rate FiO2 06/01/17 10:00 71 06/01/17 09:00 71 06/01/17 08:00 89 06/01/17 07:00 89 06/01/17 07:00 98.4 68 16 212/107 (142) 94 06/01/17 06:00 62 06/01/17 05:15 18 06/01/17 05:00 68 06/01/17 04:00 68 06/01/17 03:00 98.5 70 16 180/94 (122) 93 06/01/17 03:00 69 06/01/17 02:00 72 05/31/17 23:59 05/31/17 23:32 68 185/94 (124) 05/31/17 22:58 198/113 (141) 05/31/17 22:16 69 18 198/110 (139) 97 Room Air 05/31/17 20:44 58 18 217/103 (141) 98 Room Air 05/31/17 19:01 60 20 213/105 (141) 99 Room Air 05/31/17 18:17 60 213/104 (140) 05/31/17 17:30 62 18 227/107 (147) 97 Room Air 05/31/17 16:59 98.2 64 16 228/110 (149) 98 Laboratory Laboratory Tests Test 05/31/17 18:15 06/01/17 02:24 White Blood Count 3.1 2.7 Red Blood Count 4.91 4.70 Hemoglobin 12.3 11.5 Hematocrit 38.5 36.4 Mean Corpuscular Volume 78.4 77.5 Mean Corpuscular Hemoglobin 25.1 24.5 Mean Corpuscular Hemoglobin Concent 32.0 31.6 Red Cell Distribution Width 20.4 20.4 Platelet Count 107 122 Mean Platelet Volume 10.7 9.9 Neutrophils (%) (Auto) 57.1 55.1 Lymphocytes (%) (Auto) 27.7 26.8 Monocytes (%) (Auto) 9.3 11.7 Eosinophils (%) (Auto) 4.5 5.2 Basophils (%) (Auto) 1.4 1.2 Neutrophils # (Auto) 1.8 1.5 Lymphocytes # (Auto) 0.9 0.7 Monocytes # (Auto) 0.3 0.3 Eosinophils # (Auto) 0.1 0.1 Basophils # (Auto) 0.0 0.0 CBC Comment AUTO DIFF DIFF FINAL Differential Comment AUTO DIFF CONFIRMED Platelet Estimate LOW Platelet Morphology Comment NORMAL Ovalocytes 1+ Prothrombin Time 12.3 Prothromb Time International Ratio 1.2 Activated Partial Thromboplast Time 22.7 Blood Urea Nitrogen 29 31 Creatinine 4.12 4.17 Random Glucose 156 152 Total Protein 7.8 6.9 Albumin 3.4 3.1 Calcium Level 8.6 8.3 Magnesium Level 2.0 Alkaline Phosphatase 118 102 Aspartate Amino Transf (AST/SGOT) 12 7 Alanine Aminotransferase (ALT/SGPT) 19 16 Total Bilirubin 0.7 0.7 Sodium Level 141 142 Potassium Level 4.3 3.8 Chloride Level 106 109 Carbon Dioxide Level 26.4 24.3 Anion Gap 9 9 Estimat Glomerular Filtration Rate 11 11 Total Creatine Kinase 204 Creatine Kinase MB 5.4 Creatine Kinase MB % 2.6 Troponin I 0.16 0.16 B-Type Natriuretic Peptide 3100 Lipase 102 (Kizzy Elmore) Result Diagram: 06/01/174 06/01/17 0224 Imaging Last 24 hours Impressions Chest X-Ray 05/31/17 1736 Signed Impressions: Service Date/Time: Wednesday, May 31, 2017 18:23 - CONCLUSION: 1. Compensated cardiomegaly. 2. No acute abnormality or significant interval change. Tariq Reyes MD (Kizzy Elmore) Assessment and Plan Problem List: (1) Elevated troponin ICD Codes: R79.89 - Other specified abnormal findings of blood chemistry Status: Acute (2) Congestive heart failure ICD Codes: I50.9 - Heart failure, unspecified Status: Chronic (3) HTN (hypertension) ICD Codes: I10 - Essential (primary) hypertension Status: Chronic (4) Chest pain ICD Codes: R07.9 - Chest pain, unspecified Assessment and Plan This is a 51 yo F with history of HTN,HLD, DM, chronic CHF, ESRD w/ HD three times per week who developed acute onset chest pain and SOB yesterday during dialysis. chest pain lasted less than one minute per patient and has been chest pain free overnight. echo 07/2016 EF 45-50%. lexiscan 05/2016 mild reversible ischemia. NSTEMI- elevated troponin appears to be chronic likely demand mediated due to ESRD. HTN- SBP 200. consider stopping ACEi due to elevated creatinine? consider labetolol? (Kizzy Elmore) Assessment and Plan atypical CP minimal trop is chronic. lexiscan 1 year ago symptoms sound GI in etiology no need for stress test now. if GI workup negative, could consider repeat lexiscan then will sign off call with further questions (Jackson Lowe MD) Kizzy Elmore Jun 01, 2017 11:15 Jackson Lowe MD Jun 01, 2017 16:44
--- NOTE | 2017-06-01 11:34 | MB ---
cc: PARESH PAYNE MD DATE OF CONSULTATION: 06/01/2017 REASON FOR CONSULTATION: End-stage renal disease on hemodialysis for management. HISTORY OF PRESENT ILLNESS This is a 51-year-old female with past medical history of hypertension, ischemic heart disease, congestive heart failure, end-stage renal disease on hemodialysis, now twice a week, history of hyperlipidemia, depression, diabetes mellitus, was admitted with complaint of chest pain. I was called to see the patient for the management of dialysis. She has been on hemodialysis two times per week, Friday and Friday. She went for her dialysis yesterday. She has chest pain that started two to three days ago and it was intermittent, not associated with any exertion, mainly retrosternal, and relieved by itself within 2 or 3 minutes, associated with mild shortness of breath. There was no vomiting but occasionally she has nausea. There is also some abdominal cramping. The pain was increasing after eating. There is no history of diarrhea. Denies any history of fever. PAST MEDICAL HISTORY 1. Hypertension 2. Diabetes mellitus 3. Ischemic heart disease 4. Congestive heart failure 5. Hyperlipidemia 6. End-stage renal disease on hemodialysis 7. Diabetes mellitus 8. Depression. PAST SURGICAL HISTORY: 1. History of left arm A-V fistula surgery. 2. Cardiac catheterization in the past with a stent done. 3. section. REVIEW OF SYSTEMS There is no history of fever. No headache, dizziness or blurring of vision. The patient has generalized weakness, no history of fever. She has this retrosternal chest pain going on for the last [id number] days, not associated with exertion, relieved by itself within 2-3 minutes. Increased with eating. She has nausea with occasional vomiting. There is no history of diarrhea. She has mild abdominal cramping. No dysuria, hematuria. SOCIAL HISTORY: The patient is , lives with her . No alcohol. FAMILY HISTORY: Noncontributory. ALLERGIES: She is allergic to: MDRO PREGABALIN MEDICATIONS: Currently she is on the following medications: 1. Alvina-Colace one b.i.d.. 2. Carvedilol 6.25 mg b.i.d. 3. Furosemide 420 mg b.i.d. 4. Ferrous sulfate 325 mg b.i.d. 5. Clonidine 0.1 mg daily. 6. Neurontin 300 mg daily. 7. Lisinopril 20 mg once a day. 8. Nifedipine 10 mg daily. 9. Protonix 20 mg daily. 10. Heparin 5000 subcu q. 12 hours. 11. Hydralazine 50 mg q.8 h. 12. Zofran as needed. 13. [place] as needed. PHYSICAL EXAMINATION: The patient is awake, alert. She is not in acute distress. Her last blood pressure is 212/107, temperature is 98.4, oxygen saturation 94, pulse is around 71. HEENT: Pupils are mid constricted. Nonicteric sclera, conjunctiva normal. Neck: Supple. JVD is not elevated. Lungs: The patient has bilateral decreased air entry with occasional wheezing. Heart: S1-S2, regular rhythm. Abdomen: Distended, soft. There is no tenderness. Bowel sounds positive. Extremities: Mild edema. INVESTIGATIONS: WBC count is 2.7, hemoglobin 11.58, platelet count 122, neutrophils 55.1%, sodium 142. Potassium 3.8, chloride 109, bicarb 24.3, BUN 31, creatinine 4.1, glucose 152, AST 7, ALT 16, Troponin-I is 0.16. Albumin is 3.1, total protein 6.9. Lipase is 102, INR is 1.2. Chest x-ray was done which showed that she has cardiomegaly with no interval changes. ASSESSMENT/PLAN 1. Chest pain with slightly increased troponin, rule out for acute ischemia. 2. Congestive heart failure 3. Hypertension uncontrolled. 4. Diabetes mellitus 5. End-stage renal disease on dialysis. The patient has a high blood pressure and needs to have a better control. I will increase the nifedipine and the carvedilol and also increase the clonidine to t.i.d. she had her dialysis yesterday. She possibly will need to increase the dialysis three times per week. Cardiology has been consulted. Will wait for further recommendations from them. Thank you for the consultation. I will follow the patient while she is in the hospital. MD LUIS Cuellar/GERRY /10:55 AM /11:14 AM
[2017-06-01] MEDS: cloNIDine HCL 0.1 MG TAB PO SCH ×2 (13:43→18:40)
[2017-06-01] MEDS: NIFEdipine 60 MG SUSTAINED RELEASE TAB PO SCH (21:30)
[2017-06-02] VITALS (27 sets, daily range): BP systolic 140–187; BP diastolic 68–93; PULSE 56–68; RESP 18; TEMP 97.6–98.1; O2SAT 94–96
[2017-06-02] MEDS: hydrALAZINE HCL 20 MG/ML VIAL IV PUSH PRN (00:53)
[2017-06-02 04:57] LABS: AUTOMATED NEUTROPHIL # 1.3 TH/MM3 (1.8-7.7); BASOPHIL % 1.1 % (0.0-2.0); EOSINOPHIL # 0.1 TH/MM3 (0-0.4); EOSINOPHIL % 3.4 % (0.0-4.0); HEMATOCRIT 34.5 % (35.0-46.0); HEMO FLAGS DIFF FINAL; LYMPH % 27.4 % (9.0-44.0); LYMPHOCYTE # 0.6 TH/MM3 (1.0-4.8); MEAN CORPUSCULAR HEMOGLOBIN 24.9 PG (27.0-34.0); MEAN CORPUSCULAR HGB CONC 31.9 % (32.0-36.0); NEUT % 56.1 % (16.0-70.0); PLATELET COUNT 103 TH/MM3 (150-450); RED BLOOD COUNT 4.42 MIL/MM3 (4.00-5.30); WHITE BLOOD COUNT 2.3 TH/MM3 (4.0-11.0)
[2017-06-02 05:41] LABS: BICARBONATE 26.4 MEQ/L (21.0-32.0); POTASSIUM 4.1 MEQ/L (3.5-5.1)
[2017-06-02] MEDS: FERROUS SULFATE 325 MG (65 MG ELEMENTAL IRON) TAB PO SCH ×2 (06:30→16:26)
[2017-06-02] MEDS: hydrALAZINE HCL 50 MG TAB PO SCH ×3 (06:30→21:52)
[2017-06-02] MEDS: ONDANSETRON HCL 4 MG/2 ML VIAL IVP PRN (06:51)
[2017-06-02] MEDS: HEPARIN SODIUM - SQ 10,000 UNITS/ML VIAL SQ SCH ×2 (08:56→21:52)
[2017-06-02] MEDS: LISINOPRIL 20 MG TAB PO SCH (08:56)
[2017-06-02] MEDS: FUROSEMIDE 20 MG/2 ML VIAL IV PUSH SCH ×2 (08:56→16:27)
[2017-06-02] MEDS: PANTOPRAZOLE SOD 20 MG DELAYED RELEASE TAB PO SCH (08:57)
[2017-06-02] MEDS: cloNIDine HCL 0.1 MG TAB PO SCH ×3 (08:57→16:26)
[2017-06-02] MEDS: NIFEdipine 60 MG SUSTAINED RELEASE TAB PO SCH ×2 (08:57→21:52)
[2017-06-02] MEDS: GABAPENTIN 300 MG CAP PO SCH (08:57)
[2017-06-02] MEDS: CARVEDILOL 6.25 MG TAB PO SCH ×2 (08:57→21:52)
[2017-06-02] MEDS: SODIUM CHLORIDE 0.9% FLUSH 10 ML FLUSH IV FLUSH SCH ×2 (08:57→21:52)
[2017-06-02] MEDS: DOCUSATE SODIUM 50 MG/SENNA 8.6 MG TAB PO SCH ×3 (08:58→21:52)
--- NOTE | 2017-06-02 09:53 | HHI.PR ---
Subjective Remarks The patient said that she has some nausea and vomiting yesterday but is feeling better today. She no longer has chest pain. She says her dialysis has been increased to 3 times a week. She wants to eventually go back to 2 times per week. She would like to take a shower. Discussed with nursing. Objective Vitals Vital Signs Date Time Temp Pulse Resp B/P (MAP) Pulse Ox O2 Delivery O2 Flow Rate FiO2 06/02/17 09:00 66 06/02/17 08:00 62 06/02/17 07:36 97.8 60 18 147/72 (97) 94 06/02/17 07:36 94 Room Air 06/02/17 07:00 59 06/02/17 06:00 58 06/02/17 05:00 58 06/02/17 04:00 58 06/02/17 03:00 94 Nasal Cannula 2.00 06/02/17 03:00 60 06/02/17 03:00 97.8 60 18 147/72 (97) 94 06/02/17 02:00 60 06/02/17 01:00 58 06/02/17 00:00 62 06/01/17 23:00 58 06/01/17 23:00 97.8 62 16 181/93 (122) 93 06/01/17 22:00 64 06/01/17 21:00 60 06/01/17 20:00 62 06/01/17 19:00 72 06/01/17 19:00 98.0 63 16 189/91 (123) 92 06/01/17 18:00 68 06/01/17 17:00 64 06/01/17 16:00 64 06/01/17 15:00 59 06/01/17 15:00 98.5 61 18 162/82 (108) 94 06/01/17 14:00 61 06/01/17 13:00 61 06/01/17 12:00 66 06/01/17 11:00 98.7 67 16 146/74 (98) 91 06/01/17 11:00 70 06/01/17 10:00 71 I/O 06/01/17 06/01/17 06/01/17 06/02/17 06/02/17 06/02/17 07:00 15:00 23:00 07:00 15:00 23:00 Intake Total 360 ml 750 ml 720 ml Output Total 75 ml 300 ml Balance 360 ml 675 ml 420 ml Intake Oral 360 ml 750 ml 720 ml Output Urine Total 75 ml 300 ml # Voids 1 1 # Bowel Movements 0 Result Diagram: 06/02/17 0440 06/02/17 0440 Imaging Last Impressions Chest X-Ray 05/31/17 1736 Signed Impressions: Service Date/Time: Wednesday, May 31, 2017 18:23 - CONCLUSION: 1. Compensated cardiomegaly. 2. No acute abnormality or significant interval change. Tariq Reyes MD Objective Remarks GENERAL: NAD, resting comfortably. SKIN: Warm and dry. HEAD: Normocephalic. EYES: No scleral icterus. No injection or drainage. NECK: Supple, trachea midline. No JVD or lymphadenopathy. CARDIOVASCULAR: Regular rate and rhythm with II/ CONNIE. RESPIRATORY: Breath sounds equal bilaterally. No accessory muscle use. GASTROINTESTINAL: Abdomen soft, non-tender, nondistended. MUSCULOSKELETAL: No cyanosis, Trace edema LLE. BACK: Nontender without obvious deformity. No CVA tenderness. NEURO: No gross deficits. PSYCH: Mood and affect appropriate. Medications and IVs Current Medications Medications (Trade) Dose Ordered Sig/Christa Route Start Time Stop Time Status Last Admin (Lasix Inj) 20 mg BID@18 IV PUSH 06/01/17 09:00 06/02/17 08:56 (NS Flush) 2 ml UNSCH PRN IV FLUSH 05/31/17 19:45 (NS Flush) 2 ml BID IV FLUSH 05/31/17 21:00 06/02/17 08:57 (Zofran Inj) 4 mg Q6H PRN IVP 05/31/17 19:45 06/02/17 06:51 (Heparin Inj) 5,000 units Q12H SQ 06/01/17 09:00 06/02/17 08:56 (Tylenol) 650 mg Q6H PRN PO 05/31/17 19:45 06/01/17 04:14 ([place] 5-325 Mg) 1 tab Q4H PRN PO 05/31/17 19:45 (Morphine Inj) 2 mg Q3H PRN IV 05/31/17 20:00 (Alvina-Colace) 1 tab BID PO 05/31/17 21:00 05/31/17 21:07 (Milk Of Magnesia Liq) 30 ml Q12H PRN PO 05/31/17 19:45 (Senokot) 17.2 mg Q12H PRN PO 05/31/17 19:45 (Dulcolax Supp) 10 mg DAILY PRN RECTAL 05/31/17 19:45 (Lactulose Liq) 30 ml DAILY PRN PO 05/31/17 19:45 (Neurontin) 300 mg DAILY PO 06/01/17 09:00 06/02/17 08:57 (Prinivil) 20 mg DAILY PO 06/01/17 09:00 06/02/17 08:56 (Ferrous Sulfate) 325 mg BIDAC PO 06/01/17 07:00 06/02/17 06:30 (Protonix) 20 mg DAILY PO 06/01/17 09:00 06/02/17 08:57 (Nitroglycerin 2% Oint) 0.5 inch Q6HR PRN TOPICAL 05/31/17 23:15 (Apresoline Inj) 10 mg Q6H PRN IV PUSH 06/01/17 01:00 06/02/17 00:53 (Apresoline) 50 mg Q8HR PO 06/01/17 09:00 06/02/17 06:30 (Coreg) 12.5 mg BID PO 06/01/17 21:00 06/02/17 08:57 (Catapres) 0.1 mg TID PO 06/01/17 13:00 06/02/17 08:57 (Procardia Xl) 60 mg Q12HR PO 06/01/17 21:00 06/02/17 08:57 A/P Problem List: (1) Chest pain ICD Code: R07.9 - Chest pain, unspecified (2) CHF (congestive heart failure) ICD Code: I50.9 - Heart failure, unspecified (3) Elevated troponin ICD Code: R79.89 - Other specified abnormal findings of blood chemistry Status: Acute (4) HTN (hypertension) ICD Code: I10 - Essential (primary) hypertension Status: Chronic (5) ESRD (end stage renal disease) on dialysis ICD Code: N18.6 - End stage renal disease; Z99.2 - Dependence on renal dialysis Status: Chronic Assessment and Plan Chest Pain Cardiology consult appreciated. Trops chronically elevated. - continue cardiac regimen. - stress test if chest pain recurs. CHF Acute on chronic systolic CHF. Echo 07/24/16 w/ EF 45-50%, BNP 3100, CXR w/ cardiomegaly. - Continue Lasix IV, monitor I/O. - Likely needs additional HD for volume overload. ESRD On HD T//. Follows w/ Dr. Medley. - dialysis per nephrology. HTN Uncontrolled initially. Improved. - continue nifedipine, Coreg, clonidine, lisinopril and hydralazine. Pancytopenia Unsure of etiology, possibly ESRD. - follow CBC. DVT Prophylaxis: Heparin sq Discharge Planning Anticipate d/c home in 1-2 days Grady Méndez DO Jun 02, 2017 09:53
--- NOTE | 2017-06-02 17:17 | HHI.NPPN ---
Subjective History of Present Illness 51-year-old female with past medical history of hypertension, ischemic heart disease, congestive heart failure, end-stage renal disease on hemodialysis, now twice a week, history of hyperlipidemia, depression, diabetes mellitus, was admitted with complaint of chest pain. I was called to see the patient for the management of dialysis. She has been on hemodialysis two times per week, Friday and Friday. Additional Remarks Patient is alert, no chest pain now, has mild SOB. Review of Systems General Constitutional: Fatigue Respiratory Lungs: SOB Cardiovascular Cardiac: Chest Pain, Edema, CRUZ Objective Data Data 06/02/17 06/03/17 19:00 07:00 Intake Total 720 ml Balance 720 ml Intake Oral 720 ml # Voids 3 Vital Signs Date Time Temp Pulse Resp B/P (MAP) Pulse Ox O2 Delivery O2 Flow Rate FiO2 06/02/17 17:00 59 06/02/17 16:00 62 06/02/17 15:50 98.0 59 18 140/68 (92) 96 06/02/17 15:50 96 Room Air 06/02/17 15:00 58 06/02/17 14:00 60 06/02/17 13:00 68 06/02/17 12:00 62 06/02/17 11:24 94 Room Air 06/02/17 11:24 98.1 67 18 187/93 (124) 94 06/02/17 11:00 66 06/02/17 10:00 63 06/02/17 09:00 66 06/02/17 08:00 62 06/02/17 07:36 97.8 60 18 147/72 (97) 94 06/02/17 07:36 94 Room Air 06/02/17 07:00 59 06/02/17 06:00 58 06/02/17 05:00 58 06/02/17 04:00 58 06/02/17 03:00 94 Nasal Cannula 2.00 06/02/17 03:00 60 06/02/17 03:00 97.8 60 18 147/72 (97) 94 06/02/17 02:00 60 06/02/17 01:00 58 06/02/17 00:00 62 06/01/17 23:00 58 06/01/17 23:00 97.8 62 16 181/93 (122) 93 06/01/17 22:00 64 06/01/17 21:00 60 06/01/17 20:00 62 06/01/17 19:00 72 06/01/17 19:00 98.0 63 16 189/91 (123) 92 06/01/17 18:00 68 -: 06/02/17 0440 06/02/17 0440 Physical Exam General Appearance: No Acute Distress, Comfortable Eyes Eye Exam: Pupils Equal Throat Throat Exam: Oral Mucosa [place] & Moist Pulmonary Resp Exam: Breath Sounds Equal, No Distress, Rhonchi, Decreased Bases Cardiology CV Exam: Regular, Normal Sinus Rhythm Gastrointestinal/Abdomen GI Exam: Soft, Non-Tender, Bowel Sounds Present Extremeties Extremities Exam: Moderate Edema, Pitting Edema Neurologic Neuro Exam: Alert, Awake, Oriented Psychiatric Psych Exam: Appropriate Responses Assessment/Plan Assessment Summary: Anemia of CKD, CHF, Hypertension, End Stage Renal Disease Problem List: (1) Diabetes ICD Codes: E11.9 - Type 2 diabetes mellitus without complications Status: Chronic (2) HTN (hypertension) ICD Codes: I10 - Essential (primary) hypertension Status: Chronic (3) Congestive heart failure ICD Codes: I50.9 - Heart failure, unspecified Status: Chronic (4) Elevated troponin ICD Codes: R79.89 - Other specified abnormal findings of blood chemistry Status: Acute (5) Chest pain ICD Codes: R07.9 - Chest pain, unspecified (6) ESRD (end stage renal disease) on dialysis ICD Codes: N18.6 - End stage renal disease; Z99.2 - Dependence on renal dialysis Status: Chronic Plan Patient has now no chest pain. Cardiology follow up noted. BP is stable, HD will be in AM. Creatinine is elevated, possibly will need 3 times a week HD. Remove fluid with HD as tolerated. Possible D/C after HD tomorrow. Mia Medley MD Jun 02, 2017 17:17
[2017-06-03] VITALS (18 sets, daily range): BP systolic 141–189; BP diastolic 72–92; PULSE 54–66; RESP 17–19; TEMP 97.7–98.2; O2SAT 92–97
[2017-06-03] MEDS: hydrALAZINE HCL 50 MG TAB PO SCH ×2 (06:11→13:19)
[2017-06-03] MEDS: FERROUS SULFATE 325 MG (65 MG ELEMENTAL IRON) TAB PO SCH ×2 (06:11→16:00)
[2017-06-03 06:25] LABS: HEMATOCRIT 34.9 % (35.0-46.0); MEAN CORPUSCULAR HEMOGLOBIN 24.9 PG (27.0-34.0); PLATELET COUNT 112 TH/MM3 (150-450); RED BLOOD COUNT 4.48 MIL/MM3 (4.00-5.30); REVIEW FLAG FINAL; WHITE BLOOD COUNT 2.9 TH/MM3 (4.0-11.0)
[2017-06-03 06:57] LABS: BICARBONATE 25.2 MEQ/L (21.0-32.0); POTASSIUM 4.6 MEQ/L (3.5-5.1)
[2017-06-03] MEDS: HEPARIN SODIUM - SQ 10,000 UNITS/ML VIAL SQ SCH (09:00)
[2017-06-03] MEDS: SODIUM CHLORIDE 0.9% FLUSH 10 ML FLUSH IV FLUSH SCH (09:00)
[2017-06-03] MEDS: DOCUSATE SODIUM 50 MG/SENNA 8.6 MG TAB PO SCH (09:00)
--- NOTE | 2017-06-03 10:08 | HHI.NPPN ---
Subjective History of Present Illness 51-year-old female with past medical history of hypertension, ischemic heart disease, congestive heart failure, end-stage renal disease on hemodialysis, now twice a week, history of hyperlipidemia, depression, diabetes mellitus, was admitted with complaint of chest pain. I was called to see the patient for the management of dialysis. She has been on hemodialysis two times per week, Friday and Friday. Additional Remarks Patient is alert, no chest pain, no SOB, on HD now. Review of Systems General Constitutional: Fatigue Respiratory Lungs: SOB Cardiovascular Cardiac: Chest Pain, Edema, CRUZ Objective Data Data Vital Signs Date Time Temp Pulse Resp B/P (MAP) Pulse Ox O2 Delivery O2 Flow Rate FiO2 06/03/17 07:44 98.2 62 17 141/72 (95) 95 06/03/17 06:04 57 06/03/17 05:00 55 06/03/17 04:00 55 06/03/17 03:00 54 06/03/17 03:00 97 Nasal Cannula 2.00 06/03/17 03:00 97.7 55 18 146/80 (102) 97 06/03/17 02:00 54 06/03/17 01:00 54 06/03/17 00:00 54 06/02/17 23:00 56 06/02/17 23:00 98.0 58 18 152/79 (103) 96 06/02/17 23:00 95 Nasal Cannula 2.00 06/02/17 22:00 56 06/02/17 21:00 56 06/02/17 20:00 56 06/02/17 19:00 97.6 57 18 142/74 (96) 94 06/02/17 19:00 58 06/02/17 19:00 94 Nasal Cannula 2.00 06/02/17 18:00 64 06/02/17 17:00 59 06/02/17 16:00 62 06/02/17 15:50 98.0 59 18 140/68 (92) 96 06/02/17 15:50 96 Room Air 06/02/17 15:00 58 06/02/17 14:00 60 06/02/17 13:00 68 06/02/17 12:00 62 06/02/17 11:24 94 Room Air 06/02/17 11:24 98.1 67 18 187/93 (124) 94 06/02/17 11:00 66 -: 06/03/17 0607 06/03/17 0607 Physical Exam General Appearance: No Acute Distress, Comfortable Eyes Eye Exam: Pupils Equal Throat Throat Exam: Oral Mucosa [place] & Moist Pulmonary Resp Exam: Breath Sounds Equal, No Distress, Rhonchi, Decreased Bases Cardiology CV Exam: Regular, Normal Sinus Rhythm Gastrointestinal/Abdomen GI Exam: Soft, Non-Tender, Bowel Sounds Present Extremeties Extremities Exam: Moderate Edema, Pitting Edema Neurologic Neuro Exam: Alert, Awake, Oriented Psychiatric Psych Exam: Appropriate Responses Assessment/Plan Assessment Summary: Anemia of CKD, CHF, Hypertension, End Stage Renal Disease Problem List: (1) Diabetes ICD Codes: E11.9 - Type 2 diabetes mellitus without complications Status: Chronic (2) HTN (hypertension) ICD Codes: I10 - Essential (primary) hypertension Status: Chronic (3) Congestive heart failure ICD Codes: I50.9 - Heart failure, unspecified Status: Chronic (4) Elevated troponin ICD Codes: R79.89 - Other specified abnormal findings of blood chemistry Status: Acute (5) Chest pain ICD Codes: R07.9 - Chest pain, unspecified (6) ESRD (end stage renal disease) on dialysis ICD Codes: N18.6 - End stage renal disease; Z99.2 - Dependence on renal dialysis Status: Chronic Plan Patient has now no chest pain. Cardiology follow up noted. BP is stable, Creatinine is elevated, possibly will need 3 times a week HD. Remove fluid with HD as tolerated. HD now, follow the BP as out patient. Told top restrict oral fluids. Mia Medley MD Jun 03, 2017 10:08
--- NOTE | 2017-06-03 10:58 | HHI.PR ---
Subjective Remarks The patient was in dialysis. She had no acute complaints. She denied any abdominal pain or chest pain. She was breathing comfortably. Discussed with nursing. Objective Vitals Vital Signs Date Time Temp Pulse Resp B/P (MAP) Pulse Ox O2 Delivery O2 Flow Rate FiO2 06/03/17 07:44 98.2 62 17 141/72 (95) 95 06/03/17 07:40 94 Room Air 06/03/17 06:04 57 06/03/17 05:00 55 06/03/17 04:00 55 06/03/17 03:00 54 06/03/17 03:00 97 Nasal Cannula 2.00 06/03/17 03:00 97.7 55 18 146/80 (102) 97 06/03/17 02:00 54 06/03/17 01:00 54 06/03/17 00:00 54 06/02/17 23:00 95 Nasal Cannula 2.00 06/02/17 23:00 56 06/02/17 23:00 98.0 58 18 152/79 (103) 96 06/02/17 23:00 95 Nasal Cannula 2.00 06/02/17 22:00 56 06/02/17 21:00 56 06/02/17 20:00 56 06/02/17 19:00 97.6 57 18 142/74 (96) 94 06/02/17 19:00 58 06/02/17 19:00 94 Nasal Cannula 2.00 06/02/17 18:00 64 06/02/17 17:00 59 06/02/17 16:00 62 06/02/17 15:50 98.0 59 18 140/68 (92) 96 06/02/17 15:50 96 Room Air 06/02/17 15:00 58 06/02/17 14:00 60 06/02/17 13:00 68 06/02/17 12:00 62 06/02/17 11:24 94 Room Air 06/02/17 11:24 98.1 67 18 187/93 (124) 94 06/02/17 11:00 66 I/O 06/02/17 06/02/17 06/02/17 06/03/17 06/03/17 06/03/17 07:00 15:00 23:00 07:00 15:00 23:00 Intake Total 720 ml 720 ml 480 ml Output Total 300 ml 300 ml Balance 420 ml 720 ml 180 ml Intake Oral 720 ml 720 ml 480 ml Output Urine Total 300 ml 300 ml # Voids 3 Result Diagram: 06/03/17 0607 06/03/17 06 Imaging Last Impressions Chest X-Ray 05/31/17 1736 Signed Impressions: Service Date/Time: Wednesday, May 31, 2017 18:23 - CONCLUSION: 1. Compensated cardiomegaly. 2. No acute abnormality or significant interval change. Tariq Reyes MD Objective Remarks GENERAL: NAD, resting comfortably. SKIN: Warm and dry. HEAD: Normocephalic. EYES: No scleral icterus. No injection or drainage. NECK: Supple, trachea midline. No JVD or lymphadenopathy. CARDIOVASCULAR: Regular rate and rhythm with II/ CONNIE. RESPIRATORY: Breath sounds equal bilaterally. No accessory muscle use. GASTROINTESTINAL: Abdomen soft, generalized mild tenderness to palpation, nondistended. MUSCULOSKELETAL: No cyanosis, Trace edema LLE. BACK: Nontender without obvious deformity. No CVA tenderness. NEURO: No gross deficits. PSYCH: Mood and affect appropriate. Medications and IVs Current Medications Medications (Trade) Dose Ordered Sig/Christa Route Start Time Stop Time Status Last Admin (NS Flush) 2 ml UNSCH PRN IV FLUSH 05/31/17 19:45 (NS Flush) 2 ml BID IV FLUSH 05/31/17 21:00 06/02/17 21:52 (Zofran Inj) 4 mg Q6H PRN IVP 05/31/17 19:45 06/02/17 06:51 (Heparin Inj) 5,000 units Q12H SQ 06/01/17 09:00 06/02/17 21:52 (Tylenol) 650 mg Q6H PRN PO 05/31/17 19:45 06/01/17 04:14 ([place] 5-325 Mg) 1 tab Q4H PRN PO 05/31/17 19:45 (Morphine Inj) 2 mg Q3H PRN IV 05/31/17 20:00 (Alvina-Colace) 1 tab BID PO 05/31/17 21:00 05/31/17 21:07 (Milk Of Magnesia Liq) 30 ml Q12H PRN PO 05/31/17 19:45 (Senokot) 17.2 mg Q12H PRN PO 05/31/17 19:45 (Dulcolax Supp) 10 mg DAILY PRN RECTAL 05/31/17 19:45 (Lactulose Liq) 30 ml DAILY PRN PO 05/31/17 19:45 (Neurontin) 300 mg DAILY PO 06/01/17 09:00 06/02/17 08:57 (Prinivil) 20 mg DAILY PO 06/01/17 09:00 06/02/17 08:56 (Ferrous Sulfate) 325 mg BIDAC PO 06/01/17 07:00 06/03/17 06:11 (Protonix) 20 mg DAILY PO 06/01/17 09:00 06/02/17 08:57 (Nitroglycerin 2% Oint) 0.5 inch Q6HR PRN TOPICAL 05/31/17 23:15 (Apresoline Inj) 10 mg Q6H PRN IV PUSH 06/01/17 01:00 06/02/17 00:53 (Apresoline) 50 mg Q8HR PO 06/01/17 09:00 06/03/17 06:11 (Coreg) 12.5 mg BID PO 06/01/17 21:00 06/02/17 21:52 (Catapres) 0.1 mg TID PO 06/01/17 13:00 06/02/17 16:26 (Procardia Xl) 60 mg Q12HR PO 06/01/17 21:00 06/02/17 21:52 A/P Problem List: (1) Chest pain ICD Code: R07.9 - Chest pain, unspecified (2) CHF (congestive heart failure) ICD Code: I50.9 - Heart failure, unspecified (3) Elevated troponin ICD Code: R79.89 - Other specified abnormal findings of blood chemistry Status: Acute (4) HTN (hypertension) ICD Code: I10 - Essential (primary) hypertension Status: Chronic (5) ESRD (end stage renal disease) on dialysis ICD Code: N18.6 - End stage renal disease; Z99.2 - Dependence on renal dialysis Status: Chronic Assessment and Plan Chest Pain Cardiology consult appreciated. Trops chronically elevated. - continue cardiac regimen. - stress test if chest pain recurs. Outpatient follow-up. CHF Acute on chronic systolic CHF. Echo 07/24/16 w/ EF 45-50%, BNP 3100, CXR w/ cardiomegaly. - monitor I/O. - Likely needs additional HD for volume overload. ESRD On HD T//. Follows w/ Dr. Medley. - dialysis per nephrology. HTN Uncontrolled initially. Improved. - continue nifedipine, Coreg, clonidine, lisinopril and hydralazine. Pancytopenia Unsure of etiology, possibly ESRD. - follow CBC. - Hematology consult requested. DVT Prophylaxis: Heparin sq Discharge Planning Anticipate d/c home in 1-2 days Grady Méndez DO Jun 03, 2017 10:58
[2017-06-03] MEDS: cloNIDine HCL 0.1 MG TAB PO SCH ×3 (11:43→18:00)
[2017-06-03] MEDS: GABAPENTIN 300 MG CAP PO SCH (13:18)
[2017-06-03] MEDS: CARVEDILOL 6.25 MG TAB PO SCH (13:19)
[2017-06-03] MEDS: PANTOPRAZOLE SOD 20 MG DELAYED RELEASE TAB PO SCH (13:19)
[2017-06-03] MEDS: NIFEdipine 60 MG SUSTAINED RELEASE TAB PO SCH (13:19)
[2017-06-03] MEDS: LISINOPRIL 20 MG TAB PO SCH (13:19)
[2017-06-03 15:34] LABS: INDIRECT BILIRUBIN 0.4 MG/DL (0.0-0.8); TOTAL BILIRUBIN ADULT 0.5 MG/DL (0.2-1.0)
[2017-06-03] MEDS: ONDANSETRON HCL 4 MG/2 ML VIAL IVP PRN (16:14)
[2017-06-03] MEDS: hydrALAZINE HCL 20 MG/ML VIAL IV PUSH PRN (16:14)
[2017-06-03] MEDS ORDERED: HYDR-3800 PO (17:23)
[2017-06-03] MEDS ORDERED: CLON.1 PO (17:23)
[2017-06-03] MEDS ORDERED: NIFE60TA8 PO (17:23)
[2017-06-03] MEDS ORDERED: CARV6.25 PO (17:23)
--- NOTE | 2017-06-03 17:24 | HHI.DCPOC ---
Discharge Care Plan Diagnosis: (1) Abdominal pain (2) Pancytopenia (3) Elevated troponin (4) Congestive heart failure (5) ESRD (end stage renal disease) on dialysis (6) HTN (hypertension) (7) Chest pain (8) Nausea & vomiting Goals to Promote Your Health * To prevent worsening of your condition and complications * To maintain your health at the optimal level Directions to Meet Your Goals Take your medications as prescribed Follow your dietary instruction Follow activity as directed Keep your appointments as scheduled Take your immunizations and boosters as scheduled If your symptoms worsen call your PCP, if no PCP go to Urgent Care Center or Emergency Room Smoking is Dangerous to Your Health. Avoid second hand smoke Call the 24-hour hour crisis hotline for domestic abuse at Grady Méndez DO Jun 03, 2017 17:24
--- NOTE | 2017-06-03 17:30 | HHI.DS ---
Discharge Summary Admission Date Jun 02, 2017 at 15:02 Discharge Date: Jun 03, 2017 Admitting Diagnosis acute CHF exacerbation, positive troponin (1) Chest pain ICD Code: R07.9 - Chest pain, unspecified (2) CHF (congestive heart failure) ICD Code: I50.9 - Heart failure, unspecified (3) Elevated troponin ICD Code: R79.89 - Other specified abnormal findings of blood chemistry Status: Acute (4) HTN (hypertension) ICD Code: I10 - Essential (primary) hypertension Status: Chronic (5) ESRD (end stage renal disease) on dialysis ICD Code: N18.6 - End stage renal disease; Z99.2 - Dependence on renal dialysis Status: Chronic (6) Abdominal pain ICD Code: R10.9 - Unspecified abdominal pain Diagnosis: Principal (7) Pancytopenia ICD Code: D61.818 - Other pancytopenia Diagnosis: Principal (8) Nausea & vomiting ICD Code: R11.2 - Nausea with vomiting, unspecified Diagnosis: Principal Status: Acute (9) Elevated troponin ICD Code: R79.89 - Other specified abnormal findings of blood chemistry Diagnosis: Principal Status: Acute Procedures None Brief History - From Admission This is a 51-year-old female with a PMH of HTN, Hyperlipidemia, Depression, DM, CHF (Echo 07/24/16 w/ EF 45-50%) and ESRD on HD who was brought to the ER secondary to c/o chest pain starting earlier today. States she was at HD today and had acute onset of chest pain, however able to complete HD without problems. Denies fever, chills or cough. On arrival, BP 228/110, HR 64, O2 sat 98% on RA, Afebrile. CBC at baseline. Creatinine 4.12, previously 4.05 on 05/13/17. Troponin 0.16, per review of labs chronically elevated, previously 0.18 on 05/13/17. BNP 3100. INR 1.2. CXR with cardiomegaly, no acute changes. CBC/BMP: 06/03/17 0607 06/03/17 0607 Significant Findings Laboratory Tests Test 05/31/17 18:15 06/01/17 02:24 06/01/17 12:23 06/02/17 04:40 White Blood Count 3.1 TH/MM3 (4.0-11.0) 2.7 TH/MM3 (4.0-11.0) 2.3 TH/MM3 (4.0-11.0) Mean Corpuscular Volume 78.4 FL (80.0-100.0) 77.5 FL (80.0-100.0) 78.0 FL (80.0-100.0) Mean Corpuscular Hemoglobin 25.1 PG (27.0-34.0) 24.5 PG (27.0-34.0) 24.9 PG (27.0-34.0) Red Cell Distribution Width 20.4 % (11.6-17.2) 20.4 % (11.6-17.2) 20.0 % (11.6-17.2) Platelet Count 107 TH/MM3 (150-450) 122 TH/MM3 (150-450) 103 TH/MM3 (150-450) Monocytes (%) (Auto) 9.3 % (0.0-8.0) 11.7 % (0.0-8.0) 12.0 % (0.0-8.0) Eosinophils (%) (Auto) 4.5 % (0.0-4.0) 5.2 % (0.0-4.0) Lymphocytes # (Auto) 0.9 TH/MM3 (1.0-4.8) 0.7 TH/MM3 (1.0-4.8) 0.6 TH/MM3 (1.0-4.8) Platelet Estimate LOW (NORMAL) Ovalocytes 1+ (NORMAL) Prothrombin Time 12.3 SEC (9.8-11.6) Activated Partial Thromboplast Time 22.7 SEC (24.3-30.1) Blood Urea Nitrogen 29 MG/DL (7-18) 31 MG/DL (7-18) 40 MG/DL (7-18) Creatinine 4.12 MG/DL (0.50-1.00) 4.17 MG/DL (0.50-1.00) 5.25 MG/DL (0.50-1.00) Random Glucose 156 MG/DL (74-106) 152 MG/DL (74-106) 140 MG/DL (74-106) Alkaline Phosphatase 118 U/L (45-117) Aspartate Amino Transf (AST/SGOT) 12 U/L (15-37) 7 U/L (15-37) Estimat Glomerular Filtration Rate 11 ML/MIN (>89) 11 ML/MIN (>89) 9 ML/MIN (>89) Total Creatine Kinase 204 U/L (26-192) Creatine Kinase MB 5.4 NG/ML (0.5-3.6) Troponin I 0.16 NG/ML (0.02-0.05) 0.16 NG/ML (0.02-0.05) 0.16 NG/ML (0.02-0.05) B-Type Natriuretic Peptide 3100 PG/ML (0-100) Hemoglobin 11.5 GM/DL (11.6-15.3) 11.0 GM/DL (11.6-15.3) Mean Corpuscular Hemoglobin Concent 31.6 % (32.0-36.0) 31.9 % (32.0-36.0) Neutrophils # (Auto) 1.5 TH/MM3 (1.8-7.7) 1.3 TH/MM3 (1.8-7.7) Albumin 3.1 GM/DL (3.4-5.0) Calcium Level 8.3 MG/DL (8.5-10.1) 8.0 MG/DL (8.5-10.1) Chloride Level 109 MEQ/L (98-107) Hematocrit 34.5 % (35.0-46.0) Test 06/03/17 06:07 White Blood Count 2.9 TH/MM3 (4.0-11.0) Hemoglobin 11.2 GM/DL (11.6-15.3) Hematocrit 34.9 % (35.0-46.0) Mean Corpuscular Volume 78.0 FL (80.0-100.0) Mean Corpuscular Hemoglobin 24.9 PG (27.0-34.0) Red Cell Distribution Width 20.0 % (11.6-17.2) Platelet Count 112 TH/MM3 (150-450) Blood Urea Nitrogen 45 MG/DL (7-18) Creatinine 5.80 MG/DL (0.50-1.00) Random Glucose 138 MG/DL (74-106) Calcium Level 7.9 MG/DL (8.5-10.1) Estimat Glomerular Filtration Rate 8 ML/MIN (>89) Aspartate Amino Transf (AST/SGOT) 4 U/L (15-37) Albumin 2.8 GM/DL (3.4-5.0) Imaging Last Impressions Chest X-Ray 05/31/17 [id number] Signed Impressions: Service Date/Time: Wednesday, May 31, 2017 18:23 - CONCLUSION: 1. Compensated cardiomegaly. 2. No acute abnormality or significant interval change. Tariq Reyes MD PE at Discharge GENERAL: NAD, resting comfortably. SKIN: Warm and dry. HEAD: Normocephalic. EYES: No scleral icterus. No injection or drainage. NECK: Supple, trachea midline. No JVD or lymphadenopathy. CARDIOVASCULAR: Regular rate and rhythm with II/ CONNIE. RESPIRATORY: Breath sounds equal bilaterally. No accessory muscle use. GASTROINTESTINAL: Abdomen soft, generalized mild tenderness to palpation, nondistended. MUSCULOSKELETAL: No cyanosis, Trace edema LLE. BACK: Nontender without obvious deformity. No CVA tenderness. NEURO: No gross deficits. PSYCH: Mood and affect appropriate. Hospital Course Chest pain/ Elevated troponins Cardiology was consulted. Trops are chronically elevated. She was continued on her cardiac regimen. Symptoms resolved. Thought to be GI in origin. She will follow up with cardiology and GI as an outpt. CHF Acute on chronic systolic CHF. Echo 07/24/16 w/ EF 45-50%, BNP 3100, CXR w/ cardiomegaly. We monitored her I/Os. She received volume management via dialysis. ESRD On HD T/. Follows w/ Dr. Medley. She received dialysis per nephrology. HTN We increased her nifedipine, Coreg, clonidine and hydralazine. She was continued on lisinopril. Pancytopenia CBC remained stable. Hematology was contacted to discuss if the pt may be followed up as an outpt. She was deemed a safe discharge and will follow up with hematology as an outpt. She will repeat a CBC in 3-5 days. Pt Condition on Discharge: Stable Discharge Disposition: Discharge Home Discharge Time: > 30 minutes Discharge Instructions DIET: Follow Instructions for: Renal Failure Diet Activities you can perform: Weight Bearing as [place] Follow up Referrals: Cardiology - [address] Lowe Gastroenterology - 2 Weeks Nephrology - [address] Medley Oncology/Hematology - 1 Week PCP Follow-up - 1 Week New Orders: CBC WITH DIFF - 3-5 Days New Medications: Carvedilol (Coreg) 6.25 Mg Tab 12.5 MG PO BID for Blood Pressure Management, #120 TAB Clonidine (Catapres) 0.1 Mg Tab 0.1 MG PO TID for Blood Pressure Management, #90 TAB Hydralazine HCl (Hydralazine HCl) 50 Mg Tablet 50 MG PO Q8HR for Blood Pressure Management, #90 TAB Nifedipine ER 24 HR (Nifedipine ER 24 HR) 60 Mg Tab 60 MG PO Q12HR for Blood Pressure Management, #60 TAB Continued Medications: Ferrous Sulfate DR (Ferrous Sulfate DR) 325 Mg Tabdr 1 TAB PO BID Furosemide (Lasix) 20 Mg Tab 20 MG PO BID, #60 TAB 0 Refills Gabapentin (Neurontin) 300 Mg Cap 300 MG PO DAILY, #30 CAP 1 Refill Lisinopril (Lisinopril) 20 Mg Tab 20 MG PO DAILY, #30 TAB 0 Refills Omeprazole (Omeprazole) 20 Mg Tab 20 MG PO DAILY, #30 TAB 0 Refills Discontinued Medications: Carvedilol (Coreg) 6.25 Mg Tab 6.25 MG PO BID, #60 TAB 0 Refills Clonidine (Clonidine) 0.1 Mg Tab 0.1 MG PO DAILY for Blood Pressure Management, #60 TAB 0 Refills Nifedipine (Nifedipine) 10 Mg Cap 10 MG PO DAILY for Chest Pain, #120 CAP 0 Refills Grady Méndez DO Jun 03, 2017 17:30
== END 2017-06-03 18:25 | disposition home or self-care (01) | DRG 291 ==
LOC: NEPE 16:57 → NEDA 19:32 → HCPC 06-01 00:10 → OBSVTOIN 06-02 15:02
PROVIDERS: ADMIT Hospitalist; ATTEND Hospitalist
PROC: 5A1D70Z Performance of Urinary Filtration, Intermittent, Less than 6 Hours Per Day (ICD-10-PCS; principal; 2017-06-02)
DX: I13.2 Hypertensive heart and chronic kidney disease with heart failure and with stage 5 chronic kidney disease, or end stage renal disease (principal); I50.23 Acute on chronic systolic (congestive) heart failure; D61.818 Other pancytopenia; N18.6 End stage renal disease; E11.22 Type 2 diabetes mellitus with diabetic chronic kidney disease; E78.5 Hyperlipidemia, unspecified; I25.9 Chronic ischemic heart disease, unspecified; D63.1 Anemia in chronic kidney disease; R74.8 Abnormal levels of other serum enzymes; K21.9 Gastro-esophageal reflux disease without esophagitis; G47.30 Sleep apnea, unspecified; F32.9 Major depressive disorder, single episode, unspecified; Z86.14 Personal history of Methicillin resistant Staphylococcus aureus infection; Z86.73 Personal history of transient ischemic attack (TIA), and cerebral infarction without residual deficits; Z95.5 Presence of coronary angioplasty implant and graft; Z99.2 Dependence on renal dialysis
CPT/HCPCS: 71010; 80048; 80053; 80076; 82550; 82552; 82948; 83690; 83735; 83880; 84484; 85025; 85027; 85610; 85730; 90935; 93005; 96372; 96374; 96375; 96376; G0378; J0360; J1644; J1940; J2405

== ENCOUNTER 2017-08-18 13:54 | Emergency (ER) | payer OTHER, MEDICARE ==
[~2017-08-18 13:54] MED LIST changes: -CLIN300C5 PO; +CLON.1 PO; -CLON0.1T PO; +HYDR-3800 PO; -LEVEMIR SQ; -NIFE10CA PO; +NIFE60TA8 PO
[2017-08-18 14:34] VITALS: BP 168/79; PULSE 67; RESP 18; TEMP 97.8; O2SAT 97
[2017-08-18 16:42] LABS: AUTOMATED NEUTROPHIL # 3.4 TH/MM3 (1.8-7.7); BASOPHIL # 0.1 TH/MM3 (0-0.2); BASOPHIL % 1.1 % (0.0-2.0); EOSINOPHIL # 0.1 TH/MM3 (0-0.4); HEMATOCRIT 38.2 % (35.0-46.0); HEMOGLOBIN 12.7 GM/DL (11.6-15.3); LYMPH % 16.4 % (9.0-44.0); LYMPHOCYTE # 0.8 TH/MM3 (1.0-4.8); MEAN CELL VOLUME 80.9 FL (80.0-100.0); MEAN CORPUSCULAR HEMOGLOBIN 26.9 PG (27.0-34.0); MEAN CORPUSCULAR HGB CONC 33.3 % (32.0-36.0); MEAN PLATELET VOLUME 9.8 FL (7.0-11.0); MONOCYTE # 0.5 TH/MM3 (0-0.9); NEUT % 70.5 % (16.0-70.0); PLATELET COUNT 154 TH/MM3 (150-450); RED BLOOD COUNT 4.73 MIL/MM3 (4.00-5.30); RED CELL DISTRIBUTION WIDTH 16.8 % (11.6-17.2); WHITE BLOOD COUNT 4.8 TH/MM3 (4.0-11.0)
[2017-08-18 16:50] LABS: INTERNATIONAL NORMALIZED RATIO 1.2 RATIO
[2017-08-18 17:02] LABS: ALBUMIN 3.7 GM/DL (3.4-5.0); AST (GOT) 12 U/L (15-37); BICARBONATE 21.3 MEQ/L (21.0-32.0); BLOOD UREA NITROGEN 80 MG/DL (7-18); CALCIUM 8.6 MG/DL (8.5-10.1); CHLORIDE 106 MEQ/L (98-107); CREATININE 8.49 MG/DL (0.50-1.00); GLOMERULAR FILTRATION RATE 5 ML/MIN (>89); GLUCOSE,RANDOM 116 MG/DL (74-106); SODIUM (NA) 141 MEQ/L (136-145)
[2017-08-18 17:03] LABS: ALT (GPT) 30 U/L (10-53)
[2017-08-18 17:06] LABS: ALKALINE PHOSPHATASE 102 U/L (45-117); TOTAL BILIRUBIN ADULT 0.7 MG/DL (0.2-1.0)
--- NOTE | 2017-08-18 21:13 | PD ---
HPI Chief Complaint: GI Complaint Time Seen by Provider: 14:33 Travel History International Travel<30 days: No Contact w/Intl Traveler<30days: No Traveled to known affect area: No History of Present Illness HPI 51-year-old female history of end-stage renal disease on dialysis Friday, , Friday, presents emergency department for evaluation of vomiting 5 days. She has developed diarrhea today. Patient was unable to get dialysis on Friday due to her not feeling well. Denies any fever or chills. Moderate abdominal pain mostly epigastric in nature. Does feel tired and weak. No other symptoms to report. PFSH Past Medical History Hx Anticoagulant Therapy: Yes Arthritis: No Asthma: No Autoimmune Disease: No Blood Disorders: No Anxiety: Yes Depression: Yes Heart Rhythm Problems: No Cancer: No Cardiovascular Problems: Yes High Cholesterol: Yes Chemotherapy: No Chest Pain: No Congestive Heart Failure: Yes COPD: No Cerebrovascular Accident: Yes Diabetes: Yes Diminished Hearing: No Endocrine: Yes GERD: Yes Genitourinary: Yes (ESRD WITH DIALYSIS t/sat) Hepatitis: No Hiatal Hernia: No Hypertension: Yes Immune Disorder: No Implanted Vascular Access Dvce: Yes Kidney Stones: No Musculoskeletal: No Neurologic: Yes Psychiatric: Yes Reproductive: No Respiratory: No Immunizations Current: No Migraines: No Radiation Therapy: No Renal Failure: Yes (d/t dye for cardiac stent insertions- DIALYSIS Q3 DAYS) Seizures: No Sickle Cell Disease: No Sleep Apnea: Yes (Wears CPAP ) Thyroid Disease: No Ulcer: No Menopausal: Yes : 3 Para: 3 Miscarriage: 0 Past Surgical History Abdominal Surgery: No AICD: No Arteriovenous Shunt: No Body Medical Devices: left arm fistula Cardiac Surgery: Yes (STENTS (2) ) Section: Yes Ear Surgery: No Endocrine Surgery: No Eye Surgery: No Genitourinary Surgery: No Gynecologic Surgery: Yes (c section ) Insulin Pump: No Joint Replacement: No Oral Surgery: No Pacemaker: No Thoracic Surgery: No Other Surgery: Yes (CARDIAC CATH 2015) Social History Alcohol Use: No Tobacco Use: No Substance Use: No Allergies-Medications (Allergen,Severity, Reaction): Coded Allergies: pregabalin (Verified Allergy, Severe, Anaphylaxis, 05/31/17) *MDRO Multi-Drug Resistant Organism (Verified Adverse Reaction, Unknown, 05/31/17) MRSA (sputum)-07/20/16 MRSA PCR Screen POSITIVE - 07/18/2016 Reported Meds & Prescriptions Reported Meds & Active Scripts Active Nifedipine ER 24 HR (Nifedipine) 60 Mg Tab 60 Mg PO Q12HR Coreg (Carvedilol) 6.25 Mg Tab 12.5 Mg PO BID Hydralazine HCl 50 Mg Tablet 50 Mg PO Q8HR Catapres (Clonidine) 0.1 Mg Tab 0.1 Mg PO TID Neurontin (Gabapentin) 300 Mg Cap 300 Mg PO DAILY Reported Ferrous Sulfate DR (Ferrous Sulfate) 325 Mg Tabdr 1 Tab PO BID Lisinopril 20 Mg Tab 20 Mg PO DAILY Lasix (Furosemide) 20 Mg Tab 20 Mg PO BID Omeprazole 20 Mg Tab 20 Mg PO DAILY Review of Systems Except as stated in HPI: all other systems reviewed are Neg Physical Exam Narrative This is a chronically ill-appearing female patient, brought in by wheelchair. She appears without distress. She has even respirations. Her abdomen is nondistended. She has mild bilateral lower extremity edema. She does move all extremities freely. He speaks clearly to me. Data Data Last Documented VS Vital Signs Date Time Temp Pulse Resp B/P (MAP) Pulse Ox O2 Delivery O2 Flow Rate FiO2 08/18/17 14:34 97.8 67 18 168/79 (108) 97 Orders Orders Complete Blood Count With Diff (08/18/17 14:36) Comprehensive Metabolic Panel (08/18/17 14:36) Lipase (08/18/17 14:36) Prothrombin Time / Inr (Pt) (08/18/17 14:36) Act Partial Throm Time (Ptt) (08/18/17 14:36) Urinalysis - C+S If Indicated (08/18/17 14:36) Electrocardiogram (08/18/17 14:36) Labs Laboratory Tests Test 08/18/17 15:51 White Blood Count 4.8 TH/MM3 Red Blood Count 4.73 MIL/MM3 Hemoglobin 12.7 GM/DL Hematocrit 38.2 % Mean Corpuscular Volume 80.9 FL Mean Corpuscular Hemoglobin 26.9 PG Mean Corpuscular Hemoglobin Concent 33.3 % Red Cell Distribution Width 16.8 % Platelet Count 154 TH/MM3 Mean Platelet Volume 9.8 FL Neutrophils (%) (Auto) 70.5 % Lymphocytes (%) (Auto) 16.4 % Monocytes (%) (Auto) 10.0 % Eosinophils (%) (Auto) 2.0 % Basophils (%) (Auto) 1.1 % Neutrophils # (Auto) 3.4 TH/MM3 Lymphocytes # (Auto) 0.8 TH/MM3 Monocytes # (Auto) 0.5 TH/MM3 Eosinophils # (Auto) 0.1 TH/MM3 Basophils # (Auto) 0.1 TH/MM3 CBC Comment DIFF FINAL Differential Comment Prothrombin Time 12.0 SEC Prothromb Time International Ratio 1.2 RATIO Activated Partial Thromboplast Time 25.0 SEC Blood Urea Nitrogen 80 MG/DL Creatinine 8.49 MG/DL Random Glucose 116 MG/DL Total Protein 8.0 GM/DL Albumin 3.7 GM/DL Calcium Level 8.6 MG/DL Alkaline Phosphatase 102 U/L Aspartate Amino Transf (AST/SGOT) 12 U/L Alanine Aminotransferase (ALT/SGPT) 30 U/L Total Bilirubin 0.7 MG/DL Sodium Level 141 MEQ/L Potassium Level 4.2 MEQ/L Chloride Level 106 MEQ/L Carbon Dioxide Level 21.3 MEQ/L Anion Gap 14 MEQ/L Estimat Glomerular Filtration Rate 5 ML/MIN Lipase 150 U/L [facility] Medical Decision Making Medical Screen Exam Complete: Yes Emergency Medical Condition: Yes Medical Record Reviewed: Yes Differential Diagnosis Gastroenteritis versus electrolyte abnormality versus cholecystitis versus sepsis Narrative Course 51-year-old female presents to emergency department for evaluation. Patient appears without distress. Workup is initiated in triage. Prior to arrival in room, patient chooses to leave AMA: The risks of leaving against medical advice without further evaluation treatment were discussed with the patient. These risks include cardiac dysfunction, cardiac dysrhythmia, possible heart attack, possible stroke or . The patient indicated understanding of these risks and appeared to have the capacity to make this decision. Diagnosis Primary Impression: Nausea, vomiting and diarrhea Disposition: 07 AGAINST MEDICAL ADVICE Condition: Stable Val IbarraP Aug 18, 2017 21:13
--- NOTE | 2017-08-19 19:06 | EKG ---
Date Performed: 08/18/2017 Time Performed: 15:58:07 PTAGE: 51 years EKG: Sinus rhythm POSSIBLE LEFT ATRIAL ENLARGEMENT ST DEVIATION AND MODERATE T-WAVE ABNORMALITY, CONSIDER LATERAL ISCH EMIA ABNORMAL ECG Since the prior tracing, there has been no significant change PREVIOUS TRACING : 05/31/2017 17.13 DOCTOR: Lakhwinder Chan Interpretating Date/Time 08/19/2017 19:03:54
== END 2017-08-18 19:55 | disposition left against medical advice (07) ==
LOC: NED 13:54
DX: R11.2 Nausea with vomiting, unspecified (principal); R19.7 Diarrhea, unspecified; I13.2 Hypertensive heart and chronic kidney disease with heart failure and with stage 5 chronic kidney disease, or end stage renal disease; I50.9 Heart failure, unspecified; E11.22 Type 2 diabetes mellitus with diabetic chronic kidney disease; N18.6 End stage renal disease; E78.00 Pure hypercholesterolemia, unspecified; F32.9 Major depressive disorder, single episode, unspecified; Z53.21 Procedure and treatment not carried out due to patient leaving prior to being seen by health care provider; Z99.2 Dependence on renal dialysis; Z88.8 Allergy status to other drugs, medicaments and biological substances; Z79.899 Other long term (current) drug therapy
CPT/HCPCS: 80053; 83690; 85025; 85610; 85730; 93005; 99283

== ENCOUNTER 2017-09-05 14:11 | Inpatient (IN) | payer OTHER, MEDICARE ==
[~2017-09-05] VITALS: Ht 167.6 cm; Wt 91.5 kg
[2017-09-05] VITALS (9 sets, daily range): BP systolic 186–248; BP diastolic 90–160; PULSE 79–87; RESP 16–18; TEMP 98.1; O2SAT 96–100
[2017-09-05] MEDS ORDERED: ONDANSETRON HCL 4 MG/2 ML VIAL IV PUSH ONE (15:45)
--- NOTE | 2017-09-05 15:53 | PD ---
HPI Chief Complaint: GI Complaint Time Seen by Provider: 15:40 Travel History International Travel<30 days: No Contact w/Intl Traveler<30days: No Traveled to known affect area: No History of Present Illness HPI 52-year-old female presents with nonbloody emesis over the past couple of days. She was here the beginning of the month with similar symptoms and left AGAINST MEDICAL ADVICE but she states the symptoms went away and came back. She states she missed her dialysis [place] but got her dialysis yesterday. She states Dr. Medley is her hemmer automatic. She denies any abdominal pain, fever, diarrhea or other concurrent complaints at this time. She denies any sick contacts. Quality is nonbloody. Severity is multiple episodes. She states she has not been able to keep down her blood pressure medication. PFSH Past Medical History Hx Anticoagulant Therapy: Yes Arthritis: No Asthma: No Autoimmune Disease: No Blood Disorders: No Anxiety: Yes Depression: Yes Heart Rhythm Problems: No Cancer: No Cardiovascular Problems: Yes High Cholesterol: Yes Chemotherapy: No Chest Pain: No Congestive Heart Failure: Yes COPD: No Cerebrovascular Accident: Yes Diabetes: Yes Diminished Hearing: No Endocrine: Yes GERD: Yes Genitourinary: Yes (ESRD WITH DIALYSIS t/sat) Hepatitis: No Hiatal Hernia: No Hypertension: Yes Immune Disorder: No Implanted Vascular Access Dvce: Yes Kidney Stones: No Musculoskeletal: No Neurologic: Yes Psychiatric: Yes Reproductive: No Respiratory: No Immunizations Current: No Migraines: No Radiation Therapy: No Renal Failure: Yes (d/t dye for cardiac stent insertions- DIALYSIS Q3 DAYS) Seizures: No Sickle Cell Disease: No Sleep Apnea: Yes (Wears CPAP ) Thyroid Disease: No Ulcer: No Menopausal: Yes : 3 Para: 3 Miscarriage: 0 Past Surgical History Abdominal Surgery: No AICD: No Arteriovenous Shunt: No Body Medical Devices: left arm fistula Cardiac Surgery: Yes (STENTS (2) ) Section: Yes Ear Surgery: No Endocrine Surgery: No Eye Surgery: No Genitourinary Surgery: No Gynecologic Surgery: Yes (c section ) Insulin Pump: No Joint Replacement: No Oral Surgery: No Pacemaker: No Thoracic Surgery: No Other Surgery: Yes (CARDIAC CATH 2015) Social History Alcohol Use: No Tobacco Use: No Substance Use: No Allergies-Medications (Allergen,Severity, Reaction): Coded Allergies: pregabalin (Verified Allergy, Severe, Anaphylaxis, 05/31/17) *MDRO Multi-Drug Resistant Organism (Verified Adverse Reaction, Unknown, 05/31/17) MRSA (sputum)-07/20/16 MRSA PCR Screen POSITIVE - 07/18/2016 Reported Meds & Prescriptions Reported Meds & Active Scripts Active Nifedipine ER 24 HR (Nifedipine) 60 Mg Tab 60 Mg PO Q12HR Coreg (Carvedilol) 6.25 Mg Tab 12.5 Mg PO BID Neurontin (Gabapentin) 300 Mg Cap 300 Mg PO DAILY Reported Ferrous Sulfate DR (Ferrous Sulfate) 325 Mg Tabdr 1 Tab PO BID Lisinopril 20 Mg Tab 20 Mg PO DAILY Lasix (Furosemide) 20 Mg Tab 20 Mg PO BID Omeprazole 20 Mg Tab 20 Mg PO DAILY Review of Systems Except as stated in HPI: all other systems reviewed are Neg Physical Exam Narrative GENERAL: 52-year-old female in no apparent distress SKIN: Focused skin assessment warm/dry. HEAD: Atraumatic. Normocephalic. EYES: No scleral icterus. No injection or drainage. ENT: No nasal bleeding or discharge. Mucous membranes pink and moist. NECK: Trachea midline CARDIOVASCULAR: Regular rate and rhythm. RESPIRATORY: No accessory muscle use. Clear to auscultation. Breath sounds equal bilaterally. GASTROINTESTINAL: Abdomen soft, non-tender, nondistended. MUSCULOSKELETAL: No obvious deformities. No clubbing. No cyanosis. NEUROLOGICAL: Awake and alert. Motor grossly within normal limits. Normal speech. PSYCHIATRIC: Appropriate mood and affect; insight and judgment normal. Data Data Last Documented VS Vital Signs Date Time Temp Pulse Resp B/P (MAP) Pulse Ox O2 Delivery O2 Flow Rate FiO2 09/05/17 17:53 83 17 239/121 (160) 96 Room Air 09/05/17 14:40 98.1 Orders Orders Magnesium (Mg) (09/05/17 15:44) Phosphorus (Po4) (09/05/17 15:44) Complete Blood Count With Diff (09/05/17 15:44) Comprehensive Metabolic Panel (09/05/17 15:44) Ckmb (Isoenzyme) Profile (09/05/17 15:44) Troponin I (09/05/17 15:44) Act Partial Throm Time (Ptt) (09/05/17 15:44) Prothrombin Time / Inr (Pt) (09/05/17 15:44) Chest, Single Ap (09/05/17 ) Iv Access Insert/Monitor (09/05/17 15:44) Ecg Monitoring (09/05/17 15:44) Oximetry (09/05/17 15:44) Ondansetron Inj (Zofran Inj) (09/05/17 15:45) Clonidine (Catapres) (09/05/17 16:00) Hydralazine (Apresoline) (09/05/17 16:45) Nifedipine Sr (Procardia Xl) (09/05/17 17:00) CKMB (09/05/17 16:30) CKMB% (09/05/17 16:30) Hydralazine Inj (Apresoline Inj) (09/05/17 18:00) Admit Order (Ed Use Only) (09/05/17 17:54) Labs Laboratory Tests Test 09/05/17 16:30 White Blood Count 3.5 TH/MM3 Red Blood Count 4.75 MIL/MM3 Hemoglobin 13.1 GM/DL Hematocrit 38.9 % Mean Corpuscular Volume 81.8 FL Mean Corpuscular Hemoglobin 27.5 PG Mean Corpuscular Hemoglobin Concent 33.7 % Red Cell Distribution Width 16.1 % Platelet Count 113 TH/MM3 Mean Platelet Volume 10.1 FL Neutrophils (%) (Auto) 71.1 % Lymphocytes (%) (Auto) 17.3 % Monocytes (%) (Auto) 9.5 % Eosinophils (%) (Auto) 1.1 % Basophils (%) (Auto) 1.0 % Neutrophils # (Auto) 2.5 TH/MM3 Lymphocytes # (Auto) 0.6 TH/MM3 Monocytes # (Auto) 0.3 TH/MM3 Eosinophils # (Auto) 0.0 TH/MM3 Basophils # (Auto) 0.0 TH/MM3 CBC Comment DIFF FINAL Differential Comment Prothrombin Time 12.4 SEC Prothromb Time International Ratio 1.2 RATIO Activated Partial Thromboplast Time 25.4 SEC Blood Urea Nitrogen 38 MG/DL Creatinine 6.18 MG/DL Random Glucose 111 MG/DL Total Protein 7.7 GM/DL Albumin 3.4 GM/DL Calcium Level 9.0 MG/DL Phosphorus Level 5.4 MG/DL Magnesium Level 2.1 MG/DL Alkaline Phosphatase 85 U/L Aspartate Amino Transf (AST/SGOT) 14 U/L Alanine Aminotransferase (ALT/SGPT) 16 U/L Total Bilirubin 0.9 MG/DL Sodium Level 144 MEQ/L Potassium Level 5.1 MEQ/L Chloride Level 107 MEQ/L Carbon Dioxide Level 25.6 MEQ/L Anion Gap 11 MEQ/L Estimat Glomerular Filtration Rate 7 ML/MIN Total Creatine Kinase 157 U/L Creatine Kinase MB 3.9 NG/ML Troponin I 0.15 NG/ML MDM Medical Decision Making Medical Screen Exam Complete: Yes Emergency Medical Condition: Yes Medical Record Reviewed: Yes (past history confirmed) Interpretation(s) CBC & BMP Diagram 09/05/17 16:30 Total Protein 7.7, Albumin 3.4, Calcium Level 9.0, Phosphorus Level 5.4 H, Magnesium Level 2.1, Alkaline Phosphatase 85, Aspartate Amino Transf (AST/SGOT) 14 L, Alanine Aminotransferase (ALT/SGPT) 16, Total Bilirubin 0.9 Last 24 hours Impressions Chest X-Ray 09/05/17 0000 Signed Impressions: Service Date/Time: Tuesday, September 05, 2017 15:59 - CONCLUSION: Compensated cardiomegaly otherwise negative Zia Mortensen MD FACR Differential Diagnosis Electrolyte abnormality, gastroenteritis, hypertensive urgency.... Narrative Course Will check blood work, chest x-ray, EKG and dose with Zofran and home clonidine and reevaluate Patient received home medications and Zofran but blood pressure remained elevated and then she had an episode of emesis. She was given 10 of IV hydralazine and her blood pressure started to improve. She'll be given additional antiemetics and she'll need to be brought in the hospital for further blood pressure management. Critical Care Narrative Aggregate critical care time was 40 minutes. Time to perform other separately billable procedures was not included in the critical care time. My time did not include minutes spent treating any other patients simultaneously or on activities that did not directly contribute to the patient's treatment. The services I provided to this patient were to treat and/or prevent clinically significant deterioration that could result in: hypertensive emergency, I provided critical care services requiring my management, as noted below: Chart data review, documentation time, medication orders and management, vital sign assessments/reviewing monitor data, ordering and reviewing lab tests, ordering and interpreting/reviewing x-rays and diagnostic studies, care of the patient and discussion of the patient with the admitting physicians. Physician Communication Physician Communication dr mendez agrees to admit Diagnosis Primary Impression: Hypertensive urgency Additional Impression: Vomiting Qualified Codes: R11.2 - Nausea with vomiting, unspecified Admitting Information Admitting Physician Requests: Admit Scripts Ondansetron Odt (Zofran Odt) 4 Mg Tab 4 MG SL Q6HR Y for Nausea/Vomiting, #30 TAB 0 Refills Prov: David Randall DO 09/07/17 Clonidine 168 HR Patch (Clonidine 168 HR Patch) 0.1 Mg/24 Hr Patch 1 PATCH T-DERMAL Q7D for Blood Pressure Management, #4 PATCH 0 Refills Prov: David Randall DO 09/07/17 Hydralazine (Hydralazine) 100 Mg Tab 100 MG PO Q8HR for Blood Pressure Management, #90 TAB Take with meals Prov: David Randall DO 09/07/17 Karolina Willis MD Sep 05, 2017 15:53
[2017-09-05] MEDS ORDERED: cloNIDine HCL 0.1 MG TAB PO ONE (16:00)
--- NOTE | 2017-09-05 16:29 | RADRPT ---
EXAM DATE/TIME: 09/05/2017 15:59 [facility] COMPARISON: CHEST SINGLE AP, May 31, 2017, 18:23. INDICATIONS : Short of breath. MEDICAL HISTORY : Hypertension. Diabetes mellitus type II. kidney failure SURGICAL HISTORY : Coronary artery stent. ENCOUNTER: Initial ACUITY: 1 day PAIN SCORE: 2/10 LOCATION: Bilateral chest FINDINGS: The lungs are clear. The heart is minimally enlarged. The pulmonary vascularity is normal. There is n o evidence for infiltrate or failure. The portion of the bony skeleton visualized is unremarkable. CONCLUSION: Compensated cardiomegaly otherwise negative Zia Mortensen MD FACR on September 05, 2017 at 16:26 Board Certified Radiologist. This report was verified electronically.
[2017-09-05] MEDS ORDERED: hydrALAZINE HCL 50 MG TAB PO ONE (16:45)
[2017-09-05 16:53] LABS: INTERNATIONAL NORMALIZED RATIO 1.2 RATIO; PROTHROMBIN TIME - PATIENT 12.4 SEC (9.8-11.6)
[2017-09-05 16:56] LABS: AUTOMATED NEUTROPHIL # 2.5 TH/MM3 (1.8-7.7); EOSINOPHIL % 1.1 % (0.0-4.0); HEMATOCRIT 38.9 % (35.0-46.0); HEMOGLOBIN 13.1 GM/DL (11.6-15.3); LYMPH % 17.3 % (9.0-44.0); LYMPHOCYTE # 0.6 TH/MM3 (1.0-4.8); MEAN CELL VOLUME 81.8 FL (80.0-100.0); MEAN CORPUSCULAR HEMOGLOBIN 27.5 PG (27.0-34.0); MEAN CORPUSCULAR HGB CONC 33.7 % (32.0-36.0); MEAN PLATELET VOLUME 10.1 FL (7.0-11.0); MONO % 9.5 % (0.0-8.0); MONOCYTE # 0.3 TH/MM3 (0-0.9); NEUT % 71.1 % (16.0-70.0); PLATELET COUNT 113 TH/MM3 (150-450); RED BLOOD COUNT 4.75 MIL/MM3 (4.00-5.30); RED CELL DISTRIBUTION WIDTH 16.1 % (11.6-17.2); WHITE BLOOD COUNT 3.5 TH/MM3 (4.0-11.0)
[2017-09-05] MEDS ORDERED: NIFEdipine 60 MG SUSTAINED RELEASE TAB PO ONE (17:00)
[2017-09-05 17:14] LABS: PHOSPHORUS 5.4 MG/DL (2.5-4.9)
[2017-09-05 17:19] LABS: ALBUMIN 3.4 GM/DL (3.4-5.0); ALKALINE PHOSPHATASE 85 U/L (45-117); ALT (GPT) 16 U/L (10-53); AST (GOT) 14 U/L (15-37); BICARBONATE 25.6 MEQ/L (21.0-32.0); BLOOD UREA NITROGEN 38 MG/DL (7-18); CHLORIDE 107 MEQ/L (98-107); CREATININE 6.18 MG/DL (0.50-1.00); GLOMERULAR FILTRATION RATE 7 ML/MIN (>89); GLUCOSE,RANDOM 111 MG/DL (74-106); MAGNESIUM 2.1 MG/DL (1.5-2.5); SODIUM (NA) 144 MEQ/L (136-145); TOTAL BILIRUBIN ADULT 0.9 MG/DL (0.2-1.0); TOTAL PROTEIN 7.7 GM/DL (6.4-8.2); TROPONIN I 0.15 NG/ML (0.02-0.05)
[2017-09-05] MEDS ORDERED: hydrALAZINE HCL 20 MG/ML VIAL IV PUSH ONE (18:00)
[2017-09-05] MEDS ORDERED: LABETALOL HCL 100 MG/20 ML VIAL IV PUSH ONE (18:30)
[2017-09-05] MEDS ORDERED: TEMAZEPAM 15 MG CAP PO PRN (18:45)
[2017-09-05] MEDS ORDERED: NALOXONE HCL 0.4 MG/ML AMP IV PUSH PRN (18:45)
[2017-09-05] MEDS ORDERED: ACETAMINOPHEN 325 MG TAB PO PRN ×2 (18:45→19:45)
[2017-09-05] MEDS ORDERED: SENNOSIDES 8.6 MG TAB PO PRN (18:45)
[2017-09-05] MEDS ORDERED: LACTULOSE SYRUP 20 GM/30 ML CUP PO PRN (18:45)
[2017-09-05] MEDS ORDERED: MAGNESIUM HYDROXIDE SUSP 30 ML CUP PO PRN (18:45)
[2017-09-05] MEDS ORDERED: BISACODYL 10 MG SUPP RECTAL PRN (18:45)
[2017-09-05] MEDS ORDERED: SODIUM CHLORIDE 0.9% FLUSH 10 ML FLUSH IV FLUSH PRN ×2 (18:45→19:45)
--- NOTE | 2017-09-05 18:51 | HHI.HP ---
HPI Service [facility] Primary Care Physician No Primary Care Physician Admission Diagnosis hypertensive urgency, vomiting Diagnoses: Chief Complaint: Nausea and vomiting Travel History International Travel<30 Days: No Contact w/Intl Traveler <30 Da: No Traveled to Known Affected Are: No History of Present Illness Mr. Carnes is a 52-year-old female with a history of ESRD on dialysis, coronary artery disease, hyperlipidemia who presents to the emergency department on 09/05/2017 due to nausea and vomiting that started 2 days prior to this admission. Patient denies any abdominal pain, chest pain, shortness of breath, fever or chills. She denies eating anything unusual. No exposure to anyone sick. She missed her dialysis on Friday but she was able to receive dialysis , 09/04/2017. Upon arrival, blood pressure 237/116, heart rate 85, respirations 16, temperature 98.1F. CBC unremarkable. CMP shows sodium 144 potassium 5.1 BUN 38 creatinine 6.18. Chest x-ray shows compensated cardiomegaly. Review of Systems Except as stated in HPI: all other systems reviewed are Neg Past Family Social History Past Medical History End-stage renal disease currently on dialysis Hypertension Coronary artery disease GERD Obstructive sleep apnea Past Surgical History Left arm fistula, , cardiac catheterization in 2015. Reported Medications Nifedipine ER 24 HR (Nifedipine) 60 Mg Tab 60 Mg PO Q12HR Coreg (Carvedilol) 6.25 Mg Tab 12.5 Mg PO BID Hydralazine HCl 50 Mg Tablet 50 Mg PO Q8HR Catapres (Clonidine) 0.1 Mg Tab 0.1 Mg PO TID Neurontin (Gabapentin) 300 Mg Cap 300 Mg PO DAILY Reported Ferrous Sulfate DR (Ferrous Sulfate) 325 Mg Tabdr 1 Tab PO BID Lisinopril 20 Mg Tab 20 Mg PO DAILY Lasix (Furosemide) 20 Mg Tab 20 Mg PO BID Omeprazole 20 Mg Tab 20 Mg PO DAILY Allergies: Coded Allergies: pregabalin (Verified Allergy, Severe, Anaphylaxis, 05/31/17) *MDRO Multi-Drug Resistant Organism (Verified Adverse Reaction, Unknown, 05/31/17) MRSA (sputum)-07/20/16 MRSA PCR Screen POSITIVE - 07/18/2016 Family History Father had heart disease, myocardial infarction at 52. Mother with diabetes mellitus. Social History Patient denies using tobacco, alcohol, illicit drugs. Physical Exam Vital Signs Vital Signs Date Time Temp Pulse Resp B/P (MAP) Pulse Ox O2 Delivery O2 Flow Rate FiO2 09/05/17 18:27 84 17 237/116 (156) 100 Room Air 09/05/17 17:53 83 17 239/121 (160) 96 Room Air 09/05/17 17:09 83 17 248/124 (165) 98 Room Air 09/05/17 16:38 84 18 241/160 (187) 97 Room Air 09/05/17 16:34 96 Room Air 09/05/17 14:40 98.1 85 16 235/115 (155) 99 Physical Exam GENERAL: This is a well-nourished, well-developed patient, mild distress due to nausea, vomiting. SKIN: No rashes, ecchymoses or lesions. Warm and dry. HEAD: Atraumatic. Normocephalic. No temporal or scalp tenderness. EYES: Pupils equal round and reactive. No injection or drainage. ENT: Nose without bleeding, purulent drainage or septal hematoma. Airway patent. NECK: Trachea midline. No lymphadenopathy. Supple, nontender, no meningeal signs. CARDIOVASCULAR: Regular rate and rhythm without murmurs, gallops, or rubs. No JVD. RESPIRATORY: Clear to auscultation. Breath sounds equal bilaterally. No wheezes , rales, or rhonchi. GASTROINTESTINAL: Abdomen soft, non-tender, nondistended. No guarding. MUSCULOSKELETAL: Extremities without clubbing, cyanosis, or edema. NEUROLOGICAL: Awake and alert. Cranial nerves II through XII intact. No focal neurological deficits. Normal speech. Laboratory Laboratory Tests Test 09/05/17 16:30 White Blood Count 3.5 Red Blood Count 4.75 Hemoglobin 13.1 Hematocrit 38.9 Mean Corpuscular Volume 81.8 Mean Corpuscular Hemoglobin 27.5 Mean Corpuscular Hemoglobin Concent 33.7 Red Cell Distribution Width 16.1 Platelet Count 113 Mean Platelet Volume 10.1 Neutrophils (%) (Auto) 71.1 Lymphocytes (%) (Auto) 17.3 Monocytes (%) (Auto) 9.5 Eosinophils (%) (Auto) 1.1 Basophils (%) (Auto) 1.0 Neutrophils # (Auto) 2.5 Lymphocytes # (Auto) 0.6 Monocytes # (Auto) 0.3 Eosinophils # (Auto) 0.0 Basophils # (Auto) 0.0 CBC Comment DIFF FINAL Differential Comment Prothrombin Time 12.4 Prothromb Time International Ratio 1.2 Activated Partial Thromboplast Time 25.4 Blood Urea Nitrogen 38 Creatinine 6.18 Random Glucose 111 Total Protein 7.7 Albumin 3.4 Calcium Level 9.0 Phosphorus Level 5.4 Magnesium Level 2.1 Alkaline Phosphatase 85 Aspartate Amino Transf (AST/SGOT) 14 Alanine Aminotransferase (ALT/SGPT) 16 Total Bilirubin 0.9 Sodium Level 144 Potassium Level 5.1 Chloride Level 107 Carbon Dioxide Level 25.6 Anion Gap 11 Estimat Glomerular Filtration Rate 7 Total Creatine Kinase 157 Creatine Kinase MB 3.9 Troponin I 0.15 Result Diagram: 09/05/17 1630 09/05/17 1630 Imaging Last Impressions Chest X-Ray 09/05/17 0000 Signed Impressions: Service Date/Time: Tuesday, September 05, 2017 15:59 - CONCLUSION: Compensated cardiomegaly otherwise negative Zia Mortensen MD FACR Caprini VTE Risk Assessment Caprini VTE Risk Assessment: Mod/High Risk (score >= 2) Caprini Risk Assessment Model Point Value = 1 Point Value = 2 Point Value = 3 Point Value = 5 Age 41-60 Minor surgery BMI > 25 kg/m2 Swollen legs Varicose veins or History of unexplained or recurrent spontaneous Oral contraceptives or hormone replacement Sepsis (< 1 month) Serious lung disease, including pneumonia (< 1 month) Abnormal pulmonary function Acute myocardial infarction Congestive heart failure (< 1 month) History of inflammatory bowel disease Medical patient at bed rest Age 61-74 Arthroscopic surgery Major open surgery (> 45 min) Laparoscopic surgery (> 45 min) Malignancy Confined to bed (> 72 hours) Immobilizing plaster cast Central venous access Age >= 75 History of VTE Family history of VTE Factor V Leiden Prothrombin [id number] Lupus anticoagulant Anticardiolipin antibodies Elevated serum homocysteine Heparin-induced thrombocytopenia Other congenital or acquired thrombophilia Stroke (< 1 month) Elective arthroplasty Hip, pelvis, or leg fracture Acute spinal cord injury (< 1 month) Prophylaxis Regimen Total Risk Factor Score Risk Level Prophylaxis Regimen 0-1 Low Early ambulation 2 Moderate Order ONE of the following: *Sequential Compression Device (SCD) *Heparin 5000 units SQ BID 3-4 Higher Order ONE of the following medications: *Heparin 5000 units SQ TID *Enoxaparin/Lovenox 40 mg SQ daily (WT < 150 kg, CrCl > 30 mL/min) *Enoxaparin/Lovenox 30 mg SQ daily (WT < 150 kg, CrCl > 10-29 mL/min) *Enoxaparin/Lovenox 30 mg SQ BID (WT < 150 kg, CrCl > 30 mL/min) AND/OR *Sequential Compression Device (SCD) 5 or more Highest Order ONE of the following medications: *Heparin 5000 units SQ TID (Preferred with Epidurals) *Enoxaparin/Lovenox 40 mg SQ daily (WT < 150 kg, CrCl > 30 mL/min) *Enoxaparin/Lovenox 30 mg SQ daily (WT < 150 kg, CrCl > 10-29 mL/min) *Enoxaparin/Lovenox 30 mg SQ BID (WT < 150 kg, CrCl > 30 mL/min) AND *Sequential Compression Device (SCD) Assessment and Plan Problem List: (1) Accelerated hypertension ICD Code: I10 - Essential (primary) hypertension (2) ESRD (end stage renal disease) on dialysis ICD Code: N18.6 - End stage renal disease; Z99.2 - Dependence on renal dialysis Status: Chronic (3) HTN (hypertension) ICD Code: I10 - Essential (primary) hypertension Status: Chronic Assessment and Plan Ms. Carnes is a pleasant 52-year-old female with a history of hypertension, ESRD currently on dialysis Friday and Friday who presents to the emergency department today due to 2 day duration of nausea and vomiting. Patient denies any chest pain, shortness of breath, fever or chills. She denies any abdominal pain, diarrhea or constipation. No blood in the vomitus. Nausea and vomiting Etiology unknown. We will start patient on normal saline 100 cc/h. Continue Zofran as needed. Will add other nausea medications. Patient does not have any focal neurological deficits. However if nausea vomiting continues, we could obtain a CT head. Accelerated hypertension Probably due to nausea vomiting and inability to take antihypertensive medications. Patient takes clonidine 0.1 mg 3 times daily. This accelerated hypertension could be due to rebound hypertension related to clonidine. Patient received hydralazine in the ED. We will give her labetalol 20 mg IV once. Start her home medications -nifedipine 60 mg every 12, hydralazine 50 mg every 8, carvedilol. Due to nausea vomiting oral medications would be unreliable. Will start patient on clonidine patch 0.1 mg. End-stage renal disease Patient received dialysis on , 09/04/2017. Will consult nephrology to continue dialysis while she is in the hospital. Full code. SCDs for now. Physician Certification 2 Midnight Certification Type: Admission for Inpatient Services Order for Inpatient Services The services are ordered in accordance with Medicare regulations or non- Medicare payer requirements, as applicable. In the case of services not specified as inpatient-only, they are appropriately provided as inpatient services in accordance with the 2-midnight benchmark. Estimated LOS (days): 2 days is the estimated time the patient will need to remain in the hospital, assuming treatment plan goals are met and no additional complications. Post-Hospital Plan: Home David Randall DO Sep 05, 2017 18:51
[2017-09-05] MEDS ORDERED: METOCLOPRAMIDE HCL 10 MG/2 ML VIAL IV PUSH ONE (19:00)
[2017-09-05] MEDS ORDERED: cloNIDine HCL 0.1 MG/24 HR PATCH T-DERMAL ONE (19:30)
[2017-09-05] MEDS ORDERED: SODIUM CHLOR 0.9% 1000 ML INJ 1,000 ML OTHER PRN ×2 (19:33)
[2017-09-05] MEDS ORDERED: SODIUM CHLOR 0.9% 1000 ML INJ 1,000 ML IV PRN (19:33)
[2017-09-05] MEDS: SODIUM CHLORIDE 0.9% FLUSH 10 ML FLUSH IV FLUSH SCH (19:39)
[2017-09-05] MEDS ORDERED: diphenhydrAMINE HCL 25 MG CAP PO PRN (19:45)
[2017-09-05] MEDS ORDERED: GELATIN 12 MM/7 MM FOAM TOP PRN (19:45)
[2017-09-05] MEDS ORDERED: cloNIDine HCL 0.1 MG TAB PO PRN (19:45)
[2017-09-05] MEDS ORDERED: ALBUMIN 25% INJ 100 ML IV PRN (19:45)
[2017-09-05] MEDS ORDERED: HEPARIN SODIUM - IV 10,000 UNITS/10 ML VIAL IV FLUSH PRN (19:45)
[2017-09-05] MEDS ORDERED: NITROGLYCERIN 0.4 MG SL 25 TABS/BTL SL PRN (19:45)
[2017-09-05] MEDS ORDERED: MANNITOL 12.5 GM/50 ML VIAL IV PRN (19:45)
[2017-09-05] MEDS: ONDANSETRON HCL 4 MG/2 ML VIAL IVP PRN (20:34)
[2017-09-05] MEDS: CARVEDILOL 6.25 MG TAB PO SCH (21:53)
[2017-09-05] MEDS: NIFEdipine 60 MG SUSTAINED RELEASE TAB PO SCH (21:54)
[2017-09-05] MEDS: hydrALAZINE HCL 50 MG TAB PO SCH (21:54)
[2017-09-05] MEDS: FUROSEMIDE 20 MG TAB PO SCH (21:55)
[2017-09-05] MEDS: FERROUS SULFATE 325 MG (65 MG ELEMENTAL IRON) TAB PO SCH (21:56)
[2017-09-05] MEDS ORDERED: METOCLOPRAMIDE HCL 10 MG/2 ML VIAL IV PUSH PRN (22:15)
[2017-09-05] MEDS ORDERED: PROCHLORPERAZINE 25 MG SUPP RECTAL PRN (22:15)
[2017-09-06] VITALS (20 sets, daily range): BP systolic 154–197; BP diastolic 76–98; PULSE 64–95; RESP 16–18; TEMP 98.1–99.3; O2SAT 95–99
[2017-09-06] MEDS: hydrALAZINE HCL 50 MG TAB PO SCH ×2 (04:53→14:42)
[2017-09-06] MEDS: ONDANSETRON HCL 4 MG/2 ML VIAL IVP PRN ×2 (04:53→17:49)
--- NOTE | 2017-09-06 08:39 | HHI.PR ---
Subjective Remarks Follow-up for nausea vomiting, hypertensive urgency. Patient was seen right before she went to dialysis. Currently doing well. She does report her nausea and vomiting is improving. No chest pain, shortness of breath, fever or chills. Objective Vitals Vital Signs Date Time Temp Pulse Resp B/P (MAP) Pulse Ox O2 Delivery O2 Flow Rate FiO2 09/06/17 06:02 79 09/06/17 05:48 78 09/06/17 04:40 98.6 77 197/94 (128) 97 09/06/17 04:34 09/06/17 04:20 76 09/06/17 00:37 74 18 154/76 (102) 97 Room Air 09/05/17 20:36 96 09/05/17 20:22 79 18 186/90 (122) 98 Room Air 09/05/17 18:45 87 17 215/97 (136) 96 Room Air 09/05/17 18:27 84 17 237/116 (156) 100 Room Air 09/05/17 17:53 83 17 239/121 (160) 96 Room Air 09/05/17 17:09 83 17 248/124 (165) 98 Room Air 09/05/17 16:38 84 18 241/160 (187) 97 Room Air 09/05/17 16:34 96 Room Air 09/05/17 14:40 98.1 85 16 235/115 (155) 99 I/O 09/05/17 09/05/17 09/05/17 09/06/17 09/06/17 09/06/17 07:00 15:00 23:00 07:00 15:00 23:00 Intake Total 480 ml Balance 480 ml Intake Oral 480 ml Result Diagram: 09/05/17 1630 09/05/17 1630 Imaging Last Impressions Chest X-Ray 09/05/17 0000 Signed Impressions: Service Date/Time: Tuesday, September 05, 2017 15:59 - CONCLUSION: Compensated cardiomegaly otherwise negative Zia Mortensen MD FACR Objective Remarks GENERAL: Alert, oriented oriented 3, NAD. SKIN: Warm and dry. HEAD: Normocephalic. EYES: No scleral icterus. No injection or drainage. NECK: Supple, trachea midline. No JVD or lymphadenopathy. CARDIOVASCULAR: Regular rate and rhythm without murmurs, gallops, or rubs. RESPIRATORY: Breath sounds equal bilaterally. No accessory muscle use. GASTROINTESTINAL: Abdomen soft, non-tender, nondistended. MUSCULOSKELETAL: No cyanosis, or edema. BACK: Nontender without obvious deformity. No CVA tenderness. Procedures None A/P Problem List: (1) Accelerated hypertension ICD Code: I10 - Essential (primary) hypertension (2) ESRD (end stage renal disease) on dialysis ICD Code: N18.6 - End stage renal disease; Z99.2 - Dependence on renal dialysis Status: Chronic (3) HTN (hypertension) ICD Code: I10 - Essential (primary) hypertension Status: Chronic Assessment and Plan Ms. Carnes is a pleasant 52-year-old female with a history of hypertension, ESRD currently on dialysis Friday and Friday who presents to the emergency department today due to 2 day duration of nausea and vomiting. Patient denies any chest pain, shortness of breath, fever or chills. She denies any abdominal pain, diarrhea or constipation. No blood in the vomitus. Nausea and vomiting Etiology unknown. We will continue patient on normal saline 100 cc/h. Continue Zofran as needed and other nausea medications. Patient does not have any focal neurological deficits. Accelerated hypertension Probably due to nausea vomiting and inability to take antihypertensive medications. Patient takes clonidine 0.1 mg 3 times daily. This accelerated hypertension could be due to rebound hypertension related to clonidine. Blood pressure continues to be significantly elevated. Continue nifedipine 60 mg every 12, Increase hydralazine 50 --> 100 mg every 8, carvedilol 12.5 mg every 12 hours. Due to nausea vomiting oral medications would be unreliable. Continue clonidine 0.1mg patch. End-stage renal disease Patient received dialysis on , 09/04/2017. Nephrology is following. Full code. SCDs for now. David Randall DO Sep 06, 2017 8:39 am
[2017-09-06] MEDS: ONDANSETRON HCL 4 MG/2 ML VIAL IV PUSH PRN ×2 (09:45→12:46)
--- NOTE | 2017-09-06 10:54 | PD.CONS ---
HPI Service Nephrology Consult Requested By Dr. Randall Reason for Consult End-stage renal disease Primary Care Physician No Primary Care Physician History of Present Illness Patient is a 52-year-old female with history of diabetes, end-stage renal disease on hemodialysis, she developed nausea and vomiting, could not make to dialysis on Friday but was able to go on , had nausea and vomiting persist and she developed weakness tiredness increasing shortness of breath and she presented with these symptoms to emergency and was admitted. Patient follows with Dr. Medley. Review of Systems Constitutional: COMPLAINS OF: Fatigue Respiratory: COMPLAINS OF: Shortness of breath Gastrointestinal: COMPLAINS OF: Nausea, Vomiting Psychiatric: COMPLAINS OF: Anxiety Past Family Social History Allergies: Coded Allergies: pregabalin (Verified Allergy, Severe, Anaphylaxis, 05/31/17) *MDRO Multi-Drug Resistant Organism (Verified Adverse Reaction, Unknown, 05/31/17) MRSA (sputum)-07/20/16 MRSA PCR Screen POSITIVE - 07/18/2016 Past Medical History Diabetes Nephrotic syndrome Hypertension ESRD Anemia Secondary hyperparathyroidism Obesity Past Surgical History AV fistula placement Heart catheterization Reported Medications Reported Meds & Active Scripts Active Nifedipine ER 24 HR (Nifedipine) 60 Mg Tab 60 Mg PO Q12HR Coreg (Carvedilol) 6.25 Mg Tab 12.5 Mg PO BID Hydralazine HCl 50 Mg Tablet 50 Mg PO Q8HR Catapres (Clonidine) 0.1 Mg Tab 0.1 Mg PO TID Neurontin (Gabapentin) 300 Mg Cap 300 Mg PO DAILY Reported Ferrous Sulfate DR (Ferrous Sulfate) 325 Mg Tabdr 1 Tab PO BID Lisinopril 20 Mg Tab 20 Mg PO DAILY Lasix (Furosemide) 20 Mg Tab 20 Mg PO BID Omeprazole 20 Mg Tab 20 Mg PO DAILY Active Ordered Medications Current Medications Medications (Trade) Dose Ordered Sig/Christa Route Start Time Stop Time Status Last Admin (NS Flush) 2 ml UNSCH PRN IV FLUSH 09/05/17 18:45 (NS Flush) 2 ml BID IV FLUSH 09/05/17 21:00 09/06/17 14:42 (Tylenol) 650 mg Q4H PRN PO 09/05/17 18:45 (Zofran Inj) 4 mg Q6H PRN IVP 09/05/17 18:45 09/06/17 04:53 (Restoril) 15 mg HS PRN PO 09/05/17 18:45 (Narcan Inj) 0.4 mg UNSCH PRN IV PUSH 09/05/17 18:45 (Milk Of Magnesia Liq) 30 ml Q12H PRN PO 09/05/17 18:45 (Senokot) 17.2 mg Q12H PRN PO 09/05/17 18:45 (Dulcolax Supp) 10 mg DAILY PRN RECTAL 09/05/17 18:45 (Lactulose Liq) 30 ml DAILY PRN PO 09/05/17 18:45 (Coreg) 12.5 mg BID PO 09/05/17 21:00 09/06/17 12:39 (Lasix) 20 mg BID PO 09/05/17 21:00 09/06/17 12:39 (Neurontin) 300 mg DAILY PO 09/06/17 09:00 09/06/17 12:38 (Procardia Xl) 60 mg Q12HR PO 09/05/17 21:00 09/06/17 12:44 (Ferrous Sulfate) 325 mg BID PO 09/05/17 21:00 09/06/17 12:39 (Protonix) 20 mg DAILY PO 09/06/17 09:00 09/06/17 12:39 Sodium Chloride 1,000 ml @ 0 mls/hr Q0M PRN OTHER 09/05/17 19:33 09/06/17 09:46 (Heparin Inj) 8,000 units UNSCH PRN IV FLUSH 09/05/17 19:45 Sodium Chloride 1,000 ml @ 200 mls/hr Q5H PRN IV 09/05/17 19:33 Sodium Chloride 1,000 ml @ 0 mls/hr Q0M PRN OTHER 09/05/17 19:33 (Mannitol Inj) 12.5 gm UNSCH PRN IV 09/05/17 19:45 Albumin Human 100 ml @ 60 mls/hr UNSCH PRN IV 09/05/17 19:45 (NS Flush) 5 ml UNSCH PRN IV FLUSH 09/05/17 19:45 (Zofran Inj) 4 mg UNSCH PRN IV PUSH 09/05/17 19:45 09/06/17 12:46 (Tylenol) 650 mg UNSCH PRN PO 3/23/18 19:45 (Benadryl) 25 mg UNSCH PRN PO 09/05/17 19:45 (Nitrostat Sl) 0.4 mg UNSCH PRN SL 09/05/17 19:45 (Catapres) 0.1 mg UNSCH PRN PO 09/05/17 19:45 (Gelfoam 12 Mm/7 Mm Top) 1 foam UNSCH PRN TOP 09/05/17 19:45 09/06/17 09:45 Miscellaneous Information 1 ONCE ONCE T-DERMAL 09/12/17 20:00 09/12/17 20:01 (Reglan Inj) 5 mg Q6H PRN IV PUSH 09/05/17 22:15 09/06/17 05:57 (Compazine Supp) 25 mg Q12H PRN RECTAL 09/05/17 22:15 (Apresoline) 100 mg Q8HR PO 09/06/17 22:00 Family History Noncontributory Social History Denies smoking or alcohol use Physical Exam Vital Signs Vital Signs Date Time Temp Pulse Resp B/P (MAP) Pulse Ox O2 Delivery O2 Flow Rate FiO2 09/06/17 06:02 79 09/06/17 05:48 78 09/06/17 04:40 98.6 77 197/94 (128) 97 09/06/17 04:34 09/06/17 04:20 76 09/06/17 00:37 74 18 154/76 (102) 97 Room Air 09/05/17 20:36 96 09/05/17 20:22 79 18 186/90 (122) 98 Room Air 09/05/17 18:45 87 17 215/97 (136) 96 Room Air 09/05/17 18:27 84 17 237/116 (156) 100 Room Air 09/05/17 17:53 83 17 239/121 (160) 96 Room Air 09/05/17 17:09 83 17 248/124 (165) 98 Room Air 09/05/17 16:38 84 18 241/160 (187) 97 Room Air 09/05/17 16:34 96 Room Air 09/05/17 14:40 98.1 85 16 235/115 (155) 99 Physical Exam GENERAL: Well-nourished, well-developed patient. SKIN: Warm and dry. HEAD: Normocephalic. EYES: No scleral icterus. No injection or drainage. NECK: Supple, trachea midline. No JVD or lymphadenopathy. CARDIOVASCULAR: Regular rate and rhythm without murmurs, gallops, or rubs. RESPIRATORY: Breath sounds diminished at bases. GASTROINTESTINAL: Abdomen soft, non-tender, nondistended. EXTREMITIES: No cyanosis, 1+ edema. NEUROLOGICAL: Awake, alert, and oriented x 3. Non-focal. Laboratory Laboratory Tests Test 09/05/17 16:30 White Blood Count 3.5 Red Blood Count 4.75 Hemoglobin 13.1 Hematocrit 38.9 Mean Corpuscular Volume 81.8 Mean Corpuscular Hemoglobin 27.5 Mean Corpuscular Hemoglobin Concent 33.7 Red Cell Distribution Width 16.1 Platelet Count 113 Mean Platelet Volume 10.1 Neutrophils (%) (Auto) 71.1 Lymphocytes (%) (Auto) 17.3 Monocytes (%) (Auto) 9.5 Eosinophils (%) (Auto) 1.1 Basophils (%) (Auto) 1.0 Neutrophils # (Auto) 2.5 Lymphocytes # (Auto) 0.6 Monocytes # (Auto) 0.3 Eosinophils # (Auto) 0.0 Basophils # (Auto) 0.0 CBC Comment DIFF FINAL Differential Comment Prothrombin Time 12.4 Prothromb Time International Ratio 1.2 Activated Partial Thromboplast Time 25.4 Blood Urea Nitrogen 38 Creatinine 6.18 Random Glucose 111 Total Protein 7.7 Albumin 3.4 Calcium Level 9.0 Phosphorus Level 5.4 Magnesium Level 2.1 Alkaline Phosphatase 85 Aspartate Amino Transf (AST/SGOT) 14 Alanine Aminotransferase (ALT/SGPT) 16 Total Bilirubin 0.9 Sodium Level 144 Potassium Level 5.1 Chloride Level 107 Carbon Dioxide Level 25.6 Anion Gap 11 Estimat Glomerular Filtration Rate 7 Total Creatine Kinase 157 Creatine Kinase MB 3.9 Troponin I 0.15 Result Diagram: 09/05/17 1630 09/05/17 1630 Imaging Last Impressions Chest X-Ray 09/05/17 0000 Signed Impressions: Service Date/Time: Tuesday, September 05, 2017 15:59 - CONCLUSION: Compensated cardiomegaly otherwise negative Zia Mortensen MD FACR Assessment and Plan Problem List: (1) ESRD (end stage renal disease) on dialysis ICD Codes: N18.6 - End stage renal disease; Z99.2 - Dependence on renal dialysis Status: Chronic Plan: Patient seen during dialysis tolerating it well UF 2 L as tolerated feels sick and tired Patient is on Friday, and Friday schedule Follows with Dr. Medley (2) Vomiting ICD Codes: R11.10 - Vomiting, unspecified Status: Acute Plan: Continue to monitor (3) HTN (hypertension) ICD Codes: I10 - Essential (primary) hypertension Status: Chronic Plan: Continue to monitor (4) Diabetes ICD Codes: E11.9 - Type 2 diabetes mellitus without complications Status: Chronic Plan: Monitoring blood glucose Problem Qualifiers (1) Vomiting: Qualified Codes: R11.2 - Nausea with vomiting, unspecified (2) HTN (hypertension): Qualified Codes: I10 - Essential (primary) hypertension (3) Diabetes: Ebony Garcia MD Sep 06, 2017 10:54
[2017-09-06] MEDS: GABAPENTIN 300 MG CAP PO SCH (12:38)
[2017-09-06] MEDS: FUROSEMIDE 20 MG TAB PO SCH ×2 (12:39→21:59)
[2017-09-06] MEDS: CARVEDILOL 6.25 MG TAB PO SCH ×2 (12:39→21:59)
[2017-09-06] MEDS: FERROUS SULFATE 325 MG (65 MG ELEMENTAL IRON) TAB PO SCH ×2 (12:39→21:59)
[2017-09-06] MEDS: PANTOPRAZOLE SOD 20 MG DELAYED RELEASE TAB PO SCH (12:39)
[2017-09-06] MEDS: NIFEdipine 60 MG SUSTAINED RELEASE TAB PO SCH ×2 (12:44→21:59)
[2017-09-06 12:55] LABS: BASOPHIL % 0.9 % (0.0-2.0); EOSINOPHIL % 0.3 % (0.0-4.0); HEMATOCRIT 36.6 % (35.0-46.0); HEMOGLOBIN 12.3 GM/DL (11.6-15.3); LYMPH % 16.2 % (9.0-44.0); LYMPHOCYTE # 0.7 TH/MM3 (1.0-4.8); MEAN CELL VOLUME 82.1 FL (80.0-100.0); MEAN CORPUSCULAR HEMOGLOBIN 27.7 PG (27.0-34.0); MEAN CORPUSCULAR HGB CONC 33.8 % (32.0-36.0); MEAN PLATELET VOLUME 10.3 FL (7.0-11.0); MONO % 10.4 % (0.0-8.0); MONOCYTE # 0.4 TH/MM3 (0-0.9); NEUT % 72.2 % (16.0-70.0); PLATELET COUNT 128 TH/MM3 (150-450); RED BLOOD COUNT 4.45 MIL/MM3 (4.00-5.30); RED CELL DISTRIBUTION WIDTH 15.8 % (11.6-17.2); WHITE BLOOD COUNT 4.2 TH/MM3 (4.0-11.0)
[2017-09-06 13:19] LABS: BICARBONATE 29.4 MEQ/L (21.0-32.0); CALCIUM 9.1 MG/DL (8.5-10.1); CREATININE 4.07 MG/DL (0.50-1.00)
[2017-09-06] MEDS: SODIUM CHLORIDE 0.9% FLUSH 10 ML FLUSH IV FLUSH SCH ×2 (14:42→21:00)
[2017-09-06] MEDS ORDERED: DEXTROSE 50% IN WATER 50 ML VIAL(D50) IV PUSH PRN (15:30)
[2017-09-06] MEDS ORDERED: GLUCAGON 1 MG/ML VIAL OTHER PRN (15:30)
[2017-09-06] MEDS: INSULIN ASPART SUPPLEMENTAL SCALE SQ SCH ×2 (17:00→21:00)
[2017-09-06] MEDS: hydrALAZINE HCL 100 MG TAB PO SCH (21:59)
[2017-09-07] VITALS (15 sets, daily range): BP systolic 144–169; BP diastolic 73–86; PULSE 59–70; RESP 16; TEMP 98.2–98.3; O2SAT 92–99
[2017-09-07] MEDS: ONDANSETRON HCL 4 MG/2 ML VIAL IVP PRN (04:13)
[2017-09-07] MEDS: hydrALAZINE HCL 100 MG TAB PO SCH ×2 (06:06→13:58)
[2017-09-07] MEDS: INSULIN ASPART SUPPLEMENTAL SCALE SQ SCH ×2 (08:00→11:37)
[2017-09-07] MEDS: GABAPENTIN 300 MG CAP PO SCH (09:47)
[2017-09-07] MEDS: FERROUS SULFATE 325 MG (65 MG ELEMENTAL IRON) TAB PO SCH (09:47)
[2017-09-07] MEDS: SODIUM CHLORIDE 0.9% FLUSH 10 ML FLUSH IV FLUSH SCH (09:47)
[2017-09-07] MEDS: PANTOPRAZOLE SOD 20 MG DELAYED RELEASE TAB PO SCH (09:47)
[2017-09-07] MEDS: NIFEdipine 60 MG SUSTAINED RELEASE TAB PO SCH (09:47)
[2017-09-07] MEDS: CARVEDILOL 6.25 MG TAB PO SCH (09:47)
[2017-09-07] MEDS: FUROSEMIDE 20 MG TAB PO SCH (09:47)
[2017-09-07] MEDS ORDERED: HYDR-3801 PO (13:31)
[2017-09-07] MEDS ORDERED: CLON0.1D T-DERMAL (13:31)
[2017-09-07] MEDS ORDERED: ZOFR4TAB3 SL (13:31)
--- NOTE | 2017-09-07 13:32 | HHI.NPPN ---
Subjective History of Present Illness Patient is 52-year-old with ESRD, diabetes, hypertension who had nausea, she is feeling better Review of Systems General Constitutional: Fatigue Objective Data Data Vital Signs Date Time Temp Pulse Resp B/P (MAP) Pulse Ox O2 Delivery O2 Flow Rate FiO2 09/07/17 13:00 62 09/07/17 12:00 61 09/07/17 11:00 66 09/07/17 11:00 98.3 65 16 166/84 (111) 95 09/07/17 10:00 70 09/07/17 09:00 68 09/07/17 08:00 61 09/07/17 07:00 61 09/07/17 07:00 98.2 66 16 169/86 (113) 99 09/07/17 06:00 64 09/07/17 05:00 66 09/07/17 04:00 60 09/07/17 03:00 98.2 59 16 144/73 (96) 92 09/07/17 03:00 59 09/07/17 02:00 64 09/07/17 01:00 66 09/07/17 00:00 66 09/06/17 23:00 98.7 70 16 158/77 (104) 95 09/06/17 23:00 70 09/06/17 22:00 68 09/06/17 21:00 64 09/06/17 20:38 99 09/06/17 20:00 68 09/06/17 19:00 98.5 75 16 154/77 (102) 95 09/06/17 19:00 75 09/06/17 18:00 75 09/06/17 18:00 75 09/06/17 17:00 78 09/06/17 16:00 74 09/06/17 15:00 99.3 73 18 176/88 (117) 95 09/06/17 15:00 82 09/06/17 14:00 72 -: 09/06/17 1231 09/06/17 1231 Physical Exam General Appearance: Well Developed, Well Nourished Neck Neck Exam: Neck Supple Pulmonary Resp Exam: Clear Bilaterally, Breath Sounds Equal Cardiology CV Exam: Regular, Normal Sinus Rhythm Gastrointestinal/Abdomen GI Exam: Soft, Non-Tender, Bowel Sounds Present Extremeties Extremities Exam: No Edema Neurologic Neuro Exam: Alert Assessment/Plan Problem List: (1) ESRD (end stage renal disease) on dialysis ICD Codes: N18.6 - End stage renal disease; Z99.2 - Dependence on renal dialysis Status: Chronic Plan: Patient had hemodialysis yesterday and 4 L was removed feels much better Patient is on Friday, and Friday schedule Follows with Dr. Medley (2) Vomiting ICD Codes: R11.10 - Vomiting, unspecified Status: Acute Plan: Continue to monitor (3) HTN (hypertension) ICD Codes: I10 - Essential (primary) hypertension Status: Chronic Plan: Continue to monitor (4) Diabetes ICD Codes: E11.9 - Type 2 diabetes mellitus without complications Status: Chronic Plan: Monitoring blood glucose Problem Qualifiers (1) Vomiting: Qualified Codes: R11.2 - Nausea with vomiting, unspecified (2) HTN (hypertension): Qualified Codes: I10 - Essential (primary) hypertension (3) Diabetes: Ebony Garcia MD Sep 07, 2017 13:32
--- NOTE | 2017-09-07 13:35 | HHI.PR ---
Subjective Remarks Follow-up for nausea vomiting, hypertensive urgency. Patient is currently doing well. No fever, chills. Nausea, vomiting much improved. Tolerating diet well. Underwent hemodialysis on 09/06/2017. Objective Vitals Vital Signs Date Time Temp Pulse Resp B/P (MAP) Pulse Ox O2 Delivery O2 Flow Rate FiO2 09/07/17 13:00 62 09/07/17 12:00 61 09/07/17 11:00 66 09/07/17 11:00 98.3 65 16 166/84 (111) 95 09/07/17 10:00 70 09/07/17 09:00 68 09/07/17 08:00 61 09/07/17 07:00 61 09/07/17 07:00 98.2 66 16 169/86 (113) 99 09/07/17 06:00 64 09/07/17 05:00 66 09/07/17 04:00 60 09/07/17 03:00 98.2 59 16 144/73 (96) 92 09/07/17 03:00 59 09/07/17 02:00 64 09/07/17 01:00 66 09/07/17 00:00 66 09/06/17 23:00 98.7 70 16 158/77 (104) 95 09/06/17 23:00 70 09/06/17 22:00 68 09/06/17 21:00 64 09/06/17 20:38 99 09/06/17 20:00 68 09/06/17 19:00 98.5 75 16 154/77 (102) 95 09/06/17 19:00 75 09/06/17 18:00 75 09/06/17 18:00 75 09/06/17 17:00 78 09/06/17 16:00 74 09/06/17 15:00 99.3 73 18 176/88 (117) 95 09/06/17 15:00 82 09/06/17 14:00 72 I/O 09/06/17 09/06/17 09/06/17 09/07/17 09/07/17 09/07/17 07:00 15:00 23:00 07:00 15:00 23:00 Intake Total 480 ml 200 ml 240 ml Output Total 2000 ml 2100 ml 0 ml Balance 480 ml -2000 ml -1900 ml 240 ml Intake Oral 480 ml 200 ml 240 ml Output Urine Total 100 ml 0 ml Hemodialysis 2000 ml 2000 ml Result Diagram: 09/06/17 1231 09/06/17 1231 Objective Remarks GENERAL: Alert, oriented oriented 3, NAD. SKIN: Warm and dry. HEAD: Normocephalic. EYES: No scleral icterus. No injection or drainage. NECK: Supple, trachea midline. No JVD or lymphadenopathy. CARDIOVASCULAR: Regular rate and rhythm without murmurs, gallops, or rubs. RESPIRATORY: Breath sounds equal bilaterally. No accessory muscle use. GASTROINTESTINAL: Abdomen soft, non-tender, nondistended. MUSCULOSKELETAL: No cyanosis, or edema. BACK: Nontender without obvious deformity. No CVA tenderness. Procedures None A/P Problem List: (1) Accelerated hypertension ICD Code: I10 - Essential (primary) hypertension (2) ESRD (end stage renal disease) on dialysis ICD Code: N18.6 - End stage renal disease; Z99.2 - Dependence on renal dialysis Status: Chronic (3) HTN (hypertension) ICD Code: I10 - Essential (primary) hypertension Status: Chronic Assessment and Plan Ms. Carnes is a pleasant 52-year-old female with a history of hypertension, ESRD currently on dialysis Friday and Friday who presents to the emergency department today due to 2 day duration of nausea and vomiting. Patient denies any chest pain, shortness of breath, fever or chills. She denies any abdominal pain, diarrhea or constipation. No blood in the vomitus. Nausea and vomiting Etiology unknown, possibly related hypertensive urgency. Almost resolved. Patient is tolerating diet well. Will give Zofran ODT PRN upon discharge. Accelerated hypertension Probably due to nausea vomiting and inability to take antihypertensive medications. Patient takes clonidine 0.1 mg 3 times daily. This accelerated hypertension could be due to rebound hypertension related to clonidine. Blood pressure continues to be significantly elevated. Continue nifedipine 60 mg every 12, Increase hydralazine 50 --> 100 mg every 8, carvedilol 12.5 mg every 12 hours. Due to nausea vomiting oral medications would be unreliable. Continue clonidine 0.1mg patch. End-stage renal disease Patient received dialysis on 09/06/2017. She will resume outpatient dialysis. Discharge patient to home Condition on discharge: Improved Renal failure Diet as tolerated Ad Maddy activity Rx written: Clonidine 0.1mg Patch Zofran ODT Hydralazine 100mg TID Follow-up with primary care physician within one week. Problem Qualifiers (1) HTN (hypertension): Qualified Codes: I10 - Essential (primary) hypertension David Randall DO Sep 07, 2017 1:35 pm
[2017-09-12] MEDS ORDERED: REMOVE OLD PATCH T-DERMAL ONE (20:00)
== END 2017-09-07 14:10 | disposition home or self-care (01) | DRG 683 ==
LOC: NEPC 14:11 → NEDA 17:55 → HCPC 09-06 04:30
PROVIDERS: ADMIT Hospitalist; ATTEND Hospitalist
PROC: 5A1D70Z Performance of Urinary Filtration, Intermittent, Less than 6 Hours Per Day (ICD-10-PCS; principal; 2017-09-06)
DX: N18.6 End stage renal disease (principal); I16.1 Hypertensive emergency; I13.2 Hypertensive heart and chronic kidney disease with heart failure and with stage 5 chronic kidney disease, or end stage renal disease; N25.81 Secondary hyperparathyroidism of renal origin; E11.22 Type 2 diabetes mellitus with diabetic chronic kidney disease; R11.2 Nausea with vomiting, unspecified; I50.9 Heart failure, unspecified; K21.9 Gastro-esophageal reflux disease without esophagitis; E78.00 Pure hypercholesterolemia, unspecified; I25.10 Atherosclerotic heart disease of native coronary artery without angina pectoris; E78.5 Hyperlipidemia, unspecified; G47.33 Obstructive sleep apnea (adult) (pediatric); R06.02 Shortness of breath; F41.9 Anxiety disorder, unspecified; D64.9 Anemia, unspecified; E66.9 Obesity, unspecified; Z87.441 Personal history of nephrotic syndrome; Z99.2 Dependence on renal dialysis; Z86.73 Personal history of transient ischemic attack (TIA), and cerebral infarction without residual deficits; Z82.49 Family history of ischemic heart disease and other diseases of the circulatory system; Z83.3 Family history of diabetes mellitus; Z95.5 Presence of coronary angioplasty implant and graft; Z68.32 Body mass index [BMI] 32.0-32.9, adult; Z86.14 Personal history of Methicillin resistant Staphylococcus aureus infection
CPT/HCPCS: 71045; 80048; 80053; 82550; 82552; 82948; 83735; 84100; 84484; 85025; 85610; 85730; 90935; 96374; J0360; J2405; J2765; J7030

== ENCOUNTER → 2017-11-04 | Day surgery (SDC) | payer OTHER, MEDICARE ==
[~2017-11-04] VITALS: Ht 170.2 cm; Wt 87.8 kg
[~2017-11-04] MED LIST changes: +*morphine SULFATE 4 MG/ML PERIprocedure ONLY ONE; +ACETAMINOPHEN 1000 MG/100 ML 100 ML IV ONE; +ACETAMINOPHEN/HYDROcodone 325 MG/5 MG TAB PO PRN; +BUPIVACAINE/EPINEPHRINE 0.5% PF 10 ML VIAL ONE; +CHLORHEXIDINE GLUCONATE 2 % 1 PACK (2 CLOTHS) TOPICAL PRN; -CLON.1 PO; +CLON0.1D T-DERMAL; +DEXAMETHASONE SOD PHOS 4 MG/ML VIAL IV ONE; +DO NOT ADM ANY ANTICOAGULANT DRUGS PRN; +FAMOTIDINE 20 MG/2 ML VIAL ONE; +GLYCOPYRROLATE 1 MG/5 ML SYRINGE IV PUSH ONE; -HYDR-3800 PO; +HYDR-3801 PO; +INSULIN HUMAN REGULAR 1,000 UNITS/10 ML VIAL SQ PRN; +LACTATED RINGER'S 1000 ML IV PRN; +LIDOCAINE HCL 1% PF 5 ML SYRINGE OTHER ONE; +METOPROLOL TARTRATE 25 MG TAB PO PRN; +MIDAZOLAM HCL 2 MG/2 ML VIAL ONE; +NEOMYCIN/POLYMYXIN 1 ML G.U. IRRIGANT ONE; +NEOSTIGMINE 5 MG/5 ML SYRINGE IV PUSH ONE; +NORC5TAB PO; +ONDANSETRON HCL 4 MG/2 ML VIAL IV ONE; +ONDANSETRON ODT 4 MG TAB PO PRN; +POVIDONE IODINE 5% (ANTISEPSIS KIT) 4 APPLICATIONS EACH NARE PRN; +PROMETHAZINE INJ 25 MG/ML VIAL ONE; +PROPOFOL 200 MG/20 ML AMP IV ONE; +ROCURONIUM INJ 50 MG/5 ML SYRINGE IV PUSH ONE; +SODIUM CHLORID 0.9% 500 ML IV PRN; +ceFAZolin 2 GM/DEX PREMIX 50 ML IV SCH
[2017-11-04 12:21] LABS: AUTOMATED NEUTROPHIL # 4.1 TH/MM3 (1.8-7.7); BASOPHIL # 0.1 TH/MM3 (0-0.2); BASOPHIL % 0.9 % (0.0-2.0); EOSINOPHIL # 0.2 TH/MM3 (0-0.4); EOSINOPHIL % 3.5 % (0.0-4.0); HEMATOCRIT 37.3 % (35.0-46.0); HEMOGLOBIN 12.2 GM/DL (11.6-15.3); LYMPH % 10.9 % (9.0-44.0); LYMPHOCYTE # 0.6 TH/MM3 (1.0-4.8); MEAN CELL VOLUME 83.4 FL (80.0-100.0); MEAN CORPUSCULAR HEMOGLOBIN 27.2 PG (27.0-34.0); MEAN CORPUSCULAR HGB CONC 32.6 % (32.0-36.0); MEAN PLATELET VOLUME 8.8 FL (7.0-11.0); MONO % 12.8 % (0.0-8.0); MONOCYTE # 0.7 TH/MM3 (0-0.9); NEUT % 71.9 % (16.0-70.0); PLATELET COUNT 165 TH/MM3 (150-450); RED BLOOD COUNT 4.47 MIL/MM3 (4.00-5.30); RED CELL DISTRIBUTION WIDTH 15.2 % (11.6-17.2); WHITE BLOOD COUNT 5.6 TH/MM3 (4.0-11.0)
[2017-11-04 12:37] LABS: CREATININE 5.08 MG/DL (0.50-1.00)
--- NOTE | 2017-11-04 14:56 | PD.OP ---
cc: Emre Bird MD Operative Report Date of Surgery: November 04, 2017 Preoperative Diagnosis: Chronic kidney disease, desire for peritoneal dialysis Postoperative Diagnosis: Same Procedure: Laparoscopic assisted peritoneal dialysis catheter placement Anesthesia: General endotracheal Surgeon: Emre Bird Manager Background(s): Michelle Abdi Operation and Findings: Indications for procedure This is a pleasant 52-year-old woman who has been undergoing hemodialysis for over a year through a left upper extremity AV fistula. She has hypertension and diabetes. She desires peritoneal dialysis to potentially be able to complete dialysis at home. Intraoperative findings Successful placement of swan-neck catheter with curled portion of catheter in dependent portion of pelvis. Estimated blood loss Less than 5 mL. Description of procedure in detail Patient was identified as Rossana Carnes, taken to the operating room and placed in a supine position. Sequential compression device were placed on bilateral lower extremities. Following induction of adequate general endotracheal anesthesia the patient's abdomen was prepped and draped in usual sterile fashion with Betadine. A timeout procedure was performed. Following completion timeout procedure everyone's satisfaction within the room, local anesthetic was infiltrated the initial trocar site in the left lateral subcostal position. Incision was carried out the scalpel. Dissection new posteriorly to lower abdominal wall. Fascia was very tough. The only way to traverse the fascia was with the scalpel. Underlying muscle spread. The intervening fascia was incised with a scalpel and the muscle spread. Peritoneum was entered with the surgeon's finger. The applied medical 5 mm blunt-tipped balloon Mann trocar was placed in the peritoneal cavity its balloon inflated, and CO2 insufflation to level 50 mmHg ensued. A left lateral 5 mm trochars placed in the peritoneal cavity under direct laparoscopic view after incision the skin with a scalpel and infiltration of local anesthetic. She was placed in a Trendelenburg position. There are no intra-abdominal adhesions precluding placement of the catheter into the dependent portion of the pelvis between the uterus and the rectum. Site inferior to the umbilicus the right of midline was selected local anesthetic was placed and a 5 mm trocar was placed in the preperitoneal place tunneling it in the preperitoneal space to above the dome of the bladder entering the peritoneum several centimeters above the dome of the bladder. The curled portion of the peritoneal dialysis catheter was placed through this trocar down into the dependent portion of the pelvis making the distal cloth cuff in the preperitoneal space. Catheter was not kinked. Local anesthetic was then infiltrated along the proposed line of subcutaneous tunneling for the peritoneal dialysis catheter. Site superior to the umbilicus was selected a counterincision was made in the distal portion of the catheter was tunneled to the skin incision site. The swan-neck portion of the catheter with 2 clamps was then tunneled from a counter incision site to this incision site. Distal portion of the catheter to its marked exit site with an X in the right upper quadrant was then tunneled using the Jony dilator. The intervening segments were cut to an appropriate length and connected with a titanium connector and 2- 0 silk ties. The titanium caps were then placed onto the catheter. A liter fluid was then run through the catheter without any obstruction. About 700 cc of fluid was returned and the remaining 300 cc left in the pelvis. Plastic cap was placed over the titanium tip. Trochars removed under direct visualization was notes a bleeding from trocar sites. The abdomen was actively desufflated to the left lateral 5 mm trocar prior to its removal. Posterior and anterior fascial layers were closed with single 0 Vicryl [id number] sutures. Skin incisions were approximated with 4-0 Monocryl subcuticular sutures. Dressings were applied with Mastisol half-inch brown Steri-Strips. A Biopatch was placed around the peritoneal dialysis catheter exit site. 4 x 4's and a large Tegaderm occlusive dressing was then placed over the catheter covering it in its entirety. The patient tolerated the procedure without apparent complication. Sponge needle and instrument counts were correct at the end of the case. Patient was transported to PACU in stable condition. Emre Bird MD November 04, 2017 14:56
[2017-11-04 16:00] VITALS: BP 183/92; PULSE 57; RESP 16; TEMP 97.5; O2SAT 95
== END | disposition home or self-care (01) ==
LOC: HSDC 11:09
PROVIDERS: ATTEND Surgery Trauma Surgery
DX: N18.6 End stage renal disease (principal); I12.0 Hypertensive chronic kidney disease with stage 5 chronic kidney disease or end stage renal disease; E11.22 Type 2 diabetes mellitus with diabetic chronic kidney disease; Z99.2 Dependence on renal dialysis; Z79.84 Long term (current) use of oral hypoglycemic drugs
CPT/HCPCS: 00790; 49324; 80048; 85025; J0131; J0690; J1100; J2250; J2270; J2405; J2550; J2710; J3010; J7040

== ENCOUNTER 2017-12-10 12:45 | Emergency (ER) | payer OTHER, MEDICARE ==
[~2017-12-10] VITALS: Ht 172.7 cm; Wt 87.0 kg
[~2017-12-10 12:45] MED LIST changes: -*morphine SULFATE 4 MG/ML PERIprocedure ONLY ONE; -ACETAMINOPHEN 1000 MG/100 ML 100 ML IV ONE; -ACETAMINOPHEN/HYDROcodone 325 MG/5 MG TAB PO PRN; -BUPIVACAINE/EPINEPHRINE 0.5% PF 10 ML VIAL ONE; -CHLORHEXIDINE GLUCONATE 2 % 1 PACK (2 CLOTHS) TOPICAL PRN; -DEXAMETHASONE SOD PHOS 4 MG/ML VIAL IV ONE; -DO NOT ADM ANY ANTICOAGULANT DRUGS PRN; -FAMOTIDINE 20 MG/2 ML VIAL ONE; -GLYCOPYRROLATE 1 MG/5 ML SYRINGE IV PUSH ONE; -INSULIN HUMAN REGULAR 1,000 UNITS/10 ML VIAL SQ PRN; -LACTATED RINGER'S 1000 ML IV PRN; -LIDOCAINE HCL 1% PF 5 ML SYRINGE OTHER ONE; -METOPROLOL TARTRATE 25 MG TAB PO PRN; -MIDAZOLAM HCL 2 MG/2 ML VIAL ONE; -NEOMYCIN/POLYMYXIN 1 ML G.U. IRRIGANT ONE; -NEOSTIGMINE 5 MG/5 ML SYRINGE IV PUSH ONE; -ONDANSETRON HCL 4 MG/2 ML VIAL IV ONE; -ONDANSETRON ODT 4 MG TAB PO PRN; -POVIDONE IODINE 5% (ANTISEPSIS KIT) 4 APPLICATIONS EACH NARE PRN; -PROMETHAZINE INJ 25 MG/ML VIAL ONE; -PROPOFOL 200 MG/20 ML AMP IV ONE; -ROCURONIUM INJ 50 MG/5 ML SYRINGE IV PUSH ONE; -SODIUM CHLORID 0.9% 500 ML IV PRN; -ceFAZolin 2 GM/DEX PREMIX 50 ML IV SCH
[2017-12-10 13:00] VITALS: BP 151/74; PULSE 65; RESP 16; TEMP 98.5; O2SAT 99
[2017-12-10 13:07] VITALS: BP 151/74; PULSE 65; RESP 18; TEMP 98.5; O2SAT 97
[2017-12-10 13:20] VITALS: BP 169/83; PULSE 65; RESP 17; TEMP 98.3; O2SAT 96
--- NOTE | 2017-12-10 13:30 | PD ---
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 Said she still feels a little numb in left lower face but symptoms are improving. Denies any fever, chest pain, sob, n/v, abdominal pain, new focal weakness, difficulty speaking, vision changes. PFSH Past Medical History Hx Anticoagulant Therapy: Yes Arthritis: No Asthma: No Autoimmune Disease: No Blood Disorders: No Anxiety: Yes Depression: Yes Heart Rhythm Problems: No Cancer: No Cardiovascular Problems: Yes High Cholesterol: Yes Chemotherapy: No Chest Pain: No Congestive Heart Failure: Yes COPD: No Cerebrovascular Accident: Yes Diabetes: No Diminished Hearing: No Endocrine: Yes GERD: Yes Genitourinary: Yes (ESRD WITH DIALYSIS peritoneal) Hepatitis: No Hiatal Hernia: No Hypertension: Yes Immune Disorder: No Implanted Vascular Access Dvce: Yes Kidney Stones: No Musculoskeletal: Yes (ARTHRITIS) Neurologic: Yes (POOR BALANCE) Psychiatric: Yes Reproductive: No Respiratory: No Immunizations Current: No Migraines: No Radiation Therapy: No Renal Failure: Yes (d/t dye for cardiac stent insertions- DIALYSIS Q3 DAYS) Seizures: No Sickle Cell Disease: No Sleep Apnea: Yes Thyroid Disease: No Ulcer: No ?: Not Menopausal: Yes : 3 Para: 3 Miscarriage: 0 Past Surgical History Abdominal Surgery: No AICD: No Arteriovenous Shunt: No Body Medical Devices: left arm fistula Cardiac Surgery: Yes (STENTS (2) FISTULA LUE PLACEMENT ) Section: Yes Ear Surgery: No Endocrine Surgery: No Eye Surgery: No Genitourinary Surgery: No Gynecologic Surgery: Yes (c section ) Insulin Pump: No Joint Replacement: No Oral Surgery: No Pacemaker: No Thoracic Surgery: No Other Surgery: Yes (CARDIAC CATH 2015) Social History Alcohol Use: No Tobacco Use: No Substance Use: No Allergies-Medications (Allergen,Severity, Reaction): Coded Allergies: pregabalin (Verified Allergy, Severe, Anaphylaxis, 12/10/17) *MDRO Multi-Drug Resistant Organism (Verified Adverse Reaction, Unknown, ) MRSA (sputum)-07/20/16 MRSA PCR Screen POSITIVE - 07/18/2016 Reported Meds & Prescriptions Reported Meds & Active Scripts Active Clonidine 168 HR Patch (Clonidine HCl) 0.1 Mg/24 Hr Patch 1 Patch T-DERMAL Q7D Hydralazine (Hydralazine HCl) 100 Mg Tab 100 Mg PO Q8HR Take with meals Nifedipine ER 24 HR (Nifedipine) 60 Mg Tab 60 Mg PO Q12HR Coreg (Carvedilol) 6.25 Mg Tab 12.5 Mg PO BID Reported Ferrous Sulfate DR (Ferrous Sulfate) 325 Mg Tabdr 1 Tab PO BID Lisinopril 20 Mg Tab 20 Mg PO DAILY Lasix (Furosemide) 20 Mg Tab 40 Mg PO BID Review of Systems Except as stated in HPI: all other systems reviewed are Neg Physical Exam Narrative GENERAL: 52yo F in mild distress. SKIN: Focused skin assessment warm/dry. HEAD: Atraumatic. Normocephalic. EYES: Pupils equal and round at 3mm bilaterally. EOMI. ENT: No nasal bleeding or discharge. Mucous membranes pink and moist. NECK: Trachea midline. No JVD. CARDIOVASCULAR: Regular rate and rhythm. No murmur appreciated. RESPIRATORY: No accessory muscle use. Clear to auscultation. Breath sounds equal bilaterally. GASTROINTESTINAL: Abdomen soft, non-tender, nondistended. MUSCULOSKELETAL: No obvious deformities. No clubbing. No cyanosis. No edema. NEUROLOGICAL: Awake and alert. Decreased sensation in left V2, V3. LLE muscle strength is 4/5 compare to 5/5 in RLE. Sensation equal in all extremities. Pt is adamant that the left leg weakness is not new. Normal speech. PSYCHIATRIC: Appropriate mood and affect; insight and judgment normal. Data Data Last Documented VS Vital Signs Date Time Temp Pulse Resp B/P (MAP) Pulse Ox O2 Delivery O2 Flow Rate FiO2 12/10/17 13:20 98.3 65 17 169/83 (111) 96 Room Air Orders Orders Ct Brain W/O Iv Contrast(Rout) (12/10/17 ) Complete Blood Count With Diff (12/10/17 13:25) Basic Metabolic Panel (Bmp) (12/10/17 13:25) Prothrombin Time / Inr (Pt) (12/10/17 13:25) Act Partial Throm Time (Ptt) (12/10/17 13:25) Electrocardiogram (12/10/17 13:25) Labs Laboratory Tests Test 12/10/17 13:30 White Blood Count 4.3 TH/MM3 Red Blood Count 4.81 MIL/MM3 Hemoglobin 13.1 GM/DL Hematocrit 40.7 % Mean Corpuscular Volume 84.6 FL Mean Corpuscular Hemoglobin 27.2 PG Mean Corpuscular Hemoglobin Concent 32.2 % Red Cell Distribution Width 15.7 % Platelet Count 217 TH/MM3 Mean Platelet Volume 9.5 FL Neutrophils (%) (Auto) 62.7 % Lymphocytes (%) (Auto) 17.9 % Monocytes (%) (Auto) 11.7 % Eosinophils (%) (Auto) 6.5 % Basophils (%) (Auto) 1.2 % Neutrophils # (Auto) 2.7 TH/MM3 Lymphocytes # (Auto) 0.8 TH/MM3 Monocytes # (Auto) 0.5 TH/MM3 Eosinophils # (Auto) 0.3 TH/MM3 Basophils # (Auto) 0.1 TH/MM3 CBC Comment DIFF FINAL Differential Comment Prothrombin Time 11.6 SEC Prothromb Time International Ratio 1.1 RATIO Activated Partial Thromboplast Time 25.2 SEC Blood Urea Nitrogen 43 MG/DL Creatinine 8.28 MG/DL Random Glucose 103 MG/DL Calcium Level 8.5 MG/DL Sodium Level 145 MEQ/L Potassium Level 4.5 MEQ/L Chloride Level 108 MEQ/L Carbon Dioxide Level 25.2 MEQ/L Anion Gap 12 MEQ/L Estimat Glomerular Filtration Rate 5 ML/MIN MDM Medical Decision Making Medical Screen Exam Complete: Yes Emergency Medical Condition: Yes Interpretation(s) EKG: NSR 65bpm. LAD. No significant ST elevation or depression. TWI I, aVL. Differential Diagnosis TIA vs. lacunar infarct Narrative Course 52yo F with PMH of ESRD on peritoneal dialysis here with c/o left facial tingling/numbness. Pt's symptoms was rapidly resolving and impression is more TIA. Labs reviewed, no leukocytosis. H/H normal. BUN/creatinine elevated at 43/8.28 which is worst than prior. CT brain negative for acute process. Moderate vertebrobasilar calcifications. I planned to admit pt for TIA but pt is adamant about not staying. Pt said her facial numbness/tingling has resolved. Pt is signing out against medical advice. AMA: The risks of leaving against medical advice without further evaluation treatment were discussed with the patient. These risks include cardiac dysfunction, cardiac dysrhythmia, possible heart attack, possible stroke or . The patient indicated understanding of these risks and appeared to have the capacity to make this decision. Diagnosis Primary Impression: TIA (transient ischemic attack) Qualified Codes: G45.9 - Transient cerebral ischemic attack, unspecified Patient Instructions: General Instructions Departure Forms: Tests/Procedures Additional Instructions: Please follow up with your primary care physician. Return to the ED if you change your mind or symptoms worsen. Med/Other Pt SpecificInfo: No Change to Meds Disposition: 07 AGAINST MEDICAL ADVICE Condition: Stable Khadijah Berrios DO Dec 10, 2017 13:30
[2017-12-10 14:18] LABS: AUTOMATED NEUTROPHIL # 2.7 TH/MM3 (1.8-7.7); BASOPHIL # 0.1 TH/MM3 (0-0.2); BASOPHIL % 1.2 % (0.0-2.0); EOSINOPHIL # 0.3 TH/MM3 (0-0.4); EOSINOPHIL % 6.5 % (0.0-4.0); HEMATOCRIT 40.7 % (35.0-46.0); HEMOGLOBIN 13.1 GM/DL (11.6-15.3); LYMPH % 17.9 % (9.0-44.0); LYMPHOCYTE # 0.8 TH/MM3 (1.0-4.8); MEAN CELL VOLUME 84.6 FL (80.0-100.0); MEAN CORPUSCULAR HEMOGLOBIN 27.2 PG (27.0-34.0); MEAN CORPUSCULAR HGB CONC 32.2 % (32.0-36.0); MEAN PLATELET VOLUME 9.5 FL (7.0-11.0); MONO % 11.7 % (0.0-8.0); MONOCYTE # 0.5 TH/MM3 (0-0.9); NEUT % 62.7 % (16.0-70.0); PLATELET COUNT 217 TH/MM3 (150-450); RED BLOOD COUNT 4.81 MIL/MM3 (4.00-5.30); RED CELL DISTRIBUTION WIDTH 15.7 % (11.6-17.2); WHITE BLOOD COUNT 4.3 TH/MM3 (4.0-11.0)
[2017-12-10 14:26] LABS: INTERNATIONAL NORMALIZED RATIO 1.1 RATIO; PROTHROMBIN TIME - PATIENT 11.6 SEC (9.8-11.6)
--- NOTE | 2017-12-10 15:00 | RADRPT ---
EXAM DATE: 12/10/2017 2:57 PM EDT AGE/SEX: 52 years / Female INDICATIONS: Intermittent left facial numbness. CLINICAL DATA: This is the patient's initial encounter. Patient reports that signs and symptoms have been present for 1 day and indicates a pain score of 0/10. MEDICAL/SURGICAL HISTORY: Cardiovascular disease. Hypertension. None. RADIATION DOSE: 45.32 CTDI (mGy) COMPARISON: . TECHNIQUE: CT of the head without contrast. Using automated exposure control and adjustment of the mA and/or kV according to patient size, radiation dose was kept as low as reasonably achievable to ob tain optimal diagnostic quality images. FINDINGS: Cerebrum: The ventricles are normal for age. No evidence of midline shift, mass lesion, hemorrhage or acute infarction. No extraaxial fluid collections are seen. Posterior Fossa: The cerebellum and brainstem are intact. The 4th ventricle is midline. The cerebe llopontine angle is unremarkable. Extracranial: The visualized portion of the orbits is intact. Skull: The calvaria is intact. No evidence of skull fracture. Moderate vertebral basilar calcificat ions CONCLUSION: 1. Negative for acute process. Moderate vertebrobasilar calcifications. Electronically signed by: Zia Mortensen MD 12/10/2017 2:59 PM EDT
[2017-12-10 15:05] LABS: CREATININE 8.28 MG/DL (0.50-1.00)
[2017-12-10 15:06] LABS: BICARBONATE 25.2 MEQ/L (21.0-32.0); CALCIUM 8.5 MG/DL (8.5-10.1)
[2017-12-10] MEDS ORDERED: ASPIRIN 325 MG TAB PO ONE (16:15)
[2017-12-10 16:44] VITALS: BP 170/88; PULSE 65; RESP 17; O2SAT 97
--- NOTE | 2017-12-11 19:27 | EKG ---
Date Performed: 12/10/2017 Time Performed: 13:25:16 PTAGE: 52 years EKG: Sinus rhythm MARKED LEFT AXIS DEVIATION POSSIBLE ANTERIOR MYOCARDIAL INFARCTION MODERATE T-WAVE ABNORMALITY, CONS IDER LATERAL ISCHEMIA ABNORMAL ECG PREVIOUS TRACING : 08/18/2017 15.58 Since the previous tracing, no significant change noted DOCTOR: Que Singh Interpretating Date/Time 12/11/2017 19:26:21
== END 2017-12-10 16:57 | disposition left against medical advice (07) ==
LOC: NEPC 12:45
DX: G45.9 Transient cerebral ischemic attack, unspecified (principal); R94.31 Abnormal electrocardiogram [ECG] [EKG]; I50.9 Heart failure, unspecified; I13.2 Hypertensive heart and chronic kidney disease with heart failure and with stage 5 chronic kidney disease, or end stage renal disease; N18.6 End stage renal disease; F41.8 Other specified anxiety disorders; E78.00 Pure hypercholesterolemia, unspecified; K21.9 Gastro-esophageal reflux disease without esophagitis; M19.90 Unspecified osteoarthritis, unspecified site; Z53.21 Procedure and treatment not carried out due to patient leaving prior to being seen by health care provider; Z79.01 Long term (current) use of anticoagulants; Z99.2 Dependence on renal dialysis
CPT/HCPCS: 70450; 80048; 85025; 85610; 85730; 93005; 99285